=== PATIENT | female | born 1955 | race Caucasian/White ===

== ENCOUNTER 2022-10-26 07:26 | Day surgery (SDC) | payer MEDICARE, SELFPAY ==
[2022-10-26 08:29] VITALS: BP 143/75; PULSE 59; RESP 16; TEMP 36.2
[2022-10-26 08:59] VITALS: BP 149/66; PULSE 55; RESP 20; O2SAT 97
[2022-10-26] MEDS: LIDOCAINE HCL 2% PF 100 MG/5 ML VIAL INJ (09:00)
[2022-10-26] MEDS: BUPIVACAINE HCL 0.25% PF 25 MG/10 ML VIAL INJ (09:00)
[2022-10-26] MEDS: 0.9 % SODIUM CHLORIDE 10 ML SYRINGE - SALINE FLUSH INJ (09:00)
[2022-10-26] MEDS: IOHEXOL 240 MG/ML - 10 ML VIAL INJ (09:00)
[2022-10-26] MEDS: METHYLPREDNISOLONE ACETATE 40 MG/ML VIAL INJ (09:04)
[2022-10-26 09:06] VITALS: BP 136/65; PULSE 51; RESP 20; O2SAT 92
--- NOTE | 2022-10-26 11:30 | W.PM.PROCNOT ---
Date of procedure: 10/26/22 Procedure: Procedure:Bilateral Hip joint injection Pre & postoperative diagnosis: pain secondary to bilateral hip osteoarthritis. Immediate complications none. Anesthesia: 2% lidocaine plain for skin wheal. After informed consent was obtained, patient brought to the OR placed in the supine position.? Skin overlying the area was prepped and draped using betadine. 25-gauge 1/2 inch needle was used for skin wheal over the medial aspect of the joint identified under fluoroscopy.? Omnipaque dye was used to confirm needle tip placement within the hip joint space 0.5 mL use of the injection.? Subsequently Depomedrol 40mg and Marcaine 0.25% 4ml was injected into the space.? No indication of intravascular or intraneuronal? needle tip placement or injection was noted post procedure.? The needle was removed, patient transferred to Recovery room in stable condition to discharged home after? meeting criteria. Anesthesia: Local Surgeon: Varun Vicente Condition: stable
== END 2022-10-26 09:07 | disposition home or self-care (01) ==
PROVIDERS: PCP Nurse Practitioner Family; Visit Provider Anesthesiology Pain Medicine
DX: M16.0 Bilateral primary osteoarthritis of hip (principal); M25.551 Pain in right hip; M25.552 Pain in left hip
CPT/HCPCS: 20610; 77002; J1030; Q9966

== ENCOUNTER 2022-11-18 14:06 | Outpatient (OUT) | payer MEDICARE, SELFPAY ==
--- NOTE | 2022-11-18 14:19 | P.CN_ITS ---
Consult Note: HPI Data of Consult Patient: known to practice within the last 3 years Consult date: 11/18/22 Requesting Physician: DARÍO MATTHEWS NP Primary Care Provider: POLO SILVA Consult Narrative Narrative: Patient is here for f/u of bilat hip injection on 10/26/22 . She received 80% relief of pain for 9 days . Pain is back to baseline. Pain 5/10. She also has thoracic/lumbar back pain worse with position change, and stiffness. Pain radiates down right leg with numbness to outer leg. No MRI on file. Will order MRI today. She declines ortho referral for hips at this time. No new sensorimotor sx or bowel or bladder issues. Medication regimen is controlling pain and assisting patient with ability to perform ADLs. cc:: CC: DARÍO MATTHEWS NP Review of Systems ROS Status of ROS 10 or more systems reviewed and unremarkable except as noted in history and below Musculoskeletal Reports: back pain and joint pain PFSH PFSH Medical History Surgical History Meds Home Medications and Allergies Home Medications Medication Instructions Recorded Confirmed Type albuterol sulfate 90 mcg/actuation 2 inh inhalation Q6H 10/21/22 10/26/22 History breath activated powder inhaler aripiprazole 30 mg tablet (Abilify) 30 mg PO QDAY 10/21/22 10/26/22 History aspirin 81 mg capsule 81 mg PO QDAY 10/21/22 10/26/22 History diclofenac sodium 50 mg 50 mg PO BID 10/21/22 10/26/22 History tablet,delayed release ferrous sulfate 325 mg (65 mg 325 mg PO BID 10/21/22 10/26/22 History iron) tablet (Feosol) fluoxetine 40 mg capsule (Prozac) 80 mg PO QDAY 10/21/22 10/26/22 History hydroxyzine HCl 25 mg tablet 25 mg PO BID PRN unknown 10/21/22 10/26/22 History levothyroxine 50 mcg tablet 50 mcg PO QDAY 10/21/22 10/26/22 History (Euthyrox) magnesium oxide 400 mg PO QDAY 10/21/22 10/26/22 History metoprolol tartrate 25 mg tablet 25 mg PO BID 10/21/22 10/26/22 History omeprazole 40 mg capsule,delayed 40 mg PO BID 10/21/22 10/26/22 History release oxycodone-acetaminophen 5 mg-325 1 tab PO QDAY PRN pain 10/21/22 10/26/22 History mg tablet potassium chloride 10 mEq 10 meq PO BID 10/21/22 10/26/22 History tablet,extended release (K-Tab) ropinirole 1 mg tablet 1 mg PO QDAY 10/21/22 10/26/22 History vitamins A,C,V-fusq-vzyltj 4,296 1 cap PO BID 10/21/22 10/26/22 History mcg-226 mg-90 mg capsule (ICaps AREDS) Allergies Allergy/AdvReac Type Severity Reaction Status Date / Time No Known Drug Allergies Allergy Verified 10/20/22 15:00 Exam Constitutional Documenting provider has reviewed patient's vital signs: yes Common normals: no apparent distress, average body habitus, oriented x3, healthy appearing, alert and well nourished General appearance: cooperative, comfortable and well developed Orientation/consciousness: Yes awake, Yes oriented to person, Yes oriented to pl eddy and Yes oriented to time HENMT Common normals: normocephalic and moist oral mucous membranes Respiratory Common normals: normal respiratory effort and no retractions Effort & inspection: able to speak in complete sentences and symmetric chest movement Back & Pelvis Thoracic spine/upper back: normal to inspection, pain with ROM, paraspinal muscle tenderness and paraspinal muscle spasm Lumbar spine/lower back: normal to inspection, ROM limited, pain with ROM, paraspinal muscle tenderness and paraspinal muscle spasm Other: positive bilat facet loading muscle strength 4/5 bilat LE with intact sensation Extremity Common normals: normal to inspection, normal capillary refill and no pedal edema Right lower extremity: hip joint Right hip: palpation (pain on trochanteric palpation) and ROM (limited d/t pain) Left lower extremity: hip joint Left hip: palpation (pain with palpation) and ROM (limited d/t pain) Assessment and Plan Assessment and Plan (1) Lumbar radiculopathy: (2) Muscle spasm: (3) Lumbar spondylosis: (4) Thoracic spondylosis: Plan thoracic/ lumbar MRI without contrast refill given percocet
== END 2022-11-18 14:07 | disposition home or self-care (01) ==
PROVIDERS: PCP Nurse Practitioner Family; Visit Provider Nurse Practitioner
DX: M47.26 Other spondylosis with radiculopathy, lumbar region (principal); M62.838 Other muscle spasm; M47.814 Spondylosis without myelopathy or radiculopathy, thoracic region
CPT/HCPCS: G0463

== ENCOUNTER 2022-12-30 12:58 | Outpatient (OUT) | payer MEDICARE, SELFPAY ==
[2022-12-30 13:16] VITALS: BP 147/75; PULSE 62; RESP 18; TEMP 36.4; O2SAT 92
--- NOTE | 2022-12-30 13:16 | PC.NURSE ---
1316: Pt. to [facility] amb. per self. Relays going to lab for ordered blood test prior to administration. VSS. #22 gauge IV initiated to right hand on first attempt. Flushes easily without redness or edema. Pt. tolerates without c/o. Pt. given water and warm blanket. Denies needs or c/o.
[2022-12-30 13:31] LABS: Calcium 8.7 mg/dL (8.5-10.1); Estimated GFR (African America >60 (>=60); Estimated GFR (Non-African Ame 53 (>=60)
[2022-12-30] MEDS: ZOLEDRONIC ACID/MANNITOL-WATER 5 MG/100 ML BOTTLE 400 MG IV (13:47)
--- NOTE | 2022-12-30 13:47 | PC.NURSE ---
Labs WNL. IV Reclast initiated at this time. Pt. without c/o.
--- NOTE | 2022-12-30 14:07 | PC.NURSE ---
IV Reclast completed at this time. IV d/c'd, pressure to site. Denies reactions to Reclast from past infusions. Pt. d/c'd amb. to home per. self.
== END 2022-12-30 12:59 | disposition home or self-care (01) ==
PROVIDERS: PCP Nurse Practitioner Family; Visit Provider Family Medicine
DX: M81.0 Age-related osteoporosis without current pathological fracture (principal)
CPT/HCPCS: 36415; 82310; 82565; 96365; J3489

== ENCOUNTER 2023-01-23 18:45 | Emergency (ER) | payer MEDICARE, SELFPAY ==
[2023-01-23 18:48] VITALS: BP 162/80; PULSE 57; RESP 26; TEMP 36.4; O2SAT 98
--- NOTE | 2023-01-23 19:10 | ED_ITS ---
HPI - General Adult General Chief complaint: Headache Stated complaint: HEADACHE Time Seen by Provider: 01/23/23 19:10 Source: patient Mode of arrival: walk-in History of Present Illness HPI narrative: Patient presents to emergency department complaining of a migraine headache. She states she has a history of migraines. This feels exactly like her previous migraines. The migraine started and then occipital area gradual onset on Tuesday. She has been taking Tylenol without any relief. She complains of nausea denies any vomiting. She has photophobia. She denies any fever, chills, or cough. She denies any chest pain, shortness of breath. She has not seen a neurologist in a while but used to see Dr. Grant. Her primary care doctor is Su Silva.There is no change in character of the migraine. Related Data Home Medications Medication Instructions Recorded Confirmed albuterol sulfate 90 mcg/actuation 2 inh inhalation Q6H 10/21/22 10/26/22 breath activated powder inhaler aripiprazole 30 mg tablet (Abilify) 30 mg PO QDAY 10/21/22 10/26/22 aspirin 81 mg capsule 81 mg PO QDAY 10/21/22 01/23/23 diclofenac sodium 50 mg 50 mg PO BID 10/21/22 10/26/22 tablet,delayed release ferrous sulfate 325 mg (65 mg 325 mg PO BID 10/21/22 10/26/22 iron) tablet (Feosol) fluoxetine 40 mg capsule (Prozac) 80 mg PO QDAY 10/21/22 10/26/22 hydroxyzine HCl 25 mg tablet 25 mg PO BID PRN unknown 10/21/22 10/26/22 levothyroxine 50 mcg tablet 50 mcg PO QDAY 10/21/22 10/26/22 (Euthyrox) magnesium oxide 400 mg PO QDAY 10/21/22 10/26/22 metoprolol tartrate 25 mg tablet 25 mg PO BID 10/21/22 10/26/22 omeprazole 40 mg capsule,delayed 40 mg PO BID 10/21/22 10/26/22 release oxycodone-acetaminophen 5 mg-325 1 tab PO QDAY PRN pain 10/21/22 10/26/22 mg tablet potassium chloride 10 mEq 10 meq PO BID 10/21/22 10/26/22 tablet,extended release (K-Tab) ropinirole 1 mg tablet 1 mg PO QDAY 10/21/22 10/26/22 vitamins A,C,Y-sbjj-qibsvs 4,296 1 cap PO BID 10/21/22 10/26/22 mcg-226 mg-90 mg capsule (ICaps AREDS) Allergies Allergy/AdvReac Type Severity Reaction Status Date / Time sumatriptan [From Imitrex] Allergy Severe Verified 01/23/23 18:53 Review of Systems ROS Status of ROS 10 or more systems reviewed and unremarkable except as noted in history and below [facility] Medical History Surgical History Exam Narrative Exam Narrative: Nurses notes and vital signs reviewed and patient is not hypoxic. General: Nontoxic, Well-appearing and in no apparent distress. Skin: Warm, dry, no pallor noted. No Rash Head: Normocephalic, atraumatic. Neck: Supple, non-tender. Eye: Pupils are equal, round and EOMI. No scleral icterus. Ears, Nose, Mouth, and Throat: TM clear, no posterior oropharynx erythema or nasal mucosal hypertrophy, uvula is mid-line Oral mucosa is moist Cardiovascular: Regular Rate and Rhythm without murmur, gallop or rub. Respiratory: No accessory muscle use or respiratory distress. Lungs are clear to auscultation, no wheezing, rales or rhonchi Chest Wall: no tenderness Back: No midline thoracic or lumbar vertebral tenderness. No CVA tenderness Musculoskeletal: normal ROM, no calf or popliteal tenderness, no lower extremity edema/swelling GI: Abdomen is soft, non-distended. Normal bowel sounds. No masses appreciated. No tenderness to palpation. No rebound, guarding, or rigidity noted. Neurological: A&O x4. No cranial nerve dysfunction observed. No truncal ataxia. Moves all extremities. Sensation intact. Psychiatric: Cooperative and interactive. Normal mood and affect. Constitutional Vital Signs, click to edit/add: Last Vital Signs Temp 97.5 F L 01/23/23 18:48 Pulse 51 L 01/23/23 20:25 Resp 18 01/23/23 20:25 BP 158/80 H 01/23/23 20:25 Pulse Ox 100 01/23/23 20:25 O2 Del Method Room Air 01/23/23 18:57 Course Vital Signs Vital signs: Vital Signs Temperature 97.5 F L 01/23/23 18:48 Pulse Rate 57 L 01/23/23 18:48 Respiratory Rate 26 H 01/23/23 18:48 Blood Pressure 162/80 H 01/23/23 18:48 Pulse Oximetry 98 01/23/23 18:48 Oxygen Delivery Method Room Air 01/23/23 18:48 Temperature 97.5 F L 01/23/23 18:48 Pulse Rate 51 L 01/23/23 20:25 Respiratory Rate 18 01/23/23 20:25 Blood Pressure 158/80 H 01/23/23 20:25 Pulse Oximetry 100 01/23/23 20:25 Oxygen Delivery Method Room Air 01/23/23 18:57 Medical Decision Making MDM Narrative Medical decision making narrative: pt was given Phenergan, Norflex, and Toradol. Patient's symptoms improved she was still feeling migraine. Orders was checked and the patient normally gets 30 norco monthly. She has not gotten her refill in the last week. Patient was given a Stephenson here and one pill to take throughout the night at home. She felt better. She will follow up with primary care doctor. At this time the patient is without objective evidence of an acute process requiring hospitalization or inpatient management. The patient has remained hemodynamically stable. No additional indication for emergent studies at this time. I answered all questions. Discussed discharge instructions including standard anticipatory guidance and what should prompt a return to the emergency department, including if they get worse are not getting better or develops any new or concerning symptoms. I've given them specific time frame in which to follow-up, and who to follow-up with. The patient demonstrates understanding. Patient is nontoxic and stable for discharge with outpatient follow-up. This note was created with the assistance of a speech recognition program. A lthough the intention is to generate documents that actually reflects the content of the visit, no guarantees can be provided that every mistake has been identified and corrected by editing. Discharge Plan Discharge Chief Complaint: Headache Clinical Impression: Migraine Patient Disposition: Home, Self-Care Time of Disposition Decision: 20:43 Condition: Good Mode of Transportation: Private Vehicle Prescriptions / Home Meds: No Action aspirin 81 mg capsule 81 mg PO QDAY aripiprazole [Abilify] 30 mg tablet 30 mg PO QDAY fluoxetine [Prozac] 40 mg capsule 80 mg PO QDAY magnesium oxide 400 mg magnesium capsule 400 mg PO QDAY potassium chloride [K-Tab] 10 mEq tablet extended release 10 meq PO BID ICaps AREDS 4,296 mcg-226 mg-90 mg capsule 1 cap PO BID omeprazole 40 mg capsule,delayed release(DR/EC) 40 mg PO BID ropinirole 1 mg tablet 1 mg PO QDAY albuterol sulfate 90 mcg/actuation aerosol powdr breath activated 2 inh inhalation Q6H diclofenac sodium 50 mg tablet,delayed release (DR/EC) 50 mg PO BID ferrous sulfate [Feosol] 325 mg (65 mg iron) tablet 325 mg PO BID hydroxyzine HCl 25 mg tablet 25 mg PO BID PRN (Reason: unknown) levothyroxine [Euthyrox] 50 mcg tablet 50 mcg PO QDAY metoprolol tartrate 25 mg tablet 25 mg PO BID oxycodone-acetaminophen 5-325 mg tablet 1 tab PO QDAY PRN (Reason: pain) Instructions: Migraine Headache (ED) Stand Alone Forms: Portal Instructions Referrals: POLO SILVA [Primary Care Provider] - 1 week
[2023-01-23 19:25] VITALS: BP 150/70; O2SAT 95
[2023-01-23] MEDS: PROMETHAZINE HCL 25 MG/ML VIAL IM (19:42)
[2023-01-23] MEDS: ORPHENADRINE 60 MG/ 2 ML VIAL IM (19:42)
[2023-01-23] MEDS: KETOROLAC TROMETHAMINE 60 MG/2 ML VIAL IM (19:42)
[2023-01-23 20:25] VITALS: BP 158/80; PULSE 51; RESP 18; O2SAT 100
== END 2023-01-23 21:20 | disposition home or self-care (01) ==
PROVIDERS: Emergency Provider Emergency Medicine; PCP Nurse Practitioner Family
DX: G43.909 Migraine, unspecified, not intractable, without status migrainosus (principal); Z79.899 Other long term (current) drug therapy; Z79.82 Long term (current) use of aspirin
CPT/HCPCS: 96372; 99284

== ENCOUNTER 2023-01-25 04:44 | Emergency (ER) | payer MEDICARE, SELFPAY ==
[2023-01-25 04:49] VITALS: BP 110/80; PULSE 55; RESP 16; TEMP 36.4; O2SAT 99; BMI 32.9
--- NOTE | 2023-01-25 05:08 | ED.GENADUL1 ---
HPI - General Adult General Chief complaint: Headache Stated complaint: headache Time Seen by Provider: 01/25/23 04:58 Source: patient Mode of arrival: walk-in History of Present Illness HPI narrative: Patient presents to emergency department complaining of a headache. Patient states has a history of migraines. Patient was seen and evaluated by me on Tuesday for migraine. Patient states migraine went down to 6 and she felt better. however It has increased to a level which she cannot tolerate at home.She states she had a [place] to use reported to help throughout the day but it is 2:00 it has intensified. The patient is nauseated. She has photophobia. She states this is the exact same character as her regular migraines. She took her regular Tylenol prior to coming to the emergency department. She states it made her more nauseated but she has not vomited. The patient denies any fever, chills, or cough. Denies any paresthesias, or weakness. Patient states she is not able to go to work today. She is following up with Su Silva today. Related Data Home Medications Medication Instructions Recorded Confirmed albuterol sulfate 90 mcg/actuation 2 inh inhalation Q6H 10/21/22 10/26/22 breath activated powder inhaler aripiprazole 30 mg tablet (Abilify) 30 mg PO QDAY 10/21/22 10/26/22 aspirin 81 mg capsule 81 mg PO QDAY 10/21/22 01/23/23 diclofenac sodium 50 mg 50 mg PO BID 10/21/22 10/26/22 tablet,delayed release ferrous sulfate 325 mg (65 mg 325 mg PO BID 10/21/22 10/26/22 iron) tablet (Feosol) fluoxetine 40 mg capsule (Prozac) 80 mg PO QDAY 10/21/22 10/26/22 hydroxyzine HCl 25 mg tablet 25 mg PO BID PRN unknown 10/21/22 10/26/22 levothyroxine 50 mcg tablet 50 mcg PO QDAY 10/21/22 10/26/22 (Euthyrox) magnesium oxide 400 mg PO QDAY 10/21/22 10/26/22 metoprolol tartrate 25 mg tablet 25 mg PO BID 10/21/22 10/26/22 omeprazole 40 mg capsule,delayed 40 mg PO BID 10/21/22 10/26/22 release oxycodone-acetaminophen 5 mg-325 1 tab PO QDAY PRN pain 10/21/22 10/26/22 mg tablet potassium chloride 10 mEq 10 meq PO BID 10/21/22 10/26/22 tablet,extended release (K-Tab) ropinirole 1 mg tablet 1 mg PO QDAY 10/21/22 10/26/22 vitamins A,C,R-cwep-hnemmv 4,296 1 cap PO BID 10/21/22 10/26/22 mcg-226 mg-90 mg capsule (ICaps AREDS) Allergies Allergy/AdvReac Type Severity Reaction Status Date / Time sumatriptan [From Imitrex] Allergy Severe Verified 01/23/23 18:53 Review of Systems ROS Status of ROS 10 or more systems reviewed and unremarkable except as noted in history and below [facility] Medical History Surgical History Social History Smoking status: Former smoker Exam Narrative Exam Narrative: Nurses notes and vital signs reviewed and patient is not hypoxic. General: Nontoxic, Well-appearing and in no apparent distress. Skin: Warm, dry, no pallor noted. No Rash Head: Normocephalic, atraumatic. Neck: Supple, non-tender. Eye: Pupils are equal, round and EOMI. No scleral icterus. Ears, Nose, Mouth, and Throat: TM clear, no posterior oropharynx erythema or nasal mucosal hypertrophy, uvula is mid-line Oral mucosa is moist Cardiovascular: Regular Rate and Rhythm without murmur, gallop or rub. Respiratory: No accessory muscle use or respiratory distress. Lungs are clear to auscultation, no wheezing, rales or rhonchi Chest Wall: no tenderness Back: No midline thoracic or lumbar vertebral tenderness. No CVA tenderness Musculoskeletal: Kyphosis,normal ROM, no calf or popliteal tenderness, no lower extremity edema/swelling GI: Abdomen is soft, non-distended. Normal bowel sounds. No tenderness to palpation. No rebound, guarding, or rigidity noted. Neurological: A&O x4. No cranial nerve dysfunction observed. No truncal ataxia. Moves all extremities. Sensation intact. Psychiatric: Cooperative and interactive. Normal mood and affect. Constitutional Vital Signs, click to edit/add: Last Vital Signs Temp 97.6 F 01/25/23 04:49 Pulse 55 L 01/25/23 04:49 Resp 16 01/25/23 04:49 BP 110/80 01/25/23 04:49 Pulse Ox 99 01/25/23 04:49 O2 Del Method Room Air 01/25/23 04:49 Course Vital Signs Vital signs: Vital Signs Temperature 97.6 F 01/25/23 04:49 Pulse Rate 55 L 01/25/23 04:49 Respiratory Rate 16 01/25/23 04:49 Blood Pressure 110/80 01/25/23 04:49 Pulse Oximetry 99 01/25/23 04:49 Oxygen Delivery Method Room Air 01/25/23 04:49 Temperature 97.6 F 01/25/23 04:49 Pulse Rate 55 L 01/25/23 04:49 Respiratory Rate 16 01/25/23 04:49 Blood Pressure 110/80 01/25/23 04:49 Pulse Oximetry 99 01/25/23 04:49 Oxygen Delivery Method Room Air 01/25/23 04:49 Medical Decision Making MDM Narrative Medical decision making narrative: Patient's 2nd visit to the emergency department for intractable migraine. This time I will give from injection of Phenergan, and Dilaudid. The patient has improved. She will be given 2 days off work. I advised the patient that I would not give her an prescription for narcotics as she will have to obtain her monthly prescription from her primary care doctor. At this time the patient is without objective evidence of an acute process requiring hospitalization or inpatient management. The patient has remained hemodynamically stable. No additional indication for emergent studies at this time. I answered all questions. Discussed discharge instructions including standard anticipatory guidance and what should prompt a return to the emergency department, including if they get worse are not getting better or develops any new or concerning symptoms. I've given them specific time frame in which to follow-up, and who to follow-up with. The patient demonstrates understanding. Patient is nontoxic and stable for discharge with outpatient follow-up. This note was created with the assistance of a speech recognition program. Although the intention is to generate documents that actually reflects the content of the visit, no guarantees can be provided that every mistake has been identified and corrected by editing. Medical Records Medical records reviewed: Yes I reviewed the patient's medical records Discharge Plan Discharge Chief Complaint: Headache Clinical Impression: Migraine Patient Disposition: Home, Self-Care Time of Disposition Decision: 05:09 Condition: Good Mode of Transportation: Private Vehicle Prescriptions / Home Meds: No Action aspirin 81 mg capsule 81 mg PO QDAY aripiprazole [Abilify] 30 mg tablet 30 mg PO QDAY fluoxetine [Prozac] 40 mg capsule 80 mg PO QDAY magnesium oxide 400 mg magnesium capsule 400 mg PO QDAY potassium chloride [K-Tab] 10 mEq tablet extended release 10 meq PO BID ICaps AREDS 4,296 mcg-226 mg-90 mg capsule 1 cap PO BID omeprazole 40 mg capsule,delayed release(DR/EC) 40 mg PO BID ropinirole 1 mg tablet 1 mg PO QDAY albuterol sulfate 90 mcg/actuation aerosol powdr breath activated 2 inh inhalation Q6H diclofenac sodium 50 mg tablet,delayed release (DR/EC) 50 mg PO BID ferrous sulfate [Feosol] 325 mg (65 mg iron) tablet 325 mg PO BID hydroxyzine HCl 25 mg tablet 25 mg PO BID PRN (Reason: unknown) levothyroxine [Euthyrox] 50 mcg tablet 50 mcg PO QDAY metoprolol tartrate 25 mg tablet 25 mg PO BID oxycodone-acetaminophen 5-325 mg tablet 1 tab PO QDAY PRN (Reason: pain) Instructions: Migraine Headache (ED) Stand Alone Forms: Portal Instructions Referrals: POLO SILVA [Primary Care Provider] - 1 week
[2023-01-25] MEDS: HYDROMORPHONE HCL 1 MG/ML CARTRIDGE IM (05:25)
[2023-01-25] MEDS: PROMETHAZINE HCL 25 MG/ML VIAL IM (05:26)
== END 2023-01-25 05:32 | disposition home or self-care (01) ==
PROVIDERS: Emergency Provider Emergency Medicine; PCP Nurse Practitioner Family
DX: G43.909 Migraine, unspecified, not intractable, without status migrainosus (principal); Z79.899 Other long term (current) drug therapy; Z79.890 Hormone replacement therapy; Z87.891 Personal history of nicotine dependence
CPT/HCPCS: 96372; 99284; J1170

== ENCOUNTER 2023-01-26 12:17 | Outpatient (OUT) | payer MEDICARE, SELFPAY ==
--- NOTE | 2023-01-26 12:34 | P.CN_ITS ---
Consult Note: HPI Data of Consult Patient: known to practice within the last 3 years Requesting Physician: Shweta Crowley NP Primary Care Provider: POLO SILVA Consult Narrative Reason for consult: f/u Narrative: Mary Vick a pleasant 67 year old female presents for evaluation and management of chronic back and bilaterla hip pain. Today rating pain 5/10 in bilateral hips and back. Patient had not followed up with previous care plan of PT and MRI. cc:: CC: Shweta Crowley NP Review of Systems ROS Status of ROS 10 or more systems reviewed and unremarkable except as noted in h istory and below Musculoskeletal Reports: back pain and joint pain PFSH PFSH Medical History Surgical History Social History Smoking status: Former smoker Meds Home Medications and Allergies Home Medications Medication Instructions Recorded Confirmed Type albuterol sulfate 90 mcg/actuation 2 inh inhalation Q6H 10/21/22 10/26/22 Hist ory breath activated powder inhaler aripiprazole 30 mg tablet (Abilify) 30 mg PO QDAY 10/21/22 10/26/22 History aspirin 81 mg capsule 81 mg PO QDAY 10/21/22 01/23/23 History diclofenac sodium 50 mg 50 mg PO BID 10/21/22 10/26/22 History tablet,delayed release ferrous sulfate 325 mg (65 mg 325 mg PO BID 10/21/22 10/26/22 History iron) tablet (Feosol) fluoxetine 40 mg capsule (Prozac) 80 mg PO QDAY 10/21/22 10/26/22 History hydroxyzine HCl 25 mg tablet 25 mg PO BID PRN unknown 10/21/22 10/26/22 History levothyroxine 50 mcg tablet 50 mcg PO QDAY 10/21/22 10/26/22 History (Euthyrox) magnesium oxide 400 mg PO QDAY 10/21/22 10/26/22 History metoprolol tartrate 25 mg tablet 25 mg PO BID 10/21/22 10/26/22 History omeprazole 40 mg capsule,delayed 40 mg PO BID 10/21/22 10/26/22 History release oxycodone-acetaminophen 5 mg-325 1 tab PO QDAY PRN pain 10/21/22 10/26/22 History mg tablet potassium chloride 10 mEq 10 meq PO BID 10/21/22 10/26/22 History tablet,extended release (K-Tab) ropinirole 1 mg tablet 1 mg PO QDAY 10/21/22 10/26/22 History vitamins A,C,C-wwjt-taxlzs 4,296 1 cap PO BID 10/21/22 10/26/22 History mcg-226 mg-90 mg capsule (ICaps AREDS) Allergies Allergy/AdvReac Type Severity Reaction Status Date / Time sumatriptan [From Imitrex] Allergy Severe Verified 01/23/23 18:53 Exam Constitutional Documenting provider has reviewed patient's vital signs: yes Common normals: no apparent distress, oriented x3, healthy appearing, alert and well nourished General appearance: cooperative HENMT Common normals: normocephalic, hearing grossly normal bilaterally and moist oral mucous membranes Head and scalp: normocephalic Eye Common normals: PERRL Pupil: PERRL Neck & C-Spine Common normals: full ROM General: normal visual inspection Chest Common normals: inspection of chest normal Respiratory Common normals: normal respiratory effort, no retractions and no use of accessory muscles Back & Pelvis Lumbar spine/lower back: ROM limited, pain with ROM and straight leg raise negative bilaterally Sacroiliac joints: SI joint(s) abnormal (bilateral positive FABERs) Extremity Common normals: normal to inspection and full ROM Right lower extremity: hip joint Left lower extremity: hip joint Other: bilateral hip pain, pain with weight bearing Neuro Common normals: oriented x3, CN's II-XII intact bilaterally, moves all extremities, no focal motor deficits, no sensory deficits noted and deep tendon reflexes 2+ bilaterally Sensorium/orientation: alert Gait (neuro): antalgic Motor exam: strength 5/5 throughout and no movement abnormalities noted Psych Common normals: mental status grossly normal, thought process normal, cooperative, affect normal, speech normal and activity/motor behavior normal Speech: normal speech Thought process: normal thought process Results Additional Findings Additional findings: I have checked an [place]AR[place] report on this patient today and there are no aberrancies noted in the prescribing history.?? A drug screen was completed and reviewed within the last year, and if there has not been a drug screen completed we ordered one today to monitor higher risk, state monitored pain medication use. As part of providing excellent, safe, comprehensive care, the following was completed at our patient's visit: 1. A medication reconciliation and review to ensure accurate knowledge of curr ent/active medications, including asking our patients to inform us about any vesp-mup-sjrzjvy medications or herbal remedies/nutritional supplements/alternative remedies. 2. A review to specifically ensure our patients have had annual screening for: elevated body mass index (BMI), tobacco use, screening for depression, and screening for unhealthy alcohol use. When screening is concerning, patients are provided with education and the specific recommendation to discuss the concerning health issue and treatment options with their primary care provider. Assessment and Plan Assessment and Plan (1) Thoracic spondylosis: (2) Lumbar spondylosis: (3) Muscle spasm: (4) Bilateral sacroiliitis: Plan start PT for back and bilateral hip pain and strengthening thoracic and lumbar MRI after completion of PT refill and continue percocet 5-325mg PO QD PRN narcan discussed and prescribed f/u 2 months
--- NOTE | 2023-01-26 13:33 | P.CN_ITS ---
Consult Note: HPI Data of Consult Requesting Physician: Shweta Crowley NP Primary Care Provider: POLO SILVA Consult Narrative cc:: CC: Shweta Crowley NP Review of Systems ROS Status of ROS 10 or more systems reviewed and unremarkable except as noted in history and below Musculoskeletal Reports: back pain and joint pain [facility] Medical History Surgical History Social History Smoking status: Former smoker Meds Home Medications and Allergies Home Medications Medication Instructions Recorded Confirmed Type albuterol sulfate 90 mcg/actuation 2 inh inhalation Q6H 10/21/22 10/26/22 History breath activated powder inhaler aripiprazole 30 mg tablet (Abilify) 30 mg PO QDAY 10/21/22 10/26/22 History aspirin 81 mg capsule 81 mg PO QDAY 10/21/22 01/23/23 History diclofenac sodium 50 mg 50 mg PO BID 10/21/22 10/26/22 History tablet,delayed release ferrous sulfate 325 mg (65 mg 325 mg PO BID 10/21/22 10/26/22 History iron) tablet (Feosol) fluoxetine 40 mg capsule (Prozac) 80 mg PO QDAY 10/21/22 10/26/22 History hydroxyzine HCl 25 mg tablet 25 mg PO BID PRN unknown 10/21/22 10/26/22 History levothyroxine 50 mcg tablet 50 mcg PO QDAY 10/21/22 10/26/22 History (Euthyrox) magnesium oxide 400 mg PO QDAY 10/21/22 10/26/22 History metoprolol tartrate 25 mg tablet 25 mg PO BID 10/21/22 10/26/22 History omeprazole 40 mg capsule,delayed 40 mg PO BID 10/21/22 10/26/22 History release oxycodone-acetaminophen 5 mg-325 1 tab PO QDAY PRN pain 10/21/22 10/26/22 History mg tablet potassium chloride 10 mEq 10 meq PO BID 10/21/22 10/26/22 History tablet,extended release (K-Tab) ropinirole 1 mg tablet 1 mg PO QDAY 10/21/22 10/26/22 History vitamins A,C,A-klve-vytoha 4,296 1 cap PO BID 10/21/22 10/26/22 History mcg-226 mg-90 mg capsule (ICaps AREDS) Allergies Allergy/AdvReac Type Severity Reaction Status Date / Time sumatriptan [From Imitrex] Allergy Severe Verified 01/23/23 18:53 Exam Constitutional Documenting provider has reviewed patient's vital signs: yes Common normals: no apparent distress, oriented x3, healthy appearing, alert and well nourished HENMT Common normals: normocephalic, hearing grossly normal bilaterally and moist oral mucous membranes Head and scalp: normocephalic Eye Common normals: PERRL Pupil: PERRL Neck & C-Spine Common normals: full ROM General: normal visual inspection Chest Common normals: inspection of chest normal Respiratory Common normals: normal respiratory effort, no retractions and no use of accessory muscles Back & Pelvis Lumbar spine/lower back: ROM limited, pain with ROM and straight leg raise negative bilaterally Sacroiliac joints: SI joint(s) abnormal (bilateral positive FABERs) Extremity Common normals: normal to inspection and full ROM Right lower extremity: hip joint Left lower extremity: hip joint Other: bilateral hip pain, pain with weight bearing Neuro Common normals: oriented x3, CN's II-XII intact bilaterally, moves all extremities, no focal motor deficits, no sensory deficits noted and deep tendon reflexes 2+ bilaterally Sensorium/orientation: alert Gait (neuro): antalgic Motor exam: strength 5/5 throughout and no movement abnormalities noted Psych Common normals: mental status grossly normal, thought process normal, cooperative, affect normal, speech normal and activity/motor behavior normal Speech: normal speech Thought process: normal thought process Assessment and Plan Assessment and Plan (1) Thoracic spondylosis: (2) Lumbar spondylosis: (3) Muscle spasm: (4) Bilateral sacroiliitis: (5) Chronic, continuous use of opioids: Assessment and Plan: I have refilled the patient's opioid prescriptions at the above noted dose and schedule.? I feel these medications are improving the patient's quality of life and allow them to tolerate activities of daily living as well as participate in recreational activity.? The patient does not report intolerable side effects. The patient is NOT opioid naive and non-pharmacologic and non-opioid treatment has failed to significantly relieve the patient's pain and improve functionality. The patient has a diagnosis that is related to a somatic or visceral pain etiology. ? ?? I reviewed with the patient the potential risks and side effects with the use of? opioid medications including but not limited to respiratory depression,? sedation, and even . I verified the patient has access to naloxone should? these effects occur. I advised the patient to avoid the use of any other? sedation substances including alcohol, THC, and benzodiazepines while? taking opioid medications due to the risk of compounding side effects and? detrimental outcomes. I reviewed the [employer], pain treatment agreement, urine? drug screen, and opioid start talking forms. The patient was advised to let? their family know they had Naloxone in case they would need to administer? the medication.? Plan start PT for back and bilateral hip pain and strengthening thoracic and lumbar MRI after completion of PT refill and continue percocet 5-325mg PO QD PRN narcan discussed and prescribed f/u 2 months
== END 2023-01-26 12:18 | disposition home or self-care (01) ==
LOC: PM 12:17
PROVIDERS: PCP Nurse Practitioner Family; Visit Provider Nurse Practitioner
DX: M47.814 Spondylosis without myelopathy or radiculopathy, thoracic region (principal); M47.816 Spondylosis without myelopathy or radiculopathy, lumbar region; M62.838 Other muscle spasm; M46.1 Sacroiliitis, not elsewhere classified; Z79.891 Long term (current) use of opiate analgesic
CPT/HCPCS: G0463

== ENCOUNTER 2023-01-27 17:07 | Outpatient (RCR) | payer MEDICARE, SELFPAY | END 2023-02-25 12:07 | disposition home or self-care (01) | LOC: PT 17:07 | PROVIDERS: PCP Nurse Practitioner Family; Visit Provider Nurse Practitioner | DX: M47.816 Spondylosis without myelopathy or radiculopathy, lumbar region (principal); M54.50 Low back pain, unspecified; M25.551 Pain in right hip; M25.552 Pain in left hip | CPT/HCPCS: 97010; 97110; 97112; 97162 ==

== ENCOUNTER 2023-02-09 10:41 | Outpatient (OUT) | payer MEDICARE, SELFPAY ==
[2023-02-09 11:16] LABS: Basophils Absolute Auto 0.1 10^3/uL (0.0-0.1); Basophils Percent Auto 0.8 % (0.2-2.0); Eosinophils Absolute Auto 0.1 10^3/uL (0.0-0.7); Eosinophils Percent Auto 1.5 % (0.9-7.0); Hematocrit 35.1 % (36.0-48.0); Hemoglobin 10.7 g/dL (12.0-16.0); Immature Granulocytes Abs Auto 0.03 10^3/uL (0.00-0.03); Immature Granulocytes Pct Auto 0.4 % (0.0-0.5); Lymphocytes Absolute Auto 2.2 10^3/uL (1.2-3.8); Lymphocytes Percent Auto 29.2 % (20.5-60.0); Mean Corpuscular HGB Conc 30.5 g/dL (29.9-35.2); Mean Corpuscular Hemoglobin 25.4 pg (26.7-34.0); Mean Corpuscular Volume 83.4 fL (81.0-99.0); Mean Platelet Volume 10.5 fL (9.5-13.5); Monocytes Absolute Auto 0.5 10^3/uL (0.3-0.8); Monocytes Percent Auto 6.1 % (1.7-12.0); Neutrophils Absolute Auto 4.7 10^3/uL (1.4-6.5); Platelet Count 357 10^3/uL (150-450); Red Blood Count 4.21 10^6/uL (4.20-5.40); White Blood Count 7.5 10^3/uL (4.0-11.0)
== END 2023-02-09 10:42 | disposition home or self-care (01) ==
LOC: LAB 10:46
PROVIDERS: PCP Nurse Practitioner Family; Visit Provider Nurse Practitioner Family
DX: R53.83 Other fatigue (principal); E61.1 Iron deficiency
CPT/HCPCS: 36415; 83540; 85025

== ENCOUNTER 2023-03-30 12:53 | Outpatient (OUT) | payer MEDICARE, SELFPAY ==
--- NOTE | 2023-03-30 13:16 | P.CN_ITS ---
Consult Note: HPI Data of Consult Requesting Physician: Shweta Crowley NP Primary Care Provider: POLO SILVA Consult Narrative Reason for consult: f/u Narrative: Mary Vick a pleasant 67 year old female presents for evaluation and management of low back pain. Today rating pain 3-4/10 with pain radiating into bilateral thighs. Patient has recently completed greater than 6 weeks of PT without relief or improvement. Patients previous imaging of thoracic and lumbar spine suggested need for further evaluation with MRI. Patient has been tolerating current medication regimen well without side effects. I would like to pursue thoracic and lumbar MRI without contrast before ordering injection therapy. cc:: CC: Shweta Crowley NP Review of Systems ROS Status of ROS 10 or more systems reviewed and unremarkable except as noted in history and below Musculoskeletal Reports: back pain PFSH PFSH Medical History Surgical History History of appendectomy ?Z90.49 - Acquired absence of other specified parts of digestive tract (ICD- 10) History of hysterectomy ?Z90.710 - Acquired absence of both cervix and uterus (ICD-10) Hx of tubal ligation ?Z98.51 - Tubal ligation status (ICD-10) Social History Smoking status: Former smoker Meds Home Medications and Allergies Home Medications Medication Instructions Recorded Confirmed Type albuterol sulfate 90 mcg/actuation 2 inh inhalation Q6H 10/21/22 10/26/22 History breath activated powder inhaler aripiprazole 30 mg tablet (Abilify) 30 mg PO QDAY 10/21/22 10/26/22 History aspirin 81 mg capsule 81 mg PO QDAY 10/21/22 01/23/23 History diclofenac sodium 50 mg 50 mg PO BID 10/21/22 10/26/22 History tablet,delayed release ferrous sulfate 325 mg (65 mg 325 mg PO BID 10/21/22 10/26/22 History iron) tablet (Feosol) fluoxetine 40 mg capsule (Prozac) 80 mg PO QDAY 10/21/22 10/26/22 History hydroxyzine HCl 25 mg tablet 25 mg PO BID PRN unknown 10/21/22 10/26/22 History levothyroxine 50 mcg tablet 50 mcg PO QDAY 10/21/22 10/26/22 History (Euthyrox) magnesium oxide 400 mg PO QDAY 10/21/22 10/26/22 History metoprolol tartrate 25 mg tablet 25 mg PO BID 10/21/22 10/26/22 History omeprazole 40 mg capsule,delayed 40 mg PO BID 10/21/22 10/26/22 History release oxycodone-acetaminophen 5 mg-325 1 tab PO QDAY PRN pain 10/21/22 10/26/22 History mg tablet potassium chloride 10 mEq 10 meq PO BID 10/21/22 10/26/22 History tablet,extended release (K-Tab) ropinirole 1 mg tablet 1 mg PO QDAY 10/21/22 10/26/22 History vitamins A,C,J-zrzl-cyhngr 4,296 1 cap PO BID 10/21/22 10/26/22 History mcg-226 mg-90 mg capsule (ICaps AREDS) oxycodone-acetaminophen 5 mg-325 1 tab PO Q6H PRN pain #30 tabs 01/26/23 Rx mg tablet (Percocet) oxycodone-acetaminophen 5 mg-325 1 tab PO DAILY PRN pain #30 tabs 02/17/23 Rx mg tablet (Percocet) oxycodone-acetaminophen 5 mg-325 1 tab PO DAILY PRN pain #30 tabs 03/21/23 Rx mg tablet (Percocet) Allergies Allergy/AdvReac Type Severity Reaction Status Date / Time sumatriptan [From Imitrex] Allergy Severe Verified 01/23/23 18:53 Exam Constitutional Documenting provider has reviewed patient's vital signs: yes Common normals: no apparent distress, oriented x3, healthy appearing, alert and well nourished [facility] Common normals: normocephalic, hearing grossly normal bilaterally and moist oral mucous membranes Head and scalp: normocephalic Eye Common normals: PERRL Pupil: PERRL Neck & C-Spine Common normals: full ROM General: normal visual inspection Chest Common normals: inspection of chest normal Respiratory Common normals: normal respiratory effort, no retractions and no use of accessory muscles Back & Pelvis Lumbar spine/lower back: ROM limited, pain with ROM and straight leg raise negative bilaterally Sacroiliac joints: SI joint(s) abnormal (bilateral positive FABERs) Other: weakness and intermittent radiculopathy to bilateral legs Extremity Common normals: normal to inspection and full ROM Right lower extremity: hip joint Left lower extremity: hip joint Other: bilateral hip pain, pain with weight bearing Neuro Common normals: oriented x3, CN's II-XII intact bilaterally, moves all extrem ities, no focal motor deficits, no sensory deficits noted and deep tendon reflexes 2+ bilaterally Sensorium/orientation: alert Gait (neuro): antalgic Motor exam: strength 5/5 throughout and no movement abnormalities noted Psych Common normals: mental status grossly normal, thought process normal, cooperative, affect normal, speech normal and activity/motor behavior normal Speech: normal speech Thought process: normal thought process Assessment and Plan Assessment and Plan (1) Lumbar radiculopathy: (2) Thoracic spondylosis: (3) Lumbar spondylosis: (4) Chronic, continuous use of opioids: (5) Bilateral sacroiliitis: (6) Muscle spasm: Plan MRI of thoracic and lumbar spine without contrast continue current medications f/u after MRI to discuss injection therapy options
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
== END 2023-03-30 12:54 | disposition home or self-care (01) ==
LOC: PM 12:53
PROVIDERS: PCP Nurse Practitioner Family; Visit Provider Nurse Practitioner
DX: M54.16 Radiculopathy, lumbar region (principal); M47.816 Spondylosis without myelopathy or radiculopathy, lumbar region; M47.814 Spondylosis without myelopathy or radiculopathy, thoracic region; Z79.891 Long term (current) use of opiate analgesic; M46.1 Sacroiliitis, not elsewhere classified; M62.838 Other muscle spasm
CPT/HCPCS: G0463

== ENCOUNTER 2023-04-19 07:29 | Outpatient (OUT) | payer MEDICARE, SELFPAY ==
--- NOTE | 2023-04-19 | MR_ITS ---
[address] [address] Patient Name: MELANIE TOMPKINS MRN: [id number] date: 1955 Sex: F Assigned Patient Location: MRI Current Patient Location: MRI Accession/Order Number: [id number] Exam Date: 04/19/2023 07:45 Report Date: 04/19/2023 12:44 At the request of: CRISPIN ZAMAN Procedure: MR thoracic spine wo con EXAM: MRI thoracic spine without contrast, 04/19/2023. HISTORY: Mid and lower back pain. COMPARISON: None. TECHNIQUE: Multiplanar, multisequence MRI imaging of the thoracic spine without contrast. FINDINGS: Alignment is normal. No acute compression fracture. Signal in the bone marrow spaces is appropriate. No suspicious osseous lesions. Mild multilevel degenerative disc disease. No significant disc bulge or focal disc protrusion. No spinal stenosis or foraminal narrowing. There is no spinal cord compression. No abnormal signal in the thoracic spinal cord. No paraspinal mass. Large hiatal hernia. MR/MR thoracic spine wo con IMPRESSION: 1. Mild multilevel degenerative disc disease. 2. No significant spinal stenosis or foraminal narrowing. 3. No acute compression fracture. 4. Large hiatal hernia. Electronically authenticated by: GENTRY RODRIGUEZ Date: 04/19/2023 12:44
--- NOTE | 2023-04-19 | MR_ITS ---
The [address] [address] Patient Name: MELANIE TOMPKINS MRN: [id number] date: 1955 Sex: F Assigned Patient Location: MRI Current Patient Location: Accession/Order Number: [id number] Exam Date: 04/19/2023 07:45 Report Date: 04/19/2023 15:24 At the request of: CRISPIN ZAMAN Procedure: MR lumbar spine wo con EXAM: MRI of the lumbar spine without IV gadolinium contrast. REASON FOR EXAM: spondylosis COMPARISON: None FINDINGS: No lumbar spine fractures, acute malalignment or acute abnormal marrow signal. No spinal canal mass, hematoma or fluid collection. Lumbar spine degenerative changes with with disc protrusions at the L1-L2 and L5-S1 levels. For numbering purposes there are 5 lumbar type vertebral bodies with partial lumbarization of S1. Grade 1 retrolisthesis of L1 on L2. Left T12-L1 nerve root sheath cyst. Mild stenosis of the L5-S1 lateral recesses bilaterally. No other substantial spinal canal stenoses. Mild right L1-L2, L2-L3, L3-L4 and L4-5 neural foraminal stenoses. Moderate to severe right L5-S1 neural foraminal stenosis. Mild left L1-L2, L2-L3 and L3-L4 neural foraminal stenoses. Mild to moderate left L5-S1 neural foraminal stenosis. Remainder unremarkable. MR/MR lumbar spine wo con IMPRESSION: 1. No acute lumbar spine abnormalities. 2. Moderate to severe right L5-S1 neural foraminal stenosis. 3. No moderate or high-grade spinal canal stenoses. Electronically authenticated by: MAYA RUTH Date: 04/19/2023 15:24
== END 2023-04-19 07:30 | disposition home or self-care (01) ==
LOC: MRI 07:30
PROVIDERS: PCP Nurse Practitioner Family; Visit Provider Nurse Practitioner
DX: M47.816 Spondylosis without myelopathy or radiculopathy, lumbar region (principal); M47.814 Spondylosis without myelopathy or radiculopathy, thoracic region; M48.07 Spinal stenosis, lumbosacral region; K44.9 Diaphragmatic hernia without obstruction or gangrene
CPT/HCPCS: 72146; 72148

== ENCOUNTER 2023-05-05 12:48 | Outpatient (OUT) | payer MEDICARE, SELFPAY ==
--- NOTE | 2023-05-05 12:42 | P.CN_ITS ---
Consult Note: HPI Data of Consult Requesting Physician: Shweta Crowley NP Primary Care Provider: POLO SILVA Consult Narrative Reason for consult: f/u Narrative: Mary ware pleasant 67 year old female presents for evaluation and management of low back pain. Today rating pain 4/10 in bilateral low back and bilateral hips, ache and stiffness. Pain is worse with all activity. patient would like to discuss injeciton therapy. Finding mild benefit from current medication regimen but still having functional difficulty and making it harder to complete tasks at work. cc:: CC: Shweta Crowley NP Review of Systems ROS Status of ROS 10 or more systems reviewed and unremark able except as noted in history and below Musculoskeletal Reports: back pain and joint pain PFSH PFSH Medical History Surgical History Hx of tubal ligation ?Z98.51 - Tubal ligation status (ICD-10) History of appendectomy ?Z90.49 - Acquired absence of other specified parts of digestive tract (ICD- 10) History of hysterectomy ?Z90.710 - Acquired absence of both cervix and uterus (ICD-10) Social History Smoking status: Former smoker Meds Home Medications and Allergies Home Medications Medication Instructions Recorded Confirmed Type albuterol sulfate 90 mcg/actuation 2 inh inhalation Q6H 10/21/22 10/26/22 History breath activated powder inhaler aripiprazole 30 mg tablet (Abilify) 30 mg PO QDAY 10/21/22 10/26/22 History aspirin 81 mg capsule 81 mg PO QDAY 10/21/22 01/23/23 History diclofenac sodium 50 mg 50 mg PO BID 10/21/22 10/26/22 History tablet,delayed release ferrous sulfate 325 mg (65 mg 325 mg PO BID 10/21/22 10/26/22 History iron) tablet (Feosol) fluoxetine 40 mg capsule (Prozac) 80 mg PO QDAY 10/21/22 10/26/22 History hydroxyzine HCl 25 mg tablet 25 mg PO BID PRN unknown 10/21/22 10/26/22 History levothyroxine 50 mcg tablet 50 mcg PO QDAY 10/21/22 10/26/22 History (Euthyrox) magnesium oxide 400 mg PO QDAY 10/21/22 10/26/22 History metoprolol tartrate 25 mg tablet 25 mg PO BID 10/21/22 10/26/22 History omeprazole 40 mg capsule,delayed 40 mg PO BID 10/21/22 10/26/22 History release oxycodone-acetaminophen 5 mg-325 1 tab PO QDAY PRN pain 10/21/22 10/26/22 History mg tablet potassium chloride 10 mEq 10 meq PO BID 10/21/22 10/26/22 History tablet,extended release (K-Tab) ropinirole 1 mg tablet 1 mg PO QDAY 10/21/22 10/26/22 History vitamins A,C,V-sarz-wtzjxf 4,296 1 cap PO BID 10/21/22 10/26/22 History mcg-226 mg-90 mg capsule (ICaps AREDS) oxycodone-acetaminophen 5 mg-325 1 tab PO Q6H PRN pain #30 tabs 01/26/23 Rx mg tablet (Percocet) oxycodone-acetaminophen 5 mg-325 1 tab PO DAILY PRN pain #30 tabs 02/17/23 Rx mg tablet (Percocet) oxycodone-acetaminophen 5 mg-325 1 tab PO DAILY PRN pain #30 tabs 03/21/23 Rx mg tablet (Percocet) oxycodone-acetaminophen 5 mg-325 1 tab PO DAILY PRN pain #30 tabs 04/19/23 Rx mg tablet (Percocet) Allergies Allergy/AdvReac Type Severity Reaction Status Date / Time sumatriptan [From Imitrex] Allergy Severe Verified 01/23/23 18:53 Exam Constitutional Documenting provider has reviewed patient's vital signs: yes Common normals: no apparent distress, oriented x3, healthy appearing, alert and well nourished [facility] Common normals: normocephalic, hearing grossly normal bilaterally and moist oral mucous membranes Head and scalp: normocephalic Eye Common normals: PERRL Pupil: PERRL Neck & C-Spine Common normals: full ROM General: normal visual inspection Chest Common normals: inspection of chest normal Respiratory Common normals: normal respiratory effort, no retractions and no use of accessory muscles Back & Pelvis Lumbar spine/lower back: ROM limited, pain with ROM and straight leg raise negative bilaterally Other: predominately axial low back pain no radiculopathy Extremity Common normals: normal to inspection and full ROM Right lower extremity: hip joint Left lower extremity: hip joint Other: bilateral hip pain, pain with weight bearing tender over bilateral GTB Neuro Common normals: oriented x3, CN's II-XII intact bilaterally, moves all extremities, no focal motor deficits, no sensory deficits noted and deep tendon reflexes 2+ bilaterally Sensorium/orientation: alert Gait (neuro): antalgic Motor exam: strength 5/5 throughout and no movement abnormalities noted Psych Common normals: mental status grossly normal, thought process normal, cooperative, affect normal, speech normal and activity/motor behavior normal Speech: normal speech Thought process: normal thought process Assessment and Plan Assessment and Plan (1) Greater trochanteric bursitis of both hips: (2) Chronic, continuous use of opioids: (3) Lumbar spondylosis: (4) Muscle spasm: Plan bilateral GTB injections with Dr Vicente discussed bilateral L4-5 L5-S1 MBB x2 working towards thermal RFA, educational handout provided continue current medications, tolerating well without side effects f/u 1 week after GTB
== END 2023-05-05 12:49 | disposition home or self-care (01) ==
PROVIDERS: PCP Nurse Practitioner Family; Visit Provider Nurse Practitioner
DX: M70.62 Trochanteric bursitis, left hip (principal); M70.61 Trochanteric bursitis, right hip; Z79.891 Long term (current) use of opiate analgesic; M47.816 Spondylosis without myelopathy or radiculopathy, lumbar region; M62.838 Other muscle spasm
CPT/HCPCS: G0463

== ENCOUNTER 2023-05-12 13:45 | Outpatient (OUT) | payer MEDICARE, SELFPAY ==
--- NOTE | 2023-05-12 | CONS_ITS ---
PROCEDURE DATE: 05/12/2023 PROCEDURE: Bilateral greater trochanteric bursa injection. PREOPERATIVE DIAGNOSIS: Pain secondary to bilateral trochanteric bursitis. POSTOPERATIVE DIAGNOSIS: Pain secondary to bilateral trochanteric bursitis. SOLUTION USED FOR INJECTION: 2 mL of 2% lidocaine, 2 mL of 0.25% Marcaine and 20 mg of Kenalog, total of 5 mL, and 5< > (please verify if 5 or 3, as dictated 3 in report below) mL used for the injection at each site. IMMEDIATE COMPLICATIONS: None. PROCEDURE: After informed consent was obtained from the patient, placed in the sitting, flexed forward position. Skin overlying the area was prepped with alcohol. A 25 gauge, 1 ?? needle inserted over the area of the right greater trochanteric bursa, at a point just proximal to the insertion of the right gluteus medius. Needle tip advanced until the bursa was encountered, at which point we injected 3 < > (please verify if 5 or 3, as dictated 5 in ?solution? section above) mL of solution. This was repeated in a similar fashion on the contralateral side. No indication of intravascular or intraneural needle tip placement or injection. Patient reports reduction in pain symptoms post procedurally. NATAN
--- OUTSIDE RECORDS SUMMARY | 2023-05-12 13:49 | XMS_ITS | CCD ---
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 Referral from Natividad Silva NP Normal [facility] HEMOGLOBINon 03-12-2022 Hemoglobin (Bld) [Mass/Vol] 9.2 g/dL Critically low 12.0-16.0 [facility] Comment on above: Performed By: #### A NARF #### [facility] [address] [place] [address] Dr. Deborah Mohan ANTI NEUTROPHIL CYTOPLASMIC AB (ANCA) PRon 03-09-2022 Anti-MPO Antibodies <0.2 Normal 0.0-0.9 [facility] Comment on above: Result Comment: Perf ormed at: BN Performed By: #### B NETWORK SUPPORT ADMINISTRATOR, HSTROPN, CMP #### [facility] [address] [place] [address] Dr. Deborah Mohan Anti-PR3 Antibodies <0.2 Normal 0.0-0.9 [facility] Comment on above: Result Comment: Perf ormed at: BN Performed By: #### B NETWORK SUPPORT ADMINISTRATOR, HSTROPN, CMP #### [facility] [address] [place] [address] Dr. Deborah Mohan Atypical pANCA 1:160 Critically high Neg:<1:20 [facility] Comment on above: Result Comment: The atypical pANCA pattern has been observed in a significant percentage of patients with ulcerative colitis, primary sclerosing cholangitis and autoimmune hepatitis. Performed at: CB Performed By: #### B NETWORK SUPPORT ADMINISTRATOR, HSTROPN, CMP #### [facility] [address] [place] [address] Dr. Deborah Mohan Cytoplasmic (C-ANCA) <1:20 Normal Neg:<1:20 [facility] Comment on above: Result Comment: Perf ormed at: CB Performed By: #### B NETWORK SUPPORT ADMINISTRATOR, HSTROPN, CMP #### [facility] [address] [place] [address] Dr. Deborah Mohan Perinuclear (P-ANCA) <1:20 Normal Neg:<1:20 [facility] Comment on above: Result Comment: The presence of positive fluorescence exhibiting P-ANCA or C-ANCA patterns alone is not specific for the diagnosis of Marlin's Granulomatosis (WG) or microscopic polyangiitis. Decisions about treatment should not be based solely on ANCA IFA results. The International ANCA Group Consensus recommends follow up testing of positive sera with both AL-3 and MPO-ANCA enzyme immunoassays. As many as 5% serum samples are positive only by EIA. Ref. AM J Clin Pathol 1999;111:507-513. Performed at: CB Performed By: #### B NETWORK SUPPORT ADMINISTRATOR, HSTROPN, CMP #### [facility] [address] [place], [place] [address] Dr. Deborah Mohan ANTISCLERODERMA ABon 022 Antiscleroderma-70 Antibodies <0.2 Normal 0.0-0.9 [facility] Comment on above: Performed By: #### A NARF #### [facility] [address] [place], [place] [address] CHEST WO CONon 03-09-2022 CT CHEST WO CON Begin Addendum # 1 Compared to a prior CTA chest study from 11/29/2021, the small groundglass areas in the upper lobes appear essentially stable, favored to represent sequela of infectious/inflammato ry process rather than contusion. Areas of peripheral [...] lobes, could be related to scarring/sequela of infectious/inflammato ry process, less likely minor contusions. No large [...] lobes, could be related to scarring/sequela of infectious/inflammato ry process, less likely minor contusions. No large consolidative process seen to suggest a significant contusion. 3. No pleural effusion or pneumothorax. 4. Prominent pulmonary trunk suggesting the possibility of pulmonary hypertension. 5. Moderate to large hiatal hernia. 6. Other chronic and likely incidental findings, as described above. Normal [facility] CYCLIC CITRULLINATED PEPTIDE AB (CCP)on 03-09-2022 CCP Antibodies IgG/IgA 6 units Normal 0-19 [facility] Comment on above: Result Comment: Nega tive <20 Weak positive 20 - 39 Moderate positive 40 - 59 Strong positive >59 Performed By: #### B NETWORK SUPPORT ADMINISTRATOR, HSTROPN, CMP #### [facility] [address] [place], [place] [address] Dr. Deborah Mohan IGG SUBCLASSES (1-4) AND TOT Kade 03-09-2022 IgG, Subclass 1 448 mg/dL Normal 248-810 [facility] Comment on above: Performed By: #### B NETWORK SUPPORT ADMINISTRATOR, HSTROPN, CMP #### [facility] [address] [place], [place] [address] Dr. Deborah Mohan IgG, Subclass 2 253 mg/dL Normal 130-555 [facility] Comment on above: Performed By: #### B NETWORK SUPPORT ADMINISTRATOR, HSTROPN, CMP #### [facility] [address] [place], [place] [address] Dr. Deborah Mohan IgG, Subclass 3 95 mg/dL Normal 15-102 [facility] Comment on above: Performed By: #### B NETWORK SUPPORT ADMINISTRATOR, HSTROPN, CMP #### [facility] [address] [place] [address] [address] Deborah Mohan IgG, Subclass 4 10 mg/dL Normal 2-96 [facility] Comment on above: Performed By: #### B NETWORK SUPPORT ADMINISTRATOR, HSTROPN, CMP #### [facility] [address] [place] [address] [address] Deborah Mohan Immunoglobulin G, Qn, Serum 658 mg/dL Normal 586-1602 [facility] Comment on above: Performed By: #### B NETWORK SUPPORT ADMINISTRATOR, HSTROPN, CMP #### [facility] [address] [place] [address] Dr. Deborah Mohan IMMUNOGLOBULIN E, TOTALon Immunoglobulin E, Total 5 IU/mL Critically low 6-495 [facility] Comment on above: Performed By: #### I GETOT ####[facility] [address] [place] [address]Dr. Deborah Mohan MICHELL EIA W/REFLEX 5 BIOMARKER Son 03-08-2022 MICHELL Direct Negative Normal Negative [facility] Comment on above: Performed By: #### A NARF #### [facility] [address] [place] [address] [address] Deborah Mohan ANGIOTENSION-CONVERTING ENZY ME (FRANCESCO)on 03-08-2022 FRANCESCO 32 U/L Normal 14-82 [facility] Comment on above: Performed By: #### A NGIOC ####[facility] [address] [place] [address]Dr. Deborah Mohan ANTIGLOMERULAR BASEMENT MEMB ROMMEL ABSon 03-08-2022 Anti-GBM Antibodies <0.2 Normal 0.0-0.9 [facility] Comment on above: Performed By: #### A GBM #### [facility] [address] [place] [address] [address] Deborah Mohan IMMUNOGLOBULIN IGA QUANTITIA VEon 03-06-2022 Immunoglobulin A, Qn, Serum 229 mg/dL Normal 87-352 [facility] Comment on above: Performed By: #### A NARF #### [facility] [address] [place] [address] [address] Deborah Mohan IMMUNOGLOBULIN IGM QUANTITAT IVEon 03-06-2022 Immunoglobulin M, Qn, Serum 83 mg/dL Normal 26-217 [facility] Comment on above: Performed By: #### B NETWORK SUPPORT ADMINISTRATOR, HSTROPN, CMP #### [facility] [address] [place] [address] [address] Deborah Mohan RHEUMATOID FACTORon 03-06-20 RA Latex Turbid. 10.9 IU/mL Normal <14.0 [facility] Comment on above: Performed By: #### R F ####[facility] [address] [place] [address]DrAnkur Mohan CREATININEon 03-05-2022 Creatinine [Mass/Vol] 1.38 mg/dL Critically high 0.55-1.02 [facility] Comment on above: Performed By: #### C MELVINA ####[facility] [address] [place] [address]DrAnkur Mohan EGFR-AF HAITIAN 46 mL/min/1.73m2 Critically low >=60 [facility] Comment on above: Performed By: #### C MELVINA ####[facility] [address] [place] [address]Dr. Deborah Mohan EGFR-NON AF HAITIAN 38 mL/min/1.73m2 Critically low >=60 [facility] Comment on above: Performed By: #### C MELVINA ####[facility] [address] [place] [address]Dr. Deborah Mohan SED RATE WESTERGRENon 2021 SED RATE 92 mm/hr Critically high <=30 [facility] Comment on above: Performed By: #### B NETWORK SUPPORT ADMINISTRATOR, HSTROPN, CMP #### [facility] [address] [place] [address] Dr. Deborah Mohan XR DEXA BONE DENSITYon [...] Osteoporosis. High fracture risk Electronically authenticated by: ROEBRT CONDON Date: 2022-03-05 16:56 Normal [facility] XR CHEST 1 Von 03-01-2022 XR [...] by: ROBERT NOVAK Date: 2022-02-28 22:27 Normal [facility] XR KNEE LUANA 4V or >on 2021 [...] degenerative joint disease. Electronically authenticated by: RAUDEL ESTRAAD Date: 2022-01-29 11:09 Normal [facility] CBC AUTO DIFFon 11-29-2021 BASO # 0.1 103/ul Normal 0.0-0.1 [facility] Comment on above: Performed By: #### C BC ####[facility] [address] [place], [place] [address]Dr. Deborah Mohan Basophils/100 WBC (Bld) 0.8 % Normal 0.2-2.0 [facility] Comment on above: Performed By: #### C BC ####[facility] [address] [place] [address]Dr. Deborah Mohan EO # 0.3 103/ul Normal 0.0-0.7 [facility] Comment on above: Performed By: #### C BC ####[facility] [address] [place] [address]Dr. Deborah Mohan Eosinophils/100 WBC (Bld) 2.2 % Normal 0.9-7.0 [facility] Comment on above: Performed By: #### C BC ####[facility] Mt[address] [place], [place] [address]Dr. Deborah Mohan Erythrocyte distribution width (RBC) [Ratio] 21.2 % Critically high 11.0-15.0 [facility] Comment on above: Performed By: #### C BC ####[facility] [address] [place], [place] [address]Dr. Deborah Mohan Hematocrit (Bld) [Volume fraction] 33.2 % Critically low 36.0-48.0 [facility] Comment on above: Performed By: #### C BC ####[facility] [address]xlfe[address] [place], [place] [address]Dr. Deborah Mohan Hemoglobin (Bld) [Mass/Vol] 10.3 g/dL Critically low 12.0-16.0 [facility] Comment on above: Performed By: #### C BC ####[facility] [address] [place], [place] [address]Dr. Deborah Mohan IG # 0.11 10e3/ul Critically high 0.00-0.03 [facility] Comment on above: Performed By: #### C BC ####[facility] [address] [place], [place] [address]Dr. Deborah Mohan IG % 0.9 % Critically high 0.0-0.5 [facility] Comment on above: Performed By: #### C BC ####[facility] [address] [place] [address]. Deborah Mohan LYMPH # 2.2 103/ul Normal 1.2-3.8 [facility] Comment on above: Performed By: #### C BC ####[facility] [address] [place] [address]Dr. Deborah Mohan Lymphocytes/100 WBC (Bld) 18.5 % Critically low 20.5-60.0 [facility] Comment on above: Performed By: #### C BC ####[facility] [address] [place] [address]Dr. Deborah Mohan MANUAL DIFF REQ NO Normal [facility] Comment on above: Performed By: #### C BC ####[facility] [address] [place] [address]Dr. Deborah Mohan MCH (RBC) [Entitic mass] 26.3 pg Critically low 26.7-34.0 [facility] Comment on above: Performed By: #### C BC ####[facility] Ens[address]im[address]of[address] [place], [place] [address]Dr. Deborah Mohan MCHC (RBC) [Mass/Vol] 31.0 g/dL Normal 29.9-35.2 [facility] Comment on above: Performed By: #### C BC ####[facility] Xdrftmhz[address] [place], [place] [address]Dr. Deborah Mohan MCV (RBC) [Entitic vol] 84.9 fL Normal 81.0-99.0 [facility] Comment on above: Performed By: #### C BC ####[facility] [address] [place] [address]Dr. Deborah Mohan MONO # 0.6 103/ul Normal 0.3-0.8 [facility] Comment on above: Performed By: #### C BC ####[facility] A[address]kb[address] [place], [place] [address]Dr. Deborah Mohan Monocytes/100 WBC (Bld) 5.3 % Normal 1.7-12.0 [facility] Comment on above: Performed By: #### C BC ####[facility] [address]ten[address] [place], [place] [address]Dr. Deborah Mohan NEUT # 8.4 103/ul Critically high 1.4-6.5 [facility] Comment on above: Performed By: #### C BC ####[facility] [address] [place] [address]Dr. Deborah Mohan Neutrophils/100 WBC (Bld) 72.3 % Normal 43.0-75.0 [facility] Comment on above: Performed By: #### C BC ####[facility] [address] [place] [address]Dr. Deborah Mohan Platelet mean volume (Bld) [Entitic vol] 10.1 fL Normal 9.5-13.5 [facility] Comment on above: Performed By: #### C BC ####[facility] [address] [place] [address]Dr. Deborah Mohan PLT 351 103/ul Normal 150-450 [facility] Comment on above: Performed By: #### C BC ####[facility] [address] [place] [address]Dr. Deborah Mohan RBC 3.91 106/ul Critically low 4.20-5.40 [facility] Comment on above: Performed By: #### C BC ####[facility] [address] [place] [address]Dr. Deborah Mohan WBC 11.6 103/ul Critically high 4.0-11.0 [facility] Comment on above: Performed By: #### C BC ####[facility] [address] [place] [address]Dr. Deborah Mohan CTA CHEST WO W CONon 11-29- 022 CTA CHEST WO W CON EXAMINATION: CTA CHEST WO W CON, 11/29/2021 HISTORY: Acute dyspnea, elevated d-dimer CHEST [...] is. Calcified lymph nodes in the upper abdomen/retroperitone um. IMPRESSION: 1. No evidence of pulmonary thromboembolism. Dilated central pulmonary arteries consistent with pulmonary artery hypertension. 2. Bilateral peripheral fibrosis and/or scarring with eerj-mk-tgisqsmw groundglass densities. The groundglass densities are slightly decreased compared to the prior scan. 3. Old calcified granulomas in the chest and abdomen. 4. Large hiatal hernia. 5. Moderate diffuse osteopenia. Electronically authenticated by: BERNARDO DENNY Date: 2021-11-29 20:31 Normal [facility] D-DIMERon 11-29-2021 D-DIMER 1.14 mg/L FEU Critically high <=0.59 [facility] [place] Comment on above: Performed By: #### A NAR #### [facility] [address] [place] [address] [address] Deborah Mohan D-DIMER COMMENTS SEE BELOW Normal [facility] Comment on above: Result Comment: [...] hospitalization. Performed By: #### A NARF #### [facility] [address] [place] [address] [address] Deborah Mohan PROF CHEM 8 (BAS METB)on Anion gap [Moles/Vol] 11.7 mmol/L Normal [facility] Comment on above: Performed By: #### B MP, HSTROPN #### [facility] [address] [place] [address] [address] Deborah Mohan Calcium [Mass/Vol] 8.7 mg/dL Normal 8.5-10.1 [facility] [place] Comment on above: Performed By: #### B MP, HSTROPN #### [facility] [address] [place] [address] Dr. Deborah Mohan Chloride [Moles/Vol] 107 mmol/L Normal 98-107 [facility] Comment on above: Performed By: #### B MP, HSTROPN #### [facility] [address] [place] [address] [address] Deborah Mohan CO2 [Moles/Vol] 25.3 mmol/L Normal 21.0-32.0 [facility] Comment on above: Performed By: #### B MP, HSTROPN #### [facility] [address] [place] [address] Dr. Deborah Mohan Creatinine [Mass/Vol] 0.98 mg/dL Normal 0.55-1.02 [facility] Comment on above: Performed By: #### B MP, HSTROPN #### [facility] [address] [place] [address] [address] Deborah Mohan EGFR-AF HAITIAN >60 Normal >=60 [facility] Comment on above: Performed By: #### B MP, HSTROPN #### [facility] [address] [place] [address] [address] Deborah Mohan EGFR-NON AF HAITIAN 56 mL/min/1.73m2 Critically low >=60 [facility] Comment on above: Performed By: #### B MP, HSTROPN #### [facility] [address] [place] [address] [address] Deborah Mohan Glucose [Mass/Vol] 105 mg/dL Normal 74-106 [facility] Comment on above: Performed By: #### B MP, HSTROPN #### [facility] [address] [place] [address] [address] Deborah Mohan Potassium [Moles/Vol] 4.0 mmol/L Normal 3.5-5.1 [facility] Comment on above: Performed By: #### B KYLEE, HSTROPN #### [facility] [address] [place] [address] [address] Deborah Mohan Sodium [Moles/Vol] 140 mmol/L Normal 136-145 [facility] Comment on above: Performed By: #### B MP, HSTROPN #### [facility] [address] [place] [address] [address] Deborah Mohan Urea nitrogen [Mass/Vol] 21.0 mg/dL Critically high 7.0-18.0 [facility] Comment on above: Performed By: #### B KYLEE, HSTROPN #### [facility] [address] [place] [address] [address] Deborah Mohan Urea nitrogen/Creatinine [Mass ratio] 21.4 mg/mg Normal [facility] Comment on above: Performed By: #### B MP, HSTROPN #### [facility] [address] [place] [address] [address] Deborah Mohan TROPONIN, HIGH SENSITIVITYon 11-29-2021 HSTROP 4.5 pg/mL Normal 4.0-51.3 [facility] Comment on above: Result Comment: CUT- OFF POINTS HAVE BEEN ESTABLISHED BASED ON THE FOURTH UNIVERSAL DEFINITIONS OF MYOCARDIAL INFARCTION. THE UPPER REFERENCE LIMIT (URL) OF TROPONIN, DEFINED THE 99TH PERCENTILE OF cTnI DISTRIBUTION IN A REFERENCE POPULATION, HAS BEEN CONFIRMED THE DECISION THRESHOLD FOR [place] DIAGNOSIS. Performed By: #### H STROPN ####[facility] [address] [place] [address]Dr. Deborah Mohan HSTROP 6.0 pg/mL Normal 4.0-51.3 [facility] Comment on above: Result Comment: CUT- OFF POINTS HAVE BEEN ESTABLISHED BASED ON THE FOURTH UNIVERSAL DEFINITIONS OF MYOCARDIAL INFARCTION. THE UPPER REFERENCE LIMIT (URL) OF TROPONIN, DEFINED THE 99TH PERCENTILE OF cTnI DISTRIBUTION IN A REFERENCE POPULATION, HAS BEEN CONFIRMED THE DECISION THRESHOLD FOR AK DIAGNOSIS. Performed By: #### B MP, HSTROPN #### [facility] [address] [place], [place] [address] Dr. Deborah Mohan XR CHEST 1 Von [...] by: KANDY BARRY Date: 2021-11-29 19:20 Normal [facility] XR LSPINE W_OBLS AND FLEX_EX Ton [...] by: RAUDEL ESTRADA Date: 2021-11-12 07:56 Normal [facility] CALCIUMon 11-11-2021 Calcium [Mass/Vol] 9.0 mg/dL Normal 8.5-10.1 [facility] Comment on above: Performed By: #### A NARF #### [facility] [address] [place] [address] [address] Deborah Mohan CREATININEon 11-11-2021 Creatinine [Mass/Vol] 1.47 mg/dL Critically high 0.55-1.02 [facility] Comment on above: Performed By: #### A NARF #### [facility] [address] [place] [address] [address] Deborah Mohan EGFR-AF HAITIAN 43 mL/min/1.73m2 Critically low >=60 [facility] Comment on above: Performed By: #### A NARF #### [facility] [address] [place] [address] [address] Deborah Mohan EGFR-NON AF HAITIAN 35 mL/min/1.73m2 Critically low >=60 [facility] Comment on above: Performed By: #### A NARF #### [facility] [address] [place] [address] [address] Deborah Mohan Encounters Encounter Date Encounter Type Care Provider Facility Start: 10-05-2022 End: 10-06-2022 ambulatory NARENDRANATH LAKSHMIPATHY . Facility:[facility] Start: 09-17-2022 End: 09-17-[address] INGRID ESPINAL Facility:[facility] Start: 08-26-2022 ambulatory NARENDRANATH LAKSHMIPATHY . Facility:[facility] Start: 08-24-2022 End: 08-24-2022 ambulatory NATIVIDAD SILVA Facility:[facility] Start: 07-08-2022 End: 07-09-2022 ambulatory JOEL RAMON . Facility:[facility] Start: 07-06-2022 End: 07-07-2022 ambulatory NATIVIDAD SILVA Facility:[facility] Start: 06-24-2022 End: 06-25-2022 ambulatory JOEL RAMON . 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 Facility:[facility] Start: 04-07-2022 End: 04-07-2022 ambulatory NATIVIDAD SILVA Facility:[facility] Start: 03-16-2022 ambulatory [facility] Start: 03-16-2022 End: 03-16-2022 ambulatory NATIVIDAD SILVA Facility:[facility] Start: 03-12-2022 End: 03-13-2022 ambulatory NATIVIDAD SILVA Facility:[facility] Start: 03-09-2022 End: 03-10-2022 ambulatory NATIVIDAD SILVA Facility:[facility] Start: 03-08-2022 End: 03-09-2022 ambulatory DIANE [facility] Start: 03-05-2022 End: 03-06-2022 ambulatory NATIVIDAD SILVA Facility:[facility] Start: 02-28-2022 End: 03-01-2022 ambulatory NATIVIDAD SILVA Facility:[facility] Start: 01-29-2022 End: 01-30-2022 ambulatory JOEL RAMON . Facility:[facility] Start: 01-28-2022 End: 01-29-2022 ambulatory JOEL RAMON . Facility:[facility] Start: 11-29-2021 End: 11-30-2021 ambulatory NATIVIDAD SILVA Facility:[facility] Start: 11-11-2021 End: 11-13-[address] LUISITO UMANA . Facility:[facility] Start: 11-05-2021 End: 11-06-2021 ambulatory JOEL RAMON . Facility:[facility] Start: 04-01-2018 End: 04-01-2018 Emergency department patient visit BRANDON RUSSELL [facility] Start: 12-11-2017 End: 12-11-2017 Emergency department patient visit ROBERT HURLEY Facility:[facility] Procedures Date Procedure Procedure Detail Performing Clinician Start: 05-08-2022 Plain X-ray of left wrist [employer] Clarita Leigh Work Phone: Start: 05-08-2022 X-ray of left ankle [employer] Clarita Leigh Work Phone: Start: 04-01-2018 IP CONSULT TO ORAL SURGERY BRANDON RUSSELL Payers Date Payer Category Payer Medicare [id number] 2022 Self-pay 1961 Medicare [id number] 1955 Unknown [id number] 2.16.84 0.1.221166.3.579.2.593 1953 Unknown [id number] 2.16.84 0.1.910383.3.579.2.593 1953 Unknown [id number] 2.16.84 0.1.192389.3.579.2.593 1953 Unknown [id number] 2.16.84 0.1.593456.3.579.2.593 1953 Unknown [id number] 2.16.84 0.1.959180.3.579.2.593 1953 Unknown [id number] 2.16.84 0.1.624976.3.579.2.593 1953 Unknown [id number] 2.16.84 0.1.516902.3.579.2.593 1953 Unknown [id number] 2.16.84 0.1.796024.3.579.2.593 1953 Unknown [id number] 2.16.84 0.1.063496.3.579.2.593 1953 Unknown [id number] 2.16.84 0.1.915737.3.579.2.593 1953 Unknown [id number] 2.16.84 0.1.586173.3.579.2.593 1953 Unknown [id number] 2.16.84 0.1.838348.3.579.2.593 1953 Unknown [id number] 2.16.84 0.1.862022.3.579.2.593 1953 Unknown [id number] 2.16.84 0.1.486844.3.579.2.593 1953 Unknown [id number] 2.16.84 0.1.182143.3.579.2.593 1953 Unknown [id number] 2.16.84 0.1.871561.3.579.2.593 1953 Unknown [id number] 2.16.84 0.1.283722.3.579.2.593 1953 Unknown [id number] 2.16.84 0.1.601514.3.579.2.593 1953 Unknown [id number] 2.16.84 0.1.256273.3.579.2.593 1953 Unknown [id number] 2.16.84 0.1.123637.3.579.2.593 1953 Unknown [id number] 2.16.84 0.1.195636.3.579.2.593 1953 Unknown [id number] 2.16.84 0.1.804493.3.579.2.593 Medicare [id number] Unknown MMO [id number] [place] BC/BS [id number] Unknown [id number] 2.16.8 40.1.425955.3.579.2.531 Social History Date Type Detail Facility Tobacco smoking stat [facility] Unknown if ever smoked [facility] Work Phone: Start: 1955 Sex Assigned At Female F [facility] Clinical Notes 11-05-2021 to 07-08-2022 Note Date [...] in the clinic in three months. [facility] 06-24-2022 Note CONSULTATION CONSULTATION DATE: 06/24/2022 [...] at a time, as she works at [employer]. Current medications include Percocet 5/325 daily, diclofenac [...] pending approval for her knee injections. [facility] 04-08-2022 Note CONSULTATION CONSULTATION DATE: 04/08/2022 [...] three months' time unless otherwise indicated. [facility] 03-16-2022 Note Mildly displaced fra cture of upper sternum. Referral from Natividad Silva NP [facility] 03-16-2022 Note Mildly displaced fra cture [...] past 36 hour(s)). No follow-ups on file. [facility] 03-16-2022 Note Subjective Patient ID: Mary Vick [...] process. We will see her as needed. [facility] 03-09-2022 Note CONSULTATION CONSULTATION DATE: 03/09/2022 CHIEF [...] to proceed. CC: Natividad Silva CNP [facility] 03-08-[address] scan from [facility] 01-28-2022 Note CONSULTATION CONSULTATION DATE: 01/30/2022 [...] and re-evaluation of her bursa injection. [facility] 01-28-2022 Note CONSULTATION PROCEDURE DATE: 01/30/2022 [...] be followed up in the clinic. [facility] 11-12-2021 Note PROCEDURE: XR HIPS B [...] by: RAUDEL ESTRADA Date: 2021-11-12 07:50 [facility] 11-05-2021 Note CONSULTATION PROCEDURE DATE:11/05/2021 PREOPERATIVE [...] will be followed up in the office. [facility] Signed and Approved by: JOEL RAMON . 11/18/2021 16:24:00 [facility] 11-05-2021 Note CONSULTATION CONSULTATION DATE: 11/05/2021 [...] time, was working half a day at [employer] and since then has increased to full [...] in three months' time unless otherwise indicated. [facility] Signed and Approved by: JOEL RAMON . 11/18/2021 16:24:00 [facility] Evaluation note No assessment information availa ble [facility] Work Phone: Summary Purpose Family History No [...] and content) DATE CREATED AUTHOR 12/21/2017 [facility] DATE CREATED AUTHOR AUTHOR'S ORGANIZ ATION 05/01/2018 [facility] DATE CREATED AUTHOR AUTHOR'S ORGANIZ ATION 03/21/2022 [facility] DATE CREATED AUTHOR AUTHOR'S ORGANIZ ATION 05/17/2022 [facility] DATE CREATED AUTHOR AUTHOR'S ORGANIZ ATION 10/06/2022 [facility] Care Teams (unrecognized sec tion and [...] BE BASED ON THE PRIMARY CLINICAL RECORDS. [facility] [employer]. provides no warranty or guarantee of the accuracy or completeness of information in this document.
== END 2023-05-12 13:46 | disposition home or self-care (01) ==
LOC: PM 13:45
PROVIDERS: PCP Nurse Practitioner Family; Visit Provider Anesthesiology Pain Medicine
DX: M70.62 Trochanteric bursitis, left hip (principal); M70.61 Trochanteric bursitis, right hip
CPT/HCPCS: 20552

== ENCOUNTER 2023-06-22 09:06 | Outpatient (OUT) | payer MEDICARE, SELFPAY ==
--- OUTSIDE RECORDS SUMMARY | 2023-06-22 09:09 | XMS_ITS | CCD ---
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 of upper sternum. Referral from Natividad Silva NP Normal [facility] HEMOGLOBINon 03-12-2022 Hemoglobin (Bld) [Mass/Vol] 9.2 g/dL Critically low 12.0-16.0 [facility] Comment on above: Performed By: #### A NARF #### [facility] [address] [place] [address] Dr. Deborah Mohan ANTI NEUTROPHIL CYTOPLASMIC AB (ANCA) PRon 03-09-2022 Anti-MPO Antibodies <0.2 Normal 0.0-0.9 [facility] Comment on above: Result Comment: Perf ormed at: BN Performed By: #### B HANGERSMITH, HSTROPN, CMP #### [facility] [address] [place] [address] Dr. Deborah Mohan Anti-PR3 Antibodies <0.2 Normal 0.0-0.9 [facility] Comment on above: Result Comment: Perf ormed at: BN Performed By: #### B HANGERSMITH, HSTROPN, CMP #### [facility] [address] [place] [address] Dr. Deborah Mohan Atypical pANCA 1:160 Critically high Neg:<1:20 [facility] Comment on above: Result Comment: The atypical pANCA pattern has been observed in a significant percentage of patients with ulcerative colitis, primary sclerosing cholangitis and autoimmune hepatitis. Performed at: CB Performed By: #### B HANGERSMITH, HSTROPN, CMP #### [facility] [address] [place] [address] Dr. Deborah Mohan Cytoplasmic (C-ANCA) <1:20 Normal Neg:<1:20 [facility] Comment on above: Result Comment: Perf ormed at: CB Performed By: #### B HANGERSMITH, HSTROPN, CMP #### [facility] [address] [place] [address] Dr. Deborah Mohan Perinuclear (P-ANCA) <1:20 Normal Neg:<1:20 [facility] Comment on above: Result Comment: The presence of positive fluorescence exhibiting P-ANCA or C-ANCA patterns alone is not specific for the diagnosis of Marlin's Granulomatosis (WG) or microscopic polyangiitis. Decisions about treatment should not be based solely on ANCA IFA results. The International ANCA Group Consensus recommends follow up testing of positive sera with both OR-3 and MPO-ANCA enzyme immunoassays. As many as 5% serum samples are positive only by EIA. Ref. AM J Clin Pathol 1999;111:507-513. Performed at: CB Performed By: #### B HANGERSMITH, HSTROPN, CMP #### [facility] [address] [place], [place] [address] Dr. Deborah Mohan ANTISCLERODERMA ABon 022 Antiscleroderma-70 Antibodies <0.2 Normal 0.0-0.9 [facility] Comment on above: Performed By: #### A NARF #### [facility] [address] [place], [place] [address] CHEST WO CONon [...] incidental findings, as described above. Normal [facility] CYCLIC CITRULLINATED PEPTIDE AB (CCP)on 03-09-2022 CCP Antibodies IgG/IgA 6 units Normal 0-19 [facility] Comment on above: Result Comment: Nega tive <20 Weak positive 20 - 39 Moderate positive 40 - 59 Strong positive >59 Performed By: #### B HANGERSMITH, HSTROPN, CMP #### [facility] [address] [place], [place] [address] Dr. Deborah Mohan IGG SUBCLASSES (1-4) AND TOT Kade 03-09-2022 IgG, Subclass 1 448 mg/dL Normal 248-810 [facility] Comment on above: Performed By: #### B HANGERSMITH, HSTROPN, CMP #### [facility] [address] [place], [place] [address] Dr. Deborah Mohan IgG, Subclass 2 253 mg/dL Normal 130-555 [facility] Comment on above: Performed By: #### B HANGERSMITH, HSTROPN, CMP #### [facility] [address] [place], [place] [address] Dr. Deborah Mohan IgG, Subclass 3 95 mg/dL Normal 15-102 [facility] Comment on above: Performed By: #### B HANGERSMITH, HSTROPN, CMP #### [facility] [address] [place] [address] [address] Deborah Mohan IgG, Subclass 4 10 mg/dL Normal 2-96 [facility] Comment on above: Performed By: #### B HANGERSMITH, HSTROPN, CMP #### [facility] [address] [place] [address] [address] Deborah Mohan Immunoglobulin G, Qn, Serum 658 mg/dL Normal 586-1602 [facility] Comment on above: Performed By: #### B HANGERSMITH, HSTROPN, CMP #### [facility] [address] [place] [address] Dr. Deborah Mohan IMMUNOGLOBULIN E, TOTALon Immunoglobulin E, Total 5 IU/mL Critically low 6-495 [facility] Comment on above: Performed By: #### I GETOT ####[facility] [address] [place] [address]Dr. Deborah Mohan MICHELL EIA W/REFLEX 5 BIOMARKER Son 03-08-2022 MICHELL Direct Negative Normal Negative [facility] Comment on above: Performed By: #### A NARF #### [facility] [address] [place] [address] [address] Deborah Mohan ANGIOTENSION-CONVERTING ENZY ME (FRANCESCO)on 03-08-2022 FRANCESCO 32 U/L Normal 14-82 [facility] Comment on above: Performed By: #### A NGIOC ####[facility] [address] [place] [address]Dr. Deborah Mohan ANTIGLOMERULAR BASEMENT MEMB ROMMEL ABSon 03-08-2022 Anti-GBM Antibodies <0.2 Normal 0.0-0.9 [facility] Comment on above: Performed By: #### A GBM #### [facility] [address] [place] [address] [address] Deborah Mohan IMMUNOGLOBULIN IGA QUANTITIA VEon 03-06-2022 Immunoglobulin A, Qn, Serum 229 mg/dL Normal 87-352 [facility] Comment on above: Performed By: #### A NARF #### [facility] [address] [place] [address] [address] Deborah Mohan IMMUNOGLOBULIN IGM QUANTITAT IVEon 03-06-2022 Immunoglobulin M, Qn, Serum 83 mg/dL Normal 26-217 [facility] Comment on above: Performed By: #### B HANGERSMITH, HSTROPN, CMP #### [facility] [address] [place] [address] [address] Deborah Mohan RHEUMATOID FACTORon 03-06-20 RA Latex Turbid. 10.9 IU/mL Normal <14.0 [facility] Comment on above: Performed By: #### R F ####[facility] [address] [place] [address]DrAnkur Mohan CREATININEon 03-05-2022 Creatinine [Mass/Vol] 1.38 mg/dL Critically high 0.55-1.02 [facility] Comment on above: Performed By: #### C MELVINA ####[facility] [address] [place] [address]Dr. Deborah Mohan EGFR-AF CZECH 46 mL/min/1.73m2 Critically low >=60 [facility] Comment on above: Performed By: #### C MELVINA ####[facility] [address] [place] [address]Dr. Deborah Mohan EGFR-NON AF CZECH 38 mL/min/1.73m2 Critically low >=60 [facility] Comment on above: Performed By: #### C MELVINA ####[facility] [address] [place] [address]DrAnkur Mohan SED RATE WESTERGRENon 2021 SED RATE 92 mm/hr Critically high <=30 [facility] Comment on above: Performed By: #### B HANGERSMITH, HSTROPN, CMP #### [facility] [address] [place] [address] [address] Deborah Mohan XR DEXA BONE DENSITYon [...] by: ROBERT CONDON Date: 2022-03-05 16:56 Normal [facility] XR CHEST 1 Von 03-01-2022 XR CHEST [...] by: ROBERT NOVAK Date: 2022-02-28 22:27 Normal [facility] XR KNEE LUANA 4V or [...] by: RAUDEL ESTRADA Date: 2022-01-29 11:09 Normal [facility] CBC AUTO DIFFon 11-29-2021 BASO # 0.1 103/ul Normal 0.0-0.1 [facility] Comment on above: Performed By: #### C BC ####[facility] [address] [place], [place] [address]DrAnkur Mohan Basophils/100 WBC (Bld) 0.8 % Normal 0.2-2.0 [facility] Comment on above: Performed By: #### C BC ####[facility] [address] [place], [place] [address]Dr. Deborah Mohan EO # 0.3 103/ul Normal 0.0-0.7 [facility] Comment on above: Performed By: #### C BC ####[facility] [address] [place], [place] [address]Dr. Deborah Mohan Eosinophils/100 WBC (Bld) 2.2 % Normal 0.9-7.0 [facility] Comment on above: Performed By: #### C BC ####[facility] [address] [place], [place] [address]Dr. Deborah Mohan Erythrocyte distribution width (RBC) [Ratio] 21.2 % Critically high 11.0-15.0 [facility] Comment on above: Performed By: #### C BC ####[facility] [address] [place], [place] [address]Dr. Deborah Mohan Hematocrit (Bld) [Volume fraction] 33.2 % Critically low 36.0-48.0 [facility] Comment on above: Performed By: #### C BC ####[facility] [address] [place], [place] [address]Dr. Deborah Mohan Hemoglobin (Bld) [Mass/Vol] 10.3 g/dL Critically low 12.0-16.0 [facility] Comment on above: Performed By: #### C BC ####[facility] [address] [place], [place] [address]Dr. Deborah Mohan IG # 0.11 10e3/ul Critically high 0.00-0.03 [facility] Comment on above: Performed By: #### C BC ####[facility] [address] [place], [place] [address]Dr. Deborah Mohan IG % 0.9 % Critically high 0.0-0.5 [facility] Comment on above: Performed By: #### C BC ####[facility] [address] [place], [place] [address]Dr. Ann-Mariemich Mohan LYMPH # 2.2 103/ul Normal 1.2-3.8 [facility] Comment on above: Performed By: #### C BC ####[facility] [address] [place] [address]Dr. Ann-Mariemich Mohan Lymphocytes/100 WBC (Bld) 18.5 % Critically low 20.5-60.0 [facility] Comment on above: Performed By: #### C BC ####[facility] [address] [place] [address]Dr. Deborah Mohan MANUAL DIFF REQ NO Normal [facility] Comment on above: Performed By: #### C BC ####[facility] [address] [place] [address]Dr. Ann-Mariemich Mohan MCH (RBC) [Entitic mass] 26.3 pg Critically low 26.7-34.0 [facility] Comment on above: Performed By: #### C BC ####[facility] [address] [place], [place] [address]Dr. Deborah Marques MCHC (RBC) [Mass/Vol] 31.0 g/dL Normal 29.9-35.2 [facility] Comment on above: Performed By: #### C BC ####[facility] [address] [place], [place] [address]Dr. Deborah Mohan MCV (RBC) [Entitic vol] 84.9 fL Normal 81.0-99.0 [facility] Comment on above: Performed By: #### C BC ####[facility] [address] [place], [place] [address]Dr. Deborah Mohan MONO # 0.6 103/ul Normal 0.3-0.8 [facility] Comment on above: Performed By: #### C BC ####[facility] [address] [place], [place] [address]Dr. Deborah Mohan Monocytes/100 WBC (Bld) 5.3 % Normal 1.7-12.0 [facility] Comment on above: Performed By: #### C BC ####[facility] [address] [place], [place] [address]Dr. Deborah Mohan NEUT # 8.4 103/ul Critically high 1.4-6.5 [facility] Comment on above: Performed By: #### C BC ####[facility] [address] [place] [address]Dr. Deborah Mohan Neutrophils/100 WBC (Bld) 72.3 % Normal 43.0-75.0 [facility] Comment on above: Performed By: #### C BC ####[facility] [address] [place] [address]Dr. Deborah Mohan Platelet mean volume (Bld) [Entitic vol] 10.1 fL Normal 9.5-13.5 [facility] Comment on above: Performed By: #### C BC ####[facility] [address] [place] [address]Dr. Deborah Mohan PLT 351 103/ul Normal 150-450 [facility] Comment on above: Performed By: #### C BC ####[facility] [address] [place] [address]Dr. Deborah Mohan RBC 3.91 106/ul Critically low 4.20-5.40 [facility] Comment on above: Performed By: #### C BC ####[facility] [address] [place] [address]Dr. Deborah Mohan WBC 11.6 103/ul Critically high 4.0-11.0 [facility] Comment on above: Performed By: #### C BC ####[facility] [address] [place] [address]Dr. Deborah Mohan CTA CHEST WO W CONon 022 CTA CHEST WO W CON EXAMINATION: [...] 2. Bilateral peripheral fibrosis and/or scarring with agzk-ns-fwusawej groundglass densities. The groundglass densities are slightly decreased compared to the prior scan. 3. Old calcified granulomas in the chest and abdomen. 4. Large hiatal hernia. 5. Moderate diffuse osteopenia. Electronically authenticated by: BERNARDO DENNY Date: 2021-11-29 20:31 Normal [facility] D-DIMERon 11-29-2021 D-DIMER 1.14 mg/L FEU Critically high <=0.59 [facility] Comment on above: Performed By: #### A NAR #### [facility] [address] [place] [address] Dr. Deborah Mohan D-DIMER COMMENTS SEE BELOW Normal [facility] Comment on above: Result Comment: Incr [...] hospitalization. Performed By: #### A NARF #### [facility] [address] [place] [address] Dr. Deborah Mohan PROF CHEM 8 (BAS METB)on Anion gap [Moles/Vol] 11.7 mmol/L Normal [facility] Comment on above: Performed By: #### B MP, HSTROPN #### [facility] [address] [place] [address] Dr. Deborah Mohan Calcium [Mass/Vol] 8.7 mg/dL Normal 8.5-10.1 [facility] Comment on above: Performed By: #### B MP, HSTROPN #### [facility] [address] [place] [address] Dr. Deborah Mohan Chloride [Moles/Vol] 107 mmol/L Normal 98-107 [facility] Comment on above: Performed By: #### B MP, HSTROPN #### [facility] [address] [place] [address] Dr. Deborah Mohan CO2 [Moles/Vol] 25.3 mmol/L Normal 21.0-32.0 [facility] Comment on above: Performed By: #### B MP, HSTROPN #### [facility] [address] [place] [address] Dr. Deborah Mohan Creatinine [Mass/Vol] 0.98 mg/dL Normal 0.55-1.02 [facility] Comment on above: Performed By: #### B MP, HSTROPN #### [facility] [address] [place] [address] Dr. Deborah Mohan EGFR-AF CZECH >60 Normal >=60 [facility] Comment on above: Performed By: #### B MP, HSTROPN #### [facility] [address] [place] [address] Dr. Deborah Mohan EGFR-NON AF CZECH 56 mL/min/1.73m2 Critically low >=60 [facility] Comment on above: Performed By: #### B MP, HSTROPN #### [facility] [address] [place] [address] [address] Deborah Mohan Glucose [Mass/Vol] 105 mg/dL Normal 74-106 [facility] Comment on above: Performed By: #### B MP, HSTROPN #### [facility] [address] [place] [address] [address] Deborah Mohan Potassium [Moles/Vol] 4.0 mmol/L Normal 3.5-5.1 [facility] Comment on above: Performed By: #### B MP, HSTROPN #### [facility] [address] [place] [address] [address] Deborah Mohan Sodium [Moles/Vol] 140 mmol/L Normal 136-145 [facility] Comment on above: Performed By: #### B MP, HSTROPN #### [facility] [address] [place] [address] [address] Deborah Mohan Urea nitrogen [Mass/Vol] 21.0 mg/dL Critically high 7.0-18.0 [facility] Comment on above: Performed By: #### B KYLEE, HSTROPN #### [facility] [address] [place] [address] [address] Deborah Mohan Urea nitrogen/Creatinine [Mass ratio] 21.4 mg/mg Normal [facility] Comment on above: Performed By: #### B MP, HSTROPN #### [facility] [address] [place] [address] [address] Deborah Mohan TROPONIN, HIGH SENSITIVITYon 11-29-2021 HSTROP 4.5 pg/mL Normal 4.0-51.3 [facility] Comment on above: Result Comment: CUT- OFF POINTS HAVE BEEN ESTABLISHED BASED ON THE FOURTH UNIVERSAL DEFINITIONS OF MYOCARDIAL INFARCTION. THE UPPER REFERENCE LIMIT (URL) OF TROPONIN, DEFINED THE 99TH PERCENTILE OF cTnI DISTRIBUTION IN A REFERENCE POPULATION, HAS BEEN CONFIRMED THE DECISION THRESHOLD FOR [place] DIAGNOSIS. Performed By: #### H STROPN ####[facility] [address] [place] [address]Dr. Deborah Mohan HSTROP 6.0 pg/mL Normal 4.0-51.3 [facility] Comment on above: Result Comment: CUT- OFF POINTS HAVE BEEN ESTABLISHED BASED ON THE FOURTH UNIVERSAL DEFINITIONS OF MYOCARDIAL INFARCTION. THE UPPER REFERENCE LIMIT (URL) OF TROPONIN, DEFINED THE 99TH PERCENTILE OF cTnI DISTRIBUTION IN A REFERENCE POPULATION, HAS BEEN CONFIRMED THE DECISION THRESHOLD FOR [place] DIAGNOSIS. Performed By: #### B MP, HSTROPN #### [facility] [address] [place], [place] [address] Dr. Deborah Mohan XR CHEST 1 Von [...] by: KANDY BARRY Date: 2021-11-29 19:20 Normal [facility] XR LSPINE W_OBLS AND FLEX_EX Ton 11-12-2021 [...] by: RAUDEL ESTRADA Date: 2021-11-12 07:56 Normal [facility] CALCIUMon 11-11-2021 Calcium [Mass/Vol] 9.0 mg/dL Normal 8.5-10.1 [facility] Comment on above: Performed By: #### A NARF #### [facility] [address] [place] [address] [address] Deborah Mohan CREATININEon 11-11-2021 Creatinine [Mass/Vol] 1.47 mg/dL Critically high 0.55-1.02 [facility] Comment on above: Performed By: #### A NARF #### [facility] [address] [place] [address] [address] Deborah Mohan EGFR-AF CZECH 43 mL/min/1.73m2 Critically low >=60 [facility] Comment on above: Performed By: #### A NARF #### [facility] [address] [place] [address] Dr. Deborah Mohan EGFR-NON AF CZECH 35 mL/min/1.73m2 Critically low >=60 [facility] Comment on above: Performed By: #### A NARF #### [facility] [address] [place] [address] Dr. Deborah Mohan Encounters Encounter Date Encounter Type Care Provider Facility Start: 10-05-2022 End: 10-06-2022 ambulatory NARENDRANATH LAKSHMIPATHY . Facility:[facility] Start: 09-17-2022 End: 09-17-[address] INGRID ESPINAL Facility:[facility] Start: 08-26-2022 ambulatory MARGUERITE WILDESHMIPATHY . Facility:[facility] Start: 08-24-2022 End: 08-24-2022 ambulatory NATIVIDAD SILVA Facility:[facility] Start: 07-08-2022 End: 07-09-2022 ambulatory JOEL RAMON . Facility:[facility] Start: 07-06-2022 End: 07-07-2022 ambulatory NATIVIDAD SILVA Facility:[facility] Start: 06-24-2022 End: 06-25-2022 ambulatory JOEL RAMON . Facility:[facility] Start: 05-21-2022 ambulatory NATIVIDAD SILVA Facility: [facility] Start: 05-08-2022 End: 05-08-2022 ambulatory Clarita Leigh Facility:[facility] Start: 05-08-2022 End: 05-08-2022 ambulatory COMPENSATION MANAGER-C Clarita Leigh Work Phone: [facility] Work Phone: Start: 05-08-2022 End: 05-08-2022 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 procedure COMPENSATION MANAGER-C Clarita Leigh Work Phone: [facility] Start: 04-08-2022 End: 04-09-2022 ambulatory JOEL RAMON . Facility:[facility] Start: 04-07-2022 End: 04-07-2022 ambulatory NATIVIDAD SILVA Facility:[facility] Start: 03-16-2022 ambulatory VERENA [facility] Start: 03-16-2022 End: 03-16-2022 ambulatory NATIVIDAD SILVA Facility:[facility] Start: 03-12-2022 End: 03-13-2022 ambulatory NATIVIDAD SILVA Facility:[facility] Start: 03-09-2022 End: 03-10-2022 ambulatory NATIVIDAD SILVA Facility:[facility] Start: 03-08-2022 End: 03-09-2022 ambulatory DIANE [facility] Start: 03-05-2022 End: 03-06-2022 ambulatory NATIVIDAD [...] 04-01-2018 Emergency department patient visit BRANDON RUSSELL [facility] Start: 12-11-2017 End: 12-11-2017 Emergency department patient visit ROBERT HURLEY Facility:[facility] Procedures Date Procedure Procedure Detail Performing Clinician Start: 05-08-2022 Plain X-ray of left wrist COMPENSATION MANAGER-C Clarita Leigh Work Phone: Start: 05-08-2022 X-ray of left ankle COMPENSATION MANAGER -C Clarita Leigh Work Phone: Start: 04-01-2018 IP CONSULT TO ORAL SURGERY BRANDON RUSSELL Payers Date Payer Category Payer Medicare [id number] 2022 Self-pay 1961 Medicare [id number] 1955 Unknown [id number] 2.16.84 [id number] 1955 Unknown [id number] 2.16.84 [id number] 1955 Unknown [id number] 2.16.84 [id number] 1955 Unknown [id number] 2.16.84 [id number] 1955 Unknown [id number] 2.16.84 [id number] 1955 Unknown [id number] 2.16.84 0.1.841484.3.579.2.593 1955 Unknown [id number] 2.16.84 0.1.311019.3.579.2.593 1955 Unknown [id number] 2.16.84 0.1.946609.3.579.2.593 1955 Unknown [id number] 2.16.84 0.1.083440.3.579.2.593 1953 Unknown [id number] 2.16.84 0.1.264419.3.579.2.593 1953 Unknown [id number] 2.16.84 0.1.163586.3.579.2.593 1953 Unknown [id number] 2.16.84 0.1.955753.3.579.2.593 1953 Unknown [id number] 2.16.84 0.1.255459.3.579.2.593 1953 Unknown [id number] 2.16.84 0.1.475710.3.579.2.593 1953 Unknown [id number] 2.16.84 0.1.009595.3.579.2.593 1953 Unknown [id number] 2.16.84 0.1.568858.3.579.2.593 1953 Unknown [id number] 2.16.84 0.1.399172.3.579.2.593 1953 Unknown [id number] 2.16.84 0.1.179926.3.579.2.593 1953 Unknown [id number] 2.16.84 0.1.330388.3.579.2.593 1953 Unknown [id number] 2.16.84 0.1.860346.3.579.2.593 1953 Unknown [id number] 2.16.84 0.1.167078.3.579.2.593 1955 Unknown [id number] 2.16.84 0.1.690739.3.579.2.593 Medicare [id number] Unknown MMO [id number] Unknown [place] BC/BS [id number] Unknown [id number] 2.16.8 40.1.152357.3.579.2.531 Social History Date Type Detail Facility Tobacco smoking stat [facility] Unknown if ever smoked [facility] Work Phone: Start: 1955 Sex Assigned At Female [facility] Clinical Notes 11-05-2021 to 07-08-2022 Note Date [...] in the clinic in three months. [facility] 06-24-2022 Note CONSULTATION CONSULTATION DATE: 06/24/2022 HISTORY [...] at a time, as she works at [email or web address]. Current medications include Percocet 5/325 daily, diclofenac [...] pending approval for her knee injections. [facility] 04-08-2022 Note CONSULTATION CONSULTATION DATE: 04/08/2022 HISTORY [...] three months' time unless otherwise indicated. [facility] 03-16-2022 Note Mildly displaced fra cture of upper sternum. Referral from Natividad Silva NP [facility] 03-16-2022 Note Mildly displaced fra cture [...] past 36 hour(s)). No follow-ups on file. [facility] 03-16-2022 Note Subjective Patient ID: Mary [...] process. We will see her as needed. [facility] 03-09-2022 Note CONSULTATION CONSULTATION DATE: 03/09/2022 [...] to proceed. CC: Natividad Silva CNP [facility] 03-08-[address] [facility] from [facility] 01-28-2022 Note CONSULTATION CONSULTATION DATE: 01/30/2022 [...] and re-evaluation of her bursa injection. [facility] 01-28-2022 Note CONSULTATION PROCEDURE DATE: 01/30/2022 PREOPERATIVE [...] be followed up in the clinic. [facility] 11-12-2021 Note PROCEDURE: XR HIPS B IL [...] by: RAUDEL ESTRADA Date: 2021-11-12 07:50 [facility] 11-05-2021 Note CONSULTATION PROCEDURE DATE:11/05/2021 PREOPERATIVE DIAGNOSIS: [...] will be followed up in the office. [facility] Signed and Approved by: JOEL RAMON . 11/18/2021 16:24:00 [facility] 11-05-2021 Note CONSULTATION CONSULTATION DATE: 11/05/2021 HISTORY [...] time, was working half a day at [email or web address] and since then has increased to full [...] in three months' time unless otherwise indicated. [facility] Signed and Approved by: JOEL RAMON . 11/18/2021 16:24:00 [facility] Evaluation note No assessment information availa ble [facility] Work Phone: Summary Purpose Family History No [...] and content) DATE CREATED AUTHOR 12/21/2017 [facility] DATE CREATED AUTHOR AUTHOR'S ORGANIZ ATION 05/01/2018 [facility] DATE CREATED AUTHOR AUTHOR'S ORGANIZ ATION 03/21/[address] [facility] DATE CREATED AUTHOR AUTHOR'S ORGANIZ ATION 05/17/2022 [facility] DATE CREATED AUTHOR AUTHOR'S ORGANIZ ATION 10/06/2022 [facility] Care Teams (unrecognized sec tion and content) [...] BE BASED ON THE PRIMARY CLINICAL RECORDS. [facility] [address] [facility]. provides no warranty or guarantee of the accuracy or completeness of information in this document.
--- NOTE | 2023-06-22 09:23 | PM.CN ---
Consult Note: HPI Data of Consult Requesting Physician: Shweta Crowley NP Primary Care Provider: POLO SILVA Consult Narrative Reason for consult: f/u Narrative: Mary Vick a pleasant 67 year old female presents for evaluation and management of low back pain. Today rating pain 4/10 in bilateral low back and bilateral hips, ache and stiffness. Pain is worse with all activity. Finding mild benefit from current medication regimen but still having functional difficulty and making it harder to complete tasks at work. 75% relief from recent bilateral GTB injection. Patient would like to proceed with previously discussed lumbar facet blocks and RFA. cc:: CC: Shweta Crowley NP Review of Systems ROS Status of ROS 10 or more systems reviewed and unremarkable except as noted in history and below Musculoskeletal Reports: back pain PFSH PFSH Medical History Surgical History Hx of tubal ligation ?Z98.51 - Tubal ligation status (ICD-10) History of appendectomy ?Z90.49 - Acquired absence of other specified parts of digestive tract (ICD-10) History of hysterectomy ?Z90.710 - Acquired absence of both cervix and uterus (ICD-10) Social History Smoking status: Former smoker Meds Home Medications and Allergies Home Medications Medication Instructions Recorded Confirmed Type albuterol sulfate 90 mcg/actuation 2 inh inhalation Q6H 10/21/22 10/26/22 History breath activated powder inhaler aripiprazole 30 mg tablet (Abilify) 30 mg PO QDAY 10/21/22 10/26/22 History aspirin 81 mg capsule 81 mg PO QDAY 10/21/22 01/23/23 History diclofenac sodium 50 mg 50 mg PO BID 10/21/22 10/26/22 History tablet,delayed release ferrous sulfate 325 mg (65 mg 325 mg PO BID 10/21/22 10/26/22 History iron) tablet (Feosol) fluoxetine 40 mg capsule (Prozac) 80 mg PO QDAY 10/21/22 10/26/22 History hydroxyzine HCl 25 mg tablet 25 mg PO BID PRN unknown 10/21/22 10/26/22 History levothyroxine 50 mcg tablet 50 mcg PO QDAY 10/21/22 10/26/22 History (Euthyrox) magnesium oxide 400 mg PO QDAY 10/21/22 10/26/22 History metoprolol tartrate 25 mg tablet 25 mg PO BID 10/21/22 10/26/22 History omeprazole 40 mg capsule,delayed 40 mg PO BID 10/21/22 10/26/22 History release oxycodone-acetaminophen 5 mg-325 1 tab PO QDAY PRN pain 10/21/22 10/26/22 History mg tablet potassium chloride 10 mEq 10 meq PO BID 10/21/22 10/26/22 History tablet,extended release (K-Tab) ropinirole 1 mg tablet 1 mg PO QDAY 10/21/22 10/26/22 History vitamins A,C,B-cakc-oblxiz 4,296 1 cap PO BID 10/21/22 10/26/22 History mcg-226 mg-90 mg capsule (ICaps AREDS) oxycodone-acetaminophen 5 mg-325 1 tab PO Q6H PRN pain #30 tabs 01/26/23 Rx mg tablet (Percocet) oxycodone-acetaminophen 5 mg-325 1 tab PO DAILY PRN pain #30 tabs 02/17/23 Rx mg tablet (Percocet) oxycodone-acetaminophen 5 mg-325 1 tab PO DAILY PRN pain #30 tabs 03/21/23 Rx mg tablet (Percocet) oxycodone-acetaminophen 5 mg-325 1 tab PO DAILY PRN pain #30 tabs 04/19/23 Rx mg tablet (Percocet) oxycodone-acetaminophen 5 mg-325 1 tab PO DAILY PRN pain #30 tabs 05/19/23 Rx mg tablet (Percocet) oxycodone-acetaminophen 5 mg-325 1 tab PO DAILY PRN pain #30 tabs 06/22/23 Rx mg tablet (Endocet) Allergies Allergy/AdvReac Type Severity Reaction Status Date / Time sumatriptan [From Imitrex] Allergy Severe Verified 01/23/23 18:53 Exam Constitutional Documenting provider has reviewed patient's vital signs: yes Common normals: no apparent distress, oriented x3, healthy appearing, alert and well nourished [facility] Common normals: normocephalic, hearing grossly normal bilaterally and moist oral mucous membranes Head and scalp: normocephalic Eye Common normals: PERRL Pupil: PERRL Neck & C-Spine Common normals: full ROM General: normal visual inspection Chest Common normals: inspection of chest normal Respiratory Common normals: normal respiratory effort, no retractions and no use of accessory muscles Back & Pelvis Lumbar spine/lower back: ROM limited, pain with ROM and straight leg raise negative bilaterally Other: predominately axial low back pain no radiculopathy Extremity Common normals: normal to inspection and full ROM Other: negative internal and external log roll mild pain over bilateral GTB Neuro Common normals: oriented x3, CN's II-XII intact bilaterally, moves all extremities, no focal motor deficits, no sensory deficits noted and deep tendon reflexes 2+ bilaterally Sensorium/orientation: alert Gait (neuro): antalgic Motor exam: strength 5/5 throughout and no movement abnormalities noted Psych Common normals: mental status grossly normal, thought process normal, cooperative, affect normal, speech normal and activity/motor behavior normal Speech: normal speech Thought process: normal thought process Assessment and Plan Assessment and Plan (1) Lumbar spondylosis: Assessment and Plan: The patient has had over 3 months of moderate to severe low back pain with functional impairment and inadequate response to conservative care including NSAIDS (unless there are contraindication such as concurrent blood thinners), multiple oral or topical pain medications, and home exercise program/physical therapy.? Patient has completed >6 weeks of guided home exercise program and/or formal physical therapy program without relief of their symptoms.? I have reviewed the imaging of the lumbar spine and no red flags were identified.? The imaging reveals radiographic findings consistent with lumbar spondylosis We discussed the risks and benefits of the procedure with the patient, and we are NOT planning on using sedation as outlined in the guidelines from Medicare unless there is a documented reason that sedation would be strongly recommended.?? ?The procedure will be completed with fluoroscopic guidance.? (2) Chronic, continuous use of opioids: Plan bilateral L1-2 L2-3 facet medial branch block x2 based on physical exam working towards thermal RFA continue current medications, denies side effects. notices improvement in ability to complete tasks at home and work with the help of her medications continue HEP as tolerated f/u 1 week after injection
== END 2023-06-22 09:07 | disposition home or self-care (01) ==
PROVIDERS: PCP Nurse Practitioner Family; Visit Provider Nurse Practitioner
DX: M47.816 Spondylosis without myelopathy or radiculopathy, lumbar region (principal); Z79.891 Long term (current) use of opiate analgesic
CPT/HCPCS: G0463

== ENCOUNTER 2023-07-12 07:29 | Day surgery (SDC) | payer MEDICARE, SELFPAY ==
--- OUTSIDE RECORDS SUMMARY | 2023-07-12 07:33 | XMS_ITS | CCD ---
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 <0.2 Normal 0.0-0.9 [facility] Comment on above: Result Comment: Perf ormed at: BN Performed By: #### B GERMAN TUTOR, HSTROPN, CMP #### [facility] [address] [place] [address] Dr. Deborah Mohan Anti-PR3 Antibodies <0.2 Normal 0.0-0.9 [facility] Comment on above: Result Comment: Perf ormed at: BN Performed By: #### B GERMAN TUTOR, HSTROPN, CMP #### [facility] [address] [place] [address] Dr. Deborah Mohan Atypical pANCA 1:160 Critically high Neg:<1:20 [facility] Comment on above: Result Comment: The atypical pANCA pattern has been observed in a significant percentage of patients with ulcerative colitis, primary sclerosing cholangitis and autoimmune hepatitis. Performed at: CB Performed By: #### B GERMAN TUTOR, HSTROPN, CMP #### [facility] [address] [place] [address] Dr. Deborah Mohan Cytoplasmic (C-ANCA) <1:20 Normal Neg:<1:20 [facility] Comment on above: Result Comment: Perf ormed at: CB Performed By: #### B GERMAN TUTOR, HSTROPN, CMP #### [facility] [address] [place] [address] Dr. Deborah Mohan Perinuclear (P-ANCA) <1:20 Normal Neg:<1:20 [facility] Comment on above: Result Comment: The presence of positive fluorescence exhibiting P-ANCA or C-ANCA patterns alone is not specific for the diagnosis of Marlin's Granulomatosis (WG) or microscopic polyangiitis. Decisions about treatment should not be based solely on ANCA IFA results. The International ANCA [employer] Consensus recommends follow up testing of positive sera with both IN-3 and MPO-ANCA enzyme immunoassays. As many as 5% serum samples are positive only by EIA. Ref. AM J Clin Pathol 1999;111:507-513. Performed at: CB Performed By: #### B GERMAN TUTOR, HSTROPN, CMP #### [facility] [address] [place], [place] [address] Dr. Deborah Mohan ANTISCLERODERMA ABon 022 Antiscleroderma-70 Antibodies <0.2 Normal 0.0-0.9 [facility] Comment on above: Performed By: #### A NARF #### [facility] [address], [place] [address] CHEST WO CONon [...] incidental findings, as described above. Normal [facility] CYCLIC CITRULLINATED PEPTIDE AB (CCP)on 03-09-2022 CCP Antibodies IgG/IgA 6 units Normal 0-19 [facility] Comment on above: Result Comment: Nega tive <20 Weak positive 20 - 39 Moderate positive 40 - 59 Strong positive >59 Performed By: #### B GERMAN TUTOR, HSTROPN, CMP #### [facility] [address] [place], [place] [address] Dr. Deborah Mohan IGG SUBCLASSES (1-4) AND TOT Kade 03-09-2022 IgG, Subclass 1 448 mg/dL Normal 248-810 [facility] Comment on above: Performed By: #### B GERMAN TUTOR, HSTROPN, CMP #### [facility] [address] [place], [place] [address] Dr. Deborah Mohan IgG, Subclass 2 253 mg/dL Normal 130-555 [facility] Comment on above: Performed By: #### B GERMAN TUTOR, HSTROPN, CMP #### [facility] [address] [place], [place] [address] Dr. Deborah Mohan IgG, Subclass 3 95 mg/dL Normal 15-102 [facility] Comment on above: Performed By: #### B GERMAN TUTOR, HSTROPN, CMP #### [facility] [address] [place] [address] [address] Deborah Mohan IgG, Subclass 4 10 mg/dL Normal 2-96 [facility] Comment on above: Performed By: #### B GERMAN TUTOR, HSTROPN, CMP #### [facility] [address] [place] [address] [address] Deborah Mohan Immunoglobulin G, Qn, Serum 658 mg/dL Normal 586-1602 [facility] Comment on above: Performed By: #### B GERMAN TUTOR, HSTROPN, CMP #### [facility] [address] [place] [address] Dr. Deborah Mohan IMMUNOGLOBULIN E, TOTALon Immunoglobulin E, Total 5 IU/mL Critically low 6-495 [facility] Comment on above: Performed By: #### I GETOT ####[facility] [address] [place] [address]Dr. Deborah Mohan MICHELL EIA W/REFLEX 5 BIOMARKER Son 03-08-2022 MICHELL Direct Negative Normal Negative [facility] Comment on above: Performed By: #### A NARF #### [facility] [address] [place] [address] [address] Deborah Mohan ANGIOTENSION-CONVERTING ENZY ME (FRANCESCO)on 03-08-2022 FRANCESCO 32 U/L Normal 14-82 [facility] Comment on above: Performed By: #### A NGIOC ####[facility] [address] [place] [address]Dr. Deborah Mohan ANTIGLOMERULAR BASEMENT MEMB ROMMEL ABSon 03-08-2022 Anti-GBM Antibodies <0.2 Normal 0.0-0.9 [facility] Comment on above: Performed By: #### A GBM #### [facility] [address] [place] [address] [address] Deborah Mohan IMMUNOGLOBULIN IGA QUANTITIA VEon 03-06-2022 Immunoglobulin A, Qn, Serum 229 mg/dL Normal 87-352 [facility] Comment on above: Performed By: #### A NARF #### [facility] [address] [place] [address] [address] Deborah Mohan IMMUNOGLOBULIN IGM QUANTITAT IVEon 03-06-2022 Immunoglobulin M, Qn, Serum 83 mg/dL Normal 26-217 [facility] Comment on above: Performed By: #### B GERMAN TUTOR, HSTROPN, CMP #### [facility] [address] [place] [address] [address] Deborah Mohan RHEUMATOID FACTORon 03-06-20 RA Latex Turbid. 10.9 IU/mL Normal <14.0 [facility] Comment on above: Performed By: #### R F ####[facility] [address] [place] [address]DrAnkur Mohan CREATININEon 03-05-2022 Creatinine [Mass/Vol] 1.38 mg/dL Critically high 0.55-1.02 [facility] Comment on above: Performed By: #### C MELVINA ####[facility] [address] [place] [address]Dr. Deborah Mohan EGFR-AF ANGOLAN 46 mL/min/1.73m2 Critically low >=60 [facility] Comment on above: Performed By: #### C MELVINA ####[facility] [address] [place] [address]Dr. Deborah Mohan EGFR-NON AF ANGOLAN 38 mL/min/1.73m2 Critically low >=60 [facility] Comment on above: Performed By: #### C MELVINA ####[facility] [address] [place] [address]DrAnkur Mohan SED RATE WESTERGRENon 2021 SED RATE 92 mm/hr Critically high <=30 [facility] Comment on above: Performed By: #### B GERMAN TUTOR, HSTROPN, CMP #### [facility] [address] [place] [address] [address] Deborah Mohan XR DEXA BONE DENSITYon [...] by: ROBERT CONDON Date: 2022-03-05 16:56 Normal [facility] XR CHEST 1 Von 03-01-2022 XR [...] by: ROBERT NOVAK Date: 2022-02-28 22:27 Normal [facility] XR KNEE LUANA 4V or >on [...] by: RAUDEL ESTRADA Date: 2022-01-29 11:09 Normal [facility] CBC AUTO DIFFon 11-29-2021 BASO # 0.1 103/ul Normal 0.0-0.1 [facility] Comment on above: Performed By: #### C BC ####[facility] [address] [place], [place] [address]DrAnkur Mohan Basophils/100 WBC (Bld) 0.8 % Normal 0.2-2.0 [facility] Comment on above: Performed By: #### C BC ####[facility] [address] [place], [place] [address]Dr. Deborah Mohan EO # 0.3 103/ul Normal 0.0-0.7 [facility] Comment on above: Performed By: #### C BC ####[facility] [address] [place], [place] [address]Dr. Deborah Mohan Eosinophils/100 WBC (Bld) 2.2 % Normal 0.9-7.0 [facility] Comment on above: Performed By: #### C BC ####[facility] [address] [place], [place] [address]Dr. Deborah Mohan Erythrocyte distribution width (RBC) [Ratio] 21.2 % Critically high 11.0-15.0 [facility] Comment on above: Performed By: #### C BC ####[facility] [address] [place], [place] [address]Dr. Deborah Mohan Hematocrit (Bld) [Volume fraction] 33.2 % Critically low 36.0-48.0 [facility] Comment on above: Performed By: #### C BC ####[facility] [address] [place], [place] [address]Dr. Deborah Mohan Hemoglobin (Bld) [Mass/Vol] 10.3 g/dL Critically low 12.0-16.0 [facility] Comment on above: Performed By: #### C BC ####[facility] [address] [place], [place] [address]Dr. Deborah Mohan IG # 0.11 10e3/ul Critically high 0.00-0.03 The [facility] Comment on above: Performed By: #### C BC ####[facility] [address] [place], [place] [address]Dr. Deborah Mohan IG % 0.9 % Critically high 0.0-0.5 The [facility] Comment on above: Performed By: #### C BC ####[facility] [address] [place], [place] [address]Dr. Ann-Mariemich Mohan LYMPH # 2.2 103/ul Normal 1.2-3.8 [facility] Comment on above: Performed By: #### C BC ####[facility] [address] [place] [address]Dr. Ann-Mariemich Mohan Lymphocytes/100 WBC (Bld) 18.5 % Critically low 20.5-60.0 [facility] Comment on above: Performed By: #### C BC ####[facility] [address] [place] [address]Dr. Deborah Mohan MANUAL DIFF REQ NO Normal [facility] Comment on above: Performed By: #### C BC ####[facility] [address] [place] [address]Dr. Ann-Mariemich Mohan MCH (RBC) [Entitic mass] 26.3 pg Critically low 26.7-34.0 [facility] Comment on above: Performed By: #### C BC ####[facility] [address] [place], [place] [address]Dr. Deborah Marques MCHC (RBC) [Mass/Vol] 31.0 g/dL Normal 29.9-35.2 [facility] Comment on above: Performed By: #### C BC ####[facility] [address] [place], [place] [address]Dr. Deborah Mohan MCV (RBC) [Entitic vol] 84.9 fL Normal 81.0-99.0 [facility] Comment on above: Performed By: #### C BC ####[facility] [address] [place], [place] [address]Dr. Deborah Mohan MONO # 0.6 103/ul Normal 0.3-0.8 [facility] Comment on above: Performed By: #### C BC ####[facility] [address] [place], [place] [address]Dr. Deborah Mohan Monocytes/100 WBC (Bld) 5.3 % Normal 1.7-12.0 [facility] Comment on above: Performed By: #### C BC ####[facility] [address] [place], [place] [address]Dr. Deborah Mohan NEUT # 8.4 103/ul Critically high 1.4-6.5 The [facility] Comment on above: Performed By: #### C BC ####[facility] [address] [place] [id number]. Deborah Mohan Neutrophils/100 WBC (Bld) 72.3 % Normal 43.0-75.0 [facility] Comment on above: Performed By: #### C BC ####[facility] [address] [place] [address]Dr. Deborah Mohan Platelet mean volume (Bld) [Entitic vol] 10.1 fL Normal 9.5-13.5 [facility] Comment on above: Performed By: #### C BC ####[facility] [address] [place] [address]Dr. Deborah Mohan PLT 351 103/ul Normal 150-450 [facility] Comment on above: Performed By: #### C BC ####[facility] [address] [place] [id number]. Deborah Mohan RBC 3.91 106/ul Critically low 4.20-5.40 The [facility] Comment on above: Performed By: #### C BC ####[facility] [address] [place] [id number]. Deborah Mohan WBC 11.6 103/ul Critically high 4.0-11.0 The [facility] Comment on above: Performed By: #### C BC ####[facility] [address] [place] [id number]. Deborah Mohan CTA CHEST WO W CONon [...] 2. Bilateral peripheral fibrosis and/or scarring with mppj-rj-tuccjdab groundglass densities. The groundglass densities are slightly decreased compared to the prior scan. 3. Old calcified granulomas in the chest and abdomen. 4. Large hiatal hernia. 5. Moderate diffuse osteopenia. Electronically authenticated by: BERNARDO DENNY Date: 2021-11-29 20:31 Normal [facility] D-DIMERon 11-29-2021 D-DIMER 1.14 mg/L FEU Critically high <=0.59 [facility] Comment on above: Performed By: #### A NAR #### [facility] [address] [place] [address] Dr. Deborah Mohan D-DIMER COMMENTS SEE BELOW Normal [facility] Comment on above: Result Comment: Incr eases [...] hospitalization. Performed By: #### A NARF #### [facility] [address] [place] [address] Dr. Deborah Mohan PROF CHEM 8 (BAS METB)on Anion gap [Moles/Vol] 11.7 mmol/L Normal [facility] Comment on above: Performed By: #### B MP, HSTROPN #### [facility] [address] [place] [address] Dr. Deborah Mohan Calcium [Mass/Vol] 8.7 mg/dL Normal 8.5-10.1 [facility] Comment on above: Performed By: #### B MP, HSTROPN #### [facility] [address] [place] [address] Dr. Deborah Mohan Chloride [Moles/Vol] 107 mmol/L Normal 98-107 [facility] Comment on above: Performed By: #### B MP, HSTROPN #### [facility] [address] [place] [address] Dr. Deborah Mohan CO2 [Moles/Vol] 25.3 mmol/L Normal 21.0-32.0 [facility] Comment on above: Performed By: #### B MP, HSTROPN #### [facility] [address] [place] [address] Dr. Deborah Mohan Creatinine [Mass/Vol] 0.98 mg/dL Normal 0.55-1.02 [facility] Comment on above: Performed By: #### B MP, HSTROPN #### [facility] [address] [place] [address] Dr. Deborah Mohan EGFR-AF ANGOLAN >60 Normal >=60 [facility] Comment on above: Performed By: #### B MP, HSTROPN #### [facility] [address] [place] [address] Dr. Deborah Mohan EGFR-NON AF ANGOLAN 56 mL/min/1.73m2 Critically low >=60 [facility] Comment on above: Performed By: #### B MP, HSTROPN #### [facility] [address] [place] [address] [address] Deborah Mohan Glucose [Mass/Vol] 105 mg/dL Normal 74-106 [facility] Comment on above: Performed By: #### B MP, HSTROPN #### [facility] [address] [place] [address] [address] Deborah Mohan Potassium [Moles/Vol] 4.0 mmol/L Normal 3.5-5.1 [facility] Comment on above: Performed By: #### B MP, HSTROPN #### [facility] [address] [place] [address] [address] Deborah Mohan Sodium [Moles/Vol] 140 mmol/L Normal 136-145 [facility] Comment on above: Performed By: #### B MP, HSTROPN #### [facility] [address] [place] [address] [address] Deborah Mohan Urea nitrogen [Mass/Vol] 21.0 mg/dL Critically high 7.0-18.0 [facility] Comment on above: Performed By: #### B KYLEE, HSTROPN #### [facility] [address] [place] [address] [address] Deborah Mohan Urea nitrogen/Creatinine [Mass ratio] 21.4 mg/mg Normal [facility] Comment on above: Performed By: #### B MP, HSTROPN #### [facility] [address] [place] [address] [address] Deborah Mohan TROPONIN, HIGH SENSITIVITYon 11-29-2021 HSTROP 4.5 pg/mL Normal 4.0-51.3 [facility] Comment on above: Result Comment: CUT- OFF POINTS HAVE BEEN ESTABLISHED BASED ON THE FOURTH UNIVERSAL DEFINITIONS OF MYOCARDIAL INFARCTION. THE UPPER REFERENCE LIMIT (URL) OF TROPONIN, DEFINED THE 99TH PERCENTILE OF cTnI DISTRIBUTION IN A REFERENCE POPULATION, HAS BEEN CONFIRMED THE DECISION THRESHOLD FOR [place] DIAGNOSIS. Performed By: #### H STROPN ####[facility] [address] [place] [address]Dr. Deborah Mohan HSTROP 6.0 pg/mL Normal 4.0-51.3 [facility] Comment on above: Result Comment: CUT- OFF POINTS HAVE BEEN ESTABLISHED BASED ON THE FOURTH UNIVERSAL DEFINITIONS OF MYOCARDIAL INFARCTION. THE UPPER REFERENCE LIMIT (URL) OF TROPONIN, DEFINED THE 99TH PERCENTILE OF cTnI DISTRIBUTION IN A REFERENCE POPULATION, HAS BEEN CONFIRMED THE DECISION THRESHOLD FOR [place] DIAGNOSIS. Performed By: #### B MP, HSTROPN #### [facility] [address], [place] [address] Dr. Deborah Mohan XR CHEST 1 Von [...] by: KANDY BARRY Date: 2021-11-29 19:20 Normal [facility] XR LSPINE W_OBLS AND FLEX_EX Ton [...] by: RAUDEL ESTRADA Date: 2021-11-12 07:56 Normal [facility] CALCIUMon 11-11-2021 Calcium [Mass/Vol] 9.0 mg/dL Normal 8.5-10.1 [facility] Comment on above: Performed By: #### A NARF #### [facility] [address] [place] [address] [address] Deborah Mohan CREATININEon 11-11-2021 Creatinine [Mass/Vol] 1.47 mg/dL Critically high 0.55-1.02 [facility] Comment on above: Performed By: #### A NARF #### [facility] [address] [place] [address] [address] Deborah Mohan EGFR-AF ANGOLAN 43 mL/min/1.73m2 Critically low >=60 [facility] Comment on above: Performed By: #### A NARF #### [facility] [address] [place] [address] Dr. Deborah Mohan EGFR-NON AF ANGOLAN 35 mL/min/1.73m2 Critically low >=60 [facility] Comment on above: Performed By: #### A NARF #### [facility] [address] [place] [address] Dr. Deborah Mohan Encounters Encounter Date Encounter [...] Start: 05-08-2022 End: 05-08-2022 ambulatory Clarita Leigh Facility[facility] [facility] Start: 05-08-2022 End: 05-08-2022 ambulatory DEPORTATION EXAMINER-C Clarita Leigh Work Phone: [facility] Work Phone: Start: 05-08-2022 End: 05-08-2022 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 procedure DEPORTATION EXAMINER-C Clarita Leigh Work Phone: [facility] Start: 04-08-2022 End: 04-09-2022 ambulatory JOEL RAMON . Facility:[facility] Start: 04-07-2022 End: 04-07-2022 ambulatory NATIVIDAD SILVA Facility:[facility] Start: 03-16-2022 ambulatory VERENA [facility] Start: 03-16-2022 End: 03-16-2022 ambulatory NATIVIDAD SILVA Facility:[facility] Start: 03-12-2022 End: 03-13-2022 ambulatory NATIVIDAD SILVA Facility:[facility] Start: 03-09-2022 End: 03-10-2022 ambulatory NATIVIDAD SILVA Facility:[facility] Start: 03-08-2022 End: 03-09-2022 ambulatory DIANE [facility] Start: 03-05-2022 End: 03-06-2022 ambulatory NATIVIDAD SILVA [...] 04-01-2018 Emergency department patient visit BRANDON RUSSELL [facility] Start: 12-11-2017 End: 12-11-2017 Emergency department patient visit ROBERT HURLEY Facility:[facility] Procedures Date Procedure Procedure Detail Performing Clinician Start: 05-08-2022 Plain X-ray of left wrist DEPORTATION EXAMINER-C Clarita Leigh Work Phone: Start: 05-08-2022 X-ray of left ankle DEPORTATION EXAMINER -C Clarita Leigh Work Phone: Start: 04-01-2018 IP CONSULT TO ORAL SURGERY BRANDON RUSSELL Payers Date Payer Category Payer Medicare [id number] 2022 Self-pay 1961 Medicare [id number] 1955 Unknown [id number] 2.16.84 0.1.346337.3.579.2.593 1953 Unknown [id number] 2.16.84 0.1.724580.3.579.2.593 1953 Unknown [id number] 2.16.84 0.1.636222.3.579.2.593 1953 Unknown [id number] 2.16.84 0.1.195742.3.579.2.593 1953 Unknown [id number] 2.16.84 0.1.282912.3.579.2.593 1953 Unknown [id number] 2.16.84 0.1.212460.3.579.2.593 1953 Unknown [id number] 2.16.84 0.1.354672.3.579.2.593 1953 Unknown [id number] 2.16.84 0.1.444150.3.579.2.593 1953 Unknown [id number] 2.16.84 0.1.713258.3.579.2.593 1953 Unknown [id number] 2.16.84 0.1.402033.3.579.2.593 1953 Unknown [id number] 2.16.84 0.1.042767.3.579.2.593 1953 Unknown [id number] 2.16.84 0.1.866476.3.579.2.593 1953 Unknown [id number] 2.16.84 0.1.475739.3.579.2.593 1953 Unknown [id number] 2.16.84 0.1.264943.3.579.2.593 1953 Unknown [id number] 2.16.84 0.1.217941.3.579.2.593 1953 Unknown [id number] 2.16.84 0.1.226922.3.579.2.593 1953 Unknown [id number] 2.16.84 0.1.969740.3.579.2.593 1953 Unknown [id number] 2.16.84 0.1.404061.3.579.2.593 1953 Unknown [id number] 2.16.84 0.1.955301.3.579.2.593 1953 Unknown [id number] 2.16.84 0.1.102595.3.579.2.593 1953 Unknown [id number] 2.16.84 0.1.840920.3.579.2.593 1953 Unknown [id number] 2.16.84 0.1.806744.3.579.2.593 Medicare [id number] Unknown MMO [id number] Unknown [place] BC/BS [id number] Unknown [id number] 2.16.8 40.1.755106.3.579.2.531 Social History Date Type Detail Facility Tobacco smoking stat [facility] Unknown if ever smoked [facility] Work Phone: Start: 1955 Sex Assigned At Female F [facility] Clinical Notes 11-05-2021 to 07-08-2022 Note [...] in the clinic in three months. [facility] 06-24-2022 Note CONSULTATION CONSULTATION DATE: 06/24/2022 [...] at a time, as she works at [employer]. Current medications include Percocet 5/325 daily, diclofenac [...] pending approval for her knee injections. [facility] 04-08-2022 Note CONSULTATION CONSULTATION DATE: 04/08/2022 [...] three months' time unless otherwise indicated. [facility] 03-16-2022 Note Mildly displaced fra cture of upper sternum. Referral from Natividad Silva NP [facility] 03-16-2022 Note Mildly displaced fra cture [...] past 36 hour(s)). No follow-ups on file. [facility] 03-16-2022 Note Subjective Patient ID: Mary [...] process. We will see her as needed. [facility] 03-09-2022 Note CONSULTATION CONSULTATION DATE: 03/09/2022 [...] to proceed. CC: Natividad Silva CNP [facility] 03-08-[address] scan from [facility] 01-28-2022 Note CONSULTATION CONSULTATION DATE: 01/30/2022 [...] and re-evaluation of her bursa injection. [facility] 01-28-2022 Note CONSULTATION PROCEDURE DATE: 01/30/2022 [...] be followed up in the clinic. [facility] 11-12-2021 Note PROCEDURE: XR HIPS B [...] by: RAUDEL ESTRADA Date: 2021-11-12 07:50 [facility] 11-05-2021 Note CONSULTATION PROCEDURE DATE:11/05/2021 PREOPERATIVE [...] will be followed up in the office. [facility] Signed and Approved by: JOEL RAMON . 11/18/2021 16:24:00 [facility] 11-05-2021 Note CONSULTATION CONSULTATION DATE: 11/05/2021 [...] time, was working half a day at [employer] and since then has increased to full [...] in three months' time unless otherwise indicated. [facility] Signed and Approved by: JOEL RAMON . 11/18/2021 16:24:00 [facility] Evaluation note No assessment information availa ble [facility] Work Phone: Summary Purpose Family History [...] and content) DATE CREATED AUTHOR 12/21/2017 [facility] DATE CREATED AUTHOR AUTHOR'S ORGANIZ ATION 05/01/2018 [facility] DATE CREATED AUTHOR AUTHOR'S ORGANIZ ATION 03/21/2022 [facility] DATE CREATED AUTHOR AUTHOR'S ORGANIZ ATION 05/17/2022 [facility] DATE CREATED AUTHOR AUTHOR'S ORGANIZ ATION 10/06/2022 [facility] Care Teams (unrecognized sec tion and [...] [facility] [employer] [facility]. provides no warranty or guarantee of the accuracy or completeness of information in this document.
[2023-07-12 08:04] VITALS: BP 160/78; PULSE 56; RESP 16; TEMP 36.3; O2SAT 98
[2023-07-12 08:45] VITALS: BP 183/79; BP 195/79; PULSE 53; PULSE 54; RESP 18; O2SAT 97
[2023-07-12] MEDS: BUPIVACAINE HCL 0.25% PF 25 MG/10 ML VIAL 4 ML INJ (08:50)
--- NOTE | 2023-07-12 08:58 | P.ON_ITS ---
Date of procedure: 07/12/23 Pre-op diagnosis: Lumbar spondylosis Post-op diagnosis: same as pre-op Procedure: Bilateral Lumbar 1/2, 2/3 medial branch block Under fluoroscopic guidance Solution injected: 2millilitersMarcaine 0.25% Anesthesia :none Immediate complications none Time out process compliant After informed consent obtained from the patient placed in the [employer] proposition . area was prepped and draped in a sterile fashion using Cloraprep .25 gauge spinal needle inserted over each of the above mentioned target areas . [place] were directed towards the target under fluoroscopic guidance . after encountering each of the targets , no indication of intravascular intraneuronal or intrathecal needle tip placement. Then 0 .5 to 1 Milliliter was injected at each level. [place] removed postoperatively. patient transferred to recovery in stable condition to be discharged home after meeting criteria Anesthesia: Local Surgeon: Varun Vicente Condition: stable
== END 2023-07-12 08:54 | disposition home or self-care (01) ==
LOC: SURGOUT 07:30
PROVIDERS: PCP Nurse Practitioner Family; Visit Provider Anesthesiology Pain Medicine
DX: M47.816 Spondylosis without myelopathy or radiculopathy, lumbar region (principal)
CPT/HCPCS: 64493; 64494; J0665

== ENCOUNTER 2023-07-21 09:57 | Outpatient (OUT) | payer MEDICARE, SELFPAY ==
--- OUTSIDE RECORDS SUMMARY | 2023-07-21 10:15 | XMS_ITS | CCD ---
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 PROPOSAL LEAD WRITER, HSTROPN, CMP #### [facility] [address] [place] [address] Dr. Deborah Mohan Atypical pANCA 1:160 Critically high Neg:<1:20 [facility] Comment on above: Result Comment: The atypical pANCA pattern has been observed in a significant percentage of patients with ulcerative colitis, primary sclerosing cholangitis and autoimmune hepatitis. Performed at: CB Performed By: #### B PROPOSAL LEAD WRITER, HSTROPN, CMP #### [facility] [address] [place] [address] Dr. Deborah Mohan Cytoplasmic (C-ANCA) <1:20 Normal Neg:<1:20 [facility] Comment on above: Result Comment: Perf ormed at: CB Performed By: #### B PROPOSAL LEAD WRITER, HSTROPN, CMP #### [facility] [address] [place] [address] Dr. Deborah Mohan Perinuclear (P-ANCA) <1:20 Normal Neg:<1:20 [facility] Comment on above: Result Comment: The presence of positive fluorescence exhibiting P-ANCA or C-ANCA patterns alone is not specific for the diagnosis of Marlin's Granulomatosis (WG) or microscopic polyangiitis. Decisions about treatment should not be based solely on ANCA IFA results. The International ANCA Group Consensus recommends follow up testing of positive sera with both NC-3 and MPO-ANCA enzyme immunoassays. As many as 5% serum samples are positive only by EIA. Ref. AM J Clin Pathol 1999;111:507-513. Performed at: CB Performed By: #### B PROPOSAL LEAD WRITER, HSTROPN, CMP #### [facility] [address] [place], [place] [address] Dr. Deborah Mohan ANTISCLERODERMA ABon 022 Antiscleroderma-70 Antibodies <0.2 Normal 0.0-0.9 [facility] Comment on above: Performed By: #### A NARF #### [facility] [address] [place], [place] [address] CHEST WO CONon [...] findings, as described above. Normal [facility] CYCLIC CITRULLINATED PEPTIDE AB (CCP)on 03-09-2022 CCP Antibodies IgG/IgA 6 units Normal 0-19 [facility] Comment on above: Result Comment: Nega tive <20 Weak positive 20 - 39 Moderate positive 40 - 59 Strong positive >59 Performed By: #### B PROPOSAL LEAD WRITER, HSTROPN, CMP #### [facility] [address] [place], [place] [address] Dr. Deborah Mohan IGG SUBCLASSES (1-4) AND TOT Kade 03-09-2022 IgG, Subclass 1 448 mg/dL Normal 248-810 [facility] Comment on above: Performed By: #### B PROPOSAL LEAD WRITER, HSTROPN, CMP #### [facility] [address] [place], [place] [address] Dr. Deborah Mohan IgG, Subclass 2 253 mg/dL Normal 130-555 [facility] Comment on above: Performed By: #### B PROPOSAL LEAD WRITER, HSTROPN, CMP #### [facility] [address] [place], [place] [address] Dr. Deborah Mohan IgG, Subclass 3 95 mg/dL Normal 15-102 [facility] Comment on above: Performed By: #### B PROPOSAL LEAD WRITER, HSTROPN, CMP #### [facility] [address] [place] [address] [address] Deborah Mohan IgG, Subclass 4 10 mg/dL Normal 2-96 [facility] Comment on above: Performed By: #### B PROPOSAL LEAD WRITER, HSTROPN, CMP #### [facility] [address] [place] [address] [address] Deborah Mohan Immunoglobulin G, Qn, Serum 658 mg/dL Normal 586-1602 [facility] Comment on above: Performed By: #### B PROPOSAL LEAD WRITER, HSTROPN, CMP #### [facility] [address] [place] [address] Dr. Deborah Mohan IMMUNOGLOBULIN E, TOTALon Immunoglobulin E, Total 5 IU/mL Critically low 6-495 [facility] Comment on above: Performed By: #### I GETOT ####[facility] [address] [place] [address]Dr. Deborah Mohan MICHELL EIA W/REFLEX 5 BIOMARKER Son 03-08-2022 MICHELL Direct Negative Normal Negative [facility] Comment on above: Performed By: #### A NARF #### [facility] [address] [place] [address] [address] Deborah Mohan ANGIOTENSION-CONVERTING ENZY ME (FRANCESCO)on 03-08-2022 FRANCESCO 32 U/L Normal 14-82 [facility] Comment on above: Performed By: #### A NGIOC ####[facility] [address]ivvios[address] [place] [address]Dr. Deborah Mohan ANTIGLOMERULAR BASEMENT MEMB ROMMEL ABSon 03-08-2022 Anti-GBM Antibodies <0.2 Normal 0.0-0.9 [facility] Comment on above: Performed By: #### A GBM #### [facility] [address] [place] [address] [address] Deborah Mohan IMMUNOGLOBULIN IGA QUANTITIA VEon 03-06-2022 Immunoglobulin A, Qn, Serum 229 mg/dL Normal 87-352 [facility] Comment on above: Performed By: #### A NARF #### [facility] [address] [place] [address] [address] Deborah Mohan IMMUNOGLOBULIN IGM QUANTITAT IVEon 03-06-2022 Immunoglobulin M, Qn, Serum 83 mg/dL Normal 26-217 [facility] Comment on above: Performed By: #### B PROPOSAL LEAD WRITER, HSTROPN, CMP #### [facility] [address] [place] [address] [address] Deborah Mohan RHEUMATOID FACTORon 03-06-20 RA Latex Turbid. 10.9 IU/mL Normal <14.0 [facility] Comment on above: Performed By: #### R F ####[facility] [address]fr[address] [place] [address]DrAnkur Mohan CREATININEon 03-05-2022 Creatinine [Mass/Vol] 1.38 mg/dL Critically high 0.55-1.02 [facility] Comment on above: Performed By: #### C MELVINA ####[facility] [address] [place] [address]Dr. Deborah Mohan EGFR-AF THAI 46 mL/min/1.73m2 Critically low >=60 [facility] Comment on above: Performed By: #### C MELVINA ####[facility] [address] [place] [address]Dr. Deborah Mohan EGFR-NON AF THAI 38 mL/min/1.73m2 Critically low >=60 [facility] Comment on above: Performed By: #### C MELVINA ####[facility] [address] [place] [address]DrAnkur Mohan SED RATE WESTERGRENon 2021 SED RATE 92 mm/hr Critically high <=30 [facility] Comment on above: Performed By: #### B PROPOSAL LEAD WRITER, HSTROPN, CMP #### [facility] [address] [place] [address] [address] Deborah Mohan XR DEXA BONE DENSITYon [...] by: ROBERT CONDON Date: 2022-03-05 16:56 Normal [facility] XR CHEST 1 Von 03-01-2022 XR [...] by: ROBERT NOVAK Date: 2022-02-28 22:27 Normal [facility] XR KNEE LUANA 4V or >on [...] by: RAUDEL ESTRADA Date: 2022-01-29 11:09 Normal [facility] CBC AUTO DIFFon 11-29-2021 BASO # 0.1 103/ul Normal 0.0-0.1 [facility] Comment on above: Performed By: #### C BC ####[facility] [address] [place], [place] [address]DrAnkur Mohan Basophils/100 WBC (Bld) 0.8 % Normal 0.2-2.0 [facility] Comment on above: Performed By: #### C BC ####[facility] [address] [place], [place] [address]Dr. Deborah Mohan EO # 0.3 103/ul Normal 0.0-0.7 [facility] Comment on above: Performed By: #### C BC ####[facility] [address] [place], [place] [address]Dr. Deborah Mohan Eosinophils/100 WBC (Bld) 2.2 % Normal 0.9-7.0 [facility] Comment on above: Performed By: #### C BC ####[facility] [address] [place], [place] [address]Dr. Deborah Mohan Erythrocyte distribution width (RBC) [Ratio] 21.2 % Critically high 11.0-15.0 [facility] Comment on above: Performed By: #### C BC ####[facility] [address]qc[address] [place], [place] [address]Dr. Deborah Mohan Hematocrit (Bld) [Volume fraction] 33.2 % Critically low 36.0-48.0 [facility] Comment on above: Performed By: #### C BC ####[facility] [address] [place], [place] [address]Dr. Deborah Mohan Hemoglobin (Bld) [Mass/Vol] 10.3 g/dL Critically low 12.0-16.0 [facility] Comment on above: Performed By: #### C BC ####[facility] [address] [place], [place] [address]Dr. Deborah Mohan IG # 0.11 10e3/ul Critically high 0.00-0.03 [facility] Comment on above: Performed By: #### C BC ####[facility] [address] [place], [place] [address]Dr. Deborah Mohan IG % 0.9 % Critically high 0.0-0.5 [facility] Comment on above: Performed By: #### C BC ####[facility] [address] [place], [place] [address]Dr. Ann-Mariemich Mohan LYMPH # 2.2 103/ul Normal 1.2-3.8 [facility] Comment on above: Performed By: #### C BC ####[facility] [address]xbdag[address] [place] [address]Dr. Ann-Mariemich Mohan Lymphocytes/100 WBC (Bld) 18.5 % Critically low 20.5-60.0 [facility] Comment on above: Performed By: #### C BC ####[facility] Z[address]ychrp40[address] [place] [address]Dr. Deborah Mohan MANUAL DIFF REQ NO Normal [facility] Comment on above: Performed By: #### C BC ####[facility] Xjanfffgyh[address] [place] [address]Dr. Ann-Mariemich Mohan MCH (RBC) [Entitic mass] 26.3 pg Critically low 26.7-34.0 [facility] Comment on above: Performed By: #### C BC ####[facility] [address] [place], [place] [address]Dr. Deborah Marques MCHC (RBC) [Mass/Vol] 31.0 g/dL Normal 29.9-35.2 [facility] Comment on above: Performed By: #### C BC ####[facility] [address] [place], [place] [address]Dr. Deborah Mohan MCV (RBC) [Entitic vol] 84.9 fL Normal 81.0-99.0 [facility] Comment on above: Performed By: #### C BC ####[facility] [address] [place], [place] [address]Dr. Deborah Mohan MONO # 0.6 103/ul Normal 0.3-0.8 [facility] Comment on above: Performed By: #### C BC ####[facility] [address] [place], [place] [address]Dr. Deborah Mohan Monocytes/100 WBC (Bld) 5.3 % Normal 1.7-12.0 [facility] Comment on above: Performed By: #### C BC ####[facility] [address] [place], [place] [address]Dr. Deborah Mohan NEUT # 8.4 103/ul Critically high 1.4-6.5 [facility] Comment on above: Performed By: #### C BC ####[facility] [address] [place] [address]Dr. Deborah Mohan Neutrophils/100 WBC (Bld) 72.3 % Normal 43.0-75.0 [facility] Comment on above: Performed By: #### C BC ####[facility] [address] [place] [address]Dr. Deborah Mohan Platelet mean volume (Bld) [Entitic vol] 10.1 fL Normal 9.5-13.5 [facility] Comment on above: Performed By: #### C BC ####[facility] [address] [place] [address]Dr. Deborah Mohan PLT 351 103/ul Normal 150-450 [facility] Comment on above: Performed By: #### C BC ####[facility] [address] [place] [address]Dr. Deborah Mohan RBC 3.91 106/ul Critically low 4.20-5.40 [facility] Comment on above: Performed By: #### C BC ####[facility] [address]yt[address] [place] [address]Dr. Deborah Mohan WBC 11.6 103/ul Critically high 4.0-11.0 The [facility] [place] Comment on above: Performed By: #### C BC ####[facility] [address] [place] [address]Dr. Deborah Mohan CTA CHEST WO W CONon [...] 2. Bilateral peripheral fibrosis and/or scarring with xvhs-in-ygggtpqh groundglass densities. The groundglass densities are slightly decreased compared to the prior scan. 3. Old calcified granulomas in the chest and abdomen. 4. Large hiatal hernia. 5. Moderate diffuse osteopenia. Electronically authenticated by: BERNARDO DENNY Date: 2021-11-29 20:31 Normal [facility] D-DIMERon 11-29-2021 D-DIMER 1.14 mg/L FEU Critically high <=0.59 [facility] Comment on above: Performed By: #### A NAR #### [facility] [address] [place] [address] Dr. Deborah Mohan D-DIMER COMMENTS SEE BELOW Normal [facility] [place] Comment on above: Result Comment: Incr eases [...] Performed By: #### A NARF #### [facility] [address] [place] [address] Dr. Deborah Mohan PROF CHEM 8 (BAS METB)on Anion gap [Moles/Vol] 11.7 mmol/L Normal [facility] Comment on above: Performed By: #### B MP, HSTROPN #### [facility] [address] [place] [address] Dr. Deborah Mohan Calcium [Mass/Vol] 8.7 mg/dL Normal 8.5-10.1 [facility] Comment on above: Performed By: #### B MP, HSTROPN #### [facility] [address] [place] [address] Dr. Deborah Mohan Chloride [Moles/Vol] 107 mmol/L Normal 98-107 [facility] Comment on above: Performed By: #### B MP, HSTROPN #### [facility] [address] [place] [address] Dr. Deborah Mohan CO2 [Moles/Vol] 25.3 mmol/L Normal 21.0-32.0 [facility] [place] Comment on above: Performed By: #### B MP, HSTROPN #### [facility] [address] [place] [address] Dr. Deborah Mohan Creatinine [Mass/Vol] 0.98 mg/dL Normal 0.55-1.02 [facility] Comment on above: Performed By: #### B MP, HSTROPN #### [facility] [address] [place] [address] Dr. Deborah Mohan EGFR-AF THAI >60 Normal >=60 [facility] [place] Comment on above: Performed By: #### B MP, HSTROPN #### [facility] [address] [place] [address] Dr. Deborah Mohan EGFR-NON AF THAI 56 mL/min/1.73m2 Critically low >=60 [facility] Comment on above: Performed By: #### B MP, HSTROPN #### [facility] [address] [place] [address] [address] Deborah Mohan Glucose [Mass/Vol] 105 mg/dL Normal 74-106 [facility] Comment on above: Performed By: #### B MP, HSTROPN #### [facility] [address] [place] [address] [address] Deborah Mohan Potassium [Moles/Vol] 4.0 mmol/L Normal 3.5-5.1 [facility] Comment on above: Performed By: #### B MP, HSTROPN #### [facility] [address] [place] [address] [address] Deborah Mohan Sodium [Moles/Vol] 140 mmol/L Normal 136-145 [facility] Comment on above: Performed By: #### B MP, HSTROPN #### [facility] [address] [place] [address] [address] Deborah Mohan Urea nitrogen [Mass/Vol] 21.0 mg/dL Critically high 7.0-18.0 [facility] Comment on above: Performed By: #### B KYLEE, HSTROPN #### [facility] [address] [place] [address] [address] Deborah Mohan Urea nitrogen/Creatinine [Mass ratio] 21.4 mg/mg Normal [facility] Comment on above: Performed By: #### B MP, HSTROPN #### [facility] [address] [place] [address] [address] Deborah Mohan TROPONIN, HIGH SENSITIVITYon 11-29-2021 HSTROP 4.5 pg/mL Normal 4.0-51.3 [facility] Comment on above: Result Comment: CUT- OFF POINTS HAVE BEEN ESTABLISHED BASED ON THE FOURTH UNIVERSAL DEFINITIONS OF MYOCARDIAL INFARCTION. THE UPPER REFERENCE LIMIT (URL) OF TROPONIN, DEFINED THE 99TH PERCENTILE OF cTnI DISTRIBUTION IN A REFERENCE POPULATION, HAS BEEN CONFIRMED THE DECISION THRESHOLD FOR ME DIAGNOSIS. Performed By: #### H STROPN ####[facility] [address] [place] [address]Dr. Deborah Mohan HSTROP 6.0 pg/mL Normal 4.0-51.3 [facility] Comment on above: Result Comment: CUT- OFF POINTS HAVE BEEN ESTABLISHED BASED ON THE FOURTH UNIVERSAL DEFINITIONS OF MYOCARDIAL INFARCTION. THE UPPER REFERENCE LIMIT (URL) OF TROPONIN, DEFINED THE 99TH PERCENTILE OF cTnI DISTRIBUTION IN A REFERENCE POPULATION, HAS BEEN CONFIRMED THE DECISION THRESHOLD FOR ME DIAGNOSIS. Performed By: #### B MP, HSTROPN #### [facility] [address] [place], [place] [address] Dr. Deborah Mohan XR CHEST 1 Von [...] by: KANDY BARRY Date: 2021-11-29 19:20 Normal [facility] XR LSPINE W_OBLS AND FLEX_EX Ton [...] by: RAUDEL ESTRADA Date: 2021-11-12 07:56 Normal [facility] CALCIUMon 11-11-2021 Calcium [Mass/Vol] 9.0 mg/dL Normal 8.5-10.1 [facility] Comment on above: Performed By: #### A NARF #### [facility] [address] [place] [address] [address] Deborah Mohan CREATININEon 11-11-2021 Creatinine [Mass/Vol] 1.47 mg/dL Critically high 0.55-1.02 [facility] Comment on above: Performed By: #### A NARF #### [facility] [address] [place] [address] [address] Deborah Mohan EGFR-AF THAI 43 mL/min/1.73m2 Critically low >=60 [facility] Comment on above: Performed By: #### A NARF #### [facility] [address] [place] [address] Dr. Deborah Mohan EGFR-NON AF THAI 35 mL/min/1.73m2 Critically low >=60 [facility] Comment on above: Performed By: #### A NARF #### [facility] [address] [place] [address] Dr. Deborah Mohan Encounters Encounter Date Encounter [...] Start: 05-08-2022 End: 05-08-2022 ambulatory Clarita Leigh Facility:[facility] Start: 05-08-2022 End: 05-08-2022 ambulatory TERRITORY ACCOUNT MANAGER-C Clarita Leigh Work Phone: [facility] Work Phone: Start: 05-08-2022 End: 05-08-2022 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 procedure TERRITORY ACCOUNT MANAGER-C Clarita Leigh Work Phone: [facility] Start: 04-08-2022 End: 04-09-2022 ambulatory JOEL RAMON . Facility:[facility] Start: 04-07-2022 End: 04-07-2022 ambulatory NATIVIDAD SILVA Facility:[facility] Start: 03-16-2022 ambulatory VERENA [facility] Start: 03-16-2022 End: 03-16-2022 ambulatory NATIVIDAD SILVA Facility:[facility] Start: 03-12-2022 End: 03-13-2022 ambulatory NATIVIDAD SILVA Facility:[facility] Start: 03-09-2022 End: 03-10-2022 ambulatory NATIVIDAD SILVA Facility:[facility] Start: 03-08-2022 End: 03-09-2022 ambulatory DIANE [facility] Start: 03-05-2022 End: 03-06-2022 ambulatory NATIVIDAD SILVA [...] 04-01-2018 Emergency department patient visit BRANDON RUSSELL [facility] Start: 12-11-2017 End: 12-11-2017 Emergency department patient visit ROBERT HURLEY Facility:[facility] Procedures Date Procedure Procedure Detail Performing Clinician Start: 05-08-2022 Plain X-ray of left wrist TERRITORY ACCOUNT MANAGER-C Clarita Leigh Work Phone: Start: 05-08-2022 X-ray of left ankle TERRITORY ACCOUNT MANAGER -C Clarita Leigh Work Phone: Start: 04-01-2018 IP CONSULT TO ORAL SURGERY BRANDON RUSSELL Payers Date Payer Category Payer Medicare [id number] 2022 Self-pay 1961 Medicare [id number] 1955 Unknown [id number] 2.16.84 0.1.380625.3.579.2.593 1955 Unknown [id number] 2.16.84 0.1.827815.3.579.2.593 1955 Unknown [id number] 2.16.84 0.1.421098.3.579.2.593 1955 Unknown [id number] 2.16.84 0.1.577831.3.579.2.593 1953 Unknown [id number] 2.16.84 0.1.815858.3.579.2.593 1953 Unknown [id number] 2.16.84 0.1.207369.3.579.2.593 1953 Unknown [id number] 2.16.84 0.1.838108.3.579.2.593 1953 Unknown [id number] 2.16.84 0.1.162414.3.579.2.593 1953 Unknown [id number] 2.16.84 0.1.949059.3.579.2.593 1953 Unknown [id number] 2.16.84 0.1.388870.3.579.2.593 1953 Unknown [id number] 2.16.84 0.1.615259.3.579.2.593 1953 Unknown [id number] 2.16.84 0.1.447805.3.579.2.593 1953 Unknown [id number] 2.16.84 0.1.268783.3.579.2.593 1953 Unknown [id number] 2.16.84 0.1.921903.3.579.2.593 1953 Unknown [id number] 2.16.84 0.1.418931.3.579.2.593 1953 Unknown [id number] 2.16.84 0.1.653098.3.579.2.593 1953 Unknown [id number] 2.16.84 0.1.413430.3.579.2.593 1953 Unknown [id number] 2.16.84 0.1.806603.3.579.2.593 1953 Unknown [id number] 2.16.84 0.1.821966.3.579.2.593 1953 Unknown [id number] 2.16.84 0.1.299557.3.579.2.593 1953 Unknown [id number] 2.16.84 0.1.672184.3.579.2.593 1955 Unknown [id number] 2.16.84 0.1.701308.3.579.2.593 Medicare [id number] Unknown MMO [id number] Unknown [place] BC/BS [id number] Unknown [id number] 2.16.8 40.1.638416.3.579.2.531 Social History Date Type Detail Facility Tobacco smoking stat [facility] Unknown if ever smoked [facility] Work Phone: Start: 1955 Sex Assigned At Female F [facility] Clinical Notes 11-05-2021 to 07-08-2022 Note [...] the clinic in three months. [facility] 06-24-2022 Note CONSULTATION CONSULTATION DATE: 06/24/2022 [...] at a time, as she works at [employer]. Current medications include Percocet 5/325 daily, diclofenac [...] approval for her knee injections. [facility] 04-08-2022 Note CONSULTATION CONSULTATION DATE: 04/08/2022 [...] months' time unless otherwise indicated. [facility] 03-16-2022 Note Mildly displaced fra cture of upper sternum. Referral from Natividad Silva NP [facility] 03-16-2022 Note Mildly displaced fra cture [...] past 36 hour(s)). No follow-ups on file. [facility] 03-16-2022 Note Subjective Patient ID: Mary [...] process. We will see her as needed. [facility] 03-09-2022 Note CONSULTATION CONSULTATION DATE: 03/09/2022 [...] proceed. CC: Natividad Silva CNP [facility] 03-08-[address] scan from [facility] 01-28-2022 Note CONSULTATION CONSULTATION DATE: 01/30/2022 HISTORY [...] re-evaluation of her bursa injection. [facility] 01-28-2022 Note CONSULTATION PROCEDURE DATE: 01/30/2022 [...] followed up in the clinic. [facility] 11-12-2021 Note PROCEDURE: XR HIPS B [...] RAUDEL ESTRADA Date: 2021-11-12 07:50 [facility] 11-05-2021 Note CONSULTATION PROCEDURE DATE:11/05/2021 PREOPERATIVE [...] will be followed up in the office. [facility] Signed and Approved by: JOEL RAMON . 11/18/2021 16:24:00 [facility] 11-05-2021 Note CONSULTATION CONSULTATION DATE: 11/05/2021 [...] time, was working half a day at [employer] and since then has increased to full [...] in three months' time unless otherwise indicated. [facility] Signed and Approved by: JOEL RAMON . 11/18/2021 16:24:00 [facility] Evaluation note No assessment information availa [facility] Work Phone: Summary Purpose Family History [...] and content) DATE CREATED AUTHOR 12/21/2017 [facility] DATE CREATED AUTHOR AUTHOR'S ORGANIZ ATION 05/01/2018 [facility] DATE CREATED AUTHOR AUTHOR'S ORGANIZ ATION 03/21/2022 [facility] DATE CREATED AUTHOR AUTHOR'S ORGANIZ ATION 05/17/2022 [facility] DATE CREATED AUTHOR AUTHOR'S ORGANIZ ATION 10/06/2022 [facility] Care Teams (unrecognized sec tion and content) [...] BE BASED ON THE PRIMARY CLINICAL RECORDS. [facility] [employer] [facility] provides no warranty or guarantee of the accuracy or completeness of information in this document.
--- NOTE | 2023-07-21 10:20 | P.CN_ITS ---
Consult Note: HPI Data of Consult Patient: known to practice within the last 3 years Requesting Physician: Shweta Crowley NP Primary Care Provider: POLO SILVA Consult Narrative Reason for consult: f/u Narrative: Mary Vick a pleasant 67 year old female presents for evaluation and management of low back pain. Today rating pain 7/10 in bilateral low back and bilateral hips, ache and stiffness. Pain is worse with all activity. Finding mild benefit from current medication regimen but still having functional difficulty and making it harder to complete tasks at work. Patient reports 100% improvement in pain 2 hours following bilateral L1-2 L2-3 facet medial branch block #1, however patient reports her bilateral hip pain is most bothersome and would like to discuss repeating bilateral GTB injection as previous injections provided >75% improvement for 3 months. cc:: CC: Shweta Crowley NP Review of Systems ROS Status of ROS 10 or more systems reviewed and unremark able except as noted in history and below Musculoskeletal Reports: back pain and joint pain PFSH PFSH Medical History Surgical History Hx of tubal ligation ?Z98.51 - Tubal ligation status (ICD-10) History of appendectomy ?Z90.49 - Acquired absence of other specified parts of digestive tract (ICD- 10) History of hysterectomy ?Z90.710 - Acquired absence of both cervix and uterus (ICD-10) Social History Smoking status: Former smoker Meds Home Medications and Allergies Home Medications Medication Instructions Recorded Confirmed Type albuterol sulfate 90 mcg/actuation 2 inh inhalation Q6H 10/21/22 07/12/23 History breath activated powder inhaler aripiprazole 30 mg tablet (Abilify) 30 mg PO QDAY 10/21/22 07/12/23 History aspirin 81 mg capsule 81 mg PO QDAY 10/21/22 07/12/23 History diclofenac sodium 50 mg 50 mg PO BID 10/21/22 07/12/23 History tablet,delayed release ferrous sulfate 325 mg (65 mg 325 mg PO BID 10/21/22 07/12/23 History iron) tablet (Feosol) fluoxetine 40 mg capsule (Prozac) 80 mg PO QDAY 10/21/22 07/12/23 History hydroxyzine HCl 25 mg tablet 25 mg PO BID PRN unknown 10/21/22 07/12/23 History levothyroxine 50 mcg tablet 50 mcg PO QDAY 10/21/22 07/12/23 History (Euthyrox) magnesium oxide 400 mg PO QDAY 10/21/22 07/12/23 History metoprolol tartrate 25 mg tablet 25 mg PO BID 10/21/22 07/12/23 History omeprazole 40 mg capsule,delayed 40 mg PO BID 10/21/22 07/12/23 History release oxycodone-acetaminophen 5 mg-325 1 tab PO QDAY PRN pain 10/21/22 07/12/23 History mg tablet potassium chloride 10 mEq 10 meq PO BID 10/21/22 07/12/23 History tablet,extended release (K-Tab) ropinirole 1 mg tablet 1 mg PO QDAY 10/21/22 07/12/23 History vitamins A,C,J-glbu-vueobu 4,296 1 cap PO BID 10/21/22 07/12/23 History mcg-226 mg-90 mg capsule (ICaps AREDS) oxycodone-acetaminophen 5 mg-325 1 tab PO Q6H PRN pain #30 tabs 01/26/23 07/12/23 Rx mg tablet (Percocet) oxycodone-acetaminophen 5 mg-325 1 tab PO DAILY PRN pain #30 tabs 02/17/23 07/12/23 Rx mg tablet (Percocet) oxycodone-acetaminophen 5 mg-325 1 tab PO DAILY PRN pain #30 tabs 03/21/23 07/12/23 Rx mg tablet (Percocet) oxycodone-acetaminophen 5 mg-325 1 tab PO DAILY PRN pain #30 tabs 04/19/23 07/12/23 Rx mg tablet (Percocet) oxycodone-acetaminophen 5 mg-325 1 tab PO DAILY PRN pain #30 tabs 05/19/23 07/12/23 Rx mg tablet (Percocet) oxycodone-acetaminophen 5 mg-325 1 tab PO DAILY PRN pain #30 tabs 06/22/23 07/12/23 Rx mg tablet (Endocet) Allergies Allergy/AdvReac Type Severity Reaction Status Date / Time sumatriptan [From Imitrex] Allergy Severe Verified 07/12/23 08:01 Exam Constitutional Documenting provider has reviewed patient's vital signs: yes Common normals: no apparent distress, oriented x3, healthy appearing, alert and well nourished General appearance: cooperative HENIA Common normals: normocephalic, hearing grossly normal bilaterally and moist oral mucous membranes Head and scalp: normocephalic Eye Common normals: PERRL Pupil: PERRL Neck & C-Spine Common normals: full ROM General: normal visual inspection Chest Common normals: inspection of chest normal Respiratory Common normals: normal respiratory effort, no retractions and no use of accessory muscles Back & Pelvis Lumbar spine/lower back: ROM limited, pain with ROM and straight leg raise negative bilaterally Other: predominately axial low back pain no radiculopathy Extremity Common normals: normal to inspection and full ROM Other: moderate pain over bilateral GTB mild pain with left internal log roll Neuro Common normals: oriented x3, CN's II-XII intact bilaterally, moves all extremities, no focal motor deficits, no sensory deficits noted and deep tendon reflexes 2+ bilaterally Sensorium/orientation: alert Gait (neuro): antalgic Motor exam: strength 5/5 throughout and no movement abnormalities noted Psych Common normals: mental status grossly normal, thought process normal, cooperative, affect normal, speech normal and activity/motor behavior normal Speech: normal speech Thought process: normal thought process Results Additional Findings Additional findings: I have checked an [place]AR[place] report on this patient today and there are no aberrancies noted in the prescribing history.?? A drug screen was completed and reviewed within the last year, and if there has not been a drug screen completed we ordered one today to monitor higher risk, state monitored pain medication use. As part of providing excellent, safe, comprehensive care, the following was completed at our patient's visit: 1. A medication reconciliation and review to ensure accurate knowledge of current/active medications, including asking our patients to inform us about any [id number] medications or herbal remedies/nutritional supplements/alternative remedies. 2. A review to specifically ensure our patients have had annual screening for: elevated body mass index (BMI), tobacco use, screening for depression, and screening for unhealthy alcohol use. When screening is concerning, patients are provided with education and the specific recommendation to discuss the concerning health issue and treatment options with their primary care provider. Assessment and Plan Assessment and Plan (1) Greater trochanteric bursitis of both hips: (2) Encounter for long-term opiate analgesic use: (3) Thoracic spondylosis: (4) Lumbar spondylosis: (5) Muscle spasm: Plan bilateral GT bursa injections with Dr Woodruff continue current medications, tolerating well without side effects, continues to find functional improvement f/u 1-2 weeks after injections. will revist lumbar facet blocks working towards RFA
== END 2023-07-21 09:58 | disposition home or self-care (01) ==
LOC: PM 09:57
PROVIDERS: PCP Nurse Practitioner Family; Visit Provider Nurse Practitioner
DX: M70.62 Trochanteric bursitis, left hip (principal); M70.61 Trochanteric bursitis, right hip; Z79.891 Long term (current) use of opiate analgesic; M47.814 Spondylosis without myelopathy or radiculopathy, thoracic region; M47.816 Spondylosis without myelopathy or radiculopathy, lumbar region; M62.838 Other muscle spasm
CPT/HCPCS: G0463

== ENCOUNTER 2023-08-01 12:01 | Outpatient (OUT) | payer MEDICARE, SELFPAY ==
--- OUTSIDE RECORDS SUMMARY | 2023-08-01 12:21 | XMS_ITS | CCD ---
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 Critically high 0.55-1.02 [facility] Comment on above: Performed By: #### H DENIS, CMP ####[facility] [place] [facility] [address] [place], [place] [address]Dr. Deborah Mohan EGFR-AF NIUEAN 54 mL/min/1.73m2 Critically low >=60 [facility] [place] [facility] Comment on above: Performed By: #### H DENIS, CMP ####[facility] [place] [facility] Hz[address] [place], [place] [address]Dr. Deborah Mohan EGFR-NON AF NIUEAN 44 mL/min/1.73m2 Critically low >=60 [facility] [place] [facility] Comment on above: Performed By: #### H DENIS, CMP ####[facility] [place] [facility] [address] [address]Dr. Deborah Mohan Globulin (S) [Mass/Vol] 3.7 g/dL Normal [facility] Comment on above: Performed By: #### H DENIS, CMP ####[facility] [place] [facility] [address] [address]Dr. Deborah Mohan Glucose [Mass/Vol] 118 mg/dL Critically high 74-[address] [facility] Comment on above: Performed By: #### H DENIS, CMP ####[facility] [place] [facility] [address] [address]Dr. Deborah Mohan Potassium [Moles/Vol] 4.0 mmol/L Normal 3.5-5.1 [facility] Comment on above: Performed By: #### H DENIS, CMP ####[facility] [place] [facility] [address] [place], [place] [address]Dr. Deborah Mohan Protein [Mass/Vol] 6.9 g/dL Normal 6.4-8.2 [facility] Comment on above: Performed By: #### H DENIS, CMP ####[facility] [place] [facility] [address] [place], [place] [address]Dr. Deborah Mohan Sodium [Moles/Vol] 136 mmol/L Normal 136-145 [facility] Comment on above: Performed By: #### H DENIS, CMP ####[facility] [place] [facility] [address] [place], [place] [address]Dr. Deborah Mohan Urea nitrogen [Mass/Vol] 28.0 mg/dL Critically high 7.0-18.0 [facility] Comment on above: Performed By: #### H DENIS, CMP ####[facility] [place] [facility] [address] [address]Dr. Deborah Mohan Urea nitrogen/Creatinine [Mass ratio] 23.1 mg/mg Normal [facility] Comment on above: Performed By: #### H DENIS, CMP ####[facility] [place] [facility] [address] [address]Dr. Deborah Mohan TROPONIN, HIGH SENSITIVITYon 04-07-2022 HSTROP 5.9 pg/mL Normal 4.0-51.3 [facility] Comment on above: Result Comment: CUT- OFF POINTS HAVE BEEN ESTABLISHED BASED ON THE FOURTH UNIVERSAL DEFINITIONS OF MYOCARDIAL INFARCTION. THE UPPER REFERENCE LIMIT (URL) OF TROPONIN, DEFINED THE 99TH PERCENTILE OF cTnI DISTRIBUTION IN A REFERENCE POPULATION, HAS BEEN CONFIRMED THE DECISION THRESHOLD FOR [place] DIAGNOSIS. Performed By: #### H STROPN, CMP ####[facility] [place] [facility] [address] [place], [place] [address]NuAnkur Mohan XR CHEST 1 Von 04-07-2022 XR [...] ANDERSON ALMANZAR Date: 2022-04-07 03:11 Normal [facility] [place] [facility] Office Visiton 03-16-2022 Follow-up visit [id number] Mary Vick 1955 F Date Provider Department Center 03/16/2022 389-VERENA TAO HVCVASENDO SC [facility] Family History Problem Relation Age of Onset Cancer Mother Cancer Sister Family Status - Relation Status Age at Mother Sister Level of Service:87755 [place] OFFICE/OUTPATIENT ESTABLISHED LOW MDM 20-29 MIN Reason for Visit and Comments: New Patient [632] - Mildly displaced fracture of upper sternum. Referral from Natividad Silva NP Normal [facility] HEMOGLOBINon 03-12-2022 Hemoglobin (Bld) [Mass/Vol] 9.2 g/dL Critically low 12.0-16.0 [facility] Comment on above: Performed By: #### A NARF #### [facility] [place] [facility] [address] [place] [address] Dr. Deborah Mohan ANTI NEUTROPHIL CYTOPLASMIC AB (ANCA) PRon 03-09-2022 Anti-MPO Antibodies <0.2 Normal 0.0-0.9 [facility] Comment on above: Result Comment: Perf ormed at: BN Performed By: #### B MIRROR PAINTER, HSTROPN, CMP #### [facility] [place] [facility] [address] [place] [address] Dr. Deborah Mohan Anti-PR3 Antibodies <0.2 Normal 0.0-0.9 [facility] Comment on above: Result Comment: Perf ormed at: BN Performed By: #### B MIRROR PAINTER, HSTROPN, CMP #### [facility] [place] [facility] [address] [place] [address] Dr. Deborah Mohan Atypical pANCA 1:160 Critically high Neg:<1:20 [facility] Comment on above: Result Comment: The atypical pANCA pattern has been observed in a significant percentage of patients with ulcerative colitis, primary sclerosing cholangitis and autoimmune hepatitis. Performed at: CB Performed By: #### B MIRROR PAINTER, HSTROPN, CMP #### [facility] [place] [facility] [address] [place] [address] Dr. Deborah Mohan Cytoplasmic (C-ANCA) <1:20 Normal Neg:<1:20 [facility] Comment on above: Result Comment: Perf ormed at: CB Performed By: #### B MIRROR PAINTER, HSTROPN, CMP #### [facility] [place] [facility] [address] [place] [address] Dr. Deborah Mohan Perinuclear (P-ANCA) <1:20 Normal Neg:<1:20 [facility] Comment on above: Result Comment: The presence of positive fluorescence exhibiting P-ANCA or C-ANCA patterns alone is not specific for the diagnosis of Marlin's Granulomatosis (WG) or microscopic polyangiitis. Decisions about treatment should not be based solely on ANCA IFA results. The [employer] ANCA [employer] Consensus recommends follow up testing of positive sera with both CA-3 and MPO-ANCA enzyme immunoassays. As many as 5% serum samples are positive only by EIA. Ref. AM J Clin Pathol 1999;111:507-513. Performed at: CB Performed By: #### B MIRROR PAINTER, HSTROPN, CMP #### [facility] [place] [facility] [address] [place], [place] [address] Dr. Deborah Mohan ANTISCLERODERMA ABon 022 Antiscleroderma-70 Antibodies <0.2 Normal 0.0-0.9 [facility] [place] [facility] Comment on above: Performed By: #### A NARF #### [facility] [place] [facility] [address] [place], [place] [address] CHEST WO CONon [...] incidental findings, as described above. Normal [facility] [place] [facility] CYCLIC CITRULLINATED PEPTIDE AB (CCP)on 03-09-2022 CCP Antibodies IgG/IgA 6 units Normal 0-19 [facility] [place] [facility] Comment on above: Result Comment: Nega tive <20 Weak positive 20 - 39 Moderate positive 40 - 59 Strong positive >59 Performed By: #### B MIRROR PAINTER, HSTROPN, CMP #### [facility] [place] [facility] [address] [place], [place] [address] Dr. Deborah Mohan IGG SUBCLASSES (1-4) AND TOT Kade 03-09-2022 IgG, Subclass 1 448 mg/dL Normal 248-810 [facility] Comment on above: Performed By: #### B MIRROR PAINTER, HSTROPN, CMP #### [facility] [place] [facility] [address] [place], [place] [address] Dr. Deborah Mohan IgG, Subclass 2 253 mg/dL Normal 130-555 [facility] Comment on above: Performed By: #### B MIRROR PAINTER, HSTROPN, CMP #### [facility] [place] [facility] [address] [place], [place] [address] Dr. Deborah Mohan IgG, Subclass 3 95 mg/dL Normal 15-102 [facility] Comment on above: Performed By: #### B MIRROR PAINTER, HSTROPN, CMP #### [facility] [place] [facility] [address] [address] [address] Deborah Mohan IgG, Subclass 4 10 mg/dL Normal 2-96 [facility] Comment on above: Performed By: #### B MIRROR PAINTER, HSTROPN, CMP #### [facility] [place] [facility] [address] [address] [address] Deborah Mohan Immunoglobulin G, Qn, Serum 658 mg/dL Normal 586-1602 [facility] Comment on above: Performed By: #### B MIRROR PAINTER, HSTROPN, CMP #### [facility] [place] [facility] [address] [place] [address] Dr. Deborah Mohan IMMUNOGLOBULIN E, TOTALon Immunoglobulin E, Total 5 IU/mL Critically low 6-495 [facility] Comment on above: Performed By: #### I GETOT ####[facility] [place] [facility] [address] [address]Dr. Deborah Mohan MICHELL EIA W/REFLEX 5 BIOMARKER Son 03-08-2022 MICHELL Direct Negative Normal Negative [facility] Comment on above: Performed By: #### A NARF #### [facility] [place] [facility] [address] [address] [address] Deborah Mohan ANGIOTENSION-CONVERTING ENZY ME (FRANCESCO)on 03-08-2022 FRANCESCO 32 U/L Normal 14-82 [facility] Comment on above: Performed By: #### A NGIOC ####[facility] [place] [facility] [address] [address]Dr. Deborah Mohan ANTIGLOMERULAR BASEMENT MEMB ROMMEL ABSon 03-08-2022 Anti-GBM Antibodies <0.2 Normal 0.0-0.9 [facility] Comment on above: Performed By: #### A GBM #### [facility] [place] [facility] [address] [address] [address] Deborah Mohan IMMUNOGLOBULIN IGA QUANTITIA VEon 03-06-2022 Immunoglobulin A, Qn, Serum 229 mg/dL Normal 87-352 [facility] Comment on above: Performed By: #### A NARF #### [facility] [place] [facility] [address] [address] [address] Deborah Mohan IMMUNOGLOBULIN IGM QUANTITAT IVEon 03-06-2022 Immunoglobulin M, Qn, Serum 83 mg/dL Normal 26-217 [facility] Comment on above: Performed By: #### B MIRROR PAINTER, HSTROPN, CMP #### [facility] [place] [facility] [address] [address] [address] Deborah Mohan RHEUMATOID FACTORon 03-06-20 RA Latex Turbid. 10.9 IU/mL Normal <14.0 [facility] Comment on above: Performed By: #### R F ####[facility] [place] [facility] [address] [address]DrAnkur Mohan CREATININEon 03-05-2022 Creatinine [Mass/Vol] 1.38 mg/dL Critically high 0.55-1.02 [facility] Comment on above: Performed By: #### C MELVINA ####[facility] [place] [facility] [address] [address]Dr. Deborah Mohan EGFR-AF NIUEAN 46 mL/min/1.73m2 Critically low >=60 [facility] Comment on above: Performed By: #### C MELVINA ####[facility] [place] [facility] [address] [address]Dr. Deborah Mohan EGFR-NON AF NIUEAN 38 mL/min/1.73m2 Critically low >=60 [facility] Comment on above: Performed By: #### C MELVINA ####[facility] [place] [facility] [address] [address]DrAnkur Mohan SED RATE WESTERGRENon 2021 SED RATE 92 mm/hr Critically high <=30 [facility] Comment on above: Performed By: #### B MIRROR PAINTER, HSTROPN, CMP #### [facility] [place] [facility] [address] [address] [address] Deborah Mohan XR DEXA BONE DENSITYon [...] by: ROBERT CONDON Date: 2022-03-05 16:[address] [facility] XR CHEST 1 Von 03-01-2022 [...] by: ROBERT NOVAK Date: 2022-02-28 22:[address] [facility] XR KNEE LUANA 4V or [...] by: RAUDEL ESTRADA Date: 2022-01-29 11:[address] [facility] CBC AUTO DIFFon 11-29-2021 BASO # 0.1 103/ul Normal 0.0-0.1 [facility] Comment on above: Performed By: #### C BC ####[facility] [place] [facility] [address] [place], [place] [address]DrAnkur Mohan Basophils/100 WBC (Bld) 0.8 % Normal 0.2-2.0 [facility] [place] [facility] Comment on above: Performed By: #### C BC ####[facility] [place] [facility] [address] [place], [place] [address]Dr. Deborah Mohan EO # 0.3 103/ul Normal 0.0-0.7 [facility] [place] [facility] Comment on above: Performed By: #### C BC ####[facility] [place] [facility] [address] [place], [place] [address]Dr. Deborah Mohan Eosinophils/100 WBC (Bld) 2.2 % Normal 0.9-7.0 [facility] [place] [facility] Comment on above: Performed By: #### C BC ####[facility] [place] [facility] [address] [place], [place] [address]Dr. Deborah Mohan Erythrocyte distribution width (RBC) [Ratio] 21.2 % Critically high 11.0-15.0 [facility] [place] [facility] Comment on above: Performed By: #### C BC ####[facility] [place] [facility] [address] [place], [place] [address]Dr. Deborah Mohan Hematocrit (Bld) [Volume fraction] 33.2 % Critically low 36.0-48.0 [facility] [place] [facility] Comment on above: Performed By: #### C BC ####[facility] [place] [facility] [address] [place], [place] [address]Dr. Deborah Mohan Hemoglobin (Bld) [Mass/Vol] 10.3 g/dL Critically low 12.0-16.0 [facility] [place] [facility] Comment on above: Performed By: #### C BC ####[facility] [place] [facility] [address] [place], [place] [address]Dr. Deborah Mohan IG # 0.11 10e3/ul Critically high 0.00-0.03 [facility] Comment on above: Performed By: #### C BC ####[facility] [place] [facility] [address] [place], [place] [address]Dr. Deborah Mohan IG % 0.9 % Critically high 0.0-0.5 [facility] Comment on above: Performed By: #### C BC ####[facility] [place] [facility] [address] [place], [place] [id number]. Ann-Mariemich Mohan LYMPH # 2.2 103/ul Normal 1.2-3.8 [facility] [place] [facility] Comment on above: Performed By: #### C BC ####[facility] [place] [facility] [address] [address]Dr. Ann-Mariemich Mohan Lymphocytes/100 WBC (Bld) 18.5 % Critically low 20.5-60.0 [facility] [place] [facility] Comment on above: Performed By: #### C BC ####[facility] [place] [facility] [address] [address]Dr. Deborah Mohan MANUAL DIFF REQ NO Normal [facility] Comment on above: Performed By: #### C BC ####[facility] [place] [facility] [address] [address]Dr. Ann-Mariemich Mohan MCH (RBC) [Entitic mass] 26.3 pg Critically low 26.7-34.0 [facility] [place] [facility] Comment on above: Performed By: #### C BC ####[facility] [place] [facility] [address] [place], [place] [address]Dr. Deborah Marques MCHC (RBC) [Mass/Vol] 31.0 g/dL Normal 29.9-35.2 [facility] [place] [facility] Comment on above: Performed By: #### C BC ####[facility] [place] [facility] [address] [place], [place] [address]Dr. Deborah Mohan MCV (RBC) [Entitic vol] 84.9 fL Normal 81.0-99.0 [facility] [place] [facility] Comment on above: Performed By: #### C BC ####[facility] [place] [facility] [address] [place], [place] [address]Dr. Deborah Mohan MONO # 0.6 103/ul Normal 0.3-0.8 [facility] [place] [facility] Comment on above: Performed By: #### C BC ####[facility] [place] [facility] [address] [place], [place] [address]Dr. Deborah Mohan Monocytes/100 WBC (Bld) 5.3 % Normal 1.7-12.0 [facility] [place] [facility] Comment on above: Performed By: #### C BC ####[facility] [place] [facility] [address] [place], [place] [address]Dr. Deborah Mohan NEUT # 8.4 103/ul Critically high 1.4-6.5 [facility] Comment on above: Performed By: #### C BC ####[facility] [place] [facility] [address] [id number]. Deborah Mohan Neutrophils/100 WBC (Bld) 72.3 % Normal 43.0-75.0 [facility] [place] [facility] Comment on above: Performed By: #### C BC ####[facility] [place] [facility] [address] [address]Dr. Deborah Mohan Platelet mean volume (Bld) [Entitic vol] 10.1 fL Normal 9.5-13.5 [facility] [place] [facility] Comment on above: Performed By: #### C BC ####[facility] [place] [facility] [address] [address]Dr. Deborah Mohan PLT 351 103/ul Normal 150-450 [facility] [place] [facility] Comment on above: Performed By: #### C BC ####[facility] [place] [facility] [address] [address]Dr. Deborah Mohan RBC 3.91 106/ul Critically low 4.20-5.40 [facility] Comment on above: Performed By: #### C BC ####[facility] [place] [facility] [address] [address]Dr. Deborah Mohan WBC 11.6 103/ul Critically high 4.0-11.[address] [facility] Comment on above: Performed By: #### C BC ####[facility] [place] [facility] [address] [address]Dr. Deborah Mohan CTA CHEST WO W CONon [...] 2. Bilateral peripheral fibrosis and/or scarring with mvcn-xe-peiurdbt groundglass densities. The groundglass densities are slightly decreased compared to the prior scan. 3. Old calcified granulomas in the chest and abdomen. 4. Large hiatal hernia. 5. Moderate diffuse osteopenia. Electronically authenticated by: BERNARDO DENNY Date: 2021-11-29 20:31 Normal [facility] [place] [facility] D-DIMERon 11-29-2021 D-DIMER 1.14 mg/L FEU Critically high <=0.59 [facility] Comment on above: Performed By: #### A NAR #### [facility] [place] [facility] [address] [place] [address] Dr. Deborah Mohan D-DIMER COMMENTS SEE BELOW Normal [facility] Comment on above: Result Comment: Incr [...] Performed By: #### A NARF #### [facility] [place] [facility] [address] [place] [address] Dr. Deborah Mohan PROF CHEM 8 (BAS METB)on Anion gap [Moles/Vol] 11.7 mmol/L Normal [facility] Comment on above: Performed By: #### B MP, HSTROPN #### [facility] [place] [facility] [address] [place] [address] Dr. Deborah Mohan Calcium [Mass/Vol] 8.7 mg/dL Normal 8.5-10.1 [facility] Comment on above: Performed By: #### B MP, HSTROPN #### [facility] [place] [facility] [address] [place] [address] Dr. Deborah Mohan Chloride [Moles/Vol] 107 mmol/L Normal 98-107 [facility] Comment on above: Performed By: #### B MP, HSTROPN #### [facility] [place] [facility] [address] [place] [address] Dr. Deborah Mohan CO2 [Moles/Vol] 25.3 mmol/L Normal 21.0-32.[address] [facility] Comment on above: Performed By: #### B MP, HSTROPN #### [facility] [place] [facility] [address] [place] [address] Dr. Deborah Mohan Creatinine [Mass/Vol] 0.98 mg/dL Normal 0.55-1.02 [facility] Comment on above: Performed By: #### B MP, HSTROPN #### [facility] [place] [facility] [address] [place] [address] Dr. Deborah Mohan EGFR-AF NIUEAN >60 Normal >=[address] [facility] Comment on above: Performed By: #### B MP, HSTROPN #### [facility] [place] [facility] [address] [place] [address] Dr. Deborah Mohan EGFR-NON AF NIUEAN 56 mL/min/1.73m2 Critically low >=60 [facility] [place] [facility] Comment on above: Performed By: #### B MP, HSTROPN #### [facility] [place] [facility] [address] [address] [address] Deborah Mohan Glucose [Mass/Vol] 105 mg/dL Normal 74-[address] [facility] Comment on above: Performed By: #### B MP, HSTROPN #### [facility] [place] [facility] [address] [address] [address] Deborah Mohan Potassium [Moles/Vol] 4.0 mmol/L Normal 3.5-5.1 [facility] Comment on above: Performed By: #### B MP, HSTROPN #### [facility] [place] [facility] [address] [address] [address] Deborah Mohan Sodium [Moles/Vol] 140 mmol/L Normal 136-[address] [facility] Comment on above: Performed By: #### B MP, HSTROPN #### [facility] [place] [facility] [address] [address] [address] Deborah Mohan Urea nitrogen [Mass/Vol] 21.0 mg/dL Critically high 7.0-18.0 [facility] Comment on above: Performed By: #### B KYLEE, HSTROPN #### [facility] [place] [facility] [address] [address] [address] Deborah Mohan Urea nitrogen/Creatinine [Mass ratio] 21.4 mg/mg Normal [facility] Comment on above: Performed By: #### B MP, HSTROPN #### [facility] [place] [facility] [address] [address] [address] Deborah Mohan TROPONIN, HIGH SENSITIVITYon 11-29-2021 HSTROP 4.5 pg/mL Normal 4.0-51.3 [facility] [place] [facility] Comment on above: Result Comment: CUT- OFF POINTS HAVE BEEN ESTABLISHED BASED ON THE FOURTH UNIVERSAL DEFINITIONS OF MYOCARDIAL INFARCTION. THE UPPER REFERENCE LIMIT (URL) OF TROPONIN, DEFINED THE 99TH PERCENTILE OF cTnI DISTRIBUTION IN A REFERENCE POPULATION, HAS BEEN CONFIRMED THE DECISION THRESHOLD FOR [place] DIAGNOSIS. Performed By: #### H STROPN ####[facility] [place] [facility] [address] [address]Dr. Deborah Mohan HSTROP 6.0 pg/mL Normal 4.0-51.3 [facility] Comment on above: Result Comment: CUT- OFF POINTS HAVE BEEN ESTABLISHED BASED ON THE FOURTH UNIVERSAL DEFINITIONS OF MYOCARDIAL INFARCTION. THE UPPER REFERENCE LIMIT (URL) OF TROPONIN, DEFINED THE 99TH PERCENTILE OF cTnI DISTRIBUTION IN A REFERENCE POPULATION, HAS BEEN CONFIRMED THE DECISION THRESHOLD FOR [place] DIAGNOSIS. Performed By: #### B MP, HSTROPN #### [facility] [place] [facility] [address] [place], [place] [address] Dr. Deborah Mohan XR CHEST 1 Von [...] by: KANDY BARRY Date: 2021-11-29 19:[address] [facility] XR LSPINE W_OBLS AND FLEX_EX [...] by: RAUDEL ESTRADA Date: 2021-11-12 07:[address] [facility] CALCIUMon 11-11-2021 Calcium [Mass/Vol] 9.0 mg/dL Normal 8.5-10.1 [facility] Comment on above: Performed By: #### A NARF #### [facility] [place] [facility] [address] [address] [address] Deborah Mohan CREATININEon 11-11-2021 Creatinine [Mass/Vol] 1.47 mg/dL Critically high 0.55-1.02 [facility] Comment on above: Performed By: #### A NARF #### [facility] [place] [facility] [address] [address] [address] Deborah Mohan EGFR-AF NIUEAN 43 mL/min/1.73m2 Critically low >=60 [facility] Comment on above: Performed By: #### A NARF #### [facility] [place] [facility] [address] [place] [address] Dr. Deborah Mohan EGFR-NON AF NIUEAN 35 mL/min/1.73m2 Critically low >=60 [facility] Comment on above: Performed By: #### A NARF #### [facility] [place] [facility] [address] [place] [address] Dr. Deborah Mohan Encounters Encounter Date Encounter [...] Start: 05-08-2022 End: 05-08-2022 ambulatory Clarita Leigh Facility:[facility] Start: 05-08-2022 End: 05-08-2022 ambulatory HOGSHEAD LINER-C Clarita Leigh Work Phone: [facility] Work Phone: Start: 05-08-2022 End: 05-08-2022 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 procedure [facility]GSHEAD LINER-C Clarita Leigh Work Phone: [facility] Start: 04-08-2022 End: 04-09-2022 ambulatory JOEL RAMON . Facility:[facility] Start: 04-07-2022 End: 04-07-2022 ambulatory NATIVIDAD SILVA Facility:[facility] Start: 03-16-2022 ambulatory VERENA [facility] Start: 03-16-2022 End: 03-16-2022 ambulatory NATIVIDAD SILVA Facility:[facility] Start: 03-12-2022 End: 03-13-2022 ambulatory NATIVIDAD SILVA Facility:[facility] Start: 03-09-2022 End: 03-10-2022 ambulatory NATIVIDAD SILVA Facility:[facility] Start: 03-08-2022 End: 03-09-2022 ambulatory DIANE [facility] Start: 03-05-2022 End: 03-06-2022 ambulatory NATIVIDAD SILVA [...] 04-01-2018 Emergency department patient visit BRANDON RUSSELL [facility] Start: 12-11-2017 End: 12-11-2017 Emergency department patient visit ROBERT HURLEY Facility:[facility] Procedures Date Procedure Procedure Detail Performing Clinician Start: 05-08-2022 Plain X-ray of left wrist [facility] Clarita Leigh Work Phone: Start: 05-08-2022 X-ray of left ankle [facility]GS[facility] -C Clarita Leigh Work Phone: Start: 04-01-2018 IP CONSULT TO ORAL SURGERY BRANDON RUSSELL Payers Date Payer Category Payer Medicare [id number] 2022 Self-pay 1961 Medicare [id number] 1955 Unknown [id number] 2.16.84 0.1.004300.3.579.2.593 1955 Unknown [id number] 2.16.84 0.1.354008.3.579.2.593 1955 Unknown [id number] 2.16.84 0.1.629650.3.579.2.593 1955 Unknown [id number] 2.16.84 0.1.144703.3.579.2.593 1953 Unknown [id number] 2.16.84 0.1.696391.3.579.2.593 1953 Unknown [id number] 2.16.84 0.1.142648.3.579.2.593 1953 Unknown [id number] 2.16.84 0.1.215886.3.579.2.593 1953 Unknown [id number] 2.16.84 0.1.577128.3.579.2.593 1953 Unknown [id number] 2.16.84 0.1.393403.3.579.2.593 1953 Unknown [id number] 2.16.84 0.1.909939.3.579.2.593 1953 Unknown [id number] 2.16.84 0.1.100965.3.579.2.593 1953 Unknown [id number] 2.16.84 0.1.382476.3.579.2.593 1953 Unknown [id number] 2.16.84 0.1.616075.3.579.2.593 1953 Unknown [id number] 2.16.84 0.1.854690.3.579.2.593 1953 Unknown [id number] 2.16.84 0.1.943556.3.579.2.593 1953 Unknown [id number] 2.16.84 0.1.823182.3.579.2.593 1953 Unknown [id number] 2.16.84 0.1.920880.3.579.2.593 1953 Unknown [id number] 2.16.84 0.1.256654.3.579.2.593 1953 Unknown [id number] 2.16.84 0.1.471236.3.579.2.593 1953 Unknown [id number] 2.16.84 0.1.197628.3.579.2.593 1953 Unknown [id number] 2.16.84 0.1.157129.3.579.2.593 1955 Unknown [id number] 2.16.84 0.1.708046.3.579.2.593 Medicare [id number] Unknown MMO [id number] Unknown [place] BC/BS [id number] Unknown [id number] 2.16.8 40.1.952292.3.579.2.531 Social History Date Type Detail Facility Tobacco smoking stat [facility] Unknown if ever smoked [facility] Work Phone: Start: 1955 Sex Assigned At Female F [facility] Clinical Notes 11-05-2021 to 07-08-2022 Note [...] the clinic in three months. [facility] 06-24-2022 Note CONSULTATION CONSULTATION DATE: 06/24/2022 [...] at a time, as she works at [employer]. Current medications include Percocet 5/325 daily, diclofenac [...] approval for her knee injections. [facility] 04-08-2022 Note CONSULTATION CONSULTATION DATE: 04/08/2022 [...] months' time unless otherwise indicated. [facility] 03-16-2022 Note Mildly displaced fra cture of upper sternum. Referral from Natividad Silva NP [facility] 03-16-2022 Note Mildly displaced fra cture [...] past 36 hour(s)). No follow-ups on file. [facility] 03-16-2022 Note Subjective Patient ID: Mary [...] process. We will see her as needed. [facility] 03-09-2022 Note CONSULTATION CONSULTATION DATE: 03/09/2022 [...] proceed. CC: Natividad Silva CNP [facility] 03-08-[address] scan from [facility] 01-28-2022 Note CONSULTATION CONSULTATION DATE: [...] re-evaluation of her bursa injection. [facility] 01-28-2022 Note CONSULTATION PROCEDURE DATE: 01/30/2022 [...] followed up in the clinic. [facility] 11-12-2021 Note PROCEDURE: XR HIPS B [...] RAUDEL ESTRADA Date: 2021-11-12 07:50 [facility] 11-05-2021 Note CONSULTATION PROCEDURE DATE:11/05/2021 PREOPERATIVE [...] will be followed up in the office. [facility] Signed and Approved by: JOEL RAMON . 11/18/2021 16:24:00 [facility] 11-05-2021 Note CONSULTATION CONSULTATION DATE: 11/05/2021 [...] time, was working half a day at [employer] and since then has increased to full [...] in three months' time unless otherwise indicated. [facility] Signed and Approved by: JOEL RAMON . 11/18/2021 16:24:00 [facility] Evaluation note No assessment information availa ble [facility] Work Phone: Summary Purpose Family History [...] and content) DATE CREATED AUTHOR 12/21/2017 [facility] DATE CREATED AUTHOR AUTHOR'S ORGANIZ ATION 05/01/2018 [facility] DATE CREATED AUTHOR AUTHOR'S ORGANIZ ATION 03/21/2022 [facility] DATE CREATED AUTHOR AUTHOR'S ORGANIZ ATION 05/17/2022 [facility] DATE CREATED AUTHOR AUTHOR'S ORGANIZ ATION 10/06/2022 [facility] Care Teams (unrecognized sec tion [...] BE BASED ON THE PRIMARY CLINICAL RECORDS. [facility]. provides no warranty or guarantee of the accuracy or completeness of information in this document.
--- NOTE | 2023-08-01 12:41 | P.CN_ITS ---
Consult Note: HPI Data of Consult Patient: known to practice within the last 3 years Consult date: 08/01/23 Requesting Physician: Gabriella Woodruff MD Primary Care Provider: POLO SILVA Consult Narrative Reason for consult: bilateral hip pain Narrative: 68yof who presents today for bilateral trochanteric bursa injection today. Continues to have significant bilateral hip pain. cc:: CC: Gabriella Woodruff MD Review of Systems ROS Status of ROS 10 or more systems reviewed and unremark able except as noted in history and below PFSH PFS Medical History Loud snoring ?R06.83 - Snoring (ICD-10) Osteoarthritis ?M19.90 - Unspecified osteoarthritis, unspecified site (ICD-10) Neck pain ?M54.2 - Cervicalgia (ICD-10) Bipolar 1 disorder ?F31.9 - Bipolar disorder, unspecified (ICD-10) Hearing deficit ?H91.90 - Unspecified hearing loss, unspecified ear (ICD-10) Anxiety ?F41.9 - Anxiety disorder, unspecified (ICD-10) Acid reflux ?K21.9 - Gastro-esophageal reflux disease without esophagitis (ICD-10) Obesity ?E66.9 - Obesity, unspecified (ICD-10) Hypothyroid ?E03.9 - Hypothyroidism, unspecified (ICD-10) Pulmonary hypertension ?I27.20 - Pulmonary hypertension, unspecified (ICD-10) Sleep apnea ?G47.30 - Sleep apnea, unspecified (ICD-10) High cholesterol ?E78.00 - Pure hypercholesterolemia, unspecified (ICD-10) Hypertension ?I10 - Essential (primary) hypertension (ICD-10) Surgical History Hx of tubal ligation ?Z98.51 - Tubal ligation status (ICD-10) History of appendectomy ?Z90.49 - Acquired absence of other specified parts of digestive tract (ICD- 10) History of hysterectomy ?Z90.710 - Acquired absence of both cervix and uterus (ICD-10) Social History Smoking status: Former smoker Meds Home Medications and Allergies Home Medications Medication Instructions Recorded Confirmed Type albuterol sulfate 90 mcg/actuation 2 inh inhalation Q6H 10/21/22 07/12/23 History breath activated powder inhaler aripiprazole 30 mg tablet (Abilify) 30 mg PO QDAY 10/21/22 07/12/23 History aspirin 81 mg capsule 81 mg PO QDAY 10/21/22 07/12/23 History diclofenac sodium 50 mg 50 mg PO BID 10/21/22 07/12/23 History tablet,delayed release ferrous sulfate 325 mg (65 mg 325 mg PO BID 10/21/22 07/12/23 History iron) tablet (Feosol) fluoxetine 40 mg capsule (Prozac) 80 mg PO QDAY 10/21/22 07/12/23 History hydroxyzine HCl 25 mg tablet 25 mg PO BID PRN unknown 10/21/22 07/12/23 History levothyroxine 50 mcg tablet 50 mcg PO QDAY 10/21/22 07/12/23 History (Euthyrox) magnesium oxide 400 mg PO QDAY 10/21/22 07/12/23 History metoprolol tartrate 25 mg tablet 25 mg PO BID 10/21/22 07/12/23 History omeprazole 40 mg capsule,delayed 40 mg PO BID 10/21/22 07/12/23 History release oxycodone-acetaminophen 5 mg-325 1 tab PO QDAY PRN pain 10/21/22 07/12/23 History mg tablet potassium chloride 10 mEq 10 meq PO BID 10/21/22 07/12/23 History tablet,extended release (K-Tab) ropinirole 1 mg tablet 1 mg PO QDAY 10/21/22 07/12/23 History vitamins A,C,C-hksg-xqoifm 4,296 1 cap PO BID 10/21/22 07/12/23 History mcg-226 mg-90 mg capsule (ICaps AREDS) oxycodone-acetaminophen 5 mg-325 1 tab PO Q6H PRN pain #30 tabs 01/26/23 07/12/23 Rx mg tablet (Percocet) oxycodone-acetaminophen 5 mg-325 1 tab PO DAILY PRN pain #30 tabs 02/17/23 07/12/23 Rx mg tablet (Percocet) oxycodone-acetaminophen 5 mg-325 1 tab PO DAILY PRN pain #30 tabs 03/21/23 07/12/23 Rx mg tablet (Percocet) oxycodone-acetaminophen 5 mg-325 1 tab PO DAILY PRN pain #30 tabs 04/19/23 07/12/23 Rx mg tablet (Percocet) oxycodone-acetaminophen 5 mg-325 1 tab PO DAILY PRN pain #30 tabs 05/19/23 07/12/23 Rx mg tablet (Percocet) oxycodone-acetaminophen 5 mg-325 1 tab PO DAILY PRN pain #30 tabs 06/22/23 07/12/23 Rx mg tablet (Endocet) oxycodone-acetaminophen 5 mg-325 1 tab PO DAILY PRN pain #30 tabs 07/21/23 Rx mg tablet (Percocet) Allergies Allergy/AdvReac Type Severity Reaction Status Date / Time sumatriptan [From Imitrex] Allergy Severe Verified 07/12/23 08:01 Exam Narrative Exam Narrative: Psych-alert and oriented x 3.? Attentive and appropriate, constitutionally normal, displays normal mood and affect per situation.? There are no obvious deficits in memory, reasoning, or intellect.? Skin-no obvious rashes, bruising, erythema noted to the patient's area of pain. Extremities- extremities are warm with minimal edema and palpable pulses. Hip-tenderness to palpation is noted over the bilateral greater trochanter. Pain is elicited with internal and external rotation of the hip.? Hip provocative maneuvers are positive and consistent with the patient's normal pain.? Coordination remains intact.? Gait remains antalgic. Assessment and Plan Assessment and Plan (1) Greater trochanteric bursitis of both hips: Plan 68yof who presents for bilateral trochanteric bursa injection today. Risks and benefits reviewed, all questions answered. We agree to proceed. Procedure: Bilateral greater trochanteric bursa injection Diagnosis: Bilateral trochanteric bursitis Medications: Bupivacaine 0.25% 4cc, kenalog 40mg x2 I explained the details of the procedure to the patient including the risks, benefits and alternatives. We had an informed discussion and the patient verbal ized understanding and signed the consent form. All questions were answered appropriately.? A time out was performed.? The skin overlying the left lateral hip was prepped with alcohol x3. A sterile syringe containing the above medication was attached to a 25 gauge, 3.5 inch needle under strict aseptic technique. The greater trochanter and point of tenderness was palpated. At this point, the needle was then advanced through the subcutaneous tissue down to os. The needle was withdrawn slightly and the contents of the syringe were gently injected without any resistance. The needle was removed and pressure was applied to the injection site to decrease the incidence of ecchymosis and hematoma formation.?The same procedure was then completed on the right side. A sterile bandage was applied. Post procedural instructions were given to the patient.
== END 2023-08-01 12:02 | disposition home or self-care (01) ==
LOC: PM 12:01
PROVIDERS: PCP Nurse Practitioner Family; Visit Provider Anesthesiology
DX: M70.62 Trochanteric bursitis, left hip (principal); M70.61 Trochanteric bursitis, right hip
CPT/HCPCS: 20610; J1030

== ENCOUNTER 2023-09-14 13:00 | Emergency (ER) | payer MEDICARE, SELFPAY ==
[2023-09-14] VITALS (7 sets, daily range): BP systolic 168–173; BP diastolic 58–69; PULSE 51; TEMP 36.6; O2SAT 98–100; BMI 31.1
--- NOTE | 2023-09-14 13:52 | ED.GENADUL1 ---
HPI HPI - General Adult General Chief complaint: Headache Stated complaint: MIGRAINE Time Seen by Provider: 09/14/23 13:10 Source: patient Mode of arrival: walk-in Limitations: no limitations History of Present Illness HPI narrative: Patient with long standing history of migraines complains of right sided headache that began2 days ago. She saw Su Milton and got IM Toradol and a SL med - he does not know what it was - in the office. A few hours later her headache decreased from 9/10 to 4/10. When she woke this morning the headache had returned to level it was yesterday - rated 9/10. She admits to some right sided neck pain as well with muscle tightness . She denied any fever or chills. Nausea but no vomiting. No skin rash. Related Data Home Medications ?Medication ?Instructions ?Recorded ?Confirmed albuterol sulfate 90 mcg/actuation 2 inh inhalation Q6H 10/21/22 09/14/23 breath activated powder inhaler aripiprazole 30 mg tablet (Abilify) 30 mg PO QDAY 10/21/22 09/14/23 aspirin 81 mg capsule 81 mg PO QDAY 10/21/22 09/14/23 diclofenac sodium 50 mg 50 mg PO BID 10/21/22 07/12/23 tablet,delayed release ferrous sulfate 325 mg (65 mg 325 mg PO BID 10/21/22 09/14/23 iron) tablet (Feosol) fluoxetine 40 mg capsule (Prozac) 80 mg PO QDAY 10/21/22 09/14/23 hydroxyzine HCl 25 mg tablet 25 mg PO BID PRN unknown 10/21/22 09/14/23 levothyroxine 50 mcg tablet 50 mcg PO QDAY 10/21/22 09/14/23 (Euthyrox) magnesium oxide 400 mg PO QDAY 10/21/22 09/14/23 metoprolol tartrate 25 mg tablet 25 mg PO BID 10/21/22 09/14/23 omeprazole 40 mg capsule,delayed 40 mg PO BID 10/21/22 09/14/23 release potassium chloride 10 mEq 10 meq PO BID 10/21/22 07/12/23 tablet,extended release (K-Tab) ropinirole 1 mg tablet 1 mg PO QDAY 10/21/22 07/12/23 vitamins A,C,P-upba-xwiven 4,296 1 cap PO BID 10/21/22 07/12/23 mcg-226 mg-90 mg capsule (ICaps AREDS) Previous Rx's ?Medication ?Instructions ?Recorded oxycodone-acetaminophen 5 mg-325 1 tab PO DAILY PRN pain #30 tabs 06/22/23 mg tablet (Endocet) Allergies Allergy/AdvReac Type Severity Reaction Status Date / Time sumatriptan [From Imitrex] Allergy Severe Verified 07/12/23 08:01 Opioid HPI Opioid Management Most Recent Opioid Data: Last Pain Scale 5 07/12/23 08:04 PFSH PFS Medical History Loud snoring ?R06.83 - Snoring (ICD-10) Osteoarthritis ?M19.90 - Unspecified osteoarthritis, unspecified site (ICD-10) Neck pain ?M54.2 - Cervicalgia (ICD-10) Bipolar 1 disorder ?F31.9 - Bipolar disorder, unspecified (ICD-10) Hearing deficit ?H91.90 - Unspecified hearing loss, unspecified ear (ICD-10) Anxiety ?F41.9 - Anxiety disorder, unspecified (ICD-10) Acid reflux ?K21.9 - Gastro-esophageal reflux disease without esophagitis (ICD-10) Obesity ?E66.9 - Obesity, unspecified (ICD-10) Hypothyroid ?E03.9 - Hypothyroidism, unspecified (ICD-10) Pulmonary hypertension ?I27.20 - Pulmonary hypertension, unspecified (ICD-10) Sleep apnea ?G47.30 - Sleep apnea, unspecified (ICD-10) High cholesterol ?E78.00 - Pure hypercholesterolemia, unspecified (ICD-10) Hypertension ?I10 - Essential (primary) hypertension (ICD-10) Surgical History Hx of tubal ligation ?Z98.51 - Tubal ligation status (ICD-10) History of appendectomy ?Z90.49 - Acquired absence of other specified parts of digestive tract (ICD-10) History of hysterectomy ?Z90.710 - Acquired absence of both cervix and uterus (ICD-10) Social History Smoking status: Former smoker Exam Narrative Exam Narrative: General: The patient appears well and in no apparent distress. Patient is resting comfortably on cart. Skin: Warm, dry, no pallor noted. The patient has no evidence of rash, petechiae, or purpura noted. Head: Normocephalic, atraumatic, no temporal arterial tenderness Neck: Supple, trachea mid-line, no tenderness, no lymphadenopathy. No meningeal signs. No nuchal rigidity. Eye: Pupils are equal, round and reactive to light, EOMI. No nystagmus. Ears, Nose, Mouth, and Throat: Oral mucosa is moist, TMs are clear bilaterally, no hemotympanum noted. No sinus tenderness. Cardiovascular: Regular Rate and Rhythm Respiratory: Lungs are clear to auscultation, no wheezing, rales or rhonchi. No accessory muscle use. Back: non-tender, no CVA tenderness Musculoskeletal: normal ROM, no tenderness, no swelling, normal strength 5/5. GI: Normal bowel sounds, no tenderness to palpation, no masses appreciated. No rebound, guarding, or rigidity noted. Neurological: A&O x4, normal equal technical planner strength, normal finger to nose, no pronator drift. The patient is not ataxic. The patient has normal speech. The patient has normal coordination and gait. Normal motor and sensory observed. Psychiatric: Cooperative and interactive Constitutional Vital Signs, click to edit/add: Last Vital Signs Temp 97.8 F 09/14/23 13:05 Pulse 51 L 09/14/23 13:05 Resp 16 09/14/23 13:05 BP 173/69 H 09/14/23 14:19 Pulse Ox 99 09/14/23 14:20 O2 Del Method Room Air 09/14/23 13:05 Course Vital Signs Vital signs: Vital Signs Temperature 97.8 F 09/14/23 13:05 Pulse Rate 51 L 09/14/23 13:05 Respiratory Rate 16 09/14/23 13:05 Blood Pressure 168/58 H 09/14/23 13:05 Pulse Oximetry 99 09/14/23 13:05 Oxygen Delivery Method Room Air 09/14/23 13:05 Temperature 97.8 F 09/14/23 13:05 Pulse Rate 51 L 09/14/23 13:05 Respiratory Rate 16 09/14/23 13:05 Blood Pressure 173/69 H 09/14/23 14:19 Pulse Oximetry 99 09/14/23 14:20 Oxygen Delivery Method Room Air 09/14/23 13:05 Medical Decision Making MDM Narrative Medical decision making narrative: Peripheral IV established so that we could give the patient multiple medications. She received IV Toradol and IV Zofran as well as a half dose of IV Norflex. On recheck at 1430 her pain had only decreased from 9/10 to 8/10. Patient ordered to receive IV Solumedrol, Reglan and Magnesium. On recheck [id number] she had no further improvement in her headache - still rating it 8/10. This is unusual considering the amount of meds she has received so I ordered non contrast head CT. She was also ordered to receive IV dilaudid. Radiologist did not identify any acute worrisome pathology on head CT - the report is below. Patient stated her headache was 5/10 on recheck at 1615. She was informed of negative head CT. She was eating a sandwich when I walked in the room to reassess her - no nausea or vomiting. She wanted me to call Dr Townsend to discuss her disposition. After discussing the patient's case, Dr Townsend asked me to discharge the patient and have her go home and take her regularly scheduled meds. Tomorrow, the patient will call the office if she is still having pain and then they can discuss admission for DHEA drip or other intervention. Imaging Data CT scan - head: Attestation: I have reviewed the pertinent imaging results. Radiologist's impression: ITS Impressions Head CT 09/14/23 15:34 IMPRESSION: No acute intracranial process. Electronically authenticated by: CARO GRIFFIN Date: 09/14/2023 16:10 Discharge Plan Discharge Stand Alone Forms: Portal Instructions Chief Complaint: Headache Clinical Impression: Migraine Patient Disposition: Home, Self-Care Time of Disposition Decision: 16:27 Prescriptions / Home Meds: No Action oxycodone-acetaminophen [Endocet] 5-325 mg tablet 1 tab PO DAILY PRN (Reason: pain) Qty: 30 0RF Rx Instructions: MUST LAST 30 DAYS aspirin 81 mg capsule 81 mg PO QDAY aripiprazole [Abilify] 30 mg tablet 30 mg PO QDAY fluoxetine [Prozac] 40 mg capsule 80 mg PO QDAY magnesium oxide 400 mg magnesium capsule 400 mg PO QDAY potassium chloride [K-Tab] 10 mEq tablet extended release 10 meq PO BID ICaps AREDS 4,296 mcg-226 mg-90 mg capsule 1 cap PO BID omeprazole 40 mg capsule,delayed release(DR/EC) 40 mg PO BID ropinirole 1 mg tablet 1 mg PO QDAY albuterol sulfate 90 mcg/actuation aerosol powdr breath activated 2 inh inhalation Q6H diclofenac sodium 50 mg tablet,delayed release (DR/EC) 50 mg PO BID ferrous sulfate [Feosol] 325 mg (65 mg iron) tablet 325 mg PO BID hydroxyzine HCl 25 mg tablet 25 mg PO BID PRN (Reason: unknown) levothyroxine [Euthyrox] 50 mcg tablet 50 mcg PO QDAY metoprolol tartrate 25 mg tablet 25 mg PO BID Print Language: Maltese Instructions: Migraine Headache (ED) Referrals: POLO MILTON [Primary Care Provider] - 1 week
[2023-09-14] MEDS: ORPHENADRINE 60 MG/ 2 ML VIAL 30 MG IV (14:13)
[2023-09-14] MEDS: KETOROLAC TROMETHAMINE 30 MG/ML VIAL IVP (14:13)
[2023-09-14] MEDS: ONDANSETRON PF 4 MG/2 ML VIAL IV (14:13)
[2023-09-14] MEDS: METOCLOPRAMIDE HCL 10 MG/2 ML VIAL IVP (14:57)
[2023-09-14] MEDS: METHYLPREDNISOLONE SOD SUCC PF 125 MG/2 ML VIAL IVP (14:57)
[2023-09-14] MEDS: MAGNESIUM SULFATE IN WATER 2 GM/50 ML PREMIX IV (14:58)
--- NOTE | 2023-09-14 15:34 | CT_ITS ---
The [address] [address] Patient Name: MELANIE TOMPKINS MRN: [id number] date: 1955 Sex: F Assigned Patient Location: ER Current Patient Location: Accession/Order Number: [id number] Exam Date: 09/14/2023 15:52 Report Date: 09/14/2023 16:10 At the request of: MARITZA PATTERSON Procedure: CT head/brain wo con EXAM: CT head/brain wo con CLINICAL INDICATION: headache COMPARISON: CT head 02/17/2018. TECHNIQUE: Axial CT images of the brain were obtained without contrast. Coronal and sagittal reformats were obtained. Dose reduction techniques were achieved by using automated exposure control and/or adjustment of mA and/or kV according to patient size and/or use of iterative reconstruction technique. FINDINGS: No intracranial hemorrhage, extra-axial fluid collection, hydrocephalus, midline shift, or acute large vessel territory infarction. No other mass effect. Minimal patchy periventricular hypoattenuation is likely on the basis of chronic microvascular angiopathic changes. Hicf-bx-[id number] symmetric global volume loss without lobar predominance. Commensurate prominence of the ventricular system. Basal cisterns are patent. No calvarial fracture. Normal soft tissues. Paranasal sinuses and mastoid air cells are well-aerated. CT/CT head/brain wo con IMPRESSION: No acute intracranial process. Electronically authenticated by: CARO GRIFFIN Date: 09/14/2023 16:10
[2023-09-14] MEDS: HYDROMORPHONE HCL 0.5 MG/0.5 ML SYRINGE IV (16:02)
== END 2023-09-14 16:41 | disposition home or self-care (01) ==
PROVIDERS: Emergency Provider Emergency Medicine; PCP Nurse Practitioner Family
DX: G43.909 Migraine, unspecified, not intractable, without status migrainosus (principal); Z79.82 Long term (current) use of aspirin; M19.90 Unspecified osteoarthritis, unspecified site; F31.9 Bipolar disorder, unspecified; E03.9 Hypothyroidism, unspecified; K21.9 Gastro-esophageal reflux disease without esophagitis; G47.30 Sleep apnea, unspecified; I27.20 Pulmonary hypertension, unspecified; E78.00 Pure hypercholesterolemia, unspecified; I10 Essential (primary) hypertension; Z98.51 Tubal ligation status; Z90.710 Acquired absence of both cervix and uterus; Z90.49 Acquired absence of other specified parts of digestive tract; Z87.891 Personal history of nicotine dependence
CPT/HCPCS: 70450; 96365; 96375; 99285; J1170; J2919

== ENCOUNTER 2023-09-15 12:16 | Inpatient (IN) | payer MEDICARE, SELFPAY ==
[2023-09-15] VITALS (8 sets, daily range): BP systolic 147–183; BP diastolic 73–80; PULSE 45–64; TEMP 36.4–36.6; O2SAT 92–96; BMI 31.4
--- NOTE | 2023-09-15 12:38 | P.HP_ITS ---
HPI H&P: HPI History of Present Illness Chief complaint: MIGRAINE Narrative: Patient was seen and evaluated in the emergency room the previous day. Given multiple medications to resolve this 2-day history of migraine. She was given a dose of Dilaudid that seem to be the final factor. She went home and headache was resolved but overnight has recurred. Plan was to admit for DHE 2 to 3 days therapy. When I evaluated patient she was having moderate painful distress secondary to migraine but no focal neurological deficits. Other than the headache she feels fine, no fever, new or URI symptoms no UTI symptoms. Patient will be admitted for 3-day DHE therapy. Opioid HPI Opioid Management Most Recent Opioid Data: Last Pain Scale 5 07/12/23 08:04 Last ORT Total Score 9 09/15/23 12:42 Last ORT Risk Category High Risk 09/15/23 12:42 Review of Systems ROS Status of ROS 10 or more systems reviewed and unremark able except as noted in history and below Constitutional Denies: fever, chills or change in weight PFSH PFSH Medical History Loud snoring ?R06.83 - Snoring (ICD-10) Osteoarthritis ?M19.90 - Unspecified osteoarthritis, unspecified site (ICD-10) Neck pain ?M54.2 - Cervicalgia (ICD-10) Bipolar 1 disorder ?F31.9 - Bipolar disorder, unspecified (ICD-10) Hearing deficit ?H91.90 - Unspecified hearing loss, unspecified ear (ICD-10) Anxiety ?F41.9 - Anxiety disorder, unspecified (ICD-10) Acid reflux ?K21.9 - Gastro-esophageal reflux disease without esophagitis (ICD-10) Obesity ?E66.9 - Obesity, unspecified (ICD-10) Hypothyroid ?E03.9 - Hypothyroidism, unspecified (ICD-10) Pulmonary hypertension ?I27.20 - Pulmonary hypertension, unspecified (ICD-10) Sleep apnea ?G47.30 - Sleep apnea, unspecified (ICD-10) High cholesterol ?E78.00 - Pure hypercholesterolemia, unspecified (ICD-10) Hypertension ?I10 - Essential (primary) hypertension (ICD-10) Surgical History History of mandibular surgery ?Z98.890 - Other specified postprocedural states (ICD-10) Hx of tubal ligation ?Z98.51 - Tubal ligation status (ICD-10) History of appendectomy ?Z90.49 - Acquired absence of other specified parts of digestive tract (ICD- 10) History of hysterectomy ?Z90.710 - Acquired absence of both cervix and uterus (ICD-10) Family History Mother Family history of cancer Sister Family history of cancer Social History Within the past year, how often did you have a drink containing alcohol: never Score interpretation: A score less than 3 is consistent with normal alcohol consumption. Smoking status: Former smoker Non-prescribed substance use: denies use Previous occupational history: [employer] Highest level of school completed/degree received: 11th grade Are you now , , , , never or living with a partner: In a typical week, how many times do you talk on the telephone with family, friends, or neighbors: 3 or more times per week How often do you get together with friends or relatives: 3 or more times per week How often do you attend orthodoxy or scientologist services: 4 or more times per year Do you belong to any clubs or organizations such as orthodoxy groups unions, [employer] or athletic groups, or school groups: no Total score: 2 Score interpretation: A score of greater than or equal to 2 indicates the lowest level of social isolation. Little interest or pleasure in doing things: not at all Feeling down, depressed, or hopeless: not at all Feel stressed/tense/nervous/anxious/difficulty sleeping: not at all Gender Identity: female Meds Home Medications and Allergies Home Medications ?Medication ?Instructions ?Recorded ?Confirmed ?Type albuterol sulfate 90 mcg/actuation 2 inh inhalation Q6H PRN shortness 10/21/22 09/15/23 History breath activated powder inhaler of breath or wheezing aripiprazole 30 mg tablet (Abilify) 30 mg PO QDAY 10/21/22 09/15/23 History aspirin 81 mg capsule 81 mg PO QDAY 10/21/22 09/15/23 History diclofenac sodium 50 mg 50 mg PO BID 10/21/22 09/15/23 History tablet,delayed release fluoxetine 40 mg capsule (Prozac) 80 mg PO QDAY 10/21/22 09/15/23 History levothyroxine 50 mcg tablet 50 mcg PO QDAY 10/21/22 09/15/23 History (Euthyrox) metoprolol tartrate 25 mg tablet 25 mg PO BID 10/21/22 09/15/23 History omeprazole 40 mg capsule,delayed 80 mg PO DAILY 10/21/22 09/15/23 History release ropinirole 1 mg tablet 1 mg PO QDAY PRN restless leg(s) 10/21/22 09/15/23 History oxycodone-acetaminophen 5 mg-325 1 tab PO DAILY PRN pain #30 tabs 06/22/23 09/15/23 Rx mg tablet (Endocet) amitriptyline 25 mg tablet 25 mg PO BEDTIME 09/15/23 09/15/23 History Allergies Allergy/AdvReac Type Severity Reaction Status Date / Time sumatriptan [From Imitrex] Allergy Severe Verified 07/12/23 08:01 Exam Constitutional Documenting provider has reviewed patient's vital signs: yes Common normals: apparent distress (Moderate painful distress) Exam limitations: no altered mental status Chest Common normals: inspection of chest normal Respiratory Common normals: normal respiratory effort and no retractions Cardio Common normals: regular rate GI Common normals: Normal to inspection, nondistended, normoactive bowel sounds present and soft to palpation Neuro Common normals: oriented x3, CN's II-XII intact bilaterally, moves all extremities, no focal motor deficits and no sensory deficits noted Meningeal signs: no meningeal signs; no nuccal rigidity Assessment and Plan Assessment and Plan (1) Migraine: Plan Intractable migraine. Patient has a history of migraine. Has not had 1 this extensive for quite some time. This has been lasting 3 days despite multiple medical therapies as an outpatient. Seen in the office and the following day in the ER. So far all ineffective. Patient is admitted for IV therapy. This should be DHE which would last for not quite 3 days. No need to repeat CT scan she has no neurological deficits and no real change from the previous day where she did have a CT scan that was negative. Checking labs. Lumbar radiculopathy-medications as above may help that while she is here. Anxiety and depression-continue with home medications ' Admission status: Patient with failed outpatient treatment with 2 outpatient treatments with not effective. Patient is in need of DHE therapy which will be 6 doses every 8 hours for lasting more than 2 midnights. Medically necessary treatment spanning 2 midnights will necessitate an inpatient admission status
[2023-09-15 13:47] LABS: Basophils Absolute Auto 0.1 10^3/uL (0.0-0.1); Basophils Percent Auto 0.4 % (0.2-2.0); Eosinophils Percent Auto 0.2 % (0.9-7.0); Hematocrit 33.2 % (36.0-48.0); Hemoglobin 10.2 g/dL (12.0-16.0); Immature Granulocytes Abs Auto 0.06 10^3/uL (0.00-0.03); Immature Granulocytes Pct Auto 0.5 % (0.0-0.5); Lymphocytes Absolute Auto 2.3 10^3/uL (1.2-3.8); Lymphocytes Percent Auto 17.3 % (20.5-60.0); Mean Corpuscular HGB Conc 30.7 g/dL (29.9-35.2); Mean Corpuscular Hemoglobin 26.3 pg (26.7-34.0); Mean Corpuscular Volume 85.6 fL (81.0-99.0); Monocytes Absolute Auto 0.8 10^3/uL (0.3-0.8); Monocytes Percent Auto 5.9 % (1.7-12.0); Neutrophils Absolute Auto 9.8 10^3/uL (1.4-6.5); Neutrophils Percent Auto 75.7 % (43.0-75.0); Platelet Count 381 10^3/uL (150-450); Red Blood Count 3.88 10^6/uL (4.20-5.40); Red Cell Distribution Width 17.5 % (11.0-15.0)
[2023-09-15 14:01] LABS: Alanine Aminotransferase 17 U/L (14-59); Albumin Globulin Ratio 0.9; Alkaline Phosphatase 62 U/L (46-116); Anion Gap 12.8; Aspartate Amino Transferase 16 U/L (15-37); BUN Creatinine Ratio 27.5; Bilirubin Total 0.3 mg/dL (0.2-1.0); Calcium 8.5 mg/dL (8.5-10.1); Carbon Dioxide 27.1 mmol/L (21.0-32.0); Chloride 105 mmol/L (98-107); Estimated GFR (African America >60 (>=60); Estimated GFR (Non-African Ame >60 (>=60); Globulin 3.5 g/dL; Glucose 82 mg/dL (74-106); Potassium 3.9 mmol/L (3.5-5.1); Sodium 141 mmol/L (136-145); Total Protein 6.5 g/dL (6.4-8.2)
[2023-09-15 14:16] LABS: Erythrocyte Sedimentation Rate 42 mm/hr (<=30)
[2023-09-15] MEDS: DIPHENHYDRAMINE HCL 25 MG/10 ML ELIXIR 12.5 MG PO ×2 (14:38→20:03)
[2023-09-15] MEDS: MAGNESIUM SULFATE IN WATER 2 GM/50 ML PREMIX IV (14:38)
[2023-09-15] MEDS: PROMETHAZINE HCL 25 MG in 0.9 % SODIUM CHLORIDE 50 ML 204 MG IV ×2 (14:38→19:59)
[2023-09-15] MEDS: KETOROLAC TROMETHAMINE 30 MG/ML VIAL 15 MG IVP ×2 (14:39→20:03)
[2023-09-15] MEDS: VALPROIC ACID INJ 500 MG in 0.9 % SODIUM CHLORIDE 50 ML 55 MG IV (14:39)
[2023-09-15] MEDS: ORPHENADRINE 60 MG/ 2 ML VIAL IV (14:40)
[2023-09-15] MEDS: DIHYDROERGOTAMINE MESYLATE 1 MG/ML AMPUL 0.5 MG IV ×2 (15:00→22:03)
[2023-09-15 15:04] LABS: Thyroid Stimulating Hormone 0.941 uIU/mL (0.358-3.740)
[2023-09-15] MEDS: METOPROLOL TARTRATE 50 MG TABLET 25 MG PO ×2 (17:59→20:04)
[2023-09-15] MEDS: AMITRIPTYLINE HCL 25 MG TABLET PO (21:56)
[2023-09-15] MEDS: ROPINIROLE HCL 1 MG TABLET PO (22:02)
[2023-09-15 22:48] LABS: Bilirubin Urine NEGATIVE (NEGATIVE); Blood Urine NEGATIVE (NEGATIVE); Clarity Urine CLEAR (CLEAR); Color Urine YELLOW (YELLOW); Glucose Urine UA NEGATIVE (NEGATIVE); Ketones Urine NEGATIVE (NEGATIVE); Leukocyte Esterase Urine NEGATIVE (NEGATIVE); Nitrite Urine NEGATIVE (NEGATIVE); Protein Urine NEGATIVE (NEG/TRACE); Urobilinogen Urine 0.2 EU/dL (0.2-1.0)
[2023-09-15 23:00] LABS: Bacteria Urine NONE SEEN #/HPF (NONE SEEN); Cast Seen? NONE SEEN #/LPF (NONE SEEN); Crystals Seen? None Seen #/HPF (None Seen); Mucus Urine NONE SEEN (NONE SEEN); RBC Urine 0-2 #/HPF (0-2); Squamous Epithelial Cell Urine FEW #/LPF (NONE/RARE); Urine Culture Indicated ALREADY ORDERED
[2023-09-16] VITALS (19 sets, daily range): BP systolic 122–155; BP diastolic 56–79; PULSE 43–78; TEMP 36.2–36.9; O2SAT 92–97
[2023-09-16] MEDS: KETOROLAC TROMETHAMINE 30 MG/ML VIAL 15 MG IVP ×4 (01:36→19:29)
[2023-09-16] MEDS: DIPHENHYDRAMINE HCL 25 MG/10 ML ELIXIR 12.5 MG PO ×4 (01:37→19:28)
[2023-09-16] MEDS: PROMETHAZINE HCL 25 MG in 0.9 % SODIUM CHLORIDE 50 ML 204 MG IV ×4 (01:38→19:29)
[2023-09-16] MEDS: ORPHENADRINE 60 MG/ 2 ML VIAL IV ×2 (01:38→14:27)
[2023-09-16 04:37] LABS: Basophils Absolute Auto 0.1 10^3/uL (0.0-0.1); Basophils Percent Auto 0.9 % (0.2-2.0); Eosinophils Absolute Auto 0.2 10^3/uL (0.0-0.7); Eosinophils Percent Auto 1.5 % (0.9-7.0); Hematocrit 34.3 % (36.0-48.0); Hemoglobin 10.3 g/dL (12.0-16.0); Immature Granulocytes Abs Auto 0.07 10^3/uL (0.00-0.03); Immature Granulocytes Pct Auto 0.6 % (0.0-0.5); Lymphocytes Absolute Auto 2.3 10^3/uL (1.2-3.8); Lymphocytes Percent Auto 19.6 % (20.5-60.0); Mean Corpuscular Hemoglobin 25.9 pg (26.7-34.0); Mean Corpuscular Volume 86.2 fL (81.0-99.0); Mean Platelet Volume 10.3 fL (9.5-13.5); Monocytes Absolute Auto 0.9 10^3/uL (0.3-0.8); Monocytes Percent Auto 7.3 % (1.7-12.0); Neutrophils Absolute Auto 8.2 10^3/uL (1.4-6.5); Neutrophils Percent Auto 70.1 % (43.0-75.0); Platelet Count 372 10^3/uL (150-450); Red Blood Count 3.98 10^6/uL (4.20-5.40); Red Cell Distribution Width 17.7 % (11.0-15.0); White Blood Count 11.7 10^3/uL (4.0-11.0)
[2023-09-16 04:45] LABS: Erythrocyte Sedimentation Rate 47 mm/hr (<=30)
[2023-09-16 04:48] LABS: Anion Gap 12.5; BUN Creatinine Ratio 29.5; Calcium 7.8 mg/dL (8.5-10.1); Carbon Dioxide 23.9 mmol/L (21.0-32.0); Chloride 108 mmol/L (98-107); Estimated GFR (African America >60 (>=60); Estimated GFR (Non-African Ame >60 (>=60); Glucose 78 mg/dL (74-106); Potassium 4.4 mmol/L (3.5-5.1); Sodium 140 mmol/L (136-145)
[2023-09-16] MEDS: DIHYDROERGOTAMINE MESYLATE 1 MG/ML AMPUL 0.5 MG IV ×3 (06:14→22:01)
--- NOTE | 2023-09-16 07:35 | P.PN_ITS ---
Exam Narrative Exam Narrative: Patient admitted with intractable migraine for 3 days, headache is improved, was down to 4 but is back up to 6 this morning. Constitutional Vital Signs, click to edit/add: Last Vital Signs Temp 97.8 F 09/16/23 04:53 Pulse 54 L 09/16/23 06:00 Resp 18 09/16/23 04:53 BP 142/61 H 09/16/23 04:53 Pulse Ox 95 09/16/23 04:53 O2 Del Method Room Air 09/16/23 04:53 Documenting provider has reviewed patient's vital signs: yes Common normals: apparent distress (mild painful distress - improved) Exam limitations: no altered mental status Chest Common normals: inspection of chest normal Respiratory Common normals: normal respiratory effort and no retractions Cardio Common normals: regular rate, regular rhythm and no murmurs GI Common normals: Normal to inspection, nondistended, normoactive bowel sounds present and soft to palpation Neuro Common normals: oriented x3, CN's II-XII intact bilaterally, moves all extremities, no focal motor deficits and no sensory deficits noted Meningeal signs: no meningeal signs; no nuccal rigidity Progress Note: Objective Labs Labs: Short CBC 09/15/23 09/16/23 Range/Units 13:32 04:01 WBC 13.0 H 11.7 H (4.0-11.0) 10^3/uL Hgb 10.2 L 10.3 L (12.0-16.0) g/dL Hct 33.2 L 34.3 L (36.0-48.0) % Plt Count 381 372 (150-450) 10^3/uL BMP 09/15/23 09/16/23 13:32 04:01 Sodium 141 140 Potassium 3.9 4.4 Chloride 105 108 H Carbon Dioxide 27.1 23.9 BUN 25.0 H 26.0 H Creatinine 0.91 0.88 Glucose 82 78 Calcium 8.5 7.8 L Liver Function 09/15/23 Range/Units 13:32 Total Bilirubin 0.3 (0.2-1.0) mg/dL AST 16 (15-37) U/L ALT 17 (14-59) U/L Alkaline Phosphatase 62 (46-116) U/L Albumin 3.0 L (3.4-5.0) g/dL Urine 09/15/23 Range/Units 22:37 Urine Color Yellow (YELLOW) Urine Clarity Clear (CLEAR) Urine pH 6.0 (5.0-9.0) Ur Specific [place] 1.020 (1.005-1.025) Urine Protein Negative (NEG/TRACE) mg/dL Urine Glucose (UA) Negative (NEGATIVE) mg/dL Progress Note: A&P Assessment and Plan (1) Migraine: Plan Admission findings : intractable migraine. Patient has a history of migraine. Has not had 1 this extensive for quite some time. This has been lasting 3 days despite multiple medical therapies as an outpatient. Seen in the office and the following day in the ER. So far all ineffective. Patient is admitted for IV therapy. DHE, magnesium, Depakote, Toradol, Norflex, Phenergan, Benadryl. Which would last for not quite 3 days. No need to repeat CT scan she has no neurological deficits and no real change from the previous day where she did have a CT scan that was negative. Leukocytosis-likely related to steroids given in ER previous day. Improved today. Uncontrolled hypertension now with significant bradycardia-restarted her beta- michelle yesterday but heart rate now into the 40s. Will change patient to lisinopril knowing her losing the migraine preventive effect Lumbar radiculopathy-medications as above may help that while she is here. Anxiety and depression-continue with home medications Iron deficiency anemia-Down slightly today, continue to follow GERD-continue with home medications ' Admission status: Patient with failed outpatient treatment with 2 outpatient treatments with not effective. Patient is in need of DHE therapy which will be 6 doses every 8 hours for lasting more than 2 midnights. Medically necessary treatment spanning 2 midnights will necessitate an inpatient admission status- possible discharge in a.m. if blood pressure, migraine improved ?
[2023-09-16] MEDS: LISINOPRIL 20 MG TABLET PO (08:21)
[2023-09-16] MEDS: OMEPRAZOLE 40 MG CAPSULE.DR 80 MG PO (08:21)
[2023-09-16] MEDS: FLUOXETINE HCL 20 MG CAPSULE 80 MG PO (08:21)
[2023-09-16] MEDS: ARIPIPRAZOLE 15 MG TABLET 30 MG PO (08:21)
--- NOTE | 2023-09-16 09:51 | SWNOTE1 ---
SW met with pt to discuss dc needs. Pt lives at home by herself. She has a good support system between family and friends. She is independent at home. Pt voices no discharge needs at this time. Important Message from Medicare reviewed and discussed with patient. Pt. verbalized understanding and signed the form. Original given to patient and copy placed in patient?s chart.
[2023-09-16] MEDS: ACETAMINOPHEN 500 MG TABLET 1000 MG PO (19:29)
[2023-09-16] MEDS: AMITRIPTYLINE HCL 25 MG TABLET PO (22:00)
[2023-09-16] MEDS: HYDROMORPHONE HCL 0.5 MG/0.5 ML SYRINGE IV (23:35)
[2023-09-17] VITALS (9 sets, daily range): BP systolic 140–153; BP diastolic 69–72; PULSE 40–44; TEMP 36.3–36.6; O2SAT 78–96
--- NOTE | 2023-09-17 03:08 | PC.NURSE ---
Tele monitor called to inform RN of patient heart rate dropping to 37.Woke patient up and heart rate has sustained 44-55
[2023-09-17 04:42] LABS: Basophils Absolute Auto 0.1 10^3/uL (0.0-0.1); Basophils Percent Auto 0.9 % (0.2-2.0); Eosinophils Absolute Auto 0.3 10^3/uL (0.0-0.7); Eosinophils Percent Auto 3.4 % (0.9-7.0); Hemoglobin 10.4 g/dL (12.0-16.0); Immature Granulocytes Abs Auto 0.09 10^3/uL (0.00-0.03); Immature Granulocytes Pct Auto 0.9 % (0.0-0.5); Lymphocytes Absolute Auto 2.5 10^3/uL (1.2-3.8); Lymphocytes Percent Auto 24.8 % (20.5-60.0); Mean Corpuscular HGB Conc 30.6 g/dL (29.9-35.2); Mean Corpuscular Hemoglobin 26.3 pg (26.7-34.0); Mean Corpuscular Volume 86.1 fL (81.0-99.0); Mean Platelet Volume 10.3 fL (9.5-13.5); Monocytes Absolute Auto 0.8 10^3/uL (0.3-0.8); Monocytes Percent Auto 7.5 % (1.7-12.0); Neutrophils Absolute Auto 6.2 10^3/uL (1.4-6.5); Neutrophils Percent Auto 62.5 % (43.0-75.0); Platelet Count 356 10^3/uL (150-450); Red Blood Count 3.95 10^6/uL (4.20-5.40); Red Cell Distribution Width 18.2 % (11.0-15.0)
[2023-09-17 04:48] LABS: Erythrocyte Sedimentation Rate 41 mm/hr (<=30)
[2023-09-17 05:02] LABS: Anion Gap 12.4; Calcium 8.6 mg/dL (8.5-10.1); Carbon Dioxide 25.3 mmol/L (21.0-32.0); Chloride 108 mmol/L (98-107); Estimated GFR (African America >60 (>=60); Estimated GFR (Non-African Ame 55 (>=60); Glucose 75 mg/dL (74-106); Potassium 4.7 mmol/L (3.5-5.1); Sodium 141 mmol/L (136-145)
[2023-09-17] MEDS: DIHYDROERGOTAMINE MESYLATE 1 MG/ML AMPUL 0.5 MG IV (06:19)
[2023-09-17] MEDS: BUTALB/ACETAMINOPHEN/CAFFEINE 50-325-40MG TABLET 1 TAB PO (07:58)
[2023-09-17] MEDS: LISINOPRIL 20 MG TABLET PO (08:17)
[2023-09-17] MEDS: OMEPRAZOLE 40 MG CAPSULE.DR 80 MG PO (08:17)
[2023-09-17] MEDS: FLUOXETINE HCL 20 MG CAPSULE 80 MG PO (08:18)
[2023-09-17] MEDS: ARIPIPRAZOLE 15 MG TABLET 30 MG PO (08:18)
--- NOTE | 2023-09-17 09:11 | P.DS_ITS ---
DS: Providers Provider Date of admission: 09/15/23 12:16 Primary care physician: POLO SILVA Consults: 09/15/23 12:38 Consult to Pharmacy Routine Consulting Provider: Reason for consultation: Please Thorp me when Med Rec is Updated Has provider been notified: No Occupational Therapy Eval and Treat Routine Reason for consultation: Only if needed for Rehab Has provider been notified: No Physical Therapy Eval and Treat Routine Reason for consultation: Eval and Treat Has provider been notified: No DS: Diagnosis Discharge Diagnosis (1) Migraine: Plan Admission findings : intractable migraine. Patient has a history of migraine. Has not had 1 this extensive for quite some time. This has been lasting 3 days despite multiple medical therapies as an outpatient. Seen in the office and the following day in the ER. So far all ineffective. Patient is admitted for IV therapy. DHE, magnesium, Depakote, Toradol, Norflex, Phenergan, Benadryl. Which would last for not quite 3 days. No need to repeat CT scan she has no neurological deficits and no real change from the previous day where she did have a CT scan that was negative.-Migraine improving at the time of discharge Leukocytosis-likely related to steroids given in ER previous day. Resolved at the time of discharge Bradycardia-monitor as an outpatient 7-day Holter Uncontrolled hypertension now with significant bradycardia-restarted her beta-b locker yesterday but heart rate now into the 40s. Will change patient to lisinopril knowing her losing the migraine preventive effect-stable at the time of discharge Lumbar radiculopathy-medications as above may help that while she is here.- Stable at the time of discharge Anxiety and depression-continue with home medications-stable at the time of discharge Iron deficiency anemia-Down slightly today, continue to follow-stable at time of discharge GERD-continue with home medications-stable at the time of discharge ' Admission status: Patient with failed outpatient treatment with 2 outpatient treatments with not effective. Patient is in need of DHE therapy which will be 6 doses every 8 hours for lasting more than 2 midnights. Medically necessary treatment spanning 2 midnights will necessitate an inpatient admission status- possible discharge in a.m. if blood pressure, migraine improved ? ? DS: Summary Hospital Course Hospital Course: Patient was seen in the outpatient setting 2 days prior to being admitted for intractable migraine. 1 day prior to being admitted she was seen in the emergency room. Treated and released. Migraine persisted the following morning. She was admitted for intractable migraine. Given DHE. She has received her 6 doses. Her migraine is overall improved. Fioricet seem to help further this morning. Blood pressure will need to be followed as an outpatient. The only other complicating factor was her bradycardia. Will set up for Holter monitor. Patient also with possible sleep apnea she does have some decreased O2 saturation at nighttime. Can follow-up with that as an outpatient also. At this point she is medically stable for discharge. Medications see list. Patient will be discharged to home Time Spent with Patient Time attestation: Total time spent providing and/or coordinating discharge services: Exam Narrative Exam Narrative: Patient admitted with intractable migraine for 3 days, headache is improved, was down to 4 but is back up to 6 this morning. Constitutional Vital Signs, click to edit/add: Last Vital Signs Temp 97.4 F L 09/17/23 07:53 Pulse 43 L 09/17/23 08:00 Resp 20 09/17/23 07:53 BP 140/69 09/17/23 07:53 Pulse Ox 96 09/17/23 07:53 O2 Del Method Room Air 09/17/23 07:53 O2 Flow Rate 1 09/17/23 03:08 Documenting provider has reviewed patient's vital signs: yes Common normals: no apparent distress Exam limitations: no altered mental status Chest Common normals: inspection of chest normal Respiratory Common normals: normal respiratory effort and no retractions Cardio Common normals: regular rate, regular rhythm and no murmurs GI Common normals: Normal to inspection, nondistended, normoactive bowel sounds present and soft to palpation Neuro Common normals: oriented x3, CN's II-XII intact bilaterally, moves all extremities, no focal motor deficits and no sensory deficits noted Meningeal signs: no meningeal signs; no nuccal rigidity DS: Data Data Completed and Pending Labs on day of discharge: Labs from last 24 hours 09/17/23 04:10 WBC 10.0 RBC 3.95 L Hgb 10.4 L Hct 34.0 L MCV 86.1 MCH 26.3 L MCHC 30.6 RDW 18.2 H Plt Count 356 MPV 10.3 Neut % (Auto) 62.5 Lymph % (Auto) 24.8 [place] % (Auto) 7.5 Eos % (Auto) 3.4 Baso % (Auto) 0.9 Neut # (Auto) 6.2 Lymph # (Auto) 2.5 [place] # (Auto) 0.8 Eos # (Auto) 0.3 Baso # (Auto) 0.1 Abs Immat Gran (auto) 0.09 H Imm/Tot Granulo (auto) 0.9 H ESR 41 H Sodium 141 Potassium 4.7 Chloride 108 H Carbon Dioxide 25.3 Anion Gap 12.4 BUN 33.0 H Creatinine 1.00 Est GFR ( Amer) >60 Est GFR (Non-Af Amer) 55 L BUN/Creatinine Ratio 33.0 Glucose 75 Calcium 8.6 Discharge Plan Discharge Disposition: Home, Self-Care Discharge Medications: New lisinopril 20 mg Tablet 20 mg PO QD Qty: 30 11RF iispbkcmby-fyubeorydnvog-gpwo 50-325-40 mg Tablet 1 tab PO Q4H PRN (Reason: Migraine Headache) Qty: 30 2RF Continued aspirin 81 mg capsule 81 mg PO QDAY Hold Instructions: Order Change aripiprazole [Abilify] 30 mg tablet 30 mg PO QDAY fluoxetine [Prozac] 40 mg capsule 80 mg PO QDAY omeprazole 40 mg capsule,delayed release(DR/EC) 80 mg PO DAILY ropinirole 1 mg tablet 1 mg PO QDAY PRN (Reason: restless leg(s)) albuterol sulfate 90 mcg/actuation aerosol powdr breath activated 2 inh inhalation Q6H PRN (Reason: shortness of breath or wheezing) diclofenac sodium 50 mg tablet,delayed release (DR/EC) 50 mg PO BID amitriptyline 25 mg tablet 25 mg PO BEDTIME oxycodone-acetaminophen [Endocet] 5-325 mg tablet See Rx Instructions PO DAILY PRN (Reason: pain) Rx Instructions: take one-half to one tablet by mouth once daily prn orally daily PRN; MUST LAST 30 DAYS levothyroxine [Euthyrox] 50 mcg tablet 50 mcg PO QDAY Qty: 30 11RF Discontinued metoprolol tartrate 25 mg tablet 25 mg PO BID Hold Instructions: per patient: not taking any longer 09/15/23 Patient Comments: per patient: not taking any longer 09/15/23 Print Language: [place] Citizen Patient Instructions: Lisinopril (By mouth), Butalbital/Acetaminophen/Caffeine (By mouth), Migraine Headache (GEN) Activity Restrictions/Additional Instructions: Follow instructions given by Cardio regarding home going heart monitor Forms: Portal Instructions Follow Up Appointments: September 19 @ 9:15am with Dr. Townsend [phone]
--- NOTE | 2023-09-19 14:17 | CM.DCFOLLOWU ---
Person spoke with: patient How are you feeling? well How is your pain? no pain Did you understand your discharge instructions? yes Do you have any questions about your discharge instructions? no Were you given any prescriptions at discharge? yes Were you able to get your prescriptions filled? yes Do you understand how to take your medications as ordered? yes Do you have any questions about your follow up appointment and do you plan to keep your follow up appointment? no questions, follow up moved to Tuesday with Dr. Townsend Is there anything else that you would like to discuss? no Questions/Comments/Concerns/Other:
== END 2023-09-17 11:34 | disposition home or self-care (01) | DRG 103 ==
PROVIDERS: Admitting Provider Family Medicine; PCP Nurse Practitioner Family; Visit Provider Family Medicine
DX: G43.919 Migraine, unspecified, intractable, without status migrainosus (principal); M54.16 Radiculopathy, lumbar region; F41.9 Anxiety disorder, unspecified; D72.829 Elevated white blood cell count, unspecified; I10 Essential (primary) hypertension; R00.1 Bradycardia, unspecified; D50.9 Iron deficiency anemia, unspecified; K21.9 Gastro-esophageal reflux disease without esophagitis; M19.90 Unspecified osteoarthritis, unspecified site; F31.9 Bipolar disorder, unspecified; E03.9 Hypothyroidism, unspecified; G47.30 Sleep apnea, unspecified; I27.20 Pulmonary hypertension, unspecified; E78.00 Pure hypercholesterolemia, unspecified; H91.90 Unspecified hearing loss, unspecified ear; E66.9 Obesity, unspecified; T38.0X5A Adverse effect of glucocorticoids and synthetic analogues, initial encounter; Z68.31 Body mass index [BMI] 31.0-31.9, adult; Z79.82 Long term (current) use of aspirin; Z90.710 Acquired absence of both cervix and uterus; Z87.891 Personal history of nicotine dependence; Z90.49 Acquired absence of other specified parts of digestive tract; Z79.899 Other long term (current) drug therapy; Z79.890 Hormone replacement therapy; Z98.51 Tubal ligation status
CPT/HCPCS: 36415; 70450; 80048; 80053; 81001; 84436; 84443; 85025; 85652; 87040; 87086; 93246; 96365; 96366; 96368; 96375; 96376; 99285; J1170; J2919

== ENCOUNTER 2023-10-03 07:56 | Outpatient (OUT) | payer MEDICARE, SELFPAY ==
--- NOTE | 2023-10-03 08:05 | CT_ITS ---
[address] [address] Patient Name: MELANIE TOMPKINS MRN: [id number] date: 1955 Sex: F Assigned Patient Location: CT Current Patient Location: CT Accession/Order Number: [id number] Exam Date: 10/03/2023 08:10 Report Date: 10/03/2023 09:28 At the request of: POLO SILVA Procedure: CT lung screening low-dose EXAMINATION: CT lung screening low-dose HISTORY: Personal History Nicotine Dependence Z87.891 COMPARISON: 09/17/2022 TECHNIQUE: Axial, Coronal, and Sagittal images were created without the administration of IV contrast material. Dose reduction techniques were achieved by using automated exposure control and/or adjustment of mA and/or kV according to patient size and/or use of iterative reconstruction technique. FINDINGS: LUNGS: Scattered patchy infiltrates with a peripheral predominance, chronic interstitial changes are favored. A few scattered subcentimeter groundglass nodules are noted the largest measuring 5 mm in the right upper lobe axial image 42. These findings appears stable from the prior exam.. No new significant pulmonary nodule or mass PLEURA: No mass, effusion, or pneumothorax. VASCULATURE: No abnormality. JOSÉ: No mass or pathologic adenopathy. MEDIASTINUM: No mass or pathologic adenopathy. CARDIAC: No enlargement, pericardial thickening, or significant calcification. CORONARY ARTERIES: Coronary calcifications are moderate. AORTA: No aortic aneurysm. Moderate diffuse calcific atherosclerosis CHEST WALL: No mass or axillary adenopathy BONES: No bone lesion or fracture. LIMITED ABDOMEN: Large hiatal hernia OTHER: Negative. CT/CT lung screening low-dose IMPRESSION: LUNG SCREENING: Lung-RADS Category 2- Benign Appearance or Behavior. Nodules with a very low likelihood of becoming a clinically active cancer due to size or lack of growth. 2. Continue annual screening with LDCT in 12 months. Electronically authenticated by: ROBERT CONDON Date: 10/03/2023 09:28
== END 2023-10-03 07:57 | disposition home or self-care (01) ==
LOC: CT 07:56
PROVIDERS: PCP Nurse Practitioner Family; Visit Provider Nurse Practitioner Family
DX: Z87.891 Personal history of nicotine dependence (principal)
CPT/HCPCS: 71271

== ENCOUNTER 2023-10-10 21:00 | Outpatient (OUT) | payer MEDICARE, SELFPAY ==
--- OUTSIDE RECORDS SUMMARY | 2023-10-11 07:09 | XMS_ITS | CCD ---
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 [facility] Comment on above: Performed By: #### H DENIS, CMP ####[facility] [address] [place], [place] [address]Dr. Deborah Mohan Urea nitrogen [Mass/Vol] 28.0 mg/dL Critically high 7.0-18.0 [facility] Comment on above: Performed By: #### H DENIS, CMP ####[facility] [address] [address]Dr. Deborah Mohan Urea nitrogen/Creatinine [Mass ratio] 23.1 mg/mg Normal [facility] Comment on above: Performed By: #### H STROMAVIS, CMP ####[facility] [address] [address]Dr. Deborah Marques TROPONIN, HIGH SENSITIVITYon 04-07-2022 HSTROP 5.9 pg/mL Normal 4.0-51.3 [facility] Comment on above: Result Comment: CUT- OFF POINTS HAVE BEEN ESTABLISHED BASED ON THE FOURTH UNIVERSAL DEFINITIONS OF MYOCARDIAL INFARCTION. THE UPPER REFERENCE LIMIT (URL) OF TROPONIN, DEFINED THE 99TH PERCENTILE OF cTnI DISTRIBUTION IN A REFERENCE POPULATION, HAS BEEN CONFIRMED THE DECISION THRESHOLD FOR [place] DIAGNOSIS. Performed By: #### H STROPN, CMP ####[facility] [address] [place], [place] [address]JmAnkur Mohan XR CHEST 1 Von 04-07-2022 XR [...] ANDERSON ALMANZAR Date: 2022-04-07 03:11 Normal [facility] Office Visiton 03-16-2022 Follow-up visit [id number] Mary Vick 1955 F Date Provider Department Center 03/16/2022 389-VERENA TAO HVCVASENDO LA Heart[facility]AS Family History Problem Relation Age of Onset Cancer Mother Cancer Sister Family Status - Relation Status Age at Mother Sister Level of Service:89829 [place] OFFICE/OUTPATIENT ESTABLISHED LOW MDM 20-29 MIN Reason for Visit and Comments: New Patient [632] - Mildly displaced fracture of upper sternum. Referral from Natividad Silva NP Normal [facility] HEMOGLOBINon 03-12-2022 Hemoglobin (Bld) [Mass/Vol] 9.2 g/dL Critically low 12.0-16.0 [facility] Comment on above: Performed By: #### A NARF #### [facility] [address] [place] [address] Dr. Deborah Mohan ANTI NEUTROPHIL CYTOPLASMIC AB (ANCA) PRon 03-09-2022 Anti-MPO Antibodies <0.2 Normal 0.0-0.9 [facility] Comment on above: Result Comment: Perf ormed at: BN Performed By: #### B OFFICE MOVER, HSTROPN, CMP #### [facility] [address] [place] [address] Dr. Deborah Mohan Anti-PR3 Antibodies <0.2 Normal 0.0-0.9 [facility] Comment on above: Result Comment: Perf ormed at: BN Performed By: #### B OFFICE MOVER, HSTROPN, CMP #### [facility] [address] [place] [address] Dr. Deborah Mohan Atypical pANCA 1:160 Critically high Neg:<1:20 [facility] Comment on above: Result Comment: The atypical pANCA pattern has been observed in a significant percentage of patients with ulcerative colitis, primary sclerosing cholangitis and autoimmune hepatitis. Performed at: CB Performed By: #### B OFFICE MOVER, HSTROPN, CMP #### [facility] [address] [place] [address] Dr. Deborah Mohan Cytoplasmic (C-ANCA) <1:20 Normal Neg:<1:20 [facility] Comment on above: Result Comment: Perf ormed at: CB Performed By: #### B OFFICE MOVER, HSTROPN, CMP #### [facility] [address] [place] [address] Dr. Deborah Mohan Perinuclear (P-ANCA) <1:20 Normal Neg:<1:20 [facility] Comment on above: Result Comment: The presence of positive fluorescence exhibiting P-ANCA or C-ANCA patterns alone is not specific for the diagnosis of Marlin's Granulomatosis (WG) or microscopic polyangiitis. Decisions about treatment should not be based solely on ANCA IFA results. The [employer] ANCA [employer] Consensus recommends follow up testing of positive sera with both MN-3 and MPO-ANCA enzyme immunoassays. As many as 5% serum samples are positive only by EIA. Ref. AM J Clin Pathol 1999;111:507-513. Performed at: CB Performed By: #### B OFFICE MOVER, HSTROPN, CMP #### [facility] [address] [place], [place] [address] Dr. Deborah Mohan ANTISCLERODERMA ABon 022 Antiscleroderma-70 Antibodies <0.2 Normal 0.0-0.9 [facility] Comment on above: Performed By: #### A NARF #### [facility] [address] [place], [place] [address] CHEST WO CONon [...] incidental findings, as described above. Normal [facility] CYCLIC CITRULLINATED PEPTIDE AB (CCP)on 03-09-2022 CCP Antibodies IgG/IgA 6 units Normal 0-19 [facility] Comment on above: Result Comment: Nega tive <20 Weak positive 20 - 39 Moderate positive 40 - 59 Strong positive >59 Performed By: #### B OFFICE MOVER, HSTROPN, CMP #### [facility] [address] [place], [place] [address] Dr. Deborah Mohan IGG SUBCLASSES (1-4) AND TOT Kade 03-09-2022 IgG, Subclass 1 448 mg/dL Normal 248-810 [facility] Comment on above: Performed By: #### B OFFICE MOVER, HSTROPN, CMP #### [facility] [address] [place], [place] [address] Dr. Deborah Mohan IgG, Subclass 2 253 mg/dL Normal 130-555 [facility] Comment on above: Performed By: #### B OFFICE MOVER, HSTROPN, CMP #### [facility] [address] [place], [place] [address] Dr. Deborah Mohan IgG, Subclass 3 95 mg/dL Normal 15-102 [facility] Comment on above: Performed By: #### B OFFICE MOVER, HSTROPN, CMP #### [facility] [address] [address] [address] Deborah Mohan IgG, Subclass 4 10 mg/dL Normal 2-96 [facility] Comment on above: Performed By: #### B OFFICE MOVER, HSTROPN, CMP #### [facility] [address] [address] [address] Deborah Mohan Immunoglobulin G, Qn, Serum 658 mg/dL Normal 586-1602 [facility] Comment on above: Performed By: #### B OFFICE MOVER, HSTROPN, CMP #### [facility] [address] [place] [address] Dr. Deborah Mohan IMMUNOGLOBULIN E, TOTALon Immunoglobulin E, Total 5 IU/mL Critically low 6-495 [facility] Comment on above: Performed By: #### I GETOT ####[facility] [address] [address]Dr. Deborah Mohan MICHELL EIA W/REFLEX 5 BIOMARKER Son 03-08-2022 MICHELL Direct Negative Normal Negative [facility] Comment on above: Performed By: #### A NARF #### [facility] [address] [address] [address] Deborah Mohan ANGIOTENSION-CONVERTING ENZY ME (FRANCESCO)on 03-08-2022 FRANCESCO 32 U/L Normal 14-82 [facility] Comment on above: Performed By: #### A NGIOC ####[facility] [address] [address]Dr. Deborah Mohan ANTIGLOMERULAR BASEMENT MEMB ROMMEL ABSon 03-08-2022 Anti-GBM Antibodies <0.2 Normal 0.0-0.9 [facility] Comment on above: Performed By: #### A GBM #### [facility] [address] [address] [address] Deborah Mohan IMMUNOGLOBULIN IGA QUANTITIA VEon 03-06-2022 Immunoglobulin A, Qn, Serum 229 mg/dL Normal 87-352 [facility] Comment on above: Performed By: #### A NARF #### [facility] [address] [address] [address] Deborah Mohan IMMUNOGLOBULIN IGM QUANTITAT IVEon 03-06-2022 Immunoglobulin M, Qn, Serum 83 mg/dL Normal 26-217 [facility] Comment on above: Performed By: #### B OFFICE MOVER, HSTROPN, CMP #### [facility] [address] [address] [address] Deborah Mohan RHEUMATOID FACTORon 03-06-20 RA Latex Turbid. 10.9 IU/mL Normal <14.0 [facility] Comment on above: Performed By: #### R F ####[facility] [address] [address]DrAnkur Mohan CREATININEon 03-05-2022 Creatinine [Mass/Vol] 1.38 mg/dL Critically high 0.55-1.02 [facility] Comment on above: Performed By: #### C MELVINA ####[facility] [address] [address]DrAnkur Mohan EGFR-AF IVORIAN 46 mL/min/1.73m2 Critically low >=60 [facility] Comment on above: Performed By: #### C MELVINA ####[facility] [address] [address]Dr. Deborah Mohan EGFR-NON AF IVORIAN 38 mL/min/1.73m2 Critically low >=60 [facility] Comment on above: Performed By: #### C MELVINA ####[facility] [address] [address]Dr. Deborah Mohan SED RATE WESTERGRENon 2021 SED RATE 92 mm/hr Critically high <=30 [facility] Comment on above: Performed By: #### B OFFICE MOVER, HSTROPN, CMP #### [facility] [address] [place] [address] Dr. Deborah Mohan XR DEXA BONE DENSITYon [...] by: ROBERT CONDON Date: 2022-03-05 16:56 Normal [facility] XR CHEST 1 Von 03-01-2022 [...] by: ROBERT NOVAK Date: 2022-02-28 22:27 Normal [facility] XR KNEE LUANA 4V or [...] by: RAUDEL ESTRADA Date: 2022-01-29 11:09 Normal [facility] CBC AUTO DIFFon 11-29-2021 BASO # 0.1 103/ul Normal 0.0-0.1 [facility] Comment on above: Performed By: #### C BC ####[facility] [address] [place], [place] [address]Dr. Deborah Mohan Basophils/100 WBC (Bld) 0.8 % Normal 0.2-2.0 [facility] Comment on above: Performed By: #### C BC ####[facility] [address] [address]Dr. Deborah Mohan EO # 0.3 103/ul Normal 0.0-0.7 [facility] Comment on above: Performed By: #### C BC ####[facility] [address] [address]Dr. Deborah Mohan Eosinophils/100 WBC (Bld) 2.2 % Normal 0.9-7.0 [facility] Comment on above: Performed By: #### C BC ####[facility] [address] [place], [place] [address]Dr. Deborah Mohan Erythrocyte distribution width (RBC) [Ratio] 21.2 % Critically high 11.0-15.0 [facility] Comment on above: Performed By: #### C BC ####[facility] [address] [place], [place] [address]Dr. Deborah Mohan Hematocrit (Bld) [Volume fraction] 33.2 % Critically low 36.0-48.0 [facility] Comment on above: Performed By: #### C BC ####[facility] [address] [place], [place] [address]Dr. Deborah Mohan Hemoglobin (Bld) [Mass/Vol] 10.3 g/dL Critically low 12.0-16.0 [facility] Comment on above: Performed By: #### C BC ####[facility] [address] [place], [place] [address]Dr. Deborah Mohan IG # 0.11 10e3/ul Critically high 0.00-0.03 [facility] Comment on above: Performed By: #### C BC ####[facility] [address] [place], [place] [address]Dr. Deborah Mohan IG % 0.9 % Critically high 0.0-0.5 [facility] Comment on above: Performed By: #### C BC ####[facility] [address] [place] [address]. Deborah Mohan LYMPH # 2.2 103/ul Normal 1.2-3.8 [facility] Comment on above: Performed By: #### C BC ####[facility] [address] [address]Dr. Deborah Mohan Lymphocytes/100 WBC (Bld) 18.5 % Critically low 20.5-60.0 [facility] Comment on above: Performed By: #### C BC ####[facility] [address] [address]Dr. Deborah Mohan MANUAL DIFF REQ NO Normal [facility] Comment on above: Performed By: #### C BC ####[facility] [address] [address]Dr. Deborah Mohan MCH (RBC) [Entitic mass] 26.3 pg Critically low 26.7-34.0 [facility] Comment on above: Performed By: #### C BC ####[facility] [address] [place], [place] [address]Dr. Deborah Mohan MCHC (RBC) [Mass/Vol] 31.0 g/dL Normal 29.9-35.2 [facility] Comment on above: Performed By: #### C BC ####[facility] [address] [place], [place] [address]Dr. Deborah Mohna MCV (RBC) [Entitic vol] 84.9 fL Normal 81.0-99.0 [facility] Comment on above: Performed By: #### C BC ####[facility] [address] [address]Dr. Deborah Mohan MONO # 0.6 103/ul Normal 0.3-0.8 [facility] Comment on above: Performed By: #### C BC ####[facility] [address] [place], [place] [address]Dr. Deborah Mohan Monocytes/100 WBC (Bld) 5.3 % Normal 1.7-12.0 [facility] Comment on above: Performed By: #### C BC ####[facility] [address] [place], [place] [address]Dr. Deborah Mohan NEUT # 8.4 103/ul Critically high 1.4-6.5 [facility] Comment on above: Performed By: #### C BC ####[facility] [address] [address]Dr. Deborah Mohan Neutrophils/100 WBC (Bld) 72.3 % Normal 43.0-75.0 [facility] Comment on above: Performed By: #### C BC ####[facility] [address] [address]Dr. Deborah Mohan Platelet mean volume (Bld) [Entitic vol] 10.1 fL Normal 9.5-13.5 [facility] Comment on above: Performed By: #### C BC ####[facility] [address] [address]Dr. Deborah Mohan PLT 351 103/ul Normal 150-450 [facility] Comment on above: Performed By: #### C BC ####[facility] [address] [address]Dr. Deborah Mohan RBC 3.91 106/ul Critically low 4.20-5.40 [facility] Comment on above: Performed By: #### C BC ####[facility] [address] [address]Dr. Deborah Mohan WBC 11.6 103/ul Critically high 4.0-11.0 [facility] Comment on above: Performed By: #### C BC ####[facility] [address] [address]Dr. Deborah Mohan CTA CHEST WO W CONon [...] 2. Bilateral peripheral fibrosis and/or scarring with lolf-le-gyszxznw groundglass densities. The groundglass densities are slightly decreased compared to the prior scan. 3. Old calcified granulomas in the chest and abdomen. 4. Large hiatal hernia. 5. Moderate diffuse osteopenia. Electronically authenticated by: BERNARDO DENNY Date: 2021-11-29 20:31 Normal [facility] D-DIMERon 11-29-2021 D-DIMER 1.14 mg/L FEU Critically high <=0.59 [facility] Comment on above: Performed By: #### A NAR #### [facility] [address] [address] [address] Deborah Mohan D-DIMER COMMENTS SEE BELOW Normal [facility] Comment on above: Result Comment: Incr [...] hospitalization. Performed By: #### A NARF #### [facility] [address] [address] [address] Deborah Mohan PROF CHEM 8 (BAS METB)on Anion gap [Moles/Vol] 11.7 mmol/L Normal [facility] Comment on above: Performed By: #### B MP, HSTROPN #### [facility] [address] [address] [address] Deborah Mohan Calcium [Mass/Vol] 8.7 mg/dL Normal 8.5-10.1 [facility] Comment on above: Performed By: #### B MP, HSTROPN #### [facility] [address] [place] [address] Dr. Deborah Mohan Chloride [Moles/Vol] 107 mmol/L Normal 98-107 [facility] Comment on above: Performed By: #### B MP, HSTROPN #### [facility] [address] [address] [address] Deborah Mohan CO2 [Moles/Vol] 25.3 mmol/L Normal 21.0-32.0 [facility] Comment on above: Performed By: #### B MP, HSTROPN #### [facility] [address] [place] [address] Dr. Deborah Mohan Creatinine [Mass/Vol] 0.98 mg/dL Normal 0.55-1.02 [facility] Comment on above: Performed By: #### B MP, HSTROPN #### [facility] [address] [address] [address] Deborah Mohan EGFR-AF IVORIAN >60 Normal >=60 [facility] Comment on above: Performed By: #### B MP, HSTROPN #### [facility] [address] [address] [address] Deborah Mohan EGFR-NON AF IVORIAN 56 mL/min/1.73m2 Critically low >=60 [facility] Comment on above: Performed By: #### B MP, HSTROPN #### [facility] [address] [address] [address] Deborah Mohan Glucose [Mass/Vol] 105 mg/dL Normal 74-106 [facility] Comment on above: Performed By: #### B MP, HSTROPN #### [facility] [address] [address] [address] Deborah Mohan Potassium [Moles/Vol] 4.0 mmol/L Normal 3.5-5.1 [facility] Comment on above: Performed By: #### B KYLEE, HSTROPN #### [facility] [address] [address] [address] Deborah Mohan Sodium [Moles/Vol] 140 mmol/L Normal 136-145 [facility] Comment on above: Performed By: #### B MP, HSTROPN #### [facility] [address] [address] [address] Deborah Moahn Urea nitrogen [Mass/Vol] 21.0 mg/dL Critically high 7.0-18.0 [facility] Comment on above: Performed By: #### B KYLEE, HSTROPN #### [facility] [address] [address] [address] Deborah Mohan Urea nitrogen/Creatinine [Mass ratio] 21.4 mg/mg Normal [facility] Comment on above: Performed By: #### B MP, HSTROPN #### [facility] [address] [address] [address] Deborah Mohan TROPONIN, HIGH SENSITIVITYon 11-29-2021 HSTROP 4.5 pg/mL Normal 4.0-51.3 [facility] Comment on above: Result Comment: CUT- OFF POINTS HAVE BEEN ESTABLISHED BASED ON THE FOURTH UNIVERSAL DEFINITIONS OF MYOCARDIAL INFARCTION. THE UPPER REFERENCE LIMIT (URL) OF TROPONIN, DEFINED THE 99TH PERCENTILE OF cTnI DISTRIBUTION IN A REFERENCE POPULATION, HAS BEEN CONFIRMED THE DECISION THRESHOLD FOR [place] DIAGNOSIS. Performed By: #### H STROPN ####[facility] [address] [address]Dr. Deborah Mohan HSTROP 6.0 pg/mL Normal 4.0-51.3 [facility] Comment on above: Result Comment: CUT- OFF POINTS HAVE BEEN ESTABLISHED BASED ON THE FOURTH UNIVERSAL DEFINITIONS OF MYOCARDIAL INFARCTION. THE UPPER REFERENCE LIMIT (URL) OF TROPONIN, DEFINED THE 99TH PERCENTILE OF cTnI DISTRIBUTION IN A REFERENCE POPULATION, HAS BEEN CONFIRMED THE DECISION THRESHOLD FOR NH DIAGNOSIS. Performed By: #### B MP, HSTROPN #### [facility] [address] [place], [place] [address] Dr. Deborah Mohan XR CHEST 1 Von [...] KANDY BARRY Date: 2021-11-29 19:20 Normal [facility] XR LSPINE W_OBLS AND FLEX_EX Ton [...] by: RAUDEL ESTRADA Date: 2021-11-12 07:56 Normal [facility] CALCIUMon 11-11-2021 Calcium [Mass/Vol] 9.0 mg/dL Normal 8.5-10.1 [facility] Comment on above: Performed By: #### A NARF #### [facility] [address] [address] [address] Deborah Mohan CREATININEon 11-11-2021 Creatinine [Mass/Vol] 1.47 mg/dL Critically high 0.55-1.02 [facility] Comment on above: Performed By: #### A NARF #### [facility] [address] [address] [address] Deborah Mohan EGFR-AF IVORIAN 43 mL/min/1.73m2 Critically low >=60 [facility] Comment on above: Performed By: #### A NARF #### [facility] [address] [address] [address] Deborah Mohan EGFR-NON AF IVORIAN 35 mL/min/1.73m2 Critically low >=60 [facility] Comment on above: Performed By: #### A NARF #### [facility] [address] [address] [address] Deborah Mohan Encounters Encounter Date Encounter Type Care Provider Facility Start: 08-01-2023 End: 08-02-2023 ambulatory [facility] Start: 10-05-2022 End: 10-06-2022 ambulatory NARENDRANATH LAKSHMIPATHY . 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 Facility:[facility] Start: 04-07-2022 End: 04-07-2022 ambulatory NATIVIDAD SILVA Facility:[facility] Start: 03-16-2022 ambulatory VERENA TAO [facility] Start: 03-16-2022 End: 03-16-2022 ambulatory NATIVIDAD SILVA Facility:[facility] Start: 03-12-2022 End: 03-13-2022 ambulatory NATIVIDAD SILVA Facility:[facility] Start: 03-09-2022 End: 03-10-2022 ambulatory NATIVIDAD SILVA Facility:[facility] Start: 03-08-2022 End: 03-09-2022 ambulatory DIANE [facility] Start: 03-05-2022 End: 03-06-2022 ambulatory NATIVIDAD [...] 04-01-2018 Emergency department patient visit BRANDON RUSSELL [facility] Start: 12-11-2017 End: 12-11-2017 Emergency department patient visit ROBERT HURLEY Facility:[facility] Procedures Date Procedure Procedure Detail Performing Clinician Start: 05-08-2022 Plain X-ray of left wrist [employer] FILTERER-C Clarita Leigh Work Phone: Start: 05-08-2022 X-ray of left ankle [employer]ISKEY FILTERER -C Clarita Leigh Work Phone: Start: 04-01-2018 IP CONSULT TO ORAL SURGERY BRANDON RUSSELL Payers Date Payer Category Payer Unknown 2022 Medicare [id number] 2022 Self-pay 1961 Medicare [id number] 1953 Unknown [id number] 2.16.84 0.1.922354.3.579.2.593 1953 Unknown [id number] 2.16.84 0.1.544446.3.579.2.593 1953 Unknown [id number] 2.16.84 0.1.039313.3.579.2.593 1953 Unknown [id number] 2.16.84 0.1.812233.3.579.2.593 1953 Unknown [id number] 2.16.84 0.1.226907.3.579.2.593 1953 Unknown [id number] 2.16.84 0.1.897412.3.579.2.593 1953 Unknown [id number] 2.16.84 0.1.974613.3.579.2.593 1953 Unknown [id number] 2.16.84 0.1.343348.3.579.2.593 1953 Unknown [id number] 2.16.84 0.1.326946.3.579.2.593 1953 Unknown [id number] 2.16.84 0.1.318281.3.579.2.593 1953 Unknown [id number] 2.16.84 0.1.979479.3.579.2.593 1953 Unknown [id number] 2.16.84 0.1.320392.3.579.2.593 1953 Unknown [id number] 2.16.84 0.1.933025.3.579.2.593 1953 Unknown [id number] 2.16.84 0.1.004856.3.579.2.593 1953 Unknown [id number] 2.16.84 0.1.607516.3.579.2.593 1953 Unknown [id number] 2.16.84 0.1.587810.3.579.2.593 1953 Unknown [id number] 2.16.84 0.1.549427.3.579.2.593 1953 Unknown [id number] 2.16.84 0.1.411850.3.579.2.593 1953 Unknown [id number] 2.16.84 0.1.186546.3.579.2.593 1953 Unknown [id number] 2.16.84 0.1.936159.3.579.2.593 1953 Unknown [id number] 2.16.84 0.1.284647.3.579.2.593 1953 Unknown [id number] 2.16.84 0.1.200537.3.579.2.593 1953 Unknown [id number] 2.16. 840.1.978073.3.579.2.196 Medicare [id number] Unknown MMO [id number] Unknown [place] BC/BS [id number] Unknown [id number] 2.16.8 40.1.504998.3.579.2.531 Social History Date Type Detail Facility Tobacco smoking stat [facility] Unknown if ever smoked [facility] Work Phone: Start: 1955 Sex Assigned At Female F [facility] Clinical Notes 11-05-2021 to 07-08-2022 Note Date [...] in the clinic in three months. The [facility] 06-24-2022 Note CONSULTATION CONSULTATION DATE: 06/24/2022 [...] at a time, as she works at [employer]. Current medications include Percocet 5/325 daily, diclofenac [...] pending approval for her knee injections. The [facility] 04-08-2022 Note CONSULTATION CONSULTATION DATE: 04/08/2022 [...] three months' time unless otherwise indicated. [facility] 03-16-2022 Note Mildly displaced fra cture of upper sternum. Referral from Natividad Silva NP [facility] 03-16-2022 Note Mildly displaced fra cture of [...] past 36 hour(s)). No follow-ups on file. [facility] 03-16-2022 Note Subjective Patient ID: Mary Vick [...] process. We will see her as needed. [facility] 03-09-2022 Note CONSULTATION CONSULTATION DATE: 03/09/2022 CHIEF [...] and would like to proceed. CC: Natividad Silva, TAYLOR [facility] 03-08-[address] scan from [facility] 01-28-2022 Note CONSULTATION CONSULTATION DATE: [...] and re-evaluation of her bursa injection. [facility] 01-28-2022 Note CONSULTATION PROCEDURE DATE: 01/30/2022 [...] be followed up in the clinic. [facility] 11-12-2021 Note PROCEDURE: XR HIPS B [...] by: RAUDEL ESTRADA Date: 2021-11-12 07:50 [facility] 11-05-2021 Note CONSULTATION PROCEDURE DATE:11/05/2021 PREOPERATIVE [...] will be followed up in the office. [facility] Signed and Approved by: JOEL RAMON . 11/18/2021 16:24:00 [facility] 11-05-2021 Note CONSULTATION CONSULTATION DATE: 11/05/2021 HISTORY [...] time, was working half a day at [employer] and since then has increased to full [...] in three months' time unless otherwise indicated. [facility] Signed and Approved by: JOEL RAMON . 11/18/2021 16:24:00 [facility] note No assessment information availa [facility] Work Phone: Summary Purpose Family History [...] content) DATE CREATED AUTHOR 12/21/2017 [facility] DATE CREATED AUTHOR AUTHOR'S ORGANIZ ATION 05/01/2018 [facility] DATE CREATED AUTHOR AUTHOR'S ORGANIZ ATION 03/21/2022 [facility] DATE CREATED AUTHOR AUTHOR'S ORGANIZ ATION 05/17/2022 [facility] DATE CREATED AUTHOR AUTHOR'S ORGANIZ ATION 10/06/2022 [facility] DATE CREATED AUTHOR AUTHOR'S ORGANIZ ATION 08/03/2023 [facility] Care Teams (unrecognized sec tion and [...] BE BASED ON THE PRIMARY CLINICAL RECORDS. [facility]. provides no warranty or guarantee of the accuracy or completeness of information in this document.
== END 2023-10-10 21:01 | disposition home or self-care (01) ==
LOC: SLEEP 10-11 07:07
PROVIDERS: PCP Nurse Practitioner Family; Visit Provider Nurse Practitioner Family
DX: G47.33 Obstructive sleep apnea (adult) (pediatric) (principal)
CPT/HCPCS: 95810

== ENCOUNTER 2023-10-18 11:17 | Outpatient (OUT) | payer MEDICARE, SELFPAY ==
[2023-10-18 11:35] LABS: Basophils Absolute Auto 0.1 10^3/uL (0.0-0.1); Basophils Percent Auto 0.9 % (0.2-2.0); Eosinophils Absolute Auto 0.2 10^3/uL (0.0-0.7); Eosinophils Percent Auto 2.3 % (0.9-7.0); Hematocrit 33.9 % (36.0-48.0); Hemoglobin 10.2 g/dL (12.0-16.0); Immature Granulocytes Abs Auto 0.04 10^3/uL (0.00-0.03); Immature Granulocytes Pct Auto 0.5 % (0.0-0.5); Lymphocytes Percent Auto 25.2 % (20.5-60.0); Mean Corpuscular HGB Conc 30.1 g/dL (29.9-35.2); Mean Corpuscular Hemoglobin 25.4 pg (26.7-34.0); Mean Corpuscular Volume 84.5 fL (81.0-99.0); Mean Platelet Volume 9.8 fL (9.5-13.5); Monocytes Absolute Auto 0.5 10^3/uL (0.3-0.8); Monocytes Percent Auto 6.8 % (1.7-12.0); Neutrophils Absolute Auto 5.2 10^3/uL (1.4-6.5); Neutrophils Percent Auto 64.3 % (43.0-75.0); Platelet Count 331 10^3/uL (150-450); Red Blood Count 4.01 10^6/uL (4.20-5.40); Red Cell Distribution Width 18.4 % (11.0-15.0)
[2023-10-18 12:54] LABS: Free T4 1.41 ng/dL (0.76-1.46)
[2023-10-18 12:55] LABS: Alanine Aminotransferase 24 U/L (14-59); Albumin Globulin Ratio 0.9; Albumin Level 3.1 g/dL (3.4-5.0); Alkaline Phosphatase 73 U/L (46-116); Anion Gap 10.1; Aspartate Amino Transferase 22 U/L (15-37); BUN Creatinine Ratio 23.3; Bilirubin Total 0.3 mg/dL (0.2-1.0); Calcium 8.3 mg/dL (8.5-10.1); Carbon Dioxide 28.1 mmol/L (21.0-32.0); Chloride 105 mmol/L (98-107); Estimated GFR (African America >60 (>=60); Estimated GFR (Non-African Ame >60 (>=60); Free T3 1.49 pg/mL (2.18-3.98); Globulin 3.6 g/dL; Glucose 82 mg/dL (74-106); Potassium 4.2 mmol/L (3.5-5.1); Sodium 139 mmol/L (136-145); Thyroid Stimulating Hormone 0.861 uIU/mL (0.358-3.740); Total Protein 6.7 g/dL (6.4-8.2)
== END 2023-10-18 11:18 | disposition home or self-care (01) ==
LOC: LAB 11:18
PROVIDERS: PCP Nurse Practitioner Family; Visit Provider Internal Medicine Interventional Cardiology
DX: R00.2 Palpitations (principal); I11.9 Hypertensive heart disease without heart failure
CPT/HCPCS: 36415; 80053; 84439; 84443; 84481; 85025

== ENCOUNTER 2023-10-26 14:24 | Outpatient (OUT) | payer MEDICARE, SELFPAY ==
--- NOTE | 2023-10-26 14:37 | PM.CN ---
Consult Note: HPI Data of Consult Patient: known to practice within the last 3 years Requesting Physician: Shweta Crowley NP Primary Care Provider: POLO SILVA Consult Narrative Reason for consult: f/u Narrative: Mary Vick a pleasant 67 year old female presents for evaluation and management of low back pain. Today rating pain 4/10 in bilateral low back and bilateral hips, ache and stiffness. Pain is worse with all activity. Finding mild benefit from current medication regimen but still having functional difficulty and making it harder to complete tasks at work. Patient reports 100% improvement in pain 2 hours following bilateral L1-2 L2-3 facet medial branch block #1, and bilateral GTB injection providing >50% improvement for 3 months. Patient would like to discuss bilateral L1-2 L2-3 facet medial branch block #2 working towards RFA. cc:: CC: Shweta Crowley NP Review of Systems ROS Status of ROS 10 or more systems reviewed and unremarkable except as noted in history and below Musculoskeletal Reports: back pain PFSH PFSH Medical History Loud snoring ?R06.83 - Snoring (ICD-10) Osteoarthritis ?M19.90 - Unspecified osteoarthritis, unspecified site (ICD-10) Neck pain ?M54.2 - Cervicalgia (ICD-10) Bipolar 1 disorder ?F31.9 - Bipolar disorder, unspecified (ICD-10) Hearing deficit ?H91.90 - Unspecified hearing loss, unspecified ear (ICD-10) Anxiety ?F41.9 - Anxiety disorder, unspecified (ICD-10) Acid reflux ?K21.9 - Gastro-esophageal reflux disease without esophagitis (ICD-10) Obesity ?E66.9 - Obesity, unspecified (ICD-10) Hypothyroid ?E03.9 - Hypothyroidism, unspecified (ICD-10) Pulmonary hypertension ?I27.20 - Pulmonary hypertension, unspecified (ICD-10) Sleep apnea ?G47.30 - Sleep apnea, unspecified (ICD-10) High cholesterol ?E78.00 - Pure hypercholesterolemia, unspecified (ICD-10) Hypertension ?I10 - Essential (primary) hypertension (ICD-10) Surgical History History of mandibular surgery ?Z98.890 - Other specified postprocedural states (ICD-10) Hx of tubal ligation ?Z98.51 - Tubal ligation status (ICD-10) History of appendectomy ?Z90.49 - Acquired absence of other specified parts of digestive tract (ICD-10) History of hysterectomy ?Z90.710 - Acquired absence of both cervix and uterus (ICD-10) Family History Mother Family history of cancer Sister Family history of cancer Social History Within the past year, how often did you have a drink containing alcohol: never Score interpretation: A score less than 3 is consistent with normal alcohol consumption. Smoking status: Former smoker Non-prescribed substance use: denies use Previous occupational history: [employer] Highest level of school completed/degree received: 11th grade Are you now , , , , never or living with a partner: In a typical week, how many times do you talk on the telephone with family, friends, or neighbors: 3 or more times per week How often do you get together with friends or relatives: 3 or more times per week How often do you attend anglican or anglican services: 4 or more times per year Do you belong to any clubs or organizations such as anglican groups unions, [employer] or athletic groups, or school groups: no Total score: 2 Score interpretation: A score of greater than or equal to 2 indicates the lowest level of social isolation. Little interest or pleasure in doing things: not at all Feeling down, depressed, or hopeless: not at all Feel stressed/tense/nervous/anxious/difficulty sleeping: not at all Gender Identity: female Meds Home Medications and Allergies Home Medications ?Medication ?Instructions ?Recorded ?Confirmed ?Type albuterol sulfate 90 mcg/actuation 2 inh inhalation Q6H PRN shortness 10/21/22 09/15/23 History breath activated powder inhaler of breath or wheezing aripiprazole 30 mg tablet (Abilify) 30 mg PO QDAY 10/21/22 09/15/23 History aspirin 81 mg capsule 81 mg PO QDAY 10/21/22 09/15/23 History diclofenac sodium 50 mg 50 mg PO BID 10/21/22 09/15/23 History tablet,delayed release fluoxetine 40 mg capsule (Prozac) 80 mg PO QDAY 10/21/22 09/15/23 History omeprazole 40 mg capsule,delayed 80 mg PO DAILY 10/21/22 09/15/23 History release ropinirole 1 mg tablet 1 mg PO QDAY PRN restless leg(s) 10/21/22 09/15/23 History amitriptyline 25 mg tablet 25 mg PO BEDTIME 09/15/23 09/15/23 History oxycodone-acetaminophen 5 mg-325 See Rx Instructions PO DAILY PRN 09/15/23 09/15/23 History mg tablet (Endocet) pain ibfvpwqeli-rkidwuvnuigps-papbuhtd 1 tab PO Q4H PRN Migraine Headache 09/17/23 Rx 50 mg-325 mg-40 mg tablet #30 tabs levothyroxine 50 mcg tablet 50 mcg PO QDAY #30 tabs 09/17/23 09/15/23 Rx (Euthyrox) lisinopril 20 mg tablet 20 mg PO QD #30 tabs 09/17/23 Rx oxycodone-acetaminophen 5 mg-325 1 tab PO DAILY PRN pain #30 tabs 09/20/23 Rx mg tablet (Percocet) oxycodone-acetaminophen 5 mg-325 1 tab PO DAILY PRN pain #30 tabs 10/18/23 Rx mg tablet (Percocet) Allergies Allergy/AdvReac Type Severity Reaction Status Date / Time sumatriptan [From Imitrex] Allergy Severe Verified 07/12/23 08:01 Exam Constitutional Documenting provider has reviewed patient's vital signs: yes Common normals: no apparent distress, oriented x3, healthy appearing, alert and well nourished General appearance: cooperative [facility] Common normals: normocephalic, hearing grossly normal bilaterally and moist oral mucous membranes Head and scalp: normocephalic Eye Common normals: PERRL Pupil: PERRL Neck & C-Spine Common normals: full ROM General: normal visual inspection Chest Common normals: inspection of chest normal Respiratory Common normals: normal respiratory effort, no retractions and no use of accessory muscles Back & Pelvis Lumbar spine/lower back: ROM limited, pain with ROM and straight leg raise negative bilaterally Other: predominately axial low back pain no radiculopathy Extremity Common normals: normal to inspection and full ROM Other: mild pain over bilateral GTB mild pain with left internal log roll Neuro Common normals: oriented x3, CN's II-XII intact bilaterally, moves all extremities, no focal motor deficits, no sensory deficits noted and deep tendon reflexes 2+ bilaterally Sensorium/orientation: alert Gait (neuro): antalgic Motor exam: strength 5/5 throughout and no movement abnormalities noted Psych Common normals: mental status grossly normal, thought process normal, cooperative, affect normal, speech normal and activity/motor behavior normal Speech: normal speech Thought process: normal thought process Results Additional Findings Additional findings: If on a controlled substance or opioids, I have checked an [place] report on this patient and there are no aberrancies noted in the prescribing history.??If on a controlled substance or opioid a drug screen was completed and reviewed within the last year, and if there has not been a drug screen completed we ordered one today to monitor higher risk, state monitored pain medication use. As part of providing excellent, safe, comprehensive care, the following was completed at our patient's visit: 1. A medication reconciliation and review to ensure accurate knowledge of current/active medications, including asking our patients to inform us about any cxiy-tyb-vdmmuux medications or herbal remedies/nutritional supplements/alternative remedies. 2. A review to specifically ensure our patients have had annual screening for screening for depression, screening for tobacco use, and screening for unhealthy alcohol use. For concerning screenings had a discussion with the patient, provided patient education, and recommended follow-up with primary care provider when appropriate. If patient noted with a risk of falling, they received education on strength, gait, and balance training to prevent future risk of falling. Assessment and Plan Assessment and Plan (1) Lumbar spondylosis: (2) Greater trochanteric bursitis of both hips: (3) Encounter for long-term opiate analgesic use: (4) Thoracic spondylosis: (5) Muscle spasm: Plan bilateral L1-2 L2-3 facet medial branch block #2 working towards RFA continue current medications, tolerating well without side effects, continues to find functional improvement f/u with Dr Vicente, will likely repeat bilateral GT injections for bursitis
== END 2023-10-26 14:25 | disposition home or self-care (01) ==
LOC: PM 14:24
PROVIDERS: PCP Nurse Practitioner Family; Visit Provider Nurse Practitioner
DX: M47.816 Spondylosis without myelopathy or radiculopathy, lumbar region (principal); M70.62 Trochanteric bursitis, left hip; M70.61 Trochanteric bursitis, right hip; Z79.891 Long term (current) use of opiate analgesic; M47.814 Spondylosis without myelopathy or radiculopathy, thoracic region; M62.838 Other muscle spasm
CPT/HCPCS: G0463

== ENCOUNTER 2023-10-31 21:58 | Outpatient (OUT) | payer MEDICARE, SELFPAY | END 2023-10-31 21:59 | disposition home or self-care (01) | LOC: SLEEP 21:58 | PROVIDERS: PCP Nurse Practitioner Family; Visit Provider Nurse Practitioner Family | DX: G47.33 Obstructive sleep apnea (adult) (pediatric) (principal) | CPT/HCPCS: 95811 ==

== ENCOUNTER 2023-11-08 08:22 | Day surgery (SDC) | payer MEDICARE, SELFPAY ==
[2023-11-08 08:52] VITALS: BP 158/70; PULSE 52; TEMP 36.2; O2SAT 99
[2023-11-08 09:38] VITALS: BP 178/79; BP 180/79; PULSE 50; O2SAT 98; O2SAT 99
[2023-11-08] MEDS: BUPIVACAINE HCL 0.25% PF 25 MG/10 ML VIAL 6 ML INJ (09:44)
--- NOTE | 2023-11-08 09:50 | P.ON_ITS ---
Date of procedure: 11/08/23 Pre-op diagnosis: Lumbar spondylosis Post-op diagnosis: same as pre-op Procedure: Bilateral Lumbar 1/2, 2/3 medial branch block Preop diagnosis includes pain secondary to spondylosis, Postop diagnosis same Under fluoroscopic guidance Solution injected: 2milliliters Marcaine 0.25% Anesthesia :none Immediate complications none Time out process compliant After informed consent obtained from the patient placed in the Prone proposition . area was prepped and draped in a sterile fashion using betadine .25 gauge spinal needle inserted over each of the above mentioned target areas . [place] were directed towards the target under fluoroscopic guidance . after encountering each of the targets , no indication of intravascular intraneuronal or intrathecal needle tip placement. Then 0 .5 to 1 Milliliter was injected at each level. [place] removed postoperatively. patient transferred to recovery in stable condition to be discharged home after meeting criteria Anesthesia: Local Surgeon: Varun Vicente Condition: stable
== END 2023-11-08 09:50 | disposition home or self-care (01) ==
LOC: SURGOUT 08:22
PROVIDERS: PCP Nurse Practitioner Family; Visit Provider Anesthesiology Pain Medicine
DX: M47.816 Spondylosis without myelopathy or radiculopathy, lumbar region (principal)
CPT/HCPCS: 64493; 64494; J0665

== ENCOUNTER 2023-11-09 08:18 | Outpatient (OUT) | payer MEDICARE, SELFPAY ==
--- NOTE | 2023-11-09 08:19 | PM.CN ---
Consult Note: HPI Data of Consult Patient: known to practice within the last 3 years Requesting Physician: Shweta Crowley NP Primary Care Provider: POLO SILVA Consult Narrative Reason for consult: f/u Narrative: Mary Vick a pleasant 67 year old female presents for evaluation and management of low back pain. Today rating pain 4/10 in bilateral low back and bilateral hips, ache and stiffness. Pain increases to 8/10, worse with all activity. Finding mild benefit from current medication regimen but still having functional difficulty and making it harder to complete tasks at work. Patient reports >80% improvement in pain 2 hours following bilateral L1-2 L2-3 facet medial branch block #2, and bilateral GTB injection providing >50% improvement for 3 months. cc:: CC: Shweta Crowley NP Review of Systems ROS Status of ROS 10 or more systems reviewed and unremarkable except as noted in history and below Musculoskeletal Reports: back pain PFSH PFSH Medical History Migraine ?G43.909 - Migraine, unspecified, not intractable, without status migrainosus (ICD-10) Loud snoring ?R06.83 - Snoring (ICD-10) Osteoarthritis ?M19.90 - Unspecified osteoarthritis, unspecified site (ICD-10) Neck pain ?M54.2 - Cervicalgia (ICD-10) Bipolar 1 disorder ?F31.9 - Bipolar disorder, unspecified (ICD-10) Hearing deficit ?H91.90 - Unspecified hearing loss, unspecified ear (ICD-10) Anxiety ?F41.9 - Anxiety disorder, unspecified (ICD-10) Acid reflux ?K21.9 - Gastro-esophageal reflux disease without esophagitis (ICD-10) Obesity ?E66.9 - Obesity, unspecified (ICD-10) Hypothyroid ?E03.9 - Hypothyroidism, unspecified (ICD-10) Pulmonary hypertension ?I27.20 - Pulmonary hypertension, unspecified (ICD-10) Sleep apnea ?G47.30 - Sleep apnea, unspecified (ICD-10) High cholesterol ?E78.00 - Pure hypercholesterolemia, unspecified (ICD-10) Hypertension ?I10 - Essential (primary) hypertension (ICD-10) Surgical History History of mandibular surgery ?Z98.890 - Other specified postprocedural states (ICD-10) Hx of tubal ligation ?Z98.51 - Tubal ligation status (ICD-10) History of appendectomy ?Z90.49 - Acquired absence of other specified parts of digestive tract (ICD-10) History of hysterectomy ?Z90.710 - Acquired absence of both cervix and uterus (ICD-10) Family History Mother Family history of cancer Sister Family history of cancer Social History Within the past year, how often did you have a drink containing alcohol: never Score interpretation: A score less than 3 is consistent with normal alcohol consumption. Smoking status: Former smoker Non-prescribed substance use: denies use Previous occupational history: [employer] Highest level of school completed/degree received: 11th grade Are you now , , , , never or living with a partner: In a typical week, how many times do you talk on the telephone with family, friends, or neighbors: 3 or more times per week How often do you get together with friends or relatives: 3 or more times per week How often do you attend sabianism or orthodoxy services: 4 or more times per year Do you belong to any clubs or organizations such as sabianism groups unions, [employer] or athletic groups, or school groups: no Total score: 2 Score interpretation: A score of greater than or equal to 2 indicates the lowest level of social isolation. Little interest or pleasure in doing things: not at all Feeling down, depressed, or hopeless: not at all Feel stressed/tense/nervous/anxious/difficulty sleeping: not at all Gender Identity: female Meds Home Medications and Allergies Home Medications ?Medication ?Instructions ?Recorded ?Confirmed ?Type albuterol sulfate 90 mcg/actuation 2 inh inhalation Q6H PRN shortness 10/21/22 11/08/23 History breath activated powder inhaler of breath or wheezing aripiprazole 30 mg tablet (Abilify) 30 mg PO QDAY 10/21/22 11/08/23 History diclofenac sodium 50 mg 50 mg PO BID 10/21/22 11/08/23 History tablet,delayed release fluoxetine 40 mg capsule (Prozac) 80 mg PO QDAY 10/21/22 11/08/23 History omeprazole 40 mg capsule,delayed 80 mg PO DAILY 10/21/22 11/08/23 History release ropinirole 1 mg tablet 2 mg PO QDAY PRN restless leg(s) 10/21/22 11/08/23 History amitriptyline 25 mg tablet 25 mg PO BEDTIME 09/15/23 11/08/23 History oxycodone-acetaminophen 5 mg-325 See Rx Instructions PO DAILY PRN 09/15/23 11/08/23 History mg tablet (Endocet) pain okrpifzofe-uavivpykksllo-lubjaeac 1 tab PO Q4H PRN Migraine Headache 09/17/23 11/08/23 Rx 50 mg-325 mg-40 mg tablet #30 tabs levothyroxine 50 mcg tablet 50 mcg PO QDAY #30 tabs 09/17/23 11/08/23 Rx (Euthyrox) Allergies Allergy/AdvReac Type Severity Reaction Status Date / Time sumatriptan [From Imitrex] Allergy Severe Verified 07/12/23 08:01 Exam Constitutional Documenting provider has reviewed patient's vital signs: yes Common normals: no apparent distress, oriented x3, healthy appearing, alert and well nourished General appearance: cooperative HENNV Common normals: normocephalic, hearing grossly normal bilaterally and moist oral mucous membranes Head and scalp: normocephalic Eye Common normals: PERRL Pupil: PERRL Neck & C-Spine Common normals: full ROM General: normal visual inspection Chest Common normals: inspection of chest normal Respiratory Common normals: normal respiratory effort, no retractions and no use of accessory muscles Back & Pelvis Lumbar spine/lower back: ROM limited, pain with ROM and straight leg raise negative bilaterally Other: predominately axial low back pain no radiculopathy facet loading positive bilaterally Extremity Common normals: normal to inspection and full ROM Other: mild pain over bilateral GTB mild pain with left internal log roll Neuro Common normals: oriented x3, CN's II-XII intact bilaterally, moves all extremities, no focal motor deficits, no sensory deficits noted and deep tendon reflexes 2+ bilaterally Sensorium/orientation: alert Gait (neuro): antalgic Motor exam: strength 5/5 throughout and no movement abnormalities noted Psych Common normals: mental status grossly normal, thought process normal, cooperative, affect normal, speech normal and activity/motor behavior normal Speech: normal speech Thought process: normal thought process Results Additional Findings Additional findings: If on a controlled substance or opioids, I have checked an [place] report on this patient and there are no aberrancies noted in the prescribing history.??If on a controlled substance or opioid a drug screen was completed and reviewed within the last year, and if there has not been a drug screen completed we ordered one today to monitor higher risk, state monitored pain medication use. As part of providing excellent, safe, comprehensive care, the following was completed at our patient's visit: 1. A medication reconciliation and review to ensure accurate knowledge of current/active medications, including asking our patients to inform us about any [id number] medications or herbal remedies/nutritional supplements/alternative remedies. 2. A review to specifically ensure our patients have had annual screening for screening for depression, screening for tobacco use, and screening for unhealthy alcohol use. For concerning screenings had a discussion with the patient, provided patient education, and recommended follow-up with primary care provider when appropriate. If patient noted with a risk of falling, they received education on strength, gait, and balance training to prevent future risk of falling. Assessment and Plan Assessment and Plan (1) Lumbar spondylosis: Assessment and Plan: The patient has had over 3 months of moderate to severe low back pain with functional impairment and inadequate response to conservative care including NSAIDS (unless there are contraindication such as concurrent blood thinners), multiple oral or topical pain medications, and home exercise program/physical therapy.? Patient has completed >6 weeks of guided home exercise program and/or formal physical therapy program without relief of their symptoms.? I have reviewed the imaging of the lumbar spine and no red flags were identified.? ? We discussed the risks and benefits of the procedure with the patient, and we are NOT planning on using sedation as outlined in the guidelines from Medicare unless there is a documented reason that sedation would be strongly recommended.?? ?The procedure will be completed with fluoroscopic guidance.? (2) Greater trochanteric bursitis of both hips: (3) Encounter for long-term opiate analgesic use: Assessment and Plan: I feel these medications are improving the patient's quality of life and allow them to tolerate activities of daily living as well as participate in recreational activity.? The patient does not report intolerable side effects. The patient is NOT opioid naive and non-pharmacologic and non-opioid treatment has failed to significantly relieve the patient's pain and improve functionality. The patient has a diagnosis that is related to a somatic or visceral pain etiology. ? ?? I reviewed with the patient the potential risks and side effects with the use of? opioid medications including but not limited to respiratory depression,? sedation, and even . I verified the patient has access to naloxone should? these effects occur. I advised the patient to avoid the use of any other? sedation substances including alcohol, THC, and benzodiazepines while? taking opioid medications due to the risk of compounding side effects and? detrimental outcomes. I reviewed the [facility], pain treatment agreement, urine? drug screen, and opioid start talking forms. The patient was advised to let? their family know they had Naloxone in case they would need to administer? the medication.? ?? A drug screen was completed within the last year, and no aberrancies were noted regarding their use of controlled substances. The patient understands they are subject to the terms and conditions of the pain contract that they have signed. ? ?? I have checked an [place] report on this patient today and there are no aberrancies noted in the prescribing history.? (4) Thoracic spondylosis: (5) Muscle spasm: Plan left and right L1-2 L2-3 facet medial branch thermal RFA with 10mg PO valium 30-60mins prior to procedure due to anxiety, to be completed under fluoroscopy continue current medications, tolerating well without side effects, continues to find functional improvement f/u 1 month after RFA
--- OUTSIDE RECORDS SUMMARY | 2023-11-09 08:40 | XMS_ITS ---
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 04-07-2022 BASO # 0.1 103/ul Normal 0.0-0.1 [facility] Comment on above: Performed By: #### A NARF #### [facility] [address] [place] [address] [address] Deborah Mohan Basophils/100 WBC (Bld) 0.8 % Normal 0.2-2.0 [facility] Comment on above: Performed By: #### A NARF #### [facility] [address] [place] [address] [address] Deborah Mohan EO # 0.3 103/ul Normal 0.0-0.7 [facility] Comment on above: Performed By: #### A NARF #### [facility] [address] [place] [address] [address] Deborah Mohan Eosinophils/100 WBC (Bld) 2.6 % Normal 0.9-7.0 [facility] Comment on above: Performed By: #### A NARF #### [facility] [address] [place] [address] [address] Deborah Mohan Erythrocyte distribution width (RBC) [Ratio] 19.9 % Critically high 11.0-15.0 [facility] Comment on above: Performed By: #### A NARF #### [facility] [address] [place] [address] [address] Deborah Mohan Hematocrit (Bld) [Volume fraction] 28.8 % Critically low 36.0-48.0 [facility] Comment on above: Performed By: #### A NARF #### [facility] [address] [place] [address] Dr. Deborah Mohan Hemoglobin (Bld) [Mass/Vol] 8.9 g/dL Critically low 12.0-16.0 [facility] Comment on above: Performed By: #### A NARF #### [facility] [address] [place] [address] Dr. Deborah Mohan IG # 0.07 10e3/ul Critically high 0.00-0.03 [facility] Comment on above: Performed By: #### A NARF #### [facility] [address] [place] [address] Dr. Deborah Mohan IG % 0.7 % Critically high 0.0-0.5 [facility] Comment on above: Performed By: #### A NARF #### [facility] [address] [place] [address] Dr. Deborah Mohan LYMPH # 1.9 103/ul Normal 1.2-3.8 [facility] Comment on above: Performed By: #### A NARF #### [facility] [address] [place] [address] Dr. Deborah Mohan Lymphocytes/100 WBC (Bld) 18.2 % Critically low 20.5-60.0 [facility] Comment on above: Performed By: #### A NARF #### [facility] [address] [place] [address] Dr. Deborha Mohan MANUAL DIFF REQ NO Normal [facility] Comment on above: Performed By: #### A NARF #### [facility] [address] [place] [address] Dr. Deborah Mohan MCH (RBC) [Entitic mass] 25.3 pg Critically low 26.7-34.0 [facility] Comment on above: Performed By: #### A NARF #### [facility] [address] [place] [address] [address] Deborah Mohan MCHC (RBC) [Mass/Vol] 30.9 g/dL Normal 29.9-35.2 [facility] Comment on above: Performed By: #### A NARF #### [facility] [address] [place] [address] [address] Deborah Mohan MCV (RBC) [Entitic vol] 81.8 fL Normal 81.0-99.0 [facility] Comment on above: Performed By: #### A NARF #### [facility] [address] [place] [address] [address] Deborah Mohan MONO # 0.7 103/ul Normal 0.3-0.8 [facility] Comment on above: Performed By: #### A NARF #### [facility] [address] [place] [address] [address] Deborah Mohan Monocytes/100 WBC (Bld) 7.1 % Normal 1.7-12.0 [facility] Comment on above: Performed By: #### A NARF #### [facility] [address] [place] [address] Dr. Deborah Mohan NEUT # 7.4 103/ul Critically high 1.4-6.5 [facility] Comment on above: Performed By: #### A NARF #### [facility] [address] [place] [address] Dr. Deborah Mohan Neutrophils/100 WBC (Bld) 70.6 % Normal 43.0-75.0 [facility] Comment on above: Performed By: #### A NARF #### [facility] [address] [place] [address] [address] Deborah Mohan Platelet mean volume (Bld) [Entitic vol] 9.7 fL Normal 9.5-13.5 [facility] Comment on above: Performed By: #### A NARF #### [facility] [address] [place] [address] Dr. Deborah Mohan PLT 398 103/ul Normal 150-450 [facility] Comment on above: Performed By: #### A NARF #### [facility] [address] [place] [address] [address] Deborah Mohan RBC 3.52 106/ul Critically low 4.20-5.40 [facility] Comment on above: Performed By: #### A NARF #### [facility] [address] [place] [address] [address] Deborah Mohan WBC 10.5 103/ul Normal 4.0-11.0 [facility] Comment on above: Performed By: #### A NARF #### [facility] [address] [place] [address] [address] Deborah Mohan PROF 14(COMP METB)on 022 Albumin [Mass/Vol] 3.2 g/dL Critically low 3.4-5.0 [facility] Comment on above: Performed By: #### H DENIS, CMP ####[facility] [address] [place] [address]DrAnkur Mohan Albumin/Globulin [Mass ratio] 0.9 {ratio} Normal [facility] Comment on above: Performed By: #### H DENIS, CMP ####[facility] [address] [place] [address]DrAnkur Mohan ALP [Catalytic activity/Vol] 89 U/L Normal 46-116 [facility] Comment on above: Performed By: #### H DENIS, CMP ####[facility] [address] [place] [address]DrAnkur Mohan ALT [Catalytic activity/Vol] 17 U/L Normal 14-59 [facility] Comment on above: Performed By: #### H DENIS, CMP ####[facility] [address] [place] [address]DrAnkur Mohan Anion gap [Moles/Vol] 11.2 mmol/L Normal [facility] Comment on above: Performed By: #### H DENIS, CMP ####[facility] [address] [place] [address]DrAnkur Mohan AST [Catalytic activity/Vol] 14 U/L Critically low 15-37 [facility] Comment on above: Performed By: #### H DENIS, CMP ####[facility] [address] [place] [address]Dr. Deborah Mohan Bilirubin [Mass/Vol] 0.2 mg/dL Normal 0.2-1.0 [facility] Comment on above: Performed By: #### H DENIS, CMP ####[facility] [address] [place], [place] [address]Dr. Deborah Mohan Calcium [Mass/Vol] 9.1 mg/dL Normal 8.5-10.[address] [facility] Comment on above: Performed By: #### H DENIS, CMP ####[facility] [address] [place], [place] [address]Dr. Deborah Mohan Chloride [Moles/Vol] 104 mmol/L Normal 98-107 [facility] Comment on above: Performed By: #### H DENIS, CMP ####[facility] [address] [place], [place] [address]Dr. Deborah Mohan CO2 [Moles/Vol] 24.8 mmol/L Normal 21.0-32.0 [facility] Comment on above: Performed By: #### H DENIS, CMP ####[facility] [address] [place], [place] [address]Dr. Deborah Mohan Creatinine [Mass/Vol] 1.21 mg/dL Critically high 0.55-1.02 [facility] Comment on above: Performed By: #### H DENIS, CMP ####[facility] [address] [place] [address]Dr. Deborah Mohan EGFR-AF HONDURAN 54 mL/min/1.73m2 Critically low >=60 [facility] Comment on above: Performed By: #### H DENIS, CMP ####[facility] [address] [place], [place] [address]Dr. Deborah Mohan EGFR-NON AF HONDURAN 44 mL/min/1.73m2 Critically low >=60 [facility] Comment on above: Performed By: #### H DENIS, CMP ####[facility] [address] [place] [address]Dr. Deborah Mohan Globulin (S) [Mass/Vol] 3.7 g/dL Normal [facility] Comment on above: Performed By: #### H DENIS, CMP ####[facility] [address] [place], [place] [address]Dr. Deborah Mohan Glucose [Mass/Vol] 118 mg/dL Critically high 74-106 [facility] Comment on above: Performed By: #### H DENIS, CMP ####[facility] [address] [place], [place] [address]Dr. Deborah Mohan Potassium [Moles/Vol] 4.0 mmol/L Normal 3.5-5.1 [facility] Comment on above: Performed By: #### H DENIS, CMP ####[facility] [address] [place], [place] [address]Dr. Deborah Mohan Protein [Mass/Vol] 6.9 g/dL Normal 6.4-8.[address] [facility] Comment on above: Performed By: #### H DENIS, CMP ####[facility] [address] [place], [place] [address]Dr. Deborah Mohan Sodium [Moles/Vol] 136 mmol/L Normal 136-[address] [facility] Comment on above: Performed By: #### H DENIS, CMP ####[facility] [address] [place], [place] [address]Dr. Deborah Mohan Urea nitrogen [Mass/Vol] 28.0 mg/dL Critically high 7.0-18.0 [facility] Comment on above: Performed By: #### H DENIS, CMP ####[facility] [address] [place], [place] [address]Dr. Deborah Mohan Urea nitrogen/Creatinine [Mass ratio] 23.1 mg/mg Normal [facility] Comment on above: Performed By: #### H DENIS, CMP ####[facility] [address] [place], [place] [address]Dr. Deborah Mohan TROPONIN, HIGH SENSITIVITYon 04-07-2022 HSTROP 5.9 pg/mL Normal 4.0-51.3 [facility] Comment on above: Result Comment: CUT- OFF POINTS HAVE BEEN ESTABLISHED BASED ON THE FOURTH UNIVERSAL DEFINITIONS OF MYOCARDIAL INFARCTION. THE UPPER REFERENCE LIMIT (URL) OF TROPONIN, DEFINED THE 99TH PERCENTILE OF cTnI DISTRIBUTION IN A REFERENCE POPULATION, HAS BEEN CONFIRMED THE DECISION THRESHOLD FOR [place] DIAGNOSIS. Performed By: #### H STROPN, CMP ####[facility] [address] [place], [place] [address]MkDr. Deborah Mohan XR CHEST 1 Von 04-07-2022 [...] ANDERSON ALMANZAR Date: 2022-04-07 03:11 Normal [facility] HEMOGLOBINon 03-12-2022 Hemoglobin (Bld) [Mass/Vol] 9.2 g/dL Critically low 12.0-16.0 [facility] Comment on above: Performed By: #### A NARF #### [facility] [address] [place] [address] [address] Deborah Mohan ANTI NEUTROPHIL CYTOPLASMIC AB (ANCA) PRon 03-09-2022 Anti-MPO Antibodies <0.2 Normal 0.0-0.9 [facility] Comment on above: Result Comment: Perf ormed at: BN Performed By: #### B GARDEN CONSULTANT, HSTROPN, CMP #### [facility] [address] [place], [place] [address] Dr. Deborah Mohan Anti-PR3 Antibodies <0.2 Normal 0.0-0.9 [facility] Comment on above: Result Comment: Perf ormed at: BN Performed By: #### B GARDEN CONSULTANT, HSTROPN, CMP #### [facility] [address] [place] [address] [address] Deborah Mohan Atypical pANCA 1:160 Critically high Neg:<1:20 [facility] Comment on above: Result Comment: The atypical pANCA pattern has been observed in a significant percentage of patients with ulcerative colitis, primary sclerosing cholangitis and autoimmune hepatitis. Performed at: CB Performed By: #### B GARDEN CONSULTANT, HSTROPN, CMP #### [facility] [address] [place] [address] [address] Deborah Mohan Cytoplasmic (C-ANCA) <1:20 Normal Neg:<1:20 [facility] Comment on above: Result Comment: Perf ormed at: CB Performed By: #### B GARDEN CONSULTANT, HSTROPN, CMP #### [facility] [address] [place] [address] Dr. Deborah Mohan Perinuclear (P-ANCA) <1:20 Normal Neg:<1:20 [facility] Comment on above: Result Comment: The presence of positive fluorescence exhibiting P-ANCA or C-ANCA patterns alone is not specific for the diagnosis of Marlin's Granulomatosis (WG) or microscopic polyangiitis. Decisions about treatment should not be based solely on ANCA IFA results. The [employer] Consensus recommends follow up testing of positive sera with both KY-3 and MPO-ANCA enzyme immunoassays. As many as 5% serum samples are positive only by EIA. Ref. AM J Clin Pathol 1999;111:507-513. Performed at: CB Performed By: #### B GARDEN CONSULTANT, HSTROPN, CMP #### [facility] [address] [place] [address] Dr. Deborah Mohan ANTISCLERODERMA ABon 022 Antiscleroderma-70 Antibodies <0.2 Normal 0.0-0.9 [facility] Comment on above: Performed By: #### A NARF #### [facility] [address] [place] [address] CHEST WO CONon [...] incidental findings, as described above. Normal [facility] CYCLIC CITRULLINATED PEPTIDE AB (CCP)on 03-09-2022 CCP Antibodies IgG/IgA 6 units Normal 0-19 [facility] Comment on above: Result Comment: Nega tive <20 Weak positive 20 - 39 Moderate positive 40 - 59 Strong positive >59 Performed By: #### B GARDEN CONSULTANT, HSTROPN, CMP #### [facility] [address] [place] [address] [address] Deborah Mohan IGG SUBCLASSES (1-4) AND TOT Kade 03-09-2022 IgG, Subclass 1 448 mg/dL Normal 248-810 [facility] Comment on above: Performed By: #### B GARDEN CONSULTANT, HSTROPN, CMP #### [facility] [address] [place], [place] [address] Dr. Deborah Mohan IgG, Subclass 2 253 mg/dL Normal 130-555 [facility] Comment on above: Performed By: #### B GARDEN CONSULTANT, HSTROPN, CMP #### [facility] [address] [place], [place] [address] Dr. Deborah Mohan IgG, Subclass 3 95 mg/dL Normal 15-102 [facility] Comment on above: Performed By: #### B GARDEN CONSULTANT, HSTROPN, CMP #### [facility] [address] [place], [place] [address] Dr. Deborah Mohan IgG, Subclass 4 10 mg/dL Normal 2-96 [facility] Comment on above: Performed By: #### B GARDEN CONSULTANT, HSTROPN, CMP #### [facility] [address] [place], [place] [address] Dr. Deborah Mohan Immunoglobulin G, Qn, Serum 658 mg/dL Normal 586-1602 [facility] Comment on above: Performed By: #### B GARDEN CONSULTANT, HSTROPN, CMP #### [facility] [address] [place] [address] [address] Deborah Mohan IMMUNOGLOBULIN E, TOTALon Immunoglobulin E, Total 5 IU/mL Critically low 6-495 [facility] Comment on above: Performed By: #### I GETOT ####[facility] [address] [place] [address]Dr. Deborah Mohan MICHELL EIA W/REFLEX 5 BIOMARKER Son 03-08-2022 MICHELL Direct Negative Normal Negative [facility] Comment on above: Performed By: #### A NARF #### [facility] [address] [place] [address] [address] Deborah Mohan ANGIOTENSION-CONVERTING ENZY ME (FRANCESCO)on 03-08-2022 FRANCESCO 32 U/L Normal 14-82 [facility] Comment on above: Performed By: #### A NGIOC ####[facility] [address] [place] [address]Dr. Deborah Mohan ANTIGLOMERULAR BASEMENT MEMB ROMMEL ABSon 03-08-2022 Anti-GBM Antibodies <0.2 Normal 0.0-0.9 [facility] Comment on above: Performed By: #### A GBM #### [facility] [address] [place] [address] [address] Deborah Mohan IMMUNOGLOBULIN IGA QUANTITIA VEon 03-06-2022 Immunoglobulin A, Qn, Serum 229 mg/dL Normal 87-352 [facility] Comment on above: Performed By: #### A NARF #### [facility] [address] [place] [address] [address] Deborah Mohan IMMUNOGLOBULIN IGM QUANTITAT IVEon 03-06-2022 Immunoglobulin M, Qn, Serum 83 mg/dL Normal 26-217 [facility] Comment on above: Performed By: #### B GARDEN CONSULTANT, HSTROPN, CMP #### [facility] [address] [place] [address] [address] Deborah Mohan RHEUMATOID FACTORon 03-06-20 RA Latex Turbid. 10.9 IU/mL Normal <14.0 [facility] Comment on above: Performed By: #### R F ####[facility] [address] [place] [id number] Mohan CREATININEon 03-05-2022 Creatinine [Mass/Vol] 1.38 mg/dL Critically high 0.55-1.02 [facility] Comment on above: Performed By: #### C MELVINA ####[facility] [address] [place] [address]Dr. Deborah Mohan EGFR-AF HONDURAN 46 mL/min/1.73m2 Critically low >=60 [facility] Comment on above: Performed By: #### C MELVINA ####[facility] [address] [place] [address]Dr. Deborah Mohan EGFR-NON AF HONDURAN 38 mL/min/1.73m2 Critically low >=60 [facility] Comment on above: Performed By: #### C MELVINA ####[facility] [address] [place] [address]DrAnkur Mohan SED RATE WESTERGREN 2021 SED RATE 92 mm/hr Critically high <=30 [facility] Comment on above: Performed By: #### B GARDEN CONSULTANT, HSTROPN, CMP #### [facility] [address] [place] [address] [address] Deborah Mohan XR DEXA BONE DENSITYon [...] by: ROBERT CONDON Date: 2022-03-05 16:56 Normal [facility] XR CHEST 1 Von 03-01-2022 XR [...] by: ROBERT NOVAK Date: 2022-02-28 22:27 Normal [facility] XR KNEE LUANA 4V or >on [...] RAUDEL ESTRADA Date: 2022-01-29 11:09 Normal [facility] CBC AUTO DIFFon 11-29-2021 BASO # 0.1 103/ul Normal 0.0-0.1 [facility] Comment on above: Performed By: #### C BC ####[facility] [address] [place] [id number]. Deborah Mohan Basophils/100 WBC (Bld) 0.8 % Normal 0.2-2.0 [facility] Comment on above: Performed By: #### C BC ####[facility] [address] [place], [place] [address]VvAnkur Mohan EO # 0.3 103/ul Normal 0.0-0.7 [facility] Comment on above: Performed By: #### C BC ####[facility] [address] [place], [place] [address]Dg. Deborah Mohan Eosinophils/100 WBC (Bld) 2.2 % Normal 0.9-7.0 [facility] Comment on above: Performed By: #### C BC ####[facility] [address] [place] [address]Dr. Deborah Mohan Erythrocyte distribution width (RBC) [Ratio] 21.2 % Critically high 11.0-15.0 [facility] Comment on above: Performed By: #### C BC ####[facility] [address] [place], [place] [address]Dr. Deborah Mohan Hematocrit (Bld) [Volume fraction] 33.2 % Critically low 36.0-48.0 [facility] Comment on above: Performed By: #### C BC ####[facility] [address] [place], [place] [address]Dr. Deborah Mohan Hemoglobin (Bld) [Mass/Vol] 10.3 g/dL Critically low 12.0-16.0 [facility] Comment on above: Performed By: #### C BC ####[facility] [address] [place], [place] [address]Dr. Deborah Mohan IG # 0.11 10e3/ul Critically high 0.00-0.03 [facility] Comment on above: Performed By: #### C BC ####[facility] [address] [place], [place] [address]Dr. Deborah Mohan IG % 0.9 % Critically high 0.0-0.5 [facility] Comment on above: Performed By: #### C BC ####[facility] [address] [place], [place] [address]Dr. Deborah Mohan LYMPH # 2.2 103/ul Normal 1.2-3.8 [facility] Comment on above: Performed By: #### C BC ####[facility] [address] [place], [place] [address]Dr. Deborah Mohan Lymphocytes/100 WBC (Bld) 18.5 % Critically low 20.5-60.0 [facility] Comment on above: Performed By: #### C BC ####[facility] [address] [place], [place] [address]Dr. Deborah Mohan MANUAL DIFF REQ NO Normal [facility] Comment on above: Performed By: #### C BC ####[facility] [address] [place] [address]Dr. Deborah Mohan MCH (RBC) [Entitic mass] 26.3 pg Critically low 26.7-34.0 [facility] Comment on above: Performed By: #### C BC ####[facility] [address] [address]Dr. Deborah Mohan MCHC (RBC) [Mass/Vol] 31.0 g/dL Normal 29.9-35.2 [facility] Comment on above: Performed By: #### C BC ####[facility] [address] [place], [place] [address]Dr. Deborah Mohan MCV (RBC) [Entitic vol] 84.9 fL Normal 81.0-99.0 [facility] Comment on above: Performed By: #### C BC ####[facility] [address] [place], [place] [address]Dr. Deborah Mohan MONO # 0.6 103/ul Normal 0.3-0.8 [facility] Comment on above: Performed By: #### C BC ####[facility] J[address] [place], [place] [address]Dr. Deborah Mohan Monocytes/100 WBC (Bld) 5.3 % Normal 1.7-12.0 [facility] Comment on above: Performed By: #### C BC ####[facility] [address] [place], [place] [address]Dr. Deborah Mohan NEUT # 8.4 103/ul Critically high 1.4-6.5 [facility] Comment on above: Performed By: #### C BC ####[facility] [address] [place], [place] [address]Dr. Deborah Mohan Neutrophils/100 WBC (Bld) 72.3 % Normal 43.0-75.0 [facility] Comment on above: Performed By: #### C BC ####[facility] [address] [place], [place] [address]Dr. Deborah Mohan Platelet mean volume (Bld) [Entitic vol] 10.1 fL Normal 9.5-13.5 [facility] Comment on above: Performed By: #### C BC ####[facility] [address] [place], [place] [address]Jp. Deborah Mohan PLT 351 103/ul Normal 150-450 [facility] Comment on above: Performed By: #### C BC ####[facility] [address] [place], [place] [address]Ms. Deborah Mohan RBC 3.91 106/ul Critically low 4.20-5.40 [facility] Comment on above: Performed By: #### C BC ####[facility] [address] [place], [place] [address]Tx. Deborah Mohan WBC 11.6 103/ul Critically high 4.0-11.0 [facility] Comment on above: Performed By: #### C BC ####[facility] [address] [place], [place] [address]Lc. Deborah Mohan CTA CHEST WO W CONon [...] 2. Bilateral peripheral fibrosis and/or scarring with vrpp-wq-xppfwqxw groundglass densities. The groundglass densities are slightly decreased compared to the prior scan. 3. Old calcified granulomas in the chest and abdomen. 4. Large hiatal hernia. 5. Moderate diffuse osteopenia. Electronically authenticated by: BERNARDO DENNY Date: 2021-11-29 20:31 Normal [facility] D-DIMERon 11-29-2021 D-DIMER 1.14 mg/L FEU Critically high <=0.[address] [facility] Comment on above: Performed By: #### A NARF #### [facility] [address] [address] [address] Deborah Mohan D-DIMER COMMENTS SEE BELOW Normal [facility] Comment on above: Result Comment: Incr [...] hospitalization. Performed By: #### A NARF #### [facility] [address] [address] [address] Deborah Mohan PROF CHEM 8 (BAS METB)on Anion gap [Moles/Vol] 11.7 mmol/L Normal [facility] Comment on above: Performed By: #### B MP, HSTROPN #### [facility] [address] [address] [address] Deborah Mohan Calcium [Mass/Vol] 8.7 mg/dL Normal 8.5-10.[address] [facility] Comment on above: Performed By: #### B MP, HSTROPN #### [facility] [address] [address] [address] Deborah Mohan Chloride [Moles/Vol] 107 mmol/L Normal 98-107 [facility] Comment on above: Performed By: #### B MP, HSTROPN #### [facility] [address] [address] [address] Deborah Mohan CO2 [Moles/Vol] 25.3 mmol/L Normal 21.0-32.0 [facility] Comment on above: Performed By: #### B MP, HSTROPN #### [facility] [address] [place] [address] Dr. Deborah Mohan Creatinine [Mass/Vol] 0.98 mg/dL Normal 0.55-1.02 [facility] Comment on above: Performed By: #### B MP, HSTROPN #### [facility] [address] [address] [address] Deborah Mohan EGFR-AF HONDURAN >60 Normal >=60 [facility] Comment on above: Performed By: #### B MP, HSTROPN #### [facility] [address] [address] [address] Deborah Mohan EGFR-NON AF HONDURAN 56 mL/min/1.73m2 Critically low >=60 [facility] Comment on above: Performed By: #### B MP, HSTROPN #### [facility] [address] [address] [address] Deborah Mohan Glucose [Mass/Vol] 105 mg/dL Normal 74-[address] [facility] Comment on above: Performed By: #### B MP, HSTROPN #### [facility] [address] [address] [address] Deborah Mohan Potassium [Moles/Vol] 4.0 mmol/L Normal 3.5-5.1 [facility] Comment on above: Performed By: #### B MP, HSTROPN #### [facility] [address] [address] [address] Deborah Mohan Sodium [Moles/Vol] 140 mmol/L Normal 136-[address] [facility] Comment on above: Performed By: #### B MP, HSTROPN #### [facility] [address] [address] [address] Deborah Mohan Urea nitrogen [Mass/Vol] 21.0 mg/dL Critically high 7.0-18.0 [facility] Comment on above: Performed By: #### B MP, HSTROPN #### [facility] [address] [address] [address] Deborah Mohan Urea nitrogen/Creatinine [Mass ratio] 21.4 mg/mg Normal [facility] Comment on above: Performed By: #### B KYLEE, HSTROPN #### [facility] [address] [place] [address] Dr. Deborah Mohan TROPONIN, HIGH SENSITIVITYon 11-29-2021 HSTROP 6.0 pg/mL Normal 4.0-51.3 [facility] Comment on above: Result Comment: CUT- OFF POINTS HAVE BEEN ESTABLISHED BASED ON THE FOURTH UNIVERSAL DEFINITIONS OF MYOCARDIAL INFARCTION. THE UPPER REFERENCE LIMIT (URL) OF TROPONIN, DEFINED THE 99TH PERCENTILE OF cTnI DISTRIBUTION IN A REFERENCE POPULATION, HAS BEEN CONFIRMED THE DECISION THRESHOLD FOR [place] DIAGNOSIS. Performed By: #### B KYLEE, HSTROPN #### [facility] [address] [place] [address] Dr. Deborah Mohan HSTROP 4.5 pg/mL Normal 4.0-51.3 [facility] Comment on above: Result Comment: CUT- OFF POINTS HAVE BEEN ESTABLISHED BASED ON THE FOURTH UNIVERSAL DEFINITIONS OF MYOCARDIAL INFARCTION. THE UPPER REFERENCE LIMIT (URL) OF TROPONIN, DEFINED THE 99TH PERCENTILE OF cTnI DISTRIBUTION IN A REFERENCE POPULATION, HAS BEEN CONFIRMED THE DECISION THRESHOLD FOR [place] DIAGNOSIS. Performed By: #### H STROPN ####[facility] [address] [address]Dr. Deborah Mohan XR CHEST 1 Von 11-29-2021 [...] by: KANDY BARRY Date: 2021-11-29 19:20 Normal [facility] XR LSPINE W_OBLS AND FLEX_EX [...] RAUDEL ESTRADA Date: 2021-11-12 07:56 Normal [facility] CALCIUMon 11-11-2021 Calcium [Mass/Vol] 9.0 mg/dL Normal 8.5-10.[address] [facility] Comment on above: Performed By: #### A NARF #### [facility] [address] [address] [address] Deborah Mohan CREATININEon 11-11-2021 Creatinine [Mass/Vol] 1.47 mg/dL Critically high 0.55-1.02 [facility] Comment on above: Performed By: #### A NARF #### [facility] [address] [address] [address] Deborah Mohan EGFR-AF HONDURAN 43 mL/min/1.73m2 Critically low >=60 [facility] Comment on above: Performed By: #### A NARF #### [facility] [address] [place], [place] [address] Dr. Deborah Mohan EGFR-NON AF HONDURAN 35 mL/min/1.73m2 Critically low >=60 [facility] Comment on above: Performed By: #### A NARF #### [facility] [address] [place], [place] [address] Dr. Deborah Mohan Social History Date Type Detail Facility Start: 1955 Sex Assigned At Female F [facility] Tobacco smoking stat us NVIS Unknown if ever smoked [facility] Work Phone: Clinical Notes 11-05-2021 to 10-18-2023 Note Date & Type Note Facility 10-18-2023 Note [facility] Cardiology Clinic Note Chief Complaint: New patient here to establish care. Ref from Dr. Townsend for abnormal EKG. She also wore 7 day Holter monitor, and says she did not work while wearing this. She works at [employer] and says it's very fast paced. States she drinks a 5 Hour Energy shot almost every day. She was admitted to [facility] for migraine recently and was found to have abnormal EKG. Recently has noticed a twinge of chest pain. C/o DAI, palpitations, and lightheadedness. HPI: Mary Vick is a 68 y.o. female With a history of hypertension and hypothyroidism who presents due to an abnormal Holter monitor She was admitted to the [facility] for migraine; a monitor revealed both SVT and bradycardia arrhythmias She complains of significant lightheadedness, dizziness. She has exertional shortness of breath. She has a chest twinge that resolved spontaneously. No orthopnea, no paroxysmal external dyspnea, no lower extremity edema. She drinks excessive caffeinated beverages throughout the day including at least one 5-hour energy shot and 3-4 coffees. Cardiology ROS: Review of Systems Cardiovascular: Positive for chest pain ( twinge ), dyspnea on exertion and palpitations. Respiratory: Positive for cough. Musculoskeletal: Positive for back pain. Neurological: Positive for headaches and light-headedness. Allergic/Immunologic: Positive for environmental allergies. All other systems reviewed and are negative. Past Medical History She has a past medical history of HTN (hypertension). Surgical History She has a past surgical history that includes Hysterectomy. Social History She reports that she quit smoking about 4 years ago. Her smoking use included cigarettes. She has never used smokeless tobacco. She reports that she does not drink alcohol and does not use drugs. Family History Family History Problem Relation Name Age of Onset Cancer Mother Cancer Sister Allergies Sumatriptan Medications Current Outpatient Medications: amLODIPine (Norvasc) 10 mg tablet, Take 1 tablet every day by oral route with meals for 90 days., Disp: , Rfl: ARIPiprazole (Abilify) 20 mg tablet, Take 1 tablet every day by oral route., Disp: , Rfl: calcium carbonate-vitamin D3 500 mg-5 mcg (200 unit) tablet, Take 1 tablet by mouth., Disp: , Rfl: calcium citrate-vitamin D2 315 mg-5 mcg (200 unit) tablet, bone meal-vitamin D2 tablet Take by oral route., Disp: , Rfl: FLUoxetine (PROzac) 20 mg tablet, Take 1 tablet 4 times a day by oral route., Disp: , Rfl: ibuprofen 800 mg tablet, Take 1 tablet by mouth every 6 (six) hours if needed., Disp: , Rfl: levothyroxine (Synthroid, Levoxyl) 100 mcg tablet, Take 100 mcg by mouth in the morning., Disp: , Rfl: magnesium oxide (Mag-Ox) 400 mg (241.3 mg magnesium) tablet, Take 2 tablets twice a day by oral route with meals for 90 days., Disp: , Rfl: metoprolol succinate XL (Toprol-XL) 100 mg 24 hr tablet, Take 100 mg by mouth in the morning., Disp: , Rfl: omeprazole (PriLOSEC) [address] capsule, Take 10 mg by mouth in the morning., Disp: , Rfl: tiZANidine (Zanaflex) 4 mg tablet, Take 1 tablet every day by oral route at bedtime., Disp: , Rfl: Last Recorded Vitals BP 158/74 (BP Location: Right arm, Patient Position: Sitting) Pulse 55 Ht 1.575 m (5' 2 ) Wt 74.8 kg (165 lb) SpO2 98% BMI 30.18 kg/m??? Physical Examination: GENERAL: alert and oriented x3, well developed, in no acute distress. HEAD: atraumatic, normocephalic. EYES: FRANCHESCA, EOMI. NECK: trachea midline, no JVD present, no carotid bruits present. CARDIAC: S1, S2 present. RRR. No murmur, rubs, or gallops. RESPIRATORY: CTAB, no increased effort of breathing, no rales, rhonchi, or wheezing. ABDOMEN: soft, nontender, nondistended. EXTREMITIES: no lower extremity edema, peripheral pulses are 2+ bilaterally. No rash/skin discoloration present. NEURO: strength/sensation equal and symmetric in bilateral upper and lower extremities. PSYCH: appropriate mood, affect, and judgement. INVESTIGATIONS: Event monitor 10/04/2023: Predominant rhythm is sinus with average heart rate of 60 bpm Fastest heart rate of 192 bpm SVT and/rate of 43 bpm 31 PVCs No atrial fibrillation Episodes of bradycardia without obvious P waves consider junctional rhythm Echocardiogram 07/06/2021: Global left ventricular systolic function is normal; EF is 67%. Grade 1 diastolic dysfunction. Mild aortic and tricuspid regurgitation. Normal right-sided pressures. Moderate left atrial dilatation. Electrocardiogram 09/14/2022: Sinus rhythm, sinus arrhythmia ECG 10/18/2023 Normal sinus rhythm Assessment: Palpitations: abnormal EKG Supraventricular tachycardia on Holter Bradycardia; possible junctional rhythm Mild aortic and tricuspid regurgitation Essential hypertension - uncontrolled Chest pain Exertional shortness of breath Excessive caffeine Plan: Routine labs (more content not included)... [facility] 07-08-2022 Note CONSULTATION PROCEDURE DATE: 07/08/2022 HISTORY [...] in the clinic in three months. [facility] 06-24-2022 Note CONSULTATION CONSULTATION DATE: 06/24/2022 [...] at a time, as she works at [employer]. Current medications include Percocet 5/325 daily, diclofenac [...] pending approval for her knee injections. [facility] 04-08-2022 Note CONSULTATION CONSULTATION DATE: 04/08/2022 [...] three months' time unless otherwise indicated. [facility] 03-09-2022 Note CONSULTATION CONSULTATION DATE: 03/09/2022 [...] to proceed. CC: Natividad Silva CNP [facility] 01-28-2022 Note CONSULTATION CONSULTATION DATE: [...] and re-evaluation of her bursa injection. [facility] 01-28-2022 Note CONSULTATION PROCEDURE DATE: 01/30/2022 [...] be followed up in the clinic. [facility] 11-12-2021 Note PROCEDURE: XR HIPS B [...] authenticated by: RAUDEL ESTRADA Date: 2021-11-12 07:50 [facility] 11-05-2021 Note CONSULTATION PROCEDURE DATE:11/05/2021 PREOPERATIVE DIAGNOSIS: [...] will be followed up in the office. [facility] Signed and Approved by: JOEL RAMON . 11/18/2021 16:24:00 [facility] 11-05-2021 Note CONSULTATION CONSULTATION DATE: [...] time, was working half a day at [employer] and since then has increased to full [...] in three months' time unless otherwise indicated. [facility] Signed and Approved by: JOEL RAMON . 11/18/2021 16:24:00 [facility] Evaluation note No assessment information availa [facility] Work Phone: Summary Purpose Family History No [...] section and content) DATE CREATED AUTHOR 12/21/2017 [facility] DATE CREATED AUTHOR AUTHOR'S ORGANIZ ATION 05/01/2018 [facility] DATE CREATED AUTHOR AUTHOR'S ORGANIZ ATION 05/17/2022 [facility] DATE CREATED AUTHOR AUTHOR'S ORGANIZ ATION 10/06/2022 [facility] DATE CREATED AUTHOR AUTHOR'S ORGANIZ ATION 08/03/2023 [facility] DATE CREATED AUTHOR AUTHOR'S ENE ATION 10/18/2023 [facility] Care Teams (unrecognized sec tion and [...] BE BASED ON THE PRIMARY CLINICAL RECORDS. [employer] provides no warranty or guarantee of the accuracy or completeness of information in this document.
== END 2023-11-09 08:19 | disposition home or self-care (01) ==
LOC: PM 08:19
PROVIDERS: PCP Nurse Practitioner Family; Visit Provider Nurse Practitioner
DX: M47.816 Spondylosis without myelopathy or radiculopathy, lumbar region (principal); M70.62 Trochanteric bursitis, left hip; M70.61 Trochanteric bursitis, right hip; Z79.891 Long term (current) use of opiate analgesic; M47.814 Spondylosis without myelopathy or radiculopathy, thoracic region; M62.838 Other muscle spasm
CPT/HCPCS: G0463

== ENCOUNTER 2023-11-21 06:50 | Outpatient (OUT) | payer MEDICARE, SELFPAY ==
--- NOTE | 2023-11-21 | NM_ITS ---
Patient Name: MELANIE TOMPKINS MR#: [id number] : 1955 Exam Date: 11/21/2023 Ordering Doctor: DR Miriam Saenz M.D. RADIOLOGY REPORT PROCEDURE: NM ARLYN PERF SPECT REST STR COMPARISON: None. INDICATIONS: CHEST PAIN, UNSPECIFIED TECHNIQUE: Exam Description: Stress/Rest one day protocol gated SPECT Rest Imagin.0 mCi Tc-99m Cardiolite IV on 11/21/2023 Stress Imaging 32.0 mCi Tc-99m Cardiolite IV on 11/21/2023 Exercise Protocol: 0.4 mg Lexiscan given IV Heart Rate (bpm): Rest: 49 Max: 78 PMHR: 52 Blood Pressure: Rest: 110/76 Max: 160/76 Symptoms: Rest and peak stress ECG findings were pending and the exercise portion of the study was pending per attending physician Dr. PETERS . For more details please see separate cardiac stress test report. FINDINGS: QUALITY OF STUDY: Excellent. PERFUSION DEFECT: None. LOCATION: N/A SIZE: N/A. SEVERITY: N/A. TYPE: N/A. WALL MOTION: Normal. LV SIZE: Normal. 116 mL. TID / TCD: None; 0.9 LVEF: Normal. Calculated EF 73%. SUMMARY: Myocardial perfusion imaging study is NORMAL. CONCLUSION: 1. Normal nuclear medicine myocardial perfusion scan. Dictated by: Willi Wheat M.D. on 11/22/2023 at 14:08 Approved by: Willi Wheat M.D. on 11/22/2023 at 14:10
--- NOTE | 2023-11-21 | PCN_ITS ---
CARDIAC STRESS TEST Requesting Physician: Procedure Date: 11/21/2023 This is a Lexiscan stress test with myocardial perfusion imaging, performed at the [facility] on 11/21/2023. Informed consent was obtained. The patient was attached to electrocardiographic monitoring. Baseline vital signs were obtained. An intravenous line was secured. Lexiscan 0.4 mg was infused intravenously, followed by administration of Cardiolite. The patient then went on to obtain myocardial perfusion imaging. Resting heart rate was 49 BPM and maximum heart rate was 78 BPM. Resting blood pressure was 110/76 and maximum blood pressure was 160/76. Resting ECG showed marked sinus bradycardia at a heart rate of 48 BPM. There were no ischemic ST changes seen. Following infusion of Lexiscan, there was evidence of sinus rhythm without ischemic ST changes. No arrhythmias were noted. SUMMARY OF THE FINDINGS: 1. No evidence of ischemic EKG changes seen following infusion of Lexiscan. 2. Myocardial perfusion images will be reported separately. [facility]
--- OUTSIDE RECORDS SUMMARY | 2023-11-21 06:53 | XMS_ITS | CCD ---
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 nitrogen/Creatinine [Mass ratio] 23.1 mg/mg Normal [facility] Comment on above: Performed By: #### H DENIS, CMP ####[facility] [address] [id number]. Deborah Mohan TROPONIN, HIGH SENSITIVITYon 04-07-2022 HSTROP 5.9 pg/mL Normal 4.0-51.[address] [facility] Comment on above: Result Comment: CUT- OFF POINTS HAVE BEEN ESTABLISHED BASED ON THE FOURTH UNIVERSAL DEFINITIONS OF MYOCARDIAL INFARCTION. THE UPPER REFERENCE LIMIT (URL) OF TROPONIN, DEFINED THE 99TH PERCENTILE OF cTnI DISTRIBUTION IN A REFERENCE POPULATION, HAS BEEN CONFIRMED THE DECISION THRESHOLD FOR SC DIAGNOSIS. Performed By: #### H DENIS, CMP ####[facility] [address] [id number]. Deborah Mohan XR CHEST 1 Von 04-07-2022 [...] ANDERSON ALMANZAR Date: 2022-04-07 03:11 Normal [facility] HEMOGLOBINon 03-12-2022 Hemoglobin (Bld) [Mass/Vol] 9.2 g/dL Critically low 12.0-16.[address] [facility] Comment on above: Performed By: #### A NARF #### [facility] [address] [address] [address] Deborah Mohan ANTI NEUTROPHIL CYTOPLASMIC AB (ANCA) PRon 03-09-2022 Anti-MPO Antibodies <0.2 Normal 0.0-0.9 [facility] Comment on above: Result Comment: Perf ormed at: BN Performed By: #### B DRYWALLER, HSTROPN, CMP #### [facility] [address] [place] [address] Dr. Deborah Mohan Anti-PR3 Antibodies <0.2 Normal 0.0-0.9 [facility] Comment on above: Result Comment: Perf ormed at: BN Performed By: #### B DRYWALLER, HSTROPN, CMP #### [facility] [address] [place] [address] Dr. Deborah Mohan Atypical pANCA 1:160 Critically high Neg:<1:20 [facility] Comment on above: Result Comment: The atypical pANCA pattern has been observed in a significant percentage of patients with ulcerative colitis, primary sclerosing cholangitis and autoimmune hepatitis. Performed at: CB Performed By: #### B DRYWALLER, HSTROPN, CMP #### [facility] [address] [address] [address] Deborah Mohan Cytoplasmic (C-ANCA) <1:20 Normal Neg:<1:20 [facility] Comment on above: Result Comment: Perf ormed at: CB Performed By: #### B DRYWALLER, HSTROPN, CMP #### [facility] [address] [place] [address] Dr. Deborah Mohan Perinuclear (P-ANCA) <1:20 Normal Neg:<1:[address] [facility] Comment on above: Result Comment: The presence of positive fluorescence exhibiting P-ANCA or C-ANCA patterns alone is not specific for the diagnosis of Marlin's Granulomatosis (WG) or microscopic polyangiitis. Decisions about treatment should not be based solely on ANCA IFA results. The International ANCA [employer] Consensus recommends follow up testing of positive sera with both SC-3 and MPO-ANCA enzyme immunoassays. As many as 5% serum samples are positive only by EIA. Ref. AM J Clin Pathol 1999;111:507-513. Performed at: CB Performed By: #### B DRYWALLER, HSTROPN, CMP #### [facility] [address] [place], [place] [address] Dr. Deborah Mohan ANTISCLERODERMA ABon 022 Antiscleroderma-70 Antibodies <0.2 Normal 0.0-0.9 [facility] Comment on above: Performed By: #### A NARF #### [facility] [address] [place], [place] [address] CHEST WO CONon [...] incidental findings, as described above. Normal [facility] CYCLIC CITRULLINATED PEPTIDE AB (CCP)on 03-09-2022 CCP Antibodies IgG/IgA 6 units Normal 0-19 [facility] Comment on above: Result Comment: Nega tive <20 Weak positive 20 - 39 Moderate positive 40 - 59 Strong positive >59 Performed By: #### B DRYWALLER, HSTROPN, CMP #### [facility] [address] [place], [place] [address] Dr. Deborah Mohan IGG SUBCLASSES (1-4) AND TOT Kade 03-09-2022 IgG, Subclass 1 448 mg/dL Normal 248-810 [facility] Comment on above: Performed By: #### B DRYWALLER, HSTROPN, CMP #### [facility] [address] [place], [place] [address] Dr. Deborah Mohan IgG, Subclass 2 253 mg/dL Normal 130-555 [facility] Comment on above: Performed By: #### B DRYWALLER, HSTROPN, CMP #### [facility] [address] [place], [place] [address] Dr. Deborah Mohan IgG, Subclass 3 95 mg/dL Normal 15-102 [facility] Comment on above: Performed By: #### B DRYWALLER, HSTROPN, CMP #### [facility] [address] [address] [address] Deborah Mohan IgG, Subclass 4 10 mg/dL Normal 2-96 [facility] Comment on above: Performed By: #### B DRYWALLER, HSTROPN, CMP #### [facility] [address] [address] [address] Deborah Mohan Immunoglobulin G, Qn, Serum 658 mg/dL Normal 586-[address] [facility] Comment on above: Performed By: #### B DRYWALLER, HSTROPN, CMP #### [facility] [address] [address] [address] Deborah Mohan IMMUNOGLOBULIN E, TOTALon Immunoglobulin E, Total 5 IU/mL Critically low 6-[address] [facility] Comment on above: Performed By: #### I GETOT ####[facility] [address] [place], [place] [address]CuDr. Deborah Mohan MICHELL EIA W/REFLEX 5 BIOMARKER Son 03-08-2022 MICHELL Direct Negative Normal Negative [facility] Comment on above: Performed By: #### A NARF #### [facility] [address] [place], [place] [address] Dr. Deborah Mohan ANGIOTENSION-CONVERTING ENZY ME (FRANCESCO)on 03-08-2022 FRANCESCO 32 U/L Normal 14-[address] [facility] Comment on above: Performed By: #### A NGIOC ####[facility] [address] [place], [place] [address]GoDr. Deborah Mohan ANTIGLOMERULAR BASEMENT MEMB ROMMEL ABSon 03-08-2022 Anti-GBM Antibodies <0.2 Normal 0.0-0.9 [facility] Comment on above: Performed By: #### A GBM #### [facility] [address] [address] [address] Deborah Mohan IMMUNOGLOBULIN IGA QUANTITIA VEon 03-06-2022 Immunoglobulin A, Qn, Serum 229 mg/dL Normal 87-[address] [facility] Comment on above: Performed By: #### A NARF #### [facility] [address] [address] [address] Deborah Mohan IMMUNOGLOBULIN IGM QUANTITAT IVEon 03-06-2022 Immunoglobulin M, Qn, Serum 83 mg/dL Normal 26-[address] [facility] Comment on above: Performed By: #### B DRYWALLER, HSTROPN, CMP #### [facility] [address] [address] [address] Deborah Mohan RHEUMATOID FACTORon 03-06-20 RA Latex Turbid. 10.9 IU/mL Normal <14.0 [facility] Comment on above: Performed By: #### R F ####[facility] [address] [address]Dr. Deborah Mohan CREATININEon 03-05-2022 Creatinine [Mass/Vol] 1.38 mg/dL Critically high 0.55-1.[address] [facility] Comment on above: Performed By: #### C MELVINA ####[facility] [address] [address]Dr. Deborah Mohan EGFR-AF CROATIAN 46 mL/min/1.73m2 Critically low >=60 [facility] Comment on above: Performed By: #### C MELVINA ####[facility] [address] [address]Dr. Deborah Mohan EGFR-NON AF CROATIAN 38 mL/min/1.73m2 Critically low >=60 [facility] Comment on above: Performed By: #### C MELVINA ####[facility] [address] [address]Dr. Deborah Mohan SED RATE WESTERGRENon 2021 SED RATE 92 mm/hr Critically high <=30 [facility] Comment on above: Performed By: #### B DRYWALLER, HSTROPN, CMP #### [facility] [address] [place] [address] Dr. Deborah Mohan XR DEXA BONE DENSITYon [...] CONDON Date: 2022-03-05 16:[address] [facility] XR CHEST 1 Von 03-01-2022 XR [...] NOVAK Date: 2022-02-28 22:[address] [facility] XR KNEE LUANA 4V or >on [...] RAUDEL ESTRADA Date: 2022-01-29 11:09 Normal [facility] CBC AUTO DIFFon 11-29-2021 BASO # 0.1 103/ul Normal 0.0-0.1 [facility] Comment on above: Performed By: #### C BC ####[facility] [address] [id number]. Deborah Mohan Basophils/100 WBC (Bld) 0.8 % Normal 0.2-2.0 [facility] Comment on above: Performed By: #### C BC ####[facility] [address] [address]Dr. Deborah Mohan EO # 0.3 103/ul Normal 0.0-0.7 [facility] Comment on above: Performed By: #### C BC ####[facility] [address] [address]Dr. Deborah Mohan Eosinophils/100 WBC (Bld) 2.2 % Normal 0.9-7.0 [facility] Comment on above: Performed By: #### C BC ####[facility] [address] [place], [place] [address]Dr. Deborah Mohan Erythrocyte distribution width (RBC) [Ratio] 21.2 % Critically high 11.0-15.0 [facility] Comment on above: Performed By: #### C BC ####[facility] [address] [place], [place] [address]Dr. Deborah Mohan Hematocrit (Bld) [Volume fraction] 33.2 % Critically low 36.0-48.0 [facility] Comment on above: Performed By: #### C BC ####[facility] [address] [place], [place] [address]Dr. Deborah Mohan Hemoglobin (Bld) [Mass/Vol] 10.3 g/dL Critically low 12.0-16.0 [facility] Comment on above: Performed By: #### C BC ####[facility] [address] [place], [place] [address]Dr. Deborah Mohan IG # 0.11 10e3/ul Critically high 0.00-0.03 [facility] Comment on above: Performed By: #### C BC ####[facility] [address] [id number] Deborah Mohan IG % 0.9 % Critically high 0.0-0.5 [facility] Comment on above: Performed By: #### C BC ####[facility] [address] [phone]. Deborah Marques LYMPH # 2.2 103/ul Normal 1.2-3.[address] [facility] Comment on above: Performed By: #### C BC ####[facility] [address] [phone]. Ann-Mariemich Mohan Lymphocytes/100 WBC (Bld) 18.5 % Critically low 20.5-60.[address] [facility] Comment on above: Performed By: #### C BC ####[facility] [address] [address]DrAnkur Ann-Mariemich Mohan MANUAL DIFF REQ NO Normal [facility] Comment on above: Performed By: #### C BC ####[facility] [address] [phone]. Deborah Marques MCH (RBC) [Entitic mass] 26.3 pg Critically low 26.7-34.[address] [facility] Comment on above: Performed By: #### C BC ####[facility] [address] [phone]. Deborah Marques MCHC (RBC) [Mass/Vol] 31.0 g/dL Normal 29.9-35.[address] [facility] Comment on above: Performed By: #### C BC ####[facility] [address] [phone] Deborah Marques MCV (RBC) [Entitic vol] 84.9 fL Normal 81.0-99.[address] [facility] Comment on above: Performed By: #### C BC ####[facility] [address] [phone] Mohan MONO # 0.6 103/ul Normal 0.3-0.8 [facility] Comment on above: Performed By: #### C BC ####[facility] [address] [phone]. Deborah Mohan Monocytes/100 WBC (Bld) 5.3 % Normal 1.7-12.0 [facility] Comment on above: Performed By: #### C BC ####[facility] [address] [id number]. Deborah Mohan NEUT # 8.4 103/ul Critically high 1.4-6.5 [facility] Comment on above: Performed By: #### C BC ####[facility] [address] [address]Dr. Deborah Mohan Neutrophils/100 WBC (Bld) 72.3 % Normal 43.0-75.[address] [facility] Comment on above: Performed By: #### C BC ####[facility] [address] [address]Dr. Deborah Mohan Platelet mean volume (Bld) [Entitic vol] 10.1 fL Normal 9.5-13.5 [facility] Comment on above: Performed By: #### C BC ####[facility] [address] [address]Dr. Deborah Mohan PLT 351 103/ul Normal 150-450 [facility] Comment on above: Performed By: #### C BC ####[facility] [address] [address]Dr. Deborah Mohan RBC 3.91 106/ul Critically low 4.20-5.40 [facility] Comment on above: Performed By: #### C BC ####[facility] [address] [phone]. Deborah Mohan WBC 11.6 103/ul Critically high 4.0-11.0 [facility] Comment on above: Performed By: #### C BC ####[facility] [address] [phone]. Deborah Mohan CTA CHEST WO W CONon [...] 2. Bilateral peripheral fibrosis and/or scarring with hhin-ep-dadarkax groundglass densities. The groundglass densities are slightly decreased compared to the prior scan. 3. Old calcified granulomas in the chest and abdomen. 4. Large hiatal hernia. 5. Moderate diffuse osteopenia. Electronically authenticated by: BERNARDO DENNY Date: 2021-11-29 20:[address] [facility] D-DIMERon 11-29-2021 D-DIMER 1.14 mg/L FEU Critically high <=0.59 [facility] Comment on above: Performed By: #### A NARF #### [facility] [address] [place] [address] Dr. Deborah Mohan D-DIMER COMMENTS SEE BELOW Normal [facility] Comment on above: Result Comment: Incr [...] hospitalization. Performed By: #### A NARF #### [facility] [address] [place] [address] Dr. Deborah Mohan PROF CHEM 8 (BAS METB)on Anion gap [Moles/Vol] 11.7 mmol/L Normal [facility] Comment on above: Performed By: #### B KYLEE, HSTROPN #### [facility] [address] [place] [address] Dr. Deborah Mohan Calcium [Mass/Vol] 8.7 mg/dL Normal 8.5-10.1 [facility] Comment on above: Performed By: #### B KYLEE, HSTROPN #### [facility] [address] [place] [address] Dr. Deborah Mohan Chloride [Moles/Vol] 107 mmol/L Normal 98-107 [facility] Comment on above: Performed By: #### B KYLEE, HSTROPN #### [facility] [address] [place] [address] Dr. Deborah Mohan CO2 [Moles/Vol] 25.3 mmol/L Normal 21.0-32.0 [facility] Comment on above: Performed By: #### B KYLEE, HSTROPN #### [facility] [address] [place] [address] Dr. Deborah Mohan Creatinine [Mass/Vol] 0.98 mg/dL Normal 0.55-1.[address] [facility] Comment on above: Performed By: #### B KYLEE, HSTROPN #### [facility] [address] [address] [address] Deborah Mohan EGFR-AF CROATIAN >60 Normal >=60 [facility] Comment on above: Performed By: #### B MP, HSTROPN #### [facility] [address] [address] [address] Deborah Mohan EGFR-NON AF CROATIAN 56 mL/min/1.73m2 Critically low >=60 [facility] Comment on above: Performed By: #### B MP, HSTROPN #### [facility] [address] [address] [address] Deborah Mohan Glucose [Mass/Vol] 105 mg/dL Normal 74-106 [facility] Comment on above: Performed By: #### B MP, HSTROPN #### [facility] [address] [address] [address] Deborah Mohan Potassium [Moles/Vol] 4.0 mmol/L Normal 3.5-5.[address] [facility] Comment on above: Performed By: #### B MP, HSTROPN #### [facility] [address] [address] [address] Deborah Mohan Sodium [Moles/Vol] 140 mmol/L Normal 136-145 [facility] Comment on above: Performed By: #### B MP, HSTROPN #### [facility] [address] [address] [address] Deborah Mohan Urea nitrogen [Mass/Vol] 21.0 mg/dL Critically high 7.0-18.[address] [facility] Comment on above: Performed By: #### B MP, HSTROPN #### [facility] [address] [address] [address] Deborah Mohan Urea nitrogen/Creatinine [Mass ratio] 21.4 mg/mg Normal [facility] Comment on above: Performed By: #### B MP, HSTROPN #### [facility] [address] [address] [address] Deborah Mohan TROPONIN, HIGH SENSITIVITYon 11-29-2021 HSTROP 4.5 pg/mL Normal 4.0-51.[address] [facility] Comment on above: Result Comment: CUT- OFF POINTS HAVE BEEN ESTABLISHED BASED ON THE FOURTH UNIVERSAL DEFINITIONS OF MYOCARDIAL INFARCTION. THE UPPER REFERENCE LIMIT (URL) OF TROPONIN, DEFINED THE 99TH PERCENTILE OF cTnI DISTRIBUTION IN A REFERENCE POPULATION, HAS BEEN CONFIRMED THE DECISION THRESHOLD FOR SC DIAGNOSIS. Performed By: #### H STROPN ####[facility] [address] [place], [place] [address]Dr. Deborah Mohan HSTROP 6.0 pg/mL Normal 4.0-51.[address] [facility] Comment on above: Result Comment: CUT- OFF POINTS HAVE BEEN ESTABLISHED BASED ON THE FOURTH UNIVERSAL DEFINITIONS OF MYOCARDIAL INFARCTION. THE UPPER REFERENCE LIMIT (URL) OF TROPONIN, DEFINED THE 99TH PERCENTILE OF cTnI DISTRIBUTION IN A REFERENCE POPULATION, HAS BEEN CONFIRMED THE DECISION THRESHOLD FOR SC DIAGNOSIS. Performed By: #### B MP, HSTROPN #### [facility] [address] [place], [place] [address] Dr. Deborah Mohan XR CHEST 1 Von [...] BARRY Date: 2021-11-29 19:[address] [facility] XR LSPINE W_OBLS AND FLEX_EX Ton [...] RAUDEL ESTRADA Date: 2021-11-12 07:56 Normal [facility] CALCIUMon 11-11-2021 Calcium [Mass/Vol] 9.0 mg/dL Normal 8.5-10.1 [facility] Comment on above: Performed By: #### A NARF #### [facility] [address] [address] [address] Deborah Mohan CREATININEon 11-11-2021 Creatinine [Mass/Vol] 1.47 mg/dL Critically high 0.55-1.[address] [facility] Comment on above: Performed By: #### A NARF #### [facility] [address] [address] [address] Deborah Mohan EGFR-AF CROATIAN 43 mL/min/1.73m2 Critically low >=[address] [facility] Comment on above: Performed By: #### A NARF #### [facility] [address] [address] [address] Deborah Mohan EGFR-NON AF CROATIAN 35 mL/min/1.73m2 Critically low >=[address] [facility] Comment on above: Performed By: #### A NARF #### [facility] [address] [address] [address] Deborah Mohan Encounters Encounter Date Encounter Type Care Provider Facility Start: 10-18-2023 End: 10-18-2023 ambulatory [facility] Start: 08-01-2023 End: 08-02-2023 ambulatory Gabriella Woodruff MD Facility:[facility] Start: 10-05-2022 End: 10-06-2022 ambulatory MARGUERITE MONIQUE . Facility: Start: 09-17-2022 End: 09-17-[address] INGRID ESPINAL Facility: Start: 08-26-2022 ambulatory MARGUERITE MONIQUE . Facility: Start: 08-24-2022 End: 08-24-2022 ambulatory NATIVIDAD RICARDO Facility:[facility] Start: 07-08-2022 End: 07-09-2022 ambulatory JOEL RAMON . Facility:[facility] Start: 07-06-2022 End: 07-07-2022 ambulatory NATIVIDAD RICARDO Facility:[facility] Start: 06-24-2022 End: 06-25-2022 ambulatory JOEL RAMON . Facility:[facility] Start: 05-21-2022 ambulatory NATIVIDAD RICARDO Facility: [facility] Start: 05-08-2022 End: 05-08-2022 ambulatory Clarita Nena Facility:[facility] Start: 05-08-2022 End: 05-08-2022 ambulatory RETINAL ANGIOGRAPHER-C Clarita Nena Work Phone: [facility] Work Phone: Start: 05-08-2022 End: 05-08-2022 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 procedure RETINAL ANGIOGRAPHER-C Clarita Leigh Work Phone: [facility] Start: 04-08-2022 End: 04-09-2022 ambulatory JOEL RAMON . Facility:[facility] Start: 04-07-2022 End: 04-07-2022 ambulatory NATIVIDAD RICARDO Facility:[facility] Start: 03-16-2022 End: 03-16-2022 ambulatory NATIVIDAD RICARDO Facility:[facility] Start: 03-12-2022 End: 03-13-2022 ambulatory NATIVIDAD RICARDO Facility:[facility] Start: 03-09-2022 End: 03-10-2022 ambulatory NATIVIDAD RICARDO Facility:[facility] Start: 03-05-2022 End: 03-06-2022 ambulatory NATIVIDAD RICARDO Facility:[facility] Start: 02-28-2022 End: 03-01-2022 ambulatory NATIVIDAD RICARDO Facility:[facility] Start: 01-29-2022 End: 01-30-2022 ambulatory JOEL RAMON . Facility:[facility] Start: 01-28-2022 End: 01-29-2022 ambulatory JOEL RAMON . Facility:[facility] Start: 11-29-2021 End: 11-30-2021 ambulatory NATIVIDAD RICARDO Facility:[facility] Start: 11-11-2021 End: 11-13-[address] LUISITO TOWNSEND . Facility:[facility] Start: 11-05-2021 End: 11-06-2021 ambulatory JOEL RAMON . Facility:[facility] Start: 04-01-2018 End: 04-01-2018 Emergency department patient visit BRANDON RUSSELL [facility] Start: 12-11-2017 End: 12-11-2017 Emergency department patient visit ROBERT HURLEY Facility:[facility] Procedures Date Procedure Procedure Detail Performing Clinician Start: 05-08-2022 Plain X-ray of left wrist RETINAL ANGIOGRAPHER-C Clarita Leigh Work Phone: Start: 05-08-2022 X-ray of left ankle RETINAL ANGIOGRAPHER -C Clarita Nena Work Phone: Start: 04-01-2018 IP CONSULT TO ORAL SURGERY BRANDONNATACHA RUSSELL Payers Date Payer Category Payer Unknown 2022 Medicare [id number] 2022 Self-pay 1959 Unknown [id number] 1953 Unknown [id number] 2.16.84 0.1.453686.3.579.2.593 1953 Unknown [id number] 2.16.84 0.1.053599.3.579.2.593 1953 Unknown [id number] 2.16.84 0.1.592209.3.579.2.593 1953 Unknown [id number] 2.16.84 0.1.463782.3.579.2.593 1953 Unknown [id number] 2.16.84 0.1.821303.3.579.2.593 1953 Unknown [id number] 2.16.84 0.1.645240.3.579.2.593 1953 Unknown [id number] 2.16.84 0.1.922633.3.579.2.593 1953 Unknown [id number] 2.16.84 0.1.871575.3.579.2.593 1953 Unknown [id number] 2.16.84 0.1.785461.3.579.2.593 1953 Unknown [id number] 2.16.84 0.1.304630.3.579.2.593 1953 Unknown [id number] 2.16.84 0.1.307840.3.579.2.593 1953 Unknown [id number] 2.16.84 0.1.968175.3.579.2.593 1953 Unknown [id number] 2.16.84 0.1.848163.3.579.2.593 1953 Unknown [id number] 2.16.84 0.1.149601.3.579.2.593 1953 Unknown [id number] 2.16.84 0.1.726954.3.579.2.593 1953 Unknown [id number] 2.16.84 0.1.781235.3.579.2.593 1953 Unknown [id number] 2.16.84 0.1.533699.3.579.2.593 1953 Unknown [id number] 2.16.84 0.1.611337.3.579.2.593 1953 Unknown [id number] 2.16.84 0.1.763212.3.579.2.593 1953 Unknown [id number] 2.16.84 0.1.194492.3.579.2.593 1953 Unknown [id number] 2.16.84 0.1.258711.3.579.2.593 1953 Unknown [id number] 2.16.84 0.1.803440.3.579.2.593 1953 Unknown [id number] 2.16. 840.1.600651.3.579.2.196 Medicare [id number] Unknown [facility] [id number] Unknown [place]/BS [id number] Unknown [id number] 2.16.8 40.1.151686.3.579.2.531 Social History Date Type Detail Facility [facility] Work Phone: Start: 1955 Sex Assigned At Female F [facility] Clinical Notes 11-05-2021 to 10-18-2023 Note Date & Type Note Facility 10-18-2023 Note [facility] Note Chief Complaint: New patient here to establish care. Ref from Dr. Townsend for abnormal EKG. She also wore 7 day Holter monitor, and says she did not work while wearing this. She works at [employer] and says it's very fast paced. States she drinks a 5 Hour [employer] shot almost every day. She was admitted to [facility] for migraine recently and was found to have abnormal EKG. Recently has noticed a twinge of chest pain. C/o DAI, palpitations, and lightheadedness. HPI: Mary Vick is a 68 y.o. female With a history of hypertension and hypothyroidism who presents due to an abnormal Holter monitor She was admitted to the [facility] for migraine; a monitor revealed both [...] Plan: Routine labs (more content not included)... [facility] 07-08-2022 Note CONSULTATION PROCEDURE DATE: 07/08/2022 HISTORY [...] in the clinic in three months. [facility] 06-24-2022 Note CONSULTATION CONSULTATION DATE: 06/24/2022 [...] at a time, as she works at [employer]. Current medications include Percocet 5/325 daily, diclofenac [...] pending approval for her knee injections. [facility] 04-08-2022 Note CONSULTATION CONSULTATION DATE: 04/08/2022 [...] three months' time unless otherwise indicated. [facility] 03-09-2022 Note CONSULTATION CONSULTATION DATE: 03/09/2022 [...] to proceed. CC: Natividad Silva CNP [facility] 01-28-2022 Note CONSULTATION CONSULTATION DATE: [...] and re-evaluation of her bursa injection. [facility] 01-28-2022 Note CONSULTATION PROCEDURE DATE: 01/30/2022 [...] be followed up in the clinic. [facility] 11-12-2021 Note PROCEDURE: XR HIPS B [...] by: RAUDEL ESTRADA Date: 2021-11-12 07:50 [facility] 11-05-2021 Note CONSULTATION PROCEDURE DATE:11/05/2021 PREOPERATIVE [...] will be followed up in the office. [facility] Signed and Approved by: JOEL RAMON . 11/18/2021 16:24:[address] [facility] 11-05-2021 Note CONSULTATION CONSULTATION DATE: 11/05/2021 [...] time, was working half a day at [employer] and since then has increased to full [...] in three months' time unless otherwise indicated. [facility] Signed and Approved by: JOEL RAMON . 11/18/2021 16:24:00 [facility] Evaluation note No assessment information availa [facility] Work Phone: Summary Purpose Family History No [...] section and content) DATE CREATED AUTHOR 12/21/2017 [facility] DATE CREATED AUTHOR AUTHOR'S ORGANIZ ATION 05/01/2018 [facility] DATE CREATED AUTHOR AUTHOR'S ORGANIZ ATION 05/17/2022 [facility] DATE CREATED AUTHOR AUTHOR'S ORGANIZ ATION 10/06/2022 [facility] DATE CREATED AUTHOR AUTHOR'S ORGANIZ ATION 08/03/2023 [facility] DATE CREATED AUTHOR AUTHOR'S ORGANIZ ATION 10/18/2023 [facility] Care Teams (unrecognized sec tion [...] BE BASED ON THE PRIMARY CLINICAL RECORDS. [employer] [facility]. provides no warranty or guarantee of the accuracy or completeness of information in this document.
--- NOTE | 2023-11-21 07:07 | CA_ITS ---
Patient Name Site Name MELANIE TOMPKINS [facility] Account No Medical Record Number Age Sex Date Time [id number] [facility]:[id number] F 11/21/2023 07:30 At the Request Of Miriam Saenz ECHOCARDIOGRAM REPORT PROCEDURE: CA ECHO DOPPLER COMPLETE INDICATIONS: palpitations, chest pain COMPARISON: None. DESCRIPTION: COMPLETE ECHOCARDIOGRAM Real-time transthoracic echocardiography with 2D, M-mode, spectral and color flow Doppler performed. QUALITY: Technical quality was good. LEFT VENTRICLE: Normal chamber size. Mild concentric left ventricular hypertrophy. Global left ventricular systolic function is normal. LV EF: Estimated left ventricular ejection fraction is 60-65%. DIASTOLIC: Diastolic function is indeterminate. ATRIAL SEPTUM: LEFT ATRIUM: Severe dilatation. RIGHT ATRIUM: Mild dilatation. RIGHT VENTRICLE: Normal chamber size. Normal right ventricular systolic function. TRICUSPID VALVE: Normal mobility and thickness. No stenosis with trivial regurgitation. Mild pulmonary hypertension. RVSP 35 mmHg MITRAL VALVE: Normal mobility and thickness. Mild mitral annular calcification. Trivial mitral regurgitation. AORTIC VALVE: Normal trileaflet appearance. No visible sclerosis. Normal leaflet mobility. No evidence of aortic valve stenosis. Mild to moderate aortic regurgitation. AORTIC ROOT: Normal diameter and appearance. PULMONIC VALVE: Normal thickness and mobility. No stenosis. Mild regurgitation. PERICARDIUM: No evidence of pericardial effusion. IVC: Collapses with inspirations. Mild dilatation measuring 2.5 cm. PLEURA: CONCLUSION: 1. Mild concentric left ventricular hypertrophy with normal systolic function. 2. Normal right ventricular size and systolic function. 3. Severe left atrial dilatation. 4. Trileaflet aortic valve with mild to moderate regurgitation and no stenosis. 5. Mildly elevated right-sided pressures. RVSP is 35 mmHg. Adult Echocardiography Procedure Report Left Ventricle LVEDD (3.7 - 5.6 cm): 5.03 cm LVESD (2.2 - 4.0 cm): 3.26 cm LVIVS thickness (0.6 - 1.2 cm): 1.05 cm LVPW thickness (0.5 - 1.0 cm): 1.06 cm e': 0.10 m/s E - e': 8.79 LVOT Max Gradient: 3.56 mm[Hg] LVOT Area (cm2): 0.94 m/s Peak Velocity (LVOT): 0.94 m/s Mean Velocity (LVOT): 0.63 m/s LVOT Diameter 1.96 cm Left Ventricular Ejection Fraction: 60-65 % Left Atrium LA Volume Index (2D A2C): 84.46 ml/m2 Left Atrium Systolic Dimension: 3.40 cm Mitral Valve MV E to A Ratio: 0.81 Mitral Valve A-Wave Peak Velocity: 1.04 m/s Mitral Valve E-Wave Peak Velocity: 0.84 m/s Right Ventricle RV Internal Diastolic Dimension: 3.98 cm Aorta AO Root Diam: 3.01 cm Ascending Ao Diam: 3.19 cm Aortic Valve AoV Area (Peak Scar): 1.91 cm2, 1.91 cm2 AoV Area (VTI): 2.03 cm2, 2.03 cm2 Deceleration Nelson: 1.63 m/s2, 1.75 m/s2 Pressure Half-Time: 721.48 ms, 659.74 ms Peak Velocity(Antegrade Flow): 1.48 m/s Peak Gradient(Antegrade Flow): 8.80 mm[Hg] Mean Velocity(Antegrade Flow): 0.99 m/s Mean Gradient(Antegrade Flow): 4.42 mm[Hg] Velocity Time Integral: 40.89 cm Tricuspid Valve Peak Velocity (Regurgitant Flow): 2.14 m/s, 2.50 m/s, 2.62 m/s Pulmonic Valve Mean Gradient: 2.83 mm[Hg], 2.95 mm[Hg] Mean Velocity: 0.79 m/s, 0.81 m/s Peak Velocity: 1.17 m/s Peak Gradient: 5.70 mm[Hg], 5.33 mm[Hg] Right Atrium Right Atrium Systolic Pressure: 59.17 ml, 59.17 ml Dictated by: Ottoniel Oquendo M.D. on 11/21/2023 at 13:08 Approved by: Ottoniel Oquendo M.D. on 11/21/2023 at 13:13
[2023-11-21] MEDS: REGADENOSON 0.4 MG/5 ML SYRINGE 0.400000000000000022 MG IV (09:57)
--- NOTE | 2023-11-21 10:10 | PC.NURSE ---
Nursing Note Cardiac Stress Test Reviewed: Medication, allergies and patient history reviewed. Stress Test: [x ] Patient tolerated stress test well. [ ] Patient unable to tolerate walking on treadmill. Switched to Lexiscan stress test. [ x] No chest pain noted per patient [ ] Chest pain that resolved prior to leaving stress lab. [ ] No dyspnea noted. [ x] Dyspnea that resolved prior to leaving stress lab. [ x] Patient left stress lab asymptomatic and hemodynamically stable. [ ] Patient taken to the Emergency Room due to non-resolving symptoms following stress test. [ ] Patient achieved target heart rate. [ ] Patient unable to achieve target heart rate. [ ] Aminophylline administered as reversal agent to Lexiscan (Regadenoson). [ ] Nitro administered. Nursing Comments: Patient reported some shortness of breath and chest fullness following the administration of lexiscan. Both symptoms resolved within 5 minutes of the administration of the lexiscan. Patient reported feeling back to baseline before leaving the stress lab.
== END 2023-11-21 06:51 | disposition home or self-care (01) ==
LOC: CARD 06:51
PROVIDERS: PCP Nurse Practitioner Family; Visit Provider Internal Medicine Interventional Cardiology
DX: R00.2 Palpitations (principal); R07.9 Chest pain, unspecified; R06.09 Other forms of dyspnea
CPT/HCPCS: 78452; 93017; 93306; A9500; J2785

== ENCOUNTER 2023-12-06 09:07 | Day surgery (SDC) | payer MEDICARE, SELFPAY ==
--- OUTSIDE RECORDS SUMMARY | 2023-12-06 09:15 | XMS_ITS | CCD ---
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 mL/min/1.73m2 Critically low >=60 [facility] Comment on above: Performed By: #### H STROPN, CMP ####[facility] [address] [place] [address]Dr. Deborah Mohan Globulin (S) [Mass/Vol] 3.7 g/dL Normal [facility] Comment on above: Performed By: #### H STROPN, CMP ####[facility] [address] [place] [address]Dr. Deborah Mohan Glucose [Mass/Vol] 118 mg/dL Critically high 74-[address] [facility] Comment on above: Performed By: #### H STROPN, CMP ####[facility] [address] [place] [address]Dr. Deborah Mohan Potassium [Moles/Vol] 4.0 mmol/L Normal 3.5-5.1 [facility] Comment on above: Performed By: #### H STROPN, CMP ####[facility] [address] [place] [address]Dr. Deborah Mohan Protein [Mass/Vol] 6.9 g/dL Normal 6.4-8.2 [facility] Comment on above: Performed By: #### H STROPN, CMP ####[facility] [address] [place] [address]Dr. Deborah Mohan Sodium [Moles/Vol] 136 mmol/L Normal 136-145 [facility] Comment on above: Performed By: #### H DENIS, CMP ####[facility] [address] [place] [address]Dr. Deborah Mohan Urea nitrogen [Mass/Vol] 28.0 mg/dL Critically high 7.0-18.0 [facility] Comment on above: Performed By: #### H STROMAVIS, CMP ####[facility] [address] [place] [address]Dr. Deborah Mohan Urea nitrogen/Creatinine [Mass ratio] 23.1 mg/mg Normal [facility] Comment on above: Performed By: #### H DENIS, CMP ####[facility] [address] [place] [address]Dr. Deborah Mohan TROPONIN, HIGH SENSITIVITYon 04-07-2022 HSTROP 5.9 pg/mL Normal 4.0-51.3 [facility] Comment on above: Result Comment: CUT- OFF POINTS HAVE BEEN ESTABLISHED BASED ON THE FOURTH UNIVERSAL DEFINITIONS OF MYOCARDIAL INFARCTION. THE UPPER REFERENCE LIMIT (URL) OF TROPONIN, DEFINED THE 99TH PERCENTILE OF cTnI DISTRIBUTION IN A REFERENCE POPULATION, HAS BEEN CONFIRMED THE DECISION THRESHOLD FOR [place] DIAGNOSIS. Performed By: #### H STROPN, CMP ####[facility] [address] [place] [id number]. Deborah Marques XR CHEST 1 Von 04-07-2022 XR CHEST [...] ANDERSON ALMANZAR Date: 2022-04-07 03:11 Normal [facility] HEMOGLOBINon 03-12-2022 Hemoglobin (Bld) [Mass/Vol] 9.2 g/dL Critically low 12.0-16.0 [facility] Comment on above: Performed By: #### A NARF #### [facility] [address] [place] [address] [address] Deborah Mohan ANTI NEUTROPHIL CYTOPLASMIC AB (ANCA) PRon 03-09-2022 Anti-MPO Antibodies <0.2 Normal 0.0-0.9 [facility] Comment on above: Result Comment: Perf ormed at: BN Performed By: #### B LOAN SERVICING SPECIALIST, HSTROPN, CMP #### [facility] [address] [place] [address] [address] Deborah Mohan Anti-PR3 Antibodies <0.2 Normal 0.0-0.9 [facility] Comment on above: Result Comment: Perf ormed at: BN Performed By: #### B LOAN SERVICING SPECIALIST, HSTROPN, CMP #### [facility] [address] [place] [address] [address] Deborah Mohan Atypical pANCA 1:160 Critically high Neg:<1:20 [facility] Comment on above: Result Comment: The atypical pANCA pattern has been observed in a significant percentage of patients with ulcerative colitis, primary sclerosing cholangitis and autoimmune hepatitis. Performed at: CB Performed By: #### B LOAN SERVICING SPECIALIST, HSTROPN, CMP #### [facility] [address] [place] [address] [address] Deborah Mohan Cytoplasmic (C-ANCA) <1:20 Normal Neg:<1:20 [facility] Comment on above: Result Comment: Perf ormed at: CB Performed By: #### B PHILLIP JONES, CMP #### [facility] [address] [place] [address] [address] Deborah Mohan Perinuclear (P-ANCA) <1:20 Normal Neg:<1:20 [facility] Comment on above: Result Comment: The presence of positive fluorescence exhibiting P-ANCA or C-ANCA patterns alone is not specific for the diagnosis of Marlin's Granulomatosis (WG) or microscopic polyangiitis. Decisions about treatment should not be based solely on ANCA IFA results. The [employer] ANCA [employer] Consensus recommends follow up testing of positive sera with both NV-3 and MPO-ANCA enzyme immunoassays. As many as 5% serum samples are positive only by EIA. Ref. AM J Clin Pathol 1999;111:507-513. Performed at: CB Performed By: #### B PHILLIP JONES, CMP #### [facility] [address] [place] [address] [address] Deborah Mohan ANTISCLERODERMA ABon 022 Antiscleroderma-70 Antibodies <0.2 Normal 0.0-0.9 [facility] Comment on above: Performed By: #### A NARF #### [facility] [address] [place] [address] [address] CHEST WO CONon [...] incidental findings, as described above. Normal [facility] CYCLIC CITRULLINATED PEPTIDE AB (CCP)on 03-09-2022 CCP Antibodies IgG/IgA 6 units Normal 0-19 [facility] Comment on above: Result Comment: Nega tive <20 Weak positive 20 - 39 Moderate positive 40 - 59 Strong positive >59 Performed By: #### B LOAN SERVICING SPECIALIST, HSTROPN, CMP #### [facility] [address], [place] [address] Dr. Deborah Mohan IGG SUBCLASSES (1-4) AND TOT Kade 03-09-2022 IgG, Subclass 1 448 mg/dL Normal 248-[address] [facility] Comment on above: Performed By: #### B LOAN SERVICING SPECIALIST, HSTROPN, CMP #### [facility] [address] [place] [address] [address] Deborah Mohan IgG, Subclass 2 253 mg/dL Normal 130-[address] [facility] Comment on above: Performed By: #### B LOAN SERVICING SPECIALIST, HSTROPN, CMP #### [facility] [address] [place] [address] [address] Deborah Mohan IgG, Subclass 3 95 mg/dL Normal 15-[address] [facility] Comment on above: Performed By: #### B LOAN SERVICING SPECIALIST, HSTROPN, CMP #### [facility] [address] [place] [address] [address] Deborah Mohan IgG, Subclass 4 10 mg/dL Normal 2-[address] [facility] Comment on above: Performed By: #### B LOAN SERVICING SPECIALIST, HSTROPN, CMP #### [facility] [address] [place] [address] [address] eDborah Mohan Immunoglobulin G, Qn, Serum 658 mg/dL Normal 586-1602 [facility] Comment on above: Performed By: #### B LOAN SERVICING SPECIALIST, HSTROPN, CMP #### [facility] [address] [place] [id number] [address] Deborah Mohan IMMUNOGLOBULIN E, TOTALon Immunoglobulin E, Total 5 IU/mL Critically low 6-495 [facility] Comment on above: Performed By: #### I GETOT ####[facility] [address] [place], [place] [address]QhDr. Deborah Mohan MICHELL EIA W/REFLEX 5 BIOMARKER Son 03-08-2022 MICHELL Direct Negative Normal Negative [facility] Comment on above: Performed By: #### A NARF #### [facility] [address] [place] [address] [address] Deborah Mohan ANGIOTENSION-CONVERTING ENZY ME (FRANCECSO)on 03-08-2022 FRANCESCO 32 U/L Normal 14-82 [facility] Comment on above: Performed By: #### A NGIOC ####[facility] [address] [place] [address]DrAnkur Mohan ANTIGLOMERULAR BASEMENT MEMB ROMMEL ABSon 03-08-2022 Anti-GBM Antibodies <0.2 Normal 0.0-0.9 [facility] Comment on above: Performed By: #### A GBM #### [facility] [address] [place] [address] [address] Deborah Mohan IMMUNOGLOBULIN IGA QUANTITIA VEon 03-06-2022 Immunoglobulin A, Qn, Serum 229 mg/dL Normal 87-352 [facility] Comment on above: Performed By: #### A NARF #### [facility] [address] [place] [address] [address] Deborah Mohan IMMUNOGLOBULIN IGM QUANTITAT IVEon 03-06-2022 Immunoglobulin M, Qn, Serum 83 mg/dL Normal 26-217 [facility] Comment on above: Performed By: #### B LOAN SERVICING SPECIALIST, HSTROPN, CMP #### [facility] [address] [place] [address] [address] Deborah Mohan RHEUMATOID FACTORon 03-06-20 22 RA Latex Turbid. 10.9 IU/mL Normal <14.0 [facility] Comment on above: Performed By: #### R F ####[facility] [address] [place] [address]Dr. Deborah Mohan CREATININEon 03-05-2022 Creatinine [Mass/Vol] 1.38 mg/dL Critically high 0.55-1.02 [facility] Comment on above: Performed By: #### C MELVINA ####[facility] [address] [place] [address]DrAnkur Mohan EGFR-AF FINNISH 46 mL/min/1.73m2 Critically low >=60 [facility] Comment on above: Performed By: #### C MELVINA ####[facility] [address] [place] [address]Dr. Deborah Mohan EGFR-NON AF FINNISH 38 mL/min/1.73m2 Critically low >=60 [facility] Comment on above: Performed By: #### C MELVINA ####[facility] [address] [place] [address]Dr. Deborah Mohan SED RATE WESTERGRENon 2021 SED RATE 92 mm/hr Critically high <=[address] [facility] Comment on above: Performed By: #### B LOAN SERVICING SPECIALIST, HSTROPN, CMP #### [facility] [address] [place] [address] [address] Deborah Mohan XR DEXA BONE DENSITYon [...] by: ROBERT CONDON Date: 2022-03-05 16:56 Normal [facility] XR CHEST 1 Von 03-01-2022 [...] by: ROBERT NOVAK Date: 2022-02-28 22:27 Normal [facility] XR KNEE LUANA 4V or [...] RAUDEL ESTRADA Date: 2022-01-29 11:09 Normal [facility] CBC AUTO DIFFon 11-29-2021 BASO # 0.1 103/ul Normal 0.0-0.1 [facility] Comment on above: Performed By: #### C BC ####[facility] [address] [place] [address]Dr. Deborah Mohan Basophils/100 WBC (Bld) 0.8 % Normal 0.2-2.0 [facility] Comment on above: Performed By: #### C BC ####[facility] [address] [place] [address]DrAnkur Mohan EO # 0.3 103/ul Normal 0.0-0.7 [facility] Comment on above: Performed By: #### C BC ####[facility] [address] [place] [address]Dr. Deborah Mohan Eosinophils/100 WBC (Bld) 2.2 % Normal 0.9-7.0 [facility] Comment on above: Performed By: #### C BC ####[facility] [address] [place] [address]DrAnkur Mohan Erythrocyte distribution width (RBC) [Ratio] 21.2 % Critically high 11.0-15.0 [facility] Comment on above: Performed By: #### C BC ####[facility] [address] [place] [address]DrAnkur Mohan Hematocrit (Bld) [Volume fraction] 33.2 % Critically low 36.0-48.0 [facility] Comment on above: Performed By: #### C BC ####[facility] [address]rf[address] [place] [address]DrAnkur Mohan Hemoglobin (Bld) [Mass/Vol] 10.3 g/dL Critically low 12.0-16.0 [facility] Comment on above: Performed By: #### C BC ####[facility] [address] [place], [place] [address]DrAnkur Mohan IG # 0.11 10e3/ul Critically high 0.00-0.03 [facility] Comment on above: Performed By: #### C BC ####[facility] [address] [place], [place] [address]DrAnkur Mohan IG % 0.9 % Critically high 0.0-0.[address] [facility] Comment on above: Performed By: #### C BC ####[facility] [address] [place], [place] [address]DrAnkur Mohan LYMPH # 2.2 103/ul Normal 1.2-3.8 [facility] Comment on above: Performed By: #### C BC ####[facility] [address] [place], [place] [address]DrAnkur Mohan Lymphocytes/100 WBC (Bld) 18.5 % Critically low 20.5-60.0 [facility] Comment on above: Performed By: #### C BC ####[facility] [address] [place], [place] [address]DrAnkur Mohan MANUAL DIFF REQ NO Normal [facility] Comment on above: Performed By: #### C BC ####[facility] [address] [place], [place] [address]DrAnkur Mohan MCH (RBC) [Entitic mass] 26.3 pg Critically low 26.7-34.0 [facility] Comment on above: Performed By: #### C BC ####[facility] [address] [place], [place] [address]DrAnkur Mohan MCHC (RBC) [Mass/Vol] 31.0 g/dL Normal 29.9-35.2 [facility] Comment on above: Performed By: #### C BC ####[facility] [address] [place], [place] [address]DrAnkur Mohan MCV (RBC) [Entitic vol] 84.9 fL Normal 81.0-99.0 [facility] Comment on above: Performed By: #### C BC ####[facility] [address] [place], [place] [address]DrAnkur Mohan MONO # 0.6 103/ul Normal 0.3-0.8 [facility] Comment on above: Performed By: #### C BC ####[facility] [address] [place], [place] [address]DrAnkur Mohan Monocytes/100 WBC (Bld) 5.3 % Normal 1.7-12.0 [facility] Comment on above: Performed By: #### C BC ####[facility] [address] [place], [place] [address]DrAnkur Mohan NEUT # 8.4 103/ul Critically high 1.4-6.[address] [facility] Comment on above: Performed By: #### C BC ####[facility] [address] [place], [place] [address]DrAnkur Mohan Neutrophils/100 WBC (Bld) 72.3 % Normal 43.0-75.0 [facility] Comment on above: Performed By: #### C BC ####[facility] [address] [place], [place] [address]DrAnkur Mohan Platelet mean volume (Bld) [Entitic vol] 10.1 fL Normal 9.5-13.5 [facility] Comment on above: Performed By: #### C BC ####[facility] [address] [place], [place] [address]DrAnkur Mohan PLT 351 103/ul Normal 150-450 [facility] Comment on above: Performed By: #### C BC ####[facility] [address] [place], [place] [address]DrAnkur Mohan RBC 3.91 106/ul Critically low 4.20-5.[address] [facility] Comment on above: Performed By: #### C BC ####[facility] [address] [place], [place] [address]Fx. Deborah Mohan WBC 11.6 103/ul Critically high 4.0-11.0 [facility] Comment on above: Performed By: #### C BC ####[facility] [address] [place], [place] [address]Vc. Deborah Mohan CTA CHEST WO W CONon [...] 2. Bilateral peripheral fibrosis and/or scarring with merz-ja-txpyrrie groundglass densities. The groundglass densities are slightly decreased compared to the prior scan. 3. Old calcified granulomas in the chest and abdomen. 4. Large hiatal hernia. 5. Moderate diffuse osteopenia. Electronically authenticated by: BERNARDO DENNY Date: 2021-11-29 20:31 Normal [facility] D-DIMERon 11-29-2021 D-DIMER 1.14 mg/L FEU Critically high <=0.59 [facility] Comment on above: Performed By: #### A NARF #### [facility] [address] [place] [address] Dr. Deborah Mohan D-DIMER COMMENTS SEE BELOW Normal [facility] Comment on above: Result Comment: Incr [...] hospitalization. Performed By: #### A NARF #### [facility] [address] [place] [address] Dr. Deborah Mohan PROF CHEM 8 (BAS METB)on Anion gap [Moles/Vol] 11.7 mmol/L Normal [facility] Comment on above: Performed By: #### B KYLEE, HSTROPN #### [facility] [address] [place] [address] [address] Deborah Mohan Calcium [Mass/Vol] 8.7 mg/dL Normal 8.5-10.1 [facility] Comment on above: Performed By: #### B KYLEE, HSTROPN #### [facility] [address] [place] [address] [address] Deborah Mohan Chloride [Moles/Vol] 107 mmol/L Normal 98-107 [facility] Comment on above: Performed By: #### B KYLEE, HSTROPN #### [facility] [address] [place] [address] [address] Deborah Mohan CO2 [Moles/Vol] 25.3 mmol/L Normal 21.0-32.0 [facility] Comment on above: Performed By: #### B MP, HSTROPN #### [facility] [address] [place] [address] [address] Deborah Mohan Creatinine [Mass/Vol] 0.98 mg/dL Normal 0.55-1.02 [facility] Comment on above: Performed By: #### B MP, HSTROPN #### [facility] [address] [place] [address] [address] Deborah Mohan EGFR-AF FINNISH >60 Normal >=60 [facility] Comment on above: Performed By: #### B MP, HSTROPN #### [facility] [address] [place] [address] [address] Deborah Mohan EGFR-NON AF FINNISH 56 mL/min/1.73m2 Critically low >=60 [facility] Comment on above: Performed By: #### B MP, HSTROPN #### [facility] [address] [place] [address] [address] Deborah Mohan Glucose [Mass/Vol] 105 mg/dL Normal 74-106 [facility] Comment on above: Performed By: #### B MP, HSTROPN #### [facility] [address] [place] [address] [address] Deborah Mohan Potassium [Moles/Vol] 4.0 mmol/L Normal 3.5-5.1 [facility] Comment on above: Performed By: #### B MP, HSTROPN #### [facility] [address] [address] [address] Deborah Mohan Sodium [Moles/Vol] 140 mmol/L Normal 136-145 [facility] Comment on above: Performed By: #### B MP, HSTROPN #### [facility] [address] [place] [address] [address] Deborah Mohan Urea nitrogen [Mass/Vol] 21.0 mg/dL Critically high 7.0-18.0 [facility] Comment on above: Performed By: #### B KYLEE, HSTROPN #### [facility] [address], [place] [address] Dr. Deborah Mohan Urea nitrogen/Creatinine [Mass ratio] 21.4 mg/mg Normal [facility] Comment on above: Performed By: #### B KYLEE, HSTROPN #### [facility] [address], [place] [address] Dr. Deborah Mohan TROPONIN, HIGH SENSITIVITYon 11-29-2021 HSTROP 4.5 pg/mL Normal 4.0-51.3 [facility] Comment on above: Result Comment: CUT- OFF POINTS HAVE BEEN ESTABLISHED BASED ON THE FOURTH UNIVERSAL DEFINITIONS OF MYOCARDIAL INFARCTION. THE UPPER REFERENCE LIMIT (URL) OF TROPONIN, DEFINED THE 99TH PERCENTILE OF cTnI DISTRIBUTION IN A REFERENCE POPULATION, HAS BEEN CONFIRMED THE DECISION THRESHOLD FOR [place] DIAGNOSIS. Performed By: #### H STROPN ####[facility] [id number] [place], [place] [address]ZbDr. Deborah Mohan HSTROP 6.0 pg/mL Normal 4.0-51.3 [facility] Comment on above: Result Comment: CUT- OFF POINTS HAVE BEEN ESTABLISHED BASED ON THE FOURTH UNIVERSAL DEFINITIONS OF MYOCARDIAL INFARCTION. THE UPPER REFERENCE LIMIT (URL) OF TROPONIN, DEFINED THE 99TH PERCENTILE OF cTnI DISTRIBUTION IN A REFERENCE POPULATION, HAS BEEN CONFIRMED THE DECISION THRESHOLD FOR [place] DIAGNOSIS. Performed By: #### B KYLEE HSTROPN #### [facility] [address], [place] [address] Dr. Deborah Mohan XR CHEST 1 Von [...] KANDY BARRY Date: 2021-11-29 19:20 Normal [facility] XR LSPINE W_OBLS AND FLEX_EX [...] RAUDEL ESTRADA Date: 2021-11-12 07:56 Normal [facility] CALCIUMon 11-11-2021 Calcium [Mass/Vol] 9.0 mg/dL Normal 8.5-10.1 [facility] Comment on above: Performed By: #### A NARF #### [facility] [address] [place] [address] [address] Deborah Mohan CREATININEon 11-11-2021 Creatinine [Mass/Vol] 1.47 mg/dL Critically high 0.55-1.02 [facility] Comment on above: Performed By: #### A NARF #### [facility] [address] [address] [address] Deborah Mohan EGFR-AF FINNISH 43 mL/min/1.73m2 Critically low >=60 [facility] Comment on above: Performed By: #### A NARF #### [facility] [address] [address] [address] Deborah Mohan EGFR-NON AF FINNISH 35 mL/min/1.73m2 Critically low >=60 [facility] Comment on above: Performed By: #### A NARF #### [facility] [address] [address] [address] Deborah Mohan Encounters Encounter Date Encounter Type Care Provider Facility Start: 11-28-2023 End: 11-28-2023 ambulatory [facility] Start: 10-18-2023 End: 10-18-2023 ambulatory [facility] Start: 08-01-2023 End: 08-02-2023 ambulatory Gabriella Woodruff MD Facility:[facility] Start: 10-05-2022 End: 10-06-2022 ambulatory NARENDRANATH LAKSHMIPATHY [...] Start: 05-08-2022 End: 05-08-2022 ambulatory Clarita Leigh Facility:[facility] Start: 05-08-2022 End: 05-08-2022 ambulatory [employer]GER-C Clarita Leigh Work Phone: [facility] Work Phone: Start: 05-08-2022 End: 05-08-2022 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 procedure C[employer]ER ACQUISITION MANAGER-C Clarita Leigh Work Phone: [facility] Start: 04-08-2022 End: 04-09-2022 ambulatory JOEL RAMON . Facility:[facility] Start: 04-07-2022 End: 04-07-2022 ambulatory NATIVIDAD SILVA Facility:[facility] Start: 03-16-2022 End: 03-16-2022 ambulatory NATIVIDAD SILVA Facility:[facility] Start: 03-12-2022 End: 03-13-2022 ambulatory NATIVIDAD SILVA Facility:[facility] Start: 03-09-2022 End: 03-10-2022 ambulatory NATIVIDAD SILVA Facility:[facility] Start: 03-05-2022 End: 03-06-2022 ambulatory NATIVIDAD SILVA Facility:[facility] Start: 02-28-2022 End: 03-01-2022 ambulatory NATIVIDAD SILVA Facility:[facility] Start: 01-29-2022 End: 01-30-2022 ambulatory JOEL RAMON . Facility:[facility] Start: 01-28-2022 End: 01-29-2022 ambulatory JOEL WALTERIS . Facility:[facility] Start: 11-29-2021 End: 11-30-2021 ambulatory NATIVIDAD SILVA Facility:[facility] Start: 11-11-2021 End: 11-13-[address] LUISITO TOWNSEND . Facility:[facility] Start: 11-05-2021 End: 11-06-2021 ambulatory JOEL RAMON . Facility:[facility] Start: 04-01-2018 End: 04-01-2018 Emergency department patient visit BRANDON RUSSELL [facility] Start: 12-11-2017 End: 12-11-2017 Emergency department patient visit ROBERT HURLEY Facility:[facility] Procedures Date Procedure Procedure Detail Performing Clinician Start: 05-08-2022 Plain X-ray of left wrist C[employer]ER [employer]QUISITION MANAGER-C Clarita Leigh Work Phone: Start: 05-08-2022 X-ray of left ankle CUSTOMER ACQUISITION MANAGER -C Clarita Leigh Work Phone: Start: 04-01-2018 IP CONSULT TO ORAL SURGERY BRANDON RUSSELL Payers Date Payer Category Payer Unknown 2022 Medicare [id number] 2022 Self-pay 1959 Unknown [id number] 1953 Unknown [id number] 2.16.84 0.1.047386.3.579.2.593 1953 Unknown [id number] 2.16.84 0.1.898765.3.579.2.593 1953 Unknown [id number] 2.16.84 0.1.306946.3.579.2.593 1953 Unknown [id number] 2.16.84 0.1.030518.3.579.2.593 1953 Unknown [id number] 2.16.84 0.1.746625.3.579.2.593 1953 Unknown [id number] 2.16.84 0.1.479322.3.579.2.593 1953 Unknown [id number] 2.16.84 0.1.805593.3.579.2.593 1953 Unknown [id number] 2.16.84 0.1.654167.3.579.2.593 1953 Unknown [id number] 2.16.84 0.1.377942.3.579.2.593 1953 Unknown [id number] 2.16.84 0.1.592239.3.579.2.593 1953 Unknown [id number] 2.16.84 0.1.520964.3.579.2.593 1953 Unknown [id number] 2.16.84 0.1.399845.3.579.2.593 1953 Unknown [id number] 2.16.84 0.1.578994.3.579.2.593 1953 Unknown [id number] 2.16.84 0.1.497643.3.579.2.593 1953 Unknown [id number] 2.16.84 0.1.252505.3.579.2.593 1953 Unknown [id number] 2.16.84 0.1.186456.3.579.2.593 1953 Unknown [id number] 2.16.84 0.1.872763.3.579.2.593 1953 Unknown [id number] 2.16.84 0.1.479599.3.579.2.593 1953 Unknown [id number] 2.16.84 0.1.455383.3.579.2.593 1953 Unknown [id number] 2.16.84 0.1.424769.3.579.2.593 1953 Unknown [id number] 2.16.84 0.1.798013.3.579.2.593 1953 Unknown [id number] 2.16.84 0.1.074244.3.579.2.593 1953 Unknown [id number] 2.16. 840.1.315309.3.579.2.196 Medicare [id number] Unknown O [id number] Unknown Jesus BC/BS [id number] Unknown [id number] 2.16.8 40.1.938345.3.579.2.531 Social History Date Type Detail Facility Tobacco smoking stat [facility] Unknown if ever smoked [facility] Work Phone: Start: 1955 Sex Assigned At Female F [facility] Clinical Notes 11-05-2021 to 11-28-2023 Note Date & Type Note Facility 11-28-2023 Note [facility] Cardiology Clinic Note Chief Complaint: Patient here for follow up labs, stress test, and echo performed last week. Lisinopril was increased to 40mg daily at last apt in September 2023. She was just diagnosed with CONNIE and began cpap therapy last week. Says her DAI is bad . HPI: Mary Vick is a 68 y.o. female She still has exertional shortness of breath. Denies chest pain. Infrequent palpitations with no significant lightheadedness, dizziness or syncope No orthopnea, no paroxysmal external dyspnea, no lower extremity edema The patient was a former smoker Cardiology ROS: Review of Systems Cardiovascular: Positive for chest pain, dyspnea on exertion and palpitations. Respiratory: Positive for cough. Hematologic/Lymphatic: Bruises/bleeds easily. Musculoskeletal: Positive for back pain. Neurological: Positive for headaches and light-headedness. Allergic/Immunologic: Positive for environmental allergies. All other systems reviewed and are negative. Past Medical History She has a past medical history of Abnormal ECG, COPD (chronic obstructive pulmonary disease) (CMS/HCC), and HTN (hypertension). Surgical History She has a past surgical history that includes Hysterectomy; Cardiac catheterization; and Mandible surgery. Social History She reports that she quit [...] Rfl: ARIPiprazole (Abilify) 20 mg tablet, Take 30 mg by mouth in the morning., Disp: , Rfl: ndaelmptcx-gzzpatmpntyjb-lajg 50-325-40 mg tablet, Take 1 tablet by mouth every 4 (four) hours., Disp: , Rfl: calcium carbonate-vitamin D3 500 mg-5 mcg (200 unit) tablet, Take 1 tablet by mouth., Disp: , Rfl: calcium citrate-vitamin D2 315 mg-5 mcg (200 unit) tablet, bone meal-vitamin D2 tablet Take by oral route., Disp: , Rfl: diclofenac (Cataflam) 50 mg tablet, Take 50 mg by mouth in the morning and at bedtime., Disp: , Rfl: FLUoxetine (PROzac) 20 mg tablet, Take 1 tablet 4 times a day by oral route., Disp: , Rfl: ibuprofen 800 mg tablet, Take 1 tablet by mouth every 6 (six) hours if needed., Disp: , Rfl: levothyroxine (Synthroid, Levoxyl) 100 mcg tablet, Take 50 mcg by mouth in the morning., Disp: , Rfl: lisinopril 20 mg tablet, Take 20 mg by mouth in the morning., Disp: , Rfl: lisinopril 40 mg tablet, Take 1 tablet (40 mg) by mouth in the morning., Disp: 30 tablet, Rfl: 11 magnesium oxide (Mag-Ox) 400 mg (241.3 mg magnesium) tablet, Take 2 tablets twice a day by oral route with meals for 90 days., Disp: , Rfl: metoprolol succinate XL (Toprol-XL) 100 mg 24 hr tablet, Take 100 mg by mouth in the morning., Disp: , Rfl: omeprazole (PriLOSEC) [address] capsule, Take 10 mg by mouth before breakfast and before evening meal., Disp: , Rfl: oxyCODONE-acetaminophen (Percocet) 5-325 mg tablet, Take 1 tablet by mouth if needed each day., Disp: , Rfl: rOPINIRole (Requip) 1 mg tablet, 1 (one) time each day at the same time., Disp: , Rfl: tiZANidine (Zanaflex) 4 mg tablet, Take 1 tablet every day by oral route at bedtime., Disp: , Rfl: Last Recorded Vitals BP 158/72 (BP Location: Left arm, Patient Position: Sitting) Pulse 50 Ht 1.575 m (5' 2 ) Wt 74.8 kg (165 lb) SpO2 98% BMI 30.18 kg/m??? Physical Examination: GENERAL: alert and oriented x3, well developed, in no acute distress, appears barrel chested HEAD: atraumatic, normocephalic. EYES: FRANCHESCA, EOMI. NECK: [...] sinus arrhythmia ECG 10/18/2023 Normal sinus rhythm Echocar (more content not included)... [facility] 10-18-2023 Note [facility] Cardiology Clinic Note Chief Complaint: New patient here to establish care. Ref from Dr. Townsend for abnormal EKG. She also wore 7 day Holter monitor, and says she did not work while wearing this. She works at [employer] and says it's very fast paced. States she drinks a 5 Hour Energy shot almost every day. She was admitted to [facility] for migraine recently and was found to have abnormal EKG. Recently has noticed a twinge of chest pain. C/o DAI, palpitations, and lightheadedness. HPI: Mary Vick is a 68 y.o. female With a history of hypertension and hypothyroidism who presents due to an abnormal Holter monitor She was admitted to the [facility] for migraine; a monitor revealed both SVT [...] Plan: Routine labs (more content not included)... [facility] 07-08-2022 Note CONSULTATION PROCEDURE DATE: 07/08/2022 [...] in the clinic in three months. [facility] 06-24-2022 Note CONSULTATION CONSULTATION DATE: 06/24/2022 HISTORY [...] at a time, as she works at [employer]. Current medications include Percocet 5/325 daily, diclofenac [...] pending approval for her knee injections. [facility] 04-08-2022 Note CONSULTATION CONSULTATION DATE: 04/08/2022 HISTORY [...] three months' time unless otherwise indicated. [facility] 03-09-2022 Note CONSULTATION CONSULTATION DATE: [...] to proceed. CC: Natividad Silva CNP [facility] 01-28-2022 Note CONSULTATION CONSULTATION DATE: [...] and re-evaluation of her bursa injection. [facility] 01-28-2022 Note CONSULTATION PROCEDURE DATE: 01/30/2022 PREOPERATIVE [...] be followed up in the clinic. [facility] 11-12-2021 Note PROCEDURE: XR HIPS B IL [...] by: RAUDEL ESTRADA Date: 2021-11-12 07:50 [facility] 11-05-2021 Note CONSULTATION PROCEDURE DATE:11/05/2021 [...] will be followed up in the office. [facility] Signed and Approved by: JOEL RAMON . 11/18/2021 16:24:00 [facility] 11-05-2021 Note CONSULTATION CONSULTATION DATE: [...] time, was working half a day at [employer] and since then has increased to full [...] in three months' time unless otherwise indicated. [facility] Signed and Approved by: JOEL RAMON . 11/18/2021 16:24:00 [facility] Evaluation note No assessment information availa [facility] Work Phone: Summary Purpose Family [...] and content) DATE CREATED AUTHOR 12/21/2017 [facility] DATE CREATED AUTHOR AUTHOR'S ORGANIZ ATION 05/01/[address] [facility] DATE CREATED AUTHOR AUTHOR'S ORGANIZ ATION 05/17/2022 [facility] DATE CREATED AUTHOR AUTHOR'S ORGANIZ ATION 10/06/2022 [facility] DATE CREATED AUTHOR AUTHOR'S ORGANIZ ATION 08/03/2023 [facility] DATE CREATED AUTHOR AUTHOR'S ORGANIZ ATION 11/28/2023 [facility] Care Teams (unrecognized sec tion and [...] BE BASED ON THE PRIMARY CLINICAL RECORDS. [facility]. provides no warranty or guarantee of the accuracy or completeness of information in this document.
[2023-12-06 10:02] VITALS: BP 149/76; PULSE 54; TEMP 36.9; O2SAT 100
[2023-12-06 10:47] VITALS: BP 180/78; PULSE 50; O2SAT 98
[2023-12-06 10:48] VITALS: BP 165/59; PULSE 49; O2SAT 97
[2023-12-06] MEDS: LIDOCAINE HCL 2% 400 MG/20 ML MDV 5 ML INJ (10:58)
[2023-12-06] MEDS: BUPIVACAINE HCL 0.25% PF 25 MG/10 ML VIAL 4 ML INJ (10:58)
[2023-12-06] MEDS: METHYLPREDNISOLONE ACETATE 40 MG/ML VIAL INJ (10:59)
--- NOTE | 2023-12-06 11:06 | W.PM.PROCNOT ---
Date of procedure: 12/06/23 Pre-op diagnosis: Lumbar spondylosis Post-op diagnosis: same as pre-op Procedure: Right Lumbar 1/2, 2/3 Radiofrequency ablation Under fluoroscopic guidance Rhizotomy was created using radio frequency ablation at 80?C for 90 seconds 1 to 2 lesions created at each site. Post lesioning injection of 2 mL each of 0.25% Marcaine and 2% lidocaine with Depo-Medrol 40mg. 0.5 to 1 mL injected at each site IV in place no If Intravenous fluids: NS at KVO Anesthesia local 2% lidocaine for Anesthesia Other: local Timeout process compliant After informed consent obtained.Patient brought to the procedure room placed in the prone position skin overlying the area was prepped and draped in a sterile fashion using betadine. 25 gauge needle was used to create a skin wheal over each of the targeted areas utilizing 2% lidocaine. A rhizotomy needle with a 10 mm active tip was inserted over each of the anesthetized areas and directed towards each of the medial branches accomplished under fluoroscopic guidance. after encountering the same we had positive sensory stimulation, negative motor stimulation was noted. lesions were then created. Post lesioning, steroid solution was injected needles removed. Patient was transferred to recovery room in stable condition to be discharged home after meeting criteria. Anesthesia: Local Surgeon: Varun Vicente Condition: stable
== END 2023-12-06 11:05 | disposition home or self-care (01) ==
LOC: SURGOUT 09:08
PROVIDERS: PCP Nurse Practitioner Family; Visit Provider Anesthesiology Pain Medicine
DX: M47.816 Spondylosis without myelopathy or radiculopathy, lumbar region (principal)
CPT/HCPCS: 64635; 64636; J0665; J1010

== ENCOUNTER 2023-12-20 08:23 | Day surgery (SDC) | payer MEDICARE, SELFPAY ==
--- OUTSIDE RECORDS SUMMARY | 2023-12-20 08:26 | XMS_ITS | CCD ---
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 Performed By: #### B MAT MACHINE OPERATOR, HSTROPN, CMP #### [facility] [address] [address] [address] Deborah Mohan Anti-PR3 Antibodies <0.2 Normal 0.0-0.9 [facility] Comment on above: Result Comment: Perf ormed at: BN Performed By: #### B MAT MACHINE OPERATOR, HSTROPN, CMP #### [facility] [address] [address] [address] Deborah Mohan Atypical pANCA 1:160 Critically high Neg:<1:20 [facility] Comment on above: Result Comment: The atypical pANCA pattern has been observed in a significant percentage of patients with ulcerative colitis, primary sclerosing cholangitis and autoimmune hepatitis. Performed at: CB Performed By: #### B MAT MACHINE OPERATOR, HSTROPN, CMP #### [facility] [address] [address] [address] Deborah Mohan Cytoplasmic (C-ANCA) <1:20 Normal Neg:<1:20 [facility] Comment on above: Result Comment: Perf ormed at: CB Performed By: #### B PHILLIP JONES, CMP #### [facility] [address] [address] [address] Deborah Mohan Perinuclear (P-ANCA) <1:20 Normal Neg:<1:20 [facility] Comment on above: Result Comment: [...] By: #### B PHILLIP JONES, CMP #### [facility] [address] [address] [address] Deborah Mohan ANTISCLERODERMA ABon 022 Antiscleroderma-70 Antibodies <0.2 Normal 0.0-0.9 [facility] Comment on above: Performed By: #### A NARF #### [facility] [address] [address] [address] CHEST WO CONon [...] incidental findings, as described above. Normal [facility] CYCLIC CITRULLINATED PEPTIDE AB (CCP)on 03-09-2022 CCP Antibodies IgG/IgA 6 units Normal 0-19 [facility] Comment on above: Result Comment: Nega tive <20 Weak positive 20 - 39 Moderate positive 40 - 59 Strong positive >59 Performed By: #### B MAT MACHINE OPERATOR, HSTROPN, CMP #### [facility] [address] [place], [place] [address] Dr. Deborah Mohan IGG SUBCLASSES (1-4) AND TOT Kade 03-09-2022 IgG, Subclass 1 448 mg/dL Normal 248-810 [facility] Comment on above: Performed By: #### B MAT MACHINE OPERATOR, HSTROPN, CMP #### [facility] [address] [address] [address] Deborah Mohan IgG, Subclass 2 253 mg/dL Normal 130-555 [facility] Comment on above: Performed By: #### B MAT MACHINE OPERATOR, HSTROPN, CMP #### [facility] [address] [address] [address] Deborah Mohan IgG, Subclass 3 95 mg/dL Normal 15-102 [facility] Comment on above: Performed By: #### B MAT MACHINE OPERATOR, HSTROPN, CMP #### [facility] [address] [address] [address] Deborah Mohan IgG, Subclass 4 10 mg/dL Normal 2-96 [facility] Comment on above: Performed By: #### B MAT MACHINE OPERATOR, HSTROPN, CMP #### [facility] [address] [address] [address] Deborah Mohan Immunoglobulin G, Qn, Serum 658 mg/dL Normal 586-1602 [facility] Comment on above: Performed By: #### B MAT MACHINE OPERATOR, HSTROPN, CMP #### [facility] [id number] Deborah Mohan IMMUNOGLOBULIN E, TOTALon Immunoglobulin E, Total 5 IU/mL Critically low 6-495 [facility] Comment on above: Performed By: #### I GETOT ####[facility] [address] [place], [place] [address]NpDr. Deborah Mohan MICHELL EIA W/REFLEX 5 BIOMARKER Son 03-08-2022 MICHELL Direct Negative Normal Negative [facility] Comment on above: Performed By: #### A NARF #### [facility] [address] [address] [address] Deborah Mohan ANGIOTENSION-CONVERTING ENZY ME (FRANCESCO)on 03-08-2022 FRANCESCO 32 U/L Normal 14-82 [facility] Comment on above: Performed By: #### A NGIOC ####[facility] [address] [place] [address]DrAnkur Mohan ANTIGLOMERULAR BASEMENT MEMB ROMMEL ABSon 03-08-2022 Anti-GBM Antibodies <0.2 Normal 0.0-0.9 [facility] Comment on above: Performed By: #### A GBM #### [facility] [address] [address] [address] Deborah Mohan IMMUNOGLOBULIN IGA QUANTITIA VEon 03-06-2022 Immunoglobulin A, Qn, Serum 229 mg/dL Normal 87-352 [facility] Comment on above: Performed By: #### A NARF #### [facility] [address] [place] [address] [address] Deborah Mohan IMMUNOGLOBULIN IGM QUANTITAT IVEon 03-06-2022 Immunoglobulin M, Qn, Serum 83 mg/dL Normal 26-217 [facility] Comment on above: Performed By: #### B MAT MACHINE OPERATOR, HSTROPN, CMP #### [facility] [address] [address] [address] Deborah Mohan RHEUMATOID FACTORon 03-06-20 22 RA Latex Turbid. 10.9 IU/mL Normal <14.0 [facility] Comment on above: Performed By: #### R F ####[facility] [address] [place] [address]Dr. Deborah Mohan CREATININEon 03-05-2022 Creatinine [Mass/Vol] 1.38 mg/dL Critically high 0.55-1.02 [facility] Comment on above: Performed By: #### C MELVINA ####[facility] [address] [place] [address]DrAnkur Mohan EGFR-AF SENEGALESE 46 mL/min/1.73m2 Critically low >=60 [facility] Comment on above: Performed By: #### C MELVINA ####[facility] [address] [place] [address]Dr. Deborah Mohan EGFR-NON AF SENEGALESE 38 mL/min/1.73m2 Critically low >=60 [facility] Comment on above: Performed By: #### C MELVINA ####[facility] [address] [place] [address]Dr. Deborah Mohan SED RATE WESTERGRENon 2021 SED RATE 92 mm/hr Critically high <=30 [facility] Comment on above: Performed By: #### B MAT MACHINE OPERATOR, HSTROPN, CMP #### [facility] [address] [place] [address] [address] Deborah Mohan XR DEXA BONE DENSITYon [...] by: ROBERT CONDON Date: 2022-03-05 16:56 Normal [facility] XR CHEST 1 Von 03-01-2022 [...] by: ROBERT NOVAK Date: 2022-02-28 22:27 Normal [facility] XR KNEE LUANA 4V or [...] RAUDEL ESTRADA Date: 2022-01-29 11:09 Normal [facility] CBC AUTO DIFFon 11-29-2021 BASO # 0.1 103/ul Normal 0.0-0.1 [facility] Comment on above: Performed By: #### C BC ####[facility] [address] [place] [address]Dr. Deborah Mohan Basophils/100 WBC (Bld) 0.8 % Normal 0.2-2.0 [facility] Comment on above: Performed By: #### C BC ####[facility] [address] [place] [address]DrAnkur Mohan EO # 0.3 103/ul Normal 0.0-0.7 [facility] Comment on above: Performed By: #### C BC ####[facility] [address] [place] [address]Dr. Deborah Mohan Eosinophils/100 WBC (Bld) 2.2 % Normal 0.9-7.0 [facility] Comment on above: Performed By: #### C BC ####[facility] [address] [place] [address]DrAnkur Mohan Erythrocyte distribution width (RBC) [Ratio] 21.2 % Critically high 11.0-15.0 [facility] Comment on above: Performed By: #### C BC ####[facility] [address] [place] [address]DrAnkur Mohan Hematocrit (Bld) [Volume fraction] 33.2 % Critically low 36.0-48.0 [facility] Comment on above: Performed By: #### C BC ####[facility] [address] [place] [address]DrAnkur Mohan Hemoglobin (Bld) [Mass/Vol] 10.3 g/dL Critically low 12.0-16.0 [facility] Comment on above: Performed By: #### C BC ####[facility] [address] [place], [place] [address]DrAnkur Mohan IG # 0.11 10e3/ul Critically high 0.00-0.03 [facility] Comment on above: Performed By: #### C BC ####[facility] [address] [place], [place] [address]DrAnkur Mohan IG % 0.9 % Critically high 0.0-0.5 [facility] Comment on above: Performed By: #### C BC ####[facility] [address] [place], [place] [address]DrAnkur Mohan LYMPH # 2.2 103/ul Normal 1.2-3.8 [facility] Comment on above: Performed By: #### C BC ####[facility] [address] [place], [place] [address]DrAnkur Mohan Lymphocytes/100 WBC (Bld) 18.5 % Critically low 20.5-60.0 [facility] Comment on above: Performed By: #### C BC ####[facility] [address] [place], [place] [address]DrAnkur Mohan MANUAL DIFF REQ NO Normal [facility] Comment on above: Performed By: #### C BC ####[facility] [address] [place], [place] [address]DrAnkur Mohan MCH (RBC) [Entitic mass] 26.3 pg Critically low 26.7-34.0 [facility] Comment on above: Performed By: #### C BC ####[facility] [address] [place], [place] [address]DrAnkur Mohan MCHC (RBC) [Mass/Vol] 31.0 g/dL Normal 29.9-35.2 [facility] Comment on above: Performed By: #### C BC ####[facility] [address] [place], [place] [address]DrAnkur Mohan MCV (RBC) [Entitic vol] 84.9 fL Normal 81.0-99.0 [facility] Comment on above: Performed By: #### C BC ####[facility] [address] [place], [place] [address]DrAnkur Mohan MONO # 0.6 103/ul Normal 0.3-0.8 [facility] Comment on above: Performed By: #### C BC ####[facility] [address] [place], [place] [address]DrAnkur Mohan Monocytes/100 WBC (Bld) 5.3 % Normal 1.7-12.0 [facility] Comment on above: Performed By: #### C BC ####[facility] [address] [place], [place] [address]DrAnkur Mohan NEUT # 8.4 103/ul Critically high 1.4-6.5 [facility] Comment on above: Performed By: #### C BC ####[facility] [address] [place], [place] [address]DrAnkur Mohan Neutrophils/100 WBC (Bld) 72.3 % Normal 43.0-75.0 [facility] Comment on above: Performed By: #### C BC ####[facility] [address] [place], [place] [address]DrAnkur Mohan Platelet mean volume (Bld) [Entitic vol] 10.1 fL Normal 9.5-13.5 [facility] Comment on above: Performed By: #### C BC ####[facility] [address] [place], [place] [address]DrAnkur Mohan PLT 351 103/ul Normal 150-450 [facility] Comment on above: Performed By: #### C BC ####[facility] [address] [place], [place] [address]DrAnkur Mohan RBC 3.91 106/ul Critically low 4.20-5.40 [facility] Comment on above: Performed By: #### C BC ####[facility] [address] [place], [place] [address]Cs. Deborah Mohan WBC 11.6 103/ul Critically high 4.0-11.0 [facility] Comment on above: Performed By: #### C BC ####[facility] [address] [place], [place] [address]Su. Deborah Mohan CTA CHEST WO W CONon [...] 2. Bilateral peripheral fibrosis and/or scarring with bloo-cm-wmewjzew groundglass densities. The groundglass densities are slightly decreased compared to the prior scan. 3. Old calcified granulomas in the chest and abdomen. 4. Large hiatal hernia. 5. Moderate diffuse osteopenia. Electronically authenticated by: BERNARDO DENNY Date: 2021-11-29 20:31 Normal [facility] D-DIMERon 11-29-2021 D-DIMER 1.14 mg/L FEU Critically high <=0.59 [facility] Comment on above: Performed By: #### A NARF #### [facility] [address] [place] [address] Dr. Deborah Mohan D-DIMER COMMENTS SEE BELOW Normal [facility] Comment on above: Result Comment: Incr eases [...] hospitalization. Performed By: #### A NARF #### [facility] [address] [place] [address] Dr. Deborah Mohan PROF CHEM 8 (BAS METB)on Anion gap [Moles/Vol] 11.7 mmol/L Normal [facility] Comment on above: Performed By: #### B KYLEE, HSTROPN #### [facility] [address] [place] [address] [address] Deborah Mohan Calcium [Mass/Vol] 8.7 mg/dL Normal 8.5-10.1 [facility] Comment on above: Performed By: #### B KYLEE, HSTROPN #### [facility] [address] [place] [address] [address] Deborah Mohan Chloride [Moles/Vol] 107 mmol/L Normal 98-107 [facility] Comment on above: Performed By: #### B KYLEE, HSTROPN #### [facility] [address] [place] [address] [address] Deborah Mohan CO2 [Moles/Vol] 25.3 mmol/L Normal 21.0-32.0 [facility] Comment on above: Performed By: #### B MP, HSTROPN #### [facility] [address] [place] [address] [address] Deborah Mohan Creatinine [Mass/Vol] 0.98 mg/dL Normal 0.55-1.02 [facility] Comment on above: Performed By: #### B MP, HSTROPN #### [facility] [address] [place] [address] [address] Deborah Mohan EGFR-AF SENEGALESE >60 Normal >=60 [facility] Comment on above: Performed By: #### B MP, HSTROPN #### [facility] [address] [address] [address] Deborah Mohan EGFR-NON AF SENEGALESE 56 mL/min/1.73m2 Critically low >=60 [facility] Comment on above: Performed By: #### B MP, HSTROPN #### [facility] [address] [place] [address] [address] Deborah Mohan Glucose [Mass/Vol] 105 mg/dL Normal 74-106 [facility] Comment on above: Performed By: #### B MP, HSTROPN #### [facility] [address] [place] [address] [address] Deborah Mohan Potassium [Moles/Vol] 4.0 mmol/L Normal 3.5-5.1 [facility] Comment on above: Performed By: #### B MP, HSTROPN #### [facility] [address] [place] [address] [address] Deborah Mohan Sodium [Moles/Vol] 140 mmol/L Normal 136-145 [facility] Comment on above: Performed By: #### B MP, HSTROPN #### [facility] [address] [place] [address] [address] Deborah Mohan Urea nitrogen [Mass/Vol] 21.0 mg/dL Critically high 7.0-18.0 [facility] Comment on above: Performed By: #### B KYLEE, HSTROPN #### [facility] [address] [place], [place] [address] Dr. Deborah Mohan Urea nitrogen/Creatinine [Mass ratio] 21.4 mg/mg Normal [facility] Comment on above: Performed By: #### B KYLEE, HSTROPN #### [facility] [address] [place], [place] [address] Dr. Deborah Mohan TROPONIN, HIGH SENSITIVITYon 11-29-2021 HSTROP 4.5 pg/mL Normal 4.0-51.3 [facility] Comment on above: Result Comment: CUT- OFF POINTS HAVE BEEN ESTABLISHED BASED ON THE FOURTH UNIVERSAL DEFINITIONS OF MYOCARDIAL INFARCTION. THE UPPER REFERENCE LIMIT (URL) OF TROPONIN, DEFINED THE 99TH PERCENTILE OF cTnI DISTRIBUTION IN A REFERENCE POPULATION, HAS BEEN CONFIRMED THE DECISION THRESHOLD FOR SC DIAGNOSIS. Performed By: #### H STROPN ####[facility] [address] [place], [place] [address]WvDr. Deborah Mohan HSTROP 6.0 pg/mL Normal 4.0-51.3 [facility] Comment on above: Result Comment: CUT- OFF POINTS HAVE BEEN ESTABLISHED BASED ON THE FOURTH UNIVERSAL DEFINITIONS OF MYOCARDIAL INFARCTION. THE UPPER REFERENCE LIMIT (URL) OF TROPONIN, DEFINED THE 99TH PERCENTILE OF cTnI DISTRIBUTION IN A REFERENCE POPULATION, HAS BEEN CONFIRMED THE DECISION THRESHOLD FOR SC DIAGNOSIS. Performed By: #### B KYLEE HSTROPN #### [facility] [address] [place], [place] [address] Dr. Deborah Mohan XR CHEST 1 Von [...] KANDY BARRY Date: 2021-11-29 19:20 Normal [facility] XR LSPINE W_OBLS AND FLEX_EX Ton [...] RAUDEL ESTRADA Date: 2021-11-12 07:56 Normal [facility] CALCIUMon 11-11-2021 Calcium [Mass/Vol] 9.0 mg/dL Normal 8.5-10.1 [facility] Comment on above: Performed By: #### A NARF #### [facility] [address] [place] [address] [address] Deborah Mohan CREATININEon 11-11-2021 Creatinine [Mass/Vol] 1.47 mg/dL Critically high 0.55-1.02 [facility] Comment on above: Performed By: #### A NARF #### [facility] [address] [place] [address] [address] Deborah Mohan EGFR-AF SENEGALESE 43 mL/min/1.73m2 Critically low >=60 [facility] Comment on above: Performed By: #### A NARF #### [facility] [address] [place] [address] [address] Deborah Mohan EGFR-NON AF SENEGALESE 35 mL/min/1.73m2 Critically low >=60 [facility] Comment on above: Performed By: #### A NARF #### [facility] [address] [address] [address] Deborah Mohan Encounters Encounter Date Encounter Type Care Provider Facility Start: 11-28-2023 End: 11-28-[address] [facility] Start: 10-18-2023 End: 10-18-[address] [facility] Start: 08-01-2023 End: 08-02-2023 ambulatory Gabriella [...] Start: 05-08-2022 End: 05-08-2022 ambulatory Clarita Leigh Facility:[facility] Start: 05-08-2022 End: 05-08-2022 ambulatory TONGUE PRESSER-C Clarita Leigh Work Phone: [facility] Work Phone: Start: 05-08-2022 End: 05-08-2022 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 procedure TONGUE PRESSER-C Clarita Leigh Work Phone: [facility] Start: 04-08-2022 [...] 04-01-2018 Emergency department patient visit BRANDON RUSSELL [facility] Start: 12-11-2017 End: 12-11-2017 Emergency department patient visit ROBERT HURLEY Facility:[facility] Procedures Date Procedure Procedure Detail Performing Clinician Start: 05-08-2022 Plain X-ray of left wrist TONGUE PRESSER-C Clarita Leigh Work Phone: Start: 05-08-2022 X-ray of left ankle TONGUE PRESSER -C Clarita Leigh Work Phone: Start: 04-01-2018 IP CONSULT TO ORAL SURGERY BRANDON RUSSELL Payers Date Payer Category Payer Unknown 2022 Medicare [id number] 2022 Self-pay 1959 Unknown [id number] 1955 Unknown [id number] 2.16.84 0.1.831162.3.579.2.593 1953 Unknown [id number] 2.16.84 0.1.165536.3.579.2.593 1953 Unknown [id number] 2.16.84 0.1.923738.3.579.2.593 1953 Unknown [id number] 2.16.84 0.1.458432.3.579.2.593 1953 Unknown [id number] 2.16.84 0.1.923754.3.579.2.593 1953 Unknown [id number] 2.16.84 0.1.355888.3.579.2.593 1953 Unknown [id number] 2.16.84 0.1.921749.3.579.2.593 1953 Unknown [id number] 2.16.84 0.1.085923.3.579.2.593 1953 Unknown [id number] 2.16.84 0.1.149484.3.579.2.593 1953 Unknown [id number] 2.16.84 0.1.544679.3.579.2.593 1953 Unknown [id number] 2.16.84 0.1.140452.3.579.2.593 1953 Unknown [id number] 2.16.84 0.1.450159.3.579.2.593 1953 Unknown [id number] 2.16.84 0.1.016736.3.579.2.593 1953 Unknown [id number] 2.16.84 0.1.900540.3.579.2.593 1953 Unknown [id number] 2.16.84 0.1.463327.3.579.2.593 1953 Unknown [id number] 2.16.84 0.1.646001.3.579.2.593 1953 Unknown [id number] 2.16.84 0.1.555101.3.579.2.593 1953 Unknown [id number] 2.16.84 0.1.232504.3.579.2.593 1953 Unknown [id number] 2.16.84 0.1.120682.3.579.2.593 1953 Unknown [id number] 2.16.84 0.1.500447.3.579.2.593 1953 Unknown [id number] 2.16.84 0.1.891430.3.579.2.593 1953 Unknown [id number] 2.16.84 0.1.613860.3.579.2.593 1953 Unknown [id number] 2.16. 840.1.286034.3.579.2.196 Medicare [id number] Unknown O [id number] Unknown [employer]/BS [id number] Unknown [id number] 2.16.8 40.1.139824.3.579.2.531 Social History Date Type Detail Facility Tobacco smoking stat [facility] Unknown if ever smoked [facility] Work Phone: Start: 1955 Sex Assigned At Female F [facility] Clinical Notes 11-05-2021 to 11-28-2023 Note Date & Type Note Facility 11-28-2023 Note [facility] Clinic Note Chief Complaint: [...] mouth in the morning., Disp: , Rfl: bghgftbnrm-kcesfwtvosogg-lqoa 50-325-40 mg tablet, Take 1 tablet by [...] sinus rhythm Echocar (more content not included)... [facility] 10-18-2023 Note [facility] Cardiology Clinic Note Chief Complaint: New patient here to establish care. Ref from Dr. Townsend for abnormal EKG. She also wore 7 day Holter monitor, and says she did not work while wearing this. She works at [employer] and says it's very fast paced. States she drinks a 5 [employer] shot almost every day. She was admitted to [facility] for migraine recently and was found to have abnormal EKG. Recently has noticed a twinge of chest pain. C/o DAI, palpitations, and lightheadedness. HPI: Mary Vick is a 68 y.o. female With a history of hypertension and hypothyroidism who presents due to an abnormal Holter monitor She was admitted to the [facility] for migraine; a monitor revealed both [...] Plan: Routine labs (more content not included)... [facility] 07-08-2022 Note CONSULTATION PROCEDURE DATE: 07/08/2022 HISTORY [...] in the clinic in three months. [facility] 06-24-2022 Note CONSULTATION CONSULTATION DATE: 06/24/2022 [...] at a time, as she works at [employer]. Current medications include Percocet 5/325 daily, diclofenac [...] pending approval for her knee injections. [facility] 04-08-2022 Note CONSULTATION CONSULTATION DATE: 04/08/2022 [...] three months' time unless otherwise indicated. [facility] 03-09-2022 Note CONSULTATION CONSULTATION DATE: 03/09/2022 [...] to proceed. CC: Natividad Silva CNP [facility] 01-28-2022 Note CONSULTATION CONSULTATION DATE: 01/30/2022 [...] and re-evaluation of her bursa injection. [facility] 01-28-2022 Note CONSULTATION PROCEDURE DATE: 01/30/2022 [...] be followed up in the clinic. [facility] 11-12-2021 Note PROCEDURE: XR HIPS B [...] by: RAUDEL ESTRADA Date: 2021-11-12 07:50 [facility] 11-05-2021 Note CONSULTATION PROCEDURE DATE:11/05/2021 PREOPERATIVE [...] will be followed up in the office. [facility] Signed and Approved by: JOEL RAMON . 11/18/2021 16:24:00 [facility] 11-05-2021 Note CONSULTATION CONSULTATION DATE: 11/05/2021 [...] time, was working half a day at [employer] and since then has increased to full [...] in three months' time unless otherwise indicated. [facility] Signed and Approved by: JOEL RAMON . 11/18/2021 16:24:00 [facility] Evaluation note No assessment information availa [facility] Work Phone: Summary Purpose Family History [...] and content) DATE CREATED AUTHOR 12/21/2017 [facility] DATE CREATED AUTHOR AUTHOR'S ORGANIZ ATION 05/01/2018 [facility] DATE CREATED AUTHOR AUTHOR'S ORGANIZ ATION 05/17/2022 [facility] DATE CREATED AUTHOR AUTHOR'S ORGANIZ ATION 10/06/2022 [facility] DATE CREATED AUTHOR AUTHOR'S ORGANIZ ATION 08/03/2023 [facility] DATE CREATED AUTHOR AUTHOR'S ORGANIZ ATION 11/28/2023 [facility] Care Teams (unrecognized sec tion and content) [...] BE BASED ON THE PRIMARY CLINICAL RECORDS. [facility] [employer] [facility]. provides no warranty or guarantee of the accuracy or completeness of information in this document.
[2023-12-20 08:41] VITALS: BP 133/59; PULSE 65; TEMP 35.9; O2SAT 98
[2023-12-20 09:21] VITALS: BP 135/62; PULSE 56; O2SAT 97
[2023-12-20 09:22] VITALS: BP 145/62; PULSE 54; O2SAT 95
[2023-12-20] MEDS: BUPIVACAINE HCL 0.25% PF 25 MG/10 ML VIAL 4 ML INJ (09:35)
[2023-12-20] MEDS: LIDOCAINE HCL 2% 400 MG/20 ML MDV 10 ML INJ (09:36)
[2023-12-20] MEDS: METHYLPREDNISOLONE ACETATE 40 MG/ML VIAL INJ (09:37)
--- NOTE | 2023-12-20 10:03 | W.PM.PROCNOT ---
Date of procedure: 12/20/23 Pre-op diagnosis: lumbar spondylosis Post-op diagnosis: same as pre-op Procedure: Left lumbar 1/2, 2/3 Radiofrequency ablation Under fluoroscopic guidance Rhizotomy was created using radio frequency ablation at 80?C for 90 seconds 1 to 2 lesions created at each site. Post lesioning injection of 2 mL each of 0.25% Marcaine and 2% lidocaine with Depo-Medrol 40mg. 0.5 to 1 mL injected at each site Timeout process compliant After informed consent obtained.Patient brought to the procedure room placed in the prone position skin overlying the area was prepped and draped in a sterile fashion using betadine. 25 gauge needle was used to create a skin wheal over each of the targeted areas utilizing 2% lidocaine. A rhizotomy needle with a 10 mm active tip was inserted over each of the anesthetized areas and directed towards each of the medial branches accomplished under fluoroscopic guidance. after encountering the same we had positive sensory stimulation, negative motor stimulation was noted. lesions were then created. Post lesioning, steroid solution was injected needles removed. Patient was transferred to recovery room in stable condition to be discharged home after meeting criteria. Anesthesia: MAC and Local Surgeon: Varun Vicente Condition: stable Disposition: PACU
== END 2023-12-20 09:39 | disposition home or self-care (01) ==
LOC: SURGOUT 08:23
PROVIDERS: PCP Nurse Practitioner Family; Visit Provider Anesthesiology Pain Medicine
DX: M47.816 Spondylosis without myelopathy or radiculopathy, lumbar region (principal)
CPT/HCPCS: 64635; 64636; J0665; J1010

== ENCOUNTER 2024-01-18 13:41 | Outpatient (OUT) | payer MEDICARE, SELFPAY ==
[2024-01-18 14:02] LABS: Basophils Absolute Auto 0.1 10^3/uL (0.0-0.1); Basophils Percent Auto 0.8 % (0.2-2.0); Eosinophils Absolute Auto 0.2 10^3/uL (0.0-0.7); Eosinophils Percent Auto 3.4 % (0.9-7.0); Hematocrit 31.1 % (36.0-48.0); Hemoglobin 9.7 g/dL (12.0-16.0); Immature Granulocytes Abs Auto 0.03 10^3/uL (0.00-0.03); Immature Granulocytes Pct Auto 0.5 % (0.0-0.5); Lymphocytes Absolute Auto 1.6 10^3/uL (1.2-3.8); Lymphocytes Percent Auto 24.7 % (20.5-60.0); Mean Corpuscular HGB Conc 31.2 g/dL (29.9-35.2); Mean Corpuscular Hemoglobin 26.1 pg (26.7-34.0); Mean Corpuscular Volume 83.8 fL (81.0-99.0); Monocytes Absolute Auto 0.5 10^3/uL (0.3-0.8); Monocytes Percent Auto 7.9 % (1.7-12.0); Neutrophils Absolute Auto 4.1 10^3/uL (1.4-6.5); Neutrophils Percent Auto 62.7 % (43.0-75.0); Platelet Count 310 10^3/uL (150-450); Red Blood Count 3.71 10^6/uL (4.20-5.40); Red Cell Distribution Width 18.6 % (11.0-15.0); White Blood Count 6.6 10^3/uL (4.0-11.0)
--- OUTSIDE RECORDS SUMMARY | 2024-01-18 14:08 | XMS_ITS | CCD ---
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 Deborah Mohan ANTI NEUTROPHIL CYTOPLASMIC AB (ANCA) PRon 03-09-2022 Anti-MPO Antibodies <0.2 Normal 0.0-0.9 [facility] Comment on above: Result Comment: Perf ormed at: BN Performed By: #### B GRAPE GROWER, HSTROPN, CMP #### [facility] [address] [address] [address] Deborah Mohan Anti-PR3 Antibodies <0.2 Normal 0.0-0.9 [facility] Comment on above: Result Comment: Perf ormed at: BN Performed By: #### B GRAPE GROWER, HSTROPN, CMP #### [facility] [address] [place] [address] [address] Deborah Mohan Atypical pANCA 1:160 Critically high Neg:<1:20 [facility] Comment on above: Result Comment: The atypical pANCA pattern has been observed in a significant percentage of patients with ulcerative colitis, primary sclerosing cholangitis and autoimmune hepatitis. Performed at: CB Performed By: #### B GRAPE GROWER, HSTROPN, CMP #### [facility] [address] [address] [address] Deborah Mohan Cytoplasmic (C-ANCA) <1:20 Normal Neg:<1:20 [facility] Comment on above: Result Comment: Perf ormed at: CB Performed By: #### B PHILLIP JONES, CMP #### [facility] [address] [place] [address] [address] Deborah Mohan Perinuclear (P-ANCA) <1:20 Normal Neg:<1:20 [facility] Comment on above: Result Comment: The presence of positive fluorescence exhibiting P-ANCA or C-ANCA patterns alone is not specific for the diagnosis of [place]'s Granulomatosis (WG) or microscopic polyangiitis. Decisions about treatment should not be based solely on ANCA IFA results. The International ANCA Group Consensus recommends follow up testing of positive sera with both CO-3 and MPO-ANCA enzyme immunoassays. As many as 5% serum samples are positive only by EIA. Ref. AM J Clin Pathol 1999;111:507-513. Performed at: CB Performed By: #### B PHILLIP JONES, CMP #### [facility] [address] [address] [address] Deborah Mohan ANTISCLERODERMA ABon 022 Antiscleroderma-70 Antibodies <0.2 Normal 0.0-0.9 [facility] Comment on above: Performed By: #### A NARF #### [facility] [address] [address] [address] CHEST WO CONon [...] incidental findings, as described above. Normal [facility] CYCLIC CITRULLINATED PEPTIDE AB (CCP)on 03-09-2022 CCP Antibodies IgG/IgA 6 units Normal 0-19 [facility] Comment on above: Result Comment: Nega tive <20 Weak positive 20 - 39 Moderate positive 40 - 59 Strong positive >59 Performed By: #### B GRAPE GROWER, HSTROPN, CMP #### [facility] [address] [place], [place] [address] Dr. Deborah Mohan IGG SUBCLASSES (1-4) AND TOT Kade 03-09-2022 IgG, Subclass 1 448 mg/dL Normal 248-810 [facility] Comment on above: Performed By: #### B GRAPE GROWER, HSTROPN, CMP #### [facility] [address] [place] [address] [address] Deborah Mohan IgG, Subclass 2 253 mg/dL Normal 130-555 [facility] Comment on above: Performed By: #### B GRAPE GROWER, HSTROPN, CMP #### [facility] [address] [place] [address] [address] Deborah Mohan IgG, Subclass 3 95 mg/dL Normal 15-102 [facility] Comment on above: Performed By: #### B GRAPE GROWER, HSTROPN, CMP #### [facility] [address] [place] [address] [address] Deborah Mohan IgG, Subclass 4 10 mg/dL Normal 2-96 [facility] Comment on above: Performed By: #### B GRAPE GROWER, HSTROPN, CMP #### [facility] [address] [place] [address] [address] Deborah Mohan Immunoglobulin G, Qn, Serum 658 mg/dL Normal 586-1602 [facility] Comment on above: Performed By: #### B GRAPE GROWER, HSTROPN, CMP #### [facility] [address] [place] [id number] [address] Deborah Mohan IMMUNOGLOBULIN E, TOTALon Immunoglobulin E, Total 5 IU/mL Critically low 6-495 [facility] Comment on above: Performed By: #### I GETOT ####[facility] [address] [place], [place] [address]HfDr. Deborah Mohan MICHELL EIA W/REFLEX 5 BIOMARKER Son 03-08-2022 MICHELL Direct Negative Normal Negative [facility] Comment on above: Performed By: #### A NARF #### [facility] [address] [place] [address] [address] Deborah Mohan ANGIOTENSION-CONVERTING ENZY ME (FRANCESCO)on 03-08-2022 FRANCESCO 32 U/L Normal 14-82 [facility] Comment on above: Performed By: #### A NGIOC ####[facility] [address] [place] [address]DrAnkur Mohan ANTIGLOMERULAR BASEMENT MEMB ROMMEL ABSon 03-08-2022 Anti-GBM Antibodies <0.2 Normal 0.0-0.9 [facility] Comment on above: Performed By: #### A GBM #### [facility] [address] [place] [address] [address] Deborah Mohan IMMUNOGLOBULIN IGA QUANTITIA VEon 03-06-2022 Immunoglobulin A, Qn, Serum 229 mg/dL Normal 87-352 [facility] Comment on above: Performed By: #### A NARF #### [facility] [address] [place] [address] [address] Deborah Mohan IMMUNOGLOBULIN IGM QUANTITAT IVEon 03-06-2022 Immunoglobulin M, Qn, Serum 83 mg/dL Normal 26-217 [facility] Comment on above: Performed By: #### B GRAPE GROWER, HSTROPN, CMP #### [facility] [address] [place] [address] [address] Deborah Mohan RHEUMATOID FACTORon 03-06-20 22 RA Latex Turbid. 10.9 IU/mL Normal <14.0 [facility] Comment on above: Performed By: #### R F ####[facility] [address] [place] [address]Dr. Deborah Mohan CREATININEon 03-05-2022 Creatinine [Mass/Vol] 1.38 mg/dL Critically high 0.55-1.02 [facility] Comment on above: Performed By: #### C MELVINA ####[facility] [address] [place] [address]DrAnkur Mohan EGFR-AF KUWAITI 46 mL/min/1.73m2 Critically low >=60 [facility] Comment on above: Performed By: #### C MELVINA ####[facility] [address] [place] [id number]. Deborah Mohan EGFR-NON AF KUWAITI 38 mL/min/1.73m2 Critically low >=60 [facility] Comment on above: Performed By: #### C MELVINA ####[facility] [address] [place] [id number]. Deborah Mohan SED RATE WESTERGRENon 2021 SED RATE 92 mm/hr Critically high <=30 [facility] Comment on above: Performed By: #### B GRAPE GROWER, HSTROPN, CMP #### [facility] [address] [place] [address] [address] Deborah Mohan XR DEXA BONE DENSITYon [...] by: ROBERT CONDON Date: 2022-03-05 16:56 Normal [facility] XR CHEST 1 Von 03-01-2022 XR [...] by: ROBERT NOVAK Date: 2022-02-28 22:27 Normal [facility] XR KNEE LUANA 4V or >on [...] RAUDEL ESTRADA Date: 2022-01-29 11:09 Normal [facility] CBC AUTO DIFFon 11-29-2021 BASO # 0.1 103/ul Normal 0.0-0.1 [facility] Comment on above: Performed By: #### C BC ####[facility] [address] [place] [address]Dr. Deborah Mohan Basophils/100 WBC (Bld) 0.8 % Normal 0.2-2.0 [facility] Comment on above: Performed By: #### C BC ####[facility] [address] [place] [address]DrAnkur Mohan EO # 0.3 103/ul Normal 0.0-0.7 [facility] Comment on above: Performed By: #### C BC ####[facility] [address]vf[address] [place] [address]Dr. Deborah Mohan Eosinophils/100 WBC (Bld) 2.2 % Normal 0.9-7.0 [facility] Comment on above: Performed By: #### C BC ####[facility] [address] [place] [address]DrAnkur Mohan Erythrocyte distribution width (RBC) [Ratio] 21.2 % Critically high 11.0-15.0 [facility] Comment on above: Performed By: #### C BC ####[facility] [address] [place] [address]DrAnkur Mohan Hematocrit (Bld) [Volume fraction] 33.2 % Critically low 36.0-48.0 [facility] Comment on above: Performed By: #### C BC ####[facility] [address]te[address] [place] [address]DrAnkur Mohan Hemoglobin (Bld) [Mass/Vol] 10.3 g/dL Critically low 12.0-16.0 [facility] Comment on above: Performed By: #### C BC ####[facility] [address] [place], [place] [address]DrAnkur Mohan IG # 0.11 10e3/ul Critically high 0.00-0.03 [facility] Comment on above: Performed By: #### C BC ####[facility] Ekic[address]otqs[address] [place], [place] [address]DrAnkur Mohan IG % 0.9 % Critically high 0.0-0.5 [facility] Comment on above: Performed By: #### C BC ####[facility] I[address] [place], [place] [address]DrAnkur Mohan LYMPH # 2.2 103/ul Normal 1.2-3.8 [facility] Comment on above: Performed By: #### C BC ####[facility] Hg[address]euffwa[address] [place], [place] [address]DrAnkur Mohan Lymphocytes/100 WBC (Bld) 18.5 % Critically low 20.5-60.0 [facility] Comment on above: Performed By: #### C BC ####[facility] [address] [place], [place] [address]DrAnkur Mohan MANUAL DIFF REQ NO Normal [facility] Comment on above: Performed By: #### C BC ####[facility] [address] [place], [place] [address]DrAnkur Mohan MCH (RBC) [Entitic mass] 26.3 pg Critically low 26.7-34.0 [facility] Comment on above: Performed By: #### C BC ####[facility] [address]cfr[address] [place], [place] [address]DrAnkur Mohan MCHC (RBC) [Mass/Vol] 31.0 g/dL Normal 29.9-35.2 [facility] Comment on above: Performed By: #### C BC ####[facility] [address] [place], [place] [address]DrAnkur Mohan MCV (RBC) [Entitic vol] 84.9 fL Normal 81.0-99.0 [facility] Comment on above: Performed By: #### C BC ####[facility] Qc[address]mmghux[address] [place], [place] [address]DrAnkur Mohan MONO # 0.6 103/ul Normal 0.3-0.8 [facility] Comment on above: Performed By: #### C BC ####[facility] [address]uz[address] [place], [place] [address]DrAnkur Mohan Monocytes/100 WBC (Bld) 5.3 % Normal 1.7-12.0 [facility] Comment on above: Performed By: #### C BC ####[facility] Z[address]jro[address] [place], [place] [address]DrAnkur Mohan NEUT # 8.4 103/ul Critically high 1.4-6.5 [facility] Comment on above: Performed By: #### C BC ####[facility] [address]xqw[address] [place], [place] [address]DrAnkur Mohan Neutrophils/100 WBC (Bld) 72.3 % Normal 43.0-75.0 [facility] Comment on above: Performed By: #### C BC ####[facility] X[address]wed[address] [place], [place] [address]DrAnkur Mohan Platelet mean volume (Bld) [Entitic vol] 10.1 fL Normal 9.5-13.5 [facility] Comment on above: Performed By: #### C BC ####[facility] [address] [place], [place] [address]DrAnkur Mohan PLT 351 103/ul Normal 150-450 [facility] Comment on above: Performed By: #### C BC ####[facility] [address] [place], [place] [address]DrAnkur Mohan RBC 3.91 106/ul Critically low 4.20-5.40 [facility] Comment on above: Performed By: #### C BC ####[facility] [address] [place], [place] [address]Im. Deborah Mohan WBC 11.6 103/ul Critically high 4.0-11.0 [facility] Comment on above: Performed By: #### C BC ####[facility] [address] [place], [place] [address]Qu. Deborah Mohan CTA CHEST WO W CONon [...] 2. Bilateral peripheral fibrosis and/or scarring with xebb-os-dyssezpb groundglass densities. The groundglass densities are slightly decreased compared to the prior scan. 3. Old calcified granulomas in the chest and abdomen. 4. Large hiatal hernia. 5. Moderate diffuse osteopenia. Electronically authenticated by: BERNARDO DENNY Date: 2021-11-29 20:31 Normal [facility] D-DIMERon 11-29-2021 D-DIMER 1.14 mg/L FEU Critically high <=0.59 [facility] Comment on above: Performed By: #### A NARF #### [facility] [address] [place] [address] Dr. Deborah Mohan D-DIMER COMMENTS SEE BELOW Normal [facility] Comment on above: Result Comment: Incr [...] hospitalization. Performed By: #### A NARF #### [facility] [address] [place] [address] Dr. Deborah Mohan PROF CHEM 8 (BAS METB)on Anion gap [Moles/Vol] 11.7 mmol/L Normal [facility] Comment on above: Performed By: #### B KYLEE, HSTROPN #### [facility] [address] [place] [address] [address] Deborah Mohan Calcium [Mass/Vol] 8.7 mg/dL Normal 8.5-10.1 [facility] Comment on above: Performed By: #### B KYLEE, HSTROPN #### [facility] [address] [place] [address] [address] Deborah Mohan Chloride [Moles/Vol] 107 mmol/L Normal 98-107 [facility] Comment on above: Performed By: #### B KYLEE, HSTROPN #### [facility] [address] [place] [address] [address] Deborah Mohan CO2 [Moles/Vol] 25.3 mmol/L Normal 21.0-32.0 [facility] Comment on above: Performed By: #### B MP, HSTROPN #### [facility] [address] [place] [address] [address] Deborah Mohan Creatinine [Mass/Vol] 0.98 mg/dL Normal 0.55-1.02 [facility] Comment on above: Performed By: #### B MP, HSTROPN #### [facility] [address] [place] [address] [address] Deborah Mohan EGFR-AF KUWAITI >60 Normal >=60 [facility] Comment on above: Performed By: #### B MP, HSTROPN #### [facility] [address] [place] [address] [address] Deborah Mohan EGFR-NON AF KUWAITI 56 mL/min/1.73m2 Critically low >=60 [facility] Comment on above: Performed By: #### B MP, HSTROPN #### [facility] [address] [place] [address] [address] Deborah Mohan Glucose [Mass/Vol] 105 mg/dL Normal 74-106 [facility] Comment on above: Performed By: #### B MP, HSTROPN #### [facility] [address] [place] [address] [address] Deborah Mohan Potassium [Moles/Vol] 4.0 mmol/L Normal 3.5-5.1 [facility] Comment on above: Performed By: #### B MP, HSTROPN #### [facility] [address] [place] [address] [address] Deborah Mohan Sodium [Moles/Vol] 140 mmol/L Normal 136-145 [facility] Comment on above: Performed By: #### B MP, HSTROPN #### [facility] [address] [place] [address] [address] Deborah Mohan Urea nitrogen [Mass/Vol] 21.0 mg/dL Critically high 7.0-18.0 [facility] Comment on above: Performed By: #### B KYLEE, HSTROPN #### [facility] [address] [place], [place] [address] Dr. Deborah Mohan Urea nitrogen/Creatinine [Mass ratio] 21.4 mg/mg Normal [facility] Comment on above: Performed By: #### B KYLEE, HSTROPN #### [facility] [address] [place], [place] [address] Dr. Deborah Mohan TROPONIN, HIGH SENSITIVITYon 11-29-2021 HSTROP 4.5 pg/mL Normal 4.0-51.3 [facility] Comment on above: Result Comment: CUT- OFF POINTS HAVE BEEN ESTABLISHED BASED ON THE FOURTH UNIVERSAL DEFINITIONS OF MYOCARDIAL INFARCTION. THE UPPER REFERENCE LIMIT (URL) OF TROPONIN, DEFINED THE 99TH PERCENTILE OF cTnI DISTRIBUTION IN A REFERENCE POPULATION, HAS BEEN CONFIRMED THE DECISION THRESHOLD FOR [place] DIAGNOSIS. Performed By: #### H STROPN ####[facility] [address] [place], [place] [address]UoDr. Deborah Mohan HSTROP 6.0 pg/mL Normal 4.0-51.3 [facility] Comment on above: Result Comment: CUT- OFF POINTS HAVE BEEN ESTABLISHED BASED ON THE FOURTH UNIVERSAL DEFINITIONS OF MYOCARDIAL INFARCTION. THE UPPER REFERENCE LIMIT (URL) OF TROPONIN, DEFINED THE 99TH PERCENTILE OF cTnI DISTRIBUTION IN A REFERENCE POPULATION, HAS BEEN CONFIRMED THE DECISION THRESHOLD FOR [place] DIAGNOSIS. Performed By: #### B KYLEE HSTROPN #### [facility] [address] [place], [place] [address] Dr. Deborah Mohan XR CHEST 1 Von [...] KANDY BARRY Date: 2021-11-29 19:20 Normal [facility] XR LSPINE W_OBLS AND FLEX_EX Ton 11-12-2021 [...] RAUDEL ESTRADA Date: 2021-11-12 07:56 Normal [facility] CALCIUMon 11-11-2021 Calcium [Mass/Vol] 9.0 mg/dL Normal 8.5-10.1 [facility] Comment on above: Performed By: #### A NARF #### [facility] [address] [place] [address] [address] Deborah Mohan CREATININEon 11-11-2021 Creatinine [Mass/Vol] 1.47 mg/dL Critically high 0.55-1.02 [facility] Comment on above: Performed By: #### A NARF #### [facility] [address] [place] [address] [address] Deborah Mohan EGFR-AF KUWAITI 43 mL/min/1.73m2 Critically low >=60 [facility] Comment on above: Performed By: #### A NARF #### [facility] [address] [place] [address] [address] Deborah Mohan EGFR-NON AF KUWAITI 35 mL/min/1.73m2 Critically low >=60 [facility] Comment on above: Performed By: #### A NARF #### [facility] [address] [place] [address] [address] Deborah Mohan Encounters Encounter Date Encounter Type Care Provider Facility Start: 11-28-2023 End: 11-28-2023 ambulatory [facility] Start: 10-18-2023 End: 10-18-2023 ambulatory [facility] Start: 08-01-2023 End: 08-02-2023 ambulatory [...] Start: 05-08-2022 End: 05-08-2022 ambulatory Clarita Leigh Facility:[facility] Start: 05-08-2022 End: 05-08-2022 ambulatory SENIOR ASSISTANT MANAGER-C Clarita Leigh Work Phone: [facility] Work Phone: Start: 05-08-2022 End: 05-08-2022 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 procedure SENIOR ASSISTANT MANAGER-C Clarita Leigh Work Phone: [facility] Start: 04-08-2022 End: [...] 04-01-2018 Emergency department patient visit BRANDON RUSSELL [facility] Start: 12-11-2017 End: 12-11-2017 Emergency department patient visit ROBERT HURLEY Facility:[facility] Procedures Date Procedure Procedure Detail Performing Clinician Start: 05-08-2022 Plain X-ray of left wrist SENIOR ASSISTANT MANAGER-C Clarita Leigh Work Phone: Start: 05-08-2022 X-ray of left ankle SENIOR ASSISTANT MANAGER -C Clarita Leigh Work Phone: Start: 04-01-2018 IP CONSULT TO ORAL SURGERY BRANDON RUSSELL Payers Date Payer Category Payer Unknown 2022 Medicare [id number] 2022 Self-pay 1959 Unknown [id number] 1953 Unknown [id number] 2.16.84 0.1.319014.3.579.2.593 1953 Unknown [id number] 2.16.84 0.1.422005.3.579.2.593 1953 Unknown [id number] 2.16.84 0.1.331220.3.579.2.593 1953 Unknown [id number] 2.16.84 0.1.706080.3.579.2.593 1953 Unknown [id number] 2.16.84 0.1.478158.3.579.2.593 1953 Unknown [id number] 2.16.84 0.1.017577.3.579.2.593 1953 Unknown [id number] 2.16.84 0.1.418832.3.579.2.593 1953 Unknown [id number] 2.16.84 0.1.106096.3.579.2.593 1953 Unknown [id number] 2.16.84 0.1.720123.3.579.2.593 1953 Unknown [id number] 2.16.84 0.1.559711.3.579.2.593 1953 Unknown [id number] 2.16.84 0.1.726516.3.579.2.593 1953 Unknown [id number] 2.16.84 0.1.215797.3.579.2.593 1953 Unknown [id number] 2.16.84 0.1.872347.3.579.2.593 1953 Unknown [id number] 2.16.84 0.1.559549.3.579.2.593 1953 Unknown [id number] 2.16.84 0.1.333518.3.579.2.593 1953 Unknown [id number] 2.16.84 0.1.559547.3.579.2.593 1953 Unknown [id number] 2.16.84 0.1.683624.3.579.2.593 1953 Unknown [id number] 2.16.84 0.1.115530.3.579.2.593 1953 Unknown [id number] 2.16.84 0.1.521048.3.579.2.593 1953 Unknown [id number] 2.16.84 0.1.477855.3.579.2.593 1953 Unknown [id number] 2.16.84 0.1.115753.3.579.2.593 1953 Unknown [id number] 2.16.84 0.1.433132.3.579.2.593 1953 Unknown [id number] Medicare [id number] Unknown O [id number] Unknown Jesus BC/BS [id number] Unknown [id number] Social History Date Type Detail Facility Tobacco smoking stat [facility] Unknown if ever smoked [facility] Work Phone: Start: 1955 Sex Assigned At Female F [facility] Clinical Notes 11-05-2021 to 11-28-2023 Note Date & Type Note Facility 11-28-2023 Note [facility] Cardiology Clinic Note Chief Complaint: Patient [...] mouth in the morning., Disp: , Rfl: apagfwetsp-kjujiyvqmmqjc-uyla 50-325-40 mg tablet, Take 1 tablet by [...] sinus rhythm Echocar (more content not included)... [facility] 10-18-2023 Note [facility] Cardiology Clinic Note Chief Complaint: New patient here to establish care. Ref from Dr. Townsend for abnormal EKG. She also wore 7 day Holter monitor, and says she did not work while wearing this. She works at [employer] and says it's very fast paced. States she drinks a 5 Hour Energy shot almost every day. She was admitted to [facility] for migraine recently and was found to have abnormal EKG. Recently has noticed a twinge of chest pain. C/o DAI, palpitations, and lightheadedness. HPI: Mary Vick is a 68 y.o. female With a history of hypertension and hypothyroidism who presents due to an abnormal Holter monitor She was admitted to the [facility] for migraine; a monitor revealed both SVT [...] Plan: Routine labs (more content not included)... [facility] 07-08-2022 Note CONSULTATION PROCEDURE DATE: 07/08/2022 HISTORY [...] in the clinic in three months. [facility] 06-24-2022 Note CONSULTATION CONSULTATION DATE: 06/24/2022 HISTORY [...] at a time, as she works at [employer]. Current medications include Percocet 5/325 daily, diclofenac [...] pending approval for her knee injections. [facility] 04-08-2022 Note CONSULTATION CONSULTATION DATE: 04/08/2022 HISTORY [...] three months' time unless otherwise indicated. [facility] 03-09-2022 Note CONSULTATION CONSULTATION DATE: 03/09/2022 CHIEF [...] to proceed. CC: Natividad Silva CNP [facility] 01-28-2022 Note CONSULTATION CONSULTATION DATE: 01/30/2022 HISTORY [...] and re-evaluation of her bursa injection. [facility] 01-28-2022 Note CONSULTATION PROCEDURE DATE: 01/30/2022 PREOPERATIVE [...] be followed up in the clinic. [facility] 11-12-2021 Note PROCEDURE: XR HIPS B IL [...] by: RAUDEL ESTRADA Date: 2021-11-12 07:50 [facility] 11-05-2021 Note CONSULTATION PROCEDURE DATE:11/05/2021 PREOPERATIVE DIAGNOSIS: [...] will be followed up in the office. [facility] Signed and Approved by: JOEL RAMON . 11/18/2021 16:24:00 [facility] 11-05-2021 Note CONSULTATION CONSULTATION DATE: 11/05/2021 [...] time, was working half a day at [employer] and since then has increased to full [...] in three months' time unless otherwise indicated. [facility] Signed and Approved by: JOEL RAMON . 11/18/2021 16:24:00 [facility] Evaluation note No assessment information availa [facility] Work Phone: Summary Purpose Family History No [...] and content) DATE CREATED AUTHOR 12/21/2017 [facility] DATE CREATED AUTHOR AUTHOR'S ORGANIZ ATION 05/01/2018 [facility] DATE CREATED AUTHOR AUTHOR'S ORGANIZ ATION 05/17/2022 [facility] DATE CREATED AUTHOR AUTHOR'S ORGANIZ ATION 10/06/2022 [facility] DATE CREATED AUTHOR AUTHOR'S ORGANIZ ATION 08/03/2023 [facility] DATE CREATED AUTHOR AUTHOR'S ORGANIZ ATION 11/28/2023 [facility] Care Teams (unrecognized sec tion and [...] BE BASED ON THE PRIMARY CLINICAL RECORDS. [facility] [employer] [facility]. provides no warranty or guarantee of the accuracy or completeness of information in this document.
== END 2024-01-18 13:42 | disposition home or self-care (01) ==
LOC: LAB 13:44
PROVIDERS: PCP Nurse Practitioner Family; Visit Provider Nurse Practitioner Family
DX: D50.9 Iron deficiency anemia, unspecified (principal); E03.9 Hypothyroidism, unspecified
CPT/HCPCS: 36415; 83540; 84436; 84443; 84481; 85025

== ENCOUNTER 2024-01-25 10:09 | Outpatient (OUT) | payer MEDICARE, SELFPAY ==
--- OUTSIDE RECORDS SUMMARY | 2024-01-25 10:28 | XMS_ITS | CCD ---
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 FOURTH UNIVERSAL DEFINITIONS OF MYOCARDIAL INFARCTION. THE UPPER REFERENCE LIMIT (URL) OF TROPONIN, DEFINED THE 99TH PERCENTILE OF cTnI DISTRIBUTION IN A REFERENCE POPULATION, HAS BEEN CONFIRMED THE DECISION THRESHOLD FOR AK DIAGNOSIS. Performed By: #### H STROPN, CMP ####[facility] [address]vdxjsy[address] [place] [id number]. Deborah Marques XR CHEST 1 Von 04-07-2022 [...] ANDERSON ALMANZAR Date: 2022-04-07 03:11 Normal [facility] HEMOGLOBINon 03-12-2022 Hemoglobin (Bld) [Mass/Vol] 9.2 g/dL Critically low 12.0-16.0 [facility] Comment on above: Performed By: #### A NARF #### [facility] [address] [place] [address] [address] Deborah Mohan ANTI NEUTROPHIL CYTOPLASMIC AB (ANCA) PRon 03-09-2022 Anti-MPO Antibodies <0.2 Normal 0.0-0.9 [facility] Comment on above: Result Comment: Perf ormed at: BN Performed By: #### B FAST FOOD SERVICES MANAGER, HSTROPN, CMP #### [facility] [address] [place] [address] [address] Deborah Mohan Anti-PR3 Antibodies <0.2 Normal 0.0-0.9 [facility] Comment on above: Result Comment: Perf ormed at: BN Performed By: #### B FAST FOOD SERVICES MANAGER, HSTROPN, CMP #### [facility] [address] [place] [address] [address] Deborah Mohan Atypical pANCA 1:160 Critically high Neg:<1:20 [facility] Comment on above: Result Comment: The atypical pANCA pattern has been observed in a significant percentage of patients with ulcerative colitis, primary sclerosing cholangitis and autoimmune hepatitis. Performed at: CB Performed By: #### B FAST FOOD SERVICES MANAGER, HSTROPN, CMP #### [facility] [address] [place] [address] [address] Deborah Mohan Cytoplasmic (C-ANCA) <1:20 Normal Neg:<1:20 [facility] Comment on above: Result Comment: Perf ormed at: CB Performed By: #### B PHILLIP JONES, CMP #### [facility] [address] [place] [address] [address] Deborah Mohan Perinuclear (P-ANCA) <1:20 Normal [...] up testing of positive sera with both FL-3 and MPO-ANCA enzyme immunoassays. As many as 5% serum samples are positive only by EIA. Ref. AM J Clin Pathol 1999;111:507-513. Performed at: CB Performed By: #### B PHILLIP JONES, CMP #### [facility] [address] [place] [address] [address] Deborah Mohan ANTISCLERODERMA ABon 022 Antiscleroderma-70 Antibodies <0.2 Normal 0.0-0.9 [facility] Comment on above: Performed By: #### A NARF #### [facility] [address] [place] [address] CHEST WO CONon [...] incidental findings, as described above. Normal [facility] CYCLIC CITRULLINATED PEPTIDE AB (CCP)on 03-09-2022 CCP Antibodies IgG/IgA 6 units Normal 0-19 [facility] Comment on above: Result Comment: Nega tive <20 Weak positive 20 - 39 Moderate positive 40 - 59 Strong positive >59 Performed By: #### B FAST FOOD SERVICES MANAGER, HSTROPN, CMP #### [facility] [address] [place], [place] [address] Dr. Deborah Mohan IGG SUBCLASSES (1-4) AND TOT Kade 03-09-2022 IgG, Subclass 1 448 mg/dL Normal 248-810 [facility] Comment on above: Performed By: #### B FAST FOOD SERVICES MANAGER, HSTROPN, CMP #### [facility] [address] [place] [address] [address] Deborah Mohan IgG, Subclass 2 253 mg/dL Normal 130-555 [facility] Comment on above: Performed By: #### B FAST FOOD SERVICES MANAGER, HSTROPN, CMP #### [facility] [address] [place] [address] [address] Deborah Mohan IgG, Subclass 3 95 mg/dL Normal 15-102 [facility] Comment on above: Performed By: #### B FAST FOOD SERVICES MANAGER, HSTROPN, CMP #### [facility] [address] [place] [address] [address] Deborah Mohan IgG, Subclass 4 10 mg/dL Normal 2-96 [facility] Comment on above: Performed By: #### B FAST FOOD SERVICES MANAGER, HSTROPN, CMP #### [facility] [address] [place] [address] [address] Deborah Mohan Immunoglobulin G, Qn, Serum 658 mg/dL Normal 586-1602 [facility] Comment on above: Performed By: #### B FAST FOOD SERVICES MANAGER, HSTROPN, CMP #### [facility] [address] [place] [id number] [address] Deborah Mohan IMMUNOGLOBULIN E, TOTALon Immunoglobulin E, Total 5 IU/mL Critically low 6-495 [facility] Comment on above: Performed By: #### I GETOT ####[facility] Xtwkgsq[address]cy43[address] [place], [place] [address]GwDr. Deborah Mohan MICHELL EIA W/REFLEX 5 BIOMARKER Son 03-08-2022 MICHELL Direct Negative Normal Negative [facility] Comment on above: Performed By: #### A NARF #### [facility] [address] [place] [address] [address] Deborah Mohan ANGIOTENSION-CONVERTING ENZY ME (FRANCESCO)on 03-08-2022 FRANCESCO 32 U/L Normal 14-82 [facility] Comment on above: Performed By: #### A NGIOC ####[facility] [address] [place] [address]DrAnkur Mohan ANTIGLOMERULAR BASEMENT MEMB ROMMEL ABSon 03-08-2022 Anti-GBM Antibodies <0.2 Normal 0.0-0.9 [facility] Comment on above: Performed By: #### A GBM #### [facility] [address] [place] [address] [address] Deborah Mohan IMMUNOGLOBULIN IGA QUANTITIA VEon 03-06-2022 Immunoglobulin A, Qn, Serum 229 mg/dL Normal 87-352 [facility] Comment on above: Performed By: #### A NARF #### [facility] [address] [place] [address] [address] Deborah Mohan IMMUNOGLOBULIN IGM QUANTITAT IVEon 03-06-2022 Immunoglobulin M, Qn, Serum 83 mg/dL Normal 26-217 [facility] Comment on above: Performed By: #### B FAST FOOD SERVICES MANAGER, HSTROPN, CMP #### [facility] [address] [place] [address] [address] Deborah Mohan RHEUMATOID FACTORon 03-06-20 22 RA Latex Turbid. 10.9 IU/mL Normal <14.0 [facility] Comment on above: Performed By: #### R F ####[facility] [address] [place] [address]Dr. Deborah Mohan CREATININEon 03-05-2022 Creatinine [Mass/Vol] 1.38 mg/dL Critically high 0.55-1.02 [facility] Comment on above: Performed By: #### C MELVINA ####[facility] Spmrffzgoo[address] [place] [address]DrAnkur Mohan EGFR-AF JAMAICAN 46 mL/min/1.73m2 Critically low >=60 [facility] Comment on above: Performed By: #### C MELVINA ####[facility] [address]zifcl[address] [place] [id number]. Deborah Mohan EGFR-NON AF J[place] 38 mL/min/1.73m2 Critically low >=60 [facility] Comment on above: Performed By: #### C MELVINA ####[facility] Yogxxwnxpt[address] [place] [id number]. Deborah Mohan SED RATE WESTERGRENon 2021 SED RATE 92 mm/hr Critically high <=30 [facility] Comment on above: Performed By: #### B FAST FOOD SERVICES MANAGER, HSTROPN, CMP #### [facility] [address] [place] [address] [address] Deborah Mohan XR DEXA BONE DENSITYon [...] RAUDEL ESTRADA Date: 2022-01-29 11:09 Normal [facility] CBC AUTO DIFFon 11-29-2021 BASO # 0.1 103/ul Normal 0.0-0.1 [facility] Comment on above: Performed By: #### C BC ####[facility] Z[address]rom[address]rc[address] [place] [address]Dr. Deborah Mohan Basophils/100 WBC (Bld) 0.8 % Normal 0.2-2.0 [facility] Comment on above: Performed By: #### C BC ####[facility] Ezmelhlbsr40[address] [place] [address]DrAnkur Mohan EO # 0.3 103/ul Normal 0.0-0.7 [facility] Comment on above: Performed By: #### C BC ####[facility] [address]fye[address] [place] [address]Dr. Deborah Mohan Eosinophils/100 WBC (Bld) 2.2 % Normal 0.9-7.0 [facility] Comment on above: Performed By: #### C BC ####[facility] Ipqnqqhwnl36[address] [place] [address]DrAnkur Mohan Erythrocyte distribution width (RBC) [Ratio] 21.2 % Critically high 11.0-15.0 [facility] Comment on above: Performed By: #### C BC ####[facility] Zejixaenoq[address] [place] [address]DrAnkur Mohan Hematocrit (Bld) [Volume fraction] 33.2 % Critically low 36.0-48.0 [facility] Comment on above: Performed By: #### C BC ####[facility] Tjolkbrqpo[address] [place] [address]DrAnkur Mohan Hemoglobin (Bld) [Mass/Vol] 10.3 g/dL Critically low 12.0-16.0 [facility] Comment on above: Performed By: #### C BC ####[facility] Qnetjmckid[address] [place], [place] [address]DrAnkur Mohan IG # 0.11 10e3/ul Critically high 0.00-0.03 [facility] Comment on above: Performed By: #### C BC ####[facility] Ynjlyfzion[address] [place], [place] [address]DrAnkur Mohan IG % 0.9 % Critically high 0.0-0.5 [facility] Comment on above: Performed By: #### C BC ####[facility] Lxnlpitwot[address] [place], [place] [address]DrAnkur Mohan LYMPH # 2.2 103/ul Normal 1.2-3.8 [facility] Comment on above: Performed By: #### C BC ####[facility] Quk[address]ixzq[address] [place], [place] [address]DrAnkur Mohan Lymphocytes/100 WBC (Bld) 18.5 % Critically low 20.5-60.0 [facility] Comment on above: Performed By: #### C BC ####[facility] [address]wyftjx[address] [place], [place] [address]DrAnkur Mohan MANUAL DIFF REQ NO Normal [facility] Comment on above: Performed By: #### C BC ####[facility] Eeljcaqlhm[address] [place], [place] [address]DrAnkur Mohan MCH (RBC) [Entitic mass] 26.3 pg Critically low 26.7-34.0 [facility] Comment on above: Performed By: #### C BC ####[facility] Vzwgvwatfz[address] [place], [place] [address]DrAnkur Mohan MCHC (RBC) [Mass/Vol] 31.0 g/dL Normal 29.9-35.2 [facility] Comment on above: Performed By: #### C BC ####[facility] Uvsriozagx[address] [place], [place] [address]DrAnkur Mohan MCV (RBC) [Entitic vol] 84.9 fL Normal 81.0-99.0 [facility] Comment on above: Performed By: #### C BC ####[facility] W[address]axfswaj[address] [place], [place] [address]DrAnkur Mohan MONO # 0.6 103/ul Normal 0.3-0.8 [facility] Comment on above: Performed By: #### C BC ####[facility] Ixltndrmxt[address] [place], [place] [address]DrAnkur Mohan Monocytes/100 WBC (Bld) 5.3 % Normal 1.7-12.0 [facility] Comment on above: Performed By: #### C BC ####[facility] Lryrhohpfl[address] [place], [place] [address]DrAnkur Mohan NEUT # 8.4 103/ul Critically high 1.4-6.5 [facility] Comment on above: Performed By: #### C BC ####[facility] Ujiplpbwuh[address] [place], [place] [address]DrAnkur Mohan Neutrophils/100 WBC (Bld) 72.3 % Normal 43.0-75.0 [facility] Comment on above: Performed By: #### C BC ####[facility] Qkrfcprgzr[address] [place], [place] [address]DrAnkur Mohan Platelet mean volume (Bld) [Entitic vol] 10.1 fL Normal 9.5-13.5 [facility] Comment on above: Performed By: #### C BC ####[facility] Tkofqssmtx[address] [place], [place] [address]DrAnkur Mohan PLT 351 103/ul Normal 150-450 [facility] Comment on above: Performed By: #### C BC ####[facility] Vylchttfvu[address] [place], [place] [address]DrAnkur Mohan RBC 3.91 106/ul Critically low 4.20-5.40 [facility] Comment on above: Performed By: #### C BC ####[facility] Psozfsuyuf[address] [place], [place] [address]Qw. Deborah Mohan WBC 11.6 103/ul Critically high 4.0-11.0 [facility] Comment on above: Performed By: #### C BC ####[facility] Kywsrncjta35[address] [place], [place] [address]Zs. Deborah Mohan CTA CHEST WO W CONon [...] 2. Bilateral peripheral fibrosis and/or scarring with fneq-jd-hhhmygrp groundglass densities. The groundglass densities are slightly decreased compared to the prior scan. 3. Old calcified granulomas in the chest and abdomen. 4. Large hiatal hernia. 5. Moderate diffuse osteopenia. Electronically authenticated by: BERNARDO DENNY Date: 2021-11-29 20:31 Normal [facility] D-DIMERon 11-29-2021 D-DIMER 1.14 mg/L FEU Critically high <=0.59 [facility] Comment on above: Performed By: #### A NARF #### [facility] [address] [place] [address] Dr. Deborah Mohan D-DIMER COMMENTS SEE BELOW Normal [facility] Comment on above: Result Comment: Incr eases [...] hospitalization. Performed By: #### A NARF #### [facility] [address] [place] [address] Dr. Deborah Mohan PROF CHEM 8 (BAS METB)on Anion gap [Moles/Vol] 11.7 mmol/L Normal [facility] Comment on above: Performed By: #### B KYLEE, HSTROPN #### [facility] [address] [place] [address] [address] Deborah Mohan Calcium [Mass/Vol] 8.7 mg/dL Normal 8.5-10.1 [facility] Comment on above: Performed By: #### B KYLEE, HSTROPN #### [facility] [address] [place] [address] [address] Deborah Mohan Chloride [Moles/Vol] 107 mmol/L Normal 98-107 [facility] Comment on above: Performed By: #### B KYLEE, HSTROPN #### [facility] [address] [place] [address] [address] Deborah Mohan CO2 [Moles/Vol] 25.3 mmol/L Normal 21.0-32.0 [facility] Comment on above: Performed By: #### B MP, HSTROPN #### [facility] [address] [place] [address] [address] Deborah Mohan Creatinine [Mass/Vol] 0.98 mg/dL Normal 0.55-1.02 [facility] Comment on above: Performed By: #### B MP, HSTROPN #### [facility] [address] [place] [address] [address] Deborah Mohan EGFR-AF JAMAICAN >60 Normal >=60 [facility] Comment on above: Performed By: #### B MP, HSTROPN #### [facility] [address] [place] [address] [address] Deborah Mohan EGFR-NON AF JAMAICAN 56 mL/min/1.73m2 Critically low >=60 [facility] Comment on above: Performed By: #### B MP, HSTROPN #### [facility] [address] [place] [address] [address] Deborah Mohan Glucose [Mass/Vol] 105 mg/dL Normal 74-106 [facility] Comment on above: Performed By: #### B MP, HSTROPN #### [facility] [address] [place] [address] [address] Deborah Mohan Potassium [Moles/Vol] 4.0 mmol/L Normal 3.5-5.1 [facility] Comment on above: Performed By: #### B MP, HSTROPN #### [facility] [address] [place] [address] [address] Deborah Mohan Sodium [Moles/Vol] 140 mmol/L Normal 136-145 [facility] Comment on above: Performed By: #### B MP, HSTROPN #### [facility] [address] [place] [address] [address] Deborah Mohan Urea nitrogen [Mass/Vol] 21.0 mg/dL Critically high 7.0-18.0 [facility] Comment on above: Performed By: #### B KYLEE, HSTROPN #### [facility] [address] [place], [place] [address] Dr. Deborah Mohan Urea nitrogen/Creatinine [Mass ratio] 21.4 mg/mg Normal [facility] Comment on above: Performed By: #### B KYLEE, HSTROPN #### [facility] [address] [place], [place] [address] Dr. Deborah Mohan TROPONIN, HIGH SENSITIVITYon 11-29-2021 HSTROP 4.5 pg/mL Normal 4.0-51.3 [facility] Comment on above: Result Comment: CUT- OFF POINTS HAVE BEEN ESTABLISHED BASED ON THE FOURTH UNIVERSAL DEFINITIONS OF MYOCARDIAL INFARCTION. THE UPPER REFERENCE LIMIT (URL) OF TROPONIN, DEFINED THE 99TH PERCENTILE OF cTnI DISTRIBUTION IN A REFERENCE POPULATION, HAS BEEN CONFIRMED THE DECISION THRESHOLD FOR [place] DIAGNOSIS. Performed By: #### H STROPN ####[facility] [address] [place], [place] [address]YsDr. Deborah Mohan HSTROP 6.0 pg/mL Normal 4.0-51.3 [facility] Comment on above: Result Comment: CUT- OFF POINTS HAVE BEEN ESTABLISHED BASED ON THE FOURTH UNIVERSAL DEFINITIONS OF MYOCARDIAL INFARCTION. THE UPPER REFERENCE LIMIT (URL) OF TROPONIN, DEFINED THE 99TH PERCENTILE OF cTnI DISTRIBUTION IN A REFERENCE POPULATION, HAS BEEN CONFIRMED THE DECISION THRESHOLD FOR AK DIAGNOSIS. Performed By: #### B KYLEE HSTROPN #### [facility] [address] [place], [place] [address] Dr. Deborah Mohan XR CHEST 1 Von [...] KANDY BARRY Date: 2021-11-29 19:20 Normal [facility] XR LSPINE W_OBLS AND FLEX_EX Ton [...] RAUDEL ESTRADA Date: 2021-11-12 07:56 Normal [facility] CALCIUMon 11-11-2021 Calcium [Mass/Vol] 9.0 mg/dL Normal 8.5-10.1 [facility] Comment on above: Performed By: #### A NARF #### [facility] [address] [place] [address] [address] Deborah Mohan CREATININEon 11-11-2021 Creatinine [Mass/Vol] 1.47 mg/dL Critically high 0.55-1.02 [facility] Comment on above: Performed By: #### A NARF #### [facility] [address] [place] [address] [address] Deborah Mohan EGFR-AF J[place] 43 mL/min/1.73m2 Critically low >=60 [facility] Comment on above: Performed By: #### A NARF #### [facility] [address] [place] [address] [address] Deborah Moahn EGFR-NON AF JAMAICAN 35 mL/min/1.73m2 Critically low >=60 [facility] Comment on above: Performed By: #### A NARF #### [facility] [address] [place] [address] [address] Deborah Mohan Encounters Encounter Date Encounter Type Care Provider Facility Start: 11-28-2023 End: 11-28-[address] [facility] Start: 10-18-2023 End: 10-18-[address] [facility] Start: 08-01-2023 End: 08-02-2023 ambulatory Gabriella Woodruff MD Facility:[facility] Start: 10-05-2022 End: 10-06-2022 ambulatory NARENDRANATH LAKSHMIPATHY . Facility:[facility] Start: 09-17-2022 End: 09-17-[address] INGRID ESPINAL Facility:[facility] Start: 08-26-2022 ambulatory NARENDRANATH LAKSHMIPATHY . Facility:[facility] Start: 08-24-2022 End: 08-24-2022 ambulatory NATIVIDAD SILAV Facility:[facility] Start: 07-08-2022 End: 07-09-2022 ambulatory JOEL RAMON . Facility:[facility] Start: 07-06-2022 End: 07-07-2022 ambulatory NATIVIDAD SILVA Facility:[facility] Start: 06-24-2022 End: 06-25-2022 ambulatory JOEL RAMON . Facility:[facility] Start: 05-21-2022 ambulatory NATIVIDAD SILVA Facility: [facility] Start: 05-08-2022 End: 05-08-2022 ambulatory Clarita Leigh Facility:[facility] Start: 05-08-2022 End: 05-08-2022 ambulatory MARKETING SALES REPRESENTATIVE-C Clarita Leigh Work Phone: [facility] Work Phone: Start: 05-08-2022 End: 05-08-2022 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 procedure MARKETING SALES REPRESENTATIVE-C Clarita Leigh Work Phone: [facility] Start: 04-08-2022 [...] 04-01-2018 Emergency department patient visit BRANDON RUSSELL [facility] Start: 12-11-2017 End: 12-11-2017 Emergency department patient visit ROBERT HURLEY Facility:[facility] Procedures Date Procedure Procedure Detail Performing Clinician Start: 05-08-2022 Plain X-ray of left wrist MARKETING SALES REPRESENTATIVE-C Clarita Leigh Work Phone: Start: 05-08-2022 X-ray of left ankle MARKETING SALES REPRESENTATIVE -C Clarita Leigh Work Phone: Start: 04-01-2018 IP CONSULT TO ORAL SURGERY BRANDON RUSSELL Payers Date Payer Category Payer Unknown 2022 Medicare [id number] 2022 Self-pay 1959 Unknown [id number] 1953 Unknown [id number] 2.16.84 0.1.684607.3.579.2.593 1953 Unknown [id number] 2.16.84 0.1.300357.3.579.2.593 1953 Unknown [id number] 2.16.84 0.1.715492.3.579.2.593 1953 Unknown [id number] 2.16.84 0.1.309266.3.579.2.593 1953 Unknown [id number] 2.16.84 0.1.596789.3.579.2.593 1953 Unknown [id number] 2.16.84 0.1.370508.3.579.2.593 1953 Unknown [id number] 2.16.84 0.1.769045.3.579.2.593 1953 Unknown [id number] 2.16.84 0.1.439875.3.579.2.593 1953 Unknown [id number] 2.16.84 0.1.291468.3.579.2.593 1953 Unknown [id number] 2.16.84 0.1.297885.3.579.2.593 1953 Unknown [id number] 2.16.84 0.1.520974.3.579.2.593 1953 Unknown [id number] 2.16.84 0.1.954331.3.579.2.593 1953 Unknown [id number] 2.16.84 0.1.054149.3.579.2.593 1953 Unknown [id number] 2.16.84 0.1.767509.3.579.2.593 1953 Unknown [id number] 2.16.84 0.1.167577.3.579.2.593 1953 Unknown [id number] 2.16.84 0.1.406214.3.579.2.593 1953 Unknown [id number] 2.16.84 0.1.045679.3.579.2.593 1953 Unknown [id number] 2.16.84 0.1.116518.3.579.2.593 1953 Unknown [id number] 2.16.84 0.1.128175.3.579.2.593 1953 Unknown [id number] 2.16.84 0.1.202313.3.579.2.593 1953 Unknown [id number] 2.16.84 0.1.254344.3.579.2.593 1953 Unknown [id number] 2.16.84 0.1.089513.3.579.2.593 1953 Unknown [id number] Medicare [id number] Unknown O [id number] Unknown Jesus BC/BS [id number] Unknown [id number] Social History Date Type Detail Facility Tobacco smoking stat [facility] Unknown if ever smoked [facility] Work Phone: Start: 1955 Sex Assigned At Female F [facility] Clinical Notes 11-05-2021 to 11-28-2023 Note Date & Type Note Facility 11-28-2023 Note [facility] Note Chief Complaint: Patient [...] mouth in the morning., Disp: , Rfl: dstxzgqehp-yfaidvalsfkwi-mzyz 50-325-40 mg tablet, Take 1 tablet by [...] sinus rhythm Echocar (more content not included)... [facility] 10-18-2023 Note [facility] Note Chief Complaint: New patient here to establish care. Ref from Dr. Townsend for abnormal EKG. She also wore 7 day Holter monitor, and says she did not work while wearing this. She works at [employer] and says it's very fast paced. States she drinks a 5 Hour Energy shot almost every day. She was admitted to [facility] for migraine recently and was found to have abnormal EKG. Recently has noticed a twinge of chest pain. C/o DAI, palpitations, and lightheadedness. HPI: Mary Vick is a 68 y.o. female With a history of hypertension and hypothyroidism who presents due to an abnormal Holter monitor She was admitted to the [facility] for migraine; a monitor revealed [...] Plan: Routine labs (more content not included)... [facility] 07-08-2022 Note CONSULTATION PROCEDURE DATE: 07/08/2022 [...] in the clinic in three months. [facility] 06-24-2022 Note CONSULTATION CONSULTATION DATE: [...] at a time, as she works at [employer]. Current medications include Percocet 5/325 daily, diclofenac [...] pending approval for her knee injections. [facility] 04-08-2022 Note CONSULTATION CONSULTATION DATE: [...] three months' time unless otherwise indicated. [facility] 03-09-2022 Note CONSULTATION CONSULTATION DATE: [...] to proceed. CC: Natividad Silva CNP [facility] 01-28-2022 Note CONSULTATION CONSULTATION DATE: [...] and re-evaluation of her bursa injection. [facility] 01-28-2022 Note CONSULTATION PROCEDURE DATE: [...] be followed up in the clinic. [facility] 11-12-2021 Note PROCEDURE: XR HIPS [...] by: RAUDEL ESTRADA Date: 2021-11-12 07:50 [facility] 11-05-2021 Note CONSULTATION PROCEDURE DATE:11/05/2021 [...] be followed up in the office. [facility] Signed and Approved by: JOEL RAMON . 11/18/2021 16:24:00 [facility] 11-05-2021 Note CONSULTATION CONSULTATION DATE: 11/05/2021 [...] time, was working half a day at [employer] and since then has increased to full [...] three months' time unless otherwise indicated. [facility] Signed and Approved by: JOEL RAMON . 11/18/2021 16:24:00 [facility] Evaluation note No assessment information availa [facility] Work Phone: Summary Purpose Family History No [...] and content) DATE CREATED AUTHOR 12/21/2017 [facility] DATE CREATED AUTHOR AUTHOR'S ORGANIZ ATION 05/01/2018 [facility] DATE CREATED AUTHOR AUTHOR'S ORGANIZ ATION 05/17/2022 [facility] DATE CREATED AUTHOR AUTHOR'S ORGANIZ ATION 10/06/2022 [facility] DATE CREATED AUTHOR AUTHOR'S ORGANIZ ATION 08/03/2023 [facility] DATE CREATED AUTHOR AUTHOR'S ORGANIZ ATION 11/28/2023 [facility] Care Teams (unrecognized sec tion [...] ON THE PRIMARY CLINICAL RECORDS. [facility]. provides no warranty or guarantee of the accuracy or completeness of information in this document.
--- NOTE | 2024-01-25 10:32 | P.CN_ITS ---
Consult Note: HPI Data of Consult Patient: known to practice within the last 3 years Requesting Physician: Shweta Crowley NP Primary Care Provider: POLO SILVA Consult Narrative Reason for consult: f/u Narrative: Mary Vick a pleasant 67 year old female presents for evaluation and management of low back pain. Today rating pain 4/10 in bilateral low back and bilateral hips, ache and stiffness. Pain increases to 8/10, worse with all activity. Finding mild benefit from current medication regimen but still having functional difficulty and making it harder to complete tasks at work. Patient reports >80% improvement in pain 2 hours following bilateral L1-2 L2-3 facet medial branch block #1 and #2 unfortunately no relief from right and left L1/2 L2/3 facet RFAs. Patient reporting prior bilateral GTB injections provided >50% improvement greater than 3 months and she would like to repeat. cc:: CC: Shweta Crowley NP Review of Systems ROS Status of ROS 10 or more systems reviewed and unremark able except as noted in history and below Musculoskeletal Reports: back pain, extremity pain and joint pain PFSH PFSH Medical History Migraine ?G43.909 - Migraine, unspecified, not intractable, without status migrainosus (ICD-10) Loud snoring ?R06.83 - Snoring (ICD-10) Osteoarthritis ?M19.90 - Unspecified osteoarthritis, unspecified site (ICD-10) Neck pain ?M54.2 - Cervicalgia (ICD-10) Bipolar 1 disorder ?F31.9 - Bipolar disorder, unspecified (ICD-10) Hearing deficit ?H91.90 - Unspecified hearing loss, unspecified ear (ICD-10) Anxiety ?F41.9 - Anxiety disorder, unspecified (ICD-10) Acid reflux ?K21.9 - Gastro-esophageal reflux disease without esophagitis (ICD-10) Obesity ?E66.9 - Obesity, unspecified (ICD-10) Hypothyroid ?E03.9 - Hypothyroidism, unspecified (ICD-10) Pulmonary hypertension ?I27.20 - Pulmonary hypertension, unspecified (ICD-10) Sleep apnea ?G47.30 - Sleep apnea, unspecified (ICD-10) High cholesterol ?E78.00 - Pure hypercholesterolemia, unspecified (ICD-10) Hypertension ?I10 - Essential (primary) hypertension (ICD-10) Surgical History History of mandibular surgery ?Z98.890 - Other specified postprocedural states (ICD-10) Hx of tubal ligation ?Z98.51 - Tubal ligation status (ICD-10) History of appendectomy ?Z90.49 - Acquired absence of other specified parts of digestive tract (ICD- 10) History of hysterectomy ?Z90.710 - Acquired absence of both cervix and uterus (ICD-10) Family History Mother Family history of cancer Sister Family history of cancer Social History Within the past year, how often did you have a drink containing alcohol: never Score interpretation: A score less than 3 is consistent with normal alcohol consumption. Smoking status: Former smoker Non-prescribed substance use: denies use Previous occupational history: [employer] Highest level of school completed/degree received: 11th grade Are you now , , , , never or living with a partner: In a typical week, how many times do you talk on the telephone with family, friends, or neighbors: 3 or more times per week How often do you get together with friends or relatives: 3 or more times per week How often do you attend mandaeism or jain services: 4 or more times per year Do you belong to any clubs or organizations such as mandaeism groups unions, fraternal or athletic groups, or school groups: no Total score: 2 Score interpretation: A score of greater than or equal to 2 indicates the lowest level of social isolation. Little interest or pleasure in doing things: not at all Feeling down, depressed, or hopeless: not at all Feel stressed/tense/nervous/anxious/difficulty sleeping: not at all Gender Identity: female Meds Home Medications and Allergies Home Medications ?Medication ?Instructions ?Recorded ?Confirmed ?Type albuterol sulfate 90 mcg/actuation 2 inh inhalation Q6H PRN shortness 10/21/22 12/20/23 History breath activated powder inhaler of breath or wheezing aripiprazole 30 mg tablet (Abilify) 30 mg PO QDAY 10/21/22 12/20/23 History diclofenac sodium 50 mg 50 mg PO BID 10/21/22 12/20/23 History tablet,delayed release fluoxetine 40 mg capsule (Prozac) 80 mg PO QDAY 10/21/22 12/20/23 History omeprazole 40 mg capsule,delayed 80 mg PO DAILY 10/21/22 12/20/23 History release ropinirole 1 mg tablet 2 mg PO QDAY PRN restless leg(s) 10/21/22 12/20/23 History amitriptyline 25 mg tablet 25 mg PO BEDTIME 09/15/23 12/20/23 History ojjzrmdevw-znyjihsbcaypi-bufwrfci 1 tab PO Q4H PRN Migraine Headache 09/17/23 12/20/23 Rx 50 mg-325 mg-40 mg tablet #30 tabs levothyroxine 50 mcg tablet 50 mcg PO QDAY #30 tabs 09/17/23 12/20/23 Rx (Euthyrox) diazepam 10 mg tablet 10 mg PO ONCE 12/06/23 12/20/23 History oxycodone-acetaminophen 5 mg-325 1 tab PO DAILY PRN pain #30 tabs 12/16/23 Rx mg tablet (Percocet) oxycodone-acetaminophen 5 mg-325 1 tab PO DAILY PRN pain #30 tabs 01/19/24 Rx mg tablet (Percocet) Allergies Allergy/AdvReac Type Severity Reaction Status Date / Time sumatriptan [From Imitrex] Allergy Severe Palpitation Verified 12/20/23 08:41 s Exam Constitutional Documenting provider has reviewed patient's vital signs: yes Common normals: no apparent distress, oriented x3, healthy appearing, alert and well nourished General appearance: cooperative [facility] Common normals: normocephalic, hearing grossly normal bilaterally and moist oral mucous membranes Head and scalp: normocephalic Eye Common normals: PERRL Pupil: PERRL Neck & C-Spine Common normals: full ROM General: normal visual inspection Chest Common normals: inspection of chest normal Respiratory Common normals: normal respiratory effort, no retractions and no use of accessory muscles Back & Pelvis Thoracic spine/upper back: ROM limited and pain with ROM Lumbar spine/lower back: ROM limited, pain with ROM and straight leg raise negative bilaterally Other: predominately axial low back pain, pain and tenderness across T12-L2 facets no radiculopathy facet loading positive bilaterally Extremity Common normals: normal to inspection and full ROM Other: mild to moderate pain over bilateral GTB mild pain with left internal log roll Neuro Common normals: oriented x3, CN's II-XII intact bilaterally, moves all extremities, no focal motor deficits, no sensory deficits noted and deep tendon reflexes 2+ bilaterally Sensorium/orientation: alert Gait (neuro): antalgic Motor exam: strength 5/5 throughout and no movement abnormalities noted Psych Common normals: mental status grossly normal, thought process normal, cooperative, affect normal, speech normal and activity/motor behavior normal Speech: normal speech Thought process: normal thought process Results Additional Findings Additional findings: If on a controlled substance or opioids, I have checked an OARRS report on this patient and there are no aberrancies noted in the prescribing history.??If on a controlled substance or opioid a drug screen was completed and reviewed within the last year, and if there has not been a drug screen completed we ordered one today to monitor higher risk, state monitored pain medication use. As part of providing excellent, safe, comprehensive care, the following was completed at our patient's visit: 1. A medication reconciliation and review to ensure accurate knowledge of current/active medications, including asking our patients to inform us about any mlyi-maz-tlsvler medications or herbal remedies/nutritional supplements/alternative remedies. 2. A review to specifically ensure our patients have had annual screening for screening for depression, screening for tobacco use, and screening for unhealthy alcohol use. For concerning screenings had a discussion with the patient, provided patient education, and recommended follow-up with primary care provider when appropriate. If patient noted with a risk of falling, they received education on strength, gait, and balance training to prevent future risk of falling. Assessment and Plan Assessment and Plan (1) Lumbar spondylosis: (2) Greater trochanteric bursitis of both hips: (3) Encounter for long-term opiate analgesic use: Assessment and Plan: I feel these medications are improving the patient's quality of life and allow them to tolerate activities of daily living as well as participate in recreational activity.? The patient does not report intolerable side effects. The patient is NOT opioid naive and non-pharmacologic and non-opioid treatment has failed to significantly relieve the patient's pain and improve functionality. The patient has a diagnosis that is related to a somatic or visceral pain etiology. ? ?? I reviewed with the patient the potential risks and side effects with the use of? opioid medications including but not limited to respiratory depression,? sedation, and even . I verified the patient has access to naloxone should? these effects occur. I advised the patient to avoid the use of any other? sedation substances including alcohol, THC, and benzodiazepines while? taking opioid medications due to the risk of compounding side effects and? detrimental outcomes. I reviewed the [employer], pain treatment agreement, urine? drug screen, and opioid start talking forms. The patient was advised to let? their family know they had Naloxone in case they would need to administer? the medication.? ?? A drug screen was completed within the last year, and no aberrancies were noted regarding their use of controlled substances. The patient understands they are subject to the terms and conditions of the pain contract that they have signed. ? ?? I have checked an OARRS report on this patient today and there are no aberrancies noted in the prescribing history.? (4) Thoracic spondylosis: (5) Muscle spasm: Plan left and right L1-2 L2-3 facet medial branch thermal RFA providing no relief at this time, may be a delayed reaction but consider lower thoracic facets in the future repeat bilateral GTB injections in office with Dr Vicente continue current medications, continues to work and have improved quality of life with the assistance of her medications f/u after procedures complete
== END 2024-01-25 10:10 | disposition home or self-care (01) ==
LOC: PM 10:09
PROVIDERS: PCP Nurse Practitioner Family; Visit Provider Nurse Practitioner
DX: M47.816 Spondylosis without myelopathy or radiculopathy, lumbar region (principal); M70.62 Trochanteric bursitis, left hip; M70.61 Trochanteric bursitis, right hip; Z79.891 Long term (current) use of opiate analgesic; M47.814 Spondylosis without myelopathy or radiculopathy, thoracic region; M62.838 Other muscle spasm
CPT/HCPCS: G0463

== ENCOUNTER 2024-02-07 14:17 | Outpatient (OUT) | payer MEDICARE, SELFPAY ==
--- NOTE | 2024-02-07 | CONS_ITS ---
CONSULTATION DATE: 02/07/2024 TO: Natividad Milton CNP CHIEF COMPLAINT: Includes bilateral knee pain. HISTORY OF PRESENT ILLNESS: Review of systems, past medical/surgical history were obtained and documented on the health questionnaire and is available upon request. She reports having 5-7/10 pain occurring in her knees bilaterally. She reports she had been having long standing knee pain for at least the last six months, and since that time, she has undergone activity modification. She has been using diclofenac orally, 50 mg b.i.d., on and off for the last six months, as well as intermittent Tylenol. She has also been refractory to Percocet, which she uses infrequently as well. She denies any change in bowel and bladder habits or new sensorimotor changes in the lower extremities. She reports the pain increases with activities such as standing, walking and performing transitioning maneuvers. She feels most comfortable in the semi-recumbent position. EXAMINATION: Notable for patient having no clinical radiculopathy or myelopathy involving the lower extremities. Patient did have mild edema of her knee joints bilaterally with a moderate amount of tenderness of her knee joints bilaterally, especially in the medial aspect. She had pain with medial compartment loading maneuvers bilaterally, a fair amount of myofascial tenderness and spasm of the gastrocnemius and hamstring muscles bilaterally. No appreciable drawer sign. She had no appreciable J sign. IMPRESSION: Our impression is patient with chronic pain secondary to bilateral knee joint degenerative joint disease. She had failed physical therapy for the same. She reports the time she went to physical therapy was approximately 4-6 weeks ago. RECOMMENDATIONS: I recommend she proceed with a bilateral knee joint injection under fluoroscopic guidance. Will also obtain bilateral knee films as well. As part of providing excellent, safe, comprehensive care, the following was completed at our patient's visit: 1. A medication reconciliation and review to ensure accurate knowledge of current/active medications, including asking our patients to inform us about any zpru-bwq-cdozqiu medications or herbal remedies/nutritional supplements/alternative remedies. 2. A review to specifically ensure our patients have had annual screening for: elevated body mass index (BMI, see intake chart for exact total), tobacco use, screening for depression, and screening for unhealthy alcohol use. When screening is concerning, patients are provided with education and the specific recommendation to discuss the concerning health issue and treatment options with their primary care provider. NATAN
--- NOTE | 2024-02-07 | CONS_ITS ---
PROCEDURE DATE: 02/07/2024 PROCEDURE: Bilateral trochanteric bursa injection. PREOPERATIVE DIAGNOSIS: Pain secondary to bilateral trochanteric bursitis. POSTOPERATIVE DIAGNOSIS: Pain secondary to bilateral trochanteric bursitis. SOLUTION USED FOR INJECTION: 2 mL of 2% lidocaine, 2 mL of 0.25% Marcaine and 22 mg of Kenalog, total of 5 mL, and 5 mL used for the injection at each site. IMMEDIATE COMPLICATIONS: None. PROCEDURE: After informed consent was obtained from the patient, placed in a semi-flexed position. Skin overlying the area was prepped with alcohol. A 25 gauge, 1 ? ? needle inserted into the substance right greater trochanteric bursa, at a point just proximal to the insertion of the right gluteus medius. After encountering the same, we injected 5 mL of solution in divided doses. Repeated in a similar fashion on the contralateral side. Post procedure, needle was removed. She reports a reduction of pain symptoms post procedurally. NATAN
== END 2024-02-07 14:18 | disposition home or self-care (01) ==
LOC: PM 14:17
PROVIDERS: PCP Nurse Practitioner Family; Visit Provider Anesthesiology Pain Medicine
DX: M70.62 Trochanteric bursitis, left hip (principal); M70.61 Trochanteric bursitis, right hip
CPT/HCPCS: 20610; J0665; J3301

== ENCOUNTER 2024-02-16 15:29 | Outpatient (OUT) | payer MEDICARE, SELFPAY ==
--- NOTE | 2024-02-16 15:35 | XR_ITS ---
[address] [address] Patient Name: MELANIE TOMPKINS MRN: [id number] date: 1955 Sex: F Assigned Patient Location: [facility] Current Patient Location: [facility] Accession/Order Number: [id number] Exam Date: 02/16/2024 15:40 Report Date: 02/18/2024 04:52 At the request of: NON-STAFF PHYSICIAN Procedure: XR knee LUANA 4V EXAMINATION: XR knee LUANA 4V HISTORY: Bilateral knee pain COMPARISON: XR knee bilateral 01/29/2022 FINDINGS: RIGHT FINDINGS: BONES: Mild narrowing of the anterior and medial joint spaces. Small-moderate size periarticular degenerative osteophytes involving all 3 compartments. No fracture, dislocation, or bone lesion. SOFT TISSUES: No visible soft tissue swelling. OTHER: Negative. LEFT FINDINGS: BONES: Mild narrowing of the anterior and medial joint spaces. Large periarticular degenerative osteophytes involving all 3 compartments. No fracture, dislocation, or bone lesion. SOFT TISSUES: No visible soft tissue swelling. OTHER: Small joint effusion. XR/XR knee LUANA 4V IMPRESSION: RIGHT CONCLUSION: Mild-moderate degenerative joint disease; stable to slightly progressed. LEFT CONCLUSION: Moderate degenerative joint disease and small joint effusion; stable to slightly progressed. Electronically authenticated by: RAUDEL ESTRADA Date: 02/18/2024 04:52
--- OUTSIDE RECORDS SUMMARY | 2024-02-16 15:41 | XMS_ITS | CCD ---
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 Performed By: #### H STROPN, CMP ####[facility] [address] [place] [address]Dr. Deborah Mohan XR CHEST 1 Von 04-07-2022 [...] by: ANDERSON ALMANZAR Date: 2022-04-07 03:[address] [facility] HEMOGLOBINon 03-12-2022 Hemoglobin (Bld) [Mass/Vol] 9.2 g/dL Critically low 12.0-16.[address] [facility] Comment on above: Performed By: #### A NARF #### [facility] [address] [place] [address] [address] Deborah Mohan ANTI NEUTROPHIL CYTOPLASMIC AB (ANCA) PRon 03-09-2022 Anti-MPO Antibodies <0.2 Normal 0.0-0.9 [facility] Comment on above: Result Comment: Perf ormed at: BN Performed By: #### B COMPENSATION ANALYST, HSTROPN, CMP #### [facility] [address] [place] [address] [address] Deborah Mohan Anti-PR3 Antibodies <0.2 Normal 0.0-0.9 The [facility] Comment on above: Result Comment: Perf ormed at: BN Performed By: #### B COMPENSATION ANALYST, HSTROPN, CMP #### [facility] [address] [place] [address] Dr. Deborah Mohan Atypical pANCA 1:160 Critically high Neg:<1:20 [facility] Comment on above: Result Comment: The atypical pANCA pattern has been observed in a significant percentage of patients with ulcerative colitis, primary sclerosing cholangitis and autoimmune hepatitis. Performed at: CB Performed By: #### B COMPENSATION ANALYST, HSTROPN, CMP #### [facility] [address] [place] [address] [address] Deborah Mohan Cytoplasmic (C-ANCA) <1:20 Normal Neg:<1:[address] [facility] Comment on above: Result Comment: Perf ormed at: CB Performed By: #### B COMPENSATION ANALYST, HSTROPN, CMP #### [facility] [address] [place] [address] [address] Deborah Mohan Perinuclear (P-ANCA) <1:20 Normal Neg:<1:[address] [facility] Comment on above: Result Comment: The presence of positive fluorescence exhibiting P-ANCA or C-ANCA patterns alone is not specific for the diagnosis of Marlin's Granulomatosis (WG) or microscopic polyangiitis. Decisions about treatment should not be based solely on ANCA IFA results. The International ANCA Group Consensus recommends follow up testing of positive sera with both MT-3 and MPO-ANCA enzyme immunoassays. As many as 5% serum samples are positive only by EIA. Ref. AM J Clin Pathol 1999;111:507-513. Performed at: CB Performed By: #### B COMPENSATION ANALYST, HSTROPN, CMP #### [facility] [address] [place] [address] Dr. Deborah Mohan ANTISCLERODERMA ABon 022 Antiscleroderma-70 Antibodies <0.2 Normal 0.0-0.[address] [facility] Comment on above: Performed By: #### A NARF #### [facility] [address] [place] [address] CHEST WO CONon [...] incidental findings, as described above. Normal [facility] CYCLIC CITRULLINATED PEPTIDE AB (CCP)on 03-09-2022 CCP Antibodies IgG/IgA 6 units Normal 0-19 [facility] Comment on above: Result Comment: Nega tive <20 Weak positive 20 - 39 Moderate positive 40 - 59 Strong positive >59 Performed By: #### B COMPENSATION ANALYST, HSTROPN, CMP #### [facility] [address] [place] [address] [address] Deborah Mohan IGG SUBCLASSES (1-4) AND TOT Kade 03-09-2022 IgG, Subclass 1 448 mg/dL Normal 248-810 [facility] Comment on above: Performed By: #### B COMPENSATION ANALYST, HSTROPN, CMP #### [facility] [address] [place] [address] [address] Deborah Mohan IgG, Subclass 2 253 mg/dL Normal 130-555 [facility] Comment on above: Performed By: #### B COMPENSATION ANALYST, HSTROPN, CMP #### [facility] [address] [place] [address] [address] Deborah Mohan IgG, Subclass 3 95 mg/dL Normal 15-[address] [facility] Comment on above: Performed By: #### B COMPENSATION ANALYST, HSTROPN, CMP #### [facility] [address] [place] [id number] [address] Deborah Mohan IgG, Subclass 4 10 mg/dL Normal 2-[address] [facility] Comment on above: Performed By: #### B COMPENSATION ANALYST, HSTROPN, CMP #### [facility] [address] [place] [id number] [address] Deborah Mohan Immunoglobulin G, Qn, Serum 658 mg/dL Normal 586-1602 [facility] Comment on above: Performed By: #### B COMPENSATION ANALYST, HSTROPN, CMP #### [facility] [address] [place] [id number] [address] Deborah Mohan IMMUNOGLOBULIN E, TOTALon Immunoglobulin E, Total 5 IU/mL Critically low 6-495 [facility] Comment on above: Performed By: #### I GETOT ####[facility] [address] [place] [phone] Mohan MICHELL EIA W/REFLEX 5 BIOMARKER Son 03-08-2022 MICHELL Direct Negative Normal Negative [facility] Comment on above: Performed By: #### A NARF #### [facility] [address] [place] [address] [address] Deborah Mohan ANGIOTENSION-CONVERTING ENZY ME (FRANCESCO)on 03-08-2022 FRANCESCO 32 U/L Normal 14-[address] [facility] Comment on above: Performed By: #### A NGIOC ####[facility] [address] [place] [address]DrAnkur Mohan ANTIGLOMERULAR BASEMENT MEMB ROMMEL ABSon 03-08-2022 Anti-GBM Antibodies <0.2 Normal 0.0-0.9 [facility] Comment on above: Performed By: #### A GBM #### [facility] [address] [place] [address] [address] Deborah Mohan IMMUNOGLOBULIN IGA QUANTITIA VEon 03-06-2022 Immunoglobulin A, Qn, Serum 229 mg/dL Normal 87-[address] [facility] Comment on above: Performed By: #### A NARF #### [facility] [address] [place] [address] [address] Deborah Mohan IMMUNOGLOBULIN IGM QUANTITAT IVEon 03-06-2022 Immunoglobulin M, Qn, Serum 83 mg/dL Normal 26-[address] [facility] Comment on above: Performed By: #### B COMPENSATION ANALYST, HSTROPN, CMP #### [facility] [address] [place] [address] [address] Deborah Mohan RHEUMATOID FACTORon 03-06-20 22 RA Latex Turbid. 10.9 IU/mL Normal <14.0 [facility] Comment on above: Performed By: #### R F ####[facility] [address] [place] [address]Dr. Deborah Mohan CREATININEon 03-05-2022 Creatinine [Mass/Vol] 1.38 mg/dL Critically high 0.55-1.[address] [facility] Comment on above: Performed By: #### C MELVINA ####[facility] [address] [place] [address]Dr. Deborah Mohan EGFR-AF NICARAGUAN 46 mL/min/1.73m2 Critically low >=60 [facility] Comment on above: Performed By: #### C MELVINA ####[facility] [address] [place], [place] [address]Be. Deborah Marques EGFR-NON AF NICARAGUAN 38 mL/min/1.73m2 Critically low >=[address] [facility] Comment on above: Performed By: #### C MELVINA ####[facility] [address] [place], [place] [address]Ha. Deborah Mohan [facility] SED [facility] 92 mm/hr Critically high <=30 [facility] Comment on above: Performed By: #### B COMPENSATION ANALYST, HSTROPN, CMP #### [facility] [address] [place], [place] [address] Dr. Deborah Mohan XR DEXA BONE DENSITYon [...] CONDON Date: 2022-03-05 16:[address] [facility] XR CHEST 1 Von 03-01-2022 [...] NOVAK Date: 2022-02-28 22:[address] [facility] XR KNEE LUANA 4V or [...] RAUDEL ESTRADA Date: 2022-01-29 11:09 Normal [facility] CBC AUTO DIFFon 11-29-2021 BASO # 0.1 103/ul Normal 0.0-0.[address] [facility] Comment on above: Performed By: #### C BC ####[facility] [address] [place] [address]Dr. Deborah Mohan Basophils/100 WBC (Bld) 0.8 % Normal 0.2-2.0 [facility] Comment on above: Performed By: #### C BC ####[facility] [address] [place], [place] [address]Dr. Ann-Mariemich Mohan EO # 0.3 103/ul Normal 0.0-0.7 [facility] Comment on above: Performed By: #### C BC ####[facility] [address] [place] [address]Dr. Deborah Mohan Eosinophils/100 WBC (Bld) 2.2 % Normal 0.9-7.0 [facility] Comment on above: Performed By: #### C BC ####[facility] [address] [place] [address]Dr. Ann-Mariemich Mohan Erythrocyte distribution width (RBC) [Ratio] 21.2 % Critically high 11.0-15.0 [facility] Comment on above: Performed By: #### C BC ####[facility] [address] [place], [place] [address]Dr. Deborah Mohan Hematocrit (Bld) [Volume fraction] 33.2 % Critically low 36.0-48.0 [facility] Comment on above: Performed By: #### C BC ####[facility] [address] [place] [address]Dr. Deborah Mohan Hemoglobin (Bld) [Mass/Vol] 10.3 g/dL Critically low 12.0-16.0 [facility] Comment on above: Performed By: #### C BC ####[facility] [address] [place] [address]Dr. Deborah Marques IG # 0.11 10e3/ul Critically high 0.00-0.03 [facility] Comment on above: Performed By: #### C BC ####[facility] [address] [place] [address]Dr. Ann-Mariemich Mohan IG % 0.9 % Critically high 0.0-0.[address] [facility] Comment on above: Performed By: #### C BC ####[facility] [address] [place] [address]Dr. Ann-Mariemich Mohan LYMPH # 2.2 103/ul Normal 1.2-3.8 [facility] Comment on above: Performed By: #### C BC ####[facility] [address] [place] [address]DrAnkur Deborah Marques Lymphocytes/100 WBC (Bld) 18.5 % Critically low 20.5-60.0 [facility] Comment on above: Performed By: #### C BC ####[facility] [address] [place] [address]DrAnkur Ann-Mariemich Mohan MANUAL DIFF REQ NO Normal [facility] Comment on above: Performed By: #### C BC ####[facility] [address] [place] [address]DrAnkur Deborah Marques MCH (RBC) [Entitic mass] 26.3 pg Critically low 26.7-34.0 [facility] Comment on above: Performed By: #### C BC ####[facility] [address] [place] [address]Dr. Deborah Mohan MCHC (RBC) [Mass/Vol] 31.0 g/dL Normal 29.9-35.2 [facility] Comment on above: Performed By: #### C BC ####[facility] [address] [place] [phone]. Deborah Mohan MCV (RBC) [Entitic vol] 84.9 fL Normal 81.0-99.0 [facility] Comment on above: Performed By: #### C BC ####[facility] [address] [place] [phone]. Deborah Marques MONO # 0.6 103/ul Normal 0.3-0.8 [facility] Comment on above: Performed By: #### C BC ####[facility] [address] [place] [address]Dr. Ann-Mariemich Mohan Monocytes/100 WBC (Bld) 5.3 % Normal 1.7-12.0 [facility] Comment on above: Performed By: #### C BC ####[facility] [address] [place] [address]Dr. Deborah Marques NEUT # 8.4 103/ul Critically high 1.4-6.[address] [facility] Comment on above: Performed By: #### C BC ####[facility] [address] [place] [phone]. Deborah Marques Neutrophils/100 WBC (Bld) 72.3 % Normal 43.0-75.0 [facility] Comment on above: Performed By: #### C BC ####[facility] [address] [place] [address]Dr. Deborah Marques Platelet mean volume (Bld) [Entitic vol] 10.1 fL Normal 9.5-13.5 [facility] Comment on above: Performed By: #### C BC ####[facility] [address] [place] [phone]. Deborah Marques PLT 351 103/ul Normal 150-450 [facility] Comment on above: Performed By: #### C BC ####[facility] [address] [place], [place] [address]Se. Deborah Mohan RBC 3.91 106/ul Critically low 4.20-5.[address] [facility] Comment on above: Performed By: #### C BC ####[facility] [address] [place], [place] [address]TbAnkur Mohan WBC 11.6 103/ul Critically high 4.0-11.0 The [facility] Comment on above: Performed By: #### C BC ####[facility] [address] [place], [place] [address]Ye. Deborah Mohan CTA CHEST WO W CONon [...] 2. Bilateral peripheral fibrosis and/or scarring with uhuc-tg-qbsazfau groundglass densities. The groundglass densities are slightly decreased compared to the prior scan. 3. Old calcified granulomas in the chest and abdomen. 4. Large hiatal hernia. 5. Moderate diffuse osteopenia. Electronically authenticated by: BERNARDO DENNY Date: 2021-11-29 20:31 Normal [facility] D-DIMERon 11-29-2021 D-DIMER 1.14 mg/L FEU Critically high <=0.59 [facility] Comment on above: Performed By: #### A NARF #### [facility] [address] [place] [address] Dr. Deborah Mohan D-DIMER COMMENTS SEE BELOW Normal [facility] Comment on [...] hospitalization. Performed By: #### A NARF #### [facility] [address] [place] [address] Dr. Deborah Mohan PROF CHEM 8 (BAS METB)on Anion gap [Moles/Vol] 11.7 mmol/L Normal [facility] Comment on above: Performed By: #### B MP, HSTROPN #### [facility] [address] [place] [address] [address] Deborah Mohan Calcium [Mass/Vol] 8.7 mg/dL Normal 8.5-10.1 [facility] Comment on above: Performed By: #### B MP, HSTROPN #### [facility] [address] [place] [address] [address] Deborah Mohan Chloride [Moles/Vol] 107 mmol/L Normal 98-[address] [facility] Comment on above: Performed By: #### B KYLEE, HSTROPN #### [facility] [address] [place] [address] [address] Deborah Mohan CO2 [Moles/Vol] 25.3 mmol/L Normal 21.0-32.0 [facility] Comment on above: Performed By: #### B MP, HSTROPN #### [facility] [address] [address] [address] Deborah Mohan Creatinine [Mass/Vol] 0.98 mg/dL Normal 0.55-1.[address] [facility] Comment on above: Performed By: #### B KYLEE, HSTROPN #### [facility] [address] [place] [address] Dr. Deborah Mohan EGFR-AF NICARAGUAN >60 Normal >=60 [facility] Comment on above: Performed By: #### B KYLEE, HSTROPN #### [facility] [address] [place] [address] Dr. Deborah Mohan EGFR-NON AF NICARAGUAN 56 mL/min/1.73m2 Critically low >=[address] [facility] Comment on above: Performed By: #### B KYLEE, HSTROPN #### [facility] [address] [place] [address] Dr. Deborah Mohan Glucose [Mass/Vol] 105 mg/dL Normal 74-106 [facility] Comment on above: Performed By: #### B KYLEE, HSTROPN #### [facility] [address] [place] [address] Dr. Deborah Mohan Potassium [Moles/Vol] 4.0 mmol/L Normal 3.5-5.1 [facility] Comment on above: Performed By: #### B MP, HSTROPN #### [facility] [address] [place] [address] Dr. Deborah Mohan Sodium [Moles/Vol] 140 mmol/L Normal 136-145 [facility] Comment on above: Performed By: #### B KYLEE, HSTROPN #### [facility] [address] [place] [address] Dr. Deborah Mohan Urea nitrogen [Mass/Vol] 21.0 mg/dL Critically high 7.0-18.[address] [facility] Comment on above: Performed By: #### B KYLEE HSTROPN #### [facility] [address] [place], [place] [address] Dr. Deborah Mohan Urea nitrogen/Creatinine [Mass ratio] 21.4 mg/mg Normal [facility] Comment on above: Performed By: #### B KYLEE, HSTROPN #### [facility] [id number] Deborah Mohan TROPONIN, HIGH SENSITIVITYon 11-29-2021 HSTROP 4.5 pg/mL Normal 4.0-51.3 [facility] Comment on above: Result Comment: CUT- OFF POINTS HAVE BEEN ESTABLISHED BASED ON THE FOURTH UNIVERSAL DEFINITIONS OF MYOCARDIAL INFARCTION. THE UPPER REFERENCE LIMIT (URL) OF TROPONIN, DEFINED THE 99TH PERCENTILE OF cTnI DISTRIBUTION IN A REFERENCE POPULATION, HAS BEEN CONFIRMED THE DECISION THRESHOLD FOR WI DIAGNOSIS. Performed By: #### H STROPN ####[facility] [id number] [place], [place] [address]BiDr. Deborah Mohan HSTROP 6.0 pg/mL Normal 4.0-51.3 [facility] Comment on above: Result Comment: CUT- OFF POINTS HAVE BEEN ESTABLISHED BASED ON THE FOURTH UNIVERSAL DEFINITIONS OF MYOCARDIAL INFARCTION. THE UPPER REFERENCE LIMIT (URL) OF TROPONIN, DEFINED THE 99TH PERCENTILE OF cTnI DISTRIBUTION IN A REFERENCE POPULATION, HAS BEEN CONFIRMED THE DECISION THRESHOLD FOR WI DIAGNOSIS. Performed By: #### B KYLEE, HSTROPN #### [facility] [id number] Deborah Mohan XR CHEST 1 Von [...] KANDY BARRY Date: 2021-11-29 19:20 Normal [facility] XR LSPINE W_OBLS AND FLEX_EX Ton [...] RAUDEL ESTRADA Date: 2021-11-12 07:56 Normal [facility] CALCIUMon 11-11-2021 Calcium [Mass/Vol] 9.0 mg/dL Normal 8.5-10.1 [facility] Comment on above: Performed By: #### A NARF #### [facility] [address] [place] [address] Dr. Deborah Mohan CREATININEon 11-11-2021 Creatinine [Mass/Vol] 1.47 mg/dL Critically high 0.55-1.[address] [facility] Comment on above: Performed By: #### A NARF #### [facility] [address] [address] [address] Deborah Mohan EGFR-AF NICARAGUAN 43 mL/min/1.73m2 Critically low >=60 [facility] Comment on above: Performed By: #### A NARF #### [facility] [address] [place] [address] Dr. Deborah Mohan EGFR-NON AF NICARAGUAN 35 mL/min/1.73m2 Critically low >=[address] [facility] Comment on above: Performed By: #### A NARF #### [facility] [address] [place] [address] Dr. Deborah Mohan Encounters Encounter Date Encounter Type Care Provider Facility Start: 03-20-2024 ambulatory Anderson PULLIAM Facility :[facility] Start: 02-10-2024 ambulatory Anderson VILLANUEVAEsperanza Facility:[facility] Start: 11-28-2023 End: 11-28-2023 ambulatory [facility] Start: 10-18-2023 End: 10-18-2023 ambulatory [facility] Start: 08-01-2023 End: 08-02-2023 ambulatory Gabriella Woodruff MD Facility:[facility] Start: 10-05-2022 End: 10-06-2022 ambulatory MARGUERITE WILDESHMIPATHY . Facility:[facility] Start: 09-17-2022 End: 09-17-[address] INGRID ESPINAL Facility:[facility] Start: 08-26-2022 ambulatory NARHEMANTRANATH LAKSHMIPATHY . Facility:[facility] Start: 08-24-2022 End: 08-24-2022 ambulatory NATIVIDAD SILVA Facility:[facility] Start: 07-08-2022 End: 07-09-2022 ambulatory JOEL RAMON . Facility:[facility] Start: 07-06-2022 End: 07-07-2022 ambulatory NATIVIDAD SILVA Facility:[facility] Start: 06-24-2022 End: 06-25-2022 ambulatory JOEL RAMON . Facility:[facility] Start: 05-21-2022 ambulatory NATIVIDAD SILVA Facility: [facility] Start: 05-08-2022 End: 05-08-2022 ambulatory Clarita Leigh Facility:[facility] Start: 05-08-2022 End: 05-08-2022 ambulatory DISPLAY CARVER-C Clarita Leigh Work Phone: [facility] Work Phone: Start: 05-08-2022 End: 05-08-2022 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 procedure DISPLAY CARVER-C Clarita Leigh Work Phone: [facility] Start: 04-08-2022 End: 04-09-2022 ambulatory JOEL RAMON . Facility: Start: 04-07-2022 End: 04-07-2022 ambulatory NATIVIDAD SILVA [...] Facility:[facility] Start: 11-29-2021 End: 11-30-2021 ambulatory NATIVIDAD ISLVA Facility:[facility] Start: 11-11-2021 End: 11-13-[address] LUISITO TOWNSEND . Facility:[facility] Start: 11-05-2021 End: 11-06-2021 ambulatory JOEL RAMON . Facility:[facility] Start: 04-01-2018 End: 04-01-2018 Emergency department patient visit BRANDON RUSSELL [facility] Start: 12-11-2017 End: 12-11-2017 Emergency department patient visit ROBERT HURLEY Facility:[facility] Procedures Date Procedure Procedure Detail Performing Clinician Start: 05-08-2022 Plain X-ray of left wrist DISPLAY CARVER-C Clarita Leigh Work Phone: Start: 05-08-2022 X-ray of left ankle DISPLAY CARVER -C Clarita Leigh Work Phone: Start: 04-01-2018 IP CONSULT TO ORAL SURGERY BRANDON RUSSELL Payers Date Payer Category Payer Unknown 2022 Medicare [id number] 2022 Self-pay 1959 Unknown [id number] 1953 Unknown [id number] 2.16.84 0.1.817747.3.579.2.593 1953 Unknown [id number] 2.16.84 0.1.657467.3.579.2.593 1953 Unknown [id number] 2.16.84 0.1.762432.3.579.2.593 1953 Unknown [id number] 2.16.84 0.1.456485.3.579.2.593 1953 Unknown [id number] 2.16.84 0.1.525462.3.579.2.593 1953 Unknown [id number] 2.16.84 0.1.113012.3.579.2.593 1953 Unknown [id number] 2.16.84 0.1.987100.3.579.2.593 1953 Unknown [id number] 2.16.84 0.1.377890.3.579.2.593 1953 Unknown [id number] 2.16.84 0.1.411173.3.579.2.593 1953 Unknown [id number] 2.16.84 0.1.547046.3.579.2.593 1953 Unknown [id number] 2.16.84 0.1.804533.3.579.2.593 1953 Unknown [id number] 2.16.84 0.1.198748.3.579.2.593 1953 Unknown [id number] 2.16.84 0.1.949459.3.579.2.593 1953 Unknown [id number] 2.16.84 0.1.279528.3.579.2.593 1953 Unknown [id number] 2.16.84 0.1.589955.3.579.2.593 1953 Unknown [id number] 2.16.84 0.1.383187.3.579.2.593 1953 Unknown [id number] 2.16.84 0.1.446514.3.579.2.593 1953 Unknown [id number] 2.16.84 0.1.264086.3.579.2.593 1953 Unknown [id number] 2.16.84 0.1.070609.3.579.2.593 1953 Unknown [id number] 2.16.84 0.1.174995.3.579.2.593 1953 Unknown [id number] 2.16.84 0.1.920193.3.579.2.593 1953 Unknown [id number] 2.16.84 0.1.837317.3.579.2.593 1953 Unknown [id number] 2.16. 840.1.137637.3.579.2.196 1953 Unknown [id number] 2.16.8 40.1.291504.3.579.2.727 Medicare [id number] Unknown [facility] [id number] Unknown [employer] [id number] Unknown [id number] 2.16.8 40.1.383419.3.579.2.531 Social History Date Type Detail Facility [facility] [place] [facility] Work Phone: Start: 1955 Sex Assigned At Female F [facility] Clinical Notes 11-05-2021 to 11-28-2023 Note Date & Type Note Facility 11-28-2023 Note [facility] Cardiology Clinic Note Chief Complaint: Patient [...] mouth in the morning., Disp: , Rfl: pskwhqtose-ubyybmrqzzanb-dkyr 50-325-40 mg tablet, Take 1 tablet by [...] sinus rhythm Echocar (more content not included)... [facility] 10-18-2023 Note [facility] Cardiology Clinic Note Chief Complaint: New patient here to establish care. Ref from Dr. Townsend for abnormal EKG. She also wore 7 day Holter monitor, and says she did not work while wearing this. She works at [employer] and says it's very fast paced. States she drinks a 5 Hour [employer] shot almost every day. She was admitted to [facility] for migraine recently and was found to have abnormal EKG. Recently has noticed a twinge of chest pain. C/o DAI, palpitations, and lightheadedness. HPI: Mary Vick is a 68 y.o. female With a history of hypertension and hypothyroidism who presents due to an abnormal Holter monitor She was admitted to the [facility] for migraine; a monitor revealed [...] Plan: Routine labs (more content not included)... [facility] 07-08-2022 Note CONSULTATION PROCEDURE DATE: 07/08/2022 HISTORY [...] in the clinic in three months. [facility] 06-24-2022 Note CONSULTATION CONSULTATION DATE: [...] at a time, as she works at [employer]. Current medications include Percocet 5/325 daily, [...] pending approval for her knee injections. [facility] 04-08-2022 Note CONSULTATION CONSULTATION DATE: [...] three months' time unless otherwise indicated. [facility] 03-09-2022 Note CONSULTATION CONSULTATION DATE: [...] to proceed. CC: Natividad Silva CNP [facility] 01-28-2022 Note CONSULTATION CONSULTATION DATE: [...] and re-evaluation of her bursa injection. [facility] 01-28-2022 Note CONSULTATION PROCEDURE DATE: [...] be followed up in the clinic. [facility] 11-12-2021 Note PROCEDURE: XR HIPS [...] by: RAUDEL ESTRADA Date: 2021-11-12 07:50 [facility] 11-05-2021 Note CONSULTATION PROCEDURE DATE:11/05/2021 PREOPERATIVE [...] will be followed up in the office. [facility] Signed and Approved by: JOEL RAMON . 11/18/2021 16:24:[address] [facility] 11-05-2021 Note CONSULTATION CONSULTATION DATE: [...] time, was working half a day at [employer] and since then has increased to [...] in three months' time unless otherwise indicated. [facility] Signed and Approved by: JOEL RAMON . 11/18/2021 16:24:00 [facility] Evaluation note No assessment information availa [facility] Work Phone: Summary Purpose Family [...] section and content) DATE CREATED AUTHOR 12/21/2017 [facility] DATE CREATED AUTHOR AUTHOR'S ORGANIZ ATION 05/01/2018 [facility] DATE CREATED AUTHOR AUTHOR'S ORGANIZ ATION 05/17/2022 [facility] DATE CREATED AUTHOR AUTHOR'S ORGANIZ ATION 10/06/2022 [facility] DATE CREATED AUTHOR AUTHOR'S ORGANIZ ATION 08/03/2023 [facility] DATE CREATED AUTHOR AUTHOR'S ORGANIZ ATION 11/28/2023 [facility] DATE CREATED AUTHOR AUTHOR'S ORGANIZ ATION 02/14/2024 [facility] Care Teams (unrecognized sec tion [...] BE BASED ON THE PRIMARY CLINICAL RECORDS. [facility] [employer] provides no warranty or guarantee of the accuracy or completeness of information in this document.
== END 2024-02-16 15:30 | disposition home or self-care (01) ==
LOC: RAD 15:30
PROVIDERS: PCP Nurse Practitioner Family
DX: M25.561 Pain in right knee (principal); M25.562 Pain in left knee; M17.0 Bilateral primary osteoarthritis of knee
CPT/HCPCS: 73564

== ENCOUNTER 2024-02-21 08:25 | Day surgery (SDC) | payer MEDICARE, SELFPAY ==
--- OUTSIDE RECORDS SUMMARY | 2024-02-21 08:40 | XMS_ITS | CCD ---
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 2022-04-07 03:11 Normal [facility] [place] HEMOGLOBINon 03-12-2022 Hemoglobin (Bld) [Mass/Vol] 9.2 g/dL Critically low 12.0-16.0 [facility] [place] Comment on above: Performed By: #### A NARF #### [facility] [address] [place] [address] [address] Deborah Mohan ANTI NEUTROPHIL CYTOPLASMIC AB (ANCA) PRon 03-09-2022 Anti-MPO Antibodies <0.2 Normal 0.0-0.9 [facility] Comment on above: Result Comment: Perf ormed at: BN Performed By: #### B VARNISHER APPRENTICE, HSTROPN, CMP #### [facility] [address] [place] [address] [address] Deborah Mohan Anti-PR3 Antibodies <0.2 Normal 0.0-0.[address] [facility] Comment on above: Result Comment: Perf ormed at: BN Performed By: #### B VARNISHER APPRENTICE, HSTROPN, CMP #### [facility] [address] [place] [address] Dr. Deborah Mohan Atypical pANCA 1:160 Critically high Neg:<1:20 [facility] Comment on above: Result Comment: The atypical pANCA pattern has been observed in a significant percentage of patients with ulcerative colitis, primary sclerosing cholangitis and autoimmune hepatitis. Performed at: CB Performed By: #### B VARNISHER APPRENTICE, HSTROPN, CMP #### [facility] [address] [place] [address] [address] Deborah Mohan Cytoplasmic (C-ANCA) <1:20 Normal Neg:<1:20 [facility] [place] Comment on above: Result Comment: Perf ormed at: CB Performed By: #### B VARNISHER APPRENTICE, HSTROPN, CMP #### [facility] [address] [place] [address] [address] Deborah Mohan Perinuclear (P-ANCA) <1:20 Normal Neg:<1:20 [facility] [place] Comment on above: Result Comment: The presence of positive fluorescence exhibiting P-ANCA or C-ANCA patterns alone is not specific for the diagnosis of Marlin's Granulomatosis (WG) or microscopic polyangiitis. Decisions about treatment should not be based solely on ANCA IFA results. The International ANCA Group Consensus recommends follow up testing of positive sera with both WV-3 and MPO-ANCA enzyme immunoassays. As many as 5% serum samples are positive only by EIA. Ref. AM J Clin Pathol 1999;111:507-513. Performed at: CB Performed By: #### B VARNISHER APPRENTICE, HSTROPN, CMP #### [facility] [address] [place] [address] Dr. Deborah Mohan ANTISCLERODERMA ABon 022 Antiscleroderma-70 Antibodies <0.2 Normal 0.0-0.9 [facility] [place] Comment on above: Performed By: #### A NARF #### [facility] [address] [place] [address] CHEST WO CONon [...] incidental findings, as described above. Normal [facility] CYCLIC CITRULLINATED PEPTIDE AB (CCP)on 03-09-2022 CCP Antibodies IgG/IgA 6 units Normal 0-19 [facility] Comment on above: Result Comment: Nega tive <20 Weak positive 20 - 39 Moderate positive 40 - 59 Strong positive >59 Performed By: #### B VARNISHER APPRENTICE, HSTROPN, CMP #### [facility] [address] [place] [address] [address] Deborah Mohan IGG SUBCLASSES (1-4) AND TOT Kade 03-09-2022 IgG, Subclass 1 448 mg/dL Normal 248-810 [facility] Comment on above: Performed By: #### B VARNISHER APPRENTICE, HSTROPN, CMP #### [facility] [address] [place] [address] [address] Deborah Mohan IgG, Subclass 2 253 mg/dL Normal 130-555 [facility] Comment on above: Performed By: #### B VARNISHER APPRENTICE, HSTROPN, CMP #### [facility] [address] [place] [address] [address] Deborah Mohan IgG, Subclass 3 95 mg/dL Normal 15-102 [facility] Comment on above: Performed By: #### B VARNISHER APPRENTICE, HSTROPN, CMP #### [facility] [address] [place] [id number] [address] Deborah Mohan IgG, Subclass 4 10 mg/dL Normal 2-96 [facility] Comment on above: Performed By: #### B VARNISHER APPRENTICE, HSTROPN, CMP #### [facility] [address] [place] [phone] [address] Deborah Mohan Immunoglobulin G, Qn, Serum 658 mg/dL Normal 586-1602 [facility] Comment on above: Performed By: #### B VARNISHER APPRENTICE, HSTROPN, CMP #### [facility] [address] [place] [id number] [address] Deborah Mohan IMMUNOGLOBULIN E, TOTALon Immunoglobulin E, Total 5 IU/mL Critically low 6-495 [facility] Comment on above: Performed By: #### I GETOT ####[facility] [address] [place] [id number] Mohan MICHELL EIA W/REFLEX 5 BIOMARKER Son 03-08-2022 MICHELL Direct Negative Normal Negative [facility] [place] Comment on above: Performed By: #### A NARF #### [facility] [address] [place] [address] [address] Deborah Mohan ANGIOTENSION-CONVERTING ENZY ME (FRANCESCO)on 03-08-2022 FRANCESCO 32 U/L Normal 14-82 [facility] [place] Comment on above: Performed By: #### A NGIOC ####[facility] [address] [place] [address]DrAnkur Mohan ANTIGLOMERULAR BASEMENT MEMB ROMMEL ABSon 03-08-2022 Anti-GBM Antibodies <0.2 Normal 0.0-0.9 [facility] Comment on above: Performed By: #### A GBM #### [facility] [address] [place] [address] [address] Deborah Mohan IMMUNOGLOBULIN IGA QUANTITIA VEon 03-06-2022 Immunoglobulin A, Qn, Serum 229 mg/dL Normal 87-352 [facility] [place] Comment on above: Performed By: #### A NARF #### [facility] [address] [place] [address] [address] Deborah Mohan IMMUNOGLOBULIN IGM QUANTITAT IVEon 03-06-2022 Immunoglobulin M, Qn, Serum 83 mg/dL Normal 26-217 [facility] [place] Comment on above: Performed By: #### B VARNISHER APPRENTICE, HSTROPN, CMP #### [facility] [address] [place] [address] [address] Deborah Mohan RHEUMATOID FACTORon 03-06-20 22 RA Latex Turbid. 10.9 IU/mL Normal <14.0 [facility] Comment on above: Performed By: #### R F ####[facility] [address] [place] [address]Dr. Deborah Mohan CREATININEon 03-05-2022 Creatinine [Mass/Vol] 1.38 mg/dL Critically high 0.55-1.02 [facility] [place] Comment on above: Performed By: #### C MELVINA ####[facility] [address] [place] [address]Dr. Deborah Mohan EGFR-AF SWAZI 46 mL/min/1.73m2 Critically low >=60 [facility] Comment on above: Performed By: #### C MELVINA ####[facility] [address] [place], [place] [address]Aa. Deborah Marques EGFR-NON AF SWAZI 38 mL/min/1.73m2 Critically low >=60 [facility] [place] Comment on above: Performed By: #### C MELVINA ####[facility] [address] [place], [place] [address]Td. Deborah Mohan [facility] SED [facility]ATE 92 mm/hr Critically high <=30 [facility] Comment on above: Performed By: #### B VARNISHER APPRENTICE, HSTROPN, CMP #### [facility] [address] [place], [place] [address] Dr. Deborah Mohan XR DEXA BONE DENSITYon [...] by: ROBERT CONDON Date: 2022-03-05 16:56 Normal [facility] [place] XR CHEST 1 Von 03-01-2022 XR CHEST [...] by: ROBERT NOVAK Date: 2022-02-28 22:27 Normal [facility] [place] XR KNEE LUANA 4V or >on 2021 [...] RAUDEL ESTRADA Date: 2022-01-29 11:09 Normal [facility] CBC AUTO DIFFon 11-29-2021 BASO # 0.1 103/ul Normal 0.0-0.1 [facility] [place] Comment on above: Performed By: #### C BC ####[facility] [address] [place] [address]Dr. Deborah Mohan Basophils/100 WBC (Bld) 0.8 % Normal 0.2-2.0 [facility] Comment on above: Performed By: #### C BC ####[facility] [address] [place], [place] [address]Dr. Ann-Mariemich Mohan EO # 0.3 103/ul Normal 0.0-0.7 [facility] Comment on above: Performed By: #### C BC ####[facility] [address] [place] [address]Dr. Deborah Mohan Eosinophils/100 WBC (Bld) 2.2 % Normal 0.9-7.0 [facility] Comment on above: Performed By: #### C BC ####[facility] [address] [place] [address]Dr. Ann-Mariemich Mohan Erythrocyte distribution width (RBC) [Ratio] 21.2 % Critically high 11.0-15.0 [facility] Comment on above: Performed By: #### C BC ####[facility] [address] [place], [place] [address]Dr. Deborah Mohan Hematocrit (Bld) [Volume fraction] 33.2 % Critically low 36.0-48.0 [facility] Comment on above: Performed By: #### C BC ####[facility] [address] [place] [address]Dr. Deborah Mohan Hemoglobin (Bld) [Mass/Vol] 10.3 g/dL Critically low 12.0-16.0 [facility] Comment on above: Performed By: #### C BC ####[facility] [address] [place] [address]Dr. Deborah Marques IG # 0.11 10e3/ul Critically high 0.00-0.03 [facility] Comment on above: Performed By: #### C BC ####[facility] [address] [place] [address]Dr. Ann-Mariemich Mohan IG % 0.9 % Critically high 0.0-0.5 [facility] Comment on above: Performed By: #### C BC ####[facility] [address] [place] [address]Dr. Ann-Mariemich Mohan LYMPH # 2.2 103/ul Normal 1.2-3.8 [facility] Comment on above: Performed By: #### C BC ####[facility] [address] [place] [address]DrAnkur Deborah Marques Lymphocytes/100 WBC (Bld) 18.5 % Critically low 20.5-60.0 [facility] Comment on above: Performed By: #### C BC ####[facility] [address] [place] [address]DrAnkur Ann-Mariemich Mohan MANUAL DIFF REQ NO Normal [facility] Comment on above: Performed By: #### C BC ####[facility] [address] [place] [address]DrAnkur Deborah Marques MCH (RBC) [Entitic mass] 26.3 pg Critically low 26.7-34.0 [facility] Comment on above: Performed By: #### C BC ####[facility] [address] [place] [address]Dr. Deborah Mohan MCHC (RBC) [Mass/Vol] 31.0 g/dL Normal 29.9-35.2 [facility] Comment on above: Performed By: #### C BC ####[facility] [address] [place] [phone]. Deborah Mohan MCV (RBC) [Entitic vol] 84.9 fL Normal 81.0-99.0 [facility] Comment on above: Performed By: #### C BC ####[facility] [address] [place] [phone]. Deborah Marques MONO # 0.6 103/ul Normal 0.3-0.8 [facility] Comment on above: Performed By: #### C BC ####[facility] [address] [place] [address]Dr. Ann-Mariemich Mohan Monocytes/100 WBC (Bld) 5.3 % Normal 1.7-12.0 [facility] Comment on above: Performed By: #### C BC ####[facility] [address] [place] [address]Dr. Deborah Marques NEUT # 8.4 103/ul Critically high 1.4-6.5 [facility] Comment on above: Performed By: #### C BC ####[facility] [address] [place] [phone]. Deborah Marques Neutrophils/100 WBC (Bld) 72.3 % Normal 43.0-75.0 [facility] Comment on above: Performed By: #### C BC ####[facility] [address] [place] [address]Dr. Deborah Marques Platelet mean volume (Bld) [Entitic vol] 10.1 fL Normal 9.5-13.5 [facility] Comment on above: Performed By: #### C BC ####[facility] [address] [place] [id number]. Deborah Marques PLT 351 103/ul Normal 150-450 [facility] Comment on above: Performed By: #### C BC ####[facility] [address] [place], [place] [address]Gu. Deborah Mohan RBC 3.91 106/ul Critically low 4.20-5.40 [facility] Comment on above: Performed By: #### C BC ####[facility] [address] [place], [place] [address]NkAnkur Mohan WBC 11.6 103/ul Critically high 4.0-11.[address] [facility] Comment on above: Performed By: #### C BC ####[facility] [address] [place], [place] [address]Uq. Deborah Mohan CTA CHEST WO W CONon [...] 2. Bilateral peripheral fibrosis and/or scarring with jxth-yw-jzninrxd groundglass densities. The groundglass densities are slightly decreased compared to the prior scan. 3. Old calcified granulomas in the chest and abdomen. 4. Large hiatal hernia. 5. Moderate diffuse osteopenia. Electronically authenticated by: BERNARDO DENNY Date: 2021-11-29 20:31 Normal [facility] D-DIMERon 11-29-2021 D-DIMER 1.14 mg/L FEU Critically high <=0.59 [facility] Comment on above: Performed By: #### A NARF #### [facility] [address] [place] [address] Dr. Deborah Mohan D-DIMER COMMENTS SEE BELOW Normal [facility] Comment on above: Result Comment: Incr eases [...] hospitalization. Performed By: #### A NARF #### [facility] [address] [place] [address] Dr. Deborah Mohan PROF CHEM 8 (BAS METB)on Anion gap [Moles/Vol] 11.7 mmol/L Normal [facility] [place] Comment on above: Performed By: #### B MP, HSTROPN #### [facility] [address] [address] [address] Deborah Mohan Calcium [Mass/Vol] 8.7 mg/dL Normal 8.5-10.1 [facility] Comment on above: Performed By: #### B MP, HSTROPN #### [facility] [address] [address] [address] Deborah Mohan Chloride [Moles/Vol] 107 mmol/L Normal 98-107 [facility] [place] Comment on above: Performed By: #### B KYLEE, HSTROPN #### [facility] [address] [address] [address] Deborah Mohan CO2 [Moles/Vol] 25.3 mmol/L Normal 21.0-32.0 [facility] Comment on above: Performed By: #### B MP, HSTROPN #### [facility] [address] [address] [address] Deborah Mohan Creatinine [Mass/Vol] 0.98 mg/dL Normal 0.55-1.02 [facility] [place] Comment on above: Performed By: #### B KYLEE, HSTROPN #### [facility] [address] [place] [address] Dr. Deborah Mohan EGFR-AF SWAZI >60 Normal >=60 [facility] Comment on above: Performed By: #### B KYLEE, HSTROPN #### [facility] [address] [place] [address] Dr. Deborah Mohan EGFR-NON AF SWAZI 56 mL/min/1.73m2 Critically low >=60 [facility] [place] Comment on above: Performed By: #### B KYLEE, HSTROPN #### [facility] [address] [place] [address] Dr. Deborah Mohan Glucose [Mass/Vol] 105 mg/dL Normal 74-106 [facility] Comment on above: Performed By: #### B KYLEE, HSTROPN #### [facility] [address] [place] [address] Dr. Deborah Mohan Potassium [Moles/Vol] 4.0 mmol/L Normal 3.5-5.1 [facility] Comment on above: Performed By: #### B MP, HSTROPN #### [facility] [address] [place] [address] Dr. Deborah Mohan Sodium [Moles/Vol] 140 mmol/L Normal 136-145 [facility] Comment on above: Performed By: #### B KYLEE, HSTROPN #### [facility] [address] [place] [address] Dr. Deborah Mohan Urea nitrogen [Mass/Vol] 21.0 mg/dL Critically high 7.0-18.0 [facility] [place] Comment on above: Performed By: #### B KYLEE HSTROPN #### [facility] [address] [place], [place] [address] Dr. Deborah Mohan Urea nitrogen/Creatinine [Mass ratio] 21.4 mg/mg Normal [facility] Comment on above: Performed By: #### B KYLEE, HSTROPN #### [facility] [address] [place] [id number] [address] Deborah Mohan TROPONIN, HIGH SENSITIVITYon 11-29-2021 HSTROP 4.5 pg/mL Normal 4.0-51.3 [facility] Comment on above: Result Comment: CUT- OFF POINTS HAVE BEEN ESTABLISHED BASED ON THE FOURTH UNIVERSAL DEFINITIONS OF MYOCARDIAL INFARCTION. THE UPPER REFERENCE LIMIT (URL) OF TROPONIN, DEFINED THE 99TH PERCENTILE OF cTnI DISTRIBUTION IN A REFERENCE POPULATION, HAS BEEN CONFIRMED THE DECISION THRESHOLD FOR MA DIAGNOSIS. Performed By: #### H STROPN ####[facility] [address] [place], [place] [address]Dr. Deborah Mohan HSTROP 6.0 pg/mL Normal 4.0-51.3 [facility] Comment on above: Result Comment: CUT- OFF POINTS HAVE BEEN ESTABLISHED BASED ON THE FOURTH UNIVERSAL DEFINITIONS OF MYOCARDIAL INFARCTION. THE UPPER REFERENCE LIMIT (URL) OF TROPONIN, DEFINED THE 99TH PERCENTILE OF cTnI DISTRIBUTION IN A REFERENCE POPULATION, HAS BEEN CONFIRMED THE DECISION THRESHOLD FOR MA DIAGNOSIS. Performed By: #### B KYLEE, HSTROPN #### [facility] [address] [place] [phone] [address] Deborah Mohan XR CHEST 1 Von [...] KANDY BARRY Date: 2021-11-29 19:20 Normal [facility] XR LSPINE W_OBLS AND FLEX_EX Ton 11-12-2021 [...] RAUDEL ESTRADA Date: 2021-11-12 07:56 Normal [facility] CALCIUMon 11-11-2021 Calcium [Mass/Vol] 9.0 mg/dL Normal 8.5-10.1 [facility] Comment on above: Performed By: #### A NARF #### [facility] [address] [place] [address] Dr. Deborah Mohan CREATININEon 11-11-2021 Creatinine [Mass/Vol] 1.47 mg/dL Critically high 0.55-1.02 [facility] [place] Comment on above: Performed By: #### A NARF #### [facility] [address] [place] [address] [address] Deborah Mohan EGFR-AF SWAZI 43 mL/min/1.73m2 Critically low >=60 [facility] Comment on above: Performed By: #### A NARF #### [facility] [address] [place] [address] Dr. Deborah Mohan EGFR-NON AF SWAZI 35 mL/min/1.73m2 Critically low >=60 [facility] [place] Comment on above: Performed By: #### A NARF #### [facility] [address] [place] [address] Dr. Deborah Mohan Encounters Encounter Date Encounter Type Care Provider Facility Start: 03-20-2024 ambulatory Anderson PULLIAM Facility :[facility] Start: 02-10-2024 ambulatory Anderson VILLANUEVAEsperanza Facility:[facility] Start: 11-28-2023 End: 11-28-2023 ambulatory [facility] Start: 10-18-2023 End: 10-18-2023 ambulatory [facility] Start: 08-01-2023 End: 08-02-2023 ambulatory Gabriella Woodruff MD Facility:[facility] Start: 10-05-2022 End: 10-06-2022 ambulatory MARGUERITE WILDESHMIPATHY [...] Start: 05-08-2022 End: 05-08-2022 ambulatory Clarita Leigh Facility:[facility] Start: 05-08-2022 End: 05-08-2022 ambulatory DERRICK BOAT RUNNER-C Clarita Leigh Work Phone: [facility] Work Phone: Start: 05-08-2022 End: 05-08-2022 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 procedure DERRICK BOAT [employer]NER-C Clarita Leigh Work Phone: [facility] Start: 04-08-2022 [...] 04-01-2018 Emergency department patient visit BRANDON RUSSELL [facility] Start: 12-11-2017 End: 12-11-2017 Emergency department patient visit ROBERT HURLEY Facility:[facility] Procedures Date Procedure Procedure Detail Performing Clinician Start: 05-08-2022 Plain X-ray of left wrist DERRICK BOAT RUNNER-C Clarita Leigh Work Phone: Start: 05-08-2022 X-ray of left ankle DERRICK BOAT RUNNER -C Clarita Leigh Work Phone: Start: 04-01-2018 IP CONSULT TO ORAL SURGERY BRANDON RUSSELL Payers Date Payer Category Payer Unknown 2022 Medicare [id number] 2022 Self-pay 1959 Unknown [id number] 1953 Unknown [id number] 2.16.84 0.1.539346.3.579.2.593 1953 Unknown [id number] 2.16.84 0.1.698019.3.579.2.593 1953 Unknown [id number] 2.16.84 0.1.125479.3.579.2.593 1953 Unknown [id number] 2.16.84 0.1.574059.3.579.2.593 1953 Unknown [id number] 2.16.84 0.1.022403.3.579.2.593 1953 Unknown [id number] 2.16.84 0.1.388936.3.579.2.593 1953 Unknown [id number] 2.16.84 0.1.650227.3.579.2.593 1953 Unknown [id number] 2.16.84 0.1.517193.3.579.2.593 1953 Unknown [id number] 2.16.84 0.1.523578.3.579.2.593 1953 Unknown [id number] 2.16.84 0.1.995870.3.579.2.593 1953 Unknown [id number] 2.16.84 0.1.342508.3.579.2.593 1953 Unknown [id number] 2.16.84 0.1.540919.3.579.2.593 1953 Unknown [id number] 2.16.84 0.1.562852.3.579.2.593 1953 Unknown [id number] 2.16.84 0.1.689739.3.579.2.593 1953 Unknown [id number] 2.16.84 0.1.721061.3.579.2.593 1953 Unknown [id number] 2.16.84 0.1.705265.3.579.2.593 1953 Unknown [id number] 2.16.84 0.1.065108.3.579.2.593 1953 Unknown [id number] 2.16.84 0.1.104480.3.579.2.593 1953 Unknown [id number] 2.16.84 0.1.900578.3.579.2.593 1953 Unknown [id number] 2.16.84 0.1.307881.3.579.2.593 1953 Unknown [id number] 2.16.84 0.1.252999.3.579.2.593 1953 Unknown [id number] 2.16.84 0.1.939808.3.579.2.593 1953 Unknown [id number] 2.16. 840.1.039156.3.579.2.196 1953 Unknown [id number] 2.16.8 40.1.373051.3.579.2.727 Medicare [id number] Unknown [facility] [id number] Unknown [employer]/BS [id number] Unknown [id number] 2.16.8 40.1.718897.3.579.2.531 Social History Date Type Detail Facility [facility] Work Phone: Start: 1955 Sex Assigned At Female F [facility] Clinical Notes 11-05-2021 to 11-28-2023 Note Date & Type Note Facility 11-28-2023 Note [facility] Cardiology Clinic Note Chief Complaint: Patient [...] mouth in the morning., Disp: , Rfl: brrmqcxzyh-fxjhnqovwvsme-elbi 50-325-40 mg tablet, Take 1 tablet by [...] sinus rhythm Echocar (more content not included)... [facility] 10-18-2023 Note [facility] Cardiology Clinic Note Chief Complaint: New patient here to establish care. Ref from Dr. Townsend for abnormal EKG. She also wore 7 day Holter monitor, and says she did not work while wearing this. She works at [employer] and says it's very fast paced. States she drinks a 5 [employer] shot almost every day. She was admitted to [facility] for migraine recently and was found to have abnormal EKG. Recently has noticed a twinge of chest pain. C/o DAI, palpitations, and lightheadedness. HPI: Mary Vick is a 68 y.o. female With a history of hypertension and hypothyroidism who presents due to an abnormal Holter monitor She was admitted to the [facility] for migraine; a monitor revealed both SVT [...] Plan: Routine labs (more content not included)... [facility] 07-08-2022 Note CONSULTATION PROCEDURE DATE: 07/08/2022 HISTORY [...] in the clinic in three months. [facility] 06-24-2022 Note CONSULTATION CONSULTATION DATE: 06/24/2022 HISTORY [...] at a time, as she works at [employer]. Current medications include Percocet 5/325 daily, diclofenac [...] pending approval for her knee injections. [facility] 04-08-2022 Note CONSULTATION CONSULTATION DATE: 04/08/2022 HISTORY [...] three months' time unless otherwise indicated. [facility] 03-09-2022 Note CONSULTATION CONSULTATION DATE: 03/09/2022 CHIEF [...] to proceed. CC: Natividad Silva CNP [facility] 01-28-2022 Note CONSULTATION CONSULTATION DATE: 01/30/2022 HISTORY [...] and re-evaluation of her bursa injection. [facility] 01-28-2022 Note CONSULTATION PROCEDURE DATE: 01/30/2022 PREOPERATIVE [...] be followed up in the clinic. [facility] 11-12-2021 Note PROCEDURE: XR HIPS B IL [...] by: RAUDEL ESTRADA Date: 2021-11-12 07:50 [facility] 11-05-2021 Note CONSULTATION PROCEDURE DATE:11/05/2021 PREOPERATIVE DIAGNOSIS: [...] will be followed up in the office. [facility] Signed and Approved by: JOEL RAMON . 11/18/2021 16:24:00 [facility] 11-05-2021 Note CONSULTATION CONSULTATION DATE: 11/05/2021 HISTORY [...] time, was working half a day at [employer] and since then has increased to full [...] in three months' time unless otherwise indicated. [facility] Signed and Approved by: JOEL RAMON . 11/18/2021 16:24:00 [facility] Evaluation note No assessment information availa [facility] Work Phone: Summary Purpose Family [...] section and content) DATE CREATED AUTHOR 12/21/2017 [facility] DATE CREATED AUTHOR AUTHOR'S ORGANIZ ATION 05/01/2018 [facility] DATE CREATED AUTHOR AUTHOR'S ORGANIZ ATION 05/17/2022 [facility] DATE CREATED AUTHOR AUTHOR'S ORGANIZ ATION 10/06/2022 [facility] DATE CREATED AUTHOR AUTHOR'S ORGANIZ ATION 08/03/2023 [facility] DATE CREATED AUTHOR AUTHOR'S ORGANIZ ATION 11/28/2023 [facility] DATE CREATED AUTHOR AUTHOR'S ORGANIZ ATION 02/14/2024 [facility] Care Teams (unrecognized sec tion [...] THE PRIMARY CLINICAL RECORDS. [facility] [employer] provides no warranty or guarantee of the accuracy or completeness of information in this document.
[2024-02-21 08:45] VITALS: PULSE 70; TEMP 36.2
[2024-02-21 09:42] VITALS: BP 131/59; PULSE 50; O2SAT 96
[2024-02-21 09:45] VITALS: BP 123/59; PULSE 52; O2SAT 93
[2024-02-21] MEDS: BUPIVACAINE HCL 0.25% PF 25 MG/10 ML VIAL 8 ML INJ (09:49)
[2024-02-21] MEDS: IOHEXOL 240 MG/ML - 10 ML VIAL 24 MG INJ (09:49)
[2024-02-21] MEDS: LIDOCAINE HCL 2% PF 100 MG/5 ML VIAL 2 ML INJ (09:50)
[2024-02-21] MEDS: METHYLPREDNISOLONE ACETATE 40 MG/ML VIAL 80 MG INJ (09:50)
--- NOTE | 2024-02-21 10:07 | W.PM.PROCNOT ---
Date of procedure: 02/21/24 Pre-op diagnosis: Bilateral knee pain Post-op diagnosis: same as pre-op Procedure: Procedure: Bilateral knee joint injection Immediate complications none. Anesthesia: 2% lidocaine plain for skin wheal. After informed consent was obtained, patient brought to the OR placed in the supine position. Skin overlying the area was prepped and draped using betadine. 25-gauge 1/2 inch needle was used for skin wheal over the medial aspect of the right knee joint identified under fluoroscopy. Omnipaque dye was used to confirm needle tip placement within the knee joint space 0.5 mL use of the injection. Subsequently Depomedrol 40mg and Marcaine 0.25% 4ml was injected into the space. No indication of intravascular or intraneuronal needle tip placement or injection was noted post procedure. The needle was removed, patient transferred to Recovery room in stable condition to discharged home after meeting criteria. Anesthesia: Local Surgeon: Varun Vicente Condition: stable
== END 2024-02-21 09:51 | disposition home or self-care (01) ==
LOC: SURGOUT 08:25
PROVIDERS: PCP Nurse Practitioner Family; Visit Provider Anesthesiology Pain Medicine
DX: M25.561 Pain in right knee (principal); M25.562 Pain in left knee; Z12.31 Encounter for screening mammogram for malignant neoplasm of breast; Z80.3 Family history of malignant neoplasm of breast; Z80.8 Family history of malignant neoplasm of other organs or systems; Z80.1 Family history of malignant neoplasm of trachea, bronchus and lung
CPT/HCPCS: 20610; 77002; 77063; 77067; J0665; J1010; Q9966

== ENCOUNTER 2024-02-21 14:57 | Outpatient (OUT) | payer MEDICARE, SELFPAY ==
--- OUTSIDE RECORDS SUMMARY | 2024-02-21 15:05 | XMS_ITS | CCD ---
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 nitrogen/Creatinine [Mass ratio] 23.1 mg/mg Normal [facility] Comment on above: Performed By: #### H STROPN, CMP ####[facility] [address] [place], [place] [address]Dr. Deborah Mohan TROPONIN, HIGH SENSITIVITYon 04-07-2022 HSTROP 5.9 pg/mL Normal 4.0-51.3 [facility] Comment on above: Result Comment: CUT- OFF POINTS HAVE BEEN ESTABLISHED BASED ON THE FOURTH UNIVERSAL DEFINITIONS OF MYOCARDIAL INFARCTION. THE UPPER REFERENCE LIMIT (URL) OF TROPONIN, DEFINED THE 99TH PERCENTILE OF cTnI DISTRIBUTION IN A REFERENCE POPULATION, HAS BEEN CONFIRMED THE DECISION THRESHOLD FOR CT DIAGNOSIS. Performed By: #### H STROPN, CMP ####[facility] [address] [place] [address]Dr. Deborah Mohan XR CHEST 1 Von 04-07-2022 [...] by: ANDERSON ALMANZAR Date: 2022-04-07 03:11 Normal [facility] HEMOGLOBINon 03-12-2022 Hemoglobin (Bld) [Mass/Vol] 9.2 g/dL Critically low 12.0-16.0 [facility] Comment on above: Performed By: #### A NARF #### [facility] [address] [place] [address] [address] Deborah Mohan ANTI NEUTROPHIL CYTOPLASMIC AB (ANCA) PRon 03-09-2022 Anti-MPO Antibodies <0.2 Normal 0.0-0.9 [facility] Comment on above: Result Comment: Perf ormed at: BN Performed By: #### B HORTICULTURE/FLORICULTURE TEACHER, HSTROPN, CMP #### [facility] [address] [place] [address] [address] Deborah Mohan Anti-PR3 Antibodies <0.2 Normal 0.0-0.9 [facility] Comment on above: Result Comment: Perf ormed at: BN Performed By: #### B HORTICULTURE/FLORICULTURE TEACHER, HSTROPN, CMP #### [facility] [address] [place] [address] Dr. Deborah Mohan Atypical pANCA 1:160 Critically high Neg:<1:20 [facility] Comment on above: Result Comment: The atypical pANCA pattern has been observed in a significant percentage of patients with ulcerative colitis, primary sclerosing cholangitis and autoimmune hepatitis. Performed at: CB Performed By: #### B HORTICULTURE/FLORICULTURE TEACHER, HSTROPN, CMP #### [facility] [address] [place] [address] [address] Deborah Mohan Cytoplasmic (C-ANCA) <1:20 Normal Neg:<1:20 [facility] Comment on above: Result Comment: Perf ormed at: CB Performed By: #### B HORTICULTURE/FLORICULTURE TEACHER, HSTROPN, CMP #### [facility] [address] [place] [address] [address] Deborah Mohan Perinuclear (P-ANCA) <1:20 Normal Neg:<1:20 [facility] Comment on above: Result Comment: The presence of positive fluorescence exhibiting P-ANCA or C-ANCA patterns alone is not specific for the diagnosis of Marlin's Granulomatosis (WG) or microscopic polyangiitis. Decisions about treatment should not be based solely on ANCA IFA results. The International ANCA Group Consensus recommends follow up testing of positive sera with both MD-3 and MPO-ANCA enzyme immunoassays. As many as 5% serum samples are positive only by EIA. Ref. AM J Clin Pathol 1999;111:507-513. Performed at: CB Performed By: #### B HORTICULTURE/FLORICULTURE TEACHER, HSTROPN, CMP #### [facility] [address] [place] [address] Dr. Deborah Mohan ANTISCLERODERMA ABon 022 Antiscleroderma-70 Antibodies <0.2 Normal 0.0-0.9 [facility] Comment on above: Performed By: #### A NARF #### [facility] [address] [place] [address] CHEST WO CONon [...] incidental findings, as described above. Normal [facility] CYCLIC CITRULLINATED PEPTIDE AB (CCP)on 03-09-2022 CCP Antibodies IgG/IgA 6 units Normal 0-19 [facility] Comment on above: Result Comment: Nega tive <20 Weak positive 20 - 39 Moderate positive 40 - 59 Strong positive >59 Performed By: #### B HORTICULTURE/FLORICULTURE TEACHER, HSTROPN, CMP #### [facility] [address] [place] [address] [address] Deborah Mohan IGG SUBCLASSES (1-4) AND TOT Kade 03-09-2022 IgG, Subclass 1 448 mg/dL Normal 248-[address] [facility] Comment on above: Performed By: #### B HORTICULTURE/FLORICULTURE TEACHER, HSTROPN, CMP #### [facility] [address] [place] [address] [address] Deborah Mohan IgG, Subclass 2 253 mg/dL Normal 130-[address] [facility] Comment on above: Performed By: #### B HORTICULTURE/FLORICULTURE TEACHER, HSTROPN, CMP #### [facility] [address] [place] [address] [address] Deborah Mohan IgG, Subclass 3 95 mg/dL Normal 15-102 [facility] Comment on above: Performed By: #### B HORTICULTURE/FLORICULTURE TEACHER, HSTROPN, CMP #### [facility] [address] [place] [id number] [address] Deborah Mohan IgG, Subclass 4 10 mg/dL Normal 2-96 [facility] Comment on above: Performed By: #### B HORTICULTURE/FLORICULTURE TEACHER, HSTROPN, CMP #### [facility] [address] [place] [id number] [address] Deborah Mohan Immunoglobulin G, Qn, Serum 658 mg/dL Normal 586-1602 [facility] Comment on above: Performed By: #### B HORTICULTURE/FLORICULTURE TEACHER, HSTROPN, CMP #### [facility] [address] [place] [id number] [address] Deborah Mohan IMMUNOGLOBULIN E, TOTALon Immunoglobulin E, Total 5 IU/mL Critically low 6-495 [facility] Comment on above: Performed By: #### I GETOT ####[facility] [address] [place] [id number] Mohan MICHELL EIA W/REFLEX 5 BIOMARKER Son 03-08-2022 MICHELL Direct Negative Normal Negative [facility] Comment on above: Performed By: #### A NARF #### [facility] [address] [place] [address] [address] Deborah Mohan ANGIOTENSION-CONVERTING ENZY ME (FRANCESCO)on 03-08-2022 FRANCESCO 32 U/L Normal 14-82 [facility] Comment on above: Performed By: #### A NGIOC ####[facility] [address] [place] [address]DrAnkur Mohan ANTIGLOMERULAR BASEMENT MEMB ROMMEL ABSon 03-08-2022 Anti-GBM Antibodies <0.2 Normal 0.0-0.9 [facility] Comment on above: Performed By: #### A GBM #### [facility] [address] [place] [address] [address] Deborah Mohan IMMUNOGLOBULIN IGA QUANTITIA VEon 03-06-2022 Immunoglobulin A, Qn, Serum 229 mg/dL Normal 87-352 [facility] Comment on above: Performed By: #### A NARF #### [facility] [address] [place] [address] [address] Deborah Mohan IMMUNOGLOBULIN IGM QUANTITAT IVEon 03-06-2022 Immunoglobulin M, Qn, Serum 83 mg/dL Normal 26-217 [facility] Comment on above: Performed By: #### B HORTICULTURE/FLORICULTURE TEACHER, HSTROPN, CMP #### [facility] [address] [place] [address] [address] Deborah Mohan RHEUMATOID FACTORon 03-06-20 22 RA Latex Turbid. 10.9 IU/mL Normal <14.0 [facility] Comment on above: Performed By: #### R F ####[facility] [address] [place] [address]Dr. Deborah Mohan CREATININEon 03-05-2022 Creatinine [Mass/Vol] 1.38 mg/dL Critically high 0.55-1.02 [facility] Comment on above: Performed By: #### C MELVINA ####[facility] [address] [place] [address]Dr. Deborah Mohan EGFR-AF KUWAITI 46 mL/min/1.73m2 Critically low >=60 [facility] Comment on above: Performed By: #### C MELVINA ####[facility] [address] [place], [place] [address]Ct. Deborah Marques EGFR-NON AF KUWAITI 38 mL/min/1.73m2 Critically low >=60 [facility] Comment on above: Performed By: #### C MELVINA ####[facility] [address] [place], [place] [address]Am. Deborah Mohan [facility] SED RATE 92 mm/hr Critically high <=[address] [facility] Comment on above: Performed By: #### B HORTICULTURE/FLORICULTURE TEACHER, HSTROPN, CMP #### [facility] [address] [place], [place] [address] Dr. Deborah Mohan XR DEXA BONE DENSITYon [...] by: ROBERT CONDON Date: 2022-03-05 16:56 Normal [facility] XR CHEST 1 Von 03-01-2022 XR CHEST [...] by: ROBERT NOVAK Date: 2022-02-28 22:27 Normal [facility] XR KNEE LUANA 4V or >on 2021 [...] RAUDEL ESTRADA Date: 2022-01-29 11:09 Normal [facility] CBC AUTO DIFFon 11-29-2021 BASO # 0.1 103/ul Normal 0.0-0.1 [facility] Comment on above: Performed By: #### C BC ####[facility] [address] [place] [address]Dr. Deborah Mohan Basophils/100 WBC (Bld) 0.8 % Normal 0.2-2.0 [facility] Comment on above: Performed By: #### C BC ####[facility] [address] [place], [place] [address]Dr. Ann-Mariemich Mohan EO # 0.3 103/ul Normal 0.0-0.7 [facility] Comment on above: Performed By: #### C BC ####[facility] [address] [place] [address]Dr. Deborah Mohan Eosinophils/100 WBC (Bld) 2.2 % Normal 0.9-7.0 [facility] Comment on above: Performed By: #### C BC ####[facility] [address] [place] [address]Dr. Ann-Mariemich Mohan Erythrocyte distribution width (RBC) [Ratio] 21.2 % Critically high 11.0-15.0 [facility] Comment on above: Performed By: #### C BC ####[facility] [address] [place], [place] [address]Dr. Deborah Mohan Hematocrit (Bld) [Volume fraction] 33.2 % Critically low 36.0-48.0 [facility] Comment on above: Performed By: #### C BC ####[facility] [address] [place] [address]Dr. Deborah Mohan Hemoglobin (Bld) [Mass/Vol] 10.3 g/dL Critically low 12.0-16.0 [facility] Comment on above: Performed By: #### C BC ####[facility] [address] [place] [address]Dr. Deborah Marques IG # 0.11 10e3/ul Critically high 0.00-0.03 [facility] Comment on above: Performed By: #### C BC ####[facility] [address] [place] [address]Dr. Ann-Mariemich Mohan IG % 0.9 % Critically high 0.0-0.5 [facility] Comment on above: Performed By: #### C BC ####[facility] [address] [place] [address]Dr. Ann-Mariemich Mohan LYMPH # 2.2 103/ul Normal 1.2-3.8 [facility] Comment on above: Performed By: #### C BC ####[facility] [address] [place] [address]DrAnkur Deborah Marques Lymphocytes/100 WBC (Bld) 18.5 % Critically low 20.5-60.0 [facility] Comment on above: Performed By: #### C BC ####[facility] [address] [place] [address]DrAnkur Ann-Mariemich Mohan MANUAL DIFF REQ NO Normal [facility] Comment on above: Performed By: #### C BC ####[facility] [address] [place] [address]DrAnkur Deborah Marques MCH (RBC) [Entitic mass] 26.3 pg Critically low 26.7-34.0 [facility] Comment on above: Performed By: #### C BC ####[facility] [address] [place] [address]Dr. Deborah Mohan MCHC (RBC) [Mass/Vol] 31.0 g/dL Normal 29.9-35.2 [facility] Comment on above: Performed By: #### C BC ####[facility] [address] [place] [phone]. Deborah Mohan MCV (RBC) [Entitic vol] 84.9 fL Normal 81.0-99.0 [facility] Comment on above: Performed By: #### C BC ####[facility] [address] [place] [phone]. Deborah Marques MONO # 0.6 103/ul Normal 0.3-0.8 [facility] Comment on above: Performed By: #### C BC ####[facility] [address] [place] [address]Dr. Ann-Mariemich Mohan Monocytes/100 WBC (Bld) 5.3 % Normal 1.7-12.0 [facility] Comment on above: Performed By: #### C BC ####[facility] [address] [place] [address]Dr. Deborah Marques NEUT # 8.4 103/ul Critically high 1.4-6.5 [facility] Comment on above: Performed By: #### C BC ####[facility] [address] [place] [phone]. Deborah Marques Neutrophils/100 WBC (Bld) 72.3 % Normal 43.0-75.0 [facility] Comment on above: Performed By: #### C BC ####[facility] [address] [place] [address]Dr. Deborah Marques Platelet mean volume (Bld) [Entitic vol] 10.1 fL Normal 9.5-13.5 [facility] Comment on above: Performed By: #### C BC ####[facility] [address] [place] [id number]. Deborah Marques PLT 351 103/ul Normal 150-450 [facility] Comment on above: Performed By: #### C BC ####[facility] [address] [place], [place] [address]Oe. Deborah Mohan RBC 3.91 106/ul Critically low 4.20-5.40 [facility] Comment on above: Performed By: #### C BC ####[facility] [address] [place], [place] [address]XyAnkur Mohan WBC 11.6 103/ul Critically high 4.0-11.0 [facility] Comment on above: Performed By: #### C BC ####[facility] [address] [place], [place] [address]Gw. Deborah Mohan CTA CHEST WO W CONon [...] 2. Bilateral peripheral fibrosis and/or scarring with eihj-ze-aegrfyjd groundglass densities. The groundglass densities are slightly decreased compared to the prior scan. 3. Old calcified granulomas in the chest and abdomen. 4. Large hiatal hernia. 5. Moderate diffuse osteopenia. Electronically authenticated by: BERNARDO DENNY Date: 2021-11-29 20:31 Normal [facility] D-DIMERon 11-29-2021 D-DIMER 1.14 mg/L FEU Critically high <=0.59 [facility] Comment on above: Performed By: #### A NARF #### [facility] [address] [place] [address] Dr. Deborah Mohan D-DIMER COMMENTS SEE BELOW Normal [facility] Comment on above: Result Comment: [...] hospitalization. Performed By: #### A NARF #### [facility] [address] [place] [address] Dr. Deborah Mohan PROF CHEM 8 (BAS METB)on Anion gap [Moles/Vol] 11.7 mmol/L Normal [facility] Comment on above: Performed By: #### B MP, HSTROPN #### [facility] [address] [place] [address] [address] Deborah Mohan Calcium [Mass/Vol] 8.7 mg/dL Normal 8.5-10.1 [facility] Comment on above: Performed By: #### B MP, HSTROPN #### [facility] [address] [place] [address] [address] Deborah Mohan Chloride [Moles/Vol] 107 mmol/L Normal 98-107 [facility] Comment on above: Performed By: #### B KYLEE, HSTROPN #### [facility] [address] [place] [address] [address] Deborah Mohan CO2 [Moles/Vol] 25.3 mmol/L Normal 21.0-32.0 [facility] Comment on above: Performed By: #### B MP, HSTROPN #### [facility] [address] [place] [address] [address] Deborah Mohan Creatinine [Mass/Vol] 0.98 mg/dL Normal 0.55-1.02 [facility] Comment on above: Performed By: #### B KYLEE, HSTROPN #### [facility] [address] [place] [address] Dr. Deborah Mohan EGFR-AF KUWAITI >60 Normal >=60 [facility] Comment on above: Performed By: #### B KYLEE, HSTROPN #### [facility] [address] [place] [address] Dr. Deborah Mohan EGFR-NON AF KUWAITI 56 mL/min/1.73m2 Critically low >=60 [facility] Comment on above: Performed By: #### B KYLEE, HSTROPN #### [facility] [address] [place] [address] Dr. Deborah Mohan Glucose [Mass/Vol] 105 mg/dL Normal 74-106 [facility] Comment on above: Performed By: #### B KYLEE, HSTROPN #### [facility] [address] [place] [address] Dr. Deborah Mohan Potassium [Moles/Vol] 4.0 mmol/L Normal 3.5-5.1 [facility] Comment on above: Performed By: #### B MP, HSTROPN #### [facility] [address] [place] [address] Dr. Deborah Mohan Sodium [Moles/Vol] 140 mmol/L Normal 136-145 [facility] Comment on above: Performed By: #### B KYLEE, HSTROPN #### [facility] [address] [place] [address] Dr. Deborah Mohan Urea nitrogen [Mass/Vol] 21.0 mg/dL Critically high 7.0-18.0 [facility] Comment on above: Performed By: #### B KYLEE HSTROPN #### [facility] [address] [place], [place] [address] Dr. Deborah Mohan Urea nitrogen/Creatinine [Mass ratio] 21.4 mg/mg Normal [facility] Comment on above: Performed By: #### B KYLEE, HSTROPN #### [facility] [address] [place] [id number] Deborah Mohan TROPONIN, HIGH SENSITIVITYon 11-29-2021 HSTROP 4.5 pg/mL Normal 4.0-51.3 [facility] Comment on above: Result Comment: CUT- OFF POINTS HAVE BEEN ESTABLISHED BASED ON THE FOURTH UNIVERSAL DEFINITIONS OF MYOCARDIAL INFARCTION. THE UPPER REFERENCE LIMIT (URL) OF TROPONIN, DEFINED THE 99TH PERCENTILE OF cTnI DISTRIBUTION IN A REFERENCE POPULATION, HAS BEEN CONFIRMED THE DECISION THRESHOLD FOR CT DIAGNOSIS. Performed By: #### H STROPN ####[facility] [address] [place], [place] [address]JpDr. Deborah Mohan HSTROP 6.0 pg/mL Normal 4.0-51.3 [facility] Comment on above: Result Comment: CUT- OFF POINTS HAVE BEEN ESTABLISHED BASED ON THE FOURTH UNIVERSAL DEFINITIONS OF MYOCARDIAL INFARCTION. THE UPPER REFERENCE LIMIT (URL) OF TROPONIN, DEFINED THE 99TH PERCENTILE OF cTnI DISTRIBUTION IN A REFERENCE POPULATION, HAS BEEN CONFIRMED THE DECISION THRESHOLD FOR CT DIAGNOSIS. Performed By: #### B KYLEE, HSTROPN #### [facility] [address] [place] [id number] Deborah Mohan XR CHEST 1 Von [...] KANDY BARRY Date: 2021-11-29 19:20 Normal [facility] XR LSPINE W_OBLS AND FLEX_EX [...] RAUDEL ESTRADA Date: 2021-11-12 07:56 Normal [facility] CALCIUMon 11-11-2021 Calcium [Mass/Vol] 9.0 mg/dL Normal 8.5-10.1 [facility] Comment on above: Performed By: #### A NARF #### [facility] [address] [place] [address] Dr. Deborah Mohan CREATININEon 11-11-2021 Creatinine [Mass/Vol] 1.47 mg/dL Critically high 0.55-1.02 [facility] Comment on above: Performed By: #### A NARF #### [facility] [address] [address] [address] Deborah Mohan EGFR-AF [place] 43 mL/min/1.73m2 Critically low >=60 [facility] Comment on above: Performed By: #### A NARF #### [facility] [address] [place] [address] Dr. Deborah Mohan EGFR-NON AF [place] 35 mL/min/1.73m2 Critically low >=60 [facility] Comment on above: Performed By: #### A NARF #### [facility] [address] [place] [address] Dr. Deborah Mohan Encounters Encounter Date Encounter Type Care Provider Facility Start: 03-20-2024 ambulatory Anderson PULLIAM Facility :[facility] Start: 02-10-2024 ambulatory Anderson VILLANUEAVEsperanza Facility:[facility] Start: 11-28-2023 End: 11-28-2023 ambulatory [facility] Start: 10-18-2023 End: 10-18-2023 ambulatory [facility] Start: 08-01-2023 End: 08-02-2023 ambulatory Gabriella Woodruff MD Facility:[facility] Start: 10-05-2022 End: 10-06-2022 ambulatory MARGUERITE WILDESHMIPATHY [...] Start: 05-08-2022 End: 05-08-2022 ambulatory Clarita Leigh Facility:[facility] Start: 05-08-2022 End: 05-08-2022 ambulatory [employer] Clarita Leigh Work Phone: [facility] Work Phone: Start: 05-08-2022 End: 05-08-2022 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 procedure [employer] Clarita Leigh Work Phone: [facility] Start: 04-08-2022 [...] 04-01-2018 Emergency department patient visit BRANDON RUSSELL [facility] Start: 12-11-2017 End: 12-11-2017 Emergency department patient visit ROBERT HURLEY Facility:[facility] Procedures Date Procedure Procedure Detail Performing Clinician Start: 05-08-2022 Plain X-ray of left wrist [employer] Clarita Leigh Work Phone: Start: 05-08-2022 X-ray of left ankle [employer] Clarita Leigh Work Phone: Start: 04-01-2018 IP CONSULT TO ORAL SURGERY BRANDON RUSSELL Payers Date Payer Category Payer Unknown 2022 Medicare [id number] 2022 Self-pay 1959 Unknown [id number] 1955 Unknown [id number] 2.16.84 0.1.682626.3.579.2.593 1953 Unknown [id number] 2.16.84 0.1.491821.3.579.2.593 1953 Unknown [id number] 2.16.84 0.1.175774.3.579.2.593 1953 Unknown [id number] 2.16.84 0.1.304578.3.579.2.593 1953 Unknown [id number] 2.16.84 0.1.799400.3.579.2.593 1953 Unknown [id number] 2.16.84 0.1.975022.3.579.2.593 1953 Unknown [id number] 2.16.84 0.1.313176.3.579.2.593 1953 Unknown [id number] 2.16.84 0.1.758192.3.579.2.593 1953 Unknown [id number] 2.16.84 0.1.559714.3.579.2.593 1953 Unknown [id number] 2.16.84 0.1.076860.3.579.2.593 1953 Unknown [id number] 2.16.84 0.1.223914.3.579.2.593 1953 Unknown [id number] 2.16.84 0.1.877417.3.579.2.593 1953 Unknown [id number] 2.16.84 0.1.914639.3.579.2.593 1953 Unknown [id number] 2.16.84 0.1.016319.3.579.2.593 1953 Unknown [id number] 2.16.84 0.1.932556.3.579.2.593 1953 Unknown [id number] 2.16.84 0.1.520450.3.579.2.593 1953 Unknown [id number] 2.16.84 0.1.163243.3.579.2.593 1953 Unknown [id number] 2.16.84 0.1.255837.3.579.2.593 1953 Unknown [id number] 2.16.84 0.1.074130.3.579.2.593 1953 Unknown [id number] 2.16.84 0.1.545221.3.579.2.593 1953 Unknown [id number] 2.16.84 0.1.966367.3.579.2.593 1953 Unknown [id number] 2.16.84 0.1.853351.3.579.2.593 1953 Unknown [id number] 2.16. 840.1.252757.3.579.2.196 1955 Unknown [id number] 2.16.8 40.1.011551.3.579.2.727 Medicare [id number] Unknown [facility] [id number] Unknown [employer] [id number] Unknown [id number] 2.16.8 40.1.083829.3.579.2.531 Social History Date Type Detail Facility [facility] if ever [facility] Work Phone: Start: 1955 Sex Assigned At Female F [facility] Clinical Notes 11-05-2021 to 11-28-2023 Note Date & Type Note Facility 11-28-2023 Note [facility] Cardiology Clinic Note Chief Complaint: Patient [...] mouth in the morning., Disp: , Rfl: rxvvysmiqf-djdcqodmtqhml-zhwn 50-325-40 mg tablet, Take 1 tablet by [...] sinus rhythm Echocar (more content not included)... [facility] 10-18-2023 Note [facility] Cardiology Clinic Note Chief Complaint: New patient here to establish care. Ref from Dr. Townsend for abnormal EKG. She also wore 7 day Holter monitor, and says she did not work while wearing this. She works at [employer] ([employer]ing [employer]) and says it's very fast paced. States she drinks a 5 Hour Energy shot almost every day. She was admitted to [facility] for migraine recently and was found to have abnormal EKG. Recently has noticed a twinge of chest pain. C/o DAI, palpitations, and lightheadedness. HPI: Mary Vick is a 68 y.o. female With a history of hypertension and hypothyroidism who presents due to an abnormal Holter monitor She was admitted to the [facility] for migraine; a monitor revealed [...] Plan: Routine labs (more content not included)... [facility] 07-08-2022 Note CONSULTATION PROCEDURE DATE: 07/08/2022 [...] in the clinic in three months. [facility] 06-24-2022 Note CONSULTATION CONSULTATION DATE: [...] at a time, as she works at [employer] ([employer]). Current medications include Percocet 5/325 daily, diclofenac [...] pending approval for her knee injections. [facility] 04-08-2022 Note CONSULTATION CONSULTATION DATE: [...] three months' time unless otherwise indicated. [facility] 03-09-2022 Note CONSULTATION CONSULTATION DATE: [...] to proceed. CC: Natividad Silva CNP [facility] 01-28-2022 Note CONSULTATION CONSULTATION DATE: [...] and re-evaluation of her bursa injection. [facility] 01-28-2022 Note CONSULTATION PROCEDURE DATE: [...] be followed up in the clinic. [facility] 11-12-2021 Note PROCEDURE: XR HIPS [...] by: RAUDEL ESTRADA Date: 2021-11-12 07:50 [facility] 11-05-2021 Note CONSULTATION PROCEDURE DATE:11/05/2021 [...] will be followed up in the office. [facility] Signed and Approved by: JOEL RAMON . 11/18/2021 16:24:00 [facility] 11-05-2021 Note CONSULTATION CONSULTATION DATE: 11/05/2021 HISTORY [...] time, was working half a day at [employer] ([employer]ing [employer]) and since then has increased to full [...] in three months' time unless otherwise indicated. [facility] Signed and Approved by: JOEL RAMON . 11/18/2021 16:24:00 [facility] Evaluation note No assessment information availa [facility] Work Phone: Summary Purpose Family [...] section and content) DATE CREATED AUTHOR 12/21/2017 [facility] DATE CREATED AUTHOR AUTHOR'S ORGANIZ ATION 05/01/2018 [facility] DATE CREATED AUTHOR AUTHOR'S ORGANIZ ATION 05/17/2022 [facility] DATE CREATED AUTHOR AUTHOR'S ORGANIZ ATION 10/06/2022 [facility] DATE CREATED AUTHOR AUTHOR'S ORGANIZ ATION 08/03/2023 [facility] DATE CREATED AUTHOR AUTHOR'S ORGANIZ ATION 11/28/2023 [facility] DATE CREATED AUTHOR AUTHOR'S ORGANIZ ATION 02/14/2024 Henderson Robinson [facility] Care Teams (unrecognized sec tion and [...] BE BASED ON THE PRIMARY CLINICAL RECORDS. [facility] [employer] provides no warranty or guarantee of the accuracy or completeness of information in this document.
--- NOTE | 2024-02-21 15:45 | MM_ITS ---
Patient Name: MELANIE TOMPKINS MR#: [id number] : 1955 Exam Date: 02/21/2024 Ordering Doctor: DR Travis Townsend . RADIOLOGY REPORT PROCEDURE: MM TOMOSYNTHESIS SCREENING BI COMPARISON: MG MAMM SCREEN LUANA W CAD, 03/04/2020. MG MAMM LUANA SCRN W CAD DIG, 02/12/2013. INDICATIONS: Screening Calculator Name NCI Breast Cancer Risk Assessment Tool 5 Year Breast Cancer Risk 3.50% Lifetime Breast Cancer Risk 10.10% Personal Breast Cancer No Personal Ovarian Cancer No Treatments None Family Cancers Mother with breast cancer at age 47; Mother with lung cancer at age 59; Sister with lung,brain cancer at age 43. LOCATION: [facility] BREAST COMPOSITION: There are scattered areas of fibroglandular density. FINDINGS: DIAGNOSTIC CATEGORY 2--BENIGN FINDING. NO CHANGE FROM COMPARISON. Scattered benign-appearing calcifications are present. Scattered benign-appearing nodules are present. RIGHT BREAST: No significant suspicious finding. LEFT BREAST: No significant suspicious finding. RECOMMENDATIONS: ROUTINE MAMMOGRAM AND CLINICAL EVALUATION IN 12 MONTHS. PLEASE NOTE: A NORMAL MAMMOGRAM DOES NOT EXCLUDE THE POSSIBILITY OF BREAST CANCER. A CLINICALLY SUSPICIOUS PALPABLE LUMP SHOULD BE BIOPSIED. Dictated by: Valdo Bridges MD on 02/22/2024 at 07:57 Approved by: Valdo Bridges MD on 02/22/2024 at 07:58
== END 2024-02-21 14:58 | disposition home or self-care (01) ==
LOC: MAMMO 14:58
PROVIDERS: PCP Nurse Practitioner Family; Visit Provider Family Medicine
DX: Z12.31 Encounter for screening mammogram for malignant neoplasm of breast (principal); Z80.3 Family history of malignant neoplasm of breast; Z80.1 Family history of malignant neoplasm of trachea, bronchus and lung; Z80.8 Family history of malignant neoplasm of other organs or systems
CPT/HCPCS: 77063; 77067

== ENCOUNTER 2024-03-18 16:07 | Emergency (ER) | payer MEDICARE, SELFPAY ==
--- OUTSIDE RECORDS SUMMARY | 2024-03-18 16:13 | XMS_ITS | CCD ---
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 [Mass/Vol] 9.2 g/dL Critically low 12.0-16.0 [facility] Comment on above: Performed By: #### A NARF #### [facility] [address] [address] [address] Deborah Mohan ANTI NEUTROPHIL CYTOPLASMIC AB (ANCA) PRon 03-09-2022 Anti-MPO Antibodies <0.2 Normal 0.0-0.9 [facility] Comment on above: Result Comment: Perf ormed at: BN Performed By: #### B GUEST SERVICES MANAGER, HSTROPN, CMP #### [facility] [address] [address] [address] Deborah Mohan Anti-PR3 Antibodies <0.2 Normal 0.0-0.9 [facility] Comment on above: Result Comment: Perf ormed at: BN Performed By: #### B GUEST SERVICES MANAGER, HSTROPN, CMP #### [facility] [address] [address] [address] Deborah Mohan Atypical pANCA 1:160 Critically high Neg:<1:20 [facility] Comment on above: Result Comment: The atypical pANCA pattern has been observed in a significant percentage of patients with ulcerative colitis, primary sclerosing cholangitis and autoimmune hepatitis. Performed at: CB Performed By: #### B GUEST SERVICES MANAGER, HSTROPN, CMP #### [facility] [address] [address] [address] Deborah Mohan Cytoplasmic (C-ANCA) <1:20 Normal Neg:<1:20 [facility] Comment on above: Result Comment: Perf ormed at: CB Performed By: #### B GUEST SERVICES MANAGER, HSTROPN, CMP #### [facility] [address] [address] [address] Deborah Mohan Perinuclear (P-ANCA) <1:20 Normal Neg:<1:20 [facility] Comment on above: Result Comment: The presence of positive fluorescence exhibiting P-ANCA or C-ANCA patterns alone is not specific for the diagnosis of Marlin's Granulomatosis (WG) or microscopic polyangiitis. Decisions about treatment should not be based solely on ANCA IFA results. The International ANCA [employer] Consensus recommends follow up testing of positive sera with both MI-3 and MPO-ANCA enzyme immunoassays. As many as 5% serum samples are positive only by EIA. Ref. AM J Clin Pathol 1999;111:507-513. Performed at: CB Performed By: #### B GUEST SERVICES MANAGER, HSTROPN, CMP #### [facility] [address] [place] [address] Dr. Deborah Mohan ANTISCLERODERMA ABon 022 Antiscleroderma-70 Antibodies <0.2 Normal 0.0-0.9 [facility] Comment on above: Performed By: #### A NARF #### [facility] [address] [place] [address] CHEST WO CONon [...] incidental findings, as described above. Normal [facility] CYCLIC CITRULLINATED PEPTIDE AB (CCP)on 03-09-2022 CCP Antibodies IgG/IgA 6 units Normal 0-19 [facility] Comment on above: Result Comment: Nega tive <20 Weak positive 20 - 39 Moderate positive 40 - 59 Strong positive >59 Performed By: #### B GUEST SERVICES MANAGER, HSTROPN, CMP #### [facility] [address] [address] [address] Deborah Mohan IGG SUBCLASSES (1-4) AND TOT Kade 03-09-2022 IgG, Subclass 1 448 mg/dL Normal 248-810 [facility] Comment on above: Performed By: #### B GUEST SERVICES MANAGER, HSTROPN, CMP #### [facility] [address] [address] [address] Deborah Mohan IgG, Subclass 2 253 mg/dL Normal 130-555 [facility] Comment on above: Performed By: #### B GUEST SERVICES MANAGER, HSTROPN, CMP #### [facility] [address] [address] [address] Deborah Mohan IgG, Subclass 3 95 mg/dL Normal 15-102 [facility] Comment on above: Performed By: #### B GUEST SERVICES MANAGER, HSTROPN, CMP #### [facility] [address] [address] [address] Deborah Mohan IgG, Subclass 4 10 mg/dL Normal 2-96 [facility] Comment on above: Performed By: #### B GUEST SERVICES MANAGER, HSTROPN, CMP #### [facility] [address] [address] [address] Deborah Mohan Immunoglobulin G, Qn, Serum 658 mg/dL Normal 586-1602 [facility] Comment on above: Performed By: #### B GUEST SERVICES MANAGER, HSTROPN, CMP #### [facility] [address] [address] [address] Deborah Mohan IMMUNOGLOBULIN E, TOTALon Immunoglobulin E, Total 5 IU/mL Critically low 6-495 [facility] Comment on above: Performed By: #### I GETOT ####[facility] [address] [place] [address]DrAnkur Mohan MICHELL EIA W/REFLEX 5 BIOMARKER Son 03-08-2022 MICHELL Direct Negative Normal Negative [facility] Comment on above: Performed By: #### A NARF #### [facility] [address] [address] [address] Deborah Mohan ANGIOTENSION-CONVERTING ENZY ME (FRANCESCO)on 03-08-2022 FRANCESCO 32 U/L Normal 14-82 [facility] Comment on above: Performed By: #### A NGIOC ####[facility] [address] [place] [address]DrAnkur Mohan ANTIGLOMERULAR BASEMENT MEMB ROMMEL ABSon 03-08-2022 Anti-GBM Antibodies <0.2 Normal 0.0-0.9 [facility] Comment on above: Performed By: #### A GBM #### [facility] [address] [place] [address] Dr. Deborah Mohan IMMUNOGLOBULIN IGA QUANTITIA VEon 03-06-2022 Immunoglobulin A, Qn, Serum 229 mg/dL Normal 87-352 [facility] Comment on above: Performed By: #### A NARF #### [facility] [address] [address] [address] Deborah Mohan IMMUNOGLOBULIN IGM QUANTITAT IVEon 03-06-2022 Immunoglobulin M, Qn, Serum 83 mg/dL Normal 26-217 [facility] Comment on above: Performed By: #### B GUEST SERVICES MANAGER, HSTROPN, CMP #### [facility] [address] [address] [address] Deborah Mohan RHEUMATOID FACTORon 03-06-20 RA Latex Turbid. 10.9 IU/mL Normal <14.0 [facility] Comment on above: Performed By: #### R F ####[facility] [address] [place] [address]Dr. Deborah Mohan CREATININEon 03-05-2022 Creatinine [Mass/Vol] 1.38 mg/dL Critically high 0.55-1.02 [facility] Comment on above: Performed By: #### C MELVINA ####[facility] [address] [place], [place] [address]Vn. Deborah Mohan EGFR-AF BURKINAN 46 mL/min/1.73m2 Critically low >=60 [facility] Comment on above: Performed By: #### C MELVINA ####[facility] [address] [place], [place] [address]Rr. Deborah Mohan EGFR-NON AF BURKINAN 38 mL/min/1.73m2 Critically low >=60 [facility] Comment on above: Performed By: #### C MELVINA ####[facility] [address] [place], [place] [address]Af. Deborah Mohan [facility] 92 mm/hr Critically high <=30 [facility] [place] Comment on above: Performed By: #### B GUEST SERVICES MANAGER, HSTROPN, CMP #### [facility] [address] [place], [place] [address] Dr. Deborah Mohan XR DEXA BONE DENSITYon [...] by: ROBERT CONDON Date: 2022-03-05 16:56 Normal [facility] XR CHEST 1 Von 03-01-2022 XR [...] by: ROBERT NOVAK Date: 2022-02-28 22:27 Normal [facility] XR KNEE LUANA 4V or >on [...] RAUDEL ESTRADA Date: 2022-01-29 11:09 Normal [facility] CBC AUTO DIFFon 11-29-2021 BASO # 0.1 103/ul Normal 0.0-0.1 [facility] Comment on above: Performed By: #### C BC ####[facility] [address] [place] [address]Dr. Ann-Mariemihc Mohan Basophils/100 WBC (Bld) 0.8 % Normal 0.2-2.0 [facility] Comment on above: Performed By: #### C BC ####[facility] [address] [place], [place] [address]Dr. Deborah Marques EO # 0.3 103/ul Normal 0.0-0.7 [facility] Comment on above: Performed By: #### C BC ####[facility] [address] [place] [address]Dr. Ann-Mariemich Mohan Eosinophils/100 WBC (Bld) 2.2 % Normal 0.9-7.0 [facility] Comment on above: Performed By: #### C BC ####[facility] [address] [place] [address]Dr. Ann-Mariemich Mohan Erythrocyte distribution width (RBC) [Ratio] 21.2 % Critically high 11.0-15.0 [facility] Comment on above: Performed By: #### C BC ####[facility] [address] [place] [address]Dr. Ann-Mariemich Mohan Hematocrit (Bld) [Volume fraction] 33.2 % Critically low 36.0-48.0 [facility] Comment on above: Performed By: #### C BC ####[facility] [address] [place] [address]Dr. Deborah Mohan Hemoglobin (Bld) [Mass/Vol] 10.3 g/dL Critically low 12.0-16.0 [facility] Comment on above: Performed By: #### C BC ####[facility] [address] [place] [address]Dr. Deborah Mohan IG # 0.11 10e3/ul Critically high 0.00-0.03 [facility] Comment on above: Performed By: #### C BC ####[facility] [address] [place], [place] [address]Dr. Deborah Mohan IG % 0.9 % Critically high 0.0-0.5 [facility] Comment on above: Performed By: #### C BC ####[facility] [address] [place], [place] [address]Dr. Deborah Mohan LYMPH # 2.2 103/ul Normal 1.2-3.8 [facility] Comment on above: Performed By: #### C BC ####[facility] [address] [place], [place] [address]Dr. Deborah Mohan Lymphocytes/100 WBC (Bld) 18.5 % Critically low 20.5-60.0 [facility] Comment on above: Performed By: #### C BC ####[facility] [address] [place] [address]Dr. Deborah Mohan MANUAL DIFF REQ NO Normal [facility] Comment on above: Performed By: #### C BC ####[facility] [address] [place], [place] [address]Dr. Deborah Mohan MCH (RBC) [Entitic mass] 26.3 pg Critically low 26.7-34.0 [facility] Comment on above: Performed By: #### C BC ####[facility] [address] [place] [id number]. Deborah Mohan MCHC (RBC) [Mass/Vol] 31.0 g/dL Normal 29.9-35.2 [facility] Comment on above: Performed By: #### C BC ####[facility] [address] [place] [address]Dr. Deborah Mohan MCV (RBC) [Entitic vol] 84.9 fL Normal 81.0-99.0 [facility] Comment on above: Performed By: #### C BC ####[facility] [address] [place] [address]Dr. Deborah Marques MONO # 0.6 103/ul Normal 0.3-0.8 [facility] Comment on above: Performed By: #### C BC ####[facility] [address] [place] [address]Dr. Deborah Mohan Monocytes/100 WBC (Bld) 5.3 % Normal 1.7-12.0 [facility] Comment on above: Performed By: #### C BC ####[facility] [address] [place] [address]Dr. Deborah Mohan NEUT # 8.4 103/ul Critically high 1.4-6.5 [facility] Comment on above: Performed By: #### C BC ####[facility] [address] [place] [address]Dr. Deborah Mohan Neutrophils/100 WBC (Bld) 72.3 % Normal 43.0-75.0 [facility] Comment on above: Performed By: #### C BC ####[facility] [address] [place] [id number]. Deborah Mohan Platelet mean volume (Bld) [Entitic vol] 10.1 fL Normal 9.5-13.5 [facility] Comment on above: Performed By: #### C BC ####[facility] [address] [place] [id number]. Deborah Mohan PLT 351 103/ul Normal 150-450 [facility] Comment on above: Performed By: #### C BC ####[facility] [address] [place], [place] [address]Ao. Deborah Mohan RBC 3.91 106/ul Critically low 4.20-5.40 [facility] Comment on above: Performed By: #### C BC ####[facility] [address] [place], [place] [address]TaAnkur Mohan WBC 11.6 103/ul Critically high 4.0-11.0 [facility] Comment on above: Performed By: #### C BC ####[facility] [address] [place], [place] [address]Qa. Deborah Mohan CTA CHEST WO W CONon [...] 2. Bilateral peripheral fibrosis and/or scarring with mpav-iv-iiatuojp groundglass densities. The groundglass densities are slightly decreased compared to the prior scan. 3. Old calcified granulomas in the chest and abdomen. 4. Large hiatal hernia. 5. Moderate diffuse osteopenia. Electronically authenticated by: BERNARDO DENNY Date: 2021-11-29 20:31 Normal [facility] D-DIMERon 11-29-2021 D-DIMER 1.14 mg/L FEU Critically high <=0.59 [facility] Comment on above: Performed By: #### A NARF #### [facility] [address] [place] [address] Dr. Deborah Mohan D-DIMER COMMENTS SEE BELOW Normal [facility] Comment on above: Result Comment: [...] hospitalization. Performed By: #### A NARF #### [facility] [address] [address] [address] Deborah Mohan PROF CHEM 8 (BAS METB)on Anion gap [Moles/Vol] 11.7 mmol/L Normal [facility] Comment on above: Performed By: #### B MP, HSTROPN #### [facility] [address] [address] [address] Deborah Mohan Calcium [Mass/Vol] 8.7 mg/dL Normal 8.5-10.1 [facility] Comment on above: Performed By: #### B MP, HSTROPN #### [facility] [address] [place] [address] [address] Deborah Mohan Chloride [Moles/Vol] 107 mmol/L Normal 98-107 [facility] Comment on above: Performed By: #### B KYLEE, HSTROPN #### [facility] [address] [place] [address] [address] Deborah Mohan CO2 [Moles/Vol] 25.3 mmol/L Normal 21.0-32.0 [facility] Comment on above: Performed By: #### B KYLEE, HSTROPN #### [facility] [address] [place] [address] Dr. Deborah Mohan Creatinine [Mass/Vol] 0.98 mg/dL Normal 0.55-1.02 [facility] Comment on above: Performed By: #### B KYLEE, HSTROPN #### [facility] [address] [place] [address] Dr. Deborah Mohan EGFR-AF BURKINAN >60 Normal >=60 [facility] Comment on above: Performed By: #### B KYLEE, HSTROPN #### [facility] [address] [place] [address] Dr. Deborah Mohan EGFR-NON AF BURKINAN 56 mL/min/1.73m2 Critically low >=60 [facility] Comment on above: Performed By: #### B KYLEE, HSTROPN #### [facility] [address] [place] [address] Dr. Deborah Mohan Glucose [Mass/Vol] 105 mg/dL Normal 74-106 [facility] Comment on above: Performed By: #### B KYLEE, HSTROPN #### [facility] [address] [place] [address] Dr. Deborah Mohan Potassium [Moles/Vol] 4.0 mmol/L Normal 3.5-5.1 [facility] Comment on above: Performed By: #### B KYLEE, HSTROPN #### [facility] [address] [place] [address] Dr. Deborah Mohan Sodium [Moles/Vol] 140 mmol/L Normal 136-145 [facility] Comment on above: Performed By: #### B KYLEE, HSTROPN #### [facility] [address] [place], [place] [address] Dr. Deborah Mohan Urea nitrogen [Mass/Vol] 21.0 mg/dL Critically high 7.0-18.0 [facility] Comment on above: Performed By: #### B KYLEE, HSTROPN #### [facility] [address] [place] [address] [address] Deborah Mohan Urea nitrogen/Creatinine [Mass ratio] 21.4 mg/mg Normal [facility] Comment on above: Performed By: #### B KYLEE, HSTROPN #### [facility] [address] [address] [address] Deborah Mohan TROPONIN, HIGH SENSITIVITYon 11-29-2021 HSTROP 4.5 pg/mL Normal 4.0-51.3 [facility] Comment on above: Result Comment: CUT- OFF POINTS HAVE BEEN ESTABLISHED BASED ON THE FOURTH UNIVERSAL DEFINITIONS OF MYOCARDIAL INFARCTION. THE UPPER REFERENCE LIMIT (URL) OF TROPONIN, DEFINED THE 99TH PERCENTILE OF cTnI DISTRIBUTION IN A REFERENCE POPULATION, HAS BEEN CONFIRMED THE DECISION THRESHOLD FOR [place] DIAGNOSIS. Performed By: #### H STROPN ####[facility] [address] [place] [address]Dr. Deborah Mohan HSTROP 6.0 pg/mL Normal 4.0-51.3 [facility] Comment on above: Result Comment: CUT- OFF POINTS HAVE BEEN ESTABLISHED BASED ON THE FOURTH UNIVERSAL DEFINITIONS OF MYOCARDIAL INFARCTION. THE UPPER REFERENCE LIMIT (URL) OF TROPONIN, DEFINED THE 99TH PERCENTILE OF cTnI DISTRIBUTION IN A REFERENCE POPULATION, HAS BEEN CONFIRMED THE DECISION THRESHOLD FOR [place] DIAGNOSIS. Performed By: #### B KYLEE, HSTROPN #### [facility] [address] [address] [address] Deborah Mohan XR CHEST 1 Von [...] KANDY BARRY Date: 2021-11-29 19:20 Normal [facility] XR LSPINE W_OBLS AND FLEX_EX [...] RAUDEL ESTRADA Date: 2021-11-12 07:56 Normal [facility] CALCIUMon 11-11-2021 Calcium [Mass/Vol] 9.0 mg/dL Normal 8.5-10.1 [facility] Comment on above: Performed By: #### A NARF #### [facility] [address] [address] [address] Deborah Mohan CREATININEon 11-11-2021 Creatinine [Mass/Vol] 1.47 mg/dL Critically high 0.55-1.02 [facility] Comment on above: Performed By: #### A NARF #### [facility] [address] [place] [address] [address] Deborah Mohan EGFR-AF BURKINAN 43 mL/min/1.73m2 Critically low >=60 [facility] Comment on above: Performed By: #### A NARF #### [facility] [address] [place] [address] [address] Deborah Mohan EGFR-NON AF BURKINAN 35 mL/min/1.73m2 Critically low >=60 [facility] Comment on above: Performed By: #### A NARF #### [facility] [address] [place] [address] [address] Deborah Mohan Encounters Encounter Date Encounter Type Care Provider Facility Start: 03-20-2024 ambulatory Anderson PULLIAM Facility :[facility] Start: 02-10-2024 ambulatory Anderson PULLIAM Facility:[facility] Start: 11-28-2023 End: 11-28-2023 ambulatory [facility] Start: 10-18-2023 End: 10-18-2023 ambulatory [facility] Start: 08-01-2023 End: 08-02-2023 ambulatory Gabriella Woodruff MD Facility:[facility] Start: 10-05-2022 End: 10-06-2022 ambulatory NARTEN WILDESHMIPATHY . Facility: Start: 09-17-2022 End: 09-17-[address] INGRID ESPINAL Facility:[facility] Start: 08-26-2022 ambulatory NARENDRANATH LAKSHMIPATHY . Facility:[facility] Start: 08-24-2022 End: 08-24-2022 ambulatory NATIVIDAD SILVA Facility:[facility] Start: 07-08-2022 End: 07-09-2022 ambulatory JOEL RAMON . Facility:[facility] Start: 07-06-2022 End: 07-07-2022 ambulatory NATIVIDAD SILVA Facility:[facility] Start: 06-24-2022 End: 06-25-2022 ambulatory JOEL RAMON . Facility: Start: 05-21-2022 ambulatory NATIVIDAD SILVA Facility: [facility] Start: 05-08-2022 End: 05-08-2022 ambulatory Clarita Leigh Facility:[facility] Start: 05-08-2022 End: 05-08-2022 ambulatory RECORD TABULATING CLERK-C Clarita Leigh Work Phone: [facility] Work Phone: Start: 05-08-2022 End: 05-08-2022 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 procedure RECORD TABULATING CLERK-C Clarita Leigh Work Phone: [facility] Start: 04-08-2022 [...] 04-01-2018 Emergency department patient visit BRANDON RUSSELL [facility] Start: 12-11-2017 End: 12-11-2017 Emergency department patient visit ROBERT HURLEY Facility:[facility] Procedures Date Procedure Procedure Detail Performing Clinician Start: 05-08-2022 Plain X-ray of left wrist RECORD TABULATING CLERK-C Clarita Leigh Work Phone: Start: 05-08-2022 X-ray of left ankle RECORD TABULATING CLERK -C Clarita Leigh Work Phone: Start: 04-01-2018 IP CONSULT TO ORAL SURGERY BRANDON RUSSELL Payers Date Payer Category Payer Unknown 2022 Medicare [id number] 2022 Self-pay 1959 Unknown [id number] 1955 Unknown [id number] 2.16.84 0.1.983922.3.579.2.593 1953 Unknown [id number] 2.16.84 0.1.010503.3.579.2.593 1953 Unknown [id number] 2.16.84 0.1.452281.3.579.2.593 1953 Unknown [id number] 2.16.84 0.1.544673.3.579.2.593 1953 Unknown [id number] 2.16.84 0.1.232459.3.579.2.593 1953 Unknown [id number] 2.16.84 0.1.747903.3.579.2.593 1953 Unknown [id number] 2.16.84 0.1.856628.3.579.2.593 1953 Unknown [id number] 2.16.84 0.1.691304.3.579.2.593 1953 Unknown [id number] 2.16.84 0.1.027153.3.579.2.593 1953 Unknown [id number] 2.16.84 0.1.289549.3.579.2.593 1953 Unknown [id number] 2.16.84 0.1.640466.3.579.2.593 1953 Unknown [id number] 2.16.84 0.1.248260.3.579.2.593 1953 Unknown [id number] 2.16.84 0.1.211811.3.579.2.593 1953 Unknown [id number] 2.16.84 0.1.506212.3.579.2.593 1953 Unknown [id number] 2.16.84 0.1.924920.3.579.2.593 1953 Unknown [id number] 2.16.84 0.1.107308.3.579.2.593 1953 Unknown [id number] 2.16.84 0.1.116799.3.579.2.593 1953 Unknown [id number] 2.16.84 0.1.179177.3.579.2.593 1953 Unknown [id number] 2.16.84 0.1.240134.3.579.2.593 1953 Unknown [id number] 2.16.84 0.1.911915.3.579.2.593 1953 Unknown [id number] 2.16.84 0.1.706884.3.579.2.593 1953 Unknown [id number] 2.16.84 0.1.916238.3.579.2.593 1955 Unknown [id number] 2.16. 840.1.057496.3.579.2.196 1955 Unknown [id number] 2.16.8 40.1.723056.3.579.2.727 Medicare [id number] [place] [facility] [id number] Unknown [employer] [id number] Unknown [id number] 2.16.8 40.1.148034.3.579.2.531 Social History Date Type Detail Facility [facility] if ever smoked [facility] Work Phone: Start: 1955 Sex Assigned At Female F [facility] Clinical Notes 11-05-2021 to 11-28-2023 Note Date & Type Note Facility 11-28-2023 Note [facility] Note Chief Complaint: Patient here [...] mouth in the morning., Disp: , Rfl: fhlzdibkrm-dxetrpockjhsp-onye 50-325-40 mg tablet, Take 1 tablet by [...] sinus rhythm Echocar (more content not included)... [facility] 10-18-2023 Note [facility] Note Chief Complaint: New patient here to establish care. Ref from Dr. Townsend for abnormal EKG. She also wore 7 day Holter monitor, and says she did not work while wearing this. She works at [employer] and says it's very fast paced. States she drinks a 5 Hour Energy shot almost every day. She was admitted to [facility] for migraine recently and was found to have abnormal EKG. Recently has noticed a twinge of chest pain. C/o DAI, palpitations, and lightheadedness. HPI: Mary Vick is a 68 y.o. female With a history of hypertension and hypothyroidism who presents due to an abnormal Holter monitor She was admitted to the [facility] for migraine; a monitor revealed [...] Plan: Routine labs (more content not included)... [facility] 07-08-2022 Note CONSULTATION PROCEDURE DATE: 07/08/2022 [...] in the clinic in three months. [facility] 06-24-2022 Note CONSULTATION CONSULTATION DATE: [...] at a time, as she works at [employer]. Current medications include Percocet 5/325 daily, diclofenac [...] pending approval for her knee injections. [facility] 04-08-2022 Note CONSULTATION CONSULTATION DATE: [...] three months' time unless otherwise indicated. [facility] 03-09-2022 Note CONSULTATION CONSULTATION DATE: [...] to proceed. CC: Natividad Silva CNP [facility] 01-28-2022 Note CONSULTATION CONSULTATION DATE: [...] and re-evaluation of her bursa injection. [facility] 01-28-2022 Note CONSULTATION PROCEDURE DATE: [...] be followed up in the clinic. [facility] 11-12-2021 Note PROCEDURE: XR HIPS [...] by: RAUDEL ESTRADA Date: 2021-11-12 07:50 [facility] 11-05-2021 Note CONSULTATION PROCEDURE DATE:11/05/2021 [...] Approved by: JOEL RAMON . 11/18/2021 16:24:00 [facility] 11-05-2021 Note CONSULTATION CONSULTATION DATE: 11/05/2021 [...] time, was working half a day at [employer] and since then has increased to full [...] by: JOEL RAMON . 11/18/2021 16:24:00 [facility] Evaluation note No assessment information availa [facility] Work Phone: Summary Purpose Family History [...] and content) DATE CREATED AUTHOR 12/21/2017 [facility] DATE CREATED AUTHOR AUTHOR'S ORGANIZ ATION 05/01/2018 [facility] DATE CREATED AUTHOR AUTHOR'S ORGANIZ ATION 05/17/2022 [facility] DATE CREATED AUTHOR AUTHOR'S ORGANIZ ATION 10/06/2022 [facility] DATE CREATED AUTHOR AUTHOR'S ORGANIZ ATION 08/03/2023 [facility] DATE CREATED AUTHOR AUTHOR'S ORGANIZ ATION 11/28/2023 [facility] DATE CREATED AUTHOR AUTHOR'S ENE ATION 03/15/2024 Santiago Bowers [facility] Care Teams (unrecognized sec tion and [...] BE BASED ON THE PRIMARY CLINICAL RECORDS. [employer] provides no warranty or guarantee of the accuracy or completeness of information in this document.
[2024-03-18 16:22] VITALS: BP 171/82; PULSE 62; TEMP 36.7; O2SAT 100; BMI 34.8
--- NOTE | 2024-03-18 17:24 | CT_ITS ---
The [address] [address] Patient Name: MELANIE TOMPKINS MRN: [id number] date: 1955 Sex: F Assigned Patient Location: ED.MAIN Current Patient Location: ED.MAIN Accession/Order Number: [id number] Exam Date: 03/18/2024 18:35 Report Date: 03/18/2024 19:20 At the request of: CORBY BALES Procedure: CT head/brain wo con EXAMINATION: CT head/brain wo con HISTORY: resistant headache . COMPARISON: No relevant comparison available. TECHNIQUE: Axial CT images were obtained without IV contrast. Dose reduction techniques were achieved by using automated exposure control and/or adjustment of mA and/or kV according to patient size and/or use of iterative reconstruction technique. FINDINGS: BRAIN: No edema, hemorrhage, mass, acute infarction, or inappropriate atrophy. CSF SPACES: No hydrocephalus, subarachnoid hemorrhage, or mass. Appropriate for age. SKULL: No fracture, mass, or other significant visible lesion. SINUSES: No significant mucosal thickening or fluid on the limited views. ORBITS: No appreciable abnormality on the limited views. OTHER: Negative CT/CT head/brain wo con IMPRESSION: 1. No acute cranial hemorrhage or appreciable abnormality to account for patient's symptoms. 2. Mild, age consistent chronic changes. Electronically authenticated by: RAUDEL ESTRADA Date: 03/18/2024 19:20
[2024-03-18] MEDS: PROCHLORPERAZINE 10 MG/2 ML VIAL IV (17:46)
[2024-03-18] MEDS: KETOROLAC TROMETHAMINE 30 MG/ML VIAL 15 MG IVP (17:46)
[2024-03-18] MEDS: DIPHENHYDRAMINE HCL 50 MG/ML VIAL 25 MG IV (17:46)
--- NOTE | 2024-03-18 18:40 | ED.GENADUL1 ---
HPI HPI - General Adult General Chief complaint: Headache Stated complaint: HEADACHE Time Seen by Provider: 03/18/24 16:26 Source: patient Mode of arrival: walk-in Limitations: no limitations History of Present Illness HPI narrative: The patient have a history of migraine apparently had injection given to her IM by her primary care almost 3 days ago after which her headache resolved and came back Coming again today with a right-sided headache associated with photosensitivity and nausea Related Data Home Medications ?Medication ?Instructions ?Recorded ?Confirmed albuterol sulfate 90 mcg/actuation 2 inh inhalation Q6H PRN shortness 10/21/22 02/21/24 breath activated powder inhaler of breath or wheezing aripiprazole 30 mg tablet (Abilify) 30 mg PO QDAY 10/21/22 02/21/24 diclofenac sodium 50 mg 50 mg PO BID 10/21/22 02/21/24 tablet,delayed release fluoxetine 40 mg capsule (Prozac) 80 mg PO QDAY 10/21/22 02/21/24 omeprazole 40 mg capsule,delayed 80 mg PO DAILY 10/21/22 02/21/24 release ropinirole 1 mg tablet 2 mg PO QDAY PRN restless leg(s) 10/21/22 02/21/24 amitriptyline 25 mg tablet 25 mg PO BEDTIME 09/15/23 02/21/24 Previous Rx's ?Medication ?Instructions ?Recorded arzermfocq-jdrpiaouiqlui-wmtvtaaq 1 tab PO Q4H PRN Migraine Headache 09/17/23 50 mg-325 mg-40 mg tablet #30 tabs levothyroxine 50 mcg tablet 50 mcg PO QDAY #30 tabs 09/17/23 (Euthyrox) oxycodone-acetaminophen 5 mg-325 1 tab PO DAILY PRN pain #30 tabs 02/16/24 mg tablet (Percocet) Allergies Allergy/AdvReac Type Severity Reaction Status Date / Time sumatriptan (From Imitrex) Allergy Severe Palpitation Verified 02/21/24 08:54 s Opioid HPI Opioid Management Most Recent Opioid Data: Last Pain Scale 7 03/18/24 17:46 03/18/24 Last MAR Pain Assessment 03/18/24 17:46 Last ORT Total Score 9 09/15/23 12:42 09/15/23 Last ORT Risk Category High Risk 09/15/23 12:42 09/15/23 Review of Systems ROS Status of ROS 10 or more systems reviewed and unremarkable except as noted in history and below PFSH PFS Medical History Migraine ?G43.909 - Migraine, unspecified, not intractable, without status migrainosus (ICD-10) Loud snoring ?R06.83 - Snoring (ICD-10) Osteoarthritis ?M19.90 - Unspecified osteoarthritis, unspecified site (ICD-10) Neck pain ?M54.2 - Cervicalgia (ICD-10) Bipolar 1 disorder ?F31.9 - Bipolar disorder, unspecified (ICD-10) Hearing deficit ?H91.90 - Unspecified hearing loss, unspecified ear (ICD-10) Anxiety ?F41.9 - Anxiety disorder, unspecified (ICD-10) Acid reflux ?K21.9 - Gastro-esophageal reflux disease without esophagitis (ICD-10) Obesity ?E66.9 - Obesity, unspecified (ICD-10) Hypothyroid ?E03.9 - Hypothyroidism, unspecified (ICD-10) Pulmonary hypertension ?I27.20 - Pulmonary hypertension, unspecified (ICD-10) Sleep apnea ?G47.30 - Sleep apnea, unspecified (ICD-10) High cholesterol ?E78.00 - Pure hypercholesterolemia, unspecified (ICD-10) Hypertension ?I10 - Essential (primary) hypertension (ICD-10) Surgical History History of mandibular surgery ?Z98.890 - Other specified postprocedural states (ICD-10) Hx of tubal ligation ?Z98.51 - Tubal ligation status (ICD-10) History of appendectomy ?Z90.49 - Acquired absence of other specified parts of digestive tract (ICD-10) History of hysterectomy ?Z90.710 - Acquired absence of both cervix and uterus (ICD-10) Family History Mother Family history of cancer Sister Family history of cancer Social History Within the past year, how often did you have a drink containing alcohol: never Score interpretation: A score less than 3 is consistent with normal alcohol consumption. Smoking status: Former smoker Non-prescribed substance use: denies use Previous occupational history: [employer] Highest level of school completed/degree received: 11th grade Are you now , , , , never or living with a partner: In a typical week, how many times do you talk on the telephone with family, friends, or neighbors: 3 or more times per week How often do you get together with friends or relatives: 3 or more times per week How often do you attend holiness or quaker services: 4 or more times per year Do you belong to any clubs or organizations such as holiness groups unions, [employer] or athletic groups, or school groups: no Total score: 2 Score interpretation: A score of greater than or equal to 2 indicates the lowest level of social isolation. Little interest or pleasure in doing things: not at all Feeling down, depressed, or hopeless: not at all Feel stressed/tense/nervous/anxious/difficulty sleeping: not at all Gender Identity: female Exam Narrative Exam Narrative: Nurses notes and vital signs reviewed and patient is not hypoxic. General: Well-appearing and in no apparent distress. Skin: Warm, dry, no pallor noted. No rash. Head: Normocephalic, atraumatic. Neck: Supple, non-tender. Eye: Pupils are equal, round and EOMI. No scleral icterus. Ears, Nose, Mouth, and Throat: TM are clear, no nasal mucosal hypertrophy. Oral mucosa is moist, no posterior oropharynx erythema, uvula is mid-line Cardiovascular: Regular Rate and Rhythm without murmur, gallop or rub. Respiratory: No accessory muscle use or respiratory distress. Lungs are clear to auscultation, no wheezing, rales or rhonchi Chest Wall: no tenderness Back: No midline thoracic or lumbar vertebral tenderness. No CVA tenderness Musculoskeletal: normal ROM, no calf or popliteal tenderness, no lower extremity edema/swelling GI: Abdomen is soft, non-distended. Normal bowel sounds. No masses appreciated. No tenderness to palpation. No rebound, guarding, or rigidity noted. Neurological: A&O x4. No cranial nerve dysfunction observed. No truncal ataxia. Moves all extremities. Sensation intact. Psychiatric: Cooperative and interactive. Normal mood and affect. Constitutional Vital Signs, click to edit/add: Last Vital Signs Temp 98.0 F 03/18/24 16:22 Pulse 62 03/18/24 16:22 Resp 18 03/18/24 16:22 BP 171/82 H 03/18/24 16:22 Pulse Ox 100 03/18/24 16:22 O2 Del Method Room Air 03/18/24 16:22 Course Vital Signs Vital signs: Vital Signs Temperature 98.0 F 03/18/24 16:22 Pulse Rate 62 03/18/24 16:22 Respiratory Rate 18 03/18/24 16:22 Blood Pressure 171/82 H 03/18/24 16:22 Pulse Oximetry 100 03/18/24 16:22 Oxygen Delivery Method Room Air 03/18/24 16:22 Temperature 98.0 F 03/18/24 16:22 Pulse Rate 62 03/18/24 16:22 Respiratory Rate 18 03/18/24 16:22 Blood Pressure 171/82 H 03/18/24 16:22 Pulse Oximetry 100 03/18/24 16:22 Oxygen Delivery Method Room Air 03/18/24 16:22 Medical Decision Making MDM Narrative Medical decision making narrative: Due to the resistant headache the patient will have a CT head without contrast but she that her blood pressure is above 170 systolic The patient had a IV the ablation with Toradol and Benadryl as well as Compazine given Discharge Plan Discharge Patient Disposition: Still a Patient
--- NOTE | 2024-03-18 19:26 | ED.GENADUL1 ---
HPI HPI - General Adult General Chief complaint: Headache Stated complaint: HEADACHE Time Seen by Provider: 03/18/24 16:26 Source: patient Mode of arrival: walk-in Limitations: no limitations Related Data Home Medications ?Medication ?Instructions ?Recorded ?Confirmed albuterol sulfate 90 mcg/actuation 2 inh inhalation Q6H PRN shortness 10/21/22 02/21/24 breath activated powder inhaler of breath or wheezing aripiprazole 30 mg tablet (Abilify) 30 mg PO QDAY 10/21/22 02/21/24 diclofenac sodium 50 mg 50 mg PO BID 10/21/22 02/21/24 tablet,delayed release fluoxetine 40 mg capsule (Prozac) 80 mg PO QDAY 10/21/22 02/21/24 omeprazole 40 mg capsule,delayed 80 mg PO DAILY 10/21/22 02/21/24 release ropinirole 1 mg tablet 2 mg PO QDAY PRN restless leg(s) 10/21/22 02/21/24 amitriptyline 25 mg tablet 25 mg PO BEDTIME 09/15/23 02/21/24 Previous Rx's ?Medication ?Instructions ?Recorded wqxpvcujnc-mmimwasrtsmlc-jxfwauna 1 tab PO Q4H PRN Migraine Headache 09/17/23 50 mg-325 mg-40 mg tablet #30 tabs levothyroxine 50 mcg tablet 50 mcg PO QDAY #30 tabs 09/17/23 (Euthyrox) oxycodone-acetaminophen 5 mg-325 1 tab PO DAILY PRN pain #30 tabs 02/16/24 mg tablet (Percocet) Allergies Allergy/AdvReac Type Severity Reaction Status Date / Time sumatriptan (From Imitrex) Allergy Severe Palpitation Verified 02/21/24 08:54 s Opioid HPI Opioid Management Most Recent Opioid Data: Last Pain Scale 7 03/18/24 17:46 03/18/24 Last ED Pain Assessment 03/18/24 19:52 Last MAR Pain Assessment 03/18/24 17:46 Last ORT Total Score 9 09/15/23 12:42 09/15/23 Last ORT Risk Category High Risk 09/15/23 12:42 09/15/23 PFSH PFSH Medical History Migraine ?G43.909 - Migraine, unspecified, not intractable, without status migrainosus (ICD-10) Loud snoring ?R06.83 - Snoring (ICD-10) Osteoarthritis ?M19.90 - Unspecified osteoarthritis, unspecified site (ICD-10) Neck pain ?M54.2 - Cervicalgia (ICD-10) Bipolar 1 disorder ?F31.9 - Bipolar disorder, unspecified (ICD-10) Hearing deficit ?H91.90 - Unspecified hearing loss, unspecified ear (ICD-10) Anxiety ?F41.9 - Anxiety disorder, unspecified (ICD-10) Acid reflux ?K21.9 - Gastro-esophageal reflux disease without esophagitis (ICD-10) Obesity ?E66.9 - Obesity, unspecified (ICD-10) Hypothyroid ?E03.9 - Hypothyroidism, unspecified (ICD-10) Pulmonary hypertension ?I27.20 - Pulmonary hypertension, unspecified (ICD-10) Sleep apnea ?G47.30 - Sleep apnea, unspecified (ICD-10) High cholesterol ?E78.00 - Pure hypercholesterolemia, unspecified (ICD-10) Hypertension ?I10 - Essential (primary) hypertension (ICD-10) Surgical History History of mandibular surgery ?Z98.890 - Other specified postprocedural states (ICD-10) Hx of tubal ligation ?Z98.51 - Tubal ligation status (ICD-10) History of appendectomy ?Z90.49 - Acquired absence of other specified parts of digestive tract (ICD-10) History of hysterectomy ?Z90.710 - Acquired absence of both cervix and uterus (ICD-10) Family History Mother Family history of cancer Sister Family history of cancer Social History Within the past year, how often did you have a drink containing alcohol: never Score interpretation: A score less than 3 is consistent with normal alcohol consumption. Smoking status: Former smoker Non-prescribed substance use: denies use Previous occupational history: [employer] Highest level of school completed/degree received: 11th grade Are you now , , , , never or living with a partner: In a typical week, how many times do you talk on the telephone with family, friends, or neighbors: 3 or more times per week How often do you get together with friends or relatives: 3 or more times per week How often do you attend christianity or cheondoism services: 4 or more times per year Do you belong to any clubs or organizations such as christianity groups unions, fraternal or athletic groups, or school groups: no Total score: 2 Score interpretation: A score of greater than or equal to 2 indicates the lowest level of social isolation. Little interest or pleasure in doing things: not at all Feeling down, depressed, or hopeless: not at all Feel stressed/tense/nervous/anxious/difficulty sleeping: not at all Gender Identity: female Exam Constitutional Vital Signs, click to edit/add: Last Vital Signs Temp 98.0 F 03/18/24 16:22 Pulse 54 L 03/18/24 19:37 Resp 18 03/18/24 19:37 BP 164/73 H 03/18/24 19:37 Pulse Ox 98 03/18/24 19:37 O2 Del Method Room Air 03/18/24 19:37 Course Vital Signs Vital signs: Vital Signs Temperature 98.0 F 03/18/24 16:22 Pulse Rate 62 03/18/24 16:22 Respiratory Rate 18 03/18/24 16:22 Blood Pressure 171/82 H 03/18/24 16:22 Pulse Oximetry 100 03/18/24 16:22 Oxygen Delivery Method Room Air 03/18/24 16:22 Temperature 98.0 F 03/18/24 16:22 Pulse Rate 54 L 03/18/24 19:37 Respiratory Rate 18 03/18/24 19:37 Blood Pressure 164/73 H 03/18/24 19:37 Pulse Oximetry 98 03/18/24 19:37 Oxygen Delivery Method Room Air 03/18/24 19:37 Medical Decision Making MDM Narrative Medical decision making narrative: [place] [address] CT Scan Report Signed Patient: MELANIE TOMPKINS MR#: [id number] : 1955 Acct:[id number] Age/Sex: 68 / F ADM Date: 03/18/24 Loc: ER Attending Dr: Ordering Physician: Corby Bales Date of Service: 03/18/24 Procedure(s): CT head/brain wo con Accession Number(s): [id number] cc: POLO SILVA ~ [facility] [place] [address] [place] [id number] Patient Name: MELANIE TOMPKINS MRN: [id number] date: 1955 Sex: F Assigned Patient Location: ED.MAIN Current Patient Location: ED.MAIN Accession/Order Number: [id number] Exam Date: 03/18/2024 18:35 Report Date: 03/18/2024 19:20 At the request of: CORBY BALES Procedure: CT head/brain wo con EXAMINATION: CT head/brain wo con HISTORY: resistant headache . COMPARISON: No relevant comparison available. TECHNIQUE: Axial CT images were obtained without IV contrast. Dose reduction techniques were achieved by using automated exposure control and/or adjustment of mA and/or kV according to patient size and/or use of iterative reconstruction technique. FINDINGS: BRAIN: No edema, hemorrhage, mass, acute infarction, or inappropriate atrophy. CSF SPACES: No hydrocephalus, subarachnoid hemorrhage, or mass. Appropriate for age. SKULL: No fracture, mass, or other significant visible lesion. SINUSES: No significant mucosal thickening or fluid on the limited views. ORBITS: No appreciable abnormality on the limited views. OTHER: Negative CT/CT head/brain wo con IMPRESSION: 1. No acute cranial hemorrhage or appreciable abnormality to account for patient's symptoms. 2. Mild, age consistent chronic changes. Electronically authenticated by: RAUDEL ESTRADA Date: 03/18/2024 19:20 Discharge Plan Discharge Chief Complaint: Headache Clinical Impression: Headache, migraine Patient Disposition: Home, Self-Care Time of Disposition Decision: 19:42 Condition: Good Prescriptions / Home Meds: No Action oxycodone-acetaminophen [Percocet] 5-325 mg tablet 1 tab PO DAILY PRN (Reason: pain) Qty: 30 0RF aripiprazole [Abilify] 30 mg tablet 30 mg PO QDAY fluoxetine [Prozac] 40 mg capsule 80 mg PO QDAY omeprazole 40 mg capsule,delayed release(DR/EC) 80 mg PO DAILY ropinirole 1 mg tablet 2 mg PO QDAY PRN (Reason: restless leg(s)) albuterol sulfate 90 mcg/actuation aerosol powdr breath activated 2 inh inhalation Q6H PRN (Reason: shortness of breath or wheezing) diclofenac sodium 50 mg tablet,delayed release (DR/EC) 50 mg PO BID amitriptyline 25 mg tablet 25 mg PO BEDTIME pahqmiatdb-nbsirpbwhftpq-uazl 50-325-40 mg Tablet 1 tab PO Q4H PRN (Reason: Migraine Headache) Qty: 30 2RF levothyroxine [Euthyrox] 50 mcg tablet 50 mcg PO QDAY Qty: 30 11RF Print Language: Macanese Instructions: Migraine Headache (ED) Referrals: POLO SILVA [Primary Care Provider] - 1 week
[2024-03-18 19:37] VITALS: BP 164/73; PULSE 54; O2SAT 98
[2024-03-18] MEDS: ORPHENADRINE 60 MG/ 2 ML VIAL IM (19:48)
== END 2024-03-18 20:34 | disposition home or self-care (01) ==
PROVIDERS: Emergency Provider Emergency Medicine; PCP Nurse Practitioner Family
DX: G43.909 Migraine, unspecified, not intractable, without status migrainosus (principal); Z87.891 Personal history of nicotine dependence
CPT/HCPCS: 70450; 96372; 96374; 96375; 99285; J0780; J1200; J1885; J2360

== ENCOUNTER 2024-03-21 14:53 | Outpatient (OUT) | payer MEDICARE, SELFPAY ==
--- NOTE | 2024-03-21 15:11 | P.CN_ITS ---
Consult Note: HPI Data of Consult Requesting Physician: Shweta Crowley NP Primary Care Provider: POLO SILVA Consult Narrative Reason for consult: f/u Narrative: Mary Vick a pleasant 68 year old female presents for evaluation and management of chronic bilateral knee and GTB pain. bilateral knee injection providing 70% improvement ongoing. patient would like to repeat bilateral GTB injections as her pain has severely increased, not responding to heat/ice topical cream or current medications. overall finding benefit to current medication regimen without side effects for chronic pain. cc:: CC: Shweta Crowley NP Review of Systems ROS Status of ROS 10 or more systems reviewed and unremark able except as noted in history and below Musculoskeletal Reports: extremity pain and joint pain PFSH PFSH Medical History Migraine ?G43.909 - Migraine, unspecified, not intractable, without status migrainosus (ICD-10) Loud snoring ?R06.83 - Snoring (ICD-10) Osteoarthritis ?M19.90 - Unspecified osteoarthritis, unspecified site (ICD-10) Neck pain ?M54.2 - Cervicalgia (ICD-10) Bipolar 1 disorder ?F31.9 - Bipolar disorder, unspecified (ICD-10) Hearing deficit ?H91.90 - Unspecified hearing loss, unspecified ear (ICD-10) Anxiety ?F41.9 - Anxiety disorder, unspecified (ICD-10) Acid reflux ?K21.9 - Gastro-esophageal reflux disease without esophagitis (ICD-10) Obesity ?E66.9 - Obesity, unspecified (ICD-10) Hypothyroid ?E03.9 - Hypothyroidism, unspecified (ICD-10) Pulmonary hypertension ?I27.20 - Pulmonary hypertension, unspecified (ICD-10) Sleep apnea ?G47.30 - Sleep apnea, unspecified (ICD-10) High cholesterol ?E78.00 - Pure hypercholesterolemia, unspecified (ICD-10) Hypertension ?I10 - Essential (primary) hypertension (ICD-10) Surgical History History of mandibular surgery ?Z98.890 - Other specified postprocedural states (ICD-10) Hx of tubal ligation ?Z98.51 - Tubal ligation status (ICD-10) History of appendectomy ?Z90.49 - Acquired absence of other specified parts of digestive tract (ICD- 10) History of hysterectomy ?Z90.710 - Acquired absence of both cervix and uterus (ICD-10) Family History Mother Family history of cancer Sister Family history of cancer Social History Within the past year, how often did you have a drink containing alcohol: never Score interpretation: A score less than 3 is consistent with normal alcohol consumption. Smoking status: Former smoker Non-prescribed substance use: denies use Previous occupational history: [employer] Highest level of school completed/degree received: 11th grade Are you now , , , , never or living with a partner: In a typical week, how many times do you talk on the telephone with family, friends, or neighbors: 3 or more times per week How often do you get together with friends or relatives: 3 or more times per week How often do you attend christian or anabaptism services: 4 or more times per year Do you belong to any clubs or organizations such as christian groups unions, [employer] or athletic groups, or school groups: no Total score: 2 Score interpretation: A score of greater than or equal to 2 indicates the lowest level of social isolation. Little interest or pleasure in doing things: not at all Feeling down, depressed, or hopeless: not at all Feel stressed/tense/nervous/anxious/difficulty sleeping: not at all Gender Identity: female Meds Home Medications and Allergies Home Medications ?Medication ?Instructions ?Recorded ?Confirmed ?Type albuterol sulfate 90 mcg/actuation 2 inh inhalation Q6H PRN shortness 10/21/22 02/21/24 History breath activated powder inhaler of breath or wheezing aripiprazole 30 mg tablet (Abilify) 30 mg PO QDAY 10/21/22 02/21/24 History diclofenac sodium 50 mg 50 mg PO BID 10/21/22 02/21/24 History tablet,delayed release fluoxetine 40 mg capsule (Prozac) 80 mg PO QDAY 10/21/22 02/21/24 History omeprazole 40 mg capsule,delayed 80 mg PO DAILY 10/21/22 02/21/24 History release ropinirole 1 mg tablet 2 mg PO QDAY PRN restless leg(s) 10/21/22 02/21/24 History amitriptyline 25 mg tablet 25 mg PO BEDTIME 09/15/23 02/21/24 History edrrhefeds-axudeahiyczlq-fpbzveou 1 tab PO Q4H PRN Migraine Headache 09/17/23 02/21/24 Rx 50 mg-325 mg-40 mg tablet #30 tabs levothyroxine 50 mcg tablet 50 mcg PO QDAY #30 tabs 09/17/23 02/21/24 Rx (Euthyrox) oxycodone-acetaminophen 5 mg-325 1 tab PO DAILY PRN pain #30 tabs 02/16/24 02/21/24 Rx mg tablet (Percocet) Allergies Allergy/AdvReac Type Severity Reaction Status Date / Time sumatriptan (From Imitrex) Allergy Severe Palpitation Verified 02/21/24 08:54 s Exam Constitutional Documenting provider has reviewed patient's vital signs: yes Common normals: no apparent distress, oriented x3, healthy appearing, alert and well nourished General appearance: cooperative HENMT Common normals: normocephalic, hearing grossly normal bilaterally and moist oral mucous membranes Head and scalp: normocephalic Eye Common normals: PERRL Pupil: PERRL Neck & C-Spine Common normals: full ROM General: normal visual inspection Chest Common normals: inspection of chest normal Respiratory Common normals: normal respiratory effort, no retractions and no use of accessory muscles Back & Pelvis Thoracic spine/upper back: ROM limited and pain with ROM Lumbar spine/lower back: ROM limited, pain with ROM and straight leg raise negative bilaterally Other: predominately axial low back pain, pain and tenderness across T12-L2 facets no radiculopathy facet loading positive bilaterally Extremity Common normals: normal to inspection and full ROM Right lower extremity: knee joint Left lower extremity: knee joint Other: mild to moderate pain over bilateral GTB mild pain with left internal log roll mild edema to bilateral knees, increased pain with medial and lateral stress testing, no instability noted Neuro Common normals: oriented x3, CN's II-XII intact bilaterally, moves all extremities, no focal motor deficits, no sensory deficits noted and deep tendon reflexes 2+ bilaterally Sensorium/orientation: alert Gait (neuro): antalgic Motor exam: strength 5/5 throughout and no movement abnormalities noted Psych Common normals: mental status grossly normal, thought process normal, cooperative, affect normal, speech normal and activity/motor behavior normal Speech: normal speech Thought process: normal thought process Assessment and Plan Assessment and Plan (1) Encounter for long-term opiate analgesic use: (2) Greater trochanteric bursitis of both hips: (3) Thoracic spondylosis: (4) Lumbar spondylosis: (5) Bilateral primary osteoarthritis of knee: Plan repeat bilateral GTB injections continue current medication regimen f/u 3 months for medication management
== END 2024-03-21 14:54 | disposition home or self-care (01) ==
PROVIDERS: PCP Nurse Practitioner Family; Visit Provider Nurse Practitioner
DX: Z79.891 Long term (current) use of opiate analgesic (principal); M70.62 Trochanteric bursitis, left hip; M70.61 Trochanteric bursitis, right hip; M47.814 Spondylosis without myelopathy or radiculopathy, thoracic region; M47.816 Spondylosis without myelopathy or radiculopathy, lumbar region; M17.0 Bilateral primary osteoarthritis of knee
CPT/HCPCS: G0463

== ENCOUNTER 2024-04-10 14:09 | Outpatient (OUT) | payer MEDICARE, SELFPAY ==
--- NOTE | 2024-04-10 | CONS_ITS ---
PROCEDURE DATE: 04/10/2024 PROCEDURE: Bilateral trochanteric bursa injections. PREOPERATIVE DIAGNOSIS: Pain secondary to bilateral trochanteric bursitis. POSTOPERATIVE DIAGNOSIS: Pain secondary to bilateral trochanteric bursitis. SOLUTION USED FOR INJECTION: 2 mL of 2% lidocaine, 2 mL of 0.25% Marcaine and 10 mg of Kenalog, total of 5 mL, and 5 mL used for the injection at the site. IMMEDIATE COMPLICATIONS: None. PROCEDURE: After informed consent was obtained from the patient, placed in the standing position. Skin overlying the area was prepped with alcohol. A 25 gauge, 1 ?? needle inserted over the area of the right trochanteric bursa. Needle was advanced to the point that was just proximal to the insertion of the right gluteus medius. After encountering same, we injected 5 mL of solution in divided doses. This was repeated in a similar fashion on the contralateral side. Post procedure, needle was removed. She tolerated procedure well without any complications. Reports a reduction in pain symptoms post procedurally. NATAN
--- OUTSIDE RECORDS SUMMARY | 2024-04-10 14:21 | XMS_ITS | CCD ---
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 Performed By: #### B CONCRETE STONE FABRICATOR, HSTROPN, CMP #### [facility] [address] [place] [address] Dr. Deborah Mohan AST [Catalytic activity/Vol] 17 U/L Normal 15-37 [facility] Comment on above: Performed By: #### B CONCRETE STONE FABRICATOR, HSTROPN, CMP #### [facility] [address] [place] [address] Dr. Deborah Mohan Bilirubin [Mass/Vol] 0.2 mg/dL Normal 0.2-1.0 [facility] Comment on above: Performed By: #### B CONCRETE STONE FABRICATOR, HSTROPN, CMP #### [facility] [address] [place] [address] Dr. Deborah Mohan Calcium [Mass/Vol] 8.9 mg/dL Normal 8.5-10.1 [facility] Comment on above: Performed By: #### B CONCRETE STONE FABRICATOR, HSTROPN, CMP #### [facility] [address] [address] [address] Deborah Mohan Chloride [Moles/Vol] 106 mmol/L Normal 98-107 [facility] Comment on above: Performed By: #### B CONCRETE STONE FABRICATOR, HSTROPN, CMP #### [facility] [address] [place] [address] Dr. Deborah Mohan CO2 [Moles/Vol] 28.3 mmol/L Normal 21.0-32.0 [facility] Comment on above: Performed By: #### B CONCRETE STONE FABRICATOR, HSTROPN, CMP #### [facility] [address] [place], [place] [id number] Dr. Deborah Mohan Creatinine [Mass/Vol] 0.97 mg/dL Normal 0.55-1.02 [facility] Comment on above: Performed By: #### B CONCRETE STONE FABRICATOR, HSTROPN, CMP #### [facility] [address] [address] [address] Deborah Mohan EGFR-AF PAKISTANI >60 Normal >=60 [facility] Comment on above: Performed By: #### B CONCRETE STONE FABRICATOR, HSTROPN, CMP #### [facility] [address] [place] [address] Dr. Deborah Mohan EGFR-NON AF PAKISTANI 57 mL/min/1.73m2 Critically low >=60 [facility] Comment on above: Performed By: #### B CONCRETE STONE FABRICATOR, HSTROPN, CMP #### [facility] [address] [place] [address] Dr. Deborah Mohan Globulin (S) [Mass/Vol] 3.4 g/dL Normal [facility] Comment on above: Performed By: #### B CONCRETE STONE FABRICATOR, HSTROPN, CMP #### [facility] [address] [address] [address] Deborah Mohan Glucose [Mass/Vol] 103 mg/dL Normal 74-106 [facility] Comment on above: Performed By: #### B CONCRETE STONE FABRICATOR, HSTROPN, CMP #### [facility] [address] [place] [address] Dr. Deborah Mohan Potassium [Moles/Vol] 3.5 mmol/L Normal 3.5-5.1 [facility] Comment on above: Performed By: #### B CONCRETE STONE FABRICATOR, HSTROPN, CMP #### [facility] [address] [place] [address] Dr. Deborah Mohan Protein [Mass/Vol] 6.7 g/dL Normal 6.4-8.2 [facility] Comment on above: Performed By: #### B CONCRETE STONE FABRICATOR, HSTROPN, CMP #### [facility] [address] [place] [address] Dr. Deborah Mohan Sodium [Moles/Vol] 140 mmol/L Normal 136-145 [facility] Comment on above: Performed By: #### B CONCRETE STONE FABRICATOR, HSTROPN, CMP #### [facility] [address] [address] [address] Deborah Mohan Urea nitrogen [Mass/Vol] 21.0 mg/dL Critically high 7.0-18.0 [facility] Comment on above: Performed By: #### B CONCRETE STONE FABRICATOR, HSTROPN, CMP #### [facility] [address] [place] [address] Dr. Deborah Mohan Urea nitrogen/Creatinine [Mass ratio] 21.6 mg/mg Normal [facility] Comment on above: Performed By: #### B CONCRETE STONE FABRICATOR, HSTROPN, CMP #### [facility] [address] [place] [address] Dr. Deborah Mohan TROPONIN, HIGH SENSITIVITYon 09-17-2022 HSTROP 5.0 pg/mL Normal 4.0-51.3 [facility] Comment on above: Result Comment: CUT- OFF POINTS HAVE BEEN ESTABLISHED BASED ON THE FOURTH UNIVERSAL DEFINITIONS OF MYOCARDIAL INFARCTION. THE UPPER REFERENCE LIMIT (URL) OF TROPONIN, DEFINED THE 99TH PERCENTILE OF cTnI DISTRIBUTION IN A REFERENCE POPULATION, HAS BEEN CONFIRMED THE DECISION THRESHOLD FOR OR DIAGNOSIS. Performed By: #### B CONCRETE STONE FABRICATOR, HSTROPN, CMP #### [facility] [address] [place] [address] Dr. Deborah Mohan US FREDA DOP LEG [...] by: RAFIQ RON Date: 2022-09-17 11:54 Normal [facility] XR CHEST 1 Von 09-17-2022 XR CHEST [...] ROBERT CONDON Date: 2022-09-17 11:36 Normal [facility] SYMPTOMATIC COVID-19 ANTIGEN on 08-24-2022 EUA Statement SEE BELOW Normal [facility] Comment on above: Result Comment: [...] sooner. Performed By: #### A NARF #### [facility] [address] [place] [address] Dr. Deborah Mohan SARS-CoV-2 (COVID-19) RNA ERIC+probe Ql (Unsp spec) Positive Abnormal NEGATIVE [facility] Comment on above: Performed By: #### A NARF #### [facility] [address] [place] [address] Dr. Deborah Mohan FREE THYROXINE INDEX T7on FTI 3.30 Normal 1.30-4.50 [facility] Comment on above: Performed By: #### B CONCRETE STONE FABRICATOR, HSTROPN, CMP #### [facility] [address] [place] [address] Dr. Deborah Mohan T3U 34.0 % Normal 30.0-39.0 [facility] Comment on above: Performed By: #### B CONCRETE STONE FABRICATOR, HSTROPN, CMP #### [facility] [address] [place], [place] [address] Dr. Deborah Mohan T4 [Mass/Vol] 9.70 ug/dL Normal 4.80-13.[address] [facility] Comment on above: Performed By: #### B CONCRETE STONE FABRICATOR, HSTROPN, CMP #### [facility] [address] [place], [place] [address] Dr. Deborah Mohan IRONon 07-06-2022 Iron [Mass/Vol] 14.0 ug/dL Critically low 50.0-170.0 [facility] Comment on above: Performed By: #### I MIHAI ####[facility] [address] [place], [place] [address]BfDr. Deborah Mohan TSHon 07-06-2022 TSH 1.463 uIU/mL Normal 0.358-3.[address] [facility] Comment on above: Performed By: #### A NARF #### [facility] [address] [address] [address] Deborah Mohan XR ankle LT min 3V*on 2021 XR ankle LT min 3V* [facility] [place] [address] [place] [address] XRay Report Signed Patient: Mary Vick MR#: [id number] : 1955 Acct:[id number] Age/Sex: 66 / F ADM Date: 05/08/22 Loc: XDUCLY Room: Type: [facility] Attending Dr: Clarita ASCENCIO Copies to: [...] Stephen Gandara M.D.05/08/2022 2:42 PM Dictation Location: [place] [address] Transcribed By: [facility] 05/08/22 144 Dictated By: Stephen Gandara II, MD 05/08/221439 Signed By: 05/08/22 144 Normal [facility] XR wrist LT min 3V*on 2021 XR wrist LT min 3V* [facility] [place] [address] [place] [address] XRay Report Signed Patient: Mary Vick MR#: [id number] : 1955 Acct:[id number] Age/Sex: 66 / F ADM Date: 05/08/22 Loc: XDUCLY Room: Type: [facility] Attending Dr: Clarita ASCENCIO Copies to: [...] Stephen Gandara M.D.05/08/2022 2:40 PM Dictation Location: [place] [address] Transcribed By: [facility] 05/08/22 1440 Dictated By: Stephen Gandara II, MD 05/08/22 1437 Signed By: 05/08/22 1440 [facility] CBC AUTO DIFFon 04-07-2022 BASO # 0.1 103/ul Normal 0.0-0.1 [facility] Comment on above: Performed By: #### A NARF #### [facility] [address] [place] [address] [address] Deborah Mohan Basophils/100 WBC (Bld) 0.8 % Normal 0.2-2.0 [facility] Comment on above: Performed By: #### A NARF #### [facility] [address] [place] [address] Dr. Deborah Mohan EO # 0.3 103/ul Normal 0.0-0.7 [facility] Comment on above: Performed By: #### A NARF #### [facility] [address] [place] [address] [address] Deborah Mohan Eosinophils/100 WBC (Bld) 2.6 % Normal 0.9-7.0 [facility] Comment on above: Performed By: #### A NARF #### [facility] [address] [place] [address] Dr. Deborah Mohan Erythrocyte distribution width (RBC) [Ratio] 19.9 % Critically high 11.0-15.0 [facility] Comment on above: Performed By: #### A NARF #### [facility] [address] [place] [address] Dr. Deborah Mohan Hematocrit (Bld) [Volume fraction] 28.8 % Critically low 36.0-48.0 [facility] Comment on above: Performed By: #### A NARF #### [facility] [address] [place] [address] Dr. Deborah Mohan Hemoglobin (Bld) [Mass/Vol] 8.9 g/dL Critically low 12.0-16.0 [facility] Comment on above: Performed By: #### A NARF #### [facility] [address] [address] [address] Deborah Mohan IG # 0.07 10e3/ul Critically high 0.00-0.[address] [facility] Comment on above: Performed By: #### A NARF #### [facility] [address] [place] [address] Dr. Deborah Mohan IG % 0.7 % Critically high 0.0-0.5 [facility] Comment on above: Performed By: #### A NARF #### [facility] [address] [place] [address] Dr. Deborah Mohan LYMPH # 1.9 103/ul Normal 1.2-3.8 [facility] Comment on above: Performed By: #### A NARF #### [facility] [address] [place] [address] Dr. Deborah Mohan Lymphocytes/100 WBC (Bld) 18.2 % Critically low 20.5-60.0 [facility] Comment on above: Performed By: #### A NARF #### [facility] [address] [place] [address] Dr. Deborah Mohan MANUAL DIFF REQ NO Normal [facility] Comment on above: Performed By: #### A NARF #### [facility] [address] [place] [address] Dr. Deborah Mohan MCH (RBC) [Entitic mass] 25.3 pg Critically low 26.7-34.0 [facility] Comment on above: Performed By: #### A NARF #### [facility] [address] [place] [address] Dr. Deborah Mohan MCHC (RBC) [Mass/Vol] 30.9 g/dL Normal 29.9-35.2 [facility] Comment on above: Performed By: #### A NARF #### [facility] [address] [place] [address] Dr. Deborah Mohan MCV (RBC) [Entitic vol] 81.8 fL Normal 81.0-99.0 [facility] Comment on above: Performed By: #### A NARF #### [facility] [address] [place] [address] Dr. Deborah Mohan MONO # 0.7 103/ul Normal 0.3-0.8 [facility] Comment on above: Performed By: #### A NARF #### [facility] [address] [place] [address] Dr. Deborah Mohan Monocytes/100 WBC (Bld) 7.1 % Normal 1.7-12.0 [facility] Comment on above: Performed By: #### A NARF #### [facility] [address] [place] [address] Dr. Deborah Mohan NEUT # 7.4 103/ul Critically high 1.4-6.5 [facility] Comment on above: Performed By: #### A NARF #### [facility] [address] [place] [address] Dr. Deborah Mohan Neutrophils/100 WBC (Bld) 70.6 % Normal 43.0-75.0 [facility] Comment on above: Performed By: #### A NARF #### [facility] [address] [place] [address] Dr. Deborah Mohan Platelet mean volume (Bld) [Entitic vol] 9.7 fL Normal 9.5-13.5 [facility] Comment on above: Performed By: #### A NARF #### [facility] [address] [place] [address] Dr. Deborah Mohan PLT 398 103/ul Normal 150-450 [facility] Comment on above: Performed By: #### A NARF #### [facility] [address] [place] [address] Dr. Deborah Mohan RBC 3.52 106/ul Critically low 4.20-5.40 [facility] Comment on above: Performed By: #### A NARF #### [facility] [address] [place] [address] Dr. Deborah Mohan WBC 10.5 103/ul Normal 4.0-11.0 [facility] Comment on above: Performed By: #### A NARF #### [facility] [address] [place] [address] Dr. Deborah Mohan PROF 14(COMP METB)on 022 Albumin [Mass/Vol] 3.2 g/dL Critically low 3.4-5.0 Th [facility] Comment on above: Performed By: #### Robert BARRIOS, CMP ####[facility] [address] [place] [address]Dr. Deborah Mohan Albumin/Globulin [Mass ratio] 0.9 {ratio} Normal [facility] Comment on above: Performed By: #### Robert BARRIOS, CMP ####[facility] [address] [place] [address]Dr. Deborah Mohan ALP [Catalytic activity/Vol] 89 U/L Normal 46-116 [facility] Comment on above: Performed By: #### Robert BARRIOS, CMP ####[facility] [address] [place] [address]Dr. Deborah Mohan ALT [Catalytic activity/Vol] 17 U/L Normal 14-59 [facility] Comment on above: Performed By: #### Robert BARRIOS, CMP ####[facility] [address] [place] [address]Dr. Deborah Mohan Anion gap [Moles/Vol] 11.2 mmol/L Normal [facility] Comment on above: Performed By: #### Robert BARRIOS, CMP ####[facility] [address] [place] [address]Dr. Deborah Mohan AST [Catalytic activity/Vol] 14 U/L Critically low 15-37 [facility] Comment on above: Performed By: #### Robert BARRIOS, CMP ####[facility] [address] [place] [address]Dr. Deborah Mohan Bilirubin [Mass/Vol] 0.2 mg/dL Normal 0.2-1.0 [facility] Comment on above: Performed By: #### Robert BARRIOS, CMP ####[facility] [address] [place] [address]Dr. Deborah Mohan Calcium [Mass/Vol] 9.1 mg/dL Normal 8.5-10.1 [facility] Comment on above: Performed By: #### H STROPN, CMP ####[facility] [address] [place] [address]Dr. Deborah Mohan Chloride [Moles/Vol] 104 mmol/L Normal 98-107 [facility] Comment on above: Performed By: #### H STROPN, CMP ####[facility] [address] [place] [address]Dr. Deborah Mohan CO2 [Moles/Vol] 24.8 mmol/L Normal 21.0-32.0 [facility] Comment on above: Performed By: #### H STROPN, CMP ####[facility] [address] [place] [address]Dr. Deborah Mohan Creatinine [Mass/Vol] 1.21 mg/dL Critically high 0.55-1.02 [facility] Comment on above: Performed By: #### H STROPN, CMP ####[facility] [address] [place], [place] [address]Dr. Deborah Mohan EGFR-AF PAKISTANI 54 mL/min/1.73m2 Critically low >=60 [facility] Comment on above: Performed By: #### H STROPN, CMP ####[facility] [address] [place], [place] [address]Dr. Deborah Mohan EGFR-NON AF PAKISTANI 44 mL/min/1.73m2 Critically low >=60 [facility] Comment on above: Performed By: #### H STROPN, CMP ####[facility] [address] [place], [place] [address]Dr. Deborah Mohan Globulin (S) [Mass/Vol] 3.7 g/dL Normal [facility] Comment on above: Performed By: #### H STROPN, CMP ####[facility] [address] [place] [address]Dr. Deborah Mohan Glucose [Mass/Vol] 118 mg/dL Critically high 74-106 [facility] Comment on above: Performed By: #### H STROPN, CMP ####[facility] [address] [place], [place] [address]Dr. Deborah Mohan Potassium [Moles/Vol] 4.0 mmol/L Normal 3.5-5.1 [facility] Comment on above: Performed By: #### H DENIS, CMP ####[facility] [address] [place] [address]Dr. Deborah Mohan Protein [Mass/Vol] 6.9 g/dL Normal 6.4-8.2 [facility] Comment on above: Performed By: #### H DENIS, CMP ####[facility] [address] [place] [address]Dr. Deborah Mohan Sodium [Moles/Vol] 136 mmol/L Normal 136-145 [facility] Comment on above: Performed By: #### H DENIS, CMP ####[facility] [address] [place] [address]Dr. Deborah Mohan Urea nitrogen [Mass/Vol] 28.0 mg/dL Critically high 7.0-18.0 [facility] Comment on above: Performed By: #### H DENIS, CMP ####[facility] [address] [place], [place] [address]Dr. Deborah Mohan Urea nitrogen/Creatinine [Mass ratio] 23.1 mg/mg Normal [facility] Comment on above: Performed By: #### H DENIS, CMP ####[facility] [address] [place], [place] [address]Dr. Deborah Mohan TROPONIN, HIGH SENSITIVITYon 04-07-2022 HSTROP 5.9 pg/mL Normal 4.0-51.3 [facility] Comment on above: Result Comment: CUT- OFF POINTS HAVE BEEN ESTABLISHED BASED ON THE FOURTH UNIVERSAL DEFINITIONS OF MYOCARDIAL INFARCTION. THE UPPER REFERENCE LIMIT (URL) OF TROPONIN, DEFINED THE 99TH PERCENTILE OF cTnI DISTRIBUTION IN A REFERENCE POPULATION, HAS BEEN CONFIRMED THE DECISION THRESHOLD FOR OR DIAGNOSIS. Performed By: #### H DENIS, CMP ####[facility] [address] [place], [place] [address]Dr. Deborah Mohan XR CHEST 1 Von 04-07-2022 [...] ANDERSON ALMANZAR Date: 2022-04-07 03:11 Normal [facility] HEMOGLOBINon 03-12-2022 Hemoglobin (Bld) [Mass/Vol] 9.2 g/dL Critically low 12.0-16.0 [facility] Comment on above: Performed By: #### A NARF #### [facility] [address] [place] [address] Dr. Deborah Mohan ANTI NEUTROPHIL CYTOPLASMIC AB (ANCA) PRon 03-09-2022 Anti-MPO Antibodies <0.2 Normal 0.0-0.9 [facility] Comment on above: Result Comment: Perf ormed at: BN Performed By: #### B CONCRETE STONE FABRICATOR, HSTROPN, CMP #### [facility] [address] [place] [address] Dr. Deborah Mohan Anti-PR3 Antibodies <0.2 Normal 0.0-0.[address] [facility] Comment on above: Result Comment: Perf ormed at: BN Performed By: #### B CONCRETE STONE FABRICATOR, HSTROPN, CMP #### [facility] [address] [place] [address] Dr. Deborah Mohan Atypical pANCA 1:160 Critically high Neg:<1:20 [facility] Comment on above: Result Comment: The atypical pANCA pattern has been observed in a significant percentage of patients with ulcerative colitis, primary sclerosing cholangitis and autoimmune hepatitis. Performed at: CB Performed By: #### B CONCRETE STONE FABRICATOR, HSTROPN, CMP #### [facility] [address] [place] [address] Dr. Deborah Mohan Cytoplasmic (C-ANCA) <1:20 Normal Neg:<1:20 [facility] Comment on above: Result Comment: Perf ormed at: CB Performed By: #### B PHILLIP JONES CMP #### [facility] [address] [place] [address] Dr. Deborah Mohan Perinuclear (P-ANCA) <1:20 Normal Neg:<1:20 [facility] Comment on above: Result Comment: The presence of positive fluorescence exhibiting P-ANCA or C-ANCA patterns alone is not specific for the diagnosis of Marlin's Granulomatosis (WG) or microscopic polyangiitis. Decisions about treatment should not be based solely on ANCA IFA results. The International ANCA [employer] Consensus recommends follow up testing of positive sera with both MS-3 and MPO-ANCA enzyme immunoassays. As many as 5% serum samples are positive only by EIA. Ref. AM J Clin Pathol 1999;111:507-513. Performed at: CB Performed By: #### B PHILLIP JONES CMP #### [facility] [address] [place] [address] Dr. Deborah Mohan ANTISCLERODERMA ABon 022 Antiscleroderma-70 Antibodies <0.2 Normal 0.0-0.9 [facility] Comment on above: Performed By: #### A NARF #### [facility] [address] [place] [address] CHEST WO CONon [...] incidental findings, as described above. Normal [facility] CYCLIC CITRULLINATED PEPTIDE AB (CCP)on 03-09-2022 CCP Antibodies IgG/IgA 6 units Normal 0-19 [facility] Comment on above: Result Comment: Nega tive <20 Weak positive 20 - 39 Moderate positive 40 - 59 Strong positive >59 Performed By: #### B CONCRETE STONE FABRICATOR, HSTROPN, CMP #### [facility] [address] [address] [address] Deborah Mohan IGG SUBCLASSES (1-4) AND TOT Kade 03-09-2022 IgG, Subclass 1 448 mg/dL Normal 248-810 [facility] Comment on above: Performed By: #### B CONCRETE STONE FABRICATOR, HSTROPN, CMP #### [facility] [address] [place] [address] [address] Deborah Mohan IgG, Subclass 2 253 mg/dL Normal 130-555 [facility] Comment on above: Performed By: #### B CONCRETE STONE FABRICATOR, HSTROPN, CMP #### [facility] [address] [place] [address] [address] Deborah Mohan IgG, Subclass 3 95 mg/dL Normal 15-102 [facility] Comment on above: Performed By: #### B CONCRETE STONE FABRICATOR, HSTROPN, CMP #### [facility] [address] [place] [address] [address] Deborah Mohan IgG, Subclass 4 10 mg/dL Normal 2-96 [facility] Comment on above: Performed By: #### B CONCRETE STONE FABRICATOR, HSTROPN, CMP #### [facility] [address] [place] [address] [address] Deborah Mohan Immunoglobulin G, Qn, Serum 658 mg/dL Normal 586-1602 [facility] Comment on above: Performed By: #### B CONCRETE STONE FABRICATOR, HSTROPN, CMP #### [facility] [address] [place] [address] [address] Deborah Mohan IMMUNOGLOBULIN E, TOTALon Immunoglobulin E, Total 5 IU/mL Critically low 6-495 [facility] Comment on above: Performed By: #### I GETOT ####[facility] [address] [place] [address]Dr. Deborah Mohan MICHELL EIA W/REFLEX 5 BIOMARKER Son 03-08-2022 MICHELL Direct Negative Normal Negative [facility] Comment on above: Performed By: #### A NARF #### [facility] Laboratory [address] [address] [address] Deborah Mohan ANGIOTENSION-CONVERTING ENZY ME (FRANCESCO)on 03-08-2022 FRANCESCO 32 U/L Normal 14-82 [facility] Comment on above: Performed By: #### A NGIOC ####[facility] [address] [id number] Mohan ANTIGLOMERULAR BASEMENT MEMB ROMMEL ABSon 03-08-2022 Anti-GBM Antibodies <0.2 Normal 0.0-0.9 [facility] Comment on above: Performed By: #### A GBM #### [facility] [address] [address] [address] Deborah Mohan IMMUNOGLOBULIN IGA QUANTITIA VEon 03-06-2022 Immunoglobulin A, Qn, Serum 229 mg/dL Normal 87-352 [facility] Comment on above: Performed By: #### A NARF #### [facility] [address] [address] [address] Deborah Mohan IMMUNOGLOBULIN IGM QUANTITAT IVEon 03-06-2022 Immunoglobulin M, Qn, Serum 83 mg/dL Normal 26-217 [facility] Comment on above: Performed By: #### B CONCRETE STONE FABRICATOR, HSTROPN, CMP #### [facility] [address] [address] [address] Deborah Mohan RHEUMATOID FACTORon 03-06-20 22 RA Latex Turbid. 10.9 IU/mL Normal <14.0 [facility] Comment on above: Performed By: #### R F ####[facility] [address] [address]DrAnkur Mohan CREATININEon 03-05-2022 Creatinine [Mass/Vol] 1.38 mg/dL Critically high 0.55-1.02 [facility] Comment on above: Performed By: #### C MELVINA ####[facility] [address] [id number] Mohan EGFR-AF PAKISTANI 46 mL/min/1.73m2 Critically low >=60 [facility] Comment on above: Performed By: #### C MELVINA ####[facility] [address] [place], [place] [address]InDr. Deborah Mohan EGFR-NON AF PAKISTANI 38 mL/min/1.73m2 Critically low >=60 [facility] Comment on above: Performed By: #### C MELVINA ####[facility] [address] [place], [place] [address]LhDr. Deborah Mohan SED RATE WESTERGRENon 2021 SED RATE 92 mm/hr Critically high <=30 [facility] Comment on above: Performed By: #### B CONCRETE STONE FABRICATOR, HSTROPN, CMP #### [facility] [address] [place], [place] [address] Dr. Deborah Mohan XR DEXA BONE DENSITYon [...] by: ROBERT CONDON Date: 2022-03-05 16:56 Normal [facility] XR CHEST 1 Von 03-01-2022 XR CHEST [...] by: ROBERT NOVAK Date: 2022-02-28 22:27 Normal [facility] XR KNEE LUANA 4V or >on 2021 [...] RAUDEL ESTRADA Date: 2022-01-29 11:09 Normal [facility] CBC AUTO DIFFon 11-29-2021 BASO # 0.1 103/ul Normal 0.0-0.1 [facility] Comment on above: Performed By: #### C BC ####[facility] [address] [address]Dr. Ann-Mariemich Mohan Basophils/100 WBC (Bld) 0.8 % Normal 0.2-2.0 [facility] Comment on above: Performed By: #### C BC ####[facility] [address] [address]Dr. Deborah Marques EO # 0.3 103/ul Normal 0.0-0.7 [facility] Comment on above: Performed By: #### C BC ####[facility] [address] [address]Dr. Ann-Mariemich Mohan Eosinophils/100 WBC (Bld) 2.2 % Normal 0.9-7.0 [facility] Comment on above: Performed By: #### C BC ####[facility] [address] [address]Dr. Ann-Mariemich Mohan Erythrocyte distribution width (RBC) [Ratio] 21.2 % Critically high 11.0-15.0 [facility] Comment on above: Performed By: #### C BC ####[facility] [address] [address]Dr. Deborah Mohan Hematocrit (Bld) [Volume fraction] 33.2 % Critically low 36.0-48.0 [facility] Comment on above: Performed By: #### C BC ####[facility] [address] [id number]. Deborah Mohan Hemoglobin (Bld) [Mass/Vol] 10.3 g/dL Critically low 12.0-16.0 [facility] Comment on above: Performed By: #### C BC ####[facility] [address] [address]Dr. Deborah Mohan IG # 0.11 10e3/ul Critically high 0.00-0.[address] [facility] Comment on above: Performed By: #### C BC ####[facility] [address] [address]Dr. Deborah Mohan IG % 0.9 % Critically high 0.0-0.5 [facility] Comment on above: Performed By: #### C BC ####[facility] [address] [place], [place] [address]Dr. Deborah Mohan LYMPH # 2.2 103/ul Normal 1.2-3.8 [facility] Comment on above: Performed By: #### C BC ####[facility] [address] [address]Dr. Deborah Mohan Lymphocytes/100 WBC (Bld) 18.5 % Critically low 20.5-60.0 [facility] Comment on above: Performed By: #### C BC ####[facility] [address] [address]Dr. Deborah Mohan MANUAL DIFF REQ NO Normal [facility] Comment on above: Performed By: #### C BC ####[facility] [address] [place], [place] [address]Dr. Deborah Mohan MCH (RBC) [Entitic mass] 26.3 pg Critically low 26.7-34.0 [facility] Comment on above: Performed By: #### C BC ####[facility] [address] [place], [place] [address]Dr. Deborah Mohan MCHC (RBC) [Mass/Vol] 31.0 g/dL Normal 29.9-35.2 [facility] Comment on above: Performed By: #### C BC ####[facility] [address] [id number]. Deborah Mohan MCV (RBC) [Entitic vol] 84.9 fL Normal 81.0-99.0 [facility] Comment on above: Performed By: #### C BC ####[facility] [address] [address]Dr. Deborah Mohan MONO # 0.6 103/ul Normal 0.3-0.8 [facility] Comment on above: Performed By: #### C BC ####[facility] [address] [place], [place] [address]Dr. Deborah Mohan Monocytes/100 WBC (Bld) 5.3 % Normal 1.7-12.0 [facility] Comment on above: Performed By: #### C BC ####[facility] [address] [place], [place] [address]Dr. Deborah Mohan NEUT # 8.4 103/ul Critically high 1.4-6.5 [facility] Comment on above: Performed By: #### C BC ####[facility] [address] [place], [place] [address]Dr. Deborah Mohan Neutrophils/100 WBC (Bld) 72.3 % Normal 43.0-75.0 [facility] Comment on above: Performed By: #### C BC ####[facility] [address] [place], [place] [address]Dr. Deborah Mohan Platelet mean volume (Bld) [Entitic vol] 10.1 fL Normal 9.5-13.5 [facility] Comment on above: Performed By: #### C BC ####[facility] [address] [address]Dr. Deborah Mohan PLT 351 103/ul Normal 150-450 [facility] Comment on above: Performed By: #### C BC ####[facility] [address] [address]Dr. Deborah Mohan RBC 3.91 106/ul Critically low 4.20-5.40 [facility] Comment on above: Performed By: #### C BC ####[facility] [address] [place], [place] [address]Ho. Deborah Mohan WBC 11.6 103/ul Critically high 4.0-11.0 [facility] Comment on above: Performed By: #### C ####[facility] [address] [place], [place] [address]Tr. Deborah Mohan CTA CHEST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
== END 2024-04-10 14:10 | disposition home or self-care (01) ==
PROVIDERS: PCP Nurse Practitioner Family; Visit Provider Anesthesiology Pain Medicine
DX: M70.62 Trochanteric bursitis, left hip (principal); M70.61 Trochanteric bursitis, right hip
CPT/HCPCS: 20610; J0665; J3301

== ENCOUNTER 2024-04-12 15:13 | Outpatient (OUT) | payer MEDICARE, SELFPAY | END 2024-04-12 15:14 | disposition home or self-care (01) | LOC: PST 15:13 | PROVIDERS: PCP Nurse Practitioner Family; Visit Provider Surgery | DX: Z01.818 Encounter for other preprocedural examination (principal); Z12.11 Encounter for screening for malignant neoplasm of colon ==

== ENCOUNTER 2024-04-25 10:16 | Day surgery (SDC) | payer MEDICARE, SELFPAY ==
--- NOTE | 2024-04-25 | OP_ITS ---
OPERATION DATE: 04/25/2024 PREOPERATIVE DIAGNOSIS: Colorectal screening. POSTOPERATIVE DIAGNOSIS: Normal colonoscopy to cecum. PROCEDURE: Colonoscopy to cecum. SURGEON: Ash Parson M.D. ANESTHESIA: Monitored anesthesia care. ESTIMATED BLOOD LOSS: Zero. INDICATIONS AND CONSENT: Patient is a 68-year-old female who presents for colorectal screening. Indications, risks, benefits, alternatives of proceeding with colonoscopy were explained extensively to the patient, including the risks of bleeding, colon perforation or anesthetic complications. All of her questions were answered. Informed consent was obtained. PROCEDURE: Patient brought to the operating room, placed in the left lateral decubitus position. Monitored anesthesia care was provided. Rectal exam was performed which showed no masses or blood. The scope was inserted into the anal canal. Under direct visualization was advanced. It was advanced to the cecum where cecal markings were clearly identified. Upon withdrawal of the scope, mucosal surfaces were carefully examined. There were no mass lesions or polyps. No inflammatory changes or ulcerations. No significant diverticulosis. The scope was retroflexed in the anal canal. There were some prominent rectal veins. No significant hemorrhoidal disease. Scope was then withdrawn. Patient tolerated procedure well, was sent to recovery room in good condition. She should not require further screening colonoscopies. CC: Su Milton, TAYLOR GAMA
--- OUTSIDE RECORDS SUMMARY | 2024-04-25 10:24 | XMS_ITS | CCD ---
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 [place] [address] Dr. Deborah Mohan Atypical pANCA 1:160 Critically high Neg:<1:20 [facility] Comment on above: Result Comment: The atypical pANCA pattern has been observed in a significant percentage of patients with ulcerative colitis, primary sclerosing cholangitis and autoimmune hepatitis. Performed at: CB Performed By: #### B RISK COMPLIANCE MANAGER, HSTROPN, CMP #### [facility] [address] [place] [address] Dr. Deborah Mohan Cytoplasmic (C-ANCA) <1:20 Normal Neg:<1:20 [facility] Comment on above: Result Comment: Perf ormed at: CB Performed By: #### B PHILLIP JONES CMP #### [facility] [address] [place] [address] Dr. Deborah Mohan Perinuclear (P-ANCA) <1:20 Normal Neg:<1:20 [facility] Comment on above: Result Comment: The presence of positive fluorescence exhibiting P-ANCA or C-ANCA patterns alone is not specific for the diagnosis of Marlin's Granulomatosis (WG) or microscopic polyangiitis. Decisions about treatment should not be based solely on ANCA IFA results. The International ANCA Group Consensus recommends follow up testing of positive sera with both VA-3 and MPO-ANCA enzyme immunoassays. As many as 5% serum samples are positive only by EIA. Ref. AM J Clin Pathol 1999;111:507-513. Performed at: CB Performed By: #### B PHILLIP JONES CMP #### [facility] [address] [place] [address] Dr. Deborah Mohan ANTISCLERODERMA ABon 022 Antiscleroderma-70 Antibodies <0.2 Normal 0.0-0.9 [facility] Comment on above: Performed By: #### A NARF #### [facility] [address] [place] [address] CHEST WO CONon [...] incidental findings, as described above. Normal [facility] CYCLIC CITRULLINATED PEPTIDE AB (CCP)on 03-09-2022 CCP Antibodies IgG/IgA 6 units Normal 0-19 [facility] Comment on above: Result Comment: Nega tive <20 Weak positive 20 - 39 Moderate positive 40 - 59 Strong positive >59 Performed By: #### B RISK COMPLIANCE MANAGER, HSTROPN, CMP #### [facility] [address] [address] [address] Deborah Mohan IGG SUBCLASSES (1-4) AND TOT Kade 03-09-2022 IgG, Subclass 1 448 mg/dL Normal 248-810 [facility] Comment on above: Performed By: #### B RISK COMPLIANCE MANAGER, HSTROPN, CMP #### [facility] [address] [address] [address] Deborah Mohan IgG, Subclass 2 253 mg/dL Normal 130-555 [facility] Comment on above: Performed By: #### B RISK COMPLIANCE MANAGER, HSTROPN, CMP #### [facility] [address] [address] [address] Deborah Mohan IgG, Subclass 3 95 mg/dL Normal 15-102 [facility] Comment on above: Performed By: #### B RISK COMPLIANCE MANAGER, HSTROPN, CMP #### [facility] [address] [address] [address] Deborah Mohan IgG, Subclass 4 10 mg/dL Normal 2-96 [facility] Comment on above: Performed By: #### B RISK COMPLIANCE MANAGER, HSTROPN, CMP #### [facility] [address] [address] [address] Deborah Mohan Immunoglobulin G, Qn, Serum 658 mg/dL Normal 586-1602 [facility] Comment on above: Performed By: #### B RISK COMPLIANCE MANAGER, HSTROPN, CMP #### [facility] [address] [address] [address] Deborah Mohan IMMUNOGLOBULIN E, TOTALon Immunoglobulin E, Total 5 IU/mL Critically low 6-495 [facility] Comment on above: Performed By: #### I GETOT ####[facility] [address] [place] [address]Dr. Deborah Mohan MICHELL EIA W/REFLEX 5 BIOMARKER Son 03-08-2022 MICHELL Direct Negative Normal Negative [facility] Comment on above: Performed By: #### A NARF #### [facility] [address] [address] [address] Deborah Mohan ANGIOTENSION-CONVERTING ENZY ME (FRANCESCO)on 03-08-2022 FRANCESCO 32 U/L Normal 14-82 [facility] Comment on above: Performed By: #### A NGIOC ####[facility] [address] [place] [id number] Mohan ANTIGLOMERULAR BASEMENT MEMB ROMMEL ABSon 03-08-2022 Anti-GBM Antibodies <0.2 Normal 0.0-0.9 [facility] Comment on above: Performed By: #### A GBM #### [facility] [address] [address] [address] Deborah Mohan IMMUNOGLOBULIN IGA QUANTITIA VEon 03-06-2022 Immunoglobulin A, Qn, Serum 229 mg/dL Normal 87-352 [facility] Comment on above: Performed By: #### A NARF #### [facility] [address] [address] [address] Deborah Mohan IMMUNOGLOBULIN IGM QUANTITAT IVEon 03-06-2022 Immunoglobulin M, Qn, Serum 83 mg/dL Normal 26-217 [facility] Comment on above: Performed By: #### B RISK COMPLIANCE MANAGER, HSTROPN, CMP #### [facility] [address] [address] [address] Deborah Mohan RHEUMATOID FACTORon 03-06-20 22 RA Latex Turbid. 10.9 IU/mL Normal <14.0 [facility] Comment on above: Performed By: #### R F ####[facility] [address] [place] [address]DrAnkur Mohan CREATININEon 03-05-2022 Creatinine [Mass/Vol] 1.38 mg/dL Critically high 0.55-1.02 [facility] Comment on above: Performed By: #### C MELVINA ####[facility] [address] [place] [address]DrAnkur Mohan EGFR-AF ALBANIAN 46 mL/min/1.73m2 Critically low >=60 [facility] Comment on above: Performed By: #### C MELVINA ####[facility] [address] [place], [place] [address]Dr. Deborah Mohan EGFR-NON AF ALBANIAN 38 mL/min/1.73m2 Critically low >=60 [facility] Comment on above: Performed By: #### C MELVINA ####[facility] [address] [place], [place] [address]IhDr. Deborah Mohan SED RATE WESTERGRENon 2021 SED RATE 92 mm/hr Critically high <=30 [facility] Comment on above: Performed By: #### B RISK COMPLIANCE MANAGER, HSTROPN, CMP #### [facility] [address] [place], [place] [address] Dr. Deborah Mohan XR DEXA BONE DENSITYon [...] by: ROBERT CONDON Date: 2022-03-05 16:56 Normal [facility] XR CHEST 1 Von 03-01-2022 XR [...] by: ROBERT NOVAK Date: 2022-02-28 22:27 Normal [facility] XR KNEE LUANA 4V or >on [...] RAUDEL ESTRADA Date: 2022-01-29 11:09 Normal [facility] CBC AUTO DIFFon 11-29-2021 BASO # 0.1 103/ul Normal 0.0-0.1 [facility] Comment on above: Performed By: #### C BC ####[facility] [address]cop[address] [place] [address]Dr. Ann-Mariemich Mohan Basophils/100 WBC (Bld) 0.8 % Normal 0.2-2.0 [facility] Comment on above: Performed By: #### C BC ####[facility] [address] [place] [address]Dr. Deborah Marques EO # 0.3 103/ul Normal 0.0-0.7 [facility] Comment on above: Performed By: #### C BC ####[facility] [address]ft[address] [place] [address]Dr. Ann-Mariemich Mohan Eosinophils/100 WBC (Bld) 2.2 % Normal 0.9-7.0 [facility] Comment on above: Performed By: #### C BC ####[facility] [address] [place] [address]Dr. Ann-Mariemich Mohan Erythrocyte distribution width (RBC) [Ratio] 21.2 % Critically high 11.0-15.0 [facility] Comment on above: Performed By: #### C BC ####[facility] Xpt[address]ti[address] [place] [address]Dr. Deborah Mohan Hematocrit (Bld) [Volume fraction] 33.2 % Critically low 36.0-48.0 [facility] Comment on above: Performed By: #### C BC ####[facility] [address] [place] [id number]. Deborah Mohan Hemoglobin (Bld) [Mass/Vol] 10.3 g/dL Critically low 12.0-16.0 [facility] Comment on above: Performed By: #### C BC ####[facility] [address] [place] [address]Dr. Deborah Mohan IG # 0.11 10e3/ul Critically high 0.00-0.03 [facility] Comment on above: Performed By: #### C BC ####[facility] [address] [place] [address]Dr. Deborah Mohan IG % 0.9 % Critically high 0.0-0.5 [facility] Comment on above: Performed By: #### C BC ####[facility] [address] [place], [place] [address]Dr. Deborah Mohan LYMPH # 2.2 103/ul Normal 1.2-3.8 [facility] Comment on above: Performed By: #### C BC ####[facility] [address]qjntp[address] [place] [address]Dr. Deborah Mohan Lymphocytes/100 WBC (Bld) 18.5 % Critically low 20.5-60.0 [facility] Comment on above: Performed By: #### C BC ####[facility] Fr[address]ocvlcok[address] [place] [address]Dr. Deborah Mohan MANUAL DIFF REQ NO Normal [facility] Comment on above: Performed By: #### C BC ####[facility] [address] [place], [place] [address]Dr. Deborah Mohan MCH (RBC) [Entitic mass] 26.3 pg Critically low 26.7-34.0 [facility] Comment on above: Performed By: #### C BC ####[facility] [address] [place], [place] [address]Dr. Deborah Mohan MCHC (RBC) [Mass/Vol] 31.0 g/dL Normal 29.9-35.2 [facility] Comment on above: Performed By: #### C BC ####[facility] [address]mf[address] [place] [id number]. Deborah Mohan MCV (RBC) [Entitic vol] 84.9 fL Normal 81.0-99.0 [facility] Comment on above: Performed By: #### C BC ####[facility] [address] [place] [id number]. Deborah Mohan MONO # 0.6 103/ul Normal 0.3-0.8 [facility] Comment on above: Performed By: #### C BC ####[facility] X[address] [place], [place] [address]Dr. Deborah Mohan Monocytes/100 WBC (Bld) 5.3 % Normal 1.7-12.0 [facility] Comment on above: Performed By: #### C BC ####[facility] Ycf[address] [place], [place] [address]Dr. Deborah Mohan NEUT # 8.4 103/ul Critically high 1.4-6.5 [facility] Comment on above: Performed By: #### C BC ####[facility] [address] [place], [place] [address]Dr. Deborah Mohan Neutrophils/100 WBC (Bld) 72.3 % Normal 43.0-75.0 [facility] Comment on above: Performed By: #### C BC ####[facility] [address] [place], [place] [address]Dr. Deborah Mohan Platelet mean volume (Bld) [Entitic vol] 10.1 fL Normal 9.5-13.5 [facility] Comment on above: Performed By: #### C BC ####[facility] [address]iek[address] [place] [id number]. Deborah Mohan PLT 351 103/ul Normal 150-450 [facility] Comment on above: Performed By: #### C BC ####[facility] [address] [place] [id number]. Deborah Mohan RBC 3.91 106/ul Critically low 4.20-5.40 [facility] Comment on above: Performed By: #### C BC ####[facility] [address] [place], [place] [address]Mw. Deborah Mohan WBC 11.6 103/ul Critically high 4.0-11.0 [facility] Comment on above: Performed By: #### C ####[facility] [address]yeeg[address] [place], [place] [address]Ff. Deborah Mohan CTA CHEST WO W CONon [...] 2. Bilateral peripheral fibrosis and/or scarring with nkqv-dv-mebmcgwd groundglass densities. The groundglass densities are slightly decreased compared to the prior scan. 3. Old calcified granulomas in the chest and abdomen. 4. Large hiatal hernia. 5. Moderate diffuse osteopenia. Electronically authenticated by: BERNARDO DENNY Date: 2021-11-29 20:31 Normal [facility] D-DIMERon 11-29-2021 D-DIMER 1.14 mg/L FEU Critically high <=0.59 [facility] Comment on above: Performed By: #### A NARF #### [facility] [address] [place] [address] Dr. Deborah Mohan D-DIMER COMMENTS SEE BELOW Normal [facility] Comment on above: Result Comment: Incr eases [...] hospitalization. Performed By: #### A NARF #### [facility] [address] [place] [address] Dr. Deborah Mohan PROF CHEM 8 (BAS METB)on Anion gap [Moles/Vol] 11.7 mmol/L Normal [facility] Comment on above: Performed By: #### B KYLEE, HSTROPN #### [facility] [address] [place] [address] Dr. Deborah Mohan Calcium [Mass/Vol] 8.7 mg/dL Normal 8.5-10.1 [facility] Comment on above: Performed By: #### B KYLEE, HSTROPN #### [facility] [address] [place] [address] Dr. Deborah Mohan Chloride [Moles/Vol] 107 mmol/L Normal 98-107 [facility] Comment on above: Performed By: #### B KYLEE, HSTROPN #### [facility] [address] [place] [address] Dr. Deborah Mohan CO2 [Moles/Vol] 25.3 mmol/L Normal 21.0-32.0 [facility] Comment on above: Performed By: #### B KYLEE HSTROPN #### [facility] [address] [address] [address] Deborah Mohan Creatinine [Mass/Vol] 0.98 mg/dL Normal 0.55-1.02 [facility] Comment on above: Performed By: #### B KYLEE HSTROPN #### [facility] [address] [address] [address] Deborah Mohan EGFR-AF ALBANIAN >60 Normal >=60 [facility] Comment on above: Performed By: #### B KYLEE HSTROPN #### [facility] [address] [place] [address] Dr. Deborah Mohan EGFR-NON AF ALBANIAN 56 mL/min/1.73m2 Critically low >=60 [facility] Comment on above: Performed By: #### B KYLEE HSTROPN #### [facility] [address] [address] [address] Deborah Mohan Glucose [Mass/Vol] 105 mg/dL Normal 74-106 [facility] Comment on above: Performed By: #### B KYLEE HSTROPN #### [facility] [address] [address] [address] Deborah Mohan Potassium [Moles/Vol] 4.0 mmol/L Normal 3.5-5.1 [facility] Comment on above: Performed By: #### B KYLEE HSTROPN #### [facility] [address] [place] [address] Dr. Deborah Mohan Sodium [Moles/Vol] 140 mmol/L Normal 136-145 [facility] Comment on above: Performed By: #### B KYLEE, HSTROPN #### [facility] [address] [place] [address] Dr. Deborah Mohan Urea nitrogen [Mass/Vol] 21.0 mg/dL Critically high 7.0-18.0 [facility] Comment on above: Performed By: #### B KYLEE, HSTROPN #### [facility] [address] [place], [place] [address] Dr. Deborah Mohan Urea nitrogen/Creatinine [Mass ratio] 21.4 mg/mg Normal [facility] Comment on above: Performed By: #### B KYLEE, HSTROPN #### [facility] [address] [place], [place] [address] Dr. Deborah Mohan TROPONIN, HIGH SENSITIVITYon 11-29-2021 HSTROP 4.5 pg/mL Normal 4.0-51.3 [facility] Comment on above: Result Comment: CUT- OFF POINTS HAVE BEEN ESTABLISHED BASED ON THE FOURTH UNIVERSAL DEFINITIONS OF MYOCARDIAL INFARCTION. THE UPPER REFERENCE LIMIT (URL) OF TROPONIN, DEFINED THE 99TH PERCENTILE OF cTnI DISTRIBUTION IN A REFERENCE POPULATION, HAS BEEN CONFIRMED THE DECISION THRESHOLD FOR [place] DIAGNOSIS. Performed By: #### H STROPN ####[facility] [address] [place], [place] [address]BfDr. Deborah Mohan HSTROP 6.0 pg/mL Normal 4.0-51.3 [facility] Comment on above: Result Comment: CUT- OFF POINTS HAVE BEEN ESTABLISHED BASED ON THE FOURTH UNIVERSAL DEFINITIONS OF MYOCARDIAL INFARCTION. THE UPPER REFERENCE LIMIT (URL) OF TROPONIN, DEFINED THE 99TH PERCENTILE OF cTnI DISTRIBUTION IN A REFERENCE POPULATION, HAS BEEN CONFIRMED THE DECISION THRESHOLD FOR UT DIAGNOSIS. Performed By: #### B KYLEE HSTROPN #### [facility] [address] [place], [place] [address] Dr. Deborah Mohan XR CHEST 1 Von [...] KANDY BARRY Date: 2021-11-29 19:20 Normal [facility] XR LSPINE W_OBLS AND FLEX_EX Ton [...] by: RAUDEL ESTRADA Date: 2021-11-12 07:56 Normal [facility] CALCIUMon 11-11-2021 Calcium [Mass/Vol] 9.0 mg/dL Normal 8.5-10.1 [facility] Comment on above: Performed By: #### A NARF #### [facility] [address] [address] [address] Deborah Mohan CREATININEon 11-11-2021 Creatinine [Mass/Vol] 1.47 mg/dL Critically high 0.55-1.02 [facility] Comment on above: Performed By: #### A NARF #### [facility] [address] [address] [address] Deborah Mohan EGFR-AF ALBANIAN 43 mL/min/1.73m2 Critically low >=60 [facility] Comment on above: Performed By: #### A NARF #### [facility] [address] [address] [address] Deborah Mohan EGFR-NON AF ALBANIAN 35 mL/min/1.73m2 Critically low >=60 [facility] Comment on above: Performed By: #### A NARF #### [facility] [address] [address] [address] Deborah Mohan Vital Signs Date Time Vital Sign Value Performing Clinician James johns 03-20-2024 14:57-0400 Blood Pressure Location Anderson SHASHA [facility] [place] 03-20-2024 14:57-0400 Diastolic blood pressure 82 mm[Hg] Anderson PULLIAM [facility] 03-20-2024 14:57-0400 Heart rate 70 /min Anderson VILLANUEVAL [facility] 03-20-2024 14:57-0400 Respiratory rate 16 /min Anderson VILLANUEVAL [facility] 03-20-2024 14:57-0400 Systolic blood pressure 126 mm[Hg] Anderson NILL [facility] Encounters Encounter Date Encounter Type Care Provider Facility Start: 03-20-2024 End: 03-20-2024 ambulatory Anderson PULLIAM Facility:[facility] Start: 03-20-2024 End: 03-20-2024 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 procedure [facility] Start: 02-10-2024 ambulatory Anderson PULLIAM Facility:[facility] Start: 11-28-2023 End: 11-28-2023 ambulatory [facility] Start: 10-18-2023 End: 10-18-2023 ambulatory [facility] Start: 08-01-2023 End: 08-02-2023 ambulatory Gabriella [...] Start: 05-08-2022 End: 05-08-2022 ambulatory Clarita Leigh Facility:[facility] Start: 05-08-2022 End: 05-08-2022 ambulatory 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 Work Phone: Start: 05-08-2022 End: 05-08-2022 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 procedure 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 Start: 04-08-2022 [...] 04-01-2018 Emergency department patient visit BRANDON RUSSELL [facility] Start: 12-11-2017 End: 12-11-2017 Emergency department patient visit ROBERT HURLEY Facility:[facility] Procedures Date Procedure Procedure Detail Performing Clinician Start: 05-08-2022 Plain X-ray of left wrist [employer]YCLE [employer]ASSEM[employer]ER-C Clarita Leigh Work Phone: Start: 05-08-2022 X-ray of left ankle BICYCLE SUBASSEM[employer]ER -C Clarita Leigh Work Phone: Start: 04-01-2018 [...] Date Payer Category Payer Unknown 2022 Medicare [id number] 2022 Self-pay 1959 Unknown [id number] 1955 Unknown [id number] 2.16.84 0.1.179548.3.579.2.593 1953 Unknown [id number] 2.16.84 0.1.963733.3.579.2.593 1953 Unknown [id number] 2.16.84 0.1.683293.3.579.2.593 1953 Unknown [id number] 2.16.84 0.1.144491.3.579.2.593 1953 Unknown [id number] 2.16.84 0.1.860205.3.579.2.593 1953 Unknown [id number] 2.16.84 0.1.822892.3.579.2.593 1953 Unknown [id number] 2.16.84 0.1.831512.3.579.2.593 1953 Unknown [id number] 2.16.84 0.1.685816.3.579.2.593 1953 Unknown [id number] 2.16.84 0.1.169339.3.579.2.593 1953 Unknown [id number] 2.16.84 0.1.395729.3.579.2.593 1953 Unknown [id number] 2.16.84 0.1.504497.3.579.2.593 1953 Unknown [id number] 2.16.84 0.1.520171.3.579.2.593 1953 Unknown [id number] 2.16.84 0.1.879989.3.579.2.593 1953 Unknown [id number] 2.16.84 0.1.588181.3.579.2.593 1953 Unknown [id number] 2.16.84 0.1.171323.3.579.2.593 1953 Unknown [id number] 2.16.84 0.1.467188.3.579.2.593 1953 Unknown [id number] 2.16.84 0.1.609944.3.579.2.593 1953 Unknown [id number] 2.16.84 0.1.084798.3.579.2.593 1953 Unknown [id number] 2.16.84 0.1.531045.3.579.2.593 1953 Unknown [id number] 2.16.84 0.1.286187.3.579.2.593 1953 Unknown [id number] 2.16.84 0.1.854452.3.579.2.593 1953 Unknown [id number] 2.16.84 0.1.629932.3.579.2.593 1953 Unknown [id number] 2.16. 840.1.643401.3.579.2.196 1955 Unknown [id number] 2.16.8 40.1.817582.3.579.2.727 Medicare [id number] Unknown [facility] [id number] Unknown [employer] [id number] Unknown [id number] 2.16.8 40.1.515188.3.579.2.531 Social History Date Type Detail Facility [facility] Work Phone: Start: 1955 Sex Assigned At Female [facility] Start: 03-20-2024 Tobacco smoking status Ex-smoker (fi nding) [facility] Tobacco smoking status Never [facility] Sex Assigned At Female [facility] Functional Status Date Assessment Result Facility 03-20-2024 Functional Status N/A [facility] Clinical Notes 11-05-2021 to 03-20-2024 Note Date [...] 1 tab(s), Or (more content not included)... [facility] Comment on above: Result Comment: Elec tronically Signed By: SHASHA GRANT, Anderson Quick\Date and Time Signed: 03/20/24 16:53 EDT 11-28-2023 Note [facility] Cardiology Clinic Note Chief Complaint: Patient here [...] Abnormal ECG, COPD (chronic obstructive pulmonary disease) ([facility]), and HTN (hypertension). Surgical History She has [...] mouth in the morning., Disp: , Rfl: qwcmrovwzc-psrkdwyfawilv-pciy 50-325-40 mg tablet, Take 1 tablet by [...] sinus rhythm Echocar (more content not included)... [facility] 10-18-2023 Note [facility] Cardiology Clinic Note Chief Complaint: New patient here to establish care. Ref from Dr. Townsend for abnormal EKG. She also wore 7 day Holter monitor, and says she did not work while wearing this. She works at [employer] and says it's very fast paced. States [...] Holter monitor She was admitted to the [facility] for migraine; a monitor revealed both [...] Plan: Routine labs (more content not included)... [facility] 07-08-2022 Note CONSULTATION PROCEDURE DATE: [...] in the clinic in three months. [facility] 06-24-2022 Note CONSULTATION CONSULTATION DATE: 06/24/2022 [...] at a time, as she works at [employer]. Current medications include Percocet 5/325 daily, diclofenac [...] pending approval for her knee injections. [facility] 04-08-2022 Note CONSULTATION CONSULTATION DATE: 04/08/2022 [...] three months' time unless otherwise indicated. [facility] 03-09-2022 Note CONSULTATION CONSULTATION DATE: 03/09/2022 [...] to proceed. CC: Polo Silva CNP [facility] 01-28-2022 Note CONSULTATION CONSULTATION DATE: 01/30/2022 [...] and re-evaluation of her bursa injection. [facility] 01-28-2022 Note CONSULTATION PROCEDURE DATE: 01/30/2022 [...] be followed up in the clinic. [facility] 11-12-2021 Note PROCEDURE: XR HIPS B [...] by: RAUDEL ESTRADA Date: 2021-11-12 07:50 [facility] 11-05-2021 Note CONSULTATION PROCEDURE DATE:11/05/2021 PREOPERATIVE [...] will be followed up in the office. [facility] Signed and Approved by: JOEL RAMON . 11/18/2021 16:24:00 [facility] 11-05-2021 Note CONSULTATION CONSULTATION DATE: 11/05/2021 [...] time, was working half a day at [employer] and since then has increased to full [...] in three months' time unless otherwise indicated. [facility] Signed and Approved by: JOEL RAMON . 11/18/2021 16:24:00 [facility] Evaluation + Plan note No data available for this section [facility] Evaluation note No assessment inform ation available [facility] Work Phone: Hospital Discharge instructions No data available for this section [facility] Progress note No data available for this section [facility] Summary Purpose Family History No Family History [...] and content) DATE CREATED AUTHOR 12/21/[address] [facility] DATE CREATED AUTHOR AUTHOR'S ORGANIZ ATION 05/01/2018 [facility] DATE CREATED AUTHOR AUTHOR'S ORGANIZ ATION 05/17/2022 [facility] DATE CREATED AUTHOR AUTHOR'S ORGANIZ ATION 10/06/2022 [facility] DATE CREATED AUTHOR AUTHOR'S ORGANIZ ATION 08/03/2023 [facility] DATE CREATED AUTHOR AUTHOR'S ORGANIZ ATION 11/28/2023 [facility] DATE CREATED AUTHOR AUTHOR'S ORGANIZ ATION 03/22/2024 [facility] Care Teams (unrecognized sec tion and content) [...] [facility] [employer] [facility] provides no warranty or guarantee of the accuracy or completeness of information in this document.
[2024-04-25 10:25] VITALS: BP 127/60; PULSE 83; TEMP 35.5; O2SAT 94; BMI 34.6
[2024-04-25] MEDS: 0.9 % SODIUM CHLORIDE 500 ML 50 ML IV (10:51)
[2024-04-25 13:16] VITALS: BP 126/64; PULSE 72; TEMP 36.3; O2SAT 100
[2024-04-25 13:31] VITALS: BP 128/61; PULSE 74; TEMP 36.3; O2SAT 98
[2024-04-25 13:46] VITALS: BP 124/64; PULSE 76; TEMP 36.3; O2SAT 98
== END 2024-04-25 13:46 | disposition home or self-care (01) ==
PROVIDERS: PCP Nurse Practitioner Family; Visit Provider Surgery
PROC: (CPT G0121; principal; 2024-04-25 11:45)
DX: Z12.11 Encounter for screening for malignant neoplasm of colon (principal); I10 Essential (primary) hypertension; J44.9 Chronic obstructive pulmonary disease, unspecified; E78.00 Pure hypercholesterolemia, unspecified; E03.9 Hypothyroidism, unspecified; I27.20 Pulmonary hypertension, unspecified; G47.33 Obstructive sleep apnea (adult) (pediatric); K21.9 Gastro-esophageal reflux disease without esophagitis; M54.16 Radiculopathy, lumbar region; Z87.891 Personal history of nicotine dependence; Z90.710 Acquired absence of both cervix and uterus; F31.9 Bipolar disorder, unspecified; I47.10 Supraventricular tachycardia, unspecified; Z98.51 Tubal ligation status
CPT/HCPCS: G0121; J2704

== ENCOUNTER 2024-05-03 08:45 | Outpatient (OUT) | payer MEDICARE, SELFPAY ==
--- NOTE | 2024-05-03 08:53 | XR_ITS ---
[address] [address] Patient Name: MELANIE TOMPKINS MRN: [id number] date: 1955 Sex: F Assigned Patient Location: [facility] Current Patient Location: [facility] Accession/Order Number: [id number] Exam Date: 05/03/2024 09:00 Report Date: 05/03/2024 09:21 At the request of: MARGUERITE MONIQUE Procedure: XR hip LUANA EXAMINATION: XR hip LUANA HISTORY: Bilateral Hip Pain COMPARISON: No relevant comparison available. FINDINGS: RIGHT FINDINGS: BONES: No acute fracture or dislocation. Minimal degenerative changes with marginal osteophyte formation SOFT TISSUES: Negative. No visible soft tissue swelling. OTHER: Negative. LEFT FINDINGS: BONES: No acute fracture or dislocation. Minimal degenerative changes with marginal osteophyte formation SOFT TISSUES: Negative. No visible soft tissue swelling. OTHER: Negative. XR/XR hip LUANA IMPRESSION: Minimal bilateral osteoarthritis Electronically authenticated by: ROBERT CONDON Date: 05/03/2024 09:21
--- OUTSIDE RECORDS SUMMARY | 2024-05-03 09:04 | XMS_ITS | CCD ---
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 CMP #### [facility] [address] [place] [address] Dr. Deborah Mohan Atypical pANCA 1:160 Critically high Neg:<1:20 [facility] Comment on above: Result Comment: The atypical pANCA pattern has been observed in a significant percentage of patients with ulcerative colitis, primary sclerosing cholangitis and autoimmune hepatitis. Performed at: CB Performed By: #### B TRIMMER PRESS CLIPPINGS, HSTROPN, CMP #### [facility] [address] [place] [address] Dr. Deborah Mohan Cytoplasmic (C-ANCA) <1:20 Normal Neg:<1:20 The [facility] Comment on above: Result Comment: Perf ormed at: CB Performed By: #### B PHILLIP JONES CMP #### [facility] Laboratory [address] [place] [address] Dr. Deborah Mohan Perinuclear (P-ANCA) <1:20 Normal Neg:<1:20 The [facility] Comment on above: Result Comment: The presence [...] By: #### B PHILLIP JONES CMP #### [facility] [address] [place] [address] Dr. Deborah Mohan ANTISCLERODERMA ABon 022 Antiscleroderma-70 Antibodies <0.2 Normal 0.0-0.9 [facility] Comment on above: Performed By: #### A NARF #### [facility] [address] [place] [address] CHEST WO CONon [...] incidental findings, as described above. Normal The [facility] CYCLIC CITRULLINATED PEPTIDE AB (CCP)on 03-09-2022 CCP Antibodies IgG/IgA 6 units Normal 0-19 The [facility] Comment on above: Result Comment: Nega tive <20 Weak positive 20 - 39 Moderate positive 40 - 59 Strong positive >59 Performed By: #### B TRIMMER PRESS CLIPPINGS, HSTROPN, CMP #### [facility] [address] [address] [address] Deborah Mohan IGG SUBCLASSES (1-4) AND TOT Kade 03-09-2022 IgG, Subclass 1 448 mg/dL Normal 248-810 The [facility] Comment on above: Performed By: #### B TRIMMER PRESS CLIPPINGS, HSTROPN, CMP #### [facility] [address] [address] [address] Deborah Mohan IgG, Subclass 2 253 mg/dL Normal 130-555 [facility] Comment on above: Performed By: #### B TRIMMER PRESS CLIPPINGS, HSTROPN, CMP #### [facility] [address] [address] [address] Deborah Moahn IgG, Subclass 3 95 mg/dL Normal 15-102 The [facility] Comment on above: Performed By: #### B TRIMMER PRESS CLIPPINGS, HSTROPN, CMP #### [facility] [address] [address] [address] Deborah Mohan IgG, Subclass 4 10 mg/dL Normal 2-96 The [facility] Comment on above: Performed By: #### B TRIMMER PRESS CLIPPINGS, HSTROPN, CMP #### [facility] [address] [address] [address] Deborah Mohan Immunoglobulin G, Qn, Serum 658 mg/dL Normal 586-1602 [facility] Comment on above: Performed By: #### B TRIMMER PRESS CLIPPINGS, HSTROPN, CMP #### [facility] [address] [address] [address] Deborah Mohan IMMUNOGLOBULIN E, TOTALon Immunoglobulin E, Total 5 IU/mL Critically low 6-495 The [facility] Comment on above: Performed By: #### I GETOT ####[facility] [address] [place] [address]Dr. Deborah Mohan MICHELL EIA W/REFLEX 5 BIOMARKER Son 03-08-2022 MICHELL Direct Negative Normal Negative [facility] Comment on above: Performed By: #### A NARF #### [facility] [address] [address] [address] Deobrah Mohan ANGIOTENSION-CONVERTING ENZY ME (FRANCESCO)on 03-08-2022 FRANCESCO 32 U/L Normal 14-82 [facility] Comment on above: Performed By: #### A NGIOC ####[facility] [address] [place] [id number] Mohan ANTIGLOMERULAR BASEMENT MEMB ROMMEL ABSon 03-08-2022 Anti-GBM Antibodies <0.2 Normal 0.0-0.9 [facility] Comment on above: Performed By: #### A GBM #### [facility] [address] [address] [address] Deborah Mohan IMMUNOGLOBULIN IGA QUANTITIA VEon 03-06-2022 Immunoglobulin A, Qn, Serum 229 mg/dL Normal 87-352 [facility] Comment on above: Performed By: #### A NARF #### [facility] [address] [address] [address] Deborah Mohan IMMUNOGLOBULIN IGM QUANTITAT IVEon 03-06-2022 Immunoglobulin M, Qn, Serum 83 mg/dL Normal 26-217 [facility] Comment on above: Performed By: #### B TRIMMER PRESS CLIPPINGS, HSTROPN, CMP #### [facility] [address] [address] [address] Deborah Mohan RHEUMATOID FACTORon 03-06-20 22 RA Latex Turbid. 10.9 IU/mL Normal <14.0 [facility] Comment on above: Performed By: #### R F ####[facility] [address] [place] [address]DrAnkur Mohan CREATININEon 03-05-2022 Creatinine [Mass/Vol] 1.38 mg/dL Critically high 0.55-1.02 [facility] Comment on above: Performed By: #### C MELVINA ####[facility] [address] [place] [id number] Mohan EGFR-AF [place]LANDER 46 mL/min/1.73m2 Critically low >=60 [facility] Comment on above: Performed By: #### C MELVINA ####[facility] [address], [place] [address]JpDr. Deborah Mohan EGFR-NON AF [place]LANDER 38 mL/min/1.73m2 Critically low >=60 The [facility] Comment on above: Performed By: #### C MELVINA ####[facility] [address], [place] [address]OpDr. Deborah Mohan SED RATE WESTERGRENon 2021 SED RATE 92 mm/hr Critically high <=30 The [facility] Comment on above: Performed By: #### B TRIMMER PRESS CLIPPINGS, HSTROPN, CMP #### [facility] [address], [place] [address] Dr. Deborah Mohan XR DEXA BONE DENSITYon [...] by: ROBERT CONDON Date: 2022-03-05 16:56 Normal [facility] XR CHEST 1 Von 03-01-2022 [...] by: ROBERT NOVAK Date: 2022-02-28 22:27 Normal [facility] XR KNEE LUANA 4V or [...] RAUDEL ESTRADA Date: 2022-01-29 11:09 Normal The [facility] CBC AUTO DIFFon 11-29-2021 BASO # 0.1 103/ul Normal 0.0-0.1 The [facility] Comment on above: Performed By: #### C BC ####[facility] [address] [place] [address]Dr. Ann-Mariemich Mohan Basophils/100 WBC (Bld) 0.8 % Normal 0.2-2.0 The [facility] Comment on above: Performed By: #### C BC ####[facility] [address] [place] [address]Dr. Deborah Marques EO # 0.3 103/ul Normal 0.0-0.7 The [facility] Comment on above: Performed By: #### C BC ####[facility] [address] [place] [address]Dr. Ann-Mariemich Mohan Eosinophils/100 WBC (Bld) 2.2 % Normal 0.9-7.0 The [facility] Comment on above: Performed By: #### C BC ####[facility] [address] [place] [address]Dr. Ann-Mariemich Mohan Erythrocyte distribution width (RBC) [Ratio] 21.2 % Critically high 11.0-15.0 The [facility] Comment on above: Performed By: #### C BC ####[facility] [address] [place] [address]Dr. Deborah Mohan Hematocrit (Bld) [Volume fraction] 33.2 % Critically low 36.0-48.0 The [facility] Comment on above: Performed By: #### C BC ####[facility] [address] [place] [id number]. Deborah Mohan Hemoglobin (Bld) [Mass/Vol] 10.3 g/dL Critically low 12.0-16.0 The [facility] Comment on above: Performed By: #### C BC ####[facility] [address] [place] [id number]. Deborah Mohan IG # 0.11 10e3/ul Critically high 0.00-0.03 [facility] Comment on above: Performed By: #### C BC ####[facility] [address] [place] [address]Dr. Deborah Mohan IG % 0.9 % Critically high 0.0-0.5 The [facility] Comment on above: Performed By: #### C BC ####[facility] [address] [place], [place] [address]Dr. Deborah Mohan LYMPH # 2.2 103/ul Normal 1.2-3.8 The [facility] Comment on above: Performed By: #### C BC ####[facility] [address] [place] [address]Dr. Deborah Mohan Lymphocytes/100 WBC (Bld) 18.5 % Critically low 20.5-60.0 [facility] Comment on above: Performed By: #### C BC ####[facility] [address] [place] [address]Dr. Deborah Mohan MANUAL DIFF REQ NO Normal The [facility] Comment on above: Performed By: #### C BC ####[facility] [address] [place], [place] [address]Dr. Deborah Mohan MCH (RBC) [Entitic mass] 26.3 pg Critically low 26.7-34.0 The [facility] Comment on above: Performed By: #### C BC ####[facility] [address] [place], [place] [address]Dr. Deborah Mohan MCHC (RBC) [Mass/Vol] 31.0 g/dL Normal 29.9-35.2 The [facility] Comment on above: Performed By: #### C BC ####[facility] [address] [place] [id number]. Deborah Mohan MCV (RBC) [Entitic vol] 84.9 fL Normal 81.0-99.0 The [facility] Comment on above: Performed By: #### C BC ####[facility] [address] [place] [id number]. Deborah Mohan MONO # 0.6 103/ul Normal 0.3-0.8 The [facility] Comment on above: Performed By: #### C BC ####[facility] [address] [place], [place] [id number]. Deborah Mohan Monocytes/100 WBC (Bld) 5.3 % Normal 1.7-12.0 The [facility] Comment on above: Performed By: #### C BC ####[facility] [address] [place], [place] [address]Dr. Deborah Mohna NEUT # 8.4 103/ul Critically high 1.4-6.5 The [facility] Comment on above: Performed By: #### C BC ####[facility] [address] [place], [place] [address]Dr. Deborah Mohan Neutrophils/100 WBC (Bld) 72.3 % Normal 43.0-75.0 The [facility] Comment on above: Performed By: #### C BC ####[facility] [address] [place], [place] [id number]. Deborah Mohan Platelet mean volume (Bld) [Entitic vol] 10.1 fL Normal 9.5-13.5 The [facility] Comment on above: Performed By: #### C BC ####[facility] [address] [place] [id number]. Deborah Mohan PLT 351 103/ul Normal 150-450 The [facility] Comment on above: Performed By: #### C BC ####[facility] [address] [place] [id number]. Deborah Mohan RBC 3.91 106/ul Critically low 4.20-5.40 The [facility] Comment on above: Performed By: #### C BC ####[facility] [address], [place] [address]Av. Deborah Mohan WBC 11.6 103/ul Critically high 4.0-11.0 The [facility] Comment on above: Performed By: #### C ####[facility] [address], [place] [address]Ir. Deborah Mohan CTA CHEST WO W CONon [...] 2. Bilateral peripheral fibrosis and/or scarring with vqvl-wv-jwxugyox groundglass densities. The groundglass densities are slightly decreased compared to the prior scan. 3. Old calcified granulomas in the chest and abdomen. 4. Large hiatal hernia. 5. Moderate diffuse osteopenia. Electronically authenticated by: BERNARDO DENNY Date: 2021-11-29 20:31 Normal The [facility] D-DIMERon 11-29-2021 D-DIMER 1.14 mg/L FEU Critically high <=0.59 [facility] Comment on above: Performed By: #### A NARF #### [facility] [address] [place] [address] Dr. Deborah oMhan D-DIMER COMMENTS SEE BELOW Normal The [facility] Comment on above: Result Comment: Incr [...] hospitalization. Performed By: #### A NARF #### [facility] [address] [place] [address] Dr. Deborah Mohan PROF CHEM 8 (BAS METB)on Anion gap [Moles/Vol] 11.7 mmol/L Normal [facility] Comment on above: Performed By: #### B KYLEE, HSTROPN #### [facility] [address] [place] [address] Dr. Deborah Mohan Calcium [Mass/Vol] 8.7 mg/dL Normal 8.5-10.1 [facility] Comment on above: Performed By: #### B KYLEE, HSTROPN #### [facility] [address] [place] [address] Dr. Deborah Mohan Chloride [Moles/Vol] 107 mmol/L Normal 98-107 [facility] Comment on above: Performed By: #### B KYLEE, HSTROPN #### [facility] [address] [place] [address] Dr. Deborah Mohan CO2 [Moles/Vol] 25.3 mmol/L Normal 21.0-32.0 [facility] Comment on above: Performed By: #### B KYLEE HSTROPN #### [facility] [address] [address] [address] Deborah Mohan Creatinine [Mass/Vol] 0.98 mg/dL Normal 0.55-1.02 [facility] Comment on above: Performed By: #### B KYLEE HSTROPN #### [facility] [address] [address] [address] Deborah Mohan EGFR-AF [place] ISLANDER >60 Normal >=60 The [facility] Comment on above: Performed By: #### B KYLEE HSTROPN #### [facility] [address] [place] [address] Dr. Deborah Mohan EGFR-NON AF [place] ISLANDER 56 mL/min/1.73m2 Critically low >=60 [facility] Comment on above: Performed By: #### B KYLEE HSTROPN #### [facility] [address] [address] [address] Deborah Mohan Glucose [Mass/Vol] 105 mg/dL Normal 74-106 [facility] Comment on above: Performed By: #### B KYLEE HSTROPN #### [facility] [address] [address] [address] Deborah Mohan Potassium [Moles/Vol] 4.0 mmol/L Normal 3.5-5.1 [facility] Comment on above: Performed By: #### B KYLEE HSTROPN #### [facility] [address] [place] [address] Dr. Deborah Mohan Sodium [Moles/Vol] 140 mmol/L Normal 136-145 [facility] Comment on above: Performed By: #### B KYLEE, HSTROPN #### [facility] [address] [place] [address] Dr. Deborah Mohan Urea nitrogen [Mass/Vol] 21.0 mg/dL Critically high 7.0-18.0 [facility] Comment on above: Performed By: #### B KYLEE, HSTROPN #### [facility] [address], [place] [address] Dr. Deborah Mohan Urea nitrogen/Creatinine [Mass ratio] 21.4 mg/mg Normal [facility] Comment on above: Performed By: #### B KYLEE, HSTROPN #### [facility] [address], [place] [address] Dr. Deborah Mohan TROPONIN, HIGH SENSITIVITYon 11-29-2021 HSTROP 4.5 pg/mL Normal 4.0-51.3 [facility] Comment on above: Result Comment: CUT- OFF POINTS HAVE BEEN ESTABLISHED BASED ON THE FOURTH UNIVERSAL DEFINITIONS OF MYOCARDIAL INFARCTION. THE UPPER REFERENCE LIMIT (URL) OF TROPONIN, DEFINED THE 99TH PERCENTILE OF cTnI DISTRIBUTION IN A REFERENCE POPULATION, HAS BEEN CONFIRMED THE DECISION THRESHOLD FOR MS DIAGNOSIS. Performed By: #### H STROPN ####[facility] [address], [place] [address]EsDr. Deborah Mohan HSTROP 6.0 pg/mL Normal 4.0-51.3 [facility] Comment on above: Result Comment: CUT- OFF POINTS HAVE BEEN ESTABLISHED BASED ON THE FOURTH UNIVERSAL DEFINITIONS OF MYOCARDIAL INFARCTION. THE UPPER REFERENCE LIMIT (URL) OF TROPONIN, DEFINED THE 99TH PERCENTILE OF cTnI DISTRIBUTION IN A REFERENCE POPULATION, HAS BEEN CONFIRMED THE DECISION THRESHOLD FOR MS DIAGNOSIS. Performed By: #### B KYLEE HSTROPN #### [facility] [address], [place] [address] Dr. Deborah Mohan XR CHEST 1 Von [...] KANDY BARRY Date: 2021-11-29 19:20 Normal [facility] XR LSPINE W_OBLS AND FLEX_EX Ton 11-12-2021 [...] by: RAUDEL ESTRADA Date: 2021-11-12 07:56 Normal [facility] CALCIUMon 11-11-2021 Calcium [Mass/Vol] 9.0 mg/dL Normal 8.5-10.1 [facility] Comment on above: Performed By: #### A NARF #### [facility] [address] [address] [address] Deborah Mohan CREATININEon 11-11-2021 Creatinine [Mass/Vol] 1.47 mg/dL Critically high 0.55-1.02 [facility] Comment on above: Performed By: #### A NARF #### [facility] [address] [address] [address] Deborah Mohan EGFR-AF [place] 43 mL/min/1.73m2 Critically low >=60 [facility] Comment on above: Performed By: #### A NARF #### [facility] [address] [address] [address] Deborah Mohan EGFR-NON AF [place] 35 mL/min/1.73m2 Critically low >=60 [facility] Comment on above: Performed By: #### A NARF #### [facility] [address] [address] [address] Deborah Mohan Vital Signs Date Time Vital Sign Value Performing Clinician James ojhns 03-20-2024 14:57-0400 Blood Pressure Location Anderson SHASHA [facility] 03-20-2024 14:57-0400 Diastolic blood pressure 82 mm[Hg] Anderson PULLIAM [facility] 03-20-2024 14:57-0400 Heart rate 70 /min Anderson VILLANUEVAL [facility] 03-20-2024 14:57-0400 Respiratory rate 16 /min Anderson VILLANUEVAL [facility] 03-20-2024 14:57-0400 Systolic blood pressure 126 mm[Hg] Anderson NILL [facility] Encounters Encounter Date Encounter Type Care Provider Facility Start: 03-20-2024 End: 03-20-2024 ambulatory Anderson PULLIAM Facility:[facility] Start: 03-20-2024 End: 03-20-2024 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 procedure [facility]ab[facility] Start: 02-10-2024 ambulatory Anderson PULLIAM Facility:[facility] Start: 11-28-2023 End: 11-28-2023 ambulatory [facility] Start: 10-18-2023 End: 10-18-2023 ambulatory [facility] Start: 08-01-2023 End: 08-02-2023 ambulatory Gabriella Woodruff [...] Clarita Leigh Facility:[facility] Start: 05-08-2022 End: 05-08-2022 ambulatory 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 Clarita Leigh Work Phone: [facility] Work Phone: Start: 05-08-2022 End: 05-08-2022 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 procedure 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 Clarita Leigh Work Phone: [facility] Start: 04-08-2022 End: [...] 04-01-2018 Emergency department patient visit BRANDON RUSSELL [facility] Start: 12-11-2017 End: 12-11-2017 Emergency department patient visit ROBERT HURLEY Facility:[facility] Procedures Date Procedure Procedure Detail Performing Clinician Start: 05-08-2022 Plain X-ray of left wrist 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 Clarita Leigh Work Phone: Start: 05-08-2022 X-ray of left ankle [employer]ER -C Clarita Leigh Work Phone: Start: 04-01-2018 [...] Date Payer Category Payer Unknown 2022 Medicare [id number] 2022 Self-pay 1959 Unknown [id number] 1955 Unknown [id number] 2.16.84 0.1.682814.3.579.2.593 1953 Unknown [id number] 2.16.84 0.1.352373.3.579.2.593 1953 Unknown [id number] 2.16.84 0.1.876606.3.579.2.593 1953 Unknown [id number] 2.16.84 0.1.594044.3.579.2.593 1953 Unknown [id number] 2.16.84 0.1.095489.3.579.2.593 1953 Unknown [id number] 2.16.84 0.1.479471.3.579.2.593 1953 Unknown [id number] 2.16.84 0.1.023085.3.579.2.593 1953 Unknown [id number] 2.16.84 0.1.397961.3.579.2.593 1953 Unknown [id number] 2.16.84 0.1.356901.3.579.2.593 1953 Unknown [id number] 2.16.84 0.1.653798.3.579.2.593 1953 Unknown [id number] 2.16.84 0.1.379299.3.579.2.593 1953 Unknown [id number] 2.16.84 0.1.685743.3.579.2.593 1953 Unknown [id number] 2.16.84 0.1.781846.3.579.2.593 1953 Unknown [id number] 2.16.84 0.1.653889.3.579.2.593 1953 Unknown [id number] 2.16.84 0.1.925513.3.579.2.593 1953 Unknown [id number] 2.16.84 0.1.822652.3.579.2.593 1953 Unknown [id number] 2.16.84 0.1.192094.3.579.2.593 1953 Unknown [id number] 2.16.84 0.1.544660.3.579.2.593 1953 Unknown [id number] 2.16.84 0.1.218811.3.579.2.593 1953 Unknown [id number] 2.16.84 0.1.454625.3.579.2.593 1953 Unknown [id number] 2.16.84 0.1.562106.3.579.2.593 1953 Unknown [id number] 2.16.84 0.1.741465.3.579.2.593 1953 Unknown [id number] 2.16. 840.1.394027.3.579.2.196 1955 Unknown [id number] 2.16.8 40.1.184369.3.579.2.727 Medicare [id number] Unknown [facility] [id number] Unknown [employer]/BS [id number] Unknown [id number] 2.16.8 40.1.491454.3.579.2.531 Social History Date Type Detail Facility [facility] Work Phone: Start: 1955 Sex Assigned At Female [facility] Start: 03-20-2024 Tobacco smoking status Ex-smoker (fi nding) [facility] Tobacco smoking status Never [facility] Sex Assigned At Female [facility] Functional Status Date Assessment Result Facility 03-20-2024 Functional Status N/A [facility] Clinical Notes 11-05-2021 to 03-20-2024 Note [...] 1 tab(s), Or (more content not included)... [facility] Comment on above: Result Comment: Elec tronically Signed By: SHASHA GRANT, Anderson Quick\Date and Time Signed: 03/20/24 16:53 EDT 11-28-2023 Note [facility] Cardiology Clinic Note Chief Complaint: Patient [...] Abnormal ECG, COPD (chronic obstructive pulmonary disease) ([facility]/HCC), and HTN (hypertension). Surgical History She [...] mouth in the morning., Disp: , Rfl: aauakgehxp-bdspsqsyjmvcl-jgdk 50-325-40 mg tablet, Take 1 tablet by [...] sinus rhythm Echocar (more content not included)... [facility] 10-18-2023 Note [facility] Cardiology Clinic Note Chief Complaint: New patient here to establish care. Ref from Dr. Townsend for abnormal EKG. She also wore 7 day Holter monitor, and says she did not work while wearing this. She works at [employer] and says it's very fast paced. States she drinks a 5 Hour Energy shot almost every day. She was admitted to [facility] for migraine recently and was found to have abnormal EKG. Recently has noticed a twinge of chest pain. C/o DAI, palpitations, and lightheadedness. HPI: Mary Vick is a 68 y.o. female With a history of hypertension and hypothyroidism who presents due to an abnormal Holter monitor She was admitted to the [facility] for migraine; a monitor revealed both SVT [...] Plan: Routine labs (more content not included)... [facility] 07-08-2022 Note CONSULTATION PROCEDURE DATE: [...] in the clinic in three months. The [facility] 06-24-2022 Note CONSULTATION CONSULTATION DATE: 06/24/2022 HISTORY [...] at a time, as she works at [employer]. Current medications include Percocet 5/325 daily, diclofenac [...] pending approval for her knee injections. The [facility] 04-08-2022 Note CONSULTATION CONSULTATION DATE: 04/08/2022 HISTORY [...] three months' time unless otherwise indicated. The [facility] 03-09-2022 Note CONSULTATION CONSULTATION DATE: 03/09/2022 CHIEF [...] to proceed. CC: Polo Silva CNP [facility] 01-28-2022 Note CONSULTATION CONSULTATION DATE: 01/30/2022 HISTORY [...] and re-evaluation of her bursa injection. [facility] 01-28-2022 Note CONSULTATION PROCEDURE DATE: 01/30/2022 PREOPERATIVE [...] be followed up in the clinic. The [facility] 11-12-2021 Note PROCEDURE: XR HIPS B IL [...] by: RAUDEL ESTRADA Date: 2021-11-12 07:50 [facility] 11-05-2021 Note CONSULTATION PROCEDURE DATE:11/05/2021 PREOPERATIVE DIAGNOSIS: [...] by: JOEL RAMON . 11/18/2021 16:24:00 The [facility] 11-05-2021 Note CONSULTATION CONSULTATION DATE: 11/05/2021 HISTORY [...] time, was working half a day at [employer] and since then has increased to full [...] by: JOEL RAMON . 11/18/2021 16:24:00 The [facility] Evaluation + Plan note No data available for this section [facility] Evaluation note No assessment inform ation available [facility] Work Phone: Hospital Discharge instructions No data available for this section [facility] Progress note No data available for this section [facility] Summary Purpose Family History No Family [...] and content) DATE CREATED AUTHOR 12/21/2017 The [facility] DATE CREATED AUTHOR AUTHOR'S ORGANIZ ATION 05/01/2018 [facility] DATE CREATED AUTHOR AUTHOR'S ORGANIZ ATION 05/17/2022 [facility] DATE CREATED AUTHOR AUTHOR'S ORGANIZ ATION 10/06/2022 [facility] DATE CREATED AUTHOR AUTHOR'S ORGANIZ ATION 08/03/2023 [facility] DATE CREATED AUTHOR AUTHOR'S ORGANIZ ATION 11/28/2023 [facility] DATE CREATED AUTHOR AUTHOR'S ORGANIZ ATION 03/22/2024 [facility] Care Teams (unrecognized sec tion and [...] BE BASED ON THE PRIMARY CLINICAL RECORDS. [facility]. provides no warranty or guarantee of the accuracy or completeness of information in this document.
== END 2024-05-03 08:46 | disposition home or self-care (01) ==
LOC: RAD 08:46
PROVIDERS: PCP Nurse Practitioner Family; Visit Provider Anesthesiology Pain Medicine
DX: M25.551 Pain in right hip (principal); M25.552 Pain in left hip; M16.0 Bilateral primary osteoarthritis of hip
CPT/HCPCS: 73522

== ENCOUNTER 2024-05-03 08:49 | Outpatient (OUT) | payer MEDICARE, SELFPAY ==
[2024-05-03 10:20] LABS: Chol HDL Ratio 2.9; Cholesterol 206 mg/dL (<=200); HDL Cholesterol 72 mg/dL (40-60); Triglycerides 74 mg/dL (<=150); VLDL CHOLESTEROL 14.8 mg/dL
== END 2024-05-03 08:50 | disposition home or self-care (01) ==
LOC: LAB 08:50
PROVIDERS: PCP Nurse Practitioner Family; Visit Provider Nurse Practitioner Family
DX: I70.0 Atherosclerosis of aorta (principal)
CPT/HCPCS: 80061

== ENCOUNTER 2024-06-06 07:50 | Inpatient (IN) | payer OTHER, SELFPAY ==
[2024-06-06] VITALS (10 sets, daily range): BP systolic 118–162; BP diastolic 61–81; PULSE 54–80; TEMP 36.4–37; O2SAT 90–99; BMI 36.6; BMI 34.9
--- NOTE | 2024-06-06 08:16 | CT_ITS ---
The [address] [address] Patient Name: MELANIE TOMPKINS MRN: [id number] date: 1955 Sex: F Assigned Patient Location: ER Current Patient Location: [place] Accession/Order Number: [id number] Exam Date: 06/06/2024 09:14 Report Date: 06/06/2024 15:15 At the request of: CHELI LEHMAN Procedure: CT cervical spine wo con CT CERVICAL SPINE WITHOUT CONTRAST, 06/06/2024. HISTORY: Fall. Neck pain. COMPARISON: None. TECHNIQUE: Noncontrast axial CT images obtained through the cervical spine. Reconstructions obtained in the sagittal and coronal planes. FINDINGS: The patient is osteopenic. The odontoid process is intact. The facet joints are intact. Vertebral body heights are normal. Transverse processes are intact. No fracture identified. No CT evidence of spinal cord compression. No paraspinal soft tissue swelling. No paraspinal masses. CT/CT cervical spine wo con IMPRESSION: No acute cervical spine fracture or traumatic subluxation. Electronically authenticated by: GENTRY RODRIGUEZ Date: 06/06/2024 15:15
--- NOTE | 2024-06-06 08:16 | CT_ITS ---
The [address] [address] Patient Name: MELANIE TOMPKINS MRN: [id number] date: 1955 Sex: F Assigned Patient Location: ER Current Patient Location: [place] Accession/Order Number: [id number] Exam Date: 06/06/2024 09:14 Report Date: 06/06/2024 15:15 At the request of: CHELI LEHMAN Procedure: CT head/brain wo con CT head without contrast, 06/06/2024. HISTORY: Fall. Head injury. COMPARISON: CT head, 03/18/2024. TECHNIQUE: Noncontrast axial CT images obtained through the head. Reconstructions obtained in the sagittal and coronal planes. Dose reduction techniques were achieved by using automated exposure control and/or adjustment of mA and/or kV according to patient size and/or use of iterative reconstruction technique. FINDINGS: The paranasal sinuses are clear. Middle ear cavities are clear. Mastoid air cells are clear. Skull base is intact. No skull fracture. Nasopharynx normal. 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 Orbital contents are unremarkable. Mild generalized brain atrophy. Chronic microvascular ischemic changes stable. No subdural fluid collection. There is no mass effect. No shift of midline. No acute hemorrhage. No masses. CT/CT head/brain wo con IMPRESSION: 1. No acute findings. No intracranial hemorrhage. No skull fracture. 2. Stable brain atrophy and chronic microvascular changes. Electronically authenticated by: GENTRY RODRIGUEZ Date: 06/06/2024 15:15
--- NOTE | 2024-06-06 08:16 | CT_ITS ---
The [address] [address] Patient Name: MELANIE TOMPKINS MRN: [id number] date: 1955 Sex: F Assigned Patient Location: ER Current Patient Location: ER Accession/Order Number: [id number] Exam Date: 06/06/2024 09:14 Report Date: 06/06/2024 11:56 At the request of: CHELI LEHMAN Procedure: CT chest wo con EXAMINATION: CT chest wo con, 06/06/2024 9:14 AM EST HISTORY: trauma COMPARISON: None. TECHNIQUE: CT scan of the chest was performed IV contrast. CT dose reduction technique was used, including Automated Exposure Control. FINDINGS: Nodular thyroid gland. Ultrasound could evaluate the thyroid more accurately. Examples include left thyroid nodule measuring 1 cm. No supraclavicular adenopathy. No axillary adenopathy. Moderate coronary artery calcifications. Heart size is normal. Large hiatal hernia. Calcified granulomata of the spleen. Adrenal glands are normal. No acute abnormality of the visualized portions of the upper abdomen. Bilateral scattered interstitial thickening/consolidation, may represent pulmonary edema or potentially infectious/inflammatory process. Left upper lobe pulmonary nodule measuring 0.6 cm (3/19). Moderate degeneration of the lower thoracic spine disc spaces. Vertebral body height is preserved. Old healed fracture of the sternum. Chronic appearing fractures of the anterior first, fourth, fifth, sixth ribs. Chronic appearing fractures of the anterior right second, fourth, fifth, sixth ribs. There is some contour irregularity of the left fourth and fifth rib which could represent an acute nondisplaced fracture (3/43) (3/55). There is some contour irregularity of the anterior right ribs as well involving the right third rib (3/35), right fourth rib (3/43), right fifth rib (3/56) anterior sixth rib (3/65), right seventh rib (3/75). CT/CT chest wo con IMPRESSION: 1. Old healed fracture of the sternum. 2. There are old fractures of the bilateral anterior ribs. There is some additional cortical irregularity of the anterior ribs which could represent acute nondisplaced fractures as described above. Correlate with tenderness in this region. 3. Patchy interstitial thickening/consolidation of the lungs, considerations include pulmonary edema or infection/inflammation. 4. Large hiatal hernia. 5. No acute abnormality of the visualized portions of the upper abdomen. Electronically authenticated by: LIANNA ROGERS Date: 06/06/2024 11:56
--- NOTE | 2024-06-06 08:16 | XR_ITS ---
The [address] [address] Patient Name: MELANIE TOMPKINS MRN: [id number] date: 1955 Sex: F Assigned Patient Location: ER Current Patient Location: Accession/Order Number: [id number] Exam Date: 06/06/2024 09:14 Report Date: 06/06/2024 10:30 At the request of: CHELI LEHMAN Procedure: XR wrist LT min 3V HISTORY: Left wrist pain after a fall today. XR wrist LT min 3V: 06/06/2024 9:14 AM EST COMPARISON: None. FINDINGS: The lateral view is degraded by an oblique orientation. There is an oblique, mildly displaced fracture of the base of the ulnar styloid process. There is also an acute comminuted intra-articular fracture of the distal radius. Major distal fracture fragment is displaced dorsally 5 mm. There is also impaction of this fracture of 8 mm. There is volar apex angulation of this fracture of 30 degrees. There is soft tissue swelling of the distal forearm and wrist. No other fracture or dislocation is seen. There are at least moderate degenerative changes of the first carpometacarpal joint and mild degenerative changes of the triscaphe joint. The bones are osteoporotic. XR/XR wrist LT min 3V IMPRESSION: 1. Acute comminuted, intra-articular fracture of the distal radius with displacement and impaction as described above. 2. Acute, mildly displaced rupture of the base of the ulnar styloid process. 3. Osteoporosis. Electronically authenticated by: LUISITO BULLOCK Date: 06/06/2024 10:30
--- NOTE | 2024-06-06 08:16 | CT_ITS ---
The [address] [address] Patient Name: MELANIE TOMPKINS MRN: [id number] date: 1955 Sex: F Assigned Patient Location: ER Current Patient Location: Accession/Order Number: [id number] Exam Date: 06/06/2024 09:14 Report Date: 06/06/2024 15:15 At the request of: CHELI LEHMAN Procedure: CT facial bones wo con CT maxillofacial bones without contrast, 06/06/2024. HISTORY: Fall. Facial trauma. COMPARISON: None. TECHNIQUE: Noncontrast axial CT images obtained through the maxillofacial bones. Reconstructions obtained in the sagittal and coronal planes. Dose reduction techniques were achieved by using automated exposure control and/or adjustment of mA and/or kV according to patient size and/or use of iterative reconstruction technique. FINDINGS: The nasal bones are intact. Zygomatic arches are intact. The orbital lorenzana are intact. The lorenzana of the maxillary sinuses are intact. No maxillary fracture. The patient is edentulous. No mandible fracture. 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 Prior cataract surgery. There is no intraorbital hematoma. No soft tissue swelling appreciated in the face. There is some edema along the chin. No radiopaque foreign body. No soft tissue hematoma. The tongue and floor of the mouth appear normal. Nasopharynx, oropharynx, and retropharyngeal space are normal. CT/CT facial bones wo con IMPRESSION: 1. There is some mild edema and swelling along the chin. No radiopaque foreign body. 2. No mandibular fracture. 3. No acute maxillofacial bone fracture. Electronically authenticated by: GENTRY RODRIGUEZ Date: 06/06/2024 15:15
--- NOTE | 2024-06-06 08:19 | ED.GENADUL1 ---
HPI HPI - General Adult General Chief complaint: Fall Stated complaint: FALL AT WORK Time Seen by Provider: 06/06/24 07:58 Source: patient Mode of arrival: walk-in Limitations: no limitations History of Present Illness HPI narrative: Patient presents to ED after a fall at work. Patient said she slipped on ice and fell face forward. She complains of left wrist pain facial pain and chest pain. She said she hit her chest on the ground as well as her chin and face. She has broken her left wrist in the past and has an obvious deformity. She denies loss of consciousness. Denies neck pain. She was ambulatory after the event and denies hip or back pain. No abdominal pain. Patient is not on a blood thinner. She does report some pain with breathing in the anterior chest. She states she has broken her sternum in the past. She is alert and oriented no acute distress at this time. Answering questions appropriately and neurologically intact. Related Data Home Medications ?Medication ?Instructions ?Recorded ?Confirmed albuterol sulfate 90 mcg/actuation 2 inh inhalation Q6H PRN shortness 10/21/22 06/06/24 breath activated powder inhaler of breath or wheezing aripiprazole 30 mg tablet (Abilify) 30 mg PO QDAY 10/21/22 06/06/24 diclofenac sodium 50 mg 50 mg PO BID 10/21/22 06/06/24 tablet,delayed release fluoxetine 40 mg capsule (Prozac) 80 mg PO QDAY 10/21/22 06/06/24 omeprazole 40 mg capsule,delayed 80 mg PO DAILY 10/21/22 06/06/24 release ropinirole 1 mg tablet 2 mg PO QDAY PRN restless leg(s) 10/21/22 06/06/24 amitriptyline 25 mg tablet 25 mg PO BEDTIME 09/15/23 06/06/24 ferrous sulfate 325 mg (65 mg 325 mg PO DAILY 04/12/24 06/06/24 iron) tablet (Holly-Time) fluticasone fur. 100 mcg-umeclid 1 inh inhalation DAILY 04/12/24 06/06/24 62.5 mcg-vilant 25 mcg inhalat.powder (Trelegy Ellipta) magnesium 250 mg tablet 250 mg PO DAILY 04/12/24 06/06/24 vitamins A,C,[id number]-ozpq-yevqfi 4,296 1 cap PO DAILY 04/12/24 06/06/24 mcg-226 mg-90 mg capsule (PreserVision AREDS) Previous Rx's ?Medication ?Instructions ?Recorded levothyroxine 50 mcg tablet 50 mcg PO QDAY #30 tabs 09/17/23 (Euthyrox) oxycodone-acetaminophen 5 mg-325 1 tab PO DAILY PRN pain #30 tabs 04/10/24 mg tablet (Percocet) oxycodone-acetaminophen 5 mg-325 1 tab PO DAILY PRN pain #30 tabs 05/17/24 mg tablet (Percocet) Allergies Allergy/AdvReac Type Severity Reaction Status Date / Time sumatriptan (From Imitrex) Allergy Severe Palpitation Verified 06/06/24 08:03 s Opioid HPI Opioid Management Most Recent Opioid Data: Last Pain Scale 5 06/06/24 11:03 06/06/24 Last ED Pain Assessment 06/06/24 11:03 Last MAR Pain Assessment 06/06/24 10:20 Last ORT Total Score 9 09/15/23 12:42 09/15/23 Last ORT Risk Category High Risk 09/15/23 12:42 09/15/23 Review of Systems ROS Status of ROS 10 or more systems reviewed and unremarkable except as noted in history and below [facility] Medical History (Updated 06/06/24 @ 12:37 by Lesia Holguin DO) Macular degeneration ?H35.30 - Unspecified macular degeneration (ICD-10) Seasonal allergies ?J30.2 - Other seasonal allergic rhinitis (ICD-10) Anemia ?D64.9 - Anemia, unspecified (ICD-10) Lumbar radiculopathy ?M54.16 - Radiculopathy, lumbar region (ICD-10) Muscle spasm ?M62.838 - Other muscle spasm (ICD-10) Lumbar spondylosis ?M47.816 - Spondylosis without myelopathy or radiculopathy, lumbar region (ICD-10) Thoracic spondylosis ?M47.814 - Spondylosis without myelopathy or radiculopathy, thoracic region (ICD-10) Bilateral sacroiliitis ?M46.1 - Sacroiliitis, not elsewhere classified (ICD-10) Chronic, continuous use of opioids ?F11.90 - Opioid use, unspecified, uncomplicated (ICD-10) Greater trochanteric bursitis of both hips ?M70.61 - Trochanteric bursitis, right hip (ICD-10) ?M70.62 - Trochanteric bursitis, left hip (ICD-10) Encounter for long-term opiate analgesic use ?Z79.891 - intermediate (current) use of opiate analgesic (ICD-10) Bilateral primary osteoarthritis of knee ?M17.0 - Bilateral primary osteoarthritis of knee (ICD-10) Acute opioid intoxication ?F11.929 - Opioid use, unspecified with intoxication, unspecified (ICD-10) Tubal ligation evaluation ?Z01.818 - Encounter for other preprocedural examination (ICD-10) Colonoscopy planned Headache, migraine ?G43.909 - Migraine, unspecified, not intractable, without status migrainosus (ICD-10) SVT (supraventricular tachycardia) ?I47.10 - Supraventricular tachycardia, unspecified (ICD-10) Screening for colorectal cancer ?Z12.11 - Encounter for screening for malignant neoplasm of colon (ICD-10) ?Z12.12 - Encounter for screening for malignant neoplasm of rectum (ICD-10) COPD (chronic obstructive pulmonary disease) ?J44.9 - Chronic obstructive pulmonary disease, unspecified (ICD-10) Migraine ?G43.909 - Migraine, unspecified, not intractable, without status migrainosus (ICD-10) Loud snoring ?R06.83 - Snoring (ICD-10) Osteoarthritis ?M19.90 - Unspecified osteoarthritis, unspecified site (ICD-10) Neck pain ?M54.2 - Cervicalgia (ICD-10) Bipolar 1 disorder ?F31.9 - Bipolar disorder, unspecified (ICD-10) Hearing deficit ?H91.90 - Unspecified hearing loss, unspecified ear (ICD-10) Anxiety ?F41.9 - Anxiety disorder, unspecified (ICD-10) Acid reflux ?K21.9 - Gastro-esophageal reflux disease without esophagitis (ICD-10) Obesity ?E66.9 - Obesity, unspecified (ICD-10) Hypothyroid ?E03.9 - Hypothyroidism, unspecified (ICD-10) Pulmonary hypertension ?I27.20 - Pulmonary hypertension, unspecified (ICD-10) Sleep apnea ?G47.30 - Sleep apnea, unspecified (ICD-10) High cholesterol ?E78.00 - Pure hypercholesterolemia, unspecified (ICD-10) Hypertension ?I10 - Essential (primary) hypertension (ICD-10) Surgical History (Updated 04/12/24 @ 14:31 by Maeve Gamino) H/O bilateral salpingo-oophorectomy ?Z90.79 - Acquired absence of other genital organ(s) (ICD-10) ?Z90.722 - Acquired absence of ovaries, bilateral (ICD-10) H/O dilation and curettage ?Z98.890 - Other specified postprocedural states (ICD-10) Cataract extraction status ?Z98.49 - Cataract extraction status, unspecified eye (ICD-10) H/O blepharoplasty ?Z98.890 - Other specified postprocedural states (ICD-10) History of mandibular surgery ?Z98.890 - Other specified postprocedural states (ICD-10) Hx of tubal ligation ?Z98.51 - Tubal ligation status (ICD-10) History of appendectomy ?Z90.49 - Acquired absence of other specified parts of digestive tract (ICD-10) History of hysterectomy ?Z90.710 - Acquired absence of both cervix and uterus (ICD-10) Family History (Updated 04/12/24 @ 15:18 by Maeve Gamino) Mother Family history of cancer Sister Family history of cancer Other Delayed recovery from anesthesia Family history of breast cancer Family history of lung cancer Social History Within the past year, how often did you have a drink containing alcohol: never Score interpretation: A score less than 3 is consistent with normal alcohol consumption. Smoking status: Former smoker Non-prescribed substance use: denies use Previous occupational history: [employer] Highest level of school completed/degree received: 11th grade Are you now , , , , never or living with a partner: In a typical week, how many times do you talk on the telephone with family, friends, or neighbors: 3 or more times per week How often do you get together with friends or relatives: 3 or more times per week How often do you attend muslim or sikhism services: 4 or more times per year Do you belong to any clubs or organizations such as muslim groups unions, [email or web address] or athletic groups, or school groups: no Total score: 2 Score interpretation: A score of greater than or equal to 2 indicates the lowest level of social isolation. Little interest or pleasure in doing things: not at all Feeling down, depressed, or hopeless: not at all Feel stressed/tense/nervous/anxious/difficulty sleeping: not at all Gender Identity: female Exam Narrative Exam Narrative: Time Seen: [] Vital Signs: [Per nurse's notes.] General: [Alert] Skin: [Warm, dry, no rash.] Head: [Normocephalic, patient has a laceration in the middle of the upper lip internally. Bruising to the chin, dried blood bilateral naris. And nasal contusion Neck: [Supple, trachea midline.] Eye: [Pupils are equal, round and reactive to light, extraocular movements are intact, normal conjunctiva.] Ears, nose, mouth and throat: oral mucosa moist. 1-1/2 cm lip laceration. Dentition intact. No septal hematoma Cardiovascular: [Regular rate and rhythm, no murmur.] Respiratory: [Lungs are clear to auscultation, respirations are non-labored, breath sounds are equal.] Chest wall: Tenderness to palpation along the sternum Gastrointestinal: [Soft, nontender, non distended, normal bowel sounds.] MSK: 5 out of 5 muscle strength x 4 extremities no calf pain or edema Lymphatics: [No lymphadenopathy.] Psychiatric: [Cooperative, appropriate mood & affect.] Neurological: [Alert and oriented to person, place, time, and situation, no focal neurological deficit observed.] Constitutional Vital Signs, click to edit/add: Last Vital Signs Temp 98.6 F 06/06/24 08:01 Pulse 54 L 06/06/24 11:29 Resp 18 06/06/24 11:29 BP 162/75 H 06/06/24 11:29 Pulse Ox 97 06/06/24 11:29 O2 Del Method Room Air 06/06/24 08:01 Course Vital Signs Vital signs: Vital Signs Temperature 98.6 F 06/06/24 08:01 Pulse Rate 57 L 06/06/24 08:01 Respiratory Rate 18 06/06/24 08:01 Blood Pressure 156/61 H 06/06/24 08:01 Pulse Oximetry 99 06/06/24 08:01 Oxygen Delivery Method Room Air 06/06/24 08:01 Temperature 98.6 F 06/06/24 08:01 Pulse Rate 54 L 06/06/24 11:29 Respiratory Rate 18 06/06/24 11:29 Blood Pressure 162/75 H 06/06/24 11:29 Pulse Oximetry 97 06/06/24 11:29 Oxygen Delivery Method Room Air 06/06/24 08:01 Medical Decision Making MDM Narrative Medical decision making narrative: Patient was placed in a cast for comfort. Patient's internal lip was sutured. I spoke to Dr. Torres who will be on his consultation for her wrist. I spoke to Dr. Townsend who is comfortable keeping the patient here due to her normal vital signs, no hypoxia and her pain has been controlled. It is unclear per radiology if the rib fractures are new or old since she has had old rib fractures however she is tender in the rib cage so I do suspect some of these are new. No evidence of pulmonary contusions. Patient has no acute respiratory distress no confusion. No intracranial hemorrhage. Cervical spine CT was negative for any acute findings and there were no facial bone fractures. Patient would prefer to stay here for monitoring if at all possible and Dr. Townsend is comfortable with that. I did discuss with the patient she may need transferred if anything changes from a trauma standpoint. She expresses understanding and is comfortable with care plan for admission here with possible transfer if anything changes. Differential Diagnosis Differential Diagnosis: Fracture sprain strain contusion laceration Lab Data Lab results reviewed: Yes I reviewed the patient's lab results Labs: Lab Results 06/06/24 Range/Units 08:30 WBC 8.4 (4.0-11.0) 10^3/uL RBC 3.97 L (4.20-5.40) 10^6/uL Hgb 11.4 L (12.0-16.0) g/dL Hct 35.9 L (36.0-48.0) % MCV 90.4 (81.0-99.0) fL MCH 28.7 (26.7-34.0) pg MCHC 31.8 (29.9-35.2) g/dL RDW 16.2 H (11.0-15.0) % Plt Count 290 (150-450) 10^3/uL MPV 10.1 (9.5-13.5) fL Neut % (Auto) 76.7 H (43.0-75.0) % Lymph % (Auto) 11.7 L (20.5-60.0) % Benzie % (Auto) 7.5 (1.7-12.0) % Eos % (Auto) 2.5 (0.9-7.0) % Baso % (Auto) 0.8 (0.2-2.0) % Neut # (Auto) 6.4 (1.4-6.5) 10^3/uL Lymph # (Auto) 1.0 L (1.2-3.8) 10^3/uL Benzie # (Auto) 0.6 (0.3-0.8) 10^3/uL Eos # (Auto) 0.2 (0.0-0.7) 10^3/uL Baso # (Auto) 0.1 (0.0-0.1) 10^3/uL Abs Immat Gran (auto) 0.07 H (0.00-0.03) 10^3/uL Imm/Tot Granulo (auto) 0.8 H (0.0-0.5) % PT 10.4 (9.0-11.6) sec INR 0.98 Sodium 142 (136-145) mmol/L Potassium 4.0 (3.5-5.1) mmol/L Chloride 105 (98-107) mmol/L Carbon Dioxide 27.9 (21.0-32.0) mmol/L Anion Gap 13.1 BUN 15.0 (7.0-18.0) mg/dL Creatinine 1.08 H (0.55-1.02) mg/dL Est GFR ( Amer) >60 (>=60 mL/min/1.73m^2) Est GFR (Non-Af Amer) 50 L (>=60 mL/min/1.73m^2) BUN/Creatinine Ratio 13.9 Glucose 93 (74-106) mg/dL Calcium 8.6 (8.5-10.1) mg/dL Total Bilirubin 0.3 (0.2-1.0) mg/dL AST 22 (15-37) U/L ALT 22 (14-59) U/L Alkaline Phosphatase 65 (46-116) U/L Total Protein 6.6 (6.4-8.2) g/dL Albumin 3.3 L (3.4-5.0) g/dL Globulin 3.3 g/dL Albumin/Globulin Ratio 1.[address] scan - head: Radiologist's impression: ITS Impressions Cervical Spine CT 06/06/24 08:16 IMPRESSION: No acute cervical spine fracture or traumatic subluxation. Electronically authenticated by: GENTRY RODRIGUEZ Date: 06/06/2024 10:[address] 06/06/24 08:16 IMPRESSION: 1. Old healed fracture of the sternum. 2. There are old fractures of the bilateral anterior ribs. There is some additional cortical irregularity of the anterior ribs which could represent acute nondisplaced fractures as described above. Correlate with tenderness in this region. 3. Patchy interstitial thickening/consolidation of the lungs, considerations include pulmonary edema or infection/inflammation. 4. Large hiatal hernia. 5. No acute abnormality of the visualized portions of the upper abdomen. Electronically authenticated by: LIANNA ROGERS Date: 06/06/2024 11:[address] 06/06/24 08:16 IMPRESSION: 1. There is some mild edema and swelling along the chin. No radiopaque foreign body. 2. No mandibular fracture. 3. No acute maxillofacial bone fracture. Electronically authenticated by: GENTRY RODRIGUEZ Date: 06/06/2024 10:[address] 06/06/24 08:16 IMPRESSION: 1. No acute findings. No intracranial hemorrhage. No skull fracture. 2. Stable brain atrophy and chronic microvascular changes. Electronically authenticated by: GENTRY RODRIGUEZ Date: 06/06/2024 09:53 Wrist X-Ray 06/06/24 08:16 IMPRESSION: 1. Acute comminuted, intra-articular fracture of the distal radius with displacement and impaction as described above. 2. Acute, mildly displaced rupture of the base of the ulnar styloid process. 3. Osteoporosis. Electronically authenticated by: LUISITO BULLOCK Date: 06/06/2024 10:30 Discharge Plan Discharge Chief Complaint: Fall Clinical Impression: Fracture of wrist, Laceration of lip, Chin contusion, Fall, Closed rib fracture Patient Disposition: Admitted As Inpatient Time of Disposition Decision: 12:37 Condition: Fair Prescriptions / Home Meds: No Action aripiprazole [Abilify] 30 mg tablet 30 mg PO QDAY fluoxetine [Prozac] 40 mg capsule 80 mg PO QDAY omeprazole 40 mg capsule,delayed release(DR/EC) 80 mg PO DAILY ropinirole 1 mg tablet 2 mg PO QDAY PRN (Reason: restless leg(s)) albuterol sulfate 90 mcg/actuation aerosol powdr breath activated 2 inh inhalation Q6H PRN (Reason: shortness of breath or wheezing) diclofenac sodium 50 mg tablet,delayed release (DR/EC) 50 mg PO BID amitriptyline 25 mg tablet 25 mg PO BEDTIME levothyroxine [Euthyrox] 50 mcg tablet 50 mcg PO QDAY Qty: 30 11RF magnesium 250 mg tablet 250 mg PO DAILY ferrous sulfate [Holly-Time] 325 mg (65 mg iron) tablet 325 mg PO DAILY PreserVision AREDS 4,296 mcg-226 mg-90 mg capsule 1 cap PO DAILY Trelegy Ellipta 100-62.5-25 mcg blister with device 1 inh inhalation DAILY oxycodone-acetaminophen [Percocet] 5-325 mg tablet 1 tab PO DAILY PRN (Reason: pain) Qty: 30 0RF oxycodone-acetaminophen [Percocet] 5-325 mg tablet 1 tab PO DAILY PRN (Reason: pain) Qty: 30 0RF Print Language: Upper Sorbian Referrals: POLO SILVA [Primary Care Provider] - 1 week Procedures ED Laceration Laceration Laceration 1: Site: lip Size (cm): 1.5 Description: linear Depth: simple, single layer Anesthetic used: lidocaine 1% Anesthesia technique: local infiltration Amount (ml): 3 Skin layer closed with: Vicryl Size (cm): 5-0 Number of sutures: 3 Technique: simple, interrupted Additional comments: Lip laceration was closed with absorbable internal sutures. Patient does have dentures that were intact. No complications ED Ortho Splinting/Casting Orthopedic Splinting/Casting Injury #1: Side: left Splint type: Splint arm short Upper extremity injury location: forearm Upper extremity immobilizer: volar splint Additional comments: Patient was placed in a short arm splint for her distal radius and ulnar fracture. IV was placed on that side due to inability to get the IV on the other side so the cast was stopped short of the IV. Patient feels better in the splint. Normal cap refill and mobility of her fingers. No complications.
--- OUTSIDE RECORDS SUMMARY | 2024-06-06 08:19 | XMS_ITS | CCD ---
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 Normal 136-145 [facility] Comment on above: Performed By: #### H DENIS, CMP ####[facility] [address] [address]Dr. Deborah Mohan Urea nitrogen [Mass/Vol] 28.0 mg/dL Critically high 7.0-18.0 [facility] Comment on above: Performed By: #### H DENIS, CMP ####[facility] [address] [place], [place] [address]Dr. Deborah Mohan Urea nitrogen/Creatinine [Mass ratio] 23.1 mg/mg Normal [facility] Comment on above: Performed By: #### H DENIS, CMP ####[facility] [address] [place], [place] [address]Dr. Deborah Mohan TROPONIN, HIGH SENSITIVITYon 04-07-2022 HSTROP 5.9 pg/mL Normal 4.0-51.3 [facility] Comment on above: Result Comment: CUT- OFF POINTS HAVE BEEN ESTABLISHED BASED ON THE FOURTH UNIVERSAL DEFINITIONS OF MYOCARDIAL INFARCTION. THE UPPER REFERENCE LIMIT (URL) OF TROPONIN, DEFINED THE 99TH PERCENTILE OF cTnI DISTRIBUTION IN A REFERENCE POPULATION, HAS BEEN CONFIRMED THE DECISION THRESHOLD FOR DC DIAGNOSIS. Performed By: #### H DENIS, CMP ####[facility] [address] [place], [place] [address]Dr. Deborah Mohan XR CHEST 1 Von 04-07-2022 [...] ANDERSON ALMANZAR Date: 2022-04-07 03:11 Normal [facility] HEMOGLOBINon 03-12-2022 Hemoglobin (Bld) [Mass/Vol] 9.2 g/dL Critically low 12.0-16.0 [facility] Comment on above: Performed By: #### A NARF #### [facility] [address] [address] [address] Deborah Mohan ANTI NEUTROPHIL CYTOPLASMIC AB (ANCA) PRon 03-09-2022 Anti-MPO Antibodies <0.2 Normal 0.0-0.9 [facility] Comment on above: Result Comment: Perf ormed at: BN Performed By: #### B QUALITY ASSURANCE TEST PROGRAM MANAGER, HSTROPN, CMP #### [facility] [address] [address] [address] Deborah Mohan Anti-PR3 Antibodies <0.2 Normal 0.0-0.9 [facility] Comment on above: Result Comment: Perf ormed at: BN Performed By: #### B QUALITY ASSURANCE TEST PROGRAM MANAGER, HSTROPN, CMP #### [facility] [address] [address] [address] Deborah Mohan Atypical pANCA 1:160 Critically high Neg:<1:20 [facility] Comment on above: Result Comment: The atypical pANCA pattern has been observed in a significant percentage of patients with ulcerative colitis, primary sclerosing cholangitis and autoimmune hepatitis. Performed at: CB Performed By: #### B QUALITY ASSURANCE TEST PROGRAM MANAGER, HSTROPN, CMP #### [facility] [address] [address] [address] Deborah Mohan Cytoplasmic (C-ANCA) <1:20 Normal Neg:<1:20 [facility] Comment on above: Result Comment: Perf ormed at: CB Performed By: #### B PHILLIP JONES CMP #### [facility] [address] [address] [address] Deborah Mohan Perinuclear (P-ANCA) <1:20 Normal Neg:<1:20 [facility] Comment on above: Result Comment: The presence of positive fluorescence exhibiting P-ANCA or C-ANCA patterns alone is not specific for the diagnosis of Marlin's Granulomatosis (WG) or microscopic polyangiitis. Decisions about treatment should not be based solely on ANCA IFA results. The [employer] ANCA [employer] Consensus recommends follow up testing of positive sera with both NE-3 and MPO-ANCA enzyme immunoassays. As many as 5% serum samples are positive only by EIA. Ref. AM J Clin Pathol 1999;111:507-513. Performed at: CB Performed By: #### B PHILLIP JONES CMP #### [facility] [address] [place] [address] Dr. Deborah Mohan ANTISCLERODERMA ABon 022 Antiscleroderma-70 Antibodies <0.2 Normal 0.0-0.9 [facility] Comment on above: Performed By: #### A NARF #### [facility] [address] [place] [address] CHEST WO CONon [...] incidental findings, as described above. Normal [facility] CYCLIC CITRULLINATED PEPTIDE AB (CCP)on 03-09-2022 CCP Antibodies IgG/IgA 6 units Normal 0-19 [facility] Comment on above: Result Comment: Nega tive <20 Weak positive 20 - 39 Moderate positive 40 - 59 Strong positive >59 Performed By: #### B QUALITY ASSURANCE TEST PROGRAM MANAGER, HSTROPN, CMP #### [facility] [address] [place], [place] [address] Dr. Deborah Mohan IGG SUBCLASSES (1-4) AND TOT Kade 03-09-2022 IgG, Subclass 1 448 mg/dL Normal 248-810 [facility] Comment on above: Performed By: #### B QUALITY ASSURANCE TEST PROGRAM MANAGER, HSTROPN, CMP #### [facility] [address] [id number] [address] Deborah Mohan IgG, Subclass 2 253 mg/dL Normal 130-555 [facility] Comment on above: Performed By: #### B QUALITY ASSURANCE TEST PROGRAM MANAGER, HSTROPN, CMP #### [facility] [address] [address] [address] Deborah Mohan IgG, Subclass 3 95 mg/dL Normal 15-102 [facility] Comment on above: Performed By: #### B QUALITY ASSURANCE TEST PROGRAM MANAGER, HSTROPN, CMP #### [facility] [address] [id number] [address] Deborah Mohan IgG, Subclass 4 10 mg/dL Normal 2-96 [facility] Comment on above: Performed By: #### B QUALITY ASSURANCE TEST PROGRAM MANAGER, HSTROPN, CMP #### [facility] [address] [place], [place] [address] Dr. Deborah Mohan Immunoglobulin G, Qn, Serum 658 mg/dL Normal 586-1602 [facility] Comment on above: Performed By: #### B QUALITY ASSURANCE TEST PROGRAM MANAGER, HSTROPN, CMP #### [facility] [address] [id number] [address] Deborah Mohan IMMUNOGLOBULIN E, TOTALon Immunoglobulin E, Total 5 IU/mL Critically low 6-495 [facility] Comment on above: Performed By: #### I GETOT ####[facility] [address] [place], [place] [address]QgDr. Deborah Mohan MICHELL EIA W/REFLEX 5 BIOMARKER Son 03-08-2022 MICHELL Direct Negative Normal Negative [facility] Comment on above: Performed By: #### A NARF #### [facility] [address] [address] [address] Deborah Mohan ANGIOTENSION-CONVERTING ENZY ME (FRANCESCO)on 03-08-2022 FRANCESCO 32 U/L Normal 14-82 [facility] Comment on above: Performed By: #### A NGIOC ####[facility] [address] [address]DrAnkur Mohan ANTIGLOMERULAR BASEMENT MEMB ROMMEL ABSon 03-08-2022 Anti-GBM Antibodies <0.2 Normal 0.0-0.9 [facility] Comment on above: Performed By: #### A GBM #### [facility] [address] [address] [address] Deborah Mohan IMMUNOGLOBULIN IGA QUANTITIA VEon 03-06-2022 Immunoglobulin A, Qn, Serum 229 mg/dL Normal 87-352 [facility] Comment on above: Performed By: #### A NARF #### [facility] [address] [address] [address] Deborah Mohan IMMUNOGLOBULIN IGM QUANTITAT IVEon 03-06-2022 Immunoglobulin M, Qn, Serum 83 mg/dL Normal 26-217 [facility] Comment on above: Performed By: #### B QUALITY ASSURANCE TEST PROGRAM MANAGER, HSTROPN, CMP #### [facility] [address] [address] [address] Deborah Mohan RHEUMATOID FACTORon 03-06-20 22 RA Latex Turbid. 10.9 IU/mL Normal <14.0 [facility] Comment on above: Performed By: #### R F ####[facility] [address] [address]Dr. Deborah Mohan CREATININEon 03-05-2022 Creatinine [Mass/Vol] 1.38 mg/dL Critically high 0.55-1.02 [facility] Comment on above: Performed By: #### C MELVINA ####[facility] [address] [id number] Mohan EGFR-AF BELGIAN 46 mL/min/1.73m2 Critically low >=60 [facility] Comment on above: Performed By: #### C MELVINA ####[facility] [address] [place], [place] [address]ZdAnkur Mohan EGFR-NON AF BELGIAN 38 mL/min/1.73m2 Critically low >=60 [facility] Comment on above: Performed By: #### C MELVINA ####[facility] [address] [place], [place] [address]RmDr. Deborah Mohan SED RATE WESTERGRENon 2021 SED RATE 92 mm/hr Critically high <=30 [facility] Comment on above: Performed By: #### B QUALITY ASSURANCE TEST PROGRAM MANAGER, HSTROPN, CMP #### [facility] [address] [place], [place] [address] Dr. Deborah Mohan XR DEXA BONE DENSITYon [...] by: ROBERT CONDON Date: 2022-03-05 16:56 Normal [facility] XR CHEST 1 Von 03-01-2022 [...] by: ROBERT NOVAK Date: 2022-02-28 22:27 Normal [facility] XR KNEE LUANA 4V or [...] RAUDEL ESTRADA Date: 2022-01-29 11:09 Normal [facility] CBC AUTO DIFFon 11-29-2021 BASO # 0.1 103/ul Normal 0.0-0.1 [facility] Comment on above: Performed By: #### C BC ####[facility] [address] [address]Dr. Deborah Mohan Basophils/100 WBC (Bld) 0.8 % Normal 0.2-2.0 [facility] Comment on above: Performed By: #### C BC ####[facility] [address] [address]Dr. Deborah Mohan EO # 0.3 103/ul Normal 0.0-0.7 [facility] Comment on above: Performed By: #### C BC ####[facility] [address] [address]Dr. Deborah Mohan Eosinophils/100 WBC (Bld) 2.2 % Normal 0.9-7.0 [facility] Comment on above: Performed By: #### C BC ####[facility] [address] [place], [place] [address]Dr. Deborah Mohan Erythrocyte distribution width (RBC) [Ratio] 21.2 % Critically high 11.0-15.0 [facility] Comment on above: Performed By: #### C BC ####[facility] [address] [place], [place] [address]Dr. Deborah Mohan Hematocrit (Bld) [Volume fraction] 33.2 % Critically low 36.0-48.0 [facility] Comment on above: Performed By: #### C BC ####[facility] [address] [id number]. Deborah Mohan Hemoglobin (Bld) [Mass/Vol] 10.3 g/dL Critically low 12.0-16.0 [facility] Comment on above: Performed By: #### C BC ####[facility] [address] [id number]. Deborah Mohan IG # 0.11 10e3/ul Critically high 0.00-0.03 [facility] Comment on above: Performed By: #### C BC ####[facility] [address] [id number]. Deborah Mohan IG % 0.9 % Critically high 0.0-0.5 [facility] Comment on above: Performed By: #### C BC ####[facility] [address] [address]Dr. Deborah Mohan LYMPH # 2.2 103/ul Normal 1.2-3.8 [facility] Comment on above: Performed By: #### C BC ####[facility] [address] [id number]. Deborah Mohan Lymphocytes/100 WBC (Bld) 18.5 % Critically low 20.5-60.0 [facility] Comment on above: Performed By: #### C BC ####[facility] [address] [address]Dr. Deborah Mohan MANUAL DIFF REQ NO Normal [facility] Comment on above: Performed By: #### C BC ####[facility] [address] [id number]. Deborah Mohan MCH (RBC) [Entitic mass] 26.3 pg Critically low 26.7-34.0 [facility] Comment on above: Performed By: #### C BC ####[facility] [address] [id number]. Deborah Mhoan MCHC (RBC) [Mass/Vol] 31.0 g/dL Normal 29.9-35.2 [facility] Comment on above: Performed By: #### C BC ####[facility] [address] [id number]. Deborah Mohan MCV (RBC) [Entitic vol] 84.9 fL Normal 81.0-99.0 [facility] Comment on above: Performed By: #### C BC ####[facility] [address] [id number]. Deborah Mohan MONO # 0.6 103/ul Normal 0.3-0.8 [facility] Comment on above: Performed By: #### C BC ####[facility] [address] [id number]. Deborah Mohan Monocytes/100 WBC (Bld) 5.3 % Normal 1.7-12.0 [facility] Comment on above: Performed By: #### C BC ####[facility] [address] [place], [place] [address]Dr. Deborah Mohan NEUT # 8.4 103/ul Critically high 1.4-6.5 [facility] Comment on above: Performed By: #### C BC ####[facility] [address] [place], [place] [address]Dr. Deborah Mohan Neutrophils/100 WBC (Bld) 72.3 % Normal 43.0-75.0 [facility] Comment on above: Performed By: #### C BC ####[facility] [address] [place], [place] [id number]. Deborah Mohan Platelet mean volume (Bld) [Entitic vol] 10.1 fL Normal 9.5-13.5 [facility] Comment on above: Performed By: #### C BC ####[facility] [address] [id number]. Deborah Mohan PLT 351 103/ul Normal 150-450 [facility] Comment on above: Performed By: #### C BC ####[facility] [address] [id number]. Deborah Mohan RBC 3.91 106/ul Critically low 4.20-5.40 [facility] Comment on above: Performed By: #### C BC ####[facility] [address] [place], [place] [address]RxAnkur Mohan WBC 11.6 103/ul Critically high 4.0-11.0 [facility] Comment on above: Performed By: #### C BC ####[facility] [address] [place], [place] [address]Xa. Deborah Mohan CTA CHEST WO W CONon [...] 2. Bilateral peripheral fibrosis and/or scarring with tqxs-fe-vtrlnzyy groundglass densities. The groundglass densities are slightly decreased compared to the prior scan. 3. Old calcified granulomas in the chest and abdomen. 4. Large hiatal hernia. 5. Moderate diffuse osteopenia. Electronically authenticated by: BERNARDO DENNY Date: 2021-11-29 20:31 Normal [facility] D-DIMERon 11-29-2021 D-DIMER 1.14 mg/L FEU Critically high <=0.59 [facility] Comment on above: Performed By: #### A NARF #### [facility] [address] [place] [address] Dr. Deborah Mohan D-DIMER COMMENTS SEE BELOW Normal [facility] Comment on above: Result Comment: Incr eases [...] hospitalization. Performed By: #### A NARF #### [facility] [address] [place] [address] Dr. Deborah Mohan PROF CHEM 8 (BAS METB)on Anion gap [Moles/Vol] 11.7 mmol/L Normal [facility] Comment on above: Performed By: #### B KYLEE HSTROPN #### [facility] [address] [place] [address] Dr. Deborah Mohan Calcium [Mass/Vol] 8.7 mg/dL Normal 8.5-10.1 [facility] Comment on above: Performed By: #### B KYLEE HSTROPN #### [facility] [address] [place] [address] Dr. Deborah Mohan Chloride [Moles/Vol] 107 mmol/L Normal 98-107 [facility] Comment on above: Performed By: #### B KYLEE HSTROPN #### [facility] [address] [place] [address] Dr. Deborah Mohan CO2 [Moles/Vol] 25.3 mmol/L Normal 21.0-32.0 [facility] Comment on above: Performed By: #### B KYLEE, HSTROPN #### [facility] [address] [address] [address] Deborah Mohan Creatinine [Mass/Vol] 0.98 mg/dL Normal 0.55-1.02 [facility] Comment on above: Performed By: #### B KYLEE, HSTROPN #### [facility] [address] [address] [address] Deborah Mohan EGFR-AF BELGIAN >60 Normal >=60 [facility] Comment on above: Performed By: #### B KYLEE, HSTROPN #### [facility] [address] [place] [address] Dr. Deborah Mohan EGFR-NON AF BELGIAN 56 mL/min/1.73m2 Critically low >=60 [facility] Comment on above: Performed By: #### B KYLEE, HSTROPN #### [facility] [address] [place] [address] Dr. Deborah Mohan Glucose [Mass/Vol] 105 mg/dL Normal 74-106 [facility] Comment on above: Performed By: #### B KYLEE, HSTROPN #### [facility] [address] [place] [address] Dr. Deborah Mohan Potassium [Moles/Vol] 4.0 mmol/L Normal 3.5-5.1 [facility] Comment on above: Performed By: #### B KYLEE, HSTROPN #### [facility] [address] [place] [address] Dr. Deborah Mohan Sodium [Moles/Vol] 140 mmol/L Normal 136-145 [facility] Comment on above: Performed By: #### B KYLEE, HSTROPN #### [facility] [address] [place] [address] Dr. Deborah Mohan Urea nitrogen [Mass/Vol] 21.0 mg/dL Critically high 7.0-18.0 [facility] Comment on above: Performed By: #### B KYLEE, HSTROPN #### [facility] [address] [place], [place] [address] Dr. Deborah Mohan Urea nitrogen/Creatinine [Mass ratio] 21.4 mg/mg Normal [facility] Comment on above: Performed By: #### B KYLEE, HSTROPN #### [facility] [address] [address] [address] Deborah Mohan TROPONIN, HIGH SENSITIVITYon 11-29-2021 HSTROP 4.5 pg/mL Normal 4.0-51.3 [facility] Comment on above: Result Comment: CUT- OFF POINTS HAVE BEEN ESTABLISHED BASED ON THE FOURTH UNIVERSAL DEFINITIONS OF MYOCARDIAL INFARCTION. THE UPPER REFERENCE LIMIT (URL) OF TROPONIN, DEFINED THE 99TH PERCENTILE OF cTnI DISTRIBUTION IN A REFERENCE POPULATION, HAS BEEN CONFIRMED THE DECISION THRESHOLD FOR DC DIAGNOSIS. Performed By: #### H STROPN ####[facility] [id number] [place], [place] [address]YgDr. Deborah Mohan HSTROP 6.0 pg/mL Normal 4.0-51.3 [facility] Comment on above: Result Comment: CUT- OFF POINTS HAVE BEEN ESTABLISHED BASED ON THE FOURTH UNIVERSAL DEFINITIONS OF MYOCARDIAL INFARCTION. THE UPPER REFERENCE LIMIT (URL) OF TROPONIN, DEFINED THE 99TH PERCENTILE OF cTnI DISTRIBUTION IN A REFERENCE POPULATION, HAS BEEN CONFIRMED THE DECISION THRESHOLD FOR DC DIAGNOSIS. Performed By: #### B KYLEE, HSTROPN #### [facility] [address] [address] [address] Deborah Mohan XR CHEST 1 Von [...] KANDY BARRY Date: 2021-11-29 19:20 Normal [facility] XR LSPINE W_OBLS AND FLEX_EX [...] by: RAUDEL ESTRADA Date: 2021-11-12 07:56 Normal [facility] CALCIUMon 11-11-2021 Calcium [Mass/Vol] 9.0 mg/dL Normal 8.5-10.1 [facility] Comment on above: Performed By: #### A NARF #### [facility] [address] [address] [address] Deborah Mohan CREATININEon 11-11-2021 Creatinine [Mass/Vol] 1.47 mg/dL Critically high 0.55-1.02 [facility] Comment on above: Performed By: #### A NARF #### [facility] [address] [address] [address] Deborah Mohan EGFR-AF BELGIAN 43 mL/min/1.73m2 Critically low >=60 [facility] Comment on above: Performed By: #### A NARF #### [facility] [address] [address] [address] Deborah Mohan EGFR-NON AF BELGIAN 35 mL/min/1.73m2 Critically low >=60 [facility] Comment on above: Performed By: #### A NARF #### [facility] [address] [place] [address] Dr. Deborah Mohan Vital Signs Date Time Vital Sign Value Performing Clinician Faci lity 03-20-2024 14:57-0400 Blood Pressure Location Anderson SHASHA [facility] [place] 03-20-2024 14:57-0400 Diastolic blood pressure 82 mm[Hg] Anderson NILL [facility] [place] 03-20-2024 14:57-0400 Heart rate 70 /min Anderson NILL [facility] [place] 03-20-2024 14:57-0400 Respiratory rate 16 /min Anderson NILL [facility] [place] 03-20-2024 14:57-0400 Systolic blood pressure 126 mm[Hg] Anderson NILL [facility] [place] Encounters Encounter Date Encounter Type Care Provider Facility Start: 04-25-2024 End: 04-25-2024 ambulatory Anderson Wiley RICHL Facility:CD:[id number] Start: 03-20-2024 End: 03-20-2024 ambulatory Luisito Townsend Facility: [place] Start: 03-20-2024 End: 03-20-2024 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 procedure Anderson VILLANUEVAL [facility] [place] Start: 02-10-2024 ambulatory Luisito Hoy Facility:[facility] Start: 11-28-2023 End: 11-28-2023 ambulatory [facility] Start: 10-18-2023 End: 10-18-2023 ambulatory [facility] Start: 08-01-2023 End: 08-02-2023 ambulatory Gabriella Woodruff MD Facility:[facility] Start: 10-05-2022 End: 10-06-2022 ambulatory NARENDRANATH LAKSHMIPATHY . Facility: Start: 09-17-2022 End: 09-17-[address] INGRID ESPINAL Facility:[facility] Start: 08-26-2022 ambulatory NARENDRANATH LAKSHMIPATHY . Facility:[facility] Start: 08-24-2022 End: 08-24-2022 ambulatory NATIVIDAD RICARDO Facility:[facility] Start: 07-08-2022 End: 07-09-2022 ambulatory JOEL RAMON . Facility:[facility] Start: 07-06-2022 End: 07-07-2022 ambulatory NATIVIDAD RICARDO Facility:[facility] Start: 06-24-2022 End: 06-25-2022 ambulatory JOEL RAMON . Facility:[facility] Start: 05-21-2022 ambulatory NATIVIDAD RICARDO Facility: [facility] Start: 05-08-2022 End: 05-08-2022 ambulatory Clarita Nena Facility:[facility] Start: 05-08-2022 End: 05-08-2022 ambulatory [employer] Clarita Nena Work Phone: [facility] Work Phone: Start: 05-08-2022 End: 05-08-2022 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 procedure [employer] Clarita Nena Work Phone: [facility] Start: 04-08-2022 End: 04-09-2022 ambulatory JOEL RAMON . Facility:[facility] Start: 04-07-2022 End: 04-07-2022 ambulatory NATIVIDAD RICARDO Facility:[facility] Start: 03-16-2022 End: 03-16-2022 ambulatory NATIVIDAD RICARDO Facility:[facility] Start: 03-12-2022 End: 03-13-2022 ambulatory NATIVIDAD RICARDO Facility:[facility] Start: 03-09-2022 End: 03-10-2022 ambulatory NATIVIDDA RICARDO Facility:[facility] Start: 03-05-2022 End: 03-06-2022 ambulatory NATIVIDAD RICARDO Facility:[facility] Start: 02-28-2022 End: 03-01-2022 ambulatory NATIVIDAD RICARDO Facility:[facility] Start: 01-29-2022 End: 01-30-2022 ambulatory JOEL RAMON . Facility:[facility] Start: 01-28-2022 End: 01-29-2022 ambulatory JOEL RAMON . Facility:[facility] Start: 11-29-2021 End: 11-30-2021 ambulatory NATIVIDAD RICARDO Facility:[facility] Start: 11-11-2021 End: 11-13-[address] LUISITO TOWNSEND . Facility:[facility] Start: 11-05-2021 End: 11-06-2021 ambulatory JOEL RAMON . Facility: Start: 04-01-2018 End: 04-01-2018 Emergency department patient visit BRANDON RUSSELL [facility] Start: 12-11-2017 End: 12-11-2017 Emergency department patient visit ROBERT HURLEY Facility:[facility] Procedures Date Procedure Procedure Detail Performing Clinician Start: 05-08-2022 Plain X-ray of left wrist [employer] Clarita Blakeault Work Phone: Start: 05-08-2022 X-ray of left ankle [employer] Clarita Nena Work Phone: Start: 04-01-2018 IP CONSULT TO ORAL SURGERY BRANDON RUSSELL Start: 03-14-2013 Colonoscopy Anderson NI LL Appendectomy Anderson NILL Blepharoplasty Anderson NILL Bone structure of ma ndible (body structure) Anderson NILL Dilation and curettage Dakota alice NILL Extraction of cataract Dakota alice NILL Ligation of fallopian tube Kyree segovia NILL Total abdominal hysterectomy with bilateral salpingo-oophorectomy Anderson VILLANUEVAL Payers Date Payer Category Payer Unknown 2022 Medicare [id number] 2022 Self-pay 1959 Unknown [id number] 1953 Unknown [id number] 2.16.84 0.1.352420.3.579.2.593 1953 Unknown [id number] 2.16.84 0.1.367652.3.579.2.593 1953 Unknown [id number] 2.16.84 0.1.399961.3.579.2.593 1953 Unknown [id number] 2.16.84 0.1.554623.3.579.2.593 1953 Unknown [id number] 2.16.84 0.1.162745.3.579.2.593 1953 Unknown [id number] 2.16.84 0.1.233857.3.579.2.593 1953 Unknown [id number] 2.16.84 0.1.109809.3.579.2.593 1953 Unknown [id number] 2.16.84 0.1.017827.3.579.2.593 1953 Unknown [id number] 2.16.84 0.1.292122.3.579.2.593 1953 Unknown [id number] 2.16.84 0.1.064326.3.579.2.593 1953 Unknown [id number] 2.16.84 0.1.977895.3.579.2.593 1953 Unknown [id number] 2.16.84 0.1.563465.3.579.2.593 1953 Unknown [id number] 2.16.84 0.1.332528.3.579.2.593 1953 Unknown [id number] 2.16.84 0.1.321147.3.579.2.593 1953 Unknown [id number] 2.16.84 0.1.704822.3.579.2.593 1953 Unknown [id number] 2.16.84 0.1.087980.3.579.2.593 1953 Unknown [id number] 2.16.84 0.1.973339.3.579.2.593 1953 Unknown [id number] 2.16.84 0.1.577919.3.579.2.593 1953 Unknown [id number] 2.16.84 0.1.379754.3.579.2.593 1953 Unknown [id number] 2.16.84 0.1.710839.3.579.2.593 1953 Unknown [id number] 2.16.84 0.1.610758.3.579.2.593 1953 Unknown [id number] 2.16.84 0.1.249102.3.579.2.593 1953 Unknown [id number] 2.16. 840.1.957527.3.579.2.196 1953 Unknown [id number] 2.16.8 40.1.082216.3.579.2.727 1953 Unknown [id number] 2.16.8 40.1.913513.3.579.2.727 Medicare [id number] Unknown [facility] [id number] Unknown [employer]/BS [id number] Unknown [id number] 2.16.8 40.1.984661.3.579.2.531 Social History Date Type Detail [facility] Work Phone: Start: 1955 Sex Assigned At Female [facility] Start: 03-20-2024 Tobacco smoking status Ex-smoker (fi nding) [facility] Tobacco smoking status Never [facility] Sex Assigned At Female [facility] Functional Status Date Assessment Result Facility 03-20-2024 Functional Status N/A [facility] Clinical Notes 11-05-2021 to 03-20-2024 Note [...] 1 tab(s), Or (more content not included)... [facility] Comment on above: Result Comment: Elec tronically Signed By: SHASHA GRANT, Anderson Serrano.nigel\Date and Time Signed: 03/20/24 16:53 EDT 11-28-2023 Note [facility] Cardiology Clinic Note Chief Complaint: [...] mouth in the morning., Disp: , Rfl: rsnlgauesn-xgkamfqepxhlw-hibv 50-325-40 mg tablet, Take 1 tablet by [...] sinus rhythm Echocar (more content not included)... [facility] 10-18-2023 Note [facility] Cardiology Clinic Note Chief Complaint: New patient here to establish care. Ref from Dr. Townsend for abnormal EKG. She also wore 7 day Holter monitor, and says she did not work while wearing this. She works at [employer] and says it's very fast paced. States she drinks a 5 Hour Energy shot almost every day. She was admitted to [facility] for migraine recently and was found to have abnormal EKG. Recently has noticed a twinge of chest pain. C/o DAI, palpitations, and lightheadedness. HPI: Mary Vick is a 68 y.o. female With a history of hypertension and hypothyroidism who presents due to an abnormal Holter monitor She was admitted to the [facility] for migraine; a monitor revealed [...] Plan: Routine labs (more content not included)... [facility] 07-08-2022 Note CONSULTATION PROCEDURE DATE: [...] in the clinic in three months. [facility] 06-24-2022 Note CONSULTATION CONSULTATION DATE: [...] at a time, as she works at [employer]. Current medications include Percocet 5/325 daily, diclofenac [...] pending approval for her knee injections. [facility] 04-08-2022 Note CONSULTATION CONSULTATION DATE: [...] three months' time unless otherwise indicated. [facility] 03-09-2022 Note CONSULTATION CONSULTATION DATE: [...] to proceed. CC: Natividad Silva CNP [facility] 01-28-2022 Note CONSULTATION CONSULTATION DATE: [...] and re-evaluation of her bursa injection. [facility] 01-28-2022 Note CONSULTATION PROCEDURE DATE: [...] be followed up in the clinic. [facility] 11-12-2021 Note PROCEDURE: XR HIPS [...] by: RAUDEL ESTRADA Date: 2021-11-12 07:50 [facility] 11-05-2021 Note CONSULTATION PROCEDURE DATE:11/05/2021 [...] will be followed up in the office. [facility] Signed and Approved by: JOEL RAMON . 11/18/2021 16:24:00 [facility] 11-05-2021 Note CONSULTATION CONSULTATION DATE: [...] time, was working half a day at [employer] and since then has increased to full [...] in three months' time unless otherwise indicated. [facility] Signed and Approved by: JOEL RAMON . 11/18/2021 16:24:00 [facility] Evaluation + Plan note No data available for this section [facility] Evaluation note No assessment inform ation available [facility] Work Phone: Hospital Discharge instructions No data available for this section [facility] Progress note No data available for this section [facility] Summary Purpose Family History No Family [...] section and content) DATE CREATED AUTHOR 12/21/2017 [facility] DATE CREATED AUTHOR AUTHOR'S ORGANIZ ATION 05/01/2018 [facility] DATE CREATED AUTHOR AUTHOR'S ORGANIZ ATION 05/17/2022 [facility] DATE CREATED AUTHOR AUTHOR'S ORGANIZ ATION 10/06/2022 [facility] DATE CREATED AUTHOR AUTHOR'S ORGANIZ ATION 08/03/2023 [facility] DATE CREATED AUTHOR AUTHOR'S ORGANIZ ATION 11/28/2023 [facility] DATE CREATED AUTHOR AUTHOR'S ORGANIZ ATION 05/03/2024 [facility] Care Teams (unrecognized sec tion and [...] BE BASED ON THE PRIMARY CLINICAL RECORDS. [facility] [employer] [facility] provides no warranty or guarantee of the accuracy or completeness of information in this document.
[2024-06-06] MEDS: FENTANYL CITRATE/PF 100 MCG/2 ML VIAL 50 MCG IV (08:35)
[2024-06-06 08:43] LABS: Basophils Absolute Auto 0.1 10^3/uL (0.0-0.1); Basophils Percent Auto 0.8 % (0.2-2.0); Eosinophils Absolute Auto 0.2 10^3/uL (0.0-0.7); Eosinophils Percent Auto 2.5 % (0.9-7.0); Hematocrit 35.9 % (36.0-48.0); Hemoglobin 11.4 g/dL (12.0-16.0); Immature Granulocytes Abs Auto 0.07 10^3/uL (0.00-0.03); Immature Granulocytes Pct Auto 0.8 % (0.0-0.5); Lymphocytes Percent Auto 11.7 % (20.5-60.0); Mean Corpuscular HGB Conc 31.8 g/dL (29.9-35.2); Mean Corpuscular Hemoglobin 28.7 pg (26.7-34.0); Mean Corpuscular Volume 90.4 fL (81.0-99.0); Mean Platelet Volume 10.1 fL (9.5-13.5); Monocytes Absolute Auto 0.6 10^3/uL (0.3-0.8); Monocytes Percent Auto 7.5 % (1.7-12.0); Neutrophils Absolute Auto 6.4 10^3/uL (1.4-6.5); Neutrophils Percent Auto 76.7 % (43.0-75.0); Platelet Count 290 10^3/uL (150-450); Red Blood Count 3.97 10^6/uL (4.20-5.40); Red Cell Distribution Width 16.2 % (11.0-15.0); White Blood Count 8.4 10^3/uL (4.0-11.0)
[2024-06-06 08:57] LABS: INR 0.98; Prothrombin Time 10.4 sec (9.0-11.6)
[2024-06-06 09:00] LABS: Alanine Aminotransferase 22 U/L (14-59); Albumin Level 3.3 g/dL (3.4-5.0); Alkaline Phosphatase 65 U/L (46-116); Anion Gap 13.1; Aspartate Amino Transferase 22 U/L (15-37); BUN Creatinine Ratio 13.9; Bilirubin Total 0.3 mg/dL (0.2-1.0); Calcium 8.6 mg/dL (8.5-10.1); Carbon Dioxide 27.9 mmol/L (21.0-32.0); Chloride 105 mmol/L (98-107); Estimated GFR (African America >60 (>=60 mL/min/1.73m^2); Estimated GFR (Non-African Ame 50 (>=60 mL/min/1.73m^2); Globulin 3.3 g/dL; Glucose 93 mg/dL (74-106); Sodium 142 mmol/L (136-145); Total Protein 6.6 g/dL (6.4-8.2)
[2024-06-06] MEDS: LIDOCAINE HCL 1% 100 MG/10 ML MDV INJ (09:07)
[2024-06-06] MEDS: HYDROMORPHONE HCL 0.5 MG/0.5 ML SYRINGE IV ×2 (10:20→13:13)
--- OUTSIDE RECORDS SUMMARY | 2024-06-06 13:50 | XMS_ITS | CCD ---
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 Performed By: #### B OPERATIVE SUPERVISOR, HSTROPN, CMP #### [facility] [address] [address] [address] Deborah Mohan Anti-PR3 Antibodies <0.2 Normal 0.0-0.9 The [facility] Comment on above: Result Comment: Perf ormed at: BN Performed By: #### B OPERATIVE SUPERVISOR, HSTROPN, CMP #### [facility] [address] [address] [address] Deborah Mohan Atypical pANCA 1:160 Critically high Neg:<1:20 [facility] Comment on above: Result Comment: The atypical pANCA pattern has been observed in a significant percentage of patients with ulcerative colitis, primary sclerosing cholangitis and autoimmune hepatitis. Performed at: CB Performed By: #### B OPERATIVE SUPERVISOR, HSTROPN, CMP #### [facility] [address] [address] [address] Deborah Mohan Cytoplasmic (C-ANCA) <1:20 Normal Neg:<1:20 The [facility] Comment on above: Result Comment: Perf ormed at: CB Performed By: #### B PHILLIP JONES CMP #### [facility] [address] [address] [address] Deborah Mohan Perinuclear (P-ANCA) <1:20 Normal Neg:<1:20 The [facility] Comment on above: Result Comment: The presence of positive fluorescence exhibiting P-ANCA or C-ANCA patterns alone is not specific for the diagnosis of Marlin's Granulomatosis (WG) or microscopic polyangiitis. Decisions about treatment should not be based solely on ANCA IFA results. The [employer] ANCA [employer] Consensus recommends follow up testing of positive sera with both AK-3 and MPO-ANCA enzyme immunoassays. As many as 5% serum samples are positive only by EIA. Ref. AM J Clin Pathol 1999;111:507-513. Performed at: CB Performed By: #### B PHILLIP JONES CMP #### [facility] [address] [place] [address] Dr. Deborah Mohan ANTISCLERODERMA ABon 022 Antiscleroderma-70 Antibodies <0.2 Normal 0.0-0.9 [facility] Comment on above: Performed By: #### A NARF #### [facility] [address] [place] [address] CHEST WO CONon [...] incidental findings, as described above. Normal The [facility] CYCLIC CITRULLINATED PEPTIDE AB (CCP)on 03-09-2022 CCP Antibodies IgG/IgA 6 units Normal 0-19 The [facility] Comment on above: Result Comment: Nega tive <20 Weak positive 20 - 39 Moderate positive 40 - 59 Strong positive >59 Performed By: #### B OPERATIVE SUPERVISOR, HSTROPN, CMP #### [facility] [address] [place], [place] [address] Dr. Deborah Mohan IGG SUBCLASSES (1-4) AND TOT Kade 03-09-2022 IgG, Subclass 1 448 mg/dL Normal 248-810 [facility] Comment on above: Performed By: #### B OPERATIVE SUPERVISOR, HSTROPN, CMP #### [facility] [address] [id number] Deobrah Mohan IgG, Subclass 2 253 mg/dL Normal 130-555 [facility] Comment on above: Performed By: #### B OPERATIVE SUPERVISOR, HSTROPN, CMP #### [facility] [address] [address] [address] Deborah Mohan IgG, Subclass 3 95 mg/dL Normal 15-102 [facility] Comment on above: Performed By: #### B OPERATIVE SUPERVISOR, HSTROPN, CMP #### [facility] [address] [id number] Deborah Mohan IgG, Subclass 4 10 mg/dL Normal 2-96 [facility] Comment on above: Performed By: #### B OPERATIVE SUPERVISOR, HSTROPN, CMP #### [facility] [address] [place], [place] [address] Dr. Deborah Mohan Immunoglobulin G, Qn, Serum 658 mg/dL Normal 586-1602 [facility] Comment on above: Performed By: #### B OPERATIVE SUPERVISOR, HSTROPN, CMP #### [facility] [address] [id number] [address] Deborah Mohan IMMUNOGLOBULIN E, TOTALon Immunoglobulin E, Total 5 IU/mL Critically low 6-495 [facility] Comment on above: Performed By: #### I GETOT ####[facility] [address] [place], [place] [address]NbDr. Deborah Mohan MICHELL EIA W/REFLEX 5 BIOMARKER Son 03-08-2022 MICHELL Direct Negative Normal Negative [facility] Comment on above: Performed By: #### A NARF #### [facility] [address] [address] [address] Deborah Mohan ANGIOTENSION-CONVERTING ENZY ME (FRANCESCO)on 03-08-2022 FRANCESCO 32 U/L Normal 14-82 [facility] Comment on above: Performed By: #### A NGIOC ####[facility] [address] [address]DrAnkur Mohan ANTIGLOMERULAR BASEMENT MEMB ROMMEL ABSon 03-08-2022 Anti-GBM Antibodies <0.2 Normal 0.0-0.9 [facility] Comment on above: Performed By: #### A GBM #### [facility] [address] [address] [address] Deborah Mohan IMMUNOGLOBULIN IGA QUANTITIA VEon 03-06-2022 Immunoglobulin A, Qn, Serum 229 mg/dL Normal 87-352 [facility] Comment on above: Performed By: #### A NARF #### [facility] [address] [address] [address] Deborah Mohan IMMUNOGLOBULIN IGM QUANTITAT IVEon 03-06-2022 Immunoglobulin M, Qn, Serum 83 mg/dL Normal 26-217 [facility] Comment on above: Performed By: #### B OPERATIVE SUPERVISOR, HSTROPN, CMP #### [facility] [address] [address] [address] Deborah Mohan RHEUMATOID FACTORon 03-06-20 22 RA Latex Turbid. 10.9 IU/mL Normal <14.0 [facility] Comment on above: Performed By: #### R F ####[facility] [address] [address]Dr. Deborah Mohan CREATININEon 03-05-2022 Creatinine [Mass/Vol] 1.38 mg/dL Critically high 0.55-1.02 [facility] Comment on above: Performed By: #### C MELVINA ####[facility] [address] [address]DrAnkur Mohan EGFR-AF BOLIVIAN 46 mL/min/1.73m2 Critically low >=60 [facility] Comment on above: Performed By: #### C MELVINA ####[facility] [address] [place], [place] [address]JmAnkur Mohan EGFR-NON AF BOLIVIAN 38 mL/min/1.73m2 Critically low >=60 [facility] Comment on above: Performed By: #### C MELVINA ####[facility] [address] [place], [place] [address]NgDr. Deborah Mohan SED RATE WESTERGRENon 2021 SED RATE 92 mm/hr Critically high <=30 [facility] Comment on above: Performed By: #### B OPERATIVE SUPERVISOR, HSTROPN, CMP #### [facility] [address] [place], [place] [address] Dr. Deborah Mohan XR DEXA BONE DENSITYon [...] by: ROBERT CONDON Date: 2022-03-05 16:56 Normal [facility] XR CHEST 1 Von 03-01-2022 XR [...] by: ROBERT NOVAK Date: 2022-02-28 22:27 Normal [facility] XR KNEE LUANA 4V or >on [...] RAUDEL ESTRADA Date: 2022-01-29 11:09 Normal The [facility] CBC AUTO DIFFon 11-29-2021 BASO # 0.1 103/ul Normal 0.0-0.1 The [facility] Comment on above: Performed By: #### C BC ####[facility] [address] [address]Dr. Deborah Mohan Basophils/100 WBC (Bld) 0.8 % Normal 0.2-2.0 The [facility] Comment on above: Performed By: #### C BC ####[facility] [address] [address]Dr. Deborah Mohan EO # 0.3 103/ul Normal 0.0-0.7 The [facility] Comment on above: Performed By: #### C BC ####[facility] [address] [address]Dr. Deborah Mohan Eosinophils/100 WBC (Bld) 2.2 % Normal 0.9-7.0 The [facility] Comment on above: Performed By: #### C BC ####[facility] [address] [place], [place] [address]Dr. Deborah Mohan Erythrocyte distribution width (RBC) [Ratio] 21.2 % Critically high 11.0-15.0 The [facility] Comment on above: Performed By: #### C BC ####[facility] [address] [place], [place] [address]Dr. Deborah Mohan Hematocrit (Bld) [Volume fraction] 33.2 % Critically low 36.0-48.0 The [facility] Comment on above: Performed By: #### C BC ####[facility] [address] [address]Dr. Deborah Mohan Hemoglobin (Bld) [Mass/Vol] 10.3 g/dL Critically low 12.0-16.0 [facility] Comment on above: Performed By: #### C BC ####[facility] [address] [address]Dr. Deborah Mohan IG # 0.11 10e3/ul Critically high 0.00-0.03 [facility] Comment on above: Performed By: #### C BC ####[facility] [address] [address]Dr. Deborah Mohan IG % 0.9 % Critically high 0.0-0.5 [facility] Comment on above: Performed By: #### C BC ####[facility] [address] [address]Dr. Deborah Mohan LYMPH # 2.2 103/ul Normal 1.2-3.8 [facility] Comment on above: Performed By: #### C BC ####[facility] [address] [address]Dr. Deborah Mohan Lymphocytes/100 WBC (Bld) 18.5 % Critically low 20.5-60.0 [facility] Comment on above: Performed By: #### C BC ####[facility] [address] [address]Dr. Deborah Mohan MANUAL DIFF REQ NO Normal [facility] Comment on above: Performed By: #### C BC ####[facility] [address] [address]Dr. Deborah Mohan MCH (RBC) [Entitic mass] 26.3 pg Critically low 26.7-34.0 The [facility] Comment on above: Performed By: #### C BC ####[facility] [address] [address]Dr. Deborah Mohan MCHC (RBC) [Mass/Vol] 31.0 g/dL Normal 29.9-35.2 [facility] Comment on above: Performed By: #### C BC ####[facility] [address] [address]Dr. Deborah Mohan MCV (RBC) [Entitic vol] 84.9 fL Normal 81.0-99.0 [facility] Comment on above: Performed By: #### C BC ####[facility] [address] [address]Dr. Deborah Mohan MONO # 0.6 103/ul Normal 0.3-0.8 [facility] Comment on above: Performed By: #### C BC ####[facility] [address] [address]Dr. Deborah Mohan Monocytes/100 WBC (Bld) 5.3 % Normal 1.7-12.0 [facility] Comment on above: Performed By: #### C BC ####[facility] [address] [place], [place] [address]Dr. Deborah Mohan NEUT # 8.4 103/ul Critically high 1.4-6.5 [facility] Comment on above: Performed By: #### C BC ####[facility] [address] [place], [place] [address]Dr. Deborah Mohan Neutrophils/100 WBC (Bld) 72.3 % Normal 43.0-75.0 [facility] Comment on above: Performed By: #### C BC ####[facility] [address] [place], [place] [address]Dr. Deborah Mohan Platelet mean volume (Bld) [Entitic vol] 10.1 fL Normal 9.5-13.5 [facility] Comment on above: Performed By: #### C BC ####[facility] [address] [address]Dr. Deborah Mohan PLT 351 103/ul Normal 150-450 [facility] Comment on above: Performed By: #### C BC ####[facility] [address] [address]Dr. Deborah Mohan RBC 3.91 106/ul Critically low 4.20-5.40 [facility] Comment on above: Performed By: #### C BC ####[facility] [address] [place], [place] [address]PyAnkur Mohan WBC 11.6 103/ul Critically high 4.0-11.[address] [facility] Comment on above: Performed By: #### C BC ####[facility] [address] [place], [place] [address]Yu. Deborah Mohan CTA CHEST WO W CONon [...] 2. Bilateral peripheral fibrosis and/or scarring with cwmk-en-lpzrwjxy groundglass densities. The groundglass densities are slightly decreased compared to the prior scan. 3. Old calcified granulomas in the chest and abdomen. 4. Large hiatal hernia. 5. Moderate diffuse osteopenia. Electronically authenticated by: BERNARDO DENNY Date: 2021-11-29 20:31 Normal [facility] D-DIMERon 11-29-2021 D-DIMER 1.14 mg/L FEU Critically high <=0.59 [facility] Comment on above: Performed By: #### A NARF #### [facility] [address] [place] [address] Dr. Deborah Mohan D-DIMER COMMENTS SEE BELOW Normal The [facility] Comment on above: Result Comment: Incr [...] hospitalization. Performed By: #### A NARF #### [facility] [address] [place] [address] Dr. Deborah Mohan PROF CHEM 8 (BAS METB)on Anion gap [Moles/Vol] 11.7 mmol/L Normal [facility] Comment on above: Performed By: #### B KYLEE HSTROPN #### [facility] [address] [place] [address] Dr. Deborah Mohan Calcium [Mass/Vol] 8.7 mg/dL Normal 8.5-10.1 [facility] Comment on above: Performed By: #### B KYLEE HSTROPN #### [facility] [address] [place] [address] Dr. Deborah Mohan Chloride [Moles/Vol] 107 mmol/L Normal 98-107 [facility] [place] Comment on above: Performed By: #### B KYLEE HSTROPN #### [facility] [place] [address] [place] [address] Dr. Deborah Mohan CO2 [Moles/Vol] 25.3 mmol/L Normal 21.0-32.[address] [facility] Comment on above: Performed By: #### B KYLEE, HSTROPN #### [facility] [place] [address] [address] [address] Deborah Mohan Creatinine [Mass/Vol] 0.98 mg/dL Normal 0.55-1.02 [facility] Comment on above: Performed By: #### B KYLEE, HSTROPN #### [facility] [address] [address] [address] Deborah Mohan EGFR-AF BOLIVIAN >60 Normal >=[address] [facility] Comment on above: Performed By: #### B KYLEE, HSTROPN #### [facility] [address] [place] [address] Dr. Deborah Mohan EGFR-NON AF BOLIVIAN 56 mL/min/1.73m2 Critically low >=60 [facility] Comment on above: Performed By: #### B KYLEE, HSTROPN #### [facility] [address] [place] [address] Dr. Deborah Mohan Glucose [Mass/Vol] 105 mg/dL Normal 74-106 [facility] Comment on above: Performed By: #### B KYLEE, HSTROPN #### [facility] [address] [place] [address] Dr. Deborah Mohan Potassium [Moles/Vol] 4.0 mmol/L Normal 3.5-5.1 [facility] Comment on above: Performed By: #### B KYLEE, HSTROPN #### [facility] [address] [place] [address] Dr. Deborah Mohan Sodium [Moles/Vol] 140 mmol/L Normal 136-145 [facility] Comment on above: Performed By: #### B KYLEE, HSTROPN #### [facility] [address] [place] [address] Dr. Deborah Mohan Urea nitrogen [Mass/Vol] 21.0 mg/dL Critically high 7.0-18.0 [facility] Comment on above: Performed By: #### B KYLEE, HSTROPN #### [facility] [address] [place], [place] [address] Dr. Deborah Mohan Urea nitrogen/Creatinine [Mass ratio] 21.4 mg/mg Normal [facility] Comment on above: Performed By: #### B KYLEE, HSTROPN #### [facility] [address] [address] [address] Deborah Mohan TROPONIN, HIGH SENSITIVITYon 11-29-2021 HSTROP 4.5 pg/mL Normal 4.0-51.3 [facility] Comment on above: Result Comment: CUT- OFF POINTS HAVE BEEN ESTABLISHED BASED ON THE FOURTH UNIVERSAL DEFINITIONS OF MYOCARDIAL INFARCTION. THE UPPER REFERENCE LIMIT (URL) OF TROPONIN, DEFINED THE 99TH PERCENTILE OF cTnI DISTRIBUTION IN A REFERENCE POPULATION, HAS BEEN CONFIRMED THE DECISION THRESHOLD FOR MD DIAGNOSIS. Performed By: #### H STROPN ####[facility] [id number] [place], [place] [address]WwDr. Deborah Mohan HSTROP 6.0 pg/mL Normal 4.0-51.3 [facility] Comment on above: Result Comment: CUT- OFF POINTS HAVE BEEN ESTABLISHED BASED ON THE FOURTH UNIVERSAL DEFINITIONS OF MYOCARDIAL INFARCTION. THE UPPER REFERENCE LIMIT (URL) OF TROPONIN, DEFINED THE 99TH PERCENTILE OF cTnI DISTRIBUTION IN A REFERENCE POPULATION, HAS BEEN CONFIRMED THE DECISION THRESHOLD FOR MD DIAGNOSIS. Performed By: #### B KYLEE, HSTROPN #### [facility] [address] [address] [address] Deborah Mohan XR CHEST 1 Von [...] KANDY BARRY Date: 2021-11-29 19:20 Normal [facility] XR LSPINE W_OBLS AND FLEX_EX Ton [...] by: RAUDEL ESTRADA Date: 2021-11-12 07:56 Normal [facility] CALCIUMon 11-11-2021 Calcium [Mass/Vol] 9.0 mg/dL Normal 8.5-10.1 [facility] Comment on above: Performed By: #### A NARF #### [facility] [address] [address] [address] Deborah Mohan CREATININEon 11-11-2021 Creatinine [Mass/Vol] 1.47 mg/dL Critically high 0.55-1.02 [facility] Comment on above: Performed By: #### A NARF #### [facility] [address] [address] [address] Deborah Mohan EGFR-AF BOLIVIAN 43 mL/min/1.73m2 Critically low >=60 [facility] Comment on above: Performed By: #### A NARF #### [facility] [address] [address] [address] Deborah Mohan EGFR-NON AF BOLIVIAN 35 mL/min/1.73m2 Critically low >=60 [facility] Comment on above: Performed By: #### A NARF #### [facility] [address] [place] [address] Dr. Deborah Mohan Vital Signs Date Time Vital Sign Value Performing Clinician Faci lity 03-20-2024 14:57-0400 Blood Pressure Location Anderson SHASHA [facility] [place] 03-20-2024 14:57-0400 Diastolic blood pressure 82 mm[Hg] Anderson NILL [facility] [place] 03-20-2024 14:57-0400 Heart rate 70 /min Anderson NILL [facility] [place] 03-20-2024 14:57-0400 Respiratory rate 16 /min Anderson NILL [facility] [place] 03-20-2024 14:57-0400 Systolic blood pressure 126 mm[Hg] Anderson NILL [facility] [place] Encounters Encounter Date Encounter Type Care Provider Facility Start: 04-25-2024 End: 04-25-2024 ambulatory Anderson Wiley RICHL Facility:CD:[id number] Start: 03-20-2024 End: 03-20-2024 ambulatory Luisito Townsend Facility: [place] Start: 03-20-2024 End: 03-20-2024 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 procedure Anderson VILLANUEVAL [facility] [place] Start: 02-10-2024 ambulatory Luisito Hoy Facility:[facility] Start: 11-28-2023 End: 11-28-2023 ambulatory [facility] Start: 10-18-2023 End: 10-18-2023 ambulatory [facility] Start: 08-01-2023 End: 08-02-2023 ambulatory Gabriella [...] Start: 05-08-2022 End: 05-08-2022 ambulatory Clarita Nena Facility:[facility] Start: 05-08-2022 End: 05-08-2022 ambulatory HEALTH SERVICES DIRECTOR-C Clarita Nena Work Phone: [facility] Work Phone: Start: 05-08-2022 End: 05-08-2022 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 procedure HEALTH SERVICES DIRECTOR-C Clarita Nena Work Phone: [facility] Start: 04-08-2022 [...] 04-01-2018 Emergency department patient visit BRANDON RUSSELL [facility] Start: 12-11-2017 End: 12-11-2017 Emergency department patient visit ROBERT HURLEY Facility:[facility] Procedures Date Procedure Procedure Detail Performing Clinician Start: 05-08-2022 Plain X-ray of left wrist HEALTH SERVICES DIRECTOR-C Clarita Blakeault Work Phone: Start: 05-08-2022 X-ray of left ankle HEALTH SERVICES DIRECTOR -C Clarita Nena Work Phone: Start: 04-01-2018 [...] Date Payer Category Payer Unknown 2022 Medicare [id number] 2022 Self-pay 1959 Unknown [id number] 1955 Unknown [id number] 2.16.84 0.1.145714.3.579.2.593 1953 Unknown [id number] 2.16.84 0.1.642108.3.579.2.593 1953 Unknown [id number] 2.16.84 0.1.192631.3.579.2.593 1953 Unknown [id number] 2.16.84 0.1.425293.3.579.2.593 1953 Unknown [id number] 2.16.84 0.1.393418.3.579.2.593 1953 Unknown [id number] 2.16.84 0.1.883364.3.579.2.593 1953 Unknown [id number] 2.16.84 0.1.857151.3.579.2.593 1953 Unknown [id number] 2.16.84 0.1.352830.3.579.2.593 1953 Unknown [id number] 2.16.84 0.1.210263.3.579.2.593 1953 Unknown [id number] 2.16.84 0.1.040481.3.579.2.593 1953 Unknown [id number] 2.16.84 0.1.377113.3.579.2.593 1953 Unknown [id number] 2.16.84 0.1.109887.3.579.2.593 1953 Unknown [id number] 2.16.84 0.1.602719.3.579.2.593 1953 Unknown [id number] 2.16.84 0.1.143960.3.579.2.593 1953 Unknown [id number] 2.16.84 0.1.913497.3.579.2.593 1953 Unknown [id number] 2.16.84 0.1.731909.3.579.2.593 1953 Unknown [id number] 2.16.84 0.1.731007.3.579.2.593 1953 Unknown [id number] 2.16.84 0.1.664561.3.579.2.593 1953 Unknown [id number] 2.16.84 0.1.573010.3.579.2.593 1953 Unknown [id number] 2.16.84 0.1.914522.3.579.2.593 1953 Unknown [id number] 2.16.84 0.1.678153.3.579.2.593 1953 Unknown [id number] 2.16.84 0.1.484665.3.579.2.593 1953 Unknown [id number] 2.16. 840.1.336013.3.579.2.196 1953 Unknown [id number] 2.16.8 40.1.894631.3.579.2.727 1953 Unknown [id number] 2.16.8 40.1.766474.3.579.2.727 Medicare [id number] Unknown [facility] [id number] Unknown [employer] BC/BS [id number] Unknown [id number] 2.16.8 40.1.179359.3.579.2.531 Social History Date Type Detail Facility Tobacco smoking stat [email or web address]IS Unknown if ever smoked [facility] Work Phone: Start: 1955 Sex Assigned At Female [facility] Start: 03-20-2024 Tobacco smoking status Ex-smoker (fi nding) [facility] Tobacco smoking status Never Fishe [facility] Sex Assigned At Female [facility] Functional Status Date Assessment Result Facility 03-20-2024 Functional Status N/A [facility] Clinical Notes 11-05-2021 to 03-20-2024 [...] 1 tab(s), Or (more content not included)... [facility] Comment on above: Result Comment: Elec tronically Signed By: SHASHA GRANT, Anderson Serrano.nigel\Date and Time Signed: 03/20/24 16:53 EDT 11-28-2023 Note [facility] Cardiology Clinic Note Chief Complaint: Patient [...] mouth in the morning., Disp: , Rfl: lgrlfhvcyd-ahkgkzrdoyvow-uyvo 50-325-40 mg tablet, Take 1 tablet by [...] sinus rhythm Echocar (more content not included)... [facility] 10-18-2023 Note [facility] Cardiology Clinic Note Chief Complaint: New patient here to establish care. Ref from Dr. Townsend for abnormal EKG. She also wore 7 day Holter monitor, and says she did not work while wearing this. She works at [employer] and says it's very fast paced. States she drinks a 5 Hour Energy shot almost every day. She was admitted to [facility] for migraine recently and was found to have abnormal EKG. Recently has noticed a twinge of chest pain. C/o DAI, palpitations, and lightheadedness. HPI: Mary Vick is a 68 y.o. female With a history of hypertension and hypothyroidism who presents due to an abnormal Holter monitor She was admitted to the [facility] for migraine; a monitor revealed both [...] Plan: Routine labs (more content not included)... [facility] 07-08-2022 Note CONSULTATION PROCEDURE DATE: 07/08/2022 [...] in the clinic in three months. [facility] 06-24-2022 Note CONSULTATION CONSULTATION DATE: 06/24/2022 [...] at a time, as she works at [employer]. Current medications include Percocet 5/325 daily, diclofenac [...] pending approval for her knee injections. [facility] 04-08-2022 Note CONSULTATION CONSULTATION DATE: 04/08/2022 [...] three months' time unless otherwise indicated. [facility] 03-09-2022 Note CONSULTATION CONSULTATION DATE: 03/09/2022 [...] to proceed. CC: Natividad Silva CNP [facility] 01-28-2022 Note CONSULTATION CONSULTATION DATE: 01/30/2022 [...] and re-evaluation of her bursa injection. [facility] 01-28-2022 Note CONSULTATION PROCEDURE DATE: 01/30/2022 [...] be followed up in the clinic. [facility] 11-12-2021 Note PROCEDURE: XR HIPS B [...] by: RAUDEL ESTRADA Date: 2021-11-12 07:50 [facility] 11-05-2021 Note CONSULTATION PROCEDURE DATE:11/05/2021 PREOPERATIVE [...] will be followed up in the office. [facility] Signed and Approved by: JOEL RAMON . 11/18/2021 16:24:00 [facility] 11-05-2021 Note CONSULTATION CONSULTATION DATE: 11/05/2021 [...] time, was working half a day at [employer] and since then has increased to full [...] in three months' time unless otherwise indicated. [facility] Signed and Approved by: JOEL RAMON . 11/18/2021 16:24:00 [facility] Evaluation + Plan note No data available for this section [facility] Evaluation note No assessment inform ation available [facility] Work Phone: Hospital Discharge instructions No data available for this section [facility] Progress note No data available for this section [facility] Summary Purpose Family History No Family [...] section and content) DATE CREATED AUTHOR 12/21/2017 [facility] DATE CREATED AUTHOR AUTHOR'S ORGANIZ ATION 05/01/2018 [facility] DATE CREATED AUTHOR AUTHOR'S ORGANIZ ATION 05/17/2022 [facility] DATE CREATED AUTHOR AUTHOR'S ORGANIZ ATION 10/06/2022 [facility] DATE CREATED AUTHOR AUTHOR'S ORGANIZ ATION 08/03/2023 [facility] DATE CREATED AUTHOR AUTHOR'S ORGANIZ ATION 11/28/2023 [facility] DATE CREATED AUTHOR AUTHOR'S ORGANIZ ATION 05/03/2024 [facility] Care Teams (unrecognized sec tion and [...] BE BASED ON THE PRIMARY CLINICAL RECORDS. [facility] [employer] [facility] provides no warranty or guarantee of the accuracy or completeness of information in this document.
[2024-06-06 14:20] LABS: Troponin I High Sensitivity 5.6 pg/mL (4.0-51.3)
[2024-06-06] MEDS: ACETAMINOPHEN 500 MG TABLET 1000 MG PO (15:54)
[2024-06-06] MEDS: IPRATROPIUM BROMIDE 0.5 MG/2.5 ML VIAL.NEB IH ×2 (16:08→22:37)
--- NOTE | 2024-06-06 17:32 | P.HP_ITS ---
HPI H&P: HPI History of Present Illness Chief complaint: FALL AT WORK, RIB FRACTURE, LIP LACERATION, L WRIS Narrative: Patient had a slip and fall, no syncope, no chest pain no shortness of breath prior to the fall, just slipped on a chunk of ice, did strike her face, she had a lip laceration that was repaired in the emergency room, CT scan of her chest showed possible pulmonary contusion, her BNP is normal she is not coughing it would be consistent with bronchitis or pneumonia but the haziness noted on CT scan, no hemoptysis so far, several rib fractures, and a left wrist fracture. When I saw patient up in the medical surgical floor, resting comfortably in bed, no cough throughout the evaluation, some shortness of breath due to pain with deep inspiration Opioid HPI Opioid Management Most Recent Pain and Opioid Data: Last Pain Scale 7 06/06/24 16:53 06/06/24 Last Pain Intensity 7 06/06/24 14:37 06/06/24 Last Pain Assessment 06/06/24 16:45 Last ED Pain Assessment 06/06/24 11:03 Last MAR Pain Assessment 06/06/24 16:53 Last ORT Total Score 10 06/06/24 13:35 06/06/24 Last ORT Risk Category High Risk 06/06/24 13:35 06/06/24 Review of Systems ROS Status of ROS 10 or more systems reviewed and unremark able except as noted in history and below [facility] Medical History (Updated 06/06/24 @ 17:36 by Travis Townsend MD) Macular degeneration ?H35.30 - Unspecified macular degeneration (ICD-10) Seasonal allergies ?J30.2 - Other seasonal allergic rhinitis (ICD-10) Anemia ?D64.9 - Anemia, unspecified (ICD-10) Lumbar radiculopathy ?M54.16 - Radiculopathy, lumbar region (ICD-10) Muscle spasm ?M62.838 - Other muscle spasm (ICD-10) Lumbar spondylosis ?M47.816 - Spondylosis without myelopathy or radiculopathy, lumbar region (ICD-10) Thoracic spondylosis ?M47.814 - Spondylosis without myelopathy or radiculopathy, thoracic region (ICD-10) Bilateral sacroiliitis ?M46.1 - Sacroiliitis, not elsewhere classified (ICD-10) Chronic, continuous use of opioids ?F11.90 - Opioid use, unspecified, uncomplicated (ICD-10) Greater trochanteric bursitis of both hips ?M70.61 - Trochanteric bursitis, right hip (ICD-10) ?M70.62 - Trochanteric bursitis, left hip (ICD-10) Encounter for long-term opiate analgesic use ?Z79.891 - halfway (current) use of opiate analgesic (ICD-10) Bilateral primary osteoarthritis of knee ?M17.0 - Bilateral primary osteoarthritis of knee (ICD-10) Acute opioid intoxication ?F11.929 - Opioid use, unspecified with intoxication, unspecified (ICD-10) Tubal ligation evaluation ?Z01.818 - Encounter for other preprocedural examination (ICD-10) Colonoscopy planned Headache, migraine ?G43.909 - Migraine, unspecified, not intractable, without status migrainosus (ICD-10) SVT (supraventricular tachycardia) ?I47.10 - Supraventricular tachycardia, unspecified (ICD-10) Screening for colorectal cancer ?Z12.11 - Encounter for screening for malignant neoplasm of colon (ICD-10) ?Z12.12 - Encounter for screening for malignant neoplasm of rectum (ICD-10) COPD (chronic obstructive pulmonary disease) ?J44.9 - Chronic obstructive pulmonary disease, unspecified (ICD-10) Migraine ?G43.909 - Migraine, unspecified, not intractable, without status migrainosus (ICD-10) Loud snoring ?R06.83 - Snoring (ICD-10) Osteoarthritis ?M19.90 - Unspecified osteoarthritis, unspecified site (ICD-10) Neck pain ?M54.2 - Cervicalgia (ICD-10) Bipolar 1 disorder ?F31.9 - Bipolar disorder, unspecified (ICD-10) Hearing deficit ?H91.90 - Unspecified hearing loss, unspecified ear (ICD-10) Anxiety ?F41.9 - Anxiety disorder, unspecified (ICD-10) Acid reflux ?K21.9 - Gastro-esophageal reflux disease without esophagitis (ICD-10) Obesity ?E66.9 - Obesity, unspecified (ICD-10) Hypothyroid ?E03.9 - Hypothyroidism, unspecified (ICD-10) Pulmonary hypertension ?I27.20 - Pulmonary hypertension, unspecified (ICD-10) Sleep apnea ?G47.30 - Sleep apnea, unspecified (ICD-10) High cholesterol ?E78.00 - Pure hypercholesterolemia, unspecified (ICD-10) Hypertension ?I10 - Essential (primary) hypertension (ICD-10) Surgical History (Updated 04/12/24 @ 14:31 by Maeve Gamino) H/O bilateral salpingo-oophorectomy ?Z90.79 - Acquired absence of other genital organ(s) (ICD-10) ?Z90.722 - Acquired absence of ovaries, bilateral (ICD-10) H/O dilation and curettage ?Z98.890 - Other specified postprocedural states (ICD-10) Cataract extraction status ?Z98.49 - Cataract extraction status, unspecified eye (ICD-10) H/O blepharoplasty ?Z98.890 - Other specified postprocedural states (ICD-10) History of mandibular surgery ?Z98.890 - Other specified postprocedural states (ICD-10) Hx of tubal ligation ?Z98.51 - Tubal ligation status (ICD-10) History of appendectomy ?Z90.49 - Acquired absence of other specified parts of digestive tract (ICD- 10) History of hysterectomy ?Z90.710 - Acquired absence of both cervix and uterus (ICD-10) Family History (Updated 04/12/24 @ 15:18 by Maeve Gamino) Mother Family history of cancer Sister Family history of cancer Other Delayed recovery from anesthesia Family history of breast cancer Family history of lung cancer Social History Within the past year, how often did you have a drink containing alcohol: never Score interpretation: A score less than 3 is consistent with normal alcohol consumption. Smoking status: Former smoker Non-prescribed substance use: denies use Previous occupational history: [employer] Highest level of school completed/degree received: 11th grade Are you now , , , , never or living with a partner: In a typical week, how many times do you talk on the telephone with family, friends, or neighbors: 3 or more times per week How often do you get together with friends or relatives: 3 or more times per week How often do you attend scientologist or judaism services: 4 or more times per year Do you belong to any clubs or organizations such as scientologist groups unions, fraternal or athletic groups, or school groups: no Total score: 2 Score interpretation: A score of greater than or equal to 2 indicates the lowest level of social isolation. Little interest or pleasure in doing things: not at all Feeling down, depressed, or hopeless: not at all Feel stressed/tense/nervous/anxious/difficulty sleeping: not at all Do you think of yourself as: straight/heterosexual Gender Identity: female Meds Home Medications and Allergies Home Medications ?Medication ?Instructions ?Recorded ?Confirmed ?Type albuterol sulfate 90 mcg/actuation 2 inh inhalation Q6H PRN shortness 10/21/22 06/06/24 History breath activated powder inhaler of breath or wheezing aripiprazole 30 mg tablet (Abilify) 30 mg PO QDAY 10/21/22 06/06/24 History diclofenac sodium 50 mg 50 mg PO BID 10/21/22 06/06/24 History tablet,delayed release ropinirole 1 mg tablet 1 mg PO QDAY PRN restless leg(s) 10/21/22 06/06/24 History levothyroxine 50 mcg tablet 50 mcg PO QDAY #30 tabs 09/17/23 06/06/24 Rx (Euthyrox) oxycodone-acetaminophen 5 mg-325 1 tab PO DAILY PRN pain #30 tabs 04/10/24 06/06/24 Rx mg tablet (Percocet) ferrous sulfate 325 mg (65 mg 325 mg PO DAILY 04/12/24 06/06/24 History iron) tablet (Holly-Time) fluticasone fur. 100 mcg-umeclid 1 inh inhalation DAILY 04/12/24 06/06/24 History 62.5 mcg-vilant 25 mcg inhalat.powder (Trelegy Ellipta) magnesium 250 mg tablet 250 mg PO DAILY 04/12/24 06/06/24 History vitamins A,C,U-lzim-kalmal 4,296 1 cap PO DAILY 04/12/24 06/06/24 History mcg-226 mg-90 mg capsule (PreserVision AREDS) amitriptyline 50 mg tablet 50 mg PO .qhs 06/06/24 06/06/24 History baclofen 5 mg tablet 5 mg PO QDAY PRN IF NEEDED FOR 06/06/24 06/06/24 History SKELETAL MUSCULAR PAIN fluoxetine 20 mg capsule 80 mg PO .QD 06/06/24 06/06/24 History liothyronine 5 mcg tablet 5 mcg PO .QD 06/06/24 06/06/24 History lisinopril 40 mg tablet 40 mg PO .QD 06/06/24 06/06/24 History omeprazole 20 mg capsule,delayed 20 mg PO BID 06/06/24 06/06/24 History release Allergies Allergy/AdvReac Type Severity Reaction Status Date / Time sumatriptan (From Imitrex) Allergy Severe Palpitation Verified 06/06/24 08:03 s Exam Constitutional Vital Signs, click to edit/add: Last Vital Signs Temp 97.6 F 06/06/24 13:35 Pulse 70 06/06/24 16:11 Resp 16 06/06/24 13:35 BP 128/81 06/06/24 13:35 Pulse Ox 92 L 06/06/24 16:11 O2 Del Method Room Air 06/06/24 16:11 Documenting provider has reviewed patient's vital signs: yes Common normals: no apparent distress Neck & C-Spine Common normals: full ROM and no lymphadenopathy Chest Common normals: inspection of chest normal; palpation of chest abnormal (Diffuse tenderness anterior chest wall, more prominent left-sided) Respiratory Common normals: no retractions and no use of accessory muscles; abnormal respiratory effort (Some staccato breathing) Auscultation: no rales and no rhonchi Cardio Common normals: regular rate and regular rhythm GI Common normals: Normal to inspection, nondistended, normoactive bowel sounds present and soft to palpation Extremity Common normals: abnormal to inspection (Left forearm in brace) Results Labs Labs: Short CBC 06/06/24 Range/Units 08:30 WBC 8.4 (4.0-11.0) 10^3/uL Hgb 11.4 L (12.0-16.0) g/dL Hct 35.9 L (36.0-48.0) % Plt Count 290 (150-450) 10^3/uL BMP 06/06/24 08:30 Sodium 142 Potassium 4.0 Chloride 105 Carbon Dioxide 27.9 BUN 15.0 Creatinine 1.08 H Glucose 93 Calcium 8.6 Liver Function 06/06/24 Range/Units 08:30 Total Bilirubin 0.3 (0.2-1.0) mg/dL AST 22 (15-37) U/L ALT 22 (14-59) U/L Alkaline Phosphatase 65 (46-116) U/L Albumin 3.3 L (3.4-5.0) g/dL Assessment and Plan Assessment and Plan (1) Fracture of wrist: (2) Laceration of lip: (3) Chin contusion: (4) Fall: (5) Closed rib fracture: (6) Bilateral pulmonary contusion: (7) COPD (chronic obstructive pulmonary disease): (8) Bipolar 1 disorder: (9) Obesity: (10) Hypothyroid: (11) Pulmonary hypertension: (12) Sleep apnea: (13) Hypertension: Plan Admission findings: Multiple rib fractures anterior chest, CT scan consistent with fluid, heart failure test is negative so more likely pulmonary contusion, uncontrolled hypertension on admission secondary to pain, secondary to falls resulting in rib fractures and left wrist fracture Multiple rib fractures-as significantly displaced, she does have palpable tenderness that would be consistent with her fractures, CT scan consistent with fluid, no recent viral or bacterial illness, no heart failure with BNP normal, so changes on CT scan more likely consistent with pulmonary contusion-patient high risk for hypoxemia and hemoptysis-aerosol treatments, incentive spirometer, close monitoring of vital signs Hypertension-uncontrolled on admission-so far better, continue with home medications Iron deficiency anemia-monitor daily GERD-continue with home medications Hypothyroidism-continue with home medications COPD-aerosol treatments, not in acute exacerbation by patient without cough Low back pain-continue with home medications Bipolar disorder-continue with home medications Admission status: Patient with significant fall with multiple rib fractures, CT scan consistent with pulmonary contusion, greater than 50% chance that medically necessary treatment will span 2 midnights. Inpatient status.
[2024-06-06] MEDS: OXYCODONE HCL/ACETAMINOPHEN 5MG/325MG 1 TAB PO ×2 (18:07→21:54)
[2024-06-06] MEDS: OMEPRAZOLE 20 MG CAPSULE.DR PO (20:41)
[2024-06-06] MEDS: DICLOFENAC SODIUM 25 MG TABLET.DR 50 MG PO (20:41)
[2024-06-06] MEDS: AMITRIPTYLINE HCL 50 MG TABLET PO (21:54)
[2024-06-07 01:35] LABS: Bilirubin Urine NEGATIVE (NEGATIVE); Blood Urine NEGATIVE (NEGATIVE); Clarity Urine CLEAR (CLEAR); Color Urine YELLOW (YELLOW); Glucose Urine UA NEGATIVE (NEGATIVE); Ketones Urine NEGATIVE (NEGATIVE); Leukocyte Esterase Urine NEGATIVE (NEGATIVE); Nitrite Urine NEGATIVE (NEGATIVE); Protein Urine NEGATIVE (NEG/TRACE); Specific Gravity Urine >=1.030 (1.005-1.025); Urobilinogen Urine 0.2 EU/dL (0.2-1.0); pH Urine 5.5 (5.0-9.0)
[2024-06-07 01:43] LABS: Bacteria Urine TRACE #/HPF (NONE SEEN); Mucus Urine NONE SEEN (NONE SEEN); RBC Urine 0-2 #/HPF (0-2); WBC Urine 0-2 #/HPF (NONE SEEN)
[2024-06-07 01:44] LABS: Calcium Oxalate Crystals Urine RARE; Cast Seen? NONE SEEN #/LPF (NONE SEEN); Crystals Seen? Seen #/HPF (None Seen); Squamous Epithelial Cell Urine MODERATE #/LPF (NONE/RARE)
[2024-06-07] MEDS: OXYCODONE HCL/ACETAMINOPHEN 5MG/325MG 1 TAB PO ×3 (02:03→09:56)
[2024-06-07 04:00] VITALS: BP 120/64; PULSE 62; TEMP 36.7; O2SAT 93
[2024-06-07 05:08] LABS: Basophils Absolute Auto 0.1 10^3/uL (0.0-0.1); Basophils Percent Auto 0.8 % (0.2-2.0); Eosinophils Absolute Auto 0.2 10^3/uL (0.0-0.7); Eosinophils Percent Auto 3.1 % (0.9-7.0); Hemoglobin 10.5 g/dL (12.0-16.0); Immature Granulocytes Abs Auto 0.05 10^3/uL (0.00-0.03); Immature Granulocytes Pct Auto 0.7 % (0.0-0.5); Lymphocytes Absolute Auto 1.4 10^3/uL (1.2-3.8); Mean Corpuscular HGB Conc 31.8 g/dL (29.9-35.2); Mean Corpuscular Hemoglobin 28.9 pg (26.7-34.0); Mean Corpuscular Volume 90.9 fL (81.0-99.0); Mean Platelet Volume 10.3 fL (9.5-13.5); Monocytes Absolute Auto 0.7 10^3/uL (0.3-0.8); Monocytes Percent Auto 9.7 % (1.7-12.0); Neutrophils Absolute Auto 5.1 10^3/uL (1.4-6.5); Neutrophils Percent Auto 67.7 % (43.0-75.0); Platelet Count 272 10^3/uL (150-450); Red Blood Count 3.63 10^6/uL (4.20-5.40); Red Cell Distribution Width 16.3 % (11.0-15.0); White Blood Count 7.5 10^3/uL (4.0-11.0)
[2024-06-07 05:26] LABS: Alanine Aminotransferase 15 U/L (14-59); Albumin Globulin Ratio 0.8; Albumin Level 2.7 g/dL (3.4-5.0); Alkaline Phosphatase 63 U/L (46-116); Anion Gap 10.9; Aspartate Amino Transferase 14 U/L (15-37); Bilirubin Total 0.3 mg/dL (0.2-1.0); Calcium 8.2 mg/dL (8.5-10.1); Carbon Dioxide 25.7 mmol/L (21.0-32.0); Chloride 105 mmol/L (98-107); Estimated GFR (African America >60 (>=60 mL/min/1.73m^2); Estimated GFR (Non-African Ame 59 (>=60 mL/min/1.73m^2); Globulin 3.2 g/dL; Glucose 122 mg/dL (74-106); Potassium 3.6 mmol/L (3.5-5.1); Sodium 138 mmol/L (136-145); Total Protein 5.9 g/dL (6.4-8.2)
--- NOTE | 2024-06-07 05:27 | P.ORCN_ITS ---
History of Present Illness HPI Consult date: 06/07/24 Chief complaint: FALL AT WORK, RIB FRACTURE, LIP LACERATION, L WRIS Narrative: Patient is a 68-year-old female that presented to the ED yesterday after a slip and fall at work on the ice. Patient was admitted to the hospital after CT scans revealed rib fractures with pulmonary contusions and a left wrist fracture. Orthopedics was consulted for a displaced distal radius fracture. Pain is controlled this morning. Patient denies any paresthesias to her left hand. [facility] Medical History (Updated 06/06/24 @ 17:36 by Travis Townsend MD) Macular degeneration ?H35.30 - Unspecified macular degeneration (ICD-10) Seasonal allergies ?J30.2 - Other seasonal allergic rhinitis (ICD-10) Anemia ?D64.9 - Anemia, unspecified (ICD-10) Lumbar radiculopathy ?M54.16 - Radiculopathy, lumbar region (ICD-10) Muscle spasm ?M62.838 - Other muscle spasm (ICD-10) Lumbar spondylosis ?M47.816 - Spondylosis without myelopathy or radiculopathy, lumbar region (ICD-10) Thoracic spondylosis ?M47.814 - Spondylosis without myelopathy or radiculopathy, thoracic region (ICD-10) Bilateral sacroiliitis ?M46.1 - Sacroiliitis, not elsewhere classified (ICD-10) Chronic, continuous use of opioids ?F11.90 - Opioid use, unspecified, uncomplicated (ICD-10) Greater trochanteric bursitis of both hips ?M70.61 - Trochanteric bursitis, right hip (ICD-10) ?M70.62 - Trochanteric bursitis, left hip (ICD-10) Encounter for long-term opiate analgesic use ?Z79.891 - long term acute care registered nurse (current) use of opiate analgesic (ICD-10) Bilateral primary osteoarthritis of knee ?M17.0 - Bilateral primary osteoarthritis of knee (ICD-10) Acute opioid intoxication ?F11.929 - Opioid use, unspecified with intoxication, unspecified (ICD-10) Tubal ligation evaluation ?Z01.818 - Encounter for other preprocedural examination (ICD-10) Colonoscopy planned Headache, migraine ?G43.909 - Migraine, unspecified, not intractable, without status migrainosus (ICD-10) SVT (supraventricular tachycardia) ?I47.10 - Supraventricular tachycardia, unspecified (ICD-10) Screening for colorectal cancer ?Z12.11 - Encounter for screening for malignant neoplasm of colon (ICD-10) ?Z12.12 - Encounter for screening for malignant neoplasm of rectum (ICD-10) COPD (chronic obstructive pulmonary disease) ?J44.9 - Chronic obstructive pulmonary disease, unspecified (ICD-10) Migraine ?G43.909 - Migraine, unspecified, not intractable, without status migrainosus (ICD-10) Loud snoring ?R06.83 - Snoring (ICD-10) Osteoarthritis ?M19.90 - Unspecified osteoarthritis, unspecified site (ICD-10) Neck pain ?M54.2 - Cervicalgia (ICD-10) Bipolar 1 disorder ?F31.9 - Bipolar disorder, unspecified (ICD-10) Hearing deficit ?H91.90 - Unspecified hearing loss, unspecified ear (ICD-10) Anxiety ?F41.9 - Anxiety disorder, unspecified (ICD-10) Acid reflux ?K21.9 - Gastro-esophageal reflux disease without esophagitis (ICD-10) Obesity ?E66.9 - Obesity, unspecified (ICD-10) Hypothyroid ?E03.9 - Hypothyroidism, unspecified (ICD-10) Pulmonary hypertension ?I27.20 - Pulmonary hypertension, unspecified (ICD-10) Sleep apnea ?G47.30 - Sleep apnea, unspecified (ICD-10) High cholesterol ?E78.00 - Pure hypercholesterolemia, unspecified (ICD-10) Hypertension ?I10 - Essential (primary) hypertension (ICD-10) Surgical History (Updated 04/12/24 @ 14:31 by Maeve Gamino) H/O bilateral salpingo-oophorectomy ?Z90.79 - Acquired absence of other genital organ(s) (ICD-10) ?Z90.722 - Acquired absence of ovaries, bilateral (ICD-10) H/O dilation and curettage ?Z98.890 - Other specified postprocedural states (ICD-10) Cataract extraction status ?Z98.49 - Cataract extraction status, unspecified eye (ICD-10) H/O blepharoplasty ?Z98.890 - Other specified postprocedural states (ICD-10) History of mandibular surgery ?Z98.890 - Other specified postprocedural states (ICD-10) Hx of tubal ligation ?Z98.51 - Tubal ligation status (ICD-10) History of appendectomy ?Z90.49 - Acquired absence of other specified parts of digestive tract (ICD- 10) History of hysterectomy ?Z90.710 - Acquired absence of both cervix and uterus (ICD-10) Family History (Updated 04/12/24 @ 15:18 by Maeve Gamino) Mother Family history of cancer Sister Family history of cancer Other Delayed recovery from anesthesia Family history of breast cancer Family history of lung cancer Social History Within the past year, how often did you have a drink containing alcohol: never Score interpretation: A score less than 3 is consistent with normal alcohol consumption. Smoking status: Former smoker Non-prescribed substance use: denies use Previous occupational history: [employer] Highest level of school completed/degree received: 11th grade Are you now , , , , never or living with a partner: In a typical week, how many times do you talk on the telephone with family, friends, or neighbors: 3 or more times per week How often do you get together with friends or relatives: 3 or more times per week How often do you attend protestant or mormon services: 4 or more times per year Do you belong to any clubs or organizations such as protestant groups unions, [employer] or athletic groups, or school groups: no Total score: 2 Score interpretation: A score of greater than or equal to 2 indicates the lowest level of social isolation. Little interest or pleasure in doing things: not at all Feeling down, depressed, or hopeless: not at all Feel stressed/tense/nervous/anxious/difficulty sleeping: not at all Do you think of yourself as: straight/heterosexual Gender Identity: female Meds Home Medications and Allergies Home Medications ?Medication ?Instructions ?Recorded ?Confirmed ?Type albuterol sulfate 90 mcg/actuation 2 inh inhalation Q6H PRN shortness 10/21/22 06/06/24 History breath activated powder inhaler of breath or wheezing aripiprazole 30 mg tablet (Abilify) 30 mg PO QDAY 10/21/22 06/06/24 History diclofenac sodium 50 mg 50 mg PO BID 10/21/22 06/06/24 History tablet,delayed release ropinirole 1 mg tablet 1 mg PO QDAY PRN restless leg(s) 10/21/22 06/06/24 History levothyroxine 50 mcg tablet 50 mcg PO QDAY #30 tabs 09/17/23 06/06/24 Rx (Euthyrox) oxycodone-acetaminophen 5 mg-325 1 tab PO DAILY PRN pain #30 tabs 04/10/24 06/06/24 Rx mg tablet (Percocet) ferrous sulfate 325 mg (65 mg 325 mg PO DAILY 04/12/24 06/06/24 History iron) tablet (Holly-Time) fluticasone fur. 100 mcg-umeclid 1 inh inhalation DAILY 04/12/24 06/06/24 History 62.5 mcg-vilant 25 mcg inhalat.powder (Trelegy Ellipta) magnesium 250 mg tablet 250 mg PO DAILY 04/12/24 06/06/24 History vitamins A,C,T-fdyq-jlwcpa 4,296 1 cap PO DAILY 04/12/24 06/06/24 History mcg-226 mg-90 mg capsule (PreserVision AREDS) amitriptyline 50 mg tablet 50 mg PO .qhs 06/06/24 06/06/24 History baclofen 5 mg tablet 5 mg PO QDAY PRN IF NEEDED FOR 06/06/24 06/06/24 History SKELETAL MUSCULAR PAIN fluoxetine 20 mg capsule 80 mg PO .QD 06/06/24 06/06/24 History liothyronine 5 mcg tablet 5 mcg PO .QD 06/06/24 06/06/24 History lisinopril 40 mg tablet 40 mg PO .QD 06/06/24 06/06/24 History omeprazole 20 mg capsule,delayed 20 mg PO BID 06/06/24 06/06/24 History release oxycodone-acetaminophen 5 mg-325 1 tab PO Q6H PRN pain 7 days #28 06/07/24 Rx mg tablet tabs Allergies Allergy/AdvReac Type Severity Reaction Status Date / Time sumatriptan (From Imitrex) Allergy Severe Palpitation Verified 06/06/24 08:03 s Exam Narrative Exam Narrative: On exam patient is laying in the bed alert and oriented x 3 and doing a breathing treatment, in no distress. Exam of the left wrist there is a splint in place, patient wiggles fingers, brisk capillary refill and sensation intact to all fingers and thumb with light touch. Constitutional Vital Signs, click to edit/add: Last Vital Signs Temp 98.1 F 06/07/24 04:00 Pulse 62 06/07/24 04:00 Resp 18 06/07/24 04:00 BP 120/64 06/07/24 04:00 Pulse Ox 93 L 06/07/24 04:00 O2 Del Method Room Air 06/07/24 04:00 Results Labs Labs: Abnormal lab results 06/06/24 06/07/24 06/07/24 Range/Units 08:30 01:15 04:39 RBC 3.97 L 3.63 L (4.20-5.40) 10^6/uL Hgb 11.4 L 10.5 L (12.0-16.0) g/dL Hct 35.9 L 33.0 L (36.0-48.0) % RDW 16.2 H 16.3 H (11.0-15.0) % Neut % (Auto) 76.7 H (43.0-75.0) % Lymph % (Auto) 11.7 L 18.0 L (20.5-60.0) % Lymph # (Auto) 1.0 L (1.2-3.8) 10^3/uL Abs Immat Gran (auto) 0.07 H 0.05 H (0.00-0.03) 10^3/uL Imm/Tot Granulo (auto) 0.8 H 0.7 H (0.0-0.5) % Creatinine 1.08 H (0.55-1.02) mg/dL Est GFR (Non-Af Amer) 50 L (>=60 mL/min/1.73m^2) Albumin 3.3 L (3.4-5.0) g/dL Ur Specific [place] >=1.030 A (1.005-1.025) Urine WBC 0-2 A (NONE SEEN) #/HPF Ur Squamous Epith Cells Moderate A (NONE/RARE) #/LPF Urine Crystals Seen A (None Seen) #/HPF Urine Bacteria Trace A (NONE SEEN) #/HPF H & H 06/06/24 06/07/24 Range/Units 08:30 04:39 Hgb 11.4 L 10.5 L (12.0-16.0) g/dL Hct 35.9 L 33.0 L (36.0-48.0) % Coagulation 06/06/24 Range/Units 08:30 INR 0.98 All other labs normal. Assessment and Plan Assessment and Plan (1) Fracture of wrist: Assessment and Plan: Left wrist pain after fall with displaced distal radius fracture -XR L Wrist reviewed that reveals an acute comminuted, intra-articular fracture of the distal radius with displacement and impaction -I discussed with patient that we recommend surgical fixation for her fracture given the displacement. Risks and benefits of a left distal radius ORIF were discussed with patient and she wishes to proceed. We would plan to do this Tue. Patient does not need to remain inpatient if ready for discharge prior to this. Discussed with my supervising physician, Dr. Torres (2) Laceration of lip: (3) Chin contusion: (4) Fall: (5) Closed rib fracture: (6) Bilateral pulmonary contusion:
[2024-06-07 05:33] VITALS: PULSE 72; O2SAT 92
[2024-06-07] MEDS: IPRATROPIUM BROMIDE 0.5 MG/2.5 ML VIAL.NEB IH ×2 (05:33→10:46)
[2024-06-07] MEDS: LEVOTHYROXINE SODIUM 25 MCG TABLET 50 MCG PO (06:05)
[2024-06-07 07:21] VITALS: BP 165/74; PULSE 59; TEMP 36.5; O2SAT 91
--- NOTE | 2024-06-07 07:58 | XR_ITS ---
[address] [address] Patient Name: MELANIE TOMPKINS MRN: [id number] date: 1955 Sex: F Assigned Patient Location: [place] Current Patient Location: [place] Accession/Order Number: [id number] Exam Date: 06/07/2024 08:45 Report Date: 06/07/2024 09:00 At the request of: LUISITO UMANA Procedure: XR chest 2V EXAMINATION: XR chest 2V HISTORY: hypoxia COMPARISON: TECHNIQUE: PA and lateral FINDINGS: LUNGS: No significant pulmonary parenchymal abnormalities. VASCULATURE: Mildly increased pulmonary vasculature. PLEURA: No pneumothorax, effusion, or pleural thickening. CARDIAC: Mild stable cardiomegaly. MEDIASTINUM: No visible mass or adenopathy. BONES: No fracture or visible bone lesion. OTHER: Large retrocardiac opacity with an air-fluid level consistent with a hiatal hernia XR/XR chest 2V IMPRESSION: Pulmonary vascular congestion Electronically authenticated by: ROBERT CONDON Date: 06/07/2024 09:00
--- NOTE | 2024-06-07 08:00 | P.DS_ITS ---
DS: Providers Provider Date of admission: 06/06/24 13:20 Primary care physician: POLO SILVA Consults: 06/06/24 13:41 Consult to Pharmacy Routine Consulting Provider: Reason for consultation: Please [place] me when Med Rec is Updated Has provider been notified: No Occupational Therapy Eval and Treat Routine Reason for consultation: Only if needed for Rehab Has provider been notified: No Physical Therapy Eval and Treat Routine Reason for consultation: Eval and Treat Has provider been notified: No 06/06/24 13:45 Consult to Orthopedic Surgery Routine Consulting Provider: Willi Torres Reason For Exam: Reason for consultation: osmany doesnt nuno to see unless feels surgery during the hospital is better Has provider been notified: No DS: Diagnosis Discharge Diagnosis (1) Fracture of wrist: (2) Laceration of lip: (3) Chin contusion: (4) Fall: (5) Closed rib fracture: (6) Bilateral pulmonary contusion: (7) COPD (chronic obstructive pulmonary disease): (8) Bipolar 1 disorder: (9) Obesity: (10) Hypothyroid: (11) Pulmonary hypertension: (12) Sleep apnea: (13) Hypertension: Plan Admission findings: Multiple rib fractures Left anterior chest, CT scan consistent with fluid, heart failure test is negative so more likely pulmonary contusion, uncontrolled hypertension on admission secondary to pain, secondary to falls resulting in rib fractures and left wrist fracture Multiple rib fractures-not significantly displaced, she does have palpable tenderness that would be consistent with her fractures, repeating x-ray prior to discharge Left forearm fracture-plan for surgery early next week Hypertension-uncontrolled on admission-stable Iron deficiency anemia-monitor daily GERD-continue with home medications Hypothyroidism-continue with home medications COPD-aerosol treatments, not in acute exacerbation by patient without cough Low back pain-continue with home medications Bipolar disorder-continue with home medications Admission status: Patient with significant fall with multiple rib fractures, CT scan consistent with pulmonary contusion, greater than 50% chance that medically necessary treatment will span 2 midnights. Inpatient status. DS: Summary Hospital Course Hospital Course: Patient was seen and evaluated status post fall with left wrist pain and chest wall pain and lip laceration, workup unremarkable other than left wrist fracture, reoccurrence of 2 rib fractures left-sided anterior chest, and the lip laceration. Chest x-ray consistent with fluid, BNP was normal, no infectious signs and white blood cell count normal, sodium changes on x-ray concerning for pulmonary contusion, patient did have a cough but no hemoptysis, some shortness of breath which is difficult to assess secondary to the chest wall pain, patient was placed inpatient status is likely progression to acute hypoxia, she is improved this morning. She did have some relative hypoxia with O2 sat of 92%, she does not feel any different with her shortness of breath, checking chest x- ray, if chest x-ray is clear and patient can ambulate without hypoxia she can be discharged to home in improving condition. Medications see list. Follow-up with PCP in the office within the next week. Surgery on Tuesday. Patient was placed inpatient status initially as it was highly likely medically necessary treatment will span 2 midnights with his significant pulmonary contusion on initial chest x-ray, however patient is much improved this morning did not progress to hypoxia so far,, maintain inpatient status,patient just improved much more rapidly than expected Time Spent with Patient Time attestation: Total time spent providing and/or coordinating discharge services: Exam Constitutional Vital Signs, click to edit/add: Last Vital Signs Temp 97.7 F 06/07/24 07:21 Pulse 59 L 06/07/24 07:21 Resp 16 06/07/24 07:21 BP 165/74 H 06/07/24 07:21 Pulse Ox 91 L 06/07/24 07:21 O2 Del Method Room Air 06/07/24 07:21 Documenting provider has reviewed patient's vital signs: yes Common normals: no apparent distress Neck & C-Spine Common normals: full ROM and no lymphadenopathy Chest Common normals: inspection of chest normal; palpation of chest abnormal (Diffuse tenderness anterior chest wall, more prominent left-sided) Respiratory Common normals: no retractions and no use of accessory muscles; abnormal respiratory effort (Some staccato breathing-from admission) Auscultation: no rales and no rhonchi Cardio Common normals: regular rate and regular rhythm GI Common normals: Normal to inspection, nondistended, normoactive bowel sounds present and soft to palpation Extremity Common normals: abnormal to inspection (Left forearm in brace) DS: Data Data Completed and Pending Labs on day of discharge: Labs from last 24 hours 06/07/24 06/07/24 06/06/24 04:39 01:15 08:30 WBC 7.5 8.4 RBC 3.63 L 3.97 L Hgb 10.5 L 11.4 L Hct 33.0 L 35.9 L MCV 90.9 90.4 MCH 28.9 28.7 MCHC 31.8 31.8 RDW 16.3 H 16.2 H Plt Count 272 290 MPV 10.3 10.1 Neut % (Auto) 67.7 76.7 H Lymph % (Auto) 18.0 L 11.7 L [place] % (Auto) 9.7 7.5 Eos % (Auto) 3.1 2.5 Baso % (Auto) 0.8 0.8 Neut # (Auto) 5.1 6.4 Lymph # (Auto) 1.4 1.0 L [place] # (Auto) 0.7 0.6 Eos # (Auto) 0.2 0.2 Baso # (Auto) 0.1 0.1 Abs Immat Gran (auto) 0.05 H 0.07 H Imm/Tot Granulo (auto) 0.7 H 0.8 H PT 10.4 INR 0.98 Sodium 138 142 Potassium 3.6 4.0 Chloride 105 105 Carbon Dioxide 25.7 27.9 Anion Gap 10.9 13.1 BUN 16.0 15.0 Creatinine 0.94 1.08 H Est GFR ( Amer) >60 >60 Est GFR (Non-Af Amer) 59 L 50 L BUN/Creatinine Ratio 17.0 13.9 Glucose 122 H 93 Calcium 8.2 L 8.6 Total Bilirubin 0.3 0.3 AST 14 L 22 ALT 15 22 Alkaline Phosphatase 63 65 Troponin I High Sens 5.6 NT-Pro-B Natriuret Pep 59.0 Total Protein 5.9 L 6.6 Albumin 2.7 L 3.3 L Globulin 3.2 3.3 Albumin/Globulin Ratio 0.8 1.0 Urine Color Yellow Urine Clarity Clear Urine pH 5.5 Ur Specific [place] >=1.030 A Urine Protein Negative Urine Glucose (UA) Negative Urine Ketones Negative Urine Occult Blood Negative Urine Nitrite Negative Urine Bilirubin Negative Urine Urobilinogen 0.2 Ur Leukocyte Esterase Negative Urine RBC 0-2 Urine WBC 0-2 A Ur Squamous Epith Cells Moderate A Urine Crystals Seen A Calcium Oxalate Crystal Rare Urine Bacteria Trace A Urine Casts None seen Urine Mucus None seen Discharge Plan Discharge Disposition: Home, Self-Care Condition: Fair Discharge Medications: New oxycodone-acetaminophen 5-325 mg Tablet 1 tab PO Q6H PRN (Reason: pain) 7 Days Qty: 28 0RF Continued aripiprazole [Abilify] 30 mg tablet 30 mg PO QDAY ropinirole 1 mg tablet 1 mg PO QDAY PRN (Reason: restless leg(s)) albuterol sulfate 90 mcg/actuation aerosol powdr breath activated 2 inh inhalation Q6H PRN (Reason: shortness of breath or wheezing) diclofenac sodium 50 mg tablet,delayed release (DR/EC) 50 mg PO BID levothyroxine [Euthyrox] 50 mcg tablet 50 mcg PO QDAY Qty: 30 11RF magnesium 250 mg tablet 250 mg PO DAILY ferrous sulfate [Holly-Time] 325 mg (65 mg iron) tablet 325 mg PO DAILY PreserVision AREDS 4,296 mcg-226 mg-90 mg capsule 1 cap PO DAILY Trelegy Ellipta 100-62.5-25 mcg blister with device 1 inh inhalation DAILY oxycodone-acetaminophen [Percocet] 5-325 mg tablet 1 tab PO DAILY PRN (Reason: pain) Qty: 30 0RF amitriptyline 50 mg tablet 50 mg PO .qhs lisinopril 40 mg tablet 40 mg PO .QD fluoxetine 20 mg capsule 80 mg PO .QD baclofen 5 mg tablet 5 mg PO QDAY PRN (Reason: IF NEEDED FOR SKELETAL MUSCULAR PAIN) liothyronine 5 mcg tablet 5 mcg PO .QD omeprazole 20 mg capsule,delayed release(DR/EC) 20 mg PO BID Print Language: Serbian Forms: Portal Instructions
[2024-06-07] MEDS: FERROUS SULFATE 325 MG TABLET PO (08:17)
[2024-06-07] MEDS: LISINOPRIL 20 MG TABLET 40 MG PO (08:17)
[2024-06-07] MEDS: OMEPRAZOLE 20 MG CAPSULE.DR PO (08:18)
[2024-06-07] MEDS: LIOTHYRONINE SODIUM 5 MCG TABLET PO (08:18)
[2024-06-07] MEDS: VITS A,C,E/LUTEIN/MINERALS 1 TABLET 1 TAB PO (08:18)
[2024-06-07] MEDS: FLUOXETINE HCL 20 MG CAPSULE 80 MG PO (08:18)
[2024-06-07] MEDS: ARIPIPRAZOLE 15 MG TABLET 30 MG PO (08:34)
[2024-06-07] MEDS: DICLOFENAC SODIUM 25 MG TABLET.DR 50 MG PO (08:35)
[2024-06-07 10:45] VITALS: PULSE 56; O2SAT 96
--- NOTE | 2024-06-11 15:33 | CM.DCFOLLOWU ---
06/11 1st attempt no answer
--- NOTE | 2024-06-12 15:28 | CM.DCFOLLOWU ---
2nd attempt 06/12/24, no answer
--- NOTE | 2024-06-13 14:57 | CM.DCFOLLOWU ---
3rd attempt. No answer
== END 2024-06-07 12:34 | disposition home or self-care (01) | DRG 184 ==
LOC: ER 12:37 → MS 13:27
PROVIDERS: Admitting Provider Family Medicine; Emergency Provider Emergency Medicine; PCP Nurse Practitioner Family; Visit Provider Family Medicine
DX: S22.42XA Multiple fractures of ribs, left side, initial encounter for closed fracture (principal); S27.322A Contusion of lung, bilateral, initial encounter; S52.572A Other intraarticular fracture of lower end of left radius, initial encounter for closed fracture; S52.612A Displaced fracture of left ulna styloid process, initial encounter for closed fracture; W00.0XXA Fall on same level due to ice and snow, initial encounter; I10 Essential (primary) hypertension; D50.9 Iron deficiency anemia, unspecified; K21.9 Gastro-esophageal reflux disease without esophagitis; E03.9 Hypothyroidism, unspecified; J44.9 Chronic obstructive pulmonary disease, unspecified; F31.9 Bipolar disorder, unspecified; Z87.891 Personal history of nicotine dependence; M81.0 Age-related osteoporosis without current pathological fracture; M54.50 Low back pain, unspecified; S01.511A Laceration without foreign body of lip, initial encounter; S00.83XA Contusion of other part of head, initial encounter; E78.00 Pure hypercholesterolemia, unspecified; Z90.722 Acquired absence of ovaries, bilateral; Z98.51 Tubal ligation status; Z90.710 Acquired absence of both cervix and uterus; E66.9 Obesity, unspecified; I27.20 Pulmonary hypertension, unspecified; G47.30 Sleep apnea, unspecified; R09.02 Hypoxemia; Z68.34 Body mass index [BMI] 34.0-34.9, adult
CPT/HCPCS: 12011; 29125; 36415; 70450; 70486; 71046; 71250; 72125; 73110; 80053; 81001; 83880; 84484; 85025; 85610; 94640; 94667; 94668; 94761; 96374; 96375; 96376; 97162; 97165; 99285; J1171; J3010

== ENCOUNTER 2024-06-11 08:37 | Outpatient (OUT) | payer MEDICARE, SELFPAY ==
--- OUTSIDE RECORDS SUMMARY | 2024-06-11 08:42 | XMS_ITS | CCD ---
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 Normal 0.0-0.9 [facility] Comment on above: Result Comment: Perf ormed at: BN Performed By: #### B LEAF BINNER, HSTROPN, CMP #### [facility] [address] [address] [address] Deborah Mohan Atypical pANCA 1:160 Critically high Neg:<1:20 [facility] Comment on above: Result Comment: The atypical pANCA pattern has been observed in a significant percentage of patients with ulcerative colitis, primary sclerosing cholangitis and autoimmune hepatitis. Performed at: CB Performed By: #### B LEAF BINNER, HSTROPN, CMP #### [facility] [address] [address] [address] Deborah Mohan Cytoplasmic (C-ANCA) <1:20 Normal Neg:<1:20 [facility] Comment on above: Result Comment: Perf ormed at: CB Performed By: #### B PHILLIP JONES CMP #### [facility] [address] [address] [address] Deborah Mohan Perinuclear (P-ANCA) <1:20 Normal Neg:<1:20 [facility] Comment on above: Result Comment: The presence of positive fluorescence exhibiting P-ANCA or C-ANCA patterns alone is not specific for the diagnosis of Marlin's Granulomatosis (WG) or microscopic polyangiitis. Decisions about treatment should not be based solely on ANCA IFA results. The [employer] ANCA [employer] Consensus recommends follow up testing of positive sera with both MA-3 and MPO-ANCA enzyme immunoassays. As many as 5% serum samples are positive only by EIA. Ref. AM J Clin Pathol 1999;111:507-513. Performed at: CB Performed By: #### B PHILLIP JONES CMP #### [facility] [address] [place] [address] Dr. Deborah Mohan ANTISCLERODERMA ABon 022 Antiscleroderma-70 Antibodies <0.2 Normal 0.0-0.9 [facility] Comment on above: Performed By: #### A NARF #### [facility] [address] [place] [address] CHEST WO CONon [...] incidental findings, as described above. Normal [facility] CYCLIC CITRULLINATED PEPTIDE AB (CCP)on 03-09-2022 CCP Antibodies IgG/IgA 6 units Normal 0-19 [facility] Comment on above: Result Comment: Nega tive <20 Weak positive 20 - 39 Moderate positive 40 - 59 Strong positive >59 Performed By: #### B LEAF BINNER, HSTROPN, CMP #### [facility] [address] [place], [place] [address] Dr. Deborah Mohan IGG SUBCLASSES (1-4) AND TOT Kade 03-09-2022 IgG, Subclass 1 448 mg/dL Normal 248-810 [facility] Comment on above: Performed By: #### B LEAF BINNER, HSTROPN, CMP #### [facility] [address] [id number] [address] Deborah Mohan IgG, Subclass 2 253 mg/dL Normal 130-555 [facility] Comment on above: Performed By: #### B LEAF BINNER, HSTROPN, CMP #### [facility] [address] [address] [address] Deborah Mohan IgG, Subclass 3 95 mg/dL Normal 15-102 [facility] Comment on above: Performed By: #### B LEAF BINNER, HSTROPN, CMP #### [facility] [address] [id number] [address] Deborah Mohan IgG, Subclass 4 10 mg/dL Normal 2-96 [facility] Comment on above: Performed By: #### B LEAF BINNER, HSTROPN, CMP #### [facility] [address] [place], [place] [address] Dr. Deboarh Mohan Immunoglobulin G, Qn, Serum 658 mg/dL Normal 586-1602 [facility] Comment on above: Performed By: #### B LEAF BINNER, HSTROPN, CMP #### [facility] [address] [id number] [address] Deborah Mohan IMMUNOGLOBULIN E, TOTALon Immunoglobulin E, Total 5 IU/mL Critically low 6-495 [facility] Comment on above: Performed By: #### I GETOT ####[facility] [address] [place], [place] [address]QjDr. Deborah Mohan MICHELL EIA W/REFLEX 5 BIOMARKER Son 03-08-2022 MICHELL Direct Negative Normal Negative [facility] Comment on above: Performed By: #### A NARF #### [facility] [address] [address] [address] Deborah Mohan ANGIOTENSION-CONVERTING ENZY ME (FRANCESCO)on 03-08-2022 FRANCESCO 32 U/L Normal 14-82 [facility] Comment on above: Performed By: #### A NGIOC ####[facility] [address] [address]DrAnkur Mohan ANTIGLOMERULAR BASEMENT MEMB ROMMEL ABSon 03-08-2022 Anti-GBM Antibodies <0.2 Normal 0.0-0.9 [facility] Comment on above: Performed By: #### A GBM #### [facility] [address] [address] [address] Deborah Mohan IMMUNOGLOBULIN IGA QUANTITIA VEon 03-06-2022 Immunoglobulin A, Qn, Serum 229 mg/dL Normal 87-352 [facility] Comment on above: Performed By: #### A NARF #### [facility] [address] [address] [address] Deborah Mohan IMMUNOGLOBULIN IGM QUANTITAT IVEon 03-06-2022 Immunoglobulin M, Qn, Serum 83 mg/dL Normal 26-217 [facility] Comment on above: Performed By: #### B LEAF BINNER, HSTROPN, CMP #### [facility] [address] [address] [address] Deborah Mohan RHEUMATOID FACTORon 03-06-20 22 RA Latex Turbid. 10.9 IU/mL Normal <14.0 [facility] Comment on above: Performed By: #### R F ####[facility] [address] [address]Dr. Deborah Mohan CREATININEon 03-05-2022 Creatinine [Mass/Vol] 1.38 mg/dL Critically high 0.55-1.02 [facility] Comment on above: Performed By: #### C MELVINA ####[facility] [address] [id number] Mohan EGFR-AF GRENADIAN 46 mL/min/1.73m2 Critically low >=60 [facility] Comment on above: Performed By: #### C MELVINA ####[facility] [address] [place], [place] [address]UhAnkur Mohan EGFR-NON AF GRENADIAN 38 mL/min/1.73m2 Critically low >=60 [facility] Comment on above: Performed By: #### C MELVINA ####[facility] [address] [place], [place] [address]OgDr. Deborah Mohan SED RATE WESTERGRENon 2021 SED RATE 92 mm/hr Critically high <=30 [facility] Comment on above: Performed By: #### B LEAF BINNER, HSTROPN, CMP #### [facility] [address] [place], [place] [address] Dr. Deborah Mohan XR DEXA BONE DENSITYon [...] by: ROBERT CONDON Date: 2022-03-05 16:56 Normal [facility] XR CHEST 1 Von 03-01-2022 XR CHEST [...] by: ROBERT NOVAK Date: 2022-02-28 22:27 Normal [facility] XR KNEE LUANA 4V or >on 2021 [...] RAUDEL ESTRADA Date: 2022-01-29 11:09 Normal [facility] CBC AUTO DIFFon 11-29-2021 BASO # 0.1 103/ul Normal 0.0-0.1 [facility] Comment on above: Performed By: #### C BC ####[facility] [address] [address]Dr. Deborah Mohan Basophils/100 WBC (Bld) 0.8 % Normal 0.2-2.0 [facility] Comment on above: Performed By: #### C BC ####[facility] [address] [address]Dr. Deborah Mohan EO # 0.3 103/ul Normal 0.0-0.7 [facility] Comment on above: Performed By: #### C BC ####[facility] [address] [address]Dr. Deborah Mohan Eosinophils/100 WBC (Bld) 2.2 % Normal 0.9-7.0 [facility] Comment on above: Performed By: #### C BC ####[facility] [address] [place], [place] [address]Dr. Deborah Mohan Erythrocyte distribution width (RBC) [Ratio] 21.2 % Critically high 11.0-15.0 [facility] Comment on above: Performed By: #### C BC ####[facility] [address] [place], [place] [address]Dr. Deborah Mohan Hematocrit (Bld) [Volume fraction] 33.2 % Critically low 36.0-48.0 [facility] Comment on above: Performed By: #### C BC ####[facility] [address] [place] [id number]. Deborah Mohan Hemoglobin (Bld) [Mass/Vol] 10.3 g/dL Critically low 12.0-16.0 [facility] Comment on above: Performed By: #### C BC ####[facility] [address] [place] [id number]. Deborah Mohan IG # 0.11 10e3/ul Critically high 0.00-0.03 [facility] [place] [facility] Comment on above: Performed By: #### C BC ####[facility] [address] [place] [phone]. Deborah Mohan IG % 0.9 % Critically high 0.0-0.5 [facility] Comment on above: Performed By: #### C BC ####[facility] [address] [address]Dr. Deborah Mohan LYMPH # 2.2 103/ul Normal 1.2-3.8 [facility] Comment on above: Performed By: #### C BC ####[facility] [address] [place] [id number]. Deborah Mohan Lymphocytes/100 WBC (Bld) 18.5 % Critically low 20.5-60.0 [facility] Comment on above: Performed By: #### C BC ####[facility] [address] [address]Dr. Deborah Mohan MANUAL DIFF REQ NO Normal [facility] Comment on above: Performed By: #### C BC ####[facility] [address] [place] [id number]. Deborah Mohan MCH (RBC) [Entitic mass] 26.3 pg Critically low 26.7-34.0 [facility] Comment on above: Performed By: #### C BC ####[facility] [address] [place] [phone]. Deborah Mohan MCHC (RBC) [Mass/Vol] 31.0 g/dL Normal 29.9-35.2 [facility] Comment on above: Performed By: #### C BC ####[facility] [address] [place] [phone]. Deborah Mohan MCV (RBC) [Entitic vol] 84.9 fL Normal 81.0-99.0 [facility] Comment on above: Performed By: #### C BC ####[facility] [address] [place] [phone]. Deborah Mohan MONO # 0.6 103/ul Normal 0.3-0.8 [facility] Comment on above: Performed By: #### C BC ####[facility] [address] [phone]. Deborah Mohan Monocytes/100 WBC (Bld) 5.3 % Normal 1.7-12.0 [facility] Comment on above: Performed By: #### C BC ####[facility] [address] [place], [place] [address]Dr. Deborah Mohan NEUT # 8.4 103/ul Critically high 1.4-6.5 [facility] Comment on above: Performed By: #### C BC ####[facility] [address] [place], [place] [address]Dr. Deborah Mohan Neutrophils/100 WBC (Bld) 72.3 % Normal 43.0-75.0 [facility] Comment on above: Performed By: #### C BC ####[facility] [address] [place], [place] [address]Dr. Deborah Mohan Platelet mean volume (Bld) [Entitic vol] 10.1 fL Normal 9.5-13.5 [facility] Comment on above: Performed By: #### C BC ####[facility] [address] [place] [phone]. Deborah Mohan PLT 351 103/ul Normal 150-450 [facility] Comment on above: Performed By: #### C BC ####[facility] [address] [place] [phone]. Deborah Mohan RBC 3.91 106/ul Critically low 4.20-5.40 [facility] Comment on above: Performed By: #### C BC ####[facility] [address] [place], [place] [address]JaAnkur Mohan WBC 11.6 103/ul Critically high 4.0-11.0 [facility] Comment on above: Performed By: #### C BC ####[facility] [address] [place], [place] [address]Ff. Deborah Mohan CTA CHEST WO W CONon [...] 2. Bilateral peripheral fibrosis and/or scarring with uzmv-hh-qzhbdyxp groundglass densities. The groundglass densities are slightly decreased compared to the prior scan. 3. Old calcified granulomas in the chest and abdomen. 4. Large hiatal hernia. 5. Moderate diffuse osteopenia. Electronically authenticated by: BERNARDO DENNY Date: 2021-11-29 20:31 Normal [facility] D-DIMERon 11-29-2021 D-DIMER 1.14 mg/L FEU Critically high <=0.59 [facility] Comment on above: Performed By: #### A NARF #### [facility] [address] [place] [address] Dr. Deborah Mohan D-DIMER COMMENTS SEE BELOW Normal [facility] Comment on above: Result Comment: [...] hospitalization. Performed By: #### A NARF #### [facility] [address] [place] [address] Dr. Deborah Mohan PROF CHEM 8 (BAS METB)on Anion gap [Moles/Vol] 11.7 mmol/L Normal [facility] Comment on above: Performed By: #### B KYLEE HSTROPN #### [facility] [address] [place] [address] Dr. Deborah Mohan Calcium [Mass/Vol] 8.7 mg/dL Normal 8.5-10.1 [facility] Comment on above: Performed By: #### B KYLEE HSTROPN #### [facility] [address] [place] [address] Dr. Deborah Mohan Chloride [Moles/Vol] 107 mmol/L Normal 98-107 [facility] Comment on above: Performed By: #### B KYLEE HSTROPN #### [facility] [address] [place] [address] Dr. Deborah Mohan CO2 [Moles/Vol] 25.3 mmol/L Normal 21.0-32.0 [facility] Comment on above: Performed By: #### B KYLEE, HSTROPN #### [facility] [address] [address] [address] Deborah Mohan Creatinine [Mass/Vol] 0.98 mg/dL Normal 0.55-1.02 [facility] Comment on above: Performed By: #### B KYLEE, HSTROPN #### [facility] [address] [address] [address] Deborah Mohan EGFR-AF GRENADIAN >60 Normal >=60 [facility] Comment on above: Performed By: #### B KYLEE, HSTROPN #### [facility] [address] [place] [address] Dr. Deborah Mohan EGFR-NON AF GRENADIAN 56 mL/min/1.73m2 Critically low >=60 [facility] Comment on above: Performed By: #### B KYLEE, HSTROPN #### [facility] [address] [place] [address] Dr. Deborah Mohan Glucose [Mass/Vol] 105 mg/dL Normal 74-106 [facility] Comment on above: Performed By: #### B KYLEE, HSTROPN #### [facility] [address] [place] [address] Dr. Deborah Mohan Potassium [Moles/Vol] 4.0 mmol/L Normal 3.5-5.1 [facility] Comment on above: Performed By: #### B KYLEE, HSTROPN #### [facility] [address] [place] [address] Dr. Deborah Mohan Sodium [Moles/Vol] 140 mmol/L Normal 136-145 [facility] Comment on above: Performed By: #### B KYLEE, HSTROPN #### [facility] [address] [place] [address] Dr. Deborah Mohan Urea nitrogen [Mass/Vol] 21.0 mg/dL Critically high 7.0-18.0 [facility] Comment on above: Performed By: #### B KYLEE, HSTROPN #### [facility] [address] [place], [place] [address] Dr. Deborah Mohan Urea nitrogen/Creatinine [Mass ratio] 21.4 mg/mg Normal [facility] Comment on above: Performed By: #### B KYLEE, HSTROPN #### [facility] [address] [address] [address] Deborah Mohan TROPONIN, HIGH SENSITIVITYon 11-29-2021 HSTROP 4.5 pg/mL Normal 4.0-51.3 [facility] Comment on above: Result Comment: CUT- OFF POINTS HAVE BEEN ESTABLISHED BASED ON THE FOURTH UNIVERSAL DEFINITIONS OF MYOCARDIAL INFARCTION. THE UPPER REFERENCE LIMIT (URL) OF TROPONIN, DEFINED THE 99TH PERCENTILE OF cTnI DISTRIBUTION IN A REFERENCE POPULATION, HAS BEEN CONFIRMED THE DECISION THRESHOLD FOR GA DIAGNOSIS. Performed By: #### H STROPN ####[facility] [id number] [place], [place] [address]NmDr. Deborah Mohan HSTROP 6.0 pg/mL Normal 4.0-51.3 [facility] Comment on above: Result Comment: CUT- OFF POINTS HAVE BEEN ESTABLISHED BASED ON THE FOURTH UNIVERSAL DEFINITIONS OF MYOCARDIAL INFARCTION. THE UPPER REFERENCE LIMIT (URL) OF TROPONIN, DEFINED THE 99TH PERCENTILE OF cTnI DISTRIBUTION IN A REFERENCE POPULATION, HAS BEEN CONFIRMED THE DECISION THRESHOLD FOR GA DIAGNOSIS. Performed By: #### B KYLEE, HSTROPN #### [facility] [address] [address] [address] Deborah Mohan XR CHEST 1 Von [...] KANDY BARRY Date: 2021-11-29 19:20 Normal [facility] XR LSPINE W_OBLS AND [...] by: RAUDEL ESTRADA Date: 2021-11-12 07:56 Normal [facility] CALCIUMon 11-11-2021 Calcium [Mass/Vol] 9.0 mg/dL Normal 8.5-10.1 [facility] Comment on above: Performed By: #### A NARF #### [facility] [address] [address] [address] Deborah Mohan CREATININEon 11-11-2021 Creatinine [Mass/Vol] 1.47 mg/dL Critically high 0.55-1.02 [facility] Comment on above: Performed By: #### A NARF #### [facility] [address] [address] [address] Deborah Mohan EGFR-AF GRENADIAN 43 mL/min/1.73m2 Critically low >=60 [facility] Comment on above: Performed By: #### A NARF #### [facility] [address] [address] [address] Deborah Mohan EGFR-NON AF GRENADIAN 35 mL/min/1.73m2 Critically low >=60 [facility] Comment on above: Performed By: #### A NARF #### [facility] [address] [place] [address] Dr. Deborah Mohan Vital Signs Date Time Vital Sign Value Performing Clinician Faci lity 03-20-2024 14:57-0400 Blood Pressure Location Anderson SHASHA [facility] [place] 03-20-2024 14:57-0400 Diastolic blood pressure 82 mm[Hg] Anderson NILL [facility] [place] 03-20-2024 14:57-0400 Heart rate 70 /min Anderson NILL [facility] [place] 03-20-2024 14:57-0400 Respiratory rate 16 /min Anderson NILL [facility] [place] 03-20-2024 14:57-0400 Systolic blood pressure 126 mm[Hg] Anderson NILL [facility] [place] Encounters Encounter Date Encounter Type Care Provider Facility Start: 04-25-2024 End: 04-25-2024 ambulatory Anderson Wiley RICHL Facility:CD:[id number] Start: 03-20-2024 End: 03-20-2024 ambulatory Luisito Townsend Facility: [place] Start: 03-20-2024 End: 03-20-2024 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 procedure Anderson VILLANUEVAL [facility] [place] Start: 02-10-2024 ambulatory Luisito Hoy Facility:[facility] Start: 11-28-2023 End: 11-28-2023 ambulatory [facility] Start: 10-18-2023 End: 10-18-2023 ambulatory [facility] Start: 08-01-2023 End: 08-02-2023 ambulatory [...] Start: 05-08-2022 End: 05-08-2022 ambulatory Clarita Nena Facility:[facility] Start: 05-08-2022 End: 05-08-2022 ambulatory [facility] SAWYER-C Clarita Nena Work Phone: [facility] Work Phone: Start: 05-08-2022 End: 05-08-2022 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 procedure COB SAWYER-C Clarita Nena Work Phone: [facility] [...] 04-01-2018 Emergency department patient visit BRANDON RUSSELL [facility] Start: 12-11-2017 End: 12-11-2017 Emergency department patient visit ROBERT HURLEY Facility:[facility] Procedures Date Procedure Procedure Detail Performing Clinician Start: 05-08-2022 Plain X-ray of left wrist [facility]WYER-C Clarita Blakeault Work Phone: Start: 05-08-2022 X-ray of left ankle [facility] SAWY[facility] -C Clarita Nena Work Phone: Start: 04-01-2018 [...] Date Payer Category Payer Unknown 2022 Medicare [id number] 2022 Self-pay 1959 Unknown [id number] 1955 Unknown [id number] 2.16.84 0.1.915776.3.579.2.593 1953 Unknown [id number] 2.16.84 0.1.174716.3.579.2.593 1953 Unknown [id number] 2.16.84 0.1.353012.3.579.2.593 1953 Unknown [id number] 2.16.84 0.1.804368.3.579.2.593 1953 Unknown [id number] 2.16.84 0.1.839240.3.579.2.593 1953 Unknown [id number] 2.16.84 0.1.022254.3.579.2.593 1953 Unknown [id number] 2.16.84 0.1.675998.3.579.2.593 1953 Unknown [id number] 2.16.84 0.1.814252.3.579.2.593 1953 Unknown [id number] 2.16.84 0.1.917049.3.579.2.593 1953 Unknown [id number] 2.16.84 0.1.592704.3.579.2.593 1953 Unknown [id number] 2.16.84 0.1.273372.3.579.2.593 1953 Unknown [id number] 2.16.84 0.1.219751.3.579.2.593 1953 Unknown [id number] 2.16.84 0.1.380772.3.579.2.593 1953 Unknown [id number] 2.16.84 0.1.855189.3.579.2.593 1953 Unknown [id number] 2.16.84 0.1.611344.3.579.2.593 1953 Unknown [id number] 2.16.84 0.1.507997.3.579.2.593 1953 Unknown [id number] 2.16.84 0.1.463818.3.579.2.593 1953 Unknown [id number] 2.16.84 0.1.882871.3.579.2.593 1953 Unknown [id number] 2.16.84 0.1.463725.3.579.2.593 1953 Unknown [id number] 2.16.84 0.1.864065.3.579.2.593 1953 Unknown [id number] 2.16.84 0.1.922094.3.579.2.593 1953 Unknown [id number] 2.16.84 0.1.681566.3.579.2.593 1953 Unknown [id number] 2.16. 840.1.547611.3.579.2.196 1955 Unknown [id number] 2.16.8 40.1.112614.3.579.2.727 1955 Unknown [id number] 2.16.8 40.1.247027.3.579.2.727 Medicare [id number] Unknown [facility] [id number] Unknown [employer] BC/BS [id number] Unknown [id number] 2.16.8 40.1.984767.3.579.2.531 Social History Date Type Detail Facility Tobacco smoking stat RUSTIS Unknown if ever smoked [facility] Work Phone: Start: 1955 Sex Assigned At Female [facility] Start: 03-20-2024 Tobacco smoking status Ex-smoker (fi nding) [facility] Tobacco smoking status Never [facility] Sex Assigned At Female [facility] Functional Status Date Assessment Result Facility 03-20-2024 Functional Status N/A [facility] Clinical Notes 11-05-2021 to 03-20-2024 Note [...] 1 tab(s), Or (more content not included)... [facility] Comment on above: Result Comment: Elec tronically Signed By: SHASHA GRANT, Anderson Serrano.nigel\Date and Time Signed: 03/20/24 16:53 EDT 11-28-2023 Note [facility] Cardiology Clinic Note Chief Complaint: Patient here [...] mouth in the morning., Disp: , Rfl: wbdrtrxnzj-tnioptfzjfyfy-sull 50-325-40 mg tablet, Take 1 tablet by [...] not included)... [facility] 10-18-2023 Note [facility] Cardiology Clinic Note Chief Complaint: New patient here to establish care. Ref from Dr. Townsend for abnormal EKG. She also wore 7 day Holter monitor, and says she did not work while wearing this. She works at [employer] and says it's very fast paced. States she drinks a 5 Hour [employer] shot almost every day. She was admitted to [facility] for migraine recently and was found to have abnormal EKG. Recently has noticed a twinge of chest pain. C/o DAI, palpitations, and lightheadedness. HPI: Mary Vick is a 68 y.o. female With a history of hypertension and hypothyroidism who presents due to an abnormal Holter monitor She was admitted to the [facility] for migraine; a monitor [...] in the clinic in three months. [facility] 06-24-2022 Note CONSULTATION CONSULTATION [...] at a time, as she works at [employer]. Current medications include Percocet 5/325 daily, diclofenac [...] pending approval for her knee injections. [facility] 04-08-2022 Note CONSULTATION CONSULTATION [...] three months' time unless otherwise indicated. [facility] 03-09-2022 Note CONSULTATION CONSULTATION [...] to proceed. CC: Natividad Silva CNP [facility] 01-28-2022 Note CONSULTATION CONSULTATION [...] and re-evaluation of her bursa injection. [facility] 01-28-2022 Note CONSULTATION PROCEDURE [...] be followed up in the clinic. [facility] 11-12-2021 Note PROCEDURE: XR [...] by: RAUDEL ESTRADA Date: 2021-11-12 07:50 [facility] 11-05-2021 Note CONSULTATION PROCEDURE [...] by: JOEL RAMON . 11/18/2021 16:24:00 [facility] 11-05-2021 [...] time, was working half a day at [employer] and since then has increased to full [...] by: JOEL RAMON . 11/18/2021 16:24:00 [facility] Evaluation + Plan note No data available for this section [facility] Evaluation note No assessment inform ation available [facility] Work Phone: Hospital Discharge instructions No data available for this section [facility] Progress note No data available for this section [facility] Summary Purpose Family History No Family History [...] section and content) DATE CREATED AUTHOR 12/21/2017 [facility] [place] [facility] DATE CREATED AUTHOR AUTHOR'S ORGANIZ ATION 05/01/2018 [facility] DATE CREATED AUTHOR AUTHOR'S ORGANIZ ATION 05/17/2022 [facility] DATE CREATED AUTHOR AUTHOR'S ORGANIZ ATION 10/06/2022 [facility] DATE CREATED AUTHOR AUTHOR'S ORGANIZ ATION 08/03/2023 [facility] DATE CREATED AUTHOR AUTHOR'S ORGANIZ ATION 11/28/2023 [facility] DATE CREATED AUTHOR AUTHOR'S ORGANIZ ATION 05/03/[address] [facility] Care Teams (unrecognized sec tion [...] BE BASED ON THE PRIMARY CLINICAL RECORDS. [facility] [employer] [facility]. provides no warranty or guarantee of the accuracy or completeness of information in this document.
== END 2024-06-11 08:38 | disposition home or self-care (01) ==
LOC: PST 08:37
PROVIDERS: PCP Nurse Practitioner Family; Visit Provider Orthopaedic Surgery
DX: Z01.818 Encounter for other preprocedural examination (principal); S52.592A Other fractures of lower end of left radius, initial encounter for closed fracture

== ENCOUNTER 2024-06-11 13:11 | Day surgery (SDC) | payer MEDICARE, SELFPAY ==
[2024-06-11] VITALS (8 sets, daily range): BP systolic 126–163; BP diastolic 47–78; PULSE 59–75; TEMP 36.1–36.2; O2SAT 92–98; BMI 35.5
--- NOTE | 2024-06-11 | FL_ITS ---
[address] [address] Patient Name: MELANIE TOMPKINS MRN: [id number] date: 1955 Sex: F Assigned Patient Location: SURGOUT Current Patient Location: Accession/Order Number: [id number] Exam Date: 06/11/2024 15:25 Report Date: 06/13/2024 07:28 At the request of: RAUDEL ROYAL Procedure: FL fluoroscopy <1hr NON-READ EXAM: FL fluoroscopy <1hr NON-READ HISTORY: TECHNIQUE: FINDINGS: Please see Operative Report. Electronically authenticated by: RADIOLOGIST NO Date: 06/13/2024 07:28
--- NOTE | 2024-06-11 13:15 | ECG_ITS ---
[facility] Test Date: 2024-06-11 Pat Name: MELANIE TOMPKINS Department: Room: - Gender: Female [employer]: : 1955 Requested By: [id number] Order Number: [id number] Reading MD: HAKEEM SEGURA Measurements Intervals [place] Rate: 57 P: 18 SC: 168 QRS: 1 QRSD: 93 T: 25 QT: 430 QTc: 421 Interpretive Statements SINUS BRADYCARDIA Compared to ECG 09/17/2022 11:07:43 Sinus rhythm no longer present Sinus arrhythmia no longer present Electronically Signed On 06-11-2024 17:57:02 EST by HAKEEM SEGURA
[2024-06-11 13:23] LABS: Basophils Absolute Auto 0.1 10^3/uL (0.0-0.1); Basophils Percent Auto 0.7 % (0.2-2.0); Eosinophils Absolute Auto 0.3 10^3/uL (0.0-0.7); Eosinophils Percent Auto 2.8 % (0.9-7.0); Hematocrit 37.3 % (36.0-48.0); Hemoglobin 11.9 g/dL (12.0-16.0); Immature Granulocytes Abs Auto 0.02 10^3/uL (0.00-0.03); Immature Granulocytes Pct Auto 0.2 % (0.0-0.5); Lymphocytes Absolute Auto 1.7 10^3/uL (1.2-3.8); Lymphocytes Percent Auto 18.8 % (20.5-60.0); Mean Corpuscular HGB Conc 31.9 g/dL (29.9-35.2); Mean Corpuscular Hemoglobin 28.5 pg (26.7-34.0); Mean Corpuscular Volume 89.4 fL (81.0-99.0); Mean Platelet Volume 10.3 fL (9.5-13.5); Monocytes Absolute Auto 0.6 10^3/uL (0.3-0.8); Neutrophils Absolute Auto 6.4 10^3/uL (1.4-6.5); Neutrophils Percent Auto 70.5 % (43.0-75.0); Platelet Count 299 10^3/uL (150-450); Red Blood Count 4.17 10^6/uL (4.20-5.40); Red Cell Distribution Width 15.8 % (11.0-15.0); White Blood Count 9.1 10^3/uL (4.0-11.0)
--- OUTSIDE RECORDS SUMMARY | 2024-06-11 13:34 | XMS_ITS | CCD ---
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 DEFINED THE 99TH PERCENTILE OF cTnI DISTRIBUTION IN A REFERENCE POPULATION, HAS BEEN CONFIRMED THE DECISION THRESHOLD FOR [place] DIAGNOSIS. Performed By: #### H DENIS, CMP ####[facility] [address] [place], [place] [address]Dr. Deborah Mohan XR CHEST 1 Von 04-07-2022 [...] ANDERSON ALMANZAR Date: 2022-04-07 03:11 Normal [facility] HEMOGLOBINon 03-12-2022 Hemoglobin (Bld) [Mass/Vol] 9.2 g/dL Critically low 12.0-16.0 [facility] Comment on above: Performed By: #### A NARF #### [facility] [address] [address] [address] Deborah Mohan ANTI NEUTROPHIL CYTOPLASMIC AB (ANCA) PRon 03-09-2022 Anti-MPO Antibodies <0.2 Normal 0.0-0.9 [facility] Comment on above: Result Comment: Perf ormed at: BN Performed By: #### B WELDING MACHINE OPERATOR ARC, HSTROPN, CMP #### [facility] [address] [address] [address] Deborah Mohan Anti-PR3 Antibodies <0.2 Normal 0.0-0.9 [facility] Comment on above: Result Comment: Perf ormed at: BN Performed By: #### B WELDING MACHINE OPERATOR ARC, HSTROPN, CMP #### [facility] [address] [address] [address] Deborah Mohan Atypical pANCA 1:160 Critically high Neg:<1:20 [facility] Comment on above: Result Comment: The atypical pANCA pattern has been observed in a significant percentage of patients with ulcerative colitis, primary sclerosing cholangitis and autoimmune hepatitis. Performed at: CB Performed By: #### B WELDING MACHINE OPERATOR ARC, HSTROPN, CMP #### [facility] [address] [address] [address] Deborah Mohan Cytoplasmic (C-ANCA) <1:20 Normal Neg:<1:20 [facility] Comment on above: Result Comment: Perf ormed at: CB Performed By: #### B PHILLIP JONES CMP #### [facility] [address] [address] [address] Deborah Mohan Perinuclear (P-ANCA) <1:20 Normal Neg:<1:20 [facility] Comment on above: Result Comment: The presence of positive fluorescence exhibiting P-ANCA or C-ANCA patterns alone is not specific for the diagnosis of Marlin's Granulomatosis (WG) or microscopic polyangiitis. Decisions about treatment should not be based solely on ANCA IFA results. The International ANCA [employer] Consensus recommends follow up testing of positive sera with both WA-3 and MPO-ANCA enzyme immunoassays. As many as 5% serum samples are positive only by EIA. Ref. AM J Clin Pathol 1999;111:507-513. Performed at: CB Performed By: #### B PHILLIP JONES CMP #### [facility] [address] [place] [address] Dr. Deborah Mohan ANTISCLERODERMA ABon 022 Antiscleroderma-70 Antibodies <0.2 Normal 0.0-0.9 [facility] Comment on above: Performed By: #### A NARF #### [facility] [address] [place] [address] CHEST WO CONon [...] incidental findings, as described above. Normal [facility] CYCLIC CITRULLINATED PEPTIDE AB (CCP)on 03-09-2022 CCP Antibodies IgG/IgA 6 units Normal 0-19 [facility] Comment on above: Result Comment: Nega tive <20 Weak positive 20 - 39 Moderate positive 40 - 59 Strong positive >59 Performed By: #### B WELDING MACHINE OPERATOR ARC, HSTROPN, CMP #### [facility] [address] [place], [place] [address] Dr. Deborah Mohan IGG SUBCLASSES (1-4) AND TOT Kade 03-09-2022 IgG, Subclass 1 448 mg/dL Normal 248-810 [facility] Comment on above: Performed By: #### B WELDING MACHINE OPERATOR ARC, HSTROPN, CMP #### [facility] [address] [id number] [address] Deborah Mohan IgG, Subclass 2 253 mg/dL Normal 130-555 [facility] Comment on above: Performed By: #### B WELDING MACHINE OPERATOR ARC, HSTROPN, CMP #### [facility] [address] [address] [address] Deborah Mohan IgG, Subclass 3 95 mg/dL Normal 15-102 [facility] Comment on above: Performed By: #### B WELDING MACHINE OPERATOR ARC, HSTROPN, CMP #### [facility] [address] [id number] Deborah Mohan IgG, Subclass 4 10 mg/dL Normal 2-96 [facility] Comment on above: Performed By: #### B WELDING MACHINE OPERATOR ARC, HSTROPN, CMP #### [facility] [address] [place], [place] [address] Dr. Deborah Mohan Immunoglobulin G, Qn, Serum 658 mg/dL Normal 586-1602 [facility] Comment on above: Performed By: #### B WELDING MACHINE OPERATOR ARC, HSTROPN, CMP #### [facility] [address] [id number] [address] Deborah Mohan IMMUNOGLOBULIN E, TOTALon Immunoglobulin E, Total 5 IU/mL Critically low 6-495 [facility] Comment on above: Performed By: #### I GETOT ####[facility] [address] [place], [place] [address]SqDr. Deborah Mohan MICHELL EIA W/REFLEX 5 BIOMARKER Son 03-08-2022 MICHELL Direct Negative Normal Negative [facility] Comment on above: Performed By: #### A NARF #### [facility] [address] [address] [address] Deborah Mohan ANGIOTENSION-CONVERTING ENZY ME (FRNACESCO)on 03-08-2022 FRANCESCO 32 U/L Normal 14-82 [facility] Comment on above: Performed By: #### A NGIOC ####[facility] [address] [address]DrAnkur Mohan ANTIGLOMERULAR BASEMENT MEMB ROMMEL ABSon 03-08-2022 Anti-GBM Antibodies <0.2 Normal 0.0-0.9 [place] Comment on above: Performed By: #### A GBM #### [facility] [address] [address] [address] Deborah Mohan IMMUNOGLOBULIN IGA QUANTITIA VEon 03-06-2022 Immunoglobulin A, Qn, Serum 229 mg/dL Normal 87-352 [facility] Comment on above: Performed By: #### A NARF #### [facility] [address] [address] [address] Deborah Mohan IMMUNOGLOBULIN IGM QUANTITAT IVEon 03-06-2022 Immunoglobulin M, Qn, Serum 83 mg/dL Normal 26-217 [facility] Comment on above: Performed By: #### B WELDING MACHINE OPERATOR ARC, HSTROPN, CMP #### [facility] [address] [address] [address] Deborah Mohan RHEUMATOID FACTORon 03-06-20 22 RA Latex Turbid. 10.9 IU/mL Normal <14.0 [facility] Comment on above: Performed By: #### R F ####[facility] [address] [address]Dr. Deborah Mohan CREATININEon 03-05-2022 Creatinine [Mass/Vol] 1.38 mg/dL Critically high 0.55-1.02 [facility] Comment on above: Performed By: #### C MELVINA ####[facility] [address] [id number] Mohan EGFR-AF PANAMANIAN 46 mL/min/1.73m2 Critically low >=60 [facility] Comment on above: Performed By: #### C MELVINA ####[facility] [address] [place], [place] [address]JoAnkur Mohan EGFR-NON AF PANAMANIAN 38 mL/min/1.73m2 Critically low >=60 [facility] Comment on above: Performed By: #### C MELVINA ####[facility] [address] [place], [place] [address]BeDr. Deborah Mohan SED RATE WESTERGRENon 2021 SED RATE 92 mm/hr Critically high <=30 [facility] Comment on above: Performed By: #### B WELDING MACHINE OPERATOR ARC, HSTROPN, CMP #### [facility] [address] [place], [place] [address] Dr. Deborah Mohan XR DEXA BONE DENSITYon [...] by: ROBERT CONDON Date: 2022-03-05 16:56 Normal [facility] XR CHEST 1 Von 03-01-2022 XR [...] by: ROBERT NOVAK Date: 2022-02-28 22:27 Normal [facility] XR KNEE LUANA 4V or >on [...] RAUDEL ESTRADA Date: 2022-01-29 11:09 Normal [facility] CBC AUTO DIFFon 11-29-2021 BASO # 0.1 103/ul Normal 0.0-0.1 [facility] Comment on above: Performed By: #### C BC ####[facility] [address] [address]Dr. Deborah Mohan Basophils/100 WBC (Bld) 0.8 % Normal 0.2-2.0 [facility] Comment on above: Performed By: #### C BC ####[facility] [address] [address]Dr. Deborah Mohan EO # 0.3 103/ul Normal 0.0-0.7 [facility] Comment on above: Performed By: #### C BC ####[facility] [address] [address]Dr. Deborah Mohan Eosinophils/100 WBC (Bld) 2.2 % Normal 0.9-7.0 [facility] Comment on above: Performed By: #### C BC ####[facility] [address] [place], [place] [address]Dr. Deborah Mohan Erythrocyte distribution width (RBC) [Ratio] 21.2 % Critically high 11.0-15.0 [facility] Comment on above: Performed By: #### C BC ####[facility] [address] [place], [place] [address]Dr. Deborah Mohan Hematocrit (Bld) [Volume fraction] 33.2 % Critically low 36.0-48.0 [facility] Comment on above: Performed By: #### C BC ####[facility] [address] [id number]. Deborah Mohan Hemoglobin (Bld) [Mass/Vol] 10.3 g/dL Critically low 12.0-16.0 [facility] Comment on above: Performed By: #### C BC ####[facility] [address] [id number]. Deborah Mohan IG # 0.11 10e3/ul Critically high 0.00-0.03 [facility] Comment on above: Performed By: #### C BC ####[facility] [address] [id number]. Deborah Mohan IG % 0.9 % Critically high 0.0-0.5 [facility] Comment on above: Performed By: #### C BC ####[facility] [address] [address]Dr. Deborah Mohan LYMPH # 2.2 103/ul Normal 1.2-3.8 [facility] Comment on above: Performed By: #### C BC ####[facility] [address] [id number]. Deborah Mohan Lymphocytes/100 WBC (Bld) 18.5 % Critically low 20.5-60.0 [facility] Comment on above: Performed By: #### C BC ####[facility] [address] [address]Dr. Deborah Mohan MANUAL DIFF REQ NO Normal [facility] Comment on above: Performed By: #### C BC ####[facility] [address] [id number]. Deborah Mohan MCH (RBC) [Entitic mass] 26.3 pg Critically low 26.7-34.0 [facility] Comment on above: Performed By: #### C BC ####[facility] [address] [id number]. Deborah Mohan MCHC (RBC) [Mass/Vol] 31.0 g/dL Normal 29.9-35.2 [facility] Comment on above: Performed By: #### C BC ####[facility] [address] [place] [id number]. Deborah Mohan MCV (RBC) [Entitic vol] 84.9 fL Normal 81.0-99.0 [facility] Comment on above: Performed By: #### C BC ####[facility] [address] [id number]. Deborah Mohan MONO # 0.6 103/ul Normal 0.3-0.8 [facility] Comment on above: Performed By: #### C BC ####[facility] [address] [id number]. Deborah Mohan Monocytes/100 WBC (Bld) 5.3 % Normal 1.7-12.0 [facility] Comment on above: Performed By: #### C BC ####[facility] [address] [place], [place] [address]Dr. Deborah Mohan NEUT # 8.4 103/ul Critically high 1.4-6.5 [facility] Comment on above: Performed By: #### C BC ####[facility] [address] [place], [place] [address]Dr. Deborah Mohan Neutrophils/100 WBC (Bld) 72.3 % Normal 43.0-75.0 [facility] Comment on above: Performed By: #### C BC ####[facility] [address] [place], [place] [address]Dr. Deborah Mohan Platelet mean volume (Bld) [Entitic vol] 10.1 fL Normal 9.5-13.5 [facility] Comment on above: Performed By: #### C BC ####[facility] [address] [id number]. Deborah Mohan PLT 351 103/ul Normal 150-450 [facility] Comment on above: Performed By: #### C BC ####[facility] [address] [id number]. Deborah Mohan RBC 3.91 106/ul Critically low 4.20-5.40 [facility] Comment on above: Performed By: #### C BC ####[facility] [address] [place], [place] [address]AgAnkur Mohan WBC 11.6 103/ul Critically high 4.0-11.0 [facility] Comment on above: Performed By: #### C BC ####[facility] [address] [place], [place] [address]Rr. Deborah Mohan CTA CHEST WO W CONon [...] 2. Bilateral peripheral fibrosis and/or scarring with zejf-ek-qptyquxf groundglass densities. The groundglass densities are slightly decreased compared to the prior scan. 3. Old calcified granulomas in the chest and abdomen. 4. Large hiatal hernia. 5. Moderate diffuse osteopenia. Electronically authenticated by: BERNARDO DENNY Date: 2021-11-29 20:31 Normal [facility] D-DIMERon 11-29-2021 D-DIMER 1.14 mg/L FEU Critically high <=0.59 [facility] Comment on above: Performed By: #### A NARF #### [facility] [address] [place] [address] Dr. Deborah Mohan D-DIMER COMMENTS SEE BELOW Normal [facility] Comment on above: Result [...] hospitalization. Performed By: #### A NARF #### [facility] [address] [place] [address] Dr. Deborah Mohan PROF CHEM 8 (BAS METB)on Anion gap [Moles/Vol] 11.7 mmol/L Normal [facility] Comment on above: Performed By: #### B KYLEE HSTROPN #### [facility] [address] [place] [address] Dr. Deborah Mohan Calcium [Mass/Vol] 8.7 mg/dL Normal 8.5-10.1 [facility] Comment on above: Performed By: #### B KYLEE HSTROPN #### [facility] [address] [place] [address] Dr. Deborah Mohan Chloride [Moles/Vol] 107 mmol/L Normal 98-107 [facility] Comment on above: Performed By: #### B KYLEE HSTROPN #### [facility] [address] [place] [address] Dr. Deborah Mohan CO2 [Moles/Vol] 25.3 mmol/L Normal 21.0-32.0 [facility] Comment on above: Performed By: #### B KYLEE, HSTROPN #### [facility] [address] [address] [address] Deborah Mohan Creatinine [Mass/Vol] 0.98 mg/dL Normal 0.55-1.02 [facility] Comment on above: Performed By: #### B KYLEE, HSTROPN #### [facility] [address] [address] [address] Deborah Mohan EGFR-AF PANAMANIAN >60 Normal >=60 [facility] Comment on above: Performed By: #### B KYLEE, HSTROPN #### [facility] [address] [place] [address] Dr. Deborah Mohan EGFR-NON AF PANAMANIAN 56 mL/min/1.73m2 Critically low >=60 [facility] Comment on above: Performed By: #### B KYLEE, HSTROPN #### [facility] [address] [place] [address] Dr. Deborah Mohan Glucose [Mass/Vol] 105 mg/dL Normal 74-106 [facility] Comment on above: Performed By: #### B KYLEE, HSTROPN #### [facility] [address] [place] [address] Dr. Deborah Mohan Potassium [Moles/Vol] 4.0 mmol/L Normal 3.5-5.1 [facility] Comment on above: Performed By: #### B KYLEE, HSTROPN #### [facility] [address] [place] [address] Dr. Deborah Mohan Sodium [Moles/Vol] 140 mmol/L Normal 136-145 [facility] Comment on above: Performed By: #### B KYLEE, HSTROPN #### [facility] [address] [place] [address] Dr. Deborah Mohan Urea nitrogen [Mass/Vol] 21.0 mg/dL Critically high 7.0-18.0 [facility] Comment on above: Performed By: #### B KYLEE, HSTROPN #### [facility] [address] [place], [place] [address] Dr. Deborah Mohan Urea nitrogen/Creatinine [Mass ratio] 21.4 mg/mg Normal [facility] Comment on above: Performed By: #### B KYLEE, HSTROPN #### [facility] [address] [address] [address] Deborah Mohan TROPONIN, HIGH SENSITIVITYon 11-29-2021 HSTROP 4.5 pg/mL Normal 4.0-51.3 [facility] Comment on above: Result Comment: CUT- OFF POINTS HAVE BEEN ESTABLISHED BASED ON THE FOURTH UNIVERSAL DEFINITIONS OF MYOCARDIAL INFARCTION. THE UPPER REFERENCE LIMIT (URL) OF TROPONIN, DEFINED THE 99TH PERCENTILE OF cTnI DISTRIBUTION IN A REFERENCE POPULATION, HAS BEEN CONFIRMED THE DECISION THRESHOLD FOR [place] DIAGNOSIS. Performed By: #### H STROPN ####[facility] [address] [place], [place] [address]BtDr. Deborah Mohan HSTROP 6.0 pg/mL Normal 4.0-51.3 [facility] Comment on above: Result Comment: CUT- OFF POINTS HAVE BEEN ESTABLISHED BASED ON THE FOURTH UNIVERSAL DEFINITIONS OF MYOCARDIAL INFARCTION. THE UPPER REFERENCE LIMIT (URL) OF TROPONIN, DEFINED THE 99TH PERCENTILE OF cTnI DISTRIBUTION IN A REFERENCE POPULATION, HAS BEEN CONFIRMED THE DECISION THRESHOLD FOR [place] DIAGNOSIS. Performed By: #### B KYLEE, HSTROPN #### [facility] [address] [address] [address] Deborah Mohan XR CHEST 1 Von [...] KANDY BARRY Date: 2021-11-29 19:20 Normal [facility] XR LSPINE W_OBLS AND FLEX_EX Ton [...] by: RAUDEL ESTRADA Date: 2021-11-12 07:56 Normal [facility] CALCIUMon 11-11-2021 Calcium [Mass/Vol] 9.0 mg/dL Normal 8.5-10.1 [facility] Comment on above: Performed By: #### A NARF #### [facility] [address] [address] [address] Deborah Mohan CREATININEon 11-11-2021 Creatinine [Mass/Vol] 1.47 mg/dL Critically high 0.55-1.02 [facility] Comment on above: Performed By: #### A NARF #### [facility] [address] [address] [address] Deborah Mohan EGFR-AF PANAMANIAN 43 mL/min/1.73m2 Critically low >=60 [facility] Comment on above: Performed By: #### A NARF #### [facility] [address] [address] [address] Deborah Mohan EGFR-NON AF PANAMANIAN 35 mL/min/1.73m2 Critically low >=60 [facility] Comment on above: Performed By: #### A NARF #### [facility] [address] [place] [address] Dr. Deborah Mohan Vital Signs Date Time Vital Sign Value Performing Clinician Faci lity 03-20-2024 14:57-0400 Blood Pressure Location Anderson SHASHA [facility] [place] 03-20-2024 14:57-0400 Diastolic blood pressure 82 mm[Hg] Anderson NILL [facility] [place] 03-20-2024 14:57-0400 Heart rate 70 /min Anderson NILL [facility] [place] 03-20-2024 14:57-0400 Respiratory rate 16 /min Anderson NILL [facility] [place] 03-20-2024 14:57-0400 Systolic blood pressure 126 mm[Hg] Anderson NILL [facility] [place] Encounters Encounter Date Encounter Type Care Provider Facility Start: 04-25-2024 End: 04-25-2024 ambulatory Anderson Wiley RICHL Facility:CD:[id number] Start: 03-20-2024 End: 03-20-2024 ambulatory Luisito Townsend Facility: [place] Start: 03-20-2024 End: 03-20-2024 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 procedure Anderson VILLANUEVAL [facility] [place] Start: 02-10-2024 ambulatory Luisito Hoy Facility:[facility] Start: 11-28-2023 End: 11-28-2023 ambulatory [facility] Start: 10-18-2023 End: 10-18-2023 ambulatory [facility] Start: 08-01-2023 End: 08-02-2023 ambulatory Gabriella Woodruff MD Facility:[facility] Start: 10-05-2022 End: 10-06-2022 ambulatory NARENDRANATH LAKSHMIPATHY . Facility: Start: 09-17-2022 End: 09-17-[address] INGRID ESPINAL Facility:[facility] Start: 08-26-2022 ambulatory NARENDRANATH LAKSHMIPATHY . Facility:[facility] Start: 08-24-2022 End: 08-24-2022 ambulatory NATIVIDAD RICARDO Facility:[facility] Start: 07-08-2022 End: 07-09-2022 ambulatory JOEL ARMON . Facility:[facility] Start: 07-06-2022 End: 07-07-2022 ambulatory NATIVIDAD RICARDO Facility:[facility] Start: 06-24-2022 End: 06-25-2022 ambulatory JOEL RAMON . Facility:[facility] Start: 05-21-2022 ambulatory NATIVIDAD RICARDO Facility: [facility] Start: 05-08-2022 End: 05-08-2022 ambulatory Clarita Nena Facility:[facility] Start: 05-08-2022 End: 05-08-2022 ambulatory SHAKER SCREEN OPERATOR-C Clarita Nena Work Phone: [facility] Work Phone: Start: 05-08-2022 End: 05-08-2022 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 procedure SHAKER SCREEN OPERATOR-C Clarita Nena Work Phone: [facility] Start: 04-08-2022 End: [...] 04-01-2018 Emergency department patient visit BRANDON RUSSELL [facility] Start: 12-11-2017 End: 12-11-2017 Emergency department patient visit ROBERT HURLEY Facility:[facility] Procedures Date Procedure Procedure Detail Performing Clinician Start: 05-08-2022 Plain X-ray of left wrist SHAKER SCREEN OPERATOR-C Clarita Blakeault Work Phone: Start: 05-08-2022 X-ray of left ankle SHAKER SCREEN OPERATOR -C Clarita Nena Work Phone: Start: 04-01-2018 [...] Date Payer Category Payer Unknown 2022 Medicare [id number] 2022 Self-pay 1959 Unknown [id number] 1953 Unknown [id number] 2.16.84 0.1.802213.3.579.2.593 1953 Unknown [id number] 2.16.84 0.1.572222.3.579.2.593 1953 Unknown [id number] 2.16.84 0.1.176375.3.579.2.593 1953 Unknown [id number] 2.16.84 0.1.702697.3.579.2.593 1953 Unknown [id number] 2.16.84 0.1.995703.3.579.2.593 1953 Unknown [id number] 2.16.84 0.1.126278.3.579.2.593 1953 Unknown [id number] 2.16.84 0.1.217030.3.579.2.593 1953 Unknown [id number] 2.16.84 0.1.197913.3.579.2.593 1953 Unknown [id number] 2.16.84 0.1.297178.3.579.2.593 1953 Unknown [id number] 2.16.84 0.1.452462.3.579.2.593 1953 Unknown [id number] 2.16.84 0.1.749744.3.579.2.593 1953 Unknown [id number] 2.16.84 0.1.156254.3.579.2.593 1953 Unknown [id number] 2.16.84 0.1.868785.3.579.2.593 1953 Unknown [id number] 2.16.84 0.1.241571.3.579.2.593 1953 Unknown [id number] 2.16.84 0.1.151892.3.579.2.593 1953 Unknown [id number] 2.16.84 0.1.585225.3.579.2.593 1953 Unknown [id number] 2.16.84 0.1.446489.3.579.2.593 1953 Unknown [id number] 2.16.84 0.1.889500.3.579.2.593 1953 Unknown [id number] 2.16.84 0.1.414117.3.579.2.593 1953 Unknown [id number] 2.16.84 0.1.946024.3.579.2.593 1953 Unknown [id number] 2.16.84 0.1.572510.3.579.2.593 1953 Unknown [id number] 2.16.84 0.1.563441.3.579.2.593 1953 Unknown [id number] 2.16. 840.1.710736.3.579.2.196 1953 Unknown [id number] 2.16.8 40.1.806650.3.579.2.727 1953 Unknown [id number] 2.16.8 40.1.639334.3.579.2.727 Medicare [id number] Unknown [facility] [id number] Unknown [employer] [id number] Unknown [id number] 2.16.8 40.1.063868.3.579.2.531 Social History Date Type Detail [facility] Work Phone: Start: 1955 Sex Assigned At Female [facility] Start: 03-20-2024 Tobacco smoking status Ex-smoker (fi nding) [facility] Tobacco smoking status Never [facility] Sex Assigned At Female [facility] Functional Status Date Assessment Result Facility 03-20-2024 Functional Status N/A [facility] Clinical Notes 11-05-2021 to 03-20-2024 Note [...] Dilation and curettage, Dilation and curettage, Mandible, AIRES BSO - Total abdominal hysterectomy and bilateral [...] 1 tab(s), Or (more content not included)... [facility] Comment on above: Result Comment: Elec tronically Signed By: SHASHA GRANT, Anderson Serrano.nigel\Date and Time Signed: 03/20/24 16:53 EDT 11-28-2023 Note [facility] Cardiology Clinic Note Chief Complaint: Patient [...] mouth in the morning., Disp: , Rfl: czhrsmvdkw-yesxdwpwfgrtv-dzys 50-325-40 mg tablet, Take 1 tablet by [...] sinus rhythm Echocar (more content not included)... [facility] 10-18-2023 Note [facility] Cardiology Clinic Note Chief Complaint: New patient here to establish care. Ref from Dr. Townsend for abnormal EKG. She also wore 7 day Holter monitor, and says she did not work while wearing this. She works at [employer] and says it's very fast paced. States she drinks a 5 [employer] shot almost every day. She was admitted to [facility] for migraine recently and was found to have abnormal EKG. Recently has noticed a twinge of chest pain. C/o DAI, palpitations, and lightheadedness. HPI: Mary Vick is a 68 y.o. female With a history of hypertension and hypothyroidism who presents due to an abnormal Holter monitor She was admitted to the [facility] for migraine; a monitor revealed both [...] Plan: Routine labs (more content not included)... [facility] 07-08-2022 Note CONSULTATION PROCEDURE DATE: 07/08/2022 [...] in the clinic in three months. [facility] 06-24-2022 Note CONSULTATION CONSULTATION DATE: 06/24/2022 [...] at a time, as she works at [employer]. Current medications include Percocet 5/325 daily, diclofenac [...] pending approval for her knee injections. [facility] 04-08-2022 Note CONSULTATION CONSULTATION DATE: 04/08/2022 [...] three months' time unless otherwise indicated. [facility] 03-09-2022 Note CONSULTATION CONSULTATION DATE: 03/09/2022 [...] to proceed. CC: Natividad Silva CNP [facility] 01-28-2022 Note CONSULTATION CONSULTATION DATE: 01/30/2022 [...] and re-evaluation of her bursa injection. [facility] 01-28-2022 Note CONSULTATION PROCEDURE DATE: 01/30/2022 [...] be followed up in the clinic. [facility] 11-12-2021 Note PROCEDURE: XR HIPS B [...] by: RAUDEL ESTRADA Date: 2021-11-12 07:50 [facility] 11-05-2021 Note CONSULTATION PROCEDURE DATE:11/05/2021 PREOPERATIVE [...] will be followed up in the office. [facility] Signed and Approved by: JOEL RAMON . 11/18/2021 16:24:00 [facility] 11-05-2021 Note CONSULTATION CONSULTATION DATE: 11/05/2021 [...] time, was working half a day at [employer] and since then has increased to full [...] in three months' time unless otherwise indicated. [facility] Signed and Approved by: JOEL RAMON . 11/18/2021 16:24:00 [facility] Evaluation + Plan note No data available for this section [facility] Evaluation note No assessment inform ation available [facility] Work Phone: Hospital Discharge instructions No data available for this section [facility] Progress note No data available for this section [facility] Summary Purpose Family History No Family [...] section and content) DATE CREATED AUTHOR 12/21/2017 [facility] DATE CREATED AUTHOR AUTHOR'S ORGANIZ ATION 05/01/2018 [facility] DATE CREATED AUTHOR AUTHOR'S ORGANIZ ATION 05/17/2022 [facility] DATE CREATED AUTHOR AUTHOR'S ORGANIZ ATION 10/06/2022 [facility] DATE CREATED AUTHOR AUTHOR'S ORGANIZ ATION 08/03/2023 [facility] DATE CREATED AUTHOR AUTHOR'S ORGANIZ ATION 11/28/2023 [facility] DATE CREATED AUTHOR AUTHOR'S ORGANIZ ATION 05/03/2024 [facility] Care Teams (unrecognized sec tion and [...] BE BASED ON THE PRIMARY CLINICAL RECORDS. [facility] [employer] [facility]. provides no warranty or guarantee of the accuracy or completeness of information in this document.
[2024-06-11] MEDS: LACTATED RINGER'S SOLUTION 1,000 ML 50 ML IV (13:59)
--- NOTE | 2024-06-11 14:33 | PC.NURSE ---
Addendum entered by Fiorella Fuentes 06/11/24 14:39: pt will be monitored until taken back to OR. pts bed to lowest position with siderails up and call light within reach. Original Note: 1416: time out completed as documented,pt positioned per anesthesia and 2L O2 via nasal cannula was applied per policy. 1418: pt medicated per SANDRITA Pina. 1421: block began at 1421 and was completed at 1424. pt tolerated well without complaints
[2024-06-11] MEDS: CEFAZOLIN SODIUM/DEXTROSE,ISO 2 GM/50 ML PIGGYBACK IV (14:42)
--- NOTE | 2024-06-11 16:36 | P.ORPRC_ITS ---
Procedure Note Date of procedure: 06/11/24 Pre-op diagnosis: Left distal radius fracture, greater than 4 part intraarticular Post-op diagnosis: same as pre-op Procedure: Procedure: Open reduction internal fixation left distal radius fracture Detailed Description of Procedure: After informed consent was obtained the patient brought to the operating room where a general anesthetic was administered. Preoperatively regional block was placed. A well-padded proximal arm tourniquet was placed on the right arm was prepped and draped in usual sterile fashion. The arm was elevated, exsanguinated, and the tourniquet was inflated to 225 mmHg. A 6 cm incision made overlying the flexor carpi radialis tendon overlying the distal radius. Blunt dissection was carried down through soft tissue. The flexor carpi radialis tendon was retracted ulnarly along with the flexor pollicis longus muscle and tendon. Pronator quadratus was incised in an L- shaped fashion off of the bone. Distal radius fracture was identified at this point and found to be intra-articular and comminuted. Using a combination of traction and manipulation and reduction was performed and appropriate reduction was confirmed under x-ray. A Synthes by column distal radius plate was then p laced and provisionally held into place with K wires. This was adjusted until the appropriate position was achieved under multiple fluoroscopy views. The plate was then first fixed with a 2.7 bicortical nonlocking screw in the oblong hole in the shaft. Holding the distal fragments reduced a total of 6 unicortical 2.4 mm locking screws were placed at the distal fragments followed by an additional 2 screws placed in the shaft in a bicortical locking fashion. Final x-rays in multiple planes revealed a reduced distal radius fracture with appropriate implant placement and lengths. Wound was irrigated. Pronator quadratus was repaired with an 0 Vicryl suture. Skin was closed with observable suture in layers. Well-padded dressing was placed followed by a fiberglass volar splint. Turning was deflated. Patient was awakened and brought to the recovery room in stable condition. There are no intraoperative or immediate postoperative complications. Anesthesia: regional and General-LMA Surgeon: Willi Torres Estimated blood loss (mL): 5 Pathology: none sent Condition: stable Disposition: PACU
--- NOTE | 2024-06-11 16:48 | PC.NURSE ---
Has urge to void; placed on bedpan. Extremity elevated and ice applied
--- NOTE | 2024-06-11 16:50 | PC.NURSE ---
Unable to void; removed from bedpan
--- NOTE | 2024-06-11 17:01 | PC.NURSE ---
Up to bathroom and voids without difficulty
== END 2024-06-11 17:40 | disposition home or self-care (01) ==
PROVIDERS: Anesthesiology; PCP Nurse Practitioner Family; Visit Provider Orthopaedic Surgery
PROC: (CPT 25609; principal; 2024-06-11 14:50)
DX: S52.572A Other intraarticular fracture of lower end of left radius, initial encounter for closed fracture (principal); W00.9XXA Unspecified fall due to ice and snow, initial encounter; Z90.722 Acquired absence of ovaries, bilateral; Z90.710 Acquired absence of both cervix and uterus; Z98.51 Tubal ligation status; Z87.891 Personal history of nicotine dependence; G47.33 Obstructive sleep apnea (adult) (pediatric); J44.9 Chronic obstructive pulmonary disease, unspecified; I27.20 Pulmonary hypertension, unspecified; E78.5 Hyperlipidemia, unspecified; I10 Essential (primary) hypertension; I47.10 Supraventricular tachycardia, unspecified; E03.9 Hypothyroidism, unspecified
CPT/HCPCS: 25609; 36415; 64415; 76000; 85025; 93005; C1713; J0690; J1100; J2250; J2371; J2405; J2704; J2795; J3010

== ENCOUNTER 2024-06-17 10:28 | Emergency (ER) | payer MEDICARE, SELFPAY ==
[2024-06-17 10:35] VITALS: BP 162/76; PULSE 64; TEMP 36.8; O2SAT 97; BMI 34.9
--- OUTSIDE RECORDS SUMMARY | 2024-06-17 10:38 | XMS_ITS | CCD ---
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 [address] [address] Deborah Mohan ANTI NEUTROPHIL CYTOPLASMIC AB (ANCA) PRon 03-09-2022 Anti-MPO Antibodies <0.2 Normal 0.0-0.9 [facility] Comment on above: Result Comment: Perf ormed at: BN Performed By: #### B MANAGER ASSET, HSTROPN, CMP #### [facility] [address] [address] [address] Deborah Mohan Anti-PR3 Antibodies <0.2 Normal 0.0-0.9 [facility] Comment on above: Result Comment: Perf ormed at: BN Performed By: #### B MANAGER ASSET, HSTROPN, CMP #### [facility] [address] [address] [address] Deborah Mohan Atypical pANCA 1:160 Critically high Neg:<1:20 [facility] Comment on above: Result Comment: The atypical pANCA pattern has been observed in a significant percentage of patients with ulcerative colitis, primary sclerosing cholangitis and autoimmune hepatitis. Performed at: CB Performed By: #### B MANAGER ASSET, HSTROPN, CMP #### [facility] [address] [address] [address] Deborah Mohan Cytoplasmic (C-ANCA) <1:20 Normal Neg:<1:20 [facility] Comment on above: Result Comment: Perf ormed at: CB Performed By: #### B PHILLIP JONES CMP #### [facility] [address] [address] [address] Deborah Mohan Perinuclear (P-ANCA) <1:20 Normal Neg:<1:20 [facility] Comment on above: Result Comment: The [...] By: #### B PHILLIP JONES CMP #### [facility] [address] [place] [address] Dr. Deborah Mohan ANTISCLERODERMA ABon 022 Antiscleroderma-70 Antibodies <0.2 Normal 0.0-0.9 [facility] Comment on above: Performed By: #### A NARF #### [facility] [address] [place] [address] CHEST WO CONon [...] incidental findings, as described above. Normal [facility] CYCLIC CITRULLINATED PEPTIDE AB (CCP)on 03-09-2022 CCP Antibodies IgG/IgA 6 units Normal 0-19 [facility] Comment on above: Result Comment: Nega tive <20 Weak positive 20 - 39 Moderate positive 40 - 59 Strong positive >59 Performed By: #### B MANAGER ASSET, HSTROPN, CMP #### [facility] [address], [place] [address] Dr. Deborah Mohan IGG SUBCLASSES (1-4) AND TOT Kade 03-09-2022 IgG, Subclass 1 448 mg/dL Normal 248-810 [facility] Comment on above: Performed By: #### B MANAGER ASSET, HSTROPN, CMP #### [facility] [id number] Deborah Mohan IgG, Subclass 2 253 mg/dL Normal 130-555 [facility] Comment on above: Performed By: #### B MANAGER ASSET, HSTROPN, CMP #### [facility] [address] [address] [address] Deborah Mohan IgG, Subclass 3 95 mg/dL Normal 15-102 [facility] Comment on above: Performed By: #### B MANAGER ASSET, HSTROPN, CMP #### [facility] [address] [address] Deborah Mohan IgG, Subclass 4 10 mg/dL Normal 2-96 [facility] Comment on above: Performed By: #### B MANAGER ASSET, HSTROPN, CMP #### [facility] [address] [place], [place] [address] Dr. Deborah Mohan Immunoglobulin G, Qn, Serum 658 mg/dL Normal 586-1602 [facility] Comment on above: Performed By: #### B MANAGER ASSET, HSTROPN, CMP #### [facility] [address] [address] Deborah Mohan IMMUNOGLOBULIN E, TOTALon Immunoglobulin E, Total 5 IU/mL Critically low 6-495 [facility] Comment on above: Performed By: #### I GETOT ####[facility] [address] [place], [place] [address]UsDr. Deborah Mohan MICHELL EIA W/REFLEX 5 BIOMARKER Son 03-08-2022 MICHELL Direct Negative Normal Negative [facility] Comment on above: Performed By: #### A NARF #### [facility] [address] [address] [address] Deborah Mohan ANGIOTENSION-CONVERTING ENZY ME (FRANCESCO)on 03-08-2022 FRANCESCO 32 U/L Normal 14-82 [facility] Comment on above: Performed By: #### A NGIOC ####[facility] [address] [address]DrAnkur Mohan ANTIGLOMERULAR BASEMENT MEMB ROMMEL ABSon 03-08-2022 Anti-GBM Antibodies <0.2 Normal 0.0-0.9 [facility] Comment on above: Performed By: #### A GBM #### [facility] [address] [address] [address] Deborah Mohan IMMUNOGLOBULIN IGA QUANTITIA VEon 03-06-2022 Immunoglobulin A, Qn, Serum 229 mg/dL Normal 87-352 [facility] Comment on above: Performed By: #### A NARF #### [facility] [address] [address] [address] Deborah Mohan IMMUNOGLOBULIN IGM QUANTITAT IVEon 03-06-2022 Immunoglobulin M, Qn, Serum 83 mg/dL Normal 26-217 [facility] Comment on above: Performed By: #### B MANAGER ASSET, HSTROPN, CMP #### [facility] [address] [address] [address] Deborah Mohan RHEUMATOID FACTORon 03-06-20 22 RA Latex Turbid. 10.9 IU/mL Normal <14.0 [facility] Comment on above: Performed By: #### R F ####[facility] [address] [address]Dr. Deborah Mohan CREATININEon 03-05-2022 Creatinine [Mass/Vol] 1.38 mg/dL Critically high 0.55-1.02 [facility] Comment on above: Performed By: #### C MELVINA ####[facility] [address] [place] [address]DrAnkur Mohan EGFR-AF PANAMANIAN 46 mL/min/1.73m2 Critically low >=60 [facility] Comment on above: Performed By: #### C MELVINA ####[facility] [address] [place], [place] [address]LeAknur Mohan EGFR-NON AF PANAMANIAN 38 mL/min/1.73m2 Critically low >=60 [facility] Comment on above: Performed By: #### C MELVINA ####[facility] [address] [place], [place] [address]SjDr. Deborah Mohan SED RATE WESTERGRENon 2021 SED RATE 92 mm/hr Critically high <=30 [facility] Comment on above: Performed By: #### B MANAGER ASSET, HSTROPN, CMP #### [facility] [address] [place], [place] [address] Dr. Deborah Mohan XR DEXA BONE DENSITYon [...] Date: 2022-03-05 16:56 Normal [facility] XR CHEST 1 Von 03-01-2022 XR [...] Date: 2022-02-28 22:27 Normal [facility] XR KNEE LUANA 4V or >on [...] RAUDEL ESTRADA Date: 2022-01-29 11:09 Normal [facility] CBC AUTO DIFFon 11-29-2021 BASO # 0.1 103/ul Normal 0.0-0.1 [facility] Comment on above: Performed By: #### C BC ####[facility] [address] [address]Dr. Deborah Mohan Basophils/100 WBC (Bld) 0.8 % Normal 0.2-2.0 [facility] Comment on above: Performed By: #### C BC ####[facility] [address] [address]Dr. Deborah Mohan EO # 0.3 103/ul Normal 0.0-0.7 [facility] Comment on above: Performed By: #### C BC ####[facility] [address] [address]Dr. Deborah Mohan Eosinophils/100 WBC (Bld) 2.2 % Normal 0.9-7.0 [facility] Comment on above: Performed By: #### C BC ####[facility] [address] [place], [place] [address]Dr. Deborah Mohan Erythrocyte distribution width (RBC) [Ratio] 21.2 % Critically high 11.0-15.0 [facility] Comment on above: Performed By: #### C BC ####[facility] [address] [place], [place] [address]Dr. Deborah Mohan Hematocrit (Bld) [Volume fraction] 33.2 % Critically low 36.0-48.0 [facility] Comment on above: Performed By: #### C BC ####[facility] [address] [place] [address]Dr. Deborah Mohan Hemoglobin (Bld) [Mass/Vol] 10.3 g/dL Critically low 12.0-16.0 [facility] Comment on above: Performed By: #### C BC ####[facility] [address] [place] [address]Dr. Deborah Mohan IG # 0.11 10e3/ul Critically high 0.00-0.03 [facility] Comment on above: Performed By: #### C BC ####[facility] [address] [place] [address]Dr. Deborah Mohan IG % 0.9 % Critically high 0.0-0.5 [facility] Comment on above: Performed By: #### C BC ####[facility] [address] [address]Dr. Deborah Mohan LYMPH # 2.2 103/ul Normal 1.2-3.8 [facility] Comment on above: Performed By: #### C BC ####[facility] [address] [place] [address]Dr. Deborah Mohan Lymphocytes/100 WBC (Bld) 18.5 % Critically low 20.5-60.0 [facility] Comment on above: Performed By: #### C BC ####[facility] [address] [address]Dr. Deborah Mohan MANUAL DIFF REQ NO Normal [facility] Comment on above: Performed By: #### C BC ####[facility] [address] [place] [address]Dr. Deborah Mohan MCH (RBC) [Entitic mass] 26.3 pg Critically low 26.7-34.0 [facility] Comment on above: Performed By: #### C BC ####[facility] [address] [place] [address]Dr. Deborah Mohan MCHC (RBC) [Mass/Vol] 31.0 g/dL Normal 29.9-35.2 [facility] Comment on above: Performed By: #### C BC ####[facility] [address] [place] [address]Dr. Deborah Mohan MCV (RBC) [Entitic vol] 84.9 fL Normal 81.0-99.0 [facility] Comment on above: Performed By: #### C BC ####[facility] [address] [place] [address]Dr. Deborah Mohan MONO # 0.6 103/ul Normal 0.3-0.8 [facility] Comment on above: Performed By: #### C BC ####[facility] [address] [place] [address]Dr. Deborah Mohan Monocytes/100 WBC (Bld) 5.3 % Normal 1.7-12.0 [facility] Comment on above: Performed By: #### C BC ####[facility] [address] [place], [place] [address]Dr. Deborah Mohan NEUT # 8.4 103/ul Critically high 1.4-6.5 [facility] Comment on above: Performed By: #### C BC ####[facility] [address] [place], [place] [address]Dr. Deborah Mohan Neutrophils/100 WBC (Bld) 72.3 % Normal 43.0-75.0 [facility] Comment on above: Performed By: #### C BC ####[facility] [address] [place], [place] [address]Dr. Deborah Mohan Platelet mean volume (Bld) [Entitic vol] 10.1 fL Normal 9.5-13.5 [facility] Comment on above: Performed By: #### C BC ####[facility] [address] [place] [address]Dr. Deborah Mohan PLT 351 103/ul Normal 150-450 [facility] Comment on above: Performed By: #### C BC ####[facility] [address] [place] [address]Dr. Deborah Mohan RBC 3.91 106/ul Critically low 4.20-5.40 [facility] Comment on above: Performed By: #### C BC ####[facility] [address] [place], [place] [address]RdAnkur Mohan WBC 11.6 103/ul Critically high 4.0-11.0 [facility] Comment on above: Performed By: #### C BC ####[facility] [address] [place], [place] [address]Vo. Deborah Mohan CTA CHEST WO W CONon [...] 2. Bilateral peripheral fibrosis and/or scarring with fcqo-wj-vmfavwea groundglass densities. The groundglass densities are slightly decreased compared to the prior scan. 3. Old calcified granulomas in the chest and abdomen. 4. Large hiatal hernia. 5. Moderate diffuse osteopenia. Electronically authenticated by: BERNARDO DENNY Date: 2021-11-29 20:31 Normal [facility] D-DIMERon 11-29-2021 D-DIMER 1.14 mg/L FEU Critically high <=0.59 [facility] Comment on above: Performed By: #### A NARF #### [facility] [address] [place] [address] Dr. Deborah Mohan D-DIMER COMMENTS SEE BELOW Normal [facility] Comment on above: Result Comment: Incr eases [...] hospitalization. Performed By: #### A NARF #### [facility] [address] [place] [address] Dr. Deborah Mohan PROF CHEM 8 (BAS METB)on Anion gap [Moles/Vol] 11.7 mmol/L Normal [facility] Comment on above: Performed By: #### B KYLEE HSTROPN #### [facility] [address] [place] [address] Dr. Deborah Mohan Calcium [Mass/Vol] 8.7 mg/dL Normal 8.5-10.1 [facility] Comment on above: Performed By: #### B KYLEE HSTROPN #### [facility] [address] [place] [address] Dr. Deborah Mohan Chloride [Moles/Vol] 107 mmol/L Normal 98-107 [facility] Comment on above: Performed By: #### B KYLEE HSTROPN #### [facility] [address] [place] [address] Dr. Deborah Mohan CO2 [Moles/Vol] 25.3 mmol/L Normal 21.0-32.0 [facility] Comment on above: Performed By: #### B KYLEE, HSTROPN #### [facility] [address] [address] [address] Deborah Mohan Creatinine [Mass/Vol] 0.98 mg/dL Normal 0.55-1.02 [facility] Comment on above: Performed By: #### B KYLEE, HSTROPN #### [facility] [address] [address] [address] Deborah Mohan EGFR-AF PANAMANIAN >60 Normal >=60 [facility] Comment on above: Performed By: #### B KYLEE, HSTROPN #### [facility] [address] [place] [address] Dr. Deborah Mohan EGFR-NON AF PANAMANIAN 56 mL/min/1.73m2 Critically low >=60 [facility] Comment on above: Performed By: #### B KYLEE, HSTROPN #### [facility] [address] [place] [address] Dr. Deborah Mohan Glucose [Mass/Vol] 105 mg/dL Normal 74-106 [facility] Comment on above: Performed By: #### B KYLEE, HSTROPN #### [facility] [address] [place] [address] Dr. Deborah Mohan Potassium [Moles/Vol] 4.0 mmol/L Normal 3.5-5.1 [facility] Comment on above: Performed By: #### B KYLEE, HSTROPN #### [facility] [address] [place] [address] Dr. Deborah Mohan Sodium [Moles/Vol] 140 mmol/L Normal 136-145 [facility] Comment on above: Performed By: #### B KYLEE, HSTROPN #### [facility] [address] [place] [address] Dr. Deborah Mohan Urea nitrogen [Mass/Vol] 21.0 mg/dL Critically high 7.0-18.0 [facility] Comment on above: Performed By: #### B KYLEE, HSTROPN #### [facility] [address] [place], [place] [address] Dr. Deborah Mohan Urea nitrogen/Creatinine [Mass ratio] 21.4 mg/mg Normal [facility] Comment on above: Performed By: #### B KYLEE, HSTROPN #### [facility] [address] [address] [address] Deborah Mohan TROPONIN, HIGH SENSITIVITYon 11-29-2021 HSTROP 4.5 pg/mL Normal 4.0-51.3 [facility] Comment on above: Result Comment: CUT- OFF POINTS HAVE BEEN ESTABLISHED BASED ON THE FOURTH UNIVERSAL DEFINITIONS OF MYOCARDIAL INFARCTION. THE UPPER REFERENCE LIMIT (URL) OF TROPONIN, DEFINED THE 99TH PERCENTILE OF cTnI DISTRIBUTION IN A REFERENCE POPULATION, HAS BEEN CONFIRMED THE DECISION THRESHOLD FOR [place] DIAGNOSIS. Performed By: #### H STROPN ####[facility] [address] [place], [place] [address]Dr. Deborah Mohan HSTROP 6.0 pg/mL Normal 4.0-51.3 [facility] Comment on above: Result Comment: CUT- OFF POINTS HAVE BEEN ESTABLISHED BASED ON THE FOURTH UNIVERSAL DEFINITIONS OF MYOCARDIAL INFARCTION. THE UPPER REFERENCE LIMIT (URL) OF TROPONIN, DEFINED THE 99TH PERCENTILE OF cTnI DISTRIBUTION IN A REFERENCE POPULATION, HAS BEEN CONFIRMED THE DECISION THRESHOLD FOR [place] DIAGNOSIS. Performed By: #### B KYLEE, HSTROPN #### [facility] [address] [address] [address] Deborah Mohan XR CHEST 1 Von [...] KANDY BARRY Date: 2021-11-29 19:20 Normal [facility] XR LSPINE W_OBLS AND FLEX_EX Ton [...] Date: 2021-11-12 07:56 Normal [facility] CALCIUMon 11-11-2021 Calcium [Mass/Vol] 9.0 mg/dL Normal 8.5-10.1 [facility] Comment on above: Performed By: #### A NARF #### [facility] [address] [address] [address] Deborah Mohan CREATININEon 11-11-2021 Creatinine [Mass/Vol] 1.47 mg/dL Critically high 0.55-1.02 [facility] Comment on above: Performed By: #### A NARF #### [facility] [facility] [address] [address] [address] Deborah Mohan EGFR-AF PANAMANIAN 43 mL/min/1.73m2 Critically low >=60 [facility] Comment on above: Performed By: #### A NARF #### [facility] [address] [address] [address] Deborah Mohan EGFR-NON AF PANAMANIAN 35 mL/min/1.73m2 Critically low >=60 [facility] Comment on above: Performed By: #### A NARF #### [facility] [address] [place] [address] Dr. Deborah Mohan Vital Signs Date Time Vital Sign Value Performing Clinician Faci lity 03-20-2024 14:57-0400 Blood Pressure Location Anderson SHASHA [facility] [place] 03-20-2024 14:57-0400 Diastolic blood pressure 82 mm[Hg] Anderson NILL [facility] [place] 03-20-2024 14:57-0400 Heart rate 70 /min Anderson NILL [facility] Surgery [place] 03-20-2024 14:57-0400 Respiratory rate 16 /min Anderson NILL [facility] [place] 03-20-2024 14:57-0400 Systolic blood pressure 126 mm[Hg] Anderson NILL [facility] [place] Encounters Encounter Date Encounter Type Care Provider Facility Start: 04-25-2024 End: 04-25-2024 ambulatory Anderson Wiley RICHL Facility:CD:[id number] Start: 03-20-2024 End: 03-20-2024 ambulatory Luisito Townsend Facility: [place] Start: 03-20-2024 End: 03-20-2024 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 procedure Anderson VILLANUEVAL [facility] Surgery [place] Start: 02-10-2024 ambulatory Luisito Hoy Facility:[facility] Start: 11-28-2023 End: 11-28-2023 ambulatory [facility] Start: 10-18-2023 End: 10-18-2023 ambulatory [facility] Start: 08-01-2023 End: 08-02-2023 ambulatory Gabriella [...] Start: 05-08-2022 End: 05-08-2022 ambulatory Clarita Nena Facility:[facility] Start: 05-08-2022 End: 05-08-2022 ambulatory [facility] Clarita Nena Work Phone: [facility] Work Phone: Start: 05-08-2022 End: 05-08-2022 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 procedure [facility] ENUMERATOR-C Clarita Nena Work Phone: [facility] Start: 04-08-2022 End: 04-09-2022 ambulatory JOEL RAMON [...] 04-01-2018 Emergency department patient visit BRANDON RUSSELL [facility] Start: 12-11-2017 End: 12-11-2017 Emergency department patient visit ROBERT HURLEY Facility:[facility] Procedures Date Procedure Procedure Detail Performing Clinician Start: 05-08-2022 Plain X-ray of left wrist [facility] EN[facility] Clarita Blakeault Work Phone: Start: 05-08-2022 X-ray of left ankle [facility] -[facility] Clarita Nena Work Phone: Start: 04-01-2018 [...] Date Payer Category Payer Unknown 2022 Medicare [id number] 2022 Self-pay 1959 Unknown [id number] 1955 Unknown [id number] 2.16.84 0.1.703158.3.579.2.593 1953 Unknown [id number] 2.16.84 0.1.959835.3.579.2.593 1953 Unknown [id number] 2.16.84 0.1.628360.3.579.2.593 1953 Unknown [id number] 2.16.84 0.1.049563.3.579.2.593 1953 Unknown [id number] 2.16.84 0.1.691513.3.579.2.593 1953 Unknown [id number] 2.16.84 0.1.946394.3.579.2.593 1953 Unknown [id number] 2.16.84 0.1.226851.3.579.2.593 1953 Unknown [id number] 2.16.84 0.1.897922.3.579.2.593 1953 Unknown [id number] 2.16.84 0.1.930168.3.579.2.593 1953 Unknown [id number] 2.16.84 0.1.475380.3.579.2.593 1953 Unknown [id number] 2.16.84 0.1.408637.3.579.2.593 1953 Unknown [id number] 2.16.84 0.1.989056.3.579.2.593 1953 Unknown [id number] 2.16.84 0.1.599711.3.579.2.593 1953 Unknown [id number] 2.16.84 0.1.385187.3.579.2.593 1953 Unknown [id number] 2.16.84 0.1.026752.3.579.2.593 1953 Unknown [id number] 2.16.84 0.1.215971.3.579.2.593 1953 Unknown [id number] 2.16.84 0.1.515925.3.579.2.593 1953 Unknown [id number] 2.16.84 0.1.521047.3.579.2.593 1953 Unknown [id number] 2.16.84 0.1.619548.3.579.2.593 1953 Unknown [id number] 2.16.84 0.1.310712.3.579.2.593 1953 Unknown [id number] 2.16.84 0.1.463758.3.579.2.593 1953 Unknown [id number] 2.16.84 0.1.907460.3.579.2.593 1953 Unknown [id number] 2.16. 840.1.875728.3.579.2.196 1955 Unknown [id number] 2.16.8 40.1.865688.3.579.2.727 1955 Unknown [id number] 2.16.8 40.1.598745.3.579.2.727 Medicare [id number] Unknown [facility] [id number] Unknown [employer] [id number] Unknown [id number] 2.16.8 40.1.433583.3.579.2.531 Social History Date Type Detail Facility [facility] Work Phone: Start: 1955 Sex Assigned At Female [facility] Start: 03-20-2024 Tobacco smoking status Ex-smoker (fi nding) [facility] Tobacco smoking status Never [facility] Sex Assigned At Female [facility] Functional Status Date Assessment Result Facility 03-20-2024 Functional Status N/A [facility] Clinical Notes 11-05-2021 to 03-20-2024 Note Date [...] 1 tab(s), Or (more content not included)... [facility] Comment on above: Result Comment: Elec tronically Signed By: SHASHA GRANT, Anderson Serrano.nigel\Date and Time Signed: 03/20/24 16:53 EDT 11-28-2023 Note [facility] Cardiology Clinic Note Chief Complaint: Patient [...] mouth in the morning., Disp: , Rfl: vmeehjhwsq-gutddviysmcro-nbpr 50-325-40 mg tablet, Take 1 tablet by [...] Echocar (more content not included)... [facility] 10-18-2023 Note [facility] Cardiology Clinic Note Chief Complaint: New patient here to establish care. Ref from Dr. Townsend for abnormal EKG. She also wore 7 day Holter monitor, and says she did not work while wearing this. She works at [employer] and says it's very fast paced. States she drinks a [employer] shot almost every day. She was admitted to [facility] for migraine recently and was found to have abnormal EKG. Recently has noticed a twinge of chest pain. C/o DAI, palpitations, and lightheadedness. HPI: Mary Vick is a 68 y.o. female With a history of hypertension and hypothyroidism who presents due to an abnormal Holter monitor She was admitted to the [facility] for migraine; a monitor revealed both [...] labs (more content not included)... [facility] 07-08-2022 Note CONSULTATION PROCEDURE DATE: 07/08/2022 [...] in the clinic in three months. [facility] 06-24-2022 Note CONSULTATION CONSULTATION DATE: 06/24/2022 [...] at a time, as she works at [employer]. Current medications include Percocet 5/325 daily, diclofenac [...] pending approval for her knee injections. [facility] 04-08-2022 Note CONSULTATION CONSULTATION DATE: 04/08/2022 [...] three months' time unless otherwise indicated. [facility] 03-09-2022 Note CONSULTATION CONSULTATION DATE: 03/09/2022 [...] to proceed. CC: Natividad Silva CNP [facility] 01-28-2022 Note CONSULTATION CONSULTATION DATE: 01/30/2022 [...] and re-evaluation of her bursa injection. [facility] 01-28-2022 Note CONSULTATION PROCEDURE DATE: 01/30/2022 [...] be followed up in the clinic. [facility] 11-12-2021 Note PROCEDURE: XR HIPS B [...] by: RAUDEL ESTRADA Date: 2021-11-12 07:50 [facility] 11-05-2021 Note CONSULTATION PROCEDURE DATE:11/05/2021 PREOPERATIVE [...] will be followed up in the office. [facility] Signed and Approved by: JOEL RAMON . 11/18/2021 16:24:00 [facility] 11-05-2021 Note CONSULTATION CONSULTATION DATE: 11/05/2021 [...] time, was working half a day at [employer] and since then has increased to full [...] in three months' time unless otherwise indicated. [facility] Signed and Approved by: JOEL RAMON . 11/18/2021 16:24:00 [facility] Evaluation + Plan note No data available for this section [facility] Evaluation note No assessment inform ation available [facility] Work Phone: Hospital Discharge instructions No data available for this section [facility] Progress note No data available for this section [facility] Summary Purpose Family History No [...] section and content) DATE CREATED AUTHOR 12/21/2017 [facility] DATE CREATED AUTHOR AUTHOR'S ORGANIZ ATION 05/01/2018 [facility] DATE CREATED AUTHOR AUTHOR'S ORGANIZ ATION 05/17/2022 [facility] DATE CREATED AUTHOR AUTHOR'S ORGANIZ ATION 10/06/2022 [facility] DATE CREATED AUTHOR AUTHOR'S ORGANIZ ATION 08/03/2023 [facility] DATE CREATED AUTHOR AUTHOR'S ORGANIZ ATION 11/28/2023 [facility] DATE CREATED AUTHOR AUTHOR'S ORGANIZ ATION 05/03/2024 [facility] Care Teams (unrecognized sec tion and content) [...] BE BASED ON THE PRIMARY CLINICAL RECORDS. [facility]. provides no warranty or guarantee of the accuracy or completeness of information in this document.
--- NOTE | 2024-06-17 10:52 | XR_ITS ---
The [address] [address] Patient Name: MELANIE TOMPKINS MRN: [id number] date: 1955 Sex: F Assigned Patient Location: ER Current Patient Location: ER Accession/Order Number: [id number] Exam Date: 06/17/2024 11:15 Report Date: 06/17/2024 13:19 At the request of: CORBY BALES Procedure: XR chest 1V EXAM: XR chest 1V 06/17/2024 COMPARISON STUDY: PA and lateral chest 06/07/2024. CT of the chest 06/06/2024 FINDINGS: Upright AP chest image was obtained of this morbidly obese patient. The image is underpenetrated. HISTORY: cp XR/XR chest 1V IMPRESSION: 1. Moderate enlargement of the cardiac silhouette is again noted. 2. Lung volumes are chronically diminished with peripheral and bibasilar predominant chronic interstitial lung disease with fibrosis again noted. Distribution is relatively symmetric. 3. Large hiatal hernia resulting in compressive atelectasis involving medial aspect of both lower lobes again noted. 4. Overall no acute interval change. There is no pneumothorax. 5. Generalized osteopenia. Numerous bilateral rib fracture deformities are seen to better advantage on the prior CT study. Electronically authenticated by: SERAFIN ZAFAR Date: 06/17/2024 13:19
--- NOTE | 2024-06-17 10:52 | ECG_ITS ---
[facility] Test Date: 2024-06-17 Pat Name: MELANIE TOMPKINS Department: Room: - Gender: Female Manager Federal: : 1955 Requested By: POLO SILVA Order Number: [id number] Reading MD: LUISITO UMANA Measurements Intervals [place] Rate: 59 P: 30 WV: 164 QRS: 38 QRSD: 88 T: 53 QT: 444 QTc: 442 Interpretive Statements 1100 Sinus rhythm 9110 normal ECG Compared to ECG 06/11/2024 13:40:46 Sinus bradycardia no longer present Electronically Signed On 06-18-2024 9:24:34 EST by LUISITO UMANA
--- NOTE | 2024-06-17 11:10 | PC.NURSE ---
Patient had fall with rib fx. to left side, still having increased pain to left rib area and left chest area.
[2024-06-17 11:42] LABS: Basophils Absolute Auto 0.1 10^3/uL (0.0-0.1); Basophils Percent Auto 1.1 % (0.2-2.0); Eosinophils Absolute Auto 0.4 10^3/uL (0.0-0.7); Eosinophils Percent Auto 4.1 % (0.9-7.0); Hematocrit 36.3 % (36.0-48.0); Hemoglobin 11.4 g/dL (12.0-16.0); Immature Granulocytes Abs Auto 0.15 10^3/uL (0.00-0.03); Immature Granulocytes Pct Auto 1.7 % (0.0-0.5); Lymphocytes Absolute Auto 1.8 10^3/uL (1.2-3.8); Mean Corpuscular HGB Conc 31.4 g/dL (29.9-35.2); Mean Corpuscular Hemoglobin 28.3 pg (26.7-34.0); Mean Corpuscular Volume 90.1 fL (81.0-99.0); Mean Platelet Volume 9.8 fL (9.5-13.5); Monocytes Absolute Auto 0.7 10^3/uL (0.3-0.8); Monocytes Percent Auto 7.3 % (1.7-12.0); Neutrophils Absolute Auto 5.9 10^3/uL (1.4-6.5); Neutrophils Percent Auto 65.8 % (43.0-75.0); Platelet Count 308 10^3/uL (150-450); Red Blood Count 4.03 10^6/uL (4.20-5.40); Red Cell Distribution Width 15.8 % (11.0-15.0)
[2024-06-17 11:53] LABS: D Dimer 3.27 mg/L FEU (<=0.59)
[2024-06-17 12:10] LABS: Alanine Aminotransferase 16 U/L (14-59); Albumin Globulin Ratio 0.8; Alkaline Phosphatase 106 U/L (46-116); Anion Gap 9.4; Aspartate Amino Transferase 18 U/L (15-37); BUN Creatinine Ratio 24.5; Bilirubin Total 0.3 mg/dL (0.2-1.0); Calcium 8.4 mg/dL (8.5-10.1); Chloride 103 mmol/L (98-107); Estimated GFR (African America >60 (>=60 mL/min/1.73m^2); Estimated GFR (Non-African Ame 59 (>=60 mL/min/1.73m^2); Globulin 3.8 g/dL; Glucose 90 mg/dL (74-106); Potassium 4.4 mmol/L (3.5-5.1); Sodium 138 mmol/L (136-145); Total Protein 6.8 g/dL (6.4-8.2); Troponin I High Sensitivity 5.3 pg/mL (4.0-51.3)
--- NOTE | 2024-06-17 13:44 | ED_ITS ---
HPI HPI - General Adult General Chief complaint: Chest Pain Stated complaint: L LUNG PAIN Time Seen by Provider: 06/17/24 10:42 Source: patient Mode of arrival: walk-in History of Present Illness HPI narrative: The patient have a history of multiple fractures of her ribs as well as sternum coming to the ER with a left-sided chest pain, the pain is left-sided as it is only with taking a deep breath is not there at rest, the patient mentioned that she has not been using her incentive spirometer, she also mentioned that she had a left upper extremity surgery almost 5 days ago when she had a history of fracture The patient denies any other concerns of difficulty breathing nausea vomiting or fever She was told by her friend that she need to be evaluated for PE and that why she presented to us Related Data Home Medications ?Medication ?Instructions ?Recorded ?Confirmed albuterol sulfate 90 mcg/actuation 2 inh inhalation Q6H PRN shortness 10/21/22 06/17/24 breath activated powder inhaler of breath or wheezing aripiprazole 30 mg tablet (Abilify) 30 mg PO QDAY 10/21/22 06/17/24 diclofenac sodium 50 mg 50 mg PO BID 10/21/22 06/17/24 tablet,delayed release ropinirole 1 mg tablet 1 mg PO QDAY PRN restless leg(s) 10/21/22 06/17/24 ferrous sulfate 325 mg (65 mg 325 mg PO DAILY 04/12/24 06/17/24 iron) tablet (Holly-Time) fluticasone fur. 100 mcg-umeclid 1 inh inhalation DAILY 04/12/24 06/17/24 62.5 mcg-vilant 25 mcg inhalat.powder (Trelegy Ellipta) magnesium 250 mg tablet 250 mg PO DAILY 04/12/24 06/17/24 vitamins A,C,F-ukzp-yhmtya 4,296 1 cap PO DAILY 04/12/24 06/17/24 mcg-226 mg-90 mg capsule (PreserVision AREDS) amitriptyline 50 mg tablet 50 mg PO .qhs 06/06/24 06/17/24 baclofen 5 mg tablet 5 mg PO QDAY PRN IF NEEDED FOR 06/06/24 06/17/24 SKELETAL MUSCULAR PAIN fluoxetine 20 mg capsule 80 mg PO .QD 06/06/24 06/17/24 liothyronine 5 mcg tablet 5 mcg PO .QD 06/06/24 06/17/24 lisinopril 40 mg tablet 40 mg PO .QD 06/06/24 06/17/24 omeprazole 20 mg capsule,delayed 20 mg PO BID 06/06/24 06/17/24 release potassium 99 mg tablet mg PO DAILY 06/08/24 vitamin B complex 1 tab PO DAILY 06/08/24 06/17/24 Previous Rx's ?Medication ?Instructions ?Recorded levothyroxine 50 mcg tablet 50 mcg PO QDAY #30 tabs 09/17/23 (Euthyrox) oxycodone-acetaminophen 5 mg-325 1 tab PO Q6H PRN pain 7 days #28 06/07/24 mg tablet tabs oxycodone-acetaminophen 5 mg-325 1 tab PO Q4H PRN pain 7 days #40 06/11/24 mg tablet (Percocet) tabs Allergies Allergy/AdvReac Type Severity Reaction Status Date / Time sumatriptan (From Imitrex) Allergy Severe Palpitation Verified 06/17/24 10:33 s Opioid HPI Opioid Management Most Recent Opioid Data: Last Pain Scale 5 06/11/24 13:35 06/11/24 Last Pain Intensity 7 06/06/24 14:37 06/06/24 Last Pain Assessment 06/11/24 17:25 Last ORT Total Score 10 06/06/24 13:35 06/06/24 Last ORT Risk Category High Risk 06/06/24 13:35 06/06/24 Review of Systems ROS Status of ROS 10 or more systems reviewed and unremark able except as noted in history and below [facility] Medical History (Updated 06/17/24 @ 13:52 by Catherine Pereira MD) Syncopal episodes ?R55 - Syncope and collapse (ICD-10) Pneumonia ?J18.9 - Pneumonia, unspecified organism (ICD-10) Restless leg ?G25.81 - Restless legs syndrome (ICD-10) Dyspnea on exertion ?R06.09 - Other forms of dyspnea (ICD-10) Bilateral pulmonary contusion ?S27.322A - Contusion of lung, bilateral, initial encounter (ICD-10) Closed rib fracture ?S22.39XA - Fracture of one rib, unspecified side, initial encounter for closed fracture (ICD-10) Fall ?W19.XXXA - Unspecified fall, initial encounter (ICD-10) Chin contusion ?S00.83XA - Contusion of other part of head, initial encounter (ICD-10) Laceration of lip ?S01.511A - Laceration without foreign body of lip, initial encounter (ICD- 10) Fracture of wrist ?S62.109A - Fracture of unspecified carpal bone, unspecified wrist, initial encounter for closed fracture (ICD-10) Macular degeneration ?H35.30 - Unspecified macular degeneration (ICD-10) Seasonal allergies ?J30.2 - Other seasonal allergic rhinitis (ICD-10) Anemia ?D64.9 - Anemia, unspecified (ICD-10) Lumbar radiculopathy ?M54.16 - Radiculopathy, lumbar region (ICD-10) Muscle spasm ?M62.838 - Other muscle spasm (ICD-10) Lumbar spondylosis ?M47.816 - Spondylosis without myelopathy or radiculopathy, lumbar region (ICD-10) Thoracic spondylosis ?M47.814 - Spondylosis without myelopathy or radiculopathy, thoracic region (ICD-10) Bilateral sacroiliitis ?M46.1 - Sacroiliitis, not elsewhere classified (ICD-10) Chronic, continuous use of opioids ?F11.90 - Opioid use, unspecified, uncomplicated (ICD-10) Greater trochanteric bursitis of both hips ?M70.61 - Trochanteric bursitis, right hip (ICD-10) ?M70.62 - Trochanteric bursitis, left hip (ICD-10) Encounter for long-term opiate analgesic use ?Z79.891 - [facility] (current) use of opiate analgesic (ICD-10) Bilateral primary osteoarthritis of knee ?M17.0 - Bilateral primary osteoarthritis of knee (ICD-10) Acute opioid intoxication ?F11.929 - Opioid use, unspecified with intoxication, unspecified (ICD-10) Tubal ligation evaluation ?Z01.818 - Encounter for other preprocedural examination (ICD-10) Colonoscopy planned Headache, migraine ?G43.909 - Migraine, unspecified, not intractable, without status migrainosus (ICD-10) SVT (supraventricular tachycardia) ?I47.10 - Supraventricular tachycardia, unspecified (ICD-10) Screening for colorectal cancer ?Z12.11 - Encounter for screening for malignant neoplasm of colon (ICD-10) ?Z12.12 - Encounter for screening for malignant neoplasm of rectum (ICD-10) COPD (chronic obstructive pulmonary disease) ?J44.9 - Chronic obstructive pulmonary disease, unspecified (ICD-10) Migraine ?G43.909 - Migraine, unspecified, not intractable, without status migrainosus (ICD-10) Loud snoring ?R06.83 - Snoring (ICD-10) Osteoarthritis ?M19.90 - Unspecified osteoarthritis, unspecified site (ICD-10) Neck pain ?M54.2 - Cervicalgia (ICD-10) Bipolar 1 disorder ?F31.9 - Bipolar disorder, unspecified (ICD-10) Hearing deficit ?H91.90 - Unspecified hearing loss, unspecified ear (ICD-10) Anxiety ?F41.9 - Anxiety disorder, unspecified (ICD-10) Acid reflux ?K21.9 - Gastro-esophageal reflux disease without esophagitis (ICD-10) Obesity ?E66.9 - Obesity, unspecified (ICD-10) Hypothyroid ?E03.9 - Hypothyroidism, unspecified (ICD-10) Pulmonary hypertension ?I27.20 - Pulmonary hypertension, unspecified (ICD-10) Sleep apnea ?G47.30 - Sleep apnea, unspecified (ICD-10) High cholesterol ?E78.00 - Pure hypercholesterolemia, unspecified (ICD-10) Hypertension ?I10 - Essential (primary) hypertension (ICD-10) Surgical History (Updated 06/08/24 @ 13:12 by Lorelei Klein NP) History of colonoscopy ?Z98.890 - Other specified postprocedural states (ICD-10) H/O bilateral salpingo-oophorectomy ?Z90.79 - Acquired absence of other genital organ(s) (ICD-10) ?Z90.722 - Acquired absence of ovaries, bilateral (ICD-10) H/O dilation and curettage ?Z98.890 - Other specified postprocedural states (ICD-10) Cataract extraction status ?Z98.49 - Cataract extraction status, unspecified eye (ICD-10) H/O blepharoplasty ?Z98.890 - Other specified postprocedural states (ICD-10) History of mandibular surgery ?Z98.890 - Other specified postprocedural states (ICD-10) Hx of tubal ligation ?Z98.51 - Tubal ligation status (ICD-10) History of appendectomy ?Z90.49 - Acquired absence of other specified parts of digestive tract (ICD-10) History of hysterectomy ?Z90.710 - Acquired absence of both cervix and uterus (ICD-10) Family History (Updated 04/12/24 @ 15:18 by Maeve Gamino) Mother Family history of cancer Sister Family history of cancer Other Delayed recovery from anesthesia Family history of breast cancer Family history of lung cancer Social History Within the past year, how often did you have a drink containing alcohol: never Score interpretation: A score less than 3 is consistent with normal alcohol consumption. Smoking status: Former smoker Non-prescribed substance use: denies use Previous occupational history: [employer] Highest level of school completed/degree received: 11th grade Are you now , , , , never or living with a partner: In a typical week, how many times do you talk on the telephone with family, friends, or neighbors: 3 or more times per week How often do you get together with friends or relatives: 3 or more times per week How often do you attend mandaen or voodoo services: 4 or more times per year Do you belong to any clubs or organizations such as mandaen groups unions, fraternal or athletic groups, or school groups: no Total score: 2 Score interpretation: A score of greater than or equal to 2 indicates the lowest level of social isolation. Little interest or pleasure in doing things: not at all Feeling down, depressed, or hopeless: not at all Feel stressed/tense/nervous/anxious/difficulty sleeping: not at all Do you think of yourself as: straight/heterosexual Gender Identity: female Exam Narrative Exam Narrative: Nurses notes and vital signs reviewed and patient is not hypoxic. General: Well-appearing and in no apparent distress. Skin: Warm, dry, no pallor noted. No rash. Head: Normocephalic, atraumatic. Neck: Supple, non-tender. Eye: Pupils are equal, round and EOMI. No scleral icterus. Ears, Nose, Mouth, and Throat: TM are clear, no nasal mucosal hypertrophy. Oral mucosa is moist, no posterior oropharynx erythema, uvula is mid-line Cardiovascular: Regular Rate and Rhythm without murmur, gallop or rub. Respiratory: No accessory muscle use or respiratory distress. Lungs are clear to auscultation, no wheezing, rales or rhonchi Chest Wall: no tenderness Back: No midline thoracic or lumbar vertebral tenderness. No CVA tenderness Musculoskeletal: normal ROM, splint to the left upper extremity GI: Abdomen is soft, non-distended. Normal bowel sounds. No masses appreciated. No tenderness to palpation. No rebound, guarding, or rigidity noted. Neurological: A&O x4. No cranial nerve dysfunction observed. No truncal ataxia. Moves all extremities. Sensation intact. Psychiatric: Cooperative and interactive. Normal mood and affect. Constitutional Vital Signs, click to edit/add: Last Vital Signs Temp 98.3 F 06/17/24 10:35 Pulse 64 06/17/24 10:35 Resp 18 06/17/24 10:35 BP 162/76 H 06/17/24 10:35 Pulse Ox 97 06/17/24 10:35 O2 Del Method Room Air 06/17/24 10:35 Course Vital Signs Vital signs: Vital Signs Temperature 98.3 F 06/17/24 10:35 Pulse Rate 64 06/17/24 10:35 Respiratory Rate 18 06/17/24 10:35 Blood Pressure 162/76 H 06/17/24 10:35 Pulse Oximetry 97 06/17/24 10:35 Oxygen Delivery Method Room Air 06/17/24 10:35 Temperature 98.3 F 06/17/24 10:35 Pulse Rate 64 06/17/24 10:35 Respiratory Rate 18 06/17/24 10:35 Blood Pressure 162/76 H 06/17/24 10:35 Pulse Oximetry 97 06/17/24 10:35 Oxygen Delivery Method Room Air 06/17/24 10:35 Medical Decision Making MDM Narrative Medical decision making narrative: The patient EKG was showing sinus rhythm with a heart rate of [address] elevation or depression Patient was not in any distress at any time it was noted that her pain only comes whenever she take a deep breath and also noted that the patient is not taking her Percocet that she is supposed to be taking for pain She was also not using her incentive spirometer D-dimer was ordered because of the patient questioned PE initially although with her presentation it is less likely especially with the history of fractures and multiple other pathology The patient right now her presentation is less likely to be PE she does not have any tachycardia no hypoxemia no continuation of pain is only there whenever she take a deep breath and she did not even request anything for pain while she was in the ER, The patient initially had a D-dimer that was elevated but initially after establishing IV access was not successful and with the fact that the patient presentation less likely to be PE I did speak with the patient and explained my reasoning and the fact that I do not think that she have PE at the moment and I do not want exposure to radiation or put a central line for that reason as it not needed The patient understands and she agrees with above-mentioned plan She will just continue using incentive spirometer and continue taking her pain medication in case of any worsening within the next 24 hours she will come back to the ER The patient is to follow up with primary care physician in next 2-3 days or to return to the emergency department should any of the signs or symptoms worsen or new symptoms develop. The patient agrees with the following Diagnosis and Treatment plan and the patient will be discharged home. Lab Data Labs: Lab Results 06/17/24 Range/Units 11:31 WBC 9.0 (4.0-11.0) 10^3/uL RBC 4.03 L (4.20-5.40) 10^6/uL Hgb 11.4 L (12.0-16.0) g/dL Hct 36.3 (36.0-48.0) % MCV 90.1 (81.0-99.0) fL MCH 28.3 (26.7-34.0) pg MCHC 31.4 (29.9-35.2) g/dL RDW 15.8 H (11.0-15.0) % Plt Count 308 (150-450) 10^3/uL MPV 9.8 (9.5-13.5) fL Neut % (Auto) 65.8 (43.0-75.0) % Lymph % (Auto) 20.0 L (20.5-60.0) % [place]ois % (Auto) 7.3 (1.7-12.0) % Eos % (Auto) 4.1 (0.9-7.0) % Baso % (Auto) 1.1 (0.2-2.0) % Neut # (Auto) 5.9 (1.4-6.5) 10^3/uL Lymph # (Auto) 1.8 (1.2-3.8) 10^3/uL [place] # (Auto) 0.7 (0.3-0.8) 10^3/uL Eos # (Auto) 0.4 (0.0-0.7) 10^3/uL Baso # (Auto) 0.1 (0.0-0.1) 10^3/uL Abs Immat Gran (auto) 0.15 H (0.00-0.03) 10^3/uL Imm/Tot Granulo (auto) 1.7 H (0.0-0.5) % D-Dimer 3.27 H* (<=0.59) mg/L FEU Sodium 138 (136-145) mmol/L Potassium 4.4 (3.5-5.1) mmol/L Chloride 103 (98-107) mmol/L Carbon Dioxide 30.0 (21.0-32.0) mmol/L Anion Gap 9.4 BUN 23.0 H (7.0-18.0) mg/dL Creatinine 0.94 (0.55-1.02) mg/dL Est GFR ( Amer) >60 (>=60 mL/min/1.73m^2) Est GFR (Non-Af Amer) 59 L (>=60 mL/min/1.73m^2) BUN/Creatinine Ratio 24.5 Glucose 90 (74-106) mg/dL Calcium 8.4 L (8.5-10.1) mg/dL Total Bilirubin 0.3 (0.2-1.0) mg/dL AST 18 (15-37) U/L ALT 16 (14-59) U/L Alkaline Phosphatase 106 (46-116) U/L Troponin I High Sens 5.3 (4.0-51.3) pg/mL Total Protein 6.8 (6.4-8.2) g/dL Albumin 3.0 L (3.4-5.0) g/dL Globulin 3.8 g/dL Albumin/Globulin Ratio 0.8 Discharge Plan Discharge Chief Complaint: Chest Pain Clinical Impression: Chest pain, pleuritic Patient Disposition: Home, Self-Care Time of Disposition Decision: 13:52 Condition: Good Prescriptions / Home Meds: No Action aripiprazole [Abilify] 30 mg tablet 30 mg PO QDAY ropinirole 1 mg tablet 1 mg PO QDAY PRN (Reason: restless leg(s)) albuterol sulfate 90 mcg/actuation aerosol powdr breath activated 2 inh inhalation Q6H PRN (Reason: shortness of breath or wheezing) diclofenac sodium 50 mg tablet,delayed release (DR/EC) 50 mg PO BID levothyroxine [Euthyrox] 50 mcg tablet 50 mcg PO QDAY Qty: 30 11RF magnesium 250 mg tablet 250 mg PO DAILY ferrous sulfate [Holly-Time] 325 mg (65 mg iron) tablet 325 mg PO DAILY PreserVision AREDS 4,296 mcg-226 mg-90 mg capsule 1 cap PO DAILY Trelegy Ellipta 100-62.5-25 mcg blister with device 1 inh inhalation DAILY amitriptyline 50 mg tablet 50 mg PO .qhs lisinopril 40 mg tablet 40 mg PO .QD fluoxetine 20 mg capsule 80 mg PO .QD baclofen 5 mg tablet 5 mg PO QDAY PRN (Reason: IF NEEDED FOR SKELETAL MUSCULAR PAIN) liothyronine 5 mcg tablet 5 mcg PO .QD omeprazole 20 mg capsule,delayed release(DR/EC) 20 mg PO BID oxycodone-acetaminophen 5-325 mg Tablet 1 tab PO Q6H PRN (Reason: pain) 7 Days Qty: 28 0RF potassium 99 mg tablet PO DAILY vitamin B complex Tablet 1 tab PO DAILY oxycodone-acetaminophen [Percocet] 5-325 mg tablet 1 tab PO Q4H PRN (Reason: pain) 7 Days Qty: 40 0RF Print Language: Ghanaian Instructions: Chest Pain (DC) Referrals: POLO SILVA [Primary Care Provider] - 1 week Discharge Date/Time: 06/17/24 14:15
== END 2024-06-17 14:15 | disposition home or self-care (01) ==
PROVIDERS: Emergency Provider Emergency Medicine; PCP Nurse Practitioner Family
DX: R07.81 Pleurodynia (principal); Z98.890 Other specified postprocedural states; Z90.722 Acquired absence of ovaries, bilateral; Z90.49 Acquired absence of other specified parts of digestive tract; Z90.710 Acquired absence of both cervix and uterus; Z87.891 Personal history of nicotine dependence; R07.9 Chest pain, unspecified
CPT/HCPCS: 36415; 71045; 80053; 84484; 85025; 85378; 93005; 99285

== ENCOUNTER 2024-06-25 08:11 | Outpatient (OUT) | payer OTHER, SELFPAY ==
--- NOTE | 2024-06-25 | XR_ITS ---
The [address] [address] Patient Name: MELANIE TOMPKINS MRN: [id number] date: 1955 Sex: F Assigned Patient Location: Current Patient Location: Accession/Order Number: [id number] Exam Date: 06/25/2024 08:35 Report Date: 06/27/2024 15:44 At the request of: RAUDEL ROYAL Procedure: XR wrist LT min 3V PROCEDURE: XR wrist LT min 3V HISTORY: LEFT WRIST PAIN COMPARISON: XR wrist left 06/06/2024 FINDINGS: BONES: Distal radius fracture via anterior plate and screws. Oblique fracture of distal ulna through the base of the ulnar styloid process with slight proximal retraction. Intact carpal bones and joints. SOFT TISSUES:Soft tissue swelling surrounding the wrist. EFFUSION:None visible. OTHER: Negative. XR/XR wrist LT min 3V IMPRESSION: 1. Postoperative repair of distal radius fractures and grossly stable alignment of distal ulnar fracture. Electronically authenticated by: RAUDEL ESTRADA Date: 06/27/2024 15:44
--- OUTSIDE RECORDS SUMMARY | 2024-06-25 08:28 | XMS_ITS | CCD ---
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 [address] [address] [address] Deborah Mohan Cytoplasmic (C-ANCA) <1:20 Normal Neg:<1:20 The Comment on above: Result Comment: Perf ormed at: CB Performed By: #### B PHILLIP JONES CMP #### Laboratory [address] [address] [address] Deborah Mohan Perinuclear (P-ANCA) <1:20 Normal Neg:<1:20 The Comment on above: Result Comment: The presence of positive fluorescence exhibiting P-ANCA or C-ANCA patterns alone is not specific for the diagnosis of Marlin's Granulomatosis (WG) or microscopic polyangiitis. Decisions about treatment should not be based solely on ANCA IFA results. The International ANCA Group Consensus recommends follow up testing of positive sera with both PA-3 and MPO-ANCA enzyme immunoassays. As many as 5% serum samples are positive only by EIA. Ref. AM J Clin Pathol 1999;111:507-513. Performed at: CB Performed By: #### B PHILLIP JONES CMP #### Laboratory [address] [place] [address] Dr. Deborah Mohan ANTISCLERODERMA ABon 022 Antiscleroderma-70 Antibodies <0.2 Normal 0.0-0.9 [facility] Comment on above: Performed By: #### A NARF #### Laboratory [address] [place] [address] CHEST WO CONon [...] incidental findings, as described above. Normal The CYCLIC CITRULLINATED PEPTIDE AB (CCP)on 03-09-2022 CCP Antibodies IgG/IgA 6 units Normal 0-19 The Comment on above: Result Comment: Nega tive <20 Weak positive 20 - 39 Moderate positive 40 - 59 Strong positive >59 Performed By: #### B DIRECTOR OF ROOMS, HSTROPN, CMP #### Laboratory [address] [place], [place] [address] Dr. Deborah Mohan IGG SUBCLASSES (1-4) AND TOT Kade 03-09-2022 IgG, Subclass 1 448 mg/dL Normal 248-810 [facility] Comment on above: Performed By: #### B DIRECTOR OF ROOMS, HSTROPN, CMP #### Laboratory [address] [address] Deborah Mohan IgG, Subclass 2 253 mg/dL Normal 130-555 [facility] Comment on above: Performed By: #### B DIRECTOR OF ROOMS, HSTROPN, CMP #### Laboratory [address] [address] [address] Deborah Mohan IgG, Subclass 3 95 mg/dL Normal 15-102 [facility] Comment on above: Performed By: #### B DIRECTOR OF ROOMS, HSTROPN, CMP #### Laboratory [address] [address] Deborah Mohan IgG, Subclass 4 10 mg/dL Normal 2-96 [facility] Comment on above: Performed By: #### B DIRECTOR OF ROOMS, HSTROPN, CMP #### Laboratory [address] [place], [place] [address] Dr. Deborah Mohan Immunoglobulin G, Qn, Serum 658 mg/dL Normal 586-1602 [facility] Comment on above: Performed By: #### B DIRECTOR OF ROOMS, HSTROPN, CMP #### Laboratory [address] [address] Deborah Mohan IMMUNOGLOBULIN E, TOTALon Immunoglobulin E, Total 5 IU/mL Critically low 6-495 [facility] Comment on above: Performed By: #### I GETOT #### [address] [place], [place] [address]MwDr. Deborah Mohan MICHELL EIA W/REFLEX 5 BIOMARKER Son 03-08-2022 MICHELL Direct Negative Normal Negative [facility] Comment on above: Performed By: #### A NARF #### Laboratory [address] [address] [address] Deborah Mohan ANGIOTENSION-CONVERTING ENZY ME (FRANCESCO)on 03-08-2022 FRANCESCO 32 U/L Normal 14-82 [facility] Comment on above: Performed By: #### A NGIOC #### [address] [place] [address]DrAnkur Mohan ANTIGLOMERULAR BASEMENT MEMB ROMMEL ABSon 03-08-2022 Anti-GBM Antibodies <0.2 Normal 0.0-0.9 [facility] Comment on above: Performed By: #### A GBM #### Laboratory [address] [address] [address] Deborah Mohan IMMUNOGLOBULIN IGA QUANTITIA VEon 03-06-2022 Immunoglobulin A, Qn, Serum 229 mg/dL Normal 87-352 [facility] Comment on above: Performed By: #### A NARF #### Laboratory [address] [address] [address] Deborah Mohan IMMUNOGLOBULIN IGM QUANTITAT IVEon 03-06-2022 Immunoglobulin M, Qn, Serum 83 mg/dL Normal 26-217 [facility] Comment on above: Performed By: #### B DIRECTOR OF ROOMS, HSTROPN, CMP #### Laboratory [address] [address] [address] Deborah Mohan RHEUMATOID FACTORon 03-06-20 22 RA Latex Turbid. 10.9 IU/mL Normal <14.0 [facility] Comment on above: Performed By: #### R F #### [id number] [place] [address]Dr. Deborah Mohan CREATININEon 03-05-2022 Creatinine [Mass/Vol] 1.38 mg/dL Critically high 0.55-1.02 [facility] Comment on above: Performed By: #### C MELVINA #### [id number] [place] [address]DrAnkur Mohan EGFR-AF COMORAN 46 mL/min/1.73m2 Critically low >=60 The Comment on above: Performed By: #### C MELVINA #### [address] [place], [place] [address]TvAnkur Mohan EGFR-NON AF COMORAN 38 mL/min/1.73m2 Critically low >=60 [facility] Comment on above: Performed By: #### C MELVINA #### [address] [place], [place] [address]JvDr. Deborah Mohan SED RATE WESTERGRENon 2021 SED RATE 92 mm/hr Critically high <=30 [facility] Comment on above: Performed By: #### B DIRECTOR OF ROOMS, HSTROPN, CMP #### Laboratory [address] [place], [place] [address] Dr. Deborah Mohan XR DEXA BONE DENSITYon [...] by: ROBERT CONDON Date: 2022-03-05 16:56 Normal [facility] XR CHEST 1 [...] by: ROBERT NOVAK Date: 2022-02-28 22:27 Normal [facility] XR KNEE LUANA 4V [...] RAUDEL ESTRADA Date: 2022-01-29 11:09 Normal The CBC AUTO DIFFon 11-29-2021 BASO # 0.1 103/ul Normal 0.0-0.1 The Comment on above: Performed By: #### C BC #### [address] [place] [address]Dr. Deborah Mohan Basophils/100 WBC (Bld) 0.8 % Normal 0.2-2.0 The Comment on above: Performed By: #### C BC #### [address] [place] [address]Dr. Deborah Mohan EO # 0.3 103/ul Normal 0.0-0.7 The Comment on above: Performed By: #### C BC #### [address] [place] [address]Dr. Deborah Mohan Eosinophils/100 WBC (Bld) 2.2 % Normal 0.9-7.0 The Comment on above: Performed By: #### C BC #### [address] [place], [place] [address]Dr. Deborah Mohan Erythrocyte distribution width (RBC) [Ratio] 21.2 % Critically high 11.0-15.0 The Comment on above: Performed By: #### C BC #### [address] [place], [place] [address]Dr. Deborah Mohan Hematocrit (Bld) [Volume fraction] 33.2 % Critically low 36.0-48.0 The Comment on above: Performed By: #### C BC #### [address] [place] [address]Dr. Deobrah Mohan Hemoglobin (Bld) [Mass/Vol] 10.3 g/dL Critically low 12.0-16.0 [facility] Comment on above: Performed By: #### C BC #### [address] [place] [address]Dr. Deborah Mohan IG # 0.11 10e3/ul Critically high 0.00-0.03 [facility] Comment on above: Performed By: #### C BC #### [address] [place] [address]Dr. Deborah Mohan IG % 0.9 % Critically high 0.0-0.5 [facility] Comment on above: Performed By: #### C BC #### [address] [place] [address]Dr. Deborah Mohan LYMPH # 2.2 103/ul Normal 1.2-3.8 [facility] Comment on above: Performed By: #### C BC #### [address] [place] [address]Dr. Deborah Mohan Lymphocytes/100 WBC (Bld) 18.5 % Critically low 20.5-60.0 [facility] Comment on above: Performed By: #### C BC #### [address] [place] [address]Dr. Deborah Mohan MANUAL DIFF REQ NO Normal [facility] Comment on above: Performed By: #### C BC #### [address] [place] [address]Dr. Deborah Mohan MCH (RBC) [Entitic mass] 26.3 pg Critically low 26.7-34.0 The Comment on above: Performed By: #### C BC #### [address] [place] [address]Dr. Deborah Mohan MCHC (RBC) [Mass/Vol] 31.0 g/dL Normal 29.9-35.2 [facility] Comment on above: Performed By: #### C BC #### [address] [place] [address]Dr. Deborah Mohan MCV (RBC) [Entitic vol] 84.9 fL Normal 81.0-99.0 The Comment on above: Performed By: #### C BC #### [address] [place] [address]Dr. Deborah Mohan MONO # 0.6 103/ul Normal 0.3-0.8 The Comment on above: Performed By: #### C BC #### [address] [place] [address]Dr. Deborah Mohan Monocytes/100 WBC (Bld) 5.3 % Normal 1.7-12.0 The Comment on above: Performed By: #### C BC #### [id number] [place], [place] [address]Dr. Deborah Mohan NEUT # 8.4 103/ul Critically high 1.4-6.5 [facility] Comment on above: Performed By: #### C BC #### [id number] [place], [place] [address]Dr. Deborah Mohan Neutrophils/100 WBC (Bld) 72.3 % Normal 43.0-75.0 The Comment on above: Performed By: #### C BC #### [id number] [place], [place] [address]Dr. Deborah Mohan Platelet mean volume (Bld) [Entitic vol] 10.1 fL Normal 9.5-13.5 The Comment on above: Performed By: #### C BC #### [address] [place] [address]Dr. Deborah Mohan PLT 351 103/ul Normal 150-450 The Comment on above: Performed By: #### C BC #### [address] [place] [address]Dr. Deborah Mohan RBC 3.91 106/ul Critically low 4.20-5.40 [facility] Comment on above: Performed By: #### C BC #### [address] [place], [place] [address]QbAnkur Mohan WBC 11.6 103/ul Critically high 4.0-11.0 [facility] Comment on above: Performed By: #### C BC #### [address] [place], [place] [address]Fj. Deborah Mohan CTA CHEST WO W CONon [...] 2. Bilateral peripheral fibrosis and/or scarring with ekka-rd-ablagjgu groundglass densities. The groundglass densities are slightly decreased compared to the prior scan. 3. Old calcified granulomas in the chest and abdomen. 4. Large hiatal hernia. 5. Moderate diffuse osteopenia. Electronically authenticated by: BERNARDO DENNY Date: 2021-11-29 20:31 Normal The D-DIMERon 11-29-2021 D-DIMER 1.14 mg/L FEU Critically high <=0.59 [facility] Comment on above: Performed By: #### A NARF #### Laboratory [address] [place] [address] Dr. Deborah Mohan D-DIMER COMMENTS SEE BELOW Normal [facility] Comment on [...] hospitalization. Performed By: #### A NARF #### Laboratory [address] [place] [address] Dr. Deborah Mohan PROF CHEM 8 (BAS METB)on Anion gap [Moles/Vol] 11.7 mmol/L Normal [facility] Comment on above: Performed By: #### B KYLEE HSTROPN #### Laboratory [address] [place] [address] Dr. Deborah Mohan Calcium [Mass/Vol] 8.7 mg/dL Normal 8.5-10.1 [facility] Comment on above: Performed By: #### B KYLEE HSTROPN #### Laboratory [address] [place] [address] Dr. Deborah Mohan Chloride [Moles/Vol] 107 mmol/L Normal 98-107 The Comment on above: Performed By: #### B KYLEE HSTROPN #### Laboratory [address] [place] [address] Dr. Deborah Mohan CO2 [Moles/Vol] 25.3 mmol/L Normal 21.0-32.0 [facility] Comment on above: Performed By: #### B KYLEE, HSTROPN #### Laboratory [address] [address] [address] Deborah Mohan Creatinine [Mass/Vol] 0.98 mg/dL Normal 0.55-1.02 [facility] Comment on above: Performed By: #### B KYLEE, HSTROPN #### Laboratory [address] [address] [address] Deborah Mohan EGFR-AF COMORAN >60 Normal >=60 [facility] Comment on above: Performed By: #### B KYLEE, HSTROPN #### Laboratory [address] [place] [address] Dr. Deborah Mohan EGFR-NON AF COMORAN 56 mL/min/1.73m2 Critically low >=60 The Comment on above: Performed By: #### B KYLEE, HSTROPN #### Laboratory [address] [place] [address] Dr. Deborah Mohan Glucose [Mass/Vol] 105 mg/dL Normal 74-106 [facility] Comment on above: Performed By: #### B KYLEE, HSTROPN #### Laboratory [address] [place] [address] Dr. Deborah Mohan Potassium [Moles/Vol] 4.0 mmol/L Normal 3.5-5.1 The Comment on above: Performed By: #### B KYLEE, HSTROPN #### Laboratory [address] [place] [address] Dr. Deborah Mohan Sodium [Moles/Vol] 140 mmol/L Normal 136-145 [facility] Comment on above: Performed By: #### B KYLEE, HSTROPN #### Laboratory [address] [place] [address] Dr. Deborah Mohan Urea nitrogen [Mass/Vol] 21.0 mg/dL Critically high 7.0-18.0 [facility] Comment on above: Performed By: #### B KYLEE, HSTROPN #### Laboratory [address] [place], [place] [address] Dr. Deborah Mohan Urea nitrogen/Creatinine [Mass ratio] 21.4 mg/mg Normal [facility] Comment on above: Performed By: #### B KYLEE, HSTROPN #### Laboratory [address] [address] [address] Deborah Mohan TROPONIN, HIGH SENSITIVITYon 11-29-2021 HSTROP 4.5 pg/mL Normal 4.0-51.3 [facility] Comment on above: Result Comment: CUT- OFF POINTS HAVE BEEN ESTABLISHED BASED ON THE FOURTH UNIVERSAL DEFINITIONS OF MYOCARDIAL INFARCTION. THE UPPER REFERENCE LIMIT (URL) OF TROPONIN, DEFINED THE 99TH PERCENTILE OF cTnI DISTRIBUTION IN A REFERENCE POPULATION, HAS BEEN CONFIRMED THE DECISION THRESHOLD FOR MS DIAGNOSIS. Performed By: #### H STROPN #### [address] [place], [place] [address]Dr. Deborah Mohan HSTROP 6.0 pg/mL Normal 4.0-51.3 [facility] Comment on above: Result Comment: CUT- OFF POINTS HAVE BEEN ESTABLISHED BASED ON THE FOURTH UNIVERSAL DEFINITIONS OF MYOCARDIAL INFARCTION. THE UPPER REFERENCE LIMIT (URL) OF TROPONIN, DEFINED THE 99TH PERCENTILE OF cTnI DISTRIBUTION IN A REFERENCE POPULATION, HAS BEEN CONFIRMED THE DECISION THRESHOLD FOR MS DIAGNOSIS. Performed By: #### B KYLEE, HSTROPN #### Laboratory [address] [address] [address] Deborah Mohan XR CHEST 1 Von [...] KANDY BARRY Date: 2021-11-29 19:20 Normal The XR LSPINE W_OBLS AND FLEX_EX Ton 11-12-2021 [...] by: RAUDEL ESTRADA Date: 2021-11-12 07:56 Normal [facility] CALCIUMon 11-11-2021 Calcium [Mass/Vol] 9.0 mg/dL Normal 8.5-10.1 [facility] Comment on above: Performed By: #### A NARF #### Laboratory [address] [address] [address] Deborah Mohan CREATININEon 11-11-2021 Creatinine [Mass/Vol] 1.47 mg/dL Critically high 0.55-1.02 [facility] Comment on above: Performed By: #### A NARF #### Laboratory [address] [address] [address] Deborah Mohan EGFR-AF COMORAN 43 mL/min/1.73m2 Critically low >=60 [facility] Comment on above: Performed By: #### A NARF #### Laboratory [address] [address] [address] Deborah Mohan EGFR-NON AF COMORAN 35 mL/min/1.73m2 Critically low >=60 [facility] Comment on above: Performed By: #### A NARF #### Laboratory [address] [place] [address] Dr. Deborah Mohan Vital Signs Date Time Vital Sign Value Performing Clinician Faci lity 03-20-2024 14:57-0400 Blood Pressure Location Anderson SHASHA [facility] [place] 03-20-2024 14:57-0400 Diastolic blood pressure 82 mm[Hg] Anderson NILL [facility] [place] 03-20-2024 14:57-0400 Heart rate 70 /min Anderson NILL [facility] Surgery [place] 03-20-2024 14:57-0400 Respiratory rate 16 /min Anderson NILL [facility] [place] 03-20-2024 14:57-0400 Systolic blood pressure 126 mm[Hg] Anderson NILL [facility] Surgery [place] Encounters Encounter Date Encounter Type Care Provider Facility Start: 04-25-2024 End: 04-25-2024 ambulatory Anderson Wiley RICHL Facility:CD:[id number] 7 Start: 03-20-2024 End: 03-20-2024 ambulatory Luisito Townsend Facility: [place] Start: 03-20-2024 End: 03-20-2024 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 procedure Anderson VILLANUEVAL [facility] Surgery [place] Start: 02-10-2024 ambulatory Luisito Hoy Facility:[facility] Start: 11-28-2023 End: 11-28-[address] [facility] Start: 10-18-2023 End: 10-18-[address] [facility] Start: 08-01-2023 End: 08-02-2023 ambulatory Gabriella [...] Start: 05-08-2022 End: 05-08-2022 ambulatory Clarita Nena Facility:[facility] Start: 05-08-2022 End: 05-08-2022 ambulatory [employer] CAPTAIN-C Clarita Nena Work Phone: [facility] Work Phone: Start: 05-08-2022 End: 05-08-2022 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 procedure [employer]OWBOAT CAPTAIN-C Clarita Nena Work Phone: [facility] Start: [...] 04-01-2018 Emergency department patient visit BRANDON RUSSELL [facility] Start: 12-11-2017 End: 12-11-2017 Emergency department patient visit ROBERT HURLEY Facility:[facility] Procedures Date Procedure Procedure Detail Performing Clinician Start: 05-08-2022 Plain X-ray of left wrist [employer]BOAT CAPTAIN-C Clarita Blakeault Work Phone: Start: 05-08-2022 X-ray of left ankle [employer]BO[employer]TAIN -C Clarita Nena Work Phone: Start: 04-01-2018 [...] Date Payer Category Payer Unknown 2022 Medicare [id number] 2022 Self-pay 1959 Unknown [id number] 1953 Unknown [id number] 2.16.84 0.1.677141.3.579.2.593 1953 Unknown [id number] 2.16.84 0.1.109004.3.579.2.593 1953 Unknown [id number] 2.16.84 0.1.078769.3.579.2.593 1953 Unknown [id number] 2.16.84 0.1.792716.3.579.2.593 1953 Unknown [id number] 2.16.84 0.1.718756.3.579.2.593 1953 Unknown [id number] 2.16.84 0.1.734115.3.579.2.593 1953 Unknown [id number] 2.16.84 0.1.160662.3.579.2.593 1953 Unknown [id number] 2.16.84 0.1.578703.3.579.2.593 1953 Unknown [id number] 2.16.84 0.1.192408.3.579.2.593 1953 Unknown [id number] 2.16.84 0.1.677496.3.579.2.593 1953 Unknown [id number] 2.16.84 0.1.275504.3.579.2.593 1953 Unknown [id number] 2.16.84 0.1.434586.3.579.2.593 1953 Unknown [id number] 2.16.84 0.1.650786.3.579.2.593 1953 Unknown [id number] 2.16.84 0.1.871761.3.579.2.593 1953 Unknown [id number] 2.16.84 0.1.656746.3.579.2.593 1953 Unknown [id number] 2.16.84 0.1.893037.3.579.2.593 1953 Unknown [id number] 2.16.84 0.1.020221.3.579.2.593 1953 Unknown [id number] 2.16.84 0.1.142106.3.579.2.593 1953 Unknown [id number] 2.16.84 0.1.756745.3.579.2.593 1953 Unknown [id number] 2.16.84 0.1.343067.3.579.2.593 1953 Unknown [id number] 2.16.84 0.1.611577.3.579.2.593 1953 Unknown [id number] 2.16.84 0.1.434748.3.579.2.593 1953 Unknown [id number] 2.16. 840.1.555107.3.579.2.196 1953 Unknown [id number] 2.16.8 40.1.450945.3.579.2.727 1953 Unknown [id number] 2.16.8 40.1.106273.3.579.2.727 Medicare [id number] Unknown [facility] [id number] Unknown Jesus [employer]/BS [id number] Unknown [id number] 2.16.8 40.1.567747.3.579.2.531 Social History Date Type Detail Facility [facility] Work Phone: Start: 1955 Sex Assigned At Female [facility] Start: 03-20-2024 Tobacco smoking status Ex-smoker (fi nding) [facility] Tobacco smoking status Never [facility] Sex Assigned At Female [facility] Functional Status Date Assessment Result Facility 03-20-2024 Functional Status N/A [facility] Clinical Notes 11-05-2021 to 03-20-2024 Note Date [...] 1 tab(s), Or (more content not included)... [facility] Comment on above: Result Comment: Elec tronically Signed By: SHASHA GRANT, Anderson Serrano.nigel\Date and Time Signed: 03/20/24 16:53 EDT 11-28-2023 Note [facility] Cardiology Clinic Note Chief Complaint: Patient here [...] mouth in the morning., Disp: , Rfl: pwrahtzepl-pftqvmfnizvzf-pusu 50-325-40 mg tablet, Take 1 tablet by [...] sinus rhythm Echocar (more content not included)... [facility] 10-18-2023 Note [facility] Cardiology Clinic Note Chief Complaint: New patient here to establish care. Ref from Dr. Townsend for abnormal EKG. She also wore 7 day Holter monitor, and says she did not work while wearing this. She works at [employer] and says it's very fast paced. States she drinks a 5 Hour Energy shot almost every day. She was admitted to [facility] for migraine recently and was found to have abnormal EKG. Recently has noticed a twinge of chest pain. C/o DAI, palpitations, and lightheadedness. HPI: Mary Vick is a 68 y.o. female With a history of hypertension and hypothyroidism who presents due to an abnormal Holter monitor She was admitted to the for migraine; a monitor revealed both SVT [...] Plan: Routine labs (more content not included)... [facility] 07-08-2022 Note CONSULTATION PROCEDURE DATE: 07/08/2022 [...] in the clinic in three months. The 06-24-2022 Note CONSULTATION CONSULTATION DATE: 06/24/2022 HISTORY [...] at a time, as she works at [employer]. Current medications include Percocet 5/325 daily, diclofenac [...] pending approval for her knee injections. The 04-08-2022 Note CONSULTATION CONSULTATION DATE: 04/08/2022 HISTORY [...] three months' time unless otherwise indicated. The 03-09-2022 Note CONSULTATION CONSULTATION DATE: 03/09/2022 CHIEF [...] to proceed. CC: Natividad Silva CNP The 01-28-2022 Note CONSULTATION CONSULTATION DATE: 01/30/2022 HISTORY [...] and re-evaluation of her bursa injection. The 01-28-2022 Note CONSULTATION PROCEDURE DATE: 01/30/2022 PREOPERATIVE [...] be followed up in the clinic. The 11-12-2021 Note PROCEDURE: XR HIPS B IL [...] by: RAUDEL ESTRADA Date: 2021-11-12 07:50 The 11-05-2021 Note CONSULTATION PROCEDURE DATE:11/05/2021 PREOPERATIVE DIAGNOSIS: [...] be followed up in the office. [facility] Signed and Approved by: JOEL RAMON . 11/18/2021 16:24:00 The 11-05-2021 Note CONSULTATION CONSULTATION DATE: 11/05/2021 HISTORY [...] time, was working half a day at [employer] and since then has increased to full [...] three months' time unless otherwise indicated. [facility] Signed and Approved by: JOEL RAMON . 11/18/2021 16:24:00 The Evaluation + Plan note No data available for this section [facility] Evaluation note No assessment inform ation available [facility] Work Phone: Hospital Discharge instructions No data available for this section [facility] Progress note No data available for this section [facility] Summary Purpose Family History No Family [...] and content) DATE CREATED AUTHOR 12/21/2017 [facility] DATE CREATED AUTHOR AUTHOR'S ORGANIZ ATION 05/01/2018 [facility] DATE CREATED AUTHOR AUTHOR'S ORGANIZ ATION 05/17/2022 [facility] [facility] DATE CREATED AUTHOR AUTHOR'S ORGANIZ ATION 10/06/2022 [facility] DATE CREATED AUTHOR AUTHOR'S ORGANIZ ATION 08/03/2023 [place] DATE CREATED AUTHOR AUTHOR'S ORGANIZ ATION 11/28/2023 [facility] DATE CREATED AUTHOR AUTHOR'S ORGANIZ ATION 05/03/2024 [facility] Care Teams (unrecognized sec tion [...] BE BASED ON THE PRIMARY CLINICAL RECORDS. [facility]. provides no warranty or guarantee of the accuracy or completeness of information in this document.
== END 2024-06-25 08:12 | disposition home or self-care (01) ==
LOC: EC 08:11
PROVIDERS: PCP Nurse Practitioner Family; Visit Provider Orthopaedic Surgery
DX: S52.572D Other intraarticular fracture of lower end of left radius, subsequent encounter for closed fracture with routine healing (principal)
CPT/HCPCS: 73110

== ENCOUNTER 2024-07-04 11:24 | Outpatient (OUT) | payer MEDICARE, SELFPAY ==
--- OUTSIDE RECORDS SUMMARY | 2024-07-04 11:43 | XMS_ITS | CCD ---
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 4.0-51.3 [facility] Comment on above: Result Comment: CUT- OFF POINTS HAVE BEEN ESTABLISHED BASED ON THE FOURTH UNIVERSAL DEFINITIONS OF MYOCARDIAL INFARCTION. THE UPPER REFERENCE LIMIT (URL) OF TROPONIN, DEFINED THE 99TH PERCENTILE OF cTnI DISTRIBUTION IN A REFERENCE POPULATION, HAS BEEN CONFIRMED THE DECISION THRESHOLD FOR NE DIAGNOSIS. Performed By: #### H DENIS, CMP ####[facility] [address] [place], [place] [address]Dr. Deborah Mohan XR CHEST 1 Von 04-07-2022 [...] ANDERSON ALMANZAR Date: 2022-04-07 03:11 Normal [facility] HEMOGLOBINon 03-12-2022 Hemoglobin (Bld) [Mass/Vol] 9.2 g/dL Critically low 12.0-16.0 [facility] Comment on above: Performed By: #### A NARF #### [facility] [address] [address] [address] Deborah Mohan ANTI NEUTROPHIL CYTOPLASMIC AB (ANCA) PRon 03-09-2022 Anti-MPO Antibodies <0.2 Normal 0.0-0.9 [facility] Comment on above: Result Comment: Perf ormed at: BN Performed By: #### B ARCHITECTURAL SALES CONSULTANT, HSTROPN, CMP #### [facility] [address] [address] [address] Deborah Mohan Anti-PR3 Antibodies <0.2 Normal 0.0-0.9 [facility] Comment on above: Result Comment: Perf ormed at: BN Performed By: #### B ARCHITECTURAL SALES CONSULTANT, HSTROPN, CMP #### [facility] [address] [address] [address] Deborah Mohan Atypical pANCA 1:160 Critically high Neg:<1:20 [facility] Comment on above: Result Comment: The atypical pANCA pattern has been observed in a significant percentage of patients with ulcerative colitis, primary sclerosing cholangitis and autoimmune hepatitis. Performed at: CB Performed By: #### B ARCHITECTURAL SALES CONSULTANT, HSTROPN, CMP #### [facility] [address] [address] [address] Deborah Mohan Cytoplasmic (C-ANCA) <1:20 Normal Neg:<1:20 [facility] Comment on above: Result Comment: Perf ormed at: CB Performed By: #### B PHILLIP JONES CMP #### [facility] [address] [address] [address] Deborah Mohan Perinuclear (P-ANCA) <1:20 Normal Neg:<1:20 [facility] Comment on above: Result Comment: The presence of positive fluorescence exhibiting P-ANCA or C-ANCA patterns alone is not specific for the diagnosis of Marlin's Granulomatosis (WG) or microscopic polyangiitis. Decisions about treatment should not be based solely on ANCA IFA results. The International ANCA [employer] Consensus recommends follow up testing of positive sera with both ND-3 and MPO-ANCA enzyme immunoassays. As many as 5% serum samples are positive only by EIA. Ref. AM J Clin Pathol 1999;111:507-513. Performed at: CB Performed By: #### B PHILLIP JONES CMP #### [facility] [address] [place] [address] Dr. Deborah Mohan ANTISCLERODERMA ABon 022 Antiscleroderma-70 Antibodies <0.2 Normal 0.0-0.9 [facility] Comment on above: Performed By: #### A NARF #### [facility] [address] [place] [address] CHEST WO CONon [...] incidental findings, as described above. Normal [facility] CYCLIC CITRULLINATED PEPTIDE AB (CCP)on 03-09-2022 CCP Antibodies IgG/IgA 6 units Normal 0-19 [facility] Comment on above: Result Comment: Nega tive <20 Weak positive 20 - 39 Moderate positive 40 - 59 Strong positive >59 Performed By: #### B ARCHITECTURAL SALES CONSULTANT, HSTROPN, CMP #### [facility] [address] [place], [place] [address] Dr. Deborah Mohan IGG SUBCLASSES (1-4) AND TOT Kade 03-09-2022 IgG, Subclass 1 448 mg/dL Normal 248-810 [facility] Comment on above: Performed By: #### B ARCHITECTURAL SALES CONSULTANT, HSTROPN, CMP #### [facility] [address] [id number] Deborah Mohan IgG, Subclass 2 253 mg/dL Normal 130-555 [facility] Comment on above: Performed By: #### B ARCHITECTURAL SALES CONSULTANT, HSTROPN, CMP #### [facility] [address] [address] [address] Deborah Mohan IgG, Subclass 3 95 mg/dL Normal 15-102 [facility] Comment on above: Performed By: #### B ARCHITECTURAL SALES CONSULTANT, HSTROPN, CMP #### [facility] [address] [id number] Deborah Mohan IgG, Subclass 4 10 mg/dL Normal 2-96 [facility] Comment on above: Performed By: #### B ARCHITECTURAL SALES CONSULTANT, HSTROPN, CMP #### [facility] [address] [place], [place] [address] Dr. Deborah Mohan Immunoglobulin G, Qn, Serum 658 mg/dL Normal 586-1602 [facility] Comment on above: Performed By: #### B ARCHITECTURAL SALES CONSULTANT, HSTROPN, CMP #### [facility] [address] [id number] [address] Deborah Mohan IMMUNOGLOBULIN E, TOTALon Immunoglobulin E, Total 5 IU/mL Critically low 6-495 [facility] Comment on above: Performed By: #### I GETOT ####[facility] [address] [place], [place] [address]GxDr. Deborah Mohan MICHELL EIA W/REFLEX 5 BIOMARKER Son 03-08-2022 MICHELL Direct Negative Normal Negative [facility] Comment on above: Performed By: #### A NARF #### [facility] [address] [address] [address] Deborah Mohan ANGIOTENSION-CONVERTING ENZY ME (FRANCESCO)on 03-08-2022 FRANCESCO 32 U/L Normal 14-82 [facility] Comment on above: Performed By: #### A NGIOC ####[facility] [address] [address]DrAnkur Mohan ANTIGLOMERULAR BASEMENT MEMB ROMMEL ABSon 03-08-2022 Anti-GBM Antibodies <0.2 Normal 0.0-0.9 [facility] Comment on above: Performed By: #### A GBM #### [facility] [address] [address] [address] Deborah Mohan IMMUNOGLOBULIN IGA QUANTITIA VEon 03-06-2022 Immunoglobulin A, Qn, Serum 229 mg/dL Normal 87-352 [facility] Comment on above: Performed By: #### A NARF #### [facility] [address] [address] [address] Deborah Mohan IMMUNOGLOBULIN IGM QUANTITAT IVEon 03-06-2022 Immunoglobulin M, Qn, Serum 83 mg/dL Normal 26-217 [facility] Comment on above: Performed By: #### B ARCHITECTURAL SALES CONSULTANT, HSTROPN, CMP #### [facility] [address] [address] [address] Deborah Mohan RHEUMATOID FACTORon 03-06-20 22 RA Latex Turbid. 10.9 IU/mL Normal <14.0 [facility] Comment on above: Performed By: #### R F ####[facility] [address] [address]Dr. Deborah Mohan CREATININEon 03-05-2022 Creatinine [Mass/Vol] 1.38 mg/dL Critically high 0.55-1.02 [facility] Comment on above: Performed By: #### C MELVINA ####[facility] [address] [place] [id number] Mohan EGFR-AF CITIZEN [place] 46 mL/min/1.73m2 Critically low >=60 [facility] Comment on above: Performed By: #### C MELVINA ####[facility] [address] [place], [place] [address]ZpAnkur Mohan EGFR-NON AF CITIZEN [place] 38 mL/min/1.73m2 Critically low >=60 [facility] Comment on above: Performed By: #### C MELVINA ####[facility] [address] [place], [place] [address]VqDr. Deborah Mohan SED RATE WESTERGRENon 2021 SED RATE 92 mm/hr Critically high <=30 [facility] Comment on above: Performed By: #### B ARCHITECTURAL SALES CONSULTANT, HSTROPN, CMP #### [facility] [address] [place], [place] [address] Dr. Deborah Mohan XR DEXA BONE DENSITYon [...] by: ROBERT CONDON Date: 2022-03-05 16:56 Normal [facility] XR CHEST 1 Von 03-01-2022 [...] by: ROBERT NOVAK Date: 2022-02-28 22:27 Normal [facility] XR KNEE LUANA 4V or [...] RAUDEL ESTRADA Date: 2022-01-29 11:09 Normal [facility] CBC AUTO DIFFon 11-29-2021 BASO # 0.1 103/ul Normal 0.0-0.1 [facility] Comment on above: Performed By: #### C BC ####[facility] [address] [place] [address]Dr. Deborah Mohan Basophils/100 WBC (Bld) 0.8 % Normal 0.2-2.0 [facility] Comment on above: Performed By: #### C BC ####[facility] [address] [address]Dr. Deborah Mohan EO # 0.3 103/ul Normal 0.0-0.7 [facility] Comment on above: Performed By: #### C BC ####[facility] [address] [address]Dr. Deborah Mohan Eosinophils/100 WBC (Bld) 2.2 % Normal 0.9-7.0 [facility] Comment on above: Performed By: #### C BC ####[facility] [address] [place], [place] [address]Dr. Deborah Mohan Erythrocyte distribution width (RBC) [Ratio] 21.2 % Critically high 11.0-15.0 [facility] Comment on above: Performed By: #### C BC ####[facility] [address] [place], [place] [address]Dr. Deborah Mohan Hematocrit (Bld) [Volume fraction] 33.2 % Critically low 36.0-48.0 [facility] Comment on above: Performed By: #### C BC ####[facility] [address] [place] [id number]. Deborah Mohan Hemoglobin (Bld) [Mass/Vol] 10.3 g/dL Critically low 12.0-16.0 [facility] Comment on above: Performed By: #### C BC ####[facility] [address] [place] [id number]. Deborah Mohan IG # 0.11 10e3/ul Critically high 0.00-0.03 [facility] Comment on above: Performed By: #### C BC ####[facility] [address] [place] [id number]. Deborah Mohan IG % 0.9 % Critically high 0.0-0.5 [facility] Comment on above: Performed By: #### C BC ####[facility] [address] [place] [address]Dr. Deborah Mohan LYMPH # 2.2 103/ul Normal 1.2-3.8 [facility] Comment on above: Performed By: #### C BC ####[facility] [address] [place] [id number]. Deborah Mohan Lymphocytes/100 WBC (Bld) 18.5 % Critically low 20.5-60.0 [facility] Comment on above: Performed By: #### C BC ####[facility] [address] [place] [address]Dr. Deborah Mohan MANUAL DIFF REQ NO Normal [facility] Comment on above: Performed By: #### C BC ####[facility] [address] [place] [id number]. Deborah Mohan MCH (RBC) [Entitic mass] 26.3 pg Critically low 26.7-34.0 [facility] Comment on above: Performed By: #### C BC ####[facility] [address] [place] [id number]. Deborah Mohan MCHC (RBC) [Mass/Vol] 31.0 g/dL Normal 29.9-35.2 [facility] Comment on above: Performed By: #### C BC ####[facility] [address] [place] [id number]. Deborah Mohan MCV (RBC) [Entitic vol] 84.9 fL Normal 81.0-99.0 [facility] Comment on above: Performed By: #### C BC ####[facility] [address] [place] [id number]. Deborah Mohan MONO # 0.6 103/ul Normal 0.3-0.8 [facility] Comment on above: Performed By: #### C BC ####[facility] [address] [place] [id number]. Deborah Mohan Monocytes/100 WBC (Bld) 5.3 % Normal 1.7-12.0 [facility] Comment on above: Performed By: #### C BC ####[facility] [address] [place], [place] [id number]. Deborah Mohan NEUT # 8.4 103/ul Critically high 1.4-6.5 [facility] Comment on above: Performed By: #### C BC ####[facility] [address] [place], [place] [address]Dr. Deborah Mohan Neutrophils/100 WBC (Bld) 72.3 % Normal 43.0-75.0 [facility] Comment on above: Performed By: #### C BC ####[facility] [address] [place], [place] [address]Dr. Deborah Mohan Platelet mean volume (Bld) [Entitic vol] 10.1 fL Normal 9.5-13.5 [facility] Comment on above: Performed By: #### C BC ####[facility] [address] [place] [id number]. Deborah Mohan PLT 351 103/ul Normal 150-450 [facility] Comment on above: Performed By: #### C BC ####[facility] [address] [place] [id number]. Deborah Mohan RBC 3.91 106/ul Critically low 4.20-5.40 [facility] Comment on above: Performed By: #### C BC ####[facility] [address] [place], [place] [address]WjAnkur Mohan WBC 11.6 103/ul Critically high 4.0-11.0 [facility] Comment on above: Performed By: #### C BC ####[facility] [address] [place], [place] [address]Jm. Deborah Mohan CTA CHEST WO W CONon [...] 2. Bilateral peripheral fibrosis and/or scarring with ewbf-sj-rppoahhu groundglass densities. The groundglass densities are slightly decreased compared to the prior scan. 3. Old calcified granulomas in the chest and abdomen. 4. Large hiatal hernia. 5. Moderate diffuse osteopenia. Electronically authenticated by: BERNARDO DENNY Date: 2021-11-29 20:31 Normal [facility] D-DIMERon 11-29-2021 D-DIMER 1.14 mg/L FEU Critically high <=0.59 [facility] Comment on above: Performed By: #### A NARF #### [facility] [address] [place] [address] Dr. Deborah Mohan D-DIMER COMMENTS SEE BELOW Normal [facility] Comment on above: Result Comment: Incr [...] hospitalization. Performed By: #### A NARF #### [facility] [address] [place] [address] Dr. Deborah Mohan PROF CHEM 8 (BAS METB)on Anion gap [Moles/Vol] 11.7 mmol/L Normal [facility] Comment on above: Performed By: #### B KYLEE HSTROPN #### [facility] [address] [place] [address] Dr. Deborah Mohan Calcium [Mass/Vol] 8.7 mg/dL Normal 8.5-10.1 [facility] Comment on above: Performed By: #### B KYLEE HSTROPN #### [facility] [address] [place] [address] Dr. Deborah Mohan Chloride [Moles/Vol] 107 mmol/L Normal 98-107 [facility] Comment on above: Performed By: #### B KYLEE HSTROPN #### [facility] [address] [place] [address] Dr. Deborah Mohan CO2 [Moles/Vol] 25.3 mmol/L Normal 21.0-32.0 [facility] Comment on above: Performed By: #### B KYLEE, HSTROPN #### [facility] [address] [address] [address] Deborah Mohan Creatinine [Mass/Vol] 0.98 mg/dL Normal 0.55-1.02 [facility] Comment on above: Performed By: #### B KYLEE, HSTROPN #### [facility] [address] [address] [address] Deborah Mohan EGFR-AF CITIZ[place] >60 Normal >=60 [facility] Comment on above: Performed By: #### B KYLEE, HSTROPN #### [facility] [address] [place] [address] Dr. Deborah Mohan EGFR-NON AF CITIZEN [place] 56 mL/min/1.73m2 Critically low >=60 [facility] Comment on above: Performed By: #### B KYLEE, HSTROPN #### [facility] [address] [place] [address] Dr. Deborah Mohan Glucose [Mass/Vol] 105 mg/dL Normal 74-106 [facility] Comment on above: Performed By: #### B KYLEE, HSTROPN #### [facility] [address] [place] [address] Dr. Deborah Mohan Potassium [Moles/Vol] 4.0 mmol/L Normal 3.5-5.1 [facility] Comment on above: Performed By: #### B KYLEE, HSTROPN #### [facility] [address] [place] [address] Dr. Deborah Mohan Sodium [Moles/Vol] 140 mmol/L Normal 136-145 [facility] Comment on above: Performed By: #### B KYLEE, HSTROPN #### [facility] [address] [place] [address] Dr. Deborah Mohan Urea nitrogen [Mass/Vol] 21.0 mg/dL Critically high 7.0-18.0 [facility] Comment on above: Performed By: #### B KYLEE, HSTROPN #### [facility] [address] [place], [place] [address] Dr. Deborah Mohan Urea nitrogen/Creatinine [Mass ratio] 21.4 mg/mg Normal [facility] Comment on above: Performed By: #### B KYLEE, HSTROPN #### [facility] [address] [address] [address] Deborah Mohan TROPONIN, HIGH SENSITIVITYon 11-29-2021 HSTROP 4.5 pg/mL Normal 4.0-51.3 [facility] Comment on above: Result Comment: CUT- OFF POINTS HAVE BEEN ESTABLISHED BASED ON THE FOURTH UNIVERSAL DEFINITIONS OF MYOCARDIAL INFARCTION. THE UPPER REFERENCE LIMIT (URL) OF TROPONIN, DEFINED THE 99TH PERCENTILE OF cTnI DISTRIBUTION IN A REFERENCE POPULATION, HAS BEEN CONFIRMED THE DECISION THRESHOLD FOR NE DIAGNOSIS. Performed By: #### H STROPN ####[facility] [address] [place], [place] [address]NmDr. Deborah Mohan HSTROP 6.0 pg/mL Normal 4.0-51.3 [facility] Comment on above: Result Comment: CUT- OFF POINTS HAVE BEEN ESTABLISHED BASED ON THE FOURTH UNIVERSAL DEFINITIONS OF MYOCARDIAL INFARCTION. THE UPPER REFERENCE LIMIT (URL) OF TROPONIN, DEFINED THE 99TH PERCENTILE OF cTnI DISTRIBUTION IN A REFERENCE POPULATION, HAS BEEN CONFIRMED THE DECISION THRESHOLD FOR NE DIAGNOSIS. Performed By: #### B KYLEE, HSTROPN #### [facility] [address] [address] [address] Deborah Mohan XR CHEST 1 Von [...] KANDY BARRY Date: 2021-11-29 19:20 Normal [facility] XR LSPINE W_OBLS AND FLEX_EX Ton [...] by: RAUDEL ESTRADA Date: 2021-11-12 07:56 Normal [facility] CALCIUMon 11-11-2021 Calcium [Mass/Vol] 9.0 mg/dL Normal 8.5-10.1 [facility] Comment on above: Performed By: #### A NARF #### [facility] [address] [address] [address] Deborah Mohan CREATININEon 11-11-2021 Creatinine [Mass/Vol] 1.47 mg/dL Critically high 0.55-1.02 [facility] Comment on above: Performed By: #### A NARF #### [facility] [address] [address] [address] Deborah Mohan EGFR-AF CITIZ[place] 43 mL/min/1.73m2 Critically low >=60 [facility] Comment on above: Performed By: #### A NARF #### [facility] [address] [address] [address] Deborah Mohan EGFR-NON AF CITIZEN OF [place] 35 mL/min/1.73m2 Critically low >=60 [facility] Comment on above: Performed By: #### A NARF #### [facility] [address] [place] [address] Dr. Deborah Mohan Vital Signs Date Time Vital Sign Value Performing Clinician Faci lity 03-20-2024 14:57-0400 Blood Pressure Location [facility] [facility] [place] 03-20-2024 14:57-0400 Diastolic blood pressure 82 mm[Hg] Anderson NILL [facility] [place] 03-20-2024 14:57-0400 Heart rate 70 /min Anderson NILL [facility] [place] 03-20-2024 14:57-0400 Respiratory rate 16 /min Anderson NILL [facility] [place] 03-20-2024 14:57-0400 Systolic blood pressure 126 mm[Hg] Anderson NILL [facility] [place] Encounters Encounter Date Encounter Type Care Provider Facility Start: 04-25-2024 End: 04-25-2024 ambulatory Anderson Wiley RICHL Facility:CD:[id number] Start: 03-20-2024 End: 03-20-2024 ambulatory Luisito Townsend Facility: [place] Start: 03-20-2024 End: 03-20-2024 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 procedure Anderson VILLANUEVAL [facility] [place] Start: 02-10-2024 ambulatory Luisito Hoy Facility:[facility] Start: 11-28-2023 End: 11-28-2023 ambulatory [facility] Start: 10-18-2023 End: 10-18-2023 ambulatory [facility] Start: 08-01-2023 End: 08-02-2023 ambulatory Gabriella [...] Start: 05-08-2022 End: 05-08-2022 ambulatory Clarita Nena Facility:[facility] Start: 05-08-2022 End: 05-08-2022 ambulatory STRAW BALER-C Clarita Nena Work Phone: [facility] Work Phone: Start: 05-08-2022 End: 05-08-2022 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 procedure STRAW BALER-C Clarita Nena Work Phone: [facility] Start: 04-08-2022 [...] 04-01-2018 Emergency department patient visit BRANDON RUSSELL [facility] Start: 12-11-2017 End: 12-11-2017 Emergency department patient visit ROBERT HURLEY Facility:[facility] Procedures Date Procedure Procedure Detail Performing Clinician Start: 05-08-2022 Plain X-ray of left wrist STRAW BALER-C Clarita Blakeault Work Phone: Start: 05-08-2022 X-ray of left ankle STRAW BALER -C Clarita Nena Work Phone: Start: 04-01-2018 [...] Date Payer Category Payer Unknown 2022 Medicare [id number] 2022 Self-pay 1961 Unknown [id number] 1955 Unknown [id number] 2.16.84 0.1.164320.3.579.2.593 1955 Unknown [id number] 2.16.84 0.1.494310.3.579.2.593 1955 Unknown [id number] 2.16.84 0.1.486504.3.579.2.593 1953 Unknown [id number] 2.16.84 0.1.829704.3.579.2.593 1953 Unknown [id number] 2.16.84 0.1.572365.3.579.2.593 1953 Unknown [id number] 2.16.84 0.1.221851.3.579.2.593 1953 Unknown [id number] 2.16.84 0.1.360292.3.579.2.593 1953 Unknown [id number] 2.16.84 0.1.828191.3.579.2.593 1953 Unknown [id number] 2.16.84 0.1.080803.3.579.2.593 1953 Unknown [id number] 2.16.84 0.1.895154.3.579.2.593 1953 Unknown [id number] 2.16.84 0.1.984764.3.579.2.593 1953 Unknown [id number] 2.16.84 0.1.236043.3.579.2.593 1953 Unknown [id number] 2.16.84 0.1.895882.3.579.2.593 1953 Unknown [id number] 2.16.84 0.1.260349.3.579.2.593 1953 Unknown [id number] 2.16.84 0.1.894553.3.579.2.593 1953 Unknown [id number] 2.16.84 0.1.990941.3.579.2.593 1953 Unknown [id number] 2.16.84 0.1.437119.3.579.2.593 1953 Unknown [id number] 2.16.84 0.1.145842.3.579.2.593 1953 Unknown [id number] 2.16.84 0.1.344905.3.579.2.593 1953 Unknown [id number] 2.16.84 0.1.042697.3.579.2.593 1953 Unknown [id number] 2.16.84 0.1.575554.3.579.2.593 1953 Unknown [id number] 2.16.84 0.1.344945.3.579.2.593 1953 Unknown [id number] 2.16. 840.1.316298.3.579.2.196 1955 Unknown [id number] 2.16.8 40.1.924818.3.579.2.727 1955 Unknown [id number] 2.16.8 40.1.102204.3.579.2.727 Medicare [id number] Unknown [facility] [id number] Unknown [employer]/BS [id number] Unknown [id number] 2.16.8 40.1.960654.3.579.2.531 Social History Date Type Detail Facility [facility] Work Phone: Start: 1955 Sex Assigned At Female [facility] Start: 03-20-2024 Tobacco smoking status Ex-smoker (fi nding) [facility] Tobacco smoking status Never [facility] Sex Assigned At Female [facility] Functional Status Date Assessment Result Facility 03-20-2024 Functional Status N/A [facility] Clinical Notes 11-05-2021 to 03-20-2024 Note Date [...] 1 tab(s), Or (more content not included)... [facility] Comment on above: Result Comment: Elec tronically Signed By: SHASHA GRANT, Anderson Serrano.nigel\Date and Time Signed: 03/20/24 16:53 EDT 11-28-2023 Note [facility] Cardiology Clinic Note Chief Complaint: Patient here [...] mouth in the morning., Disp: , Rfl: dttjyqhchw-ikorbvfrgpimv-lezl 50-325-40 mg tablet, Take 1 tablet by [...] rhythm Echocar (more content not included)... [facility] 10-18-2023 Note [facility] Cardiology Clinic Note Chief Complaint: New patient here to establish care. Ref from Dr. Townsend for abnormal EKG. She also wore 7 day Holter monitor, and says she did not work while wearing this. She works at [employer] and says it's very fast paced. States she drinks a 5 Hour Energy shot almost every day. She was admitted to [facility] for migraine recently and was found to have abnormal EKG. Recently has noticed a twinge of chest pain. C/o DAI, palpitations, and lightheadedness. HPI: Mary Vick is a 68 y.o. female With a history of hypertension and hypothyroidism who presents due to an abnormal Holter monitor She was admitted to the [facility] for migraine; a monitor revealed both [...] Routine labs (more content not included)... [facility] 07-08-2022 Note CONSULTATION PROCEDURE DATE: 07/08/2022 HISTORY [...] in the clinic in three months. [facility] 06-24-2022 Note CONSULTATION CONSULTATION DATE: 06/24/2022 [...] at a time, as she works at [employer]. Current medications include Percocet 5/325 daily, diclofenac [...] pending approval for her knee injections. [facility] 04-08-2022 Note CONSULTATION CONSULTATION DATE: 04/08/2022 [...] three months' time unless otherwise indicated. [facility] 03-09-2022 Note CONSULTATION CONSULTATION DATE: [...] to proceed. CC: Natividad Silva CNP [facility] 01-28-2022 Note CONSULTATION CONSULTATION DATE: 01/30/2022 [...] and re-evaluation of her bursa injection. [facility] 01-28-2022 Note CONSULTATION PROCEDURE DATE: 01/30/2022 [...] be followed up in the clinic. [facility] 11-12-2021 Note PROCEDURE: XR HIPS B [...] by: RAUDEL ESTRADA Date: 2021-11-12 07:50 [facility] 11-05-2021 Note CONSULTATION PROCEDURE DATE:11/05/2021 PREOPERATIVE [...] will be followed up in the office. [facility] Signed and Approved by: JOEL RAMON . 11/18/2021 16:24:00 [facility] 11-05-2021 Note CONSULTATION CONSULTATION DATE: 11/05/2021 [...] time, was working half a day at [employer] and since then has increased to full [...] in three months' time unless otherwise indicated. [facility] Signed and Approved by: JOEL RAMON . 11/18/2021 16:24:00 [facility] Evaluation + Plan note No data available for this section [facility] Evaluation note No assessment inform ation available [facility] Work Phone: Hospital Discharge instructions No data available for this section [facility] Progress note No data available for this section [facility] Summary Purpose Family History No Family [...] section and content) DATE CREATED AUTHOR 12/21/2017 [facility] DATE CREATED AUTHOR AUTHOR'S ORGANIZ ATION 05/01/2018 [facility] DATE CREATED AUTHOR AUTHOR'S ORGANIZ ATION 05/17/2022 [facility] DATE CREATED AUTHOR AUTHOR'S ORGANIZ ATION 10/06/2022 [facility] DATE CREATED AUTHOR AUTHOR'S ORGANIZ ATION 08/03/2023 [facility] DATE CREATED AUTHOR AUTHOR'S ORGANIZ ATION 11/28/2023 [facility] DATE CREATED AUTHOR AUTHOR'S ORGANIZ ATION 05/03/2024 [facility] Care Teams (unrecognized sec tion and content) [...] BE BASED ON THE PRIMARY CLINICAL RECORDS. [facility] [employer] [facility]. provides no warranty or guarantee of the accuracy or completeness of information in this document.
--- NOTE | 2024-07-04 11:47 | P.CN_ITS ---
Consult Note: HPI Data of Consult Patient: known to practice within the last 3 years Requesting Physician: Shweta Crowley NP Primary Care Provider: POLO SILVA Consult Narrative Reason for consult: f/u Narrative: Mary Vick a pleasant 68 year old female presents for evaluation and management of chronic back, bilateral knee and GTB pain. today pain 4/10 increasing to 7/10 with standing, walking, stairs, bending, activity. Pain improved with sitting in recliner, heat and rest. Utilizes tylenol, percocet, diclofenac with relief without side effects. 1 fall with injury in the last few months, pt fractured her left arm and is following with orthopedics post ORIF of left forearm. previous bilateral knee injections providing moderate ongoing relief cc:: CC: Shweta Crowley NP Review of Systems ROS Status of ROS 10 or more systems reviewed and unremark able except as noted in history and below Musculoskeletal Reports: back pain, extremity pain and joint pain PFSH PFS Medical History (Updated 06/17/24 @ 13:52 by Catherine Pereira MD) Syncopal episodes ?R55 - Syncope and collapse (ICD-10) Pneumonia ?J18.9 - Pneumonia, unspecified organism (ICD-10) Restless leg ?G25.81 - Restless legs syndrome (ICD-10) Dyspnea on exertion ?R06.09 - Other forms of dyspnea (ICD-10) Bilateral pulmonary contusion ?S27.322A - Contusion of lung, bilateral, initial encounter (ICD-10) Closed rib fracture ?S22.39XA - Fracture of one rib, unspecified side, initial encounter for closed fracture (ICD-10) Fall ?W19.XXXA - Unspecified fall, initial encounter (ICD-10) Chin contusion ?S00.83XA - Contusion of other part of head, initial encounter (ICD-10) Laceration of lip ?S01.511A - Laceration without foreign body of lip, initial encounter (ICD- 10) Fracture of wrist ?S62.109A - Fracture of unspecified carpal bone, unspecified wrist, initial encounter for closed fracture (ICD-10) Macular degeneration ?H35.30 - Unspecified macular degeneration (ICD-10) Seasonal allergies ?J30.2 - Other seasonal allergic rhinitis (ICD-10) Anemia ?D64.9 - Anemia, unspecified (ICD-10) Lumbar radiculopathy ?M54.16 - Radiculopathy, lumbar region (ICD-10) Muscle spasm ?M62.838 - Other muscle spasm (ICD-10) Lumbar spondylosis ?M47.816 - Spondylosis without myelopathy or radiculopathy, lumbar region (ICD-10) Thoracic spondylosis ?M47.814 - Spondylosis without myelopathy or radiculopathy, thoracic region (ICD-10) Bilateral sacroiliitis ?M46.1 - Sacroiliitis, not elsewhere classified (ICD-10) Chronic, continuous use of opioids ?F11.90 - Opioid use, unspecified, uncomplicated (ICD-10) Greater trochanteric bursitis of both hips ?M70.61 - Trochanteric bursitis, right hip (ICD-10) ?M70.62 - Trochanteric bursitis, left hip (ICD-10) Encounter for long-term opiate analgesic use ?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 analgesic (ICD-10) Bilateral primary osteoarthritis of knee ?M17.0 - Bilateral primary osteoarthritis of knee (ICD-10) Acute opioid intoxication ?F11.929 - Opioid use, unspecified with intoxication, unspecified (ICD-10) Tubal ligation evaluation ?Z01.818 - Encounter for other preprocedural examination (ICD-10) Colonoscopy planned Headache, migraine ?G43.909 - Migraine, unspecified, not intractable, without status migrainosus (ICD-10) SVT (supraventricular tachycardia) ?I47.10 - Supraventricular tachycardia, unspecified (ICD-10) Screening for colorectal cancer ?Z12.11 - Encounter for screening for malignant neoplasm of colon (ICD-10) ?Z12.12 - Encounter for screening for malignant neoplasm of rectum (ICD-10) COPD (chronic obstructive pulmonary disease) ?J44.9 - Chronic obstructive pulmonary disease, unspecified (ICD-10) Migraine ?G43.909 - Migraine, unspecified, not intractable, without status migrainosus (ICD-10) Loud snoring ?R06.83 - Snoring (ICD-10) Osteoarthritis ?M19.90 - Unspecified osteoarthritis, unspecified site (ICD-10) Neck pain ?M54.2 - Cervicalgia (ICD-10) Bipolar 1 disorder ?F31.9 - Bipolar disorder, unspecified (ICD-10) Hearing deficit ?H91.90 - Unspecified hearing loss, unspecified ear (ICD-10) Anxiety ?F41.9 - Anxiety disorder, unspecified (ICD-10) Acid reflux ?K21.9 - Gastro-esophageal reflux disease without esophagitis (ICD-10) Obesity ?E66.9 - Obesity, unspecified (ICD-10) Hypothyroid ?E03.9 - Hypothyroidism, unspecified (ICD-10) Pulmonary hypertension ?I27.20 - Pulmonary hypertension, unspecified (ICD-10) Sleep apnea ?G47.30 - Sleep apnea, unspecified (ICD-10) High cholesterol ?E78.00 - Pure hypercholesterolemia, unspecified (ICD-10) Hypertension ?I10 - Essential (primary) hypertension (ICD-10) Surgical History History of colonoscopy ?Z98.890 - Other specified postprocedural states (ICD-10) H/O bilateral salpingo-oophorectomy ?Z90.79 - Acquired absence of other genital organ(s) (ICD-10) ?Z90.722 - Acquired absence of ovaries, bilateral (ICD-10) H/O dilation and curettage ?Z98.890 - Other specified postprocedural states (ICD-10) Cataract extraction status ?Z98.49 - Cataract extraction status, unspecified eye (ICD-10) H/O blepharoplasty ?Z98.890 - Other specified postprocedural states (ICD-10) History of mandibular surgery ?Z98.890 - Other specified postprocedural states (ICD-10) Hx of tubal ligation ?Z98.51 - Tubal ligation status (ICD-10) History of appendectomy ?Z90.49 - Acquired absence of other specified parts of digestive tract (ICD- 10) History of hysterectomy ?Z90.710 - Acquired absence of both cervix and uterus (ICD-10) Family History Mother Family history of cancer Sister Family history of cancer Other Delayed recovery from anesthesia Family history of breast cancer Family history of lung cancer Social History Within the past year, how often did you have a drink containing alcohol: never Score interpretation: A score less than 3 is consistent with normal alcohol consumption. Smoking status: Former smoker Non-prescribed substance use: denies use Previous occupational history: [employer] Highest level of school completed/degree received: 11th grade Are you now , , , , never or living with a partner: In a typical week, how many times do you talk on the telephone with family, friends, or neighbors: 3 or more times per week How often do you get together with friends or relatives: 3 or more times per week How often do you attend worship or christianity services: 4 or more times per year Do you belong to any clubs or organizations such as worship groups unions, [employer] or athletic groups, or school groups: no Total score: 2 Score interpretation: A score of greater than or equal to 2 indicates the lowest level of social isolation. Little interest or pleasure in doing things: not at all Feeling down, depressed, or hopeless: not at all Feel stressed/tense/nervous/anxious/difficulty sleeping: not at all Do you think of yourself as: straight/heterosexual Gender Identity: female Meds Home Medications and Allergies Home Medications ?Medication ?Instructions ?Recorded ?Confirmed ?Type albuterol sulfate 90 mcg/actuation 2 inh inhalation Q6H PRN shortness 10/21/22 06/17/24 History breath activated powder inhaler of breath or wheezing aripiprazole 30 mg tablet (Abilify) 30 mg PO QDAY 10/21/22 06/17/24 History diclofenac sodium 50 mg 50 mg PO BID 10/21/22 06/17/24 History tablet,delayed release ropinirole 1 mg tablet 1 mg PO QDAY PRN restless leg(s) 10/21/22 06/17/24 History levothyroxine 50 mcg tablet 50 mcg PO QDAY #30 tabs 09/17/23 06/17/24 Rx (Euthyrox) ferrous sulfate 325 mg (65 mg 325 mg PO DAILY 04/12/24 06/17/24 History iron) tablet (Holly-Time) fluticasone fur. 100 mcg-umeclid 1 inh inhalation DAILY 04/12/24 06/17/24 History 62.5 mcg-vilant 25 mcg inhalat.powder (Trelegy Ellipta) magnesium 250 mg tablet 250 mg PO DAILY 04/12/24 06/17/24 History vitamins A,C,E-ajiv-cecxhg 4,296 1 cap PO DAILY 04/12/24 06/17/24 History mcg-226 mg-90 mg capsule (PreserVision AREDS) amitriptyline 50 mg tablet 50 mg PO .qhs 06/06/24 06/17/24 History baclofen 5 mg tablet 5 mg PO QDAY PRN IF NEEDED FOR 06/06/24 06/17/24 History SKELETAL MUSCULAR PAIN fluoxetine 20 mg capsule 80 mg PO .QD 06/06/24 06/17/24 History liothyronine 5 mcg tablet 5 mcg PO .QD 06/06/24 06/17/24 History lisinopril 40 mg tablet 40 mg PO .QD 06/06/24 06/17/24 History omeprazole 20 mg capsule,delayed 20 mg PO BID 06/06/24 06/17/24 History release oxycodone-acetaminophen 5 mg-325 1 tab PO Q6H PRN pain 7 days #28 06/07/24 06/17/24 Rx mg tablet tabs potassium 99 mg tablet mg PO DAILY 06/08/24 History vitamin B complex 1 tab PO DAILY 06/08/24 06/17/24 History oxycodone-acetaminophen 5 mg-325 1 tab PO Q4H PRN pain 7 days #40 06/11/24 Rx mg tablet (Percocet) tabs oxycodone-acetaminophen 5 mg-325 1 tab PO DAILY PRN pain #30 tabs 06/28/24 Rx mg tablet (Percocet) Allergies Allergy/AdvReac Type Severity Reaction Status Date / Time sumatriptan (From Imitrex) Allergy Severe Palpitation Verified 06/17/24 10:33 s Exam Constitutional Documenting provider has reviewed patient's vital signs: yes Common normals: no apparent distress, oriented x3, healthy appearing, alert and well nourished General appearance: cooperative HENMT Common normals: normocephalic, hearing grossly normal bilaterally and moist oral mucous membranes Head and scalp: normocephalic Eye Common normals: PERRL Pupil: PERRL Neck & C-Spine Common normals: full ROM General: normal visual inspection Chest Common normals: inspection of chest normal Respiratory Common normals: normal respiratory effort, no retractions and no use of accessory muscles Back & Pelvis Thoracic spine/upper back: ROM limited and pain with ROM Lumbar spine/lower back: ROM limited, pain with ROM and straight leg raise negative bilaterally Other: predominately axial low back pain, pain and tenderness across T12-L2 facets no radiculopathy facet loading positive bilaterally Extremity Common normals: normal to inspection and full ROM Right lower extremity: knee joint Left lower extremity: knee joint Other: mild to moderate pain over bilateral GTB mild pain with left internal log roll mild edema to bilateral knees, increased pain with medial and lateral stress testing, no instability noted Neuro Common normals: oriented x3, CN's II-XII intact bilaterally, moves all extremities, no focal motor deficits, no sensory deficits noted and deep tendon reflexes 2+ bilaterally Sensorium/orientation: alert Gait (neuro): antalgic Motor exam: strength 5/5 throughout and no movement abnormalities noted Psych Common normals: mental status grossly normal, thought process normal, cooperative, affect normal, speech normal and activity/motor behavior normal Speech: normal speech Thought process: normal thought process Results Additional Findings Additional findings: If on a controlled substance or opioids, I have checked an OARRS report on this patient and there are no aberrancies noted in the prescribing history.??If on a controlled substance or opioid a drug screen was completed and reviewed within the last year, and if there has not been a drug screen completed we ordered one today to monitor higher risk, state monitored pain medication use. As part of providing excellent, safe, comprehensive care, the following was completed at our patient's visit: 1. A medication reconciliation and review to ensure accurate knowledge of current/active medications, including asking our patients to inform us about any myyi-jru-dtqroig medications or herbal remedies/nutritional supplements/alternative remedies. 2. A review to specifically ensure our patients have had annual screening for screening for depression, screening for tobacco use, and screening for unhealthy alcohol use. For concerning screenings had a discussion with the patient, provided patient education, and recommended follow-up with primary care provider when appropriate. If patient noted with a risk of falling, they received education on strength, gait, and balance training to prevent future risk of falling. Portions of this note may have been carried over from the previous visit and updated as appropriate. Please note this office utilizes paper charting in addition to the electronic medical record. A list of current medications, vitals, and PMH is available there as the clinical staff outside of myself do not have access to [employer] charting during the clinic day operations. As part of providing quality comprehensive care the current medications, vitals, and PMH were reviewed in the paper chart. Assessment and Plan Assessment and Plan (1) Encounter for long-term opiate analgesic use: Assessment and Plan: I feel these medications are improving the patient's quality of life and allow them to tolerate activities of daily living as well as participate in recreational activity.? The patient does not report intolerable side effects. The patient is NOT opioid naive and non-pharmacologic and non-opioid treatment has failed to significantly relieve the patient's pain and improve functiona lity. The patient has a diagnosis that is related to a somatic or visceral pain etiology. ? ?? I reviewed with the patient the potential risks and side effects with the use of? opioid medications including but not limited to respiratory depression,? sedation, and even . Within the last 12 months I have verified the patient has access to naloxone should? these effects occur. The patient was advised to let? their family know they had Naloxone in case they would need to administer? the medication. I advised the patient to avoid the use of any other? sedation substances including alcohol, THC, and benzodiazepines while? taking opioid medications due to the risk of compounding side effects and? detrimental outcomes. within the last 12 months I have reviewed the JOB ESTIMATOR, pain treatment agreement and urine drug screen.? ?? A drug screen was completed within the last year, and no aberrancies were noted regarding their use of controlled substances. The patient understands they are subject to the terms and conditions of the pain contract that they have signed. ? ?? I have checked an OARRS report on this patient today and there are no aberrancies noted in the prescribing history.? (2) Greater trochanteric bursitis of both hips: (3) Thoracic spondylosis: (4) Lumbar spondylosis: (5) Bilateral primary osteoarthritis of knee: Plan continue HEP as tolerated continue current medication regimen f/u 3 months for medication management, sooner if needed
== END 2024-07-04 11:25 | disposition home or self-care (01) ==
LOC: PM 11:25
PROVIDERS: PCP Nurse Practitioner Family; Visit Provider Nurse Practitioner
DX: M47.816 Spondylosis without myelopathy or radiculopathy, lumbar region (principal); Z79.891 Long term (current) use of opiate analgesic; M70.62 Trochanteric bursitis, left hip; M47.814 Spondylosis without myelopathy or radiculopathy, thoracic region; M70.61 Trochanteric bursitis, right hip; M17.0 Bilateral primary osteoarthritis of knee
CPT/HCPCS: G0463

== ENCOUNTER 2024-07-16 09:05 | Outpatient (OUT) | payer OTHER, SELFPAY ==
--- NOTE | 2024-07-16 | XR_ITS ---
The [address] [address] Patient Name: MELANIE TOMPKINS MRN: [id number] date: 1955 Sex: F Assigned Patient Location: Current Patient Location: Accession/Order Number: [id number] Exam Date: 07/16/2024 13:24 Report Date: 07/16/2024 13:26 At the request of: RAUDEL ROYAL MD Procedure: XR wrist LT min 3V LEFT WRIST - 3 views COMPARISON: 06/25/2024 CLINICAL DATA: Follow-up wrist fractures. Wrist pain. AP, lateral and one oblique view were obtained. There is redemonstration of fractures involving the distal radius and ulna. There is no change in alignment. A volar plate at the distal radius is again noted. There are no new fractures or dislocation. Mild soft tissue swelling is present. XR/XR wrist LT min 3V IMPRESSION: STABLE FRACTURES INVOLVING THE DISTAL RADIUS AND ULNA. Impression dictated by: Alysia Avina M.D.07/16/2024 1:26 PM Dictation Location[facility]our[facility]Me Electronically authenticated by: [id number] Date: 07/16/2024 13:26
--- OUTSIDE RECORDS SUMMARY | 2024-07-16 09:28 | XMS_ITS | CCD ---
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 Performed By: #### B ABSTRACTOR, HSTROPN, CMP #### [facility] [address] [place] [address] [address] Deborah Mohan Cytoplasmic (C-ANCA) <1:20 Normal Neg:<1:20 [facility] Comment on above: Result Comment: Perf ormed at: CB Performed By: #### B PHILLIP JONES CMP #### [facility] [address] [place] [address] [address] Deborah Mohan Perinuclear (P-ANCA) <1:20 Normal Neg:<1:20 [facility] Comment on above: Result Comment: The presence of positive fluorescence exhibiting P-ANCA or C-ANCA patterns alone is not specific for the diagnosis of Marlin's Granulomatosis (WG) or microscopic polyangiitis. Decisions about treatment should not be based solely on ANCA IFA results. The International ANCA Group Consensus recommends follow up testing of positive sera with both ME-3 and MPO-ANCA enzyme immunoassays. As many as 5% serum samples are positive only by EIA. Ref. AM J Clin Pathol 1999;111:507-513. Performed at: CB Performed By: #### B PHILLIP JONES CMP #### [facility] [address] [place] [address] Dr. Deborah Mohan ANTISCLERODERMA ABon 022 Antiscleroderma-70 Antibodies <0.2 Normal 0.0-0.9 [facility] Comment on above: Performed By: #### A NARF #### [facility] [address] [place] [address] CHEST WO CONon [...] incidental findings, as described above. Normal [facility] CYCLIC CITRULLINATED PEPTIDE AB (CCP)on 03-09-2022 CCP Antibodies IgG/IgA 6 units Normal 0-19 [facility] Comment on above: Result Comment: Nega tive <20 Weak positive 20 - 39 Moderate positive 40 - 59 Strong positive >59 Performed By: #### B ABSTRACTOR, HSTROPN, CMP #### [facility] [address] [place], [place] [address] Dr. Deborah Mohan IGG SUBCLASSES (1-4) AND TOT Kade 03-09-2022 IgG, Subclass 1 448 mg/dL Normal 248-810 [facility] Comment on above: Performed By: #### B ABSTRACTOR, HSTROPN, CMP #### [facility] [address] [place] [id number] Deborah Mohan IgG, Subclass 2 253 mg/dL Normal 130-555 [facility] Comment on above: Performed By: #### B ABSTRACTOR, HSTROPN, CMP #### [facility] [address] [place] [address] [address] Deborah Mohan IgG, Subclass 3 95 mg/dL Normal 15-102 [facility] Comment on above: Performed By: #### B ABSTRACTOR, HSTROPN, CMP #### [facility] [address] [place] [id number] Deborah Mohan IgG, Subclass 4 10 mg/dL Normal 2-96 [facility] Comment on above: Performed By: #### B ABSTRACTOR, HSTROPN, CMP #### [facility] [address], [place] [address] Dr. Deborah Mohan Immunoglobulin G, Qn, Serum 658 mg/dL Normal 586-1602 [facility] Comment on above: Performed By: #### B ABSTRACTOR, HSTROPN, CMP #### [facility] [address] [place] [id number] Deborah Mohan IMMUNOGLOBULIN E, TOTALon Immunoglobulin E, Total 5 IU/mL Critically low 6-495 [facility] Comment on above: Performed By: #### I GETOT ####[facility] [address] [place], [place] [address]TaDr. Deborah Mohan MICHELL EIA W/REFLEX 5 BIOMARKER Son 03-08-2022 MICHELL Direct Negative Normal Negative [facility] Comment on above: Performed By: #### A NARF #### [facility] [address] [place] [address] [address] Deborah Mohan ANGIOTENSION-CONVERTING ENZY ME (FRANCESCO)on 03-08-2022 FRANCESCO 32 U/L Normal 14-82 [facility] Comment on above: Performed By: #### A NGIOC ####[facility] [address] [place] [address]DrAnkur Mohan ANTIGLOMERULAR BASEMENT MEMB ROMMEL ABSon 03-08-2022 Anti-GBM Antibodies <0.2 Normal 0.0-0.9 [facility] Comment on above: Performed By: #### A GBM #### [facility] [address] [place] [address] [address] Deborah Mohan IMMUNOGLOBULIN IGA QUANTITIA VEon 03-06-2022 Immunoglobulin A, Qn, Serum 229 mg/dL Normal 87-352 [facility] Comment on above: Performed By: #### A NARF #### [facility] [address] [place] [address] [address] Deborah Mohan IMMUNOGLOBULIN IGM QUANTITAT IVEon 03-06-2022 Immunoglobulin M, Qn, Serum 83 mg/dL Normal 26-217 [facility] Comment on above: Performed By: #### B ABSTRACTOR, HSTROPN, CMP #### [facility] [address] [place] [address] [address] Deborah Mohan RHEUMATOID FACTORon 03-06-20 22 RA Latex Turbid. 10.9 IU/mL Normal <14.0 [facility] Comment on above: Performed By: #### R F ####[facility] [address] [place] [address]Dr. Deborah Mohan CREATININEon 03-05-2022 Creatinine [Mass/Vol] 1.38 mg/dL Critically high 0.55-1.02 [facility] Comment on above: Performed By: #### C MELVINA ####[facility] [address] [place] [address]DrAnkur Mohan EGFR-AF LUXEMBOURGER 46 mL/min/1.73m2 Critically low >=60 [facility] Comment on above: Performed By: #### C MELVINA ####[facility] [address] [place], [place] [address]FwAnkur Mohan EGFR-NON AF LUXEMBOURGER 38 mL/min/1.73m2 Critically low >=60 [facility] Comment on above: Performed By: #### C MELVINA ####[facility] [address] [place], [place] [address]NyDr. Deborah Mohan SED RATE WESTERGRENon 2021 SED RATE 92 mm/hr Critically high <=30 [facility] Comment on above: Performed By: #### B ABSTRACTOR, HSTROPN, CMP #### [facility] [address], [place] [address] Dr. Deborah Mohan XR DEXA BONE DENSITYon [...] by: ROBERT CONDON Date: 2022-03-05 16:56 Normal [facility] XR CHEST 1 Von 03-01-2022 XR CHEST [...] by: ROBERT NOVAK Date: 2022-02-28 22:27 Normal [facility] XR KNEE LUANA 4V or >on 2021 [...] RAUDEL ESTRADA Date: 2022-01-29 11:09 Normal [facility] CBC AUTO DIFFon 11-29-2021 BASO # 0.1 103/ul Normal 0.0-0.1 [facility] Comment on above: Performed By: #### C BC ####[facility] [address] [place] [address]Dr. Deborah Mohan Basophils/100 WBC (Bld) 0.8 % Normal 0.2-2.0 [facility] Comment on above: Performed By: #### C BC ####[facility] [address] [place] [address]Dr. Deborah Mohan EO # 0.3 103/ul Normal 0.0-0.7 [facility] Comment on above: Performed By: #### C BC ####[facility] [address] [place] [address]Dr. Deborah Mohan Eosinophils/100 WBC (Bld) 2.2 % Normal 0.9-7.0 [facility] Comment on above: Performed By: #### C BC ####[facility] [address] [place], [place] [address]Dr. Deborah Mohan Erythrocyte distribution width (RBC) [Ratio] 21.2 % Critically high 11.0-15.0 [facility] Comment on above: Performed By: #### C BC ####[facility] [address] [place], [place] [address]Dr. Deborah Mohan Hematocrit (Bld) [Volume fraction] 33.2 % Critically low 36.0-48.0 [facility] Comment on above: Performed By: #### C BC ####[facility] [address] [place] [address]Dr. Deborah Mohan Hemoglobin (Bld) [Mass/Vol] 10.3 g/dL Critically low 12.0-16.0 [facility] Comment on above: Performed By: #### C BC ####[facility] [address] [place] [address]Dr. Deborah Mohan IG # 0.11 10e3/ul Critically high 0.00-0.03 [facility] Comment on above: Performed By: #### C BC ####[facility] [address] [place] [address]Dr. Deborah Mohan IG % 0.9 % Critically high 0.0-0.5 [facility] Comment on above: Performed By: #### C BC ####[facility] [address] [place] [address]Dr. Deborah Mohan LYMPH # 2.2 103/ul Normal 1.2-3.8 [facility] Comment on above: Performed By: #### C BC ####[facility] [address]ux[address] [place] [address]Dr. Deborah Mohan Lymphocytes/100 WBC (Bld) 18.5 % Critically low 20.5-60.0 [facility] Comment on above: Performed By: #### C BC ####[facility] [address]qi[address] [place] [address]Dr. Deborah Mohan MANUAL DIFF REQ NO Normal [facility] Comment on above: Performed By: #### C BC ####[facility] [address] [place] [address]Dr. Deborah Mohan MCH (RBC) [Entitic mass] 26.3 pg Critically low 26.7-34.0 [facility] Comment on above: Performed By: #### C BC ####[facility] [address] [place] [address]Dr. Deborah Mohan MCHC (RBC) [Mass/Vol] 31.0 g/dL Normal 29.9-35.2 [facility] Comment on above: Performed By: #### C BC ####[facility] [address] [place] [address]Dr. Deborah Mohan MCV (RBC) [Entitic vol] 84.9 fL Normal 81.0-99.0 [facility] Comment on above: Performed By: #### C BC ####[facility] [address] [place] [address]Dr. Deborah Mohan MONO # 0.6 103/ul Normal 0.3-0.8 [facility] Comment on above: Performed By: #### C BC ####[facility] [address]vpjt[address] [place] [address]Dr. Deborah Mohan Monocytes/100 WBC (Bld) 5.3 % Normal 1.7-12.0 [facility] Comment on above: Performed By: #### C BC ####[facility] Id[address] [place], [place] [address]Dr. Deborah Mohan NEUT # 8.4 103/ul Critically high 1.4-6.5 [facility] Comment on above: Performed By: #### C BC ####[facility] [address] [place], [place] [address]Dr. Deborah Mohan Neutrophils/100 WBC (Bld) 72.3 % Normal 43.0-75.0 [facility] Comment on above: Performed By: #### C BC ####[facility] [address] [place], [place] [address]Dr. Deborah Mohan Platelet mean volume (Bld) [Entitic vol] 10.1 fL Normal 9.5-13.5 [facility] Comment on above: Performed By: #### C BC ####[facility] [address] [place] [address]Dr. Deborah Mohan PLT 351 103/ul Normal 150-450 [facility] Comment on above: Performed By: #### C BC ####[facility] T[address]mor[address] [place] [address]Dr. Deborah Mohan RBC 3.91 106/ul Critically low 4.20-5.40 [facility] Comment on above: Performed By: #### C BC ####[facility] [address] [place], [place] [address]JyAnkur Mohan WBC 11.6 103/ul Critically high 4.0-11.0 [facility] Comment on above: Performed By: #### C BC ####[facility] [address] [place], [place] [address]Ys. Deborah Mohan CTA CHEST WO W CONon [...] 2. Bilateral peripheral fibrosis and/or scarring with gobz-im-wqedzumm groundglass densities. The groundglass densities are slightly decreased compared to the prior scan. 3. Old calcified granulomas in the chest and abdomen. 4. Large hiatal hernia. 5. Moderate diffuse osteopenia. Electronically authenticated by: BERNARDO DENNY Date: 2021-11-29 20:31 Normal [facility] D-DIMERon 11-29-2021 D-DIMER 1.14 mg/L FEU Critically high <=0.59 [facility] Comment on above: Performed By: #### A NARF #### [facility] [address] [place] [address] Dr. Deborah Mohan D-DIMER COMMENTS SEE BELOW Normal [facility] Comment on above: Result Comment: Incr [...] hospitalization. Performed By: #### A NARF #### [facility] [address] [place] [address] Dr. Deborah Mohan PROF CHEM 8 (BAS METB)on Anion gap [Moles/Vol] 11.7 mmol/L Normal [facility] Comment on above: Performed By: #### B KYLEE HSTROPN #### [facility] [address] [place] [address] Dr. Deborah Mohan Calcium [Mass/Vol] 8.7 mg/dL Normal 8.5-10.1 [facility] Comment on above: Performed By: #### B KYLEE HSTROPN #### [facility] [address] [place] [address] Dr. Deborah Mohan Chloride [Moles/Vol] 107 mmol/L Normal 98-107 [facility] Comment on above: Performed By: #### B KYLEE HSTROPN #### [facility] [address] [place] [address] Dr. Deborah Mohan CO2 [Moles/Vol] 25.3 mmol/L Normal 21.0-32.0 [facility] Comment on above: Performed By: #### B KYLEE, HSTROPN #### [facility] [address] [place] [address] [address] Deborah Mohan Creatinine [Mass/Vol] 0.98 mg/dL Normal 0.55-1.02 [facility] Comment on above: Performed By: #### B KYLEE, HSTROPN #### [facility] [address] [place] [address] [address] Deborah Mohan EGFR-AF LUXEMBOURGER >60 Normal >=60 [facility] Comment on above: Performed By: #### B KYLEE, HSTROPN #### [facility] [address] [place] [address] Dr. Deborah Mohan EGFR-NON AF LUXEMBOURGER 56 mL/min/1.73m2 Critically low >=60 [facility] Comment on above: Performed By: #### B KYLEE, HSTROPN #### [facility] [address] [place] [address] Dr. Deborah Mohan Glucose [Mass/Vol] 105 mg/dL Normal 74-106 [facility] Comment on above: Performed By: #### B KYLEE, HSTROPN #### [facility] [address] [place] [address] Dr. Deborah Mohan Potassium [Moles/Vol] 4.0 mmol/L Normal 3.5-5.1 [facility] Comment on above: Performed By: #### B KYLEE, HSTROPN #### [facility] [address] [place] [address] Dr. Deborah Mohan Sodium [Moles/Vol] 140 mmol/L Normal 136-145 [facility] Comment on above: Performed By: #### B KYLEE, HSTROPN #### [facility] [address] [place] [address] Dr. Deborah Mohan Urea nitrogen [Mass/Vol] 21.0 mg/dL Critically high 7.0-18.0 [facility] Comment on above: Performed By: #### B KYLEE, HSTROPN #### [facility] [address], [place] [address] Dr. Deborah Mohan Urea nitrogen/Creatinine [Mass ratio] 21.4 mg/mg Normal [facility] Comment on above: Performed By: #### B KYLEE, HSTROPN #### [facility] [address] [place] [address] [address] Deborah Mohan TROPONIN, HIGH SENSITIVITYon 11-29-2021 HSTROP 4.5 pg/mL Normal 4.0-51.3 [facility] Comment on above: Result Comment: CUT- OFF POINTS HAVE BEEN ESTABLISHED BASED ON THE FOURTH UNIVERSAL DEFINITIONS OF MYOCARDIAL INFARCTION. THE UPPER REFERENCE LIMIT (URL) OF TROPONIN, DEFINED THE 99TH PERCENTILE OF cTnI DISTRIBUTION IN A REFERENCE POPULATION, HAS BEEN CONFIRMED THE DECISION THRESHOLD FOR TX DIAGNOSIS. Performed By: #### H STROPN ####[facility] [address] [place], [place] [address]DfDr. Deborah Mohan HSTROP 6.0 pg/mL Normal 4.0-51.3 [facility] Comment on above: Result Comment: CUT- OFF POINTS HAVE BEEN ESTABLISHED BASED ON THE FOURTH UNIVERSAL DEFINITIONS OF MYOCARDIAL INFARCTION. THE UPPER REFERENCE LIMIT (URL) OF TROPONIN, DEFINED THE 99TH PERCENTILE OF cTnI DISTRIBUTION IN A REFERENCE POPULATION, HAS BEEN CONFIRMED THE DECISION THRESHOLD FOR TX DIAGNOSIS. Performed By: #### B KYLEE, HSTROPN #### [facility] [address] [place] [address] [address] Deborah Mohan XR CHEST 1 Von [...] KANDY BARRY Date: 2021-11-29 19:20 Normal [facility] XR LSPINE W_OBLS AND FLEX_EX Ton 11-12-2021 [...] by: RAUDEL ESTRADA Date: 2021-11-12 07:56 Normal [facility] CALCIUMon 11-11-2021 Calcium [Mass/Vol] 9.0 mg/dL Normal 8.5-10.1 [facility] Comment on above: Performed By: #### A NARF #### [facility] [address] [place] [address] [address] Deborah Mohan CREATININEon 11-11-2021 Creatinine [Mass/Vol] 1.47 mg/dL Critically high 0.55-1.02 [facility] Comment on above: Performed By: #### A NARF #### [facility] [address] [address] [address] Deborah Mohan EGFR-AF LUXEMBOURGER 43 mL/min/1.73m2 Critically low >=60 [facility] Comment on above: Performed By: #### A NARF #### [facility] [address] [place] [address] [address] Deborah Mohan EGFR-NON AF LUXEMBOURGER 35 mL/min/1.73m2 Critically low >=60 [facility] Comment on above: Performed By: #### A NARF #### [facility] [address] [place] [address] Dr. Deborah Mohan Vital Signs Date Time Vital Sign Value Performing Clinician Faci lity 03-20-2024 14:57-0400 Blood Pressure Location Anderson SHASHA [facility] [place] 03-20-2024 14:57-0400 Diastolic blood pressure 82 mm[Hg] Anderson NILL [facility] [place] 03-20-2024 14:57-0400 Heart rate 70 /min Anderson NILL [facility] [place] 03-20-2024 14:57-0400 Respiratory rate 16 /min Anderson NILL [facility] [place] 03-20-2024 14:57-0400 Systolic blood pressure 126 mm[Hg] Anderson NILL [facility] [place] Encounters Encounter Date Encounter Type Care Provider Facility Start: 04-25-2024 End: 04-25-2024 ambulatory Anderson Wiley RICHL Facility:CD:[id number] Start: 03-20-2024 End: 03-20-2024 ambulatory Luisito Townsend Facility: [place] Start: 03-20-2024 End: 03-20-2024 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 procedure Anderson VILLANUEVAL [facility] [place] Start: 02-10-2024 ambulatory Luisito Hoy Facility:[facility] Start: 11-28-2023 End: 11-28-2023 ambulatory [facility] [place] [facility] Start: 10-18-2023 End: 10-18-2023 ambulatory [facility] [place] [facility] Start: 08-01-2023 End: 08-02-2023 ambulatory [...] Start: 05-08-2022 End: 05-08-2022 ambulatory Clarita Nena Facility:[facility] Start: 05-08-2022 End: 05-08-2022 ambulatory [facility] Clarita Nena Work Phone: [facility] Work Phone: Start: 05-08-2022 End: 05-08-2022 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 procedure [facility]C Clarita Nena Work Phone: [facility] Start: [...] 04-01-2018 Emergency department patient visit BRANDON RUSSELL [facility] Start: 12-11-2017 End: 12-11-2017 Emergency department patient visit ROBERT HURLEY Facility:[facility] Procedures Date Procedure Procedure Detail Performing Clinician Start: 05-08-2022 Plain X-ray of left wrist [facility] Clarita Blakeault Work Phone: Start: 05-08-2022 X-ray of left ankle [facility] Clarita Nena Work Phone: Start: 04-01-2018 [...] Date Payer Category Payer Unknown 2022 Medicare [id number] 2022 Self-pay 1959 Unknown [id number] 1953 Unknown [id number] 2.16.84 0.1.549319.3.579.2.593 1953 Unknown [id number] 2.16.84 0.1.877455.3.579.2.593 1953 Unknown [id number] 2.16.84 0.1.984385.3.579.2.593 1953 Unknown [id number] 2.16.84 0.1.185960.3.579.2.593 1953 Unknown [id number] 2.16.84 0.1.314778.3.579.2.593 1953 Unknown [id number] 2.16.84 0.1.067624.3.579.2.593 1953 Unknown [id number] 2.16.84 0.1.539021.3.579.2.593 1953 Unknown [id number] 2.16.84 0.1.204052.3.579.2.593 1953 Unknown [id number] 2.16.84 0.1.010401.3.579.2.593 1953 Unknown [id number] 2.16.84 0.1.893703.3.579.2.593 1953 Unknown [id number] 2.16.84 0.1.207331.3.579.2.593 1953 Unknown [id number] 2.16.84 0.1.833810.3.579.2.593 1953 Unknown [id number] 2.16.84 0.1.287548.3.579.2.593 1953 Unknown [id number] 2.16.84 0.1.171417.3.579.2.593 1953 Unknown [id number] 2.16.84 0.1.983926.3.579.2.593 1953 Unknown [id number] 2.16.84 0.1.030849.3.579.2.593 1953 Unknown [id number] 2.16.84 0.1.936250.3.579.2.593 1953 Unknown [id number] 2.16.84 0.1.326393.3.579.2.593 1953 Unknown [id number] 2.16.84 0.1.601393.3.579.2.593 1953 Unknown [id number] 2.16.84 0.1.663464.3.579.2.593 1953 Unknown [id number] 2.16.84 0.1.505473.3.579.2.593 1953 Unknown [id number] 2.16.84 0.1.062699.3.579.2.593 1953 Unknown [id number] 2.16. 840.1.004130.3.579.2.196 1955 Unknown [id number] 1955 Unknown [id number] Medicare [id number] Unknown [facility] [id number] Unknown [employer]/BS [id number] Unknown [id number] Social History Date Type Detail [facility] Work Phone: Start: 1955 Sex Assigned At Female [facility] Start: 03-20-2024 Tobacco smoking status Ex-smoker (fi nding) [facility] Tobacco smoking status Never [facility] Sex Assigned At Female [facility] Functional Status Date Assessment Result Facility 03-20-2024 Functional Status N/A [facility] Clinical Notes 11-05-2021 to 03-20-2024 [...] 1 tab(s), Or (more content not included)... [facility] Comment on above: Result Comment: Elec tronically Signed By: SHASHA GRANT, Anderson Serrano.nigel\Date and Time Signed: 03/20/24 16:53 EDT 11-28-2023 Note [facility] Note Chief Complaint: Patient here [...] mouth in the morning., Disp: , Rfl: lehxwxpbfu-wycnwjlrsdylg-zysa 50-325-40 mg tablet, Take 1 tablet by [...] sinus rhythm Echocar (more content not included)... [facility] 10-18-2023 Note [facility] Note Chief Complaint: New patient here to establish care. Ref from Dr. Townsend for abnormal EKG. She also wore 7 day Holter monitor, and says she did not work while wearing this. She works at [employer] and says it's very fast paced. States she drinks a 5 Hour Energy shot almost every day. She was admitted to [facility] for migraine recently and was found to have abnormal EKG. Recently has noticed a twinge of chest pain. C/o DAI, palpitations, and lightheadedness. HPI: Mary Vick is a 68 y.o. female With a history of hypertension and hypothyroidism who presents due to an abnormal Holter monitor She was admitted to the [facility] for migraine; a monitor revealed both SVT [...] Plan: Routine labs (more content not included)... [facility] 07-08-2022 Note CONSULTATION PROCEDURE DATE: [...] in the clinic in three months. [facility] 06-24-2022 Note CONSULTATION CONSULTATION DATE: 06/24/2022 HISTORY [...] at a time, as she works at [employer]. Current medications include Percocet 5/325 daily, diclofenac [...] pending approval for her knee injections. [facility] 04-08-2022 Note CONSULTATION CONSULTATION DATE: 04/08/2022 HISTORY [...] three months' time unless otherwise indicated. [facility] 03-09-2022 Note CONSULTATION CONSULTATION DATE: 03/09/2022 CHIEF [...] to proceed. CC: Natividad Silva CNP [facility] 01-28-2022 Note CONSULTATION CONSULTATION DATE: 01/30/2022 HISTORY [...] and re-evaluation of her bursa injection. [facility] 01-28-2022 Note CONSULTATION PROCEDURE DATE: 01/30/2022 PREOPERATIVE [...] be followed up in the clinic. [facility] 11-12-2021 Note PROCEDURE: XR HIPS B IL [...] by: RAUDEL ESTRADA Date: 2021-11-12 07:50 [facility] 11-05-2021 Note CONSULTATION PROCEDURE DATE:11/05/2021 PREOPERATIVE DIAGNOSIS: [...] will be followed up in the office. [facility] Signed and Approved by: JOEL RAMON . 11/18/2021 16:24:00 [facility] 11-05-2021 Note CONSULTATION CONSULTATION DATE: 11/05/2021 HISTORY [...] time, was working half a day at [employer] and since then has increased to full [...] in three months' time unless otherwise indicated. [facility] Signed and Approved by: JOEL RAMON . 11/18/2021 16:24:00 [facility] Evaluation + Plan note No data available for this section [facility] Evaluation note No assessment inform ation available [facility] Work Phone: Hospital Discharge instructions No data available for this section [facility] Progress note No data available for this section [facility] Summary Purpose Family History No Family [...] section and content) DATE CREATED AUTHOR 12/21/2017 [facility] DATE CREATED AUTHOR AUTHOR'S ORGANIZ ATION 05/01/2018 [facility] DATE CREATED AUTHOR AUTHOR'S ORGANIZ ATION 05/17/2022 [facility] DATE CREATED AUTHOR AUTHOR'S ORGANIZ ATION 10/06/2022 [facility] DATE CREATED AUTHOR AUTHOR'S ORGANIZ ATION 08/03/2023 [facility] DATE CREATED AUTHOR AUTHOR'S ORGANIZ ATION 11/28/2023 [facility] DATE CREATED AUTHOR AUTHOR'S ORGANIZ ATION 05/03/2024 [facility] Care Teams (unrecognized sec tion and [...] BE BASED ON THE PRIMARY CLINICAL RECORDS. [facility]. provides no warranty or guarantee of the accuracy or completeness of information in this document.
== END 2024-07-16 09:06 | disposition home or self-care (01) ==
LOC: EC 09:06
PROVIDERS: PCP Nurse Practitioner Family; Visit Provider Orthopaedic Surgery
DX: S52.572D Other intraarticular fracture of lower end of left radius, subsequent encounter for closed fracture with routine healing (principal)
CPT/HCPCS: 73110

== ENCOUNTER 2024-08-01 14:10 | Outpatient (RCR) | payer OTHER, SELFPAY | END 2024-08-25 08:37 | disposition home or self-care (01) | LOC: OT 14:10 | PROVIDERS: PCP Nurse Practitioner Family; Visit Provider Physician Assistant | DX: S52.572D Other intraarticular fracture of lower end of left radius, subsequent encounter for closed fracture with routine healing (principal); S01.511D Laceration without foreign body of lip, subsequent encounter; S22.43XD Multiple fractures of ribs, bilateral, subsequent encounter for fracture with routine healing; S52.502D Unspecified fracture of the lower end of left radius, subsequent encounter for closed fracture with routine healing | CPT/HCPCS: 97022; 97110; 97140; 97165; 97530 ==

== ENCOUNTER 2024-08-13 08:56 | Outpatient (OUT) | payer MEDICARE, SELFPAY ==
--- NOTE | 2024-08-13 08:57 | XR_ITS ---
[facility] [place] [id number] Patient Name: MELANIE TOMPKINS MRN: [id number] date: 1955 Sex: F Assigned Patient Location: Current Patient Location: Accession/Order Number: [id number] Exam Date: 08/13/2024 14:03 Report Date: 08/13/2024 14:04 At the request of: RAUDEL ROYAL MD Procedure: XR wrist LT min 3V LEFT WRIST - 3 views CLINICAL HISTORY: Closed displaced fracture of styloid process of left ulna COMPARISON: Left wrist 07/16/2024 FINDINGS: No hardware complication. Distal radius fracture is grossly unchanged. Distal ulnar fracture is less conspicuous suggestive of healing response. XR/XR wrist LT min 3V IMPRESSION: DISTAL RADIUS FRACTURE IS UNCHANGED WITHOUT EVIDENCE OF HARDWARE COMPLICATION. HEALING DISTAL ULNAR FRACTURE. Impression dictated by: Travis Borrero Jr., D.OAnkur08/13/2024 2:04 PM Dictation Location: [employer] Electronically authenticated by: [id number] Y Date: 08/13/2024 14:04
--- OUTSIDE RECORDS SUMMARY | 2024-08-13 09:15 | XMS_ITS | CCD ---
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 DEFINITIONS OF MYOCARDIAL INFARCTION. THE UPPER REFERENCE LIMIT (URL) OF TROPONIN, DEFINED THE 99TH PERCENTILE OF cTnI DISTRIBUTION IN A REFERENCE POPULATION, HAS BEEN CONFIRMED THE DECISION THRESHOLD FOR GA DIAGNOSIS. Performed By: #### H DENIS, CMP ####[facility] [address] [place], [place] [address]Dr. Deborah Mohan XR CHEST 1 Von 04-07-2022 [...] ANDERSON ALMANZAR Date: 2022-04-07 03:11 Normal [facility] HEMOGLOBINon 03-12-2022 Hemoglobin (Bld) [Mass/Vol] 9.2 g/dL Critically low 12.0-16.0 [facility] Comment on above: Performed By: #### A NARF #### [facility] [address] [address] [address] Deborah Mohan ANTI NEUTROPHIL CYTOPLASMIC AB (ANCA) PRon 03-09-2022 Anti-MPO Antibodies <0.2 Normal 0.0-0.9 [facility] Comment on above: Result Comment: Perf ormed at: BN Performed By: #### B WEATHER STRIP INSTALLER, HSTROPN, CMP #### [facility] [address] [address] [address] Deobrah Mohan Anti-PR3 Antibodies <0.2 Normal 0.0-0.9 [facility] Comment on above: Result Comment: Perf ormed at: BN Performed By: #### B WEATHER STRIP INSTALLER, HSTROPN, CMP #### [facility] [address] [address] [address] Deborah Mohan Atypical pANCA 1:160 Critically high Neg:<1:20 [facility] Comment on above: Result Comment: The atypical pANCA pattern has been observed in a significant percentage of patients with ulcerative colitis, primary sclerosing cholangitis and autoimmune hepatitis. Performed at: CB Performed By: #### B WEATHER STRIP INSTALLER, HSTROPN, CMP #### [facility] [address] [address] [address] Deborah Mohan Cytoplasmic (C-ANCA) <1:20 Normal Neg:<1:20 [facility] Comment on above: Result Comment: Perf ormed at: CB Performed By: #### B PHILLIP JONES CMP #### [facility] [address] [address] [address] Deborah Mohan Perinuclear (P-ANCA) <1:20 Normal Neg:<1:20 [facility] Comment on above: Result Comment: The presence of positive fluorescence exhibiting P-ANCA or C-ANCA patterns alone is not specific for the diagnosis of Marlin's Granulomatosis (WG) or microscopic polyangiitis. Decisions about treatment should not be based solely on ANCA IFA results. The [employer] AN[employer] Consensus recommends follow up testing of positive sera with both SD-3 and MPO-ANCA enzyme immunoassays. As many as 5% serum samples are positive only by EIA. Ref. AM J Clin Pathol 1999;111:507-513. Performed at: CB Performed By: #### B PHILLIP JONES CMP #### [facility] [address] [place] [address] Dr. Deborah Mohan ANTISCLERODERMA ABon 022 Antiscleroderma-70 Antibodies <0.2 Normal 0.0-0.9 [facility] Comment on above: Performed By: #### A NARF #### [facility] [address] [place] [address] CHEST WO CONon [...] incidental findings, as described above. Normal [facility] CYCLIC CITRULLINATED PEPTIDE AB (CCP)on 03-09-2022 CCP Antibodies IgG/IgA 6 units Normal 0-19 [facility] Comment on above: Result Comment: Nega tive <20 Weak positive 20 - 39 Moderate positive 40 - 59 Strong positive >59 Performed By: #### B WEATHER STRIP INSTALLER, HSTROPN, CMP #### [facility] [address] [place], [place] [address] Dr. Deborah Mohan IGG SUBCLASSES (1-4) AND TOT Kade 03-09-2022 IgG, Subclass 1 448 mg/dL Normal 248-[address] [facility] Comment on above: Performed By: #### B WEATHER STRIP INSTALLER, HSTROPN, CMP #### [facility] [address] [id number] Deborah Mohan IgG, Subclass 2 253 mg/dL Normal 130-[address] [facility] Comment on above: Performed By: #### B WEATHER STRIP INSTALLER, HSTROPN, CMP #### [facility] [address] [address] [address] Deborah Mohan IgG, Subclass 3 95 mg/dL Normal 15-[address] [facility] Comment on above: Performed By: #### B WEATHER STRIP INSTALLER, HSTROPN, CMP #### [facility] [address] [id number] Deborah Mohan IgG, Subclass 4 10 mg/dL Normal 2-96 [facility] Comment on above: Performed By: #### B WEATHER STRIP INSTALLER, HSTROPN, CMP #### [facility] [address] [place], [place] [address] Dr. Deborah Mohan Immunoglobulin G, Qn, Serum 658 mg/dL Normal 586-1602 [facility] Comment on above: Performed By: #### B WEATHER STRIP INSTALLER, HSTROPN, CMP #### [facility] [address] [id number] Deborah Mohan IMMUNOGLOBULIN E, TOTALon Immunoglobulin E, Total 5 IU/mL Critically low 6-495 [facility] Comment on above: Performed By: #### I GETOT ####[facility] [address] [place], [place] [address]VeDr. Deborah Mohan MICHELL EIA W/REFLEX 5 BIOMARKER Son 03-08-2022 MICHELL Direct Negative Normal Negative [facility] Comment on above: Performed By: #### A NARF #### [facility] [address] [address] [address] Deborah Mohan ANGIOTENSION-CONVERTING ENZY ME (FRANCESCO)on 03-08-2022 FRANCESCO 32 U/L Normal 14-82 [facility] Comment on above: Performed By: #### A NGIOC ####[facility] [address] [address]DrAnkur Mohan ANTIGLOMERULAR BASEMENT MEMB ROMMEL ABSon 03-08-2022 Anti-GBM Antibodies <0.2 Normal 0.0-0.9 [facility] Comment on above: Performed By: #### A GBM #### [facility] [address] [address] [address] Deborah Mohan IMMUNOGLOBULIN IGA QUANTITIA VEon 03-06-2022 Immunoglobulin A, Qn, Serum 229 mg/dL Normal 87-352 [facility] Comment on above: Performed By: #### A NARF #### [facility] [address] [address] [address] Deborah Mohan IMMUNOGLOBULIN IGM QUANTITAT IVEon 03-06-2022 Immunoglobulin M, Qn, Serum 83 mg/dL Normal 26-217 [facility] Comment on above: Performed By: #### B WEATHER STRIP INSTALLER, HSTROPN, CMP #### [facility] [address] [address] [address] Deborah Mohan RHEUMATOID FACTORon 03-06-20 22 RA Latex Turbid. 10.9 IU/mL Normal <14.0 [facility] Comment on above: Performed By: #### R F ####[facility] [address] [address]Dr. Deborah Mohan CREATININEon 03-05-2022 Creatinine [Mass/Vol] 1.38 mg/dL Critically high 0.55-1.02 [facility] Comment on above: Performed By: #### C MELVINA ####[facility] [address] [address]DrAnkur Mohan EGFR-AF PUERTO RICAN 46 mL/min/1.73m2 Critically low >=60 [facility] Comment on above: Performed By: #### C MELVINA ####[facility] [address] [place], [place] [address]UmAnkur Mohan EGFR-NON AF PUERTO RICAN 38 mL/min/1.73m2 Critically low >=60 [facility] Comment on above: Performed By: #### C MELVINA ####[facility] [address] [place], [place] [address]WdDr. Deborah Mohan SED RATE WESTERGRENon 2021 SED RATE 92 mm/hr Critically high <=30 [facility] Comment on above: Performed By: #### B WEATHER STRIP INSTALLER, HSTROPN, CMP #### [facility] [address] [place], [place] [address] Dr. Deborah Mohan XR DEXA BONE DENSITYon [...] ROBERT CONDON Date: 2022-03-05 16:56 Normal [facility] XR CHEST 1 Von 03-01-2022 XR [...] ROBERT NOVAK Date: 2022-02-28 22:27 Normal [facility] XR KNEE LUANA 4V or >on [...] RAUDEL ESTRADA Date: 2022-01-29 11:09 Normal [facility] CBC AUTO DIFFon 11-29-2021 BASO # 0.1 103/ul Normal 0.0-0.1 [facility] Comment on above: Performed By: #### C BC ####[facility] [address] [address]Dr. Deborah Moahn Basophils/100 WBC (Bld) 0.8 % Normal 0.2-2.0 [facility] Comment on above: Performed By: #### C BC ####[facility] [address] [address]Dr. Deborah Mohan EO # 0.3 103/ul Normal 0.0-0.7 [facility] Comment on above: Performed By: #### C BC ####[facility] [address] [address]Dr. Deborah Mohan Eosinophils/100 WBC (Bld) 2.2 % Normal 0.9-7.0 [facility] Comment on above: Performed By: #### C BC ####[facility] [address] [place], [place] [address]Dr. Deborah Mohan Erythrocyte distribution width (RBC) [Ratio] 21.2 % Critically high 11.0-15.0 [facility] Comment on above: Performed By: #### C BC ####[facility] [address] [place], [place] [address]Dr. Deborah Mohan Hematocrit (Bld) [Volume fraction] 33.2 % Critically low 36.0-48.0 [facility] Comment on above: Performed By: #### C BC ####[facility] [address] [id number]. Deborah Mohan Hemoglobin (Bld) [Mass/Vol] 10.3 g/dL Critically low 12.0-16.0 [facility] Comment on above: Performed By: #### C BC ####[facility] [address] [address]Dr. Deborah Mohan IG # 0.11 10e3/ul Critically high 0.00-0.03 [facility] Comment on above: Performed By: #### C BC ####[facility] [address] [address]Dr. Deborah Mohan IG % 0.9 % Critically high 0.0-0.[address] [facility] Comment on above: Performed By: #### C BC ####[facility] [address] [address]Dr. Deborah Mohan LYMPH # 2.2 103/ul Normal 1.2-3.8 [facility] Comment on above: Performed By: #### C BC ####[facility] [address] [phone]. Deborah Mohan Lymphocytes/100 WBC (Bld) 18.5 % Critically low 20.5-60.0 [facility] Comment on above: Performed By: #### C BC ####[facility] [address] [address]Dr. Deborah Mohan MANUAL DIFF REQ NO Normal [facility] Comment on above: Performed By: #### C BC ####[facility] [address] [address]Dr. Deborah Mohan MCH (RBC) [Entitic mass] 26.3 pg Critically low 26.7-34.0 [facility] Comment on above: Performed By: #### C BC ####[facility] [address] [address]Dr. Deborah Mohan MCHC (RBC) [Mass/Vol] 31.0 g/dL Normal 29.9-35.2 [facility] Comment on above: Performed By: #### C BC ####[facility] [address] [phone]. Deborah Mohan MCV (RBC) [Entitic vol] 84.9 fL Normal 81.0-99.0 [facility] Comment on above: Performed By: #### C BC ####[facility] [address] [address]Dr. Deborah Mohan MONO # 0.6 103/ul Normal 0.3-0.8 [facility] Comment on above: Performed By: #### C BC ####[facility] [address] [address]Dr. Deborah Mohan Monocytes/100 WBC (Bld) 5.3 % Normal 1.7-12.0 [facility] Comment on above: Performed By: #### C BC ####[facility] [address] [place], [place] [address]Dr. Deborah Mohan NEUT # 8.4 103/ul Critically high 1.4-6.5 [facility] Comment on above: Performed By: #### C BC ####[facility] [address] [place], [place] [address]Dr. Deborah Mohan Neutrophils/100 WBC (Bld) 72.3 % Normal 43.0-75.0 [facility] Comment on above: Performed By: #### C BC ####[facility] [address] [place], [place] [address]Dr. Deborah Mohan Platelet mean volume (Bld) [Entitic vol] 10.1 fL Normal 9.5-13.5 [facility] Comment on above: Performed By: #### C BC ####[facility] [address] [address]Dr. Deborah Mohan PLT 351 103/ul Normal 150-450 [facility] Comment on above: Performed By: #### C BC ####[facility] [address] [address]Dr. Deborah Mohan RBC 3.91 106/ul Critically low 4.20-5.40 [facility] Comment on above: Performed By: #### C BC ####[facility] [address] [place], [place] [address]JlAnkur Mohan WBC 11.6 103/ul Critically high 4.0-11.0 [facility] Comment on above: Performed By: #### C BC ####[facility] [address] [place], [place] [address]Yj. Deborah Mohan CTA CHEST WO W CONon [...] 2. Bilateral peripheral fibrosis and/or scarring with fqnn-rn-nvisizhx groundglass densities. The groundglass densities are slightly decreased compared to the prior scan. 3. Old calcified granulomas in the chest and abdomen. 4. Large hiatal hernia. 5. Moderate diffuse osteopenia. Electronically authenticated by: BERNARDO DENNY Date: 2021-11-29 20:31 Normal [facility] D-DIMERon 11-29-2021 D-DIMER 1.14 mg/L FEU Critically high <=0.59 [facility] Comment on above: Performed By: #### A NARF #### [facility] [address] [place] [address] Dr. Deborah Mohan D-DIMER COMMENTS SEE BELOW Normal [facility] Comment on above: [...] hospitalization. Performed By: #### A NARF #### [facility] [address] [place] [address] Dr. Deborah Mohan PROF CHEM 8 (BAS METB)on Anion gap [Moles/Vol] 11.7 mmol/L Normal [facility] Comment on above: Performed By: #### B KYLEE HSTROPN #### [facility] [address] [place] [address] Dr. Deborah Mohan Calcium [Mass/Vol] 8.7 mg/dL Normal 8.5-10.1 [facility] Comment on above: Performed By: #### B KYLEE HSTROPN #### [facility] [address] [place] [address] Dr. Deborah Mohan Chloride [Moles/Vol] 107 mmol/L Normal 98-107 [facility] Comment on above: Performed By: #### B KYLEE HSTROPN #### [facility] [address] [place] [address] Dr. Deborah Mohan CO2 [Moles/Vol] 25.3 mmol/L Normal 21.0-32.0 [facility] Comment on above: Performed By: #### B KYLEE, HSTROPN #### [facility] [address] [address] [address] Deborah Mohan Creatinine [Mass/Vol] 0.98 mg/dL Normal 0.55-1.02 [facility] Comment on above: Performed By: #### B KYLEE, HSTROPN #### [facility] [address] [address] [address] Deborah Mohan EGFR-AF PUERTO RICAN >60 Normal >=60 [facility] Comment on above: Performed By: #### B KYLEE, HSTROPN #### [facility] [address] [place] [address] Dr. Deborah Mohan EGFR-NON AF PUERTO RICAN 56 mL/min/1.73m2 Critically low >=60 [facility] Comment on above: Performed By: #### B KYLEE, HSTROPN #### [facility] [address] [place] [address] Dr. Deborah Mohan Glucose [Mass/Vol] 105 mg/dL Normal 74-106 [facility] Comment on above: Performed By: #### B KYLEE, HSTROPN #### [facility] [address] [place] [address] Dr. Deborah Mohan Potassium [Moles/Vol] 4.0 mmol/L Normal 3.5-5.1 [facility] Comment on above: Performed By: #### B KYLEE, HSTROPN #### [facility] [address] [place] [address] Dr. Deborah Mohan Sodium [Moles/Vol] 140 mmol/L Normal 136-145 [facility] Comment on above: Performed By: #### B KYLEE, HSTROPN #### [facility] [address] [place] [address] Dr. Deborah Mohan Urea nitrogen [Mass/Vol] 21.0 mg/dL Critically high 7.0-18.0 [facility] Comment on above: Performed By: #### B KYLEE, HSTROPN #### [facility] [address] [place], [place] [address] Dr. Deborah Mohan Urea nitrogen/Creatinine [Mass ratio] 21.4 mg/mg Normal [facility] Comment on above: Performed By: #### B KYLEE, HSTROPN #### [facility] [address] [address] [address] Deborah Mohan TROPONIN, HIGH SENSITIVITYon 11-29-2021 HSTROP 4.5 pg/mL Normal 4.0-51.3 [facility] Comment on above: Result Comment: CUT- OFF POINTS HAVE BEEN ESTABLISHED BASED ON THE FOURTH UNIVERSAL DEFINITIONS OF MYOCARDIAL INFARCTION. THE UPPER REFERENCE LIMIT (URL) OF TROPONIN, DEFINED THE 99TH PERCENTILE OF cTnI DISTRIBUTION IN A REFERENCE POPULATION, HAS BEEN CONFIRMED THE DECISION THRESHOLD FOR GA DIAGNOSIS. Performed By: #### H STROPN ####[facility] [id number] [place], [place] [address]NlDr. Deborah Mohan HSTROP 6.0 pg/mL Normal 4.0-51.3 [facility] Comment on above: Result Comment: CUT- OFF POINTS HAVE BEEN ESTABLISHED BASED ON THE FOURTH UNIVERSAL DEFINITIONS OF MYOCARDIAL INFARCTION. THE UPPER REFERENCE LIMIT (URL) OF TROPONIN, DEFINED THE 99TH PERCENTILE OF cTnI DISTRIBUTION IN A REFERENCE POPULATION, HAS BEEN CONFIRMED THE DECISION THRESHOLD FOR GA DIAGNOSIS. Performed By: #### B KYLEE, HSTROPN #### [facility] [address] [address] [address] Deborah Mohan XR CHEST 1 Von [...] KANDY BARRY Date: 2021-11-29 19:20 Normal [facility] XR LSPINE W_OBLS AND FLEX_EX Ton [...] RAUDEL ESTRADA Date: 2021-11-12 07:56 Normal [facility] CALCIUMon 11-11-2021 Calcium [Mass/Vol] 9.0 mg/dL Normal 8.5-10.1 [facility] Comment on above: Performed By: #### A NARF #### [facility] [address] [address] [address] Deborah Mohan CREATININEon 11-11-2021 Creatinine [Mass/Vol] 1.47 mg/dL Critically high 0.55-1.02 [facility] Comment on above: Performed By: #### A NARF #### [facility] [address] [address] [address] Deborah Mohan EGFR-AF PUERTO RICAN 43 mL/min/1.73m2 Critically low >=60 [facility] Comment on above: Performed By: #### A NARF #### [facility] [address] [address] [address] Deborah Mohan EGFR-NON AF PUERTO RICAN 35 mL/min/1.73m2 Critically low >=60 [facility] Comment on above: Performed By: #### A NARF #### [facility] [address] [place] [address] Dr. Deborah Mohan Vital Signs Date Time Vital Sign Value Performing Clinician Faci lity 03-20-2024 14:57-0400 Blood Pressure Location Anderson SHASHA [facility] [place] 03-20-2024 14:57-0400 Diastolic blood pressure 82 mm[Hg] Anderson NILL [facility] [place] 03-20-2024 14:57-0400 Heart rate 70 /min Anderson NILL [facility] [place] 03-20-2024 14:57-0400 Respiratory rate 16 /min Anderson NILL [facility] [place] 03-20-2024 14:57-0400 Systolic blood pressure 126 mm[Hg] Anderson NILL [facility] [place] Encounters Encounter Date Encounter Type Care Provider Facility Start: 04-25-2024 End: 04-25-2024 ambulatory Anderson Wiley RICHL Facility:CD:[id number] Start: 03-20-2024 End: 03-20-2024 ambulatory Luisito Townsend Facility: [place] Start: 03-20-2024 End: 03-20-2024 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 procedure Anderson VILLANUEVAL [facility] [place] Start: 02-10-2024 ambulatory Luisito Hoy Facility:[facility] [...] End: 05-08-2022 ambulatory Clarita Nena Facility: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 Clarita Nena Work Phone: [facility] Work Phone: Start: 05-08-2022 End: 05-08-2022 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 procedure DRESS CAP MAKER-C Clarita Nena Work Phone: [facility] Start: [...] department patient visit BRANDON RUSSELL [facility] Start: 12-11-2017 End: 12-11-2017 Emergency department patient visit ROBERT HURLEY Facility:[facility] Procedures Date Procedure Procedure Detail Performing Clinician Start: 05-08-2022 Plain X-ray of left wrist [employer]-[facility] Clarita Blakeault Work Phone: Start: 05-08-2022 X-ray of left ankle DRESS [employer] -C Clarita Nena Work Phone: Start: 04-01-2018 [...] Date Payer Category Payer Unknown 2022 Medicare [id number] 2022 Self-pay 1959 Unknown [id number] 1955 Unknown [id number] 2.16.84 0.1.933561.3.579.2.593 1953 Unknown [id number] 2.16.84 0.1.428893.3.579.2.593 1953 Unknown [id number] 2.16.84 0.1.487242.3.579.2.593 1953 Unknown [id number] 2.16.84 0.1.595326.3.579.2.593 1953 Unknown [id number] 2.16.84 0.1.634870.3.579.2.593 1953 Unknown [id number] 2.16.84 0.1.780648.3.579.2.593 1953 Unknown [id number] 2.16.84 0.1.302894.3.579.2.593 1953 Unknown [id number] 2.16.84 0.1.730340.3.579.2.593 1953 Unknown [id number] 2.16.84 0.1.060321.3.579.2.593 1953 Unknown [id number] 2.16.84 0.1.335670.3.579.2.593 1953 Unknown [id number] 2.16.84 0.1.837641.3.579.2.593 1953 Unknown [id number] 2.16.84 0.1.527764.3.579.2.593 1953 Unknown [id number] 2.16.84 0.1.012721.3.579.2.593 1953 Unknown [id number] 2.16.84 0.1.505272.3.579.2.593 1953 Unknown [id number] 2.16.84 0.1.753717.3.579.2.593 1953 Unknown [id number] 2.16.84 0.1.028662.3.579.2.593 1953 Unknown [id number] 2.16.84 0.1.184260.3.579.2.593 1953 Unknown [id number] 2.16.84 0.1.646185.3.579.2.593 1953 Unknown [id number] 2.16.84 0.1.373307.3.579.2.593 1953 Unknown [id number] 2.16.84 0.1.268582.3.579.2.593 1953 Unknown [id number] 2.16.84 0.1.788565.3.579.2.593 1953 Unknown [id number] 2.16.84 0.1.053671.3.579.2.593 1953 Unknown [id number] 2.16. 840.1.659995.3.579.2.196 1955 Unknown [id number] 2.16.8 40.1.074810.3.579.2.727 1955 Unknown [id number] 2.16.8 40.1.838405.3.579.2.727 Medicare [id number] [place] [facility] [id number] Unknown [employer]/BS [id number] Unknown [id number] 2.16.8 40.1.673250.3.579.2.531 Social History Date Type Detail [facility] Work Phone: Start: 1955 Sex Assigned At Female [facility] Start: 03-20-2024 Tobacco smoking status Ex-smoker (fi nding) [facility] Tobacco smoking status Never [facility] Sex Assigned At Female [facility] Functional Status Date Assessment Result Facility 03-20-2024 Functional Status N/A [facility] Clinical Notes 11-05-2021 to 03-20-2024 Note [...] 1 tab(s), Or (more content not included)... [facility] Comment on above: Result Comment: Elec tronically Signed By: SHASHA GRANT, Anderson Serrano.nigel\Date and Time Signed: 03/20/24 16:53 EDT 11-28-2023 Note [facility] Cardiology Clinic Note Chief Complaint: Patient [...] mouth in the morning., Disp: , Rfl: kqqqcvytpm-eomhgligszxsh-uhpt 50-325-40 mg tablet, Take 1 tablet by [...] sinus rhythm Echocar (more content not included)... [facility] 10-18-2023 Note [facility] Cardiology Clinic Note Chief Complaint: New patient here to establish care. Ref from Dr. Townsend for abnormal EKG. She also wore 7 day Holter monitor, and says she did not work while wearing this. She works at [employer] and says it's very fast paced. States she drinks a 5 Hour Energy shot almost every day. She was admitted to [facility] for migraine recently and was found to have abnormal EKG. Recently has noticed a twinge of chest pain. C/o DAI, palpitations, and lightheadedness. HPI: Mary Vick is a 68 y.o. female With a history of hypertension and hypothyroidism who presents due to an abnormal Holter monitor She was admitted to the [facility] for migraine; a monitor revealed both [...] Plan: Routine labs (more content not included)... [facility] 07-08-2022 Note CONSULTATION PROCEDURE DATE: [...] in the clinic in three months. [facility] 06-24-2022 Note CONSULTATION CONSULTATION DATE: 06/24/2022 [...] at a time, as she works at [employer]. Current medications include Percocet 5/325 daily, diclofenac [...] pending approval for her knee injections. [facility] 04-08-2022 Note CONSULTATION CONSULTATION DATE: 04/08/2022 [...] three months' time unless otherwise indicated. [facility] 03-09-2022 Note CONSULTATION CONSULTATION DATE: 03/09/2022 [...] to proceed. CC: Natividad Silva CNP [facility] 01-28-2022 Note CONSULTATION CONSULTATION DATE: 01/30/2022 [...] and re-evaluation of her bursa injection. [facility] 01-28-2022 Note CONSULTATION PROCEDURE DATE: 01/30/2022 [...] be followed up in the clinic. [facility] 11-12-2021 Note PROCEDURE: XR HIPS B [...] by: RAUDEL ESTRADA Date: 2021-11-12 07:50 [facility] 11-05-2021 Note CONSULTATION PROCEDURE DATE:11/05/2021 PREOPERATIVE [...] will be followed up in the office. [facility] Signed and Approved by: JOEL RAMON . 11/18/2021 16:24:00 [facility] 11-05-2021 Note CONSULTATION CONSULTATION DATE: 11/05/2021 [...] time, was working half a day at [employer] and since then has increased to full [...] in three months' time unless otherwise indicated. [facility] Signed and Approved by: JOEL RAMON . 11/18/2021 16:24:00 [facility] Evaluation + Plan note No data available for this section [facility] Evaluation note No assessment inform ation available [facility] Work Phone: Hospital Discharge instructions No data available for this section [facility] Progress note No data available for this section [facility] Summary Purpose Family History No Family History [...] section and content) DATE CREATED AUTHOR 12/21/2017 [facility] DATE CREATED AUTHOR AUTHOR'S ORGANIZ ATION 05/01/2018 [facility] DATE CREATED AUTHOR AUTHOR'S ORGANIZ ATION 05/17/2022 [facility] DATE CREATED AUTHOR AUTHOR'S ORGANIZ ATION 10/06/2022 [facility] DATE CREATED AUTHOR AUTHOR'S ORGANIZ ATION 08/03/2023 [facility] DATE CREATED AUTHOR AUTHOR'S ORGANIZ ATION 11/28/2023 [facility] DATE CREATED AUTHOR AUTHOR'S ORGANIZ ATION 05/03/2024 [facility] Care Teams (unrecognized sec tion [...] CLINICAL RECORDS. [facility] [employer] [facility]. provides no warranty or guarantee of the accuracy or completeness of information in this document.
== END 2024-08-13 08:57 | disposition home or self-care (01) ==
LOC: EC 08:56
PROVIDERS: PCP Nurse Practitioner Family; Visit Provider Orthopaedic Surgery
DX: S52.612D Displaced fracture of left ulna styloid process, subsequent encounter for closed fracture with routine healing (principal); S52.572D Other intraarticular fracture of lower end of left radius, subsequent encounter for closed fracture with routine healing
CPT/HCPCS: 73110

== ENCOUNTER 2024-09-10 08:59 | Outpatient (OUT) | payer OTHER, SELFPAY ==
--- NOTE | 2024-09-10 | XR_ITS ---
The [address] [address] Patient Name: MELANIE TOMPKINS MRN: [id number] date: 1955 Sex: F Assigned Patient Location: Current Patient Location: Accession/Order Number: [id number] Exam Date: 09/10/2024 10:26 Report Date: 09/10/2024 10:27 At the request of: RAUDEL ROYAL MD Procedure: XR wrist LT min 3V 3 views left wrist plain film COMPARISON: 08/13/2024 HISTORY: Follow-up left wrist ORIF ACUTE FINDINGS: Continued healing. Stable alignment. DEGENERATIVE CHANGE: Unremarkable SOFT TISSUE FINDINGS: Unremarkable JOINT EFFUSION: None POSTOP CHANGES: No hardware failure. BONE MINERALIZATION: Adequate XR/XR wrist LT min 3V IMPRESSION: Healing fracture with stable alignment and hardware. Impression dictated by: Ghanshyam Mendez M.D.09/10/2024 10:27 AM Dictation Location: [address] [place] [address] Electronically authenticated by: [id number] Y Date: 09/10/2024 10:27
--- OUTSIDE RECORDS SUMMARY | 2024-09-10 09:14 | XMS_ITS | CCD ---
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 CMP ####[facility] [address] [place], [place] [address]Dr. Deborah Mohan XR CHEST 1 Von 04-07-2022 [...] ANDERSON ALMANZAR Date: 2022-04-07 03:11 Normal [facility] HEMOGLOBINon 03-12-2022 Hemoglobin (Bld) [Mass/Vol] 9.2 g/dL Critically low 12.0-16.0 [facility] Comment on above: Performed By: #### A NARF #### [facility] [address] [address] [address] Deborah Mohan ANTI NEUTROPHIL CYTOPLASMIC AB (ANCA) PRon 03-09-2022 Anti-MPO Antibodies <0.2 Normal 0.0-0.9 [facility] Comment on above: Result Comment: Perf ormed at: BN Performed By: #### B MANAGER LOCATION, HSTROPN, CMP #### [facility] [address] [address] [address] Deborah Mohan Anti-PR3 Antibodies <0.2 Normal 0.0-0.9 [facility] Comment on above: Result Comment: Perf ormed at: BN Performed By: #### B MANAGER LOCATION, HSTROPN, CMP #### [facility] [address] [address] [address] Deborah Mohan Atypical pANCA 1:160 Critically high Neg:<1:20 [facility] Comment on above: Result Comment: The atypical pANCA pattern has been observed in a significant percentage of patients with ulcerative colitis, primary sclerosing cholangitis and autoimmune hepatitis. Performed at: CB Performed By: #### B MANAGER LOCATION, HSTROPN, CMP #### [facility] [address] [address] [address] Deborah Mohan Cytoplasmic (C-ANCA) <1:20 Normal Neg:<1:20 [facility] Comment on above: Result Comment: Perf ormed at: CB Performed By: #### B PHILLIP JONES CMP #### [facility] [address] [address] [address] Deborah Mohan Perinuclear (P-ANCA) <1:20 Normal Neg:<1:20 [facility] Comment on above: Result Comment: [...] By: #### B PHILLIP JONES CMP #### [facility] [address] [place] [address] Dr. Deborah Mohan ANTISCLERODERMA ABon 022 Antiscleroderma-70 Antibodies <0.2 Normal 0.0-0.9 [facility] Comment on above: Performed By: #### A NARF #### [facility] [address] [place] [address] CHEST WO CONon [...] incidental findings, as described above. Normal [facility] CYCLIC CITRULLINATED PEPTIDE AB (CCP)on 03-09-2022 CCP Antibodies IgG/IgA 6 units Normal 0-19 [facility] Comment on above: Result Comment: Nega tive <20 Weak positive 20 - 39 Moderate positive 40 - 59 Strong positive >59 Performed By: #### B MANAGER LOCATION, HSTROPN, CMP #### [facility] [address] [place], [place] [address] Dr. Deborah Mohan IGG SUBCLASSES (1-4) AND TOT Kade 03-09-2022 IgG, Subclass 1 448 mg/dL Normal 248-810 [facility] Comment on above: Performed By: #### B MANAGER LOCATION, HSTROPN, CMP #### [facility] [address] [id number] Deborah Mohan IgG, Subclass 2 253 mg/dL Normal 130-555 [facility] Comment on above: Performed By: #### B MANAGER LOCATION, HSTROPN, CMP #### [facility] [address] [address] [address] Deborah Mohan IgG, Subclass 3 95 mg/dL Normal 15-102 [facility] Comment on above: Performed By: #### B MANAGER LOCATION, HSTROPN, CMP #### [facility] [address] [id number] [address] Deborah Mohan IgG, Subclass 4 10 mg/dL Normal 2-96 [facility] Comment on above: Performed By: #### B MANAGER LOCATION, HSTROPN, CMP #### [facility] [address] [place], [place] [address] Dr. Deborah Mohan Immunoglobulin G, Qn, Serum 658 mg/dL Normal 586-1602 [facility] Comment on above: Performed By: #### B MANAGER LOCATION, HSTROPN, CMP #### [facility] [address] [id number] [address] Deborah Mohan IMMUNOGLOBULIN E, TOTALon Immunoglobulin E, Total 5 IU/mL Critically low 6-495 [facility] Comment on above: Performed By: #### I GETOT ####[facility] [address] [place], [place] [address]Dr. Deborah Mohan MICHELL EIA W/REFLEX 5 BIOMARKER Son 03-08-2022 MICHELL Direct Negative Normal Negative [facility] Comment on above: Performed By: #### A NARF #### [facility] [address] [address] [address] Deborah Mohan ANGIOTENSION-CONVERTING ENZY ME (FRANCESCO)on 03-08-2022 FRANCESCO 32 U/L Normal 14-82 [facility] Comment on above: Performed By: #### A NGIOC ####[facility] [address] [address]DrAnkur Mohan ANTIGLOMERULAR BASEMENT MEMB ROMMEL ABSon 03-08-2022 Anti-GBM Antibodies <0.2 Normal 0.0-0.9 [facility] Comment on above: Performed By: #### A GBM #### [facility] [address] [address] [address] Deborah Mohan IMMUNOGLOBULIN IGA QUANTITIA VEon 03-06-2022 Immunoglobulin A, Qn, Serum 229 mg/dL Normal 87-352 [facility] Comment on above: Performed By: #### A NARF #### [facility] [address] [address] [address] Deborah Mohan IMMUNOGLOBULIN IGM QUANTITAT IVEon 03-06-2022 Immunoglobulin M, Qn, Serum 83 mg/dL Normal 26-217 [facility] Comment on above: Performed By: #### B MANAGER LOCATION, HSTROPN, CMP #### [facility] [address] [address] [address] Deborah Mohan RHEUMATOID FACTORon 03-06-20 22 RA Latex Turbid. 10.9 IU/mL Normal <14.0 [facility] Comment on above: Performed By: #### R F ####[facility] [address] [address]Dr. Deborah Mohan CREATININEon 03-05-2022 Creatinine [Mass/Vol] 1.38 mg/dL Critically high 0.55-1.02 [facility] Comment on above: Performed By: #### C MELVINA ####[facility] [address] [id number] Mohan EGFR-AF ENGLISH 46 mL/min/1.73m2 Critically low >=60 [facility] Comment on above: Performed By: #### C MELVINA ####[facility] [address] [place], [place] [address]KnAnkur Mohan EGFR-NON AF ENGLISH 38 mL/min/1.73m2 Critically low >=60 [facility] Comment on above: Performed By: #### C MELVINA ####[facility] [address] [place], [place] [address]Dr. Deborah Mohan SED RATE WESTERGRENon 2021 SED RATE 92 mm/hr Critically high <=30 [facility] Comment on above: Performed By: #### B MANAGER LOCATION, HSTROPN, CMP #### [facility] [address] [place], [place] [address] Dr. Deborah Mohan XR DEXA BONE DENSITYon [...] by: ROBERT CONDON Date: 2022-03-05 16:56 Normal [facility] XR CHEST 1 Von 03-01-2022 XR [...] by: ROBERT NOVAK Date: 2022-02-28 22:27 Normal [facility] XR KNEE LUANA 4V or >on [...] RAUDEL ESTRADA Date: 2022-01-29 11:09 Normal [facility] CBC AUTO DIFFon 11-29-2021 BASO # 0.1 103/ul Normal 0.0-0.1 [facility] Comment on above: Performed By: #### C BC ####[facility] [address] [address]Dr. Deborah Mohan Basophils/100 WBC (Bld) 0.8 % Normal 0.2-2.0 [facility] Comment on above: Performed By: #### C BC ####[facility] [address] [address]Dr. Deborah Mohan EO # 0.3 103/ul Normal 0.0-0.7 [facility] Comment on above: Performed By: #### C BC ####[facility] [address] [address]Dr. Deborah Mohan Eosinophils/100 WBC (Bld) 2.2 % Normal 0.9-7.0 [facility] Comment on above: Performed By: #### C BC ####[facility] [address] [place], [place] [address]Dr. Deborah Mohan Erythrocyte distribution width (RBC) [Ratio] 21.2 % Critically high 11.0-15.0 [facility] Comment on above: Performed By: #### C BC ####[facility] [address] [place], [place] [address]Dr. Deborah Mohan Hematocrit (Bld) [Volume fraction] 33.2 % Critically low 36.0-48.0 [facility] Comment on above: Performed By: #### C BC ####[facility] [address] [place] [phone]. Deborah Mohan Hemoglobin (Bld) [Mass/Vol] 10.3 g/dL Critically low 12.0-16.0 [facility] Comment on above: Performed By: #### C BC ####[facility] [address] [phone]. Deborah Mohan IG # 0.11 10e3/ul Critically high 0.00-0.03 [facility] Comment on above: Performed By: #### C BC ####[facility] [address] [place] [phone]. Deborah Mohan IG % 0.9 % Critically high 0.0-0.5 [facility] Comment on above: Performed By: #### C BC ####[facility] [address] [address]Dr. Deborah Mohan LYMPH # 2.2 103/ul Normal 1.2-3.8 [facility] Comment on above: Performed By: #### C BC ####[facility] [address] [place] [phone]. Deborah Mohan Lymphocytes/100 WBC (Bld) 18.5 % Critically low 20.5-60.0 [facility] Comment on above: Performed By: #### C BC ####[facility] [address] [address]Dr. Deborah Mohan MANUAL DIFF REQ NO Normal [facility] Comment on above: Performed By: #### C BC ####[facility] [address] [place] [phone]. Deborah Mohan MCH (RBC) [Entitic mass] 26.3 pg Critically low 26.7-34.0 [facility] Comment on above: Performed By: #### C BC ####[facility] [address] [place] [phone]. Deborah Mohan MCHC (RBC) [Mass/Vol] 31.0 g/dL Normal 29.9-35.2 [facility] Comment on above: Performed By: #### C BC ####[facility] [address] [place] [phone]. Deborah Mohan MCV (RBC) [Entitic vol] 84.9 fL Normal 81.0-99.0 [facility] Comment on above: Performed By: #### C BC ####[facility] [address] [place] [phone]. Deborah Mohan MONO # 0.6 103/ul Normal 0.3-0.8 [facility] Comment on above: Performed By: #### C BC ####[facility] [address] [place] [phone]. Deborah Mohan Monocytes/100 WBC (Bld) 5.3 % Normal 1.7-12.0 [facility] Comment on above: Performed By: #### C BC ####[facility] [address] [place], [place] [id number]. Deborah Mohan NEUT # 8.4 103/ul Critically high 1.4-6.5 [facility] Comment on above: Performed By: #### C BC ####[facility] [address] [place], [place] [id number]. Deborah Mohan Neutrophils/100 WBC (Bld) 72.3 % Normal 43.0-75.0 [facility] Comment on above: Performed By: #### C BC ####[facility] [address] [place], [place] [id number]. Deborah Mohan Platelet mean volume (Bld) [Entitic vol] 10.1 fL Normal 9.5-13.5 [facility] Comment on above: Performed By: #### C BC ####[facility] [address] [place] [phone]. Deborah Mohan PLT 351 103/ul Normal 150-450 [facility] Comment on above: Performed By: #### C BC ####[facility] [address] [place] [phone]. Deborah Mohan RBC 3.91 106/ul Critically low 4.20-5.40 [facility] Comment on above: Performed By: #### C BC ####[facility] [address] [place], [place] [address]BoAnkur Mohan WBC 11.6 103/ul Critically high 4.0-11.0 [facility] Comment on above: Performed By: #### C BC ####[facility] [address] [place], [place] [address]Lj. Deborah Mohan CTA CHEST WO W CONon [...] 2. Bilateral peripheral fibrosis and/or scarring with nlsl-km-gtffcljo groundglass densities. The groundglass densities are slightly decreased compared to the prior scan. 3. Old calcified granulomas in the chest and abdomen. 4. Large hiatal hernia. 5. Moderate diffuse osteopenia. Electronically authenticated by: BERNARDO DENNY Date: 2021-11-29 20:31 Normal [facility] D-DIMERon 11-29-2021 D-DIMER 1.14 mg/L FEU Critically high <=0.59 [facility] Comment on above: Performed By: #### A NARF #### [facility] [address] [place] [address] Dr. Deborah Mohan D-DIMER COMMENTS SEE BELOW Normal [facility] Comment on above: Result [...] hospitalization. Performed By: #### A NARF #### [facility] [address] [place] [address] Dr. Deborah Mohan PROF CHEM 8 (BAS METB)on Anion gap [Moles/Vol] 11.7 mmol/L Normal [facility] Comment on above: Performed By: #### B KYLEE HSTROPN #### [facility] [address] [place] [address] Dr. Deborah Mohan Calcium [Mass/Vol] 8.7 mg/dL Normal 8.5-10.1 [facility] Comment on above: Performed By: #### B KYLEE HSTROPN #### [facility] [address] [place] [address] Dr. Deborah Mohan Chloride [Moles/Vol] 107 mmol/L Normal 98-107 [facility] Comment on above: Performed By: #### B KYLEE HSTROPN #### [facility] [address] [place] [address] Dr. Deborah Mohan CO2 [Moles/Vol] 25.3 mmol/L Normal 21.0-32.0 [facility] Comment on above: Performed By: #### B KYLEE, HSTROPN #### [facility] [address] [address] [address] Deborah Mohan Creatinine [Mass/Vol] 0.98 mg/dL Normal 0.55-1.02 [facility] Comment on above: Performed By: #### B KYLEE, HSTROPN #### [facility] [address] [address] [address] Deborah Mohan EGFR-AF ENGLISH >60 Normal >=60 [facility] Comment on above: Performed By: #### B KYLEE, HSTROPN #### [facility] [address] [place] [address] Dr. Deborah Mohan EGFR-NON AF ENGLISH 56 mL/min/1.73m2 Critically low >=60 [facility] Comment on above: Performed By: #### B KYLEE, HSTROPN #### [facility] [address] [place] [address] Dr. Deborah Mohan Glucose [Mass/Vol] 105 mg/dL Normal 74-106 [facility] Comment on above: Performed By: #### B KYLEE, HSTROPN #### [facility] [address] [place] [address] Dr. Deborah Mohan Potassium [Moles/Vol] 4.0 mmol/L Normal 3.5-5.1 [facility] Comment on above: Performed By: #### B KYLEE, HSTROPN #### [facility] [address] [place] [address] Dr. Deborah Mohan Sodium [Moles/Vol] 140 mmol/L Normal 136-145 [facility] Comment on above: Performed By: #### B KYLEE, HSTROPN #### [facility] [address] [place] [address] Dr. Deborah Mohan Urea nitrogen [Mass/Vol] 21.0 mg/dL Critically high 7.0-18.0 [facility] Comment on above: Performed By: #### B KYLEE, HSTROPN #### [facility] [address] [place], [place] [address] Dr. Deborah Mohan Urea nitrogen/Creatinine [Mass ratio] 21.4 mg/mg Normal [facility] Comment on above: Performed By: #### B KYLEE, HSTROPN #### [facility] [address] [place] [address] [address] Deborah Mohan TROPONIN, HIGH SENSITIVITYon 11-29-2021 HSTROP 4.5 pg/mL Normal 4.0-51.3 [facility] Comment on above: Result Comment: CUT- OFF POINTS HAVE BEEN ESTABLISHED BASED ON THE FOURTH UNIVERSAL DEFINITIONS OF MYOCARDIAL INFARCTION. THE UPPER REFERENCE LIMIT (URL) OF TROPONIN, DEFINED THE 99TH PERCENTILE OF cTnI DISTRIBUTION IN A REFERENCE POPULATION, HAS BEEN CONFIRMED THE DECISION THRESHOLD FOR GA DIAGNOSIS. Performed By: #### H STROPN ####[facility] [address] [place], [place] [address]GdDr. Deborah Mohan HSTROP 6.0 pg/mL Normal 4.0-51.3 [facility] Comment on above: Result Comment: CUT- OFF POINTS HAVE BEEN ESTABLISHED BASED ON THE FOURTH UNIVERSAL DEFINITIONS OF MYOCARDIAL INFARCTION. THE UPPER REFERENCE LIMIT (URL) OF TROPONIN, DEFINED THE 99TH PERCENTILE OF cTnI DISTRIBUTION IN A REFERENCE POPULATION, HAS BEEN CONFIRMED THE DECISION THRESHOLD FOR GA DIAGNOSIS. Performed By: #### B KYLEE, HSTROPN #### [facility] [address] [place] [address] [address] Deborah Mohan XR CHEST 1 Von [...] KANDY BARRY Date: 2021-11-29 19:20 Normal [facility] XR LSPINE W_OBLS AND FLEX_EX [...] by: RAUDEL ESTRADA Date: 2021-11-12 07:56 Normal [facility] CALCIUMon 11-11-2021 Calcium [Mass/Vol] 9.0 mg/dL Normal 8.5-10.1 [facility] Comment on above: Performed By: #### A NARF #### [facility] [address] [place] [address] [address] Deborah Mohan CREATININEon 11-11-2021 Creatinine [Mass/Vol] 1.47 mg/dL Critically high 0.55-1.02 [facility] Comment on above: Performed By: #### A NARF #### [facility] [address] [place] [address] [address] Deborah Mohan EGFR-AF ENGLISH 43 mL/min/1.73m2 Critically low >=60 [facility] Comment on above: Performed By: #### A NARF #### [facility] [address] [place] [address] [address] Deborah Mohan EGFR-NON AF ENGLISH 35 mL/min/1.73m2 Critically low >=60 [facility] Comment on above: Performed By: #### A NARF #### [facility] [address] [place] [address] Dr. Deborah Mohan Vital Signs Date Time Vital Sign Value Performing Clinician Faci lity 03-20-2024 14:57-0400 Blood Pressure Location Anderson SHASHA [facility] [place] 03-20-2024 14:57-0400 Diastolic blood pressure 82 mm[Hg] Anderson NILL [facility] [place] 03-20-2024 14:57-0400 Heart rate 70 /min Anderson NILL [facility] [place] 03-20-2024 14:57-0400 Respiratory rate 16 /min Anderson NILL [facility] [place] 03-20-2024 14:57-0400 Systolic blood pressure 126 mm[Hg] Anderson NILL [facility] [place] Encounters Encounter Date Encounter Type Care Provider Facility Start: 04-25-2024 End: 04-25-2024 ambulatory Anderson Wiley RICHL Facility:CD:[id number] Start: 03-20-2024 End: 03-20-2024 ambulatory Luisito Townsend Facility: [place] Start: 03-20-2024 End: 03-20-2024 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 procedure Anderson VLILANUEVAL [facility] [place] Start: 02-10-2024 ambulatory Luisito Hoy Facility:[facility] Start: 11-28-2023 End: 11-28-2023 ambulatory [facility] Start: 10-18-2023 End: 10-18-2023 ambulatory [facility] Start: 08-01-2023 End: 08-02-2023 ambulatory Gabriella Woodruff [...] End: 05-08-2022 ambulatory Clarita Nena Facility:[facility] Start: 05-08-2022 End: 05-08-2022 ambulatory [facility] Clarita Nena Work Phone: [facility] Work Phone: Start: 05-08-2022 End: 05-08-2022 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 procedure [facility] AUTHOR-C Clarita Nena Work Phone: [facility] Start: 04-08-2022 End: [...] 04-01-2018 Emergency department patient visit BRANDON RUSSELL [facility] Start: 12-11-2017 End: 12-11-2017 Emergency department patient visit ROBERT HURLEY Facility:[facility] Procedures Date Procedure Procedure Detail Performing Clinician Start: 05-08-2022 Plain X-ray of left wrist [facility]-C Clarita Blakeault Work Phone: Start: 05-08-2022 X-ray of left ankle [facility] -C Clarita Nena Work Phone: Start: 04-01-2018 [...] Date Payer Category Payer Unknown 2022 Medicare [id number] 2022 Self-pay 1959 Unknown [id number] 1953 Unknown [id number] 2.16.84 0.1.428732.3.579.2.593 1953 Unknown [id number] 2.16.84 0.1.870148.3.579.2.593 1953 Unknown [id number] 2.16.84 0.1.860413.3.579.2.593 1953 Unknown [id number] 2.16.84 0.1.431089.3.579.2.593 1953 Unknown [id number] 2.16.84 0.1.167852.3.579.2.593 1953 Unknown [id number] 2.16.84 0.1.400543.3.579.2.593 1953 Unknown [id number] 2.16.84 0.1.879794.3.579.2.593 1953 Unknown [id number] 2.16.84 0.1.808282.3.579.2.593 1953 Unknown [id number] 2.16.84 0.1.840515.3.579.2.593 1953 Unknown [id number] 2.16.84 0.1.996232.3.579.2.593 1953 Unknown [id number] 2.16.84 0.1.174086.3.579.2.593 1953 Unknown [id number] 2.16.84 0.1.508494.3.579.2.593 1953 Unknown [id number] 2.16.84 0.1.524188.3.579.2.593 1953 Unknown [id number] 2.16.84 0.1.121702.3.579.2.593 1953 Unknown [id number] 2.16.84 0.1.522265.3.579.2.593 1953 Unknown [id number] 2.16.84 0.1.161003.3.579.2.593 1953 Unknown [id number] 2.16.84 0.1.219216.3.579.2.593 1953 Unknown [id number] 2.16.84 0.1.841762.3.579.2.593 1953 Unknown [id number] 2.16.84 0.1.081017.3.579.2.593 1953 Unknown [id number] 2.16.84 0.1.442718.3.579.2.593 1953 Unknown [id number] 2.16.84 0.1.780495.3.579.2.593 1953 Unknown [id number] 2.16.84 0.1.723989.3.579.2.593 1953 Unknown [id number] 2.16. 840.1.217319.3.579.2.196 1953 Unknown [id number] 2.16.8 40.1.831904.3.579.2.727 1953 Unknown [id number] 2.16.8 40.1.614102.3.579.2.727 Medicare [id number] Unknown [facility] [id number] Unknown [employer]/BS [id number] Unknown [id number] 2.16.8 40.1.091345.3.579.2.531 Social History Date Type Detail [facility] Work Phone: Start: 1955 Sex Assigned At Female [facility] Start: 03-20-2024 Tobacco smoking status Ex-smoker (fi nding) [facility] Tobacco smoking status Never [facility] Sex Assigned At Female [facility] [place] [facility] Functional Status Date Assessment Result Facility 03-20-2024 Functional Status N/A [facility] Clinical Notes 11-05-2021 to 03-20-2024 Note [...] 1 tab(s), Or (more content not included)... [facility] Comment on above: Result Comment: Elec tronically Signed By: SHASHA GRANT, Anderson Serrano.nigel\Date and Time Signed: 03/20/24 16:53 EDT 11-28-2023 Note [facility] Cardiology Clinic Note Chief Complaint: [...] mouth in the morning., Disp: , Rfl: yvokezaajl-jtgjfaeofgnes-tkha 50-325-40 mg tablet, Take 1 tablet by [...] sinus rhythm Echocar (more content not included)... [facility] 10-18-2023 Note [facility] Cardiology Clinic Note Chief Complaint: New patient here to establish care. Ref from Dr. Townsend for abnormal EKG. She also wore 7 day Holter monitor, and says she did not work while wearing this. She works at [employer] and says it's very fast paced. States she drinks a 5 Hour [employer] shot almost every day. She was admitted to [facility] for migraine recently and was found to have abnormal EKG. Recently has noticed a twinge of chest pain. C/o DAI, palpitations, and lightheadedness. HPI: Mary Vick is a 68 y.o. female With a history of hypertension and hypothyroidism who presents due to an abnormal Holter monitor She was admitted to the [facility] for migraine; a monitor revealed [...] Plan: Routine labs (more content not included)... [facility] 07-08-2022 Note CONSULTATION PROCEDURE DATE: 07/08/2022 [...] in the clinic in three months. [facility] 06-24-2022 Note CONSULTATION CONSULTATION DATE: [...] at a time, as she works at [employer]. Current medications include Percocet 5/325 daily, diclofenac [...] pending approval for her knee injections. [facility] 04-08-2022 Note CONSULTATION CONSULTATION DATE: [...] three months' time unless otherwise indicated. [facility] 03-09-2022 Note CONSULTATION CONSULTATION DATE: [...] to proceed. CC: Natividad Silva CNP [facility] 01-28-2022 Note CONSULTATION CONSULTATION DATE: [...] and re-evaluation of her bursa injection. [facility] 01-28-2022 Note CONSULTATION PROCEDURE DATE: [...] be followed up in the clinic. [facility] 11-12-2021 Note PROCEDURE: XR HIPS [...] by: RAUDEL ESTRADA Date: 2021-11-12 07:50 [facility] 11-05-2021 Note CONSULTATION PROCEDURE DATE:11/05/2021 [...] will be followed up in the office. [facility] Signed and Approved by: JOEL RAMON . 11/18/2021 16:24:00 [facility] 11-05-2021 Note CONSULTATION CONSULTATION DATE: [...] time, was working half a day at [employer] and since then has increased to full [...] in three months' time unless otherwise indicated. [facility] Signed and Approved by: JOEL RAMON . 11/18/2021 16:24:00 [facility] Evaluation + Plan note No data available for this section [facility] Evaluation note No assessment inform ation available [facility] Work Phone: Hospital Discharge instructions No data available for this section [facility] Progress note No data available for this section [facility] Summary Purpose Family History No Family History [...] section and content) DATE CREATED AUTHOR 12/21/2017 [facility] DATE CREATED AUTHOR AUTHOR'S ORGANIZ ATION 05/01/2018 [facility] DATE CREATED AUTHOR AUTHOR'S ORGANIZ ATION 05/17/2022 [facility] DATE CREATED AUTHOR AUTHOR'S ORGANIZ ATION 10/06/2022 [facility] DATE CREATED AUTHOR AUTHOR'S ORGANIZ ATION 08/03/2023 [facility] DATE CREATED AUTHOR AUTHOR'S ORGANIZ ATION 11/28/2023 [facility] DATE CREATED AUTHOR AUTHOR'S ORGANIZ ATION 05/03/2024 [facility] [place] Care Teams (unrecognized sec tion and [...] BE BASED ON THE PRIMARY CLINICAL RECORDS. [facility] [employer] [facility]. provides no warranty or guarantee of the accuracy or completeness of information in this document.
== END 2024-09-10 09:00 | disposition home or self-care (01) ==
PROVIDERS: PCP Nurse Practitioner Family; Visit Provider Orthopaedic Surgery
DX: S52.612D Displaced fracture of left ulna styloid process, subsequent encounter for closed fracture with routine healing (principal); S52.572D Other intraarticular fracture of lower end of left radius, subsequent encounter for closed fracture with routine healing
CPT/HCPCS: 73110

== ENCOUNTER 2024-09-26 14:47 | Outpatient (OUT) | payer MEDICARE, SELFPAY ==
--- NOTE | 2024-09-26 15:21 | PM.CN ---
Consult Note: HPI Data of Consult Patient: known to practice within the last 3 years Requesting Physician: Shweta Crowley NP Primary Care Provider: POLO SILVA Consult Narrative Reason for consult: chronic pain Narrative: Emiliana Vick a pleasant 69 year old female presents for evaluation of chronic pain, hx of OA affecting numerous joints including bilateral knees as well as chronic neck and low back pain. Pt noticing over the last few months increased bilateral knee pain, prior bilateral knee injections provided >50% improvement for 6 months but have since worn off. denies recent falls/injury. currently utilizing tylenol, diclofenac, percocet PRN. NEYMAR 47%. pt has failed to benefit from > 6 weeks of provider guided HEP and historically PT. cc:: CC: Shweta Crowley NP Review of Systems ROS Status of ROS 10 or more systems reviewed and unremarkable except as noted in history and below Musculoskeletal Reports: back pain and joint pain [facility] Medical History (Updated 09/26/24 @ 15:24 by Shweta Crowley NP) Syncopal episodes ?R55 - Syncope and collapse (ICD-10) Pneumonia ?J18.9 - Pneumonia, unspecified organism (ICD-10) Restless leg ?G25.81 - Restless legs syndrome (ICD-10) Dyspnea on exertion ?R06.09 - Other forms of dyspnea (ICD-10) Bilateral pulmonary contusion ?S27.322A - Contusion of lung, bilateral, initial encounter (ICD-10) Closed rib fracture ?S22.39XA - Fracture of one rib, unspecified side, initial encounter for closed fracture (ICD-10) Fall ?W19.XXXA - Unspecified fall, initial encounter (ICD-10) Chin contusion ?S00.83XA - Contusion of other part of head, initial encounter (ICD-10) Laceration of lip ?S01.511A - Laceration without foreign body of lip, initial encounter (ICD-10) Fracture of wrist ?S62.109A - Fracture of unspecified carpal bone, unspecified wrist, initial encounter for closed fracture (ICD-10) Macular degeneration ?H35.30 - Unspecified macular degeneration (ICD-10) Seasonal allergies ?J30.2 - Other seasonal allergic rhinitis (ICD-10) Anemia ?D64.9 - Anemia, unspecified (ICD-10) Lumbar radiculopathy ?M54.16 - Radiculopathy, lumbar region (ICD-10) Muscle spasm ?M62.838 - Other muscle spasm (ICD-10) Lumbar spondylosis ?M47.816 - Spondylosis without myelopathy or radiculopathy, lumbar region (ICD-10) Thoracic spondylosis ?M47.814 - Spondylosis without myelopathy or radiculopathy, thoracic region (ICD-10) Bilateral sacroiliitis ?M46.1 - Sacroiliitis, not elsewhere classified (ICD-10) Chronic, continuous use of opioids ?F11.90 - Opioid use, unspecified, uncomplicated (ICD-10) Greater trochanteric bursitis of both hips ?M70.61 - Trochanteric bursitis, right hip (ICD-10) ?M70.62 - Trochanteric bursitis, left hip (ICD-10) Encounter for long-term opiate analgesic use ?Z79.891 - 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 [employer] (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) use of opiate analgesic (ICD-10) Bilateral primary osteoarthritis of knee ?M17.0 - Bilateral primary osteoarthritis of knee (ICD-10) Acute opioid intoxication ?F11.929 - Opioid use, unspecified with intoxication, unspecified (ICD-10) Tubal ligation evaluation ?Z01.818 - Encounter for other preprocedural examination (ICD-10) Colonoscopy planned Headache, migraine ?G43.909 - Migraine, unspecified, not intractable, without status migrainosus (ICD-10) SVT (supraventricular tachycardia) ?I47.10 - Supraventricular tachycardia, unspecified (ICD-10) Screening for colorectal cancer ?Z12.11 - Encounter for screening for malignant neoplasm of colon (ICD-10) ?Z12.12 - Encounter for screening for malignant neoplasm of rectum (ICD-10) COPD (chronic obstructive pulmonary disease) ?J44.9 - Chronic obstructive pulmonary disease, unspecified (ICD-10) Migraine ?G43.909 - Migraine, unspecified, not intractable, without status migrainosus (ICD-10) Loud snoring ?R06.83 - Snoring (ICD-10) Osteoarthritis ?M19.90 - Unspecified osteoarthritis, unspecified site (ICD-10) Neck pain ?M54.2 - Cervicalgia (ICD-10) Bipolar 1 disorder ?F31.9 - Bipolar disorder, unspecified (ICD-10) Hearing deficit ?H91.90 - Unspecified hearing loss, unspecified ear (ICD-10) Anxiety ?F41.9 - Anxiety disorder, unspecified (ICD-10) Acid reflux ?K21.9 - Gastro-esophageal reflux disease without esophagitis (ICD-10) Obesity ?E66.9 - Obesity, unspecified (ICD-10) Hypothyroid ?E03.9 - Hypothyroidism, unspecified (ICD-10) Pulmonary hypertension ?I27.20 - Pulmonary hypertension, unspecified (ICD-10) Sleep apnea ?G47.30 - Sleep apnea, unspecified (ICD-10) High cholesterol ?E78.00 - Pure hypercholesterolemia, unspecified (ICD-10) Hypertension ?I10 - Essential (primary) hypertension (ICD-10) Surgical History History of colonoscopy ?Z98.890 - Other specified postprocedural states (ICD-10) H/O bilateral salpingo-oophorectomy ?Z90.79 - Acquired absence of other genital organ(s) (ICD-10) ?Z90.722 - Acquired absence of ovaries, bilateral (ICD-10) H/O dilation and curettage ?Z98.890 - Other specified postprocedural states (ICD-10) Cataract extraction status ?Z98.49 - Cataract extraction status, unspecified eye (ICD-10) H/O blepharoplasty ?Z98.890 - Other specified postprocedural states (ICD-10) History of mandibular surgery ?Z98.890 - Other specified postprocedural states (ICD-10) Hx of tubal ligation ?Z98.51 - Tubal ligation status (ICD-10) History of appendectomy ?Z90.49 - Acquired absence of other specified parts of digestive tract (ICD-10) History of hysterectomy ?Z90.710 - Acquired absence of both cervix and uterus (ICD-10) Family History Mother Family history of cancer Sister Family history of cancer Other Delayed recovery from anesthesia Family history of breast cancer Family history of lung cancer Social History Within the past year, how often did you have a drink containing alcohol: never Score interpretation: A score less than 3 is consistent with normal alcohol consumption. Smoking status: Former smoker Non-prescribed substance use: denies use Previous occupational history: [employer] Highest level of school completed/degree received: 11th grade Are you now , , , , never or living with a partner: In a typical week, how many times do you talk on the telephone with family, friends, or neighbors: 3 or more times per week How often do you get together with friends or relatives: 3 or more times per week How often do you attend advent or voodoo services: 4 or more times per year Do you belong to any clubs or organizations such as advent groups unions, [employer] or athletic groups, or school groups: no Total score: 2 Score interpretation: A score of greater than or equal to 2 indicates the lowest level of social isolation. Little interest or pleasure in doing things: not at all Feeling down, depressed, or hopeless: not at all Feel stressed/tense/nervous/anxious/difficulty sleeping: not at all Do you think of yourself as: straight/heterosexual Gender Identity: female Meds Home Medications and Allergies Home Medications ?Medication ?Instructions ?Recorded ?Confirmed ?Type albuterol sulfate 90 mcg/actuation 2 inh inhalation Q6H PRN shortness 10/21/22 06/17/24 History breath activated powder inhaler of breath or wheezing aripiprazole 30 mg tablet (Abilify) 30 mg PO QDAY 10/21/22 06/17/24 History diclofenac sodium 50 mg 50 mg PO BID 10/21/22 06/17/24 History tablet,delayed release ropinirole 1 mg tablet 1 mg PO QDAY PRN restless leg(s) 10/21/22 06/17/24 History levothyroxine 50 mcg tablet 50 mcg PO QDAY #30 tabs 09/17/23 06/17/24 Rx (Euthyrox) ferrous sulfate 325 mg (65 mg 325 mg PO DAILY 04/12/24 06/17/24 History iron) tablet (Holly-Time) fluticasone fur. 100 mcg-umeclid 1 inh inhalation DAILY 04/12/24 06/17/24 History 62.5 mcg-vilant 25 mcg inhalat.powder (Trelegy Ellipta) magnesium 250 mg tablet 250 mg PO DAILY 04/12/24 06/17/24 History vitamins A,C,A-lvoy-lkspbn 4,296 1 cap PO DAILY 04/12/24 06/17/24 History mcg-226 mg-90 mg capsule (PreserVision AREDS) amitriptyline 50 mg tablet 50 mg PO .qhs 06/06/24 06/17/24 History baclofen 5 mg tablet 5 mg PO QDAY PRN IF NEEDED FOR 06/06/24 06/17/24 History SKELETAL MUSCULAR PAIN fluoxetine 20 mg capsule 80 mg PO .QD 06/06/24 06/17/24 History liothyronine 5 mcg tablet 5 mcg PO .QD 06/06/24 06/17/24 History lisinopril 40 mg tablet 40 mg PO .QD 06/06/24 06/17/24 History omeprazole 20 mg capsule,delayed 20 mg PO BID 06/06/24 06/17/24 History release oxycodone-acetaminophen 5 mg-325 1 tab PO Q6H PRN pain 7 days #28 06/07/24 06/17/24 Rx mg tablet tabs potassium 99 mg tablet mg PO DAILY 06/08/24 History vitamin B complex 1 tab PO DAILY 06/08/24 06/17/24 History oxycodone-acetaminophen 5 mg-325 1 tab PO Q4H PRN pain 7 days #40 06/11/24 Rx mg tablet (Percocet) tabs oxycodone-acetaminophen 5 mg-325 1 tab PO DAILY PRN pain #30 tabs 06/28/24 Rx mg tablet (Percocet) oxycodone-acetaminophen 5 mg-325 1 tab PO DAILY PRN pain #30 tabs 07/26/24 Rx mg tablet (Percocet) oxycodone-acetaminophen 5 mg-325 1 tab PO DAILY PRN pain #30 tabs 09/03/24 Rx mg tablet (Percocet) oxycodone-acetaminophen 5 mg-325 1 tab PO DAILY PRN pain #30 tabs 09/26/24 Rx mg tablet (Percocet) Allergies Allergy/AdvReac Type Severity Reaction Status Date / Time sumatriptan (From Imitrex) Allergy Severe Palpitation Verified 06/17/24 10:33 s Exam Constitutional Documenting provider has reviewed patient's vital signs: yes Common normals: no apparent distress, oriented x3, healthy appearing, alert and well nourished General appearance: cooperative HENMT Common normals: normocephalic, hearing grossly normal bilaterally and moist oral mucous membranes Head and scalp: normocephalic Eye Common normals: PERRL Pupil: PERRL Neck & C-Spine Common normals: full ROM General: normal visual inspection Chest Common normals: inspection of chest normal Respiratory Common normals: normal respiratory effort, no retractions and no use of accessory muscles Back & Pelvis Lumbar spine/lower back: ROM limited, pain with ROM and lumbar spinal tenderness Extremity Right lower extremity: knee joint Left lower extremity: knee joint Other: bilateral knees moderate crepitus, pain with medial and lateral stress testing, no instability noted. moderate edema without redness or hot to touch. Neuro Common normals: oriented x3 Sensorium/orientation: alert Psych Common normals: mental status grossly normal, thought process normal, cooperative, affect normal, speech normal and activity/motor behavior normal Speech: normal speech Thought process: normal thought process Results Additional Findings Additional findings: If on a controlled substance or opioids, I have checked an [place] report on this patient and there are no aberrancies noted in the prescribing history.??If on a controlled substance or opioid a drug screen was completed and reviewed within the last year, and if there has not been a drug screen completed we ordered one today to monitor higher risk, state monitored pain medication use. As part of providing excellent, safe, comprehensive care, the following was completed at our patient's visit: 1. A medication reconciliation and review to ensure accurate knowledge of current/active medications, including asking our patients to inform us about any [id number] medications or herbal remedies/nutritional supplements/alternative remedies. 2. A review to specifically ensure our patients have had annual screening for screening for depression, screening for tobacco use, and screening for unhealthy alcohol use. For concerning screenings had a discussion with the patient, provided patient education, and recommended follow-up with primary care provider when appropriate. If patient noted with a risk of falling, they received education on strength, gait, and balance training to prevent future risk of falling. Portions of this note may have been carried over from the previous visit and updated as appropriate. Please note this office utilizes paper charting in addition to the electronic medical record. A list of current medications, vitals, and PMH is available there as the clinical staff outside of myself do not have access to [employer] charting during the clinic day operations. As part of providing quality comprehensive care the current medications, vitals, and PMH were reviewed in the paper chart. Assessment and Plan Assessment and Plan (1) Bilateral primary osteoarthritis of knee: (2) Chronic prescription opiate use: (3) Lumbar spondylosis: (4) Thoracic spondylosis: (5) Muscle spasm: Plan 69 year old female presents for evaluation of chronic pain. as noted above pt having moderate to severe bilateral knee pain and is interested in repeat joint injections. will proceed with bilateral knee injections for OA. continue current medications. continue HEP as tolerated. f/u 2 weeks after injection
== END 2024-09-26 14:48 | disposition home or self-care (01) ==
PROVIDERS: PCP Nurse Practitioner Family; Visit Provider Nurse Practitioner
DX: M17.0 Bilateral primary osteoarthritis of knee (principal); Z79.891 Long term (current) use of opiate analgesic; M47.816 Spondylosis without myelopathy or radiculopathy, lumbar region; M47.814 Spondylosis without myelopathy or radiculopathy, thoracic region; M62.838 Other muscle spasm
CPT/HCPCS: G0463

== ENCOUNTER 2024-10-22 13:23 | Outpatient (OUT) | payer MEDICARE, SELFPAY ==
--- OUTSIDE RECORDS SUMMARY | 2024-10-22 13:46 | XMS_ITS | CCD ---
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 Antibodies <0.2 Normal 0.0-0.9 [facility] Comment on above: Result Comment: Perf ormed at: BN Performed By: #### B BUCKET TURNER, HSTROPN, CMP #### [facility] [address] [address] [address] Deborah Mohan Atypical pANCA 1:160 Critically high Neg:<1:20 [facility] Comment on above: Result Comment: The atypical pANCA pattern has been observed in a significant percentage of patients with ulcerative colitis, primary sclerosing cholangitis and autoimmune hepatitis. Performed at: CB Performed By: #### B BUCKET TURNER, HSTROPN, CMP #### [facility] [address] [address] [address] Deborah Mohan Cytoplasmic (C-ANCA) <1:20 Normal Neg:<1:20 [facility] Comment on above: Result Comment: Perf ormed at: CB Performed By: #### B PHILLIP JONES CMP #### [facility] [address] [address] [address] Deborah Mohan Perinuclear (P-ANCA) <1:20 Normal Neg:<1:20 [facility] Comment on above: Result Comment: The presence [...] By: #### B PHILLIP JONES CMP #### [facility] [address] [place] [address] Dr. Deborah Mohan ANTISCLERODERMA ABon 022 Antiscleroderma-70 Antibodies <0.2 Normal 0.0-0.9 [facility] Comment on above: Performed By: #### A NARF #### [facility] [address] [place] [address] CHEST WO CONon [...] incidental findings, as described above. Normal [facility] CYCLIC CITRULLINATED PEPTIDE AB (CCP)on 03-09-2022 CCP Antibodies IgG/IgA 6 units Normal 0-19 [facility] Comment on above: Result Comment: Nega tive <20 Weak positive 20 - 39 Moderate positive 40 - 59 Strong positive >59 Performed By: #### B BUCKET TURNER, HSTROPN, CMP #### [facility] [address] [place], [place] [address] Dr. Deborah Mohan IGG SUBCLASSES (1-4) AND TOT Kade 03-09-2022 IgG, Subclass 1 448 mg/dL Normal 248-810 [facility] Comment on above: Performed By: #### B BUCKET TURNER, HSTROPN, CMP #### [facility] [id number] Deborah Mohan IgG, Subclass 2 253 mg/dL Normal 130-555 [facility] Comment on above: Performed By: #### B BUCKET TURNER, HSTROPN, CMP #### [facility] [address] [address] [address] Deborah Mohan IgG, Subclass 3 95 mg/dL Normal 15-102 [facility] Comment on above: Performed By: #### B BUCKET TURNER, HSTROPN, CMP #### [facility] [id number] Deborah Mohan IgG, Subclass 4 10 mg/dL Normal 2-96 [facility] Comment on above: Performed By: #### B BUCKET TURNER, HSTROPN, CMP #### [facility] [address] [place], [place] [address] Dr. Deborah Mohan Immunoglobulin G, Qn, Serum 658 mg/dL Normal 586-1602 [facility] Comment on above: Performed By: #### B BUCKET TURNER, HSTROPN, CMP #### [facility] [id number] Deborah Mohan IMMUNOGLOBULIN E, TOTALon Immunoglobulin E, Total 5 IU/mL Critically low 6-495 [facility] Comment on above: Performed By: #### I GETOT ####[facility] [address] [place], [place] [address]AyDr. Deborah Mohan MICHELL EIA W/REFLEX 5 BIOMARKER Son 03-08-2022 MICHELL Direct Negative Normal Negative [facility] Comment on above: Performed By: #### A NARF #### [facility] [address] [address] [address] Deborah Mohan ANGIOTENSION-CONVERTING ENZY ME (FRANCESCO)on 03-08-2022 FRANCESCO 32 U/L Normal 14-82 [facility] Comment on above: Performed By: #### A NGIOC ####[facility] [address] [place] [address]DrAnkur Mohan ANTIGLOMERULAR BASEMENT MEMB ROMMEL ABSon 03-08-2022 Anti-GBM Antibodies <0.2 Normal 0.0-0.9 [facility] Comment on above: Performed By: #### A GBM #### [facility] [address] [address] [address] Deborah Mohan IMMUNOGLOBULIN IGA QUANTITIA VEon 03-06-2022 Immunoglobulin A, Qn, Serum 229 mg/dL Normal 87-352 [facility] Comment on above: Performed By: #### A NARF #### [facility] [address] [address] [address] Deborah Mohan IMMUNOGLOBULIN IGM QUANTITAT IVEon 03-06-2022 Immunoglobulin M, Qn, Serum 83 mg/dL Normal 26-217 [facility] Comment on above: Performed By: #### B BUCKET TURNER, HSTROPN, CMP #### [facility] [address] [address] [address] Deborah Mohan RHEUMATOID FACTORon 03-06-20 22 RA Latex Turbid. 10.9 IU/mL Normal <14.0 [facility] Comment on above: Performed By: #### R F ####[facility] [address] [place] [address]Dr. Deborah Mohan CREATININEon 03-05-2022 Creatinine [Mass/Vol] 1.38 mg/dL Critically high 0.55-1.02 [facility] Comment on above: Performed By: #### C MELVINA ####[facility] [address] [place] [id number] Mohan EGFR-AF NEPALESE 46 mL/min/1.73m2 Critically low >=60 [facility] Comment on above: Performed By: #### C MELVINA ####[facility] [address] [place], [place] [address]FmAnkur Mohan EGFR-NON AF NEPALESE 38 mL/min/1.73m2 Critically low >=60 [facility] Comment on above: Performed By: #### C MELVINA ####[facility] [address] [place], [place] [address]HlDr. Deborah Mohan SED RATE WESTERGRENon 2021 SED RATE 92 mm/hr Critically high <=30 [facility] Comment on above: Performed By: #### B BUCKET TURNER, HSTROPN, CMP #### [facility] [address] [place], [place] [address] Dr. Deborah Mohan XR DEXA BONE DENSITYon [...] by: ROBERT CONDON Date: 2022-03-05 16:56 Normal [facility] XR CHEST 1 Von 03-01-2022 XR [...] by: ROBERT NOVAK Date: 2022-02-28 22:27 Normal [facility] XR KNEE LUANA 4V or >on [...] RAUDEL ESTRADA Date: 2022-01-29 11:09 Normal [facility] CBC AUTO DIFFon 11-29-2021 BASO # 0.1 103/ul Normal 0.0-0.1 [facility] Comment on above: Performed By: #### C BC ####[facility] [address] [place] [address]Dr. Deborah Mohan Basophils/100 WBC (Bld) 0.8 % Normal 0.2-2.0 [facility] Comment on above: Performed By: #### C BC ####[facility] [address] [place] [address]Dr. Deborah Mohan EO # 0.3 103/ul Normal 0.0-0.7 [facility] Comment on above: Performed By: #### C BC ####[facility] [address] [place] [address]Dr. Deborah Mohan Eosinophils/100 WBC (Bld) 2.2 % Normal 0.9-7.0 [facility] Comment on above: Performed By: #### C BC ####[facility] [address] [place], [place] [address]Dr. Deborah Mohan Erythrocyte distribution width (RBC) [Ratio] 21.2 % Critically high 11.0-15.0 [facility] Comment on above: Performed By: #### C BC ####[facility] [address] [place], [place] [address]Dr. Deborah Mohan Hematocrit (Bld) [Volume fraction] 33.2 % Critically low 36.0-48.0 [facility] Comment on above: Performed By: #### C BC ####[facility] [address] [place] [id number]. Deborah Mohan Hemoglobin (Bld) [Mass/Vol] 10.3 g/dL Critically low 12.0-16.0 [facility] Comment on above: Performed By: #### C BC ####[facility] [address] [place] [address]Dr. Deborah Mohan IG # 0.11 10e3/ul Critically high 0.00-0.03 [facility] Comment on above: Performed By: #### C BC ####[facility] [address] [place] [address]Dr. Deborah Mohan IG % 0.9 % Critically high 0.0-0.5 [facility] Comment on above: Performed By: #### C BC ####[facility] [address] [place] [address]Dr. Deborah Mohan LYMPH # 2.2 103/ul Normal 1.2-3.8 [facility] Comment on above: Performed By: #### C BC ####[facility] [address] [place] [id number]. Deborah Mohan Lymphocytes/100 WBC (Bld) 18.5 % Critically low 20.5-60.0 [facility] Comment on above: Performed By: #### C BC ####[facility] [address] [place] [address]Dr. Deborah Mohan MANUAL DIFF REQ NO Normal [facility] Comment on above: Performed By: #### C BC ####[facility] [address] [place] [id number]. Deborah Mohan MCH (RBC) [Entitic mass] 26.3 pg Critically low 26.7-34.0 [facility] Comment on above: Performed By: #### C BC ####[facility] [address] [place] [id number]. Deborah Mohan MCHC (RBC) [Mass/Vol] 31.0 g/dL Normal 29.9-35.2 [facility] Comment on above: Performed By: #### C BC ####[facility] [address] [place] [id number]. Deborah Mohan MCV (RBC) [Entitic vol] 84.9 fL Normal 81.0-99.0 [facility] Comment on above: Performed By: #### C BC ####[facility] [address] [place] [id number]. Deborah Mohan MONO # 0.6 103/ul Normal 0.3-0.8 [facility] Comment on above: Performed By: #### C BC ####[facility] [address] [place] [id number]. Deborah Mohan Monocytes/100 WBC (Bld) 5.3 % Normal 1.7-12.0 [facility] Comment on above: Performed By: #### C BC ####[facility] [address] [place], [place] [address]Dr. Deborah Mohan NEUT # 8.4 103/ul Critically high 1.4-6.5 [facility] Comment on above: Performed By: #### C BC ####[facility] [address] [place], [place] [address]Dr. Deborah Mohan Neutrophils/100 WBC (Bld) 72.3 % Normal 43.0-75.0 [facility] Comment on above: Performed By: #### C BC ####[facility] [address] [place], [place] [address]Dr. Deborah Mohan Platelet mean volume (Bld) [Entitic vol] 10.1 fL Normal 9.5-13.5 [facility] Comment on above: Performed By: #### C BC ####[facility] [address] [place] [id number]. Deborah Mohan PLT 351 103/ul Normal 150-450 [facility] Comment on above: Performed By: #### C BC ####[facility] [address] [place] [id number]. Deborah Mohan RBC 3.91 106/ul Critically low 4.20-5.40 [facility] Comment on above: Performed By: #### C BC ####[facility] [address] [place], [place] [address]OkAnkur Mohan WBC 11.6 103/ul Critically high 4.0-11.0 [facility] Comment on above: Performed By: #### C BC ####[facility] [address] [place], [place] [address]Vk. Deborah Mohan CTA CHEST WO W CONon [...] 2. Bilateral peripheral fibrosis and/or scarring with aboa-wa-xwtklawp groundglass densities. The groundglass densities are slightly decreased compared to the prior scan. 3. Old calcified granulomas in the chest and abdomen. 4. Large hiatal hernia. 5. Moderate diffuse osteopenia. Electronically authenticated by: BERNARDO DENNY Date: 2021-11-29 20:31 Normal [facility] D-DIMERon 11-29-2021 D-DIMER 1.14 mg/L FEU Critically high <=0.59 [facility] Comment on above: Performed By: #### A NARF #### [facility] [address] [place] [address] Dr. Deborah Mohan D-DIMER COMMENTS SEE BELOW Normal [facility] Comment on above: Result Comment: Incr eases [...] hospitalization. Performed By: #### A NARF #### [facility] [address] [place] [address] Dr. Deborah Mohan PROF CHEM 8 (BAS METB)on Anion gap [Moles/Vol] 11.7 mmol/L Normal [facility] Comment on above: Performed By: #### B KYLEE HSTROPN #### [facility] [address] [place] [address] Dr. Deborah Mohan Calcium [Mass/Vol] 8.7 mg/dL Normal 8.5-10.1 [facility] Comment on above: Performed By: #### B KYLEE HSTROPN #### [facility] [address] [place] [address] Dr. Deborah Mohan Chloride [Moles/Vol] 107 mmol/L Normal 98-107 [facility] Comment on above: Performed By: #### B KYLEE HSTROPN #### [facility] [address] [place] [address] Dr. Deborah Mohan CO2 [Moles/Vol] 25.3 mmol/L Normal 21.0-32.0 [facility] Comment on above: Performed By: #### B KYLEE, HSTROPN #### [facility] [address] [address] [address] Deborah Mohan Creatinine [Mass/Vol] 0.98 mg/dL Normal 0.55-1.02 [facility] Comment on above: Performed By: #### B KYLEE, HSTROPN #### [facility] [address] [address] [address] Deborah Mohan EGFR-AF NEPALESE >60 Normal >=60 [facility] Comment on above: Performed By: #### B KYLEE, HSTROPN #### [facility] [address] [place] [address] Dr. Deborah Mohan EGFR-NON AF NEPALESE 56 mL/min/1.73m2 Critically low >=60 [facility] Comment on above: Performed By: #### B KYLEE, HSTROPN #### [facility] [address] [place] [address] Dr. Deborah Mohan Glucose [Mass/Vol] 105 mg/dL Normal 74-106 [facility] Comment on above: Performed By: #### B KYLEE, HSTROPN #### [facility] [address] [place] [address] Dr. Deborah Mohan Potassium [Moles/Vol] 4.0 mmol/L Normal 3.5-5.1 [facility] Comment on above: Performed By: #### B KYLEE, HSTROPN #### [facility] [address] [place] [address] Dr. Deborah Mohan Sodium [Moles/Vol] 140 mmol/L Normal 136-145 [facility] Comment on above: Performed By: #### B KYLEE, HSTROPN #### [facility] [address] [place] [address] Dr. Deborah Mohan Urea nitrogen [Mass/Vol] 21.0 mg/dL Critically high 7.0-18.0 [facility] Comment on above: Performed By: #### B KYLEE, HSTROPN #### [facility] [address] [place], [place] [address] Dr. Deborah Mohan Urea nitrogen/Creatinine [Mass ratio] 21.4 mg/mg Normal [facility] Comment on above: Performed By: #### B KYLEE, HSTROPN #### [facility] [address] [address] [address] Deborah Mohan TROPONIN, HIGH SENSITIVITYon 11-29-2021 HSTROP 4.5 pg/mL Normal 4.0-51.3 [facility] Comment on above: Result Comment: CUT- OFF POINTS HAVE BEEN ESTABLISHED BASED ON THE FOURTH UNIVERSAL DEFINITIONS OF MYOCARDIAL INFARCTION. THE UPPER REFERENCE LIMIT (URL) OF TROPONIN, DEFINED THE 99TH PERCENTILE OF cTnI DISTRIBUTION IN A REFERENCE POPULATION, HAS BEEN CONFIRMED THE DECISION THRESHOLD FOR [place] DIAGNOSIS. Performed By: #### H STROPN ####[facility] [address] [place], [place] [address]NyDr. Deborah Mohan HSTROP 6.0 pg/mL Normal 4.0-51.3 [facility] Comment on above: Result Comment: CUT- OFF POINTS HAVE BEEN ESTABLISHED BASED ON THE FOURTH UNIVERSAL DEFINITIONS OF MYOCARDIAL INFARCTION. THE UPPER REFERENCE LIMIT (URL) OF TROPONIN, DEFINED THE 99TH PERCENTILE OF cTnI DISTRIBUTION IN A REFERENCE POPULATION, HAS BEEN CONFIRMED THE DECISION THRESHOLD FOR [place] DIAGNOSIS. Performed By: #### B KYLEE, HSTROPN #### [facility] [address] [address] [address] Deborah Mohan XR CHEST 1 Von [...] KANDY BARRY Date: 2021-11-29 19:20 Normal [facility] XR LSPINE W_OBLS AND FLEX_EX Ton 11-12-2021 [...] by: RAUDEL ESTRADA Date: 2021-11-12 07:56 Normal [facility] CALCIUMon 11-11-2021 Calcium [Mass/Vol] 9.0 mg/dL Normal 8.5-10.1 [facility] Comment on above: Performed By: #### A NARF #### [facility] [address] [address] [address] Deborah Mohan CREATININEon 11-11-2021 Creatinine [Mass/Vol] 1.47 mg/dL Critically high 0.55-1.02 [facility] Comment on above: Performed By: #### A NARF #### [facility] [address] [address] [address] Deborah oMhan EGFR-AF NEPALESE 43 mL/min/1.73m2 Critically low >=60 [facility] Comment on above: Performed By: #### A NARF #### [facility] [address] [address] [address] Deborah Mohan EGFR-NON AF NEPALESE 35 mL/min/1.73m2 Critically low >=60 [facility] Comment on above: Performed By: #### A NARF #### [facility] [address] [place] [address] Dr. Deborah Mohan Vital Signs Date Time Vital Sign Value Performing Clinician Faci lity 03-20-2024 14:57-0400 Blood Pressure Location Anderson SHASHA [facility] [place] 03-20-2024 14:57-0400 Diastolic blood pressure 82 mm[Hg] Anderson NILL [facility] [place] 03-20-2024 14:57-0400 Heart rate 70 /min Anderson NILL [facility] [place] 03-20-2024 14:57-0400 Respiratory rate 16 /min Anderson NILL [facility] [place] 03-20-2024 14:57-0400 Systolic blood pressure 126 mm[Hg] Anderson NILL [facility] [place] Encounters Encounter Date Encounter Type Care Provider Facility Start: 04-25-2024 End: 04-25-2024 ambulatory Anderson Wiley RICHL Facility:CD:[id number] Start: 03-20-2024 End: 03-20-2024 ambulatory Luisito Townsend Facility: [place] Start: 03-20-2024 End: 03-20-2024 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 procedure Anderson VILLANUEVAL [facility] [place] Start: 02-10-2024 ambulatory Luisito Hoy Facility:[facility] Start: 11-28-2023 End: 11-28-2023 ambulatory [facility] Start: 10-18-2023 End: 10-18-2023 ambulatory [facility] Start: 08-01-2023 End: 08-02-2023 ambulatory Gabriella [...] Start: 05-08-2022 End: 05-08-2022 ambulatory Clarita Nena Facility:[facility] Start: 05-08-2022 End: 05-08-2022 ambulatory PLEAT TAPER-C Clarita Nena Work Phone: [facility] Work Phone: Start: 05-08-2022 End: 05-08-2022 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 procedure PLEAT TAPER-C Clarita Nena Work Phone: [facility] Start: 04-08-2022 [...] department patient visit BRANDON RUSSELL [facility] Start: 12-11-2017 End: 12-11-2017 Emergency department patient visit ROBERT HURLEY Facility:[facility] Procedures Date Procedure Procedure Detail Performing Clinician Start: 05-08-2022 Plain X-ray of left wrist PLEAT TAPER-C Clarita Blakeault Work Phone: Start: 05-08-2022 X-ray of left ankle PLEAT TAPER -C Clarita Nena Work Phone: Start: 04-01-2018 [...] Date Payer Category Payer Unknown 2022 Medicare [id number] 2022 Self-pay 1959 Unknown [id number] 1955 Unknown [id number] 2.16.84 0.1.724698.3.579.2.593 1953 Unknown [id number] 2.16.84 0.1.853842.3.579.2.593 1953 Unknown [id number] 2.16.84 0.1.410746.3.579.2.593 1953 Unknown [id number] 2.16.84 0.1.591441.3.579.2.593 1953 Unknown [id number] 2.16.84 0.1.924787.3.579.2.593 1953 Unknown [id number] 2.16.84 0.1.377038.3.579.2.593 1953 Unknown [id number] 2.16.84 0.1.171194.3.579.2.593 1953 Unknown [id number] 2.16.84 0.1.072932.3.579.2.593 1953 Unknown [id number] 2.16.84 0.1.016806.3.579.2.593 1953 Unknown [id number] 2.16.84 0.1.035649.3.579.2.593 1953 Unknown [id number] 2.16.84 0.1.098300.3.579.2.593 1953 Unknown [id number] 2.16.84 0.1.024633.3.579.2.593 1953 Unknown [id number] 2.16.84 0.1.869119.3.579.2.593 1953 Unknown [id number] 2.16.84 0.1.457467.3.579.2.593 1953 Unknown [id number] 2.16.84 0.1.425219.3.579.2.593 1953 Unknown [id number] 2.16.84 0.1.718604.3.579.2.593 1953 Unknown [id number] 2.16.84 0.1.069964.3.579.2.593 1953 Unknown [id number] 2.16.84 0.1.349223.3.579.2.593 1953 Unknown [id number] 2.16.84 0.1.464244.3.579.2.593 1953 Unknown [id number] 2.16.84 0.1.065311.3.579.2.593 1953 Unknown [id number] 2.16.84 0.1.977298.3.579.2.593 1953 Unknown [id number] 2.16.84 0.1.822902.3.579.2.593 1953 Unknown [id number] 2.16. 840.1.066587.3.579.2.196 1953 Unknown [id number] 2.16.8 40.1.607558.3.579.2.727 1953 Unknown [id number] 2.16.8 40.1.890857.3.579.2.727 Medicare [id number] Unknown [facility] [id number] Unknown [employer] [id number] Unknown [id number] 2.16.8 40.1.267871.3.579.2.531 Social History Date Type Detail Facility [facility] if ever smoked [facility] Work Phone: Start: 1955 Sex Assigned At Female [facility] Start: 03-20-2024 Tobacco smoking status Ex-smoker (fi nding) [facility] Tobacco smoking status Never [facility] Sex Assigned At Female [facility] Functional Status Date Assessment Result Facility 03-20-2024 Functional Status N/A [facility] Clinical Notes 11-05-2021 to 03-20-2024 Note [...] 1 tab(s), Or (more content not included)... [facility] Comment on above: Result Comment: Elec tronically Signed By: SHASHA GRANT, Anderson [email or web address].[email or web address]\Date and Time Signed: 03/20/24 16:53 EDT 11-28-2023 Note [facility] Note Chief Complaint: Patient [...] mouth in the morning., Disp: , Rfl: zfmggbkcqh-osdsxpgrluqfi-nbia 50-325-40 mg tablet, Take 1 tablet by [...] sinus rhythm Echocar (more content not included)... [facility] 10-18-2023 Note [facility] Note Chief Complaint: New patient here to establish care. Ref from Dr. Townsend for abnormal EKG. She also wore 7 day Holter monitor, and says she did not work while wearing this. She works at [employer] and says it's very fast paced. States she drinks a 5 Hour [employer] shot almost every day. She was admitted to [facility] for migraine recently and was found to have abnormal EKG. Recently has noticed a twinge of chest pain. C/o DAI, palpitations, and lightheadedness. HPI: Mary Vick is a 68 y.o. female With a history of hypertension and hypothyroidism who presents due to an abnormal Holter monitor She was admitted to the [facility] for migraine; a monitor revealed both SVT [...] Plan: Routine labs (more content not included)... [facility] 07-08-2022 Note CONSULTATION PROCEDURE DATE: 07/08/2022 HISTORY [...] in the clinic in three months. [facility] 06-24-2022 Note CONSULTATION CONSULTATION DATE: 06/24/2022 HISTORY [...] at a time, as she works at [employer] Current medications include Percocet 5/325 daily, diclofenac [...] pending approval for her knee injections. [facility] 04-08-2022 Note CONSULTATION CONSULTATION DATE: 04/08/2022 HISTORY [...] three months' time unless otherwise indicated. [facility] 03-09-2022 Note CONSULTATION CONSULTATION DATE: 03/09/2022 CHIEF [...] to proceed. CC: Natividad Silva CNP [facility] 01-28-2022 Note CONSULTATION CONSULTATION DATE: 01/30/2022 HISTORY [...] and re-evaluation of her bursa injection. [facility] 01-28-2022 Note CONSULTATION PROCEDURE DATE: 01/30/2022 PREOPERATIVE [...] be followed up in the clinic. [facility] 11-12-2021 Note PROCEDURE: XR HIPS B IL [...] by: RAUDEL ESTRADA Date: 2021-11-12 07:50 [facility] 11-05-2021 Note CONSULTATION PROCEDURE DATE:11/05/2021 PREOPERATIVE DIAGNOSIS: [...] up in the office. [facility] Signed and Approved by: JOEL RAMON . 11/18/2021 16:24:00 [facility] 11-05-2021 Note CONSULTATION CONSULTATION DATE: 11/05/2021 HISTORY [...] time, was working half a day at [employer] and since then has increased to full [...] time unless otherwise indicated. [facility] Signed and Approved by: JOEL RAMON . 11/18/2021 16:24:00 [facility] Evaluation + Plan note No data available for this section [facility] Evaluation note No assessment inform ation available [facility] Work Phone: Hospital Discharge instructions No data available for this section [facility] Progress note No data available for this section [facility] Summary Purpose Family History No Family [...] section and content) DATE CREATED AUTHOR 12/21/2017 [facility] DATE CREATED AUTHOR AUTHOR'S ORGANIZ ATION 05/01/2018 [facility] DATE CREATED AUTHOR AUTHOR'S ORGANIZ ATION 05/17/2022 [facility] DATE CREATED AUTHOR AUTHOR'S ORGANIZ ATION 10/06/2022 [facility] DATE CREATED AUTHOR AUTHOR'S ORGANIZ ATION 08/03/2023 [facility] DATE CREATED AUTHOR AUTHOR'S ORGANIZ ATION 11/28/2023 [facility] DATE CREATED AUTHOR AUTHOR'S ORGANIZ ATION 05/03/2024 [facility] Care Teams (unrecognized sec tion and content) [...] BE BASED ON THE PRIMARY CLINICAL RECORDS. [facility] [employer] [facility]. provides no warranty or guarantee of the accuracy or completeness of information in this document.
--- NOTE | 2024-10-22 14:45 | PM.CN ---
Consult Note: HPI Data of Consult Patient: known to practice within the last 3 years Consult date: 10/22/24 Requesting Physician: Gabriella Woodruff MD Primary Care Provider: POLO SILVA Consult Narrative Reason for consult: bilateral shoulder pain Narrative: 69yof who presents for assessment. previously had been having right shoulder pain, so was scheduled for right shoulder injection today. however, after last office visit, patient endorsed increasing left shoulder pain. xr of bilateral shoulders was subsequently ordered. this xr showed rotator cuff tendinopathy and osteoarthritis in right shoulder, as well as left shoulder osteoarthritis. has continued in a series of provider directed home exercises >6 weeks, without benefit. uses pain medicine as needed. cc:: CC: Gabriella Woodruff MD Review of Systems ROS Status of ROS 10 or more systems reviewed and unremarkable except as noted in history and below [facility] Medical History Syncopal episodes ?R55 - Syncope and collapse (ICD-10) Pneumonia ?J18.9 - Pneumonia, unspecified organism (ICD-10) Restless leg ?G25.81 - Restless legs syndrome (ICD-10) Dyspnea on exertion ?R06.09 - Other forms of dyspnea (ICD-10) Bilateral pulmonary contusion ?S27.322A - Contusion of lung, bilateral, initial encounter (ICD-10) Closed rib fracture ?S22.39XA - Fracture of one rib, unspecified side, initial encounter for closed fracture (ICD-10) Fall ?W19.XXXA - Unspecified fall, initial encounter (ICD-10) Chin contusion ?S00.83XA - Contusion of other part of head, initial encounter (ICD-10) Laceration of lip ?S01.511A - Laceration without foreign body of lip, initial encounter (ICD-10) Fracture of wrist ?S62.109A - Fracture of unspecified carpal bone, unspecified wrist, initial encounter for closed fracture (ICD-10) Macular degeneration ?H35.30 - Unspecified macular degeneration (ICD-10) Seasonal allergies ?J30.2 - Other seasonal allergic rhinitis (ICD-10) Anemia ?D64.9 - Anemia, unspecified (ICD-10) Lumbar radiculopathy ?M54.16 - Radiculopathy, lumbar region (ICD-10) Muscle spasm ?M62.838 - Other muscle spasm (ICD-10) Lumbar spondylosis ?M47.816 - Spondylosis without myelopathy or radiculopathy, lumbar region (ICD-10) Thoracic spondylosis ?M47.814 - Spondylosis without myelopathy or radiculopathy, thoracic region (ICD-10) Bilateral sacroiliitis ?M46.1 - Sacroiliitis, not elsewhere classified (ICD-10) Chronic, continuous use of opioids ?F11.90 - Opioid use, unspecified, uncomplicated (ICD-10) Greater trochanteric bursitis of both hips ?M70.61 - Trochanteric bursitis, right hip (ICD-10) ?M70.62 - Trochanteric bursitis, left hip (ICD-10) Encounter for long-term opiate analgesic use ?Z79.891 - varying exceptionalities teacher (current) use of opiate analgesic (ICD-10) Bilateral primary osteoarthritis of knee ?M17.0 - Bilateral primary osteoarthritis of knee (ICD-10) Acute opioid intoxication ?F11.929 - Opioid use, unspecified with intoxication, unspecified (ICD-10) Tubal ligation evaluation ?Z01.818 - Encounter for other preprocedural examination (ICD-10) Colonoscopy planned Headache, migraine ?G43.909 - Migraine, unspecified, not intractable, without status migrainosus (ICD-10) SVT (supraventricular tachycardia) ?I47.10 - Supraventricular tachycardia, unspecified (ICD-10) Screening for colorectal cancer ?Z12.11 - Encounter for screening for malignant neoplasm of colon (ICD-10) ?Z12.12 - Encounter for screening for malignant neoplasm of rectum (ICD-10) COPD (chronic obstructive pulmonary disease) ?J44.9 - Chronic obstructive pulmonary disease, unspecified (ICD-10) Migraine ?G43.909 - Migraine, unspecified, not intractable, without status migrainosus (ICD-10) Loud snoring ?R06.83 - Snoring (ICD-10) Osteoarthritis ?M19.90 - Unspecified osteoarthritis, unspecified site (ICD-10) Neck pain ?M54.2 - Cervicalgia (ICD-10) Bipolar 1 disorder ?F31.9 - Bipolar disorder, unspecified (ICD-10) Hearing deficit ?H91.90 - Unspecified hearing loss, unspecified ear (ICD-10) Anxiety ?F41.9 - Anxiety disorder, unspecified (ICD-10) Acid reflux ?K21.9 - Gastro-esophageal reflux disease without esophagitis (ICD-10) Obesity ?E66.9 - Obesity, unspecified (ICD-10) Hypothyroid ?E03.9 - Hypothyroidism, unspecified (ICD-10) Pulmonary hypertension ?I27.20 - Pulmonary hypertension, unspecified (ICD-10) Sleep apnea ?G47.30 - Sleep apnea, unspecified (ICD-10) High cholesterol ?E78.00 - Pure hypercholesterolemia, unspecified (ICD-10) Hypertension ?I10 - Essential (primary) hypertension (ICD-10) Surgical History History of colonoscopy ?Z98.890 - Other specified postprocedural states (ICD-10) H/O bilateral salpingo-oophorectomy ?Z90.79 - Acquired absence of other genital organ(s) (ICD-10) ?Z90.722 - Acquired absence of ovaries, bilateral (ICD-10) H/O dilation and curettage ?Z98.890 - Other specified postprocedural states (ICD-10) Cataract extraction status ?Z98.49 - Cataract extraction status, unspecified eye (ICD-10) H/O blepharoplasty ?Z98.890 - Other specified postprocedural states (ICD-10) History of mandibular surgery ?Z98.890 - Other specified postprocedural states (ICD-10) Hx of tubal ligation ?Z98.51 - Tubal ligation status (ICD-10) History of appendectomy ?Z90.49 - Acquired absence of other specified parts of digestive tract (ICD-10) History of hysterectomy ?Z90.710 - Acquired absence of both cervix and uterus (ICD-10) Family History Mother Family history of cancer Sister Family history of cancer Other Delayed recovery from anesthesia Family history of breast cancer Family history of lung cancer Social History Within the past year, how often did you have a drink containing alcohol: never Score interpretation: A score less than 3 is consistent with normal alcohol consumption. Smoking status: Former smoker Non-prescribed substance use: denies use Previous occupational history: [employer] Highest level of school completed/degree received: 11th grade Are you now , , , , never or living with a partner: In a typical week, how many times do you talk on the telephone with family, friends, or neighbors: 3 or more times per week How often do you get together with friends or relatives: 3 or more times per week How often do you attend restorationism or pentecostal services: 4 or more times per year Do you belong to any clubs or organizations such as restorationism groups unions, [employer] or athletic groups, or school groups: no Total score: 2 Score interpretation: A score of greater than or equal to 2 indicates the lowest level of social isolation. Little interest or pleasure in doing things: not at all Feeling down, depressed, or hopeless: not at all Feel stressed/tense/nervous/anxious/difficulty sleeping: not at all Do you think of yourself as: straight/heterosexual Gender Identity: female Meds Home Medications and Allergies Home Medications ?Medication ?Instructions ?Recorded ?Confirmed ?Type albuterol sulfate 90 mcg/actuation 2 inh inhalation Q6H PRN shortness 10/21/22 06/17/24 History breath activated powder inhaler of breath or wheezing aripiprazole 30 mg tablet (Abilify) 30 mg PO QDAY 10/21/22 06/17/24 History diclofenac sodium 50 mg 50 mg PO BID 10/21/22 06/17/24 History tablet,delayed release ropinirole 1 mg tablet 1 mg PO QDAY PRN restless leg(s) 10/21/22 06/17/24 History levothyroxine 50 mcg tablet 50 mcg PO QDAY #30 tabs 09/17/23 06/17/24 Rx (Euthyrox) ferrous sulfate 325 mg (65 mg 325 mg PO DAILY 04/12/24 06/17/24 History iron) tablet (Holly-Time) fluticasone fur. 100 mcg-umeclid 1 inh inhalation DAILY 04/12/24 06/17/24 History 62.5 mcg-vilant 25 mcg inhalat.powder (Trelegy Ellipta) magnesium 250 mg tablet 250 mg PO DAILY 04/12/24 06/17/24 History vitamins A,C,C-qgda-aihmtx 4,296 1 cap PO DAILY 04/12/24 06/17/24 History mcg-226 mg-90 mg capsule (PreserVision AREDS) amitriptyline 50 mg tablet 50 mg PO .qhs 06/06/24 06/17/24 History baclofen 5 mg tablet 5 mg PO QDAY PRN IF NEEDED FOR 06/06/24 06/17/24 History SKELETAL MUSCULAR PAIN fluoxetine 20 mg capsule 80 mg PO .QD 06/06/24 06/17/24 History liothyronine 5 mcg tablet 5 mcg PO .QD 06/06/24 06/17/24 History lisinopril 40 mg tablet 40 mg PO .QD 06/06/24 06/17/24 History omeprazole 20 mg capsule,delayed 20 mg PO BID 06/06/24 06/17/24 History release oxycodone-acetaminophen 5 mg-325 1 tab PO Q6H PRN pain 7 days #28 06/07/24 06/17/24 Rx mg tablet tabs potassium 99 mg tablet mg PO DAILY 06/08/24 History vitamin B complex 1 tab PO DAILY 06/08/24 06/17/24 History oxycodone-acetaminophen 5 mg-325 1 tab PO Q4H PRN pain 7 days #40 06/11/24 Rx mg tablet (Percocet) tabs oxycodone-acetaminophen 5 mg-325 1 tab PO DAILY PRN pain #30 tabs 06/28/24 Rx mg tablet (Percocet) oxycodone-acetaminophen 5 mg-325 1 tab PO DAILY PRN pain #30 tabs 07/26/24 Rx mg tablet (Percocet) oxycodone-acetaminophen 5 mg-325 1 tab PO DAILY PRN pain #30 tabs 09/03/24 Rx mg tablet (Percocet) oxycodone-acetaminophen 5 mg-325 1 tab PO DAILY PRN pain #30 tabs 09/26/24 Rx mg tablet (Percocet) Allergies Allergy/AdvReac Type Severity Reaction Status Date / Time sumatriptan (From Imitrex) Allergy Severe Palpitation Verified 06/17/24 10:33 s Exam Narrative Exam Narrative: Psych-alert and oriented x 3.? Attentive and appropriate, constitutionally normal, displays normal mood and affect per situation.? There are no obvious deficits in memory, reasoning, or intellect. Extremities-lower extremities are warm with minimal edema and palpable pulses. Shoulder - tender to palpation in bilateral shoulders. Pain elicited with abduction, external rotation of bilateral shoulders. Some grinding is noted with these motions.? There is no notable ligamental laxity or instability.? Coordination remains intact.? Gait remains antalgic. Assessment and Plan Assessment and Plan (1) Right shoulder pain: Qualifiers: Chronicity: chronic Qualified Code(s): M25.511 - Pain in right shoulder; G89.29 - Other chronic pain (2) Left shoulder pain: Qualifiers: Chronicity: chronic Qualified Code(s): M25.512 - Pain in left shoulder; G89.29 - Other chronic pain Plan 69yof who presents for assessment. failed conservative measures, as noted. imaging reviewed, as noted. given symptoms and imaging, will proceed with right shoulder injection. also discussed that given symptoms and imaging of left shoulder, if her pain were to worsen in the future, could discuss left shoulder injection. she expressed understanding. meds reviewed, no changes. follow up in 3 months or sooner, if needed. procedure: right shoulder injection medications: bupivacaine 0.25% 4cc, depomedrol 40mg I explained the details of the procedure to the patient including the risks, benefits, and alternatives.? We had an informed discussion.? The patient verbalized understanding and signed the consent form.? All questions were answered appropriately.? A time-out was performed.? After obtaining a comfortable seated position, the skin overlying the right shoulder was prepped with alcohol 3 times.? The sulcus between the head of the humerus and the acromion was identified.? The needle was inserted in a sterile manner 2 cm inferior and medial to the posterolateral corner of the acromion and was directed anteriorly toward the coracoid process. The contents of the syringe were gently injected without any resistance into the joint space after negative aspiration for blood or other bodily fluids.? The needle was removed and pressure was applied at the injection site to decrease the incidence of ecchymosis and hematoma formation.? A sterile bandage was applied.
--- NOTE | 2024-10-22 15:07 | PM.CN ---
Consult Note: HPI Data of Consult Patient: known to practice within the last 3 years Consult date: 10/22/24 Requesting Physician: Gabriella Woodruff MD Primary Care Provider: POLO SILVA Consult Narrative Reason for consult: bilateral knee pain Narrative: 69yof who presents for in office injection. continues to have pain in bilateral knees, would like to proceed with previously ordered injection. cc:: CC: Gabriella Woodruff MD Review of Systems ROS Status of ROS 10 or more systems reviewed and unremarkable except as noted in history and below [facility] Medical History Syncopal episodes ?R55 - Syncope and collapse (ICD-10) Pneumonia ?J18.9 - Pneumonia, unspecified organism (ICD-10) Restless leg ?G25.81 - Restless legs syndrome (ICD-10) Dyspnea on exertion ?R06.09 - Other forms of dyspnea (ICD-10) Bilateral pulmonary contusion ?S27.322A - Contusion of lung, bilateral, initial encounter (ICD-10) Closed rib fracture ?S22.39XA - Fracture of one rib, unspecified side, initial encounter for closed fracture (ICD-10) Fall ?W19.XXXA - Unspecified fall, initial encounter (ICD-10) Chin contusion ?S00.83XA - Contusion of other part of head, initial encounter (ICD-10) Laceration of lip ?S01.511A - Laceration without foreign body of lip, initial encounter (ICD-10) Fracture of wrist ?S62.109A - Fracture of unspecified carpal bone, unspecified wrist, initial encounter for closed fracture (ICD-10) Macular degeneration ?H35.30 - Unspecified macular degeneration (ICD-10) Seasonal allergies ?J30.2 - Other seasonal allergic rhinitis (ICD-10) Anemia ?D64.9 - Anemia, unspecified (ICD-10) Lumbar radiculopathy ?M54.16 - Radiculopathy, lumbar region (ICD-10) Muscle spasm ?M62.838 - Other muscle spasm (ICD-10) Lumbar spondylosis ?M47.816 - Spondylosis without myelopathy or radiculopathy, lumbar region (ICD-10) Thoracic spondylosis ?M47.814 - Spondylosis without myelopathy or radiculopathy, thoracic region (ICD-10) Bilateral sacroiliitis ?M46.1 - Sacroiliitis, not elsewhere classified (ICD-10) Chronic, continuous use of opioids ?F11.90 - Opioid use, unspecified, uncomplicated (ICD-10) Greater trochanteric bursitis of both hips ?M70.61 - Trochanteric bursitis, right hip (ICD-10) ?M70.62 - Trochanteric bursitis, left hip (ICD-10) Encounter for long-term opiate analgesic use ?Z79.891 - alf (current) use of opiate analgesic (ICD-10) Bilateral primary osteoarthritis of knee ?M17.0 - Bilateral primary osteoarthritis of knee (ICD-10) Acute opioid intoxication ?F11.929 - Opioid use, unspecified with intoxication, unspecified (ICD-10) Tubal ligation evaluation ?Z01.818 - Encounter for other preprocedural examination (ICD-10) Colonoscopy planned Headache, migraine ?G43.909 - Migraine, unspecified, not intractable, without status migrainosus (ICD-10) SVT (supraventricular tachycardia) ?I47.10 - Supraventricular tachycardia, unspecified (ICD-10) Screening for colorectal cancer ?Z12.11 - Encounter for screening for malignant neoplasm of colon (ICD-10) ?Z12.12 - Encounter for screening for malignant neoplasm of rectum (ICD-10) COPD (chronic obstructive pulmonary disease) ?J44.9 - Chronic obstructive pulmonary disease, unspecified (ICD-10) Migraine ?G43.909 - Migraine, unspecified, not intractable, without status migrainosus (ICD-10) Loud snoring ?R06.83 - Snoring (ICD-10) Osteoarthritis ?M19.90 - Unspecified osteoarthritis, unspecified site (ICD-10) Neck pain ?M54.2 - Cervicalgia (ICD-10) Bipolar 1 disorder ?F31.9 - Bipolar disorder, unspecified (ICD-10) Hearing deficit ?H91.90 - Unspecified hearing loss, unspecified ear (ICD-10) Anxiety ?F41.9 - Anxiety disorder, unspecified (ICD-10) Acid reflux ?K21.9 - Gastro-esophageal reflux disease without esophagitis (ICD-10) Obesity ?E66.9 - Obesity, unspecified (ICD-10) Hypothyroid ?E03.9 - Hypothyroidism, unspecified (ICD-10) Pulmonary hypertension ?I27.20 - Pulmonary hypertension, unspecified (ICD-10) Sleep apnea ?G47.30 - Sleep apnea, unspecified (ICD-10) High cholesterol ?E78.00 - Pure hypercholesterolemia, unspecified (ICD-10) Hypertension ?I10 - Essential (primary) hypertension (ICD-10) Surgical History History of colonoscopy ?Z98.890 - Other specified postprocedural states (ICD-10) H/O bilateral salpingo-oophorectomy ?Z90.79 - Acquired absence of other genital organ(s) (ICD-10) ?Z90.722 - Acquired absence of ovaries, bilateral (ICD-10) H/O dilation and curettage ?Z98.890 - Other specified postprocedural states (ICD-10) Cataract extraction status ?Z98.49 - Cataract extraction status, unspecified eye (ICD-10) H/O blepharoplasty ?Z98.890 - Other specified postprocedural states (ICD-10) History of mandibular surgery ?Z98.890 - Other specified postprocedural states (ICD-10) Hx of tubal ligation ?Z98.51 - Tubal ligation status (ICD-10) History of appendectomy ?Z90.49 - Acquired absence of other specified parts of digestive tract (ICD-10) History of hysterectomy ?Z90.710 - Acquired absence of both cervix and uterus (ICD-10) Family History Mother Family history of cancer Sister Family history of cancer Other Delayed recovery from anesthesia Family history of breast cancer Family history of lung cancer Social History Within the past year, how often did you have a drink containing alcohol: never Score interpretation: A score less than 3 is consistent with normal alcohol consumption. Smoking status: Former smoker Non-prescribed substance use: denies use Previous occupational history: [employer] Highest level of school completed/degree received: 11th grade Are you now , , , , never or living with a partner: In a typical week, how many times do you talk on the telephone with family, friends, or neighbors: 3 or more times per week How often do you get together with friends or relatives: 3 or more times per week How often do you attend episcopalian or shinto services: 4 or more times per year Do you belong to any clubs or organizations such as episcopalian groups unions, [employer] or athletic groups, or school groups: no Total score: 2 Score interpretation: A score of greater than or equal to 2 indicates the lowest level of social isolation. Little interest or pleasure in doing things: not at all Feeling down, depressed, or hopeless: not at all Feel stressed/tense/nervous/anxious/difficulty sleeping: not at all Do you think of yourself as: straight/heterosexual Gender Identity: female Meds Home Medications and Allergies Home Medications ?Medication ?Instructions ?Recorded ?Confirmed ?Type albuterol sulfate 90 mcg/actuation 2 inh inhalation Q6H PRN shortness 10/21/22 06/17/24 History breath activated powder inhaler of breath or wheezing aripiprazole 30 mg tablet (Abilify) 30 mg PO QDAY 10/21/22 06/17/24 History diclofenac sodium 50 mg 50 mg PO BID 10/21/22 06/17/24 History tablet,delayed release ropinirole 1 mg tablet 1 mg PO QDAY PRN restless leg(s) 10/21/22 06/17/24 History levothyroxine 50 mcg tablet 50 mcg PO QDAY #30 tabs 09/17/23 06/17/24 Rx (Euthyrox) ferrous sulfate 325 mg (65 mg 325 mg PO DAILY 04/12/24 06/17/24 History iron) tablet (Holly-Time) fluticasone fur. 100 mcg-umeclid 1 inh inhalation DAILY 04/12/24 06/17/24 History 62.5 mcg-vilant 25 mcg inhalat.powder (Trelegy Ellipta) magnesium 250 mg tablet 250 mg PO DAILY 04/12/24 06/17/24 History vitamins A,C,J-uvjl-nznbyw 4,296 1 cap PO DAILY 04/12/24 06/17/24 History mcg-226 mg-90 mg capsule (PreserVision AREDS) amitriptyline 50 mg tablet 50 mg PO .qhs 06/06/24 06/17/24 History baclofen 5 mg tablet 5 mg PO QDAY PRN IF NEEDED FOR 06/06/24 06/17/24 History SKELETAL MUSCULAR PAIN fluoxetine 20 mg capsule 80 mg PO .QD 06/06/24 06/17/24 History liothyronine 5 mcg tablet 5 mcg PO .QD 06/06/24 06/17/24 History lisinopril 40 mg tablet 40 mg PO .QD 06/06/24 06/17/24 History omeprazole 20 mg capsule,delayed 20 mg PO BID 06/06/24 06/17/24 History release oxycodone-acetaminophen 5 mg-325 1 tab PO Q6H PRN pain 7 days #28 06/07/24 06/17/24 Rx mg tablet tabs potassium 99 mg tablet mg PO DAILY 06/08/24 History vitamin B complex 1 tab PO DAILY 06/08/24 06/17/24 History oxycodone-acetaminophen 5 mg-325 1 tab PO Q4H PRN pain 7 days #40 06/11/24 Rx mg tablet (Percocet) tabs oxycodone-acetaminophen 5 mg-325 1 tab PO DAILY PRN pain #30 tabs 06/28/24 Rx mg tablet (Percocet) oxycodone-acetaminophen 5 mg-325 1 tab PO DAILY PRN pain #30 tabs 07/26/24 Rx mg tablet (Percocet) oxycodone-acetaminophen 5 mg-325 1 tab PO DAILY PRN pain #30 tabs 09/03/24 Rx mg tablet (Percocet) oxycodone-acetaminophen 5 mg-325 1 tab PO DAILY PRN pain #30 tabs 09/26/24 Rx mg tablet (Percocet) Allergies Allergy/AdvReac Type Severity Reaction Status Date / Time sumatriptan (From Imitrex) Allergy Severe Palpitation Verified 06/17/24 10:33 s Exam Narrative Exam Narrative: Psych-alert and oriented x 3.? Attentive and appropriate, constitutionally normal, displays normal mood and affect per situation.? There are no obvious deficits in memory, reasoning, or intellect. Extremities-lower extremities are warm with minimal edema and palpable pulses. Knee-examination of the bilateral knee reveals tenderness to palpation over the superior, inferior, lateral, and medial aspect of the knee.? Some swelling is noted without erythema. Pain is elicited with flexion and extension of the knee both actively and passively.? Some grinding is noted with these motions.? There is no notable ligamental laxity or instability.? Coordination remains intact.? Gait remains antalgic. Assessment and Plan Assessment and Plan (1) Bilateral knee pain: Qualifiers: Chronicity: chronic Qualified Code(s): M25.561 - Pain in right knee; M25.562 - Pain in left knee; G89.29 - Other chronic pain Plan 69yof who presents for in office injection. continues to have bilateral knee pain, so will proceed with bilateral knee injection. will follow up in 3 months or sooner, if needed. procedure: bilateral knee injection medications: bupivacaine 0.25% 4cc, depomedrol 40mg x2 I explained the details of the procedure to the patient including the risks, benefits and alternatives. We had an informed discussion and the patient verbalized understanding and signed the consent form. All questions were answered appropriately.? A time out was performed.? After obtaining a comfortable seated position, the left knee was prepped with alcohol x3. A syringe containing the above medication was attached to a 25 gauge, 1.5 inch needle under strict aseptic technique. The lateral tibial plateau was palpated.? The needle was then advanced through the subcutaneous tissue in a medial and superior direction towards the joint space.? The contents of the syringe were gently injected without any resistance. The needle was removed and pressure was applied to the injection site to decrease the incidence of ecchymosis and hematoma formation.? A sterile bandage was applied. The same procedure was then completed on the opposite side.
== END 2024-10-22 13:24 | disposition home or self-care (01) ==
PROVIDERS: PCP Nurse Practitioner Family; Visit Provider Anesthesiology
DX: M25.561 Pain in right knee (principal); M25.562 Pain in left knee; G89.29 Other chronic pain
CPT/HCPCS: 20610; J0665; J1010

== ENCOUNTER 2024-10-23 14:45 | Outpatient (OUT) | payer MEDICARE, SELFPAY ==
--- OUTSIDE RECORDS SUMMARY | 2024-07-16 07:49 | XMS_ITS ---
Author Organization [facility] Address [address] [place] [address] Care Team Providers Care Senior Regulatory Affairs Specialist Name Role Phone Natividad Milton Primary Care Provider Willi Alegria [facility] [phone] REASON FOR VISIT DME Encounters Encounter Location Date Provider Diagnosis [facility] [address] [place] [address] 07/16/2024 Willi Torres Plan Of Treatment No Information Progress Notes * MELANIE TOMPKISN MDOB:1955 (68 yo F)Acc No.[id number]:07/16/2024 Patient: MELANIE DURANT :1955 A ge:68 Y S ex:Female Address:[address] [place] [address] [place], [address] * true * Date: Generated for Printi ng/Faxing/eTransmitting on: 0 10/23/2024 02:48 PM EDT
--- OUTSIDE RECORDS SUMMARY | 2024-10-03 04:49 | XMS_ITS ---
Author Organization [facility] in [place] Address [address] [place] [address] Care Team Providers Care Operations Accountant Name Role Phone Natividad Milton Primary Care Provider REASON FOR VISIT Question Encounters Encounter Location Date Provider Diagnosis [facility] [address] [place] [address] 10/03/2024 Natividad Milton Plan Of Treatment No Information Progress Notes * Mary TOMPKINS MDOB:1955 (69 yo F)Acc No.[id number]:10/03/2024 Patient: aMssimo PRAKASHMary :1955 A ge:69 Y S ex:Female Address:[address] [place] [address] [place] [address] * true * Date: Generated for Printi ng/Faalexg/eTransmitting on: 0 10/23/2024 02:48 PM EDT
--- OUTSIDE RECORDS SUMMARY | 2024-10-09 07:00 | XMS_ITS ---
Author Organization [facility] in [place] Address [address] [place] [address] Care Team Providers Care Sales Representative Education Courses Name Role Phone Natividad Milton Primary Care Provider [phone] Allergies Allergen (clinical drug ingredient) Drug/Non Drug [...] back up- quit in 2020 Vital Signs Weight 205.2 lbs 10/09/2024 Height 62 in 10/09/2024 Blood pressure systolic 160 mm Hg 10/10/19 25 Blood pressure diastolic 90 mm Hg 025 BMI 37.53 kg/m2 10/09/2024 Encounters Encounter Location Date Provider Diagnosis [address] [address] 10/09/2024 Natividad Milton Migraine G43.909 Assessments Encounter [...] * Mary TOMPKINS MDOB:1955 (69 yo F)Acc No.[id number]:10/09/2024 Progress Note Patient: Massimo Mary PRAKASH Provider: Giovana Milton ([facility]), DIE CAST PATTERNMAKER :1955 A ge:69 Y S ex:Female Date:10/09/2024 Address:[address] [place] [address] [place] , [id number] Check In:10:50 AM ESTCheck O ut:11:12 AM [...] Orally Once a day , Taking Trelegy Ellipta(Hzrllykxgbl-Tdtqpxwfr-Ehqmkw) 100-62.5-25 MCG/ACT Aerosol Powder Breath Activated 1 [...] and dry. Assessment: * Assessment: 1. M [facility] G43.909 (Primary) Plan: * Treatment: * Therapeutic [...] TO 60MG. * Preventive Medicine: Screenings/Counseling: B SC ACTION PLAN Above Normal BMI Follow-up D ietary management education, guidance, and counseling * Follow Up: p rn * * Electronically signed by Su Milton , ISOBUTYLENE OPERATOR CHIEF, ENGINEER FISHING VESSEL.DIE CAST PATTERNMAKER.[id number] on 10/11/2024 at 11:47 AM EDT Sign off status: Completed Visit Status: C HK (Check Out) true * Provider: Giovana Milton ([facility]), DIE CAST PATTERNMAKER Date: 0 10/09/2024 Generated for Nelda valdez/Michelle/eTransmitting on: 0 10/23/2024 02:48 PM EDT History and Physical Notes * HPI [...]
--- OUTSIDE RECORDS SUMMARY | 2024-10-22 11:15 | XMS_ITS ---
Author Organization [facility] in [place] Address [address] [place] [address] Care Team Providers Care Campaign Developer Name Role Phone Natividad Milton Primary Care Provider REASON FOR VISIT sick Encounters Encounter Location Date Provider Diagnosis [facility] [address] [place] [address] 10/22/2024 Natividad Milton Plan Of Treatment No Information Progress Notes * Mary TOMPKINS MDOB:1955 (69 yo F)Acc No.[id number]:10/22/2024 UNLOCKED PROGRESS NOTE Progress Note Patient: Mary DURANT Provider: Giovana Milton CNP (TTC) :1955 A ge:69 Y S ex:Female Date:10/22/2024 Address:[address] [place] [address] [address] , [id number] Subjective: * Chief Complaints: * 1 . Sick. * Medical History: Objective: * Vitals: Assessment: Plan: * Treatment: * * Electronic signature of Shannan York , KAREN, MARINE STEWARD.FIELD APPRAISER.[id number] on 10/23/2024 at 02:47 PM EDT Sign off status: Pending Visit Status: C ANC (Cancelled) * Provider: Giovana DE LA O) FIELD APPRAISER Date: 10/22/2024 Generated for Printi ng/Faxing/eTransmitting on: 10/23/2024 02:47 PM EDT
--- OUTSIDE RECORDS SUMMARY | 2024-10-23 14:47 | XMS_ITS | Continuity of Care Document ---
Author Organization [facility] Address [address] [place] [address] Problems Unknown Problems Results Test Value / Unit Interpretation Reference Ran SARS-COV-2 (COVID19), NAAT[[id number]] Collected: 03/24/2020 09:02 PM Specimen Received: 03/26/2020 05:58 AM Source: [facility] SARS-CoV-2 INTERPRETATION [[id number]] Negative See Note SARS-CoV-2 RNA NOT DETECTEDN egative results do not preclude SARS-CoV-2 infection and should notbe used as the sole basis for patient management decisions. Negativeresults must be combined with clinical observations, patient history,and epidemiological information. Optimum specimen types and timingfor peak viral levels during infections caused by SARS-CoV-2 have notbeen determined. Collection of multiple specimens or types ofspecimens may be necessary to detect virus. Improper specimencollection and handling, sequence variability under primers/probes,or organism present below the limit of detection may lead to falsenegative results. Positive and negative predictive values oftesting are highly dependent on prevalence. False negative testresults are more likely when prevalence is high. SOURCE [[id number]] NASOPHARYNGEAL Note: Methodology is Edel [employer] Real-Time RT-PCR. The expected result or reference range is NEGATIVE (Not Detected). For more information regarding COVID-19 testing to include clinicalinformation, methodology detail, intended use, FDA authorization andrecommended fact sheets for patients or healthcare providers, see [employer] Announcement: SARS-CoV-2 (COVID-19) by NAAT at URL below (note,fact sheets are provided by method given in report:[email or web address] Alternatively, see downloadable PDF fact sheet at:[email or web address] Allergies, adverse reactions, alerts No known allergies and adverse reactions Medications No administered medications reported Vital Signs No vital signs reported Social History No smoking Hx information available
--- OUTSIDE RECORDS SUMMARY | 2024-10-23 14:47 | XMS_ITS | Clinical Summary ---
Author Organization [facility] Address [address] [facility] [place] [address] Care Team Providers Care French Binder Name Role Phone Unavailable Primary Care Provider Unavailabl e Allergies Active Allergy Reactions Criticality Noted Date Comments Sumatriptan Other,Unknown 03/19/2020 Tachycardia fainting Medications ARIPiprazole (Abilify) 20 MG tablet Take 30 mg by mouth in the morning. Active Calcium Carb-Cholecalci ferol (Calcium Plus Vitamin D) 500-5 MG-MCG tablet Take 1 tablet by mouth Active levothyroxine (Synthroid, Levoxyl) 100 MCG tablet Take 50 mcg by mouth in the morning. Active metoprolol succinate XL (Toprol-XL) 100 MG 24 hr tablet Take 100 mg by mouth in the morning. Active omeprazole (PriLOSEC) [address] capsule Take 10 mg by mouth in the morning and 10 mg in the evening. Take before meals. Active Family History Medical History Relation Name Comments Cancer Mother Cancer Sister Relation Name Status Comments Father Mother Sister Social History Tobacco Use Types Packs/Day Years Used Date Smoking Tobacco: Never Smokeless Tobacco: Never Tobacco Cessation:Counseling Given: Not Answered Alcohol Use Standard Drinks/Week Comments Never 0 (1 standard drink = 0.6 oz pur e alcohol) Comments Unknown Sex and Gender Information Value Date Recorded Sex Assigned at Not on file Legal Sex Female 8:27 PM EDT Gender Identity Not on file Sexual Orientation Not on file Plan of Treatment Health Maintenance Due Date Last Done Comments CT Colonography 1953 Colonoscopy 1953 Colorectal Cancer Screening 1955 FIT-DNA 1953 FIT 1953 FOBT 1955 Sigmoidoscopy 1953 Mammogram 1993 Influenza Vaccine (Season Ended) 2025 04/30/2023, 02/12/2022, 03/23/2021, Additional history exists Pneumococcal Vaccine: 65+ Years Completed 09/18/2021, 02/02/2020, 02/28/2018, [place] [address] [employer]
--- OUTSIDE RECORDS SUMMARY | 2024-10-23 14:47 | XMS_ITS | Clinical Summary ---
Author Organization [employer] Address [id number] [address] 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 Active levothyroxine (SYNTHROID, LEVOTHROID) 100 MCG tablet Take 100 mcg by mouth daily. Active calcium carbonate-vitamin D3 (OSCAL 500 + D) 500 mg(1,250mg) -200 units per tablet Take 1 tablet by mouth 2 (two) times a day with meals. Active metoprolol succinate XL (TOPROL-XL) 100 mg 24 hr tablet Take 100 mg by mouth daily. Active omeprazole (PriLOSEC) 10 mg capsule Take 10 mg by mouth daily. Active FLUoxetine (PROzac) 10 mg capsule Take 10 mg by mouth daily. Active Active Problems No known active problems Immunizations Immunization Administration Dates Next Due COVID-19, mRNA, LNP-S, PF, 30mcg/0.3mL Dose 07/21,07/14/2020 Social History Tobacco Use Types Packs/Day Years Used Date Smoking Tobacco: Never Smokeless Tobacco: Never Comments:3 months ago quit s moking Alcohol Use Standard Drinks/Week Comments Not Currently 0 (1 standard drink = 0.6 oz pur e alcohol) Childcare Answer Date Recorded Childcare Unknown 03/15/2020 Employment Answer Date Recorded Employment Unknown 03/15/2020 Purpose - Life Answer Date Recorded Purpose and direction in life Unknown Comments No Sex and Gender Information Value Date Recorded Sex Assigned at Not on file Legal Sex Female 11:49 AM EDT Gender Identity Not on file Sexual Orientation Not on file Last Filed Vital Signs Vital Sign Reading Time Taken Comments Blood Pressure 119/57 07/24/2020 1:30 PM EST Pulse 47 07/24/2020 1:30 PM EST Temperature 36.4 C (97.6 F) 07/24/2020 10:41 AM EST Respiratory Rate 16 07/24/2020 1:30 PM EST Oxygen Saturation 99% 07/24/2020 1:30 PM EST Inhaled Oxygen Concentration - - Weight 88.5 kg (195 lb) 07/24/2020 10:41 AM EST Height 167.6 cm (5' 6 ) 07/24/2020 10:41 AM EST Body Mass Index 31.47 07/24/2020 10:41 AM EST Plan of Treatment Health Maintenance Due Date Last Done Comments Depression Screening 1967 Tobacco Screening 1967 Adult BMI Screening 07/30/1971 Zoster (Shingles) Vaccine (2 of 3) 04/23/2016 02/27/2016 Fall Risk Screening 2018 COVID-19 Vaccine (3 2023-2 5 season) 2024 08/04/2020, 07/14/2020 Influenza Vaccine 01/21/2025 02/02/2020, , 02/28/2018, Additional history exists DTaP,Tdap and Td Vaccines (2 - Td or Tdap) 04/01/2028 04/01/2018 Medical Devices Implanted Type Area Plate Corrector Device Identifier Shelf Expiration Date Model / Serial / Lot Lens Iol Ultrasert 23.0d - [id number] - [id number] Implanted:Qty: 1 on 03/27/2020 by Deirdre Denton MD at [facility] Lens Right: Eye [employer] 06/04/2022 [id number] 23.0 / [id number] / NA Lens Iol Ultrasert 23.0d - [id number] - [id number] Implanted:Qty: 1 on 04/08/2020 by Deirdre Denton MD at [facility] Lens Left: Eye [employer] 06/04/2022 [id number] 23.0 / [id number] / NA Insurance [employer] Care Teams Esthetician Permanent Makeup Artist Relationship Specialty Start Date End Date Bull Forrest DO [address] [place] [address] PCP - General Family Medicine 03/27/20
--- OUTSIDE RECORDS SUMMARY | 2024-10-23 14:48 | XMS_ITS | Patient Health Record ---
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 Name Role Phone Natividad Silva Primary Care Provider NATIVIDAD SILVA Unavailable [phone] GriffinkhanhJosé Unavailable [phone] Allergies Allergen (clinical drug ingredient) Drug/Non Drug Allergy documented on EMR Reaction Allergy Type Onset Date Status sumatriptan Imitrex Unknown Drug Allergy Activ e Results Component Value Reference Range Notes CBC AUTO DIFF Reviewed date:01/27/2024 03:58:27 PM Interpretation: Performing Lab: Notes/Report: [facility] , White Blood Count 6.6 4.0-11.0 10 3/uL Red Blood Count 3.71 4.20-5.40 10 6/uL Hemoglobin 9.7 12.0-16.0 g/dL Hematocrit 31.1 36.0-48.0 % Mean Corpuscular Volume 83.8 81.0-99.0 fL Mean Corpuscular Hemoglobin 26.1 26.7-34.0 pg Mean Corpuscular HGB Conc 31.2 29.9-35.2 g/dL Red Cell Distribution Width 18.6 11.0-15.0 % Platelet Count 310 150-450 10 3/uL Mean Platelet Volume 10.0 9.5-13.5 fL Neutrophils Percent Auto 62.7 43.0-75.0 % Lymphocytes Percent Auto 24.7 20.5-60.0 % Monocytes Percent Auto 7.9 1.7-12.0 % Eosinophils Percent Auto 3.4 0.9-7.0 % Basophils Percent Auto 0.8 0.2-2.0 % Immature Granulocytes Pct Auto 0.5 0.0-0.5 % Neutrophils Absolute Auto 4.1 1.4-6.5 10 3/uL Lymphocytes Absolute Auto 1.6 1.2-3.8 10 3/uL Monocytes Absolute Auto 0.5 0.3-0.8 10 3/uL Eosinophils Absolute Auto 0.2 0.0-0.7 10 3/uL Basophils Absolute Auto 0.1 0.0-0.1 10 3/uL Immature Granulocytes Abs Auto 0.03 0.00-0.03 10 3/uL Performing Lab: see note ML - [facility] LB XR knee LUANA 4V Reviewed date:02/20/2024 09:47:36 AM Interpretation: Performing Lab: Notes/Report: Source Facility: [place] [address] XRay Report Signed Patient: MARY VICK MR#: [id number] : 1955 Acct:[id number] Age/Sex: 68 / F ADM Date: 02/16/24 Loc: RAD Attending Dr: Non-Staff Physician MCarmelo Ordering Physician: PhysicianSaminaStaff Liudmila Date of Service: 02/16/24 Procedure(s): XR knee LUANA 4V Accession Number(s): [id number] cc: NATIVIDAD SILVA ; Physician,Non-Staff Liudmila [facility] [place] [address] Patient Name: MARY VICK MRN: [id number] date: 1955 Sex: F Assigned Patient Location: [facility] Current Patient Location: [facility] Accession/Order Number: [id number] Exam Date: 02/16/2024 15:40 Report Date: 02/18/2024 04:52 At the request of: NON-STAFF PHYSICIAN Procedure: XR knee LUANA 4V EXAMINATION: XR knee LUANA 4V HISTORY: Bilateral knee pain COMPARISON: XR knee bilateral 01/29/2022 FINDINGS: RIGHT FINDINGS: BONES: Mild narrowing of the anterior and medial joint spaces. Small-moderate size periarticular degenerative osteophytes involving all 3 compartments. No fracture, dislocation, or bone lesion. SOFT TISSUES: No visible soft tissue swelling. OTHER: Negative. LEFT FINDINGS: BONES: Mild narrowing of the anterior and medial joint spaces. Large periarticular degenerative osteophytes involving all 3 compartments. No fracture, dislocation, or bone lesion. SOFT TISSUES: No visible soft tissue swelling. OTHER: Small joint effusion. XR/XR knee LUANA 4V IMPRESSION: RIGHT CONCLUSION: Mild-moderate degenerative joint disease; stable to slightly progressed. LEFT CONCLUSION: Moderate degenerative joint disease and small joint effusion; stable to slightly progressed. Electronically authenticated by: RAUDEL WHEAT Date: 02/18/2024 04:52 Dictated By: Raudel Wheat M.D. Signed By: 02/18/24453 DD/ 1 TD/TT: Creping Machine Operator: [place] [address] XRay Report Signed Patient: CHRISTINA VICK MR#: [id number] : 1955 Acct:[id number] Age/Sex: 68 / F ADM Date: 02/16/24 Loc: RAD Attending Dr: Sebastián Marinelli M.D. Ordering Physician: PhysicianVanessa M.D. Date of Service: 02/16/24 Procedure(s): XR kne e LUANA 4V Accession Number(s): [id number] cc: NATIVIDAD SILVA ; Physician,Non-Staff Liudmila The [place] [id number] Patient Name: MARY VICK MRN: [id number] date: 1955 Sex: F Assigned Patient Location: RAD Current Patient Loca tion: SURGOUT Accession/Order Numb er: [id number] Exam Date: 02/16/2024 15:40 Report Date: 02/18/2024 04:52 At the request of: NON-STAFF PHYSICIAN Procedure: XR knee LUANA 4V EXAMINATION: XR knee LUANA 4V HISTORY: Bilateral k nee pain COMPARISON: XR knee bilateral 01/29/2022 FINDINGS: RIGHT FINDINGS: BONES: Mild narrowin g of the anterior and medial joint spaces. Small-moderate size periarticular degenerative osteophytes involving all 3 compartments. No fracture, dislocatio n, or bone lesion. SOFT TISSUES: No vis ible soft tissue swelling. OTHER: Negative. LEFT FINDINGS: BONES: Mild narrowin g of the anterior and medial joint spaces. Large periarticular degenerative osteophytes involving all 3 compartments. No fracture, dislocatio n, or bone lesion. SOFT TISSUES: No vis ible soft tissue swelling. OTHER: Small joint effusion. X R/XR knee LUANA 4V IMPRESSION: RIGHT CONCLUSION: Mild-moderate degenerative joint disease; stable to slightly progressed. LEFT CONCLUSION: Mod erate degenerative joint disease and small joint effusion; stable to slightly progressed. Electronically authenticated by: RAUDEL WHEAT Date: 02/18/2024 04:52 Dictated By: Raudel Wheat M.D. Signed By: 02/18/24453 DD/ 1 TD/TT: Creping Machine Operator: MM tomosynthesis screening B I Reviewed date:02/22/2024 09:14:22 PM Interpretation: Performing Lab: Notes/Report: Source Facility: [place] [address] Mammography Report Signed Patient: MARY VICK MR#: [id number] : 1955 Acct:[id number] Age/Sex: 68 / F ADM Date: 02/21/24 Loc: MAMMO Attending Dr: Travis Townsend M.D. Ordering Physician: Travis Townsend M.D. Results: Date of Service: 02/21/24 Follow Up: Procedure(s): MM tomosynthesis screening BI Accession Number(s): [id number] cc: NATIVIDAD SILVA ; Travis Townsend M.D. Patient Name: MARY VICK MR#: [id number] : 1955 Exam Date: 02/21/2024 Ordering Doctor: DR Travis Townsend . RADIOLOGY REPORT PROCEDURE: MM TOMOSYNTHESIS SCREENING BI COMPARISON: MG MAMM SCREEN LUANA W CAD, 03/04/2020. MG MAMM LUANA SCRN W CAD DIG, 02/12/2013. INDICATIONS: Screening Calculator Name NCI Breast Cancer Risk Assessment Tool 5 Year Breast Cancer Risk 3.50% Lifetime Breast Cancer Risk 10.10% Personal Breast Cancer No Personal Ovarian Cancer No Treatments None Family Cancers Mother with breast cancer at age 47; Mother with lung cancer at age 59; Sister with lung,brain cancer at age 43. LOCATION: [facility] BREAST COMPOSITION: There are scattered areas of fibroglandular density. FINDINGS: DIAGNOSTIC CATEGORY 2--BENIGN FINDING. NO CHANGE FROM COMPARISON. Scattered benign-appearing calcifications are present. Scattered benign-appearing nodules are present. RIGHT BREAST: No significant suspicious finding. LEFT BREAST: No significant suspicious finding. RECOMMENDATIONS: ROUTINE MAMMOGRAM AND CLINICAL EVALUATION IN 12 MONTHS. PLEASE NOTE: A NORMAL MAMMOGRAM DOES NOT EXCLUDE THE POSSIBILITY OF BREAST CANCER. A CLINICALLY SUSPICIOUS PALPABLE LUMP SHOULD BE BIOPSIED. Dictated by: Robert Condon MD on 02/22/2024 at 07:57 Approved by: Robert Condon MD on 02/22/2024 at 07:58 Dictated By: Robert Condon M.D. Signed By: 02/22/24 0759 DD/ 075 TD/TT: Creping Machine Operator: [place] [address] Mammography Report Signed Patient: CHRISTINA VICK MR#: [id number] : 1955 Acct:[id number] Age/Sex: 68 / F ADM Date: 02/21/24 Loc: MAMMO Attending Dr: Ga Townsend M.D. Ordering Physician: Travis Townsend M.D. Results: Date of Service: 06/15 Follow Up: Procedure(s): MM tomosynthesis screening BI Accession Number(s): [id number] cc: NATIVIDAD SILVA ; Travis Townsend M.D. Patient Name: MARY VICK MR#: [id number] : 1955 Exam Date: 02/21/2024 Ordering Doctor: DR Travis Townsend . RADIOLOGY REPORT PROCEDURE: MM TOMOSYNTHESIS SCREENING BI COMPARISON: MG MAMM SCREEN LUANA W CAD, 03/04/2020. MG MAMM LUANA SCRN W CAD DIG, 02/12/2013. INDICATIONS: Screening Calculator Name NCI Breast Cancer Risk Assessment Tool 5 Year Breast Cancer Risk 3.50% Lifetime Breast Canc er Risk 10.10% Personal Breast Cancer No Personal Ovarian Can cer No Treatments None Family Cancers Gordon r with breast cancer at age 47; Mother with lung cancer at age 59; Si ster with lung,brain cancer at age 43. LOCATION: [facility] BREAST COMPOSITION: There are scattered areas of fibroglandular density. FINDINGS: DIAGNOSTIC CATEGORY 2--BENIGN FINDING. NO CHANGE FROM COMPARISON. Scattered benign-appearing calcifications are present. Scattered benign-appearing nod ules are present. RIGHT BREAST: No significant suspicious finding. LEFT BREAST: No significant suspicious finding. RECOMMENDATIONS: ROUTINE MAMMOGRAM AN D CLINICAL EVALUATION IN 12 MONTHS. PLEASE NOTE: A MANUEL L MAMMOGRAM DOES NOT EXCLUDE THE POSSIBILITY OF BREAST CANCER. A CLINICALLY SUSPICIOUS PALPABLE LUMP SHOULD BE BIOPSIED. Dictated by: Robert lombardo MD on 02/22/2024 at 07:57 Approved by: Robert lombardo MD on 02/22/2024 at 07:58 Dictated By: Justin Condon M.D. Signed By: 02/22/24 0759 DD/ 0759 TD/TT: Creping Machine Operator: ABRAN CRAFT Reviewed date:05/03/2024 09:47:50 AM Interpretation: Performing Lab: Notes/Report: Source Facility: [place] [address] XRay Report Signed Patient: MARY VICK MR#: [id number] : 1955 Acct:[id number] Age/Sex: 68 / F ADM Date: 05/03/24 Loc: RAD Attending Dr: Varun Monique M.D. Ordering Physician: Varun Monique M.D. Date of Service: 05/03/24 Procedure(s): XR hip LUANA Accession Number(s): [id number] cc: NATIVIDAD SILVA ; Varun Monique M.D. [place] [address] Patient Name: MARY VICK MRN: [id number] date: 1955 Sex: F Assigned Patient Location: RAD Current Patient Location: RAD Accession/Order Number: [id number] Exam Date: 05/03/2024 09:00 Report Date: 05/03/2024 09:21 At the request of: VARUN MONIQUE Procedure: XR hip LUANA EXAMINATION: XR hip LUANA HISTORY: Bilateral Hip Pain COMPARISON: No relevant comparison available. FINDINGS: RIGHT FINDINGS: BONES: No acute fracture or dislocation. Minimal degenerative changes with marginal osteophyte formation SOFT TISSUES: Negative. No visible soft tissue swelling. OTHER: Negative. LEFT FINDINGS: BONES: No acute fracture or dislocation. Minimal degenerative changes with marginal osteophyte formation SOFT TISSUES: Negative. No visible soft tissue swelling. OTHER: Negative. XR/XR hip LUANA IMPRESSION: Minimal bilateral osteoarthritis Electronically authenticated by: ROBERT CONDON Date: 05/03/2024 09:21 Dictated By: Robert Condon M.D. Signed By: 05/03/24922 DD/ 0 TD/TT: Creping Machine Operator: [place] [address] XRay Report Signed Patient: CHRISTINA VICK MR#: [id number] : 1955 Acct:[id number] Age/Sex: 68 / F ADM Date: 05/03/24 Loc: RAD Attending Dr: Varun Monique M.D. Ordering Physician: Varun Monique M.D. Date of Service: 05/03/24 Procedure(s): XR hip LUANA Accession Number(s): [id number] cc: NATIVIDAD SILVA ; Varun Monique M.D. The [address] [address] Patient Name: MARY VICK MRN: [id number] date: 1955 Sex: F Assigned Patient Location: RAD Current Patient Loca tion: RAD Accession/Order Numb er: [id number] Exam Date: 09:00 Report Date: 05/03/2024 09:21 At the request of: VARUN MONIQUE Procedure: XR hip LUANA EXAMINATION: XR hip LUANA HISTORY: Bilateral H ip Pain COMPARISON: No relev ant comparison available. FINDINGS: RIGHT FINDINGS: BONES: No acute frac ture or dislocation. Minimal degenerative changes with marginal osteophyte formation SOFT TISSUES: Negati ve. No visible soft tissue swelling. OTHER: Negative. LEFT FINDINGS: BONES: No acute frac ture or dislocation. Minimal degenerative changes with marginal osteophyte formation SOFT TISSUES: Negati ve. No visible soft tissue swelling. OTHER: Negative. X R/XR hip LUANA IMPRESSION: Minimal bilateral osteoarthritis Electronically authenticated by: ROBERT CONDON Date: 05/03/2024 09:21 Dictated By: Justin Condon M.D. Signed By: 05/03/24922 DD/ 0 TD/TT: Creping Machine Operator: CBC AUTO DIFF Reviewed date:06/06/2024 09:21:21 AM Interpretation: Performing Lab: Notes/Report: [facility] , White Blood Count 8.4 4.0-11.0 10 3/uL Red Blood Count 3.97 4.20-5.40 10 6/uL Hemoglobin 11.4 12.0-16.0 g/dL Hematocrit 35.9 36.0-48.0 % Mean Corpuscular Volume 90.4 81.0-99.0 fL Mean Corpuscular Hemoglobin 28.7 26.7-34.0 pg Mean Corpuscular HGB Conc 31.8 29.9-35.2 g/dL Red Cell Distribution Width 16.2 11.0-15.0 % Platelet Count 290 150-450 10 3/uL Mean Platelet Volume 10.1 9.5-13.5 fL Neutrophils Percent Auto 76.7 43.0-75.0 % Lymphocytes Percent Auto 11.7 20.5-60.0 % Monocytes Percent Auto 7.5 1.7-12.0 % Eosinophils Percent Auto 2.5 0.9-7.0 % Basophils Percent Auto 0.8 0.2-2.0 % Immature Granulocytes Pct Auto 0.8 0.0-0.5 % Neutrophils Absolute Auto 6.4 1.4-6.5 10 3/uL Lymphocytes Absolute Auto 1.0 1.2-3.8 10 3/uL Monocytes Absolute Auto 0.6 0.3-0.8 10 3/uL Eosinophils Absolute Auto 0.2 0.0-0.7 10 3/uL Basophils Absolute Auto 0.1 0.0-0.1 10 3/uL Immature Granulocytes Abs Auto 0.07 0.00-0.03 10 3/uL Performing Lab: see note - [facility] LB PROF 14(COMP METB) Reviewed date:06/06/2024 09:21:21 AM Interpretation: Performing Lab: Notes/Report: [facility] , Sodium 142 136-145 mmol/L Potassium 4.0 3.5-5.1 mmol/L Chloride 105 98-107 mmol/L Carbon Dioxide 27.9 21.0-32.0 mmol/L Anion Gap 13.1 Glucose 93 74-106 mg/dL Blood Urea Nitrogen 15.0 7.0-18.0 mg/dL Creatinine 1.08 0.55-1.02 mg/dL Estimated GFR ( [place] >60 >=60 mL/min/1.73m 2 Estimated GFR (Non- Amada 50 >=60 mL/min/1.73m 2 BUN Creatinine Ratio 13.9 Calcium 8.6 8.5-10.1 mg/dL Bilirubin Total 0.3 0.2-1.0 mg/dL Aspartate Amino Transferase 22 15-37 U/L Alanine Aminotransferase 22 14-59 U/L Alkaline Phosphatase 65 46-116 U/L Total Protein 6.6 6.4-8.2 g/dL Albumin Level 3.3 3.4-5.0 g/dL Globulin 3.3 Albumin Globulin Ratio 1.0 Performing Lab: see note ML - [facility] Prothrombin Time INR Reviewed date:06/06/2024 09:21:21 AM Interpretation: Performing Lab: Notes/Report: [facility] , Prothrombin Time 10.4 9.0-11.6 sec INR 0.98 DESIRED INR: 2.0-3.0 CONDITIONS NOT LISTED BELOW 2.5-3.5 FOR PROSTHETIC HEART VALVE REPLACEMENT 2.5-3.5 RECURRENT THROMBOSIS Performing Lab: see note - [facility] CT chest wo con Reviewed date:06/06/2024 06:59:30 PM Interpretation: Performing Lab: Notes/Report: Source Facility: [place] [address] CT Scan Report Signed Patient: MARY VICK MR#: [id number] : 1955 Acct:[id number] Age/Sex: 68 / F ADM Date: 06/06/24 Loc: ER Attending Dr: Ordering Physician: Lesia Holguin D.O. Date of Service: 06/06/24 Procedure(s): CT chest wo con Accession Number(s): [id number] cc: NATIVIDAD SILVA [place] [address] Patient Name: MARY VICK MRN: [id number] date: 1955 Sex: F Assigned Patient Location: ER Current Patient Location: ER Accession/Order Number: [id number] Exam Date: 06/06/2024 09:14 Report Date: 06/06/2024 11:56 At the request of: LESIA HOLGUIN Procedure: CT chest wo con EXAMINATION: CT chest wo con, 06/06/2024 9:14 AM EST HISTORY: trauma COMPARISON: None. TECHNIQUE: CT scan of the chest was performed IV contrast. CT dose reduction technique was used, including Automated Exposure Control. FINDINGS: Nodular thyroid gland. Ultrasound could evaluate the thyroid more accurately. Examples include left thyroid nodule measuring 1 cm. No supraclavicular adenopathy. No axillary adenopathy. Moderate coronary artery calcifications. Heart size is normal. Large hiatal hernia. Calcified granulomata of the spleen. Adrenal glands are normal. No acute abnormality of the visualized portions of the upper abdomen. Bilateral scattered interstitial thickening/consolidation, may represent pulmonary edema or potentially infectious/inflammatory process. Left upper lobe pulmonary nodule measuring 0.6 cm (3/). Moderate degeneration of the lower thoracic spine disc spaces. Vertebral body height is preserved. Old healed fracture of the sternum. Chronic appearing fractures of the anterior first, fourth, fifth, sixth ribs. Chronic appearing fractures of the anterior right second, fourth, fifth, sixth ribs. There is some contour irregularity of the left fourth and fifth rib which could represent an acute nondisplaced fracture (3/43) (3/55). There is some contour irregularity of the anterior right ribs as well involving the right third rib (3/35), right fourth rib (3/43), right fifth rib (3/56) anterior sixth rib (3/65), right seventh rib (3/75). CT/CT chest wo con IMPRESSION: 1. Old healed fracture of the sternum. 2. There are old fractures of the bilateral anterior ribs. There is some additional cortical irregularity of the anterior ribs which could represent acute nondisplaced fractures as described above. Correlate with tenderness in this region. 3. Patchy interstitial thickening/consolidation of the lungs, considerations include pulmonary edema or infection/inflammation. 4. Large hiatal hernia. 5. No acute abnormality of the visualized portions of the upper abdomen. Electronically authenticated by: ELIJAH ROGERS Date: 06/06/2024 11:56 Dictated By: Elijah Rogers M.D. Signed By: 06/06/24 1159 DD/ 1156 TD/TT: Creping Machine Operator: [place] [address] CT Scan Report Signed Patient: CHRISTINA VICK MR#: [id number] : 1955 Acct:[id number] Age/Sex: 68 / F ADM Date: 06/06/24 Loc: ER Attending Dr: Ordering Physician: Lesia Holguin D.O. Date of Service: 06/06/24 Procedure(s): CT ilana st wo con Accession Number(s): [id number] cc: NATIVIDAD SILVA [place] [address] Patient Name: MARY VICK MRN: [id number] date: 1955 Sex: F Assigned Patient Location: ER Current Patient Loca tion: ER Accession/Order Numb er: [id number] Exam Date: 06/06/2024 09:14 Report Date: 06/06/2024 11:56 At the request of: LESIA HOLGUIN Procedure: CT chest wo con EXAMINATION: CT ches t wo con, 06/06/2024 9:14 AM EST HISTORY: trauma COMPARISON: None. TECHNIQUE: CT scan o f the chest was performed IV contrast. CT dose reduction technique was used, including Automated Exposure Control. FINDINGS: Nodular thyroid glan d. Ultrasound could evaluate the thyroid more accurately. Examples include lef t thyroid nodule measuring 1 cm. No supraclavicular adenopathy. No axillary adenopathy. Moderate coronary ar courtney calcifications. Heart size is normal. Large hiatal hernia. Calcified granulomat a of the spleen. Adrenal glands are normal. No acute abnormality of the visualized portions of the upper abdomen. Bilateral scattered interstitial thickening/consolidation, may represent pulmonary edema or potentially infectious/inflammatory process. Left upper lobe pulm onary nodule measuring 0.6 cm (08/08). Moderate degeneratio n of the lower thoracic spine disc spaces. Vertebral body height is preserved. Old healed fracture of the sternum. Chronic appearing fractures of the anterior first, fourth, fifth, sixth ribs. Chronic appearing fractures of the anterior right second, fourth, fifth, sixth ribs. There is some contou r irregularity of the left fourth and fifth rib which could represent an acute nondisplaced fracture (3/43) (3/55). There is some contou r irregularity of the anterior right ribs as well involving the right third rib (3/35), right fourth rib (3/43), right fifth rib (3/56) anterior sixth rib (3/65), right seventh rib (3/75). C T/CT chest wo con IMPRESSION: 1. Old healed fractu re of the sternum. 2. There are old fractures of the bilateral anterior ribs. There is some additional cortical irregularity of the anterior ribs which could represent acute nondisplaced fractures as described above. Correlate with tenderness in this region. 3. Patchy interstiti al thickening/consolidation of the lungs, considerations include pulmonary ed corey or infection/inflammation. 4. Large hiatal hernia. 5. No acute abnormal ity of the visualized portions of the upper abdomen. Electronically authenticated by: ELIJAH ROGERS Date: 06/06/2024 11:56 Dictated By: Elijah Rogers M.D. Signed By: 06/06/24 1159 DD/ 1156 TD/TT: Creping Machine Operator: CT head/brain wo con Reviewed date:06/06/2024 06:59:30 PM Interpretation: Performing Lab: Notes/Report: Source Facility: [place] [address] CT Scan Report Signed Patient: MARY VICK MR#: [id number] : 1955 Acct:[id number] Age/Sex: 68 / F ADM Date: 06/06/24 Loc: MS 220-[address]: Travis Townsend M.D. Ordering Physician: Lesia Holguin D.O. Date of Service: 06/06/24 Procedure(s): CT head/brain wo con Accession Number(s): [id number] cc: NATIVIDAD SILVA [place] [address] Patient Name: MARY VICK MRN: [id number] date: 1955 Sex: F Assigned Patient Location: ER Current Patient Location: MS Accession/Order Number: [id number] Exam Date: 06/06/2024 09:14 Report Date: 06/06/2024 15:15 At the request of: LESIA HOLGUIN Procedure: CT head/brain wo con CT head without contrast, 06/06/2024. HISTORY: Fall. Head injury. COMPARISON: CT head, 03/18/2024. TECHNIQUE: Noncontrast axial CT images obtained through the head. Reconstructions obtained in the sagittal and coronal planes. Dose reduction techniques were achieved by using automated exposure control and/or adjustment of mA and/or kV according to patient size and/or use of iterative reconstruction technique. FINDINGS: The paranasal sinuses are clear. Middle ear cavities are clear. Mastoid air cells are clear. Skull base is intact. No skull fracture. Nasopharynx normal. Oiler Helper spaces normal. Orbital contents are unremarkable. Mild generalized brain atrophy. Chronic microvascular ischemic changes stable. No subdural fluid collection. There is no mass effect. No shift of midline. No acute hemorrhage. No masses. CT/CT head/brain wo con IMPRESSION: 1. No acute findings. No intracranial hemorrhage. No skull fracture. 2. Stable brain atrophy and chronic microvascular changes. Electronically authenticated by: OLEG QUINTANA Date: 06/06/2024 15:15 Dictated By: Oleg Quintana M.D. Signed By: 06/06/241516 DD/ 14 TD/TT: Creping Machine Operator: [place] [address] CT Scan Report Signed Patient: CHRISTINA VICK MR#: [id number] : 1955 Acct:[id number] Age/Sex: 68 / F ADM Date: 06/06/24 Loc: MS 220-[address]: Ga Townsend M.D. Ordering Physician: Lesia Holguin D.O. Date of Service: 06/06/24 Procedure(s): CT head/brain wo con Accession Number(s): [id number] cc: NATIVIDAD SILVA [place] [address] Patient Name: MARY VICK MRN: [id number] date: 1955 Sex: F Assigned Patient Location: ER Current Patient Loca tion: MS Accession/Order Numb er: [id number] Exam Date: 06/06/2024 09:14 Report Date: 06/06/2024 15:15 At the request of: LESIA HOLGUIN Procedure: CT head/b rain wo con CT head without cont rast, 06/06/2024. HISTORY: Fall. Head injury. COMPARISON: CT head, 03/18/2024. TECHNIQUE: Noncontra st axial CT images obtained through the head. Reconstructions obta ined in the sagittal and coronal planes. Dose reduction techniques were achi eved by using automated exposure control and/or adjustment of mA and/or kV acco rding to patient size and/or use of iterative reconstruction technique. FINDINGS: The parana jesusita sinuses are clear. Middle ear cavities are clear. Mastoid air cells ar e clear. Skull base is intact. No skull fracture. Nasopharynx normal. Oiler Helper spaces normal. Orbital contents are unremarkable. Mild generalized bra in atrophy. Chronic microvascular ischemic changes stable. No subdural fluid collection. There is no mass effect. No shift of midline. No acute hemorrhage. No masses. C T/CT head/brain wo con IMPRESSION: 1. No acute findings . No intracranial hemorrhage. No skull fracture. 2. Stable brain atro phy and chronic microvascular changes. Electronically authenticated by: OLEG QUINTANA Date: 06/06/2024 15:15 Dictated By: Sharee Quintana M.D. Signed By: 06/06/241516 DD/ 14 TD/TT: Creping Machine Operator: CT cervical spine wo con Reviewed date:06/06/2024 06:59:30 PM Interpretation: Performing Lab: Notes/Report: Source Facility: [place] [address] CT Scan Report Signed Patient: MARY VICK MR#: [id number] : 1955 Acct:[id number] Age/Sex: 68 / F ADM Date: 06/06/24 Loc: MS 220-[address]: Travis Townsend M.D. Ordering Physician: Lesia Holguin D.O. Date of Service: 06/06/24 Procedure(s): CT cervical spine wo con Accession Number(s): [id number] cc: NATIVIDAD SILVA [place] [address] Patient Name: MARY VICK MRN: [id number] date: 1955 Sex: F Assigned Patient Location: ER Current Patient Location: [place] Accession/Order Number: [id number] Exam Date: 06/06/2024 09:14 Report Date: 06/06/2024 15:15 At the request of: LESIA HOLGUIN Procedure: CT cervical spine wo con CT CERVICAL SPINE WITHOUT CONTRAST, 06/06/2024. HISTORY: Fall. Neck pain. COMPARISON: None. TECHNIQUE: Noncontrast axial CT images obtained through the cervical spine. Reconstructions obtained in the sagittal and coronal planes. FINDINGS: The patient is osteopenic. The odontoid process is intact. The facet joints are intact. Vertebral body heights are normal. Transverse processes are intact. No fracture identified. No CT evidence of spinal cord compression. No paraspinal soft tissue swelling. No paraspinal masses. CT/CT cervical spine wo con IMPRESSION: No acute cervical spine fracture or traumatic subluxation. Electronically authenticated by: OLEG QUINTANA Date: 06/06/2024 15:15 Dictated By: Oleg Quintana M.D. Signed By: 06/06/247 DD/ 14 TD/TT: Creping Machine Operator: [place] [address] CT Scan Report Signed Patient: CHRISTINA VICK MR#: [id number] : 1955 Acct:[id number] Age/Sex: 68 / F ADM Date: 06/06/24 Loc: [place] 220-[address]: Ga Townsend M.D. Ordering Physician: Lesia Holguin D.O. Date of Service: 06/06/24 Procedure(s): CT cer vical spine wo con Accession Number(s): [id number] cc: NATIVIDAD SILVA [place] [address] Patient Name: MARY VICK MRN: [id number] date: 1955 Sex: F Assigned Patient Location: ER Current Patient Loca tion: [place] Accession/Order Numb er: [id number] Exam Date: 06/06/2024 09:14 Report Date: 06/06/2024 15:15 At the request of: LESIA HOLGUIN Procedure: CT cervic al spine wo con CT CERVICAL SPINE WI THOUT CONTRAST, 06/06/2024. HISTORY: Fall. Neck pain. COMPARISON: None. TECHNIQUE: Noncontra st axial CT images obtained through the cervical spine. Reconstructions obta ined in the sagittal and coronal planes. FINDINGS: The patien t is osteopenic. The odontoid process is intact. The facet joints are intact. Vertebral body heights are normal. Transverse processes are intact. No fracture identified. No CT evidence of spinal cord compression. No paraspinal soft tiss ue swelling. No paraspinal masses. C T/CT cervical spine wo con IMPRESSION: No acute cervical sp ine fracture or traumatic subluxation. Electronically authenticated by: OLEG QUINTANA Date: 06/06/2024 15:15 Dictated By: Sharee Quintana M.D. Signed By: 06/06/241516 DD/ 14 TD/TT: Creping Machine Operator: BNP Reviewed date:06/06/2024 06:59:30 PM Interpretation: Performing Lab: Notes/Report: [facility] , NT Pro B Type Natriuretic Pept 59.0 <=900.0 pg/mL Performing Lab: see note ML - [facility] LB Troponin I High Sensitivity Reviewed date:06/06/2024 06:59:30 PM Interpretation: Performing Lab: Notes/Report: [facility] , Troponin I High Sensitivity 5.6 4.0-51.3 pg/mL CUT-OFF POINTS HAVE BEEN ESTABLISHED BASED ON THE FOURTH UNIVERSAL DEFINITION OF MYOCARDIAL INFARCTION. THE UPPER REFERENCE LIMIT (URL) OF TROPONIN, DEFINED THE 99TH PERCENTILE OF cTnI DISTRIBUTION IN A REFERENCE POPULATION, HAS BEEN CONFIRMED THE DECISION THRESHOLD FOR ID DIAGNOSIS. 99TH PERCENTILE = 51.4 PG/ML NOTE: HIGH-SENSITIVITY TROPONIN ASSAY IS NOT INTENDED TO BE USED IN ISOLATION BUT SHOULD BE INTERPRETED IN CONJUNCTION WITH OTHER DIAGNOSTIC AND CLINICAL INFORMATION. Performing Lab: see note ML - [facility] LB XR chest 2V Reviewed date:06/07/2024 12:42:46 PM Interpretation: Performing Lab: Notes/Report: Source Facility: [facility]-[address] [place] [address] [place] [address] XRay Report Signed Patient: MARY VICK MR#: [id number] : 1955 Acct:[id number] Age/Sex: 68 / F ADM Date: 06/06/24 Loc: [place] 220-[address]: Travis Townsend M.D. Ordering Physician: Travis Townsend M.D. Date of Service: 06/07/24 Procedure(s): XR chest 2V Accession Number(s): [id number] cc: NATIVIDAD SILVA ; Travis Townsend M.D. The [place] [address] Patient Name: MARY VICK MRN: [id number] date: 1955 Sex: F Assigned Patient Location: [place] Current Patient Location: [place] Accession/Order Number: [id number] Exam Date: 06/07/2024 08:45 Report Date: 06/07/2024 09:00 At the request of: TRAVIS TOWNSEND Procedure: XR chest 2V EXAMINATION: XR chest 2V HISTORY: hypoxia COMPARISON: TECHNIQUE: PA and lateral FINDINGS: LUNGS: No significant pulmonary parenchymal abnormalities. VASCULATURE: Mildly increased pulmonary vasculature. PLEURA: No pneumothorax, effusion, or pleural thickening. CARDIAC: Mild stable cardiomegaly. MEDIASTINUM: No visible mass or adenopathy. BONES: No fracture or visible bone lesion. OTHER: Large retrocardiac opacity with an air-fluid level consistent with a hiatal hernia XR/XR chest 2V IMPRESSION: Pulmonary vascular congestion Electronically authenticated by: ROBERT CONDON Date: 06/07/2024 09:00 Dictated By: Robert Condon M.D. Signed By: 06/07/24902 DD/ 9 TD/TT: Creping Machine Operator: [place] [address] XRay Report Signed Patient: CHRISTINA VICK MR#: [id number] : 1955 Acct:[id number] Age/Sex: 68 / F ADM Date: 06/06/24 Loc: [place] 220-[address]: Ga Townsend M.D. Ordering Physician: Travis Townsend M.D. Date of Service: 06/07/24 Procedure(s): XR chest 2V Accession Number(s): [id number] cc: NATIVIDAD SILVA ; Travis Townsend M.D. The [address] [address] Patient Name: MARY VICK MRN: [id number] date: 1955 Sex: F Assigned Patient Location: [place] Current Patient Loca tion: [place] Accession/Order Numb er: [id number] Exam Date: 06/07/2024 08:45 Report Date: 06/07/2024 09:00 At the request of: TRAVIS TOWNSEND Procedure: XR chest 2V EXAMINATION: XR chest 2V HISTORY: hypoxia COMPARISON: TECHNIQUE: PA and lateral FINDINGS: LUNGS: No significan t pulmonary parenchymal abnormalities. VASCULATURE: Mildly increased pulmonary vasculature. PLEURA: No pneumotho rax, effusion, or pleural thickening. CARDIAC: Mild stable cardiomegaly. MEDIASTINUM: No visi ble mass or adenopathy. BONES: No fracture o r visible bone lesion. OTHER: Large retroca rdiac opacity with an air-fluid level consistent with a hiatal hernia X R/XR chest 2V IMPRESSION: Pulmonary vascular congestion Electronically authenticated by: ROBERT CONDON Date: 06/07/2024 09:00 Dictated By: Justin Condon M.D. Signed By: 06/07/24902 DD/ 9 TD/TT: Creping Machine Operator: CBC AUTO DIFF Reviewed date:06/12/2024 04:07:12 PM Interpretation: Performing Lab: Notes/Report: [facility] , White Blood Count 9.1 4.0-11.0 10 3/uL Red Blood Count 4.17 4.20-5.40 10 6/uL Hemoglobin 11.9 12.0-16.0 g/dL Hematocrit 37.3 36.0-48.0 % Mean Corpuscular Volume 89.4 81.0-99.0 fL Mean Corpuscular Hemoglobin 28.5 26.7-34.0 pg Mean Corpuscular HGB Conc 31.9 29.9-35.2 g/dL Red Cell Distribution Width 15.8 11.0-15.0 % Platelet Count 299 150-450 10 3/uL Mean Platelet Volume 10.3 9.5-13.5 fL Neutrophils Percent Auto 70.5 43.0-75.0 % Lymphocytes Percent Auto 18.8 20.5-60.0 % Monocytes Percent Auto 7.0 1.7-12.0 % Eosinophils Percent Auto 2.8 0.9-7.0 % Basophils Percent Auto 0.7 0.2-2.0 % Immature Granulocytes Pct Auto 0.2 0.0-0.5 % Neutrophils Absolute Auto 6.4 1.4-6.5 10 3/uL Lymphocytes Absolute Auto 1.7 1.2-3.8 10 3/uL Monocytes Absolute Auto 0.6 0.3-0.8 10 3/uL Eosinophils Absolute Auto 0.3 0.0-0.7 10 3/uL Basophils Absolute Auto 0.1 0.0-0.1 10 3/uL Immature Granulocytes Abs Auto 0.02 0.00-0.03 10 3/uL Performing Lab: see note ML - [facility] LB FL fluoroscopy <1hr NON-READ Reviewed date:06/13/2024 12:18:22 PM Interpretation: Performing Lab: Notes/Report: Source Facility: [place] [address] Fluoroscopy Report Signed Patient: MARY VICK MR#: [id number] : 1955 Acct:[id number] Age/Sex: 68 / F ADM Date: 06/11/24 Loc: SURGOUT Attending Dr: Raudel Royal M.D. Ordering Physician: Raudel Royal M.D. Date of Service: 06/11/24 Procedure(s): FL fluoroscopy <1hr NON-READ Accession Number(s): [id number] cc: NATIVIDAD SILVA ; Raudel Royal M.D. [place] [address] Patient Name: MARY VICK MRN: [id number] date: 1955 Sex: F Assigned Patient Location: [facility] Current Patient Location: Accession/Order Number: [id number] Exam Date: 06/11/2024 15:25 Report Date: 06/13/2024 07:28 At the request of: RAUDEL ROYAL Procedure: FL fluoroscopy <1hr NON-READ EXAM: FL fluoroscopy <1hr NON-READ HISTORY: TECHNIQUE: FINDINGS: Please see Operative Report. Electronically authenticated by: RADIOLOGIST NO Date: 06/13/2024 07:28 Dictated By: Elizabeth,Radiologist Signed By: 06/13/24729 DD/ 7 TD/TT: Creping Machine Operator: [place] [address] Fluoroscopy Report Signed Patient: CHRISTINA VICK MR#: [id number] : 1955 Acct:[id number] Age/Sex: 68 / F ADM Date: 06/11/24 Loc: SURGOUT Attending Dr: Raudel Royal M.D. Ordering Physician: Raudel Royal M.D. Date of Service: 06/11/24 Procedure(s): FL fluoroscopy <1hr NON-READ Accession Number(s): [id number] cc: NATIVIDAD SILVA ; Raudel Royal M.D. The [place] [address] Patient Name: MARY VICK MRN: [id number] date: 1955 Sex: F Assigned Patient Location: SURGOUT Current Patient Location: Accession/Order Numb er: [id number] Exam Date: 06/11/2024 15:25 Report Date: 06/13/2024 07:28 At the request of: RAUDEL ROYAL Procedure: FL fluoro scopy <1hr NON-READ EXAM: FL fluoroscopy <1hr NON-READ HISTORY: TECHNIQUE: FINDINGS: Please see Operative Report. Electronically authenticated by: NARAYAN RIVERO Date: 06/13/2024 07:28 Dictated By: ElizabethRadiologist Signed By: 06/13/24729 DD/ 7 TD/TT: Creping Machine Operator: ECG 12 lead Reviewed date:06/18/2024 12:30:48 PM Interpretation: Performing Lab: Notes/Report: Source Facility: [place] [address] [place] [address] Electrocardiograph Report Signed Patient: MARY VICK MR#: [id number] : 1955 Acct:[id number] Age/Sex: 68 / F ADM Date: 06/17/24 Loc: ER Attending Dr: Ordering Physician: Catherine Bales Date of Service: 06/17/24 Procedure(s): ECG 12 lead Accession Number(s): [id number] cc: [facility] Test Date: 2024-06-17 Pat Name: MARY VICK Department: Room: - Gender: Female Software Computer Specialist: : 1955 Requested By: NATIVIDAD SILVA Order Number: [id number] Reading MD: TRAVIS TOWNSEND Measurements Intervals [place] Rate: 59 P: 30 HI: 164 QRS: 38 QRSD: 88 T: 53 QT: 444 QTc: 442 Interpretive Statements 1100 Sinus rhythm 9110 normal ECG Compared to ECG 06/11/2024 13:40:46 Sinus bradycardia no longer present Electronically Signed On 06-18-2024 9:24:34 EST by TRAVIS TOWNSEND Dictated By: Travis Townsend M.D. Signed By: 06/18/24924 DD/ 1059 TD/TT: Creping Machine Operator: [place] [address] Electrocardiograph Report Signed Patient: CHRISTINA VICK MR#: [id number] : 1955 Acct:[id number] Age/Sex: 68 / F ADM Date: 06/17/24 Loc: ER Attending Dr: Ordering Physician: Catherine Bales Date of Service: 06/17/24 Procedure(s): ECG 12 lead Accession Number(s): [id number] cc: [facility] Test Date: 2024-06-17 Pat Name: MARY TOLLIVER Department: 45 Room: - Gender: Female Software Computer Specialist: : 1955 Requ ested By: NATIVIDAD SILVA Order Number: [id number] Reading MD: TRAVIS TOWNSEND Measurements Intervals [place] Rate: 59 P: 30 HI: 164 QRS: 38 QRSD: 88 T: 53 QT: 444 QTc: 442 Interpretive Statements 1100 Sinus rhythm 9110 normal ECG Compared to ECG 06/11/2024 13:40:46 Sinus bradycardia no longer present Electronically Ashlyn d On 06-18-2024 9:24:34 EST by TRAVIS TOWNSEND Dictated By: Do blaire Townsend M.D. Signed By: 06/18/24924 DD/ 1059 TD/TT: Creping Machine Operator: XR wrist LT min 3V Reviewed date:07/04/2024 12:50:42 PM Interpretation: Performing Lab: Notes/Report: Source Facility: [place] [address] XRay Report Signed Patient: MARY VICK MR#: [id number] : 1955 Acct:[id number] Age/Sex: 68 / F ADM Date: 06/25/24 Loc: EC Attending Dr: Raudel Royal M.D. Ordering Physician: Raudel Royal M.D. Date of Service: 06/25/24 Procedure(s): XR wrist LT min 3V Accession Number(s): [id number] cc: NATIVIDAD SILVA ; Raudel Royal M.D. [place] [address] Patient Name: MARY VICK MRN: [id number] date: 1955 Sex: F Assigned Patient Location: Current Patient Location: Accession/Order Number: [id number] Exam Date: 06/25/2024 08:35 Report Date: 06/27/2024 15:44 At the request of: RAUDEL ROYAL Procedure: XR wrist LT min 3V PROCEDURE: XR wrist LT min 3V HISTORY: LEFT WRIST PAIN COMPARISON: XR wrist left 06/06/2024 FINDINGS: BONES: Distal radius fracture via anterior plate and screws. Oblique fracture of distal ulna through the base of the ulnar styloid process with slight proximal retraction. Intact carpal bones and joints. SOFT TISSUES:Soft tissue swelling surrounding the wrist. EFFUSION:None visible. OTHER: Negative. XR/XR wrist LT min 3V IMPRESSION: 1. Postoperative repair of distal radius fractures and grossly stable alignment of distal ulnar fracture. Electronically authenticated by: RAUDEL WHEAT Date: 06/27/2024 15:44 Dictated By: Raudel Wheat M.D. Signed By: 06/27/24 1546 DD/ 154 TD/TT: Creping Machine Operator: The [address] [address] XRay Report Signed Patient: CHRISTINA VICK MR#: [id number] : 1955 Acct:[id number] Age/Sex: 68 / F ADM Date: 06/25/24 Loc: EC Attending Dr: Raudel Royal M.D. Ordering Physician: Raudel Royal M.D. Date of Service: 06/25/24 Procedure(s): XR wri st LT min 3V Accession Number(s): [id number] cc: NATIVIDAD SILVA ; Raudel Royal M.D. The [place] [address] Patient Name: MARY VICK MRN: [id number] date: 1955 Sex: F Assigned Patient Location: Current Patient Location: Accession/Order Numb er: [id number] Exam Date: 06/25/2024 08:35 Report Date: 06/27/2024 15:44 At the request of: RAUDEL ROYAL Procedure: XR wrist LT min 3V PROCEDURE: XR wrist LT min 3V HISTORY: LEFT WRIST PAIN COMPARISON: XR wrist left 06/06/2024 FINDINGS: BONES: Distal radius fractu re via anterior plate and screws. Oblique fracture of distal ulna through the base of the ulnar styloid process with slight proximal retraction. Intact c arpal bones and joints. SOFT TISSUES:Soft ti ssue swelling surrounding the wrist. EFFUSION:None visible. OTHER: Negative. X R/XR wrist LT min 3V IMPRESSION: 1. Postoperative rep air of distal radius fractures and grossly stable alignment of distal ulnar fracture. Electronically authenticated by: RAUDEL WHEAT Date: 06/27/2024 15:44 Dictated By: Raudel Wheat M.D. Signed By: 06/27/24 1546 DD/ 43 TD/TT: Creping Machine Operator: XR wrist LT min 3V Reviewed date:07/16/2024 01:45:20 PM Interpretation: Performing Lab: Notes/Report: Source Facility: [place] [address] The [place] [id number] XRay Report Signed Patient: MARY VICK MR#: [id number] : 1955 Acct:[id number] Age/Sex: 68 / F ADM Date: 07/16/24 Loc: EC Attending Dr: Raudel Royal M.D. Ordering Physician: Raudel Royal M.D. Date of Service: 07/16/24 Procedure(s): XR wrist LT min 3V Accession Number(s): [id number] cc: NATIVIDAD SILVA ; Raudel Royal M.D. [place] [address] Patient Name: MARY VICK MRN: [id number] date: 1955 Sex: F Assigned Patient Location: Current Patient Location: Accession/Order Number: [id number] Exam Date: 07/16/2024 13:24 Report Date: 07/16/2024 13:26 At the request of: RAUDEL ROYAL MD Procedure: XR wrist LT min 3V LEFT WRIST - 3 views COMPARISON: 06/25/2024 CLINICAL DATA: Follow-up wrist fractures. Wrist pain. AP, lateral and one oblique view were obtained. There is redemonstration of fractures involving the distal radius and ulna. There is no change in alignment. A volar plate at the distal radius is again noted. There are no new fractures or dislocation. Mild soft tissue swelling is present. XR/XR wrist LT min 3V IMPRESSION: STABLE FRACTURES INVOLVING THE DISTAL RADIUS AND ULNA. Impression dictated by: Alysia Avina M.D.07/16/2024 1:26 PM Dictation Location: [place] [address] Electronically authenticated by: [id number] Y Date: 07/16/2024 13:26 Dictated By: Alysia Avina M.D. Signed By: 07/16/24 1329 DD/ 1326 TD/TT: Creping Machine Operator: The [place] [id number] XRay Report Signed Patient: CHRISTINA VICK MR#: [id number] : 1955 Acct:[id number] Age/Sex: 68 / F ADM Date: 07/16/24 Loc: EC Attending Dr: Raudel Royal M.D. Ordering Physician: Raudel Royal M.D. Date of Service: 07/16/24 Procedure(s): XR wri st LT min 3V Accession Number(s): [id number] cc: NATIVIDAD SILVA ; Raudel Royal M.D. [place] [id number] Patient Name: MARY VICK MRN: [id number] date: 1955 Sex: F Assigned Patient Location: Current Patient Loca tion: EC Accession/Order Numb er: [id number] Exam Date: 07/16/2024 13:24 Report Date: 07/16/2024 13:26 At the request of: RAUDEL ROYAL MD Procedure: XR wrist LT min 3V LEFT WRIST - 3 views COMPARISON: 06/25/2024 CLINICAL DATA: Follo w-up wrist fractures. Wrist pain. AP, lateral and one oblique view were obtained. There is redemonstration of fractures involving the distal radius and ulna. There is no change in alignment. A volar p late at the distal radius is again noted. There are no new fractures or dislocation. Mild soft tissue swelling is present. X R/XR wrist LT min 3V IMPRESSION: STABLE FRACTURES INVOLVING THE DISTAL RADIUS AND ULNA. Impression dictated by: Alysia Avina M.D.07/16/2024 1:26 PM Dictation Location: [place] [address] Electronically authenticated by: [id number] Y Date: 07/16/2024 13:26 Dictated By: Alysia Avina M.D. Signed By: 07/16/24 1329 DD/ 1326 TD/TT: Creping Machine Operator: XR chest 1V Reviewed date:06/18/2024 12:30:48 PM Interpretation: Performing Lab: Notes/Report: Source Facility: [address] [address] [address] XRay Report Signed Patient: MARY VICK MR#: [id number] : 1955 Acct:[id number] Age/Sex: 68 / F ADM Date: 06/17/24 Loc: ER Attending Dr: Ordering Physician: Catherine Bales Date of Service: 06/17/24 Procedure(s): XR chest 1V Accession Number(s): [id number] cc: NATIVIDAD SILVA ; Catherine Bales The [place] [id number] Patient Name: MARY VICK MRN: [id number] date: 1955 Sex: F Assigned Patient Location: ER Current Patient Location: ER Accession/Order Number: [id number] Exam Date: 06/17/2024 11:15 Report Date: 06/17/2024 13:19 At the request of: CATHERINE BALES Procedure: XR chest 1V EXAM: XR chest 1V 06/17/2024 COMPARISON STUDY: PA and lateral chest 06/07/2024. CT of the chest 06/06/2024 FINDINGS: Upright AP chest image was obtained of this morbidly obese patient. The image is underpenetrated. HISTORY: cp XR/XR chest 1V IMPRESSION: 1. Moderate enlargement of the cardiac silhouette is again noted. 2. Lung volumes are chronically diminished with peripheral and bibasilar predominant chronic interstitial lung disease with fibrosis again noted. Distribution is relatively symmetric. 3. Large hiatal hernia resulting in compressive atelectasis involving medial aspect of both lower lobes again noted. 4. Overall no acute interval change. There is no pneumothorax. 5. Generalized osteopenia. Numerous bilateral rib fracture deformities are seen to better advantage on the prior CT study. Electronically authenticated by: SERAFIN ZAFAR Date: 06/17/2024 13:19 Dictated By: Qasim Presley M.D. Signed By: 06/17/24 1321 DD/ 1319 TD/TT: Creping Machine Operator: The [address] [address] XRay Report Signed Patient: CHRISTINA VICK MR#: [id number] : 1955 Acct:[id number] Age/Sex: 68 / F ADM Date: 06/17/24 Loc: ER Attending Dr: Ordering Physician: Catherine Bales Date of Service: 06/17/24 Procedure(s): XR chest 1V Accession Number(s): [id number] cc: NATIVIDAD SILVA ; Catherine Bales The [address] [address] Patient Name: MARY VICK MRN: [id number] date: 1955 Sex: F Assigned Patient Location: ER Current Patient Loca tion: ER Accession/Order Numb er: [id number] Exam Date: 06/17/2024 11:15 Report Date: 06/17/2024 13:19 At the request of: CATHERINE BALES Procedure: XR chest 1V EXAM: XR chest 1V 06/17/2024 COMPARISON STUDY: PA and lateral chest 06/07/2024. CT of the chest 06/06/2024 FINDINGS: Upright AP chest image was obtained of this morbidly obese patient. The image is underpenetrated. HISTORY: cp X R/XR chest 1V IMPRESSION: 1. Moderate enlargem ent of the cardiac silhouette is again noted. 2. Lung volumes are chronically diminished with peripheral and bibasilar predominant chronic interstitial lung disease with fibrosis again noted. Distribution is relatively symmetric. 3. Large hiatal avril ia resulting in compressive atelectasis involving medial aspect of both lower lobes again noted. 4. Overall no acute interval change. There is no pneumothorax. 5. Generalized osteopenia. Numerous bilateral rib fracture deformities are seen to better advantage on the prior CT study. Electronically authenticated by: SERAFIN ZAFAR Date: 06/17/2024 13:19 Dictated By: Dav Presley M.D. Signed By: 06/17/24 1321 DD/ 1319 TD/TT: Creping Machine Operator: Troponin I High Sensitivity Reviewed date:06/18/2024 12:30:48 PM Interpretation: Performing Lab: Notes/Report: [facility] , Troponin I High Sensitivity 5.3 4.0-51.3 pg/mL CUT-OFF POINTS HAVE BEEN ESTABLISHED BASED ON THE FOURTH UNIVERSAL DEFINITION OF MYOCARDIAL INFARCTION. THE UPPER REFERENCE LIMIT (URL) OF TROPONIN, DEFINED THE 99TH PERCENTILE OF cTnI DISTRIBUTION IN A REFERENCE POPULATION, HAS BEEN CONFIRMED THE DECISION THRESHOLD FOR ID DIAGNOSIS. 99TH PERCENTILE = 51.4 PG/ML NOTE: HIGH-SENSITIVITY TROPONIN ASSAY IS NOT INTENDED TO BE USED IN ISOLATION BUT SHOULD BE INTERPRETED IN CONJUNCTION WITH OTHER DIAGNOSTIC AND CLINICAL INFORMATION. Performing Lab: see note ML - [facility] LB PROF 14(COMP METB) Reviewed date:06/18/2024 12:30:48 PM Interpretation: Performing Lab: Notes/Report: [facility] , Sodium 138 136-145 mmol/L Potassium 4.4 3.5-5.1 mmol/L Chloride 103 98-107 mmol/L Carbon Dioxide 30.0 21.0-32.0 mmol/L Anion Gap 9.4 Glucose 90 74-106 mg/dL Blood Urea Nitrogen 23.0 7.0-18.0 mg/dL Creatinine 0.94 0.55-1.02 mg/dL Estimated GFR ( [place] >60 >=60 mL/min/1.73m 2 Estimated GFR (Non- [place] 59 >=60 mL/min/1.73m 2 BUN Creatinine Ratio 24.5 Calcium 8.4 8.5-10.1 mg/dL Bilirubin Total 0.3 0.2-1.0 mg/dL Aspartate Amino Transferase 18 15-37 U/L Alanine Aminotransferase 16 14-59 U/L Alkaline Phosphatase 106 46-116 U/L Total Protein 6.8 6.4-8.2 g/dL Albumin Level 3.0 3.4-5.0 g/dL Globulin 3.8 Albumin Globulin Ratio 0.8 Performing Lab: see note ML - [facility] LB D-DIMER Reviewed date:06/18/2024 12:30:48 PM Interpretation: Performing Lab: Notes/Report: [facility] , D Dimer 3.27 <=0.59 mg/L FEU RESULTS CALLED TO VELVET GEIGER RN Increases in D-Dimer concentration observed with thromboembolic events can be variable due to localization, size, and age of the thrombus. Therefore, a thromboembolic event cannot be diagnosed with certainty on the basis of the reference range. D-Dimers may also be elevated for a variety of disorders including advanced age, , coronary disease, cancer, liver disease, infection, inflammation, hematoma, DIC, trauma, post-surgery, diabetes, thrombolytic or anticoagulant therapy, stress, and generalized hospitalization. Performing Lab: see note ML - [facility] LB CBC AUTO DIFF Reviewed date:06/18/2024 12:30:48 PM Interpretation: Performing Lab: Notes/Report: [facility] , White Blood Count 9.0 4.0-11.0 10 3/uL Red Blood Count 4.03 4.20-5.40 10 6/uL Hemoglobin 11.4 12.0-16.0 g/dL Hematocrit 36.3 36.0-48.0 % Mean Corpuscular Volume 90.1 81.0-99.0 fL Mean Corpuscular Hemoglobin 28.3 26.7-34.0 pg Mean Corpuscular HGB Conc 31.4 29.9-35.2 g/dL Red Cell Distribution Width 15.8 11.0-15.0 % Platelet Count 308 150-450 10 3/uL Mean Platelet Volume 9.8 9.5-13.5 fL Neutrophils Percent Auto 65.8 43.0-75.0 % Lymphocytes Percent Auto 20.0 20.5-60.0 % Monocytes Percent Auto 7.3 1.7-12.0 % Eosinophils Percent Auto 4.1 0.9-7.0 % Basophils Percent Auto 1.1 0.2-2.0 % Immature Granulocytes Pct Auto 1.7 0.0-0.5 % Neutrophils Absolute Auto 5.9 1.4-6.5 10 3/uL Lymphocytes Absolute Auto 1.8 1.2-3.8 10 3/uL Monocytes Absolute Auto 0.7 0.3-0.8 10 3/uL Eosinophils Absolute Auto 0.4 0.0-0.7 10 3/uL Basophils Absolute Auto 0.1 0.0-0.1 10 3/uL Immature Granulocytes Abs Auto 0.15 0.00-0.03 10 3/uL Performing Lab: see note ML - [facility] LB ECG 12 lead Reviewed date:06/12/2024 04:07:12 PM Interpretation: Performing Lab: Notes/Report: Source Facility: [place] [address] [place] [address] Electrocardiograph Report Signed Patient: MARY VICK MR#: [id number] : 1955 Acct:[id number] Age/Sex: 68 / F ADM Date: 06/11/24 Loc: SURGOUT Attending Dr: Raudel Royal M.D. Ordering Physician: Bull Maria M.D. 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 Signed By: 06/11/24 1757 DD/ 1340 TD/TT: Creping Machine Operator: [place] [address] Electrocardiograph Report Signed Patient: CHRISTINA VICK MR#: [id number] : 1955 Acct:[id number] Age/Sex: 68 / F ADM Date: 06/11/24 Loc: SURGOUT Attending Dr: Raudel Royal M.D. Ordering Physician: Bull Maria M.D. 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 Signed By: 06/11/24 5167 DD/ 1340 TD/TT: Creping Machine Operator: JÚNIOR RANDOM W or MICROSCOPIC Reviewed date:06/07/2024 12:42:46 PM Interpretation: Performing Lab: Notes/Report: [facility] , Color Urine YELLOW YELLOW Clarity Urine CLEAR CLEAR Specific [place] Urine >=1.030 1.005-1.025 pH Urine 5.5 5.0-9.0 Protein Urine NEGATIVE NEG/TRACE mg/dL Glucose Urine UA NEGATIVE NEGATIVE mg/dL Bilirubin Urine NEGATIVE NEGATIVE Ketones Urine NEGATIVE NEGATIVE mg/dL Blood Urine NEGATIVE NEGATIVE Nitrite Urine NEGATIVE NEGATIVE Urobilinogen Urine 0.2 0.2-1.0 EU/dL Leukocyte Esterase Urine NEGATIVE NEGATIVE WBC Urine 0-2 NONE SEEN #/HPF RBC Urine 0-2 0-2 #/HPF Bacteria Urine TRACE NONE SEEN #/HPF Mucus Urine NONE SEEN NONE SEEN Squamous Epithelial Cell Urine MODERATE NONE/RARE #/LPF Crystals Seen? Seen None Seen #/HPF Calcium Oxalate Crystals Urine RARE Cast Seen? NONE SEEN NONE SEEN #/LPF Performing Lab: see note ML - [facility] LB PROF 14(COMP METB) Reviewed date:06/07/2024 12:42:46 PM Interpretation: Performing Lab: Notes/Report: [facility] , Sodium 138 136-145 mmol/L Potassium 3.6 3.5-5.1 mmol/L Chloride 105 98-107 mmol/L Carbon Dioxide 25.7 21.0-32.0 mmol/L Anion Gap 10.9 Glucose 122 74-106 mg/dL Blood Urea Nitrogen 16.0 7.0-18.0 mg/dL Creatinine 0.94 0.55-1.02 mg/dL Estimated GFR ( [place] >60 >=60 mL/min/1.73m 2 Estimated GFR (Non- [place] 59 >=60 mL/min/1.73m 2 BUN Creatinine Ratio 17.0 Calcium 8.2 8.5-10.1 mg/dL Bilirubin Total 0.3 0.2-1.0 mg/dL Aspartate Amino Transferase 14 15-37 U/L Alanine Aminotransferase 15 14-59 U/L Alkaline Phosphatase 63 46-116 U/L Total Protein 5.9 6.4-8.2 g/dL Albumin Level 2.7 3.4-5.0 g/dL Globulin 3.2 Albumin Globulin Ratio 0.8 Performing Lab: see note ML - [facility] LB CBC AUTO DIFF Reviewed date:06/07/2024 12:42:46 PM Interpretation: Performing Lab: Notes/Report: [facility] , White Blood Count 7.5 4.0-11.0 10 3/uL Red Blood Count 3.63 4.20-5.40 10 6/uL Hemoglobin 10.5 12.0-16.0 g/dL Hematocrit 33.0 36.0-48.0 % Mean Corpuscular Volume 90.9 81.0-99.0 fL Mean Corpuscular Hemoglobin 28.9 26.7-34.0 pg Mean Corpuscular HGB Conc 31.8 29.9-35.2 g/dL Red Cell Distribution Width 16.3 11.0-15.0 % Platelet Count 272 150-450 10 3/uL Mean Platelet Volume 10.3 9.5-13.5 fL Neutrophils Percent Auto 67.7 43.0-75.0 % Lymphocytes Percent Auto 18.0 20.5-60.0 % Monocytes Percent Auto 9.7 1.7-12.0 % Eosinophils Percent Auto 3.1 0.9-7.0 % Basophils Percent Auto 0.8 0.2-2.0 % Immature Granulocytes Pct Auto 0.7 0.0-0.5 % Neutrophils Absolute Auto 5.1 1.4-6.5 10 3/uL Lymphocytes Absolute Auto 1.4 1.2-3.8 10 3/uL Monocytes Absolute Auto 0.7 0.3-0.8 10 3/uL Eosinophils Absolute Auto 0.2 0.0-0.7 10 3/uL Basophils Absolute Auto 0.1 0.0-0.1 10 3/uL Immature Granulocytes Abs Auto 0.05 0.00-0.03 10 3/uL Performing Lab: see note ML - [facility] LB XR wrist LT min 3V Reviewed date:06/06/2024 10:53:15 AM Interpretation: Performing Lab: Notes/Report: Source Facility: [facility]-[address] [place] [address] [place] [address] XRay Report Signed Patient: MARY VICK MR#: [id number] : 1955 Acct:[id number] Age/Sex: 68 / F ADM Date: 06/06/24 Loc: ER Attending Dr: Ordering Physician: Lesia Holguin D.O. Date of Service: 06/06/24 Procedure(s): XR wrist LT min 3V Accession Number(s): [id number] cc: NATIVIDAD SILVA ; Lesia Holguin D.O. The [place] [address] Patient Name: MARY VICK MRN: [id number] date: 1955 Sex: F Assigned Patient Location: ER Current Patient Location: ER Accession/Order Number: [id number] Exam Date: 06/06/2024 09:14 Report Date: 06/06/2024 10:30 At the request of: LESIA HOLGUIN Procedure: XR wrist LT min 3V HISTORY: Left wrist pain after a fall today. XR wrist LT min 3V: 06/06/2024 9:14 AM EST COMPARISON: None. FINDINGS: The lateral view is degraded by an oblique orientation. There is an oblique, mildly displaced fracture of the base of the ulnar styloid process. There is also an acute comminuted intra-articular fracture of the distal radius. Major distal fracture fragment is displaced dorsally 5 mm. There is also impaction of this fracture of 8 mm. There is volar apex angulation of this fracture of 30 degrees. There is soft tissue swelling of the distal forearm and wrist. No other fracture or dislocation is seen. There are at least moderate degenerative changes of the first carpometacarpal joint and mild degenerative changes of the triscaphe joint. The bones are osteoporotic. XR/XR wrist LT min 3V IMPRESSION: 1. Acute comminuted, intra-articular fracture of the distal radius with displacement and impaction as described above. 2. Acute, mildly displaced rupture of the base of the ulnar styloid process. 3. Osteoporosis. Electronically authenticated by: TRAVIS CHRISTIANSON Date: 06/06/2024 10:30 Dictated By: Travis Christianson M.D. Signed By: 06/06/24 1033 DD/ 1030 TD/TT: Creping Machine Operator: [place] [address] XRay Report Signed Patient: CHRISTINA VICK MR#: [id number] : 1955 Acct:[id number] Age/Sex: 68 / F ADM Date: 06/06/24 Loc: ER Attending Dr: Ordering Physician: Lesia Holguin D.O. Date of Service: 06/06/24 Procedure(s): XR wri st LT min 3V Accession Number(s): [id number] cc: NATIVIDAD SILVA ; Lesia Holguin D.O. [place] [address] Patient Name: MARY VICK MRN: [id number] date: 1955 Sex: F Assigned Patient Location: ER Current Patient Loca tion: ER Accession/Order Numb er: [id number] Exam Date: 06/06/2024 09:14 Report Date: 06/06/2024 10:30 At the request of: LESIA HOLGUIN Procedure: XR wrist LT min 3V HISTORY: Left wrist pain after a fall today. XR wrist LT min 3V: 06/06/2024 9:14 AM EST COMPARISON: None. FINDINGS: The latera l view is degraded by an oblique orientation. There is an oblique, mildly disp laced fracture of the base of the ulnar styloid process. There is also an acu te comminuted intra-articular fracture of the distal radius. Major distal fracture fragment is displaced dorsally 5 mm. There is also impaction of th is fracture of 8 mm. There is volar apex angulation of this fracture of 30 degre es. There is soft tissue swelling of the distal forearm and wrist. No other frac ture or dislocation is seen. There are at least moderate degenerative changes of the first carpometacarpal joint and mild degenerative changes of the trisc aphe joint. The bones are osteoporotic. X R/XR wrist LT min 3V IMPRESSION: 1. Acute comminuted, intra-articular fracture of the distal radius with displacement and impaction as described above. 2. Acute, mildly displaced rupture of the base of the ulnar styloid process. 3. Osteoporosis. Electronically authenticated by: TRAVIS CHRISTIANSON Date: 06/06/2024 10:30 Dictated By: Travis Christianson M.D. Signed By: 06/06/24 1033 DD/ 1030 TD/TT: Creping Machine Operator: CT FACIAL BONES WO CON Reviewed date:06/06/2024 06:59:30 PM Interpretation: Performing Lab: Notes/Report: Source Facility: [place] [address] CT Scan Report Signed Patient: MARY VICK MR#: [id number] : 1955 Acct:[id number] Age/Sex: 68 / F ADM Date: 06/06/24 Loc: MS 220-[address]: Travis Townsend M.D. Ordering Physician: Lesia Holguin D.O. Date of Service: 06/06/24 Procedure(s): CT facial bones wo con Accession Number(s): [id number] cc: NATIVIDAD SILVA [place] [address] Patient Name: MARY VICK MRN: [id number] date: 1955 Sex: F Assigned Patient Location: ER Current Patient Location: [place] Accession/Order Number: [id number] Exam Date: 06/06/2024 09:14 Report Date: 06/06/2024 15:15 At the request of: LESIA HOLGUIN Procedure: CT facial bones wo con CT maxillofacial bones without contrast, 06/06/2024. HISTORY: Fall. Facial trauma. COMPARISON: None. TECHNIQUE: Noncontrast axial CT images obtained through the maxillofacial bones. Reconstructions obtained in the sagittal and coronal planes. Dose reduction techniques were achieved by using automated exposure control and/or adjustment of mA and/or kV according to patient size and/or use of iterative reconstruction technique. FINDINGS: The nasal bones are intact. Zygomatic arches are intact. The orbital lorenzana are intact. The lorenzana of the maxillary sinuses are intact. No maxillary fracture. The patient is edentulous. No mandible fracture. 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 Prior cataract surgery. There is no intraorbital hematoma. No soft tissue swelling appreciated in the face. There is some edema along the chin. No radiopaque foreign body. No soft tissue hematoma. The tongue and floor of the mouth appear normal. Nasopharynx, oropharynx, and retropharyngeal space are normal. CT/CT facial bones wo con IMPRESSION: 1. There is some mild edema and swelling along the chin. No radiopaque foreign body. 2. No mandibular fracture. 3. No acute maxillofacial bone fracture. Electronically authenticated by: OLEG QUINTANA Date: 06/06/2024 15:15 Dictated By: Oleg Quintana M.D. Signed By: 06/06/247 DD/ 14 TD/TT: Creping Machine Operator: [place] [address] CT Scan Report Signed Patient: CHRISTINA VICK MR#: [id number] : 1955 Acct:[id number] Age/Sex: 68 / F ADM Date: 06/06/24 Loc: MS 220-[address]: Ga Townsend M.D. Ordering Physician: Lesia Holguin D.O. Date of Service: 06/06/24 Procedure(s): CT fac ial bones wo con Accession Number(s): [id number] cc: NATIVIDAD SILVA [place] [address] Patient Name: MARY VICK MRN: [id number] date: 1955 Sex: F Assigned Patient Location: ER Current Patient Loca tion: [place] Accession/Order Numb er: [id number] Exam Date: 06/06/2024 09:14 Report Date: 06/06/2024 15:15 At the request of: LESIA HOLGUIN Procedure: CT facial bones wo con CT maxillofacial bon es without contrast, 06/06/2024. HISTORY: Fall. Facia l trauma. COMPARISON: None. TECHNIQUE: Noncontra st axial CT images obtained through the maxillofacial bones. Reconstructio ns obtained in the sagittal and coronal planes. Dose reduction techniques were achieved by using automated exposure control and/or adjustment of mA and /or kV according to patient size and/or use of iterative reconstruction technique. FINDINGS: The nasal bones are intact. Zygomatic arches are intact. The orbital lorenzana are intact. Th e lorenzana of the maxillary sinuses are intact. No maxillary fracture. The patien t is edentulous. No mandible fracture. Severe osteoarthritis invol ving the temporomandibular joints bilaterally. Prior cataract surge ry. There is no intraorbital hematoma. No soft tissue swelling appreciated in the face. There is some edema along the chin. No radiopaque foreign b carlos. No soft tissue hematoma. The tongue and floor of the mouth appear normal. Nasopharynx, oropharynx, and retropharyngeal space are normal. C T/CT facial bones wo con IMPRESSION: 1. There is some mil d edema and swelling along the chin. No radiopaque foreign body. 2. No mandibular fracture. 3. No acute maxillof acial bone fracture. Electronically authenticated by: OLEG QUINTANA Date: 06/06/2024 15:15 Dictated By: Sharee Quintana M.D. Signed By: 06/06/24 1517 DD/ 1515 TD/TT: Creping Machine Operator: LIPID PROFILE Reviewed date:05/03/2024 11:25:54 AM Interpretation: Performing Lab: Notes/Report: [facility] , Triglycerides 74 <=150 mg/dL Cholesterol 206 <=200 mg/dL HDL Cholesterol 72 40-60 mg/dL > or =60 mg/dl - LOW CARDIOVASCULAR RISK <40 mg/dl - HIGH CARDIOVASCULAR RISK LDL Cholesterol Calculated 120.0 <100 mg/dl OPTIMAL 100-129 mg/dl NEAR OR ABOVE OPTIMAL 130-159 mg/dl BORDERLINE HIGH 160-189 mg/dl HIGH >190 mg/dl VERY HIGH VLDL CHOLESTEROL 14.8 Chol HDL Ratio 2.9 3.3 - 4.4 LOW RISK 4.4 - 7.1 AVERAGE RISK 7.1 - 11.0 MODERATE RISK >11.0 HIGH RISK Performing Lab: see note ML - [facility] CT head/brain wo con Reviewed date:03/19/2024 08:22:34 AM Interpretation: Performing Lab: Notes/Report: Source Facility: [place] [address] CT Scan Report Signed Patient: MARY VICK MR#: [id number] : 1955 Acct:[id number] Age/Sex: 68 / F ADM Date: 03/18/24 Loc: ER Attending Dr: Ordering Physician: Catherine Bales Date of Service: 03/18/24 Procedure(s): CT head/brain wo con Accession Number(s): [id number] cc: NATIVIDAD SILVA [place] [address] Patient Name: MARY VICK MRN: [id number] date: 1955 Sex: F Assigned Patient Location: ED.MAIN Current Patient Location: ED.MAIN Accession/Order Number: [id number] Exam Date: 03/18/2024 18:35 Report Date: 03/18/2024 19:20 At the request of: CATHERINE BALES Procedure: CT head/brain wo con EXAMINATION: CT head/brain wo con HISTORY: resistant headache . COMPARISON: No relevant comparison available. TECHNIQUE: Axial CT images were obtained without IV contrast. Dose reduction techniques were achieved by using automated exposure control and/or adjustment of mA and/or kV according to patient size and/or use of iterative reconstruction technique. FINDINGS: BRAIN: No edema, hemorrhage, mass, acute infarction, or inappropriate atrophy. CSF SPACES: No hydrocephalus, subarachnoid hemorrhage, or mass. Appropriate for age. SKULL: No fracture, mass, or other significant visible lesion. SINUSES: No significant mucosal thickening or fluid on the limited views. ORBITS: No appreciable abnormality on the limited views. OTHER: Negative CT/CT head/brain wo con IMPRESSION: 1. No acute cranial hemorrhage or appreciable abnormality to account for patient's symptoms. 2. Mild, age consistent chronic changes. Electronically authenticated by: RAUDEL WHEAT Date: 03/18/2024 19:20 Dictated By: Raudel Wheat M.D. Signed By: 03/18/241922 DD/ 19 TD/TT: Creping Machine Operator: [place] [address] CT Scan Report Signed Patient: CHRISTINA VICK MR#: [id number] : 1955 Acct:[id number] Age/Sex: 68 / F ADM Date: 03/18/24 Loc: ER Attending Dr: Ordering Physician: Catherine Bales Date of Service: 03/18/24 Procedure(s): CT head/brain wo con Accession Number(s): [id number] cc: NATIVIDAD SILVA [place] [id number] Patient Name: MARY VICK MRN: [id number] date: 1955 Sex: F Assigned Patient Location: ED.MAIN Current Patient Loca tion: ED.MAIN Accession/Order Andre er: [id number] Exam Date: 18:35 Report Date: 03/18/2024 19:20 At the request of: CATHERINE BALES Procedure: CT head/b rain wo con EXAMINATION: CT head/brain wo con HISTORY: resistant headache . COMPARISON: No relev ant comparison available. TECHNIQUE: Axial CT images were obtained without IV contrast. Dose reduction techniques were achi eved by using automated exposure control and/or adjustment of mA and/or kV acco rding to patient size and/or use of iterative reconstruction technique. FINDINGS: BRAIN: No edema, hemorrhage, mass, acute infarction, or inappropriate atrophy. CSF SPACES: No hydrocephalus, subarachnoid hemorrhage, or mass. Appropriate for age. SKULL: No fracture, mass, or other significant visible lesion. SINUSES: No signific ant mucosal thickening or fluid on the limited views. ORBITS: No appreciab le abnormality on the limited views. OTHER: Negative C T/CT head/brain wo con IMPRESSION: 1. No acute cranial hemorrhage or appreciable abnormality to account for patient's symptoms. 2. Mild, age consist ent chronic changes. Electronically authenticated by: RAUDEL WHEAT Date: 03/18/2024 19:20 Dictated By: Raudel Wheat M.D. Signed By: 03/18/241922 DD/ 19 TD/TT: Creping Machine Operator: TSH Reviewed date:01/27/2024 03:58:27 PM Interpretation: Performing Lab: Notes/Report: [facility] , Thyroid Stimulating Hormone 1.550 0.358-3.740 uIU/mL Performing Lab: see note ML - [facility] LB T4 Reviewed date:01/27/2024 03:58:27 PM Interpretation: Performing Lab: Notes/Report: [facility] , T4 Thyroxine 8.30 4.80-13.90 ug/dL Performing Lab: see note ML - [facility] LB FREE T3 Reviewed date:01/27/2024 03:58:27 PM Interpretation: Performing Lab: Notes/Report: [facility] , Free T3 1.30 2.18-3.98 pg/mL Performing Lab: see note ML - [facility] LB NM arlyn perf SPECT rest str Reviewed date:11/23/2023 01:03:00 PM Interpretation: Performing Lab: Notes/Report: Source Facility: [facility]-[address] [place] [address] [place] [address] Nuclear Medicine Report Signed Patient: MARY VICK MR#: [id number] : 1955 Acct:[id number] Age/Sex: 68 / F ADM Date: 11/21/23 Loc: CARD Attending Dr: Miriam Saenz M.D. Ordering Physician: Miriam Saenz M.D. Date of Service: 11/21/23 Procedure(s): NM arlyn perf SPECT rest str Accession Number(s): [id number] cc: NATIVIDAD SILVA ; Miriam Saenz M.D. Patient Name: MARY VICK MR#: [id number] : 1955 Exam Date: 11/21/2023 Ordering Doctor: DR Miriam Saenz M.D. RADIOLOGY REPORT PROCEDURE: NM ARLYN PERF SPECT REST STR COMPARISON: None. INDICATIONS: CHEST PAIN, UNSPECIFIED TECHNIQUE: Exam Description: Stress/Rest one day protocol gated SPECT Rest Imagin.0 mCi Tc-99m Cardiolite IV on 11/21/2023 Stress Imaging 32.0 mCi Tc-99m Cardiolite IV on 11/21/2023 Exercise Protocol: 0.4 mg Lexiscan given IV Heart Rate (bpm): Rest: 49 Max: 78 PMHR: 52 Blood Pressure: Rest: 110/76 Max: 160/76 Symptoms: Rest and peak stress ECG findings were pending and the exercise portion of the study was pending per attending physician Dr. PETERS . For more details please see separate cardiac stress test report. FINDINGS: QUALITY OF STUDY: Excellent. PERFUSION DEFECT: None. LOCATION: N/A SIZE: N/A. SEVERITY: N/A. TYPE: N/A. WALL MOTION: Normal. LV SIZE: Normal. 116 mL. TID / TCD: None; 0.9 LVEF: Normal. Calculated EF 73%. SUMMARY: Myocardial perfusion imaging study is NORMAL. CONCLUSION: 1. Normal nuclear medicine myocardial perfusion scan. Dictated by: Raudel Wheat M.D. on 11/22/2023 at 14:08 Approved by: Raudel Wheat M.D. on 11/22/2023 at 14:10 Dictated By: Raudel Wheat M.D. Signed By: 11/22/23 1411 DD/ 141 TD/TT: Creping Machine Operator: [place] [address] Nuclear Medicine Report Signed Patient: CHRISTINA VICK MR#: [id number] : 1955 Acct:[id number] Age/Sex: 68 / F ADM Date: 11/21/23 Loc: CARD Attending Dr: Miriam Saenz M.D. Ordering Physician: Miriam Saenz M.D. Date of Service: 11/21/23 Procedure(s): NM arlyn perf SPECT rest str Accession Number(s): [id number] cc: NATIVIDAD SILVA ; Miriam Saenz M.D. Patient Name: MARY VICK MR#: [id number] : 1955 Exam Date: 11/21/2023 Ordering Doctor: DR Miriam Saenz M.D. RADIOLOGY REPORT PROCEDURE: NM ARLYN PE RF SPECT REST STR COMPARISON: None. INDICATIONS: CHEST P AIN, UNSPECIFIED TECHNIQUE: Exam Description: Stress/Rest one day protocol gated SPECT Rest Imagin.0 m Ci Tc-99m Cardiolite IV on 11/21/2023 Stress Imaging 32.0 mCi Tc-99m Cardiolite IV on 11/21/2023 Exercise Protocol: 0 .4 mg Lexiscan given IV Heart Rate (bpm): Re st: 49 Max: 78 PMHR: 52 Blood Pressure: Rest : 110/76 Max: 160/76 Symptoms: Rest and peak stress ECG findings were pending and the exercise portion of the study was pending pe r attending physician Dr. PETERS . For more details please see separate cardiac stress test report. FINDINGS: QUALITY OF STUDY: Excellent. PERFUSION DEFECT: None. LOCATION: N/A SIZE: N/A. SEVERITY: N/A. TYPE: N/A. WALL MOTION: Normal. LV SIZE: Normal. 116 mL. TID / TCD: None; 0.9 LVEF: Normal. Calcul ated EF 73%. SUMMARY: Myocardial perfusion imaging study is NORMAL. CONCLUSION: 1. Normal nuclear medicine myocardial perfusion scan. Dictated by: Raudel Wheat M.D. on 11/22/2023 at 14:08 Approved by: Raudel Wheat M.D. on 11/22/2023 at 14:10 Dictated By: Raudel Wheat M.D. Signed By: 11/22/23 1411 DD/ 10 TD/TT: Creping Machine Operator: DIEGO echo doppler complete Reviewed date:11/22/2023 12:39:04 PM Interpretation: Performing Lab: Notes/Report: Source Facility: [place] [address] [place] [address] Cardiology Report Signed Patient: MARY VICK MR#: [id number] : 1955 Acct:[id number] Age/Sex: 68 / F ADM Date: 11/21/23 Loc: CARD Attending Dr: Miriam Saenz M.D. Ordering Physician: Miriam Saenz M.D. Date of Service: 11/21/23 Procedure(s): CA echo doppler complete Accession Number(s): [id number] cc: NATIVIDAD SILVA ; Miriam Saenz M.D. Patient Name Site Name MARY VICK [facility] Account No Medical Record Number Age Sex Date Time [id number] F 11/21/2023 07:30 At the Request Of Miriam Saenz ECHOCARDIOGRAM REPORT PROCEDURE: CA ECHO DOPPLER COMPLETE INDICATIONS: palpitations, chest pain COMPARISON: None. DESCRIPTION: COMPLETE ECHOCARDIOGRAM Real-time transthoracic echocardiography with 2D, M-mode, spectral and color flow Doppler performed. QUALITY: Technical quality was good. LEFT VENTRICLE: Normal chamber size. Mild concentric left ventricular hypertrophy. Global left ventricular systolic function is normal. LV EF: Estimated left ventricular ejection fraction is 60-65%. DIASTOLIC: Diastolic function is indeterminate. ATRIAL SEPTUM: LEFT ATRIUM: Severe dilatation. RIGHT ATRIUM: Mild dilatation. RIGHT VENTRICLE: Normal chamber size. Normal right ventricular systolic function. TRICUSPID VALVE: Normal mobility and thickness. No stenosis with trivial regurgitation. Mild pulmonary hypertension. RVSP 35 mmHg MITRAL VALVE: Normal mobility and thickness. Mild mitral annular calcification. Trivial mitral regurgitation. AORTIC VALVE: Normal trileaflet appearance. No visible sclerosis. Normal leaflet mobility. No evidence of aortic valve stenosis. Mild to moderate aortic regurgitation. AORTIC ROOT: Normal diameter and appearance. PULMONIC VALVE: Normal thickness and mobility. No stenosis. Mild regurgitation. PERICARDIUM: No evidence of pericardial effusion. IVC: Collapses with inspirations. Mild dilatation measuring 2.5 cm. PLEURA: CONCLUSION: 1. Mild concentric left ventricular hypertrophy with normal systolic function. 2. Normal right ventricular size and systolic function. 3. Severe left atrial dilatation. 4. Trileaflet aortic valve with mild to moderate regurgitation and no stenosis. 5. Mildly elevated right-sided pressures. RVSP is 35 mmHg. Adult Echocardiography Procedure Report Left Ventricle LVEDD (3.7 - 5.6 cm): 5.03 cm LVESD (2.2 - 4.0 cm): 3.26 cm LVIVS thickness (0.6 - 1.2 cm): 1.05 cm LVPW thickness (0.5 - 1.0 cm): 1.06 cm e': 0.10 m/s E - e': 8.79 LVOT Max Gradient: 3.56 mm[Hg] LVOT Area (cm2): 0.94 m/s Peak Velocity (LVOT): 0.94 m/s Mean Velocity (LVOT): 0.63 m/s LVOT Diameter 1.96 cm Left Ventricular Ejection Fraction: 60-65 % Left Atrium LA Volume Index (2D A2C): 84.46 ml/m2 Left Atrium Systolic Dimension: 3.40 cm Mitral Valve MV E to A Ratio: 0.81 Mitral Valve A-Wave Peak Velocity: 1.04 m/s Mitral Valve E-Wave Peak Velocity: 0.84 m/s Right Ventricle RV Internal Diastolic Dimension: 3.98 cm Aorta AO Root Diam: 3.01 cm Ascending Ao Diam: 3.19 cm Aortic Valve AoV Area (Peak Scar): 1.91 cm2, 1.91 cm2 AoV Area (VTI): 2.03 cm2, 2.03 cm2 Deceleration Swain: 1.63 m/s2, 1.75 m/s2 Pressure Half-Time: 721.48 ms, 659.74 ms Peak Velocity(Antegrade Flow): 1.48 m/s Peak Gradient(Antegrade Flow): 8.80 mm[Hg] Mean Velocity(Antegrade Flow): 0.99 m/s Mean Gradient(Antegrade Flow): 4.42 mm[Hg] Velocity Time Integral: 40.89 cm Tricuspid Valve Peak Velocity (Regurgitant Flow): 2.14 m/s, 2.50 m/s, 2.62 m/s Pulmonic Valve Mean Gradient: 2.83 mm[Hg], 2.95 mm[Hg] Mean Velocity: 0.79 m/s, 0.81 m/s Peak Velocity: 1.17 m/s Peak Gradient: 5.70 mm[Hg], 5.33 mm[Hg] Right Atrium Right Atrium Systolic Pressure: 59.17 ml, 59.17 ml Dictated by: Effie Cook M.D. on 11/21/2023 at 13:08 Approved by: Effie Cook M.D. on 11/21/2023 at 13:13 Dictated By: EFFIE COOK Signed By: 11/21/23 1315 DD/ 1313 TD/TT: Creping Machine Operator: [place] [address] Cardiology Report Signed Patient: CHRISTINA VICK MR#: [id number] : 1955 Acct:[id number] Age/Sex: 68 / F ADM Date: 11/21/23 Loc: CARD Attending Dr: Miriam Saenz M.D. Ordering Physician: Miriam Saenz M.D. Date of Service: 11/21/23 Procedure(s): CA ech o doppler complete Accession Number(s): [id number] cc: NATIVIDAD SILVA ; Miriam Saenz M.D. Patient Name Site Name MARY VICK [facility] Account No Medical R ecord Number Age Sex Date Time [id number] [id number] F 11/21/2023 07:30 At the Request Of Miriam Saenz ECHOCARDIOGRAM REPORT PROCEDURE: CA ECHO DOPPLER COMPLETE INDICATIONS: palpitations, chest pain COMPARISON: None. DESCRIPTION: COMPLE TE ECHOCARDIOGRAM Real-time transthoracic echocardiography wit h 2D, M-mode, spectral and color flow Doppler performed. QUALITY: Technical quality was good. LEFT VENTRICLE: Norm al chamber size. Mild concentric left ventricular hypertrophy. Global left ventricular systolic function is normal. LV EF: Estimated lef t ventricular ejection fraction is 60-65%. DIASTOLIC: Diastolic function is indeterminate. ATRIAL SEPTUM: LEFT ATRIUM: Severe dilatation. RIGHT ATRIUM: Mild dilatation. RIGHT VENTRICLE: Nor mal chamber size. Normal right ventricular systolic function. TRICUSPID VALVE: Nor mal mobility and thickness. No stenosis with trivial regurgitation. Mild pulmonary hypertension. RVSP 35 mmHg MITRAL VALVE: Normal mobility and thickness. Mild mitral annular calcification. Trivi al mitral regurgitation. AORTIC VALVE: Normal trileaflet appearance. No visible sclerosis. Normal leaflet mobility. No evidence of aortic valve stenosis. Mild to moderate aortic regurgitation. AORTIC ROOT: Normal diameter and appearance. PULMONIC VALVE: Norm al thickness and mobility. No stenosis. Mild regurgitation. PERICARDIUM: No evid ence of pericardial effusion. IVC: Collapses with inspirations. Mild dilatation measuring 2.5 cm. PLEURA: CONCLUSION: 1. Mild concentric l eft ventricular hypertrophy with normal systolic function. 2. Normal right ventricular size and systolic function. 3. Severe left atria l dilatation. 4. Trileaflet aortic valve with mild to moderate regurgitation and no stenosis. 5. Mildly elevated right-sided pressures. RVSP is 35 mmHg. Adult Echocardiograp hy Procedure Report Left Ventricle LVEDD (3.7 - 5.6 cm) : 5.03 cm LVESD (2.2 - 4.0 cm) : 3.26 cm LVIVS thickness (0.6 - 1.2 cm): 1.05 cm LVPW thickness (0.5 - 1.0 cm): 1.06 cm e': 0.10 m/s E - e': 8.79 LVOT Max Gradient: 3.56 mm[Hg] LVOT Area (cm2): 0.94 m/s Peak Velocity (LVOT) : 0.94 m/s Mean Velocity (LVOT) : 0.63 m/s LVOT Diameter 1.96 cm Left Ventricular Eje ction Fraction: 60-65 % Left Atrium LA Volume Index (2D A2C): 84.46 ml/m2 Left Atrium Systolic Dimension: 3.40 cm Mitral Valve MV E to A Ratio: 0.81 Mitral Valve A-Wave Peak Velocity: 1.04 m/s Mitral Valve E-Wave Peak Velocity: 0.84 m/s Right Ventricle RV Internal Diastoli c Dimension: 3.98 cm Aorta AO Root Diam: 3.01 cm Ascending Ao Diam: 3 .19 cm Aortic Valve AoV Area (Peak Scar): 1.91 cm2, 1.91 cm2 AoV Area (VTI): 2.03 cm2, 2.03 cm2 Deceleration Swain: 1.63 m/s2, 1.75 m/s2 Pressure Half-Time: 721.48 ms, 659.74 ms Peak Velocity(Antegr grace Flow): 1.48 m/s Peak Gradient(Antegr grace Flow): 8.80 mm[Hg] Mean Velocity(Antegr grace Flow): 0.99 m/s Mean Gradient(Antegr grace Flow): 4.42 mm[Hg] Velocity Time Integr al: 40.89 cm Tricuspid Valve Peak Velocity (Regurgitant Flow): 2.14 m/s, 2.50 m/s, 2.62 m/s Pulmonic Valve Mean Gradient: 2.83 mm[Hg], 2.95 mm[Hg] Mean Velocity: 0.79 m/s, 0.81 m/s Peak Velocity: 1.17 m/s Peak Gradient: 5.70 mm[Hg], 5.33 mm[Hg] Right Atrium Right Atrium Systoli c Pressure: 59.17 ml, 59.17 ml Dictated by: Effie Cook M.D. on 11/21/2023 at 13:08 Approved by: Effie Cook M.D. on 11/21/2023 at 13:13 Dictated By: EFFIE COOK Signed By: 11/21/231314 DD/ 12 TD/TT: Creping Machine Operator: SUBHA Reviewed date:01/27/2024 03:58:27 PM Interpretation: Performing Lab: Notes/Report: [facility] , Iron 24.0 50.0-170.0 ug/dL Performing Lab: see note ML - [facility] LB XR wrist LT min 3V Reviewed date:09/10/2024 10:40:29 AM Interpretation: Performing Lab: Notes/Report: Source Facility: [facility]-[address] [place] [address] XRay Report Signed Patient: MARY VICK MR#: [id number] : 1955 Acct:[id number] Age/Sex: 69 / F ADM Date: 09/10/24 Loc: EC Attending Dr: Raudel Royal M.D. Ordering Physician: Raudel Royal M.D. Date of Service: 09/10/24 Procedure(s): XR wrist LT min 3V Accession Number(s): [id number] cc: NATIVIDAD SILVA ; Raudel Royal M.D. [place] [address] Patient Name: MARY VICK MRN: [id number] date: 1955 Sex: F Assigned Patient Location: EC Current Patient Location: Accession/Order Number: [id number] Exam Date: 09/10/2024 10:26 Report Date: 09/10/2024 10:27 At the request of: RAUDEL ROYAL MD Procedure: XR wrist LT min 3V 3 views left wrist plain film COMPARISON: 08/13/2024 HISTORY: Follow-up left wrist ORIF ACUTE FINDINGS: Continued healing. Stable alignment. DEGENERATIVE CHANGE: Unremarkable SOFT TISSUE FINDINGS: Unremarkable JOINT EFFUSION: None POSTOP CHANGES: No hardware failure. BONE MINERALIZATION: Adequate XR/XR wrist LT min 3V IMPRESSION: Healing fracture with stable alignment and hardware. Impression dictated by: Ghanshyam Mendez M.D.09/10/2024 10:27 AM Dictation Location: [place] [address] Electronically authenticated by: [id number] Y Date: 09/10/2024 10:27 Dictated By: Ghanshyam Mendez D.O. Signed By: 09/10/24 1029 DD/ 1027 TD/TT: Creping Machine Operator: [place] [address] XRay Report Signed Patient: CHRISTINA VICK MR#: [id number] : 1955 Acct:[id number] Age/Sex: 69 / F ADM Date: 09/10/24 Loc: Attending Dr: Raudel Royal M.D. Ordering Physician: Raudel Royal M.D. Date of Service: 09/10/24 Procedure(s): XR wri st LT min 3V Accession Number(s): [id number] cc: NATIVIDAD SILVA ; Raudel Royal M.D. The [place] [id number] Patient Name: MARY VICK MRN: [id number] date: 1955 Sex: F Assigned Patient Location: Current Patient Loca tion: EC Accession/Order Numb er: [id number] Exam Date: 09/10/2024 10:26 Report Date: 09/10/2024 10:27 At the request of: RAUDEL ROYAL MD Procedure: XR wrist LT min 3V 3 views left wrist p linda film COMPARISON: 08/13/2024 HISTORY: Follow-up l eft wrist ORIF ACUTE FINDINGS: Cont inued healing. Stable alignment. DEGENERATIVE CHANGE: Unremarkable SOFT TISSUE FINDINGS : Unremarkable JOINT EFFUSION: None POSTOP CHANGES: No hardware failure. BONE MINERALIZATION: Adequate X R/XR wrist LT min 3V IMPRESSION: Healing fracture with stable alignment and hardware. Impression dictated by: Ghanshyam Mendez M.D.09/10/2024 10:27 AM Dictation Location: [place] [address] Electronically authenticated by: [id number] Y Date: 09/10/2024 10:27 Dictated By: Kenn Mendez D.O. Signed By: 09/10/24 1029 DD/ 1027 TD/TT: Creping Machine Operator: XR wrist LT min 3V Reviewed date:08/13/2024 04:11:06 PM Interpretation: Performing Lab: Notes/Report: Source Facility: [place] [address] XRay Report Signed Patient: MARY VICK MR#: [id number] : 1955 Acct:[id number] Age/Sex: 69 / F ADM Date: 08/13/24 Loc: Attending Dr: Raudel Royal M.D. Ordering Physician: Raudel Royal M.D. Date of Service: 08/13/24 Procedure(s): XR wrist LT min 3V Accession Number(s): [id number] cc: NATIVIDAD SILVA ; Raudel Royal M.D. The [place] [address] Patient Name: MARY VICK MRN: [id number] date: 1955 Sex: F Assigned Patient Location: Current Patient Location: Accession/Order Number: [id number] Exam Date: 08/13/2024 14:03 Report Date: 08/13/2024 14:04 At the request of: RAUDEL ROYAL MD Procedure: XR wrist LT min 3V LEFT WRIST - 3 views CLINICAL HISTORY: Closed displaced fracture of styloid process of left ulna COMPARISON: Left wrist 07/16/2024 FINDINGS: No hardware complication. Distal radius fracture is grossly unchanged. Distal ulnar fracture is less conspicuous suggestive of healing response. XR/XR wrist LT min 3V IMPRESSION: DISTAL RADIUS FRACTURE IS UNCHANGED WITHOUT EVIDENCE OF HARDWARE COMPLICATION. HEALING DISTAL ULNAR FRACTURE. Impression dictated by: Travis Borrero Jr., D.O.08/13/2024 2:04 PM Dictation Location: [place] [address] Electronically authenticated by: [id number] Y Date: 08/13/2024 14:04 Dictated By: Travis Borrero M.D. Signed By: 08/13/241406 DD/ 03 TD/TT: Creping Machine Operator: [place] [address] XRay Report Signed Patient: CHRISTINA VICK MR#: [id number] : 1955 Acct:[id number] Age/Sex: 69 / F ADM Date: 08/13/24 Loc: EC Attending Dr: Raudel Royal M.D. Ordering Physician: Raudel Royal M.D. Date of Service: 08/13/24 Procedure(s): XR wri st LT min 3V Accession Number(s): [id number] cc: NATIVIDAD SILVA ; Raudel Royal M.D. The [place] [id number] Patient Name: MARY VICK MRN: [id number] date: 1955 Sex: F Assigned Patient Location: EC Current Patient Loca tion: EC Accession/Order Numb er: [id number] Exam Date: 08/13/2024 14:03 Report Date: 08/13/2024 14:04 At the request of: RAUDEL ROYAL MD Procedure: XR wrist LT min 3V LEFT WRIST - 3 views CLINICAL HISTORY: Cl osed displaced fracture of styloid process of left ulna COMPARISON: Left wri st 07/16/2024 FINDINGS: No hardware complica tion. Distal radius fracture is grossly unchanged. Distal ulnar fractur e is less conspicuous suggestive of healing response. X R/XR wrist LT min 3V IMPRESSION: DISTAL RADIUS FRACTU RE IS UNCHANGED WITHOUT EVIDENCE OF HARDWARE COMPLICATION. HEALING DISTAL ULNAR FRACTURE. Impression dictated by: Travis Borrero Jr., D.O.08/13/2024 2:04 PM Dictation Location: [place] [address] Electronically authenticated by: [id number] Y Date: 08/13/2024 14:04 Dictated By: Travis Borrero M.D. Signed By: 08/13/24 1407 DD/ 1404 TD/TT: Creping Machine Operator: Reason For Referral Diagnosis 1 Screening for colon cancer (Z12.11) Referral Organization [facility] Referring Provider First Name José Referring Provider Last Name Kristian Referring Provider Speciality Family Med araceli Referred Provider Ash Parson Referred Provider Specialty General Surg kamala Referral Priority Routine Medications Medication SIG (Take, Route, Frequency, Duration) Notes Start Date End Date Status Omeprazole 20 MG 1 capsule 1/2 to 1 hour before morning meal Orally BID for 30 days 08/27/2024 Active Baclofen 5 MG 1 -2 tablet as neede d Orally Once a day for 14 days 02/29/2024 Active Ondansetron HCl 4 MG 1 tablet Orally Onc e a day prn for 14 days 02/29/2024 Active Diclofenac Sodium 50 MG 1 tablet Orally Twice a day Active Omeprazole Magnesium 20 MG 1 tablet 1/2 to 1 hour before morning meal Orally Once a day for 30 days Active PROzac 20 MG 4 capsule Orally onc e daily for 90 days Active Ferrous Sulfate 325 (65 Fe) MG 1 tablet Orally Three times a Week for 30 days 01/31/2024 Active oxyCODONE-Acetaminophen 5-325 MG Oral for 30 Days Active Trelegy Ellipta 100-62.5-25 MCG/ACT 1 puff Inhalation Once a day for 30 days 04/09/2024 Active Levothyroxine Sodium 50 MCG 1 tablet in the morning on an empty stomach Orally Once a day Active rOPINIRole HCl 1 MG 1 tablet 1 to 3 hour s before bedtime Orally Once a day for 30 days Active Abilify 30 MG 1 tablet Orally Once a day for 90 days Active Lisinopril 20 MG 1 tablet Orally Once a day Active Zepbound 2.5 MG/0.5ML 0.5 mL Subcutaneou s for 30 days call for next dose 05/01/2024 Active Amitriptyline HCl 50 mg TAKE 1 TABLET BY MOUTH AT BEDTIME for 30 Active Immunizations Vaccine Route Administration Date Status Comme nts Flu, Fluzone High-Dose (9066 2) 65 yrs+ (2497-4997) Unknown 02/12/2022 Administered Pneumococcal (Pneumovax 23) Unknown 02/25/2014 Administ ered Pneumococcal (Prevnar 13) Unknown 02/28/2018 Administer ed Pneumococcal (Prevnar 13) Unknown 02/02/2020 Administer ed Pneumococcal (Prevnar 20) Unknown 09/18/2021 Administer ed Pneumococcal (Prevnar 20) Unknown 09/18/2021 Administer ed SARS-COV-2 (COVID 19) bivale nt 30 mcg/0.3 ml dose Unknown 07/09/2022 Administered Tdap (Boostrix) Unknown 11/25/2021 Administered Zoster (Zostavax) Unknown 02/27/2016 Administered Social History Tobacco Use: Social History Observation Description Date Details (start date - stop date) Former Smoker 05/23/1967 - 05/23/2020 Tobacco Use/Smoking Question Answer Notes Patient is a former smoker When did you start smoking? 05/23/1967 When did you stop smoking? 05/23/2020 How long has it been since you last smoked? 1-5 years Alcohol Screen (Audit-C) Question Answer Notes Did you have a drink containing alcohol in the p ast year? No Points 0 Interpretation Negative AUDIT-C (Standard) Question Answer Notes Did you have a drink containing alcohol in the p ast year? No Points 0 Interpretation Negative Section Notes: Smoking on and off from 30 y ears until passed- then picked it back up- quit in 2020 Smoking on and off from 30 y ears until passed- then picked it back up- quit in 2020 Smoking on and off from 30 y ears until passed- then picked it back up- quit in 2020 Smoking on and off from 30 y ears until passed- then picked it back up- quit in 2020 Smoking on and off from 30 y ears until passed- then picked it back up- quit in 2020 Smoking on and off from 30 y ears until passed- then picked it back up- quit in 2020 Smoking on and off from 30 y ears until passed- then picked it back up- quit in 2020 Smoking on and off from 30 y ears until passed- then picked it back up- quit in 2020 Smoking on and off from 30 y ears until passed- then picked it back up- quit in 2020 Smoking on and off from 30 y ears until passed- then picked it back up- quit in 2020 Smoking on and off from 30 y ears until passed- then picked it back up- quit in 2020 Smoking on and off from 30 y ears until passed- then picked it back up- quit in 2020 Smoking on and off from 30 y ears until passed- then picked it back up- quit in 2020 Smoking on and off from 30 y ears until passed- then picked it back up- quit in 2020 Smoking on and off from 30 y ears until passed- then picked it back up- quit in 2020 Smoking on and off from 30 y ears until passed- then picked it back up- quit in 2020 Smoking on and off from 30 y ears until passed- then picked it back up- quit in 2020 Problems Problem Type SNOMED Code ICD Code Onset Dates Problem Status W/U Status Risk Notes Problem 97263269 Age-related osteoporosis without current pathological fracture (M81.0) Active confirmed Problem Atherosclerosis of aorta (32533186) Atherosclerosis of aorta (I70.0) Active confirmed Problem 91247523 Diaphragmatic hernia without obstruction or gangrene (K44.9) Active confirmed Problem Palpitations (58020476) Palpitations (R00.2) Active confirmed Problem Chest pain (52312706) Chest pain (R07.9) Active confirmed Problem Gastroesophageal reflux disease (093086795) GERD (gastroesophageal reflux disease) (K21.9) Active confirmed Problem Hypothyroid (84151728) Hypothyroid (E03.9) Active confirmed Problem Insomnia (797589330) Insomnia (G47.00) Active confirmed Problem Migraine (20269028) Migraine (G43.909) Active c onfirmed Problem 862073168 COPD exacerbatio n (J44.1) Active confirmed Problem Osteoporosis (58342709) Osteoporosis (M81.0) Active confirmed Problem Acquired hypothyroidism (616095362) Acquired hypothyroidism (E03.9) Active confirmed Problem Dyspnea (723653499) Exertional shortness of breath (R06.02) Active confirmed Problem Rib fracture (46855522) Rib fracture (S22.39XA) Active confirmed Problem Leukocytosis (330974892) Leukocytosis (D72.829) Active confirmed Problem Iron deficiency anemia (19180009) Anemia, iron deficiency (D50.9) Active confirmed Problem Memory deficit (089143242) Memory deficit (R41.3) Active confirmed Problem Excessive caffeine intake (065393846538930) Excessive caffeine intake (Z91.89) Active confirmed Problem Essential hypertension (09895354) BP (high blood pressure) (I10) Active confirmed Problem Mixed anxiety and depressive disorder (055119910) Anxiety and depression (F41.8) Active confirmed Problem Mild pulmonary hypertension (340306279) Mild pulmonary hypertension (I27.20) Active confirmed Problem Obese class II (finding) (693163809385267) Class 2 obesity (E66.9) Active confirmed Problem 298901067 Abnormal finding s on diagnostic imaging of other specified body structures (R93.89) Active confirmed Problem Disease caused by Severe acute respiratory syndrome coronavirus 2 (disorder) (615442921) COVID (U07.1) Active confirmed Problem Supraventricular tachycardia (disorder) (6792878) Supraventricular tachycardia, unspecified (I47.10) Active confirmed Vital Signs Oximetry 98 % 04/09/2024 Blood pressure diastolic 90 mm Hg 10/09/2024 Height 62 in 10/09/2024 Blood pressure systolic 160 mm Hg 10/09/2024 Weight 205.2 lbs 10/09/2024 BMI 37.53 kg/m2 10/09/2024 Encounters Encounter Location Date Provider Diagnosis [facility] [address] [place] [address] 02/29/2024 Natividadena Salazarmer Migraine G43.909 [facility] [address] [place] [address] 03/16/2024 Natividadena Salazarmer Migraine G43.909 [facility] [address] [place] [address] 04/09/2024 Natividad Silva COPD exacerbation J4 4.1 [facility] [address] [facility] [place] [address] 03/19/2024 Natividad Silva Migraine G43.909 [facility] [address] [facility] [place] [address] 02/08/2024 José Townsend Encounter for Medica re annual wellness exam Z00.00 [facility] [address] [facility] [place] [address] 10/09/2024 Ntaividad Silva Migraine G43.909 [facility] [address] [facility] [place] [address] 01/12/2024 Natividad Silva Anemia, iron deficie ncy D50.9 ; Hypothyroid E03.9 and Overweight E66.3 [facility] [address] [facility] [place] [address] 05/01/2024 Natividad Silva Atherosclerosis of a manda I70.0 ; Class 2 obesity E66.9 and Mild pulmonary hypertension I27.20 [facility] [address] [facility] [place] [address] 08/27/2024 Natividad Silva [facility] [address] [facility] [address] 09/05/2024 Natividad Silva [facility] [address] [facility] [place] [place] [address] 09/27/2024 Natividad Silva [facility] [address] [facility] [address] 10/02/2024 Natividad Silva Abnormal findings on diagnostic imaging of other specified body structures R93.89 [facility] [address] [facility] [place] [address] 10/03/2024 Natividad Silva [facility] [address] [facility] [place] [address] 05/03/2024 Natividad Silva [facility] [address] [facility] [place] [address] 05/21/2024 Natividad Silva Migraine G43.909 [facility] [address] [place] [address] 06/07/2024 José Townsend [facility] [address] [place] [address] 08/10/2024 Natividad Silva [facility] [address] [place] [address] 08/15/2024 Natividad Silva [facility] [address] [place] [address] 08/27/2024 Natividad Silva Migraine G43.909 [facility] [address] [place] [address] 01/27/2024 Natividad Silva [facility] [address] [place] [address] 02/06/2024 Natividad Silva Hypothyroid E03.9 [facility] [address] [place] [address] 02/08/2024 José Townsend Screening for breast cancer Z12.31 [facility] [address] [place] [address] 02/22/2024 José Townsend [facility] [address] [place] [address] 03/09/2024 Natividad Silva Migraine G43.909 [facility] [address] [place] [address] 03/19/2024 Natividad Silva Migraine G43.909 [facility] [address] [place] [address] 10/26/2023 NATIVIDAD SILVA Migraine, unspecifie d, not intractable, without status migrainosus G43.909 [facility] [address] [place] [address] 10/31/2023 NATIVIDAD SILVA Hypothyroid E03.9 [facility] [address] [place] [address] 11/29/2023 Natividad Silva [facility] [address] [place] [address] 01/17/2024 Natividad Silva Assessments Encounter Date Diagnosis (ICD Code) Assessment Notes Treatment Notes Treatment Clinical Notes Section Notes 01/12/2024 Hypothyroid (ICD-10 - E03.9) 01/12/2024 Anemia, iron deficiency (ICD-10 - D50.9) 02/08/2024 Encounter for Medicare annual wellness exam (ICD-10 - Z00.00) patient presents to the office for a subsequent medicare wellness appointment, reviewed medications, safety screening, depression and anxiety screening. vision screening was completed along with a slums memory test. Patient scored 100% on the memory test. No concerns with vision or safety screenings. A total of 20 mintues was spent with the patient 02/29/2024 Migraine (ICD-10 - G43.909) injections have helped in past, repeat 03/16/2024 Migraine (ICD-10 - G43.909) shots helped in past repeat fu if not improving 03/19/2024 Migraine (ICD-10 - G43.909) 04/09/2024 COPD exacerbation (ICD-10 - J44.1) trelegy encouraged to start using inhaler daily, consistently 05/01/2024 Atherosclerosis of aorta (ICD-10 - I70.0) not on statin check lipids 05/01/2024 Class 2 obesity (ICD-10 - E66.9) work on diet 10/09/2024 Migraine (ICD-10 - G43.909) Toradol 60 norflex 60 10/26/2023 Migraine, unspecified, not intractable, without status migrainosus (ICD-10 - G43.909) 10/31/2023 Hypothyroid (ICD-10 - E03.9) 02/06/2024 Hypothyroid (ICD-10 - E03.9) 02/08/2024 Screening for breast cancer (ICD-10 - Z12.31) 03/09/2024 Migraine (ICD-10 - G43.909) 03/19/2024 Migraine (ICD-10 - G43.909) 05/21/2024 Migraine (ICD-10 - G43.909) 08/27/2024 Migraine (ICD-10 - G43.909) 10/02/2024 Abnormal findings on diagnostic imaging of other specified body structures (ICD-10 - R93.89) 01/12/2024 Overweight (ICD-10 - E66.3) 05/01/2024 Mild pulmonary hypertension (ICD-10 - I27.20) see pulmonary? defers for now sees cardiology 05/01/2024 Other [facility] exam negative for cognitive impairment tested normal Plan Of Treatment Pending Test Test Name Order Date LIPID PANEL (CHOL/TRIG/HDL/LDL) 05/01/20 24 T3 FREE, T4 FREE and TSH 10/31/2023 T3 FREE, T4 FREE and TSH 02/06/2024 COVID 19 SWAB ANTIGEN TEST 08/23/2022 MAMM SCREEN BILAT DANIS 3D GLOBAL* 2023 CBC AUTO DIFF 01/03/2023 CBC AUTO DIFF 01/12/2024 IRON 01/03/2023 THYROID PANEL (T4/TSH/FREE T3) CT lung screening low-dose 10/02/2024 Insurance Providers Payer Name Payer Address Payer Phone Subscriber Number Group Number Insured Name Patient Relationship to Insured Coverage Start Date Coverage End Date [employer] AD[employer] PLAN [address] [place] [address] [id number] Mary Vick Self - patient is the insured 4 Medications Administered Medication Instructions Date of Administration Dosage Notes Ketorolac Tromethamine 02/04/2023 60 mg 60 Ketorolac Tromethamine 05/19/2023 60 mg 60 mg Ketorolac Tromethamine 09/13/2023 60 mg 60 Ketorolac Tromethamine 02/29/2024 60 mg Ketorolac Tromethamine 03/16/2024 60 mg Ketorolac Tromethamine 03/19/2024 60 mg Ketorolac Tromethamine 10/09/2024 60 mg Norflex 05/19/2023 60 mg 60 mg Orphenadrine Citrate 09/13/2023 60 mg Orphenadrine Citrate 03/16/2024 60 mg Orphenadrine Citrate 03/19/2024 60 mg Orphenadrine Citrate 10/09/2024 60 mg Phenergan 02/04/2023 25 mg Phenergan 03/19/2024 25 mg Promethazine 25mg 03/16/2024 25 mg Promethazine, 25 mg 02/29/2024 25 mg Medical (General) History Medical History History ICD Code Restless legs G25.81 Arthritis M19.90 Bipolar 1 disorder F31.9 COPD (chronic obstructive pulmonary dise ase) J44.9 COVID U07.1 Arthritis of both knees M17.0 Fracture of body of sternum, sequela S22 .22XS GERD (gastroesophageal reflux disease) K 21.9 Esophageal hernia K44.9 Hypertension I10 Migraines G43.909 Osteoporosis M81.0 Pneumonia J18.9 Thyroid disorder E07.9 Surgical History Surgery Date(Month/Year) Cataract removal and eye lift APPENDECTOMY Jaw Surgery HYSTERECTOMY TOTAL Ablation lumbar spine Colonoscopy- Dr Parson 04/2024 Hospitalization History Reason Date(Month/Year) migraine 01/13
--- OUTSIDE RECORDS SUMMARY | 2024-10-23 14:48 | XMS_ITS | Clinical Summary ---
Author Organization [facility] Address [address] [place] [address] Care Team Providers Care Vice President Of Customer Service Name Role Phone Bull Forrest MD Primary Care Provider [phone] Allergies No known active allergies Medications amLODIPine (NORVASC) 10 MG tablet amlodipine 10 mg tablet Take 1 tablet every day by oral route with meals for 90 days. Active amLODIPine (NORVASC) 5 MG tablet amlodipine 5 mg tablet Take 1 tablet every day by oral route. Active ARIPiprazole (ABILIFY) 20 MG tablet aripiprazole 20 mg tablet Take 1 tablet every day by oral route. Active FLUoxetine (PROZAC) 20 MG capsule fluoxetine 20 mg tablet Take 1 tablet 4 times a day by oral route. Active ibuprofen (IBU) 800 MG tablet Take 1 tablet by mouth every 6 hours as needed for Pain 30 tablet 8 Active Social History Tobacco Use Types Packs/Day Years Used Date Smoking Tobacco: Never Assessed Comments Unknown Sex and Gender Information Value Date Recorded Sex Assigned at Not on file Legal Sex Female 9:20 AM EST Gender Identity Not on file Sexual Orientation Not on file Last Filed Vital Signs Vital Sign Reading Time Taken Comments Blood Pressure 183/83 04/01/2018 11:58 AM EST Pulse 64 04/01/2018 11:56 AM EST Temperature 36.5 C (97.7 F) 04/01/2018 11:58 AM EST Respiratory Rate - - Oxygen Saturation 96% 04/01/2018 11:56 AM EST Inhaled Oxygen Concentration - - Weight 93.9 kg (207 lb) 04/01/2018 11:56 AM EST Height 160 cm (5' 3 ) 04/01/2018 11:56 AM EST Body Mass Index 36.67 04/01/2018 11:56 AM EST Plan of Treatment Not on file Insurance MEDICARE [address] MEDICARE Care Teams Vice President Of Customer Service Relationship Specialty Start Date End Date Bull Forrest MD [address] [place] [id number] PCP - General Family Medicine 04/01/18
--- OUTSIDE RECORDS SUMMARY | 2024-10-23 14:48 | XMS_ITS | Referral Summary ---
Author Organization [facility] Address [address] [place] [address] Care Team Providers Care Central Sterilization Technician Name Role Phone Travis Townsend MD Primary Care Provider [phone] Allergies Active Allergy Reactions Criticality Noted Date Comments Sumatriptan Other 03/19/2020 Tachycardia fainting Medications Medication Sig Dispensed Refills Start Date End Date Status amLODIPine (Norvasc) 10 mg tablet Take 1 tablet every day by oral route with meals for 90 days. 10/11/2016 Active ARIPiprazole (Abilify) 20 mg tablet Take 30 mg by mouth in the morning. Active FLUoxetine (PROzac) 20 mg tablet Take 1 tablet 4 times a day by oral route. Active magnesium oxide (Mag-Ox) 400 mg (241.3 mg magnesium) tablet Take 2 tablets twice a day by oral route with meals for 90 days. 10/11/2016 Active tiZANidine (Zanaflex) 4 mg tablet Take 1 tablet every day by oral route at bedtime. Active calcium carbonate-vitamin D3 500 mg-5 mcg (200 unit) tablet Take 1 tablet by mouth. Active ibuprofen 800 mg tablet Take 1 tablet by mouth every 6 (six) hours if needed. 04/01/2018 Active levothyroxine (Synthroid, Levoxyl) 100 mcg tablet Take 50 mcg by mouth in the morning. Active metoprolol succinate XL (Toprol-XL) 100 mg 24 hr tablet Take 100 mg by mouth in the morning. Active omeprazole (PriLOSEC) [address] capsule Take 10 mg by mouth before breakfast and before evening meal. Active butalbital-acetaminop hen-caff 50-325-40 mg tablet Take 1 tablet by mouth every 4 (four) hours. 09/17/2023 Active diclofenac (Cataflam) 50 mg tablet Take 50 mg by mouth in the morning and at bedtime. 10/10/2023 Active oxyCODONE-acetaminoph en (Percocet) 5-325 mg tablet Take 1 tablet by mouth if needed each day. 09/23/2023 Active rOPINIRole (Requip) 1 mg tablet 1 (one) time each day at the same time. 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 30 tablet 11 10/18/2023 Active amitriptyline (Elavil) 50 mg tablet Take 50 mg by mouth at bedtime. 11/19/2023 Active Active Problems Problem Noted Date Diagnosed Date Bipolar disorder 10/11/2016 Hypertensive disorder 10/11/2016 Migraine 10/11/2016 Immunizations Name Administration Dates Next Due Influenza, High-dose Seasona l, Quadrivalent, Preservative Free 02/12/2022,03/05/2021 Influenza, injectable, MDCK, quadrivalent 02/28/2018 Influenza, injectable, quadrivalent 02/02/2020 Influenza, seasonal, injectable 03/23/2021 Influenza, seasonal, injecta ble, preservative free, 6 moonths & older 02/27/2016 Influenza, trivalent, adjuvanted 02/19/2019 Pfizer SARS-CoV-2 Vaccination 09/18/2021 ,03/05/2021,08/04/2020,07/14 Pneumococcal Conjugate PCV 13 02/02/2020, 018 Pneumococcal Conjugate PCV 20 09/18/2021 Pneumococcal Polysaccharide PPV23 02/25/2014 Tdap 11/25/2021,04/01/2018 Unspecified Sars-Cov-2 Vaccination 02/12/2022 Zoster, live 02/27/2016 Social History Tobacco Use Types Packs/Day Years Used Date Smoking Tobacco: Former Cigarettes Q uit: 05/23/2019 Smokeless Tobacco: Never Alcohol Use Standard Drinks/Week Comments Never 0 (1 standard drink = 0.6 oz pur e alcohol) Humiliation, Afraid, Rape, and Kick questionnair e Answer Date Recorded Within the last year, have y ou been afraid of your partner or ex-partner? No 03/16/2022 Within the last year, have y ou been humiliated or emotionally abused in other ways by your partner or ex-partner? No Within the last year, have y ou been kicked, hit, slapped, or otherwise physically hurt by your partner or ex-partner? No 03/16/2022 Within the last year, have y ou been raped or forced to have any kind of sexual activity by your partner or ex-partner? No 03/16/2022 Social Connection and Isolat ion Panel [NHANES] Answer Date Recorded In a typical week, how many times do you talk on the phone with family, friends, or neighbors? More than three times a week 03/16/2022 How often do you get togethe r with friends or relatives? Twice a week 03/16/2022 How often do you attend chur or confucianist services? More than 4 times per year 03/16/2022 Do you belong to any clubs o r organizations such as evangelical groups, unions, fraternal or athletic groups, or school groups? Yes 03/16/2022 How often do you attend meet ings of the clubs or organizations you belong to? 1 to 4 times per year 03/16/2022 Are you , , di vorced, , never , or living with a partner? 03/16/2022 AUDIT-C Answer Date Recorded Frequency of Alcohol Consumption Not on file 03/16/2022 Q2: How many drinks containi ng alcohol do you have on a typical day when you are drinking? Patient does not drink Q3: How often do you have si x or more drinks on one occasion? Never 03/16/2022 Overall Financial Resource Strain (CARDIA) Answe r Date Recorded How hard is it for you to pa y for the very basics like food, housing, medical care, and heating? Somewhat hard 03/16/2022 PHQ-2 Answer Date Recorded Patient Health Questionnaire-2 Score 0 03/16/2022 [facility] [place] [facility] - Occupational Stress Questionnaire Answer Date Recorded Do you feel stress - tense, restless, nervous, or anxious, or unable to sleep at night because your mind is troubled all the time - these days? Not at all 03/16/2022 Exercise Vital Sign Answer Date Recorde d On average, how many days pe r week do you engage in moderate to strenuous exercise (like a brisk walk)? 0 days 03/16/2022 On average, how many minutes do you engage in exercise at this level? 0 min 03/16/2022 Hunger Vital Sign Answer Date Recorded Within the past 12 months, y ou worried that your food would run out before you got the money to buy more. Never true 03/16/20 Within the past 12 months, t he food you bought just didn't last and you didn't have money to get more. Never true 03/16/2022 PRAPARE - Transportation Answer Date Re corded In the past 12 months, has l ack of transportation kept you from medical appointments or from getting medications? No 02/21 In the past 12 months, has l ack of transportation kept you from meetings, work, or from getting things needed for daily living? No 03/16/2022 Housing Stability Vital Sign Answer Reza e Recorded In the last 12 months, was t here a time when you were not able to pay the mortgage or rent on time? No 03/16/2022 Number of Places Lived in the Last Year Not on f ile 03/16/2022 In the last 12 months, was t here a time when you did not have a steady place to sleep or slept in a half-way (including now)? No 03/16/2022 [place] Safety & Environment Answer Date Rec orded Fear of Current or Ex-Partner Not on file Emotionally Abused Not on file 07/14/2023 Physically Abused Not on file 07/14/2023 Sexually Abused Not on file 07/14/2023 Physically or Sexually Abused Not on file Sex and Gender Information Value Date Recorded Sex Assigned at Not on file Gender Identity Not on file Sexual Orientation Not on file Last Filed Vital Signs Vital Sign Reading Time Taken Comments Blood Pressure 158/72 11/28/2023 9:19 AM EDT Pulse 50 11/28/2023 9:19 AM EDT Temperature 36.4 C (97.5 F) 03/16/2022 1:15 PM EDT Respiratory Rate 16 03/16/2022 1:15 PM EDT Oxygen Saturation 98% 11/28/2023 9:19 AM EDT Inhaled Oxygen Concentration - - Weight 79.8 kg (176 lb) 11/28/2023 9:19 AM EDT Height 157.5 cm (5' 2 ) 11/28/2023 9:19 AM EDT Body Mass Index 32.19 11/28/2023 9:19 AM EDT Plan of Treatment Upcoming Encounters Date Type Department Care Team (Late st Contact Info) Description 11/22/2024 10:15 AM EDT Office Visit [facility] [address] [place] [id number] Miriam Saenz MD [address] [facility] [address] [facility] [place] [address] Care Teams Central Sterilization Technician Relationship Specialty Start Date End Date Travis Townsend MD [address] [facility] [address] [address] PCP - General 03/16/22
--- OUTSIDE RECORDS SUMMARY | 2024-10-23 14:48 | XMS_ITS | Patient Health Record ---
Author Organization [facility] Address [address] [place] [address] Care Team Providers Care Mainspring Former Name Role Phone Natividad Milton Primary Care Provider UnavailWilli Moreno Unavailable [phone] Shyanne Juares Unavailable [phone] Allergies Allergen (clinical drug ingredient) Drug/Non Drug Allergy documented on EMR Reaction Allergy Type Onset Date Status sumatriptan Imitrex Unknown Drug Allergy Activ e Results Component Value Reference Range Notes SCC- WRIST 3 VIEW LEFT [id number] Reviewed date:08/09/2024 01:53:02 PM Interpretation: Performing Lab: Notes/Report: SCC- WRIST 3 VIEW LEFT [id number] Reviewed date:06/27/2024 09:42:44 AM Interpretation: Performing Lab: Notes/Report: Reason For Referral Reason APPROVED for Hosp. C onsult 06/07 APPROVED for ORIF done 06/11 Diagnosis 1 Other intraarticular fracture of lower end of left radius, initial encounter for closed fracture (S52.572A) Referral Organization [facility] Referring Provider First Name Willi Referring Provider Last Name Brian Referring Provider Speciality Orthopedic Surgery Referred Organization [facility] Referred Address [address] [place],[address], General Notes Pau Tucker 11:56:12 AM > Lauren asked that I submit c9's for her Hospital Consult on 06/07 and SX on 06/11. Faxed c9's with reports.Caitlin Jessika 06/22/2024 03:30:13 PM > rcvd c9 auth for SX done 06/11, see Caitlin orozco Jessika 06/22/2024 03:32:00 PM > rcvd c9 auth for Hospital consult on 06/07, see attachment Referral Priority Routine Reason AD// WORK SLIP PLEAS E Diagnosis 1 Other intraarticular fracture of lower end of left radius, initial encounter for closed fracture (S52.572A) Referral Organization [facility] Referring Provider First Name Willi Referring Provider Last Name Newborn Referring Provider Speciality Orthopedic Surgery Referred Organization [facility] Referred Address [address] [place] [place], [place],[address],[place] General Notes Kierra Brice 06/20 09:09:27 AM >Need work slip for 06/11/2024 sx please. [facility] called asking for. Thanks so much, Pam Licona 06/20/2024 09:30:15 AM > IN UNDER CHART DOCS, Kierra Brice 06/20/2024 10:16:35 AM >noted. faxed Fredio Referral Priority Urgent Reason addressed,APPROVED f or casting done 06/25 Diagnosis 1 Other intraarticular fracture of lower end of left radius, initial encounter for closed fracture (S52.572A) Referral Organization [facility] Referring Provider First Name Willi Referring Provider Last Name Newborn Referring Provider Speciality Orthopedic Surgery Referred Organization [facility] e Referred Address [address],[place], [place],[address], General Notes Pau Tucker 09:05:49 AM > 06/25 can you please check dx, Laverne miller Lisa 06/27/2024 06:44:11 AM >ok, c9 for casting. Caitlin miller Jessika 06/27/2024 08:42:35 AM > faxed note and c9 for casting done 06/25, Pau Tucker 07/03/2024 10:08:25 AM > rcvd c9 auth for casting done 06/25, see Laverne orozco Lisa 07/03/2024 10:30:54 AM >noted, filed Referral Priority Routine Reason APPROVED FOR P.T. AT [place], OFF WORK, W[place] (PATIENT WILL GET IN [place] [facility]) AD [facility] APPROVED for dme from 07/16 Diagnosis 1 Other intraarticular fracture of lower end of left radius, subsequent encounter for closed fracture with routine healing (S52.657E) Referral Organization [facility] Referring Provider First Name Willi Referring Provider Last Name Newborn Referring Provider Speciality Orthopedic Surgery Referred Organization [facility] Rene mar Referred Address [address] [place] [address],[address],[place], [place],[address], General Notes Pau Tucker 08:01:11 AM > Can you please add dx for displaced ulnar styloid fx, dictated from xray, tksJuan David Jenny 07/17/2024 10:34:00 AM >done, Pau Tucker 07/17/2024 11:19:39 AM > faxed note and c9 for PT, Pau Tucker 07/19/2024 10:44:12 AM > rcvd C9 Auth PT LT arm 12 visits 07/17 to 09/07, see attachment. Where at in [place] would she go for PT?, Pam Licona 07/19/2024 11:15:20 AM [facility] 02:30:15 PM >, Miranda Galloway 08/13/2024 03:17:21 PM >C9 for dme [id number] given on 07-16-24. Patient went from [place] to [facility] for this. Assuming SI needs c9?, Pau Tucker 08/13/2024 03:32:04 PM > faxed c9, Pau Tucker 08/17/2024 12:45:49 PM > rcvd c9 auth for DME from 07/16. see attachment, Miranda Galloway 08/20/2024 06:58:55 AM >noted, filed Referral Priority Routine Reason ALLOWED add dx S52.6 12 08/22 AD -off work 08/21/24 when motion was completed Diagnosis 1 Closed displaced fra cture of styloid process of left ulna with routine healing, subsequent encounter (S52.031Y) Referral Organization [facility] Referring Provider First Name Willi Referring Provider Last Name Newborn Referring Provider Speciality Orthopedic Surgery [facility] Referred Address [address],[place], [place],[address],[place] General Notes Pau Tucker 02:24:34 PM > do we need to add the ulna fx to her clm?, Miranda Galloway 08/13/2024 03:17:43 PM >yes, I would add it. tksCaitlin Jessika 08/14/2024 08:52:36 AM > faxed note and [facility]. LVM with patient that a motion needs completed for S52.612., Pau Tucker 08/16/2024 09:53:06 AM > called patient, she said she was in her car and will call me back later., Pau Tucker 08/16/2024 10:13:41 AM > rcvd a call back from the patient, she has rehab in the morning and she is going to stop in to complete the motion then., Pau Tucker 08/21/2024 09:50:54 AM > Patient completed motion, faxed to Caitlin lopez Jessika 09/28/2024 01:55:25 PM > found a letter on the [facility] website. dx S52.612 was allowed on 08/22. see attachment Referral Priority Routine Reason AD 09/10 note Diagnosis 1 Closed displaced fra cture of styloid process of left ulna with routine healing, subsequent encounter (S52.612D) [facility] Referring Provider First Name Willi Referring Provider Last Name Newborn Referring Provider Speciality Orthopedic Surgery Referred Organization [facility] Referred Address [address],[place],[address], General Notes Pau Tucker 03:42:17 PM > faxed note and updated [facility] Referral Priority Routine Medications Medication SIG (Take, Route, Frequency, Duration) Notes Start Date End Date Status PROzac Active Abilify Active Social History Tobacco Use: Social History Observation Description Date Details (start date - stop date) Never Smoker NA - NA AUDIT-C (Standard) Question Answer Notes Did you have a drink containing alcohol in the p ast year? No Points 0 Interpretation Negative Tobacco Control (Standard) Question Answer Notes Tobacco use: Nonsmoker Problems Problem Type SNOMED Code ICD Code Onset Dates Problem Status W/U Status Risk Notes Problem Closed fracture of distal end of left radius (24278830329 [id number]) Other intraarticular fracture of lower end of left radius, subsequent encounter for closed fracture with routine healing (S52.572D) Active confirmed Problem 54929213 Closed displaced fracture of styloid process of left ulna with routine healing, subsequent encounter (S52.612D) Active confirmed Problem 18615273 Other intraarticular fracture of lower end of left radius, initial encounter for closed fracture (S52.572A) Inactive confirmed Vital Signs Height 5'2 in 09/10/2024 Weight 200 lbs 09/10/2024 BMI 36.58 09/10/2024 Encounters Encounter Location Date Provider Diagnosis [facility] Inpatient [address] [place] [address] 06/07/2024 [facility] Other intraarticular fracture of lower end of left radius, initial encounter for closed fracture S52.572A and Fall, initial encounter W19.XXXA [facility] Outpatient [address] [place] [address] 06/11/2024 Willi Torres Other intraarticular fracture of lower end of left radius, initial encounter for closed fracture S52.572A [address] [address] 06/25/2024 [facility] Other intraarticular fracture of lower end of left radius, subsequent encounter for closed fracture with routine healing S52.572D and Closed displaced fracture of styloid process of left ulna with routine healing, subsequent encounter S52.612D [address] [address] 07/16/2024 [facility] Other intraarticular fracture of lower end of left radius, subsequent encounter for closed fracture with routine healing S52.572D and Closed displaced fracture of styloid process of left ulna with routine healing, subsequent encounter S52.612D [address] [place] [address] 08/13/2024 Willi Torres Closed displaced fracture of styloid process of left ulna with routine healing, subsequent encounter S52.612D and Other intraarticular fracture of lower end of left radius, subsequent encounter for closed fracture with routine healing S52.572D [facility] Office [address] [place] [address] 09/10/2024 Willi Torres Closed displaced fracture of styloid process of left ulna with routine healing, subsequent encounter S52.612D and Other intraarticular fracture of lower end of left radius, subsequent encounter for closed fracture with routine healing S52.572D [facility] [address] [place] [address] 07/16/2024 Willi Torres Assessments Encounter Date Diagnosis (ICD Code) Assessment Notes Treatment Notes Treatment Clinical Notes Section Notes 06/07/2024 Other intraarticular fracture of lower end of left radius, initial encounter for closed fracture (ICD-10 - S52.572A) 06/07/2024 Fall, initial encounter (ICD-10 - W19.XXXA) 06/11/2024 Other intraarticular fracture of lower end of left radius, initial encounter for closed fracture (ICD-10 - S52.572A) 06/25/2024 Other intraarticular fracture of lower end of left radius, subsequent encounter for closed fracture with routine healing (ICD-10 - S52.572D) 07/16/2024 Other intraarticular fracture of lower end of left radius, subsequent encounter for closed fracture with routine healing (ICD-10 - S52.572D) 07/16/2024 Closed displaced fracture of styloid process of left ulna with routine healing, subsequent encounter (ICD-10 - S52.612D) 08/13/2024 Other intraarticular fracture of lower end of left radius, subsequent encounter for closed fracture with routine healing (ICD-10 - S52.572D) 08/13/2024 Closed displaced fracture of styloid process of left ulna with routine healing, subsequent encounter (ICD-10 - S52.612D) 09/10/2024 Other intraarticular fracture of lower end of left radius, subsequent encounter for closed fracture with routine healing (ICD-10 - S52.572D) 09/10/2024 Closed displaced fracture of styloid process of left ulna with routine healing, subsequent encounter (ICD-10 - S52.612D) 06/25/2024 Closed displaced fracture of styloid process of left ulna with routine healing, subsequent encounter (ICD-10 - S52.612D) 06/25/2024 Other Patient is reilly oconnor well 2 weeks s/p left distal radius ORIF. Given she does have a ulnar styloid fracture I placed her in a short arm cast. 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 We will see her back in 3 weeks to remove cast and repeat x-rays of the wrist. 07/16/2024 Other Today we will discontinue patient's cast and I have ordered a cock up wrist brace for her to wear with activity. I have also given her a prescription for physical therapy. I will keep her off work until her next appointment. We will see her back in 4 weeks to repeat x-rays and reassess her progress. 08/13/2024 Other Patient is doing very well after her distal radius and ulna fractures. We will continue to keep her off of work. She will follow-up in 1 month to repeat x-rays and reassess her progress. At that time we would likely consider starting to get her back into work with some restrictions. She works at [employer] and reports she does not have to lift typically more than a copper bag of food. Import medication 09/10/2024 Other Patient is doing well after her ORIF of her left distal radius fracture and ulna fractures. We will return her to work without restrictions. She will follow-up on an as-needed basis. Import medication Plan Of Treatment Pending Test Test Name Order Date SCC- WRIST 3 VIEW LEFT [id number] 08/13/2024 SCC- PT/OT EVAL AND TREAT 3X/WEEK FOR 6 WEEKS 07/16/2024 SCC- WRIST 3 VIEW LEFT [id number] 09/10/2024 Insurance Providers Payer Name Payer Address Payer Phone Subscriber Number Group Number Insured Name Patient Relationship to Insured Coverage Start Date Coverage End Date [employer] [address] [facility] [place] [address] [id number] DOI 24 MELANIE TOMPKINS Self - patient is the insured 5 [employer] [address] [place] [address] [id number] [facility] MELANIE Self - patient is the insured Medical (General) History Medical History History ICD Code Respiratory problems: Lung Disease Hypothyroidism High Blood Pressure Depression Mental Illness: Anxiety Surgical History Surgery Date(Month/Year) ORIF of a left distal radius fracture
--- OUTSIDE RECORDS SUMMARY | 2024-10-23 14:48 | XMS_ITS | Clinical Summary ---
Author Organization [facility] Address [address] [place] [address] Care Team Providers Care Supervisor Intermediates Name Role Phone Travis Townsend MD Primary Care Provider [phone] Allergies Active Allergy Reactions Criticality Noted Date [...] Unspecified Sars-Cov-2 Vaccination 02/12/2022 Zoster, live 02/27/2016 Family History Medical History Relation Name Comments Cancer Mother Cancer Sister Relation Name Status Comments Mother Sister Social History Tobacco Use Types [...] 03/16/2022 How often do you attend chur ch or methodist services? More than 4 times per year 03/16/2022 Do you belong to any clubs o r organizations such as denominational groups, unions, fraternal or athletic groups, or [...] Recorded Patient Health Questionnaire-2 Score 0 03/16/2022 [facility] [place] [facility] Occupat ional Health - Occupational Stress [...] place to sleep or slept in a skilled nursing (including now)? No 03/16/2022 [place] Safety & Environment Answer Date Rec orded [...] Description 11/22/2024 10:15 AM EDT Office Visit [facility] [address] [place] [address] Miriam Saenz MD [address] [facility] [place] [address] Health Maintenance Due Date Last Done Comments CT Colonography 1955 Colonoscopy 1955 Colorectal Cancer Screening 1955 FIT-DNA 1955 FIT 1955 FOBT 1955 Medicare Annual Wellness (AWV) 1955 Sigmoidoscopy 1955 Depression Screening 1965 Mammogram 1993 Fall Risk Screening 2018 COVID-19 Vaccine ( season) 2024 04/30/2023, 07/09/2022, 02/12/2022, Additional history exists Adult Tetanus 11/26/2031 11/25/2021, 04/01/2018 Influenza Vaccine Completed 06/05/2024, , 02/12/2022, Additional history exists Pneumococcal Vaccine: 65+ Years Completed 06/05/2024, 09/18/2021, 02/02/2020, Additional history exists Zoster Vaccines Completed 08/31/2024, 06/23, 02/27/2016 HIB Vaccines Aged Out No longer eligi ble based on patient's age to complete this topic HPV Vaccines Aged Out No longer eligi ble based on patient's age to complete this topic IPV Vaccines Aged Out No longer eligi ble based on patient's age to complete this topic Meningococcal B Vaccine Aged Out No l onger eligible based on patient's age to complete this topic Meningococcal Vaccine Aged Out No zoe jewel eligible based on patient's age to complete this topic Rotavirus Vaccines Aged Out No longer eligible based on patient's age to complete this topic Care Teams Supervisor Intermediates Relationship Specialty Start Date End Date Travis Townsend MD [address] [place] [address] PCP - General 03/16/22
--- NOTE | 2024-10-23 14:50 | CT_ITS ---
[address] [address] Patient Name: MELANIE TOMPKINS MRN: [id number] date: 1955 Sex: F Assigned Patient Location: CT Current Patient Location: Accession/Order Number: [id number] Exam Date: 10/23/2024 15:17 Report Date: 10/24/2024 00:10 At the request of: POLO SILVA Procedure: CT lung screening low-dose CT Chest low-dose screening without contrast TECHNIQUE: Axial imaging with 2-D reconstruction. The CT exam was performed using one or more the following dose reduction techniques: Automated exposure control, adjustment of the MA and/or Kv according to patient size, or use of the iterative reconstruction technique. History: Lung screening. Shortness of breath. COMPARISON: 06/06/2024 THYROID: Similar thyroid nodularity TRACHEA AND BRONCHI: Patent ESOPHAGUS: Large hiatal hernia. HEART: Within normal limits PERICARDIAL EFFUSION: None CORONARY ARTERY CALCIFICATION: Present MEDIASTINUM: No adenopathy. No pneumoperitoneum. No mediastinal hematoma. PULMONARY JOSÉ: No hilar mass or adenopathy is seen. THORACIC AORTA atherosclerosis. No aneurysm. LUNG NODULE left upper lobe lung nodule no longer seen. LUNGS: Developing Patchy basilar groundglass parenchymal lung densities. Continued likely chronic reticular interstitial changes of the lungs.. PLEURAL EFFUSION: None PNEUMOTHORAX: No pneumothorax seen. CHEST WALL: No abnormality AXILLA:Unremarkable BONY STRUCTURES . Chronic sternal fracture. Chronic fractures of the ribs. Fracture. Thoracic spondylosis. UPPER ABDOMEN: Splenic granulomata of spleen redemonstrated. CT/CT lung screening low-dose IMPRESSION: Similar chronic reticular interstitial changes of the lungs. Interval development of patchy basilar groundglass parenchymal densities. Consider infectious or inflammatory etiology. No new or enlarging nodule. FINAL ASSESSMENT: Developing patchy basilar groundglass interstitial lung changes. Consider acute inflammatory changes. Redemonstration of chronic coarsened interstitium. Resolution of left upper lobe lung nodule. No new or enlarging lung nodules. Lung-RADS Version 1.0 Assessment Category: 2 REMARKS: Continued annual screening with LDCT in 12 months is recommended. Impression dictated by: Ghanshyam Mendez M.D. 10/24/2024 12:10 AM Dictation Location: RADIO-PC-20 Electronically authenticated by: [id number] Y Date: 10/24/2024 00:10
== END 2024-10-23 14:46 | disposition home or self-care (01) ==
LOC: CT 14:45
PROVIDERS: PCP Nurse Practitioner Family; Visit Provider Nurse Practitioner Family
DX: R91.8 Other nonspecific abnormal finding of lung field (principal); R93.89 Abnormal findings on diagnostic imaging of other specified body structures; J84.9 Interstitial pulmonary disease, unspecified; Z87.891 Personal history of nicotine dependence
CPT/HCPCS: 71271

== ENCOUNTER 2024-10-25 09:27 | Emergency (ER) | payer MEDICARE, SELFPAY ==
--- OUTSIDE RECORDS SUMMARY | 2024-07-16 07:49 | XMS_ITS ---
Author Organization [facility] Address [address] [place] [address] Care Team Providers Care Molder Hand Name Role Phone Natividad Milton Primary Care Provider Willi Alegria [facility] [phone] REASON FOR VISIT DME Encounters Encounter Location Date Provider Diagnosis [facility] [address] [place] [address] 07/16/2024 Willi Torres Plan Of Treatment No Information Progress Notes * MELANIE TOMPKINS MDOB:1955 (68 yo F)Acc No.[id number]:07/16/2024 Patient: MELANIE DURANT :1955 A ge:68 Y S ex:Female Address:[address] [place] [address] [place], [address] * true * Date: Generated for Printi ng/Faxing/eTransmitting on: 0 10/25/2024 09:36 AM EDT
--- OUTSIDE RECORDS SUMMARY | 2024-10-03 04:49 | XMS_ITS ---
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 [address] [place] [address] 10/03/2024 Natividad Milton Plan Of Treatment No Information Progress Notes * Mary TOMPKINS MDOB:1955 (69 yo F)Acc No.[id number]:10/03/2024 Patient: Massimo PRAKASHMary :1955 A ge:69 Y S ex:Female Address:[address] [place] [address] [place] [address] * true * Date: Generated for Printi ng/Faalexg/eTransmitting on: 0 10/25/2024 09:36 AM EDT
--- OUTSIDE RECORDS SUMMARY | 2024-10-09 07:00 | XMS_ITS ---
Author Organization [facility] in [place] Address [address] [place] [address] Care Team Providers Care Agency Sales Development Associate Name Role Phone Natividad Milton Primary Care Provider Allergies Allergen (clinical drug ingredient) Drug/Non Drug Allergy documented on EMR Reaction Allergy Type Onset Date Status sumatriptan Imitrex Unknown Drug Allergy Activ e REASON FOR VISIT migraine started last night Medications Medication SIG (Take, Route, Frequency, Duration) Notes Start Date End Date Status Ondansetron HCl 4 MG 1 tablet Orally Onc e a day prn for 14 days 02/29/2024 Active PROzac 20 MG 4 capsule Orally onc e daily for 90 days Active oxyCODONE-Acetaminophen 5-325 MG Oral for 30 Days Active Trelegy Ellipta 100-62.5-25 MCG/ACT 1 puff Inhalation Once a day for 30 days 04/09/2024 Active rOPINIRole HCl 1 MG 1 tablet 1 to 3 hour s before bedtime Orally Once a day for 30 days Active Omeprazole 20 MG 1 capsule 1/2 to 1 hour before morning meal Orally BID for 30 days 08/27/2024 Active Omeprazole Magnesium 20 MG 1 tablet 1/2 to 1 hour before morning meal Orally Once a day for 30 days Active Ferrous Sulfate 325 (65 Fe) MG 1 tablet Orally Three times a Week for 30 days 01/31/2024 Active Levothyroxine Sodium 50 MCG 1 tablet in the morning on an empty stomach Orally Once a day Active Lisinopril 20 MG 1 tablet Orally Once a day Active Baclofen 5 MG 1 -2 tablet as neede d Orally Once a day for 14 days 02/29/2024 Active Diclofenac Sodium 50 MG 1 tablet Orally Twice a day Active Abilify 30 MG 1 tablet Orally Once a day for 90 days Active Zepbound 2.5 MG/0.5ML 0.5 mL Subcutaneou s for 30 days call for next dose 05/01/2024 Active Amitriptyline HCl 50 mg TAKE 1 TABLET BY MOUTH AT BEDTIME for 30 Active Social History Tobacco Use: Social History Observation Description Date Details (start date - stop date) Former Smoker 05/23/1967 - 05/23/2020 Tobacco Use/Smoking Question Answer Notes Patient is a former smoker When did you start smoking? 05/23/1967 When did you stop smoking? 05/23/2020 How long has it been since you last smoked? 1-5 years AUDIT-C (Standard) Question Answer Notes Did you have a drink containing alcohol in the p ast year? No Points 0 Interpretation Negative Section Notes: Smoking on and off from 30 y ears until passed- then picked it back up- quit in 2020 Vital Signs Blood pressure systolic 160 mm Hg 10/10/19 25 Blood pressure diastolic 90 mm Hg 025 Height 62 in 10/09/2024 Weight 205.2 lbs 10/09/2024 BMI 37.53 kg/m2 10/09/2024 Encounters Encounter Location Date Provider Diagnosis [address] [address] 10/09/2024 Natividad Milton Migraine G43.909 Assessments Encounter Date Diagnosis (ICD Code) Assessment Notes Treatment Notes Treatment Clinical Notes Section Notes 10/09/2024 Migraine (ICD-10 - G43.909) Toradol 60 norflex 60 Plan Of Treatment Treatment Notes Assessment Notes Migraine Toradol 60 norflex 6 0 Next Appt Details Follow Up: prn, Reason: Medications Administered Medication Instructions Date of Administration Dosage Notes Ketorolac Tromethamine 10/09/2024 60 mg Orphenadrine Citrate 10/09/2024 60 mg Progress Notes * Mary TOMPKINS MDOB:1955 (69 yo F)Acc No.[id number]:10/09/2024 Progress Note Patient: Massimo Mary PRAKAHS Provider: Giovana Milton ([facility]), ELECTRONIC WARFARE LINGUIST :1955 A ge:69 Y S ex:Female Date:10/09/2024 Address:[address] [place] [address] [place] , [phone] Check In:10:50 AM ESTCheck O ut:11:12 AM EST Subjective: * Chief Complaints: * 1 . Migraine started last night. * HPI: G eneral: migraine started last night right back of head pounding lights and noise make worse 7 years ago this month, 47 years ibuprofen zofran at home. * ROS: G eneral/Constitutional: Fever d enies. H eadache a dmits, is associated with nausea, is associated with photophobia and phonia. W eight loss d enies. O phthalmologic: Discharge d enies. E ye Pain d enies. I tching and redness d enies. E NT: Nasal discharge d enies. N gaston congestion d enies.?Sore throat d enies. C ardiovascular: Chest tightness/ heavy pressure d enies. R apid heart rate d enies. S welling of extremities d enies. C hest pain d enies. ? R espiratory: Productive cough d enies. C hest pain d enies. C ough d enies. S hortness of breath d enies. W heezing d enies. ? G astrointestinal: Abdominal pain d enies. C onstipation d enies. D ecreased appetite d enies. D iarrhea d enies. N ausea d enies. V omiting?denies. G enitourinary: Urinary incontinence d enies. P ainful urination d enies. M usculoskeletal: Back pain d enies. N tiffany pain d enies. M uscle aches d enies. S kin: Rash d enies. S kin lesion(s) d enies. ? * Active Problem List J44.1 COPD exacerbation Modified On:08/23/2022/U Status:confirmed U07.1 COVID Modified On:08/24/2022/U Status:confirmed M81.0 Age-related osteopor osis without current pathological fracture Modified On:11/18/2022W/U Status:confirmed K44.9 Diaphragmatic hernia without obstruction or gangrene Modified On:04/19/2023 Status:confirmed G47.00 Insomnia Modified On:09/02/2023 Status:confirmed R93.89 Abnormal findings on diagnostic imaging of other specified body structures Modified On:09/06/2023 Status:confirmed G43.909 Migraine Modified On:09/15/2023 Status:confirmed F41.8 Anxiety and depressi on Modified On:10/05/2023 Status:confirmed K21.9 GERD (gastroesophage al reflux disease) Modified On:10/05/2023 Status:confirmed D50.9 Anemia, iron deficie ncy Modified On:10/05/2023 Status:confirmed I10 BP (high blood press ure) Modified On:10/05/2023 Status:confirmed D72.829 Leukocytosis Modified On:10/05/2023 Status:confirmed R00.2 Palpitations Modified On:10/24/2023 Status:confirmed I47.10 Supraventricular tac hycardia, unspecified Modified On:10/24/2023 Status:confirmed R07.9 Chest pain Modified On:10/24/2023 Status:confirmed Z91.89 Excessive caffeine i ntake Modified On:10/24/2023 Status:confirmed R06.02 Exertional shortness of breath Modified On:10/24/2023 Status:confirmed E03.9 Hypothyroid Modified On:10/31/2023 Status:confirmed I70.0 Atherosclerosis of a manda Modified On:05/01/2024 Status:confirmed I27.20 Mild pulmonary hyper tension Modified On:05/01/2024 Status:confirmed R41.3 Memory deficit Modified On:05/01/2024 Status:confirmed E66.9 Class 2 obesity Modified On:05/01/2024 Status:confirmed M81.0 Osteoporosis Modified On:06/06/2024 Status:confirmed S22.39XA Rib fracture Modified On:06/07/2024 Status:confirmed E03.9 Acquired hypothyroid ism Modified On:06/28/2024W/U Status:confirmed * Medical History: R estless legs, Arthritis, Bipolar 1 disorder, COPD (chronic obstructive pulmonary disease), COVID, Arthritis of both knees, Fracture of body of sternum, sequela, GERD (gastroesophageal reflux disease), Esophageal hernia, Hypertension, Migraines, Osteoporosis, Pneumonia, Thyroid disorder. * Surgical History: H YSTERECTOMY TOTAL , Jaw Surgery , APPENDECTOMY , Cataract removal and eye lift , Ablation lumbar spine , Colonoscopy- Dr Parson 04/2024. * Hospitalization/Major Diagno stic Procedure: m igraine 01/13. * Family History: F ather: 40 yrs. M other: , Lung cancer, diagnosed with Other malignant neoplasm of unspecified site. B rother(s): alive. S ister(s): , Lung cancer, diagnosed with Other malignant neoplasm of unspecified site. S on(s): alive. D augnitiner(s): alive.?1 brother(s) , 2 sister(s) . 1 son(s) , 1 daughter(s) . . Dad passed in car accident Sister passed from Lung Cancer. * Social History: T obacco Use: T obacco Use/Smoking P atient is a f ormer smoker W hen did you start smoking? 0 05/23/1967 W hen did you stop smoking? 0 05/23/2020 H ow long has it been since you last smoked??1-5 years D rug/Alcohol: A CARLOS-C (Standard) D id you have a drink containing alcohol in the past year? N o P oints 0 I nterpretation N egative S moking on and off from 30 years until passed- then picked it back up- quit in 2020. * Medications: T aking Abilify(ARIPiprazole) 30 MG Tablet 1 tablet Orally Once a day , Taking Amitriptyline HCl 50 mg Tablet TAKE 1 TABLET BY MOUTH AT BEDTIME , Taking Baclofen 5 MG Tablet 1 -2 tablet as needed Orally Once a day , Taking Diclofenac Sodium 50 MG Tablet Delayed Release 1 tablet Orally Twice a day , Taking Ferrous Sulfate 325 (65 Fe) MG Tablet 1 tablet Orally Three times a Week , Taking Levothyroxine Sodium 50 MCG Tablet 1 tablet in the morning on an empty stomach Orally Once a day , Taking Lisinopril 20 MG Tablet 1 tablet Orally Once a day , Taking Omeprazole 20 MG Capsule Delayed Release 1 capsule 1/2 to 1 hour before morning meal Orally BID , Taking Omeprazole Magnesium 20 MG Tablet Delayed Release 1 tablet 1/2 to 1 hour before morning meal Orally Once a day , Taking Ondansetron HCl 4 MG Tablet 1 tablet Orally Once a day prn , Taking oxyCODONE-Acetaminophen 5-325 MG Tablet Oral , Taking PROzac(FLUoxetine HCl) 20 MG Capsule 4 capsule Orally once daily , Taking rOPINIRole HCl 1 MG Tablet 1 tablet 1 to 3 hours before bedtime Orally Once a day , Taking Trelegy Ellipta(Vkqvvnlmavr-Sjonczazh-Hgykll) 100-62.5-25 MCG/ACT Aerosol Powder Breath Activated 1 puff Inhalation Once a day , Taking Zepbound(Tirzepatide- Weight Management) 2.5 MG/0.5ML Solution Auto-injector 0.5 mL Subcutaneous , Notes to Pharmacist: call for next dose, Medication List reviewed and reconciled with the patient * Allergies: I mitrex. Objective: * Vitals: W t:205.2lbs, Ht: 62 in, BP:160/90mm Hg, BMI:37.53Index, Ht-cm: 157.48 cm, Wt-k.08 kg. * Examination: G eneral Examinations: GENERAL APPEARANCE: a lert and oriented, h as sunglasses on, lights dimmed in room. EYES: c onjunctiva normal, sclera non-icteric. NOSE: n ormal external appearance. LUNGS: c lear to auscultation bilaterally. CARDIO: r egular rate and rhythm, S1, S2 normal. MUSCULOSKELETAL: G ait and station normal. SKIN: w arm and dry. Assessment: * Assessment: 1. M [facility] G43.909 (Primary) Plan: * Treatment: * Therapeutic Injections: Ketorolac Tromethamine : 60 mg (Route: Intramuscular) given by LLUVIA Doll on left gluteus (Migraine) Orphenadrine Citrate : 60 mg (Route: Intramuscular) given by LLUVIA Doll on left gluteus (Migraine) * Procedure Codes: 9 6372 THERAP.INJ. OF MED. INTRAMUSCULAR OR SUBCUTANEOUS, J1885 TORADOL, PER 15 MG, Units: 4.00 , Modifiers: JZ , J2360 NORFLEX,UP TO 60MG. * Preventive Medicine: Screenings/Counseling: B NC ACTION PLAN Above Normal BMI Follow-up D ietary management education, guidance, and counseling * Follow Up: p rn * * Electronically signed by Su Milton , SENIOR RECRUITMENT CONSULTANT, WOOD CLUB NECK WHIPPER.ELECTRONIC WARFARE LINGUIST.[id number] on 10/11/2024 at 11:47 AM EDT Sign off status: Completed Visit Status: C HK (Check Out) true * Provider: Giovana Milton (TTC), ELECTRONIC WARFARE LINGUIST Date: 0 10/09/2024 Generated for eNlda valdez/Michelle/eTransmitting on: 0 10/25/2024 09:35 AM EDT History and Physical Notes * HPI (History of Present Illness) Category Sub-Category Detail Notes Category Not es General migraine started last night right back of head pounding lights and noise make worse 7 years ago this month, 47 years ibuprofen zofran at home Examination Category Sub-Category Detail Notes Category Not es General Examinations GENERAL APPEARANCE: alert a nd oriented, has sunglasses on, lights dimmed in room EYES: conjunctiva normal, sclera non-icteric EARS: NOSE: normal external appe arance THROAT: CARDIO: regular rate and rhy thm, S1, S2 normal LUNGS: clear to auscultatio n bilaterally ABDOMEN: SKIN: warm and dry BACK: MUSCULOSKELETAL: Gait and station nor mal LYMPH NODES:
--- OUTSIDE RECORDS SUMMARY | 2024-10-22 11:15 | XMS_ITS ---
Author Organization [facility] in [place] Address [address] [place] [address] Care Team Providers Care Harness Racing Handicapper Name Role Phone Natividad Milton Primary Care Provider [phone] REASON FOR VISIT sick Encounters Encounter Location Date Provider Diagnosis [facility] [address] [place] [address] 10/22/2024 Natividad Milton Plan Of Treatment No Information Progress Notes * Mary TOMPKINS MDOB:1955 (69 yo F)Acc No.[id number]:10/22/2024 UNLOCKED PROGRESS NOTE Progress Note Patient: Mary DURANT Provider: Giovana Milton CNP (TTC) :1955 A ge:69 Y S ex:Female Date:10/22/2024 Address:[address] [place] [address] [address] [place] , [id number] Subjective: * Chief Complaints: * 1 . Sick. * Medical History: Objective: * Vitals: Assessment: Plan: * Treatment: * * Electronic signature of Shannan York NP, RN OBSERVATION.CHEMICAL PROCESS PROJECT ENGINEER.[id number] on 10/25/2024 at 09:35 AM EDT Sign off status: Pending Visit Status: C ANC (Cancelled) * Provider: Giovana DE LA O) CHEMICAL PROCESS PROJECT ENGINEER Date: 10/22/2024 Generated for Printi ng/Faxing/eTransmitting on: 10/25/2024 09:35 AM EDT
[2024-10-25] VITALS (21 sets, daily range): BP systolic 130–156; BP diastolic 72–89; PULSE 67–85; TEMP 36.5; O2SAT 93–100; BMI 37.9
--- OUTSIDE RECORDS SUMMARY | 2024-10-25 09:36 | XMS_ITS | Patient Health Record ---
Author Organization [facility] Address [address] [place] [address] Care Team Providers Care Forging Roll Operator Name Role Phone Natividad Milton Primary Care Provider UnavailWilli Moreno Unavailable [phone] Shyanne Juares Unavailable [phone] Allergies Allergen (clinical drug ingredient) Drug/Non Drug Allergy documented on EMR Reaction Allergy Type Onset Date Status sumatriptan Imitrex Unknown Drug Allergy Activ e Results Component Value Reference Range Notes SCC- WRIST 3 VIEW LEFT [id number] Reviewed date:08/09/2024 01:53:02 PM Interpretation: Performing Lab: Notes/Report: SCC- WRIST 3 VIEW LEFT [id number] Reviewed date:06/27/2024 09:42:44 AM Interpretation: Performing Lab: Notes/Report: Reason For Referral Reason APPROVED for Hosp. C onsult 06/07 APPROVED for ORIF done 06/11 Diagnosis 1 Other intraarticular fracture of lower end of left radius, initial encounter for closed fracture (S52.572A) Referral Organization [facility] Referring Provider First Name Willi Referring Provider Last Name Brian Referring Provider Speciality Orthopedic Surgery Referred Organization [facility] Referred Address [address] [place],[address], General Notes Pau Tucker 11:56:12 AM > [...] encounter for closed fracture (S52.572A) Referral Organization [facility] Referring Provider First Name Willi Referring Provider Last Name [place] Referring Provider Speciality Orthopedic Surgery Referred Organization [facility] Referred Address [address] [place], [place],[address],[place] General Notes Kierra Brice 06/20 09:09:27 AM >Need work slip for 06/11/2024 sx please. [facility] called asking for. Thanks so much, Pam Licona 06/20/2024 09:30:15 AM > IN UNDER CHART DOCS, Kierra Brice 06/20/2024 10:16:35 AM >noted. faxed [employer] [facility] Referral Priority Urgent Reason addressed,APPROVED f or casting done 06/25 Diagnosis 1 Other intraarticular fracture of lower end of left radius, initial encounter for closed fracture (S52.572A) Referral Organization [facility] Referring Provider First Name Willi Referring Provider Last Name [place] Referring Provider Speciality Orthopedic Surgery Referred Organization [facility] e Referred Address [address],[place], [place],[address], General Notes Pau Tucker 09:05:49 AM > [...] Priority Routine Reason APPROVED FOR P.T. AT [facility], OFF WORK, [facility] [place] (PATIENT WILL GET IN [place] [facility]) AD [employer] APPROVED for dme from 07/16 Diagnosis 1 Other intraarticular fracture of lower end of left radius, subsequent encounter for closed fracture with routine healing (S52.813J) Referral Organization [facility] Referring Provider First Name Willi Referring Provider Last Name [place] Referring Provider Speciality Orthopedic Surgery Referred Organization [facility] Rene mar Referred Address [address] [place] [address],[address],[place], [place],[address], General Notes Pau Tucker 08:01:11 AM > Can you please add dx for displaced ulnar styloid fx, dictated from xray, tksJuan David Jenny 07/17/2024 10:34:00 AM >done, Pau Tucker 07/17/2024 11:19:39 AM > faxed note and c9 for PT, Pau Tucker 07/19/2024 10:44:12 AM > rcvd C9 Auth PT LT arm 12 visits 07/17 to 09/07, see attachment. Where at in [place] would she go for PT?, Pam Licona 07/19/2024 11:15:20 AM >[facility] 02[facility]30:15 PM >, Miranda Galloway 08/13/2024 03:17:21 PM >C9 for dme [id number] given on 07-16-24. Patient went from [place] to [facility] for this. Assuming SI needs c9?, Pau [...] left ulna with routine healing, subsequent encounter (S52.744M) Referral Organization [facility] Referring Provider First Name Willi Referring Provider Last Name [place] Referring Provider Speciality Orthopedic Surgery [facility] Address [address],[place],[address],[place] General Notes Pau Tucker 02:24:34 PM > [...] PM > found a letter on the [facility] website. dx S52.612 was allowed on 08/22. see attachment Referral Priority Routine Reason AD 09/10 note Diagnosis 1 Closed displaced fra cture of styloid process of left ulna with routine healing, subsequent encounter (S52.612D) [facility] Referring Provider First Name Willi Referring Provider Last Name [place] Referring Provider Speciality Orthopedic Surgery Referred Organization [facility] Referred Address [address],[place], [place],[address], General Notes aPu Tucker 03:42:17 PM > faxed note and [...] Problem Status W/U Status Risk Notes Problem [id number] Closed displaced fracture of styloid process of left ulna with routine healing, subsequent encounter (S52.612D) Active confirmed Problem [id number] Other intraarticular fracture of lower end of left radius, initial encounter for closed fracture (S52.572A) Inactive confirmed Problem Closed fracture of distal end of left radius ([id number]) Other intraarticular fracture of lower end of left radius, subsequent encounter for closed fracture with routine healing (S52.572D) Active confirmed Vital Signs Height 5'2 in 09/10/2024 Weight 200 lbs 09/10/2024 BMI 36.58 09/10/2024 Encounters Encounter Location Date Provider Diagnosis [facility] Inpatient [address] [place] [address] 06/07/2024 [facility] Other intraarticular fracture of lower end of left radius, initial encounter for closed fracture S52.572A and Fall, initial encounter W19.XXXA [facility] Outpatient [address] [place] [address] 06/11/2024 Willi Torres Other intraarticular fracture of lower end of left radius, initial encounter for closed fracture S52.572A [address] [address] 06/25/2024 [facility] Other intraarticular fracture of lower end of left radius, subsequent encounter for closed fracture with routine healing S52.572D and Closed displaced fracture of styloid process of left ulna with routine healing, subsequent encounter S52.612D [address] [address] 07/16/2024 [facility] Other intraarticular fracture of lower end of left radius, subsequent encounter for closed fracture with routine healing S52.572D and Closed displaced fracture of styloid process of left ulna with routine healing, subsequent encounter S52.612D [address] [place] [address] 08/13/2024 Willi Torres Closed displaced fracture of styloid process of left ulna with routine healing, subsequent encounter S52.612D and Other intraarticular fracture of lower end of left radius, subsequent encounter for closed fracture with routine healing S52.572D [facility] Office [address] [place] [address] 09/10/2024 Willi Torres Closed displaced fracture of styloid process of left ulna with routine healing, subsequent encounter S52.612D and Other intraarticular fracture of lower end of left radius, subsequent encounter for closed fracture with routine healing S52.572D [facility] [address] [place] [address] 07/16/2024 Willi Torres Assessments Encounter Date Diagnosis [...] short arm cast. She does work at [employer] and has to do a lot of [...] work with some restrictions. She works at [employer] and reports she does not have to [...] Order Date SCC- WRIST 3 VIEW LEFT [id number] 08/13/2024 [facility]- PT/OT EVAL AND TREAT 3X/WEEK FOR 6 WEEKS 07/16/2024 SCC- WRIST 3 VIEW LEFT [id number] 09/10/2024 Insurance Providers Payer Name Payer Address Payer Phone Subscriber Number Group Number Insured Name Patient Relationship to Insured Coverage Start Date Coverage End Date [employer] [address] [facility] [place] [address] [id number] DOI 24 MELANIE TOMPKINS Self - patient is the insured 5 [employer] [address] [place] [address] [id number] [facility] MELANIE Self - patient is the insured Medical (General) History Medical History History ICD Code Respiratory problems: Lung Disease Hypothyroidism High Blood Pressure Depression Mental Illness: Anxiety Surgical History Surgery Date(Month/Year) ORIF of a left distal radius fracture
--- OUTSIDE RECORDS SUMMARY | 2024-10-25 09:46 | XMS_ITS | CCD ---
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 Von 04-07-2022 [...] Date: 2022-04-07 03:11 Normal [facility] HEMOGLOBINon 03-12-2022 Hemoglobin (Bld) [Mass/Vol] 9.2 g/dL Critically low 12.0-16.0 [facility] Comment on above: Performed By: #### A NARF #### [facility] [address] [address] [address] Deborah Mohan ANTI NEUTROPHIL CYTOPLASMIC AB (ANCA) PRon 03-09-2022 Anti-MPO Antibodies <0.2 Normal 0.0-0.9 [facility] Comment on above: Result Comment: Perf ormed at: BN Performed By: #### B CLIENT DIRECTOR, HSTROPN, CMP #### [facility] [address] [address] [address] Deborah Mohan Anti-PR3 Antibodies <0.2 Normal 0.0-0.9 [facility] Comment on above: Result Comment: Perf ormed at: BN Performed By: #### B CLIENT DIRECTOR, HSTROPN, CMP #### [facility] [address] [address] [address] Deborah Mohan Atypical pANCA 1:160 Critically high Neg:<1:20 [facility] Comment on above: Result Comment: The atypical pANCA pattern has been observed in a significant percentage of patients with ulcerative colitis, primary sclerosing cholangitis and autoimmune hepatitis. Performed at: CB Performed By: #### B CLIENT DIRECTOR, HSTROPN, CMP #### [facility] [address] [address] [address] Deborah Mohan Cytoplasmic (C-ANCA) <1:20 Normal Neg:<1:20 [facility] Comment on above: Result Comment: Perf ormed at: CB Performed By: #### B PHILLIP JONES CMP #### [facility] [address] [address] [address] Deborah Mohan Perinuclear (P-ANCA) <1:20 Normal Neg:<1:20 [facility] Comment on above: Result Comment: The presence of positive fluorescence exhibiting P-ANCA or C-ANCA patterns alone is not specific for the diagnosis of Marlin's Granulomatosis (WG) or microscopic polyangiitis. Decisions about treatment should not be based solely on ANCA IFA results. The [employer] ANCA [employer] Consensus recommends follow up testing of positive sera with both DE-3 and MPO-ANCA enzyme immunoassays. As many as 5% serum samples are positive only by EIA. Ref. AM J Clin Pathol 1999;111:507-513. Performed at: CB Performed By: #### B PHILLIP JONES CMP #### [facility] [address] [place] [address] Dr. Deborah Mohan ANTISCLERODERMA ABon 022 Antiscleroderma-70 Antibodies <0.2 Normal 0.0-0.9 [facility] Comment on above: Performed By: #### A NARF #### [facility] [address] [place] [address] CHEST WO CONon [...] as described above. Normal [facility] CYCLIC CITRULLINATED PEPTIDE AB (CCP)on 03-09-2022 CCP Antibodies IgG/IgA 6 units Normal 0-19 [facility] Comment on above: Result Comment: Nega tive <20 Weak positive 20 - 39 Moderate positive 40 - 59 Strong positive >59 Performed By: #### B CLIENT DIRECTOR, HSTROPN, CMP #### [facility] [address] [place], [place] [address] Dr. Deborah Mohan IGG SUBCLASSES (1-4) AND TOT Kade 03-09-2022 IgG, Subclass 1 448 mg/dL Normal 248-810 [facility] Comment on above: Performed By: #### B CLIENT DIRECTOR, HSTROPN, CMP #### [facility] [address] [id number] [address] Deborah Mohan IgG, Subclass 2 253 mg/dL Normal 130-555 [facility] Comment on above: Performed By: #### B CLIENT DIRECTOR, HSTROPN, CMP #### [facility] [address] [address] [address] Deborah Mohan IgG, Subclass 3 95 mg/dL Normal 15-102 [facility] Comment on above: Performed By: #### B CLIENT DIRECTOR, HSTROPN, CMP #### [facility] [address] [id number] [address] Deborah Mohan IgG, Subclass 4 10 mg/dL Normal 2-96 [facility] Comment on above: Performed By: #### B CLIENT DIRECTOR, HSTROPN, CMP #### [facility] [address] [place], [place] [address] Dr. Deborah Mohan Immunoglobulin G, Qn, Serum 658 mg/dL Normal 586-1602 [facility] Comment on above: Performed By: #### B CLIENT DIRECTOR, HSTROPN, CMP #### [facility] [address] [id number] [address] Deborah Mohan IMMUNOGLOBULIN E, TOTALon Immunoglobulin E, Total 5 IU/mL Critically low 6-495 [facility] Comment on above: Performed By: #### I GETOT ####[facility] [address] [place], [place] [address]AvDr. Deborah Mohan MICHELL EIA W/REFLEX 5 BIOMARKER Son 03-08-2022 MICHELL Direct Negative Normal Negative [facility] Comment on above: Performed By: #### A NARF #### [facility] [address] [address] [address] Deborah Mohan ANGIOTENSION-CONVERTING ENZY ME (FRANCESCO)on 03-08-2022 FRANCESCO 32 U/L Normal 14-82 [facility] Comment on above: Performed By: #### A NGIOC ####[facility] [address] [address]DrAnkur Mohan ANTIGLOMERULAR BASEMENT MEMB ROMMEL ABSon 03-08-2022 Anti-GBM Antibodies <0.2 Normal 0.0-0.9 [facility] Comment on above: Performed By: #### A GBM #### [facility] [address] [address] [address] Deborah Mohan IMMUNOGLOBULIN IGA QUANTITIA VEon 03-06-2022 Immunoglobulin A, Qn, Serum 229 mg/dL Normal 87-352 [facility] Comment on above: Performed By: #### A NARF #### [facility] [address] [address] [address] Deborah Mohan IMMUNOGLOBULIN IGM QUANTITAT IVEon 03-06-2022 Immunoglobulin M, Qn, Serum 83 mg/dL Normal 26-217 [facility] Comment on above: Performed By: #### B CLIENT DIRECTOR, HSTROPN, CMP #### [facility] [address] [address] [address] Deborah Mohan RHEUMATOID FACTORon 03-06-20 22 RA Latex Turbid. 10.9 IU/mL Normal <14.0 [facility] Comment on above: Performed By: #### R F ####[facility] [address] [address]Dr. Deborah Mohan CREATININEon 03-05-2022 Creatinine [Mass/Vol] 1.38 mg/dL Critically high 0.55-1.02 [facility] Comment on above: Performed By: #### C MELVINA ####[facility] [address] [id number] Mohan EGFR-AF NIGERIEN 46 mL/min/1.73m2 Critically low >=60 [facility] Comment on above: Performed By: #### C MELVINA ####[facility] [address] [place], [place] [address]AcAnkur Mohan EGFR-NON AF NIGERIEN 38 mL/min/1.73m2 Critically low >=60 [facility] Comment on above: Performed By: #### C MELVINA ####[facility] [address] [place], [place] [address]NcDr. Deborah Mohan SED RATE WESTERGRENon 2021 SED RATE 92 mm/hr Critically high <=30 [facility] Comment on above: Performed By: #### B CLIENT DIRECTOR, HSTROPN, CMP #### [facility] [address] [place], [place] [address] Dr. Deborah Mohan XR DEXA BONE DENSITYon [...] 16:56 Normal [facility] XR CHEST 1 Von 03-01-2022 XR CHEST [...] 22:27 Normal [facility] XR KNEE LUANA 4V or >on 2021 [...] Date: 2022-01-29 11:09 Normal [facility] CBC AUTO DIFFon 11-29-2021 BASO # 0.1 103/ul Normal 0.0-0.1 [facility] Comment on above: Performed By: #### C BC ####[facility] [address] [address]Dr. Deborah Mohan Basophils/100 WBC (Bld) 0.8 % Normal 0.2-2.0 [facility] Comment on above: Performed By: #### C BC ####[facility] [address] [address]Dr. Deborah Mohan EO # 0.3 103/ul Normal 0.0-0.7 [facility] Comment on above: Performed By: #### C BC ####[facility] [address] [address]Dr. Deborah Mohan Eosinophils/100 WBC (Bld) 2.2 % Normal 0.9-7.0 [facility] Comment on above: Performed By: #### C BC ####[facility] [address] [place], [place] [address]Dr. Deborah Mohan Erythrocyte distribution width (RBC) [Ratio] 21.2 % Critically high 11.0-15.0 [facility] Comment on above: Performed By: #### C BC ####[facility] [address] [place], [place] [address]Dr. Deborah Mohan Hematocrit (Bld) [Volume fraction] 33.2 % Critically low 36.0-48.0 [facility] Comment on above: Performed By: #### C BC ####[facility] [address] [id number]. Deborah Mohan Hemoglobin (Bld) [Mass/Vol] 10.3 g/dL Critically low 12.0-16.0 [facility] Comment on above: Performed By: #### C BC ####[facility] [address] [id number]. Deborah Mohan IG # 0.11 10e3/ul Critically high 0.00-0.03 [facility] Comment on above: Performed By: #### C BC ####[facility] [address] [id number]. Deborah Mohan IG % 0.9 % Critically high 0.0-0.5 [facility] Comment on above: Performed By: #### C BC ####[facility] [address] [address]Dr. Deborah Mohan LYMPH # 2.2 103/ul Normal 1.2-3.8 [facility] Comment on above: Performed By: #### C BC ####[facility] [address] [id number]. Deborah Mohan Lymphocytes/100 WBC (Bld) 18.5 % Critically low 20.5-60.0 [facility] Comment on above: Performed By: #### C BC ####[facility] [address] [address]Dr. Deborah Mohan MANUAL DIFF REQ NO Normal [facility] Comment on above: Performed By: #### C BC ####[facility] [address] [id number]. Deborah Mohan MCH (RBC) [Entitic mass] 26.3 pg Critically low 26.7-34.0 [facility] Comment on above: Performed By: #### C BC ####[facility] [address] [id number]. Deborah Mohan MCHC (RBC) [Mass/Vol] 31.0 g/dL Normal 29.9-35.2 [facility] Comment on above: Performed By: #### C BC ####[facility] [address] [id number]. Deborah Mohan MCV (RBC) [Entitic vol] 84.9 fL Normal 81.0-99.0 [facility] Comment on above: Performed By: #### C BC ####[facility] [address] [id number]. Deborah Mohan MONO # 0.6 103/ul Normal 0.3-0.8 [facility] Comment on above: Performed By: #### C BC ####[facility] [address] [place] [id number]. Deborah Mohan Monocytes/100 WBC (Bld) 5.3 % Normal 1.7-12.0 [facility] Comment on above: Performed By: #### C BC ####[facility] [address] [place], [place] [address]Dr. Deborah Mohan NEUT # 8.4 103/ul Critically high 1.4-6.5 [facility] Comment on above: Performed By: #### C BC ####[facility] [address] [place], [place] [address]Dr. Deborah Mohan Neutrophils/100 WBC (Bld) 72.3 % Normal 43.0-75.0 [facility] Comment on above: Performed By: #### C BC ####[facility] [address] [place], [place] [address]Dr. Deborah Mohan Platelet mean volume (Bld) [Entitic vol] 10.1 fL Normal 9.5-13.5 [facility] Comment on above: Performed By: #### C BC ####[facility] [address] [id number]. Deborah Mohan PLT 351 103/ul Normal 150-450 [facility] Comment on above: Performed By: #### C BC ####[facility] [address] [id number]. Deborah Mohan RBC 3.91 106/ul Critically low 4.20-5.40 [facility] Comment on above: Performed By: #### C BC ####[facility] [address] [place], [place] [address]RiAnkur Mohan WBC 11.6 103/ul Critically high 4.0-11.0 [facility] Comment on above: Performed By: #### C BC ####[facility] [address] [place], [place] [address]Sm. Deborah Mohan CTA CHEST WO W CONon [...] 2. Bilateral peripheral fibrosis and/or scarring with amrv-pn-cwqqnvag groundglass densities. The groundglass densities are slightly decreased compared to the prior scan. 3. Old calcified granulomas in the chest and abdomen. 4. Large hiatal hernia. 5. Moderate diffuse osteopenia. Electronically authenticated by: BERNARDO DENNY Date: 2021-11-29 20:31 Normal [facility] D-DIMERon 11-29-2021 D-DIMER 1.14 mg/L FEU Critically high <=0.59 [facility] Comment on above: Performed By: #### A NARF #### [facility] [address] [place] [address] Dr. Deborah Mohan D-DIMER COMMENTS SEE BELOW Normal [facility] Comment on above: Result Comment: Incr [...] By: #### A NARF #### [facility] [address] [place] [address] Dr. Deborah Mohan PROF CHEM 8 (BAS METB)on Anion gap [Moles/Vol] 11.7 mmol/L Normal [facility] Comment on above: Performed By: #### B KYLEE HSTROPN #### [facility] [address] [place] [address] Dr. Deborah Mohan Calcium [Mass/Vol] 8.7 mg/dL Normal 8.5-10.1 [facility] Comment on above: Performed By: #### B KYLEE HSTROPN #### [facility] [address] [place] [address] Dr. Deborah Mohan Chloride [Moles/Vol] 107 mmol/L Normal 98-107 [facility] Comment on above: Performed By: #### B KYLEE HSTROPN #### [facility] [address] [place] [address] Dr. Deborah Mohan CO2 [Moles/Vol] 25.3 mmol/L Normal 21.0-32.0 [facility] Comment on above: Performed By: #### B KYLEE, HSTROPN #### [facility] [address] [address] [address] Deborah Mohan Creatinine [Mass/Vol] 0.98 mg/dL Normal 0.55-1.02 [facility] Comment on above: Performed By: #### B KYLEE, HSTROPN #### [facility] [address] [address] [address] Deborah Mohan EGFR-AF NIGERIEN >60 Normal >=60 [facility] Comment on above: Performed By: #### B KYLEE, HSTROPN #### [facility] [address] [place] [address] Dr. Deborah Mohan EGFR-NON AF NIGERIEN 56 mL/min/1.73m2 Critically low >=60 [facility] Comment on above: Performed By: #### B KYLEE, HSTROPN #### [facility] [address] [place] [address] Dr. Deborah Mohan Glucose [Mass/Vol] 105 mg/dL Normal 74-106 [facility] Comment on above: Performed By: #### B KYLEE, HSTROPN #### [facility] [address] [place] [address] Dr. Deborah Mohan Potassium [Moles/Vol] 4.0 mmol/L Normal 3.5-5.1 [facility] Comment on above: Performed By: #### B KYLEE, HSTROPN #### [facility] [address] [place] [address] Dr. Deborah Mohan Sodium [Moles/Vol] 140 mmol/L Normal 136-145 [facility] Comment on above: Performed By: #### B KYLEE, HSTROPN #### [facility] [address] [place] [address] Dr. Deborah Mohan Urea nitrogen [Mass/Vol] 21.0 mg/dL Critically high 7.0-18.0 [facility] Comment on above: Performed By: #### B KYLEE, HSTROPN #### [facility] [address] [place], [place] [address] Dr. Deborah Mohan Urea nitrogen/Creatinine [Mass ratio] 21.4 mg/mg Normal [facility] Comment on above: Performed By: #### B KYLEE, HSTROPN #### [facility] [address] [address] [address] Deborah Mohan TROPONIN, HIGH SENSITIVITYon 11-29-2021 HSTROP 4.5 pg/mL Normal 4.0-51.3 [facility] Comment on above: Result Comment: CUT- OFF POINTS HAVE BEEN ESTABLISHED BASED ON THE FOURTH UNIVERSAL DEFINITIONS OF MYOCARDIAL INFARCTION. THE UPPER REFERENCE LIMIT (URL) OF TROPONIN, DEFINED THE 99TH PERCENTILE OF cTnI DISTRIBUTION IN A REFERENCE POPULATION, HAS BEEN CONFIRMED THE DECISION THRESHOLD FOR [place] DIAGNOSIS. Performed By: #### H STROPN ####[facility] [address] [place], [place] [address]ZpDr. Deborah Mohan HSTROP 6.0 pg/mL Normal 4.0-51.3 [facility] Comment on above: Result Comment: CUT- OFF POINTS HAVE BEEN ESTABLISHED BASED ON THE FOURTH UNIVERSAL DEFINITIONS OF MYOCARDIAL INFARCTION. THE UPPER REFERENCE LIMIT (URL) OF TROPONIN, DEFINED THE 99TH PERCENTILE OF cTnI DISTRIBUTION IN A REFERENCE POPULATION, HAS BEEN CONFIRMED THE DECISION THRESHOLD FOR [place] DIAGNOSIS. Performed By: #### B KYLEE, HSTROPN #### [facility] [address] [address] [address] Deborah Mohan XR CHEST 1 Von [...] Date: 2021-11-29 19:20 Normal [facility] XR LSPINE W_OBLS AND FLEX_EX Ton 11-12-2021 [...] by: RAUDEL ESTRADA Date: 2021-11-12 07:56 Normal [facility] CALCIUMon 11-11-2021 Calcium [Mass/Vol] 9.0 mg/dL Normal 8.5-10.1 [facility] Comment on above: Performed By: #### A NARF #### [facility] [address] [address] [address] Deborah Mohan CREATININEon 11-11-2021 Creatinine [Mass/Vol] 1.47 mg/dL Critically high 0.55-1.02 [facility] Comment on above: Performed By: #### A NARF #### [facility] [address] [address] [address] Deborah Mohan EGFR-AF NIGERIEN 43 mL/min/1.73m2 Critically low >=60 [facility] Comment on above: Performed By: #### A NARF #### [facility] [address] [address] [address] Deborah Mohan EGFR-NON AF NIGERIEN 35 mL/min/1.73m2 Critically low >=60 [facility] Comment on above: Performed By: #### A NARF #### [facility] [address] [place] [address] Dr. Deborah Mohan Vital Signs Date Time Vital Sign Value Performing Clinician Faci lity 03-20-2024 14:57-0400 Blood Pressure Location Anderson SHASHA [facility] [place] 03-20-2024 14:57-0400 Diastolic blood pressure 82 mm[Hg] Anderson NILL [facility] [place] 03-20-2024 14:57-0400 Heart rate 70 /min Anderson NILL [facility] [place] 03-20-2024 14:57-0400 Respiratory rate 16 /min Anderson NILL [facility] [place] 03-20-2024 14:57-0400 Systolic blood pressure 126 mm[Hg] Anderson NILL [facility] [place] Encounters Encounter Date Encounter Type Care Provider Facility Start: 04-25-2024 End: 04-25-2024 ambulatory Anderson Wiley RCI[facility] Facility:CD:[id number] Start: 03-20-2024 End: 03-20-2024 ambulatory Luisito Townsend Facility: [place] Start: 03-20-2024 End: 03-20-2024 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 procedure Anderson VILLANUEVAL [facility] [place] Start: 02-10-2024 ambulatory Luisito Hoy Facility:[facility] Start: 11-28-2023 End: 11-28-2023 ambulatory [facility] Start: 10-18-2023 End: 10-18-2023 ambulatory [facility] Start: 08-01-2023 End: 08-02-2023 ambulatory [...] Clarita Nena Facility:[facility] Start: 05-08-2022 End: 05-08-2022 ambulatory ADON-C Clarita Nena Work Phone: [facility] Work Phone: Start: 05-08-2022 End: 05-08-2022 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 procedure ADON-C Clarita Nena Work Phone: [facility] Start: 04-08-2022 [...] department patient visit ROBERT HURLEY Facility:[facility] Procedures Date Procedure Procedure Detail Performing Clinician Start: 05-08-2022 Plain X-ray of left wrist ADON-C Clarita Blakeault Work Phone: Start: 05-08-2022 X-ray of left ankle [facility] -C Clarita Nena Work Phone: Start: 04-01-2018 [...] Date Payer Category Payer Unknown 2022 Medicare [id number] 2022 Self-pay 1959 Unknown [id number] 1955 Unknown [id number] 2.16.84 0.1.754403.3.579.2.593 1953 Unknown [id number] 2.16.84 0.1.061985.3.579.2.593 1953 Unknown [id number] 2.16.84 0.1.927228.3.579.2.593 1953 Unknown [id number] 2.16.84 0.1.968660.3.579.2.593 1953 Unknown [id number] 2.16.84 0.1.410467.3.579.2.593 1953 Unknown [id number] 2.16.84 0.1.894372.3.579.2.593 1953 Unknown [id number] 2.16.84 0.1.282168.3.579.2.593 1953 Unknown [id number] 2.16.84 0.1.158110.3.579.2.593 1953 Unknown [id number] 2.16.84 0.1.612678.3.579.2.593 1953 Unknown [id number] 2.16.84 0.1.447153.3.579.2.593 1953 Unknown [id number] 2.16.84 0.1.127783.3.579.2.593 1953 Unknown [id number] 2.16.84 0.1.357507.3.579.2.593 1953 Unknown [id number] 2.16.84 0.1.744713.3.579.2.593 1953 Unknown [id number] 2.16.84 0.1.877594.3.579.2.593 1953 Unknown [id number] 2.16.84 0.1.313042.3.579.2.593 1953 Unknown [id number] 2.16.84 0.1.204211.3.579.2.593 1953 Unknown [id number] 2.16.84 0.1.612747.3.579.2.593 1953 Unknown [id number] 2.16.84 0.1.637996.3.579.2.593 1953 Unknown [id number] 2.16.84 0.1.539583.3.579.2.593 1953 Unknown [id number] 2.16.84 0.1.618433.3.579.2.593 1953 Unknown [id number] 2.16.84 0.1.637453.3.579.2.593 1953 Unknown [id number] 2.16.84 0.1.207292.3.579.2.593 1953 Unknown [id number] 2.16. 840.1.715829.3.579.2.196 1955 Unknown [id number] 2.16.8 40.1.863062.3.579.2.727 1955 Unknown [id number] 2.16.8 40.1.154637.3.579.2.727 Medicare [id number] Unknown [facility] [id number] Unknown [employer]/BS [id number] Unknown [id number] 2.16.8 40.1.600225.3.579.2.531 Social History Date Type Detail [facility] Work Phone: Start: 1955 Sex Assigned At Female [facility] Start: 03-20-2024 Tobacco smoking status Ex-smoker (fi nding) [facility] Tobacco smoking status Never [facility] Sex Assigned At Female [facility] Functional Status Date Assessment Result Facility 03-20-2024 Functional Status N/A [facility] Clinical Notes 11-05-2021 to 03-20-2024 Note Date [...] 1 tab(s), Or (more content not included)... [facility] Comment on above: Result Comment: Elec tronically Signed By: SHASHA GRANT, Anderson Serrano.nigel\Date and Time Signed: 03/20/24 16:53 EDT 11-28-2023 Note [facility] Cardiology Clinic Note Chief Complaint: Patient [...] mouth in the morning., Disp: , Rfl: einhiikjkt-lwqmajzjffcum-wsix 50-325-40 mg tablet, Take 1 tablet by [...] sinus rhythm Echocar (more content not included)... [facility] 10-18-2023 Note [facility] Cardiology Clinic Note Chief Complaint: New patient here to establish care. Ref from Dr. Townsend for abnormal EKG. She also wore 7 day Holter monitor, and says she did not work while wearing this. She works at [employer] and says it's very fast paced. States she drinks a 5 Hour Energy shot almost every day. She was admitted to [facility] for migraine recently and was found to have abnormal EKG. Recently has noticed a twinge of chest pain. C/o DAI, palpitations, and lightheadedness. HPI: Mary Vick is a 68 y.o. female With a history of hypertension and hypothyroidism who presents due to an abnormal Holter monitor She was admitted to [facility] for migraine; a monitor revealed both SVT [...] Plan: Routine labs (more content not included)... [facility] 07-08-2022 Note CONSULTATION PROCEDURE DATE: [...] clinic in three months. [facility] 06-24-2022 Note CONSULTATION CONSULTATION DATE: 06/24/2022 HISTORY [...] at a time, as she works at [employer]. Current medications include Percocet 5/325 daily, diclofenac [...] for her knee injections. [facility] 04-08-2022 Note CONSULTATION CONSULTATION DATE: 04/08/2022 HISTORY [...] time unless otherwise indicated. [facility] 03-09-2022 Note CONSULTATION CONSULTATION DATE: 03/09/2022 CHIEF [...] CC: Natividad Silva CNP [facility] 01-28-2022 Note CONSULTATION CONSULTATION DATE: 01/30/2022 HISTORY [...] of her bursa injection. [facility] 01-28-2022 Note CONSULTATION PROCEDURE DATE: 01/30/2022 PREOPERATIVE [...] up in the clinic. [facility] 11-12-2021 Note PROCEDURE: XR HIPS B IL [...] ESTRADA Date: 2021-11-12 07:50 [facility] 11-05-2021 Note CONSULTATION PROCEDURE DATE:11/05/2021 PREOPERATIVE DIAGNOSIS: [...] will be followed up in the office. [facility] Signed and Approved by: JOEL RAMON . 11/18/2021 16:24:00 [facility] 11-05-2021 Note CONSULTATION CONSULTATION DATE: 11/05/2021 HISTORY [...] time, was working half a day at [employer] and since then has increased to full [...] in three months' time unless otherwise indicated. [facility] Signed and Approved by: JOEL RAMON . 11/18/2021 16:24:00 [facility] Evaluation + Plan note No data available for this section [facility] Evaluation note No assessment inform ation available [facility] Work Phone: Hospital Discharge instructions No data available for this section [facility] Progress note No data available for this section [facility] Summary Purpose Family History No Family [...] content) DATE CREATED AUTHOR 12/21/[address] [facility] DATE CREATED AUTHOR AUTHOR'S ORGANIZ ATION 05/01/2018 [facility] DATE CREATED AUTHOR AUTHOR'S ORGANIZ ATION 05/17/2022 [facility] DATE CREATED AUTHOR AUTHOR'S ORGANIZ ATION 10/06/2022 [facility] DATE CREATED AUTHOR AUTHOR'S ORGANIZ ATION 08/03/2023 [facility] DATE CREATED AUTHOR AUTHOR'S ORGANIZ ATION 11/28/2023 [facility] DATE CREATED AUTHOR AUTHOR'S ORGANIZ ATION 05/03/2024 [facility] Care Teams (unrecognized sec tion [...] PRIMARY CLINICAL RECORDS. [facility]. provides no warranty or guarantee of the accuracy or completeness of information in this document.
--- NOTE | 2024-10-25 09:50 | XR_ITS ---
The [address] [address] Patient Name: MELANIE TOMPKINS MRN: [id number] date: 1955 Sex: F Assigned Patient Location: ED.MAIN Current Patient Location: ED.MAIN Accession/Order Number: [id number] Exam Date: 10/25/2024 10:25 Report Date: 10/25/2024 10:29 At the request of: DONNY ESCALANTE MD Procedure: XR chest 1V PORTABLE AP ERECT CHEST t 100 hours CLINICAL HISTORY: Chest pain and shortness of breath COMPARISON: 06/17/[address] 10/24/2024 The heart is borderline enlarged. There is also a large hiatal hernia. Mild interstitial changes and minor groundglass density are again noted. There is minor atelectasis and/or scarring. No developing consolidation, sizable effusion or pneumothorax is noted. The bony structures are osteopenic . XR/XR chest 1V IMPRESSION: BORDERLINE CARDIOMEGALY AND LARGE HIATAL HERNIA. CONTINUED INTERSTITIAL AND MILD GROUNDGLASS PARENCHYMAL CHANGES. THIS COULD BE INFECTIOUS OR INFLAMMATORY HOWEVER FAILURE IS ALSO IN THE DIFFERENTIAL. CORRELATION IS RECOMMENDED. Impression dictated by: Alysia Avina M.D. 10/25/2024 10:29 AM Dictation Location: [place] [address] Electronically authenticated by: [id number] Y Date: 10/25/2024 10:29
--- NOTE | 2024-10-25 09:50 | ECG_ITS ---
[facility] Test Date: 2024-10-25 Pat Name: MELANIE TOMPKINS Department: Room: - Gender: Female Administrative Volunteer: : 1955 Requested By: [id number] Order Number: [id number] Reading MD: EFFIE COOK M.D. Measurements Intervals [place] Rate: 77 P: 28 WA: 156 QRS: 72 QRSD: 88 T: 66 QT: 390 QTc: 421 Interpretive Statements 1100 Sinus rhythm 9110 normal ECG Compared to ECG 06/17/2024 10:59:54 No significant changes Electronically Signed On 10-25-2024 20:19:40 EDT by EFFIE COOK M.D.
--- NOTE | 2024-10-25 09:57 | ED_ITS ---
HPI HPI - General Adult General Chief complaint: Shortness of Breath/Dyspnea Stated complaint: BACK PAIN Time Seen by Provider: 10/25/24 09:38 Source: patient Mode of arrival: walk-in History of Present Illness HPI narrative: 69-year-old female presents for bilateral upper back pain. She states that started this morning while she was at work. There was no injury or unusual activity. She has had a cough for a few days and was recently put on steroids. No fever or hemoptysis. Related Data Home Medications ?Medication ?Instructions ?Recorded ?Confirmed albuterol sulfate 90 mcg/actuation 2 inh inhalation Q6 H PRN shortness 10/21/22 10/25/24 breath activated powder inhaler of breath or wheezing aripiprazole 30 mg tablet (Abilify) 30 mg PO QDAY 06/1410/25/24 diclofenac sodium 50 mg 50 mg PO BID 10/21/22 tablet,delayed release ropinirole 1 mg tablet 1 mg PO QDAY PRN restless le g(s) 10/21/22 10/25/24 ferrous sulfate 325 mg (65 mg 325 mg PO DAILY 04/12/24 10/25/24 iron) tablet (Holly-Time) fluticasone fur. 100 mcg-umeclid 1 inh inhalation JEFFREY Y 04/12/24 10/25/24 62.5 mcg-vilant 25 mcg inhalat.powder (Trelegy Ellipta) magnesium 250 mg tablet 250 mg PO DAILY 04/12/2410/14 vitamins A,C,L-twgl-mjwkbv 4,296 1 cap PO DAILY 06/17/24 mcg-226 mg-90 mg capsule (PreserVision AREDS) amitriptyline 50 mg tablet 50 mg PO .qhs 06/06/2410/14 baclofen 5 mg tablet 5 mg PO QDAY PRN IF NEEDED F OR 06/06/24 10/25/24 SKELETAL MUSCULAR PAIN fluoxetine 20 mg capsule 80 mg PO .QD 06/06/24 liothyronine 5 mcg tablet 5 mcg PO .QD 06/06/24 lisinopril 40 mg tablet 40 mg PO .QD 06/06/24 omeprazole 20 mg capsule,delayed 20 mg PO BID 06/06/24 10/25/24 release potassium 99 mg tablet 99 mg PO DAILY 06/08/24 0610/14 Previous Rx's ?Medication ?Instructions ?Recorded levothyroxine 50 mcg tablet 50 mcg PO QDAY #30 tabs (Euthyrox) oxycodone-acetaminophen 5 mg-325 1 tab PO Q6H PRN pain 7 days #28 06/07/24 mg tablet tabs oxycodone-acetaminophen 5 mg-325 1 tab PO Q4H PRN pain 7 days #40 06/11/24 mg tablet (Percocet) tabs oxycodone-acetaminophen 5 mg-325 1 tab PO DAILY PRN pa in #30 tabs 06/28/24 mg tablet (Percocet) oxycodone-acetaminophen 5 mg-325 1 tab PO DAILY PRN pa in #30 tabs 09/03/24 mg tablet (Percocet) ibuprofen 800 mg tablet 800 mg PO Q8H PRN pain #20 t abs 10/25/24 Allergies Allergy/AdvReac Type Severity Reaction Status Date / Time sumatriptan (From Imitrex) Allergy Severe Palpitation Verified 10/25/24 09:34 s Opioid HPI Opioid Management Most Recent Opioid Data: Last Pain Scale 8 Today, 09:59 Last Pain Intensity 7 06/06/24, 14:37 Last ORT Total Score 10 06/06/24, 13:35 Last ORT Risk Category High Risk 06/06/24, 13:35 Review of Systems ROS Narrative A ten point review of systems is negative except as noted above. [facility] Medical History Syncopal episodes ?R55 - Syncope and collapse (ICD-10) Pneumonia ?J18.9 - Pneumonia, unspecified organism (ICD-10) Restless leg ?G25.81 - Restless legs syndrome (ICD-10) Dyspnea on exertion ?R06.09 - Other forms of dyspnea (ICD-10) Bilateral pulmonary contusion ?S27.322A - Contusion of lung, bilateral, initial encounter (ICD-10) Closed rib fracture ?S22.39XA - Fracture of one rib, unspecified side, initial encounter for closed fracture (ICD-10) Fall ?W19.XXXA - Unspecified fall, initial encounter (ICD-10) Chin contusion ?S00.83XA - Contusion of other part of head, initial encounter (ICD-10) Laceration of lip ?S01.511A - Laceration without foreign body of lip, initial encounter (ICD- 10) Fracture of wrist ?S62.109A - Fracture of unspecified carpal bone, unspecified wrist, initial encounter for closed fracture (ICD-10) Macular degeneration ?H35.30 - Unspecified macular degeneration (ICD-10) Seasonal allergies ?J30.2 - Other seasonal allergic rhinitis (ICD-10) Anemia ?D64.9 - Anemia, unspecified (ICD-10) Lumbar radiculopathy ?M54.16 - Radiculopathy, lumbar region (ICD-10) Muscle spasm ?M62.838 - Other muscle spasm (ICD-10) Lumbar spondylosis ?M47.816 - Spondylosis without myelopathy or radiculopathy, lumbar region (ICD-10) Thoracic spondylosis ?M47.814 - Spondylosis without myelopathy or radiculopathy, thoracic region (ICD-10) Bilateral sacroiliitis ?M46.1 - Sacroiliitis, not elsewhere classified (ICD-10) Chronic, continuous use of opioids ?F11.90 - Opioid use, unspecified, uncomplicated (ICD-10) Greater trochanteric bursitis of both hips ?M70.61 - Trochanteric bursitis, right hip (ICD-10) ?M70.62 - Trochanteric bursitis, left hip (ICD-10) Encounter for long-term opiate analgesic use ?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 (ICD-10) Bilateral primary osteoarthritis of knee ?M17.0 - Bilateral primary osteoarthritis of knee (ICD-10) Acute opioid intoxication ?F11.929 - Opioid use, unspecified with intoxication, unspecified (ICD-10) Tubal ligation evaluation ?Z01.818 - Encounter for other preprocedural examination (ICD-10) Colonoscopy planned Headache, migraine ?G43.909 - Migraine, unspecified, not intractable, without status migrainosus (ICD-10) SVT (supraventricular tachycardia) ?I47.10 - Supraventricular tachycardia, unspecified (ICD-10) Screening for colorectal cancer ?Z12.11 - Encounter for screening for malignant neoplasm of colon (ICD-10) ?Z12.12 - Encounter for screening for malignant neoplasm of rectum (ICD-10) COPD (chronic obstructive pulmonary disease) ?J44.9 - Chronic obstructive pulmonary disease, unspecified (ICD-10) Migraine ?G43.909 - Migraine, unspecified, not intractable, without status migrainosus (ICD-10) Loud snoring ?R06.83 - Snoring (ICD-10) Osteoarthritis ?M19.90 - Unspecified osteoarthritis, unspecified site (ICD-10) Neck pain ?M54.2 - Cervicalgia (ICD-10) Bipolar 1 disorder ?F31.9 - Bipolar disorder, unspecified (ICD-10) Hearing deficit ?H91.90 - Unspecified hearing loss, unspecified ear (ICD-10) Anxiety ?F41.9 - Anxiety disorder, unspecified (ICD-10) Acid reflux ?K21.9 - Gastro-esophageal reflux disease without esophagitis (ICD-10) Obesity ?E66.9 - Obesity, unspecified (ICD-10) Hypothyroid ?E03.9 - Hypothyroidism, unspecified (ICD-10) Pulmonary hypertension ?I27.20 - Pulmonary hypertension, unspecified (ICD-10) Sleep apnea ?G47.30 - Sleep apnea, unspecified (ICD-10) High cholesterol ?E78.00 - Pure hypercholesterolemia, unspecified (ICD-10) Hypertension ?I10 - Essential (primary) hypertension (ICD-10) Surgical History History of colonoscopy ?Z98.890 - Other specified postprocedural states (ICD-10) H/O bilateral salpingo-oophorectomy ?Z90.79 - Acquired absence of other genital organ(s) (ICD-10) ?Z90.722 - Acquired absence of ovaries, bilateral (ICD-10) H/O dilation and curettage ?Z98.890 - Other specified postprocedural states (ICD-10) Cataract extraction status ?Z98.49 - Cataract extraction status, unspecified eye (ICD-10) H/O blepharoplasty ?Z98.890 - Other specified postprocedural states (ICD-10) History of mandibular surgery ?Z98.890 - Other specified postprocedural states (ICD-10) Hx of tubal ligation ?Z98.51 - Tubal ligation status (ICD-10) History of appendectomy ?Z90.49 - Acquired absence of other specified parts of digestive tract (ICD- 10) History of hysterectomy ?Z90.710 - Acquired absence of both cervix and uterus (ICD-10) Family History Mother Family history of cancer Sister Family history of cancer Other Delayed recovery from anesthesia Family history of breast cancer Family history of lung cancer Social History Within the past year, how often did you have a drink containing alcohol: never Score interpretation: A score less than 3 is consistent with normal alcohol consumption. Smoking status: Former smoker Non-prescribed substance use: denies use Previous occupational history: [employer] Highest level of school completed/degree received: 11th grade Are you now , , , , never or living with a partner: In a typical week, how many times do you talk on the telephone with family, friends, or neighbors: 3 or more times per week How often do you get together with friends or relatives: 3 or more times per week How often do you attend anglican or congregational services: 4 or more times per year Do you belong to any clubs or organizations such as anglican groups unions, fraternal or athletic groups, or school groups: no Total score: 2 Score interpretation: A score of greater than or equal to 2 indicates the lowest level of social isolation. Little interest or pleasure in doing things: not at all Feeling down, depressed, or hopeless: not at all Feel stressed/tense/nervous/anxious/difficulty sleeping: not at all Do you think of yourself as: straight/heterosexual Gender Identity: female Exam Narrative Exam Narrative: Nurses note and vital signs reviewed and patient is not hypoxic. General: The patient appears in no apparent distress. Patient is speaking in full sentences Skin: Warm, dry, no pallor noted. There is no rash noted. Head: Normocephalic, atraumatic Eye: Normal conjunctiva, no drainage Ears, Nose, Mouth, and Throat: oral mucosa is moist. Nares patent. Cardiovascular: Regular Rate and Rhythm, not tachycardic Respiratory: Patient is in no distress, no accessory muscle use, lungs are clear to auscultation, no wheezing, rales or rhonchi Back: non-tender GI: Soft and nontender Musculoskeletal: The patient has no evidence of calf tenderness, no pitting edema, symmetrical pulses noted bilaterally Neurological: A&O, normal speech Psychiatric: Cooperative Constitutional Vital Signs, click to edit/add: Last Vital Signs Temp 97.7 F 10/25/24 09:37 Pulse 72 10/25/24 12:10 Resp 16 10/25/24 12:10 BP 150/76 H 10/25/24 12:00 Pulse Ox 98 10/25/24 12:10 O2 Del Method Room Air 10/25/24 10:45 Course Vital Signs Vital signs: Vital Signs Temperature 97.7 F 10/25/24 09:37 Pulse Rate 79 10/25/24 09:37 Respiratory Rate 18 10/25/24 09:37 Blood Pressure 156/77 H 10/25/24 09:37 Pulse Oximetry 96 10/25/24 09:37 Oxygen Delivery Method Room Air 10/25/24 09:37 Temperature 97.7 F 10/25/24 09:37 Pulse Rate 72 10/25/24 12:10 Respiratory Rate 16 10/25/24 12:10 Blood Pressure 150/76 H 10/25/24 12:00 Pulse Oximetry 98 10/25/24 12:10 Oxygen Delivery Method Room Air 10/25/24 10:45 Medical Decision Making MDM Narrative Medical decision making narrative: No evidence of PE or pneumothorax or pneumonia. CT scan shows presence of an apparently new T10 compression fracture and she is referred to Dr. [place] Pepper. She is already on monthly Percocet from a pain management practitioner and she was given a prescription for ibuprofen here. Treatment diagnosis and follow-up were discussed with the patient. Differential Diagnosis Differential Diagnosis: PE, pneumothorax, pneumonia, heart failure, myocardial infarction Lab Data Lab results reviewed: Yes I reviewed the patient's lab results Labs: Lab Results 10/25/24 Range/Units 10:10 WBC 14.5 H (4.0-11.0) 10^3/uL RBC 4.28 (4.20-5.40) 10^6/uL Hgb 13.0 (12.0-16.0) g/dL Hct 39.0 (36.0-48.0) % MCV 91.1 (81.0-99.0) fL MCH 30.4 (26.7-34.0) pg MCHC 33.3 (29.9-35.2) g/dL RDW 16.9 H (11.0-15.0) % Plt Count 373 (150-450) 10^3/uL MPV 10.0 (9.5-13.5) fL Neut % (Auto) 91.7 H (43.0-75.0) % Lymph % (Auto) 3.0 L (20.5-60.0) % [place] % (Auto) 2.9 (1.7-12.0) % Eos % (Auto) 0.0 L (0.9-7.0) % Baso % (Auto) 0.3 (0.2-2.0) % Neut # (Auto) 13.3 H (1.4-6.5) 10^3/uL Lymph # (Auto) 0.4 L (1.2-3.8) 10^3/uL [place] # (Auto) 0.4 (0.3-0.8) 10^3/uL Eos # (Auto) 0.0 (0.0-0.7) 10^3/uL Baso # (Auto) 0.0 (0.0-0.1) 10^3/uL Abs Immat Gran (auto) 0.31 H (0.00-0.03) 10^3/uL Imm/Tot Granulo (auto) 2.1 H (0.0-0.5) % D-Dimer 0.98 H* (<=0.59) mg/L FEU Sodium 138 (136-145) mmol/L Potassium 4.5 (3.5-5.1) mmol/L Chloride 105 (98-107) mmol/L Carbon Dioxide 23.9 (21.0-32.0) mmol/L Anion Gap 13.6 BUN 55.0 H (7.0-18.0) mg/dL Creatinine 1.63 H (0.55-1.02) mg/dL Est GFR ( Amer) 38 L (>=60 mL/min/1.73m^2) Est GFR (Non-Af Amer) 31 L (>=60 mL/min/1.73m^2) BUN/Creatinine Ratio 33.7 Glucose 131 H (74-106) mg/dL Calcium 9.2 (8.5-10.1) mg/dL Troponin I High Sens 7.0 (4.0-51.3) pg/mL NT-Pro-B Natriuret Pep 44.0 (<=900.0) pg/mL Imaging Data Chest x-ray: Radiologist's impression: ITS Impressions Chest X-Ray 10/25/24 09:50 IMPRESSION: BORDERLINE CARDIOMEGALY AND LARGE HIATAL HERNIA. CONTINUED INTERSTITIAL AND MILD GROUNDGLASS PARENCHYMAL CHANGES. THIS COULD BE INFECTIOUS OR INFLAMMATORY HOWEVER FAILURE IS ALSO IN THE DIFFERENTIAL. CORRELATION IS RECOMMENDED. Impression dictated by: Alysia Avina M.D. 10/25/2024 10:29 AM Dictation Location: [employer] Electronically authenticated by: [id number] Y Date: 10/25/2024 10:29 Chest CTA 10/25/24 10:49 IMPRESSION: NO CT EVIDENCE OF PULMONARY EMBOLISM. BORDERLINE CARDIOMEGALY. LARGE HIATAL HERNIA. SIMILAR PARENCHYMAL CHANGES AND NODULARITY. GRANULOMATOUS CHANGES. NEW T10 COMPRESSION DEFORMITY. Impression dictated by: Alysia Avina M.D. 10/25/2024 12:04 PM Dictation Location: [employer] Electronically authenticated by: [id number] Y Date: 10/25/2024 12:04 ECG Data Attestation: I personally reviewed and interpreted this ECG as follows: (EKG on my interpretation shows sinus rhythm with rate of 77 and no acute change) Discharge Plan Discharge Chief Complaint: Shortness of Breath/Dyspnea Clinical Impression: Compression fracture of T10 vertebra Patient Disposition: Home, Self-Care Time of Disposition Decision: 12:21 Condition: Good Mode of Transportation: Private Vehicle Prescriptions / Home Meds: New ibuprofen 800 mg tablet 800 mg PO Q8H PRN (Reason: pain) Qty: 20 0RF No Action aripiprazole [Abilify] 30 mg tablet 30 mg PO QDAY ropinirole 1 mg tablet 1 mg PO QDAY PRN (Reason: restless leg(s)) albuterol sulfate 90 mcg/actuation aerosol powdr breath activated 2 inh inhalation Q6H PRN (Reason: shortness of breath or wheezing) diclofenac sodium 50 mg tablet,delayed release (DR/EC) 50 mg PO BID levothyroxine [Euthyrox] 50 mcg tablet 50 mcg PO QDAY Qty: 30 11RF magnesium 250 mg tablet 250 mg PO DAILY ferrous sulfate [Holly-Time] 325 mg (65 mg iron) tablet 325 mg PO DAILY PreserVision AREDS 4,296 mcg-226 mg-90 mg capsule 1 cap PO DAILY Trelegy Ellipta 100-62.5-25 mcg blister with device 1 inh inhalation DAILY amitriptyline 50 mg tablet 50 mg PO .qhs lisinopril 40 mg tablet 40 mg PO .QD fluoxetine 20 mg capsule 80 mg PO .QD baclofen 5 mg tablet 5 mg PO QDAY PRN (Reason: IF NEEDED FOR SKELETAL MUSCULAR PAIN) liothyronine 5 mcg tablet 5 mcg PO .QD omeprazole 20 mg capsule,delayed release(DR/EC) 20 mg PO BID oxycodone-acetaminophen 5-325 mg Tablet 1 tab PO Q6H PRN (Reason: pain) 7 Days Qty: 28 0RF potassium 99 mg tablet 99 mg PO DAILY oxycodone-acetaminophen [Percocet] 5-325 mg tablet 1 tab PO Q4H PRN (Reason: pain) 7 Days Qty: 40 0RF oxycodone-acetaminophen [Percocet] 5-325 mg tablet 1 tab PO DAILY PRN (Reason: pain) Qty: 30 0RF oxycodone-acetaminophen [Percocet] 5-325 mg tablet 1 tab PO DAILY PRN (Reason: pain) Qty: 30 0RF Print Language: Croatian Instructions: Vertebral Compression Fracture (ED) Referrals: POLO SILVA [Primary Care Provider, Family Practice] - 1 week Rhett Norton MD [Physician] - 1 week
[2024-10-25 10:17] LABS: Basophils Percent Auto 0.3 % (0.2-2.0); Immature Granulocytes Abs Auto 0.31 10^3/uL (0.00-0.03); Immature Granulocytes Pct Auto 2.1 % (0.0-0.5); Lymphocytes Absolute Auto 0.4 10^3/uL (1.2-3.8); Mean Corpuscular HGB Conc 33.3 g/dL (29.9-35.2); Mean Corpuscular Hemoglobin 30.4 pg (26.7-34.0); Mean Corpuscular Volume 91.1 fL (81.0-99.0); Monocytes Absolute Auto 0.4 10^3/uL (0.3-0.8); Monocytes Percent Auto 2.9 % (1.7-12.0); Neutrophils Absolute Auto 13.3 10^3/uL (1.4-6.5); Neutrophils Percent Auto 91.7 % (43.0-75.0); Platelet Count 373 10^3/uL (150-450); Red Blood Count 4.28 10^6/uL (4.20-5.40); Red Cell Distribution Width 16.9 % (11.0-15.0); White Blood Count 14.5 10^3/uL (4.0-11.0)
[2024-10-25 10:36] LABS: Anion Gap 13.6; BUN Creatinine Ratio 33.7; Calcium 9.2 mg/dL (8.5-10.1); Carbon Dioxide 23.9 mmol/L (21.0-32.0); Chloride 105 mmol/L (98-107); Estimated GFR (African America 38 (>=60 mL/min/1.73m^2); Estimated GFR (Non-African Ame 31 (>=60 mL/min/1.73m^2); Glucose 131 mg/dL (74-106); Potassium 4.5 mmol/L (3.5-5.1); Sodium 138 mmol/L (136-145)
[2024-10-25] MEDS: KETOROLAC TROMETHAMINE 30 MG/ML VIAL IVP (10:36)
[2024-10-25 10:49] LABS: D Dimer 0.98 mg/L FEU (<=0.59)
--- NOTE | 2024-10-25 10:49 | CT_ITS ---
The [address] [address] Patient Name: MELANIE TOMPKINS MRN: [id number] date: 1955 Sex: F Assigned Patient Location: ER Current Patient Location: ER Accession/Order Number: [id number] Exam Date: 10/25/2024 11:50 Report Date: 10/25/2024 12:04 At the request of: DONNY ESCALANTE MD Procedure: CT angio chest CT PULMONARY ANGIOGRAM WITH CONTRAST COMPARISON: 10/23/2024 and 06/06/2024 CLINICAL DATA: Acute shortness of breath and chest pain. Elevated d-dimer. TECHNIQUE: Spiral images were obtained through the chest following intravenous administration of 100 mL of Visipaque 270. Images were reviewed using both narrow and wide window settings. Sagittal, coronal and 3 D volume-rendered reconstructions were performed and reviewed. This CT exam was performed using one or more following dose reduction techniques: Automated exposure control, adjustment of the mA and/or kV according to patient size, or use of iterative reconstruction technique. FINDINGS: The heart is borderline prominent. No pericardial effusion is seen. There is coronary artery disease. No aortic aneurysm or dissection is noted. There is atherosclerotic plaque at the aortic arch, descending aorta and proximal great vessels. There is adequate opacification of the pulmonary arteries. No emboli are identified. Calcified subcarinal and left hilar granulomas are seen. There is a large hiatal hernia. A new compression fracture is visualized at T10. There are old sternal and anterior rib fractures. There are continued interstitial changes and areas of patchy groundglass opacity, unchanged from the recent comparison. There is no developing consolidation, pleural effusion or pneumothorax. A similar tiny nodular density is present at the lateral right middle lobe. There is a left lower lobe calcified granuloma. Limited cuts through the upper abdomen show additional atherosclerotic disease. There are calcified splenic granulomas.. CT/CT angio chest IMPRESSION: NO CT EVIDENCE OF PULMONARY EMBOLISM. BORDERLINE CARDIOMEGALY. LARGE HIATAL HERNIA. SIMILAR PARENCHYMAL CHANGES AND NODULARITY. GRANULOMATOUS CHANGES. NEW T10 COMPRESSION DEFORMITY. Impression dictated by: Alysia Avina M.D. 10/25/2024 12:04 PM Dictation Location: [place] [address] Electronically authenticated by: [id number] Y Date: 10/25/2024 12:04
== END 2024-10-25 12:44 | disposition home or self-care (01) ==
PROVIDERS: Emergency Provider Emergency Medicine; PCP Nurse Practitioner Family
DX: M48.54XA Collapsed vertebra, not elsewhere classified, thoracic region, initial encounter for fracture (principal); R06.02 Shortness of breath; Z90.722 Acquired absence of ovaries, bilateral; Z90.79 Acquired absence of other genital organ(s); Z90.710 Acquired absence of both cervix and uterus; Z87.891 Personal history of nicotine dependence; K44.9 Diaphragmatic hernia without obstruction or gangrene
CPT/HCPCS: 36415; 71045; 71275; 80048; 83880; 84484; 85025; 85378; 93005; 96374; 99285; J1885; Q9966

== ENCOUNTER 2024-11-26 08:01 | Outpatient (OUT) | payer MEDICARE, SELFPAY ==
--- OUTSIDE RECORDS SUMMARY | 2024-10-22 | XMS_ITS ---
Author Name Auto Generated Organization [facility] Care Team Providers Care Golf Course Superintendent Name Role Phone Ash PULLIAM Attending Unavailable Travis Townsend Referring Unavailable Ash PULLIAM Attending Unavailable Ranjan GRANT, Gabriella Dumont Attending Unavailable BENIGNO Attending Unavailable PROBLEMS DATE TYPE CONDITION / CODE ATTENDING STATUS [facility] 11/28/2023 Admitting Diagnosis Shortness of breath / R06.02(ICD-10) [facility] 11/28/2023 Admitting Diagnosis Nonrheumatic aortic (valve) insufficiency / I35.1(ICD-10) [facility] 11/28/2023 Admitting Diagnosis Palpitations / R00.2(ICD-10) [facility] PROCEDURES No Procedure Records Found RESULTS GENERAL SURGERY OFFICE/CLINI C NOTE Observed: 03/20/2024 4:53 PM Status: F Source: [facility] General Surgery Office/Clini c Note Chief Complaint consultation for colonoscopy HPI [...] 1 mg Tab, 1 mg= 1 tab(s), Oral, Bedtime Allergies Imitrex (Patient reported problems) Social History Alcohol - Denies Alcohol Use, 03/20/2024 Substance Abuse - Denies Substance Abuse, 03/20/2024 Tobacco Former smoker, quit more than 30 days ago Tobacco Use:. Never Smokeless Tobacco Use:. Cigarettes, 1.5 per day. Started age 11.0 Years. Stopped age 66 Years., 03/20/2024 Family History Primary malignant neoplasm of lung: Mother and Sister. Result Comment: Electronical ly Signed By: SHASHA GRANT, Ash Wiley\.br\Date and Time Signed: 03/20/24 16:53 EDT AMBULATORY VISIT SUMMARY Observed: 03/20 3:27 PM Status: F Source: [facility] Ambulatory Visit Summary MARY TOMPKINS :1955 Visit Date:03/20/2024 Ambulatory Visit Instructions Your Care Team Attending Physician - Ash PULLIAM MD Primary Care Physician - Travis Townsend MD Referring Physician - Travis Townsend MD This Is Your Medications List Contact prescribing physician if questions or concerns acetaminophen-oxycodone (acetaminophen-oxycodone 325 mg-5 mg Tab) amitriptyline (amitriptyline 50 [...] abdominal hysterectomy and bilateral salpingo-oophorectomy, Tubal ligation. Discharge Vitals Heart Rate (Peripheral) 70 Respiratory Rate 16 Blood Pressure 126/82 Height 157.4 cm Height 62 in Weight 87 kg Weight 191.4 lb BMI 35.12 Medications What How Much When Instructions Unchanged acetaminophen-oxycodone (acetaminophen-oxycodone 325 mg-5 mg Tab) as directed Contact [...] you for choosing us for your care. OFFICE VISIT Observed: 11/28/2023 9:15 AM Status: COMPLETED Source: [facility] [id number] Mary Tompkins 0 1955 F Date Provider Department Center 11/28/2023 271-MIRIAM SAENZ CARD [facility] Family History Problem Relation Age of Onset Cancer Mother Cancer Sister Family Status - Relation Status Age at Mother Sister Level of Service:23941 FL OFFICE/OUTPATIENT ESTABLISHED MOD MDM 30 MIN PROGRESS Observed: 11/28/2023 9:15 AM Status: COMPLETED Source: [facility] Cardiology Clinic Note Chief Complaint: Patient here for follow up labs, stress test, and echo performed last week. Lisinopril was increased to 40mg daily at last apt in September 2023. She was just diagnosed with CONNIE and began cpap therapy last week. Says her DAI is bad . HPI: Mary Tompkins is a 68 y.o. female She still [...] mouth in the morning., Disp: , Rfl: pjcbhjekla-bslgvwcjjhlqv-djua 50-325-40 mg tablet, Take 1 tablet by [...] sinus arrhythmia ECG 10/18/2023 Normal sinus rhythm Echocardiogram 10/2023 Global left ventricular systolic function is normal Mild concentric left ventricular hypertrophy Normal right ventricular size and systolic function Severe left atrial dilatation Trileaflet aortic valve with mild to moderate regurgitation and no stenosis Mildly elevated right-sided pressures; RVSP 35 mmHg Stress test 11/21/2023: No evidence of ischemic EKG changes seen Normal nuclear medicine myocardial perfusion scan PFTs 09/2023 Impressions: -Mild restrictive pattern on spirometry not confirmed as TLC is normal. Isolated moderate diffusion impairment. Mild anemia present (Hb 9.2g/dL). When compared to prior testing, there is not a significant regroover the past 4 years. This pattern can be seen in, but not restricted to, cardiopulmonary vascular disorders, early interstitial lung disease, and early emphysema. Clinical correlation required. Assessment: Palpitations: abnormal EKG Anemia Supraventricular tachycardia on Holter Bradycardia; possible junctional rhythm - hypoxia related? Mild to moderate aortic regurgitation Essential hypertension - uncontrolled Exertional shortness of breath Excessive caffeine Plan: Work up and treatment for anemia as appropriate - Hb 10.2 g/dL; I urged her to discuss this with her family physician as soon as she can. She should cut back on any nonsteroidal anti-inflammatory drugs and other gastric irritants. She may need referral to GI for endoscopy. I recommended that she be referred back to pulmonology given her history of prior smoking, abnormal PFTs, and continued shortness of breath Highly recommend the patient cut down on caffeinated beverages, and other stimulants If her BP continues to be elevated, consider discontinuing metoprolol succinate and initiating Coreg 25 mg p.o. twice daily Should the patient continue to experience palpitations will consider referral to our EP colleagues given evidence of SVT and bradycardia on her event monitor Return to clinic in 1 year with an echocardiogram prior to her visit Miriam Saenz MD, MPH, [facility], [facility] Interventional Cardiology Pager Email: [email or web address] ALLERGIES DATE TYPE / CODE NAME / CODE REACTION SEVERITY SOURCE 03/19/2020 DRUG INGREDI/[id number] 3(SNOMED CT) SUMATRIPTAN Other [facility] /[id number](SNO MED CT) Imitrex [id number] [facility] ENCOUNTERS ADMIT/DISCHARGE ACCOUNT NUMBER ADMITTING ENCOUNTER CLASS LOCATION SOURCE 10/22/2024/ 5 [id number] [place] 04/25/2024/ 4 [id number] Ambulatory CD:[id number] 7Building:CD :[id number] [facility] 03/20/2024/ 4 [id number] [facility] 2 [facility] 02/10/2024 [id number] [facility]ulatory [facility] 11/28/2023/ 4 [id number] Ambulatory Building:[facility] PAYERS ENCOUNTER GUARANTOR PAYER SUBSCRIBER SOURCE 10/22/2024 Mary DeanOB: [id number] [place] [address] Primary Insurance:AnthemPolicy Number: Effective Date:[id number] Name:[address], [place] [address]EJ: Mary Kyree JermaineOB: [id number] [place] [address] [facility] 04/25/2024 MARY Adorno JERMAINEOB: ALEX DRTel: ~ ~(4 1 (HP) Primary Insurance:AnthemPolicy Number: [id number] Date:[id number], [place] [address]XU: MARY M TEQUILA [facility] 03/20/2024 MARY Adorno JERMAINEOB: [id number] ALEX DRTel: ~ ~(4 1 (HP) Primary Insurance:AnthemPolicy Number: [id number] Date:0553-87-57FW [address] [place] [address]RP: MARY Adorno TEQUILA [facility] 11/28/2023 Primary Insurance:ANTHEM MEDICARE ADVANTAGEPolicy Number: [id number] Date:2021-05-23 MARY DEANOB: [id number] [place] [address] [facility]
--- OUTSIDE RECORDS SUMMARY | 2024-10-26 06:30 | XMS_ITS ---
Author Organization [facility] in [place] Address [address] [place] [address] Care Team Providers Care Director Of Pulmonary Unit Name Role Phone Natividad Milton Primary Care Provider Allergies Allergen (clinical drug ingredient) Drug/Non Drug Allergy documented on EMR Reaction Allergy Type Onset Date Status sumatriptan Imitrex Unknown Drug Allergy Activ e REASON FOR VISIT back pain- went to [facility] ER yesterday, compression fracture T10- sees specialist next Tuesday (Dr Grove), had Tordal shot yesterday- would like Tordal pills Medications Medication SIG (Take, Route, Frequency, Duration) Notes Start Date End Date Status Zepbound 2.5 MG/0.5ML 0.5 mL Subcutaneou s for 30 days call for next dose 05/01/2024 Active Ketorolac Tromethamine 10 MG 1 tablet with food or milk as needed Orally every 8 hrs prn for 3 days hold diclofenac, ibuprofen while taking start 10/27/24 10/26/2024 Active Levothyroxine Sodium 50 MCG 1 tablet in the morning on an empty stomach Orally Once a day for 90 days Active Abilify 30 MG 1 tablet Orally Once a day for 90 days Active Amitriptyline HCl 50 mg TAKE 1 TABLET BY MOUTH AT BEDTIME for 30 Active Trelegy Ellipta 100-62.5-25 MCG/ACT 1 puff Inhalation Once a day for 30 days 04/09/2024 Active PROzac 20 MG 4 capsule Orally once daily for 90 days Active rOPINIRole HCl 1 MG 1 tablet 1 to 3 hours before bedtime Orally Once a day for 30 days Active Ondansetron HCl 4 MG 1 tablet Orally Onc e a day prn for 14 days 02/29/2024 Active oxyCODONE-Acetaminoph en 5-325 MG Oral for 30 Days Active Ferrous Sulfate 325 (65 Fe) MG 1 tablet Orally Three times a Week for 30 days 01/31/2024 Active Diclofenac Sodium 50 MG 1 tablet Orally Twice a day Active Lisinopril 20 MG 1 tablet Orally Once a day Active Omeprazole 20 MG 1 capsule 1/2 to 1 hour before morning meal Orally BID for 30 days 08/27/2024 Active Omeprazole Magnesium 20 MG 1 tablet 1/2 to 1 hour before morning meal Orally Once a day for 30 days Active Baclofen 5 MG 1 -2 tablet as needed Orally Once a day for 14 days 02/29/2024 Active Social History Tobacco Use: Social History Observation Description Date Details (start date - stop date) Former Smoker 05/23/1967 - 05/23/2020 Tobacco Use/Smoking Question Answer Notes Patient is a former smoker When did you start smoking? 05/23/1967 When did you stop smoking? 05/23/2020 How long has it been since you last smoked? 1-5 years Section Notes: Smoking on and off from 30 y ears until passed- then picked it back up- quit in 2020 Vital Signs Weight 200.8 lbs 10/26/2024 Height 62 in 10/26/2024 Blood pressure systolic 160 mm Hg 10/27/19 25 Blood pressure diastolic 88 mm Hg 025 BMI 36.72 kg/m2 10/26/2024 Encounters Encounter Location Date Provider Diagnosis [facility] [address] [place] [address] 10/26/2024 Natividad Milton Osteoporosis M81.0 ; Hypothyroid E03.9 and Compression fracture of body of thoracic vertebra S22.000A Assessments Encounter Date Diagnosis (ICD Code) Assessment Notes Treatment Notes Treatment Clinical Notes Section Notes 10/26/2024 Osteoporosis (ICD-10 - M81.0) check on continuing infusions at 10/26/2024 Hypothyroid (ICD-10 - E03.9) 10/26/2024 Compression fracture of body of thoracic vertebra (ICD-10 - S22.000A) took percocet didnt help toradol injection helped yesterday fu pain man, dr David Plan Of Treatment Medication Medication Name Sig Start Date Stop Date Notes Ketorolac Tromethamine 10 MG 1 tablet with food or milk as needed Orally every 8 hrs prn for 3 days 10/26/2024 hold diclofenac, ibuprofen while taking start 10/27/24 Levothyroxine Sodium 50 MCG 1 tablet in the morning on an empty stomach Orally Once a day for 90 days Treatment Notes Assessment Notes Osteoporosis check on continuing infusions at Compression fracture of body of thoracic vertebra took percocet didnt help toradol injection helped yesterday fu pain man, dr Hernandez Next Appt Details Follow Up: prn, Reason: Medications Administered Medication Instructions Date of Administration Dosage Notes Ketorolac Tromethamine 10/26/2024 60 mg Progress Notes * Mary TOMPKINS MDOB:1955 (69 yo F)Acc No.[id number]:10/26/2024 Progress Note Patient: Mary DURANT Provider: Giovana Milton ([facility]), INSURANCE ADJUSTOR :1955 A ge:69 Y S ex:Female Date:10/26/2024 Address:[address] [place] [address] , [place] , [id number] Check In:10:03 AM ESTCheck O ut:10:25 AM EST Subjective: * Chief Complaints: * 1 . back pain- went to [facility] ER yesterday, compression fracture T10- sees specialist next Tuesday (Dr Grove). 2. had Tordal shot yesterday- would like Tordal pills. * HPI: G eneral: needs refill on levo check on osteo infusions at [facility] had for over a year she thinks no injury, at work and back pain started bra line, went to ER, imaging show comp rx T10 toradol helped requesting pills for over the weekend. * ROS: G eneral/Constitutional: Fever d enies. H eadache d enies. W eight loss�denies. O phthalmologic: Discharge d enies. E ye Pain d enies. I tching and redness d enies. E NT: Nasal discharge d enies. N gaston congestion d enies.�Sore throat d enies. C ardiovascular: Chest tightness/ heavy pressure d enies. R apid heart rate d enies. S welling of extremities d enies. C hest pain d enies. � R espiratory: Productive cough d enies. C hest pain d enies. C ough d enies. S hortness of breath d enies. W heezing d enies. � G astrointestinal: Abdominal pain d enies. C onstipation d enies. D ecreased appetite d enies. D iarrhea d enies. N ausea d enies. V omiting�denies. G enitourinary: Urinary incontinence d enies. P ainful urination d enies. M usculoskeletal: Back pain a dmits below bra line 12/30. N tiffany pain d enies. M uscle aches d enies. S kin: Rash d enies. S kin lesion(s) d enies. � * Active Problem List J44.1 COPD exacerbation Modified On:08/23/2022 Status:confirmed U07.1 COVID Modified On:08/24/2022 Status:confirmed M81.0 Age-related osteopor osis without current pathological fracture Modified On:11/18/2022 Status:confirmed K44.9 Diaphragmatic hernia without obstruction or [...] On:06/07/2024 Status:confirmed E03.9 Acquired hypothyroid ism Modified On:06/28/2024 Status:confirmed * Medical History: R estless legs, [...] of unspecified site. S on(s): alive. D aughter(s): alive.�1 brother(s) , 2 sister(s) . 1 son(s) , 1 daughter(s) . . Dad passed in car accident Sister passed from Lung Cancer. * Social History: T obacco Use: T obacco Use/Smoking P atient is a f ormer smoker W hen did you start smoking? 0 05/23/1967 W hen did you stop smoking? 0 05/23/2020 H ow long has it been since you last smoked?�1-5 years S moking on and off from 30 [...] Orally Once a day , Taking Trelegy Ellipta(Nyepgecowyg-Fmfwsphfg-Fngsgr) 100-62.5-25 MCG/ACT Aerosol Powder Breath Activated 1 puff Inhalation Once a day , Taking Zepbound(Tirzepatide- Weight Management) 2.5 MG/0.5ML Solution Auto-injector 0.5 mL Subcutaneous , Notes to Pharmacist: call for next dose, Medication List reviewed and reconciled with the patient * Allergies: I mitrex. Objective: * Vitals: W t:200.8lbs, Ht: 62 in, BP:160/88mm Hg, BMI:36.72Index, Ht-cm: 157.48 cm, Wt-k.08 kg. * Examination: G eneral Examinations: GENERAL APPEARANCE: a lert and oriented, i n no acute distress. EYES: c onjunctiva normal, sclera non-icteric. NOSE: n ormal external appearance. LUNGS: c lear to auscultation bilaterally. CARDIO: r egular rate and rhythm, S1, S2 normal. BACK: t enderness to palpation mid back. MUSCULOSKELETAL: d ecreased ROM due to back pain. SKIN: w arm and dry. Assessment: * Assessment: 1. O steoporosis - M81.0 (Primary) 2 . H ypothyroid - E03.9 �3. C ompression fracture of body of thoracic vertebra - S22.000A Plan: * Treatment: 2. H ypothyroid Refill Levothyroxine Sodium Tablet, 50 MCG, 1 tablet in the morning on an empty stomach, Orally, Once a day, 90 days, 90 Tablet, Refills 3. 3. C ompression fracture of body of thoracic vertebra Start Ketorolac Tromethamine Tablet, 10 MG, 1 tablet with food or milk as needed, Orally, every 8 hrs prn, 3 days, 9, Refills 0, Notes to Pharmacist: hold diclofenac, ibuprofen while takingstart 10/27/24. Notes: took percocet didnt help toradol injection helped yesterday fu pain man, dr Hernandez * Therapeutic Injections: Ketorolac Tromethamine : 60 mg (Route: Intramuscular) given by QUAN Abrams on left deltoid (Compression fracture of body of thoracic vertebra) * Procedure Codes: [id number] THERAP.INJ. OF MED. INTRAMUSCULAR OR SUBCUTANEOUS, J1885 TORADOL, PER 15 MG, Units: 4.00 , Modifiers: JZ * Preventive Medicine: Screenings/Counseling: B CA ACTION PLAN Above Normal BMI Follow-up D ietary management education, guidance, and counseling * Follow Up: p rn * * Electronically signed by Su Milton , DATA ENGINEER, RAILROAD REPAIRER.INSURANCE [id number] on 10/29/2024 at 11:12 AM EDT Sign off status: Completed Visit Status: C HK (Check Out) true * Provider: Giovana Milton ([facility]), INSURANCE ADJUSTOR Date: 0 10/26/2024 Generated for Nelda valdez/Michelle/eTransmitting on: 0 11/26/2024 08:03 AM EDT History and Physical Notes * HPI (History of Present Illness) Category Sub-Category Detail Notes Category Not es General needs refill on levo check on osteo infusions at hospital hasnt had for over a year she thinks no injury, at work and back pain started bra line, went to ER, imaging show comp rx T10 toradol helped requesting pills for over the weekend Examination Category Sub-Category Detail Notes Category Not es General Examinations GENERAL APPEARANCE: alert a nd oriented, in no acute distress EYES: conjunctiva normal, sclera non-icteric EARS: NOSE: normal external appe arance THROAT: CARDIO: regular rate and rhy thm, S1, S2 normal LUNGS: clear to auscultatio n bilaterally ABDOMEN: SKIN: warm and dry BACK: tenderness to palpat ion mid back MUSCULOSKELETAL: decreased ROM due to back pain LYMPH NODES:
--- OUTSIDE RECORDS SUMMARY | 2024-10-26 07:02 | XMS_ITS ---
Author Organization [facility] in [place] Address [address] [place] [address] Care Team Providers Care Laborer [place] Name Role Phone Natividad Milton Primary Care Provider REASON FOR VISIT Dexa Encounters Encounter Location Date Provider Diagnosis [facility] [place] [address] [place] [address] 10/26/2024 Natividad Milton Compression fracture of body of thoracic vertebra S22.000A and Osteoporosis M81.0 Assessments Encounter Date Diagnosis (ICD Code) Assessment Notes Treatment Notes Treatment Clinical Notes Section Notes 10/26/2024 Compression fracture of body of thoracic vertebra (ICD-10 - S22.000A) 10/26/2024 Osteoporosis (ICD-10 - M81.0) Plan Of Treatment Pending Test Test Name Order Date XR DEXA BONE DENSITY 10/26/2024 Progress Notes * Mary TOMPKINS MDOB:1955 (69 yo F)Acc No.[id number]:10/26/2024 Patient: Massimo PRAKASHMary :1955 A ge:69 Y S ex:Female Address:[address] [place] [address] [place] [address] Subjective: * Chief Complaints: * D exa * Medical History: * Surgical History: * Hospitalization/Major Diagno stic Procedure: * Medications: Objective: * Vitals: * Physical Examination: Assessment: * Assessment: 1. C ompression fracture of body of thoracic vertebra - S22.000A (Primary) 2 .�Osteoporosis - M81.0 Plan: * Treatment: * Procedure Codes: * true * Date: Generated for Nelda valdez/Michelle/Lorna on: 11/26/2024 08:03 AM EDT
--- OUTSIDE RECORDS SUMMARY | 2024-11-05 12:01 | XMS_ITS ---
Author Organization [facility] in [place] Address [address] [place] [address] Care Team Providers Care Residential Program Coordinator Name Role Phone Natividad Milton Primary Care Provider [phone] REASON FOR VISIT rf Lisinopril Medications Medication SIG (Take, Route, Fr equency, Duration) Notes Start Date End Date Status Lisinopril 20 MG 1 tablet Orally Once a day for 30 days Active Encounters Encounter Location Date Provider Diagnosis [facility] [address] [place] [address] 11/05/2024 Natividad Milton Plan Of Treatment Medication Medication Name Sig Start Date Stop Date Notes Lisinopril 20 MG 1 tablet Orally Once a day for 30 days Progress Notes * Mary TOMPKINS MDOB:1955 (69 yo F)Acc No.[id number]:11/05/2024 Patient: Mary DURANT :1955 A ge:69 Y S ex:Female Address:[facility] [address] [address] * Refills Refill Lisinopril Tablet, 20 MG, Orally, 30, 1 tablet, Once a day, 30 days, Refills=11 * true * Date: Generated for Printi ng/Faalexg/eTransmitting on: 0 11/26/2024 08:03 AM EDT
--- OUTSIDE RECORDS SUMMARY | 2024-11-26 08:03 | XMS_ITS | Clinical Summary ---
Author Organization [facility] Address [address] [place] [address] Care Team Providers Care Behavioral Psychologist Name Role Phone Bull Forrest MD Primary Care Provider [phone] Allergies No known active allergies Medications amLODIPine [...] of Treatment Not on file Insurance MEDICARE [address] MEDICARE Care Teams Behavioral Psychologist Relationship Specialty Start Date End Date Bull Forrest MD [address] [place] [address] PCP - General Family Medicine 04/01/18
--- OUTSIDE RECORDS SUMMARY | 2024-11-26 08:03 | XMS_ITS | Patient Health Record ---
Author Organization [facility] Address [address] [place] [address] Care Team Providers Care Pyrotechnist Name Role Phone Natividad Milton Primary Care Provider UnavailWilli Moreno Unavailable [phone] Richard Askew Unavailable [phone] Shyanne Berg Unavailable [phone] Allergies Allergen (clinical drug ingredient) Drug/Non Drug Allergy documented on EMR Reaction Allergy Type Onset Date Status sumatriptan Imitrex Unknown Drug Allergy Activ e Results Component Value Reference Range Notes SCC- WRIST 3 VIEW LEFT 29176 Reviewed date:08/09/2024 01:53:02 PM Interpretation: Performing Lab: Notes/Report: SCC- WRIST 3 VIEW LEFT 82643 Reviewed date:06/27/2024 09:42:44 AM Interpretation: Performing Lab: Notes/Report: Reason For Referral Reason APPROVED for Hosp. C onsult 06/07 APPROVED for ORIF done 06/11 Diagnosis 1 Other intraarticular fracture of lower end of left radius, initial encounter for closed fracture (S52.572A) Referral Organization [facility] Referring Provider First Name Willi Referring Provider Last Name Brian Referring Provider Speciality Orthopedic Surgery Referred Organization [facility] Referred Address [address] [place],[address], General Notes Pau Tucker 11:56:12 AM > Lauren asked that I submit c9's for her Hospital Consult on 06/07 and SX on 06/11. Faxed c9's with reports., Caitlin Pau 06/22/2024 03:30:13 PM > rcvd c9 auth for SX done 06/11, see Caitlin orozco Jessika 06/22/2024 03:32:00 PM > rcvd c9 auth for Hospital consult on 06/07, see attachment Referral Priority Routine Reason AD// WORK SLIP PLEAS E Diagnosis 1 Other intraarticular fracture of lower end of left radius, initial encounter for closed fracture (S52.572A) Referral Organization [facility] Referring Provider First Name Willi Referring Provider Last Name Reno Referring Provider Speciality Orthopedic Surgery Referred Organization [facility] Referred Address [facility] [address], [place],[address], General Notes Kierra Brice 06/20 09:09:27 AM >Need work slip for 06/11/2024 sx please. [facility] called asking for. Thanks so much, Pam Licona 06/20/2024 09:30:15 AM > IN UNDER CHART DOCSBabs Melanie 06/20/2024 10:16:35 AM >noted. faxed [employer] Referral Priority Urgent Reason addressed,APPROVED f or casting done 06/25 Diagnosis 1 Other intraarticular fracture of lower end of left radius, initial encounter for closed fracture (S52.572A) Referral Organization [facility] Referring Provider First Name Willi Referring Provider Last Name Reno Referring Provider Speciality Orthopedic Surgery [facility] Referred Address [address],[place], [place],[address], General Notes Pau Tucker 09:05:49 AM > [...] Priority Routine Reason APPROVED FOR P.T. AT [place], OFF WORK, [place] (PATIENT WILL GET IN [place] OFFICE) AD [employer] APPROVED for dme from 07/16 Diagnosis 1 Other intraarticular fracture of lower end of left radius, subsequent encounter for closed fracture with routine healing (S52.572D) Referral Organization [facility] Referring Provider First Name Willi Referring Provider Last Name Brian Referring Provider Speciality Orthopedic Surgery Referred Organization [facility] Referred Address [address] [place] [address],[address],[place], [place],[address], General Notes Pau Tucker 08:01:11 AM > Can you please add dx for displaced ulnar styloid fx, dictated from [facility], Jenny 07/17/2024 10:34:00 AM >done, Pau Tucker 07/17/2024 11:19:39 AM > faxed note and c9 for PT, Pau Tucker 07/19/2024 10:44:12 AM > rcvd C9 Auth PT LT arm 12 visits 07/17 to 09/07, see attachment. Where at in [place] would she go for PT?, Pam Licona 07/19/2024 11:15:20 AM >[facility] Pau Tucker 08/06/2024 02:30:15 PM >, Miranda Galloway 08/13/2024 03:17:21 PM >C9 for dme L3908 given on 07-16-24. Patient went from [place] to [facility] for this. Assuming SI needs c9?, Pau Tucker 08/13/2024 03:32:04 PM > faxed c9, Caitlin Pau 08/17/2024 12:45:49 PM > rcvd c9 auth for DME from 07/16. see attachment, Miranda Galloway 08/20/2024 06:58:55 AM >noted, filed Referral Priority Routine Reason ALLOWED add dx S52.6 12 08/22 AD -off work 08/21/24 when motion was completed Diagnosis 1 Closed displaced fra cture of styloid process of left ulna with routine healing, subsequent encounter (S52.912D) Referral Organization [facility] Referring Provider First Name Willi Referring Provider Last Name Torres Referring Provider Speciality Orthopedic Surgery Referred Organization [facility] Referred Address [address] [facility],[address],[place],[address],[place] General Notes Pau Tucker 02:24:34 PM > do we need to add the ulna fx to her clm?, Miranda Galloway 08/13/2024 03:17:43 PM >yes, I would add it. Caitlin miller Jessika 08/14/2024 08:52:36 AM > faxed note [...] PM > found a letter on the [facility] website. dx S52.612 was allowed on 08/22. see attachment Referral Priority Routine Reason AD 09/10 note Diagnosis 1 Closed displaced fra cture of styloid process of left ulna with routine healing, subsequent encounter (S52.932D) Referral Organization [facility] Referring Provider First Name Willi Referring Provider Last Name Torres Referring Provider Speciality Orthopedic Surgery Referred Organization [facility] Referred Address [address],[place], [place],[address], General Notes Pau Tucker 03:42:17 PM > faxed note and updated med[facility] Referral Priority Routine Reason APPROVED............ .....................NOT SCHEDULED....................................[facility] THORACIC AND LUMBAR TO BE DONE AT [place] Diagnosis 1 Compression fracture of T10 vertebra with routine healing, subsequent encounter (S22.070D) Diagnosis 2 Lumbar back pain (M5 4.50) Referral Organization [facility] Referring Provider First Name Ferozlisa Referring Provider Last Name [facility] Referring Provider Speciality Orthopedic Surgery Referred Organization [facility] Referred Address [place], [place], Procedure 1 MRI Thoracic Spine w /o Dye (95643) Procedure 2 MRI Lumbar Spine w/o Dye (73096) General Notes Marva Townsend 2024 12:43:02 PM >Kyle Kayla 11/02/2024 12:45:30 PM > WAITING ON TODAY'S OFFICE NOTEKyle Kayla 11/06/2024 09:24:12 AM > SONNY ACTIVE AND EFFECTIVE 05/23/24 PER AIM. AUTHORIZATION REQUEST SUBMITTED VIA [facility], PENDING AUTHORIZATION # [id number] WITH ANTICIPATED DETERMINATION DATE OF 11/16/24 PER AIM. CLINICALS FAXED TO [facility] @ [phone], Salma Wright 11/07/2024 07:57:33 AM > CASE PENDING PER AIM.Kyle Kayla 11/09/2024 08:57:51 AM > STILL PENDING PER AIM.Kyle Kayla 11/12/2024 08:19:14 AM > STILL PENDING WITH AIM.Kyle Kayla 11/13/2024 07:13:43 AM > PENDINGKyle Kayla 11/14/2024 09:42:34 AM > PENDING WITH AIM STILL.Kyle Kayla 11/16/2024 07:49:35 AM > AUTHORIZATION # [id number] APPROVED AND VALID 11/06/24-02/03/25 PER AIM. SCANNED INTO CHART AND FAXED TO [facility].Kristian Dawn 11/16/2024 08:15:51 AM >faxed Referral Priority Routine Medications Medication SIG (Take, [...] Problem Status W/U Status Risk Notes Problem [id number] Wedge compressio n fracture of T11-T12 vertebra, initial encounter for closed fracture (S22.080A) Active confirmed Problem Closed fracture of distal end of left radius (488750852007 47536) Other intraarticular fracture of lower end of left radius, subsequent encounter for closed fracture with routine healing (S52.572D) Active confirmed Problem 07259146 Closed displaced fracture of styloid process of left ulna with routine healing, subsequent encounter (S52.612D) Active confirmed Problem 77396966 Degeneration of intervertebral disc of lumbosacral region with discogenic back pain (M51.370) Active confirmed Problem 77314950 Other intraarticular fracture of lower end of left radius, initial encounter for closed fracture (S52.572A) Inactive confirmed Vital Signs Height 5 ft 2 in in 11/02/2024 Weight 200 lbs 11/02/2024 BMI 36.58 11/02/2024 Encounters Encounter Location Date Provider Diagnosis [facility] Inpatient [address] [place] [address] 06/07/2024 [facility] Other intraarticular fracture of lower end of left radius, initial encounter for closed fracture S52.572A and Fall, initial encounter W19.XXXA [facility] Outpatient [address] [place] [address] 06/11/2024 Willi Torres Other intraarticular fracture of lower end of left radius, initial encounter for closed fracture S52.572A [facility] [address] [place] [address] 06/25/2024 [facility] Other intraarticular fracture of lower end of left radius, subsequent encounter for closed fracture with routine healing S52.572D and Closed displaced fracture of styloid process of left ulna with routine healing, subsequent encounter S52.612D [facility] [address] [place] [address] 07/16/2024 Shyanne Berg Other intraarticular fracture of lower end of left radius, subsequent encounter for closed fracture with routine healing S52.572D and Closed displaced fracture of styloid process of left ulna with routine healing, subsequent encounter S52.612D [facility] [address] [place] [address] 08/13/2024 Willi Torres Closed displaced fracture of styloid process of left ulna with routine healing, subsequent encounter S52.612D and Other intraarticular fracture of lower end of left radius, subsequent encounter for closed fracture with routine healing S52.572D [facility] [address] [place] [address] 09/10/2024 Willi Torres Closed displaced fracture of styloid process of left ulna with routine healing, subsequent encounter S52.612D and Other intraarticular fracture of lower end of left radius, subsequent encounter for closed fracture with routine healing S52.572D [facility] [address] [place] [address] 11/02/2024 Richard Diganjana Wedge compression fracture of T11-T12 vertebra, initial encounter for closed fracture S22.080A and Degeneration of intervertebral disc of lumbosacral region with discogenic back pain M51.370 [facility] [address] [place] [address] 07/16/2024 Willi Torres Assessments Encounter Date Diagnosis (ICD Code) Assessment Notes Treatment Notes Treatment Clinical Notes Section Notes 07/16/2024 Other intraarticular fracture of lower end [...] routine healing, subsequent encounter (ICD-10 - S52.612D) 11/02/2024 Wedge compression fracture of T11-T12 vertebra, initial encounter for closed fracture (ICD-10 - S22.080A) 1. T10 vertebral compression fracture, questionable T11-T12 vertebral compression fracture 2. L5-S1 degenerative disc disease 3. Low back pain 11/02/2024 Degeneration of intervertebral disc of lumbosacral region with discogenic back pain (ICD-10 - M51.370) 1. T10 vertebral compression fracture, questionable T11-T12 vertebral compression fracture 2. L5-S1 degenerative disc disease 3. Low back pain 06/07/2024 Other intraarticular fracture of lower end [...] fracture with routine healing (ICD-10 - S52.572D) 06/25/2024 Closed displaced fracture of styloid process of left ulna with routine healing, subsequent encounter (ICD-10 - S52.612D) 06/25/2024 Other Patient is doing well 2 weeks s/p left distal radius ORIF. Given she does have a ulnar styloid fracture I placed her in a short arm cast. She does work at [employer] and has to do a lot of [...] work with some restrictions. She works at [employer] and reports she does not have to lift typically more than a copper bag of food. Import medication 09/10/2024 Other Patient is doing well after her ORIF of her left distal radius fracture and ulna fractures. We will return her to work without restrictions. She will follow-up on an as-needed basis. Import medication 11/02/2024 Other Plan established by Dr. Norton. At this time, we will set the patient up with a MRI of the thoracic and lumbar spine to determine the acuity of the fractures and help with treatment planning. We will keep her off work until her MRI follow-up. We will see her back after the testing is completed to discuss the treatment options. The patient is very much in agreement with the treatment and/or diagnostic plan set forth and all questions were answered to the patient's satisfaction. Thanks once again. If we can be of further service to your patients with disorders of the spine, cervical, thoracic, or lumbar, please do not hesitate to contact Dr. Norton. Best regards, 1. T10 vertebral compression fracture, questionable T11-T12 vertebral compression fracture 2. L5-S1 degenerative disc disease 3. Low back pain Plan Of Treatment Pending Test Test Name Order Date Thoracic-Lumbar spine 2v ap and lat - 72 080 11/02/2024 SCC- WRIST 3 VIEW LEFT 90671 08/13/2024 SCC- PT/OT EVAL AND TREAT 3X/WEEK FOR 6 WEEKS 07/16/2024 SCC- WRIST 3 VIEW LEFT 06620 09/10/2024 MRI : Lumbosacral Spine W/O Contrast - 7 8 11/02/2024 MRI : Thoracic Spine W/O Contrast - 7214 6 11/02/2024 Insurance Providers Payer Name Payer Address Payer Phone Subscriber Number Group Number Insured Name Patient Relationship to Insured Coverage Start Date Coverage End Date Medicare [employer] [address] [place] [address] [id number] [facility] MELANIE TOMPKINS Self - patient is the insured 5 [employer] [address] [place] [address] TO [facility] [place] [address] [id number] doi 24 lt wrist & ribs MELANIE TOMPKINS Self - patient is the insured 5 Medical (General) History Medical History History ICD Code Respiratory problems: Lung Disease Hypothyroidism High Blood Pressure Depression Mental Illness: Anxiety Surgical History Surgery Date(Month/Year) ORIF of a left distal radius fracture
--- NOTE | 2024-11-26 08:05 | MR_ITS ---
The [address] [address] Patient Name: MELANIE TOMPKINS MRN: [id number] date: 1955 Sex: F Assigned Patient Location: MRI Current Patient Location: MRI Accession/Order Number: [id number] Exam Date: 11/26/2024 10:32 Report Date: 11/26/2024 10:42 At the request of: MC HAWTHORNE Procedure: MR thoracic spine wo con MR thoracic spine wo con 11/26/2024 9:39 AM SIGNS AND SYMPTOMS: ^Thoracic Back Pain PROTOCOL: Multiplanar multisequence MR images of the thoracic spine without IV contrast COMPARISON: 10/25/2024 FINDINGS: The bones of the thoracic spine are in anatomic alignment. There is a compression deformity involving the T10 vertebral body with accompanying marrow edema and approximately 80% loss of vertebral body height. Edema extends into the pedicles and facets with facet edema on both sides of the joint space at T10-T11. The posterior wall is retropulsion of the spinal canal by 4 mm contributing to moderate stenosis of the spinal canal. The vertebral body heights and intervertebral discs are otherwise preserved. No epidural or paraspinous fluid collection is appreciated. The visualized paraspinous soft tissues are within normal limits. There is a hiatal hernia with gastric fundus in the lower mediastinum similar to the prior exam. At T1-T2: There is a normal disc, central canal, and neural foramen. At T2-T3: There is a normal disc, central canal, and neural foramen. At T3-T4: There is a normal disc, central canal, and neural foramen. At T4-T5: There is a normal disc, central canal, and neural foramen. At T5-T6: There is a normal disc, central canal, and neural foramen. At T6-T7: There is a normal disc, central canal, and neural foramen. At T7-T8: There is a normal disc, central canal, and neural foramen. At T8-T9: There is a normal disc, central canal, and neural foramen. At T9-T10: Facet degenerative changes contribute into mild narrowing of the neural foramina bilaterally. At T10-T11: There is retropulsion of the posterior wall at T10 with facet hypertrophy bilaterally. There is moderate spinal canal narrowing with mild bilateral neural foraminal stenosis. At T11-T12: There is a normal disc, central canal, and neural foramen. At T12-L1: There is a normal disc, central canal, and neural foramen. MR/MR thoracic spine wo con IMPRESSION: There is a compression deformity involving the T10 vertebral body with accompanying marrow edema and approximately 80% loss of vertebral body height. Edema extends into the pedicles and facets with facet edema on both sides of the joint space at T10-T11. The posterior wall is retropulsion of the spinal canal by 4 mm contributing to moderate stenosis of the spinal canal. No epidural or paraspinous hematoma. At T9-T10: Facet degenerative changes contribute into mild narrowing of the neural foramina bilaterally. At T10-T11: There is retropulsion of the posterior wall at T10 with facet hypertrophy bilaterally. There is moderate spinal canal narrowing with mild bilateral neural foraminal stenosis. Impression dictated by: Matteo Gandara M.D. 11/26/2024 10:42 AM Dictation Location[facility] Electronically authenticated by: [id number] Y Date: 11/26/2024 10:42
--- NOTE | 2024-11-26 08:05 | MR_ITS ---
The [address] [address] Patient Name: MELANIE TOMPKINS MRN: [id number] date: 1955 Sex: F Assigned Patient Location: MRI Current Patient Location: MRI Accession/Order Number: [id number] Exam Date: 11/26/2024 10:42 Report Date: 11/26/2024 10:50 At the request of: CM HAWTHORNE Procedure: MR lumbar spine wo con MR lumbar spine wo con 11/26/2024 9:38 AM SIGNS AND SYMPTOMS: ^Lumbar Pain PROTOCOL: Multiplanar multisequence MR images of the lumbar spine without contrast COMPARISON: 04/19/2023 FINDINGS: The bones of the lumbar spine are in anatomic alignment. There is a compression deformity involving the T10 vertebral body with 50% loss of vertebral body height. This is better demonstrated on the lesion thoracic spine MRI from the same date. The vertebral body heights are otherwise maintained. There is desiccation and mild disc height loss at T12-L1 and L1-L2. There is moderate disc height loss at L5-S1. The conus terminates at the L1-L2 intervertebral disc level. No epidural or paraspinous fluid collection is appreciated. At T12-L1: There is a normal disc, central canal, and neural foramen. At L1-L2: There is a broad-based disc bulge with facet hypertrophy. There is mild spinal canal narrowing and mild bilateral neural foraminal narrowing. At L2-L3: There is a broad-based disc bulge with facet hypertrophy. There is mild spinal canal stenosis with mild bilateral neural foraminal stenosis. At L3-L4: There is a broad-based disc bulge with facet hypertrophy. There is mild spinal canal narrowing with mild bilateral neural foraminal narrowing. At L4-L5: There is facet hypertrophy with ligamentum flavum thickening. There is mild to moderate spinal canal stenosis. No significant neural foraminal narrowing. At L5-S1: There is a circumferential disc bulge. There is facet hypertrophy with ligamentum flavum thickening. There is mild spinal canal narrowing with endplate osteophyte formation contributing to severe right and moderate left neural foraminal narrowing. There is mass effect on the exiting right L5 nerve roots. This is similar to the prior study. MR/MR lumbar spine wo con IMPRESSION: At L5-S1: There is a circumferential disc bulge. There is facet hypertrophy with ligamentum flavum thickening. There is mild spinal canal narrowing with endplate osteophyte formation contributing to severe right and moderate left neural foraminal narrowing. There is mass effect on the exiting right L5 nerve roots. This is similar to the prior study. Lesser degrees of spinal canal and neural foraminal stenosis are redemonstrated as above. No significant interval change otherwise. There is a compression deformity of the T10 vertebral body which is better demonstrated on the thoracic spine MRI from the same date. Impression dictated by: Matteo Gandara M.D. 11/26/2024 10:50 AM Dictation Location: [place] [address] Electronically authenticated by: [id number] Y Date: 11/26/2024 10:50
== END 2024-11-26 08:02 | disposition home or self-care (01) ==
LOC: MRI 08:01
PROVIDERS: PCP Nurse Practitioner Family; Visit Provider Orthopaedic Surgery Orthopaedic Surgery of the Spine
DX: S22.080A Wedge compression fracture of T11-T12 vertebra, initial encounter for closed fracture (principal); M51.370 Other intervertebral disc degeneration, lumbosacral region with discogenic back pain only
CPT/HCPCS: 72146; 72148

== ENCOUNTER 2024-12-05 08:04 | Outpatient (OUT) | payer MEDICARE, SELFPAY ==
--- OUTSIDE RECORDS SUMMARY | 2024-11-26 10:45 | XMS_ITS ---
Author Organization [facility] [place] Address [address] [place] [address] Care Team Providers Care Manager Apple Name Role Phone Natividad Milton Primary Care Provider REASON FOR VISIT rf prozac Medications Medication SIG (Take, Route, Frequency, Duration) Notes Start Date End Date Status PROzac 20 MG 4 capsule Orally once daily for 90 days Active Encounters Encounter Location Date Provider Diagnosis [address] [address] 11/26/2024 Natividad Milton Plan Of Treatment Medication Medication Name Sig Start Date Stop Date Notes PROzac 20 MG 4 capsule Orally once daily for 90 days Progress Notes * Mary TOMPKINS MDOB:1955 (69 yo F)Acc No.[id number]:11/26/2024 Patient: Mary DURANT :1955 A ge:69 Y S ex:Female Address:[facility] [place] [address] * Refills Refill PROzac Capsule, 20 MG, Orally, 360, 4 capsule, once daily, 90 days, Refills=3 * true * Date: Generated for Nelda valdez/Michelle/eTransmitting on: 0 12/05/2024 08:07 AM EDT
--- OUTSIDE RECORDS SUMMARY | 2024-11-30 07:00 | XMS_ITS ---
Author Organization [facility] [place] Address [address] [place] [address] Care Team Providers Care Youth Worker Name Role Phone Natividad Milton Primary Care Provider Allergies Allergen (clinical drug ingredient) Drug/Non Drug Allergy documented on EMR Reaction Allergy Type Onset Date Status sumatriptan Imitrex Unknown Drug Allergy Activ e Reason For Referral Reason COPD Diagnosis 1 COPD exacerbation (J 44.1) Referral Organization [facility] Referring Provider First Name Natividad Referring Provider Last Name Karine Referring Provider Speciality Family Med araceli Referred Provider Ronni Ac Referred Provider Specialty Pulmonary Di seases Referral Priority Routine REASON FOR VISIT Patient would like to discuss SOB, COPD Medications Medication SIG (Take, Route, Frequency, Duration) Notes Start Date End Date Status oxyCODONE-Acetaminoph en 5-325 MG Oral for 30 Days Active PROzac 20 MG 4 capsule Orally once daily for 90 days Active rOPINIRole HCl 1 MG 1 tablet 1 to 3 hours before bedtime Orally Once a day for 30 days Active Trelegy Ellipta 100-62.5-25 MCG/ACT 1 puff Inhalation Once a day for 30 days 04/09/2024 Active Zepbound 2.5 MG/0.5ML 0.5 mL Subcutaneou s for 30 days call for next dose 05/01/2024 Active Levothyroxine Sodium 50 MCG 1 tablet [...] day prn for 14 days 02/29/2024 Active Baclofen 5 MG 1 -2 tablet as needed Orally Once a day for 14 days 02/29/2024 Active Diclofenac Sodium 50 MG 1 tablet Orally Twice a day Active Ferrous Sulfate 325 (65 Fe) MG 1 tablet Orally Three times a Week for 30 days 01/31/2024 Active Ketorolac Tromethamine 10 MG 1 tablet with food or milk as needed Orally every 8 hrs prn for 3 days hold diclofenac, ibuprofen while taking start 10/27/24 10/26/2024 Active predniSONE 20 MG 2 tablet Orally Once a day for 5 days 11/30/2024 Active Amitriptyline HCl 50 mg TAKE 1 TABLET BY MOUTH AT BEDTIME for 30 Active Abilify 30 MG 1 tablet Orally Once a day for 90 days Active Social History Tobacco Use: Social History [...] up- quit in 2020 Vital Signs Weight 193.4 lbs 11/30/2024 Height 62 in 11/30/2024 Blood pressure systolic 130 mm Hg 12/01/19 25 Blood pressure diastolic 80 mm Hg 025 Heart Rate 74 /min 11/30/2024 BMI 35.37 kg/m2 11/30/2024 Oximetry 96 % 11/30/2024 Procedures Procedure Date Ordered Date Performed Result Body Sit e PFT Complete 11/30/2024 N/A Encounters Encounter Location Date Provider Diagnosis [facility] [address] [place] [address] 11/30/2024 Natividad Milton COPD exacerbation J44.1 Assessments Encounter Date Diagnosis (ICD Code) Assessment Notes Treatment Notes Treatment Clinical Notes Section Notes 11/30/2024 COPD exacerbation (ICD-10 - J44.1) continue trelegy, albuterol walk test monitor pulse ox, to ER if needed Plan Of Treatment Medication Medication Name Sig Start Date Stop Date Notes predniSONE 20 MG 2 tablet Orally Once a day for 5 days 03/2025 Treatment Notes Assessment Notes COPD exacerbation continue trelegy, albuterol walk test monitor pulse ox, to ER if needed Pending Test Test Name Order Date PFT Complete 11/30/2024 XR chest 2V 11/30/2024 Referrals Referral Date Details 11/30/2024 11/30/2024, COPD, Samantha Ac Next Appt Details Follow Up: prn, Reason: Progress Notes * Mary TOMPKINS MDOB:1955 (69 yo F)Acc No.[id number]:11/30/2024 Progress Note Patient: Massimo PRAKASH Mary Kyree Provider: Giovana Milton ([facility]), HOTEL OPERATION MANAGER :1955 A ge:69 Y S ex:Female Date:11/30/2024 Address:[address] [place] [address] , [place] , [place] Check In:10:34 AM ESTCheck O ut:10:52 AM EST Subjective: * Chief Complaints: * 1 . Patient would like to discuss SOB, COPD. * HPI: G eneral: COVID three times, ground glass breathing worse with exertion oxygen dropping to 89% with any activity trelegy and using albuterol several times a day back issues and has been more sendentary lately and breathing is worse last month. * ROS: G eneral/Constitutional: Fever d enies. [...] ough d enies. S hortness of breath a dmits, with activity, getting worse, chronic. W heezing d enies. G astrointestinal: Abdominal pain d enies. C [...] unspecified site. S on(s): alive. D augnitiner(s): alive.�1 brother(s) , 2 sister(s) . 1 [...] it been since you last smoked?�1-5 years D rug/Alcohol: A CARLOS-C (Standard) D [...] Orally Three times a Week , Taking Ketorolac Tromethamine 10 MG Tablet 1 tablet with food or milk as needed Orally every 8 hrs prn , Notes to Pharmacist: hold diclofenac, ibuprofen while takingstart 10/27/24, Taking Levothyroxine Sodium 50 MCG Tablet 1 [...] Orally Once a day , Taking Trelegy Ellipta(Qyjjkcokrgq-Snpbogrdc-Fihqth) 100-62.5-25 MCG/ACT Aerosol Powder Breath Activated 1 puff Inhalation Once a day , Taking Zepbound(Tirzepatide- Weight Management) 2.5 MG/0.5ML Solution Auto-injector 0.5 mL Subcutaneous , Notes to Pharmacist: call for next dose, Medication List reviewed and reconciled with the patient * Allergies: I mitrex. Objective: * Vitals: W t:193.4lbs, Ht: 62 in, BP:130/80mm Hg, HR:74/min, BMI:35.37Index, Oxygen sat %:96%, Ht-cm: 157.48 cm, Wt-k.73 kg. * Examination: G eneral Examinations: GENERAL APPEARANCE: a lert and oriented, i n no acute distress. EYES: c onjunctiva normal, sclera non-icteric. NOSE: n ormal external appearance. LUNGS: d iminished breath sounds throughout. CARDIO: r egular rate and rhythm, S1, S2 normal. ABDOMEN: s oft, nontender. MUSCULOSKELETAL: d ecreased ROM due to back pain. SKIN: w arm and dry. Assessment: * Assessment: 1. C OPD exacerbation - J44.1 (Primary) Plan: * Treatment: * Preventive Medicine: Screenings/Counseling: B NH ACTION PLAN Above Normal BMI Follow-up D ietary management education, guidance, and counseling F ALL RISK SCREENING Fall Risk Assessment: N o falls in the past year * Follow Up: p rn * * Electronically signed by Su Milton , HEALTH OUTREACH WORKER, HAIR CLIPPER POWER.HOTEL OPERATION MANAGER.[id number] on 12/03/2024 at 03:36 PM EDT Sign off status: Completed Visit Status: C HK (Check Out) true * Provider: Giovana Milton ([facility]), HOTEL OPERATION MANAGER Date: 11/30/2024 Generated for Nelda valdez/Michelle/eTransmitting on: 12/05/2024 08:07 AM EDT History and Physical Notes * HPI (History of Present Illness) Category Sub-Category Detail Notes Category Not es General COVID three times, ground glass breathing worse with exertion oxygen dropping to 89% with any activity trelegy and using albuterol several times a day back issues and has been more sendentary lately and breathing is worse last month Examination Category Sub-Category Detail Notes Category Not es General Examinations GENERAL APPEARANCE: alert a nd oriented, in no acute distress EYES: conjunctiva normal, sclera non-icteric EARS: NOSE: normal external appe arance THROAT: CARDIO: regular rate and rhy thm, S1, S2 normal LUNGS: diminished breath so unds throughout ABDOMEN: soft, nontender SKIN: warm and dry BACK: MUSCULOSKELETAL: decreased ROM due to back pain LYMPH NODES: Consultation Request Notes Referral Date Referring Provider Referred Provider Not es 11/30/2024 Natividad Milton, Ronni COPD
--- OUTSIDE RECORDS SUMMARY | 2024-11-30 07:16 | XMS_ITS ---
Author Organization [facility] [place] Address [address] [place] [address] Care Team Providers Care Metal Mold Dresser Name Role Phone Natividad Milton Primary Care Provider REASON FOR VISIT walking test Procedures Procedure Date Ordered Date Performed Result Body Sit e Six minute walk 11/30/2024 N/A Encounters Encounter Location Date Provider Diagnosis [facility] [address] [place] [address] 11/30/2024 Natividad Karine SOB (shortness of breath) R06.02 Assessments Encounter Date Diagnosis (ICD Code) Assessment Notes Treatment Notes Treatment Clinical Notes Section Notes 11/30/2024 SOB (shortness of breath) (ICD-10 - R06.02) Plan Of Treatment Pending Test Test Name Order Date Six minute walk 11/30/2024 Progress Notes * Mary TOMPKINS MDOB:1955 (69 yo F)Acc No.[id number]:11/30/2024 Patient: Massimo PRAKASHMary :1955 A ge:69 Y S ex:Female Address:[address] [place] [address] [place] [address] Subjective: * Chief Complaints: * W alking test * Medical History: * Surgical History: * Hospitalization/Major Diagno stic Procedure: * Medications: Objective: * Vitals: * Physical Examination: Assessment: * Assessment: 1. S OB (shortness of breath) - R06.02 (Primary) Plan: * Treatment: * Procedure Codes: * true * Date: Generated for Nelda valdez/Michelle/Lorna on: 0 12/05/2024 08:06 AM EDT
--- OUTSIDE RECORDS SUMMARY | 2024-12-05 08:07 | XMS_ITS | Patient Health Record ---
Author Organization [facility] Address [address] [place] [address] Care Team Providers Care Tanning Drum Operator Name Role Phone Natividad Milton Primary Care Provider [facility] Feroz Raymundolisa Unavailable [phone] Richard Askew Unavailable [phone] Willi Torres Unavailable [phone] Shyanne Berg Unavailable [phone] Allergies Allergen (clinical drug ingredient) Drug/Non Drug Allergy documented on EMR Reaction Allergy Type Onset Date Status sumatriptan Imitrex Unknown Drug Allergy Activ e Results Component Value Reference Range Notes SCC- WRIST 3 VIEW LEFT 77701 Reviewed date:08/09/2024 01:53:02 PM Interpretation: Performing Lab: Notes/Report: [facility]- WRIST 3 VIEW LEFT [id number] Reviewed date:06/27/2024 09:42:44 AM Interpretation: Performing Lab: Notes/Report: Reason For Referral Reason APPROVED for Hosp. C onsult 06/07 APPROVED for ORIF done 06/11 Diagnosis 1 Other intraarticular fracture of lower end of left radius, initial encounter for closed fracture (S52.572A) Referral Organization [facility] [facility] Referring Provider First Name Willi Referring Provider Last Name Brian Referring Provider Speciality Orthopedic Surgery Referred Organization [facility] Referred Address [address] [place],[address], General Notes Pau Tucker 11:56:12 AM > Lauren asked that I submit c9's for her Hospital Consult on 06/07 and SX on 06/11. Faxed c9's with reports., Pau Tucker 06/22/2024 03:30:13 PM > rcvd c9 auth for SX done 06/11, see Caitlin orozco Jessika 06/22/2024 03:32:00 PM > rcvd c9 auth for Hospital consult on 06/07, see attachment Referral Priority Routine Reason AD// WORK SLIP PLEAS E Diagnosis 1 Other intraarticular fracture of lower end of left radius, initial encounter for closed fracture (S52.572A) Referral Organization [facility] Referring Provider First Name Willi Referring Provider Last Name [place] Referring Provider Speciality Orthopedic Surgery Referred Organization [facility] Referred Address [facility] [address], [place],[address], General Notes Kierra Brice 06/20 09:09:27 AM >Need work slip for 06/11/2024 sx please. [facility] called asking for. Thanks so much, Pam Licona 06/20/2024 09:30:15 AM > IN UNDER CHART DOCS, Kierra Brice 06/20/2024 10:16:35 AM >noted. faxed [employer] Referral Priority Urgent Reason addressed,APPROVED f or casting done 06/25 Diagnosis 1 Other intraarticular fracture of lower end of left radius, initial encounter for closed fracture (S52.398B) Referral Organization [facility] Referring Provider First Name Willi Referring Provider Last Name [place] Referring Provider Speciality Orthopedic Surgery [facility] Referred Address [address],[place], [place],[address],[place] General Notes Pau Tucker 09:05:49 AM > [...] Priority Routine Reason APPROVED FOR P.T. AT [place], OFF WORK, [facility] [place] (PATIENT WILL GET IN [place] [facility]) AD [employer] APPROVED for dme from 07/16 Diagnosis 1 Other intraarticular fracture of lower end of left radius, subsequent encounter for closed fracture with routine healing (S52.572D) Referral Organization [facility] Referring Provider First Name Willi Referring Provider Last Name Brian Referring Provider Speciality Orthopedic Surgery Referred Organization [facility] Referred Address [address] [place] [address],[address],[place], [place],[address], General Notes Pau Tucker 08:01:11 AM > Can you please add dx for displaced ulnar styloid fx, dictated from [facility], Jenny 07/17/2024 10:34:00 AM >done, Pau Tucker 07/17/2024 11:19:39 AM > faxed note and c9 for PT, Pau Tucker 07/19/2024 10:44:12 AM > rcvd C9 Auth PT LT arm 12 visits 07/17 to 09/07, see attachment. Where at in [place] would she go for PT?, Pam Licona 07/19/2024 11:15:20 AM >[facility] 08/06/2024 02:30:15 PM >, Miranda Galloway 08/13/2024 03:17:21 PM >C9 for dme L3908 given on 07-16-24. Patient went from [place] to [place] office for this. Assuming SI needs c9?, Pau Tucker 08/13/2024 03:32:04 PM > faxed c9, Pau Tucker 08/17/2024 12:45:49 PM > rcvd c9 auth for DME from 07/16. see Laverne orozco Lisa 08/20/2024 06:58:55 AM >noted, filed Referral Priority Routine Reason ALLOWED add dx S52.6 12 08/22 AD -off work 08/21/24 when motion was completed Diagnosis 1 Closed displaced fra cture of styloid process of left ulna with routine healing, subsequent encounter (S52.612D) Referral Organization [facility] Referring Provider First Name Willi Referring Provider Last Name Torres Referring Provider Speciality Orthopedic Surgery [facility] Referred Address [address],[place], [place],[address],[place] General Notes Pau Tucker 02:24:34 PM > [...] PM > found a letter on the [facility] website. dx S52.612 was allowed on 08/22. see attachment Referral Priority Routine Reason AD 09/10 note Diagnosis 1 Closed displaced fra cture of styloid process of left ulna with routine healing, subsequent encounter (S52.612D) Referral Organization [facility] Referring Provider First Name Willi Referring Provider Last Name Torres Referring Provider Speciality Orthopedic Surgery [facility] Referred Address [address],[place], [place],[address], General Notes Pau Tucker 03:42:17 PM > faxed note and updated med[employer] Referral Priority Routine Reason APPROVED............ .....................NOT SCHEDULED....................................[facility]CR MRI THORACIC AND LUMBAR TO BE DONE AT [place] Diagnosis 1 Compression fracture of T10 vertebra with routine healing, subsequent encounter (S22.070D) Diagnosis 2 Lumbar back pain (M5 4.50) Referral Organization [facility] Referring Provider First Name Ferozlisa Referring Provider Last Name [facility] Referring Provider Speciality Orthopedic Surgery Referred Organization [facility] Referred Address [place], [place], Procedure 1 MRI Thoracic Spine w /o Dye (05123) Procedure 2 MRI Lumbar Spine w/o Dye (18846) General Notes Marva Townsend 2024 12:43:02 PM >, Salma Wright 11/02/2024 12:45:30 PM > WAITING ON TODAY'S OFFICE NOTE, Salma Wright 11/06/2024 09:24:12 AM > MIRELAEM ACTIVE AND EFFECTIVE 05/23/24 PER AIM. AUTHORIZATION REQUEST SUBMITTED VIA [facility], PENDING AUTHORIZATION # [id number] WITH ANTICIPATED DETERMINATION DATE OF 11/16/24 PER AIM. CLINICALS FAXED TO [facility] @ [phone], Salma Wright 11/07/2024 07:57:33 AM > CASE PENDING PER AIM.Kyle Kayla 11/09/2024 08:57:51 AM > STILL PENDING PER AIM.Kyle Kayla 11/12/2024 08:19:14 AM > STILL PENDING WITH AIM.Kyle Kayla 11/13/2024 07:13:43 AM > PENDING, Salma Wright 11/14/2024 09:42:34 AM > PENDING WITH AIM STILL.Kyle Kayla 11/16/2024 07:49:35 AM > AUTHORIZATION # [id number] APPROVED AND VALID 11/06/24-02/03/25 PER AIM. SCANNED INTO CHART AND FAXED TO Kristian Dawn 11/16/2024 08:15:51 AM >faxed Referral Priority Routine Diagnosis 1 Closed displaced fra cture of styloid process of left ulna with routine healing, subsequent encounter (S52.612D) Referral Organization [facility] Referring Provider First Name Rhett Referring Provider Last Name [facility] Referring Provider Speciality Orthopedic Surgery Referred Organization [facility] Referred Address [address] [place] [place], [place],[address], Referral Priority Routine Medications Medication SIG (Take, Route, Frequency, Duration) Notes Start Date End Date Status Abilify Active PROzac Active Social History Tobacco Use: Social History [...] Problem Status W/U Status Risk Notes Problem [id number] Wedge compressio n fracture of T11-T12 vertebra, initial encounter for closed fracture (S22.080A) Active confirmed Problem Closed fracture of distal end of left radius ([id number] 58447) Other intraarticular fracture of lower end of left radius, subsequent encounter for closed fracture with routine healing (S52.572D) Active confirmed Problem 21506742 Closed displaced fracture of styloid process of left ulna with routine healing, subsequent encounter (S52.612D) Active confirmed Problem 25856521 Degeneration of intervertebral disc of lumbosacral region with discogenic back pain (M51.370) Active confirmed Problem 06305053 Other intraarticular fracture of lower end of left radius, initial encounter for closed fracture (S52.572A) Inactive confirmed Vital Signs Height 5 ft 2 in in 12/03/2024 Weight 200 lbs 12/03/2024 BMI 36.58 12/03/2024 Encounters Encounter Location Date Provider Diagnosis [facility] [address] [place] [address] 12/03/[address] Pepper Compression fracture of T10 vertebra with routine healing, subsequent encounter S22.070D [facility] [address] [place] [address] 06/07/2024 [place] Other intraarticular fracture of lower end of left radius, initial encounter for closed fracture S52.572A and Fall, initial encounter W19.XXXA [facility] [address] [facility] [place] [address] 06/11/2024 Willi Torres Other intraarticular fracture of lower end of left radius, initial encounter for closed fracture S52.572A [facility] [address] [facility] [place] [address] 06/25/2024 [place] Other intraarticular fracture of lower end of left radius, subsequent encounter for closed fracture with routine healing S52.572D and Closed displaced fracture of styloid process of left ulna with routine healing, subsequent [facility] S52.612D [facility] [address] [facility] [place] [address] 07/16/2024 [place] Other intraarticular fracture of lower end of left radius, subsequent encounter for closed fracture with routine healing S52.572D and Closed displaced fracture of styloid process of left ulna with routine healing, subsequent encounter S52.612D [facility] [facility] [address] [place] [address] 08/13/2024 Willi Torres Closed displaced fracture of styloid process of left ulna with routine healing, subsequent encounter S52.612D and Other intraarticular fracture of lower end of left radius, subsequent encounter for closed fracture with routine healing S52.572D [facility] [address] [place] [address] 09/10/2024 Willi Torres Closed displaced fracture of styloid process of left ulna with routine healing, subsequent encounter S52.612D and Other intraarticular fracture of lower end of left radius, subsequent encounter for closed fracture with routine healing S52.572D [facility] [address] [place] [address] 11/02/2024 Richard Askew Wedge compression fracture of T11-T12 vertebra, initial encounter for closed fracture S22.080A and Degeneration of intervertebral disc of lumbosacral region with discogenic back pain M51.370 [facility] [address] [place] [address] 07/16/2024 Willi Torres Assessments Encounter Date Diagnosis [...] degenerative disc disease 3. Low back pain 12/03/2024 Compression fracture of T10 vertebra with routine healing, subsequent encounter (ICD-10 - S22.070D) 06/07/2024 Other intraarticular fracture of lower end [...] routine healing, subsequent encounter (ICD-10 - S52.612D) 12/03/2024 Other Geraldine Vick presents with worsening lower back pain and a history of T10 compression fracture. Thoracic compression fracture (T10) with lower back pain Assessment: Patient has a known T10 compression fracture visible on MRI. She reports increased lower back pain this week, initially suspecting another fracture. However, MRI shows no new fractures in the lower back. The T10 fracture appears stable with some fluid changes noted. Lower spine exhibits stenosis and degeneration, which may contribute to the patient's pain. Physical exam revealed tendinitis over the posterior thoracolumbar spine region and fibrocysts with bilateral lower extremity sensations intact throughout. Plan - Prescribe thoracolumbar brace with extension - Recommend wearing brace for 4-6 weeks - Return to work at [employer] with no restrictions starting next Tuesday - Follow-up as needed if symptoms worsen - No scheduled follow-up appointment necessary 06/25/2024 Other Patient is doin g well 2 weeks s/p left distal radius ORIF. Given she does have a ulnar styloid fracture I placed her in a short arm cast. She does work at [employer] and has to do a lot of [...] work with some restrictions. She works at [employer] and reports she does not have to [...] Treatment Pending Test Test Name Order Date DME - Lumbar Support, Surgical OTS 12/03 Thoracic-Lumbar spine 2v ap and lat - 72 080 11/02/2024 [facility]- WRIST 3 VIEW LEFT 10210 08/13/2024 SCC- PT/OT EVAL AND TREAT 3X/WEEK FOR 6 WEEKS 07/16/2024 SCC- WRIST 3 VIEW LEFT 23741 09/10/2024 MRI : Lumbosacral Spine W/O Contrast - 7 2148 11/02/2024 MRI : Thoracic Spine W/O Contrast - 7214 6 11/02/2024 Insurance Providers Payer Name Payer Address Payer Phone Subscriber Number Group Number Insured Name Patient Relationship to Insured Coverage Start Date Coverage End Date Medicare [employer] [address] [place] [address] [id number] 2 [facility] G[facility] Self - patient is the insured [address] [employer] [id number] MYA Mata TO [facility] [place] [address] [id number] doi 24 lt wrist & ribs MELANIE VICK Self - patient is the insured Medical (General) History Medical History History ICD Code Respiratory problems: Lung Disease Hypothyroidism High Blood Pressure Depression Mental Illness: Anxiety Surgical History Surgery Date(Month/Year) ORIF of a left distal radius fracture
--- OUTSIDE RECORDS SUMMARY | 2024-12-05 08:07 | XMS_ITS | Patient Health Record ---
Author Organization [facility] in [place] Address [address] [place] [address] Care Team Providers Care Medical Office Coordinator Name Role Phone Natividad Silva Primary Care Provider KristianJosé [phone] Allergies Allergen (clinical drug ingredient) Drug/Non Drug Allergy documented on EMR Reaction Allergy Type Onset Date Status sumatriptan Imitrex Unknown Drug Allergy Activ e Results Component Value Reference Range Notes IRON Reviewed date:01/27/2024 03:58:27 PM Interpretation: Performing Lab: Notes/Report: [facility] , Iron 24.0 50.0-170.0 ug/dL Performing Lab: see note ML - [facility] LB CT lung screening low-dose Reviewed date:10/25/2024 11:04:31 AM Interpretation: Performing Lab: Notes/Report: Source Facility: [place] [address] [place] [address] CT Scan Report Signed Patient: MARY VICK MR#: [id number] : 1955 Acct:[id number] Age/Sex: 69 / F ADM Date: 10/23/24 Loc: CT Attending Dr: NATIVIDAD SILVA Ordering Physician: NATIVIDAD SILVA Date of Service: 10/23/24 Procedure(s): CT lung screening low-dose Accession Number(s): [id number] cc: NATIVIDAD SILVA [place] [id number] Patient Name: MARY VICK MRN: [id number] date: 1955 Sex: F Assigned Patient Location: CT Current Patient Location: Accession/Order Number: [id number] Exam Date: 10/23/2024 15:17 Report Date: 10/24/2024 00:10 At the request of: NATIVIDAD SILVA Procedure: CT lung screening low-dose CT Chest low-dose screening without contrast TECHNIQUE: Axial imaging with 2-D reconstruction. The CT exam was performed using one or more the following dose reduction techniques: Automated exposure control, adjustment of the MA and/or Kv according to patient size, or use of the iterative reconstruction technique. History: Lung screening. Shortness of breath. COMPARISON: 06/06/2024 THYROID: Similar thyroid nodularity TRACHEA AND BRONCHI: Patent ESOPHAGUS: Large hiatal hernia. HEART: Within normal limits PERICARDIAL EFFUSION: None CORONARY ARTERY CALCIFICATION: Present MEDIASTINUM: No adenopathy. No pneumoperitoneum. No mediastinal hematoma. PULMONARY JOSÉ: No hilar mass or adenopathy is seen. THORACIC AORTA atherosclerosis. No aneurysm. LUNG NODULE left upper lobe lung nodule no longer seen. LUNGS: Developing Patchy basilar groundglass parenchymal lung densities. Continued likely chronic reticular interstitial changes of the lungs.. PLEURAL EFFUSION: None PNEUMOTHORAX: No pneumothorax seen. CHEST WALL: No abnormality AXILLA:Unremarkable BONY STRUCTURES . Chronic sternal fracture. Chronic fractures of the ribs. Fracture. Thoracic spondylosis. UPPER ABDOMEN: Splenic granulomata of spleen redemonstrated. CT/CT lung screening low-dose IMPRESSION: Similar chronic reticular interstitial changes of the lungs. Interval development of patchy basilar groundglass parenchymal densities. Consider infectious or inflammatory etiology. No new or enlarging nodule. FINAL ASSESSMENT: Developing patchy basilar groundglass interstitial lung changes. Consider acute inflammatory changes. Redemonstration of chronic coarsened interstitium. Resolution of left upper lobe lung nodule. No new or enlarging lung nodules. Lung-RADS Version 1.0 Assessment Category: 2 REMARKS: Continued annual screening with LDCT in 12 months is recommended. Impression dictated by: Ghanshyam Mendez M.D. 10/24/2024 12:10 AM Dictation Location: [employer] Electronically authenticated by: [id number] Y Date: 10/24/2024 00:10 Dictated By: Ghanshyam Mendez D.O. Signed By: 10/24/24 0013 DD/ 001 TD/TT: Tractor Engine Assembler: [address] [address] [address] Scan Report Signed Patient: CHRISTINA VICK MR#: [id number] : 1955 Acct:[id number] Age/Sex: 69 / F ADM Date: 10/23/24 Loc: CT Attending Dr: NATIVIDAD SILVA Ordering Physician: NATIVIDAD SILVA Date of Service: 10/23/24 Procedure(s): CT payton g screening low-dose Accession Number(s): [id number] cc: NATIVIDAD SILVA [address] [address] Patient Name: MARY VICK MRN: [id number] date: 1955 Sex: F Assigned Patient Location: CT Current Patient Location: Accession/Order Numb er: [id number] Exam Date: 10/23/2024 15:17 Report Date: 10/24/2024 00:10 At the request of: NATIVIDAD SILVA Procedure: CT lung screening low-dose CT Chest low-dose screening without contrast TECHNIQUE: Axial glo ging with 2-D reconstruction. The CT exam was performed using one or more th e following dose reduction techniques: Automated exposure control, adjustment of the MA and/or Kv according to patient size, or use of the iterative reconstruction technique. History: Lung screen ing. Shortness of breath. COMPARISON: 06/06/2024 THYROID: Similar thy roid nodularity TRACHEA AND BRONCHI: Patent ESOPHAGUS: Large hia jt hernia. HEART: Within normal limits PERICARDIAL EFFUSION : None CORONARY ARTERY CALCIFICATION: Present MEDIASTINUM: No adenopathy. No pneumoperitoneum. No mediastinal hematoma. PULMONARY JOSÉ: No h ilar mass or adenopathy is seen. THORACIC AORTA atherosclerosis. No aneurysm. LUNG NODULE left upp er lobe lung nodule no longer seen. LUNGS: Developing Pa tchy basilar groundglass parenchymal lung densities. Continued likely chr onic reticular interstitial changes of the lungs.. PLEURAL EFFUSION: None PNEUMOTHORAX: No pneumothorax seen. CHEST WALL: No abnormality AXILLA:Unremarkable BONY STRUCTURES . Ch ronic sternal fracture. Chronic fractures of the ribs. Fracture. Thoracic spondylosis. UPPER ABDOMEN: Splen ic granulomata of spleen redemonstrated. C T/CT lung screening low-dose IMPRESSION: Similar chronic reticular interstitial changes of the lungs. Interval development of patchy basilar groundglass parenchymal densities. Consider infectious or inflammatory etiology. No new or enlarging nodule. FINAL ASSESSMENT: Developing patchy basilar groundglass interstitial lung changes. Consider ac tu inflammatory changes. Redemonstration of chronic coarsened interstiti um. Resolution of left upper lobe lung nodule. No new or enlarging lung nodules. Lung-RADS Version 1. 0 Assessment Category: 2 REMARKS: Continued a nnual screening with LDCT in 12 months is recommended. Impression dictated by: Ghanshyam Mendez M.D. 10/24/2024 12:10 AM [facility]ictation [facility] Electron[facility] authenticated by: [id number] Y Date: 10/24/2024 00:10 Dictated By: Kenn Mendez D.O. Signed By: 10/24/24 0013 DD/ 0010 TD/TT: Tractor Engine Assembler: CT chest wo con Reviewed date:06/06/2024 06:59:30 PM Interpretation: Performing Lab: Notes/Report: Source Facility: [place] [address] CT Scan Report Signed Patient: MARY VICK MR#: [id number] : 1955 Acct:[id number] Age/Sex: 68 / F ADM Date: 06/06/24 Loc: ER Attending Dr: Ordering Physician: Lesia Holguin D.O. Date of Service: 06/06/24 Procedure(s): CT chest wo con Accession Number(s): [id number] cc: NATIVIDAD SILVA [place] [address] Patient Name: MARY VICK MRN: [id number] date: 1955 Sex: F Assigned Patient Location: ER Current Patient Location: ER Accession/Order Number: [id number] Exam Date: 06/06/2024 09:14 Report Date: 06/06/2024 [...] upper lobe pulmonary nodule measuring 0.6 cm (3/19). Moderate degeneration of the lower thoracic spine [...] Signed By: 06/06/24 1159 DD/ 1156 TD/TT: Tractor Engine Assembler: [address] [address] [address] Scan Report Signed Patient: CHRISTINA VICK MR#: [id number] : 1955 Acct:[id number] Age/Sex: 68 / F ADM Date: 06/06/24 Loc: ER Attending Dr: Ordering Physician: Lesia Holguin D.O. Date of Service: 06/06/24 Procedure(s): CT ilana st wo con Accession Number(s): [id number] cc: NATIVIDAD SILVA [address] [address] Patient Name: MARY VICK MRN: [id number] date: 1955 Sex: F Assigned Patient Location: ER Current Patient Loca tion: ER Accession/Order Numb er: [id number] Exam Date: 06/06/2024 09:14 Report Date: 06/06/2024 [...] ELIJAH ROGERS Date: 06/06/2024 11:56 Dictated By: Humphrey Rogers M.D. Signed By: 06/06/24 1159 DD/ 1156 TD/TT: Tractor Engine Assembler: CBC AUTO DIFF Reviewed date:06/12/2024 04:07:12 PM Interpretation: Performing Lab: Notes/Report: [facility] , White Blood Count 9.1 4.0-11.0 10 [...] Performing Lab: see note ML - [facility] LB XR wrist LT min 3V Reviewed date:07/04/2024 12:50:42 PM Interpretation: Performing Lab: Notes/Report: Source Facility: [place] [address] [place] [address] XRay Report Signed Patient: MARY VICK MR#: [id number] : 1955 Acct:[id number] Age/Sex: 68 / F ADM Date: 06/25/24 Loc: EC Attending Dr: Raudel Royal M.D. Ordering Physician: Raudel Royal M.D. Date of Service: 06/25/24 Procedure(s): XR wrist LT min 3V Accession Number(s): [id number] cc: NATIVIDAD SILVA ; Raudel Royal M.D. [place] [address] Patient Name: MARY VICK MRN: [id number] date: 1955 Sex: F Assigned Patient Location: Current Patient Location: Accession/Order Number: [id number] Exam Date: 06/25/2024 08:35 Report Date: 06/27/2024 [...] Wheat M.D. Signed By: 06/27/24 1546 DD/ 1544 TD/TT: Tractor Engine Assembler: [place] [address] XRay Report Signed Patient: CHRISTINA VICK MR#: [id number] : 1955 Acct:[id number] Age/Sex: 68 / F ADM Date: 06/25/24 Loc: EC Attending Dr: Raudel Royal M.D. Ordering Physician: Raudel Royal M.D. Date of Service: 06/25/24 Procedure(s): XR wri st LT min 3V Accession Number(s): [id number] cc: NATIVIDAD SILVA ; Raudel Royal M.D. [place] [address] Patient Name: MARY VICK MRN: [id number] date: 1955 Sex: F Assigned Patient Location: Current Patient Location: Accession/Order Numb er: [id number] Exam Date: 06/25/2024 08:35 Report Date: 06/27/2024 [...] Wheat M.D. Signed By: 06/27/24 1546 DD/ 1544 TD/TT: Tractor Engine Assembler: PROF RYAN Nuno ([facility]) Reviewed date:10/25/2024 11:04:31 AM Interpretation: Performing Lab: Notes/Report: [facility] , Sodium 138 136-145 mmol/L Potassium 4.5 3.5-5.1 mmol/L Chloride 105 98-107 mmol/L Carbon Dioxide 23.9 21.0-32.0 mmol/L Anion Gap 13.6 Glucose 131 74-106 mg/dL Blood Urea Nitrogen 55.0 7.0-18.0 mg/dL Creatinine 1.63 0.55-1.02 mg/dL Estimated GFR ( Cheyanne 38 >=60 mL/min/1.73m 2 Estimated GFR (Non- Baudilio 31 >=60 mL/min/1.73m 2 BUN Creatinine Ratio 33.7 Calcium 9.2 8.5-10.1 mg/dL Performing Lab: see note ML - [facility] LB Troponin I High Sensitivity Reviewed date:10/25/2024 11:04:31 AM Interpretation: Performing Lab: Notes/Report: [facility] , Troponin I High Sensitivity 7.0 4.0-51.3 pg/mL CUT-OFF POINTS HAVE BEEN ESTABLISHED BASED ON THE FOURTH UNIVERSAL DEFINITION OF MYOCARDIAL INFARCTION. THE UPPER REFERENCE LIMIT (URL) OF TROPONIN, DEFINED THE 99TH PERCENTILE OF cTnI DISTRIBUTION IN A REFERENCE POPULATION, HAS BEEN CONFIRMED THE DECISION THRESHOLD FOR IN DIAGNOSIS. 99TH PERCENTILE = 51.4 PG/ML NOTE: HIGH-SENSITIVITY TROPONIN ASSAY IS NOT INTENDED TO BE USED IN ISOLATION BUT SHOULD BE INTERPRETED IN CONJUNCTION WITH OTHER DIAGNOSTIC AND CLINICAL INFORMATION. Performing Lab: see note ML - [facility] LB MR thoracic spine wo con Reviewed date:11/26/2024 03:28:23 PM Interpretation: Performing Lab: Notes/Report: Source Facility: [place] [address] [place] [address] Magnetic Resonance Report Signed Patient: MARY VICK MR#: [id number] : 1955 Acct:[id number] Age/Sex: 69 / F ADM Date: 11/26/24 Loc: MRI Attending Dr: Rhett Norton M.D. Ordering Physician: Richard Askew Date of Service: 11/26/24 Procedure(s): MR thoracic spine wo con Accession Number(s): [id number] cc: NATIVIDAD SILVA ; Richard Askew [place] [address] Patient Name: MARY VICK MRN: [id number] date: 1955 Sex: F Assigned Patient Location: MRI Current Patient Location: MRI Accession/Order Number: [id number] Exam Date: 11/26/2024 10:32 Report Date: 11/26/2024 10:42 At the request of: RICHARD HAWTHORNE Procedure: MR thoracic spine wo con MR thoracic spine wo con 11/26/2024 9:39 AM SIGNS AND SYMPTOMS: Thoracic Back Pain PROTOCOL: Multiplanar multisequence MR images of the thoracic spine without IV contrast COMPARISON: 10/25/2024 FINDINGS: The bones of the thoracic spine are in anatomic alignment. There is a compression deformity involving the T10 vertebral body with accompanying marrow edema and approximately 80% loss of vertebral body height. Edema extends into the pedicles and facets with facet edema on both sides of the joint space at T10-T11. The posterior wall is retropulsion of the spinal canal by 4 mm contributing to moderate stenosis of the spinal canal. The vertebral body heights and intervertebral discs are otherwise preserved. No epidural or paraspinous fluid collection is appreciated. The visualized paraspinous soft tissues are within normal limits. There is a hiatal hernia with gastric fundus in the lower mediastinum similar to the prior exam. At T1-T2: There is a normal disc, central canal, and neural foramen. At T2-T3: There is a normal disc, central canal, and neural foramen. At T3-T4: There is a normal disc, central canal, and neural foramen. At T4-T5: There is a normal disc, central canal, and neural foramen. At T5-T6: There is a normal disc, central canal, and neural foramen. At T6-T7: There is a normal disc, central canal, and neural foramen. At T7-T8: There is a normal disc, central canal, and neural foramen. At T8-T9: There is a normal disc, central canal, and neural foramen. At T9-T10: Facet degenerative changes contribute into mild narrowing of the neural foramina bilaterally. At T10-T11: There is retropulsion of the posterior wall at T10 with facet hypertrophy bilaterally. There is moderate spinal canal narrowing with mild bilateral neural foraminal stenosis. At T11-T12: There is a normal disc, central canal, and neural foramen. At T12-L1: There is a normal disc, central canal, and neural foramen. MR/MR thoracic spine wo con IMPRESSION: There is a compression deformity involving the T10 vertebral body with accompanying marrow edema and approximately 80% loss of vertebral body height. Edema extends into the pedicles and facets with facet edema on both sides of the joint space at T10-T11. The posterior wall is retropulsion of the spinal canal by 4 mm contributing to moderate stenosis of the spinal canal. No epidural or paraspinous hematoma. At T9-T10: Facet degenerative changes contribute into mild narrowing of the neural foramina bilaterally. At T10-T11: There is retropulsion of the posterior wall at T10 with facet hypertrophy bilaterally. There is moderate spinal canal narrowing with mild bilateral neural foraminal stenosis. Impression dictated by: Matteo Gandara M.D. 11/26/2024 10:42 AM Dictation Location: [place] [address] Electronically authenticated by: [id number] Y Date: 11/26/2024 10:42 Dictated By: Matteo Gandara M.D. Signed By: 11/26/24 1045 DD/ 1042 TD/TT: Tractor Engine Assembler: [place] [address] Magnetic Resonance Report Signed Patient: CHRISTINA VICK MR#: [id number] : 1955 Acct:[id number] Age/Sex: 69 / F ADM Date: 11/26/24 Loc: MRI Attending Dr: Rhett Norton M.D. Ordering Physician: Richard Askew Date of Service: 11/26/24 Procedure(s): MR tho racic spine wo con Accession Number(s): [id number] cc: NATIVIDAD SILVA ; Richard Askew [place] [address] Patient Name: MARY VICK MRN: [id number] date: 1955 Sex: F Assigned Patient Location: MRI Current Patient Loca tion: MRI Accession/Order Numb er: [id number] Exam Date: 11/26/2024 10:32 Report Date: 11/26/2024 10:42 At the request of: RICHARD HAWTHORNE Procedure: MR thorac ic spine wo con MR thoracic spine wo con 11/26/2024 9:39 AM SIGNS AND SYMPTOMS: Thoracic Back Pain PROTOCOL: Multiplana r multisequence MR images of the thoracic spine without IV contrast COMPARISON: 10/25/2024 FINDINGS: The bones of the thoracic spine are in anatomic alignment. There is a compression deform ity involving the T10 vertebral body with accompanying marrow edema and approximately 80% loss of vertebral body height. Edema extends into the ped icles and facets with facet edema on both sides of the joint space at T10-T 11. The posterior wall is retropulsion of the spinal canal by 4 mm contributing to moderate stenosis of the spinal canal. The vertebral body heigh ts and intervertebral discs are otherwise preserved. No epidural or paraspin ous fluid collection is appreciated. The visualized paraspinous soft tis sues are within normal limits. There is a hiatal hernia with gastric fundus in the lower mediastinum similar to the prior exam. At T1-T2: There is a normal disc, central canal, and neural foramen. At T2-T3: There is a normal disc, central canal, and neural foramen. At T3-T4: There is a normal disc, central canal, and neural foramen. At T4-T5: There is a normal disc, central canal, and neural foramen. At T5-T6: There is a normal disc, central canal, and neural foramen. At T6-T7: There is a normal disc, central canal, and neural foramen. At T7-T8: There is a normal disc, central canal, and neural foramen. At T8-T9: There is a normal disc, central canal, and neural foramen. At T9-T10: Facet degenerative changes contribute into mild narrowing of the neural foramina bilaterally. At T10-T11: There is retropulsion of the posterior wall at T10 with facet hypertrophy bilatera lly. There is moderate spinal canal narrowing with mild bilateral neural foraminal stenosis. At T11-T12: There is a normal disc, central canal, and neural foramen. At T12-L1: There is a normal disc, central canal, and neural foramen. M R/MR thoracic spine wo con IMPRESSION: There is a compressi on deformity involving the T10 vertebral body with accompanying marrow edema and approximately 80% loss of vertebral body height. Edema extends into t he pedicles and facets with facet edema on both sides of the joint space at T10-T11. The posterior wall is retropulsion of the spinal canal by 4 mm contributing to moderate stenosis of the spinal canal. No epidural or paraspinous hematoma. At T9-T10: Facet degenerative changes contribute into mild narrowing of the neural foramina bilaterally. At T10-T11: There is retropulsion of the posterior wall at T10 with facet hypertrophy bilatera lly. There is moderate spinal canal narrowing with mild bilateral neural foraminal stenosis. Impression dictated by: Matteo Gandara M.D. 11/26/2024 10:42 AM Dictation Location[facility] Electron[facility] authenticated by: [id number] Y Date: 11/26/2024 10:42 Dictated By: Matteo Gandara M.D. Signed By: 11/26/24 1045 DD/ 1042 TD/TT: Tractor Engine Assembler: MR lumbar spine wo con Reviewed date:11/26/2024 03:28:23 PM Interpretation: Performing Lab: Notes/Report: Source Facility: [place] [address] [address] [address] Magnetic Resonance Report Signed Patient: MARY VICK MR#: [id number] : 1955 Acct:[id number] Age/Sex: 69 / F ADM Date: 11/26/24 Loc: MRI Attending Dr: Rhett Norton M.D. Ordering Physician: Richard Askew Date of Service: 11/26/24 Procedure(s): MR lumbar spine wo con Accession Number(s): [id number] cc: NATIVIDAD SILVA ; Richard Askew [address] [address] Patient Name: MARY VICK MRN: [id number] date: 1955 Sex: F Assigned Patient Location: MRI Current Patient Location: MRI Accession/Order Number: [id number] Exam Date: 11/26/2024 10:42 Report Date: 11/26/2024 10:50 At the request of: RICHARD HAWTHORNE Procedure: MR lumbar spine wo con MR lumbar spine wo con 11/26/2024 9:38 AM SIGNS AND SYMPTOMS: Lumbar Pain PROTOCOL: Multiplanar multisequence MR images of the lumbar spine without contrast COMPARISON: 04/19/2023 FINDINGS: The bones of the lumbar spine are in anatomic alignment. There is a compression deformity involving the T10 vertebral body with 50% loss of vertebral body height. This is better demonstrated on the lesion thoracic spine MRI from the same date. The vertebral body heights are otherwise maintained. There is desiccation and mild disc height loss at T12-L1 and L1-L2. There is moderate disc height loss at L5-S1. The conus terminates at the L1-L2 intervertebral disc level. No epidural or paraspinous fluid collection is appreciated. At T12-L1: There is a normal disc, central canal, and neural foramen. At L1-L2: There is a broad-based disc bulge with facet hypertrophy. There is mild spinal canal narrowing and mild bilateral neural foraminal narrowing. At L2-L3: There is a broad-based disc bulge with facet hypertrophy. There is mild spinal canal stenosis with mild bilateral neural foraminal stenosis. At L3-L4: There is a broad-based disc bulge with facet hypertrophy. There is mild spinal canal narrowing with mild bilateral neural foraminal narrowing. At L4-L5: There is facet hypertrophy with ligamentum flavum thickening. There is mild to moderate spinal canal stenosis. No significant neural foraminal narrowing. At L5-S1: There is a circumferential disc bulge. There is facet hypertrophy with ligamentum flavum thickening. There is mild spinal canal narrowing with endplate osteophyte formation contributing to severe right and moderate left neural foraminal narrowing. There is mass effect on the exiting right L5 nerve roots. This is similar to the prior study. MR/MR lumbar spine wo con IMPRESSION: At L5-S1: There is a circumferential disc bulge. There is facet hypertrophy with ligamentum flavum thickening. There is mild spinal canal narrowing with endplate osteophyte formation contributing to severe right and moderate left neural foraminal narrowing. There is mass effect on the exiting right L5 nerve roots. This is similar to the prior study. Lesser degrees of spinal canal and neural foraminal stenosis are redemonstrated as above. No significant interval change otherwise. There is a compression deformity of the T10 vertebral body which is better demonstrated on the thoracic spine MRI from the same date. Impression dictated by: Matteo Gandara M.D. 11/26/2024 10:50 AM Dictation Location: [place] [address] Electronically authenticated by: [id number] Y Date: 11/26/2024 10:50 Dictated By: Matteo Gandara M.D. Signed By: 11/26/24 1053 DD/ 1050 TD/TT: Tractor Engine Assembler: [place] [address] Magnetic Resonance Report Signed Patient: CHRISTINA VICK MR#: [id number] : 1955 Acct:[id number] Age/Sex: 69 / F ADM Date: 11/26/24 Loc: MRI Attending Dr: Rhett Norton M.D. Ordering Physician: Richard Askew Date of Service: 11/26/24 Procedure(s): MR lum bar spine wo con Accession Number(s): [id number] cc: NATIVIDAD SILVA ; Richard Askew [address] [address] Patient Name: MARY VICK MRN: [facility]:[id number] date: 1955 Sex: F Assigned Patient Location: MRI Current Patient Loca tion: MRI Accession/Order Numb er: [id number] Exam Date: 11/26/2024 10:42 Report Date: 11/26/2024 10:50 At the request of: RICHARD HAWTHORNE Procedure: MR lumbar spine wo con MR lumbar spine wo c on 11/26/2024 9:38 AM SIGNS AND SYMPTOMS: Lumbar Pain PROTOCOL: Multiplana r multisequence MR images of the lumbar spine without contrast COMPARISON: 04/19/2023 FINDINGS: The bones of the lumbar spine are in anatomic alignment. There is a compression deformit y involving the T10 vertebral body with 50% loss of vertebral body heigh t. This is better demonstrated on the lesion thoracic spine MRI from the s baudilio date. The vertebral body heights are otherwise maintained. There is desiccation and mild disc height loss at T12-L1 and L1-L2. There is mode rate disc height loss at L5-S1. The conus terminates at the L1-L2 interverte bral disc level. No epidural or paraspinous fluid collection is appreciated. At T12-L1: There is a normal disc, central canal, and neural foramen. At L1-L2: There is a broad-based disc bulge with facet hypertrophy. There is mild spinal canal narrowing and mild bilateral neural foraminal narrowing. At L2-L3: There is a broad-based disc bulge with facet hypertrophy. There is mild spinal canal stenosis with mild bilateral neural foraminal stenosis. At L3-L4: There is a broad-based disc bulge with facet hypertrophy. There is mild spinal canal narrowing with mild bilateral neural foraminal narrowing. At L4-L5: There is f acet hypertrophy with ligamentum flavum thickening. There is mild to moderate spinal canal stenosis. No significant neural foraminal narrowing. At L5-S1: There is a circumferential disc bulge. There is facet hypertrophy with ligamentum flav um thickening. There is mild spinal canal narrowing with endplate osteophyte formation contributing to severe right and moderate left neural foraminal narrowing. There is mass effect on the exiting right L5 nerve roots. This is similar to the prior study. M R/MR lumbar spine wo con IMPRESSION: At L5-S1: There is a circumferential disc bulge. There is facet hypertrophy with ligamentum flav um thickening. There is mild spinal canal narrowing with endplate osteophyte formation contributing to severe right and moderate left neural foraminal narrowing. There is mass effect on the exiting right L5 nerve roots. This is similar to the prior study. Lesser degrees of sp inal canal and neural foraminal stenosis are redemonstrated as ab ove. No significant interval change otherwise. There is a compressi on deformity of the T10 vertebral body which is better demonstrated on the thoracic spine MRI from the same date. Impression dictated by: Matteo Gandara M.D. 11/26/2024 10:50 AM Dictation Location: [place] [address] Electronically authenticated by: [id number] Y Date: 11/26/2024 10:50 Dictated By: Matteo Gandara M.D. Signed By: 11/26/24 1053 DD/ 1050 TD/TT: Tractor Engine Assembler: CT angio chest Reviewed date:10/25/2024 12:12:40 PM Interpretation: Performing Lab: Notes/Report: Source Facility: [place] [address] CT Scan Report Signed Patient: MARY VICK MR#: [id number] : 1955 Acct:[id number] Age/Sex: 69 / F ADM Date: 10/25/24 Loc: ER Attending Dr: Ordering Physician: Donny Escalante M.D. Date of Service: 10/25/24 Procedure(s): CT angio chest Accession Number(s): [id number] cc: NATIVIDAD SILVA [place] [address] Patient Name: MARY VICK MRN: [id number]:[id number] date: 1955 Sex: F Assigned Patient Location: ER Current Patient Location: ER Accession/Order Number: [id number] Exam Date: 10/25/2024 11:50 Report Date: 10/25/2024 12:04 At the request of: DONNY ESCALANTE MD Procedure: CT angio chest CT PULMONARY ANGIOGRAM WITH CONTRAST COMPARISON: 10/23/2024 and 06/06/2024 CLINICAL DATA: Acute shortness of breath and chest pain. Elevated d-dimer. TECHNIQUE: Spiral images were obtained through the chest following intravenous administration of 100 mL of Visipaque 270. Images were reviewed using both narrow and wide window settings. Sagittal, coronal and 3 D volume-rendered reconstructions were performed and reviewed. This CT exam was performed using one or more following dose reduction techniques: Automated exposure control, adjustment of the mA and/or kV according to patient size, or use of iterative reconstruction technique. FINDINGS: The heart is borderline prominent. No pericardial effusion is seen. There is coronary artery disease. No aortic aneurysm or dissection is noted. There is atherosclerotic plaque at the aortic arch, descending aorta and proximal great vessels. There is adequate opacification of the pulmonary arteries. No emboli are identified. Calcified subcarinal and left hilar granulomas are seen. There is a large hiatal hernia. A new compression fracture is visualized at T10. There are old sternal and anterior rib fractures. There are continued interstitial changes and areas of patchy groundglass opacity, unchanged from the recent comparison. There is no developing consolidation, pleural effusion or pneumothorax. A similar tiny nodular density is present at the lateral right middle lobe. There is a left lower lobe calcified granuloma. Limited cuts through the upper abdomen show additional atherosclerotic disease. There are calcified splenic granulomas.. CT/CT angio chest IMPRESSION: NO CT EVIDENCE OF PULMONARY EMBOLISM. BORDERLINE CARDIOMEGALY. LARGE HIATAL HERNIA. SIMILAR PARENCHYMAL CHANGES AND NODULARITY. GRANULOMATOUS CHANGES. NEW T10 COMPRESSION DEFORMITY. Impression dictated by: Alysia Avina M.D. 10/25/2024 12:04 PM Dictation Location: [place] [address] Electronically authenticated by: [id number] Y Date: 10/25/2024 12:04 Dictated By: Alysia Avina M.D. Signed By: 10/25/24 1207 DD/ 1204 TD/TT: Tractor Engine Assembler: [place] [address] CT Scan Report Signed Patient: CHRISTINA VICK MR#: [id number] : 1955 Acct:[id number] Age/Sex: 69 / F ADM Date: 10/25/24 Loc: ER Attending Dr: Ordering Physician: Donny Escalante M.D. Date of Service: 10/25/24 Procedure(s): CT ang io chest Accession Number(s): [id number] cc: NATIVIDAD SILVA [address] [address] Patient Name: MARY VICK MRN: [id number]:[id number] date: 1955 Sex: F Assigned Patient Location: ER Current Patient Loca tion: ER Accession/Order Numb er: [id number] Exam Date: 10/25/2024 11:50 Report Date: 10/25/2024 12:04 At the request of: DONNY ESCALANTE MD Procedure: CT angio chest CT PULMONARY ANGIOGR AM WITH CONTRAST COMPARISON: 10/23/2024 and 06/06/2024 CLINICAL DATA: Acute shortness of breath and chest pain. Elevated d-dimer. TECHNIQUE: Spiral im ages were obtained through the chest following intravenous administration of 100 mL of Visipaque 270. Images were reviewed using both narrow an d wide window settings. Sagittal, coronal and 3 D volume-rendered reconstructions were performed and reviewed. This CT exam was performed using one or more following dose reduction techniques: Automated exposure control, adjustment of the mA and/or kV according to patient size, or use of iterative reconstruction technique. FINDINGS: The heart is borderline prominent. No pericardial effusion is seen. There is coronary ar courtney disease. No aortic aneurysm or dissection is noted. There is atheroscler otic plaque at the aortic arch, descending aorta and proximal great vesse ls. There is adequate opacification of the pulmonary arteries. No emboli are identified. Calcified subcarinal and left hilar granulomas are seen. There is a large hiatal hernia. A new compression fracture is visualiz ed at T10. There are old sternal and anterior rib fractures. There are continued interstitial changes and areas of patchy groundglass opacity, unchanged f rom the recent comparison. There is no developing consolidation, pleur al effusion or pneumothorax. A similar tiny nodular density is present a t the lateral right middle lobe. There is a left lower lobe calcified granuloma. Limited cuts through the upper abdomen show additional atherosclerotic disease. There are calcified splenic granulomas.. C T/CT angio chest IMPRESSION: NO CT EVIDENCE OF PULMONARY EMBOLISM. BORDERLINE CARDIOMEGALY. LARGE HIATAL HERNIA. SIMILAR PARENCHYMAL CHANGES AND NODULARITY. GRANULOMATOUS CHANGES. NEW T10 COMPRESSION DEFORMITY. Impression dictated by: Alysia Avina M.D. 10/25/2024 12:04 PM Dictation Location: [place] [address] Electronically authenticated by: [id number] Y Date: 10/25/2024 12:04 Dictated By: Alysia Avina M.D. Signed By: 10/25/24 1207 DD/ 03 TD/TT: Tractor Engine Assembler: XR chest 1V Reviewed date:10/25/2024 11:04:31 AM Interpretation: Performing Lab: Notes/Report: Source Facility: [place] [address] XRay Report Signed Patient: MARY VICK MR#: [id number] : 1955 Acct:[id number] Age/Sex: 69 / F ADM Date: 10/25/24 Loc: ER Attending Dr: Ordering Physician: Donny Escalante M.D. Date of Service: 10/25/24 Procedure(s): XR chest 1V Accession Number(s): [id number] cc: NATIVIDAD SILVA ; Donny Escalante M.D. [place] [address] Patient Name: MARY VICK MRN: [id number]:[id number] date: 1955 Sex: F Assigned Patient Location: ED.MAIN Current Patient Location: ED.MAIN Accession/Order Number: [id number] Exam Date: 10/25/2024 10:25 Report Date: 10/25/2024 10:29 At the request of: DONNY ESCALANTE MD Procedure: XR chest 1V PORTABLE AP ERECT CHEST t 100 hours CLINICAL HISTORY: Chest pain and shortness of breath COMPARISON: 06/17/[address] 10/24/2024 The heart is borderline enlarged. There is also a large hiatal hernia. Mild interstitial changes and minor groundglass density are again noted. There is minor atelectasis and/or scarring. No developing consolidation, sizable effusion or pneumothorax is noted. The bony structures are osteopenic . XR/XR chest 1V IMPRESSION: BORDERLINE CARDIOMEGALY AND LARGE HIATAL HERNIA. CONTINUED INTERSTITIAL AND MILD GROUNDGLASS PARENCHYMAL CHANGES. THIS COULD BE INFECTIOUS OR INFLAMMATORY HOWEVER FAILURE IS ALSO IN THE DIFFERENTIAL. CORRELATION IS RECOMMENDED. Impression dictated by: Alysia Avina M.D. 10/25/2024 10:29 AM Dictation Location: [place] [address] Electronically authenticated by: [id number] Y Date: 10/25/2024 10:29 Dictated By: Alysia Avina M.D. Signed By: 10/25/24 1031 DD/ 1029 TD/TT: Tractor Engine Assembler: [place] [address] XRay Report Signed Patient: CHRISTINA VICK MR#: [id number] : 1955 Acct:[id number] Age/Sex: 69 / F ADM Date: 10/25/24 Loc: ER Attending Dr: Ordering Physician: Donny Escalante M.D. Date of Service: 10/25/24 Procedure(s): XR chest 1V Accession Number(s): [id number] cc: NATIVIDAD SILVA ; Donny Escalante M.D. [place] [id number] Patient Name: MARY VICK MRN: [id number] date: 1955 Sex: F Assigned Patient Location: ED.MAIN Current Patient Loca tion: ED.MAIN Accession/Order Numb er: [id number] Exam Date: 10/25/2024 10:25 Report Date: 10/25/2024 10:29 At the request of: DONNY ESCALANTE MD Procedure: XR chest 1V PORTABLE AP ERECT CH EST t 100 hours CLINICAL HISTORY: Ch est pain and shortness of breath COMPARISON: and CT 10/24/2024 The heart is borderl ine enlarged. There is also a large hiatal hernia. Mild interstitial changes and minor groundglass density are again noted. There is minor atelectasis an d/or scarring. No developing consolidation, sizable effusion or pneumoth orax is noted. The bony structures are osteopenic . X R/XR chest 1V IMPRESSION: BORDERLINE CARDIOMEG JANNETH AND LARGE HIATAL HERNIA. CONTINUED INTERSTITI AL AND MILD GROUNDGLASS PARENCHYMAL CHANGES. THIS COULD BE INFECTIOUS OR INFLAMMATORY HOWEVER FAILURE IS ALSO IN THE DIFFERENTIAL. CORRELATION IS RECOMMENDED. Impression dictated by: Alysia Avina M.D. 10/25/2024 10:29 AM Dictation Location: [place] [address] Electronically authenticated by: [id number] Y Date: 10/25/2024 10:29 Dictated By: Alysia Avina M.D. Signed By: 10/25/24 1031 DD/ 1029 TD/TT: Tractor Engine Assembler: ECG 12 lead Reviewed date:10/26/2024 08:52:28 AM Interpretation: Performing Lab: Notes/Report: Source Facility: [place] [address] Electrocardiograph Report Signed Patient: MARY VICK MR#: [id number] : 1955 Acct:[id number] Age/Sex: 69 / F ADM Date: 10/25/24 Loc: ER Attending Dr: Ordering Physician: Donny Escalante M.D. Date of Service: 10/25/24 Procedure(s): ECG 12 lead Accession Number(s): [id number] cc: [facility] Test Date: 2024-10-25 Pat Name: MARY VICK Department: Room: - Gender: Female Pipe Inspector: : 1955 Requested By: 1030 Order Number: [id number] Reading MD: EFFIE COOK M.D. Measurements Intervals Hughson Rate: 77 P: 28 MN: 156 QRS: 72 QRSD: 88 T: 66 QT: 390 QTc: 421 Interpretive Statements 1100 Sinus rhythm 9110 normal ECG Compared to ECG 06/17/2024 10:59:54 No significant changes Electronically Signed On 10-25-2024 20:19:40 EDT by EFFIE COOK M.D. Dictated By: EFFIE COOK Signed By: 10/25/242019 DD/ 0 TD/TT: Tractor Engine Assembler: [place] [address] Electrocardiograph Report Signed Patient: CHRISTINA VICK MR#: [id number] : 1955 Acct:[id number] Age/Sex: 69 / F ADM Date: 10/25/24 Loc: ER Attending Dr: Ordering Physician: Donny Escalante M.D. Date of Service: 10/25/24 Procedure(s): ECG 12 lead Accession Number(s): [id number] cc: [facility] Test Date: 2024-10-25 Pat Name: MARY TOLLIVER Department: 45 Room: - Gender: Female Pipe Inspector: : 1955 Requested By: 1030 Order Number: [id number] Reading MD: EFFIE COOK M.D. Measurements Intervals Hughson Rate: 77 P: 28 MN: 156 QRS: 72 QRSD: 88 T: 66 QT: 390 QTc: 421 Interpretive Statements 1100 Sinus rhythm 9110 normal ECG Compared to ECG 06/17/2024 10:59:54 No significant changes Electronically Ashlyn d On 10-25-2024 20:19:40 EDT by EFFIE COOK M.D. Dictated By: EFFIE COOK Signed By: 10/25/242019 DD/ 0 TD/TT: Tractor Engine Assembler: D-DIMER Reviewed date:10/25/2024 11:04:31 AM Interpretation: Performing Lab: Notes/Report: [facility] , D Dimer 0.98 <=0.59 mg/L FEU RESULTS CALLED TO YARELI OSKAR, RN Increases in D-Dimer concentration observed with [...] hospitalization. Performing Lab: see note ML - [facility] LB CBC AUTO DIFF Reviewed date:10/25/2024 11:04:31 AM Interpretation: Performing Lab: Notes/Report: [facility] , White Blood Count 14.5 4.0-11.0 10 3/uL Red Blood Count 4.28 4.20-5.40 10 6/uL Hemoglobin 13.0 12.0-16.0 g/dL Hematocrit 39.0 36.0-48.0 % Mean Corpuscular Volume 91.1 81.0-99.0 fL Mean Corpuscular Hemoglobin 30.4 26.7-34.0 pg Mean Corpuscular HGB Conc 33.3 29.9-35.2 g/dL Red Cell Distribution Width 16.9 11.0-15.0 % Platelet Count 373 150-450 10 3/uL Mean Platelet Volume 10.0 9.5-13.5 fL Neutrophils Percent Auto 91.7 43.0-75.0 % Lymphocytes Percent Auto 3.0 20.5-60.0 % Monocytes Percent Auto 2.9 1.7-12.0 % Eosinophils Percent Auto 0.0 0.9-7.0 % Basophils Percent Auto 0.3 0.2-2.0 % Immature Granulocytes Pct Auto 2.1 0.0-0.5 % Neutrophils Absolute Auto 13.3 1.4-6.5 10 3/uL Lymphocytes Absolute Auto 0.4 1.2-3.8 10 3/uL Monocytes Absolute Auto 0.4 0.3-0.8 10 3/uL Eosinophils Absolute Auto 0.0 0.0-0.7 10 3/uL Basophils Absolute Auto 0.0 0.0-0.1 10 3/uL Immature Granulocytes Abs Auto 0.31 0.00-0.03 10 3/uL Performing Lab: see note ML - [facility] LB BNP Reviewed date:10/25/2024 11:04:31 AM Interpretation: Performing Lab: Notes/Report: [facility] , NT Pro B Type Natriuretic Pept 44.0 <=900.0 pg/mL Performing Lab: see note ML - [facility] LB XR wrist LT min 3V Reviewed date:09/10/2024 10:40:29 AM Interpretation: Performing Lab: Notes/Report: Source Facility: [facility]-[address] [place] [address] [place] [address] XRay Report Signed Patient: MARY VICK MR#: [id number] : 1955 Acct:[id number] Age/Sex: 69 / F ADM Date: 09/10/24 Loc: Attending Dr: Raudel Royal M.D. Ordering Physician: Raudel Royal M.D. Date of Service: 09/10/24 Procedure(s): XR wrist LT min 3V Accession Number(s): [id number] cc: NATIVIDAD SILVA ; Raudel Royal M.D. The [place] [address] Patient Name: MARY VICK MRN: [id number]:[id number] date: 1955 Sex: F Assigned Patient Location: Current Patient Location: Accession/Order Number: [id number] Exam Date: 09/10/2024 10:26 Report Date: 09/10/2024 [...] Ghanshyam Mendez M.D.09/10/2024 10:27 AM Dictation Location: [place] [address] Electronically authenticated by: [id number] Y Date: 09/10/2024 10:27 Dictated By: Ghanshyam Mendez D.O. Signed By: 09/10/241028 DD/ 102 TD/TT: Tractor Engine Assembler: The [address] [address] XRay Report Signed Patient: CHRISTINA VICK MR#: [id number] : 1955 Acct:[id number] Age/Sex: 69 / F ADM Date: 09/10/24 Loc: EC Attending Dr: Raudel Royal M.D. Ordering Physician: Raudel Royal M.D. Date of Service: 09/10/24 Procedure(s): XR wri st LT min 3V Accession Number(s): [id number] cc: NATIVIDAD SILVA ; Raudel Royal M.D. The [place] [address] Patient Name: MARY VICK MRN: [id number]:[id number] date: 1955 Sex: F Assigned Patient Location: Current Patient Loca tion: EC Accession/Order Numb er: [id number] Exam Date: 09/10/2024 10:26 Report Date: 09/10/2024 10:27 At the request of: RAUDEL ROYAL MD Procedure: XR wrist LT min 3V 3 views left wrist p lnida film COMPARISON: 08/13/2024 HISTORY: Follow-up l eft wrist ORIF ACUTE FINDINGS: Cont inued healing. Stable alignment. DEGENERATIVE CHANGE: Unremarkable SOFT TISSUE FINDINGS : Unremarkable JOINT EFFUSION: None POSTOP CHANGES: No hardware failure. BONE MINERALIZATION: Adequate X R/XR wrist LT min 3V IMPRESSION: Healing fracture with stable alignment and hardware. Impression dictated by: Ghanshyam Mendez M.D.09/10/2024 10:27 AM Dictation Location: [place] [address] Electronically authenticated by: [id number] Y Date: 09/10/2024 10:27 Dictated By: Kenn Mendez D.O. Signed By: 09/10/241028 DD/ 1027 TD/TT: Tractor Engine Assembler: XR wrist LT min 3V Reviewed date:08/13/2024 04:11:06 PM Interpretation: Performing Lab: Notes/Report: Source Facility: [place] [address] XRay Report Signed Patient: MARY VICK MR#: [id number] : 1955 Acct:[id number] Age/Sex: 69 / F ADM Date: 08/13/24 Loc: EC Attending Dr: Raudel Royal M.D. Ordering Physician: Raudel Royal M.D. Date of Service: 08/13/24 Procedure(s): XR wrist LT min 3V Accession Number(s): [id number] cc: NATIVIDAD SILVA ; Raudel Royal M.D. The [place] [address] Patient Name: MARY VICK MRN: [id number]:[id number] date: 1955 Sex: F Assigned Patient Location: Current Patient Location: Accession/Order Number: [id number] Exam Date: 08/13/2024 14:03 Report Date: 08/13/2024 [...] HEALING DISTAL ULNAR FRACTURE. Impression dictated by: Giuseppe Caal Jr.OAnkur08/13/2024 2:04 PM Dictation Location: [place] [address] Electronically authenticated by: [id number] Y Date: 08/13/2024 14:04 Dictated By: Travis Borrero M.D. Signed By: 08/13/24 1407 DD/ 03 TD/TT: Tractor Engine Assembler: The [address] [address] XRay Report Signed Patient: CHRISTINA VICK MR#: [id number] : 1955 Acct:[id number] Age/Sex: 69 / F ADM Date: 08/13/24 Loc: EC Attending Dr: Raudel Royal M.D. Ordering Physician: Raudel Royal M.D. Date of Service: 08/13/24 Procedure(s): XR wri st LT min 3V Accession Number(s): [id number] cc: NATIVIDAD SILVA ; Raudel Royal M.D. The [place] [id number] Patient Name: MARY VICK MRN: [id number]:[id number] date: 1955 Sex: F Assigned Patient Location: EC Current Patient Loca tion: EC Accession/Order Numb er: [id number] Exam Date: 08/13/2024 14:03 Report Date: 08/13/2024 [...] Borrero Jr., D.O.08/13/2024 2:04 PM Dictation Location: [place] [address] Electronically authenticated by: [id number] Y Date: 08/13/2024 14:04 Dictated By: Travis Borrero M.D. Signed By: 08/13/241406 DD/ 03 TD/TT: Tractor Engine Assembler: XR wrist LT min 3V Reviewed date:07/16/2024 01:45:20 PM Interpretation: Performing Lab: Notes/Report: Source Facility: [place] [address] [address] XRay Report Signed Patient: MARY VICK MR#: [id number] : 1955 Acct:[id number] Age/Sex: 68 / F ADM Date: 07/16/24 Loc: EC Attending Dr: Raudel Royal M.D. Ordering Physician: Raudel Royal M.D. Date of Service: 07/16/24 Procedure(s): XR wrist LT min 3V Accession Number(s): [id number] cc: NATIVIDAD SILVA ; Raudel Royal M.D. [place] [id number] Patient Name: MARY VICK MRN: [id number]:[id number] date: 1955 Sex: F Assigned Patient Location: Current Patient Location: Accession/Order Number: [id number] Exam Date: 07/16/2024 13:24 Report Date: 07/16/2024 [...] Alysia Avina M.D.07/16/2024 1:26 PM Dictation Location: [place] [address] Electronically authenticated by: [id number] Y Date: 07/16/2024 13:26 Dictated By: Alysia Avina M.D. Signed By: 07/16/24 1329 DD/ 1326 TD/TT: Tractor Engine Assembler: [address] [address] XRay Report Signed Patient: CHRISTINA VICK MR#: [id number] : 1955 Acct:[id number] Age/Sex: 68 / F ADM Date: 07/16/24 Loc: EC Attending Dr: Raudel Royal M.D. Ordering Physician: Raudel Royal M.D. Date of Service: 07/16/24 Procedure(s): XR wri st LT min 3V Accession Number(s): [id number] cc: NATIVIDAD SILVA ; Raudel Royal M.D. [address] [address] Patient Name: MARY VICK MRN: [id number]:[id number] date: 1955 Sex: F Assigned Patient Location: EC Current Patient Loca tion: EC Accession/Order Numb er: [id number] Exam Date: 07/16/2024 13:24 Report Date: 07/16/2024 [...] Alysia Avina M.D.07/16/2024 1:26 PM Dictation Location: [place] [address] Electronically authenticated by: [id number] Y Date: 07/16/2024 13:26 Dictated By: Alysia Avina M.D. Signed By: 07/16/24 1329 DD/ 25 TD/TT: Tractor Engine Assembler: FL fluoroscopy <1hr NON-READ Reviewed date:06/13/2024 12:18:22 PM Interpretation: Performing Lab: Notes/Report: Source Facility: [place] [address] [place] [address] Fluoroscopy Report Signed Patient: MARY VICK MR#: [id number] : 1955 Acct:[id number] Age/Sex: 68 / F ADM Date: 06/11/24 Loc: SURGOUT Attending Dr: Raudel Royal M.D. Ordering Physician: Raudel Royal M.D. Date of Service: 06/11/24 Procedure(s): FL fluoroscopy <1hr NON-READ Accession Number(s): [id number] cc: NATIVIDAD SILVA ; Raudel Royal M.D. [place] [address] Patient Name: MARY VICK MRN: [facility]:[id number] date: 1955 Sex: F Assigned Patient Location: [facility] Current Patient Location: Accession/Order Number: [id number] Exam Date: 06/11/2024 15:25 Report Date: 06/13/2024 07:28 At the request of: RAUDEL ROYAL Procedure: FL fluoroscopy <1hr NON-READ EXAM: FL fluoroscopy <1hr NON-READ HISTORY: TECHNIQUE: FINDINGS: Please see Operative Report. Electronically authenticated by: RADIOLOGIST NO Date: 06/13/2024 07:28 Dictated By: ElizabethRadiologist Signed By: 06/13/24 0730 DD/ 7 TD/TT: Tractor Engine Assembler: [place] [address] Fluoroscopy Report Signed Patient: CHRISTINA VICK MR#: [id number] : 1955 Acct:[id number] Age/Sex: 68 / F ADM Date: 06/11/24 Loc: SURGOUT Attending Dr: Raudel Royal M.D. Ordering Physician: Raudel Royal M.D. Date of Service: 06/11/24 Procedure(s): FL fluoroscopy <1hr NON-READ Accession Number(s): [id number] cc: NATIVIDAD SILVA ; Raudel Royal M.D. [place] [address] Patient Name: MARY VICK MRN: [id number]:[id number] date: 1955 Sex: F Assigned Patient Location: SURGOUT Current Patient Location: Accession/Order Numb er: [id number] Exam Date: 06/11/2024 15:25 Report Date: 06/13/2024 07:28 At the request of: RAUDEL ROYAL Procedure: FL fluoro scopy <1hr NON-READ EXAM: FL fluoroscopy <1hr NON-READ HISTORY: TECHNIQUE: FINDINGS: Please see Operative Report. Electronically authenticated by: NARAYAN RIVERO Date: 06/13/2024 07:28 Dictated By: ElizabethRadiologist Signed By: 06/13/24729 DD/ 7 TD/TT: Tractor Engine Assembler: ECG 12 lead Reviewed date:06/12/2024 04:07:12 PM Interpretation: Performing Lab: Notes/Report: Source Facility: [place] [address] Electrocardiograph Report Signed Patient: MARY VICK MR#: [id number] : 1955 Acct:[id number] Age/Sex: 68 / F ADM Date: 06/11/24 Loc: SURGOUT Attending Dr: Raudel Royal M.D. Ordering Physician: Bull Maria M.D. Date of Service: 06/11/24 Procedure(s): ECG 12 lead Accession Number(s): [id number] cc: [facility] Test Date: 2024-06-11 Pat Name: MARY VICK Department: Room: - Gender: Female Pipe Inspector: : 1955 Requested By: 1850 Order Number: [id number] Reading MD: JOSE RAFAEL VALADEZ Measurements Intervals Hughson Rate: 57 P: 18 MN: 168 QRS: 1 QRSD: 93 T: 25 QT: 430 QTc: 421 Interpretive Statements SINUS BRADYCARDIA Compared to ECG 09/17/2022 11:07:43 Sinus rhythm no longer present Sinus arrhythmia no longer present Electronically Signed On 06-11-2024 17:57:02 EST by JOSE RAFAEL VALADEZ Dictated By: Jose Rafael Valadez D.O. Signed By: 06/11/241756 DD/ 1340 TD/TT: Tractor Engine Assembler: [place] [address] Electrocardiograph Report Signed Patient: CHRISTINA VICK MR#: [id number] : 1955 Acct:[id number] Age/Sex: 68 / F ADM Date: 06/11/24 Loc: SURGOUT Attending Dr: Raudel Royal M.D. Ordering Physician: Bull Maria M.D. Date of Service: 06/11/24 Procedure(s): ECG 12 lead Accession Number(s): [id number] cc: [facility] Test Date: 2024-06-11 Pat Name: MARY TOLLIVER Department: 45 Room: - Gender: Female Pipe Inspector: : 1955 Requ ested By: 1849 Order Number: [id number] Reading MD: JOSE RAFAEL VALADEZ Measurements Intervals Hughson Rate: 57 P: 18 MN: 168 QRS: 1 QRSD: 93 T: 25 QT: 430 QTc: 421 Interpretive Statements SINUS BRADYCARDIA Compared to ECG 09/17/2022 11:07:43 Sinus rhythm no long er present Sinus arrhythmia no longer present Electronically Ashlyn d On 06-11-2024 17:57:02 EST by JOSE RAFAEL VALADEZ Dictated By: Jose Rafael Valadez D.O. Signed By: 06/11/241756 DD/ 1340 TD/TT: Tractor Engine Assembler: ABRAN chest 2V Reviewed date:06/07/2024 12:42:46 PM Interpretation: Performing Lab: Notes/Report: Source Facility: [place] [address] [place] [address] XRay Report Signed Patient: MARY VICK MR#: [id number] : 1955 Acct:[id number] Age/Sex: 68 / F ADM Date: 06/06/24 Loc: MS 220-[address]: Luisito Townsend M.D. Ordering Physician: Luisito Townsend M.D. Date of Service: 06/07/24 Procedure(s): XR chest 2V Accession Number(s): [id number] cc: NATIVIDAD SILVA ; Luisito Townsend M.D. [facility] [place] [id number] Patient Name: MARY VICK MRN: TBH:[id number] date: 1955 Sex: F Assigned Patient Location: MS Current Patient Location: MS Accession/Order Number: [id number] Exam Date: 06/07/2024 08:45 Report Date: 06/07/2024 09:00 At the request of: LUISITO TOWNSEND Procedure: XR chest 2V EXAMINATION: XR [...] M.D. Signed By: 06/07/24902 DD/ 9 TD/TT: Tractor Engine Assembler: [place] [address] XRay Report Signed Patient: CHRISTINA VICK MR#: [id number] : 1955 Acct:[id number] Age/Sex: 68 / F ADM Date: 06/06/24 Loc: MS 220-[address]: Ga Townsend M.D. Ordering Physician: Luisito Townsend M.D. Date of Service: 06/07/24 Procedure(s): XR chest 2V Accession Number(s): [id number] cc: NATIVIDAD SILVA ; Luisito Townsend M.D. [facility] [place] [address] Patient Name: MARY VICK MRN: [id number]:[id number] date: 1955 Sex: F Assigned Patient Location: MS Current Patient Loca tion: MS Accession/Order Numb er: [id number] Exam Date: 06/07/2024 08:45 Report Date: 06/07/2024 09:00 At the request of: LUISITO TOWNSEND Procedure: XR chest 2V EXAMINATION: XR [...] ROBERT CONDON Date: 06/07/2024 09:00 Dictated By: Sharee Condon M.D. Signed By: 06/07/24902 DD/ 9 TD/TT: Tractor Engine Assembler: JÚNIOR ORTEGA W or MICROSCOPIC Reviewed date:06/07/2024 12:42:46 PM Interpretation: Performing Lab: Notes/Report: [facility] , Color Urine YELLOW YELLOW Clarity Urine CLEAR CLEAR Specific Wagner Urine >=1.030 1.005-1.025 pH Urine 5.5 5.0-9.0 [...] #/LPF Performing Lab: see note ML - [facility] LB PROF 14(COMP METB) Reviewed date:06/07/2024 12:42:46 PM Interpretation: Performing Lab: Notes/Report: [facility] , Sodium 138 136-145 mmol/L Potassium 3.6 3.5-5.1 mmol/L Chloride 105 98-107 mmol/L Carbon Dioxide 25.7 21.0-32.0 mmol/L Anion Gap 10.9 Glucose 122 74-106 mg/dL Blood Urea Nitrogen 16.0 7.0-18.0 mg/dL Creatinine 0.94 0.55-1.02 mg/dL Estimated GFR ( Cheyanne >60 >=60 mL/min/1.73m 2 Estimated GFR (Non- Baudilio 59 >=60 mL/min/1.73m 2 BUN Creatinine Ratio 17.0 Calcium 8.2 8.5-10.1 mg/dL Bilirubin Total 0.3 0.2-1.0 mg/dL Aspartate Amino Transferase 14 15-37 U/L Alanine Aminotransferase 15 14-59 U/L Alkaline Phosphatase 63 46-116 U/L Total Protein 5.9 6.4-8.2 g/dL Albumin Level 2.7 3.4-5.0 g/dL Globulin 3.2 Albumin Globulin Ratio 0.8 Performing Lab: see note ML - [facility] LB CBC AUTO DIFF Reviewed date:06/07/2024 12:42:46 PM Interpretation: Performing Lab: Notes/Report: [facility] , White Blood Count 7.5 4.0-11.0 10 [...] 10 3/uL Performing Lab: see note - [facility] Troponin I High Sensitivity Reviewed date:06/06/2024 06:59:30 PM Interpretation: Performing Lab: Notes/Report: [facility] , Troponin I High Sensitivity 5.6 4.0-51.3 pg/mL CUT-OFF POINTS HAVE BEEN ESTABLISHED BASED ON THE FOURTH UNIVERSAL DEFINITION OF MYOCARDIAL INFARCTION. THE UPPER REFERENCE LIMIT (URL) OF TROPONIN, DEFINED THE 99TH PERCENTILE OF cTnI DISTRIBUTION IN A REFERENCE POPULATION, HAS BEEN CONFIRMED THE DECISION THRESHOLD FOR IN DIAGNOSIS. 99TH PERCENTILE = 51.4 PG/ML NOTE: HIGH-SENSITIVITY TROPONIN ASSAY IS NOT INTENDED TO BE USED IN ISOLATION BUT SHOULD BE INTERPRETED IN CONJUNCTION WITH OTHER DIAGNOSTIC AND CLINICAL INFORMATION. Performing Lab: see note - [facility] LB BNP Reviewed date:06/06/2024 06:59:30 PM Interpretation: Performing Lab: Notes/Report: [facility] , NT Pro B Type Natriuretic Pept 59.0 <=900.0 pg/mL Performing Lab: see note - [facility] LB CT cervical spine wo con Reviewed date:06/06/2024 06:59:30 PM Interpretation: Performing Lab: Notes/Report: Source Facility: [facility]-[address] [place] [address] [place] [address] CT Scan Report Signed Patient: MARY VICK MR#: [id number] : 1955 Acct:[id number] Age/Sex: 68 / F ADM Date: 06/06/24 Loc: MS 220-[address]: Luisito Townsend M.D. Ordering Physician: Lesia Holguin D.O. Date of Service: 06/06/24 Procedure(s): CT cervical spine wo con Accession Number(s): [id number] cc: NATIVIDAD SILVA [place] [address] Patient Name: MARY VICK MRN: [id number] date: 1955 Sex: F Assigned Patient Location: ER Current Patient Location: [place] Accession/Order Number: [id number] Exam Date: 06/06/2024 09:14 Report Date: 06/06/2024 [...] M.D. Signed By: 06/06/241516 DD/ 14 TD/TT: Tractor Engine Assembler: [place] [address] CT Scan Report Signed Patient: CHRISTINA VICK MR#: [id number] : 1955 Acct:[id number] Age/Sex: 68 / F ADM Date: 06/06/24 Loc: MS 220-[address]: Ga Townsend M.D. Ordering Physician: Lesia Holguin D.O. Date of Service: 06/06/24 Procedure(s): CT cer vical spine wo con Accession Number(s): [id number] cc: NATIVIDAD SILVA [place] [address] Patient Name: MARY VICK MRN: [id number] date: 1955 Sex: F Assigned Patient Location: ER Current Patient Loca tion: MS Accession/Order Numb er: [id number] Exam Date: 06/06/2024 09:14 Report Date: 06/06/2024 [...] Quintana M.D. Signed By: 06/06/24 1517 DD/ 14 TD/TT: Tractor Engine Assembler: XR wrist LT min 3V Reviewed date:06/06/2024 10:53:15 AM Interpretation: Performing Lab: Notes/Report: Source Facility: [place] [address] XRay Report Signed Patient: MARY VICK MR#: [id number] : 1955 Acct:[id number] Age/Sex: 68 / F ADM Date: 06/06/24 Loc: ER Attending Dr: Ordering Physician: Lesia Holguin D.O. Date of Service: 06/06/24 Procedure(s): XR wrist LT min 3V Accession Number(s): [id number] cc: NATIVIDAD SILVA ; Lesia Holguin D.O. [facility] [place] [address] Patient Name: MARY VICK MRN: [facility]:[id number] date: 1955 Sex: F Assigned Patient Location: ER Current Patient Location: ER Accession/Order Number: [id number] Exam Date: 06/06/2024 09:14 Report Date: 06/06/2024 [...] styloid process. 3. Osteoporosis. Electronically authenticated by: LUISITO CHRISTIANSON Date: 06/06/2024 10:30 Dictated By: Luisito Christianson M.D. Signed By: 06/06/24 1033 DD/ 1030 TD/TT: Tractor Engine Assembler: [place] [address] XRay Report Signed Patient: CHRISTINA VICK MR#: [id number] : 1955 Acct:[id number] Age/Sex: 68 / F ADM Date: 06/06/24 Loc: ER Attending Dr: Ordering Physician: Lesia Holguin D.O. Date of Service: 06/06/24 Procedure(s): XR wri st LT min 3V Accession Number(s): [id number] cc: NATIVIDAD SILVA ; Lesia Holguin D.O. [place] [id number] Patient Name: MARY VICK MRN: [id number]:[id number] date: 1955 Sex: F Assigned Patient Location: ER Current Patient Loca tion: ER Accession/Order Numb er: [id number] Exam Date: 06/06/2024 09:14 Report Date: 06/06/2024 [...] styloid process. 3. Osteoporosis. Electronically authenticated by: LUISITO CHRISTIANSON Date: 06/06/2024 10:30 Dictated By: Luisito Christianson M.D. Signed By: 06/06/24 1033 DD/ 1030 TD/TT: Tractor Engine Assembler: CT head/brain wo con Reviewed date:06/06/2024 06:59:30 PM Interpretation: Performing Lab: Notes/Report: Source Facility: [place] [address] CT Scan Report Signed Patient: MARY VICK MR#: [id number] : 1955 Acct:[id number] Age/Sex: 68 / F ADM Date: 06/06/24 Loc: MS 220-[address]: Luisito Townsend M.D. Ordering Physician: Lesia Holguin D.O. Date of Service: 06/06/24 Procedure(s): CT head/brain wo con Accession Number(s): [id number] cc: NATIVIDAD SILVA [place] [address] Patient Name: MARY VICK MRN: [id number]:[id number] date: 1955 Sex: F Assigned Patient Location: Current Patient Location: [place] Accession/Order Number: [id number] Exam Date: 06/06/2024 09:14 Report Date: 06/06/2024 [...] is intact. No skull fracture. Nasopharynx normal. Procedural Nurse spaces normal. Orbital contents are unremarkable. Mild [...] M.D. Signed By: 06/06/241516 DD/ 14 TD/TT: Tractor Engine Assembler: [place] [address] CT Scan Report Signed Patient: CHRISTINA VICK MR#: [id number] : 1955 Acct:[id number] Age/Sex: 68 / F ADM Date: 06/06/24 Loc: MS 220-[address]: Ga Townsend M.D. Ordering Physician: Lesia Holguin D.O. Date of Service: 06/06/24 Procedure(s): CT head/brain wo con Accession Number(s): [id number] cc: NATIVIDAD SILVA [place] [address] Patient Name: MARY VICK MRN: [id number]:[id number] date: 1955 Sex: F Assigned Patient Location: ER Current Patient Loca tion: MS Accession/Order Numb er: [id number] Exam Date: 06/06/2024 09:14 Report Date: 06/06/2024 [...] is intact. No skull fracture. Nasopharynx normal. Procedural Nurse spaces normal. Orbital contents are unremarkable. Mild [...] Quintana M.D. Signed By: 06/06/24 1517 DD/ 14 TD/TT: Tractor Engine Assembler: CT FACIAL BONES WO CON Reviewed date:06/06/2024 06:59:30 PM Interpretation: Performing Lab: Notes/Report: Source Facility: [place] [address] CT Scan Report Signed Patient: MARY VICK MR#: [id number] : 1955 Acct:[id number] Age/Sex: 68 / F ADM Date: 06/06/24 Loc: MS 220-[address]: Luisito Townsend M.D. Ordering Physician: Lesia Holguin D.O. Date of Service: 06/06/24 Procedure(s): CT facial bones wo con Accession Number(s): [id number] cc: NATIVIDAD SILVA [place] [address] Patient Name: MARY VICK MRN: [id number] date: 1955 Sex: F Assigned Patient Location: ER Current Patient Location: MS Accession/Order Number: [id number] Exam Date: 06/06/2024 09:14 Report Date: 06/06/2024 [...] Dictated By: Oleg Quintana M.D. Signed By: 06/06/24 1517 DD/ 1515 TD/TT: Tractor Engine Assembler: [place] [address] CT Scan Report Signed Patient: CHRISTINA VICK MR#: [id number] : 1955 Acct:[id number] Age/Sex: 68 / F ADM Date: 06/06/24 Loc: MS 220-[address]: Ga Townsend M.D. Ordering Physician: Lesia Holguin D.O. Date of Service: 06/06/24 Procedure(s): CT fac ial bones wo con Accession Number(s): [id number] cc: NATIVIDAD SILVA [address] [address] Patient Name: MARY VICK MRN: [id number]:[id number] date: 1955 Sex: F Assigned Patient Location: ER Current Patient Loca tion: MS Accession/Order Numb er: [id number] Exam Date: 06/06/2024 09:14 Report Date: 06/06/2024 [...] Signed By: 06/06/24 1517 DD/ 1515 TD/TT: Tractor Engine Assembler: Prothrombin Time INR Reviewed date:06/06/2024 09:21:21 AM Interpretation: Performing Lab: Notes/Report: [facility] , Prothrombin Time 10.4 9.0-11.6 sec INR 0.98 DESIRED INR: 2.0-3.0 CONDITIONS NOT LISTED BELOW 2.5-3.5 FOR PROSTHETIC HEART VALVE REPLACEMENT 2.5-3.5 RECURRENT THROMBOSIS Performing Lab: see note ML - [facility] LB PROF 14(COMP METB) Reviewed date:06/06/2024 09:21:21 AM Interpretation: Performing Lab: Notes/Report: [facility] , Sodium 142 136-145 mmol/L Potassium 4.0 3.5-5.1 mmol/L Chloride 105 98-107 mmol/L Carbon Dioxide 27.9 21.0-32.0 mmol/L Anion Gap 13.1 Glucose 93 74-106 mg/dL Blood Urea Nitrogen 15.0 7.0-18.0 mg/dL Creatinine 1.08 0.55-1.02 mg/dL Estimated GFR ( Cheyanne >60 >=60 mL/min/1.73m 2 Estimated GFR (Non- Baudilio 50 >=60 mL/min/1.73m 2 BUN Creatinine Ratio 13.9 Calcium 8.6 8.5-10.1 mg/dL Bilirubin Total 0.3 0.2-1.0 mg/dL Aspartate Amino Transferase 22 15-37 U/L Alanine Aminotransferase 22 14-59 U/L Alkaline Phosphatase 65 46-116 U/L Total Protein 6.6 6.4-8.2 g/dL Albumin Level 3.3 3.4-5.0 g/dL Globulin 3.3 Albumin Globulin Ratio 1.0 Performing Lab: see note ML - [facility] LB CBC AUTO DIFF Reviewed date:06/06/2024 09:21:21 AM Interpretation: Performing Lab: Notes/Report: [facility] , White Blood Count 8.4 4.0-11.0 10 [...] 3/uL Performing Lab: see note ML - [facility] LB CT head/brain wo con Reviewed date:03/19/2024 08:22:34 AM Interpretation: Performing Lab: Notes/Report: Source Facility: [place] [address] CT Scan Report Signed Patient: MARY VICK MR#: [id number] : 1955 Acct:[id number] Age/Sex: 68 / F ADM Date: 03/18/24 Loc: ER Attending Dr: Ordering Physician: Catherine Bales Date of Service: 03/18/24 Procedure(s): CT head/brain wo con Accession Number(s): [id number] cc: NATIVIDAD SILVA [place] [address] Patient Name: MARY VICK MRN: [facility]:[id number] date: 1955 Sex: F Assigned Patient Location: ED.MAIN Current Patient Location: ED.MAIN Accession/Order Number: [id number] Exam Date: 03/18/2024 18:35 Report Date: 03/18/2024 [...] M.D. Signed By: 03/18/241922 DD/ 19 TD/TT: Tractor Engine Assembler: [place] [address] CT Scan Report Signed Patient: CHRISTINA VICK MR#: [id number] : 1955 Acct:[id number] Age/Sex: 68 / F ADM Date: 03/18/24 Loc: ER Attending Dr: Ordering Physician: Catherine Bales Date of Service: 03/18/24 Procedure(s): CT head/brain wo con Accession Number(s): [id number] cc: NATIVIDAD SILVA [place] [address] Patient Name: MARY VICK MRN: [id number]:[id number] date: 1955 Sex: F Assigned Patient Location: ED.MAIN Current Patient Loca tion: ED.MAIN Accession/Order [facility] er: [id number] Exam Date: 18:35 Report Date: 03/18/2024 19:20 [...] M.D. Signed By: 03/18/241922 DD/ 19 TD/TT: Tractor Engine Assembler: JANINA tomosynthesis screening B I Reviewed date:02/22/2024 09:14:22 PM Interpretation: Performing Lab: Notes/Report: Source Facility: [place] [address] Mammography Report Signed Patient: MARY VICK MR#: [id number] : 1955 Acct:[id number] Age/Sex: 68 / F ADM Date: 02/21/24 Loc: MAMMO Attending Dr: Luisito Townsend M.D. Ordering Physician: Luisito Townsend M.D. Results: Date of Service: 02/21/24 Follow Up: Procedure(s): MM tomosynthesis screening BI Accession Number(s): [id number] cc: NATIVIDAD SILVA ; Luisito Townsend M.D. Patient Name: MARY VICK MR#: [id number] : 1955 Exam Date: 02/21/2024 Ordering Doctor: DR Luisito Townsend . 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 LOCATION: [facility] BREAST COMPOSITION: There are scattered areas of [...] Dictated By: Robert Condon M.D. Signed By: 02/22/24758 DD/ 8 TD/TT: Tractor Engine Assembler: [place] [address] Mammography Report Signed Patient: CHRISTINA VICK MR#: [id number] : 1955 Acct:[id number] Age/Sex: 68 / F ADM Date: 02/21/24 Loc: MAMMO Attending Dr: Ga Townsend M.D. Ordering Physician: Luisito Townsend M.D. Results: Date of Service: 06/15 Follow Up: Procedure(s): MM tomosynthesis screening BI Accession Number(s): [id number] cc: NATIVIDAD SILVA ; Luisito Townsend M.D. Patient Name: MARY VICK MR#: [id number] : 1955 Exam Date: 02/21/2024 Ordering Doctor: DR Luisito Townsend . RADIOLOGY REPORT PROCEDURE: MM TOMOSYNTHESIS [...] cancer at age 41. LOCATION: [facility] BREAST COMPOSITION: There are scattered areas [...] By: Justin Condon M.D. Signed By: 02/22/24 075 DD/ 8 TD/TT: Tractor Engine Assembler: TSH Reviewed date:01/27/2024 03:58:27 PM Interpretation: Performing Lab: Notes/Report: [facility] , Thyroid Stimulating Hormone 1.550 0.358-3.740 uIU/mL Performing Lab: see note ML - [facility] LB T4 Reviewed date:01/27/2024 03:58:27 PM Interpretation: Performing Lab: Notes/Report: [facility] , T4 Thyroxine 8.30 4.80-13.90 ug/dL Performing Lab: see note ML - [facility] LB FREE T3 Reviewed date:01/27/2024 03:58:27 PM Interpretation: Performing Lab: Notes/Report: [facility] , Free T3 1.30 2.18-3.98 pg/mL Performing Lab: see note ML - [facility] LB CBC AUTO DIFF Reviewed date:01/27/2024 03:58:27 PM Interpretation: Performing Lab: Notes/Report: [facility] , White Blood Count 6.6 4.0-11.0 10 [...] 3/uL Performing Lab: see note ML - [facility] LB XR chest 1V Reviewed date:06/18/2024 12:30:48 PM Interpretation: Performing Lab: Notes/Report: Source Facility: [place] [address] [place] [address] XRay Report Signed Patient: MARY VICK MR#: [id number] : 1955 Acct:[id number] Age/Sex: 68 / F ADM Date: 06/17/24 Loc: ER Attending Dr: Ordering Physician: Catherine Bales Date of Service: 06/17/24 Procedure(s): XR chest 1V Accession Number(s): [id number] cc: NATIVIDAD SILVA ; Catherine Bales [place] [id number] Patient Name: MARY VICK MRN: [id number] date: 1955 Sex: F Assigned Patient Location: ER Current Patient Location: ER Accession/Order Number: [id number] Exam Date: 06/17/2024 11:15 Report Date: 06/17/2024 [...] Signed By: 06/17/24 1321 DD/ 1319 TD/TT: Tractor Engine Assembler: [place] [address] XRay Report Signed Patient: CHRISTINA VICK MR#: [id number] : 1955 Acct:[id number] Age/Sex: 68 / F ADM Date: 06/17/24 Loc: ER Attending Dr: Ordering Physician: Catherine Bales Date of Service: 06/17/24 Procedure(s): XR chest 1V Accession Number(s): [id number] cc: NATIVIDAD SILVA ; Catherine Bales [place] [address] Patient Name: MARY VICK MRN: [id number] date: 1955 Sex: F Assigned Patient Location: ER Current Patient Loca tion: ER Accession/Order Numb er: [id number] Exam Date: 06/17/2024 11:15 Report Date: 06/17/2024 [...] Signed By: 06/17/24 1321 DD/ 1319 TD/TT: Tractor Engine Assembler: ECG 12 lead Reviewed date:06/18/2024 12:30:48 PM Interpretation: Performing Lab: Notes/Report: Source Facility: [place] [address] [place] [address] Electrocardiograph Report Signed Patient: MARY VICK MR#: [id number] : 1955 Acct:[id number] Age/Sex: 68 / F ADM Date: 06/17/24 Loc: ER Attending Dr: Ordering Physician: Catherine Bales Date of Service: 06/17/24 Procedure(s): ECG 12 lead Accession Number(s): [id number] cc: [facility] Test Date: 2024-06-17 Pat Name: MARY VICK Department: Room: - Gender: Female Pipe Inspector: : 1955 Requested By: NATIVIDAD SILVA Order Number: [id number] Reading MD: LUISITO TOWNSEND Measurements Intervals Hughson Rate: 59 P: 30 MN: 164 QRS: 38 QRSD: 88 T: 53 QT: 444 QTc: 442 Interpretive Statements 1100 Sinus rhythm 9110 normal ECG Compared to ECG 06/11/2024 13:40:46 Sinus bradycardia no longer present Electronically Signed On 06-18-2024 9:24:34 EST by LUISITO TOWNSEND Dictated By: Luisito Townsend M.D. Signed By: 06/18/24924 DD/ 105 TD/TT: Tractor Engine Assembler: [place] [address] Electrocardiograph Report Signed Patient: CHRISTINA VICK MR#: [id number] : 1955 Acct:[id number] Age/Sex: 68 / F ADM Date: 06/17/24 Loc: ER Attending Dr: Ordering Physician: Catherine Bales Date of Service: 06/17/24 Procedure(s): ECG 12 lead Accession Number(s): [id number] cc: [facility] Test Date: 2024-06-17 Pat Name: MARY TOLLIVER Department: 45 Room: - Gender: Female Pipe Inspector: : 1955 Requ ested By: NATIVIDAD SILVA Order Number: [id number] Reading MD: LUISITO TOWNSEND Measurements Intervals Hughson Rate: 59 P: 30 MN: 164 QRS: 38 QRSD: 88 T: 53 QT: 444 QTc: 442 Interpretive Statements 1100 Sinus rhythm 9110 normal ECG Compared to ECG 06/11/2024 13:40:46 Sinus bradycardia no longer present Electronically Ashlyn d On 06-18-2024 9:24:34 EST by LUISITO TOWNSEND Dictated By: Alma Rosa Townsend M.D. Signed By: 06/18/24924 DD/ 1059 TD/TT: Tractor Engine Assembler: Troponin I High Sensitivity Reviewed date:06/18/2024 12:30:48 PM Interpretation: Performing Lab: Notes/Report: [facility] , Troponin I High Sensitivity 5.3 4.0-51.3 pg/mL CUT-OFF POINTS HAVE BEEN ESTABLISHED BASED ON THE FOURTH UNIVERSAL DEFINITION OF MYOCARDIAL INFARCTION. THE UPPER REFERENCE LIMIT (URL) OF TROPONIN, DEFINED THE 99TH PERCENTILE OF cTnI DISTRIBUTION IN A REFERENCE POPULATION, HAS BEEN CONFIRMED THE DECISION THRESHOLD FOR IN DIAGNOSIS. 99TH PERCENTILE = 51.4 PG/ML NOTE: HIGH-SENSITIVITY TROPONIN ASSAY IS NOT INTENDED TO BE USED IN ISOLATION BUT SHOULD BE INTERPRETED IN CONJUNCTION WITH OTHER DIAGNOSTIC AND CLINICAL INFORMATION. Performing Lab: see note ML - [facility] LB PROF 14(COMP METB) Reviewed date:06/18/2024 12:30:48 PM Interpretation: Performing Lab: Notes/Report: [facility] , Sodium 138 136-145 mmol/L Potassium 4.4 3.5-5.1 mmol/L Chloride 103 98-107 mmol/L Carbon Dioxide 30.0 21.0-32.0 mmol/L Anion Gap 9.4 Glucose 90 74-106 mg/dL Blood Urea Nitrogen 23.0 7.0-18.0 mg/dL Creatinine 0.94 0.55-1.02 mg/dL Estimated GFR ( [place] >60 >=60 mL/min/1.73m 2 Estimated GFR (Non- Baudilio 59 >=60 mL/min/1.73m 2 BUN Creatinine Ratio 24.5 Calcium 8.4 8.5-10.1 mg/dL Bilirubin Total 0.3 0.2-1.0 mg/dL Aspartate Amino Transferase 18 15-37 U/L Alanine Aminotransferase 16 14-59 U/L Alkaline Phosphatase 106 46-116 U/L Total Protein 6.8 6.4-8.2 g/dL Albumin Level 3.0 3.4-5.0 g/dL Globulin 3.8 Albumin Globulin Ratio 0.8 Performing Lab: see note ML - [facility] LB D-DIMER Reviewed date:06/18/2024 12:30:48 PM Interpretation: Performing Lab: Notes/Report: [facility] , D Dimer 3.27 <=0.59 mg/L FEU [...] hospitalization. Performing Lab: see note ML - [facility] LB CBC AUTO DIFF Reviewed date:06/18/2024 12:30:48 PM Interpretation: Performing Lab: Notes/Report: [facility] , White Blood Count 9.0 4.0-11.0 10 [...] 3/uL Performing Lab: see note ML - [facility] LB XR hip LUANA Reviewed date:05/03/2024 09:47:50 AM Interpretation: Performing Lab: Notes/Report: Source Facility: [facility]-[address] [place] [address] [place] [address] XRay Report Signed Patient: MARY VICK MR#: [id number] : 1955 Acct:[id number] Age/Sex: 68 / F ADM Date: 05/03/24 Loc: RAD Attending Dr: Varun Monique M.D. Ordering Physician: Varun Monique M.D. Date of Service: 05/03/24 Procedure(s): XR hip LUANA Accession Number(s): [id number] cc: NATIVIDAD SILVA ; Varun Monique M.D. [place] [address] Patient Name: MARY VICK MRN: [id number] date: 1955 Sex: F Assigned Patient Location: [facility] Current Patient Location: [facility] Accession/Order Number: [id number] Exam Date: 05/03/2024 09:00 Report Date: 05/03/2024 [...] M.D. Signed By: 05/03/24922 DD/ 0 TD/TT: Tractor Engine Assembler: [place] [address] XRay Report Signed Patient: CHRISTINA VICK MR#: [id number] : 1955 Acct:[id number] Age/Sex: 68 / F ADM Date: 05/03/24 Loc: RAD Attending Dr: Varun Monique M.D. Ordering Physician: Varun Monique M.D. Date of Service: 05/03/24 Procedure(s): XR hip LUANA Accession Number(s): [id number] cc: NATIVIDAD SILVA ; Varun Monique M.D. [facility] [place] [id number] Patient Name: MARY VICK MRN: [id number] date: 1955 Sex: F Assigned Patient Location: RAD Current Patient Loca tion: RAD Accession/Order Numb er: [id number] Exam Date: 09:00 Report Date: 05/03/2024 09:21 [...] M.D. Signed By: 05/03/24922 DD/ 0 TD/TT: Tractor Engine Assembler: LIPID PROFILE Reviewed date:05/03/2024 11:25:54 AM Interpretation: Performing Lab: Notes/Report: [facility] , Triglycerides 74 <=150 mg/dL Cholesterol 206 [...] RISK Performing Lab: see note ML - [facility] LB XR knee LUANA 4V Reviewed date:02/20/2024 09:47:36 AM Interpretation: Performing Lab: Notes/Report: Source Facility: [place] [address] XRay Report Signed Patient: MARY VICK MR#: [id number] : 1955 Acct:[id number] Age/Sex: 68 / F ADM Date: 02/16/24 Loc: RAD Attending Dr: Non-Staff Physician Liudmila Ordering Physician: PhysicianNonPeteStaff Liudmila Date of Service: 02/16/24 Procedure(s): XR knee LUANA 4V Accession Number(s): [id number] cc: NATIVIDAD SILVA ; PhysicianSaminaStaff Liudmila [place] [id number] Patient Name: MARY VICK MRN: [id number] date: 1955 Sex: F Assigned Patient Location: [facility] Current Patient Location: [facility] Accession/Order Number: [id number] Exam Date: 02/16/2024 15:40 Report Date: 02/18/2024 [...] M.D. Signed By: 02/18/24453 DD/ 1 TD/TT: [employer]ractor Engine Assembler: [place] [address] XRay Report Signed Patient: CHRISTINA VICK MR#: [id number] : 1955 Acct:[id number] Age/Sex: 68 / F ADM Date: 02/16/24 Loc: RAD Attending Dr: Sebastián loya Physician Liudmila Ordering Physician: PhysicianSaminaStaff Liudmila Date of Service: 02/16/24 Procedure(s): XR kne e LUANA 4V Accession Number(s): [id number] cc: NATIVIDAD SILVA ; Physician,Non-Staff Liudmila [place] [id number] Patient Name: MARY VICK MRN: [id number] date: 1955 Sex: F Assigned Patient Location: [facility] Current Patient Loca tion: SURGOUT Accession/Order Numb er: [id number] Exam Date: 02/16/2024 15:40 Report Date: 02/18/2024 [...] M.D. Signed By: 02/18/24453 DD/ 1 TD/TT: [employer]ractor [employer]: Reason For Referral Diagnosis 1 Screening for colon cancer (Z12.11) Referral Organization [facility] Referring Provider First Name José Referring Provider Last Name Kristian Referring Provider [facility] araceli Referred Provider Ash Parson Referred Provider Specialty General Surg kamala Referral Priority Routine Reason COPD Diagnosis 1 COPD exacerbation (J 44.1) Referral Organization [facility] Referring Provider First Name Nativdiad Referring Provider Last Name Karine Referring Provider [facility] araceli Referred Provider Ronni Ac Referred Provider Specialty Pulmonary Di seases Referral Priority Routine Medications Medication SIG (Take, Route, Frequency, Duration) Notes Start Date End Date Status Amitriptyline HCl 50 mg TAKE 1 TABLET BY MOUTH AT BEDTIME for 30 Active Baclofen 5 MG 1 -2 tablet [...] day prn for 14 days 02/29/2024 Active Abilify 30 MG 1 tablet Orally Once a day for 90 days Active oxyCODONE-Acetaminoph en 5-325 MG Oral for [...] days call for next dose 05/01/2024 Active predniSONE 20 MG 2 tablet Orally Once a day for 5 days 11/30/2024 Active Immunizations Vaccine Route Administration Date Status Comme nts Flu, Fluzone High-Dose (9066 2) 65 yrs+ (7820-6531) Unknown 02/12/2022 Administered Pneumococcal (Pneumovax 23) Unknown [...] Problem Status W/U Status Risk Notes Problem 15871565 Age-related osteoporosis without current pathological fracture (M81.0) Active confirmed Problem Atherosclerosis of aorta (62601830) Atherosclerosis of aorta (I70.0) Active confirmed Problem 90914422 Diaphragmatic hernia without obstruction or gangrene (K44.9) Active confirmed Problem Palpitations (93732342) Palpitations (R00.2) Active confirmed Problem Chest pain (50669955) Chest pain (R07.9) Active confirmed Problem Gastroesophageal reflux disease (229751280) GERD (gastroesophageal reflux disease) (K21.9) Active confirmed Problem Hypothyroid (07209061) Hypothyroid (E03.9) Active confirmed Problem Insomnia (012355749) Insomnia (G47.00) Active confirmed Problem Migraine (92407074) Migraine (G43.909) Active c onfirmed Problem 454325073 COPD exacerbatio n (J44.1) Active confirmed Problem Osteoporosis (46114069) Osteoporosis (M81.0) Active confirmed Problem Acquired hypothyroidism (915153493) Acquired hypothyroidism (E03.9) Active confirmed Problem Dyspnea (022967856) Exertional shortness of breath (R06.02) Active confirmed Problem Rib fracture (21683378) Rib fracture (S22.39XA) Active confirmed Problem Leukocytosis (020333317) Leukocytosis (D72.829) Active confirmed Problem Iron deficiency anemia (39206421) Anemia, iron deficiency (D50.9) Active confirmed Problem Memory deficit (677576064) Memory deficit (R41.3) Active confirmed Problem Excessive caffeine intake (720606321879265) Excessive caffeine intake (Z91.89) Active confirmed Problem Essential hypertension (91132803) BP (high blood pressure) (I10) Active confirmed Problem Mixed anxiety and depressive disorder (070907234) Anxiety and depression (F41.8) Active confirmed Problem Mild pulmonary hypertension (913904470) Mild pulmonary hypertension (I27.20) Active confirmed Problem Obese class II (finding) (085717955651700) Class 2 obesity (E66.9) Active confirmed Problem 997210014 Abnormal finding s on diagnostic imaging of other specified body structures (R93.89) Active confirmed Problem Disease caused by Severe acute respiratory syndrome coronavirus 2 (disorder) (264181356) COVID (U07.1) Active confirmed Problem Supraventricular tachycardia (disorder) (4701178) Supraventricular tachycardia, unspecified (I47.10) Active confirmed Vital Signs Heart Rate 74 /min 11/30/2024 Oximetry 96 % 11/30/2024 Blood pressure diastolic 80 mm Hg 11/30/2024 Height 62 in 11/30/2024 Blood pressure systolic 130 mm Hg 11/30/2024 Weight 193.4 lbs 11/30/2024 BMI 35.37 kg/m2 11/30/2024 Procedures Procedure Date Ordered Date Performed Result Body Sit e PFT Complete 11/30/2024 N/A Six minute walk 11/30/2024 N/A Encounters Encounter Location Date Provider Diagnosis [facility] [address] [place] [address] 01/17/2024 Natividad Silva [facility] [address] [place] [address] 01/27/2024 Natividad Silva [facility] [address] [place] [address] 02/06/2024 Natividad Silva Hypothyroid E03.9 [facility] [address] [place] [address] 02/08/2024 José Townsend Screening for breast cancer Z12.31 [facility] [address] [place] [address] 02/22/2024 José Townsend [facility] [address] [place] [address] 03/09/2024 Natividad Silva Migraine G43.909 [facility] [address] [place] [address] 03/19/2024 Natividad Silva Migraine G43.909 [facility] [address] [place] [address] 05/03/2024 Natividad Silva [facility] [address] [place] [address] 05/21/2024 Natividad Silva Migraine G43.909 [facility] [address] [place] [address] 06/07/2024 José Moyay [facility] [address] [place] [address] 08/10/2024 Natividad Silva [facility] [address] [place] [address] 08/15/2024 Natividad Silva [facility] [address] [facility] [place] [address] 08/27/2024 Natividad Silva Migraine G43.909 [facility] [address] [facility] [place] [place] [address] 08/27/2024 Natividad Silva [facility] [address] [facility] [place] [place] [address] 09/05/2024 Natividad Silva [facility] [address] [facility] [place] [place] [address] 09/27/2024 Natividad Silva [facility] [address] [facility] [place] [place] [address] 10/02/2024 Natividad Silva Abnormal findings on diagnostic imaging of other specified body structures R93.89 [facility] [address] [facility] [place] [address] 10/03/2024 Natividad Silva [facility] [address] [facility] [place] [address] 10/26/2024 Natividad Silva Compression fracture of body of thoracic vertebra S22.000A and Osteoporosis M81.0 [facility] [address] [facility] [place] [address] 11/05/2024 Natividad Silva [facility] [address] [facility] [place] [address] 11/26/2024 Natividad Silva [facility] [address] [facility] [place] [address] 11/30/2024 Natividad Silva SOB (shortness of breath) R06.02 [facility] [address] [facility] [place] [address] 02/08/2024 José Townsend Encounter for Medica re annual wellness exam Z00.00 [facility] [address] [facility] [address] 10/26/2024 Natividad Silva Osteoporosis M81.0 ; Hypothyroid E03.9 and Compression fracture of body of thoracic vertebra S22.000[address] [place] [address] 11/30/2024 Natividadena Silva COPD exacerbation J4 4.[address] [place] [address] 01/12/2024 Natividad Silva Anemia, iron deficie ncy D50.9 ; Hypothyroid E03.9 and Overweight E66.[address] [address] 05/01/2024 Natividad Karine Atherosclerosis of a manda I70.0 ; Class 2 obesity E66.9 and Mild pulmonary hypertension I27.[address] [address] 10/09/2024 Natividad Karine Migraine G43.[address] [address] 04/09/2024 Natividad Karine COPD exacerbation J4 4.[address] [place] [address] 02/29/2024 Natividad Karine Migraine G43.[address] [address] 03/16/2024 Natividad Karine Migraine G43.[address] [address] 03/19/2024 Natividad Karine Migraine G43.909 Assessments Encounter Date Diagnosis (ICD Code) Assessment Notes Treatment Notes Treatment Clinical Notes Section Notes 01/12/2024 Anemia, iron deficiency (ICD-10 - D50.9) 01/12/2024 Hypothyroid (ICD-10 - E03.9) 02/08/2024 Encounter for Medicare annual wellness exam [...] (ICD-10 - G43.909) Toradol 60 norflex 60 10/26/2024 Osteoporosis (ICD-10 - M81.0) check on continuing infusions at 10/26/2024 Hypothyroid (ICD-10 - E03.9) 11/30/2024 COPD exacerbation (ICD-10 - J44.1) continue trelegy, albuterol walk test monitor pulse ox, to ER if needed 02/06/2024 Hypothyroid (ICD-10 - E03.9) 02/08/2024 Screening for breast cancer (ICD-10 - Z12.31) 03/09/2024 Migraine (ICD-10 - G43.909) 03/19/2024 Migraine (ICD-10 - G43.909) 05/21/2024 Migraine (ICD-10 - G43.909) 08/27/2024 Migraine (ICD-10 - G43.909) 10/02/2024 Abnormal findings on diagnostic imaging of other specified body structures (ICD-10 - R93.89) 10/26/2024 Compression fracture of body of thoracic vertebra (ICD-10 - S22.000A) 10/26/2024 Osteoporosis (ICD-10 - M81.0) 11/30/2024 SOB (shortness of breath) (ICD-10 - R06.02) 10/26/2024 Compression fracture of body of thoracic vertebra (ICD-10 - S22.000A) took percocet didnt help toradol injection helped yesterday fu pain man, dr Hernandez 05/01/2024 Mild pulmonary hypertension (ICD-10 - I27.20) see pulmonary? defers for now sees cardiology 01/12/2024 Overweight (ICD-10 - E66.3) 05/01/2024 Other SLUMS exam negative for cognitive impairment tested normal Plan Of Treatment Pending Test Test Name Order Date LIPID PANEL (CHOL/TRIG/HDL/LDL) 05/01/20 24 Six minute walk 11/30/2024 T3 FREE, T4 FREE and TSH 10/31/2023 T3 FREE, T4 FREE and TSH 02/06/2024 PFT Complete 11/30/2024 COVID 19 SWAB ANTIGEN TEST 08/23/2022 MAMM SCREEN BILAT DANIS 3D GLOBAL* 2023 CBC AUTO DIFF 01/03/2023 CBC AUTO DIFF 01/12/2024 IRON 01/03/2023 XR DEXA BONE DENSITY 10/26/2024 THYROID PANEL (T4/TSH/FREE T3) 4 XR chest 2V 11/30/2024 Insurance Providers Payer Name Payer Address Payer Phone Subscriber Number Group Number Insured Name Patient Relationship to Insured Coverage Start Date Coverage End Date [employer] ADV PLAN [address] [place] [address] [id number] Mary Vick Self - patient is the insured 4 Medications Administered Medication Instructions Date of Administration Dosage Notes Ketorolac Tromethamine 02/04/2023 60 mg 60 Ketorolac Tromethamine 05/19/2023 60 mg 60 mg Ketorolac Tromethamine 09/13/2023 60 mg 60 Ketorolac Tromethamine 02/29/2024 60 mg Ketorolac Tromethamine 03/16/2024 60 mg Ketorolac Tromethamine 03/19/2024 60 mg Ketorolac Tromethamine 10/09/2024 60 mg Ketorolac Tromethamine 10/26/2024 60 mg Norflex 05/19/2023 60 mg 60 [...] Thyroid disorder E07.9 Surgical History Surgery Date(Month/Year) HYSTERECTOMY TOTAL Jaw Surgery APPENDECTOMY Cataract removal and eye lift Ablation lumbar spine Colonoscopy- Dr Parson 04/2024 Hospitalization History Reason Date(Month/Year) migraine 01/13
--- OUTSIDE RECORDS SUMMARY | 2024-12-05 08:18 | XMS_ITS | CCD ---
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 Ann-Mariemich Mohan Urea nitrogen [Mass/Vol] 28.0 mg/dL Critically high 7.0-18.0 [facility] Comment on above: Performed By: #### Robert BARRIOS, CMP ####[facility] [address] [address]Dr. Ann-Mariemich Mohan Urea nitrogen/Creatinine [Mass ratio] 23.1 mg/mg Normal [facility] Comment on above: Performed By: #### H DENIS, CMP ####[facility] [address] [address]Dr. Deborah Marques TROPONIN, HIGH SENSITIVITYon 04-07-2022 HSTROP 5.9 pg/mL Normal 4.0-51.3 [facility] Comment on above: Result Comment: CUT- OFF POINTS HAVE BEEN ESTABLISHED BASED ON THE FOURTH UNIVERSAL DEFINITIONS OF MYOCARDIAL INFARCTION. THE UPPER REFERENCE LIMIT (URL) OF TROPONIN, DEFINED THE 99TH PERCENTILE OF cTnI DISTRIBUTION IN A REFERENCE POPULATION, HAS BEEN CONFIRMED THE DECISION THRESHOLD FOR ID DIAGNOSIS. Performed By: #### H DENIS, CMP ####[facility] [address] [address]Dr. Deborah Mohan XR CHEST 1 Von 04-07-2022 [...] ANDERSON ALMANZAR Date: 2022-04-07 03:11 Normal [facility] HEMOGLOBINon 03-12-2022 Hemoglobin (Bld) [Mass/Vol] 9.2 g/dL Critically low 12.0-16.0 [facility] Comment on above: Performed By: #### A NARF #### [facility] [address] [place] [address] Dr. Deborah Mohan ANTI NEUTROPHIL CYTOPLASMIC AB (ANCA) PRon 03-09-2022 Anti-MPO Antibodies <0.2 Normal 0.0-0.9 [facility] Comment on above: Result Comment: Perf ormed at: BN Performed By: #### B MEASUREMENT SUPERINTENDENT, HSTROPN, CMP #### [facility] [address] [place] [address] Dr. Deborah Mohan Anti-PR3 Antibodies <0.2 Normal 0.0-0.9 [facility] Comment on above: Result Comment: Perf ormed at: BN Performed By: #### B MEASUREMENT SUPERINTENDENT, HSTROPN, CMP #### [facility] [address] [address] [address] Deborah Mohan Atypical pANCA 1:160 Critically high Neg:<1:20 [facility] Comment on above: Result Comment: The atypical pANCA pattern has been observed in a significant percentage of patients with ulcerative colitis, primary sclerosing cholangitis and autoimmune hepatitis. Performed at: CB Performed By: #### B MEASUREMENT SUPERINTENDENT, HSTROPN, CMP #### [facility] [address] [place] [address] Dr. Deborah Mohan Cytoplasmic (C-ANCA) <1:20 Normal Neg:<1:20 [facility] Comment on above: Result Comment: Perf ormed at: CB Performed By: #### B PHILLIP JONES CMP #### [facility] [address] [address] [address] Deborah Mohan Perinuclear (P-ANCA) <1:20 Normal Neg:<1:20 [facility] Comment on above: Result Comment: [...] By: #### B PHILLIP JONES CMP #### [facility] [address] [place] [address] Dr. Deborah Mohan ANTISCLERODERMA ABon 022 Antiscleroderma-70 Antibodies <0.2 Normal 0.0-0.9 [facility] Comment on above: Performed By: #### A NARF #### [facility] [address] [place] [address] CHEST WO CONon [...] incidental findings, as described above. Normal [facility] CYCLIC CITRULLINATED PEPTIDE AB (CCP)on 03-09-2022 CCP Antibodies IgG/IgA 6 units Normal 0-19 [facility] Comment on above: Result Comment: Nega tive <20 Weak positive 20 - 39 Moderate positive 40 - 59 Strong positive >59 Performed By: #### B MEASUREMENT SUPERINTENDENT, HSTROPN, CMP #### [facility] [address] [address] [address] Deborah Mohan IGG SUBCLASSES (1-4) AND TOT Kade 03-09-2022 IgG, Subclass 1 448 mg/dL Normal 248-810 [facility] Comment on above: Performed By: #### B MEASUREMENT SUPERINTENDENT, HSTROPN, CMP #### [facility] [address] [address] [address] Deborah Mohan IgG, Subclass 2 253 mg/dL Normal 130-555 [facility] Comment on above: Performed By: #### B MEASUREMENT SUPERINTENDENT, HSTROPN, CMP #### [facility] [address] [address] [address] Deborah Mohan IgG, Subclass 3 95 mg/dL Normal 15-102 [facility] Comment on above: Performed By: #### B MEASUREMENT SUPERINTENDENT, HSTROPN, CMP #### [facility] [address] [address] [address] Deborah Mohan IgG, Subclass 4 10 mg/dL Normal 2-96 [facility] Comment on above: Performed By: #### B MEASUREMENT SUPERINTENDENT, HSTROPN, CMP #### [facility] [address] [address] [address] Deborah Mohan Immunoglobulin G, Qn, Serum 658 mg/dL Normal 586-1602 [facility] Comment on above: Performed By: #### B MEASUREMENT SUPERINTENDENT, HSTROPN, CMP #### [facility] [address] [address] [address] Deborah Mohan IMMUNOGLOBULIN E, TOTALon Immunoglobulin E, Total 5 IU/mL Critically low 6-495 [facility] Comment on above: Performed By: #### I GETOT ####[facility] [address] [place], [place] [address]Dr. Deborah Mohan MICHELL EIA W/REFLEX 5 BIOMARKER Son 03-08-2022 MICHELL Direct Negative Normal Negative [facility] Comment on above: Performed By: #### A NARF #### [facility] [address] [address] [address] Deborah Mohan ANGIOTENSION-CONVERTING ENZY ME (RFANCESCO)on 03-08-2022 FRANCESCO 32 U/L Normal 14-82 [facility] Comment on above: Performed By: #### A NGIOC ####[facility] [address] [address]DrAnkur Mohan ANTIGLOMERULAR BASEMENT MEMB ROMMEL ABSon 03-08-2022 Anti-GBM Antibodies <0.2 Normal 0.0-0.9 [facility] Comment on above: Performed By: #### A GBM #### [facility] [address] [address] [address] Deborah Mohan IMMUNOGLOBULIN IGA QUANTITIA VEon 03-06-2022 Immunoglobulin A, Qn, Serum 229 mg/dL Normal 87-352 [facility] Comment on above: Performed By: #### A NARF #### [facility] [address] [address] [address] Deborah Mohan IMMUNOGLOBULIN IGM QUANTITAT IVEon 03-06-2022 Immunoglobulin M, Qn, Serum 83 mg/dL Normal 26-217 [facility] Comment on above: Performed By: #### B MEASUREMENT SUPERINTENDENT, HSTROPN, CMP #### [facility] [address] [address] [address] Deborah Mohan RHEUMATOID FACTORon 03-06-20 22 RA Latex Turbid. 10.9 IU/mL Normal <14.0 [facility] Comment on above: Performed By: #### R F ####[facility] [address] [address]Dr. Deborah Mohan CREATININEon 03-05-2022 Creatinine [Mass/Vol] 1.38 mg/dL Critically high 0.55-1.02 [facility] Comment on above: Performed By: #### C MELVINA ####[facility] [address] [address]DrAnkur Mohan EGFR-AF ZAMBIAN 46 mL/min/1.73m2 Critically low >=60 [facility] Comment on above: Performed By: #### C MELVINA ####[facility] [address] [place], [place] [address]Dr. Deborah Mohan EGFR-NON AF ZAMBIAN 38 mL/min/1.73m2 Critically low >=60 [facility] Comment on above: Performed By: #### C MELVINA ####[facility] [address] [place], [place] [address]Dr. Deborah Mohan SED RATE WESTERGRENon 2021 SED RATE 92 mm/hr Critically high <=30 [facility] Comment on above: Performed By: #### B MEASUREMENT SUPERINTENDENT, HSTROPN, CMP #### [facility] [address] [place], [place] [address] Dr. Deborah Mohan XR DEXA BONE DENSITYon [...] by: ROBERT CONDON Date: 2022-03-05 16:56 Normal [facility] XR CHEST 1 Von 03-01-2022 XR [...] by: ROBERT NOVAK Date: 2022-02-28 22:27 Normal [facility] XR KNEE LUANA 4V or >on [...] RAUDEL ESTRADA Date: 2022-01-29 11:09 Normal [facility] CBC AUTO DIFFon 11-29-2021 BASO # 0.1 103/ul Normal 0.0-0.1 [facility] Comment on above: Performed By: #### C BC ####[facility] [address] [address]Dr. Deborah Mohan Basophils/100 WBC (Bld) 0.8 % Normal 0.2-2.0 [facility] Comment on above: Performed By: #### C BC ####[facility] [address] [address]Dr. Deborah Mohan EO # 0.3 103/ul Normal 0.0-0.7 [facility] Comment on above: Performed By: #### C BC ####[facility] [address] [address]Dr. Deborah Mohan Eosinophils/100 WBC (Bld) 2.2 % Normal 0.9-7.0 [facility] Comment on above: Performed By: #### C BC ####[facility] [address] [address]Dr. Deborah Mohan Erythrocyte distribution width (RBC) [Ratio] 21.2 % Critically high 11.0-15.0 [facility] Comment on above: Performed By: #### C BC ####[facility] [address] [address]Dr. Deborah Mohan Hematocrit (Bld) [Volume fraction] 33.2 % Critically low 36.0-48.0 [facility] Comment on above: Performed By: #### C BC ####[facility] [address] [address]Dr. Deborah Mohan Hemoglobin (Bld) [Mass/Vol] 10.3 g/dL Critically low 12.0-16.0 [facility] Comment on above: Performed By: #### C BC ####[facility] [address] [address]Dr. Deborah Mohan IG # 0.11 10e3/ul Critically high 0.00-0.03 [facility] Comment on above: Performed By: #### C BC ####[facility] [address] [address]Dr. Deborah Mohan IG % 0.9 % Critically high 0.0-0.5 [facility] Comment on above: Performed By: #### C BC ####[facility] [address] [place], [place] [address]Dr. Deborah Mohan LYMPH # 2.2 103/ul Normal 1.2-3.8 [facility] Comment on above: Performed By: #### C BC ####[facility] [address] [place], [place] [address]Dr. Deborah Mohan Lymphocytes/100 WBC (Bld) 18.5 % Critically low 20.5-60.0 [facility] Comment on above: Performed By: #### C BC ####[facility] [address] [place], [place] [address]Dr. Deborah Mohan MANUAL DIFF REQ NO Normal [facility] Comment on above: Performed By: #### C BC ####[facility] [address] [place], [place] [address]Dr. Deborah Mohan MCH (RBC) [Entitic mass] 26.3 pg Critically low 26.7-34.0 [facility] Comment on above: Performed By: #### C BC ####[facility] [address] [address]Dr. Deborah Mohan MCHC (RBC) [Mass/Vol] 31.0 g/dL Normal 29.9-35.2 [facility] Comment on above: Performed By: #### C BC ####[facility] [address] [address]Dr. Deborah Mohan MCV (RBC) [Entitic vol] 84.9 fL Normal 81.0-99.0 [facility] Comment on above: Performed By: #### C BC ####[facility] [address] [address]Dr. Deborah Mohan MONO # 0.6 103/ul Normal 0.3-0.8 [facility] Comment on above: Performed By: #### C BC ####[facility] [address] [address]Dr. Deborah Mohan Monocytes/100 WBC (Bld) 5.3 % Normal 1.7-12.0 [facility] Comment on above: Performed By: #### C BC ####[facility] [address] [place], [place] [address]Dr. Deborah Mohan NEUT # 8.4 103/ul Critically high 1.4-6.5 [facility] Comment on above: Performed By: #### C BC ####[facility] [address] [place], [place] [address]Dr. Deborah Mohan Neutrophils/100 WBC (Bld) 72.3 % Normal 43.0-75.0 [facility] Comment on above: Performed By: #### C BC ####[facility] [address] [place], [place] [address]Dr. Deborah Mohan Platelet mean volume (Bld) [Entitic vol] 10.1 fL Normal 9.5-13.5 [facility] Comment on above: Performed By: #### C BC ####[facility] [address] [place], [place] [address]Dr. Deborah Mohan PLT 351 103/ul Normal 150-450 [facility] Comment on above: Performed By: #### C BC ####[facility] [address] [address]Dr. Ann-Mariemich Mohan RBC 3.91 106/ul Critically low 4.20-5.40 [facility] Comment on above: Performed By: #### C BC ####[facility] [address] [place], [place] [address]KqAnkur Mohan WBC 11.6 103/ul Critically high 4.0-11.0 [facility] Comment on above: Performed By: #### C BC ####[facility] [address] [place], [place] [address]Bo. Deborah Mohan CTA CHEST WO W CONon [...] 2. Bilateral peripheral fibrosis and/or scarring with yfao-vn-gmhdhoix groundglass densities. The groundglass densities are slightly decreased compared to the prior scan. 3. Old calcified granulomas in the chest and abdomen. 4. Large hiatal hernia. 5. Moderate diffuse osteopenia. Electronically authenticated by: BERNARDO DENNY Date: 2021-11-29 20:31 Normal [facility] D-DIMERon 11-29-2021 D-DIMER 1.14 mg/L FEU Critically high <=0.59 [facility] Comment on above: Performed By: #### A NARF #### [facility] [address] [place] [address] Dr. Deborah Mohan D-DIMER COMMENTS SEE BELOW Normal [facility] Comment on above: Result Comment: Incr eases [...] and generalized hospitalization. Performed By: #### A LEONORF #### [facility] [address] [place] [address] Dr. Deborah Mohan PROF CHEM 8 (BAS METB)on Anion gap [Moles/Vol] 11.7 mmol/L Normal [facility] Comment on above: Performed By: #### B KYLEE HSTROPN #### [facility] [address] [address] [address] Deborah Mohan Calcium [Mass/Vol] 8.7 mg/dL Normal 8.5-10.1 [facility] Comment on above: Performed By: #### B HOLLY PICHARDOTROPN #### [facility] [address] [place] [address] Dr. Deborah Mohan Chloride [Moles/Vol] 107 mmol/L Normal 98-107 [facility] Comment on above: Performed By: #### B HOLLY PICHARDOTROPN #### [facility] [address] [address] [address] Deborah Mohan CO2 [Moles/Vol] 25.3 mmol/L Normal 21.0-32.0 [facility] Comment on above: Performed By: #### B KYLEE, HSTROPN #### [facility] [address] [place] [address] Dr. Deborah Mohan Creatinine [Mass/Vol] 0.98 mg/dL Normal 0.55-1.02 [facility] Comment on above: Performed By: #### B KYLEE, HSTROPN #### [facility] [address] [address] [address] Deborah Mohan EGFR-AF ZAMBIAN >60 Normal >=60 [facility] Comment on above: Performed By: #### B KYLEE, HSTROPN #### [facility] [address] [place] [address] Dr. Deborah Mohan EGFR-NON AF ZAMBIAN 56 mL/min/1.73m2 Critically low >=60 [facility] Comment on above: Performed By: #### B KYLEE, HSTROPN #### [facility] [address] [address] [address] Deborah Mohan Glucose [Mass/Vol] 105 mg/dL Normal 74-106 [facility] Comment on above: Performed By: #### B KYLEE, HSTROPN #### [facility] [address] [place] [address] Dr. Deborah Mohan Potassium [Moles/Vol] 4.0 mmol/L Normal 3.5-5.1 [facility] Comment on above: Performed By: #### B KYLEE, HSTROPN #### [facility] [address] [address] [address] Deborah Mohan Sodium [Moles/Vol] 140 mmol/L Normal 136-145 [facility] Comment on above: Performed By: #### B KYLEE, HSTROPN #### [facility] [address] [place] [address] Dr. Deborah Mohan Urea nitrogen [Mass/Vol] 21.0 mg/dL Critically high 7.0-18.0 [facility] Comment on above: Performed By: #### B KYLEE, HSTROPN #### [facility] [address] [place], [place] [address] Dr. Deborah Mohan Urea nitrogen/Creatinine [Mass ratio] 21.4 mg/mg Normal [facility] Comment on above: Performed By: #### B KYLEE, HSTROPN #### [facility] [address] [place], [place] [address] Dr. Deborah Mohan TROPONIN, HIGH SENSITIVITYon 11-29-2021 HSTROP 4.5 pg/mL Normal 4.0-51.3 [facility] Comment on above: Result Comment: CUT- OFF POINTS HAVE BEEN ESTABLISHED BASED ON THE FOURTH UNIVERSAL DEFINITIONS OF MYOCARDIAL INFARCTION. THE UPPER REFERENCE LIMIT (URL) OF TROPONIN, DEFINED THE 99TH PERCENTILE OF cTnI DISTRIBUTION IN A REFERENCE POPULATION, HAS BEEN CONFIRMED THE DECISION THRESHOLD FOR ID DIAGNOSIS. Performed By: #### H STROPN ####[facility] [address] [place], [place] [address]XrDr. Deborah Mohan HSTROP 6.0 pg/mL Normal 4.0-51.3 [facility] Comment on above: Result Comment: CUT- OFF POINTS HAVE BEEN ESTABLISHED BASED ON THE FOURTH UNIVERSAL DEFINITIONS OF MYOCARDIAL INFARCTION. THE UPPER REFERENCE LIMIT (URL) OF TROPONIN, DEFINED THE 99TH PERCENTILE OF cTnI DISTRIBUTION IN A REFERENCE POPULATION, HAS BEEN CONFIRMED THE DECISION THRESHOLD FOR ID DIAGNOSIS. Performed By: #### B KYLEE, HSTROPN #### [facility] [address] [place], [place] [address] Dr. Deborah Mohan XR CHEST 1 Von [...] by: KANDY BARRY Date: 2021-11-29 19:20 Normal [facility] XR LSPINE W_OBLS AND FLEX_EX [...] by: RAUDEL ESTRADA Date: 2021-11-12 07:56 Normal [facility] CALCIUMon 11-11-2021 Calcium [Mass/Vol] 9.0 mg/dL Normal 8.5-10.1 [facility] Comment on above: Performed By: #### A NARF #### [facility] [address] [address] [address] Deborah Mohan CREATININEon 11-11-2021 Creatinine [Mass/Vol] 1.47 mg/dL Critically high 0.55-1.02 [facility] Comment on above: Performed By: #### A NARF #### [facility] [address] [address] [address] Deborah Mohan EGFR-AF ZAMBIAN 43 mL/min/1.73m2 Critically low >=60 [facility] Comment on above: Performed By: #### A NARF #### [facility] [address] [address] [address] Deborah Mohan EGFR-NON AF ZAMBIAN 35 mL/min/1.73m2 Critically low >=60 [facility] Comment on above: Performed By: #### A NARF #### [facility] [address] [address] [address] Deborah Mohan Vital Signs Date Time Vital Sign Value Performing Clinician James johns 03-20-2024 14:57-0400 Blood Pressure Location Anderson PULLIAM [facility] [place] [facility] [place] 03-20-2024 14:57-0400 Diastolic blood pressure 82 mm[Hg] Anderson PULLIAM [facility] [place] [facility] [place] 03-20-2024 14:57-0400 Heart rate 70 /min Anderson VILLANUEVAL [facility] 03-20-2024 14:57-0400 Respiratory rate 16 /min Anderson VILLANUEVAL [facility] [place] [facility] [place] 03-20-2024 14:57-0400 Systolic blood pressure 126 mm[Hg] Anderson VILLANUEVAL [facility] Encounters Encounter Date Encounter Type Care Provider Facility Start: 10-22-2024 End: 10-22-2024 ambulatory Gabriella Woodruff MD Facility:[facility] Start: 04-25-2024 End: 04-25-2024 ambulatory Anderson PULLIAM Facility:CD:[id number] Start: 03-20-2024 End: 03-20-2024 ambulatory Luisito Townsend Facility:[facility] Start: 03-20-2024 End: 03-20-2024 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 procedure Anderson VILLANUEVAEsperanza [facility] Start: 02-10-2024 ambulatory Luisito Hoy Facility:[facility] [place] Start: 11-28-2023 End: 11-28-2023 ambulatory [facility] Start: 10-18-2023 End: 10-18-2023 ambulatory [facility] Start: 10-05-2022 End: 10-06-2022 ambulatory NARENDRANATH LAKSHMIPATHY . Facility: Start: 09-17-2022 End: 09-17-[address] INGRID ESPINAL Facility:[facility] Start: 08-26-2022 ambulatory NARENDRANATH LAKSHMIPATHY . Facility: Start: 08-24-2022 End: 08-24-2022 ambulatory POLO RICARDO Facility:[facility] Start: 07-08-2022 End: 07-09-2022 ambulatory JOEL RAMON . Facility:[facility] Start: 07-06-2022 End: 07-07-2022 ambulatory POLO RICARDO Facility:[facility] Start: 06-24-2022 End: 06-25-2022 ambulatory JOEL RAMON . Facility:[facility] Start: 05-21-2022 ambulatory POLO RICARDO Facility: [facility] Start: 05-08-2022 End: 05-08-2022 ambulatory Clarita Nena Facility:[facility] Start: 05-08-2022 End: 05-08-2022 ambulatory CLINICIAN ONCOLOGY-C Clarita Nena Work Phone: [facility] Work Phone: Start: 05-08-2022 End: 05-08-2022 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 procedure CLINICIAN ONCOLOGY-C Clarita Leigh Work Phone: [facility] Start: 04-08-2022 End: 04-09-2022 ambulatory JOEL RAMON . Facility:[facility] Start: 04-07-2022 End: 04-07-2022 ambulatory POLOLUCIO RIGGINSMER Facility:[facility] Start: 03-16-2022 End: 03-16-2022 ambulatory POLO [...] . Facility:[facility] Start: 11-05-2021 End: 11-06-2021 ambulatory JEOL RAMON . Facility: Start: 04-01-2018 End: 04-01-2018 Emergency department patient visit BRANDON RUSSELL [facility] Start: 12-11-2017 End: 12-11-2017 Emergency department patient visit ROBERT HURLEY Facility:[facility] Procedures Date Procedure Procedure Detail Performing Clinician Start: 05-08-2022 Plain X-ray of left wrist CLINICIAN ONCOLOGY-C Clarita Blakeault Work Phone: Start: 05-08-2022 X-ray of left ankle CLINICIAN ONCOLOGY -C Clarita Nena Work Phone: Start: 04-01-2018 IP CONSULT TO ORAL SURGERY BRANDON RUSSELL Start: 03-14-2013 Colonoscopy Anderson AGOSTO Appendectomy Anderson VILLANUEVAL Blepharoplasty Anderson PULLIAM Bone structure of ma ndible (body structure) Anderson VILLANUEVAL Dilation and curettage [place] PULLIAM Extraction of cataract [place] VILLANUEVAL Ligation of fallopian tube Kyree VILLANUEVAEsperanza Total abdominal hysterectomy with bilateral salpingo-oophorectomy Anderson PULLIAM Payers Date Payer Category Payer Unknown 2022 Medicare [id number] 2022 Self-pay 1959 Unknown [id number] 1955 Unknown [id number] 2.16.84 0.1.758557.3.579.2.593 1953 Unknown [id number] 2.16.84 0.1.413885.3.579.2.593 1953 Unknown [id number] 2.16.84 0.1.904002.3.579.2.593 1953 Unknown [id number] 2.16.84 0.1.957900.3.579.2.593 1953 Unknown [id number] 2.16.84 0.1.016000.3.579.2.593 1953 Unknown [id number] 2.16.84 0.1.257836.3.579.2.593 1953 Unknown [id number] 2.16.84 0.1.457488.3.579.2.593 1953 Unknown [id number] 2.16.84 0.1.510509.3.579.2.593 1953 Unknown [id number] 2.16.84 0.1.356603.3.579.2.593 1953 Unknown [id number] 2.16.84 0.1.930897.3.579.2.593 1953 Unknown [id number] 2.16.84 0.1.788894.3.579.2.593 1953 Unknown [id number] 2.16.84 0.1.202786.3.579.2.593 1953 Unknown [id number] 2.16.84 0.1.619292.3.579.2.593 1953 Unknown [id number] 2.16.84 0.1.454433.3.579.2.593 1953 Unknown [id number] 2.16.84 0.1.837684.3.579.2.593 1953 Unknown [id number] 2.16.84 0.1.788976.3.579.2.593 1953 Unknown [id number] 2.16.84 0.1.888894.3.579.2.593 1953 Unknown [id number] 2.16.84 0.1.387209.3.579.2.593 1953 Unknown [id number] 2.16.84 0.1.591885.3.579.2.593 1953 Unknown [id number] 2.16.84 0.1.369142.3.579.2.593 1953 Unknown [id number] 2.16.84 0.1.738351.3.579.2.593 1953 Unknown [id number] 2.16.84 0.1.633413.3.579.2.593 1953 Unknown [id number] 2.16.8 40.1.747939.3.579.2.727 1955 Unknown [id number] 2.16.8 40.1.897337.3.579.2.727 1955 Unknown [id number] 2.16. 840.1.882537.3.579.2.196 Medicare [id number] Unknown MMO [id number] Unknown Jesus BC/BS [id number] Unknown [id number] 2.16.8 40.1.800074.3.579.2.531 Social History Date Type Detail Facility [facility] Work Phone: Start: 1955 Sex Assigned At Female [facility] Start: 03-20-2024 Tobacco smoking status Ex-smoker (fi nding) [facility] Tobacco smoking status Never [facility] Sex Assigned At Female [facility] Functional Status Date Assessment Result Facility 03-20-2024 Functional Status N/A [facility] Clinical Notes 11-05-2021 to 03-20-2024 [...] 1 tab(s), Or (more content not included)... [facility] Comment on above: Result Comment: Elec tronically Signed By: SHASHA GRANT, Anderson Quick\Date and Time Signed: 03/20/24 16:53 EDT 11-28-2023 Note [facility] Cardiology Clinic Note Chief Complaint: [...] mouth in the morning., Disp: , Rfl: isnbgsjqtt-vydnglwmiteek-agpn 50-325-40 mg tablet, Take 1 tablet by [...] sinus rhythm Echocar (more content not included)... [facility] 10-18-2023 Note [facility] Cardiology Clinic Note Chief Complaint: New patient here to establish care. Ref from Dr. Townsend for abnormal EKG. She also wore 7 day Holter monitor, and says she did not work while wearing this. She works at [employer] and says it's very fast paced. States she drinks a 5 Hour Energy shot almost every day. She was admitted to [facility] for migraine recently and was found to have abnormal EKG. Recently has noticed a twinge of chest pain. C/o DAI, palpitations, and lightheadedness. HPI: Mary Vick is a 68 y.o. female With a history of hypertension and hypothyroidism who presents due to an abnormal Holter monitor She was admitted to [facility] for migraine; a monitor revealed both [...] Plan: Routine labs (more content not included)... [facility] 07-08-2022 Note CONSULTATION PROCEDURE DATE: 07/08/2022 [...] in the clinic in three months. [facility] 06-24-2022 Note CONSULTATION CONSULTATION DATE: 06/24/2022 [...] at a time, as she works at [employer]. Current medications include Percocet 5/325 daily, diclofenac [...] pending approval for her knee injections. [facility] 04-08-2022 Note CONSULTATION CONSULTATION DATE: 04/08/2022 [...] three months' time unless otherwise indicated. [facility] 03-09-2022 Note CONSULTATION CONSULTATION DATE: 03/09/2022 [...] to proceed. CC: Polo Silva CNP [facility] 01-28-2022 Note CONSULTATION CONSULTATION DATE: 01/30/2022 [...] and re-evaluation of her bursa injection. [facility] 01-28-2022 Note CONSULTATION PROCEDURE DATE: 01/30/2022 [...] be followed up in the clinic. [facility] 11-12-2021 Note PROCEDURE: XR HIPS B [...] by: RAUDEL ESTRADA Date: 2021-11-12 07:50 [facility] 11-05-2021 Note CONSULTATION PROCEDURE DATE:11/05/2021 PREOPERATIVE [...] followed up in the office. [facility] Signed and Approved by: JOEL RAMON . 11/18/2021 16:24:00 [facility] 11-05-2021 Note CONSULTATION CONSULTATION DATE: 11/05/2021 [...] time, was working half a day at [employer] and since then has increased to full [...] months' time unless otherwise indicated. [facility] Signed and Approved by: JOEL RAMON . 11/18/2021 16:24:00 [facility] Evaluation + Plan note No data available for this section [facility] Evaluation note No assessment inform ation available [facility] Work Phone: Hospital Discharge instructions No data available for this section [facility] Progress note No data available for this section [facility] Summary Purpose Family History No Family History Records FoundNo Family History Records FoundNo Family History Records FoundNo Family History Records FoundNo Family History Records Found No data available for this section No Family History Records FoundNo Family History Records Found Advance Directives No Advanced Directives Records FoundNo Advanced Directives Records FoundNo Advanced Directives Records FoundNo Advanced Directives Records FoundNo Advanced Directives Records FoundNo Advanced Directives Records FoundNo Advanced Directives Records Found Additional Source Comments INFORMATION SOURCE (unrecogn ized section and content) DATE CREATED AUTHOR 12/21/[address] [facility] DATE CREATED AUTHOR AUTHOR'S ORGANIZ ATION 05/01/2018 [facility] DATE CREATED AUTHOR AUTHOR'S ORGANIZ ATION 05/17/2022 [facility] DATE CREATED AUTHOR AUTHOR'S ORGANIZ ATION 10/06/2022 [facility] DATE CREATED AUTHOR AUTHOR'S ORGANIZ ATION 11/28/2023 [facility] DATE CREATED AUTHOR AUTHOR'S ORGANIZ ATION 05/03/2024 [facility] DATE CREATED AUTHOR AUTHOR'S ORGANIZ ATION 10/29/2024 [facility] Care Teams (unrecognized sec tion [...] BE BASED ON THE PRIMARY CLINICAL RECORDS. [facility]. provides no warranty or guarantee of the accuracy or completeness of information in this document.
== END 2024-12-05 08:05 | disposition home or self-care (01) ==
LOC: RAD 08:04
PROVIDERS: PCP Nurse Practitioner Family; Visit Provider Nurse Practitioner Family
DX: S22.000A Wedge compression fracture of unspecified thoracic vertebra, initial encounter for closed fracture (principal); M81.0 Age-related osteoporosis without current pathological fracture; M85.80 Other specified disorders of bone density and structure, unspecified site
CPT/HCPCS: 77080

== ENCOUNTER 2024-12-18 13:26 | Outpatient (OUT) | payer MEDICARE, SELFPAY ==
--- OUTSIDE RECORDS SUMMARY | 2024-12-05 11:42 | XMS_ITS ---
Author Organization The [facility] in [place] Address [address] [place] [address] Care Team Providers Care Industrial Relations Specialist Name Role Phone Natividad Milton Primary Care Provider [phone] REASON FOR VISIT copd Medications Medication SIG (Take, Route, Frequency, Duration) Notes Start Date End Date Status Azithromycin 250 MG as directed Orally daily for 5 days take 2 tablets po on first day than 1 tablet po days 2-5 12/06/2024 Active predniSONE 20 MG 2 tablet Orally Once a day for 5 days 11/30/2024 Active Encounters Encounter Location Date Provider Diagnosis [address] [address] 12/05/2024 Natividad Milton COPD exacerbation J44.1 Assessments Encounter Date Diagnosis (ICD Code) Assessment Notes Treatment Notes Treatment Clinical Notes Section Notes 12/05/2024 COPD exacerbation (ICD-10 - J44.1) Plan Of Treatment Medication Medication Name Sig Start Date Stop Date Notes Azithromycin 250 MG as directed Orally daily for 5 days 12/06/2024 take 2 tablets po on first day than 1 tablet po days 2-5 predniSONE 20 MG 2 tablet Orally Once a day for 5 days 11/30/2024 Progress Notes * Mary TOMPKINS MDOB:1955 (69 yo F)Acc No.[id number]:12/05/2024 Patient: Massimo Mary PRAKASH :1955 A ge:69 Y S ex:Female Address:[address] [place] [address] [place] [address] * Refills Refill predniSONE Tablet, 20 MG, Orally, 10 Tablet, 2 tablet, Once a day, 5 days, Refills=0 Start Azithromycin Tablet, 250 MG, Orally, 6, as directed, daily, 5 days, Refills=0 Subjective: * Chief Complaints: * C opd * Medical History: * Surgical History: * Hospitalization/Major Diagno stic Procedure: * Medications: Objective: * Vitals: * Physical Examination: Assessment: * Assessment: 1. C OPD exacerbation - J44.1 Plan: * Treatment: 2. O thers Start Azithromycin Tablet, 250 MG, as directed, Orally, daily, 5 days, 6, Refills 0, Notes to Pharmacist: take 2 tablets po on first day than 1 tablet po days 2-5. * Procedure Codes: * true * Date: Generated for Nelda valdez/Michelle/Donnaitting on: 0 12/18/2024 01:29 PM EDT
--- OUTSIDE RECORDS SUMMARY | 2024-12-11 12:16 | XMS_ITS ---
Author Organization The [facility] in [place] Address [address] [place] [address] Care Team Providers Care Brooch Maker Novelty Name Role Phone Karine Natividad Primary Care Provider [phone] Reason For Referral Diagnosis 1 COPD (chronic obstru ctive pulmonary disease) (J44.9) Referral Organization [facility] Referring Provider First Name Natividad Referring Provider Last Name Karine Referring Provider Speciality Family Med araceli Referred Provider Ronni Ac Referred Provider Specialty Pulmonary Di nicole Referral Priority Routine REASON FOR VISIT PFT results Medications Medication SIG (Take, Route, Frequency, Duration) Notes Start Date End Date Status Albuterol Sulfate (2.5 MG/3ML) 0.083% 3 mL as needed Inhalation every 6 hrs for 14 days 12/12/2024 Active Problems Problem Type SNOMED Code ICD Code Onset Dates Problem Status W/U Status Risk Notes Problem COPD (chronic obstructive pulmonary disease) (J44.9) Active confirmed Encounters Encounter Location Date Provider Diagnosis [facility] [address] [place] [address] 12/11/2024 Natividad Milton COPD (chronic obstructive pulmonary disease) J44.9 Assessments Encounter Date Diagnosis (ICD Code) Assessment Notes Treatment Notes Treatment Clinical Notes Section Notes 12/11/2024 COPD (chronic obstructive pulmonary disease) (ICD-10 - J44.9) Plan Of Treatment Medication Medication Name Sig Start Date Stop Date Notes Albuterol Sulfate (2.5 MG/3ML) 0.083% 3 mL as needed Inhalation every 6 hrs for 14 days 12/12/2024 Referrals Referral Date Details 12/11/2024 12/11/2024Ronni track Progress Notes * Mary TOMPKINS MDOB:1955 (69 yo F)Acc No.[id number]:12/11/2024 Patient: Mary DURANT :1955 A ge:69 Y S ex:Female Address:[address] [place] [address] * Refills Start Albuterol Sulfate Nebulization Solution, (2.5 MG/3ML) 0.083%, Inhalation, 168 ML, 3 mL as needed, every 6 hrs, 14 days, Refills=1 Subjective: * Chief Complaints: * P FT results * Medical History: * Surgical History: * Hospitalization/Major Diagno stic Procedure: * Medications: Objective: * Vitals: * Physical Examination: Assessment: * Assessment: 1. C OPD (chronic obstructive pulmonary disease) - J44.9 (Primary) Plan: * Treatment: * Procedure Codes: * true * Date: Generated for Nelda valdez/Michelle/eTransmitting on: 0 12/18/2024 01:30 PM EDT Consultation Request Notes Referral Date Referring Provider Referred Provider Not es 12/11/2024 Natividad Milton LeAnne
--- OUTSIDE RECORDS SUMMARY | 2024-12-14 05:20 | XMS_ITS ---
Author Organization [facility] Address [address] [place] [address] Care Team Providers Care Entry Level Lab Technician Name Role Phone Natividad Milton Primary Care Provider UnavailRhett Live Unavailable [phone] REASON FOR VISIT THORACIC/LUMBAR MRI REVIEW Encounters Encounter Location Date Provider Diagnosis [facility] [address] [place] [address] 12/14/2024 Rhett Hernandez Plan Of Treatment No Information Progress Notes * MELANIE TOMPKINS MDOB:1955 (69 yo F)Acc No.[id number]:12/14/2024 Patient: Massimo PRAKASHMELANIE Provider: Dav Norton MD, PhD :1955 A ge:69 Y S ex:Female Date:12/14/2024 Address:[address] [place] [address] [place] , [id number] Pcp:Natividad Milton Subjective: * Chief Complaints: * 1 . THORACIC/LUMBAR MRI REVIEW. * Medical History: Objective: * Vitals: Assessment: Plan: * Treatment: Forms: * Images: * Electronic signature of Nereida Hernandez MD, PHD on 12/18/2024 at 01:28 PM EDT Sign off status: Pending * Provider: Dav Norton MD, PhD Date: 0 12/14/2024 Generated for Nelda valdez/Michelle/Lorna on: 0 12/18/2024 01:28 PM EDT
--- OUTSIDE RECORDS SUMMARY | 2024-12-14 10:03 | XMS_ITS ---
Author Organization The [facility] [place] Address [address] [place] [address] Care Team Providers Care Tumbling Barrel Painter Name Role Phone Natividad Milton Primary Care Provider REASON FOR VISIT dexa Encounters Encounter Location Date Provider Diagnosis [facility] [address] [place] [address] 12/14/2024 Natividad Milton Plan Of Treatment No Information Progress Notes * Mary TOMPKINS MDOB:1955 (69 yo F)Acc No.[id number]:12/14/2024 Patient: Massimo PRAKASHMary :1955 A ge:69 Y S ex:Female Address:[address] [place] [address] [place] [address] * true * Date: Generated for Printi ng/Faxing/eTransmitting on: 0 12/18/2024 01:30 PM EDT
--- OUTSIDE RECORDS SUMMARY | 2024-12-18 13:29 | XMS_ITS | Clinical Summary ---
Author Organization [employer] Address [id number] [address] [place] [address] Care Team Providers Care Tractor Driver Name Role Phone Bull Forrest DO Primary Care Provider [phone] Allergies Active Allergy Reactions Criticality Noted Date [...] 04/01/2028 04/01/2018 Medical Devices Implanted Type Area Clean Room Operator Device Identifier Shelf Expiration Date Model / Serial / Lot Lens Iol Ultrasert 23.0d - [id number] - [id number] Implanted:Qty: 1 on 03/27/2020 by Deirdre Denton MD at [facility] Lens Right: Eye [employer] 06/04/2022 AU00T0 23.0 / [id number] / NA Lens Iol Ultrasert 23.0d - [id number] - [id number] Implanted:Qty: 1 on 04/08/2020 by Deirdre Denton MD at [facility] Lens Left: Eye [employer] 06/04/2022 AU00T0 23.0 / [id number] / NA Insurance [employer] Care Teams Tractor Driver Relationship Specialty Start Date End Date Bull Forrest DO [address] [place] [address] PCP - General Family Medicine 03/27/20
--- NOTE | 2024-12-18 13:30 | CA_ITS ---
Patient Name: MELANIE TOMPKINS MR#: [id number] : 1955 Exam Date: 12/18/2024 Ordering Doctor: DR MARVIN PELAEZ M.D. ECHOCARDIOGRAM REPORT PROCEDURE: CA ECHO DOPPLER COMPLETE INDICATIONS: Mitral and aortic valve insufficiency COMPARISON: None. DESCRIPTION: COMPLETE ECHOCARDIOGRAM Real-time transthoracic echocardiography with 2D, M-mode, spectral and color flow Doppler performed. QUALITY: Technical quality was good. LEFT VENTRICLE: Normal chamber size. Mild concentric left ventricular hypertrophy. Global left ventricular systolic function is normal. LV EF: Estimated left ventricular ejection fraction is 60%. DIASTOLIC: Grade I diastolic dysfunction. ATRIAL SEPTUM: LEFT ATRIUM: Mild dilatation. RIGHT ATRIUM: Mild dilatation. RIGHT VENTRICLE: Mild dilatation. Normal right ventricular systolic function. TRICUSPID VALVE: Normal mobility and thickness. No stenosis with trivial regurgitation. Mild pulmonary hypertension. RVSP 35 mmHg MITRAL VALVE: Normal mobility and thickness. No evidence of mitral valve stenosis. Mild mitral annular calcification. Trivial mitral regurgitation. AORTIC VALVE: Normal trileaflet appearance. No visible sclerosis. Normal leaflet mobility. No evidence of aortic valve stenosis. Mild aortic regurgitation. AORTIC ROOT: Normal diameter and appearance, measuring 3.4 cm. The ascending aorta is normal in size measuring 3.4 cm. PULMONIC VALVE: Normal thickness and mobility. No stenosis. Trivial regurgitation. PERICARDIUM: No evidence of pericardial effusion. Fat pad is noted anterior to the right ventricle. IVC: Collapses with inspiration. Normal size. PLEURA: CONCLUSION: 1. Mild concentric left ventricular hypertrophy with normal systolic function. Estimated LVEF is 60%. 2. The right ventricle is mildly dilated and exhibits normal systolic function. 3. Mild diastolic dysfunction. 4. Mild aortic valve regurgitation. 5. Trivial mitral regurgitation. 6. Mildly elevated right-sided pressures. Adult Echocardiography Procedure Report Left Ventricle LVEDD (3.7 - 5.6 cm): 5.15 cm LVESD (2.2 - 4.0 cm): 2.96 cm LVIVS thickness (0.6 - 1.2 cm): 1.02 cm LVPW thickness (0.5 - 1.0 cm): 1.17 cm e': 0.08 m/s E - e': 11.03 LVOT Max Gradient: 6.10 mm[Hg] LVOT Area (cm2): 1.24 m/s Peak Velocity (LVOT): 1.24 m/s Mean Velocity (LVOT): 0.91 m/s LVOT Diameter 2.05 cm Left Ventricular Ejection Fraction: 60 % Left Atrium LA Volume Index (2D A2C): 38.90 ml/m2 Left Atrium Systolic Dimension: 5.13 cm Mitral Valve MV E to A Ratio: 0.77 Mitral Valve A-Wave Peak Velocity: 1.12 m/s Mitral Valve E-Wave Peak Velocity: 0.86 m/s Right Ventricle RV Internal Diastolic Dimension: 4.29 cm Aorta AO Root Diam: 3.41 cm Ascending Ao Diam: 3.40 cm Aortic Valve AoV Area (Peak Scar): 2.39 cm2, 2.39 cm2 AoV Area (VTI): 2.55 cm2, 2.55 cm2 Deceleration Loup: 1.62 m/s2 Pressure Half-Time: 714.03 ms Peak Velocity(Antegrade Flow): 1.70 m/s Peak Gradient(Antegrade Flow): 11.60 mm[Hg] Mean Velocity(Antegrade Flow): 1.06 m/s Mean Gradient(Antegrade Flow): 5.45 mm[Hg] Velocity Time Integral: 28.39 cm Tricuspid Valve Peak Velocity (Regurgitant Flow): 2.68 m/s, 2.83 m/s Pulmonic Valve Mean Gradient: 3.67 mm[Hg], 2.30 mm[Hg] Mean Velocity: 0.88 m/s, 0.70 m/s Peak Velocity: 1.25 m/s Peak Gradient: 8.33 mm[Hg], 4.40 mm[Hg] Right Atrium Right Atrium Systolic Pressure: 40.51 ml, 40.51 ml Dictated by: Ottoniel Oquendo M.D. on 12/18/2024 at 19:27 Approved by: Ottoniel Oquendo M.D. on 12/18/2024 at 19:33
--- OUTSIDE RECORDS SUMMARY | 2024-12-18 13:30 | XMS_ITS | Clinical Summary ---
Author Organization [facility] Address [address], [address] [place] [address] Care Team Providers Care Activities Manager Name Role Phone Bull Forrest MD Primary Care Provider [phone] Allergies No known active allergies Medications amLODIPine [...] of Treatment Not on file Insurance [place] [address] [place] [address] MEDICARE Care Teams Activities Manager Relationship Specialty Start Date End Date Bull Forrest MD [address] [place] [id number] PCP - General Family Medicine 04/01/18
--- OUTSIDE RECORDS SUMMARY | 2024-12-18 13:30 | XMS_ITS | Patient Health Record ---
Author Organization [facility] Address [address] [place] [address] Care Team Providers Care Client Success Specialist Name Role Phone Natividad Milton Primary Care Provider [facility] Feroz Raymundolisa Unavailable [phone] Richard Askew Unavailable [phone] Willi Torres Unavailable [phone] Shyanne Berg Unavailable Allergies Allergen (clinical drug ingredient) Drug/Non Drug Allergy documented on EMR Reaction Allergy Type Onset Date Status sumatriptan Imitrex Unknown Drug Allergy Activ e Results Component Value Reference Range Notes SCC- WRIST 3 VIEW LEFT [id number] Reviewed date:06/27/2024 09:42:44 AM Interpretation: Performing Lab: Notes/Report: SCC- WRIST 3 VIEW LEFT [id number] Reviewed date:08/09/2024 01:53:02 PM Interpretation: Performing Lab: Notes/Report: Reason For Referral Reason APPROVED for Hosp. C onsult 06/07 APPROVED for ORIF done 06/11 Diagnosis 1 Other intraarticular fracture of lower end of left radius, initial encounter for closed fracture (S52.572A) Referral Organization [facility] [facility] Referring Provider First Name Willi Referring Provider Last Name Brian Referring Provider Speciality Orthopedic Surgery Referred Organization [facility] Referred Address [address] [place],[address], General Notes Pau Tucker 11:56:12 AM > [...] encounter for closed fracture (S52.572A) Referral Organization [facility] Referring Provider First Name Willi Referring Provider Last Name [place] Referring Provider Speciality Orthopedic Surgery Referred Organization [facility] Referred Address [facility], [place],[address], General Notes Kierra Brice 06/20 09:09:27 AM >Need work slip for 06/11/2024 sx please. [facility] called asking for. Thanks so much, Pam Licona 06/20/2024 09:30:15 AM > IN UNDER CHART DOCS, Kierra Brice 06/20/2024 10:16:35 AM >noted. faxed [email or web address] Referral Priority Urgent Reason addressed,APPROVED f or casting done 06/25 Diagnosis 1 Other intraarticular fracture of lower end of left radius, initial encounter for closed fracture (S52.524M) Referral Organization [facility] Referring Provider First Name Willi Referring Provider Last Name [place] Referring Provider Speciality Orthopedic Surgery [facility] Address [address],[place], [place],[address],[place] General Notes Pau Tucker 09:05:49 AM > [...] Priority Routine Reason APPROVED FOR P.T. AT [place], OFF WORK, W[facility] (PATIENT WILL GET IN [place] [facility]) AD [employer] APPROVED for dme from 07/16 Diagnosis 1 Other intraarticular fracture of lower end of left radius, subsequent encounter for closed fracture with routine healing (S52.572D) Referral Organization [facility] Referring Provider First Name Willi Referring Provider Last Name Brian Referring Provider Speciality Orthopedic Surgery Referred Organization [facility] Referred Address [address] [place] [address],[address],[place], [place],[address], General Notes Pau Tucker 08:01:11 AM > Can you please add dx for displaced ulnar styloid fx, dictated from [facility], Jenny 07/17/2024 10:34:00 AM >done, Pau Tucker 07/17/2024 11:19:39 AM > faxed note and c9 for PT, Pau Tucker 07/19/2024 10:44:12 AM > rcvd C9 Auth PT LT arm 12 visits 07/17 to 09/07, see attachment. Where at in [place] would she go for PT?, Pam Licona 07/19/2024 11:15:20 AM >[facility] 08/06/2024 02:30:15 PM >, Miranda Galloway 08/13/2024 03:17:21 PM >C9 for dme [id number] given on 07-16-24. Patient went from [place] to [place] office for this. Assuming SI needs c9?, [...] routine healing, subsequent encounter (S52.612D) Referral Organization [facility] Referring Provider First Name Willi Referring Provider Last Name Torres Referring Provider Speciality Orthopedic Surgery [facility] Address [address],[place], [place],[address],[place] General Notes Pau Tucker 02:24:34 PM > [...] PM > [facility]. dx S52.612 was allowed on 08/22. see attachment Referral Priority Routine Reason AD 09/10 note Diagnosis 1 Closed displaced fra cture of styloid process of left ulna with routine healing, subsequent encounter (S52.612D) Referral Organization [facility] Referring Provider First Name Willi Referring Provider Last Name Torres Referring Provider Speciality Orthopedic Surgery [facility] Ref[facility] Address [address],[place], [place],[address], General Notes Pau Tucker 03:42:17 PM > faxed note and updated [employer] Referral Priority Routine Reason APPROVED............ .....................NOT SCHEDULED....................................[facility] MRI THORACIC AND LUMBAR TO BE DONE AT [place] Diagnosis 1 Compression fracture of T10 vertebra with routine healing, subsequent encounter (S22.070D) Diagnosis 2 Lumbar back pain (M5 4.50) Referral Organization [facility] Referring Provider First Name Ferozlisa Referring Provider Last Name [facility] Referring Provider Speciality Orthopedic Surgery Referred Organization [facility] Referred Address [place], [place], Procedure 1 MRI Thoracic Spine w /o Dye (13383) Procedure 2 MRI Lumbar Spine w/o Dye (49437) General Notes Marva Townsend 2024 12:43:02 PM >, Salma Wright 11/02/2024 12:45:30 PM > WAITING ON TODAY'S OFFICE NOTE, Salma Wright 11/06/2024 09:24:12 AM > MIRELAEM ACTIVE AND EFFECTIVE 05/23/24 PER AIM. AUTHORIZATION REQUEST SUBMITTED VIA [facility], PENDING AUTHORIZATION # [id number] WITH ANTICIPATED DETERMINATION DATE OF 11/16/24 PER AIM. CLINICALS FAXED TO [facility] @ [phone], Salma Wright 11/07/2024 07:57:33 AM > CASE PENDING PER AIM.Kyle Kayla 11/09/2024 08:57:51 AM > STILL PENDING PER AIM.Kyle Kayla 11/12/2024 08:19:14 AM > STILL PENDING WITH AIM.Kyle Kayla 11/13/2024 07:13:43 AM > PENDING, Salma Wright 11/14/2024 09:42:34 AM > PENDING WITH AIM STILL.Kyle Kayla 11/16/2024 07:49:35 AM > AUTHORIZATION # [id number] APPROVED AND VALID 11/06/24-02/03/25 PER AIM. SCANNED INTO CHART AND FAXED TO Kristian Dawn 11/16/2024 08:15:51 AM >faxed Referral Priority Routine Diagnosis 1 Closed displaced fra cture of styloid process of left ulna with routine healing, subsequent encounter (S52.612D) Referral Organization [facility] Referring Provider First Name Rhett Referring Provider Last Name [facility] Referring Provider Speciality Orthopedic Surgery Referred Organization [facility] Referred Address [address] [place], [place],[address], Referral Priority Routine Medications Medication SIG (Take, [...] Problem Status W/U Status Risk Notes Problem [id number] Wedge compressio n fracture of T11-T12 vertebra, initial encounter for closed fracture (S22.080A) Active confirmed Problem Closed fracture of distal end of left radius ([id number] 16290) Other intraarticular fracture of lower end of left radius, subsequent encounter for closed fracture with routine healing (S52.572D) Active confirmed Problem 70195157 Closed displaced fracture of styloid process of left ulna with routine healing, subsequent encounter (S52.612D) Active confirmed Problem 11123890 Degeneration of intervertebral disc of lumbosacral region with discogenic back pain (M51.370) Active confirmed Problem 35288347 Other intraarticular fracture of lower end of left radius, initial encounter for closed fracture (S52.572A) Inactive confirmed Vital Signs Height 5 ft 2 in in 12/03/2024 Weight 200 lbs 12/03/2024 BMI 36.58 12/03/2024 Encounters Encounter Location Date Provider Diagnosis [facility] [address] [place] [address] 12/03/[address] [facility] Compression fracture of T10 vertebra with routine healing, subsequent encounter S22.070D [facility] [address] [place] [address] 06/07/2024 Shyanne [place] Other intraarticular fracture of lower end of left radius, initial encounter for closed fracture S52.572A and Fall, initial encounter W19.XXXA [facility] Outpatient [address] [place] [address] 06/11/2024 Willi Torres Other intraarticular fracture of lower end of left radius, initial encounter for closed fracture S52.572A [facility] [facility] [address] [place] [address] 06/25/2024 Shyanne jimenesSarona Other intraarticular fracture of lower end of left radius, subsequent encounter for closed fracture with routine healing S52.572D and Closed displaced fracture of styloid process of left ulna with routine healing, [facility] [address] [facility] [place] [address] 07/16/2024 Shyanne xxSar[place] Other intraarticular fracture of lower end of left radius, subsequent encounter for closed fracture with routine healing S52.572D and Closed displaced fracture of styloid process of left ulna with routine healing, subsequent encounter S52.612D [facility] [facility] [address] [place] [address] 08/13/2024 Willi Torres Closed displaced fracture of styloid process of left ulna with routine healing, subsequent encounter S52.612D and Other intraarticular fracture of lower end of left radius, subsequent encounter for closed fracture with routine healing S52.572D [facility] [address] [place] [address] 09/10/2024 Willi Torres Closed displaced fracture of styloid process of left ulna with routine healing, subsequent encounter S52.612D and Other intraarticular fracture of lower end of left radius, subsequent encounter for closed fracture with routine healing S52.572D [facility] [address] [place] [address] 11/02/2024 Richard Askew Wedge compression fracture of T11-T12 vertebra, initial encounter for closed fracture S22.080A and Degeneration of intervertebral disc of lumbosacral region with discogenic back pain M51.370 [facility] [address] [place] [address] 07/16/2024 Willi Torres Assessments Encounter Date Diagnosis [...] subsequent encounter (ICD-10 - S52.612D) 12/03/2024 Other Mary Vick presents with worsening lower back pain [...] 4-6 weeks - Return to work at [employer] with no restrictions starting next Tuesday - Follow-up as needed if symptoms worsen - No scheduled follow-up appointment necessary Thanks once again. If we can be of further service to your patients with disorders of the spine, cervical, thoracic, or lumbar, please do not hesitate to contact me. Best regards, 06/25/2024 Other Patient is doin g well 2 weeks s/p left distal radius ORIF. Given she does have a ulnar styloid fracture I placed her in a short arm cast. She does work at [employer] and has to do a lot of [...] work with some restrictions. She works at [employer] and reports she does not have to [...] 080 11/02/2024 SCC- WRIST 3 VIEW LEFT [address] 08/13/2024 SCC- PT/OT EVAL AND TREAT 3X/WEEK FOR 6 WEEKS 07/16/2024 SCC- WRIST 3 VIEW LEFT 03471 09/10/2024 MRI : Lumbosacral Spine W/O Contrast - 7 8 11/02/2024 MRI : Thoracic Spine W/O Contrast - 7214 6 11/02/2024 Insurance Providers Payer Name Payer Address Payer Phone Subscriber Number Group Number Insured Name Patient Relationship to Insured Coverage Start Date Coverage End Date Medicare [place] [employer] [address] [place] [address] [id number] 2 [facility] Self - patient is the insured 5 [employer], [employer] [address] [facility] [place] [address] [id number] doi 24 lt wrist & ribs MARY VICK Self - patient is the insured 5 Medical (General) History Medical History History ICD Code Respiratory problems: Lung Disease Hypothyroidism High Blood Pressure Depression Mental Illness: Anxiety Surgical History Surgery Date(Month/Year) ORIF of a left distal radius fracture
--- OUTSIDE RECORDS SUMMARY | 2024-12-18 13:30 | XMS_ITS | Patient Health Record ---
Author Organization The [facility] in [place] Address [address] [place] [address] Care Team Providers Care Machine Welt Butter Name Role Phone Natividad Silva Primary Care Provider GriffinkhanhJosé [phone] Allergies Allergen (clinical drug ingredient) Drug/Non Drug Allergy documented on EMR Reaction Allergy Type Onset Date Status sumatriptan Imitrex Unknown Drug Allergy Activ e Results Component Value Reference Range Notes IRON Reviewed date:01/27/2024 03:58:27 PM Interpretation: Performing Lab: Notes/Report: [facility] , Iron 24.0 50.0-170.0 ug/dL Performing Lab: see note ML - [facility] LB CBC AUTO DIFF Reviewed date:01/27/2024 03:58:27 PM Interpretation: Performing Lab: Notes/Report: [facility] , White Blood Count 6.6 4.0-11.0 10 [...] 3/uL Performing Lab: see note ML - [facility] FREE T3 Reviewed date:01/27/2024 03:58:27 PM Interpretation: Performing Lab: Notes/Report: [facility] , Free T3 1.30 2.18-3.98 pg/mL Performing Lab: see note ML - [facility] LB T4 Reviewed date:01/27/2024 03:58:27 PM Interpretation: Performing Lab: Notes/Report: [facility] , T4 Thyroxine 8.30 4.80-13.90 ug/dL Performing Lab: see note ML - [facility] TSH Reviewed date:01/27/2024 03:58:27 PM Interpretation: Performing Lab: Notes/Report: [facility] , Thyroid Stimulating Hormone 1.550 0.358-3.740 uIU/mL Performing Lab: see note ML - [facility] XR knee LUANA 4V Reviewed date:02/20/2024 09:47:36 AM Interpretation: Performing Lab: Notes/Report: Source Facility: [facility]-[address] [place] [address] [place] [address] XRay Report Signed Patient: MARY VICK MR#: [id number] : 1955 Acct:[id number] Age/Sex: 68 / F ADM Date: 02/16/24 Loc: RAD Attending Dr: Non-Staff Physician MCarmelo Ordering Physician: Physician,Non-Staff M.D. Date of Service: 02/16/24 Procedure(s): XR knee LUANA 4V Accession Number(s): [id number] cc: NATIVIDAD SILVA ; PhysicianVanessa M.D. The [place] [id number] Patient Name: MARY VICK MRN: [id number] date: 1955 Sex: F Assigned Patient Location: [facility] Current Patient Location: [facility] Accession/Order Number: [id number] Exam Date: 02/16/2024 15:40 Report Date: 02/18/2024 [...] M.D. Signed By: 02/18/24453 DD/ 1 TD/TT: Dry Transfer Man: [place] [address] XRay Report Signed Patient: CHRISTINA VICK MR#: [id number] : 1955 Acct:[id number] Age/Sex: 68 / F ADM Date: 02/16/24 Loc: RAD Attending Dr: Sebastián Marinelli M.D. Ordering Physician: Physician,NonPeteStaff Liudmila Date of Service: 02/16/24 Procedure(s): XR kne e LUANA 4V Accession Number(s): [id number] cc: NATIVIDAD SILVA ; Physician,Non-Staff Liudmila [place] [address] Patient Name: MARY VICK MRN: [id number] date: 1955 Sex: F Assigned Patient Location: RAD Current Patient Loca tion: SURGOUT Accession/Order Numb er: [id number] Exam Date: 02/16/2024 15:40 Report Date: 02/18/2024 [...] M.D. Signed By: 02/18/24453 DD/ 1 TD/TT: Dry Transfer Man: JANINA tomosynthesis screening B I Reviewed date:02/22/2024 09:14:22 PM Interpretation: Performing Lab: Notes/Report: Source Facility: [place] [address] [facility] [place] [id number] Mammography Report Signed Patient: MARY VICK MR#: [id number] : 1955 Acct:[id number] Age/Sex: 68 / F ADM Date: 02/21/24 Loc: MAMMO Attending Dr: Luisito Townsend M.D. Ordering Physician: Luisito Townsend M.D. Results: Date of Service: 02/21/24 Follow Up: Procedure(s): MM tomosynthesis screening BI Accession Number(s): [id number] cc: NATIVIDAD SILVA ; Luisito Townsend M.D. Patient Name: MARY VICK MR#: [id number] : 1955 Exam Date: 02/21/2024 Ordering Doctor: [...] lung,brain cancer at age 41. LOCATION: [facility] BREAST COMPOSITION: There are scattered areas [...] PALPABLE LUMP SHOULD BE BIOPSIED. Dictated by: Robetr Condon MD on 02/22/2024 at 07:57 Approved by: Robert Condon MD on 02/22/2024 at 07:58 Dictated By: Robert Condon M.D. Signed By: 02/22/24 0759 DD/ 8 TD/TT: Dry Transfer Man: The [place] [id number] Mammography Report Signed Patient: CHRISTINA VICK MR#: [id number] : 1955 Acct:[id number] Age/Sex: 68 / F ADM Date: 02/21/24 Loc: MAMMO Attending Dr: Ga Townsend M.D. Ordering Physician: Luisito Townsend M.D. Results: Date of Service: 06/15 Follow Up: Procedure(s): MM tomosynthesis screening BI Accession Number(s): [id number] cc: NATIVIDAD SILVA ; Luisito Townsend M.D. Patient Name: MARY VICK MR#: [id number] : 1955 Exam Date: 02/21/2024 Ordering Doctor: [...] Can cer No Treatments None Family Cancers Mothe r with breast cancer at age 47; Mother with lung cancer at age 59; Si ster with lung,brain cancer at age 43. LOCATION: [facility] BREAST COMPOSITION: There are scattered areas [...] Condon M.D. Signed By: 02/22/24 0759 DD/ 8 TD/TT: Dry Transfer Man: LIPID PROFILE Reviewed date:05/03/2024 11:25:54 AM Interpretation: Performing Lab: Notes/Report: [facility] , Triglycerides 74 <=150 mg/dL Cholesterol 206 [...] Performing Lab: see note ML - [facility] LB XR hip LUANA Reviewed date:05/03/2024 09:47:50 AM Interpretation: Performing Lab: Notes/Report: Source Facility: [facility]-[address] [place] [address] [place] [address] XRay Report Signed Patient: MARY VICK MR#: [id number] : 1955 Acct:[id number] Age/Sex: 68 / F ADM Date: 05/03/24 Loc: [facility] Attending Dr: Varun Monique M.D. Ordering Physician: Varun Monique M.D. Date of Service: 05/03/24 Procedure(s): XR hip LUANA Accession Number(s): [id number] cc: NATIVIDAD SILVA ; Varun Monique M.D. The [place] [address] Patient Name: MARY VICK MRN: [id number]:[id number] date: 1955 Sex: F Assigned Patient Location: [facility] Current Patient Location: [facility] Accession/Order Number: [id number] Exam Date: 05/03/2024 09:00 Report Date: 05/03/2024 [...] M.D. Signed By: 05/03/24922 DD/ 0 TD/TT: Dry Transfer Man: [place] [address] XRay Report Signed Patient: CHRISTINA VICK MR#: [id number] : 1955 Acct:[id number] Age/Sex: 68 / F ADM Date: 05/03/24 Loc: RAD Attending Dr: Varun Monique M.D. Ordering Physician: Varun Monique M.D. Date of Service: 05/03/24 Procedure(s): XR hip LUANA Accession Number(s): [id number] cc: NATIVIDAD SILVA ; Varun Monique M.D. [facility] [place] [address] Patient Name: MARY VICK MRN: [id number]:[id number] date: 1955 Sex: F Assigned Patient Location: RAD Current Patient Loca tion: RAD Accession/Order Numb er: [id number] Exam Date: 09:00 Report Date: 05/03/2024 09:21 [...] M.D. Signed By: 05/03/24922 DD/ 0 TD/TT: Dry Transfer Man: CBC AUTO DIFF Reviewed date:06/06/2024 09:21:21 AM Interpretation: Performing Lab: Notes/Report: [facility] , White Blood Count 8.4 4.0-11.0 10 [...] Performing Lab: see note ML - [facility] LB CT FACIAL BONES WO CON Reviewed date:06/06/2024 06:59:30 PM Interpretation: Performing Lab: Notes/Report: Source Facility: [place] [address] CT Scan Report Signed Patient: MARY VICK MR#: [id number] : 1955 Acct:[id number] Age/Sex: 68 / F ADM Date: 06/06/24 Loc: [place] 220-[address]: Luisito Townsend M.D. Ordering Physician: Lesia Holguin D.O. Date of Service: 06/06/24 Procedure(s): CT facial bones wo con Accession Number(s): [id number] cc: NATIVIDAD SILVA [place] [address] Patient Name: MARY VICK MRN: [id number]:[id number] date: 1955 Sex: F Assigned Patient Location: ER Current Patient Location: [place] Accession/Order Number: [id number] Exam Date: 06/06/2024 09:14 Report Date: 06/06/2024 [...] M.D. Signed By: 06/06/241516 DD/ 14 TD/TT: Dry Transfer Man: [place] [address] CT Scan Report Signed Patient: CHRISTINA VICK MR#: [id number] : 1955 Acct:[id number] Age/Sex: 68 / F ADM Date: 06/06/24 Loc: [place] 220-[address]: [place] Townsend M.D. Ordering Physician: Lesia Holguin D.O. Date of Service: 06/06/24 Procedure(s): CT fac ial bones wo con Accession Number(s): [id number] cc: NATIVIDAD SILVA [place] [address] Patient Name: MARY VICK MRN: [id number] date: 1955 Sex: F Assigned Patient Location: ER Current Patient Loca tion: [place] Accession/Order Numb er: [id number] Exam Date: 06/06/2024 09:14 Report Date: 06/06/2024 [...] M.D. Signed By: 06/06/241516 DD/ 14 TD/TT: Dry Transfer Man: CT chest wo con Reviewed date:06/06/2024 06:59:30 PM Interpretation: Performing Lab: Notes/Report: Source Facility: [place] [address] CT Scan Report Signed Patient: MARY VICK MR#: [id number] : 1955 Acct:[id number] Age/Sex: 68 / F ADM Date: 06/06/24 Loc: ER Attending Dr: Ordering Physician: Lesia Holguin D.O. Date of Service: 06/06/24 Procedure(s): CT chest wo con Accession Number(s): [id number] cc: NATIVIDAD SILVA [place] [address] Patient Name: MARY VICK MRN: [id number] date: 1955 Sex: F Assigned Patient Location: ER Current Patient Location: ER Accession/Order Number: [id number] Exam Date: 06/06/2024 09:14 Report Date: 06/06/2024 [...] Signed By: 06/06/24 1159 DD/ 1156 TD/TT: Dry Transfer Man: [place] [address] CT Scan Report Signed Patient: CHRISTINA VICK MR#: [id number] : 1955 Acct:[id number] Age/Sex: 68 / F ADM Date: 06/06/24 Loc: ER Attending Dr: Ordering Physician: Lesia Holguin D.O. Date of Service: 06/06/24 Procedure(s): CT ilana st wo con Accession Number(s): [id number] cc: NATIVIDAD SILVA [place] [id number] Patient Name: MARY VICK MRN: TBH:[id number] date: 1955 Sex: F Assigned Patient Location: ER Current Patient Loca tion: ER Accession/Order Numb er: [id number] Exam Date: 06/06/2024 09:14 Report Date: 06/06/2024 [...] Signed By: 06/06/24 1159 DD/ 1156 TD/TT: Dry Transfer Man: CT head/brain wo con Reviewed date:06/06/2024 06:59:30 PM Interpretation: Performing Lab: Notes/Report: Source Facility: [place] [address] CT Scan Report Signed Patient: MARY VICK MR#: [id number] : 1955 Acct:[id number] Age/Sex: 68 / F ADM Date: 06/06/24 Loc: [place] 220-[address]: Luisito Townsend M.D. Ordering Physician: Lesia Holguin D.O. Date of Service: 06/06/24 Procedure(s): CT head/brain wo con Accession Number(s): [id number] cc: NATIVIDAD SILVA [place] [address] Patient Name: MARY VICK MRN: [id number]:[id number] date: 1955 Sex: F Assigned Patient Location: ER Current Patient Location: [place] Accession/Order Number: [id number] Exam Date: 06/06/2024 09:14 Report Date: 06/06/2024 [...] is intact. No skull fracture. Nasopharynx normal. Cottage Supervisor spaces normal. Orbital contents are unremarkable. Mild [...] M.D. Signed By: 06/06/241516 DD/ 14 TD/TT: Dry Transfer Man: [place] [address] CT Scan Report Signed Patient: CHRISTINA VICK MR#: [id number] : 1955 Acct:[id number] Age/Sex: 68 / F ADM Date: 06/06/24 Loc: [place] 220-[address]: Ga Townsend M.D. Ordering Physician: Lesia Holguin D.O. Date of Service: 06/06/24 Procedure(s): CT head/brain wo con Accession Number(s): [id number] cc: NATIVIDAD SILVA [place] [id number] Patient Name: MARY VICK MRN: [id number] date: 1955 Sex: F Assigned Patient Location: ER Current Patient Loca tion: MS Accession/Order Numb er: [id number] Exam Date: 06/06/2024 09:14 Report Date: 06/06/2024 [...] is intact. No skull fracture. Nasopharynx normal. Cottage Supervisor spaces normal. Orbital contents are unremarkable. Mild [...] Signed By: 06/06/24 1517 DD/ 1515 TD/TT: Dry Transfer Man: CT cervical spine wo con Reviewed date:06/06/2024 06:59:30 PM Interpretation: Performing Lab: Notes/Report: Source Facility: [facility]-[address] [place] [address] [place] [address] CT Scan Report Signed Patient: MARY VICK MR#: [id number] : 1955 Acct:[id number] Age/Sex: 68 / F ADM Date: 06/06/24 Loc: [place] 220-[address]: Luisito Townsend M.D. Ordering Physician: Lesia Holguin D.O. Date of Service: 06/06/24 Procedure(s): CT cervical spine wo con Accession Number(s): [id number] cc: NATIVIDAD SILVA [address] [address] Patient Name: MARY VICK MRN: [id number] date: 1955 Sex: F Assigned Patient Location: ER Current Patient Location: [place] Accession/Order Number: [id number] Exam Date: 06/06/2024 09:14 Report Date: 06/06/2024 [...] Signed By: 06/06/24 1517 DD/ 14 TD/TT: Dry Transfer Man: [place] [address] CT Scan Report Signed Patient: CHRISTINA VICK MR#: [id number] : 1955 Acct:[id number] Age/Sex: 68 / F ADM Date: 06/06/24 Loc: MS 220-[address]: [place] Townsend M.D. Ordering Physician: Lesia Holguin D.O. Date of Service: 06/06/24 Procedure(s): CT cer vical spine wo con Accession Number(s): [id number] cc: RICARDONATIVIDAD [address] [address] Patient Name: MARY VICK MRN: [id number]:[id number] date: 1955 Sex: F Assigned Patient Location: ER Current Patient Loca tion: MS Accession/Order Numb er: [id number] Exam Date: 06/06/2024 09:14 Report Date: 06/06/2024 [...] M.D. Signed By: 06/06/241516 DD/ 14 TD/TT: Dry Transfer Man: CBC AUTO DIFF Reviewed date:06/12/2024 04:07:12 PM Interpretation: Performing Lab: Notes/Report: [facility] , White Blood Count 9.1 4.0-11.0 10 [...] 3/uL Performing Lab: see note ML - [facility] LB ECG 12 lead Reviewed date:06/12/2024 04:07:12 PM Interpretation: Performing Lab: Notes/Report: Source Facility: [place] [address] Electrocardiograph Report Signed Patient: MARY VICK MR#: [id number] : 1955 Acct:[id number] Age/Sex: 68 / F ADM Date: 06/11/24 Loc: SURGOUT Attending Dr: Raudel Royal M.D. Ordering Physician: Bull Maria M.D. 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 Signed By: 06/11/241756 DD/ 1340 TD/TT: Dry Transfer Man: [place] [address] Electrocardiograph Report Signed Patient: CHRISTINA VICK MR#: [id number] : 1955 Acct:[id number] Age/Sex: 68 / F ADM Date: 06/11/24 Loc: SURGOUT Attending Dr: Raudel Royal M.D. Ordering Physician: Bull Maria M.D. 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 Signed By: 06/18/24 0925 DD/ 1059 TD/TT: Dry Transfer Man: XR wrist LT min 3V Reviewed date:07/04/2024 12:50:42 PM Interpretation: Performing Lab: Notes/Report: Source Facility: [place] [address] XRay Report Signed Patient: MARY VICK MR#: [id number] : 1955 Acct:[id number] Age/Sex: 68 / F ADM Date: 06/25/24 Loc: EC Attending Dr: Raudel Royal M.D. Ordering Physician: Raudel Royal M.D. Date of Service: 06/25/24 Procedure(s): XR wrist LT min 3V Accession Number(s): [id number] cc: NATIVIDAD SILVA ; Raudel Royal M.D. [place] [address] Patient Name: MARY VICK MRN: TBH:[id number] date: 1955 Sex: F Assigned Patient Location: Current Patient Location: Accession/Order Number: [id number] Exam Date: 06/25/2024 08:35 Report Date: 06/27/2024 15:44 At the request of: RAUDEL RYOAL Procedure: XR wrist LT min 3V PROCEDURE: [...] Signed By: 06/27/24 1546 DD/ 43 TD/TT: Dry Transfer Man: [place] [address] XRay Report Signed Patient: CHRISTINA VICK MR#: [id number] : 1955 Acct:[id number] Age/Sex: 68 / F ADM Date: 06/25/24 Loc: EC Attending Dr: Raudel Royal M.D. Ordering Physician: Raudel Royal M.D. Date of Service: 06/25/24 Procedure(s): XR wri st LT min 3V Accession Number(s): [id number] cc: NATIVIDAD SILVA ; Raudel Royal M.D. [place] [address] Patient Name: MARY VICK MRN: [id number] date: 1955 Sex: F Assigned Patient Location: Current Patient Location: Accession/Order Numb er: [id number] Exam Date: 06/25/2024 08:35 Report Date: 06/27/2024 [...] Signed By: 06/27/24 1546 DD/ 43 TD/TT: Dry Transfer Man: HARSHA AUTO DIFF Reviewed date:10/25/2024 11:04:31 AM Interpretation: Performing Lab: Notes/Report: [facility] , White Blood Count 14.5 4.0-11.0 10 [...] Performing Lab: see note ML - [facility] LB D-DIMER Reviewed date:10/25/2024 11:04:31 AM Interpretation: Performing Lab: Notes/Report: [facility] , D Dimer 0.98 <=0.59 mg/L FEU RESULTS CALLED TO YARELI SCHMITT RN Increases in D-Dimer concentration observed with [...] Performing Lab: see note ML - [facility] LB PROF CHEM 8 (RAMAN FREEMAN) Reviewed date:10/25/2024 11:04:31 AM Interpretation: Performing Lab: Notes/Report: [facility] , Sodium 138 136-145 mmol/L Potassium 4.5 [...] mg/dL Performing Lab: see note ML - [facility] Troponin I High Sensitivity Reviewed date:10/25/2024 11:04:31 AM Interpretation: Performing Lab: Notes/Report: [facility] , Troponin I High Sensitivity 7.0 4.0-51.3 pg/mL CUT-OFF POINTS HAVE BEEN ESTABLISHED BASED ON THE FOURTH UNIVERSAL DEFINITION OF MYOCARDIAL INFARCTION. THE UPPER REFERENCE LIMIT (URL) OF TROPONIN, DEFINED THE 99TH PERCENTILE OF cTnI DISTRIBUTION IN A REFERENCE POPULATION, HAS BEEN CONFIRMED THE DECISION THRESHOLD FOR PA DIAGNOSIS. 99TH PERCENTILE = 51.4 PG/ML NOTE: HIGH-SENSITIVITY TROPONIN ASSAY IS NOT INTENDED TO BE USED IN ISOLATION BUT SHOULD BE INTERPRETED IN CONJUNCTION WITH OTHER DIAGNOSTIC AND CLINICAL INFORMATION. Performing Lab: see note ML - [facility] LB XR chest 1V Reviewed date:10/25/2024 11:04:31 AM Interpretation: Performing Lab: Notes/Report: Source Facility: [facility]-[address] [place] [address] [place] [address] XRay Report Signed Patient: MARY VICK MR#: [id number] : 1955 Acct:[id number] Age/Sex: 69 / F ADM Date: 10/25/24 Loc: ER Attending Dr: Ordering Physician: Donny Escalante M.D. Date of Service: 10/25/24 Procedure(s): XR chest 1V Accession Number(s): [id number] cc: NATIVIDAD SILVA ; Donny Escalante M.D. The [place] [address] Patient Name: MARY VICK MRN: [facility]:[id number] date: 1955 Sex: F Assigned Patient Location: ED.MAIN Current Patient Location: ED.MAIN Accession/Order Number: [id number] Exam Date: 10/25/2024 10:25 Report Date: 10/25/2024 [...] Avina M.D. 10/25/2024 10:29 AM Dictation Location: [place] [address] Electronically authenticated by: [id number] Y Date: 10/25/2024 10:29 Dictated By: Alysia Avina M.D. Signed By: 10/25/24 1031 DD/ 1029 TD/TT: Dry Transfer Man: [place] [address] XRay Report Signed Patient: CHRISTINA VICK MR#: [id number] : 1955 Acct:[id number] Age/Sex: 69 / F ADM Date: 10/25/24 Loc: ER Attending Dr: Ordering Physician: Donny Escalante M.D. Date of Service: 10/25/24 Procedure(s): XR chest 1V Accession Number(s): [id number] cc: NATIVIDAD SILVA ; Donny Escalante M.D. The [address] [address] Patient Name: MARY VICK MRN: [facility]:[id number] date: 1955 Sex: F Assigned Patient Location: ED.MAIN Current Patient Loca tion: ED.MAIN Accession/Order Numb er: [id number] Exam Date: 10/25/2024 10:25 Report Date: 10/25/2024 [...] Avina M.D. 10/25/2024 10:29 AM Dictation Location: [place] [address] Electronically authenticated by: [id number] Y Date: 10/25/2024 10:29 Dictated By: Alysia Avina M.D. Signed By: 10/25/24 1031 DD/ 1029 TD/TT: Dry Transfer Man: CT angio chest Reviewed date:10/25/2024 12:12:40 PM Interpretation: Performing Lab: Notes/Report: Source Facility: [address] [place] [address] [address] [address] Scan Report Signed Patient: MARY VICK MR#: [id number] : 1955 Acct:[id number] Age/Sex: 69 / F ADM Date: 10/25/24 Loc: ER Attending Dr: Ordering Physician: Donny Escalante M.D. Date of Service: 10/25/24 Procedure(s): CT angio chest Accession Number(s): [id number] cc: NATIVIDAD SILVA [place] [address] Patient Name: MARY IVCK MRN: TBH:[id number] date: 1955 Sex: F Assigned Patient Location: ER Current Patient Location: ER Accession/Order Number: [id number] Exam Date: 10/25/2024 11:50 Report Date: 10/25/2024 [...] Avina M.D. 10/25/2024 12:04 PM Dictation Location: [place] [address] Electronically authenticated by: [id number] Y Date: 10/25/2024 12:04 Dictated By: Alysia Avina M.D. Signed By: 10/25/241206 DD/ 03 TD/TT: Dry Transfer Man: [place] [address] CT Scan Report Signed Patient: CHRISTINA VICK MR#: [id number] : 1955 Acct:[id number] Age/Sex: 69 / F ADM Date: 10/25/24 Loc: ER Attending Dr: Ordering Physician: Donny Escalante M.D. Date of Service: 10/25/24 Procedure(s): CT ang io chest Accession Number(s): [id number] cc: NATIVIDAD SILVA [place] [address] Patient Name: MARY VICK MRN: TBH:[id number] date: 1955 Sex: F Assigned Patient Location: ER Current Patient Loca tion: ER Accession/Order Numb er: [id number] Exam Date: 10/25/2024 11:50 Report Date: 10/25/2024 [...] Avina M.D. 10/25/2024 12:04 PM Dictation Location: [place] [address] Electronically authenticated by: [id number] Y Date: 10/25/2024 12:04 Dictated By: Alysia Avina M.D. Signed By: 10/25/24 1207 DD/ 1204 TD/TT: Dry Transfer Man: MR thoracic spine wo con Reviewed date:11/26/2024 03:28:23 PM Interpretation: Performing Lab: Notes/Report: [facility] [facility] [place] [address] [place] [address] Magnetic Resonance Report Signed Patient: MARY VICK MR#: [id number] : 1955 Acct:[id number] Age/Sex: 69 / F ADM Date: 11/26/24 Loc: MRI Attending Dr: Rhett Norton M.D. Ordering Physician: Richard Askew Date of Service: 11/26/24 Procedure(s): MR thoracic spine wo con Accession Number(s): [id number] cc: NATIVIDAD SILVA ; Richard Askew [place] [address] Patient Name: MARY VICK MRN: [facility]:[id number] date: 1955 Sex: F Assigned Patient Location: MRI Current Patient Location: MRI Accession/Order Number: [id number] Exam Date: 11/26/2024 10:32 Report Date: 11/26/2024 [...] Gandara M.D. 11/26/2024 10:42 AM Dictation Location: [place] [address] Electronically authenticated by: [id number] Y Date: 11/26/2024 10:42 Dictated By: Matteo Gandara M.D. Signed By: 11/26/24 1045 DD/ 1042 TD/TT: Dry Transfer Man: [place] [address] Magnetic Resonance Report Signed Patient: CHRISTINA VICK MR#: [id number] : 1955 Acct:[id number] Age/Sex: 69 / F ADM Date: 11/26/24 Loc: MRI Attending Dr: Rhett Norton M.D. Ordering Physician: Richard Askew Date of Service: 11/26/24 Procedure(s): MR tho racic spine wo con Accession Number(s): [id number] cc: NATIVIDAD SILVA ; Richard Askew [place] [id number] Patient Name: MARY VICK MRN: [facility]:[id number] date: 1955 Sex: F Assigned Patient Location: MRI Current Patient Loca tion: MRI Accession/Order Numb er: [id number] Exam Date: 11/26/2024 10:32 Report Date: 11/26/2024 [...] Gandara M.D. 11/26/2024 10:42 AM Dictation Location: [place] [address] Electronically authenticated by: [id number] Y Date: 11/26/2024 10:42 Dictated By: Matteo Gandara M.D. Signed By: 11/26/24 1045 DD/ 1042 TD/TT: Dry Transfer Man: MR lumbar spine wo con Reviewed date:11/26/2024 03:28:23 PM Interpretation: Performing Lab: Notes/Report: Source Facility: [place] [address] [place] [address] Magnetic Resonance Report Signed Patient: MARY VICK MR#: [id number] : 1955 Acct:[id number] Age/Sex: 69 / F ADM Date: 11/26/24 Loc: MRI Attending Dr: Rhett Norton M.D. Ordering Physician: Richard Askew Date of Service: 11/26/24 Procedure(s): MR lumbar spine wo con Accession Number(s): [id number] cc: NATIVIDAD SILVA ; Richard Askew [place] [id number] Patient Name: MARY VICK MRN: [id number] date: 1955 Sex: F Assigned Patient Location: MRI Current Patient Location: MRI Accession/Order Number: [id number] Exam Date: 11/26/2024 10:42 Report Date: 11/26/2024 [...] Gandara M.D. 11/26/2024 10:50 AM Dictation Location: [place] [address] Electronically authenticated by: [id number] Y Date: 11/26/2024 10:50 Dictated By: Matteo Gandara M.D. Signed By: 11/26/24 1053 DD/ 1050 TD/TT: Dry Transfer Man: [place] [address] Magnetic Resonance Report Signed Patient: CHRISTINA VICK MR#: [id number] : 1955 Acct:[id number] Age/Sex: 69 / F ADM Date: 11/26/24 Loc: MRI Attending Dr: Rhett Norton M.D. Ordering Physician: Richard Askew Date of Service: 11/26/24 Procedure(s): MR lum bar spine wo con Accession Number(s): [id number] cc: NATIVIDAD SILVA ; Richard Askew [place] [id number] Patient Name: MARY VICK MRN: [facility]:[id number] date: 1955 Sex: F Assigned Patient Location: MRI Current Patient Loca tion: MRI Accession/Order Numb er: [id number] Exam Date: 11/26/2024 10:42 Report Date: 11/26/2024 [...] Gandara M.D. 11/26/2024 10:50 AM Dictation Location: [place] [address] Electronically authenticated by: [id number] Y Date: 11/26/2024 10:50 Dictated By: Matteo Gandara M.D. Signed By: 11/26/24 1053 DD/ 1050 TD/TT: Dry Transfer Man: XR wrist LT min 3V Reviewed date:09/10/2024 10:40:29 AM Interpretation: Performing Lab: Notes/Report: Source Facility: [place] [address] XRay Report Signed Patient: MARY VICK MR#: [id number] : 1955 Acct:[id number] Age/Sex: 69 / F ADM Date: 09/10/24 Loc: Attending Dr: Raudel Royal M.D. Ordering Physician: Raudel Royal M.D. Date of Service: 09/10/24 Procedure(s): XR wrist LT min 3V Accession Number(s): [id number] cc: NATIVIDAD SILVA ; Raudel Royal M.D. [place] [address] Patient Name: MARY VICK MRN: [facility]:[id number] date: 1955 Sex: F Assigned Patient Location: Current Patient Location: Accession/Order Number: [id number] Exam Date: 09/10/2024 10:26 Report Date: 09/10/2024 [...] Ghanshyam Mendez M.D.09/10/2024 10:27 AM Dictation Location: [place] [address] Electronically authenticated by: [id number] Y Date: 09/10/2024 10:27 Dictated By: Ghanshyam Mendez D.O. Signed By: 09/10/24 1029 DD/ 1027 TD/TT: Dry Transfer Man: [place] [address] XRay Report Signed Patient: CHRISTINA VICK MR#: [id number] : 1955 Acct:[id number] Age/Sex: 69 / F ADM Date: 09/10/24 Loc: EC Attending Dr: Raudel Royal M.D. Ordering Physician: Raudel Royal M.D. Date of Service: 09/10/24 Procedure(s): XR wri st LT min 3V Accession Number(s): [id number] cc: NATIVIDAD SILVA ; Raudel Royal M.D. [place] [phone] Patient Name: MARY VICK MRN: [facility]:[id number] date: 1955 Sex: F Assigned Patient Location: Current Patient Loca tion: EC Accession/Order Numb er: [id number] Exam Date: 09/10/2024 10:26 Report Date: 09/10/2024 [...] Ghanshyam Mendez M.D.09/10/2024 10:27 AM Dictation Location: [place] [address] Electronically authenticated by: [id number] Y Date: 09/10/2024 10:27 Dictated By: Kenn Mendez D.O. Signed By: 09/10/24 1029 DD/ 1027 TD/TT: Dry Transfer Man: XR wrist LT min 3V Reviewed date:08/13/2024 04:11:06 PM Interpretation: Performing Lab: Notes/Report: Source Facility: [place] [address] XRay Report Signed Patient: MARY VICK MR#: [id number] : 1955 Acct:[id number] Age/Sex: 69 / F ADM Date: 08/13/24 Loc: Attending Dr: Raudel Royal M.D. Ordering Physician: Raudel Royal M.D. Date of Service: 08/13/24 Procedure(s): XR wrist LT min 3V Accession Number(s): [id number] cc: NATIVIDAD SILVA ; Raudel Royal M.D. [place] [phone] Patient Name: MARY VICK MRN: [facility]:[id number] date: 1955 Sex: F Assigned Patient Location: Current Patient Location: Accession/Order Number: [id number] Exam Date: 08/13/2024 14:03 Report Date: 08/13/2024 [...] Borrero Jr., D.O.08/13/2024 2:04 PM Dictation Location: [place] [address] Electronically authenticated by: [id number] Y Date: 08/13/2024 14:04 Dictated By: Travis Borrero M.D. Signed By: 08/13/24 1407 DD/ 03 TD/TT: Dry Transfer Man: [place] [address] XRay Report Signed Patient: CHRISTINA VICK MR#: [id number] : 1955 Acct:[id number] Age/Sex: 69 / F ADM Date: 08/13/24 Loc: EC Attending Dr: Raudel Royal M.D. Ordering Physician: Raudel Royal M.D. Date of Service: 08/13/24 Procedure(s): XR wri st LT min 3V Accession Number(s): [id number] cc: NATIVIDAD SILVA ; Raudel Royal M.D. [place] [phone] Patient Name: MARY VICK MRN: TBH:[id number] date: 1955 Sex: F Assigned Patient Location: Current Patient Loca tion: EC Accession/Order Numb er: [id number] Exam Date: 08/13/2024 14:03 Report Date: 08/13/2024 [...] Borrero Jr., D.O.08/13/2024 2:04 PM Dictation Location: [facility] Electronically authenticated by: [id number] Y Date: 08/13/2024 14:04 Dictated By: Travis Borrero M.D. Signed By: 08/13/24 1407 DD/ 1404 TD/TT: Dry Transfer Man: XR wrist LT min 3V Reviewed date:07/16/2024 01:45:20 PM Interpretation: Performing Lab: Notes/Report: Source Facility: [place] [address] XRay Report Signed Patient: MARY VICK MR#: [id number] : 1955 Acct:[id number] Age/Sex: 68 / F ADM Date: 07/16/24 Loc: EC Attending Dr: Raudel Royal M.D. Ordering Physician: Raudel Royal M.D. Date of Service: 07/16/24 Procedure(s): XR wrist LT min 3V Accession Number(s): [id number] cc: NATIVIDAD SILVA ; Raudel Royal M.D. [place] [address] Patient Name: MARY VICK MRN: [id number]:[id number] date: 1955 Sex: F Assigned Patient Location: Current Patient Location: Accession/Order Number: [id number] Exam Date: 07/16/2024 13:24 Report Date: 07/16/2024 [...] Alysia Avina M.D.07/16/2024 1:26 PM Dictation Location: [place] [address] Electronically authenticated by: [id number] Y Date: 07/16/2024 13:26 Dictated By: Alysia Avina M.D. Signed By: 07/16/24 1329 DD/ 1326 TD/TT: Dry Transfer Man: [place] [address] XRay Report Signed Patient: CHRISTINA VICK MR#: [id number] : 1955 Acct:[id number] Age/Sex: 68 / F ADM Date: 07/16/24 Loc: EC Attending Dr: Raudel Royal M.D. Ordering Physician: Raudel Royal M.D. Date of Service: 07/16/24 Procedure(s): XR wri st LT min 3V Accession Number(s): [id number] cc: NATIVIDAD SILVA ; Raudel Royal M.D. [place] [phone] Patient Name: MARY VICK MRN: [facility]:[id number] date: 1955 Sex: F Assigned Patient Location: Current Patient Loca tion: EC Accession/Order Numb er: [id number] Exam Date: 07/16/2024 13:24 Report Date: 07/16/2024 [...] Alysia Avina M.D.07/16/2024 1:26 PM Dictation Location: [place] [address] Electronically authenticated by: [id number] Y Date: 07/16/2024 13:26 Dictated By: Alysia Avina M.D. Signed By: 07/16/24 1329 DD/ 1326 TD/TT: Dry Transfer Man: XR chest 1V Reviewed date:06/18/2024 12:30:48 PM Interpretation: Performing Lab: Notes/Report: Source Facility: [place] [address] XRay Report Signed Patient: MARY VICK MR#: [id number] : 1955 Acct:[id number] Age/Sex: 68 / F ADM Date: 06/17/24 Loc: ER Attending Dr: Ordering Physician: Catherine Bales Date of Service: 06/17/24 Procedure(s): XR chest 1V Accession Number(s): [id number] cc: NATIVIDAD SILVA ; Catherine Bales [place] [address] Patient Name: MARY VICK MRN: TBH:[id number] date: 1955 Sex: F Assigned Patient Location: ER Current Patient Location: ER Accession/Order Number: [id number] Exam Date: 06/17/2024 11:15 Report Date: 06/17/2024 [...] Signed By: 06/17/24 1321 DD/ 1319 TD/TT: Dry Transfer Man: [place] [address] XRay Report Signed Patient: CHRISTINA VICK MR#: [id number] : 1955 Acct:[id number] Age/Sex: 68 / F ADM Date: 06/17/24 Loc: ER Attending Dr: Ordering Physician: Catherine Bales Date of Service: 06/17/24 Procedure(s): XR chest 1V Accession Number(s): [id number] cc: NATIVIDAD SILVA ; Catherine Bales [place] [phone] Patient Name: MARY VICK MRN: [facility]:[id number] date: 1955 Sex: F Assigned Patient Location: ER Current Patient Loca tion: ER Accession/Order Numb er: [id number] Exam Date: 06/17/2024 11:15 Report Date: 06/17/2024 [...] Signed By: 06/17/24 1321 DD/ 1319 TD/TT: Dry Transfer Man: Troponin I High Sensitivity Reviewed date:06/18/2024 12:30:48 PM Interpretation: Performing Lab: Notes/Report: [facility] , Troponin I High Sensitivity 5.3 4.0-51.3 pg/mL CUT-OFF POINTS HAVE BEEN ESTABLISHED BASED ON THE FOURTH UNIVERSAL DEFINITION OF MYOCARDIAL INFARCTION. THE UPPER REFERENCE LIMIT (URL) OF TROPONIN, DEFINED THE 99TH PERCENTILE OF cTnI DISTRIBUTION IN A REFERENCE POPULATION, HAS BEEN CONFIRMED THE DECISION THRESHOLD FOR PA DIAGNOSIS. 99TH PERCENTILE = 51.4 PG/ML NOTE: HIGH-SENSITIVITY TROPONIN ASSAY IS NOT INTENDED TO BE USED IN ISOLATION BUT SHOULD BE INTERPRETED IN CONJUNCTION WITH OTHER DIAGNOSTIC AND CLINICAL INFORMATION. Performing Lab: see note ML - [facility] LB PROF 14(COMP METB) Reviewed date:06/18/2024 12:30:48 PM Interpretation: Performing Lab: Notes/Report: [facility] , Sodium 138 136-145 mmol/L Potassium 4.4 [...] Globulin Ratio 0.8 Performing Lab: see note - [facility] LB D-DIMER Reviewed date:06/18/2024 12:30:48 PM Interpretation: Performing Lab: Notes/Report: [facility] , D Dimer 3.27 <=0.59 mg/L FEU [...] Performing Lab: see note ML - [facility] LB CBC AUTO DIFF Reviewed date:06/18/2024 12:30:48 PM Interpretation: Performing Lab: Notes/Report: [facility] , White Blood Count 9.0 4.0-11.0 10 [...] 3/uL Performing Lab: see note ML - [facility] LB FL fluoroscopy <1hr NON-READ Reviewed date:06/13/2024 12:18:22 PM Interpretation: Performing Lab: Notes/Report: Source Facility: [place] [address] Fluoroscopy Report Signed Patient: MARY VICK MR#: [id number] : 1955 Acct:[id number] Age/Sex: 68 / F ADM Date: 06/11/24 Loc: SURGOUT Attending Dr: Raudel Royal M.D. Ordering Physician: Raudel Royal M.D. Date of Service: 06/11/24 Procedure(s): FL fluoroscopy <1hr NON-READ Accession Number(s): [id number] cc: NATIVIDAD SILVA ; Raudel Royal M.D. [place] [address] Patient Name: MARY VICK MRN: [id number] date: 1955 Sex: F Assigned Patient Location: [facility] Current Patient Location: Accession/Order Number: [id number] Exam Date: 06/11/2024 15:25 Report Date: 06/13/2024 07:28 At the request of: RAUDEL ROYAL Procedure: FL fluoroscopy <1hr NON-READ EXAM: FL fluoroscopy <1hr NON-READ HISTORY: TECHNIQUE: FINDINGS: Please see Operative Report. Electronically authenticated by: NARAYAN RIVERO Date: 06/13/2024 07:28 Dictated By: Elizabeth,Radiologist Signed By: 06/13/24729 DD/ 7 TD/TT: Dry Transfer Man: [place] [address] Fluoroscopy Report Signed Patient: CHRISTINA VICK MR#: [id number] : 1955 Acct:[id number] Age/Sex: 68 / F ADM Date: 06/11/24 Loc: SURGOUT Attending Dr: Raudel Royal M.D. Ordering Physician: Raudel Royal M.D. Date of Service: 06/11/24 Procedure(s): FL fluoroscopy <1hr NON-READ Accession Number(s): [id number] cc: NATIVIDAD SILVA ; Raudel Royal M.D. [place] [address] Patient Name: MARY VICK MRN: TBH:[id number] date: 1955 Sex: F Assigned Patient Location: [facility] Current Patient Location: Accession/Order Numb er: [id number] Exam Date: 06/11/2024 15:25 Report Date: 06/13/2024 07:28 At the request of: RAUDEL ROYAL Procedure: FL fluoro scopy <1hr NON-READ EXAM: FL fluoroscopy <1hr NON-READ HISTORY: TECHNIQUE: FINDINGS: Please see Operative Report. Electronically authenticated by: NARAYAN RIVERO Date: 06/13/2024 07:28 Dictated By: ElizabethRadiologist Signed By: 06/13/24729 DD/ 7 TD/TT: Dry Transfer Man: ABRAN chest 2V Reviewed date:06/07/2024 12:42:46 PM Interpretation: Performing Lab: Notes/Report: Source Facility: [place] [address] [place] [address] XRay Report Signed Patient: MARY VICK MR#: [id number] : 1955 Acct:[id number] Age/Sex: 68 / F ADM Date: 06/06/24 Loc: MS 220-[address]: Luisito Townsend M.D. Ordering Physician: Luisito Townsend M.D. Date of Service: 06/07/24 Procedure(s): XR chest 2V Accession Number(s): [id number] cc: NATIVIDAD SILVA ; Luisito Townsend M.D. The [address] [address] Patient Name: MARY VICK MRN: TBH:[id number] date: 1955 Sex: F Assigned Patient Location: MS Current Patient Location: MS Accession/Order Number: [id number] Exam Date: 06/07/2024 08:45 Report Date: 06/07/2024 [...] M.D. Signed By: 06/07/24902 DD/ 9 TD/TT: Dry Transfer Man: [place] [address] XRay Report Signed Patient: CHRISTINA VICK MR#: [id number] : 1955 Acct:[id number] Age/Sex: 68 / F ADM Date: 06/06/24 Loc: MS 220-[address]: Ga Townsend M.D. Ordering Physician: Luisito Townsend M.D. Date of Service: 06/07/24 Procedure(s): XR chest 2V Accession Number(s): [id number] cc: NATIVIDAD SILVA ; Luisito Townsend M.D. The [address] [id number] Patient Name: MARY VICK MRN: TBH:[id number] date: 1955 Sex: F Assigned Patient Location: MS Current Patient Loca tion: MS Accession/Order Numb er: [id number] Exam Date: 06/07/2024 08:45 Report Date: 06/07/2024 [...] M.D. Signed By: 06/07/24902 DD/ 9 TD/TT: Dry Transfer Man: JÚNIOR ORTEGA W or MICROSCOPIC Reviewed date:06/07/2024 12:42:46 PM Interpretation: Performing Lab: Notes/Report: [facility] , Color Urine YELLOW YELLOW Clarity Urine CLEAR CLEAR Specific [place] Urine >=1.030 1.005-1.025 pH Urine 5.5 5.0-9.0 [...] #/LPF Performing Lab: see note ML - [facility] LB PROF 14(COMP METB) Reviewed date:06/07/2024 12:42:46 PM Interpretation: Performing Lab: Notes/Report: [facility] , Sodium 138 136-145 mmol/L Potassium 3.6 [...] 0.8 Performing Lab: see note ML - [facility] LB CBC AUTO DIFF Reviewed date:06/07/2024 12:42:46 PM Interpretation: Performing Lab: Notes/Report: [facility] , White Blood Count 7.5 4.0-11.0 10 [...] 10 3/uL Performing Lab: see note - [facility] Troponin I High Sensitivity Reviewed date:06/06/2024 06:59:30 PM Interpretation: Performing Lab: Notes/Report: [facility] , Troponin I High Sensitivity 5.6 4.0-51.3 pg/mL CUT-OFF POINTS HAVE BEEN ESTABLISHED BASED ON THE FOURTH UNIVERSAL DEFINITION OF MYOCARDIAL INFARCTION. THE UPPER REFERENCE LIMIT (URL) OF TROPONIN, DEFINED THE 99TH PERCENTILE OF cTnI DISTRIBUTION IN A REFERENCE POPULATION, HAS BEEN CONFIRMED THE DECISION THRESHOLD FOR PA DIAGNOSIS. 99TH PERCENTILE = 51.4 PG/ML NOTE: HIGH-SENSITIVITY TROPONIN ASSAY IS NOT INTENDED TO BE USED IN ISOLATION BUT SHOULD BE INTERPRETED IN CONJUNCTION WITH OTHER DIAGNOSTIC AND CLINICAL INFORMATION. Performing Lab: see note - [facility] BNP Reviewed date:06/06/2024 06:59:30 PM Interpretation: Performing Lab: Notes/Report: [facility] , NT Pro B Type Natriuretic Pept 59.0 <=900.0 pg/mL Performing Lab: see note - [facility] XR wrist LT min 3V Reviewed date:06/06/2024 10:53:15 AM Interpretation: Performing Lab: Notes/Report: Source Facility: [facility]-[address] [place] [address] [place] [address] XRay Report Signed Patient: MARY VICK MR#: [id number] : 1955 Acct:[id number] Age/Sex: 68 / F ADM Date: 06/06/24 Loc: ER Attending Dr: Ordering Physician: Lesia Holguin D.O. Date of Service: 06/06/24 Procedure(s): XR wrist LT min 3V Accession Number(s): [id number] cc: NATIVIDAD SILVA ; Lesia Holguin D.O. [place] [address] Patient Name: MARY VICK MRN: [facility]:[id number] date: 1955 Sex: F Assigned Patient Location: ER Current Patient Location: ER Accession/Order Number: [id number] Exam Date: 06/06/2024 09:14 Report Date: 06/06/2024 [...] Signed By: 06/06/24 1033 DD/ 1030 TD/TT: Dry Transfer Man: [place] [address] XRay Report Signed Patient: CHRISTINA VICK MR#: [id number] : 1955 Acct:[id number] Age/Sex: 68 / F ADM Date: 06/06/24 Loc: ER Attending Dr: Ordering Physician: Lesia Holguin D.O. Date of Service: 06/06/24 Procedure(s): XR wri st LT min 3V Accession Number(s): [id number] cc: NATIVIDAD SILVA ; Lesia Holguin D.O. [place] [address] Patient Name: MARY VICK MRN: TBH:[id number] date: 1955 Sex: F Assigned Patient Location: ER Current Patient Loca tion: ER Accession/Order Numb er: [id number] Exam Date: 06/06/2024 09:14 Report Date: 06/06/2024 [...] Signed By: 06/06/24 1033 DD/ 1030 TD/TT: Dry Transfer Man: Prothrombin Time INR Reviewed date:06/06/2024 09:21:21 AM Interpretation: Performing Lab: Notes/Report: [facility] , Prothrombin Time 10.4 9.0-11.6 sec INR 0.98 DESIRED INR: 2.0-3.0 CONDITIONS NOT LISTED BELOW 2.5-3.5 FOR PROSTHETIC HEART VALVE REPLACEMENT 2.5-3.5 RECURRENT THROMBOSIS Performing Lab: see note ML - [facility] LB PROF 14(COMP METB) Reviewed date:06/06/2024 09:21:21 AM Interpretation: Performing Lab: Notes/Report: [facility] , Sodium 142 136-145 mmol/L Potassium 4.0 [...] 1.0 Performing Lab: see note ML - [facility] LB CT head/brain wo con Reviewed date:03/19/2024 08:22:34 AM Interpretation: Performing Lab: Notes/Report: Source Facility: [facility]-[address] [place] [address] [place] [address] CT Scan Report Signed Patient: MARY VICK MR#: [id number] : 1955 Acct:[id number] Age/Sex: 68 / F ADM Date: 03/18/24 Loc: ER Attending Dr: Ordering Physician: Catherine Bales Date of Service: 03/18/24 Procedure(s): CT head/brain wo con Accession Number(s): [id number] cc: NATIVIDAD SILVA [place] [address] Patient Name: MARY VICK MRN: TBH:[id number] date: 1955 Sex: F Assigned Patient Location: ED.MAIN Current Patient Location: ED.MAIN Accession/Order Number: [id number] Exam Date: 03/18/2024 18:35 Report Date: 03/18/2024 [...] M.D. Signed By: 03/18/241922 DD/ 19 TD/TT: Dry Transfer Man: [place] [address] CT Scan Report Signed Patient: CHRISTINA VICK MR#: [id number] : 1955 Acct:[id number] Age/Sex: 68 / F ADM Date: 03/18/24 Loc: ER Attending Dr: Ordering Physician: Catherine Bales Date of Service: 03/18/24 Procedure(s): CT head/brain wo con Accession Number(s): [id number] cc: NATIVIDAD SILVA [place] [address] Patient Name: MARY VICK MRN: [id number] date: 1955 Sex: F Assigned Patient Location: ED.MAIN Current Patient Loca tion: ED.MAIN Accession/Order Numb er: [id number] Exam Date: 18:35 Report Date: 03/18/2024 19:20 [...] M.D. Signed By: 03/18/241922 DD/ 19 TD/TT: Dry Transfer Man: CT lung screening low-dose Reviewed date:10/25/2024 11:04:31 AM Interpretation: Performing Lab: Notes/Report: Source Facility: [address] [place] [address] CT Scan Report Signed Patient: MARY VICK MR#: [id number] : 1955 Acct:[id number] Age/Sex: 69 / F ADM Date: 10/23/24 Loc: CT Attending Dr: NATIVIDAD SILVA Ordering Physician: NATIVIDAD SILVA Date of Service: 10/23/24 Procedure(s): CT lung screening low-dose Accession Number(s): [id number] cc: NATIVIDAD SILVA [place] [address] Patient Name: MARY VICK MRN: [id number] date: 1955 Sex: F Assigned Patient Location: CT Current Patient Location: Accession/Order Number: [id number] Exam Date: 10/23/2024 15:17 Report Date: 10/24/2024 [...] Mendez M.D. 10/24/2024 12:10 AM Dictation Location: [place] [address] Electronically authenticated by: [id number] Y Date: 10/24/2024 00:10 Dictated By: Ghanshyam Mendez D.O. Signed By: 10/24/24 001 DD/ TD/TT: Dry Transfer Man: [place] [address] CT Scan Report Signed Patient: CHRISTINA VICK MR#: [id number] : 1955 Acct:[id number] Age/Sex: 69 / F ADM Date: 10/23/24 Loc: CT Attending Dr: NATIVIDAD SLIVA Ordering Physician: NATIVIDAD SILVA Date of Service: 10/23/24 Procedure(s): CT payton g screening low-dose Accession Number(s): [id number] cc: NATIVIDAD SILVA [place] [id number] Patient Name: MARY VICK MRN: [facility]:[id number] date: 1955 Sex: F Assigned Patient Location: CT Current Patient Location: Accession/Order Numb er: [id number] Exam Date: 10/23/2024 15:17 Report Date: 10/24/2024 [...] basilar groundglass interstitial lung changes. Consider ac muscogee inflammatory changes. Redemonstration of chronic coarsened interstiti um. Resolution of left upper lobe lung nodule. No new or enlarging lung nodules. Lung-RADS Version 1. 0 Assessment Category: 2 REMARKS: Continued a nnual screening with LDCT in 12 months is recommended. Impression dictated by: Ghanshyam Mendez M.D. 10/24/2024 12:10 AM Dictation [facility] Electronically authenticated by: [id number] Y Date: 10/24/2024 00:10 Dictated By: Kenn Mendez D.O. Signed By: 10/24/24 0013 DD/ 001 TD/TT: Dry Transfer Man: ECG 12 lead Reviewed date:10/26/2024 08:52:28 AM Interpretation: Performing Lab: Notes/Report: Source Facility: [facility]-[address] [place] [address] [place] [address] Electrocardiograph Report Signed Patient: MARY VICK MR#: [id number] : 1955 Acct:[id number] Age/Sex: 69 / F ADM Date: 10/25/24 Loc: ER Attending Dr: Ordering Physician: Donny Escalante M.D. 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 Measurements Intervals [place] Rate: 77 P: 28 [place]: 156 QRS: 72 QRSD: 88 T: 66 QT: 390 QTc: 421 Interpretive Statements 1100 Sinus rhythm 9110 normal ECG Compared to ECG 06/17/2024 10:59:54 No significant changes Electronically Signed On 10-25-2024 20:19:40 EDT by EFFIE COOK M.D. Dictated By: EFFIE COOK Signed By: 10/25/242019 DD/ 0 TD/TT: Dry Transfer Man: [place] [address] Electrocardiograph Report Signed Patient: CHRISTINA VICK MR#: [id number] : 1955 Acct:[id number] Age/Sex: 69 / F ADM Date: 10/25/24 Loc: ER Attending Dr: Ordering Physician: Donny Escalante M.D. 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 Measurements Intervals Gibson Rate: 77 P: 28 AZ: 156 QRS: 72 QRSD: 88 T: 66 QT: 390 QTc: 421 Interpretive Statements 1100 Sinus rhythm 9110 normal ECG Compared to ECG 06/17/2024 10:59:54 No significant changes Electronically Ashlyn d On 10-25-2024 20:19:40 EDT by EFFIE COOK M.D. Dictated By: EFFIE COOK Signed By: 10/25/242019 DD/ 0 TD/TT: Dry Transfer Man: BNP Reviewed date:10/25/2024 11:04:31 AM Interpretation: Performing Lab: Notes/Report: [facility] , NT Pro B Type Natriuretic Pept 44.0 <=900.0 pg/mL Performing Lab: see note ML - [facility] Reason For Referral Diagnosis 1 Screening for colon cancer (Z12.11) Referral Organization [facility] Referring Provider First Name José Referring Provider Last Name Kristian Referring Provider [facility] araceli Referred Provider Ash Parson Referred Provider Specialty General Surg kamala Referral Priority Routine Reason COPD Diagnosis 1 COPD exacerbation (J 44.1) Referral Organization [facility] Referring Provider First Name Natividad Referring Provider Last Name Ricardo Referring Provider [facility] araceli Referred Provider Ronni Ac Referred Provider Specialty Pulmonary Di seases Referral Priority Routine Diagnosis 1 COPD (chronic obstru ctive pulmonary disease) (J44.9) Referral Organization [facility] Referring Provider First Name Natividad Referring Provider Last Name Ricardo Referring Provider [facility] araceli Referred Provider Ronni Ac Referred Provider [...] Orally BID for 30 days 08/27/2024 Active Azithromycin 250 MG as directed Orally daily for 5 days take 2 tablets po on first day than 1 tablet po days 2-5 12/06/2024 Active Omeprazole Magnesium 20 MG 1 tablet [...] a day for 30 days 04/09/2024 Active predniSONE 20 MG 2 tablet Orally Once a day for 5 days 11/30/2024 Active Zepbound 2.5 MG/0.5ML 0.5 mL Subcutaneou s for 30 days call for next dose 05/01/2024 Active Albuterol Sulfate (2.5 MG/3ML) 0.083% 3 mL as needed Inhalation every 6 hrs for 14 days Active Immunizations Vaccine Route Administration Date Status Comme nts Flu, Fluzone High-Dose (9066 2) 65 yrs+ (2772-8317) Unknown 02/12/2022 Administered Pneumococcal (Pneumovax 23) Unknown [...] Problem Status W/U Status Risk Notes Problem 71162118 Age-related osteoporosis without current pathological fracture (M81.0) Active confirmed Problem Atherosclerosis of aorta (35030682) Atherosclerosis of aorta (I70.0) Active confirmed Problem 95978952 Diaphragmatic hernia without obstruction or gangrene (K44.9) Active confirmed Problem Palpitations (76164294) Palpitations (R00.2) Active confirmed Problem Chest pain (16721979) Chest pain (R07.9) Active confirmed Problem COPD - Chronic obstructive pulmonary disease (13447696) COPD (chronic obstructive pulmonary disease) (J44.9) Active confirmed Problem Gastroesophageal reflux disease (058153966) GERD (gastroesophageal reflux disease) (K21.9) Active confirmed Problem Hypothyroid (20611882) Hypothyroid (E03.9) Active confirmed Problem Insomnia (206510802) Insomnia (G47.00) Active confirmed Problem Migraine (06412835) Migraine (G43.909) Active c onfirmed Problem 221349994 COPD exacerbatio n (J44.1) Active confirmed Problem Osteoporosis (22494412) Osteoporosis (M81.0) Active confirmed Problem Acquired hypothyroidism (216294658) Acquired hypothyroidism (E03.9) Active confirmed Problem Dyspnea (044395210) Exertional shortness of breath (R06.02) Active confirmed Problem Rib fracture (49977516) Rib fracture (S22.39XA) Active confirmed Problem Leukocytosis (270111142) Leukocytosis (D72.829) Active confirmed Problem Iron deficiency anemia (46959000) Anemia, iron deficiency (D50.9) Active confirmed Problem Memory deficit (049233884) Memory deficit (R41.3) Active confirmed Problem Excessive caffeine intake (113808598071606) Excessive caffeine intake (Z91.89) Active confirmed Problem Essential hypertension (85346340) BP (high blood pressure) (I10) Active confirmed Problem Mixed anxiety and depressive disorder (596510758) Anxiety and depression (F41.8) Active confirmed Problem Mild pulmonary hypertension (496166556) Mild pulmonary hypertension (I27.20) Active confirmed Problem Obese class II (finding) (553297878474750) Class 2 obesity (E66.9) Active confirmed Problem 452550071 Abnormal finding s on diagnostic imaging of other specified body structures (R93.89) Active confirmed Problem Disease caused by Severe acute respiratory syndrome coronavirus 2 (disorder) (070247096) COVID (U07.1) Active confirmed Problem Supraventricular tachycardia (disorder) (6567703) Supraventricular tachycardia, unspecified (I47.10) Active confirmed Vital [...] Provider Diagnosis [facility] [address] [place] [address] 02/29/2024 Natividad Ricardo Migraine G43.[address] [address] 03/16/2024 Natividad Ricardo Migraine G43.[address] [address] 04/09/2024 Natividad Silva COPD exacerbation J4 4.1 [facility] [address] [place] [address] 03/19/2024 Natividad Ricardo Migraine G43.909 [facility] [address] [place] [address] 02/08/2024 José Townsend Encounter for Medica re annual wellness exam Z00.00 [facility] [address] [place] [address] 10/09/2024 Natividad Ric[address] Migraine G43.909 [facility] [address] [place] [address] 10/26/2024 Natividad Silva Osteoporosis M81.0 ; Hypothyroid E03.9 and Compression fracture of body of thoracic vertebra S22.000A [facility] [address] [facility] [place] [address] 11/30/2024 Natividad Silva COPD exacerbation J4 4.1 [facility] [address] [facility] [place] [address] 01/12/2024 Natividad Silva Anemia, iron deficie ncy D50.9 ; Hypothyroid E03.[address] [facility] [address] [facility] [place] [address] 05/01/2024 Natividad Silva Atherosclerosis of a manda I70.0 ; Class 2 obesity E66.9 and Mild pulmonary hypertension I27.20 [facility] [address] [facility] [place] [place] [address] 12/14/[address] [facility] [address] [facility] [place] [place] [address] 11/05/[address] [facility] [address] [facility] [place] [place] [address] 11/26/[address] [facility] [address] [facility] [place] [address] 11/30/2024 Natividad Silva SOB (shortness of breath) R06.02 [facility] [address] [facility] [place] [address] 12/05/2024 Natividad Silva [facility] [address] [place] [address] 12/05/2024 Natividad Silva COPD exacerbation J4 4.1 [facility] [address] [facility] [place] [address] 12/11/2024 Natividad Silva COPD (chronic obstructive pulmonary disease) J44.9 [facility] [address] [facility] [place] [address] 08/27/[address] [facility] [address] [facility] [place] [place] [address] 09/05/[address] [facility] [address] [facility] [place] [address] 09/27/[address] [facility] [address] [facility] [place] [address] 10/02/2024 Natividad Silva Abnormal findings on diagnostic imaging of other specified body structures R93.89 [facility] [address] [place] [address] 10/03/[address] [facility] [address] [place] [address] 10/26/2024 Natividad Silva Compression fracture of body of thoracic vertebra S22.000A and Osteoporosis M81.0 [facility] [address] [facility] [place] [address] 05/03/[address] [facility] [address] [facility] [place] [address] 05/21/2024 Natividad Silva Migraine G43.909 [facility] [address] [place] [address] 06/07/2024 Joés Hoy [facility] [address] [place] [address] 08/10/2024 Natividad Silva [facility] [address] [place] [address] 08/15/2024 Natividad Silva [facility] [address] [place] [address] 08/27/2024 Natividad Silva Migraine G43.909 [facility] [address] [facility] [place] [address] 01/27/[address] [facility] [address] [facility] [place] [address] 02/06/2024 Natividad Silva Hypothyroid E03.9 [facility] [address] [place] [address] 02/08/2024 José Townsend Screening for breast cancer Z12.31 [facility] [address] [facility] [place] [address] 02/22/[address] [facility] [address] [facility] [place] [address] 03/09/2024 Natividad Silva Migraine G43.909 [facility] [address] [place] [address] 03/19/2024 Natividad Silva Migraine G43.909 [facility] [address] [facility] [place] [address] 01/17/2024 Natividadena Silva Assessments Encounter Date Diagnosis (ICD Code) [...] - G43.909) Toradol 60 norflex 60 10/26/2024 Hypothyroid (ICD-10 - E03.9) 10/26/2024 Osteoporosis (ICD-10 - M81.0) check on continuing infusions at 11/30/2024 COPD exacerbation (ICD-10 - J44.1) continue [...] specified body structures (ICD-10 - R93.89) 10/26/2024 Osteoporosis (ICD-10 - M81.0) 10/26/2024 Compression fracture of body of thoracic vertebra (ICD-10 - S22.000A) 11/30/2024 SOB (shortness of breath) (ICD-10 - R06.02) 12/05/2024 COPD exacerbation (ICD-10 - J44.1) 12/11/2024 COPD (chronic obstructive pulmonary disease) (ICD-10 - J44.9) 01/12/2024 Overweight (ICD-10 - E66.3) 10/26/2024 Compression fracture of body of thoracic [...] Date [employer]ARE ADV PLAN [address] [place] [address] [phone] [id number] Mary Vick Self - patient is [...] Thyroid disorder E07.9 Surgical History Surgery Date(Month/Year) Jaw Surgery HYSTERECTOMY TOTAL APPENDECTOMY Cataract removal and eye lift Ablation lumbar spine Colonoscopy- Dr Parson 04/2024 Hospitalization History Reason Date(Month/Year) migraine 01/13
== END 2024-12-18 13:27 | disposition home or self-care (01) ==
LOC: CARD 13:27
PROVIDERS: PCP Nurse Practitioner Family; Visit Provider Internal Medicine Interventional Cardiology
DX: I08.0 Rheumatic disorders of both mitral and aortic valves (principal)
CPT/HCPCS: 93306

== ENCOUNTER 2025-01-16 10:32 | Outpatient (OUT) | payer MEDICARE, SELFPAY ==
--- OUTSIDE RECORDS SUMMARY | 2025-01-16 10:38 | XMS_ITS | CCD ---
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 HSTROPN, CMP #### [facility] [address] [place] [address] [address] Deborah Mohan Anti-PR3 Antibodies <0.2 Normal 0.0-0.9 [facility] Comment on above: Result Comment: Perf ormed at: BN Performed By: #### B GROCERY PACKER, HSTROPN, CMP #### [facility] [address] [place] [address] [address] Deborah Mohan Atypical pANCA 1:160 Critically high Neg:<1:20 [facility] Comment on above: Result Comment: The atypical pANCA pattern has been observed in a significant percentage of patients with ulcerative colitis, primary sclerosing cholangitis and autoimmune hepatitis. Performed at: CB Performed By: #### B GROCERY PACKER, PHILLIP, CMP #### [facility] [address] [place] [address] Dr. Deborah Mohan Cytoplasmic (C-ANCA) <1:20 Normal Neg:<1:20 [facility] Comment on above: Result Comment: Perf ormed at: CB Performed By: #### B GROCERY PACKER, HSTROPN, CMP #### [facility] [address] [place] [address] [address] Deborah Mohan Perinuclear (P-ANCA) <1:20 Normal Neg:<1:20 [facility] Comment on above: Result [...] Performed at: CB Performed By: #### B GROCERY PACKER, HOLLYTRMICHOACANO, CMP #### [facility] [address] [place] [address] [address] Deborah Mohan ANTISCLERODERMA ABon 10-18-2 022 Antiscleroderma-70 Antibodies <0.2 Normal 0.0-0.9 [facility] Comment on above: Performed By: #### A [facility] #### [facility] [address] [place] [address] [address] CHEST WO CONon [...] incidental findings, as described above. Normal [facility] CYCLIC CITRULLINATED PEPTIDE AB (CCP)on 03-09-2022 CCP Antibodies IgG/IgA 6 units Normal 0-19 [facility] Comment on above: Result Comment: Nega tive <20 Weak positive 20 - 39 Moderate positive 40 - 59 Strong positive >59 Performed By: #### B GROCERY PACKER, HSTROPN, CMP #### [facility] [address] [place] [address] [address] Deborah Mohan IGG SUBCLASSES (1-4) AND TOT Kade 03-09-2022 IgG, Subclass 1 448 mg/dL Normal 248-810 [facility] Comment on above: Performed By: #### B GROCERY PACKER, HSTROPN, CMP #### [facility] [address] [place], [place] [address] Dr. Deborah Mohan IgG, Subclass 2 253 mg/dL Normal 130-555 [facility] Comment on above: Performed By: #### B GROCERY PACKER, HSTROPN, CMP #### [facility] [address] [place], [place] [address] Dr. Deborah Mohan IgG, Subclass 3 95 mg/dL Normal 15-102 [facility] Comment on above: Performed By: #### B GROCERY PACKER, HSTROPN, CMP #### [facility] [address] [place], [place] [address] Dr. Deborah Mohan IgG, Subclass 4 10 mg/dL Normal 2-96 [facility] Comment on above: Performed By: #### B GROCERY PACKER, HSTROPN, CMP #### [facility] [address] [place] [address] [address] Deborah Mohan Immunoglobulin G, Qn, Serum 658 mg/dL Normal 586-1602 [facility] Comment on above: Performed By: #### B GROCERY PACKER, HSTROPN, CMP #### [facility] [address] [place] [address] [address] Deborah Mohan IMMUNOGLOBULIN E, TOTALon Immunoglobulin E, Total 5 IU/mL Critically low 6-495 [facility] Comment on above: Performed By: #### I GETOT ####[facility] [address] [place] [address]Dr. Deborah Mohan MICHELL EIA W/REFLEX 5 BIOMARKER Son 03-08-2022 MICHELL Direct Negative Normal Negative [facility] Comment on above: Performed By: #### A NARF #### [facility] [address] [place] [address] Dr. Deborah Mohan ANGIOTENSION-CONVERTING ENZY ME (FRANCESCO)on 03-08-2022 FRANCESCO 32 U/L Normal 14-82 [facility] Comment on above: Performed By: #### A NGIOC ####[facility] [address] [place] [address]Dr. Deborah Mohan ANTIGLOMERULAR BASEMENT MEMB ROMMEL ABSon 03-08-2022 Anti-GBM Antibodies <0.2 Normal 0.0-0.9 [facility] Comment on above: Performed By: #### A GBM #### [facility] [address] [place] [address] Dr. Deborah Mohan IMMUNOGLOBULIN IGA QUANTITIA VEon 03-06-2022 Immunoglobulin A, Qn, Serum 229 mg/dL Normal 87-352 [facility] Comment on above: Performed By: #### A NARF #### [facility] [address] [place] [address] Dr. Deborah Mohan IMMUNOGLOBULIN IGM QUANTITAT IVEon 03-06-2022 Immunoglobulin M, Qn, Serum 83 mg/dL Normal 26-217 [facility] Comment on above: Performed By: #### B GROCERY PACKER, HSTROPN, CMP #### [facility] [address] [place] [address] [address] Deborah Mohan RHEUMATOID FACTORon 03-06-20 RA Latex Turbid. 10.9 IU/mL Normal <14.0 [facility] Comment on above: Performed By: #### R F ####[facility] [address] [place] [address]Dr. Deborah Mohan CREATININEon 03-05-2022 Creatinine [Mass/Vol] 1.38 mg/dL Critically high 0.55-1.02 [facility] Comment on above: Performed By: #### C MELVINA ####[facility] [address] [place] [address]Dr. Deborah Mohan EGFR-AF BANGLADESHI 46 mL/min/1.73m2 Critically low >=60 [facility] Comment on above: Performed By: #### C MELVINA ####[facility] [address] [place] [address]Dr. Deborah Mohan EGFR-NON AF BANGLADESHI 38 mL/min/1.73m2 Critically low >=60 [facility] Comment on above: Performed By: #### C MELVINA ####[facility] [address] [place] [address]Dr. Deborah Mohan SED RATE WESTERGRENon 2021 SED RATE 92 mm/hr Critically high <=30 [facility] Comment on above: Performed By: #### B GROCERY PACKER, HSTROPN, CMP #### [facility] [address] [place] [address] [address] Deborah Mohan XR DEXA BONE DENSITYon [...] ROBERT CONDON Date: 2022-03-05 16:56 Normal [facility] XR CHEST 1 Von 03-01-2022 XR [...] by: ROBERT NOVAK Date: 2022-02-28 22:27 Normal [facility] XR KNEE LUANA 4V or [...] Moderate degenerative joint disease. Electronically authenticated by: RUADEL ESTRADA Date: 2022-01-29 11:09 Normal [facility] CBC AUTO DIFFon 11-29-2021 BASO # 0.1 103/ul Normal 0.0-0.1 [facility] Comment on above: Performed By: #### C BC ####[facility] [address] [place], [place] [address]VwAnkur Mohan Basophils/100 WBC (Bld) 0.8 % Normal 0.2-2.0 [facility] Comment on above: Performed By: #### C BC ####[facility] [address] [place], [place] [address]MdAnkur Mohan EO # 0.3 103/ul Normal 0.0-0.7 [facility] Comment on above: Performed By: #### C BC ####[facility] [address] [place] [address]Dr. Deborah Mohan Eosinophils/100 WBC (Bld) 2.2 % Normal 0.9-7.0 [facility] Comment on above: Performed By: #### C BC ####[facility] [address] [place] [address]Dr. Deborah Mohan Erythrocyte distribution width (RBC) [Ratio] 21.2 % Critically high 11.0-15.0 [facility] Comment on above: Performed By: #### C BC ####[facility] [address] [place], [place] [address]Dr. Deborah Mohan Hematocrit (Bld) [Volume fraction] 33.2 % Critically low 36.0-48.0 [facility] Comment on above: Performed By: #### C BC ####[facility] [address] [place], [place] [address]DrAnkur Deborah Mohan Hemoglobin (Bld) [Mass/Vol] 10.3 g/dL Critically low 12.0-16.0 [facility] Comment on above: Performed By: #### C BC ####[facility] [address] [place], [place] [address]DrAnkur Deborah Mohan IG # 0.11 10e3/ul Critically high 0.00-0.[address] [facility] Comment on above: Performed By: #### C BC ####[facility] [address] [place], [place] [address]Dr. Deborah Mohan IG % 0.9 % Critically high 0.0-0.5 [facility] Comment on above: Performed By: #### C BC ####[facility] [address] [place], [place] [address]DrAnkur Jacobsenmich Marques LYMPH # 2.2 103/ul Normal 1.2-3.8 [facility] Comment on above: Performed By: #### C BC ####[facility] [address] [place], [place] [address]Dr. Deborah Marques Lymphocytes/100 WBC (Bld) 18.5 % Critically low 20.5-60.0 [facility] Comment on above: Performed By: #### C BC ####[facility] [address] [place] [address]DrAnkur Mohan MANUAL DIFF REQ NO Normal [facility] Comment on above: Performed By: #### C BC ####[facility] [address] [place] [address]DrAnkur Mohan MCH (RBC) [Entitic mass] 26.3 pg Critically low 26.7-34.0 [facility] Comment on above: Performed By: #### C BC ####[facility] [address] [place], [place] [address]DrAnkur Mohan MCHC (RBC) [Mass/Vol] 31.0 g/dL Normal 29.9-35.2 [facility] Comment on above: Performed By: #### C BC ####[facility] [address] [place], [place] [address]DrAnkur Mohan MCV (RBC) [Entitic vol] 84.9 fL Normal 81.0-99.0 [facility] Comment on above: Performed By: #### C BC ####[facility] [address] [place], [place] [address]DrAnkur Mohan MONO # 0.6 103/ul Normal 0.3-0.8 [facility] Comment on above: Performed By: #### C BC ####[facility] [address] [place], [place] [address]DrAnkur Mohan Monocytes/100 WBC (Bld) 5.3 % Normal 1.7-12.0 [facility] Comment on above: Performed By: #### C BC ####[facility] [address] [place], [place] [address]DrAnkur Mohan NEUT # 8.4 103/ul Critically high 1.4-6.5 [facility] Comment on above: Performed By: #### C BC ####[facility] [address] [place], [place] [address]DrAnkur Mohan Neutrophils/100 WBC (Bld) 72.3 % Normal 43.0-75.0 [facility] Comment on above: Performed By: #### C BC ####[facility] [address] [place] [address]Dr. Deborah Mohan Platelet mean volume (Bld) [Entitic vol] 10.1 fL Normal 9.5-13.5 [facility] Comment on above: Performed By: #### C BC ####[facility] [address] [place], [place] [address]Wv. Deborah Mohan PLT 351 103/ul Normal 150-450 [facility] Comment on above: Performed By: #### C BC ####[facility] [address] [place] [address]Dr. Deborah Mohan RBC 3.91 106/ul Critically low 4.20-5.40 [facility] Comment on above: Performed By: #### C BC ####[facility] [address] [place] [address]Dr. Deborah Mohan WBC 11.6 103/ul Critically high 4.0-11.0 [facility] Comment on above: Performed By: #### C BC ####[facility] [address] [place] [address]Dr. Deborah Mohan CTA CHEST WO W CONon 11-29-2 022 CTA CHEST WO W CON EXAMINATION: [...] 2. Bilateral peripheral fibrosis and/or scarring with fudh-fw-srboniug groundglass densities. The groundglass densities are slightly decreased compared to the prior scan. 3. Old calcified granulomas in the chest and abdomen. 4. Large hiatal hernia. 5. Moderate diffuse osteopenia. Electronically authenticated by: BERNARDO DENNY Date: 2021-11-29 20:31 Normal [facility] D-DIMERon 11-29-2021 D-DIMER 1.14 mg/L FEU Critically high <=0.59 [facility] Comment on above: Performed By: #### A NARF #### [facility] [address] [place] [address] Dr. Deborah Mohan D-DIMER COMMENTS SEE BELOW Normal [facility] [...] hospitalization. Performed By: #### A NARF #### [facility] [address] [place] [address] [address] Deborah Mohan PROF CHEM 8 (BAS METB)on Anion gap [Moles/Vol] 11.7 mmol/L Normal [facility] Comment on above: Performed By: #### B MP, HSTROPN #### [facility] [address] [place] [address] [address] Deborah Mohan Calcium [Mass/Vol] 8.7 mg/dL Normal 8.5-10.1 [facility] Comment on above: Performed By: #### B MP, HSTROPN #### [facility] [address] [place] [address] [address] Deborah Mohan Chloride [Moles/Vol] 107 mmol/L Normal 98-107 [facility] Comment on above: Performed By: #### B MP, HSTROPN #### [facility] [address] [place] [address] Dr. Deborah Mohan CO2 [Moles/Vol] 25.3 mmol/L Normal 21.0-32.0 [facility] Comment on above: Performed By: #### B MP, HSTROPN #### [facility] [address] [place] [address] [address] Deborah Mohan Creatinine [Mass/Vol] 0.98 mg/dL Normal 0.55-1.02 [facility] Comment on above: Performed By: #### B MP, HSTROPN #### [facility] [address] [place] [address] [address] Deborah Mohan EGFR-AF BANGLADESHI >60 Normal >=60 [facility] Comment on above: Performed By: #### B MP, HSTROPN #### [facility] [address] [place] [address] [address] Deborah Mohan EGFR-NON AF BANGLADESHI 56 mL/min/1.73m2 Critically low >=60 [facility] Comment on above: Performed By: #### B MP, HSTROPN #### [facility] [address] [place] [address] [address] Deborah Mohan Glucose [Mass/Vol] 105 mg/dL Normal 74-106 [facility] Comment on above: Performed By: #### B MP, HSTROPN #### [facility] [address] [place] [address] [address] Deborah Mohan Potassium [Moles/Vol] 4.0 mmol/L Normal 3.5-5.1 [facility] Comment on above: Performed By: #### B MP, HSTROPN #### [facility] [address] [place] [address] [address] Deborah Mohan Sodium [Moles/Vol] 140 mmol/L Normal 136-145 [facility] Comment on above: Performed By: #### B MP, HSTROPN #### [facility] [address] [place] [address] [address] Deborah Mohan Urea nitrogen [Mass/Vol] 21.0 mg/dL Critically high 7.0-18.0 [facility] Comment on above: Performed By: #### B MP, HSTROPN #### [facility] [address] [place] [address] [address] Deborah Mohan Urea nitrogen/Creatinine [Mass ratio] 21.4 mg/mg Normal [facility] Comment on above: Performed By: #### B MP, HSTROPN #### [facility] [address] [place] [address] Dr. Deborah Mohan TROPONIN, HIGH SENSITIVITYon 11-29-2021 HSTROP 4.5 pg/mL Normal 4.0-51.3 [facility] Comment on above: Result Comment: CUT- OFF POINTS HAVE BEEN ESTABLISHED BASED ON THE FOURTH UNIVERSAL DEFINITIONS OF MYOCARDIAL INFARCTION. THE UPPER REFERENCE LIMIT (URL) OF TROPONIN, DEFINED THE 99TH PERCENTILE OF cTnI DISTRIBUTION IN A REFERENCE POPULATION, HAS BEEN CONFIRMED THE DECISION THRESHOLD FOR [place] DIAGNOSIS. Performed By: #### H STROPN ####[facility] [address] [place] [address]Dr. Deborah Mohan HSTROP 6.0 pg/mL Normal 4.0-51.3 [facility] Comment on above: Result Comment: CUT- OFF POINTS HAVE BEEN ESTABLISHED BASED ON THE FOURTH UNIVERSAL DEFINITIONS OF MYOCARDIAL INFARCTION. THE UPPER REFERENCE LIMIT (URL) OF TROPONIN, DEFINED THE 99TH PERCENTILE OF cTnI DISTRIBUTION IN A REFERENCE POPULATION, HAS BEEN CONFIRMED THE DECISION THRESHOLD FOR [place] DIAGNOSIS. Performed By: #### B MP, HSTROPN #### [facility] [address] [place] [address] [address] Deborah Mohan XR CHEST 1 Von [...] KANDY BARRY Date: 2021-11-29 19:20 Normal [facility] XR LSPINE W_OBLS AND FLEX_EX Ton [...] RAUDEL ESTRADA Date: 2021-11-12 07:56 Normal [facility] CALCIUMon 11-11-2021 Calcium [Mass/Vol] 9.0 mg/dL Normal 8.5-10.1 [facility] Comment on above: Performed By: #### A NARF #### [facility] [address] [place], [place] [address] Dr. Deborah Mohan CREATININEon 11-11-2021 Creatinine [Mass/Vol] 1.47 mg/dL Critically high 0.55-1.02 [facility] Comment on above: Performed By: #### A NARF #### [facility] [address] [place], [place] [address] Dr. Deborah Mohan EGFR-AF BANGLADESHI 43 mL/min/1.73m2 Critically low >=60 [facility] Comment on above: Performed By: #### A NARF #### [facility] [address] [place] [address] [address] Deborah Mohan EGFR-NON AF BANGLADESHI 35 mL/min/1.73m2 Critically low >=60 [facility] Comment on above: Performed By: #### A NARF #### [facility] [address] [place] [address] [address] Deborah Mohan Vital Signs Date Time Vital Sign Value Performing Clinician James johns 03-20-2024 14:57-0400 Blood Pressure Location [facility] 03-20-2024 14:57-0400 Diastolic blood pressure 82 mm[Hg] [facility] 03-20-2024 14:57-0400 Heart rate 70 /min [facility] 03-20-2024 14:57-0400 Respiratory rate 16 /min [facility] 03-20-2024 14:57-0400 Systolic blood pressure 126 mm[Hg] [facility] Encounters Encounter Date Encounter Type Care Provider Facility Start: 12-10-2024 End: 12-10-2024 ambulatory Natividad Silva Facility:[facility] Start: 12-10-2024 Non-patient / Non-visit Dima Barahona MD -[facility] Work Phone: Start: 10-22-2024 End: 10-22-2024 ambulatory Gabriella Woodruff MD Facility:[facility] Start: 04-25-2024 End: 04-25-2024 ambulatory Anderson PULLIAM Facility:CD:[id number] Start: 03-20-2024 End: 03-20-2024 ambulatory Luisito Townsend Facility:[facility] Start: 03-20-2024 End: 03-20-2024 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 procedure Anderson PULLIAM [facility] [place] Start: 02-10-2024 ambulatory Luisito Townsend Facility:[facility] Start: 11-28-2023 End: 11-28-2023 ambulatory [facility] Start: 10-18-2023 End: 10-18-2023 ambulatory [facility] Start: 10-05-2022 End: 10-06-2022 ambulatory [...] Facility: [facility] Start: 05-08-2022 End: 05-08-2022 ambulatory [employer]C Clarita Barrett Work Phone: [facility] Work Phone: Start: 05-08-2022 End: 05-08-2022 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 procedure [employer]AC[employer]-C Clarita Barrett Work Phone: [facility] Start: 04-08-2022 End: 04-09-2022 ambulatory JOEL RAMON . Facility:[facility] Start: 04-07-2022 End: 04-07-2022 ambulatory NATIVIDAD SILVA Facility:[facility] Start: 03-16-2022 End: 03-16-2022 ambulatory NATIVIDAD RIGGINSMER Facility:[facility] Start: 03-12-2022 End: 03-13-2022 ambulatory NATIVIDAD SILVA Facility:[facility] Start: 03-09-2022 End: 03-10-2022 ambulatory NATIVIDAD RIGGINSMER Facility:[facility] Start: 03-05-2022 End: 03-06-2022 ambulatory NATIVIDADLUCIO RIGGINSMER Facility:[facility] Start: 02-28-2022 End: 03-01-2022 ambulatory NATIVIDADLUCIO RIGGINSMER Facility:[facility] Start: 01-29-2022 End: 01-30-2022 ambulatory JOEL RAMON . Facility:[facility] Start: 01-28-2022 End: 01-29-2022 ambulatory JOEL RAMON . Facility:[facility] Start: 11-29-2021 End: 11-30-2021 ambulatory NATIVIDAD SILVA Facility:[facility] Start: 11-11-2021 End: 11-13-[address] LUISITO TOWNSEND . Facility:[facility] Start: 11-05-2021 End: 11-06-2021 ambulatory JOEL RAMON . Facility:[facility] Start: 04-01-2018 End: 04-01-2018 Emergency department patient visit BRANDON GAINESRING [facility] Start: 12-11-2017 End: 12-11-2017 Emergency department patient visit ROBERT HURLEY Facility:[facility] Procedures Date Procedure Procedure Detail Performing Clinician Start: 05-08-2022 Plain X-ray of left wrist [employer] Clarita Barrett Work Phone: Start: 05-08-2022 X-ray of left ankle [employer] -C Clarita Barrett Work Phone: Start: 04-01-2018 IP CONSULT TO ORAL SURGERY BRANDONNATACHA RUSSELL Start: 03-14-2013 Colonoscopy Anderson AGOSTO Appendectomy Anderson PULLIAM Blepharoplasty Anderson PULLIAM Bone structure of ma ndible (body structure) Anderson VILLANUEVAL Dilation and curettage Dakota jenkins NILL Extraction of cataract Dakota VILLANUEVAL Ligation of fallopian tube Kyree VILLANUEVAL Total abdominal hysterectomy with bilateral salpingo-oophorectomy Anderson VILLANUEVAL Payers Date Payer Category Payer Self-pay 2023 Unknown 1961 Unknown [id number] Unknown [id number] [id number] 1955 Unknown [id number] [id number] 1955 Unknown [id number] 2.16.84 0.1.399473.3.579.2.593 1955 Unknown [id number] 2.16.84 0.1.042632.3.579.2.593 1955 Unknown [id number] 2.16.84 0.1.989229.3.579.2.593 1953 Unknown [id number] 2.16.84 0.1.886362.3.579.2.593 1953 Unknown [id number] 2.16.84 0.1.041264.3.579.2.593 1953 Unknown [id number] 2.16.84 0.1.161820.3.579.2.593 1953 Unknown [id number] 2.16.84 0.1.261200.3.579.2.593 1953 Unknown [id number] 2.16.84 0.1.844357.3.579.2.593 1953 Unknown [id number] 2.16.84 0.1.862024.3.579.2.593 1953 Unknown [id number] 2.16.84 0.1.699341.3.579.2.593 1953 Unknown [id number] 2.16.84 0.1.773098.3.579.2.593 1953 Unknown [id number] 2.16.84 0.1.116818.3.579.2.593 1953 Unknown [id number] 2.16.84 0.1.593172.3.579.2.593 1953 Unknown [id number] 2.16.84 0.1.116146.3.579.2.593 1953 Unknown [id number] 2.16.84 0.1.224783.3.579.2.593 1953 Unknown [id number] 2.16.84 0.1.144235.3.579.2.593 1953 Unknown [id number] 2.16.84 0.1.961177.3.579.2.593 1953 Unknown [id number] 2.16.84 0.1.793393.3.579.2.593 1953 Unknown [id number] 2.16.84 0.1.667024.3.579.2.593 1953 Unknown [id number] 2.16.84 0.1.767266.3.579.2.593 1953 Unknown [id number] 2.16.8 40.1.344364.3.579.2.727 1953 Unknown [id number] 2.16.8 40.1.510784.3.579.2.727 1955 Unknown [id number] 2.16. 840.1.211333.3.579.2.196 Medicare [id number] Medicare Medicare [id number] Unknown [facility] [id number] Unknown [place]/BS [id number] Unknown [id number] 2.16.8 40.1.442495.3.579.2.531 Social History Date Type Detail Facility [facility] Work Phone: Start: 1955 Sex Assigned At Female [facility] Start: 03-20-2024 Tobacco smoking status Ex-smoker (fi nding) [facility] Tobacco smoking status Never [facility] Sex Assigned At Female [facility] Start: 01-06-2024 Tobacco smoking stat [facility] Never smoked tobacco (finding) [facility] Sex Female (finding) [facility] Functional Status Date Assessment Result Facility 03-20-2024 Functional Status N/A [facility] Clinical Notes 11-05-2021 to 03-20-2024 [...] 1 tab(s), Or (more content not included)... [facility] Comment on above: Result Comment: Elec tronically Signed By: SHASHA GRANT, [place] Quick\Date and Time Signed: 03/20/24 16:53 EDT 11-28-2023 Note [facility] Cardiology Clinic Note Chief Complaint: [...] mouth in the morning., Disp: , Rfl: qidwfyfbsm-ggvdttznjtsth-prlb 50-325-40 mg tablet, Take 1 tablet by [...] sinus rhythm Echocar (more content not included)... [facility] 10-18-2023 Note [facility] Cardiology Clinic Note Chief Complaint: New patient here to establish care. Ref from Dr. Townsend for abnormal EKG. She also wore 7 day Holter monitor, and says she did not work while wearing this. She works at [employer] and says it's very fast paced. States she drinks a 5 Hour Energy shot almost every day. She was admitted to [facility] for migraine recently and was found to have abnormal EKG. Recently has noticed a twinge of chest pain. C/o DAI, palpitations, and lightheadedness. HPI: Mary Vick is a 68 y.o. female With a history of hypertension and hypothyroidism who presents due to an abnormal Holter monitor She was [facility]; a monitor revealed both [...] Plan: Routine labs (more content not included)... [facility] 07-08-2022 Note CONSULTATION PROCEDURE DATE: 07/08/2022 HISTORY [...] in the clinic in three months. [facility] 06-24-2022 Note CONSULTATION CONSULTATION DATE: 06/24/2022 [...] at a time, as she works at [employer]. Current medications include Percocet 5/325 daily, diclofenac [...] pending approval for her knee injections. [facility] 04-08-2022 Note CONSULTATION CONSULTATION DATE: 04/08/2022 [...] three months' time unless otherwise indicated. [facility] 03-09-2022 Note CONSULTATION CONSULTATION DATE: 03/09/2022 [...] to proceed. CC: Natividad Silva CNP [facility] 01-28-2022 Note CONSULTATION CONSULTATION DATE: 01/30/2022 [...] and re-evaluation of her bursa injection. [facility] 01-28-2022 Note CONSULTATION PROCEDURE DATE: 01/30/2022 [...] be followed up in the clinic. [facility] 11-12-2021 Note PROCEDURE: XR HIPS B [...] authenticated by: RAUDEL ESTRADA Date: 2021-11-12 07:50 [facility] 11-05-2021 Note CONSULTATION PROCEDURE DATE:11/05/2021 [...] will be followed up in the office. [facility] Signed and Approved by: JOEL RAMON . 11/18/2021 16:24:00 [facility] 11-05-2021 Note CONSULTATION CONSULTATION DATE: [...] time, was working half a day at [employer] and since then has increased to full [...] in three months' time unless otherwise indicated. [facility] Signed and Approved by: JOEL RAMON . 11/18/2021 16:24:00 [facility] Evaluation + Plan note No data available for this section [facility] Evaluation note No assessment inform ation available [facility] Work Phone: Hospital Discharge instructions No data available for this section [facility] Progress note No data available for this section [facility] Reason for referral (narrative) No reason for referral information available [facility] Work Phone: Summary Purpose Family History No Family History Records Found Relationship Condition Age at Onset Recorded Date/T alan father Unknown mother Unknown Malignant neoplasm Unknown sister Malignant neoplasm Unknown Unknown Advance Directives No Advanced Directives Records Found Advance Directive Response Recorded Date/ Time Advance Directives No April 5:54pm Chief Complaint and Reason for Visit Chief Complaint Admit Date J44.1 December 10, 2024 12:2 1pm Additional Source Comments INFORMATION SOURCE (unrecogn ized section and content) DATE CREATED AUTHOR 12/21/2017 [facility] DATE CREATED AUTHOR AUTHOR'S ORGANIZ ATION 05/01/2018 [facility] DATE CREATED AUTHOR AUTHOR'S ORGANIZ ATION 10/06/2022 [facility] DATE CREATED AUTHOR AUTHOR'S ORGANIZ ATION 11/28/2023 [facility] DATE CREATED AUTHOR AUTHOR'S ORGANIZ ATION 05/03/2024 [facility] DATE CREATED AUTHOR AUTHOR'S ORGANIZ ATION 10/29/2024 [facility] DATE CREATED AUTHOR AUTHOR'S ORGANIZ ATION 12/26/2024 [facility] Care Teams (unrecognized sec tion and content) Team Status: Inactive Member Role Status Dates SILVA Johnson Attending Provider Active Team Status: Active Member Role Status Dates Natividad Silva NP-Ren Primary Care Provider Active Team Status: Active Member Role Status Dates Natividad Silva NP-Ren Primary Care Provider Active Start: December 10, 2024 Natividad Silva NP-Ren Other Provider Active S tart: December 10, 2024 Dima Barahona MD Attending Provider Active Start: December 10, 2024 Goals (unrecognized section and content) Goals may be documented in a n alternate section No data available for this sectionGoals may be documented in an alternate section FOR RECORDS PERTAINING TO PATIENTS [...] BE BASED ON THE PRIMARY CLINICAL RECORDS. [facility]. provides no warranty or guarantee of the accuracy or completeness of information in this document.
--- NOTE | 2025-01-16 11:25 | PM.CN ---
Consult Note: HPI Data of Consult Patient: known to practice within the last 3 years Consult date: 01/16/25 Requesting Physician: Shweta Crowley NP Primary Care Provider: POLO SILVA Consult Narrative Reason for consult: knee pain and low back pain Narrative: Emiliana Vick a pleasant 69 year old female presents for evaluation of chronic pain, hx of OA affecting numerous joints including bilateral knees as well as chronic neck and low back pain. currently utilizing tylenol, diclofenac, percocet PRN. NEYMAR 51%. pt has failed to benefit from > 6 weeks of provider guided HEP and historically PT. since last visit was evaluated by Dr Pereira and team, utilizing back brace due to compression fracture at T10. unfortunately due to overtaking her opioids we converted her to a NNCP. cc:: CC: Shweta Crowley NP Review of Systems ROS Status of ROS 10 or more systems reviewed and unremarkable except as noted in history and below Musculoskeletal Reports: back pain and joint pain PFSH PFS Medical History Syncopal episodes ?R55 - Syncope and collapse (ICD-10) Pneumonia ?J18.9 - Pneumonia, unspecified organism (ICD-10) Restless leg ?G25.81 - Restless legs syndrome (ICD-10) Dyspnea on exertion ?R06.09 - Other forms of dyspnea (ICD-10) Bilateral pulmonary contusion ?S27.322A - Contusion of lung, bilateral, initial encounter (ICD-10) Closed rib fracture ?S22.39XA - Fracture of one rib, unspecified side, initial encounter for closed fracture (ICD-10) Fall ?W19.XXXA - Unspecified fall, initial encounter (ICD-10) Chin contusion ?S00.83XA - Contusion of other part of head, initial encounter (ICD-10) Laceration of lip ?S01.511A - Laceration without foreign body of lip, initial encounter (ICD-10) Fracture of wrist ?S62.109A - Fracture of unspecified carpal bone, unspecified wrist, initial encounter for closed fracture (ICD-10) Macular degeneration ?H35.30 - Unspecified macular degeneration (ICD-10) Seasonal allergies ?J30.2 - Other seasonal allergic rhinitis (ICD-10) Anemia ?D64.9 - Anemia, unspecified (ICD-10) Lumbar radiculopathy ?M54.16 - Radiculopathy, lumbar region (ICD-10) Muscle spasm ?M62.838 - Other muscle spasm (ICD-10) Lumbar spondylosis ?M47.816 - Spondylosis without myelopathy or radiculopathy, lumbar region (ICD-10) Thoracic spondylosis ?M47.814 - Spondylosis without myelopathy or radiculopathy, thoracic region (ICD-10) Bilateral sacroiliitis ?M46.1 - Sacroiliitis, not elsewhere classified (ICD-10) Chronic, continuous use of opioids ?F11.90 - Opioid use, unspecified, uncomplicated (ICD-10) Greater trochanteric bursitis of both hips ?M70.61 - Trochanteric bursitis, right hip (ICD-10) ?M70.62 - Trochanteric bursitis, left hip (ICD-10) Encounter for long-term opiate analgesic use ?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.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 - 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 of opiate analgesic (ICD-10) Bilateral primary osteoarthritis of knee ?M17.0 - Bilateral primary osteoarthritis of knee (ICD-10) Acute opioid intoxication ?F11.929 - Opioid use, unspecified with intoxication, unspecified (ICD-10) Tubal ligation evaluation ?Z01.818 - Encounter for other preprocedural examination (ICD-10) Colonoscopy planned Headache, migraine ?G43.909 - Migraine, unspecified, not intractable, without status migrainosus (ICD-10) SVT (supraventricular tachycardia) ?I47.10 - Supraventricular tachycardia, unspecified (ICD-10) Screening for colorectal cancer ?Z12.11 - Encounter for screening for malignant neoplasm of colon (ICD-10) ?Z12.12 - Encounter for screening for malignant neoplasm of rectum (ICD-10) COPD (chronic obstructive pulmonary disease) ?J44.9 - Chronic obstructive pulmonary disease, unspecified (ICD-10) Migraine ?G43.909 - Migraine, unspecified, not intractable, without status migrainosus (ICD-10) Loud snoring ?R06.83 - Snoring (ICD-10) Osteoarthritis ?M19.90 - Unspecified osteoarthritis, unspecified site (ICD-10) Neck pain ?M54.2 - Cervicalgia (ICD-10) Bipolar 1 disorder ?F31.9 - Bipolar disorder, unspecified (ICD-10) Hearing deficit ?H91.90 - Unspecified hearing loss, unspecified ear (ICD-10) Anxiety ?F41.9 - Anxiety disorder, unspecified (ICD-10) Acid reflux ?K21.9 - Gastro-esophageal reflux disease without esophagitis (ICD-10) Obesity ?E66.9 - Obesity, unspecified (ICD-10) Hypothyroid ?E03.9 - Hypothyroidism, unspecified (ICD-10) Pulmonary hypertension ?I27.20 - Pulmonary hypertension, unspecified (ICD-10) Sleep apnea ?G47.30 - Sleep apnea, unspecified (ICD-10) High cholesterol ?E78.00 - Pure hypercholesterolemia, unspecified (ICD-10) Hypertension ?I10 - Essential (primary) hypertension (ICD-10) Surgical History History of colonoscopy ?Z98.890 - Other specified postprocedural states (ICD-10) H/O bilateral salpingo-oophorectomy ?Z90.79 - Acquired absence of other genital organ(s) (ICD-10) ?Z90.722 - Acquired absence of ovaries, bilateral (ICD-10) H/O dilation and curettage ?Z98.890 - Other specified postprocedural states (ICD-10) Cataract extraction status ?Z98.49 - Cataract extraction status, unspecified eye (ICD-10) H/O blepharoplasty ?Z98.890 - Other specified postprocedural states (ICD-10) History of mandibular surgery ?Z98.890 - Other specified postprocedural states (ICD-10) Hx of tubal ligation ?Z98.51 - Tubal ligation status (ICD-10) History of appendectomy ?Z90.49 - Acquired absence of other specified parts of digestive tract (ICD-10) History of hysterectomy ?Z90.710 - Acquired absence of both cervix and uterus (ICD-10) Family History Mother Family history of cancer Sister Family history of cancer Other Delayed recovery from anesthesia Family history of breast cancer Family history of lung cancer Social History Within the past year, how often did you have a drink containing alcohol: never Score interpretation: A score less than 3 is consistent with normal alcohol consumption. Smoking status: Former smoker Non-prescribed substance use: denies use Previous occupational history: [employer] Highest level of school completed/degree received: 11th grade Are you now , , , , never or living with a partner: In a typical week, how many times do you talk on the telephone with family, friends, or neighbors: 3 or more times per week How often do you get together with friends or relatives: 3 or more times per week How often do you attend zoroastrianism or spiritism services: 4 or more times per year Do you belong to any clubs or organizations such as zoroastrianism groups unions, [employer] or athletic groups, or school groups: no Total score: 2 Score interpretation: A score of greater than or equal to 2 indicates the lowest level of social isolation. Little interest or pleasure in doing things: not at all Feeling down, depressed, or hopeless: not at all Feel stressed/tense/nervous/anxious/difficulty sleeping: not at all Do you think of yourself as: straight/heterosexual Gender Identity: female Meds Home Medications and Allergies Home Medications ?Medication ?Instructions ?Recorded ?Confirmed ?Type albuterol sulfate 90 mcg/actuation 2 inh inhalation Q6H PRN shortness 10/21/22 10/25/24 History breath activated powder inhaler of breath or wheezing aripiprazole 30 mg tablet (Abilify) 30 mg PO QDAY 10/21/22 10/25/24 History diclofenac sodium 50 mg 50 mg PO BID 10/21/22 10/25/24 History tablet,delayed release ropinirole 1 mg tablet 1 mg PO QDAY PRN restless leg(s) 10/21/22 10/25/24 History levothyroxine 50 mcg tablet 50 mcg PO QDAY #30 tabs 09/17/23 10/25/24 Rx (Euthyrox) ferrous sulfate 325 mg (65 mg 325 mg PO DAILY 04/12/24 10/25/24 History iron) tablet (Holly-Time) fluticasone fur. 100 mcg-umeclid 1 inh inhalation DAILY 04/12/24 10/25/24 History 62.5 mcg-vilant 25 mcg inhalat.powder (Trelegy Ellipta) magnesium 250 mg tablet 250 mg PO DAILY 04/12/24 10/25/24 History vitamins A,C,U-jchq-nllgtz 4,296 1 cap PO DAILY 04/12/24 06/17/24 History mcg-226 mg-90 mg capsule (PreserVision AREDS) amitriptyline 50 mg tablet 50 mg PO .qhs 06/06/24 10/25/24 History baclofen 5 mg tablet 5 mg PO QDAY PRN IF NEEDED FOR 06/06/24 10/25/24 History SKELETAL MUSCULAR PAIN fluoxetine 20 mg capsule 80 mg PO .QD 06/06/24 10/25/24 History liothyronine 5 mcg tablet 5 mcg PO .QD 06/06/24 10/25/24 History lisinopril 40 mg tablet 40 mg PO .QD 06/06/24 10/25/24 History omeprazole 20 mg capsule,delayed 20 mg PO BID 06/06/24 10/25/24 History release oxycodone-acetaminophen 5 mg-325 1 tab PO Q6H PRN pain 7 days #28 06/07/24 10/25/24 Rx mg tablet tabs potassium 99 mg tablet 99 mg PO DAILY 06/08/24 10/25/24 History oxycodone-acetaminophen 5 mg-325 1 tab PO Q4H PRN pain 7 days #40 06/11/24 Rx mg tablet (Percocet) tabs oxycodone-acetaminophen 5 mg-325 1 tab PO DAILY PRN pain #30 tabs 06/28/24 Rx mg tablet (Percocet) oxycodone-acetaminophen 5 mg-325 1 tab PO DAILY PRN pain #30 tabs 09/03/24 Rx mg tablet (Percocet) ibuprofen 800 mg tablet 800 mg PO Q8H PRN pain #20 tabs 10/25/24 Rx oxycodone-acetaminophen 5 mg-325 1 tab PO BID PRN pain #60 tabs 10/29/24 Rx mg tablet (Percocet) Allergies Allergy/AdvReac Type Severity Reaction Status Date / Time sumatriptan (From Imitrex) Allergy Severe Palpitation Verified 10/25/24 09:34 s Exam Constitutional Documenting provider has reviewed patient's vital signs: yes Common normals: no apparent distress, oriented x3, healthy appearing, alert and well nourished General appearance: cooperative HENMT Common normals: normocephalic, hearing grossly normal bilaterally and moist oral mucous membranes Head and scalp: normocephalic Eye Common normals: PERRL Pupil: PERRL Neck & C-Spine Common normals: full ROM General: normal visual inspection Chest Common normals: inspection of chest normal Respiratory Common normals: normal respiratory effort, no retractions and no use of accessory muscles Back & Pelvis Thoracic spine/upper back: ROM limited, pain with ROM and thoracic spinal tenderness Lumbar spine/lower back: ROM limited, pain with ROM and lumbar spinal tenderness Extremity Right lower extremity: knee joint Left lower extremity: knee joint Other: bilateral knees moderate crepitus, pain with medial and lateral stress testing, no instability noted. moderate edema without redness or hot to touch. Neuro Common normals: oriented x3 Sensorium/orientation: alert Psych Common normals: mental status grossly normal, thought process normal, cooperative, affect normal, speech normal and activity/motor behavior normal Speech: normal speech Thought process: normal thought process Results Additional Findings Additional findings: If on a controlled substance or opioids, I have checked an [place]AR[place] report on this patient and there are no aberrancies noted in the prescribing history.??If on a controlled substance or opioid a drug screen was completed and reviewed within the last year, and if there has not been a drug screen completed we ordered one today to monitor higher risk, state monitored pain medication use. As part of providing excellent, safe, comprehensive care, the following was completed at our patient's visit: 1. A medication reconciliation and review to ensure accurate knowledge of current/active medications, including asking our patients to inform us about any zvhc-uez-zplhgbd medications or herbal remedies/nutritional supplements/alternative remedies. 2. A review to specifically ensure our patients have had annual screening for screening for depression, screening for tobacco use, and screening for unhealthy alcohol use. For concerning screenings had a discussion with the patient, provided patient education, and recommended follow-up with primary care provider when appropriate. If patient noted with a risk of falling, they received education on strength, gait, and balance training to prevent future risk of falling. Portions of this note may have been carried over from the previous visit and updated as appropriate. Please note this office utilizes paper charting in addition to the electronic medical record. A list of current medications, vitals, and PMH is available there as the clinical staff outside of myself do not have access to [employer] charting during the clinic day operations. As part of providing quality comprehensive care the current medications, vitals, and PMH were reviewed in the paper chart. Assessment and Plan Assessment and Plan (1) Bilateral primary osteoarthritis of knee: Assessment and Plan: declining repeat bilateral knee injections, notes >50% improvement ongoing (2) Chronic prescription opiate use: Assessment and Plan: converted to NNCP due to overtaking opioids (3) Lumbar spondylosis: (4) Thoracic spondylosis: (5) Muscle spasm: Plan continue diclofenac 75mg BID PRN pain, risks vs benefits reviewed continue otc tylenol PRN pt advised to contact Dr Pereira and team if back pain does not improve, has noticed improvement with time and bracing f/u 3 months, sooner if needed
== END 2025-01-16 10:33 | disposition home or self-care (01) ==
LOC: PM 10:33
PROVIDERS: PCP Nurse Practitioner Family; Visit Provider Nurse Practitioner
DX: M17.0 Bilateral primary osteoarthritis of knee (principal); Z79.891 Long term (current) use of opiate analgesic; M47.816 Spondylosis without myelopathy or radiculopathy, lumbar region; M47.814 Spondylosis without myelopathy or radiculopathy, thoracic region; M62.838 Other muscle spasm
CPT/HCPCS: G0463

== ENCOUNTER 2025-01-21 14:06 | Emergency (ER) | payer MEDICARE, SELFPAY ==
--- OUTSIDE RECORDS SUMMARY | 2024-12-11 12:16 | XMS_ITS ---
Author Organization The [facility] in [place] Address [address] [place] [address] Care Team Providers Care Regional Environmental Manager Name Role Phone Karine Natividad Primary Care Provider [phone] Reason For Referral Diagnosis 1 COPD (chronic obstru ctive pulmonary disease) (J44.9) Referral Organization [facility] Referring Provider First Name Natividad Referring Provider [...] confirmed Encounters Encounter Location Date Provider Diagnosis [facility] [address] [place] [address] 12/11/2024 Natividad Milton COPD (chronic obstructive pulmonary [...] * Mary TOMPKINS MDOB:1955 (69 yo F)Acc No.[id number]:12/11/2024 Patient: Mary DURANT :1955 A ge:69 Y S ex:Female Address:[address] [place] [address] * Refills Start Albuterol Sulfate Nebulization Solution, [...] Date: Generated for Nelda valdez/Michelle/eTransmitting on: 0 01/21/2025 02:20 PM EDT Consultation Request Notes Referral Date Referring Provider Referred Provider Not es 12/11/2024 Natividad Milton LeAnne
--- OUTSIDE RECORDS SUMMARY | 2024-12-14 10:03 | XMS_ITS ---
Author Organization The [facility] in [place] Address [address] [place] [address] Care Team Providers Care Funeral Attendant Name Role Phone Natividad Milton Primary Care Provider REASON FOR VISIT dexa Encounters Encounter Location Date Provider Diagnosis [facility] [address] [place] [address] 12/14/2024 Natividad Milton Plan Of Treatment No Information Progress Notes * Mary TOMPKINS MDOB:1955 (69 yo F)Acc No.[id number]:12/14/2024 Patient: Massimo PRAKASHMary :1955 A ge:69 Y S ex:Female Address:[address] [place] [address] [place] [address] * true * Date: Generated for Printi ng/Faxing/eTransmitting on: 0 01/21/2025 02:20 PM EDT
--- OUTSIDE RECORDS SUMMARY | 2024-12-24 05:00 | XMS_ITS ---
Author Organization [facility] [place] Address [address] [place] [address] Care Team Providers Care Drafter Apprentice Name Role Phone Natividad Milton Primary Care Provider Allergies Allergen (clinical drug ingredient) Drug/Non Drug Allergy documented on EMR Reaction Allergy Type Onset Date Status sumatriptan Imitrex dizziness/fainte d Drug Allergy Active REASON FOR VISIT anxiety- said she is holding her breath and she cant stop doing it, Has not taken her BP med today yet Medications Medication SIG (Take, Route, Frequency, Duration) Notes Start Date End Date Status Levothyroxine Sodium 50 MCG 1 tablet in the morning on an empty stomach Orally Once a day for 90 days Active Ondansetron HCl 4 MG 1 tablet Orally Once a day prn for 14 days PRN 02/29/2024 Active Omeprazole Magnesium 20 MG 1 tablet 1/2 to 1 hour before morning meal Orally Once a day for 30 days Active Omeprazole 20 MG 1 capsule 1/2 to 1 hour before morning meal Orally BID for 30 days 08/27/2024 Active Lisinopril 20 MG 1 tablet Orally Once a day for 30 days Active Ketorolac Tromethamine 10 MG 1 tablet with food or milk as needed Orally every 8 hrs prn for 3 days hold diclofenac, ibuprofen while taking start 10/27/24 10/26/2024 Active Ferrous Sulfate 325 (65 Fe) MG 1 tablet Orally Three times a Week for 30 days 01/31/2024 Active Diclofenac Sodium 50 MG 1 tablet Orally Twice a day Active Baclofen 5 MG 1 -2 tablet as needed Orally Once a day for 14 days 02/29/2024 Active Trelegy Ellipta 100-62.5-25 MCG/ACT 1 puff Inhalation Once a day for 30 days 04/09/2024 Active Albuterol Sulfate (2.5 MG/3ML) 0.083% 3 mL as needed Inhalation every 6 hrs for 14 days Active Abilify 30 MG 1 tablet Orally Once a day for 90 days Active rOPINIRole HCl 1 MG 1 tablet 1 to 3 hours before bedtime Orally Once a day for 30 days Active busPIRone HCl 7.5 MG 1 tablet Orally Twice a day for 30 days 12/24/2024 Active PROzac 20 MG 4 capsule Orally once daily for 90 days Active oxyCODONE-Acetaminophe n 5-325 MG Oral for 30 Days Active Social History Tobacco Use: Social History [...] Problem Status W/U Status Risk Notes Problem Heart failure (87030984) Heart failure, unspecified (I50.9) Active confirmed Problem Anxiety (01715169) Anxiety (F41.9) Active confirmed Vital Signs Weight 191.4 lbs 12/24/2024 Height 62 in 12/24/2024 Blood pressure systolic 158 mm Hg 12/25/19 25 Blood pressure diastolic 98 mm Hg 025 Heart Rate 80 /min 12/24/2024 BMI 35 kg/m2 12/24/2024 Oximetry 94 % 12/24/2024 Encounters Encounter Location Date Provider Diagnosis [facility] [address] [place] [address] 12/24/2024 Natividad Karine Heart failure, unspecified I50.9 ; Anxiety F41.9 and Mild pulmonary hypertension I27.20 Assessments Encounter Date Diagnosis (ICD Code) Assessment Notes Treatment Notes Treatment Clinical Notes Section Notes 12/24/2024 Heart failure, unspecified (ICD-10 - I50.9) follows with cardiology 12/24/2024 Anxiety (ICD-10 - F41.9) stop amitrip, discussed with patient, verbalizes understanding said taking for sleep but doesnt think helps much trial of buspirone, stop if SE fu 1m, prn 12/24/2024 Mild pulmonary hypertension (ICD-10 - I27.20) follows with cardiology upcoming pulm apt Plan Of Treatment Medication Medication Name Sig Start Date Stop Date Notes Amitriptyline HCl 50 mg TAKE 1 TABLET BY MOUTH AT BEDTIME busPIRone HCl 7.5 MG 1 tablet Orally Twi ce a day for 30 days 12/24/2024 Treatment Notes Assessment Notes Heart failure, unspecified follows with cardiology Anxiety stop amitrip, discussed with patient, verbalizes understanding said taking for sleep but doesnt think helps much trial of buspirone, stop if SE fu 1m, prn Mild pulmonary hypertension follows with cardiology upcoming pulm apt Next Appt Details Follow Up: 4 Weeks,prn, Reas on: Progress Notes * Mary TOMPKINS MDOB:1955 (69 yo F)Acc No.[id number]:12/24/2024 Progress Note Patient: Mary DURANT Provider: Giovana Milton ([facility]), TIMBER HARVESTER OPERATOR :1955 A ge:69 Y S ex:Female Date:12/24/2024 Address:[address] [place] [address] [facility] [phone] Check In:08:37 AM ESTCheck O ut:09:01 AM EST Subjective: * Chief Complaints: * 1 . Anxiety- said she is holding her breath and she cant stop doing it. 2. Has not taken her BP med today yet. * HPI: G eneral: pulmonology upcoming anxiety most of life prozac and added abilify- helped a lot bad rxn xanax in past feels like SOB, related to anxiety anxious about returning to work, its been 6m counseling in past, and psych in past, not currently. * ROS: G eneral/Constitutional: Anxiety a dmits. F ever d enies. H eadache d enies. W eight loss d enies. O phthalmologic: [...] enies. S hortness of breath a dmits, finds self holding her breath or breathing too fast. W heezing d enies. G astrointestinal: Abdominal [...] Active Problem List J44.1 COPD exacerbation Modified On:08/23/2022U Status:confirmed U07.1 COVID Modified On:08/24/2022 Status:confirmed M81.0 Age-related osteopor osis without current pathological fracture Modified On:11/18/2022U Status:confirmed K44.9 Diaphragmatic hernia without obstruction or gangrene Modified On:04/19/2023U Status:confirmed G47.00 Insomnia Modified On:09/02/2023U Status:confirmed R93.89 Abnormal findings on diagnostic imaging of other specified body structures Modified On:09/06/2023U Status:confirmed G43.909 Migraine Modified On:09/15/2023U Status:confirmed F41.8 Anxiety and depressi on Modified On:10/05/2023U Status:confirmed K21.9 GERD (gastroesophage al reflux disease) Modified On:10/05/2023U Status:confirmed D50.9 Anemia, iron deficie ncy Modified [...] E03.9 Acquired hypothyroid ism Modified On:06/28/2024 Status:confirmed J44.9 COPD (chronic obstru ctive pulmonary disease) Modified On:12/11/2024 Status:confirmed I50.9 Heart failure, unspe cified Modified On:12/24/2024 Status:confirmed F41.9 Anxiety Modified On:12/24/2024 Status:confirmed * Medical History: R estless legs, [...] Parson 04/2024. * Hospitalization/Major Diagno stic Procedure: doug walker 01/13. * Family History: F ather: 40 yrs. M other: , Lung cancer, diagnosed with Other malignant neoplasm of unspecified site. B rother(s): alive. S ister(s): , Lung cancer, diagnosed with Other malignant neoplasm of unspecified site. S on(s): alive. D aughter(s): alive.?1 brother(s) , 2 sister(s) . 1 [...] it been since you last smoked??1-5 years S moking on and off from 30 years until passed- then picked it back up- quit in 2020. * Medications: T molly Bean(ARIPiprazole) 30 MG Tablet 1 tablet Orally Once a day , Taking Albuterol Sulfate (2.5 MG/3ML) 0.083% Nebulization Solution 3 mL as needed Inhalation every 6 hrs , Taking Amitriptyline HCl 50 mg Tablet [...] tablet Orally Once a day prn , Notes to Pharmacist: PRN, Taking oxyCODONE-Acetaminophen 5-325 MG Tablet Oral , Taking PROzac(FLUoxetine HCl) 20 MG Capsule 4 capsule Orally once daily , Taking rOPINIRole HCl 1 MG Tablet 1 tablet 1 to 3 hours before bedtime Orally Once a day , Taking Trelegy Ellipta(Uqbpneftgbi-Kvnpxsbak-Ozefhd) 100-62.5-25 MCG/ACT Aerosol Powder Breath Activated 1 puff Inhalation Once a day , Discontinued Azithromycin 250 MG Tablet as directed Orally daily , Notes to Pharmacist: take 2 tablets po on first day than 1 tablet po days 2-5, Discontinued predniSONE 20 MG Tablet 2 tablet Orally Once a day , Discontinued Zepbound(Tirzepatide-Weight Management) 2.5 MG/0.5ML Solution Auto-injector 0.5 mL Subcutaneous , Notes to Pharmacist: call for next dose, Medication List reviewed and reconciled with the patient * Allergies: I mitrex: dizziness/fainted - Allergy. Objective: * Vitals: W t:191.4lbs, Ht: 62 in, BP:158/98mm Hg, HR:80/min, BMI:35Index, Oxygen sat %:94%, Ht-cm: 157.48 cm, Wt-k.82 kg. * Examination: G eneral Examinations: GENERAL APPEARANCE: a lert and oriented, i n no acute distress. EYES: c onjunctiva normal, sclera non-icteric. NOSE: n ormal external appearance. LUNGS: d iminished breath sounds in the bases. CARDIO: r egular rate and rhythm, S1, S2 normal. MUSCULOSKELETAL: G ait and station normal. SKIN: w arm and dry. Assessment: * Assessment: 1. A nxiety - F41.9 (Primary) 2 . H eart failure, unspecified - I50.9 ? 3 . M ild pulmonary hypertension - I27.20 Plan: * Treatment: 2. H eart failure, unspecified Stop Amitriptyline HCl Tablet, 50 mg, TAKE 1 TABLET BY MOUTH AT BEDTIME. Notes: follows with cardiology 3. M ild pulmonary hypertension Notes: follows with cardiology upcoming pulm apt * Preventive Medicine: Screenings/Counseling: B DC ACTION PLAN Above Normal BMI Follow-up D ietary management education, guidance, and counseling * Follow Up: 4 Weeks,prn * * Electronically signed by Su Milton , LOAN INTERVIEWER [employer]ORTGAGE, CHIEF COMMUNICATIONS OFFICER.TIMBER HARVESTER OPERATOR.[id number] on 12/25/2024 at 09:46 AM EDT Sign off status: Completed Visit Status: C HK (Check Out) true * Provider: Giovana Milton (SOFIA), TIMBER HARVESTER OPERATOR Date: 12/24/2024 Generated for Hannahi courtney/Michelle/eTransmitting on: 01/21/2025 02:20 PM EDT History and Physical Notes * HPI (History of Present Illness) Category Sub-Category Detail Notes Category Not es General pulmonology upcoming anxiety most of life prozac and added abilify- helped a lot bad rxn xanax in past feels like SOB, related to anxiety anxious about returning to work, its been 6m counseling in past, and psych in past, not currently Examination Category Sub-Category Detail Notes Category Not es General Examinations GENERAL APPEARANCE: alert a nd oriented, in no acute distress EYES: conjunctiva normal, sclera non-icteric EARS: NOSE: normal external appe arance THROAT: CARDIO: regular rate and rhy thm, S1, S2 normal LUNGS: diminished breath so unds in the bases ABDOMEN: SKIN: warm and dry BACK: MUSCULOSKELETAL: Gait and station nor mal LYMPH NODES:
--- OUTSIDE RECORDS SUMMARY | 2025-01-07 07:37 | XMS_ITS ---
Author Organization [facility] in [place] Address [address] [place] [address] Care Team Providers Care Commercial Lines Sales Executive Name Role Phone Natividad Milton Primary Care Provider REASON FOR VISIT buspirone Medications Medication SIG (Take, Route, Fr equency, Duration) Notes Start Date End Date Status busPIRone HCl 10 MG 1 tablet Orally Twic e a day for 30 days 12/24/2024 Active Encounters Encounter Location Date Provider Diagnosis [address] [address] 01/07/2025 Natividad Milton Anxiety F41.9 Assessments Encounter Date Diagnosis (ICD Code) Assessment Notes Treatment Notes Treatment Clinical Notes Section Notes 01/07/2025 Anxiety (ICD-10 - F41.9) Plan Of Treatment Medication Medication Name Sig Start Date Stop Date Notes busPIRone HCl 10 MG 1 tablet Orally Twic e a day for 30 days 12/24/2024 Progress Notes * Mary TOMPKINS MDOB:1955 (69 yo F)Acc No.[id number]:01/07/2025 Patient: Massimo PRAKASHMary :1955 A ge:69 Y S ex:Female Address:[address] [place] [address] [place] [address] * Refills Refill busPIRone HCl Capsule, 10 MG, Orally, 60 Tablet, 1 tablet, Twice a day, 30 days, Refills=2 Subjective: * Chief Complaints: * B uspirone * Medical History: * Surgical History: * Hospitalization/Major Diagno stic Procedure: * Medications: Objective: * Vitals: * Physical Examination: Assessment: * Assessment: 1. A nxiety - F41.9 Plan: * Treatment: * Procedure Codes: * true * Date: Generated for Nelda valdez/Michelle/Lorna on: 0 01/21/2025 02:19 PM EDT
--- OUTSIDE RECORDS SUMMARY | 2025-01-11 06:08 | XMS_ITS ---
Author Organization [facility] in [place] Address [address] [place] [address] Care Team Providers Care Equity Sales Assistant Name Role Phone Natividad Milton Primary Care Provider REASON FOR VISIT Pulmonology referral Encounters Encounter Location Date Provider Diagnosis [facility] [address] [place] [address] 01/11/2025 Natividad Milton Plan Of Treatment No Information Progress Notes * Mary TOMPKINS MDOB:1955 (69 yo F)Acc No.[id number]:01/11/2025 Patient: Massimo PRAKASHMary :1955 A ge:69 Y S ex:Female Address:[address] [place] [address] [place] [address] * true * Date: Generated for Printi ng/Faxing/eTransmitting on: 0 01/21/2025 02:20 PM EDT
--- OUTSIDE RECORDS SUMMARY | 2025-01-16 14:45 | XMS_ITS | Encounter Summary ---
Author Organization [facility] Address [address] [place] [address] Care Team Providers Care Bridge Opener Name Role Phone Travis Townsend MD Primary Care Provider Encounter Details Date Type Department Care Team (Late st Contact Info) Description 01/16/2025 2:45 PM EDT Office Visit [facility] at [facility] [address] [place] [address] Miriam Saenz MD [address] [facility] [address] [facility] [place] [place] [address] Acute on chronic heart failure with preserved ejection fraction (CMS/HCC) (Primary Dx); Palpitations; Dyspnea on exertion; Nonrheumatic aortic valve insufficiency Social History Tobacco Use Types Packs/Day Years Used Date Smoking Tobacco: Former Cigarettes Q uit: 05/23/2019 Smokeless Tobacco: Never Tobacco Cessation:Counseling Given: Not [...] How often do you attend chur or sikh services? More than 4 times per year 03/16/2022 Do you belong to any clubs o r organizations such as jewish groups, unions, fraternal or athletic groups, or [...] Recorded Patient Health Questionnaire-2 Score 0 03/16/2022 [facility] - Occupational Stress [...] place to sleep or slept in a intermediate (including now)? No 03/16/2022 [facility] Safety & Environment Answer Date Rec orded Fear of Current or Ex-Partner Not on file Emotionally Abused Not on file 07/14/2023 Physically Abused Not on file 07/14/2023 Sexually Abused Not on file 07/14/2023 Physically or Sexually Abused Not on file Comments Unknown Sex and Gender Information Value Date Recorded Sex Assigned at Female 01/15/2025 10:25 AM EDT Legal Sex Female 10:16 PM EDT Gender Identity Female 01/15/2025 10:25 AM EDT Sexual Orientation Heterosexual or Straight 12/22 10:25 AM EDT documented as of this encounter Last Filed Vital Signs Vital Sign Reading Time Taken Comments Blood Pressure 152/87 01/16/2025 2:43 PM EDT Pulse 63 01/16/2025 2:43 PM EDT Temperature - - Respiratory Rate - - Oxygen Saturation 95% 01/16/2025 2:43 PM EDT Inhaled Oxygen Concentration - - Weight 85.3 kg (188 lb) 01/16/2025 2:43 PM EDT Height 157.5 cm (5' 2 ) 01/16/2025 2:43 PM EDT Body Mass Index 34.39 01/16/2025 2:43 PM EDT documented in this encounter Progress Notes * Miriam Saenz MD - 01/16/2025 2:45 PM EDT Images from the original note were not included. [facility] Cardiology Clinic Note Chief Complaint: Patient here for a 1 year follow up with Echo. Patient states she is out of breathall the time. Patient complains leg swelling, fatigue, dizziness/lightheaded, DAI, chest pain, bruising/bleeding. Patient states she has been going to pain management, today when she was seen in [facility] her blood pressure was 188 mmHg HPI: Mary Vick is a 69 y.o. female She still has exertional shortness of breath. Denies chest pain. Infrequent palpitations with no significant lightheadedness, dizziness or syncope No orthopnea, no paroxysmal external dyspnea, no lower extremity edema The patient was a former smoker Update 01/16/2025: The patient broke her arm earlier this year and has been unable to work from the beginning of the year. She has put on a significant amount of weight since that time. She denies significant anginal chest pain. Her shortness of breath is significantly worse. No orthopnea or paroxysmal external dyspnea. Mild lower extremity edema. Cardiology ROS: Review of Systems Cardiovascular: Positive for chest pain, dyspnea on exertion, leg swelling and palpitations. Respiratory: Negative for cough. Hematologic/Lymphatic: Bruises/bleeds easily. Musculoskeletal: Positive for back pain. Neurological: Positive for dizziness and light-headedness. Negative for headaches. Allergic/Immunologic: Positive for environmental allergies. All other systems reviewed and are negative. Past Medical History She has a past medical history of Abnormal ECG, COPD (chronic obstructive pulmonary disease) (CMS/HCC), HTN (hypertension), and Sleep apnea. Surgical History She has a past surgical history that includes Hysterectomy; Cardiac catheterization; and Mandible surgery. Social History She reports that she quit smoking about 5 years ago. Her smoking use included cigarettes. She has never used smokeless tobacco. She reports that she does not drink alcohol and does not use drugs. Family History Family History Problem Relation Name Age of Onset Cancer Mother Cancer Sister Allergies Sumatriptan Medications Current Outpatient Medications: amitriptyline (Elavil) 50 mg tablet, Take 50 mg by mouth at bedtime., Disp: , Rfl: amLODIPine (Norvasc) 10 mg tablet, Take 1 tablet every day by oral route with meals for 90 days., Disp: , Rfl: ARIPiprazole (Abilify) 20 mg tablet, Take 30 mg by mouth in the morning., Disp: , Rfl: hxgubdivay-uwfyazcyngsei-pthp 50-325-40 mg tablet, Take 1 tablet by mouth every 4 (four) hours., Disp: , Rfl: calcium carbonate-vitamin D3 500 mg-5 mcg (200 unit) tablet, Take 1 tablet by mouth., Disp: , Rfl: diclofenac (Cataflam) 50 mg [...] Take 1 tablet (40 mg) by mouth once daily as directed., Disp: 90 tablet, Rfl: 0 magnesium oxide (Mag-Ox) 400 mg (241.3 mg [...] Disp: , Rfl: Last Recorded Vitals BP 152/87 (BP Location: Left arm, Patient Position: Sitting) Pulse 63 Ht 1.575 m (5' 2 ) Wt 85.3 kg (188 lb) SpO2 95% BMI 34.39 kg/m?? Physical Examination: GENERAL: alert and oriented x3, [...] EF is 67%. Grade 1 diastolic dysfunction. Mildaortic and tricuspid regurgitation. Normal right- sided pressures. Moderate left atrial dilatation. Electrocardiogram 09/14/2022: [...] 9.2g/dL). When compared to prior testing, there isnot a significant pattern changer the past 4 years. This pattern can be seen in, but not restricted to, cardiopulmonary vascular disorders, early interstitial lung disease, and early emphysema. Clinical correlation required. Echocardiogram 12/19/2024: Global left ventricular systolic function is normal; EF 60% Mild left ventricular hypertrophy Right ventricle is mildly dilated with normal systolic function Mild diastolic dysfunction Mild aortic valve regurgitation Trivial mitral digitation Mildly elevated right-sided pressures Labs 10/25/2024: Serum creatinine 1.63, BUN 55, potassium 4.5 Assessment: Heart failure with preserved ejection fraction HFpEF Palpitations: abnormal EKG Essential hypertension-poorly controlled Supraventricular tachycardia on Holter Bradycardia; possible junctional rhythm - hypoxia related? Mild aortic regurgitation Essential hypertension - uncontrolled Exertional shortness of breath Chronic kidney disease Excessive caffeine Plan: Given shortness of breath, diastolic dysfunction and elevated filling pressures on echocardiography, will start the patient on an SGLT2 inhibitor in the form of Farxiga Will add Lasix 20 mg daily given poorly controlled blood pressure, shortness of breath, elevated filling pressures and HFpEF Check a basic metabolic panel in a week May consider addition of spironolactone if her serum creatinine is stable and her potassium does not increase Should the patient continue to experience palpitations will consider referral to our EP colleagues given evidence of SVT and bradycardia on her event monitor I recommended that she be referred back to pulmonology given her history of prior smoking, abnormalPFTs, and continued shortness of breath Return to clinic in 2 to 3 months or sooner should problems arise; if her shortness of breath does not improve, we will consider invasive coronary angiography and right heart catheterization Miriam Saenz MD, MPH, [facility], [facility], [facility] Interventional Cardiology Pager Email: [email or web address] in this encounter Plan of Treatment Upcoming Encounters Date Type Department Care Team (Late st Contact Info) Description 04/03/2025 3:00 PM EST Office Visit [facility] Heart [facility] [address] [place] [address] Miriam Saenz MD [address] [facility] [address] [facility] [place] [id number] Scheduled Orders Name Type Priority Associated Diagnoses Orde r Schedule Basic metabolic panel Lab Routine Acute on chronic heart failure with preserved ejection fraction (CMS/HCC) Expected: 01/16/2025 (Approximate), Expires: 01/16/2026 Comprehensive metabolic panel Lab Routine Acute on chronic heart failure with preserved ejection fraction (CMS/HCC) Expected: 01/16/2025 (Approximate), Expires: 01/16/2026 documented as of this encounter Visit Diagnoses Diagnosis Acute on chronic heart failure with preserved ejection fraction (CMS/HCC)- Primary Palpitations Dyspnea on exertion Other dyspnea and respiratory abnormality Nonrheumatic aortic valve insufficiency documented in this encounter Care Teams Bridge Opener Relationship Specialty Start Date End Date Travis Townsend MD [address] [place], [place] [address] [place] [address] PCP - General 03/16/22 documented as of this encounter
[2025-01-21] VITALS (30 sets, daily range): BP systolic 146–200; BP diastolic 74–100; PULSE 56–90; TEMP 36.6; O2SAT 95–98; BMI 34.4
--- OUTSIDE RECORDS SUMMARY | 2025-01-21 14:19 | XMS_ITS | Clinical Summary ---
Author Organization [facility] Address [id number] [address] [place] [address] Care Team Providers Care Steam Conditioner Filling Name Role Phone Bull Forrest DO Primary Care Provider [phone] Allergies Active Allergy Reactions Criticality Noted Date [...] 04/01/2028 04/01/2018 Medical Devices Implanted Type Area Transplant Nurse Practitioner Device Identifier Shelf Expiration Date Model / Serial / Lot Lens Iol Ultrasert 23.0d - [id number] - [id number] Implanted:Qty: 1 on 03/27/2020 by Deirdre Denton MD at [facility] Lens Right: Eye [employer] 06/04/2022 [id number] 23.0 / [id number] / NA Lens Iol Ultrasert 23.0d - [id number] - [id number] Implanted:Qty: 1 on 04/08/2020 by Deirdre Denton MD at [facility] Lens Left: Eye [employer] 06/04/2022 [id number] 23.0 / [id number] / NA Insurance [employer] Care Teams Steam Conditioner Filling Relationship Specialty Start Date End Date Bull Forrest DO [address] [place] [address] PCP - General Family Medicine 03/27/20
--- OUTSIDE RECORDS SUMMARY | 2025-01-21 14:19 | XMS_ITS | CCD ---
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 on above: Result Comment: Perf ormed at: BN Performed By: #### B CLINICAL RESOURCE DIRECTOR, HSTROPN, CMP #### [facility] [address] [place] [address] [address] Deborah Mohan Anti-PR3 Antibodies <0.2 Normal 0.0-0.9 [facility] Comment on above: Result Comment: Perf ormed at: BN Performed By: #### B CLINICAL RESOURCE DIRECTOR, HSTROPN, CMP #### [facility] [address] [place] [address] [address] Deborah Mohan Atypical pANCA 1:160 Critically high Neg:<1:20 [facility] Comment on above: Result Comment: The atypical pANCA pattern has been observed in a significant percentage of patients with ulcerative colitis, primary sclerosing cholangitis and autoimmune hepatitis. Performed at: CB Performed By: #### B CLINICAL RESOURCE DIRECTOR, HSTROPN, CMP #### [facility] [address] [place] [address] [address] Deborah Mohan Cytoplasmic (C-ANCA) <1:20 Normal Neg:<1:20 [facility] Comment on above: Result Comment: Perf ormed at: CB Performed By: #### B PHILLIP JONES, CMP #### [facility] [address] [place] [address] [address] Deborah Mohan Perinuclear (P-ANCA) <1:20 Normal Neg:<1:20 [facility] Comment on above: Result Comment: The presence [...] CB Performed By: #### B PHILLIP JONES, [facility] #### [facility] [address] [place] [address] Dr. Deborah Mohan ANTISCLERODERMA ABon 022 Antiscleroderma-70 Antibodies <0.2 Normal 0.0-0.9 [facility] Comment on above: Performed By: #### A NARF #### [facility] [address] [place] [address] CHEST WO CONon [...] incidental findings, as described above. Normal [facility] CYCLIC CITRULLINATED PEPTIDE AB (CCP)on 03-09-2022 CCP Antibodies IgG/IgA 6 units Normal 0-19 [facility] Comment on above: Result Comment: Nega tive <20 Weak positive 20 - 39 Moderate positive 40 - 59 Strong positive >59 Performed By: #### B CLINICAL RESOURCE DIRECTOR, HSTROPN, CMP #### [facility] [address] [place] [address] [address] Deborah Mohan IGG SUBCLASSES (1-4) AND TOT Kade 03-09-2022 IgG, Subclass 1 448 mg/dL Normal 248-810 [facility] Comment on above: Performed By: #### B CLINICAL RESOURCE DIRECTOR, HSTROPN, CMP #### [facility] [address] [place] [address] [address] Deborah Mohan IgG, Subclass 2 253 mg/dL Normal 130-555 [facility] Comment on above: Performed By: #### B CLINICAL RESOURCE DIRECTOR, HSTROPN, CMP #### [facility] [address] [place] [address] [address] Deborah Mohan IgG, Subclass 3 95 mg/dL Normal 15-102 [facility] Comment on above: Performed By: #### B CLINICAL RESOURCE DIRECTOR, HSTROPN, CMP #### [facility] [address] [place] [address] [address] Deborah Mohan IgG, Subclass 4 10 mg/dL Normal 2-96 [facility] Comment on above: Performed By: #### B CLINICAL RESOURCE DIRECTOR, HSTROPN, CMP #### [facility] [address] [place] [address] [address] Deborah Mohan Immunoglobulin G, Qn, Serum 658 mg/dL Normal 586-1602 [facility] Comment on above: Performed By: #### B CLINICAL RESOURCE DIRECTOR, HSTROPN, CMP #### [facility] [address] [place] [address] [address] Deborah Mohan IMMUNOGLOBULIN E, TOTALon Immunoglobulin E, Total 5 IU/mL Critically low 6-495 [facility] Comment on above: Performed By: #### I GETOT ####[facility] [address] [place] [address]Dr. Deborah Mohan MICHELL EIA W/REFLEX 5 BIOMARKER Son 03-08-2022 MICHELL Direct Negative Normal Negative [facility] Comment on above: Performed By: #### A NARF #### [facility] [address] [place] [address] [address] Deborah Mohan ANGIOTENSION-CONVERTING ENZY ME (FRANCESCO)on 03-08-2022 FRANCESCO 32 U/L Normal 14-82 [facility] Comment on above: Performed By: #### A NGIOC ####[facility] [address] [place] [address]DrAnkur Mohan ANTIGLOMERULAR BASEMENT MEMB ROMMEL ABSon 03-08-2022 Anti-GBM Antibodies <0.2 Normal 0.0-0.9 [facility] Comment on above: Performed By: #### A GBM #### [facility] [address] [place] [address] [address] Deborah Mohan IMMUNOGLOBULIN IGA QUANTITIA VEon 03-06-2022 Immunoglobulin A, Qn, Serum 229 mg/dL Normal 87-352 [facility] Comment on above: Performed By: #### A NARF #### [facility] [address] [place] [address] [address] Deborah Mohan IMMUNOGLOBULIN IGM QUANTITAT IVEon 03-06-2022 Immunoglobulin M, Qn, Serum 83 mg/dL Normal 26-217 [facility] Comment on above: Performed By: #### B CLINICAL RESOURCE DIRECTOR, HSTROPN, CMP #### [facility] [address] [place] [address] [address] Deborah Mohan RHEUMATOID FACTORon 03-06-20 22 RA Latex Turbid. 10.9 IU/mL Normal <14.0 [facility] Comment on above: Performed By: #### R F ####[facility] [address] [place] [address]Dr. Deborah Mohan CREATININEon 03-05-2022 Creatinine [Mass/Vol] 1.38 mg/dL Critically high 0.55-1.02 [facility] Comment on above: Performed By: #### C MELVINA ####[facility] [address] [place] [address]DrAnkur Mohan EGFR-AF ROMANIAN 46 mL/min/1.73m2 Critically low >=60 [facility] Comment on above: Performed By: #### C MELVINA ####[facility] [address] [place] [address]DrAnkur Mohan EGFR-NON AF ROMANIAN 38 mL/min/1.73m2 Critically low >=60 [facility] Comment on above: Performed By: #### C MELVINA ####[facility] [address] [place] [address]Dr. Deborah Mohan SED RATE WESTERGRENon 2021 SED RATE 92 mm/hr Critically high <=30 [facility] Comment on above: Performed By: #### B CLINICAL RESOURCE DIRECTOR, HSTROPN, CMP #### [facility] [address] [place] [address] [address] Deborah Mohan XR DEXA BONE DENSITYon [...] CONDON Date: 2022-03-05 16:56 Normal [facility] XR CHEST 1 Von 03-01-2022 XR CHEST [...] NOVAK Date: 2022-02-28 22:27 Normal [facility] XR KNEE LUANA 4V or >on 2021 [...] RAUDEL ESTRADA Date: 2022-01-29 11:09 Normal [facility] CBC AUTO DIFFon 11-29-2021 BASO # 0.1 103/ul Normal 0.0-0.1 [facility] Comment on above: Performed By: #### C BC ####[facility] [address] [place] [address]Dr. Deborah Mohan Basophils/100 WBC (Bld) 0.8 % Normal 0.2-2.0 [facility] Comment on above: Performed By: #### C BC ####[facility] [address] [place], [place] [address]DrAnkur Mohan EO # 0.3 103/ul Normal 0.0-0.7 [facility] Comment on above: Performed By: #### C BC ####[facility] [address]fel[address] [place] [address]Dr. Deborah Mohan Eosinophils/100 WBC (Bld) 2.2 % Normal 0.9-7.0 [facility] Comment on above: Performed By: #### C BC ####[facility] [address]bia[address] [place] [address]DrAnkur Mohan Erythrocyte distribution width (RBC) [Ratio] 21.2 % Critically high 11.0-15.0 [facility] Comment on above: Performed By: #### C BC ####[facility] [address] [place], [place] [address]DrAnkur Mohan Hematocrit (Bld) [Volume fraction] 33.2 % Critically low 36.0-48.0 [facility] Comment on above: Performed By: #### C BC ####[facility] [address] [place] [address]DrAnkur Mohan Hemoglobin (Bld) [Mass/Vol] 10.3 g/dL Critically low 12.0-16.0 [facility] Comment on above: Performed By: #### C BC ####[facility] [address] [place], [place] [address]DrAnkur Mohan IG # 0.11 10e3/ul Critically high 0.00-0.03 [facility] Comment on above: Performed By: #### C BC ####[facility] [address] [place], [place] [address]DrAnkur Mohan IG % 0.9 % Critically high 0.0-0.5 [facility] Comment on above: Performed By: #### C BC ####[facility] [address] [place], [place] [address]DrAnkur Mohan LYMPH # 2.2 103/ul Normal 1.2-3.8 [facility] Comment on above: Performed By: #### C BC ####[facility] [address] [place], [place] [address]DrAnkur Mohan Lymphocytes/100 WBC (Bld) 18.5 % Critically low 20.5-60.0 [facility] Comment on above: Performed By: #### C BC ####[facility] [address] [place], [place] [address]DrAnkur Mohan MANUAL DIFF REQ NO Normal [facility] Comment on above: Performed By: #### C BC ####[facility] [address] [place], [place] [address]DrAnkur Mohan MCH (RBC) [Entitic mass] 26.3 pg Critically low 26.7-34.0 [facility] Comment on above: Performed By: #### C BC ####[facility] [address] [place], [place] [address]DrAnkur Mohan MCHC (RBC) [Mass/Vol] 31.0 g/dL Normal 29.9-35.2 [facility] Comment on above: Performed By: #### C BC ####[facility] [address] [place], [place] [address]DrAnkur Mohan MCV (RBC) [Entitic vol] 84.9 fL Normal 81.0-99.0 [facility] Comment on above: Performed By: #### C BC ####[facility] [address] [place], [place] [address]DrAnkur Mohan MONO # 0.6 103/ul Normal 0.3-0.8 [facility] Comment on above: Performed By: #### C BC ####[facility] [address] [place], [place] [address]DrAnkur Mohan Monocytes/100 WBC (Bld) 5.3 % Normal 1.7-12.0 [facility] Comment on above: Performed By: #### C BC ####[facility] [address] [place], [place] [address]DrAnkur Mohan NEUT # 8.4 103/ul Critically high 1.4-6.5 [facility] Comment on above: Performed By: #### C BC ####[facility] [address] [place], [place] [address]DrAnkur Mohan Neutrophils/100 WBC (Bld) 72.3 % Normal 43.0-75.0 [facility] Comment on above: Performed By: #### C BC ####[facility] [address]ze[address] [place], [place] [address]DrAnkur Mohan Platelet mean volume (Bld) [Entitic vol] 10.1 fL Normal 9.5-13.5 [facility] Comment on above: Performed By: #### C BC ####[facility] [address] [place], [place] [address]DrAnkur Mohan PLT 351 103/ul Normal 150-450 [facility] Comment on above: Performed By: #### C BC ####[facility] [address] [place], [place] [address]DrAnkur Mohan RBC 3.91 106/ul Critically low 4.20-5.40 [facility] Comment on above: Performed By: #### C BC ####[facility] [address] [place], [place] [address]Am. Deborah Mohan WBC 11.6 103/ul Critically high 4.0-11.0 [facility] [place] [facility] Comment on above: Performed By: #### C BC ####[facility] [address] [place], [place] [address]Tt. Deborah Mohan CTA CHEST WO W CONon [...] 2. Bilateral peripheral fibrosis and/or scarring with kktp-pm-ghojmopy groundglass densities. The groundglass densities are slightly decreased compared to the prior scan. 3. Old calcified granulomas in the chest and abdomen. 4. Large hiatal hernia. 5. Moderate diffuse osteopenia. Electronically authenticated by: BERNARDO DENNY Date: 2021-11-29 20:31 Normal [facility] D-DIMERon 11-29-2021 D-DIMER 1.14 mg/L FEU Critically high <=0.59 [facility] Comment on above: Performed By: #### A NARF #### [facility] [address] [place] [address] Dr. Deborah Mohan D-DIMER COMMENTS SEE BELOW Normal [facility] [place] [facility] Comment on above: Result [...] hospitalization. Performed By: #### A NARF #### [facility] [address] [place] [address] Dr. Deborah Mohan PROF CHEM 8 (BAS METB)on Anion gap [Moles/Vol] 11.7 mmol/L Normal [facility] Comment on above: Performed By: #### B KYLEE HSTROPN #### [facility] [address] [place] [address] [address] Deborah Mohan Calcium [Mass/Vol] 8.7 mg/dL Normal 8.5-10.1 [facility] Comment on above: Performed By: #### B KYLEE HSTROPN #### [facility] [address] [place] [address] Dr. Deborah Mohan Chloride [Moles/Vol] 107 mmol/L Normal 98-107 [facility] Comment on above: Performed By: #### B KYLEE HSTROPN #### [facility] [address] [place] [address] [address] Deborah Mohan CO2 [Moles/Vol] 25.3 mmol/L Normal 21.0-32.0 [facility] Comment on above: Performed By: #### B MP, HSTROPN #### [facility] [address] [place] [address] [address] Deborah Mohan Creatinine [Mass/Vol] 0.98 mg/dL Normal 0.55-1.02 [facility] Comment on above: Performed By: #### B MP, HSTROPN #### [facility] [address] [place] [address] [address] Deborah Mohan EGFR-AF ROMANIAN >60 Normal >=60 [facility] Comment on above: Performed By: #### B MP, HSTROPN #### [facility] [address] [place] [address] [address] Deborah Mohan EGFR-NON AF ROMANIAN 56 mL/min/1.73m2 Critically low >=60 [facility] Comment on above: Performed By: #### B MP, HSTROPN #### [facility] [address] [place] [address] [address] Deborah Mohan Glucose [Mass/Vol] 105 mg/dL Normal 74-106 [facility] Comment on above: Performed By: #### B MP, HSTROPN #### [facility] [address] [place] [address] [address] Deborah Mohan Potassium [Moles/Vol] 4.0 mmol/L Normal 3.5-5.1 [facility] Comment on above: Performed By: #### B MP, HSTROPN #### [facility] [address] [place] [address] [address] Deborah Mohan Sodium [Moles/Vol] 140 mmol/L Normal 136-145 [facility] Comment on above: Performed By: #### B MP, HSTROPN #### [facility] [address] [place] [address] [address] Deborah Mohan Urea nitrogen [Mass/Vol] 21.0 mg/dL Critically high 7.0-18.0 [facility] Comment on above: Performed By: #### B KYLEE HSTROPN #### [facility] [address] [place], [place] [address] Dr. Deborah Mohan Urea nitrogen/Creatinine [Mass ratio] 21.4 mg/mg Normal [facility] Comment on above: Performed By: #### B KYLEE HSTROPN #### [facility] [address] [place], [place] [address] Dr. Deborah Mohan TROPONIN, HIGH SENSITIVITYon 11-29-2021 HSTROP 4.5 pg/mL Normal 4.0-51.3 [facility] Comment on above: Result Comment: CUT- OFF POINTS HAVE BEEN ESTABLISHED BASED ON THE FOURTH UNIVERSAL DEFINITIONS OF MYOCARDIAL INFARCTION. THE UPPER REFERENCE LIMIT (URL) OF TROPONIN, DEFINED THE 99TH PERCENTILE OF cTnI DISTRIBUTION IN A REFERENCE POPULATION, HAS BEEN CONFIRMED THE DECISION THRESHOLD FOR NC DIAGNOSIS. Performed By: #### H STROPN ####[facility] [address] [place], [place] [address]GeDr. Deborah Mohan HSTROP 6.0 pg/mL Normal 4.0-51.3 [facility] Comment on above: Result Comment: CUT- OFF POINTS HAVE BEEN ESTABLISHED BASED ON THE FOURTH UNIVERSAL DEFINITIONS OF MYOCARDIAL INFARCTION. THE UPPER REFERENCE LIMIT (URL) OF TROPONIN, DEFINED THE 99TH PERCENTILE OF cTnI DISTRIBUTION IN A REFERENCE POPULATION, HAS BEEN CONFIRMED THE DECISION THRESHOLD FOR NC DIAGNOSIS. Performed By: #### B KYLEE HSTROPN #### [facility] [address] [place], [place] [address] Dr. Deborah Mohan XR CHEST 1 Von [...] by: KANDY BARRY Date: 2021-11-29 19:20 Normal [facility] XR LSPINE W_OBLS AND FLEX_EX Ton 11-12-2021 [...] RAUDEL ESTRADA Date: 2021-11-12 07:56 Normal [facility] CALCIUMon 11-11-2021 Calcium [Mass/Vol] 9.0 mg/dL Normal 8.5-10.1 [facility] Comment on above: Performed By: #### A NARF #### [facility] [address] [place] [address] [address] Deborah Mohan CREATININEon 11-11-2021 Creatinine [Mass/Vol] 1.47 mg/dL Critically high 0.55-1.02 [facility] [place] Comment on above: Performed By: #### A NARF #### [facility] [address] [address] [address] Deborah Mohan EGFR-AF ROMANIAN 43 mL/min/1.73m2 Critically low >=60 [facility] [place] Comment on above: Performed By: #### A NARF #### [facility] [address] [address] [address] Deborah Mohan EGFR-NON AF ROMANIAN 35 mL/min/1.73m2 Critically low >=60 [facility] [place] Comment on above: Performed By: #### A NARF #### [facility] [address] [address] [address] Deborah Mohan Vital Signs Date Time Vital Sign Value Performing Clinician Faci lity 10-29-2024 14:57-0400 Blood Pressure Location Anderson SHASHA [facility] 03-20-2024 14:57-0400 Diastolic blood pressure 82 mm[Hg] Anderson PULLIAM [facility] [place] 03-20-2024 14:57-0400 Heart rate 70 /min Anderson RICHL [facility] 03-20-2024 14:57-0400 Respiratory rate 16 /min Anderson RICHL [facility] 03-20-2024 14:57-0400 Systolic blood pressure 126 mm[Hg] Anderson PULLIAM [facility] Encounters Encounter Date Encounter Type Care Provider Facility Start: 01-16-2025 End: 01-16-2025 ambulatory AB [facility] Start: 12-10-2024 End: 12-10-2024 ambulatory Natividad Silva Facility:[facility] Start: 12-10-2024 Non-patient / Non-visit Dima Barahona MD -[facility] Work Phone: Start: 10-22-2024 End: 10-22-2024 ambulatory Gabriella Woodruff MD Facility:[facility] Start: 04-25-2024 End: 04-25-2024 ambulatory Anderson PULLIAM Facility:CD:[id number] Start: 03-20-2024 End: 03-20-2024 ambulatory Luisito Townsend Facility:[facility] Start: 03-20-2024 End: 03-20-2024 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 procedure Anderson PULLIAM [facility] [place] Start: 02-10-2024 ambulatory Luisito Hoy Facility:[facility] Start: 10-05-2022 End: 10-06-2022 ambulatory NARENDRANATH [...] Facility: H1 Start: 05-08-2022 End: 05-08-2022 ambulatory [employer] Clarita Barrett Work Phone: [facility] Work Phone: Start: 05-08-2022 End: 05-08-2022 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 procedure [employer]-C Clarita Barrett Work Phone: [facility] Start: [...] department patient visit BRANDON RUSSELL [facility] Start: 12-11-2017 End: 12-11-2017 Emergency department patient visit ROBERT Mendoza ROXANNEMAR Facility:[facility] Procedures Date Procedure Procedure Detail Performing Clinician Start: 05-08-2022 Plain X-ray of left wrist [employer] Clarita Nena Work Phone: Start: 05-08-2022 X-ray of left ankle [employer] -C Clarita Barrett Work Phone: Start: 04-01-2018 IP CONSULT TO ORAL SURGERY BRANDON RUSSELL Start: 03-14-2013 Colonoscopy Anderson NI LL Appendectomy Anderson NILL Blepharoplasty Anderson NILL Bone structure of ma ndible (body structure) Anderson NILL Dilation and curettage Dakota jenkins NILL Extraction of cataract Dakota jenkins NILL Ligation of fallopian tube Kyree segovia NILL Total abdominal hysterectomy with bilateral salpingo-oophorectomy Anderson NILL Payers Date Payer Category Payer Self-pay 2023 Unknown 1959 Unknown [id number] 1955 Unknown [id number] 2.16.84 0.1.206822.3.579.2.593 1953 Unknown [id number] 2.16.84 0.1.741847.3.579.2.593 1953 Unknown [id number] 2.16.84 0.1.774196.3.579.2.593 1953 Unknown [id number] 2.16.84 0.1.973987.3.579.2.593 1953 Unknown [id number] 2.16.84 0.1.257226.3.579.2.593 1953 Unknown [id number] 2.16.84 0.1.424328.3.579.2.593 1953 Unknown [id number] 2.16.84 0.1.008880.3.579.2.593 1953 Unknown [id number] 2.16.84 0.1.473009.3.579.2.593 1953 Unknown [id number] 2.16.84 0.1.108579.3.579.2.593 1953 Unknown [id number] 2.16.84 0.1.352314.3.579.2.593 1953 Unknown [id number] 2.16.84 0.1.582868.3.579.2.593 1953 Unknown [id number] 2.16.84 0.1.845651.3.579.2.593 1953 Unknown [id number] 2.16.84 0.1.673300.3.579.2.593 1953 Unknown [id number] 2.16.84 0.1.534845.3.579.2.593 1953 Unknown [id number] 2.16.84 0.1.108841.3.579.2.593 1953 Unknown [id number] 2.16.84 0.1.948182.3.579.2.593 1953 Unknown [id number] 2.16.84 0.1.574258.3.579.2.593 1953 Unknown [id number] 2.16.84 0.1.369624.3.579.2.593 1953 Unknown [id number] 2.16.84 0.1.284608.3.579.2.593 1953 Unknown [id number] 2.16.84 0.1.215778.3.579.2.593 1953 Unknown [id number] 2.16.84 0.1.855206.3.579.2.593 1953 Unknown [id number] 2.16.84 0.1.556100.3.579.2.593 1953 Unknown [id number] 2.16.8 40.1.361143.3.579.2.727 1953 Unknown [id number] 2.16.8 40.1.329191.3.579.2.727 1953 Unknown [id number] 2.16. 840.1.781907.3.579.2.196 Medicare [id number] Medicare Medicare [id number] Unknown MMO [id number] Unknown [place] BC/BS [id number] Unknown [id number] 2.16.8 40.1.830723.3.579.2.531 Social History Date Type Detail Facility Tobacco smoking stat [facility] Unknown if ever smoked [facility] Work Phone: Start: 1955 Sex Assigned At Female [facility] Start: 03-20-2024 Tobacco smoking status Ex-smoker (fi nding) [facility] Tobacco smoking status Never [facility] Sex Assigned At Female [facility] Start: 01-06-2024 Tobacco smoking stat us NHIS Never smoked tobacco (finding) [facility] Sex Female (finding) [facility] Functional Status Date Assessment Result Facility 03-20-2024 Functional Status N/A [facility] [place] Clinical Notes 11-05-2021 to 01-16-2025 Note Date & Type Note Facility 01-16-2025 Note [facility] Note Chief Complaint: Patient here for a 1 year follow up with Echo. Patient states she is out of breath all the time. Patient complains leg swelling, fatigue, dizziness/lightheaded, DAI, chest pain, bruising/bleeding. Patient states she has been going to pain management, today when she was seen in pain management her blood pressure was 188 mmHg HPI: [...] mouth in the morning., Disp: , Rfl: ugjihbyuhr-vagryrzfxstse-hrjz 50-325-40 mg tablet, Take 1 tablet by [...] kg (188 lb) SpO2 95% BMI 34.39 kg/m??? Physical Examination: GENERAL: alert and oriented [...] bpm 31 PVCs No atrial fibrillation Episodes (more content not included)... [facility] 03-20-2024 Note General Surgery Offi ce/Clinic Note [...] 1 tab(s), Or (more content not included)... [facility] Comment on above: Result Comment: Elec tronically Signed By: SHASHA GRANT, Anderson Quick\Date and Time Signed: 03/20/24 16:53 EDT 07-08-2022 Note CONSULTATION PROCEDURE DATE: 07/08/2022 HISTORY [...] in the clinic in three months. [facility] 06-24-2022 Note CONSULTATION CONSULTATION DATE: [...] at a time, as she works at [employer]. Current medications include Percocet 5/325 daily, diclofenac [...] pending approval for her knee injections. [facility] 04-08-2022 Note CONSULTATION CONSULTATION DATE: [...] three months' time unless otherwise indicated. [facility] 03-09-2022 Note CONSULTATION CONSULTATION DATE: [...] to proceed. CC: Natividad Silva CNP [facility] 01-28-2022 Note CONSULTATION CONSULTATION DATE: [...] and re-evaluation of her bursa injection. [facility] 01-28-2022 Note CONSULTATION PROCEDURE DATE: [...] be followed up in the clinic. [facility] 11-12-2021 Note PROCEDURE: XR HIPS [...] by: RAUDEL ESTRADA Date: 2021-11-12 07:50 [facility] 11-05-2021 Note CONSULTATION PROCEDURE DATE:11/05/2021 [...] will be followed up in the office. [facility] Signed and Approved by: JOEL RAMON . 11/18/2021 16:24:00 [facility] 11-05-2021 Note CONSULTATION CONSULTATION DATE: [...] time, was working half a day at [employer] and since then has increased to full [...] in three months' time unless otherwise indicated. [facility] Signed and Approved by: JOEL RAMON . 11/18/2021 16:24:00 [facility] Evaluation + Plan note No data available for this section [facility] [place] Evaluation note No assessment inform ation available [facility] Work Phone: Hospital Discharge instructions No data available for this section [facility] Progress note No data available for this section [facility] Reason for referral (narrative) No reason for referral information available [facility] Work Phone: Summary Purpose Family [...] section and content) DATE CREATED AUTHOR 12/21/2017 [facility] DATE CREATED AUTHOR AUTHOR'S ORGANIZ ATION 05/01/2018 [facility] DATE CREATED AUTHOR AUTHOR'S ORGANIZ ATION 10/06/2022 [facility] DATE CREATED AUTHOR AUTHOR'S ORGANIZ ATION 05/03/2024 [facility] DATE CREATED AUTHOR AUTHOR'S ORGANIZ ATION 10/29/2024 [facility] DATE CREATED AUTHOR AUTHOR'S ORGANIZ ATION 12/26/2024 [facility] DATE CREATED AUTHOR AUTHOR'S ORGANIZ ATION 01/18/2025 [facility] Care Teams (unrecognized sec tion and content) Team Status: Inactive Member Role Status Dates SILVA Johnson Attending Provider Active Team Status: Active Member Role Status Dates THOMAS Anderson Primary Care Provider Active Team Status: Active Member Role Status Dates THOMAS Anderson Primary Care Provider Active Start: December 10, 2024 THOMAS Anderson Other Provider Active S tart: December 10, [...] BE BASED ON THE PRIMARY CLINICAL RECORDS. [facility] [employer] [facility]. provides no warranty or guarantee of the accuracy or completeness of information in this document.
--- OUTSIDE RECORDS SUMMARY | 2025-01-21 14:19 | XMS_ITS | Clinical Summary ---
Author Organization [facility] Address [address] [place] [address] Care Team Providers Care Unemployment Inspector Name Role Phone Unavailable Primary Care Provider [...] in the evening. Take before meals. Active Encounters Date Type Department Care Team Description 01/11/2025 Abstract [facility] [address] [place] [address] Rosalba Ac DO from Last 3 Months Family History Medical History Relation Name Comments [...] Orientation Not on file Plan of Treatment Upcoming Encounters Date Type Department Care Team (Late st Contact Info) Description 01/24/2025 10:15 AM EDT Consult [facility] [address] [place] [id number] Rosalba Ac DO [address] [place] [address] Health Maintenance Due Date Last Done Comments CT Colonography 1955 Colonoscopy 1953 Colorectal Cancer Screening 1955 FIT-DNA 1955 FIT 1955 FOBT 1955 Sigmoidoscopy 1955 Mammogram 1993 Influenza Vaccine (#1) 2025 , 04/30/2023, 02/12/2022, Additional history exists Pneumococcal Vaccine: 65+ Years Completed 06/05/2024, 09/18/2021, 02/02/2020, Additional [place] [address] [employer]
--- OUTSIDE RECORDS SUMMARY | 2025-01-21 14:20 | XMS_ITS | Patient Health Record ---
Author Organization [facility] in [place] Address [address] [place] [address] Care Team Providers Care Concrete Curer Name Role Phone Natividad Silva Primary Care Provider José Townsend [phone] Allergies Allergen (clinical drug ingredient) Drug/Non Drug Allergy documented on EMR Reaction Allergy Type Onset Date Status sumatriptan Imitrex dizziness/fainte d Drug Allergy Active Results Component Value Reference Range Notes MM tomosynthesis screening B I Reviewed date:02/22/2024 09:14:22 PM Interpretation: Performing Lab: Notes/Report: Source Facility: [place] [address] Mammography Report Signed Patient: MARY VICK MR#: [id number] : 1955 Acct:[id number] Age/Sex: 68 / F ADM Date: 02/21/24 Loc: MAMMO Attending Dr: Travis Townsend M.D. Ordering Physician: Travis Townsend M.D. Results: Date of Service: 02/21/24 Follow Up: Procedure(s): MM tomosynthesis screening BI Accession Number(s): [id number] cc: NATIVIDAD SILVA ; Travis Townsend M.D. Patient Name: MARY VICK MR#: [id number] : 1955 Exam Date: 02/21/2024 Ordering Doctor: [...] lung,brain cancer at age 41. LOCATION: The [facility] BREAST COMPOSITION: There are scattered areas of [...] Signed By: 02/22/24 0759 DD/ 0759 TD/TT: Freight Representative: [place] [address] Mammography Report Signed Patient: CHRISTINA VICK MR#: [id number] : 1955 Acct:[id number] Age/Sex: 68 / F ADM Date: 02/21/24 Loc: MAMMO Attending Dr: Ga Townsend M.D. Ordering Physician: Travis Townsend M.D. Results: Date of Service: 06/15 Follow Up: Procedure(s): MM tomosynthesis screening BI Accession Number(s): [id number] cc: NATIVIDAD SILVA Douglas M.D. Patient Name: MARY VICK MR#: [id number] : 1955 Exam Date: 02/21/2024 Ordering Doctor: DR Travis Townsend . RADIOLOGY REPORT PROCEDURE: MM TOMOSYNTHESIS SCREENING BI COMPARISON: MG MAMM SCREEN LUANA W CAD, 03/04/2020. MG MAMM LUANA SCRN W CAD DIG, 02/12/2013. INDICATIONS: Screening Calculator Name NCI Breast Cancer Risk Assessment Tool 5 Year Breast Cancer Risk 3.50% Lifetime Breast Canc er Risk 10.10% Personal Breast Canc er No Personal Ovarian Can cer No Treatments None Family Cancers Baltazare r with breast cancer at age 47; Mother with lung cancer at age 59; Si ster with lung,brain cancer at age 43. LOCATION: The [facility] BREAST COMPOSITION: There are scattered areas [...] Signed By: 02/22/24 0759 DD/ 075 TD/TT: Freight Representative: ABRAN CRAFT Reviewed date:05/03/2024 09:47:50 AM Interpretation: Performing Lab: Notes/Report: Source Facility: [place] [address] [place] [address] XRay Report Signed Patient: MARY VICK MR#: [id number] : 1955 Acct:[id number] Age/Sex: 68 / F ADM Date: 05/03/24 Loc: RAD Attending Dr: Varun Monique M.D. Ordering Physician: Varun Monique M.D. Date of Service: 05/03/24 Procedure(s): XR hip LUANA Accession Number(s): [id number] cc: NATIVIDAD SILVA ; Varun Monique M.D. The [address] [address] Patient Name: MARY VICK MRN: [id number] date: 1955 Sex: F Assigned Patient Location: [facility] Current Patient Location: RAD Accession/Order Number: [id number] Exam Date: 05/03/2024 09:00 Report Date: 05/03/2024 [...] M.D. Signed By: 05/03/24922 DD/ 0 TD/TT: Freight Representative: [place] [address] XRay Report Signed Patient: CHRISTINA VICK MR#: [id number] : 1955 Acct:[id number] Age/Sex: 68 / F ADM Date: 05/03/24 Loc: RAD Attending Dr: Varun Monique M.D. Ordering Physician: Varun Monique M.D. Date of Service: 05/03/24 Procedure(s): XR hip LUANA Accession Number(s): [id number] cc: NATIVIDAD SILVA ; Varun Moniqeu M.D. The [place] [address] Patient Name: MARY VICK MRN: [id number] date: 1955 Sex: F Assigned Patient Location: [facility] Current Patient Loca tion: RAD Accession/Order Numb er: [id number] Exam Date: 09:00 Report Date: 05/03/2024 09:21 [...] M.D. Signed By: 05/03/24922 DD/ 0 TD/TT: Freight Representative: BNP Reviewed date:06/06/2024 06:59:30 PM Interpretation: Performing Lab: Notes/Report: The [facility] , NT Pro B Type Natriuretic Pept 59.0 <=900.0 pg/mL Performing Lab: see note ML - The [facility] LB BNP Reviewed date:10/25/2024 11:04:31 AM Interpretation: Performing Lab: Notes/Report: The [facility] , NT Pro B Type Natriuretic Pept 44.0 <=900.0 pg/mL Performing Lab: see note ML - The [facility] LB D-DIMER Reviewed date:10/25/2024 11:04:31 AM Interpretation: Performing Lab: Notes/Report: The [facility] , D Dimer 0.98 <=0.59 mg/L FEU [...] hospitalization. Performing Lab: see note ML - [facility] LB CT angio chest Reviewed date:10/25/2024 12:12:40 PM Interpretation: Performing Lab: Notes/Report: Source Facility: [facility] [place] [address] CT Scan Report Signed Patient: MARY VICK MR#: [id number] : 1955 Acct:[id number] Age/Sex: 69 / F ADM Date: 10/25/24 Loc: ER Attending Dr: Ordering Physician: Donny Escalante M.D. Date of Service: 10/25/24 Procedure(s): CT angio chest Accession Number(s): [id number] cc: NATIVIDAD SILVA [place] [address] Patient Name: MARY VICK MRN: [id number] date: 1955 Sex: F Assigned Patient Location: ER Current Patient Location: ER Accession/Order Number: [id number] Exam Date: 10/25/2024 11:50 Report Date: 10/25/2024 [...] Avina M.D. 10/25/2024 12:04 PM Dictation Location: [place] [address] Electronically authenticated by: [id number] Y Date: 10/25/2024 12:04 Dictated By: Alysia Avina M.D. Signed By: 10/25/24 1207 DD/ 120 TD/TT: Freight Representative: [place] [address] CT Scan Report Signed Patient: CHRISTINA VICK MR#: [id number] : 1955 Acct:[id number] Age/Sex: 69 / F ADM Date: 10/25/24 Loc: ER Attending Dr: Ordering Physician: Donny Escalante M.D. Date of Service: 10/25/24 Procedure(s): CT ang io chest Accession Number(s): [id number] cc: NATIVIDAD SILVA [place] [id number] Patient Name: MARY VICK MRN: [id number] date: 1955 Sex: F Assigned Patient Location: ER Current Patient Loca tion: ER Accession/Order Numb er: [id number] Exam Date: 10/25/2024 11:50 Report Date: 10/25/2024 12:04 At the request of: DONNY ESCALANTE MD Procedure: CT angio chest CT PULMONARY ANGIOGR AM WITH CONTRAST COMPARISON: 10/23/2024 and 06/06/2024 CLINICAL DATA: Acute shortness of breath and chest pain. Elevated d-dimer. TECHNIQUE: Spiral i mages were obtained through the chest following intravenous [...] Avina M.D. 10/25/2024 12:04 PM Dictation Location: [place] [address] Electronically authenticated by: [id number] Y Date: 10/25/2024 12:04 Dictated By: Alysia Avina M.D. Signed By: 10/25/24 1207 DD/ 1204 TD/TT: Freight Representative: DEXA Axial Skeleton (hips, p ranjith, spine)* Reviewed date:12/20/2024 11:25:30 AM Interpretation:undefined Performing Lab: Notes/Report: undefined MR lumbar spine wo con Reviewed date:11/26/2024 03:28:23 PM Interpretation: Performing Lab: Notes/Report: Source Facility: [place] [address] Magnetic Resonance Report Signed Patient: MARY VICK MR#: [id number] : 1955 Acct:[id number] Age/Sex: 69 / F ADM Date: 11/26/24 Loc: MRI Attending Dr: Rhett Norton M.D. Ordering Physician: Richard Askew Date of Service: 11/26/24 Procedure(s): MR lumbar spine wo con Accession Number(s): [id number] cc: NATIVIDAD SILVA ; Richard Askew [place] [address] Patient Name: MARY VICK MRN: [id number] date: 1955 Sex: F Assigned Patient Location: MRI Current Patient Location: MRI Accession/Order Number: [id number] Exam Date: 11/26/2024 10:42 Report Date: 11/26/2024 [...] Gandara M.D. 11/26/2024 10:50 AM Dictation Location: [place] [address] Electronically authenticated by: [id number] Y Date: 11/26/2024 10:50 Dictated By: Matteo Gandara M.D. Signed By: 11/26/24 1053 DD/ 1050 TD/TT: Freight Representative: [place] [address] Magnetic Resonance Report Signed Patient: CHRISTINA VICK MR#: [id number] : 1955 Acct:[id number] Age/Sex: 69 / F ADM Date: 11/26/24 Loc: MRI Attending Dr: Rhett Norton M.D. Ordering Physician: Richard Askew Date of Service: 11/26/24 Procedure(s): MR lum bar spine wo con Accession Number(s): [id number] cc: NATIVIDAD SILVA ; Richard Askew [place] [id number] Patient Name: MARY VICK MRN: [id number] date: 1955 Sex: F Assigned Patient Location: MRI Current Patient Loca tion: MRI Accession/Order Numb er: [id number] Exam Date: 11/26/2024 10:42 Report Date: 11/26/2024 [...] Gandara M.D. 11/26/2024 10:50 AM Dictation Location: [place] [address] Electronically authenticated by: [id number] Y Date: 11/26/2024 10:50 Dictated By: Matteo Gandara M.D. Signed By: 11/26/24 1053 DD/ 1050 TD/TT: Freight Representative: MR thoracic spine wo con Reviewed date:11/26/2024 03:28:23 PM Interpretation: Performing Lab: Notes/Report: Source Facility: [place] [address] [place] [address] Magnetic Resonance Report Signed Patient: MARY VICK MR#: [id number] : 1955 Acct:[id number] Age/Sex: 69 / F ADM Date: 11/26/24 Loc: MRI Attending Dr: Rhett Norton M.D. Ordering Physician: Richard Askew Date of Service: 11/26/24 Procedure(s): MR thoracic spine wo con Accession Number(s): [id number] cc: NATIVIDAD SILVA ; Rihcard Askew The [address] [address] Patient Name: MARY VICK MRN: [id number] date: 1955 Sex: F Assigned Patient Location: MRI Current Patient Location: MRI Accession/Order Number: [id number] Exam Date: 11/26/2024 10:32 Report Date: 11/26/2024 [...] Gandara M.D. 11/26/2024 10:42 AM Dictation Location: [place] [address] Electronically authenticated by: [id number] Y Date: 11/26/2024 10:42 Dictated By: Matteo Gandara M.D. Signed By: 11/26/24 1045 DD/ 1042 TD/TT: Freight Representative: [place] [address] Magnetic Resonance Report Signed Patient: CHRISTINA VICK MR#: [id number] : 1955 Acct:[id number] Age/Sex: 69 / F ADM Date: 11/26/24 Loc: MRI Attending Dr: Rhett Norton M.D. Ordering Physician: Richard Askew Date of Service: 11/26/24 Procedure(s): MR verde spine wo con Accession Number(s): [id number] cc: NATIVIDAD SILVA ; Richard Askew [place] [id number] Patient Name: MARY VICK MRN: [id number] date: 1955 Sex: F Assigned Patient Location: MRI Current Patient Loca tion: MRI Accession/Order Numb er: [id number] Exam Date: 11/26/2024 10:32 Report Date: 11/26/2024 [...] Gandara M.D. 11/26/2024 10:42 AM Dictation Location: [place] [address] Electronically authenticated by: [id number] Y Date: 11/26/2024 10:42 Dictated By: Matteo Gandara M.D. Signed By: 11/26/24 1045 DD/ 1042 TD/TT: Freight Representative: XR chest 1V Reviewed date:10/25/2024 11:04:31 AM Interpretation: Performing Lab: Notes/Report: Source Facility: [place] [address] [place] [address] XRay Report Signed Patient: MARY VICK MR#: [id number] : 1955 Acct:[id number] Age/Sex: 69 / F ADM Date: 10/25/24 Loc: ER Attending Dr: Ordering Physician: Donny Escalante M.D. Date of Service: 10/25/24 Procedure(s): XR chest 1V Accession Number(s): [id number] cc: NATIVIDAD SILVA ; Donny Escalante M.D. The [place] [address] Patient Name: MARY VICK MRN: [id number] date: 1955 Sex: F Assigned Patient Location: ED.MAIN Current Patient Location: ED.MAIN Accession/Order Number: [id number] Exam Date: 10/25/2024 10:25 Report Date: 10/25/2024 [...] Avina M.D. 10/25/2024 10:29 AM Dictation Location: [place] [address] Electronically authenticated by: [id number] Y Date: 10/25/2024 10:29 Dictated By: Alysia Avina M.D. Signed By: 10/25/24 1031 DD/ 1029 TD/TT: Freight Representative: [place] [address] XRay Report Signed Patient: CHRISTINA VICK MR#: [id number] : 1955 Acct:[id number] Age/Sex: 69 / F ADM Date: 10/25/24 Loc: ER Attending Dr: Ordering Physician: Donny Escalante M.D. Date of Service: 10/25/24 Procedure(s): XR chest 1V Accession Number(s): [id number] cc: NATIVIDAD SILVA ; Donny Escalante M.D. The [address] [address] Patient Name: MARY VICK MRN: [facility]:[id number] date: 1955 Sex: F Assigned Patient Location: ED.MAIN Current Patient Loca tion: ED.MAIN Accession/Order Numb er: [id number] Exam Date: 10/25/2024 10:25 Report Date: 10/25/2024 [...] Avina M.D. 10/25/2024 10:29 AM Dictation Location: [place] [address] Electronically authenticated by: [id number] Y Date: 10/25/2024 10:29 Dictated By: Alysia Avina M.D. Signed By: 10/25/24 1031 DD/ 1029 TD/TT: Freight Representative: ECG 12 lead Reviewed date:10/26/2024 08:52:28 AM Interpretation: Performing Lab: Notes/Report: Source Facility: [place] [address] [place] [address] Electrocardiograph Report Signed Patient: MARY VICK MR#: [id number] : 1955 Acct:[id number] Age/Sex: 69 / F ADM Date: 10/25/24 Loc: ER Attending Dr: Ordering Physician: Donny Escalante M.D. 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 Measurements Intervals [place] Rate: 77 P: 28 SD: 156 QRS: 72 QRSD: 88 T: 66 QT: 390 QTc: 421 Interpretive Statements 1100 Sinus rhythm 9110 normal ECG Compared to ECG 06/17/2024 10:59:54 No significant changes Electronically Signed On 10-25-2024 20:19:40 EDT by EFFIE COOK M.D. Dictated By: EFFIE COOK Signed By: 10/25/242019 DD/ 0 TD/TT: Freight Representative: [place] [address] Electrocardiograph Report Signed Patient: CHRISTINA VICK MR#: [id number] : 1955 Acct:[id number] Age/Sex: 69 / F ADM Date: 10/25/24 Loc: ER Attending Dr: Ordering Physician: Donny Escalante M.D. 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 Measurements Intervals [place] Rate: 77 P: 28 SD: 156 QRS: 72 QRSD: 88 T: 66 QT: 390 QTc: 421 Interpretive Statements 1100 Sinus rhythm 9110 normal ECG Compared to ECG 06/17/2024 10:59:54 No significant changes Electronically Ashlyn d On 10-25-2024 20:19:40 EDT by EFFIE COOK M.D. Dictated By: EFFIE COOK Signed By: 10/25/242019 DD/ 0 TD/TT: Freight Representative: Troponin I High Sensitivity Reviewed date:10/25/2024 11:04:31 AM Interpretation: Performing Lab: Notes/Report: [facility] , Troponin I High Sensitivity 7.0 4.0-51.3 pg/mL CUT-OFF POINTS HAVE BEEN ESTABLISHED BASED ON THE FOURTH UNIVERSAL DEFINITION OF MYOCARDIAL INFARCTION. THE UPPER REFERENCE LIMIT (URL) OF TROPONIN, DEFINED THE 99TH PERCENTILE OF cTnI DISTRIBUTION IN A REFERENCE POPULATION, HAS BEEN CONFIRMED THE DECISION THRESHOLD FOR DC DIAGNOSIS. 99TH PERCENTILE = 51.4 PG/ML NOTE: HIGH-SENSITIVITY TROPONIN ASSAY IS NOT INTENDED TO BE USED IN ISOLATION BUT SHOULD BE INTERPRETED IN CONJUNCTION WITH OTHER DIAGNOSTIC AND CLINICAL INFORMATION. Performing Lab: see note ML - [facility] LB PROF CHEM 8 (BAS METB) Reviewed date:10/25/2024 11:04:31 AM Interpretation: Performing Lab: Notes/Report: [facility] , Sodium 138 136-145 mmol/L Potassium 4.5 [...] Lab: see note ML - [facility] LB CBC AUTO DIFF Reviewed date:10/25/2024 11:04:31 AM Interpretation: Performing Lab: Notes/Report: [facility] , White Blood Count 14.5 4.0-11.0 10 [...] Lab: see note ML - [facility] LB XR wrist LT min 3V Reviewed date:09/10/2024 10:40:29 AM Interpretation: Performing Lab: Notes/Report: Source Facility: [facility]-[address] [place] [address] [place] [address] XRay Report Signed Patient: MARY VICK MR#: [id number] : 1955 Acct:[id number] Age/Sex: 69 / F ADM Date: 09/10/24 Loc: EC Attending Dr: Raudel Royal M.D. Ordering Physician: Raudel Royal M.D. Date of Service: 09/10/24 Procedure(s): XR wrist LT min 3V Accession Number(s): [id number] cc: NATIVIDAD SILVA ; Raudel Royal M.D. The [place] [address] Patient Name: MARY VICK MRN: [id number] date: 1955 Sex: F Assigned Patient Location: Current Patient Location: Accession/Order Number: [id number] Exam Date: 09/10/2024 10:26 Report Date: 09/10/2024 [...] Ghanshyam Mendez M.D.09/10/2024 10:27 AM Dictation Location: [place] [address] Electronically authenticated by: [id number] Y Date: 09/10/2024 10:27 Dictated By: Ghanshyam Mendez D.O. Signed By: 09/10/24 1029 DD/ 1027 TD/TT: Freight Representative: [place] [address] XRay Report Signed Patient: CHRISTINA VICK MR#: [id number] : 1955 Acct:[id number] Age/Sex: 69 / F ADM Date: 09/10/24 Loc: EC Attending Dr: Raudel Royal M.D. Ordering Physician: Raudel Royal M.D. Date of Service: 09/10/24 Procedure(s): XR wri st LT min 3V Accession Number(s): [id number] cc: NATIVIDAD SILVA ; Raudel Royal M.D. [address] [address] Patient Name: MARY VICK MRN: [id number] date: 1955 Sex: F Assigned Patient Location: Current Patient Loca tion: EC Accession/Order Numb er: [id number] Exam Date: 09/10/2024 10:26 Report Date: 09/10/2024 [...] Ghanshyam Mendez M.D.09/10/2024 10:27 AM Dictation Location: [place] [address] Electronically authenticated by: [id number] Y Date: 09/10/2024 10:27 Dictated By: Kenn Mendez D.O. Signed By: 09/10/24 1029 DD/ 1027 TD/TT: Freight Representative: XR wrist LT min 3V Reviewed date:08/13/2024 04:11:06 PM Interpretation: Performing Lab: Notes/Report: Source Facility: [place] [address] XRay Report Signed Patient: MARY VICK MR#: [id number] : 1955 Acct:[id number] Age/Sex: 69 / F ADM Date: 08/13/24 Loc: EC Attending Dr: Raudel Royal M.D. Ordering Physician: Raudel Royal M.D. Date of Service: 08/13/24 Procedure(s): XR wrist LT min 3V Accession Number(s): [id number] cc: NATIVIDAD SILVA ; Raudel Royal M.D. [place] [address] Patient Name: MARY VICK MRN: [id number] date: 1955 Sex: F Assigned Patient Location: Current Patient Location: EC Accession/Order Number: [id number] Exam Date: 08/13/2024 14:03 Report Date: 08/13/2024 [...] Borrero Jr., D.O.08/13/2024 2:04 PM Dictation Location: [place] [address] Electronically authenticated by: [id number] Y Date: 08/13/2024 14:04 Dictated By: Travis Borrero M.D. Signed By: 08/13/24 1407 DD/ 03 TD/TT: Freight Representative: [place] [address] XRay Report Signed Patient: CHRISTINA VICK MR#: [id number] : 1955 Acct:[id number] Age/Sex: 69 / F ADM Date: 08/13/24 Loc: EC Attending Dr: Raudel Royal M.D. Ordering Physician: Raudel Royal M.D. Date of Service: 08/13/24 Procedure(s): XR wri st LT min 3V Accession Number(s): [id number] cc: NATIVIDAD SILVA ; Raudel Royal M.D. [place] [address] Patient Name: MARY VICK MRN: [id number] date: 1955 Sex: F Assigned Patient Location: EC Current Patient Loca tion: EC Accession/Order Numb er: [id number] Exam Date: 08/13/2024 14:03 Report Date: 08/13/2024 14:04 At the request of: RAUDEL ROAYL MD Procedure: XR wrist LT min 3V [...] Borrero Jr., D.O.08/13/2024 2:04 PM Dictation Location: [place] [address] Electronically authenticated by: [id number] Y Date: 08/13/2024 14:04 Dictated By: Travis Borrero M.D. Signed By: 08/13/24 140 DD/ 03 TD/TT: Freight Representative: XR wrist LT min 3V Reviewed date:07/16/2024 01:45:20 PM Interpretation: Performing Lab: Notes/Report: Source Facility: [place] [address] XRay Report Signed Patient: MARY VICK MR#: [id number] : 1955 Acct:[id number] Age/Sex: 68 / F ADM Date: 07/16/24 Loc: Attending Dr: Raudel Royal M.D. Ordering Physician: Raudel Royal M.D. Date of Service: 07/16/24 Procedure(s): XR wrist LT min 3V Accession Number(s): [id number] cc: NATIVIDAD SILVA ; Raudel Royal M.D. The [place] [address] Patient Name: MARY VICK MRN: [id number] date: 1955 Sex: F Assigned Patient Location: Current Patient Location: Accession/Order Number: [id number] Exam Date: 07/16/2024 13:24 Report Date: 07/16/2024 [...] Alysia Avina M.D.07/16/2024 1:26 PM Dictation Location: [place] [address] Electronically authenticated by: [id number] Y Date: 07/16/2024 13:26 Dictated By: Alysia Avina M.D. Signed By: 07/16/24 1329 DD/ 1326 TD/TT: Freight Representative: [place] [address] XRay Report Signed Patient: CHRISTINA VICK MR#: [id number] : 1955 Acct:[id number] Age/Sex: 68 / F ADM Date: 07/16/24 Loc: EC Attending Dr: Raudel Royal M.D. Ordering Physician: Raudel Royal M.D. Date of Service: 07/16/24 Procedure(s): XR wri st LT min 3V Accession Number(s): [id number] cc: NATIVIDAD SILVA ; Raudel Royal M.D. [place] [address] Patient Name: MARY VICK MRN: [id number] date: 1955 Sex: F Assigned Patient Location: EC Current Patient Loca tion: EC Accession/Order Numb er: [id number] Exam Date: 07/16/2024 13:24 Report Date: 07/16/2024 [...] Alysia Avina M.D.07/16/2024 1:26 PM Dictation Location: [place] [address] Electronically authenticated by: [id number] Y Date: 07/16/2024 13:26 Dictated By: Alysia Avina M.D. Signed By: 07/16/24 1329 DD/ 1326 TD/TT: Freight Representative: XR wrist LT min 3V Reviewed date:07/04/2024 12:50:42 PM Interpretation: Performing Lab: Notes/Report: Source Facility: [place] [address] XRay Report Signed Patient: MARY VICK MR#: [id number] : 1955 Acct:[id number] Age/Sex: 68 / F ADM Date: 06/25/24 Loc: Attending Dr: Raudel Royal M.D. Ordering Physician: Raudel Royal M.D. Date of Service: 06/25/24 Procedure(s): XR wrist LT min 3V Accession Number(s): [id number] cc: NATIVIDAD SILVA ; Raudel Royal M.D. [place] [address] Patient Name: MARY VICK MRN: [id number] date: 1955 Sex: F Assigned Patient Location: Current Patient Location: Accession/Order Number: [id number] Exam Date: 06/25/2024 08:35 Report Date: 06/27/2024 [...] Signed By: 06/27/24 1546 DD/ 154 TD/TT: Freight Representative: [place] [address] XRay Report Signed Patient: CHRISTINA VICK MR#: [id number] : 1955 Acct:[id number] Age/Sex: 68 / F ADM Date: 06/25/24 Loc: EC Attending Dr: Raudel Royal M.D. Ordering Physician: Raudel Royal M.D. Date of Service: 06/25/24 Procedure(s): XR wri st LT min 3V Accession Number(s): [id number] cc: NATIVIDAD SILVA ; Raudel Royal M.D. The [place] [address] Patient Name: MARY VICK MRN: [id number] date: 1955 Sex: F Assigned Patient Location: Current Patient Location: Accession/Order Numb er: [id number] Exam Date: 06/25/2024 08:35 Report Date: 06/27/2024 [...] Signed By: 06/27/24 1546 DD/ 1544 TD/TT: Freight Representative: XR chest 1V Reviewed date:06/18/2024 12:30:48 PM Interpretation: Performing Lab: Notes/Report: Source Facility: [place] [address] XRay Report Signed Patient: MARY VICK MR#: [id number] : 1955 Acct:[id number] Age/Sex: 68 / F ADM Date: 06/17/24 Loc: ER Attending Dr: Ordering Physician: Catherine Bales Date of Service: 06/17/24 Procedure(s): XR chest 1V Accession Number(s): [id number] cc: NATIVIDAD SILVA ; Catherine Bales [place] [address] Patient Name: MARY VICK MRN: [id number] date: 1955 Sex: F Assigned Patient Location: ER Current Patient Location: ER Accession/Order Number: [id number] Exam Date: 06/17/2024 11:15 Report Date: 06/17/2024 [...] Signed By: 06/17/24 1321 DD/ 1319 TD/TT: Freight Representative: [place] [address] XRay Report Signed Patient: CHRISTINA VICK MR#: [id number] : 1955 Acct:[id number] Age/Sex: 68 / F ADM Date: 06/17/24 Loc: ER Attending Dr: Ordering Physician: Catherine Bales Date of Service: 06/17/24 Procedure(s): XR chest 1V Accession Number(s): [id number] cc: NATIVIDAD SILVA ; Catherine Bales The [place] [id number] Patient Name: MARY VICK MRN: [facility]:[id number] date: 1955 Sex: F Assigned Patient Location: ER Current Patient Loca tion: ER Accession/Order Numb er: [id number] Exam Date: 06/17/2024 11:15 Report Date: 06/17/2024 [...] Signed By: 06/17/24 1321 DD/ 1319 TD/TT: Freight Representative: ECG 12 lead Reviewed date:06/18/2024 12:30:48 PM Interpretation: Performing Lab: Notes/Report: Source Facility: [place] [address] [place] [address] Electrocardiograph Report Signed Patient: MARY VICK MR#: [id number] : 1955 Acct:[id number] Age/Sex: 68 / F ADM Date: 06/17/24 Loc: ER Attending Dr: Ordering Physician: Catherine Bales Date of Service: 06/17/24 Procedure(s): ECG 12 lead Accession Number(s): [id number] cc: [facility] Test Date: 2024-06-17 Pat Name: MARY VICK Department: Room: - 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 Signed By: 06/18/24924 DD/ 105 TD/TT: Freight Representative: Troponin I High Sensitivity Reviewed date:06/18/2024 12:30:48 PM Interpretation: Performing Lab: Notes/Report: [facility] , Troponin I High Sensitivity 5.3 4.0-51.3 pg/mL CUT-OFF POINTS HAVE BEEN ESTABLISHED BASED ON THE FOURTH UNIVERSAL DEFINITION OF MYOCARDIAL INFARCTION. THE UPPER REFERENCE LIMIT (URL) OF TROPONIN, DEFINED THE 99TH PERCENTILE OF cTnI DISTRIBUTION IN A REFERENCE POPULATION, HAS BEEN CONFIRMED THE DECISION THRESHOLD FOR DC DIAGNOSIS. 99TH PERCENTILE = 51.4 PG/ML NOTE: HIGH-SENSITIVITY TROPONIN ASSAY IS NOT INTENDED TO BE USED IN ISOLATION BUT SHOULD BE INTERPRETED IN CONJUNCTION WITH OTHER DIAGNOSTIC AND CLINICAL INFORMATION. Performing Lab: see note ML - The [facility] LB PROF 14(COMP METB) Reviewed date:06/18/2024 12:30:48 PM Interpretation: Performing Lab: Notes/Report: [facility] , Sodium 138 136-145 mmol/L Potassium 4.4 [...] 0.8 Performing Lab: see note ML - [facility] LB D-DIMER Reviewed date:06/18/2024 12:30:48 PM Interpretation: Performing Lab: Notes/Report: [facility] , D Dimer 3.27 <=0.59 mg/L FEU [...] Lab: see note ML - [facility] LB CBC AUTO DIFF Reviewed date:06/18/2024 12:30:48 PM Interpretation: Performing Lab: Notes/Report: [facility] , White Blood Count 9.0 4.0-11.0 10 [...] Performing Lab: see note ML - The [facility] FL fluoroscopy <1hr NON-READ Reviewed date:06/13/2024 12:18:22 PM Interpretation: Performing Lab: Notes/Report: Source Facility: [place] [address] Fluoroscopy Report Signed Patient: MARY VICK MR#: [id number] : 1955 Acct:[id number] Age/Sex: 68 / F ADM Date: 06/11/24 Loc: SURGOUT Attending Dr: Raudel Royal M.D. Ordering Physician: Raudel Royal M.D. Date of Service: 06/11/24 Procedure(s): FL fluoroscopy <1hr NON-READ Accession Number(s): [id number] cc: NATIVIDAD SILVA ; Raudel Royal M.D. [address] [address] Patient Name: MARY VICK MRN: [id number] date: 1955 Sex: F Assigned Patient Location: [facility] Current Patient Location: Accession/Order Number: [id number] Exam Date: 06/11/2024 15:25 Report Date: 06/13/2024 07:28 At the request of: RAUDEL ROYAL Procedure: FL fluoroscopy <1hr NON-READ EXAM: FL fluoroscopy <1hr NON-READ HISTORY: TECHNIQUE: FINDINGS: Please see Operative Report. Electronically authenticated by: RADIOLOGIST ELIZABETH Date: 06/13/2024 07:28 Dictated By: Elizabeth,Radiologist Signed By: 06/13/24729 DD/ 7 TD/TT: Freight Representative: [place] [address] Fluoroscopy Report Signed Patient: CHRISTINA VICK MR#: [id number] : 1955 Acct:[id number] Age/Sex: 68 / F ADM Date: 06/11/24 Loc: SURGOUT Attending Dr: Raudel Royal M.D. Ordering Physician: Raudel Royal M.D. Date of Service: 06/11/24 Procedure(s): FL fluoroscopy <1hr NON-READ Accession Number(s): [id number] cc: NATIVIDAD SILVA Steven C M.D. The [address] [address] Patient Name: MARY VICK MRN: [id number] date: 1955 Sex: F Assigned Patient Location: [facility] Current Patient Location: Accession/Order Numb er: [id number] Exam Date: 06/11/2024 15:25 Report Date: 06/13/2024 07:28 At the request of: RAUDEL ROYAL Procedure: FL fluoro scopy <1hr NON-READ EXAM: FL fluoroscopy <1hr NON-READ HISTORY: TECHNIQUE: FINDINGS: Please see Operative Report. Electronically authenticated by: RADIOLOGIST ELIZABETH Date: 06/13/2024 07:28 Dictated By: ElizabethRadiologist Signed By: 06/13/24 0730 DD/ 7 TD/TT: Freight Representative: ECG 12 lead Reviewed date:06/12/2024 04:07:12 PM Interpretation: Performing Lab: Notes/Report: Source Facility: [place] [address] [place] [address] Electrocardiograph Report Signed Patient: MARY VICK MR#: [id number] : 1955 Acct:[id number] Age/Sex: 68 / F ADM Date: 06/11/24 Loc: SURGOUT Attending Dr: Raudel Royal M.D. Ordering Physician: Bull Maria M.D. 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 Signed By: 06/11/24 1757 DD/ 1340 TD/TT: Freight Representative: [place] [address] Electrocardiograph Report Signed Patient: CHRISTINA VICK MR#: [id number] : 1955 Acct:[id number] Age/Sex: 68 / F ADM Date: 06/11/24 Loc: SURGOUT Attending Dr: Raudel Royal M.D. Ordering Physician: Bull Maria M.D. 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 Signed By: 06/11/24 1179 DD/ 1340 TD/TT: Freight Representative: CBC AUTO DIFF Reviewed date:06/12/2024 04:07:12 PM Interpretation: Performing Lab: Notes/Report: [facility] , White Blood Count 9.1 4.0-11.0 10 [...] Lab: see note ML - The [facility] LB XR chest 2V Reviewed date:06/07/2024 12:42:46 PM Interpretation: Performing Lab: Notes/Report: Source Facility: [place] [address] XRay Report Signed Patient: MARY VICK MR#: [id number] : 1955 Acct:[id number] Age/Sex: 68 / F ADM Date: 06/06/24 Loc: [place] 220-[address]: Travis Townsend M.D. Ordering Physician: Travis Townsend M.D. Date of Service: 06/07/24 Procedure(s): XR chest 2V Accession Number(s): [id number] cc: NATIVIDAD SILVA ; Travis Townsend M.D. [place] [address] Patient Name: MARY VICK MRN: [facility]:[id number] date: 1955 Sex: F Assigned Patient Location: [place] Current Patient Location: [place] Accession/Order Number: [id number] Exam Date: 06/07/2024 08:45 Report Date: 06/07/2024 [...] M.D. Signed By: 06/07/24902 DD/ 9 TD/TT: Freight Representative: [place] [address] XRay Report Signed Patient: CHRISTINA VICK MR#: [id number] : 1955 Acct:[id number] Age/Sex: 68 / F ADM Date: 06/06/24 Loc: [place] 220-[address]: Ga Townsend M.D. Ordering Physician: Travis Townsend M.D. Date of Service: 06/07/24 Procedure(s): XR chest 2V Accession Number(s): [id number] cc: NATIVIDAD SILVA ; Travis Townsend M.D. The [place] [address] Patient Name: MARY VICK MRN: [id number] date: 1955 Sex: F Assigned Patient Location: [place] Current Patient Loca tion: [place] Accession/Order Numb er: [id number] Exam Date: 06/07/2024 08:45 Report Date: 06/07/2024 [...] M.D. Signed By: 06/07/24902 DD/ 9 TD/TT: Freight Representative: UA RANDOM W or MICROSCOPIC Reviewed date:06/07/2024 12:42:46 PM Interpretation: Performing Lab: Notes/Report: [facility] , Color Urine YELLOW YELLOW Clarity Urine CLEAR CLEAR Specific [place] Urine >=1.030 1.005-1.025 pH Urine 5.5 5.0-9.0 [...] #/LPF Performing Lab: see note ML - [facility] LB PROF 14(COMP METB) Reviewed date:06/07/2024 12:42:46 PM Interpretation: Performing Lab: Notes/Report: [facility] , Sodium 138 136-145 mmol/L Potassium 3.6 [...] Lab: see note ML - [facility] LB CBC AUTO DIFF Reviewed date:06/07/2024 12:42:46 PM Interpretation: Performing Lab: Notes/Report: [facility] , White Blood Count 7.5 4.0-11.0 10 [...] Lab: see note ML - [facility] LB Troponin I High Sensitivity Reviewed date:06/06/2024 06:59:30 PM Interpretation: Performing Lab: Notes/Report: [facility] , Troponin I High Sensitivity 5.6 4.0-51.3 pg/mL CUT-OFF POINTS HAVE BEEN ESTABLISHED BASED ON THE FOURTH UNIVERSAL DEFINITION OF MYOCARDIAL INFARCTION. THE UPPER REFERENCE LIMIT (URL) OF TROPONIN, DEFINED THE 99TH PERCENTILE OF cTnI DISTRIBUTION IN A REFERENCE POPULATION, HAS BEEN CONFIRMED THE DECISION THRESHOLD FOR DC DIAGNOSIS. 99TH PERCENTILE = 51.4 PG/ML NOTE: HIGH-SENSITIVITY TROPONIN ASSAY IS NOT INTENDED TO BE USED IN ISOLATION BUT SHOULD BE INTERPRETED IN CONJUNCTION WITH OTHER DIAGNOSTIC AND CLINICAL INFORMATION. Performing Lab: see note ML - [facility] LB CT cervical spine wo con Reviewed date:06/06/2024 06:59:30 PM Interpretation: Performing Lab: Notes/Report: Source Facility: [place] [address] CT Scan Report Signed Patient: MARY VICK MR#: [id number] : 1955 Acct:[id number] Age/Sex: 68 / F ADM Date: 06/06/24 Loc: [place] 220-[address]: Travis Townsend M.D. Ordering Physician: Lesia Holguin D.O. Date of Service: 06/06/24 Procedure(s): CT cervical spine wo con Accession Number(s): [id number] cc: NATIVIDAD SILVA [place] [address] Patient Name: MARY VICK MRN: [id number] date: 1955 Sex: F Assigned Patient Location: ER Current Patient Location: [place] Accession/Order Number: [id number] Exam Date: 06/06/2024 09:14 Report Date: 06/06/2024 [...] M.D. Signed By: 06/06/241516 DD/ 14 TD/TT: Freight Representative: [place] [address] CT Scan Report Signed Patient: CHRISTINA VICK MR#: [id number] : 1955 Acct:[id number] Age/Sex: 68 / F ADM Date: 06/06/24 Loc: [place] 220-[address]: Ga Townsend M.D. Ordering Physician: eLsia Holguin D.O. Date of Service: 06/06/24 Procedure(s): CT cer vical spine wo con Accession Number(s): [id number] cc: NATIVIDAD SILVA [place] [address] Patient Name: MARY VICK MRN: [id number] date: 1955 Sex: F Assigned Patient Location: ER Current Patient Loca tion: [place] Accession/Order Numb er: [id number] Exam Date: 06/06/2024 09:14 Report Date: 06/06/2024 [...] M.D. Signed By: 06/06/241516 DD/ 14 TD/TT: Freight Representative: XR wrist LT min 3V Reviewed date:06/06/2024 10:53:15 AM Interpretation: Performing Lab: Notes/Report: Source Facility: [place] [address] [place] [address] XRay Report Signed Patient: MARY VICK MR#: [id number] : 1955 Acct:[id number] Age/Sex: 68 / F ADM Date: 06/06/24 Loc: ER Attending Dr: Ordering Physician: Lesia Holguin D.O. Date of Service: 06/06/24 Procedure(s): XR wrist LT min 3V Accession Number(s): [id number] cc: NATIVIDAD SILVA ; Lesia Holguin D.O. [place] [address] Patient Name: MARY VICK MRN: [id number] date: 1955 Sex: F Assigned Patient Location: ER Current Patient Location: ER Accession/Order Number: [id number] Exam Date: 06/06/2024 09:14 Report Date: 06/06/2024 [...] Signed By: 06/06/24 1033 DD/ 1030 TD/TT: Freight Representative: [place] [address] XRay Report Signed Patient: CHRISTINA VICK MR#: [id number] : 1955 Acct:[id number] Age/Sex: 68 / F ADM Date: 06/06/24 Loc: ER Attending Dr: Ordering Physician: Lesia Holguin D.O. Date of Service: 06/06/24 Procedure(s): XR wri st LT min 3V Accession Number(s): [id number] cc: NATIVIDAD SILVA ; Lesia Holguin D.O. [place] [id number] Patient Name: MARY VICK MRN: [id number] date: 1955 Sex: F Assigned Patient Location: ER Current Patient Loca tion: ER Accession/Order Numb er: [id number] Exam Date: 06/06/2024 09:14 Report Date: 06/06/2024 [...] Signed By: 06/06/24 1033 DD/ 1030 TD/TT: Freight Representative: CT head/brain wo con Reviewed date:06/06/2024 06:59:30 PM Interpretation: Performing Lab: Notes/Report: Source Facility: [place] [address] CT Scan Report Signed Patient: MARY VICK MR#: [id number] : 1955 Acct:[id number] Age/Sex: 68 / F ADM Date: 06/06/24 Loc: [place] 220-[address]: Travis Townsend M.D. Ordering Physician: Lesia Holguin D.O. Date of Service: 06/06/24 Procedure(s): CT head/brain wo con Accession Number(s): [id number] cc: NATIVIDAD SILVA [place] [address] Patient Name: MARY VICK MRN: [id number] date: 1955 Sex: F Assigned Patient Location: ER Current Patient Location: [place] Accession/Order Number: [id number] Exam Date: 06/06/2024 09:14 Report Date: 06/06/2024 [...] is intact. No skull fracture. Nasopharynx normal. Meter Installer And Remover spaces normal. Orbital contents are unremarkable. Mild [...] Quintana M.D. Signed By: 06/06/24 1517 DD/ TD/TT: Freight Representative: [place] [address] CT Scan Report Signed Patient: CHRISTINA VICK MR#: [id number] : 1955 Acct:[id number] Age/Sex: 68 / F ADM Date: 06/06/24 Loc: [place] 220-[address]: Ga Townsend M.D. Ordering Physician: Lesia Holguin D.O. Date of Service: 06/06/24 Procedure(s): CT head/brain wo con Accession Number(s): [id number] cc: NATIVIDAD SILVA [address] [address] Patient Name: MARY VICK MRN: [id number] date: 1955 Sex: F Assigned Patient Location: ER Current Patient Loca tion: [place] Accession/Order Numb er: [id number] Exam Date: 06/06/2024 09:14 Report Date: 06/06/2024 [...] is intact. No skull fracture. Nasopharynx normal. Meter Installer And Remover spaces normal. Orbital contents are unremarkable. Mild [...] chronic microvascular changes. Electronically authenticated by: OLEG QUINTAAN Date: 06/06/2024 15:15 Dictated By: Sharee Quintana M.D. Signed By: 06/06/247 DD/ 14 TD/TT: Freight Representative: CT chest wo con Reviewed date:06/06/2024 06:59:30 PM Interpretation: Performing Lab: Notes/Report: Source Facility: [place] [address] CT Scan Report Signed Patient: MARY VICK MR#: [id number] : 1955 Acct:[id number] Age/Sex: 68 / F ADM Date: 06/06/24 Loc: ER Attending Dr: Ordering Physician: Lesia Holguin D.O. Date of Service: 06/06/24 Procedure(s): CT chest wo con Accession Number(s): [id number] cc: NATIVIDAD SILVA [place] [address] Patient Name: MARY VICK MRN: [id number] date: 1955 Sex: F Assigned Patient Location: ER Current Patient Location: ER Accession/Order Number: [id number] Exam Date: 06/06/2024 09:14 Report Date: 06/06/2024 [...] Signed By: 06/06/24 1159 DD/ 1156 TD/TT: Freight Representative: [address] [address] [address] Scan Report Signed Patient: CHRISTINA VICK MR#: [id number] : 1955 Acct:[id number] Age/Sex: 68 / F ADM Date: 06/06/24 Loc: ER Attending Dr: Ordering Physician: Lesia Holguin D.O. Date of Service: 06/06/24 Procedure(s): CT ilana st wo con Accession Number(s): [id number] cc: NATIVIDAD SILVA [place] [id number] Patient Name: MARY VICK MRN: [id number] date: 1955 Sex: F Assigned Patient Location: ER Current Patient Loca tion: ER Accession/Order Numb er: [id number] Exam Date: 06/06/2024 09:14 Report Date: 06/06/2024 [...] lobe pulm onary nodule measuring 0.6 cm (3/). Moderate degeneratio n of the lower thoracic [...] Signed By: 06/06/24 1159 DD/ 1156 TD/TT: Freight Representative: CT FACIAL BONES WO CON Reviewed date:06/06/2024 06:59:30 PM Interpretation: Performing Lab: Notes/Report: Source Facility: [facility] [place] [address] [place] [address] CT Scan Report Signed Patient: MARY VICK MR#: [id number] : 1955 Acct:[id number] Age/Sex: 68 / F ADM Date: 06/06/24 Loc: [place] 220-[address]: Travis Townsend M.D. Ordering Physician: Lesia Holguin D.O. Date of Service: 06/06/24 Procedure(s): CT facial bones wo con Accession Number(s): [id number] cc: NATIVIDAD SILVA [place] [id number] Patient Name: MARY VICK MRN: [id number] date: 1955 Sex: F Assigned Patient Location: ER Current Patient Location: [place] Accession/Order Number: [id number] Exam Date: 06/06/2024 09:14 Report Date: 06/06/2024 [...] Signed By: 06/06/24 1517 DD/ 14 TD/TT: Freight Representative: [place] [address] CT Scan Report Signed Patient: CHRISTINA VICK MR#: [id number] : 1955 Acct:[id number] Age/Sex: 68 / F ADM Date: 06/06/24 Loc: 220-[address]: Ga Townsend M.D. Ordering Physician: Lesia Holguin D.O. Date of Service: 06/06/24 Procedure(s): CT fac ial bones wo con Accession Number(s): [id number] cc: NATIVIDAD SILVA [place] [address] Patient Name: MARY VICK MRN: [id number] date: 1955 Sex: F Assigned Patient Location: ER Current Patient Loca tion: [place] Accession/Order Numb er: [id number] Exam Date: 06/06/2024 09:14 Report Date: 06/06/2024 [...] acial bone fracture. Electronically authenticated by: OLEG Durbin: 06/06/2024 15:15 Dictated By: Sharee Quintana M.D. Signed By: 06/06/24 1517 DD/ 14 TD/TT: Freight Representative: Prothrombin Time INR Reviewed date:06/06/2024 09:21:21 AM Interpretation: Performing Lab: Notes/Report: [facility] , Prothrombin Time 10.4 9.0-11.6 sec INR 0.98 DESIRED INR: 2.0-3.0 CONDITIONS NOT LISTED BELOW 2.5-3.5 FOR PROSTHETIC HEART VALVE REPLACEMENT 2.5-3.5 RECURRENT THROMBOSIS Performing Lab: see note - [facility] LB PROF 14(COMP METB) Reviewed date:06/06/2024 09:21:21 AM Interpretation: Performing Lab: Notes/Report: [facility] , Sodium 142 136-145 mmol/L Potassium 4.0 [...] 1.0 Performing Lab: see note ML - [facility] LB CBC AUTO DIFF Reviewed date:06/06/2024 09:21:21 AM Interpretation: Performing Lab: Notes/Report: [facility] , White Blood Count 8.4 4.0-11.0 10 [...] 3/uL Performing Lab: see note ML - [facility] LIPID PROFILE Reviewed date:05/03/2024 11:25:54 AM Interpretation: Performing Lab: Notes/Report: [facility] , Triglycerides 74 <=150 mg/dL Cholesterol 206 [...] Performing Lab: see note ML - [facility] CT head/brain wo con Reviewed date:03/19/2024 08:22:34 AM Interpretation: Performing Lab: Notes/Report: Source Facility: [place] [address] CT Scan Report Signed Patient: MARY VICK MR#: [id number] : 1955 Acct:[id number] Age/Sex: 68 / F ADM Date: 03/18/24 Loc: ER Attending Dr: Ordering Physician: Catherine Bales Date of Service: 03/18/24 Procedure(s): CT head/brain wo con Accession Number(s): [id number] cc: NATIVIDAD SILVA [place] [address] Patient Name: MARY VICK MRN: [id number] date: 1955 Sex: F Assigned Patient Location: ED.MAIN Current Patient Location: ED.MAIN Accession/Order Number: [id number] Exam Date: 03/18/2024 18:35 Report Date: 03/18/2024 [...] M.D. Signed By: 03/18/241922 DD/ 19 TD/TT: Freight Representative: [address] [address] [address] Scan Report Signed Patient: CHRISTINA VICK MR#: [id number] : 1955 Acct:[id number] Age/Sex: 68 / F ADM Date: 03/18/24 Loc: ER Attending Dr: Ordering Physician: Catherine Bales Date of Service: 03/18/24 Procedure(s): CT head/brain wo con Accession Number(s): [id number] cc: NATIVIDAD SILVA [place] [id number] Patient Name: MARY VICK MRN: [id number] date: 1955 Sex: F Assigned Patient Location: ED.MAIN Current Patient Loca tion: ED.MAIN Accession/Order Numb er: [id number] Exam Date: 18:35 Report Date: 03/18/2024 19:20 [...] M.D. Signed By: 03/18/241922 DD/ 19 TD/TT: Freight Representative: XR knee LUANA 4V Reviewed date:02/20/2024 09:47:36 AM Interpretation: Performing Lab: Notes/Report: Source Facility: [place] [address] XRay Report Signed Patient: MARY VICK MR#: [id number] : 1955 Acct:[id number] Age/Sex: 68 / F ADM Date: 02/16/24 Loc: RAD Attending Dr: Non-Staff Physician Liudmila Ordering Physician: PhysicianVanessa M.D. Date of Service: 02/16/24 Procedure(s): XR knee LUANA 4V Accession Number(s): [id number] cc: NATIVIDAD SILVA ; PhysicianVanessa M.D. [place] [address] Patient Name: MARY VICK MRN: [id number] date: 1955 Sex: F Assigned Patient Location: [facility] Current Patient Location: [facility] Accession/Order Number: [id number] Exam Date: 02/16/2024 15:40 Report Date: 02/18/2024 [...] M.D. Signed By: 02/18/24453 DD/ 1 TD/TT: Freight Representative: [place] [address] XRay Report Signed Patient: CHRISTINA VICK MR#: [id number] : 1955 Acct:[id number] Age/Sex: 68 / F ADM Date: 02/16/24 Loc: RAD Attending Dr: Sebastián Marinelli M.D. Ordering Physician: PhysicianSaminaStaff Liudmila Date of Service: 02/16/24 Procedure(s): XR kne e LUANA 4V Accession Number(s): [id number] cc: NATIVIDAD SILVA ; PhysicianNon-Staff Liudmila [place] [id number] Patient Name: MARY VICK MRN: [id number] date: 1955 Sex: F Assigned Patient Location: [facility] Current Patient Loca tion: SURGOUT Accession/Order Numb er: [id number] Exam Date: 02/16/2024 15:40 Report Date: 02/18/2024 [...] M.D. Signed By: 02/18/24453 DD/ 1 TD/TT: Freight Representative: CT lung screening low-dose Reviewed date:10/25/2024 11:04:31 AM Interpretation: Performing Lab: Notes/Report: Source Facility: [place] [address] CT Scan Report Signed Patient: MARY VICK MR#: [id number] : 1955 Acct:[id number] Age/Sex: 69 / F ADM Date: 10/23/24 Loc: CT Attending Dr: NATIVIDAD SILVA Ordering Physician: NATIVIDAD SILVA Date of Service: 10/23/24 Procedure(s): CT lung screening low-dose Accession Number(s): [id number] cc: NATIVIDAD SILVA [place] [address] Patient Name: MARY VICK MRN: [id number] date: 1955 Sex: F Assigned Patient Location: CT Current Patient Location: Accession/Order Number: [id number] Exam Date: 10/23/2024 15:17 Report Date: 10/24/2024 [...] Mendez M.D. 10/24/2024 12:10 AM Dictation Location: [place] [address] Electronically authenticated by: [id number] Y Date: 10/24/2024 00:10 Dictated By: Ghanshyam Mendez D.O. Signed By: 10/24/24 001 DD/ TD/TT: Freight Representative: [place] [address] CT Scan Report Signed Patient: CHRISTINA VICK MR#: [id number] : 1955 Acct:[id number] Age/Sex: 69 / F ADM Date: 10/23/24 Loc: CT Attending Dr: NATIVIDAD SILVA Ordering Physician: NATIVIDAD SILVA Date of Service: 10/23/24 Procedure(s): CT payton g screening low-dose Accession Number(s): [id number] cc: NATIVIDAD SILVA [address] [address] [address] Patient Name: MARY VICK MRN: [id number] date: 1955 Sex: F Assigned Patient Location: CT Current Patient Location: Accession/Order Numb er: [id number] Exam Date: 10/23/2024 15:17 Report Date: 10/24/2024 [...] Mendez M.D. 10/24/2024 12:10 AM Dictation Location: [facility] Electronically authenticated by: [id number] Y Date: 10/24/2024 00:10 Dictated By: Kenn Mendez D.O. Signed By: 10/24/2412 DD/ TD/TT: Freight Representative: DIEGO echo doppler complete Reviewed date:12/19/2024 08:56:32 AM Interpretation: Performing Lab: Notes/Report: Source Facility: [place] [address] Cardiology Report Signed Patient: MARY VICK MR#: [id number] : 1955 Acct:[id number] Age/Sex: 69 / F ADM Date: 12/18/24 Loc: CARD Attending Dr: Miriam Pelaez M.D. Ordering Physician: Miriam Pelaez M.D. Date of Service: 12/18/24 Procedure(s): DIEGO echo doppler complete Accession Number(s): [id number] cc: NATIVIDAD SILVA ; Miriam Pelaez M.D. Patient Name: MARY VICK MR#: [id number] : 1955 Exam Date: 12/18/2024 Ordering Doctor: DR MIRIAM PELAEZ M.D. ECHOCARDIOGRAM REPORT PROCEDURE: CA ECHO DOPPLER COMPLETE INDICATIONS: Mitral and aortic valve insufficiency COMPARISON: None. DESCRIPTION: COMPLETE ECHOCARDIOGRAM Real-time transthoracic echocardiography with 2D, M-mode, spectral and color flow Doppler performed. QUALITY: Technical quality was good. LEFT VENTRICLE: Normal chamber size. Mild concentric left ventricular hypertrophy. Global left ventricular systolic function is normal. LV EF: Estimated left ventricular ejection fraction is 60%. DIASTOLIC: Grade I diastolic dysfunction. ATRIAL SEPTUM: LEFT ATRIUM: Mild dilatation. RIGHT ATRIUM: Mild dilatation. RIGHT VENTRICLE: Mild dilatation. Normal right ventricular systolic function. TRICUSPID VALVE: Normal mobility and thickness. No stenosis with trivial regurgitation. Mild pulmonary hypertension. RVSP 35 mmHg MITRAL VALVE: Normal mobility and thickness. No evidence of mitral valve stenosis. Mild mitral annular calcification. Trivial mitral regurgitation. AORTIC VALVE: Normal trileaflet appearance. No visible sclerosis. Normal leaflet mobility. No evidence of aortic valve stenosis. Mild aortic regurgitation. AORTIC ROOT: Normal diameter and appearance, measuring 3.4 cm. The ascending aorta is normal in size measuring 3.4 cm. PULMONIC VALVE: Normal thickness and mobility. No stenosis. Trivial regurgitation. PERICARDIUM: No evidence of pericardial effusion. Fat pad is noted anterior to the right ventricle. IVC: Collapses with inspiration. Normal size. PLEURA: CONCLUSION: 1. Mild concentric left ventricular hypertrophy with normal systolic function. Estimated LVEF is 60%. 2. The right ventricle is mildly dilated and exhibits normal systolic function. 3. Mild diastolic dysfunction. 4. Mild aortic valve regurgitation. 5. Trivial mitral regurgitation. 6. Mildly elevated right-sided pressures. Adult Echocardiography Procedure Report Left Ventricle LVEDD (3.7 - 5.6 cm): 5.15 cm LVESD (2.2 - 4.0 cm): 2.96 cm LVIVS thickness (0.6 - 1.2 cm): 1.02 cm LVPW thickness (0.5 - 1.0 cm): 1.17 cm e': 0.08 m/s E - e': 11.03 LVOT Max Gradient: 6.10 mm[Hg] LVOT Area (cm2): 1.24 m/s Peak Velocity (LVOT): 1.24 m/s Mean Velocity (LVOT): 0.91 m/s LVOT Diameter 2.05 cm Left Ventricular Ejection Fraction: 60 % Left Atrium LA Volume Index (2D A2C): 38.90 ml/m2 Left Atrium Systolic Dimension: 5.13 cm Mitral Valve MV E to A Ratio: 0.77 Mitral Valve A-Wave Peak Velocity: 1.12 m/s Mitral Valve E-Wave Peak Velocity: 0.86 m/s Right Ventricle RV Internal Diastolic Dimension: 4.29 cm Aorta AO Root Diam: 3.41 cm Ascending Ao Diam: 3.40 cm Aortic Valve AoV Area (Peak Scar): 2.39 cm2, 2.39 cm2 AoV Area (VTI): 2.55 cm2, 2.55 cm2 Deceleration [place]: 1.62 m/s2 Pressure Half-Time: 714.03 ms Peak Velocity(Antegrade Flow): 1.70 m/s Peak Gradient(Antegrade Flow): 11.60 mm[Hg] Mean Velocity(Antegrade Flow): 1.06 m/s Mean Gradient(Antegrade Flow): 5.45 mm[Hg] Velocity Time Integral: 28.39 cm Tricuspid Valve Peak Velocity (Regurgitant Flow): 2.68 m/s, 2.83 m/s Pulmonic Valve Mean Gradient: 3.67 mm[Hg], 2.30 mm[Hg] Mean Velocity: 0.88 m/s, 0.70 m/s Peak Velocity: 1.25 m/s Peak Gradient: 8.33 mm[Hg], 4.40 mm[Hg] Right Atrium Right Atrium Systolic Pressure: 40.51 ml, 40.51 ml Dictated by: Effie Cook M.D. on 12/18/2024 at 19:27 Approved by: Effie Cook M.D. on 12/18/2024 at 19:33 Dictated By: EFFIE COOK Signed By: 12/18/241933 DD/ 32 TD/TT: Freight Representative: [place] [address] Cardiology Report Signed Patient: CHRISTINA VICK MR#: [id number] : 1955 Acct:[id number] Age/Sex: 69 / F ADM Date: 12/18/24 Loc: CARD Attending Dr: Miriam Pelaez M.D. Ordering Physician: Miriam Pelaez M.D. Date of Service: 12/18/24 Procedure(s): CA ech o doppler complete Accession Number(s): [id number] cc: NATIVIDAD SILVA ; Miriam Pelaez M.D. Patient Name: MARY VICK MR#: [id number] : 1955 Exam Date: 12/18/2024 Ordering Doctor: DR MIRIAM PELAEZ M.D. ECHOCARDIOGRAM REPORT PROCEDURE: CA ECHO DOPPLER COMPLETE INDICATIONS: Mitral and aortic valve insufficiency COMPARISON: None. DESCRIPTION: COMPLET E ECHOCARDIOGRAM Real-time transthoracic echocardiography wit h 2D, M-mode, spectral and color flow Doppler performed. QUALITY: Technical quality was good. LEFT VENTRICLE: Norm al chamber size. Mild concentric left ventricular hypertrophy. Global left ventricular systolic function is normal. LV EF: Estimated lef t ventricular ejection fraction is 60%. DIASTOLIC: Grade I diastolic dysfunction. ATRIAL SEPTUM: LEFT ATRIUM: Mild dilatation. RIGHT ATRIUM: Mild dilatation. RIGHT VENTRICLE: Mil d dilatation. Normal right ventricular systolic function. TRICUSPID VALVE: Nor mal mobility and thickness. No stenosis with trivial regurgitation. Mild pulmonary hypertension. RVSP 35 mmHg MITRAL VALVE: Normal mobility and thickness. No evidence of mitral valve stenosis. Mild marry l annular calcification. Trivial mitral regurgitation. AORTIC VALVE: Normal trileaflet appearance. No visible sclerosis. Normal leaflet mobility. No evidence of aortic valve stenosis. Mild aortic regurgitation. AORTIC ROOT: Normal diameter and appearance, measuring 3.4 cm. The ascending aorta is n ormal in size measuring 3.4 cm. PULMONIC VALVE: Norm al thickness and mobility. No stenosis. Trivial regurgitation. PERICARDIUM: No evid ence of pericardial effusion. Fat pad is noted anterior to the righ t ventricle. IVC: Collapses with inspiration. Normal size. PLEURA: CONCLUSION: 1. Mild concentric l eft ventricular hypertrophy with normal systolic function. Estimated LVEF is 60%. 2. The right ventric le is mildly dilated and exhibits normal systolic function. 3. Mild diastolic dysfunction. 4. Mild aortic valve regurgitation. 5. Trivial mitral regurgitation. 6. Mildly elevated right-sided pressures. Adult Echocardiograp hy Procedure Report Left Ventricle LVEDD (3.7 - 5.6 cm) : 5.15 cm LVESD (2.2 - 4.0 cm) : 2.96 cm LVIVS thickness (0.6 - 1.2 cm): 1.02 cm LVPW thickness (0.5 - 1.0 cm): 1.17 cm e': 0.08 m/s E - e': 11.03 LVOT Max Gradient: 6 .10 mm[Hg] LVOT Area (cm2): 1.24 m/s Peak Velocity (LVOT) : 1.24 m/s Mean Velocity (LVOT) : 0.91 m/s LVOT Diameter 2.05 cm Left Ventricular Eje ction Fraction: 60 % Left Atrium LA Volume Index (2D A2C): 38.90 ml/m2 Left Atrium Systolic Dimension: 5.13 cm Mitral Valve MV E to A Ratio: 0.77 Mitral Valve A-Wave Peak Velocity: 1.12 m/s Mitral Valve E-Wave Peak Velocity: 0.86 m/s Right Ventricle RV Internal Diastoli c Dimension: 4.29 cm Aorta AO Root Diam: 3.41 cm Ascending Ao Diam: 3 .40 cm Aortic Valve AoV Area (Peak Scar): 2.39 cm2, 2.39 cm2 AoV Area (VTI): 2.55 cm2, 2.55 cm2 Deceleration [place]: 1.62 m/s2 Pressure Half-Time: 714.03 ms Peak Velocity(Antegr grace Flow): 1.70 m/s Peak Gradient(Antegr grace Flow): 11.60 mm[Hg] Mean Velocity(Antegr grace Flow): 1.06 m/s Mean Gradient(Antegr grace Flow): 5.45 mm[Hg] Velocity Time Integr al: 28.39 cm Tricuspid Valve Peak Velocity (Regurgitant Flow): 2.68 m/s, 2.83 m/s Pulmonic Valve Mean Gradient: 3.67 mm[Hg], 2.30 mm[Hg] Mean Velocity: 0.88 m/s, 0.70 m/s Peak Velocity: 1.25 m/s Peak Gradient: 8.33 mm[Hg], 4.40 mm[Hg] Right Atrium Right Atrium Systoli c Pressure: 40.51 ml, 40.51 ml Dictated by: Effie Cook M.D. on 12/18/2024 at 19:27 Approved by: Effie Cook M.D. on 12/18/2024 at 19:33 Dictated By: EFFIE COOK Signed By: 12/18/241933 DD/ 32 TD/TT: Freight Representative: Reason For Referral Diagnosis 1 Screening for colon cancer (Z12.11) Referral Organization [facility] Referring Provider First Name José Referring Provider Last Name Kristian Referring Provider [facility] araceli Referred Provider Ash Parson Referred Provider Specialty General Surg kamala Referral Priority Routine Reason COPD Diagnosis 1 COPD exacerbation (J 44.1) Referral Organization [facility] Referring Provider First Name Natividad Referring Provider Last Name Karine Referring Provider [facility] araceli Referred Provider Ronni Ac Referred Provider Specialty Pulmonary Di seases Referral Priority Routine Diagnosis 1 COPD (chronic obstru ctive pulmonary disease) (J44.9) Referral Organization [facility] Referring Provider First Name Natividad Referring Provider Last Name Karine Referring Provider Speciality Family Med araceli Referred Provider Ronni Ac Referred Provider Specialty Pulmonary Di seases Referral Priority Routine Medications Medication SIG (Take, Route, Frequency, Duration) Notes Start Date End Date Status busPIRone HCl 10 MG 1 tablet Orally Twice a day for 30 days 12/24/2024 Active Levothyroxine Sodium 50 MCG 1 tablet in the morning on an empty stomach Orally Once a day for 90 days Active Albuterol Sulfate (2.5 MG/3ML) 0.083% 3 mL as needed Inhalation every 6 hrs for 14 days Active Ondansetron HCl 4 MG 1 tablet Orally Once a day prn for 14 days PRN 02/29/2024 Active Abilify 30 MG 1 tablet Orally Once a day for 90 days Active Omeprazole Magnesium 20 MG 1 tablet 1/2 to 1 hour before morning meal Orally Once a day for 30 days Active Omeprazole 20 MG 1 capsule 1/2 to 1 hour before morning meal Orally BID for 30 days 08/27/2024 Active Lisinopril 20 MG 1 tablet Orally Once a day for 30 days Active Diclofenac Sodium 50 MG 1 tablet Orally Twice a day Active rOPINIRole HCl 1 MG 1 tablet 1 to 3 hours before bedtime Orally Once a day for 30 days Active Baclofen 5 MG 1 -2 tablet as needed Orally Once a day for 14 days 02/29/2024 Active PROzac 20 MG 4 capsule Orally once daily for 90 days Active oxyCODONE-Acetaminophe n 5-325 MG Oral for 30 Days Active Ketorolac Tromethamine 10 MG 1 tablet with food or milk as needed Orally every 8 hrs prn for 3 days hold diclofenac, ibuprofen while taking start 10/27/24 10/26/2024 Active Ferrous Sulfate 325 (65 Fe) MG 1 tablet Orally Three times a Week for 30 days 01/31/2024 Active Trelegy Ellipta 100-62.5-25 MCG/ACT 1 puff Inhalation Once a day for 30 days 04/09/2024 Active Immunizations Vaccine Route Administration Date Status Comme nts Flu, Fluzone High-Dose (9066 2) 65 yrs+ (8574-6976) Unknown 02/12/2022 Administered Pneumococcal (Pneumovax 23) Unknown [...] Problem Status W/U Status Risk Notes Problem 64374303 Age-related osteoporosis without current pathological fracture (M81.0) Active confirmed Problem Heart failure (95956817) Heart failure, unspecified (I50.9) Active confirmed Problem Atherosclerosis of aorta (79258243) Atherosclerosis of aorta (I70.0) Active confirmed Problem 19134423 Diaphragmatic hernia without obstruction or gangrene (K44.9) Active confirmed Problem Palpitations (23925374) Palpitations (R00.2) Active confirmed Problem Chest pain (37744156) Chest pain (R07.9) Active confirmed Problem COPD - Chronic obstructive pulmonary disease (53170754) COPD (chronic obstructive pulmonary disease) (J44.9) Active confirmed Problem Gastroesophageal reflux disease (707734403) GERD (gastroesophageal reflux disease) (K21.9) Active confirmed Problem Anxiety (44667675) Anxiety (F41.9) Active confi rmed Problem Hypothyroid (61548507) Hypothyroid (E03.9) Active confirmed Problem Insomnia (755954707) Insomnia (G47.00) Active confirmed Problem Migraine (45323549) Migraine (G43.909) Active c onfirmed Problem 720581300 COPD exacerbatio n (J44.1) Active confirmed Problem Osteoporosis (15215353) Osteoporosis (M81.0) Active confirmed Problem Acquired hypothyroidism (324683845) Acquired hypothyroidism (E03.9) Active confirmed Problem Dyspnea (002774374) Exertional shortness of breath (R06.02) Active confirmed Problem Rib fracture (93366196) Rib fracture (S22.39XA) Active confirmed Problem Leukocytosis (231185141) Leukocytosis (D72.829) Active confirmed Problem Iron deficiency anemia (84383602) Anemia, iron deficiency (D50.9) Active confirmed Problem Memory deficit (934456298) Memory deficit (R41.3) Active confirmed Problem Excessive caffeine intake (232810154938836) Excessive caffeine intake (Z91.89) Active confirmed Problem Essential hypertension (98531191) BP (high blood pressure) (I10) Active confirmed Problem Mixed anxiety and depressive disorder (658513948) Anxiety and depression (F41.8) Active confirmed Problem Mild pulmonary hypertension (690721338) Mild pulmonary hypertension (I27.20) Active confirmed Problem Obese class II (finding) (072156074649405) Class 2 obesity (E66.9) Active confirmed Problem 860119703 Abnormal finding s on diagnostic imaging of other specified body structures (R93.89) Active confirmed Problem Disease caused by Severe acute respiratory syndrome coronavirus 2 (disorder) (363809912) COVID (U07.1) Active confirmed Problem Supraventricular tachycardia (disorder) (6732459) Supraventricular tachycardia, unspecified (I47.10) Active confirmed Vital Signs Heart Rate 80 /min 12/24/2024 Oximetry 94 % 12/24/2024 Blood pressure diastolic 98 mm Hg 12/24/2024 Height 62 in 12/24/2024 Blood pressure systolic 158 mm Hg 12/24/2024 Weight 191.4 lbs 12/24/2024 BMI 35 kg/m2 12/24/2024 Procedures Procedure Date Ordered Date Performed Result Body Sit e PFT Complete 11/30/2024 N/A Six minute walk 11/30/2024 N/A Encounters Encounter Location Date Provider Diagnosis [facility] [address] [place] [address] 12/14/2024 Natividad Silva [facility] [address] [place] [address] 01/07/2025 Natividad Silva Anxiety F41.9 [facility] [address] [place] [address] 01/11/2025 Natividad Silva [facility] [address] [facility] [place] [address] 11/05/2024 Natividad Silva [facility] [address] [facility] [place] [address] 11/26/2024 Natividad Silva [facility] [address] [facility] [place] [address] 11/30/2024 Natividad Silva SOB (shortness of breath) R06.02 [facility] [address] [facility] [place] [address] 12/05/2024 Natividad Silva [facility] [address] [facility] [address] [place] [address] 12/05/2024 Natividad Silva COPD exacerbation J4 4.1 [facility] [address] [facility] [place] [address] 12/11/2024 Natividad Silva COPD (chronic obstructive pulmonary disease) J44.9 [facility] [address] [facility] [place] [address] 08/27/2024 Natividad Silva [facility] [address] [place] [address] 09/05/2024 Natividad Silva [facility] [address] [place] [address] 09/27/2024 Natividad Silva [facility] [address] [facility] [place] [address] 10/02/2024 Natividad Silva Abnormal findings on diagnostic imaging of other specified body structures R93.89 [facility] [address] [facility] [place] [address] 10/03/2024 Natividad Silva [facility] [address] [place] [address] 10/26/2024 Natividad Silva Compression fracture of body of thoracic vertebra S22.000A and Osteoporosis M81.0 [facility] [address] [place] [address] 05/03/2024 Natividad Silva [facility] [address] [place] [address] 05/21/2024 Natividad Silva Migraine G43.909 [facility] [address] [place] [address] 06/07/2024 José Moyay [facility] [address] [place] [address] 08/10/2024 Natividad Silva [facility] [address] [place] [address] 08/15/2024 Natividad Silva [facility] [address] [place] [address] 08/27/2024 Natividad Silva Migraine G43.909 [facility] [address] [place] [address] 01/27/2024 Natividad Silva [facility] [address] [place] [address] 02/06/2024 Natividad Silva Hypothyroid E03.9 [facility] [address] [place] [address] 02/08/2024 José Townsend Screening for breast cancer Z12.31 [facility] [address] [place] [address] 02/22/2024 José Townsend [facility] [address] [place] [address] 03/09/2024 Natividad Silva Migraine G43.909 [facility] [address] [place] [address] 03/19/2024 Natividad Silva Migraine G43.909 [facility] [address] [place] [address] 02/08/2024 José Townsend Encounter for Medica re annual wellness exam Z00.00 [facility] [address] [place] [address] 10/26/2024 Natividad Silva Osteoporosis M81.0 ; Hypothyroid E03.9 and Compression fracture of body of thoracic vertebra S22.000A [address] [address] 11/30/2024 Natividadena Silva COPD exacerbation J4 4.[address] [address] 12/24/2024 Natividad Silva Heart failure, unspecified I50.9 ; Anxiety F41.9 and Mild pulmonary hypertension I27.[address] [address] 02/29/2024 Natividad Karine Migraine G43.[address] [address] 03/16/2024 Natividad Karine Migraine G43.[address] [address] 04/09/2024 Natividad Karine COPD exacerbation J4 4.[address] [place] [address] 10/09/2024 Natividad Kraine Migraine G43.[address] [address] 05/01/2024 Natividad Karine Atherosclerosis of a manda I70.0 ; Class 2 obesity E66.9 and Mild pulmonary hypertension I27.[address] [address] 03/19/2024 Natividad Karine Migraine G43.909 Assessments Encounter Date Diagnosis (ICD Code) Assessment Notes Treatment Notes Treatment Clinical Notes Section Notes 02/08/2024 Encounter for Medicare annual wellness exam [...] monitor pulse ox, to ER if needed 12/24/2024 Heart failure, unspecified (ICD-10 - I50.9) follows with cardiology 12/24/2024 Anxiety (ICD-10 - F41.9) stop amitrip, discussed with patient, verbalizes understanding said taking for sleep but doesnt think helps much trial of buspirone, stop if SE fu 1m, prn 02/06/2024 Hypothyroid (ICD-10 - E03.9) 02/08/2024 Screening [...] (chronic obstructive pulmonary disease) (ICD-10 - J44.9) 01/07/2025 Anxiety (ICD-10 - F41.9) 12/24/2024 Mild pulmonary hypertension (ICD-10 - I27.20) follows with cardiology upcoming pulm apt 10/26/2024 Compression fracture of body of thoracic [...] Date [employer] ADV PLAN [address] [place] [address] [id number] [facility] Self - patient is the [...]
--- OUTSIDE RECORDS SUMMARY | 2025-01-21 14:20 | XMS_ITS | Clinical Summary ---
Author Organization [facility] Address [address] [place] [address] Care Team Providers Care Lead Portfolio Manager Name Role Phone Travis Townsend MD Primary Care Provider [phone] Allergies Active Allergy Reactions Criticality Noted Date Comments Sumatriptan Other 03/19/2020 Tachycardia fainting Medications amLODIPine (Norvasc) 10 mg tablet Take 1 tablet every day by oral route with meals for 90 days. 10/12/19 17 Active ARIPiprazole (Abilify) 20 mg tablet Take 30 mg by mouth in the morning. Active FLUoxetine (PROzac) 20 mg tablet Take 1 tablet 4 times a day by oral route. Active magnesium oxide (Mag-Ox) 400 mg (241.3 mg magnesium) tablet Take 2 tablets twice a day by oral route with meals for 90 days. 10/12/19 17 Active calcium carbonate-vitami n D3 500 mg-5 mcg (200 unit) tablet Take 1 tablet by mouth. Active ibuprofen 800 mg tablet Take 1 tablet by mouth every 6 (six) hours if needed. 04/01/20 18 Active levothyroxine (Synthroid, Levoxyl) 100 mcg tablet Take 50 mcg by mouth in the morning. Active metoprolol succinate XL (Toprol-XL) 100 mg 24 hr tablet Take 100 mg by mouth in the morning. Active omeprazole (PriLOSEC) [address] capsule Take 10 mg by mouth before breakfast and before evening meal. Active butalbital-aceta minophen-caff 50-325-40 mg tablet Take 1 tablet by mouth every 4 (four) hours. 09/17/19 24 Active diclofenac (Cataflam) 50 mg tablet Take 50 mg by mouth in the morning and at bedtime. 10/10/19 24 Active oxyCODONE-acetam inophen (Percocet) 5-325 mg tablet Take 1 tablet by mouth if needed each day. 09/23/19 24 Active rOPINIRole (Requip) 1 mg tablet 1 (one) time each day at the same time. Active amitriptyline (Elavil) 50 mg tablet Take 50 mg by mouth at bedtime. 11/19/19 24 Active lisinopril 40 mg tabletIndication s:Benign hypertensive heart disease without congestive heart failure Take 1 tablet (40 mg) by mouth once daily as directed. 90 tablet 11/07/19 25 Active methocarbamol (Robaxin) 750 mg tablet Take 750 mg by mouth four times daily. 11/20/19 25 Active busPIRone (Buspar) 10 mg tablet Take 1 tablet by mouth Twice daily at 6am and 6pm. 01/09/20 25 Active furosemide (Lasix) 20 mg tabletIndication s:Acute on chronic heart failure with preserved ejection fraction (CMS/HCC) Take 1 tablet (20 mg) by mouth in the morning. 90 tablet 3 01/17/20 25 026 Active dapagliflozin propanediol (Farxiga) 10 mgIndications:Ac [place] on chronic heart failure with preserved ejection fraction (CMS/HCC) Take 1 tablet (10 mg) by mouth once daily as directed. 30 tablet 11 01/17/20 25 026 Active tiZANidine (Zanaflex) 4 mg tablet Take 1 tablet every day by oral route at bedtime. 025 Discontinued Active Problems Problem Noted Date Diagnosed Date Chronic obstructive pulmonary disease 01/16/2025 BMI 35.0-35.9,adult 01/16/2025 Class 3 obesity 01/16/2025 Closed displaced fracture of styloid process of ulna with routine healing 01/16/2025 Closed fracture of distal end of left radius Degeneration of intervertebr al disc of lumbosacral region with discogenic back pain 01/16/2025 Diverticulosis 01/16/2025 Gastroesophageal reflux disease 01/16/2025 Hiatal hernia 01/16/2025 Hearing loss 01/16/2025 Osteoporosis 01/16/2025 Restless leg syndrome 01/16/2025 Screening for malignant neoplasm of colon 2024 Sleep apnea 01/16/2025 Wedge compression fracture o f T11-T12 vertebra, initial encounter for closed fracture 01/16/2025 SVT (supraventricular tachycardia) 01/16/2025 Continuous opioid dependence 03/30/2023 Lumbar radiculopathy 03/30/2023 Anxiety 09/20/2022 Hypercholesterolemia 09/20/2022 Hypothyroidism 09/20/2022 Pulmonary hypertension 04/09/2022 Bipolar disorder 10/11/2016 Hypertensive disorder 10/11/2016 Migraine 10/11/2016 Encounters Date Type Department Care Team Description 01/16/2025 2:45 PM EDT Office Visit [facility] [address] [place] [address] Miriam Saenz MD Acute on chronic heart failure with preserved ejection fraction (CMS/HCC) (Primary Dx); Palpitations; Dyspnea on exertion; Nonrheumatic aortic valve insufficiency 11/05/2024 Refill [facility] [address] [place] [address] Miriam Saenz MD Benign hypertensive heart disease without congestive heart failure from Last 3 Months Immunizations Immunization Administration Dates Next Due Influenza, High-dose Seasona [...] often do you attend chur ch or church services? More than 4 times per year 03/16/2022 Do you belong to any clubs o r organizations such as judaism groups, unions, fraternal or athletic groups, or [...] Recorded Patient Health Questionnaire-2 Score 0 03/16/2022 [facility] of Occupat ional Health - Occupational Stress [...] place to sleep or slept in a halfway (including now)? No 03/16/2022 [facility] [...] Heterosexual or Straight 12/22 10:25 AM EDT Last Filed Vital Signs Vital Sign Reading Time Taken Comments Blood Pressure 152/87 01/16/2025 2:43 PM EDT Pulse 63 01/16/2025 2:43 PM EDT Temperature 36.4 C (97.5 F) 03/16/2022 1:15 PM EDT Respiratory Rate 16 03/16/2022 1:15 PM EDT Oxygen Saturation 95% 01/16/2025 2:43 PM EDT Inhaled Oxygen Concentration - - Weight 85.3 kg (188 lb) 01/16/2025 2:43 PM EDT Height 157.5 cm (5' 2 ) 01/16/2025 2:43 PM EDT Body Mass Index 34.39 01/16/2025 2:43 PM EDT Plan of Treatment Upcoming Encounters Date Type Department Care Team (Late st Contact Info) Description 04/03/2025 3:00 PM EST Office Visit [facility] [address] [place] [address] Miriam Saenz MD [address] [facility] [place] [address] Health Maintenance Due Date Last Done Comments CT Colonography 1955 FIT-DNA 1955 FIT 1955 FOBT 1955 Medicare Annual Wellness (AWV) 1955 Sigmoidoscopy 1955 Depression Screening 1965 Mammogram 1993 Fall Risk Screening 2018 Colonoscopy 03/14/2023 03/14/2013 Colorectal Cancer Screening 03/14/2023 COVID-19 Vaccine ( season) 2024 04/30/2023, 07/09/2022, 02/12/2022, Additional history exists Influenza Vaccine (#1) 2025 , 04/30/2023, 02/12/2022, Additional history exists Adult Tetanus 11/26/2031 11/25/2021, 04/01/2018 Pneumococcal Vaccine: 50+ Years Completed 06/05/2024, 09/18/2021, 02/02/2020, Additional history [...] on patient's age to complete this topic Insurance [employer]AGE Care Teams Lead Portfolio Manager Relationship Specialty Start Date End Date Travis Townsend MD [address] [facility] [place] [address] PCP - General 03/16/22
--- OUTSIDE RECORDS SUMMARY | 2025-01-21 14:20 | XMS_ITS | Clinical Summary ---
Author Organization [facility] Address [address], [address] [place] [address] Care Team Providers Care Dining Room Server Name Role Phone Bull Forrest MD Primary Care Provider [phone] Allergies No known active allergies Medications amLODIPine [...] of Treatment Not on file Insurance [place] [address] [address] MEDICARE Care Teams Dining Room Server Relationship Specialty Start Date End Date Bull Forrest MD [address] [place] [id number] PCP - General Family Medicine 04/01/18
--- OUTSIDE RECORDS SUMMARY | 2025-01-21 14:20 | XMS_ITS | Patient Health Record ---
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 Name Role Phone Natividad Milton Primary Care Provider [facility] Feroz Raymundolisa Unavailable [phone] Richard Askew Unavailable [phone] Willi Torres Unavailable [phone] Shyanne Berg Unavailable Allergies Allergen (clinical drug ingredient) Drug/Non Drug Allergy documented on EMR Reaction Allergy Type Onset Date Status sumatriptan Imitrex Unknown Drug Allergy Activ e Results Component Value Reference Range Notes [facility]- WRIST 3 VIEW LEFT [id number] Reviewed date:06/27/2024 09:42:44 AM Interpretation: Performing Lab: Notes/Report: [facility]- WRIST 3 VIEW LEFT 22492 Reviewed date:08/09/2024 01:53:02 PM Interpretation: Performing Lab: Notes/Report: Reason For Referral Reason APPROVED for Hosp. C onsult 06/07 APPROVED for ORIF done 06/11 Diagnosis 1 Other intraarticular fracture of lower end of left radius, initial encounter for closed fracture (S52.572A) Referral Organization [facility] Referring Provider First Name Willi Referring Provider Last Name Brian Referring Provider Speciality Orthopedic Surgery Referred Organization [facility] Referred Address [address] [place],[address], General Notes Pau Tucker 11:56:12 AM > [...] closed fracture (S52.572A) Referral Organization [facility] Referring Provider First Name Willi Referring Provider Last Name Highland Referring Provider Speciality Orthopedic Surgery Referred Organization [facility] Referred Address [facility] [address], [place],[address], General Notes Kierra Brice 06/20 09:09:27 AM >Need work slip for 06/11/2024 sx please. [facility] called asking for. Thanks so much, Pam Licona 06/20/2024 09:30:15 AM > IN UNDER CHART DOCS, Kierra Brice 06/20/2024 10:16:35 AM >noted. faxed [employer] Referral Priority Urgent Reason addressed,APPROVED f or casting done 06/25 Diagnosis 1 Other intraarticular fracture of lower end of left radius, initial encounter for closed fracture (S52.952F) Referral Organization [facility] Referring Provider First Name Willi Referring Provider Last Name Highland Referring Provider Speciality Orthopedic Surgery [facility] Referred Address [address],[place], [place],[address],[place] General Notes Pau Tucker 09:05:49 AM > [...] Priority Routine Reason APPROVED FOR P.T. AT [place], OFF WORK, [facility] [place] (PATIENT WILL GET IN [place] OFFICE) AD [facility] APPROVED for dme from 07/16 Diagnosis 1 Other intraarticular fracture of lower end of left radius, subsequent encounter for closed fracture with routine healing (S52.572D) Referral Organization [facility] Referring Provider First Name Willi Referring Provider Last Name Brian Referring Provider Speciality Orthopedic Surgery Referred Organization [facility] [place] [facility] Referred Address [address] [place] [address],[address],[place], [place],[address], General Notes Pau Tucker 08:01:11 AM > Can you please add dx for displaced ulnar styloid fx, dictated from [facility], Jenny 07/17/2024 10:34:00 AM >done, Pau Tucker 07/17/2024 11:19:39 AM > faxed note and c9 for PT, Pau Tucker 07/19/2024 10:44:12 AM > rcvd C9 Auth PT LT arm 12 visits 07/17 to 09/07, see attachment. Where at in [place] would she go for PT?, Pam Licona 07/19/2024 11:15:20 AM >[facility] 08/06/2024 02:30:15 PM >, Miranda Galloway 08/13/2024 03:17:21 PM >C9 for dme L3908 given on 07-16-24. Patient went from [place] to [place] office for this. Assuming SI needs c9?, [...] routine healing, subsequent encounter (S52.612D) Referral Organization [facility] Referring Provider First Name Willi Referring Provider Last Name Torres Referring Provider Speciality Orthopedic Surgery [facility] Referred Address [address],[place], [place],[address],[place] General Notes Pau Tucker 02:24:34 PM > [...] PM > found a letter on the [facility] website. dx S52.612 was allowed on 08/22. see attachment Referral Priority Routine Reason AD 09/10 note Diagnosis 1 Closed displaced fra cture of styloid process of left ulna with routine healing, subsequent encounter (S52.612D) Referral Organization [facility] Referring Provider First Name Willi Referring Provider Last Name Torres Referring Provider Speciality Orthopedic Surgery [facility] Referred Address [address],[place], [place],[address], General Notes Pau Tucker 03:42:17 PM > faxed note and updated [facility] Referral Priority Routine Reason APPROVED............ .....................NOT SCHEDULED....................................[facility] MCR MRI THORACIC AND LUMBAR TO BE DONE AT [place] Diagnosis 1 Compression fracture of T10 vertebra with routine healing, subsequent encounter (S22.070D) Diagnosis 2 Lumbar back pain (M5 4.50) Referral Organization [facility] Referring Provider First Name Ferozlisa Referring Provider Last Name St Pepper Referring Provider Speciality Orthopedic Surgery Referred Organization [facility] Referred Address [place], [place], Procedure 1 MRI Thoracic Spine w /o Dye (00743) Procedure 2 MRI Lumbar Spine w/o Dye (27090) General Notes Marva Tonwsend 2024 12:43:02 PM >, Salma Wright 11/02/2024 12:45:30 PM > WAITING ON TODAY'S OFFICE NOTE, Salma Wright 11/06/2024 09:24:12 AM > MIRELAEM ACTIVE AND EFFECTIVE 05/23/24 PER AIM. AUTHORIZATION REQUEST SUBMITTED VIA [facility], PENDING AUTHORIZATION # [id number] WITH ANTICIPATED DETERMINATION DATE OF 11/16/24 PER AIM. CLINICALS FAXED TO [facility] @ [phone], Salma Wright 11/07/2024 07:57:33 AM > CASE PENDING PER AIM.Kyle Kayla 11/09/2024 08:57:51 AM > STILL PENDING PER AIM.Kyle Kayla 11/12/2024 08:19:14 AM > STILL PENDING WITH AIM.Kyle Kayla 11/13/2024 07:13:43 AM > PENDING, Salma Wright 11/14/2024 09:42:34 AM > PENDING WITH AIM STILL.Kyle Kayla 11/16/2024 07:49:35 AM > AUTHORIZATION # [id number] APPROVED AND VALID 11/06/24-02/03/25 PER AIM. SCANNED INTO CHART AND FAXED TO Kristian Dawn 11/16/2024 08:15:51 AM >faxed Referral Priority Routine Diagnosis 1 Closed displaced fra cture of styloid process of left ulna with routine healing, subsequent encounter (S52.612D) Referral Organization [facility] Referring Provider First Name Rhett Referring Provider Last Name St Pepper Referring Provider Speciality Orthopedic Surgery Referred Organization [facility] Referred Address [address], [place],[address], Referral Priority Routine Medications Medication SIG (Take, [...] Problem Status W/U Status Risk Notes Problem [id number] Wedge compressio n fracture of T11-T12 vertebra, initial encounter for closed fracture (S22.080A) Active confirmed Problem Closed fracture of distal end of left radius (504209034944 56442) Other intraarticular fracture of lower end of left radius, subsequent encounter for closed fracture with routine healing (S52.572D) Active confirmed Problem 80869644 Closed displaced fracture of styloid process of left ulna with routine healing, subsequent encounter (S52.612D) Active confirmed Problem 81198687 Degeneration of intervertebral disc of lumbosacral region with discogenic back pain (M51.370) Active confirmed Problem 70302131 Other intraarticular fracture of lower end of left radius, initial encounter for closed fracture (S52.572A) Inactive confirmed Vital Signs Height 5 ft 2 in in 12/03/2024 Weight 200 lbs 12/03/2024 BMI 36.58 12/03/2024 Encounters Encounter Location Date Provider Diagnosis [facility] [address] [place] [address] 06/07/2024 Shyanne [place] Other intraarticular fracture of lower end of left radius, initial encounter for closed fracture S52.572A and Fall, initial encounter W19.XXXA [facility] [address] [facility] [place] [address] 06/11/2024 Willi Torres Other intraarticular fracture of lower end of left radius, initial encounter for closed fracture S52.572A [facility] [address] [place] [address] 06/25/2024 Shyanne Berg Other intraarticular fracture of lower end of left radius, subsequent encounter for closed fracture with routine healing S52.572D and Closed displaced fracture of styloid process of left ulna with routine healing, subsequent encounter S52.612D [facility] [address] [place] [address] 07/16/2024 Shyanne Berg Other intraarticular fracture of lower end of left radius, subsequent encounter for closed fracture with routine healing S52.572D and Closed displaced fracture of styloid process of left ulna with routine healing, subsequent encounter S52.612D [facility] [address] [place] [address] 08/13/2024 Willi Torres Closed displaced fracture of styloid process of left ulna with routine healing, subsequent encounter S52.612D and Other intraarticular fracture of lower end of left radius, subsequent encounter for closed fracture with routine healing S52.572D [facility] [address] [place] [address] 09/10/2024 Willi Torres Closed displaced fracture of styloid process of left ulna with routine healing, subsequent encounter S52.612D and Other intraarticular fracture of lower end of left radius, subsequent encounter for closed fracture with routine healing S52.572D [facility] [address] [facility] [place] [address] 11/02/2024 Richard Diglio Wedge compression fracture of T11-T12 vertebra, initial encounter for closed fracture S22.080A and Degeneration of intervertebral disc of lumbosacral region with discogenic back pain M51.370 [facility] [address] [place] [address] 12/03/2024 Selvon David Compression fracture of T10 vertebra with routine healing, subsequent encounter S22.070D [facility] [address] [place] [address] 07/16/2024 Willi Torres Assessments Encounter Date Diagnosis [...] (ICD-10 - S52.612D) 06/25/2024 Other Patient is doilisa oconnor well 2 weeks s/p left distal radius ORIF. Given she does have a ulnar styloid fracture I placed her in a short arm cast. She does work at [employer] and has to do a lot of [...] work with some restrictions. She works at [employer] and reports she does not have to [...] disc disease 3. Low back pain 12/03/2024 Other Mary Vick presents with worsening [...] 4-6 weeks - Return to work at [employer] with no restrictions starting next Tuesday - Follow-up as needed if symptoms worsen - No scheduled follow-up appointment necessary Thanks once again. If we can be of further service to your patients with disorders of the spine, cervical, thoracic, or lumbar, please do not hesitate to contact me. Best regards, Plan Of Treatment Pending Test Test Name Order Date DME - Lumbar Support, Surgical OTS 12/03 Thoracic-Lumbar spine 2v ap and lat - 72 080 11/02/2024 [facility]- WRIST 3 VIEW LEFT [address]56[address] 08/13/2024 [facility]- PT/OT EVAL AND TREAT 3X/WEEK FOR 6 WEEKS 07/16/2024 [facility]- WRIST 3 VIEW LEFT [address] 09/10/2024 MRI : Lumbosacral Spine W/O Contrast - 7 8 11/02/2024 MRI : Thoracic Spine W/O Contrast - 7214 6 11/02/2024 Insurance Providers Payer Name Payer Address Payer Phone Subscriber Number Group Number Insured Name Patient Relationship to Insured Coverage Start Date Coverage End Date Medicare [employer] [address] [place] [address] [id number] 2 [facility] MARY VICK Self - patient is the insured 5 [employer] [address] [place] TO [facility] [place] [address] [phone] doi 24 lt wrist & ribs MARY VICK Self - patient is the insured 5 Medical (General) History Medical History History ICD Code Respiratory problems: Lung Disease Hypothyroidism High Blood Pressure Depression Mental Illness: Anxiety Surgical History Surgery Date(Month/Year) ORIF of a left distal radius fracture
--- OUTSIDE RECORDS SUMMARY | 2025-01-21 14:21 | XMS_ITS | Encounter Summary ---
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 Name Role Phone Unavailable Primary Care Provider Unavailabl e Encounter Details Date Type Department Care Team (Late st Contact Info) Description 01/11/2025 Abstract [facility] [address] [place] [address] Rosalba Ac DO [address] [place] [address] Social History Tobacco Use Types Packs/Day Years Used Date Smoking Tobacco: Never Smokeless Tobacco: Never Alcohol Use Standard Drinks/Week Comments Never 0 (1 standard drink = 0.6 oz pur e alcohol) Comments Unknown Sex and Gender Information Value Date Recorded Sex Assigned at Not on file Legal Sex Female 8:27 PM EDT Gender Identity Not on file Sexual Orientation Not on file documented as of this encounter Plan of Treatment Upcoming Encounters Date Type Department Care Team (Late st Contact Info) Description 01/24/2025 10:15 AM EDT Consult [facility] [address] [place] [address] Rosalba Ac DO [address] [place] [address] documented as of this encounter Visit Diagnoses Not on filedocumented in this encounter
--- NOTE | 2025-01-21 14:24 | XR_ITS ---
The [address] [address] Patient Name: MELANIE TOMPKINS MRN: [id number] date: 1955 Sex: F Assigned Patient Location: ER Current Patient Location: ER Accession/Order Number: [id number] Exam Date: 01/21/2025 14:30 Report Date: 01/21/2025 14:48 At the request of: JESSY PERALTA Procedure: XR chest 1V Single view chest: CLINICAL HISTORY: SOB COMPARISON: None FINDINGS: Thyromegaly vascular congestion. Large hiatal hernia. No consolidation pneumothorax pleural effusion or free air. XR/XR chest 1V IMPRESSION: CHF Impression dictated by: Giuseppe Caal Jr.[facility] 01/21/2025 2:48 PM Dictation Location: [place] [address] Electronically authenticated by: [id number] Y Date: 01/21/2025 14:48
--- NOTE | 2025-01-21 14:24 | ECG_ITS ---
The [facility] Test Date: 2025-01-21 Pat Name: MELANIE TOMPKINS Department: Room: - Gender: Female Parts Representative: : 1955 Requested By: [id number] Order Number: [id number] Reading MD: MARVIN PELAEZ Measurements Intervals [place] Rate: 77 P: 42 UT: 156 QRS: 39 QRSD: 86 T: 52 QT: 410 QTc: 441 Interpretive Statements 1100 Sinus rhythm [address] depression 6220 Possible left atrial enlargement 9130 borderline ECG Compared to ECG 10/25/2024 09:41:28 ST (T wave) deviation now present Electronically Signed On 01-23-2025 13:46:07 EDT by MARVIN PELAEZ
--- NOTE | 2025-01-21 14:25 | ED.SOB1 ---
HPI - SOB/Dyspnea General Chief Complaint: Shortness of Breath/Dyspnea Stated Complaint: SOB Time Seen by Provider: 01/21/25 14:19 Source: patient Mode of arrival: Wheelchair History of Present Illness HPI Narrative: 69 year old female presents to the ED for SOB. Onset was 2 months ago. It has become worse the past few days. Reports a yellow productive cough. Denies fever, chills, edema, N/V/D. Denies dizziness, chest pain. She was started on Lasix 20 mg PO and Farxiga PO last week. Related Data Home Medications ?Medication ?Instructions ?Recorded ?Confirmed aripiprazole 30 mg tablet (Abilify) 30 mg PO QDAY 10/21/22 10/25/24 diclofenac sodium 50 mg 50 mg PO BID 10/21/22 10/25/24 tablet,delayed release ropinirole 1 mg tablet 1 mg PO QDAY PRN restless leg(s) 10/21/22 10/25/24 fluticasone fur. 100 mcg-umeclid 1 inh inhalation DAILY 04/12/24 10/25/24 62.5 mcg-vilant 25 mcg inhalat.powder (Trelegy Ellipta) omeprazole 20 mg capsule,delayed 20 mg PO BID 06/06/24 10/25/24 release buspirone 10 mg tablet 10 mg PO BID 01/16/25 01/16/25 fluoxetine 20 mg capsule (Prozac) 20 mg PO QID 01/16/25 01/16/25 lisinopril 40 mg tablet (Zestril) 40 mg PO DAILY 01/16/25 01/16/25 methocarbamol 750 mg tablet mg 01/16/25 Previous Rx's ?Medication ?Instructions ?Recorded levothyroxine 50 mcg tablet 50 mcg PO QDAY #30 tabs 09/17/23 (Euthyrox) potassium chloride 20 mEq 20 meq PO DAILY #7 tabs 01/21/25 tablet,extended release Allergies Allergy/AdvReac Type Severity Reaction Status Date / Time sumatriptan (From Imitrex) Allergy Severe Palpitation Verified 10/25/24 09:34 s Review of Systems ROS Constitutional Denies: fever, chills or fatigue Ears, nose, mouth, and throat Denies: throat pain or neck pain Cardiovascular Denies: chest pain, palpitations, edema, swelling of feet/ankles or lightheadedness Respiratory Reports: shortness of breath and cough Gastrointestinal Denies: abdominal pain, nausea, vomiting or diarrhea Musculoskeletal Denies: back pain Neurological Denies: headache or dizziness [facility] Medical History Syncopal episodes ?R55 - Syncope and collapse (ICD-10) Pneumonia ?J18.9 - Pneumonia, unspecified organism (ICD-10) Restless leg ?G25.81 - Restless legs syndrome (ICD-10) Dyspnea on exertion ?R06.09 - Other forms of dyspnea (ICD-10) Bilateral pulmonary contusion ?S27.322A - Contusion of lung, bilateral, initial encounter (ICD-10) Closed rib fracture ?S22.39XA - Fracture of one rib, unspecified side, initial encounter for closed fracture (ICD-10) Fall ?W19.XXXA - Unspecified fall, initial encounter (ICD-10) Chin contusion ?S00.83XA - Contusion of other part of head, initial encounter (ICD-10) Laceration of lip ?S01.511A - Laceration without foreign body of lip, initial encounter (ICD-10) Fracture of wrist ?S62.109A - Fracture of unspecified carpal bone, unspecified wrist, initial encounter for closed fracture (ICD-10) Macular degeneration ?H35.30 - Unspecified macular degeneration (ICD-10) Seasonal allergies ?J30.2 - Other seasonal allergic rhinitis (ICD-10) Anemia ?D64.9 - Anemia, unspecified (ICD-10) Lumbar radiculopathy ?M54.16 - Radiculopathy, lumbar region (ICD-10) Muscle spasm ?M62.838 - Other muscle spasm (ICD-10) Lumbar spondylosis ?M47.816 - Spondylosis without myelopathy or radiculopathy, lumbar region (ICD-10) Thoracic spondylosis ?M47.814 - Spondylosis without myelopathy or radiculopathy, thoracic region (ICD-10) Bilateral sacroiliitis ?M46.1 - Sacroiliitis, not elsewhere classified (ICD-10) Chronic, continuous use of opioids ?F11.90 - Opioid use, unspecified, uncomplicated (ICD-10) Greater trochanteric bursitis of both hips ?M70.61 - Trochanteric bursitis, right hip (ICD-10) ?M70.62 - Trochanteric bursitis, left hip (ICD-10) Encounter for long-term opiate analgesic use ?Z79.891 - shelter (current) use of opiate analgesic (ICD-10) Bilateral primary osteoarthritis of knee ?M17.0 - Bilateral primary osteoarthritis of knee (ICD-10) Acute opioid intoxication ?F11.929 - Opioid use, unspecified with intoxication, unspecified (ICD-10) Tubal ligation evaluation ?Z01.818 - Encounter for other preprocedural examination (ICD-10) Colonoscopy planned Headache, migraine ?G43.909 - Migraine, unspecified, not intractable, without status migrainosus (ICD-10) SVT (supraventricular tachycardia) ?I47.10 - Supraventricular tachycardia, unspecified (ICD-10) Screening for colorectal cancer ?Z12.11 - Encounter for screening for malignant neoplasm of colon (ICD-10) ?Z12.12 - Encounter for screening for malignant neoplasm of rectum (ICD-10) COPD (chronic obstructive pulmonary disease) ?J44.9 - Chronic obstructive pulmonary disease, unspecified (ICD-10) Migraine ?G43.909 - Migraine, unspecified, not intractable, without status migrainosus (ICD-10) Loud snoring ?R06.83 - Snoring (ICD-10) Osteoarthritis ?M19.90 - Unspecified osteoarthritis, unspecified site (ICD-10) Neck pain ?M54.2 - Cervicalgia (ICD-10) Bipolar 1 disorder ?F31.9 - Bipolar disorder, unspecified (ICD-10) Hearing deficit ?H91.90 - Unspecified hearing loss, unspecified ear (ICD-10) Anxiety ?F41.9 - Anxiety disorder, unspecified (ICD-10) Acid reflux ?K21.9 - Gastro-esophageal reflux disease without esophagitis (ICD-10) Obesity ?E66.9 - Obesity, unspecified (ICD-10) Hypothyroid ?E03.9 - Hypothyroidism, unspecified (ICD-10) Pulmonary hypertension ?I27.20 - Pulmonary hypertension, unspecified (ICD-10) Sleep apnea ?G47.30 - Sleep apnea, unspecified (ICD-10) High cholesterol ?E78.00 - Pure hypercholesterolemia, unspecified (ICD-10) Hypertension ?I10 - Essential (primary) hypertension (ICD-10) Surgical History History of colonoscopy ?Z98.890 - Other specified postprocedural states (ICD-10) H/O bilateral salpingo-oophorectomy ?Z90.79 - Acquired absence of other genital organ(s) (ICD-10) ?Z90.722 - Acquired absence of ovaries, bilateral (ICD-10) H/O dilation and curettage ?Z98.890 - Other specified postprocedural states (ICD-10) Cataract extraction status ?Z98.49 - Cataract extraction status, unspecified eye (ICD-10) H/O blepharoplasty ?Z98.890 - Other specified postprocedural states (ICD-10) History of mandibular surgery ?Z98.890 - Other specified postprocedural states (ICD-10) Hx of tubal ligation ?Z98.51 - Tubal ligation status (ICD-10) History of appendectomy ?Z90.49 - Acquired absence of other specified parts of digestive tract (ICD-10) History of hysterectomy ?Z90.710 - Acquired absence of both cervix and uterus (ICD-10) Family History Mother Family history of cancer Sister Family history of cancer Other Delayed recovery from anesthesia Family history of breast cancer Family history of lung cancer Social History Within the past year, how often did you have a drink containing alcohol: never Score interpretation: A score less than 3 is consistent with normal alcohol consumption. Smoking status: Former smoker Non-prescribed substance use: denies use Previous occupational history: [employer] Highest level of school completed/degree received: 11th grade Are you now , , , , never or living with a partner: In a typical week, how many times do you talk on the telephone with family, friends, or neighbors: 3 or more times per week How often do you get together with friends or relatives: 3 or more times per week How often do you attend yazidi or christianity services: 4 or more times per year Do you belong to any clubs or organizations such as yazidi groups unions, fraternal or athletic groups, or school groups: no Total score: 2 Score interpretation: A score of greater than or equal to 2 indicates the lowest level of social isolation. Little interest or pleasure in doing things: not at all Feeling down, depressed, or hopeless: not at all Feel stressed/tense/nervous/anxious/difficulty sleeping: not at all Do you think of yourself as: straight/heterosexual Gender Identity: female Exam Constitutional Vital Signs, click to edit/add: Last Vital Signs Temp 97.9 F 01/21/25 14:10 Pulse 65 01/21/25 18:20 Resp 16 01/21/25 18:20 BP 176/79 H 01/21/25 18:39 Pulse Ox 96 01/21/25 18:20 O2 Del Method Room Air 01/21/25 14:10 Common normals: no apparent distress and oriented x3 General appearance: cooperative HENMT Common normals: moist oral mucous membranes Eye Common normals: conjunctivae normal and no scleral icterus Neck & C-Spine Common normals: supple and no JVD Chest Chest: symmetrical chest wall rise Respiratory Common normals: normal respiratory effort, no use of accessory muscles and clear to auscultation bilaterally Effort & inspection: able to speak in complete sentences and symmetric chest movement Cardio Common normals: regular rate and regular rhythm Extremity Common normals: normal capillary refill and no pedal edema Neuro Common normals: oriented x3, moves all extremities and no focal motor deficits Course Vital Signs Vital signs: Vital Signs Temperature 97.9 F 01/21/25 14:10 Pulse Rate 90 01/21/25 14:10 Respiratory Rate 22 H 01/21/25 14:10 Blood Pressure 146/100 H 01/21/25 14:10 Pulse Oximetry 96 01/21/25 14:10 Oxygen Delivery Method Room Air 01/21/25 14:10 Temperature 97.9 F 01/21/25 14:10 Pulse Rate 65 01/21/25 18:20 Respiratory Rate 16 01/21/25 18:20 Blood Pressure 176/79 H 01/21/25 18:39 Pulse Oximetry 96 01/21/25 18:20 Oxygen Delivery Method Room Air 01/21/25 14:10 MDM - SOB/Dyspnea MDM Narrative Medical decision making narrative: Potassium was 2.5 which was treated with IV potassium. Repeat potassium was 3.3. BNP was 112. CT chest was negative for PE. It showed a large hiatal hernia, diffuse interstitial changes, worsening compression deformity of T10. See below for additional findings. Findings were discussed; she was given a copy of her CT report. The patient has an upcoming appointment with pulmonology. She has a pharmacovigilance specialist that she has followed with for the T10 fracture. She was started on Lasix last week. Follow up with pcp, cardiology, pulmonology, and the pharmacovigilance specialist. Return precautions were discussed. A prescription was provided for potassium. Her dyspnea was improved prior to discharge. Differential Diagnosis Differential diagnosis: Likely congestive heart failure, community acquired pneumonia and pulmonary embolism Medical Records Attestation: I reviewed the patient's medical records. Lab Data Attestation: I reviewed the patient's lab results. Labs: Lab Results 01/21/25 01/21/25 01/21/25 Range/Units 14:40 14:48 17:20 WBC 9.8 (4.0-11.0) 10^3/uL RBC 4.89 (4.20-5.40) 10^6/uL Hgb 14.3 (12.0-16.0) g/dL Hct 44.5 (36.0-48.0) % MCV 91.0 (81.0-99.0) fL MCH 29.2 (26.7-34.0) pg MCHC 32.1 (29.9-35.2) g/dL RDW 15.5 H (11.0-15.0) % Plt Count 312 (150-450) 10^3/uL MPV 11.0 (9.5-13.5) fL Neut % (Auto) 74.3 (43.0-75.0) % Lymph % (Auto) 16.9 L (20.5-60.0) % [place] % (Auto) 6.5 (1.7-12.0) % Eos % (Auto) 1.1 (0.9-7.0) % Baso % (Auto) 0.7 (0.2-2.0) % Neut # (Auto) 7.3 H (1.4-6.5) 10^3/uL Lymph # (Auto) 1.7 (1.2-3.8) 10^3/uL [place] # (Auto) 0.6 (0.3-0.8) 10^3/uL Eos # (Auto) 0.1 (0.0-0.7) 10^3/uL Baso # (Auto) 0.1 (0.0-0.1) 10^3/uL Abs Immat Gran (auto) 0.05 H (0.00-0.03) 10^3/uL Imm/Tot Granulo (auto) 0.5 (0.0-0.5) % Sodium 142 (136-145) mmol/L Potassium 2.5 L* 3.3 L (3.5-5.1) mmol/L Chloride 103 (98-107) mmol/L Carbon Dioxide 28.6 (21.0-32.0) mmol/L Anion Gap 12.9 BUN 8.0 (7.0-18.0) mg/dL Creatinine 0.94 (0.55-1.02) mg/dL Est GFR ( Amer) >60 (>=60 mL/min/1.73m^2) Est GFR (Non-Af Amer) 59 L (>=60 mL/min/1.73m^2) BUN/Creatinine Ratio 8.5 Glucose 138 H (74-106) mg/dL Calcium 9.1 (8.5-10.1) mg/dL Total Bilirubin 0.5 (0.2-1.0) mg/dL AST 19 (15-37) U/L ALT 23 (14-59) U/L Alkaline Phosphatase 98 (46-116) U/L Troponin I High Sens 9.9 (4.0-51.3) pg/mL NT-Pro-B Natriuret Pep 112.0 (<=900.0) pg/mL Total Protein 7.5 (6.4-8.2) g/dL Albumin 3.5 (3.4-5.0) g/dL Globulin 4.0 g/dL Albumin/Globulin Ratio 0.9 SARS-CoV-2 Ag (CV2AG) Negative (NEGATIVE) Imaging Data Chest x-ray: Attestation: I have reviewed the pertinent imaging results. Radiologist's impression: ITS Impressions Chest X-Ray 01/21/25 14:24 IMPRESSION: CHF Impression dictated by: Travis Borrero Jr., D.O. 01/21/2025 2:48 PM Dictation Location: [facility] Electronically authenticated by: [id number] Y Date: 01/21/2025 14:48 ADDENDUM: 01/21/25 1646 IMPRESSION: CHF Impression dictated by: Travis Borrero Jr., D.O. 01/21/2025 2:48 PM Dictation Location: [facility] Electronically authenticated by: [id number] Y Date: 01/21/2025 14:48 Chest CTA 01/21/25 15:46 IMPRESSION: NO EVIDENCE OF ACUTE PULMONARY EMBOLISM. LARGE HIATAL HERNIA. DIFFUSE INTERSTITIAL CHANGES/SEPTAL THICKENING SIMILAR TO THE 10/25/2024 STUDY. WORSENING COMPRESSION DEFORMITY T10 VERTEBRAL BODY WITH 4 MM RETROPULSION INTO THE SPINAL CANAL. Impression dictated by: Travis Borrero Jr., D.O. 01/21/2025 4:43 PM Dictation Location: [facility] Electronically authenticated by: [id number] Y Date: 01/21/2025 16:43 CHEST X-RAY: This is an addendum Findings should read: Cardiomegaly with vascular congestion. Impression dictated by: Travis Borrero Jr., D.O. 01/21/2025 4:44 PM ECG Data Attestation: ?I have reviewed the pertinent ECG results. (EKG was reviewed by the attending physician. It showed sinus rhythm at a rate of 77. No STEMI.) Interpretation: Measurements Intervals [place] Rate: 77 P: 42 [place]: 156 QRS: 39 QRSD: 86 T: 52 QT: 410 QTc: 441 Interpretive Statements 1100 Sinus rhythm [address] depression 6220 Possible left atrial enlargement 9130 borderline ECG No previous ECG available for comparison Discharge Plan Discharge Chief Complaint: Shortness of Breath/Dyspnea Clinical Impression: SOB (shortness of breath), Compression fracture of T10 vertebra, Hypokalemia, Hernia, hiatal Patient Disposition: Home, Self-Care Condition: Good Mode of Transportation: Private Vehicle Prescriptions / Home Meds: New potassium chloride 20 mEq tablet extended release 20 meq PO DAILY Qty: 7 0RF No Action methocarbamol 750 mg tablet buspirone 10 mg tablet 10 mg PO BID lisinopril [Zestril] 40 mg tablet 40 mg PO DAILY fluoxetine [Prozac] 20 mg capsule 20 mg PO QID aripiprazole [Abilify] 30 mg tablet 30 mg PO QDAY ropinirole 1 mg tablet 1 mg PO QDAY PRN (Reason: restless leg(s)) diclofenac sodium 50 mg tablet,delayed release (DR/EC) 50 mg PO BID levothyroxine [Euthyrox] 50 mcg tablet 50 mcg PO QDAY Qty: 30 11RF Trelegy Ellipta 100-62.5-25 mcg blister with device 1 inh inhalation DAILY omeprazole 20 mg capsule,delayed release(DR/EC) 20 mg PO BID Print Language: Khmer Instructions: Heart Failure (ED), Hiatal Hernia (ED), Vertebral Compression Fracture (ED), Hypokalemia (ED), Shortness of Breath (ED) Additional Instructions: Follow up with the drupal php developer as scheduled. Follow up with your pharmacovigilance specialist for a recheck, further evaluation and treatment. Return to the ED for worsening symptoms. Referrals: POLO SILVA [Primary Care Provider, Family Practice] - 1 week Jose Geronimo MD [Physician, Orthopedics] - 1 week Discharge Date/Time: 01/21/25 19:55
[2025-01-21 15:18] LABS: Hematocrit 44.5 % (36.0-48.0); Hemoglobin 14.3 g/dL (12.0-16.0); Immature Granulocytes Abs Auto 0.05 10^3/uL (0.00-0.03); Immature Granulocytes Pct Auto 0.5 % (0.0-0.5); Lymphocytes Absolute Auto 1.7 10^3/uL (1.2-3.8); Mean Corpuscular HGB Conc 32.1 g/dL (29.9-35.2); Mean Corpuscular Hemoglobin 29.2 pg (26.7-34.0); Mean Corpuscular Volume 91.0 fL (81.0-99.0); Platelet Count 312 10^3/uL (150-450); Red Blood Count 4.89 10^6/uL (4.20-5.40); White Blood Count 9.8 10^3/uL (4.0-11.0)
[2025-01-21 15:31] LABS: SARS-CoV-2 Ag NEGATIVE (NEGATIVE)
[2025-01-21 15:41] LABS: Alanine Aminotransferase 23 U/L (14-59); Albumin Globulin Ratio 0.9; Albumin Level 3.5 g/dL (3.4-5.0); Alkaline Phosphatase 98 U/L (46-116); Anion Gap 12.9; Aspartate Amino Transferase 19 U/L (15-37); Blood Urea Nitrogen 8.0 mg/dL (7.0-18.0); Calcium 9.1 mg/dL (8.5-10.1); Carbon Dioxide 28.6 mmol/L (21.0-32.0); Chloride 103 mmol/L (98-107); Estimated GFR (African America >60 (>=60 mL/min/1.73m^2); Estimated GFR (Non-African Ame 59 (>=60 mL/min/1.73m^2); Globulin 4.0 g/dL; Glucose 138 mg/dL (74-106); NT Pro B Type Natriuretic Pept 112.0 pg/mL (<=900.0); Sodium 142 mmol/L (136-145); Total Protein 7.5 g/dL (6.4-8.2)
[2025-01-21 15:43] LABS: Potassium 2.5 mmol/L (3.5-5.1)
--- NOTE | 2025-01-21 15:46 | CT_ITS ---
[address] [address] Patient Name: MELANIE TOMPKINS MRN: [id number] date: 1955 Sex: F Assigned Patient Location: ER Current Patient Location: Accession/Order Number: [id number] Exam Date: 01/21/2025 16:22 Report Date: 01/21/2025 16:43 At the request of: JESSY PERALTA Procedure: CT angio chest CT ANGIOGRAM OF THE CHEST, PULMONARY EMBOLISM PROTOCOL: CLINICAL INFORMATION: Shortness of breath with difficulty breathing for 2 months. COMPARISON: CT chest 10/25/2024 TECHNIQUE: Following intravenous injection of contrast CT scans of the chest were obtained using pulmonary embolism protocol. Coronal and sagittal reconstructed images, as well as volume rendered CT pulmonary angiographic images were also submitted.The CT exam was performed using one or more of the following dose reduction techniques: Automated exposure control, adjustment of the MA and/or Kv according to patient size, or use of the iterative reconstruction technique. FINDINGS: Pulmonary Vasculature: Contrast bolus is adequate for evaluation of pulmonary embolism. Pulmonary trunk appears nondilated. No filling defects are identified to suggest pulmonary embolism. Mediastinum : Thoracic aorta is normal in caliber. No pericardial effusion. No lymphadenopathy. The esophagus is grossly unremarkable. Large hiatal hernia. Lungs: Diffuse interstitial change/septal thickening without evidence of honeycombing. No consolidation pneumothorax. No significant pleural effusion. Upper abdomen: No acute process. Splenic granulomas. Soft tissue/bones: Soft tissues surrounding the chest wall demonstrate no acute findings. Osseous structures demonstrate degenerative change. Worsening compression deformity involving the T10 vertebral body. There is approximately 4 mm retropulsion into the spinal canal. CT/CT angio chest IMPRESSION: NO EVIDENCE OF ACUTE PULMONARY EMBOLISM. LARGE HIATAL HERNIA. DIFFUSE INTERSTITIAL CHANGES/SEPTAL THICKENING SIMILAR TO THE 10/25/2024 STUDY. WORSENING COMPRESSION DEFORMITY T10 VERTEBRAL BODY WITH 4 MM RETROPULSION INTO THE SPINAL CANAL. Impression dictated by: Travis Borrero Jr., D.O. 01/21/2025 4:43 PM Dictation Location: [facility] Electronically authenticated by: [id number] Y Date: 01/21/2025 16:43
[2025-01-21] MEDS: POTASSIUM CHLORIDE IN WATER 10 MEQ/100 ML PREMIX 100 MEQ IV ×2 (16:38→17:46)
[2025-01-21] MEDS: 0.9 % SODIUM CHLORIDE 500 ML 125 ML IV (16:56)
[2025-01-21] MEDS: CLONIDINE HCL 0.1 MG TABLET PO (18:39)
[2025-01-21 19:32] LABS: Potassium 3.3 mmol/L (3.5-5.1)
== END 2025-01-21 19:55 | disposition home or self-care (01) ==
PROVIDERS: Nurse Practitioner Family; Emergency Provider Emergency Medicine; PCP Nurse Practitioner Family
DX: R06.02 Shortness of breath (principal); E87.6 Hypokalemia; M48.54XA Collapsed vertebra, not elsewhere classified, thoracic region, initial encounter for fracture; K44.9 Diaphragmatic hernia without obstruction or gangrene; Z90.722 Acquired absence of ovaries, bilateral; Z98.51 Tubal ligation status; Z90.49 Acquired absence of other specified parts of digestive tract; Z90.710 Acquired absence of both cervix and uterus; Z87.891 Personal history of nicotine dependence
CPT/HCPCS: 36415; 71045; 71275; 80053; 83880; 84132; 84484; 85025; 87811; 93005; 96365; 96366; 99285; J3480; Q9967

== ENCOUNTER 2025-01-28 09:52 | Outpatient (RCR) | payer MEDICARE, SELFPAY ==
[2025-01-28 09:55] VITALS: BP 151/87; PULSE 101; TEMP 36.3; O2SAT 94
[2025-01-28] MEDS: ZOLEDRONIC ACID/MANNITOL-WATER 5 MG/100 ML BOTTLE 400 MG IV (10:09)
== END 2025-02-19 23:59 | disposition home or self-care (01) ==
LOC: INF 09:52
PROVIDERS: PCP Nurse Practitioner Family; Visit Provider Nurse Practitioner Family
DX: M81.0 Age-related osteoporosis without current pathological fracture (principal)
CPT/HCPCS: 96365; J3489

== ENCOUNTER 2025-01-31 11:40 | Outpatient (OUT) | payer MEDICARE, SELFPAY ==
--- OUTSIDE RECORDS SUMMARY | 2025-01-31 12:13 | XMS_ITS | CCD ---
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 on above: Performed By: #### H STROPN, CMP ####[facility] [address] [place], [place] [address]Dr. Deborah Mohan Protein [Mass/Vol] 6.9 g/dL Normal 6.4-8.2 [facility] Comment on above: Performed By: #### H STROPN, CMP ####[facility] [address] [id number]. Deborah Mohan Sodium [Moles/Vol] 136 mmol/L Normal 136-145 [facility] Comment on above: Performed By: #### H STROPN, CMP ####[facility] [address] [id number]. Deborah Mohan Urea nitrogen [Mass/Vol] 28.0 mg/dL Critically high 7.0-18.0 [facility] Comment on above: Performed By: #### H STROPN, CMP ####[facility] [address] [id number]. Deborah Mohan Urea nitrogen/Creatinine [Mass ratio] 23.1 mg/mg Normal [facility] Comment on above: Performed By: #### H STROPN, CMP ####[facility] [address] [address]Dr. Deborah Mohan TROPONIN, HIGH SENSITIVITYon 04-07-2022 HSTROP 5.9 pg/mL Normal 4.0-51.3 [facility] Comment on above: Result Comment: CUT- OFF POINTS HAVE BEEN ESTABLISHED BASED ON THE FOURTH UNIVERSAL DEFINITIONS OF MYOCARDIAL INFARCTION. THE UPPER REFERENCE LIMIT (URL) OF TROPONIN, DEFINED THE 99TH PERCENTILE OF cTnI DISTRIBUTION IN A REFERENCE POPULATION, HAS BEEN CONFIRMED THE DECISION THRESHOLD FOR CA DIAGNOSIS. Performed By: #### H STROPN, CMP ####[facility] [address] [id number]. Deborah Mohan XR CHEST 1 Von 04-07-2022 [...] Date: 2022-04-07 03:11 Normal [facility] HEMOGLOBINon 03-12-2022 Hemoglobin (Bld) [Mass/Vol] 9.2 g/dL Critically low 12.0-16.0 [facility] Comment on above: Performed By: #### A NARF #### [facility] [address] [address] [address] Deborah Mohan ANTI NEUTROPHIL CYTOPLASMIC AB (ANCA) PRon 03-09-2022 Anti-MPO Antibodies <0.2 Normal 0.0-0.9 [facility] [place] [facility] Comment on above: Result Comment: Perf ormed at: BN Performed By: #### B MUSIC THERAPY TEACHER, HSTROPN, CMP #### [facility] [address] [place] [address] Dr. Deborah Mohan Anti-PR3 Antibodies <0.2 Normal 0.0-0.9 [facility] [place] [facility] Comment on above: Result Comment: Perf ormed at: BN Performed By: #### B MUSIC THERAPY TEACHER, HSTROPN, CMP #### [facility] [address] [place] [address] Dr. Deborah Mohan Atypical pANCA 1:160 Critically high Neg:<1:20 [facility] [place] [facility] Comment on above: Result Comment: The atypical pANCA pattern has been observed in a significant percentage of patients with ulcerative colitis, primary sclerosing cholangitis and autoimmune hepatitis. Performed at: CB Performed By: #### B MUSIC THERAPY TEACHER, HSTROPN, CMP #### [facility] [address] [address] [address] Deborah Mohan Cytoplasmic (C-ANCA) <1:20 Normal Neg:<1:20 [facility] Comment on above: Result Comment: Perf ormed at: CB Performed By: #### B MUSIC THERAPY TEACHER, HSTROPN, CMP #### [facility] [address] [place] [address] Dr. Deborah Mohan Perinuclear (P-ANCA) <1:20 Normal Neg:<1:20 [facility] Comment on above: Result Comment: The [...] Performed at: CB Performed By: #### B MUSIC THERAPY TEACHER, HSTROPN, CMP #### [facility] [address] [place], [place] [address] Dr. Deborah Mohan ANTISCLERODERMA ABon 022 Antiscleroderma-70 Antibodies <0.2 Normal 0.0-0.9 [facility] Comment on above: Performed By: #### A NARF #### [facility] [address] [place], [place] [address] CHEST WO CONon [...] as described above. Normal [facility] CYCLIC CITRULLINATED PEPTIDE AB (CCP)on 03-09-2022 CCP Antibodies IgG/IgA 6 units Normal 0-19 [facility] Comment on above: Result Comment: Nega tive <20 Weak positive 20 - 39 Moderate positive 40 - 59 Strong positive >59 Performed By: #### B MUSIC THERAPY TEACHER, HSTROPN, CMP #### [facility] [address] [place], [place] [address] Dr. Deborah Mohan IGG SUBCLASSES (1-4) AND TOT Kade 03-09-2022 IgG, Subclass 1 448 mg/dL Normal 248-810 [facility] [place] Comment on above: Performed By: #### B MUSIC THERAPY TEACHER, HSTROPN, CMP #### [facility] [address] [address] [address] Deborah Mohan IgG, Subclass 2 253 mg/dL Normal 130-555 [facility] [place] Comment on above: Performed By: #### B MUSIC THERAPY TEACHER, HSTROPN, CMP #### [facility] [address] [address] [address] Deborah Mohan IgG, Subclass 3 95 mg/dL Normal 15-102 [facility] Comment on above: Performed By: #### B MUSIC THERAPY TEACHER, HSTROPN, CMP #### [facility] [address] [address] [address] Deborah Mohan IgG, Subclass 4 10 mg/dL Normal 2-96 [facility] [place] Comment on above: Performed By: #### B MUSIC THERAPY TEACHER, HSTROPN, CMP #### [facility] [address] [address] [address] Deborah Mohan Immunoglobulin G, Qn, Serum 658 mg/dL Normal 586-1602 [facility] Comment on above: Performed By: #### B MUSIC THERAPY TEACHER, HSTROPN, CMP #### [facility] [address] [address] [address] Deborah Mohan IMMUNOGLOBULIN E, TOTALon Immunoglobulin E, Total 5 IU/mL Critically low 6-495 [facility] Comment on above: Performed By: #### I GETOT ####[facility] [address] [address]Dr. Deborah Mohan MICHELL EIA W/REFLEX 5 BIOMARKER Son 03-08-2022 MICHELL Direct Negative Normal Negative [facility] Comment on above: Performed By: #### A NARF #### [facility] [address] [address] [address] Deborah Mohan ANGIOTENSION-CONVERTING ENZY ME (FRANCESCO)on 03-08-2022 FRANCESCO 32 U/L Normal 14-82 [facility] Comment on above: Performed By: #### A NGIOC ####[facility] [address] [address]Dr. Deborah Mohan ANTIGLOMERULAR BASEMENT MEMB ROMMEL ABSon 03-08-2022 Anti-GBM Antibodies <0.2 Normal 0.0-0.9 [facility] Comment on above: Performed By: #### A GBM #### [facility] [address] [address] [address] Deborah Mohan IMMUNOGLOBULIN IGA QUANTITIA VEon 03-06-2022 Immunoglobulin A, Qn, Serum 229 mg/dL Normal 87-352 [facility] Comment on above: Performed By: #### A NARF #### [facility] [address] [address] [address] Deborah Mohan IMMUNOGLOBULIN IGM QUANTITAT IVEon 03-06-2022 Immunoglobulin M, Qn, Serum 83 mg/dL Normal 26-217 [facility] Comment on above: Performed By: #### B MUSIC THERAPY TEACHER, HSTROPN, CMP #### [facility] [address] [address] [address] Deborah Mohan RHEUMATOID FACTORon 03-06-20 22 RA Latex Turbid. 10.9 IU/mL Normal <14.0 [facility] Comment on above: Performed By: #### R F ####[facility] [address] [place], [place] [address]DrAnkur Mohan CREATININEon 03-05-2022 Creatinine [Mass/Vol] 1.38 mg/dL Critically high 0.55-1.02 [facility] Comment on above: Performed By: #### C MELVINA ####[facility] [address] [address]Dr. Deborah Mohan EGFR-AF TUNISIAN 46 mL/min/1.73m2 Critically low >=60 [facility] Comment on above: Performed By: #### C MELVINA ####[facility] [address] [address]Dr. Deborah Mohan EGFR-NON AF TUNISIAN 38 mL/min/1.73m2 Critically low >=60 [facility] Comment on above: Performed By: #### C MELVINA ####[facility] [address] [address]Dr. Deborah Mohan [facility] 92 mm/hr Critically high <=30 [facility] Comment on above: Performed By: #### B MUSIC THERAPY TEACHER, HSTROPAltagracia, CMP #### [facility] [address] [address] [address] Deborah Mohan XR DEXA BONE DENSITYon [...] CONDON Date: 2022-03-05 16:56 Normal [facility] XR CHEST 1 Von 03-01-2022 XR [...] NOVAK Date: 2022-02-28 22:27 Normal [facility] XR KNEE LUANA 4V or >on [...] Date: 2022-01-29 11:09 Normal [facility] CBC AUTO DIFFon 11-29-2021 BASO # 0.1 103/ul Normal 0.0-0.1 [facility] Comment on above: Performed By: #### C BC ####[facility] [address] [address]Dr. Deborah Mohan Basophils/100 WBC (Bld) 0.8 % Normal 0.2-2.0 [facility] Comment on above: Performed By: #### C BC ####[facility] [address] [place], [place] [address]Dr. Deborah Mohan EO # 0.3 103/ul Normal 0.0-0.7 [facility] Comment on above: Performed By: #### C BC ####[facility] [address] [place], [place] [address]Dr. Deborah Mohan Eosinophils/100 WBC (Bld) 2.2 % Normal 0.9-7.0 [facility] Comment on above: Performed By: #### C BC ####[facility] [address] [place], [place] [address]Dr. Deborah Mohan Erythrocyte distribution width (RBC) [Ratio] 21.2 % Critically high 11.0-15.0 [facility] Comment on above: Performed By: #### C BC ####[facility] [address] [place], [place] [address]Dr. Deborah Mohan Hematocrit (Bld) [Volume fraction] 33.2 % Critically low 36.0-48.0 [facility] Comment on above: Performed By: #### C BC ####[facility] [address] [place], [place] [address]Dr. Deborah Mohan Hemoglobin (Bld) [Mass/Vol] 10.3 g/dL Critically low 12.0-16.0 [facility] Comment on above: Performed By: #### C BC ####[facility] [address] [place], [place] [address]DrAnkur Deborah Mohan IG # 0.11 10e3/ul Critically high 0.00-0.03 [facility] Comment on above: Performed By: #### C BC ####[facility] [address] [address]DrAnkur Deborah Mohan IG % 0.9 % Critically high 0.0-0.5 [facility] Comment on above: Performed By: #### C BC ####[facility] [address] [address]DrAnkur Deborah Marques LYMPH # 2.2 103/ul Normal 1.2-3.8 [facility] Comment on above: Performed By: #### C BC ####[facility] [address] [place], [place] [address]DrAnkur Ann-Mariemich Mohan Lymphocytes/100 WBC (Bld) 18.5 % Critically low 20.5-60.0 [facility] Comment on above: Performed By: #### C BC ####[facility] [address] [place], [place] [address]DrAnkur Deborah Marques MANUAL DIFF REQ NO Normal [facility] Comment on above: Performed By: #### C BC ####[facility] [address] [place], [place] [address]DrAnkur Deborah Mohan MCH (RBC) [Entitic mass] 26.3 pg Critically low 26.7-34.0 [facility] Comment on above: Performed By: #### C BC ####[facility] [address] [place], [place] [address]DrAnkur Deborah Marques MCHC (RBC) [Mass/Vol] 31.0 g/dL Normal 29.9-35.2 [facility] Comment on above: Performed By: #### C BC ####[facility] [address] [place], [place] [address]DrAnkur Deborah Marques MCV (RBC) [Entitic vol] 84.9 fL Normal 81.0-99.0 [facility] Comment on above: Performed By: #### C BC ####[facility] [address] [place], [place] [address]Dr. Deborah Mohan MONO # 0.6 103/ul Normal 0.3-0.8 [facility] Comment on above: Performed By: #### C BC ####[facility] [address] [address]Dr. Deborah Mohan Monocytes/100 WBC (Bld) 5.3 % Normal 1.7-12.0 [facility] Comment on above: Performed By: #### C BC ####[facility] [address] [address]Dr. Deborah Mohan NEUT # 8.4 103/ul Critically high 1.4-6.5 [facility] Comment on above: Performed By: #### C BC ####[facility] [address] [address]Dr. Deborah Mohan Neutrophils/100 WBC (Bld) 72.3 % Normal 43.0-75.0 [facility] Comment on above: Performed By: #### C BC ####[facility] [address] [address]Dr. Deborah Mohan Platelet mean volume (Bld) [Entitic vol] 10.1 fL Normal 9.5-13.5 [facility] Comment on above: Performed By: #### C BC ####[facility] [address] [address]Dr. Deborah Mohan PLT 351 103/ul Normal 150-450 [facility] Comment on above: Performed By: #### C BC ####[facility] [address] [address]Dr. Deborah Mohan RBC 3.91 106/ul Critically low 4.20-5.40 [facility] Comment on above: Performed By: #### C BC ####[facility] [address] [address]Dr. Deborah Mohan WBC 11.6 103/ul Critically high 4.0-11.0 [facility] Comment on above: Performed By: #### C BC ####[facility] [address] [address]Dr. Deborah Mohan CTA CHEST WO W CONon 07-10-2 022 CTA CHEST WO W CON EXAMINATION: [...] 2. Bilateral peripheral fibrosis and/or scarring with sodl-of-xghrikum groundglass densities. The groundglass densities are slightly decreased compared to the prior scan. 3. Old calcified granulomas in the chest and abdomen. 4. Large hiatal hernia. 5. Moderate diffuse osteopenia. Electronically authenticated by: BERNARDO DENNY Date: 2021-11-29 20:31 Normal [facility] D-DIMERon 11-29-2021 D-DIMER 1.14 mg/L FEU Critically high <=0.59 [facility] Comment on above: Performed By: #### A NARF #### [facility] [address] [address] [address] Deborah Mohan D-DIMER COMMENTS SEE BELOW Normal [facility] Comment on [...] By: #### A NARF #### [facility] [address] [place] [address] Dr. Deborah Mohan PROF CHEM 8 (BAS METB)on Anion gap [Moles/Vol] 11.7 mmol/L Normal [facility] Comment on above: Performed By: #### B MP, HSTROPN #### [facility] [address] [place] [address] Dr. Deborah Mohan Calcium [Mass/Vol] 8.7 mg/dL Normal 8.5-10.1 [facility] Comment on above: Performed By: #### B MP, HSTROPN #### [facility] [address] [place] [address] Dr. Deborah Mohan Chloride [Moles/Vol] 107 mmol/L Normal 98-107 [facility] Comment on above: Performed By: #### B MP, HSTROPN #### [facility] [address] [address] [address] Deborah Mohan CO2 [Moles/Vol] 25.3 mmol/L Normal 21.0-32.0 [facility] Comment on above: Performed By: #### B MP, HSTROPN #### [facility] [address] [address] [address] Deborah Mohan Creatinine [Mass/Vol] 0.98 mg/dL Normal 0.55-1.02 [facility] Comment on above: Performed By: #### B MP, HSTROPN #### [facility] [address] [address] [address] Deborah Mohan EGFR-AF TUNISIAN >60 Normal >=60 [facility] Comment on above: Performed By: #### B MP, HSTROPN #### [facility] [address] [address] [address] Deborah Mohan EGFR-NON AF TUNISIAN 56 mL/min/1.73m2 Critically low >=60 [facility] Comment on above: Performed By: #### B MP, HSTROPN #### [facility] [address] [address] [address] Deborah Mohan Glucose [Mass/Vol] 105 mg/dL Normal 74-106 [facility] Comment on above: Performed By: #### B MP, HSTROPN #### [facility] [address] [place] [address] Dr. Deborah Mohan Potassium [Moles/Vol] 4.0 mmol/L Normal 3.5-5.1 [facility] Comment on above: Performed By: #### B MP, HSTROPN #### [facility] [address] [place] [address] Dr. Deborah Mohan Sodium [Moles/Vol] 140 mmol/L Normal 136-145 [facility] Comment on above: Performed By: #### B MP, HSTROPN #### [facility] [address] [address] [address] Deborah Mohan Urea nitrogen [Mass/Vol] 21.0 mg/dL Critically high 7.0-18.0 [facility] Comment on above: Performed By: #### B MP, HSTROPN #### [facility] [address] [place] [address] Dr. Deborah Mohan Urea nitrogen/Creatinine [Mass ratio] 21.4 mg/mg Normal [facility] Comment on above: Performed By: #### B MP, HSTROPN #### [facility] [address] [place] [address] Dr. Deborah Mohan TROPONIN, HIGH SENSITIVITYon 07-10-2022 HSTROP 4.5 pg/mL Normal 4.0-51.3 [facility] Comment on above: Result Comment: CUT- OFF POINTS HAVE BEEN ESTABLISHED BASED ON THE FOURTH UNIVERSAL DEFINITIONS OF MYOCARDIAL INFARCTION. THE UPPER REFERENCE LIMIT (URL) OF TROPONIN, DEFINED THE 99TH PERCENTILE OF cTnI DISTRIBUTION IN A REFERENCE POPULATION, HAS BEEN CONFIRMED THE DECISION THRESHOLD FOR CA DIAGNOSIS. Performed By: #### H STROPN ####[facility] [address] [place], [place] [address]BgDr. Deborah Mohan HSTROP 6.0 pg/mL Normal 4.0-51.3 [facility] Comment on above: Result Comment: CUT- OFF POINTS HAVE BEEN ESTABLISHED BASED ON THE FOURTH UNIVERSAL DEFINITIONS OF MYOCARDIAL INFARCTION. THE UPPER REFERENCE LIMIT (URL) OF TROPONIN, DEFINED THE 99TH PERCENTILE OF cTnI DISTRIBUTION IN A REFERENCE POPULATION, HAS BEEN CONFIRMED THE DECISION THRESHOLD FOR CA DIAGNOSIS. Performed By: #### B MP, HSTROPN #### [facility] [address] [place], [place] [address] Dr. Deborah Mohan XR CHEST 1 Von [...] by: KANDY BARRY Date: 2021-11-29 19:20 Normal [facility] XR LSPINE W_OBLS AND FLEX_EX Ton [...] ESTRADA Date: 2021-11-12 07:56 Normal [facility] CALCIUMon 11-11-2021 Calcium [Mass/Vol] 9.0 mg/dL Normal 8.5-10.1 [facility] Comment on above: Performed By: #### A NARF #### [facility] [address] [place] [address] Dr. Deborah Mohan CREATININEon 11-11-2021 Creatinine [Mass/Vol] 1.47 mg/dL Critically high 0.55-1.02 [facility] Comment on above: Performed By: #### A NARF #### [facility] [address] [place] [address] Dr. Deborah Mohan EGFR-AF TUNISIAN 43 mL/min/1.73m2 Critically low >=60 [facility] Comment on above: Performed By: #### A NARF #### [facility] [address] [place] [address] Dr. Deborah Mohan EGFR-NON AF TUNISIAN 35 mL/min/1.73m2 Critically low >=60 [facility] Comment on above: Performed By: #### A NARF #### [facility] [address] [place] [address] Dr. Deborah Mohan Vital Signs Date Time Vital Sign Value Performing Clinician Facility 01-24-2025 10:20040 Body height 157.5 cm Rosalba Osorio DO Work Phone: [facility] 01-24-2025 10:20-040 Body mass index (BMI) [Ratio] 34.39 kg/m2 Rosalba Osorio DO Work Phone: [facility] 01-24-2025 10:20-040 Body weight 85.28 kg Rosalba LiveLeaf DO Work Phone: [facility] 01-24-2025 10:20-0400 Diastolic blood pressure 98 mm[Hg] Rosalba Osorio DO Work Phone: [facility] 01-24-2025 10:20-0400 Heart rate 95 /min Rosalba Osorio DO Work Phone: [facility] 01-24-2025 10:20-0400 SaO2% (BldA) [Mass fraction] 98 % Rosalba Osorio DO Work Phone: [facility] 01-24-2025 10:20-0400 Systolic blood pressure 160 mm[Hg] Rosalba Osorio DO Work Phone: [facility] 03-20-2024 14:57-0400 Blood Pressure Location Anderson Gasp SolarL [facility] 03-20-2024 14:57-0400 Diastolic blood pressure 82 mm[Hg] Anderson VILLANUEVAL [facility] 03-20-2024 14:57-0400 Heart rate 70 /min Anderson VILLANUEVAL [facility] 03-20-2024 14:57-0400 Respiratory rate 16 /min Anderson VILLANUEVAL [facility] 03-20-2024 14:57-0400 Systolic blood pressure 126 mm[Hg] Anderson VILLANUEVAL [facility] Encounters Encounter Date Encounter Type Care Provider Facility Start: 01-31-2025 ambulatory Sabrina Ramirez lity:Myrna Start: 01-29-2025 End: 01-29-2025 Telephone encounter Beatrice Torres Otol[facility] Start: 01-25-2025 ambulatory Sabrina Wilkinson Facilit y:Myrna Start: 01-24-2025 End: 01-24-2025 Bamboo flowsheet Rosalba K Osorio DO Work Phone: [facility] Start: 01-24-2025 End: 01-24-2025 Bamboo flowsheet Rosalba Ac DO Work Phone: [facility] Start: 01-24-2025 End: 01-24-2025 Office outpatient new 45 minutes Rosalba Ac DO Work Phone: [facility] [place] [facility] Comment on above: Chronic obstructive pulmonary disease, unspecified COPD type (HCC) (Primary Dx) Start: 01-24-2025 End: 01-24-2025 ambulatory ROSALBA AC Not Available Start: 01-16-2025 End: 01-16-2025 ambulatory [facility] Start: 12-10-2024 End: 12-10-2024 ambulatory Natividad Silva Facility:[facility] Start: 12-10-2024 Non-patient / Non-visit Dima Barahona MD -[facility] Work Phone: Start: 10-22-2024 End: 10-22-2024 ambulatory Gabriella Woodruff MD Facility: [facility] Start: 04-25-2024 End: 04-25-2024 ambulatory Anderson PULLIAM Facility:CD:[id number] Start: 03-20-2024 End: 03-20-2024 ambulatory Anderson PULLIAM Facility: [facility] Start: 03-20-2024 End: 03-20-2024 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 procedure Anderson PULLIAM [facility] Start: 02-10-2024 ambulatory Sabrina Bailey y:SUE Jacques Start: 10-05-2022 End: 10-06-2022 ambulatory NARENDRANATH [...] Facility: [facility] Start: 05-08-2022 End: 05-08-2022 ambulatory WELDING INSPECTOR-C Clarita Blakeault Work Phone: [facility] Work Phone: Start: 05-08-2022 End: 05-08-2022 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 procedure WELDING INSPECTOR-C Clarita Nena Work Phone: [facility] Start: 04-08-2022 [...] Facility:[facility] Start: 11-11-2021 End: 11-13-[address] TRAVIS TOWNSEND . Facility:[facility] Start: 11-05-2021 End: 11-06-2021 ambulatory JOELSURENDRA WALTERIS . Facility: Start: 04-01-2018 End: 04-01-2018 Emergency department patient visit BRANDON RUSSELL [facility] Start: 12-11-2017 End: 12-11-2017 Emergency department patient visit ROBERT HURLEY Facility:[facility] Procedures Date Procedure Procedure Detail Performing Clinician Start: 05-08-2022 Plain X-ray of left wrist WELDING INSPECTOR-C Clarita Blakeault Work Phone: Start: 05-08-2022 X-ray of left ankle WELDING INSPECTOR -C Clarita Nena Work Phone: Start: 04-01-2018 IP CONSULT TO ORAL SURGERY BRANDON RUSSELL Start: 03-14-2013 Colonoscopy Anderson NI LL Appendectomy Anderson NILL Blepharoplasty Anderson NILL Bone structure of ma ndible (body structure) Anderson NILL Dilation and curettage [place] el NILL Extraction of cataract [place] NILL Ligation of fallopian tube Kyree segovia NILL Total abdominal hysterectomy with bilateral salpingo-oophorectomy Anderson NILL Plan of Treatment Date Care Activity Detail Author Start: 05-07-2025 End: 05-07-2025 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 procedure 05/07/2025 2:00 PM EST Office Visit [facility] [address] [place] [address] Rosalba Ac, DO [address] [place] [address] [facility] Start: 01-24-2025 End: 01-24-2025 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 procedure 01/24/2025 10:15 AM EDT Consult [facility] [address] [place] [address] Rosalba Ac DO [address] [place] [address] Arrived [facility] Comment on above: Arrived Start: 01-21-2025 Influenza vaccination Influenza Vacc ine (#1) [facility] Start: 1993 Screening for malign ant neoplasm of breast Mammogram [facility] Start: 1955 Screening for malign ant neoplasm of colon [facility] Immunizations Immunization Date Immunization Notes Care Provider Fa [facility] 06-05-2024 influenza virus vacc ine, unspecified formulation Rosalba Ac DO Work Phone: [facility] Healthcare Payers Date Payer Category Payer Self-pay 2023 Unknown 2021 Medicare (Managed Care) SONNY Adorno Amer[employer]reRAMOS [employer] [id number] 1959 Unknown [id number] 1953 Unknown [id number] 2..840.1.132114.3.579. 2.593 1953 Unknown [id number] 2.840.1.755421.3.579. 2.593 1953 Unknown [id number] 2.840.1.305898.3.579. 2.593 1953 Unknown [id number] 2.16.840.1.180224.3.579. 2.593 1953 Unknown [id number] 2.16.840.1.443608.3.579. 2.593 1953 Unknown [id number] 2.16.840.1.139379.3.579. 2.593 1953 Unknown [id number] 2.16.840.1.354763.3.579. 2.593 1953 Unknown [id number] 2.16.840.1.353229.3.579. 2.593 1953 Unknown [id number] 2.16.840.1.113538.3.579. 2.593 1953 Unknown [id number] 2.16.840.1.773124.3.579. 2.593 1953 Unknown [id number] 2.16.840.1.872732.3.579. 2.593 1953 Unknown [id number] 2.16.840.1.145991.3.579. 2.593 1953 Unknown [id number] 2.16.840.1.936593.3.579. 2.593 1953 Unknown [id number] 2.16.840.1.385101.3.579. 2.593 1953 Unknown [id number] 2.16.840.1.152492.3.579. 2.593 1953 Unknown [id number] 2.16.840.1.734687.3.579. 2.593 1953 Unknown [id number] 2.16.840.1.246268.3.579. 2.593 1953 Unknown [id number] 2.16.840.1.758520.3.579. 2.593 1953 Unknown [id number] 2.16.840.1.074605.3.579. 2.593 1953 Unknown [id number] 2.16.840.1.599375.3.579. 2.593 1953 Unknown [id number] 2.16.840.1.552346.3.579. 2.593 1953 Unknown [id number] 2.16.840.1.833865.3.579. 2.593 1953 Unknown [id number] 2.16.840.1.685607.3.579. 2.196 1953 Unknown [id number] 2.16.840.1.611060.3.579. 2.1259 1953 Unknown [id number] 2.16.840.1.215480.3.579. 2.727 1953 Unknown [id number] 2.16.840.1.797820.3.579. 2.727 1953 Unknown [id number] 2.16.840.1.752406.3.579. 2.727 Medicare [id number] Medicare Medicare [id number] Unknown [id number] Unknown [place] BC/BS [id number] Unknown [id number] 2.16.840.1.623157.3.579. 2.531 Social History Date Type Detail Facility [facility] Work Phone: Start: 1955 Sex Assigned At Female F [facility] Start: 03-20-2024 Tobacco smoking status Ex-smoker (fi nding) [facility] Tobacco smoking status Never [facility] Start: 01-20-2024 End: 01-24-2025 Sex Assigned At Female Santiago Bowers [facility] Start: 01-06-2024 End: 01-20-2024 Tobacco smoking status NHIS Never smoked tobacco (finding) [facility] Sex Female (finding) [facility] Start: 01-20-2024 Tobacco use and exposure Smokeless tobacco non-user [facility] Start: 01-20-2024 End: 01-24-2025 Alcoholic beverage intake Lifetime non-drinker (finding) [facility] Start: 01-20-2024 End: 01-24-2025 History of Social function [facility] Start: 1955 Sex assigned at Not on file N [facility] Functional Status Date Assessment Result Facility 03-20-2024 Functional Status N/A [facility] [place] Clinical Notes 11-05-2021 to 01-29-2025 Telephone Encounter - Beatrice Reyes MA - 01/29/2025 8:12 AM EDTTelephone Encounter - Beatrice Reyes MA - 01/29/2025 8:12 AM Lorenza Ac DO - 01/24/2025 10:15 AM EDT Note Date & Type Note Facility 01-29-2025 Telephone encounter Note Mary called stating that the Breztri is 122.00 wanted to know if she could get some more samples. I let her know we will get them together for her she can pick them up this afternoon. She understood. [facility] 01-29-2025 Miscellaneous Notes Mary called stating that the Breztri is 122.00 wanted to know if she could get some more samples. I let her know we will get them together for her she can pick them up this afternoon. She understood. documented in this encounter [facility] 01-24-2025 History of Presen t illness Narrative Images from the original note were not included. Mary Vick presents today for evaluation in regards to COPD and shortness of breath. She was referred by her primary care provider. She had been seen by Pulmonary in the past in [place]. She is here to establish care. She also gives a history of being evaluated by Cardiology last week. She states she was started on 2 new medications. These were Lasix and Farxiga. She has noticed improvement of her breathing since starting these medications. She was to the emergency department a few days ago secondary to complaints of shortness of breath. She did have a CT scan of her chest performed at that time. She did have PFTs performed prior to today's office visit. She does still note some shortness of breath with exertion but this has improved tremendously since he adjustment of her heart medications. She states that if she walks from the office room to her car she will be short of breath, but would not be panting like she had in the past. She denies any current complaints of chest pain or chest pressure. 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 However she states that this did not [...] mg in the evening. Take before meals. Gdlqrxf-Zsoxqbjhooa-Wdrvmclrpx (Breztri Aerosphere) 160-9-4.8 MCG/ACT aerosol Inhale 2 puffs in the morning and 2 puffs before bedtime. 10.7 g [...] Wt 188 lb SpO2 98% BMI 34.39 kg/m Exam: Heart: regular rate Lungs: clear to [...] hiatal hernia, diffuse interstitial changes/septal thickening similar to previous study in October 2024, worsening compression deformity and T10 vertebral body with some retropulsion into the spinal canal Assessment/Plan: Shortness breath/COPD -- she has been treated for COPD in the past. She is currently using Trelegy, however has not notice much improvement of her breathing. I did review her PFTs that were done in November 2024. These do not demonstrate any obstructive changes, however the patient was not able to exhale for full 6 seconds and therefore these were not valid test. She does have evidence of restrictive disease. This is likely secondary to her spine as well as large hiatal hernia. Given the restrictive disease this may be obscuring any obstructive changes. This time we discussed using Breztri as opposed to Trelegy. She was given samples and a prescription at today's office visit. She will continue with albuterol on an as needed basis, however [...] several months but was not able to use this for the full 4 hours that was [...] to fluid. There was no honeycombing present. I do not have the benefit of the images to review. I will have these pushed into the system here so that they can be reviewed. She will follow here in a few months time to reassess her symptoms with the adjustment of her inhaled regimen. Follow up in about 2 months (around 03/26/2025) for COPD. Rosalba Ac DO documented in this encounter [facility] 01-16-2025 Note [facility] Card[facility] Clinic Note Chief Complaint: Patient [...] mouth in the morning., Disp: , Rfl: fzgtsvkcjc-xkxrjepgfsuii-nlzn 50-325-40 mg tablet, Take 1 tablet by [...] atrial fibrillation Episodes (more content not included)... [facility] 03-20-2024 Note General Surgery Offi ce/Clinic Note [...] 1 tab(s), Or (more content not included)... [facility] Comment on above: Result Comment: Elec tronically Signed By: SHASHA GRANT, Anderson Serrano.nigel\Date and Time Signed: 03/20/24 16:53 EDT 07-08-2022 [...] clinic in three months. [facility] 06-24-2022 Note CONSULTATION CONSULTATION DATE: [...] at a time, as she works at [employer]. Current medications include Percocet 5/325 daily, diclofenac [...] for her knee injections. [facility] 04-08-2022 Note CONSULTATION CONSULTATION DATE: [...] time unless otherwise indicated. [facility] 03-09-2022 Note CONSULTATION CONSULTATION DATE: [...] CC: Natividad Silva CNP [facility] 01-28-2022 Note CONSULTATION CONSULTATION DATE: [...] of her bursa injection. [facility] 01-28-2022 Note CONSULTATION PROCEDURE DATE: [...] up in the clinic. [facility] 11-12-2021 Note PROCEDURE: XR HIPS [...] ESTRADA Date: 2021-11-12 07:50 [facility] 11-05-2021 Note CONSULTATION PROCEDURE DATE:11/05/2021 [...] will be followed up in the office. [facility] Signed and Approved by: JOEL RAMON . 11/18/2021 16:24:00 [facility] 11-05-2021 Note CONSULTATION CONSULTATION DATE: 11/05/2021 [...] time, was working half a day at [employer] and since then has increased to full [...] in three months' time unless otherwise indicated. [facility] Signed and Approved by: JOEL RAMON . 11/18/2021 16:24:00 [facility] Evaluation + Plan note No data available for this section [facility] Evaluation note No assessment inform ation available [facility] Work Phone: Evaluation note Diagnosis Chronic obstructive pulmonary disease, unspecified COPD type (HCC)- Primary [facility] No data available for this section [facility] Progress note No data available for this section [facility] Reason for referral (narrative)No reason for referral information [facility] Work Phone: Summary Purpose Family History Relationship Condition Age at Onset Recorded Date/T alan father Unknown mother Unknown Malignant neoplasm Unknown sister Malignant neoplasm Unknown Unknown Advance Directives Advance Directive Response Recorded Date/ Time Advance Directives No April 5:54pm Chief Complaint and Reason for Visit Chief Complaint Admit Date J44.1 December 10, 2024 12:2 1pm Additional Source Comments INFORMATION SOURCE (unrecogn ized section and content) DATE CREATED AUTHOR 12/21/2017 [facility] DATE CREATED AUTHOR AUTHOR'S ORGANIZ ATION 05/01/2018 [facility] DATE CREATED AUTHOR AUTHOR'S ORGANIZ ATION 10/06/2022 [facility] DATE CREATED AUTHOR AUTHOR'S ORGANIZ ATION 10/29/2024 [facility] DATE CREATED AUTHOR AUTHOR'S ORGANIZ ATION 12/26/2024 [facility] DATE CREATED AUTHOR AUTHOR'S ORGANIZ ATION 01/18/2025 [facility] DATE CREATED AUTHOR AUTHOR'S ORGANIZ ATION 01/26/2025 [facility] DATE CREATED AUTHOR AUTHOR'S ORGANIZ ATION 01/27/2025 [facility] Care Teams (unrecognized sec tion and content) Team Status: Inactive Member Role Status Dates TERRELL Johnson-Ren Attending Provider Active Team Status: Active Member Role Status Dates Natividad Silva NP-Ren Primary Care Provider Active Team Status: Active Member Role Status Dates Natividad Silva NP-C Primary Care Provider Active Start: December 10, 2024 Natividad Silva NP-Ren Other Provider Active S tart: December 10, 2024 Dima Barahona MD Attending Provider Active Start: December 10, 2024 Rotary Veneer Machine Operator Relationship Specialty Start Date End Date Natividad Silva MD [address] [place] [id number] Referring Physician Family Medicine 01/24/25 Rotary Veneer Machine Operator Relationship Specialty Start Date End Date Natividad Silva MD [address] [place] [id number] Referring Physician Family Medicine 01/24/25 Goals (unrecognized section and content) Goals may [...] BE BASED ON THE PRIMARY CLINICAL RECORDS. [facility]. provides no warranty or guarantee of the accuracy or completeness of information in this document.
[2025-01-31 12:38] LABS: Alanine Aminotransferase 22 U/L (14-59); Albumin Globulin Ratio 0.9; Albumin Level 3.7 g/dL (3.4-5.0); Alkaline Phosphatase 93 U/L (46-116); Anion Gap 17.3; Aspartate Amino Transferase 21 U/L (15-37); Blood Urea Nitrogen 9.0 mg/dL (7.0-18.0); Calcium 8.4 mg/dL (8.5-10.1); Carbon Dioxide 23.7 mmol/L (21.0-32.0); Chloride 104 mmol/L (98-107); Estimated GFR (African America >60 (>=60 mL/min/1.73m^2); Estimated GFR (Non-African Ame 54 (>=60 mL/min/1.73m^2); Globulin 4.1 g/dL; Glucose 137 mg/dL (74-106); Potassium 3.0 mmol/L (3.5-5.1); Sodium 142 mmol/L (136-145); Total Protein 7.8 g/dL (6.4-8.2)
== END 2025-01-31 11:41 | disposition home or self-care (01) ==
LOC: LAB 11:41
PROVIDERS: PCP Nurse Practitioner Family; Visit Provider Internal Medicine Interventional Cardiology
DX: I50.33 Acute on chronic diastolic (congestive) heart failure (principal)
CPT/HCPCS: 36415; 80053

== ENCOUNTER 2025-02-01 11:16 | Outpatient (OUT) | payer MEDICARE, SELFPAY ==
--- OUTSIDE RECORDS SUMMARY | 2025-01-24 10:15 | XMS_ITS | Encounter Summary ---
Author Organization [facility] Address [address] [place] [place] [address] Care Team Providers Care Digital Sales Executive Name Role Phone Natividad Milton MD Unavailable [phone] Encounter Details Date Type Department Care Team (Late st Contact Info) Description 01/24/2025 10:15 AM EDT Consult [facility] [address] [place] [place] [id number] Rosalba Ac DO [address] [facility] [place] [address] Chronic obstructive pulmonary disease, unspecified COPD type (HCC) (Primary Dx) Social History Tobacco Use Types Packs/Day Years [...] on file documented as of this encounter Last Filed Vital Signs Vital Sign Reading Time Taken Comments Blood Pressure 160/98 01/24/2025 10:20 AM EDT Pulse 95 01/24/2025 10:20 AM EDT Temperature - - Respiratory Rate - - Oxygen Saturation 98% 01/24/2025 10:20 AM EDT Inhaled Oxygen Concentration - - Weight 85.3 kg (188 lb) 01/24/2025 10:20 AM EDT Height 157.5 cm (5' 2 ) 01/24/2025 10:20 AM EDT Body Mass Index 34.39 01/24/2025 10:20 AM EDT documented in this encounter Progress Notes * Rosalba Ac, DO - 01/24/2025 10:15 AM EDT Images from the original note were not included. Mary Vick presents today for evaluation in regards to COPD and shortness of breath. She wasreferred by her primary care provider. She had been seen by Pulmonary in the past in [place]. She is here to establish care. She also gives a history of being evaluated by Cardiology last week. She states she was started on 2 new medications. These were Lasix and Farxiga. She has noticed improvement of her breathing since starting these medications. She was to the emergency department a few daysago secondary to complaints of shortness of breath. She did have a CT scan of her chest performed at that time. She did have PFTs performed prior to today's office visit. She does still note some shortness of breath with exertion but this has improved tremendously since he adjustment of her heart me dications. She states that if she walks from the office room to her car she will be short of breath, but would not be panting like she had in the past. She denies any current complaints of chest painor chest pressure. She denies any fevers, chills, or sweats. She does have a known hiatal hernia does question whether some of this may be playing a role in to her current symptoms as well. She does have a known history of reflux but states that this is fairly well controlled with use of Prilosec. She does continue to note some occasional burping. She was placed on Trelegy in the past by the her previous wellness nurse rn. However she states that this did not help her breathing very much. She does continue to use this. She does have albuterol she uses on as needed basis as well. She does have a known prior history of sleep apnea as well. She states she had a sleep study approximately a year so ago. She did try CPAP last summer, but was intolerant of the mask. She does continue to wake up frequently at night. She does have snoring as well as apneas. She denies any other complaints at this time. Allergies Allergen Reactions Sumatriptan Other and Unknown Tachycardia fainting Current Outpatient Medications Medication Sig Dispense Refill ARIPiprazole (Abilify) 20 MG tablet Take 30 mg by mouth in the morning. Calcium Carb-Cholecalciferol (Calcium Plus Vitamin D) 500-5 MG-MCG tablet Take 1 tablet by mouth levothyroxine (Synthroid, Levoxyl) 100 MCG tablet Take 50 mcg by mouth in the morning. metoprolol succinate XL (Toprol-XL) 100 MG 24 hr tablet Take 100 mg by mouth in the morning. omeprazole (PriLOSEC) [address] capsule Take 10 mg by mouth in the morning and 10 mg in the evening.Take before meals. Innewcy-Lanrmspwdbj-Xjfpflggta (Breztri Aerosphere) 160-9-4.8 MCG/ACT aerosol Inhale 2 puffs in themorning and 2 puffs before bedtime. 10.7 g 5 No current facility-administered medications for this visit. Past Medical History: Diagnosis Date Acid reflux Bipolar 1 disorder (HCC) Migraine Past Surgical History: Procedure Laterality Date DILATION AND CURETTAGE OF UTERUS HYSTERECTOMY MANDIBLE FRACTURE SURGERY Family History Problem Relation Name Age of Onset Cancer Mother Cancer Sister Social History Tobacco Use Smoking status: Never Smokeless tobacco: Never Substance Use Topics Alcohol use: Never BP (!) 160/98 Pulse 95 Ht 5' 2 Wt 188 lb SpO2 98% BMI 34.39 kg/m?? Exam: Heart: regular rate Lungs: clear to auscultation bilaterally, no wheezes/rales/rhonchi, no resp distress Extremities: no edema noted, no visible rashes Neuro: alert, oriented x3 Imaging Reviewed: PFT's from November 2024 reviewed--FVC 1.47 L (55 %), FEV1 1.19 L (59 %), ratio 81 %, no significant bronchodilator response, TLC 71 %, air trapping present, decreased DLCO that correct somewhat when adjusted for alveolar ventilation, patient would not able to exhale for full 6 seconds making spirometry not valid by ATS criteria Report of CT chest from January 2025 reviewed--no images available to review, no evidence of acute pulmonary embolism, large hiatal hernia, diffuse interstitial changes/septal thickening similar toprevious study in October 2024, worsening compression deformity and T10 vertebral body with some retropulsion into the spinal canal Assessment/Plan: Shortness breath/COPD -- she has been treated for COPD in the past. She is currently using Trelegy,however has not notice much improvement of her breathing. I did review her PFTs that were done in November 2024. These do not demonstrate any obstructive changes, however the patient was not able to exhale for full 6 seconds and therefore these were not valid test. 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 This is likely secondary to her spine as well as large hiatal hernia. Given the restrictive disease this may be obscuring any obstructive changes. This time we discussed using Breztri as opposed to Trelegy. She was given samples and a prescription at today's office visit. She will continuewith albuterol on an as needed basis, however she states this did not help very much. I do suspect the majority of her symptoms are related to heart disease as she has already noticed significant improvement of her breathing with the adjustments that were made by Cardiology. CONNIE -- she does have a known history of sleep apnea. She states she has been tried on CPAP in the past but has been intolerant of the mask. She did try this for several months but was not able to usethis for the full 4 hours that was required. She therefore returned the machine. We discussed that treating sleep apnea would also help her risk profile, cardiac disease, and breathing. However she is fearful that she would not be tolerant of his CPAP. Abnormal CT chest -- she did have a CT scan of her chest performed a few days ago when she presented with complaints of shortness of breath. This does state that she does have some interstitial changes. I do question whether some of this may be related to fluid. There was no honeycombing present. Celso not have the benefit of the images to review. I will have these pushed into the system here so that they can be reviewed. She will follow here in a few months time to reassess her symptoms with the adjustment of her inhaled regimen. Follow up in about 2 months (around 03/26/2025) for COPD. Rosalba Ac DO documented in this encounter Plan of Treatment Upcoming Encounters Date Type Department Care Team (Late st Contact Info) Description 05/07/2025 2:00 PM EST Office Visit [facility] [address] [place] [address] Rosalba Ac, DO [address] [place] [address] documented as of this encounter Visit Diagnoses Diagnosis Chronic obstructive pulmonary disease, unspecified COPD type (HCC)- Primary documented in this encounter Care Teams Digital Sales Executive Relationship Specialty Start Date End Date Natividad Milton MD [address] [place] [id number] Referring Physician Family Medicine 01/24/25 documented as of this encounter
--- OUTSIDE RECORDS SUMMARY | 2025-02-01 11:20 | XMS_ITS | Encounter Summary ---
Author Organization [facility] Address [address] [place] [address] Care Team Providers Care Smash Fixer Name Role Phone Natividad Milton MD Unavailable [phone] Encounter Details Date Type Department Care Team (Late Contact Info) Description 01/11/2025 Abstract [facility] [address] [place] [address] Rosalba Ac DO [address] [place] [address] Social History Tobacco Use Types Packs/Day Years [...] Encounters Date Type Department Care Team (Late Contact Info) Description 05/07/2025 2:00 PM EST Office Visit [facility] [address] [place] [id number] Rosalba Ac DO [address] [place] [address] documented as of this encounter Visit Diagnoses Not on filedocumented in this encounter Care Teams Smash Fixer Relationship Specialty Start Date End Date Natividad Milton MD [address] [place] [address] Referring Physician Family Medicine 01/24/25 documented as of this encounter
--- OUTSIDE RECORDS SUMMARY | 2025-02-01 11:20 | XMS_ITS | Clinical Summary ---
Author Organization [facility] Address [address] [place] [address] Care Team Providers Care First Assist Name Role Phone Travis Townsend MD Primary Care Provider [phone] Allergies Active Allergy Reactions Criticality Noted Date [...] 026 Active dapagliflozin propanediol (Farxiga) 10 mgIndications:Ac [place] on chronic heart failure with preserved ejection fraction (CMS/HCC) Take 1 tablet (10 mg) by mouth once daily as directed. 30 tablet 11 01/17/20 25 026 Active potassium chloride CR (K-Tab) 20 mEq ER tabletIndication s:Hypokalemia Take 2 tablets now and 2 tablets this evening. Then take 2 tablets daily starting the following day. Call office for further refills. 180 tablet 02/01/20 25 Active tiZANidine (Zanaflex) 4 mg tablet Take [...] Encounters Date Type Department Care Team Description 01/31/[address] [facility] [address] [place] [facility] [place] [address] Oumou Mcarthur MA 01/16/2025 2:45 PM EDT Office Visit [facility] [address] [place] [facility] [place] [address] Miriam Saenz MD Acute on chronic heart failure with preserved ejection fraction (CMS/HCC) (Primary Dx); Palpitations; Dyspnea on exertion; Nonrheumatic aortic valve insufficiency 11/05/[address] [facility] [address] [place] [facility] [place] [address] Miriam Saenz MD Benign hypertensive heart disease [...] How often do you attend chur or zoroastrianism services? More than 4 times per year [...] Patient Health Questionnaire-2 Score 0 03/16/2022 [facility] [place] [facility] Occupat ional [facility] - Occupational Stress [...] money to buy more. Never true 03/16/20 22 Within the past 12 months, t he [...] place to sleep or slept in a usp (including now)? No 03/16/2022 [facility] [...] Description 04/03/2025 3:00 PM EST Office Visit [facility] [address] [place] [address] Miriam Saenz MD [address] [facility] [place] [address] Health Maintenance Due Date Last Done Comments CT Colonography 1953 FIT-DNA 1953 FIT 1953 FOBT 1955 Medicare Annual Wellness (AWV) 1955 Sigmoidoscopy 1953 Depression Screening 1965 Mammogram 1993 Fall Risk Screening 2018 Colonoscopy 03/14/2023 03/14/2013 Colorectal Cancer Screening 03/14/2023 COVID-19 Vaccine ( season) 2025 04/30/2023, 07/09/2022, 02/12/2022, Additional history exists Influenza [...] topic Insurance [employer] MED[employer] ADVANTAGE Care Teams First Assist Relationship Specialty Start Date End Date Travis Townsend MD [address] [facility] [place] [phone] PCP - General 03/16/22
--- OUTSIDE RECORDS SUMMARY | 2025-02-01 11:20 | XMS_ITS | Encounter Summary ---
Author Organization [facility] Address [address] [facility] [place] [address] Care Team Providers Care Media Center Specialist Name Role Phone Natividad Milton MD Unavailable [phone] Encounter Details Date Type Department Care Team (Latest Contact Info) Description 01/24/2025 Travel Social History Tobacco Use Types Packs/Day Years [...] Office Visit [facility] [address] [place] [address] Rosalba Ac DO [address] [place] [address] documented as of this encounter Visit Diagnoses Not on filedocumented in this encounter Care Teams Media Center Specialist Relationship Specialty Start Date End Date Natividad Milton MD [address] [place] [address] Referring Physician Family Medicine 01/24/25 documented as of this encounter
--- OUTSIDE RECORDS SUMMARY | 2025-02-01 11:20 | XMS_ITS | Encounter Summary ---
Author Organization [facility] Address [address] [place] [address] Care Team Providers Care Attorney Recruiter Name Role Phone Natividad Milton MD Unavailable [phone] Encounter Details Date Type Department Care Team (Late Contact Info) Description 01/24/2025 Bamboo flowsheet [facility] [address] [place] [phone] Rosalba Ac DO [address] [place] [address] Social History Tobacco Use Types Packs/Day Years [...] Office Visit [facility] [address] [place] [phone] Rosalba Ac DO [address] [place] [address] documented as of this encounter Visit Diagnoses Not on filedocumented in this encounter Care Teams Attorney Recruiter Relationship Specialty Start Date End Date Natividad Milton MD [address] [place] [address] Referring Physician Family Medicine 01/24/25 documented as of this encounter
--- OUTSIDE RECORDS SUMMARY | 2025-02-01 11:20 | XMS_ITS | Encounter Summary ---
Author Organization [facility] Address [address] [place] [address] Care Team Providers Care Litigator Name Role Phone Travis Townsend MD Primary Care Provider [phone] Encounter Details Date Type Department Care Team (Late st Contact Info) Description 01/31/2025 Telephone [facility] [address] [place] [address] Oumou Mcarthur MA Social History Tobacco Use Types Packs/Day Years [...] often do you attend chur ch or worship services? More than 4 times per year 03/16/2022 Do you belong to any clubs o r organizations such as zoroastrian groups, unions, fraternal or athletic groups, or [...] Recorded Patient Health Questionnaire-2 Score 0 03/16/2022 [facility] - Occupational Stress Questionnaire Answer Date Recorded [...] place to sleep or slept in a fci (including now)? No 03/16/2022 [facility] [...] AM EDT documented as of this encounter Miscellaneous Notes * Telephone Encounter - Oumou Mcarthur MA - 01/31/2025 2:11 PM EDT Images from the original note were not included. Regarding lab results from : MD Oumou Martinez MA Please let her know her potassium is low likely due to the lasix. Let's send a script for 20 mEq Kdur and have her take 2 tablets PO now and two tablets in the evening. She is then to take 2 tablets daily starting tomorrow. Please check a BMP tomorrow 02/01 and Sunday 02/04 Thanks. Spoke with patient and informed her of new RX of Kdur with specific instructions per Dr. Saenz. She will have labs Tuesday and again on Tuesday. Orders sent. documented in this encounter Plan of Treatment Upcoming Encounters Date Type Department Care Team (Late st Contact Info) Description 04/03/2025 3:00 PM EST Office Visit [facility] [address] [place] [address] Miriam Saenz MD [address] [facility] [address] [facility] [place] [address] Scheduled Orders Name Type Priority Associated Diagnoses Orde r Schedule Basic metabolic panel Lab Routine Hypokalemia Expected: 01/31/2025 (Approximate), Expires: 01/31/2026 Basic metabolic panel Lab Routine Hypokalemia Expected: 01/31/2025 (Approximate), Expires: 01/31/2026 documented as of this encounter Visit Diagnoses Diagnosis Hypokalemia- Primary Hypopotassemia documented in this encounter Care Teams Litigator Relationship Specialty Start Date End Date Travis Townsend MD [address] [facility] [address] PCP - General 03/16/22 documented as of this encounter
--- OUTSIDE RECORDS SUMMARY | 2025-02-01 11:20 | XMS_ITS | Clinical Summary ---
Author Organization [facility] Address [address] [place] [address] Care Team Providers Care Mlt Name Role Phone Natividad Milton MD Unavailable Allergies Active Allergy Reactions Criticality Noted Date Comments Sumatriptan Other,Unknown 03/19/2020 Tachycardia fainting Medications ARIPiprazole (Abilify) 20 MG tablet Take 30 mg by mouth in the morning. Active Calcium Carb-Cholecalcif hiro (Calcium Plus Vitamin D) 500-5 MG-MCG tablet [...] in the evening. Take before meals. Active Budeson-Glycopyr rol-Formoterol (Breztri Aerosphere) 160-9-4.8 MCG/ACT aerosolIndicatio ns:Chronic obstructive pulmonary disease, unspecified COPD type (HCC) Inhale 2 puffs in the morning and 2 puffs before bedtime. 10.7 g 5 01/24/2025 Active Active Problems No known active problems Encounters Date Type Department Care Team Description 01/29/2025 Telephone [facility] [address] [place] [address] Beatrice Reyes MA 01/24/2025 10:15 AM EDT Consult [facility] [address] [place] [address] Rosalba Ac DO Chronic obstructive pulmonary disease, unspecified COPD type (HCC) (Primary Dx) 01/24/2025 Bamboo flowsheet [facility] [address] [place] [address] Rosalba Ac DO 01/24/2025 Travel 01/11/2025 Abstract [facility] [address] [place] [address] Rosalba Ac DO from Last 3 Months [...] Mass Index 34.39 01/24/2025 10:20 AM EDT Plan of Treatment Upcoming Encounters Date Type Department Care Team (Late st Contact Info) Description 05/07/2025 2:00 PM EST Office Visit [facility] [address] [place] [address] Rosalba Ac DO [address] [place] [address] Health Maintenance Due Date Last Done Comments CT Colonography 1953 Colonoscopy 1953 Colorectal Cancer Screening 1953 FIT-DNA 1953 FIT 1953 FOBT 1953 Sigmoidoscopy 1953 Mammogram 1993 Influenza Vaccine (#1) 2025 , 04/30/2023, 02/12/2022, Additional history exists Pneumococcal Vaccine: 65+ Years Completed 06/05/2024, 09/18/2021, 02/02/2020, Additional history exists Insurance [employer] MED[employer] ADVANTAGE Care Teams Mlt Relationship Specialty Start Date End Date Natividad Milton MD [facility] [place] [address] Referring Physician Family Medicine 01/24/25
--- OUTSIDE RECORDS SUMMARY | 2025-02-01 11:20 | XMS_ITS | Clinical Summary ---
Author Organization [facility] Address [address] [facility], [address] [place] [address] Care Team Providers Care Lead Setter Name Role Phone Bull Forrest MD Primary Care Provider [phone] Allergies No known active allergies Medications amLODIPine [...] of Treatment Not on file Insurance [place] [id number] MEDICARE Care Teams Lead Setter Relationship Specialty Start Date End Date Bull Forrest MD [address] [place] [phone] PCP - General Family Medicine 04/01/18
--- OUTSIDE RECORDS SUMMARY | 2025-02-01 11:20 | XMS_ITS | Encounter Summary ---
Author Organization [facility] Address [address] [place] [address] Care Team Providers Care Clinical Lab Specialist Name Role Phone Natividad Milton MD Unavailable [phone] Encounter Details Date Type Department Care Team (Late Contact Info) Description 01/29/2025 Telephone [facility] [address] [place] [address] Beatrice Reyes MA Social History Tobacco Use Types Packs/Day [...] on file documented as of this encounter Miscellaneous Notes * Telephone Encounter - Beatrice Reyes MA - 01/29/2025 8:12 AM EDT Mary called stating that the Breztri is 122.00 wanted to know if she could get some more samples. I let her know we will get them together for her she can pick them up this afternoon. She understood. documented in this encounter Plan of Treatment Upcoming Encounters Date Type Department Care Team (Late Contact Info) Description 05/07/2025 2:00 PM EST Office Visit [facility] [address] [place] [address] Rosalba Ac, DO [address] [place] [address] documented as of this encounter Visit Diagnoses Not on filedocumented in this encounter Care Teams Clinical Lab Specialist Relationship Specialty Start Date End Date Natividad Milton MD [address] [place] [address] Referring Physician Family Medicine 01/24/25 documented as of this encounter
--- OUTSIDE RECORDS SUMMARY | 2025-02-01 11:37 | XMS_ITS | CCD ---
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 Mohan IG # 0.07 10e3/ul Critically high 0.00-0.03 [facility] Comment on above: Performed By: #### A NARF #### [facility] [address] [place] [address] Dr. Deborah Mohan IG % 0.7 % Critically high 0.0-0.5 [facility] Comment on above: Performed By: #### A NARF #### [facility] [address] [place] [address] Dr. Deborah Mohan LYMPH # 1.9 103/ul Normal 1.2-3.8 [facility] Comment on above: Performed By: #### A NARF #### [facility] [address] [place] [address] Dr. Deborah Mohan Lymphocytes/100 WBC (Bld) 18.2 % Critically low 20.5-60.0 [facility] Comment on above: Performed By: #### A NARF #### [facility] [address] [place] [address] Dr. Deborah Mohan MANUAL DIFF REQ NO Normal [facility] Comment on above: Performed By: #### A NARF #### [facility] [address] [place] [address] Dr. Deborah Mohan MCH (RBC) [Entitic mass] 25.3 pg Critically low 26.7-34.0 [facility] Comment on above: Performed By: #### A NARF #### [facility] [address] [place] [address] Dr. Deborah Mohan MCHC (RBC) [Mass/Vol] 30.9 g/dL Normal 29.9-35.2 [facility] Comment on above: Performed By: #### A NARF #### [facility] [address] [place] [address] Dr. Deborah Mohan MCV (RBC) [Entitic vol] 81.8 fL Normal 81.0-99.0 [facility] Comment on above: Performed By: #### A NARF #### [facility] [address] [place] [address] Dr. Deborah Mohan MONO # 0.7 103/ul Normal 0.3-0.8 [facility] Comment on above: Performed By: #### A NARF #### [facility] [address] [place], [place] [id number] Dr. Deborah Mohan Monocytes/100 WBC (Bld) 7.1 % Normal 1.7-12.0 [facility] Comment on above: Performed By: #### A NARF #### [facility] [address] [place] [address] Dr. Deborah Mohan NEUT # 7.4 103/ul Critically high 1.4-6.5 [facility] Comment on above: Performed By: #### A NARF #### [facility] [address] [place] [address] Dr. Deborah Mohan Neutrophils/100 WBC (Bld) 70.6 % Normal 43.0-75.0 [facility] Comment on above: Performed By: #### A NARF #### [facility] [address] [place] [address] Dr. eDborah Mohan Platelet mean volume (Bld) [Entitic vol] 9.7 fL Normal 9.5-13.5 [facility] Comment on above: Performed By: #### A NARF #### [facility] [address] [place] [address] Dr. Deborah Mohan PLT 398 103/ul Normal 150-450 [facility] Comment on above: Performed By: #### A NARF #### [facility] [address] [place] [address] Dr. Deborah Mohan RBC 3.52 106/ul Critically low 4.20-5.40 [facility] Comment on above: Performed By: #### A NARF #### [facility] [address] [place] [address] Dr. Deborah Mohan WBC 10.5 103/ul Normal 4.0-11.0 [facility] Comment on above: Performed By: #### A NARF #### [facility] [address] [place] [address] Dr. Deborah Mohan PROF 14(COMP METB)on 04-07- 022 Albumin [Mass/Vol] 3.2 g/dL Critically low 3.4-5.0 [facility] Comment on above: Performed By: #### H STROPN, CMP ####[facility] [address] [place] [id number]. Deborah Mohan Albumin/Globulin [Mass ratio] 0.9 {ratio} Normal [facility] Comment on above: Performed By: #### H DENIS, CMP ####[facility] [address] [place] [id number]. Deborah Mohan ALP [Catalytic activity/Vol] 89 U/L Normal 46-116 [facility] Comment on above: Performed By: #### H DENIS, CMP ####[facility] [address] [place] [address]Dr. Deborah Mohan ALT [Catalytic activity/Vol] 17 U/L Normal 14-59 [facility] Comment on above: Performed By: #### H DENIS, CMP ####[facility] [address] [place] [address]Dr. Deborah Mohan Anion gap [Moles/Vol] 11.2 mmol/L Normal [facility] Comment on above: Performed By: #### H DENIS, CMP ####[facility] [address] [place] [id number]. Deborah Mohan AST [Catalytic activity/Vol] 14 U/L Critically low 15-37 [facility] Comment on above: Performed By: #### H DENIS, CMP ####[facility] [address] [place] [id number]. Deborah Mohan Bilirubin [Mass/Vol] 0.2 mg/dL Normal 0.2-1.0 [facility] Comment on above: Performed By: #### H DENIS, CMP ####[facility] [address] [place] [id number]. Deborah Mohan Calcium [Mass/Vol] 9.1 mg/dL Normal 8.5-10.1 [facility] Comment on above: Performed By: #### H DENSI, CMP ####[facility] [address] [place] [id number]. Deborah Mohan Chloride [Moles/Vol] 104 mmol/L Normal 98-107 [facility] Comment on above: Performed By: #### H DENIS, CMP ####[facility] [address] [place] [address]Dr. Deborah Mohan CO2 [Moles/Vol] 24.8 mmol/L Normal 21.0-32.0 [facility] Comment on above: Performed By: #### H STROPN, CMP ####[facility] [address] [place] [address]Dr. Deborah Mohan Creatinine [Mass/Vol] 1.21 mg/dL Critically high 0.55-1.02 [facility] Comment on above: Performed By: #### H STROPN, CMP ####[facility] [address] [place], [place] [address]Dr. Deborah Marques EGFR-AF [place] 54 mL/min/1.73m2 Critically low >=60 [facility] Comment on above: Performed By: #### H STROPN, CMP ####[facility] [address] [place], [place] [address]Dr. Ann-Mariemich Marques EGFR-NON AF [place] 44 mL/min/1.73m2 Critically low >=60 [facility] Comment on above: Performed By: #### H STROPN, CMP ####[facility] [address] [place], [place] [address]Dr. Deborah Mohan Globulin (S) [Mass/Vol] 3.7 g/dL Normal [facility] Comment on above: Performed By: #### H STROPN, CMP ####[facility] [address] [place] [address]Dr. Deborah Mohan Glucose [Mass/Vol] 118 mg/dL Critically high 74-106 [facility] Comment on above: Performed By: #### H STROPN, CMP ####[facility] [address] [place], [place] [address]Dr. Deborah Mohan Potassium [Moles/Vol] 4.0 mmol/L Normal 3.5-5.1 [facility] Comment on above: Performed By: #### H STROPN, CMP ####[facility] [address] [place], [place] [address]Dr. Ann-Mariemich Mohan Protein [Mass/Vol] 6.9 g/dL Normal 6.4-8.2 [facility] Comment on above: Performed By: #### H DENIS, CMP ####[facility] [address] [place] [id number]. Deborah Mohan Sodium [Moles/Vol] 136 mmol/L Normal 136-145 [facility] Comment on above: Performed By: #### H DENIS, CMP ####[facility] [address] [place] [phone]. Deborah Mohan Urea nitrogen [Mass/Vol] 28.0 mg/dL Critically high 7.0-18.0 [facility] Comment on above: Performed By: #### H DENIS, CMP ####[facility] [address] [place] [address]Dr. Deborah Mohan Urea nitrogen/Creatinine [Mass ratio] 23.1 mg/mg Normal [facility] Comment on above: Performed By: #### H DENIS, CMP ####[facility] [address] [place] [address]Dr. Deborah Mohan TROPONIN, HIGH SENSITIVITYon 04-07-2022 HSTROP 5.9 pg/mL Normal 4.0-51.3 [facility] Comment on above: Result Comment: CUT- OFF POINTS HAVE BEEN ESTABLISHED BASED ON THE FOURTH UNIVERSAL DEFINITIONS OF MYOCARDIAL INFARCTION. THE UPPER REFERENCE LIMIT (URL) OF TROPONIN, DEFINED THE 99TH PERCENTILE OF cTnI DISTRIBUTION IN A REFERENCE POPULATION, HAS BEEN CONFIRMED THE DECISION THRESHOLD FOR ID DIAGNOSIS. Performed By: #### H DENIS, CMP ####[facility] [address] [place] [id number]. Deborah Mohan XR CHEST 1 Von 04-07-2022 [...] Date: 2022-04-07 03:11 Normal [facility] HEMOGLOBINon 03-12-2022 Hemoglobin (Bld) [Mass/Vol] 9.2 g/dL Critically low 12.0-16.0 [facility] Comment on above: Performed By: #### A NARF #### [facility] [address] [place] [address] [address] Deborah Mohan ANTI NEUTROPHIL CYTOPLASMIC AB (ANCA) PRon 03-09-2022 Anti-MPO Antibodies <0.2 Normal 0.0-0.9 [facility] Comment on above: Result Comment: Perf ormed at: BN Performed By: #### B CANOE MAKER, HSTROPN, CMP #### [facility] [address] [place] [address] Dr. Deborah Mohan Anti-PR3 Antibodies <0.2 Normal 0.0-0.9 [facility] Comment on above: Result Comment: Perf ormed at: BN Performed By: #### B CANOE MAKER, HSTROPN, CMP #### [facility] [address] [place] [address] Dr. Deborah Mohan Atypical pANCA 1:160 Critically high Neg:<1:20 [facility] Comment on above: Result Comment: The atypical pANCA pattern has been observed in a significant percentage of patients with ulcerative colitis, primary sclerosing cholangitis and autoimmune hepatitis. Performed at: CB Performed By: #### B CANOE MAKER, HSTROPN, CMP #### [facility] [address] [place] [address] [address] Deborah Mohan Cytoplasmic (C-ANCA) <1:20 Normal Neg:<1:20 [facility] Comment on above: Result Comment: Perf ormed at: CB Performed By: #### B CANOE MAKER, HSTROPN, CMP #### [facility] [address] [place] [address] Dr. Deborah Mohan Perinuclear (P-ANCA) <1:20 Normal Neg:<1:20 [facility] Comment on above: Result Comment: The presence [...] Performed at: CB Performed By: #### B CANOE MAKER, HSTROPN, CMP #### [facility] [address] [place] [address] [address] Deborah Mohan ANTISCLERODERMA ABon 022 Antiscleroderma-70 Antibodies <0.2 Normal 0.0-0.9 [facility] Comment on above: Performed By: #### A NARF #### [facility] [address] [place] [address] CHEST WO CONon [...] Strong positive >59 Performed By: #### B CANOE MAKER, HSTROPN, CMP #### [facility] [address] [place] [address] [address] Deborah Mohan IGG SUBCLASSES (1-4) AND TOT Kade 03-09-2022 IgG, Subclass 1 448 mg/dL Normal 248-810 [facility] Comment on above: Performed By: #### B CANOE MAKER, HSTROPN, CMP #### [facility] [address] [place], [place] [address] Dr. Deborah Mohan IgG, Subclass 2 253 mg/dL Normal 130-555 [facility] Comment on above: Performed By: #### B CANOE MAKER, HSTROPN, CMP #### [facility] [address] [place] [id number] [address] Deborah Mohan IgG, Subclass 3 95 mg/dL Normal 15-102 [facility] Comment on above: Performed By: #### B CANOE MAKER, HSTROPN, CMP #### [facility] [address] [place] [address] [address] Deborah Mohan IgG, Subclass 4 10 mg/dL Normal 2-96 [facility] Comment on above: Performed By: #### B CANOE MAKER, HSTROPN, CMP #### [facility] [address] [place] [address] [address] Deborah Mohan Immunoglobulin G, Qn, Serum 658 mg/dL Normal 586-1602 [facility] Comment on above: Performed By: #### B CANOE MAKER, HSTROPN, CMP #### [facility] [address] [place] [address] [address] Deborah Mohan IMMUNOGLOBULIN E, TOTALon Immunoglobulin E, Total 5 IU/mL Critically low 6-495 [facility] Comment on above: Performed By: #### I GETOT ####[facility] [address] [place], [place] [address]QhDr. Deborah Mohan MICHELL EIA W/REFLEX 5 BIOMARKER Son 03-08-2022 MICHELL Direct Negative Normal Negative [facility] Comment on above: Performed By: #### A NARF #### [facility] [phone] Deborah Mohan ANGIOTENSION-CONVERTING ENZY ME (FRANCESCO)on 03-08-2022 FRANCESCO 32 U/L Normal 14-82 [facility] Comment on above: Performed By: #### A NGIOC ####[facility] [address] [place] [id number]. Deborah Mohan ANTIGLOMERULAR BASEMENT MEMB ROMMEL ABSon 03-08-2022 Anti-GBM Antibodies <0.2 Normal 0.0-0.[address] [facility] Comment on above: Performed By: #### A GBM #### [facility] [address] [place] [address] [address] Deborah Mohan IMMUNOGLOBULIN IGA QUANTITIA VEon 03-06-2022 Immunoglobulin A, Qn, Serum 229 mg/dL Normal 87-352 [facility] Comment on above: Performed By: #### A NARF #### [facility] [address] [place] [address] [address] Deborah Mohan IMMUNOGLOBULIN IGM QUANTITAT IVEon 03-06-2022 Immunoglobulin M, Qn, Serum 83 mg/dL Normal 26-217 [facility] Comment on above: Performed By: #### B CANOE MAKER, HSTROPN, CMP #### [facility] [address] [place] [address] [address] Deborah Mohan RHEUMATOID FACTORon 03-06-20 22 RA Latex Turbid. 10.9 IU/mL Normal <14.0 [facility] Comment on above: Performed By: #### R F ####[facility] [address] [place] [id number]. Deborah Mohan CREATININEon 03-05-2022 Creatinine [Mass/Vol] 1.38 mg/dL Critically high 0.55-1.02 [facility] Comment on above: Performed By: #### C MELVINA ####[facility] [address] [place] [id number]. Deborah Mohan EGFR-AF [place] 46 mL/min/1.73m2 Critically low >=60 [facility] Comment on above: Performed By: #### C MELVINA ####[facility] [address] [place] [address]Dr. Deborah Mohan EGFR-NON AF [place] 38 mL/min/1.73m2 Critically low >=60 [facility] Comment on above: Performed By: #### C MELVINA ####[facility] [address] [place], [place] [address]Dr. Deborah Mohan SED RATE WESTERGRENon 2021 SED RATE 92 mm/hr Critically high <=30 [facility] Comment on above: Performed By: #### B CANOE MAKER, HSTROPN, CMP #### [facility] [address] [place], [place] [address] Dr. Deborah Mohan XR DEXA BONE DENSITYon [...] CONDON Date: 2022-03-05 16:56 Normal [facility] XR CHEST 1 Von 03-01-2022 XR CHEST [...] NOVAK Date: 2022-02-28 22:27 Normal [facility] XR KNEE LUANA 4V or >on 2021 [...] RAUDEL ESTRADA Date: 2022-01-29 11:09 Normal [facility] CBC AUTO DIFFon 11-29-2021 BASO # 0.1 103/ul Normal 0.0-0.1 [facility] Comment on above: Performed By: #### C BC ####[facility] [address] [place] [address]Dr. Deborah Mohan Basophils/100 WBC (Bld) 0.8 % Normal 0.2-2.0 [facility] Comment on above: Performed By: #### C BC ####[facility] [address] [place] [address]Dr. Deborah Mohan EO # 0.3 103/ul Normal 0.0-0.7 [facility] Comment on above: Performed By: #### C BC ####[facility] [address] [place], [place] [address]Dr. Deborah Mohan Eosinophils/100 WBC (Bld) 2.2 % Normal 0.9-7.0 [facility] Comment on above: Performed By: #### C BC ####[facility] [address] [place] [id number]. Deborah Mohan Erythrocyte distribution width (RBC) [Ratio] 21.2 % Critically high 11.0-15.0 [facility] Comment on above: Performed By: #### C BC ####[facility] [address] [place] [address]Dr. Deborah Mohan Hematocrit (Bld) [Volume fraction] 33.2 % Critically low 36.0-48.0 [facility] Comment on above: Performed By: #### C BC ####[facility] [address] [place], [place] [address]Dr. Deborah Mohan Hemoglobin (Bld) [Mass/Vol] 10.3 g/dL Critically low 12.0-16.0 [facility] Comment on above: Performed By: #### C BC ####[facility] [address] [place] [address]Dr. Deborah Mohan IG # 0.11 10e3/ul Critically high 0.00-0.03 [facility] Comment on above: Performed By: #### C BC ####[facility] [address] [place] [address]Dr. Deborah Mohan IG % 0.9 % Critically high 0.0-0.5 [facility] Comment on above: Performed By: #### C BC ####[facility] [address] [place] [address]Dr. Deborah Mohan LYMPH # 2.2 103/ul Normal 1.2-3.8 [facility] Comment on above: Performed By: #### C BC ####[facility] [address] [place] [address]Dr. Ann-Mariemich Mohan Lymphocytes/100 WBC (Bld) 18.5 % Critically low 20.5-60.0 [facility] Comment on above: Performed By: #### C BC ####[facility] [address] [place] [address]Dr. Deborah Mohan MANUAL DIFF REQ NO Normal [facility] Comment on above: Performed By: #### C BC ####[facility] [address] [place] [address]Dr. Deborah Mohan MCH (RBC) [Entitic mass] 26.3 pg Critically low 26.7-34.0 [facility] Comment on above: Performed By: #### C BC ####[facility] [address] [place] [address]Dr. Deborah Mohan MCHC (RBC) [Mass/Vol] 31.0 g/dL Normal 29.9-35.2 [facility] Comment on above: Performed By: #### C BC ####[facility] [address] [place] [address]Dr. Deborah Mohan MCV (RBC) [Entitic vol] 84.9 fL Normal 81.0-99.0 [facility] Comment on above: Performed By: #### C BC ####[facility] [address] [place] [address]Dr. Deborah Mohan MONO # 0.6 103/ul Normal 0.3-0.8 [facility] Comment on above: Performed By: #### C BC ####[facility] [address] [place] [address]Dr. Deborah Mohan Monocytes/100 WBC (Bld) 5.3 % Normal 1.7-12.0 [facility] Comment on above: Performed By: #### C BC ####[facility] [address] [place] [address]Dr. Deborah Mohan NEUT # 8.4 103/ul Critically high 1.4-6.5 [facility] Comment on above: Performed By: #### C BC ####[facility] [address] [place] [address]Dr. Deborah Mohan Neutrophils/100 WBC (Bld) 72.3 % Normal 43.0-75.0 [facility] Comment on above: Performed By: #### C BC ####[facility] [address] [place] [address]Dr. Deborah Mohan Platelet mean volume (Bld) [Entitic vol] 10.1 fL Normal 9.5-13.5 [facility] Comment on above: Performed By: #### C BC ####[facility] [address] [place] [address]Dr. Deborah Mohan PLT 351 103/ul Normal 150-450 [facility] Comment on above: Performed By: #### C BC ####[facility] [address] [place] [address]Dr. Deborah Mohan RBC 3.91 106/ul Critically low 4.20-5.40 [facility] Comment on above: Performed By: #### C BC ####[facility] [address] [place] [id number]. Deborah Mohan WBC 11.6 103/ul Critically high 4.0-11.0 [facility] Comment on above: Performed By: #### C BC ####[facility] [address] [place], [place] [address]Ls. Deborah Mohan CTA CHEST WO W CONon [...] 2. Bilateral peripheral fibrosis and/or scarring with kvzz-hv-cnavwweb groundglass densities. The groundglass densities are slightly decreased compared to the prior scan. 3. Old calcified granulomas in the chest and abdomen. 4. Large hiatal hernia. 5. Moderate diffuse osteopenia. Electronically authenticated by: BERNARDO DENNY Date: 2021-11-29 20:31 Normal [facility] D-DIMERon 11-29-2021 D-DIMER 1.14 mg/L FEU Critically high <=0.59 [facility] Comment on above: Performed By: #### A NARF #### [facility] [address] [place] [address] Dr. Deborah Mohan D-DIMER COMMENTS SEE BELOW Normal [facility] Comment on above: Result Comment: Incr [...] #### A NARF #### [facility] [address] [place] [address] Dr. Deborah Mohan PROF CHEM 8 (BAS METB)on Anion gap [Moles/Vol] 11.7 mmol/L Normal [facility] Comment on above: Performed By: #### B KYLEE, HSTROPN #### [facility] [address] [place] [address] Dr. Deborah Mohan Calcium [Mass/Vol] 8.7 mg/dL Normal 8.5-10.1 [facility] Comment on above: Performed By: #### B KYLEE, HSTROPN #### [facility] [address] [place] [address] Dr. Deborah Mohan Chloride [Moles/Vol] 107 mmol/L Normal 98-107 [facility] Comment on above: Performed By: #### B KYLEE, HSTROPN #### [facility] [address] [place] [address] Dr. Deborah Mohan CO2 [Moles/Vol] 25.3 mmol/L Normal 21.0-32.0 [facility] Comment on above: Performed By: #### B MP, HSTROPN #### [facility] [address] [place] [address] Dr. Deborah Mohan Creatinine [Mass/Vol] 0.98 mg/dL Normal 0.55-1.02 [facility] Comment on above: Performed By: #### B KYLEE, HSTROPN #### [facility] [address] [place] [address] [address] Deborah Mohan EGFR-AF [place] >60 Normal >=60 [facility] Comment on above: Performed By: #### B KYLEE, HSTROPN #### [facility] [address] [place] [address] [address] Deborah Mohan EGFR-NON AF [place] 56 mL/min/1.73m2 Critically low >=60 [facility] Comment on above: Performed By: #### B KYLEE, HSTROPN #### [facility] [address] [place] [address] Dr. Deborah Mohan Glucose [Mass/Vol] 105 mg/dL Normal 74-106 [facility] Comment on above: Performed By: #### B KYLEE, HSTROPN #### [facility] [address] [place] [address] [address] Deborah Mohan Potassium [Moles/Vol] 4.0 mmol/L Normal 3.5-5.1 [facility] Comment on above: Performed By: #### B KYLEE, HSTROPN #### [facility] [address] [place] [address] Dr. Deborah Mohan Sodium [Moles/Vol] 140 mmol/L Normal 136-145 [facility] Comment on above: Performed By: #### B KYLEE, HSTROPN #### [facility] [address] [place] [address] Dr. Deborah Mohan Urea nitrogen [Mass/Vol] 21.0 mg/dL Critically high 7.0-18.0 [facility] Comment on above: Performed By: #### B KYLEE, HSTROPN #### [facility] [address] [place] [address] Dr. Deborah Mohan Urea nitrogen/Creatinine [Mass ratio] 21.4 mg/mg Normal [facility] Comment on above: Performed By: #### B KYLEE, HSTROPN #### [facility] [address], [place] [address] Dr. Deborah Mohan TROPONIN, HIGH SENSITIVITYon 11-29-2021 HSTROP 4.5 pg/mL Normal 4.0-51.3 [facility] Comment on above: Result Comment: CUT- OFF POINTS HAVE BEEN ESTABLISHED BASED ON THE FOURTH UNIVERSAL DEFINITIONS OF MYOCARDIAL INFARCTION. THE UPPER REFERENCE LIMIT (URL) OF TROPONIN, DEFINED THE 99TH PERCENTILE OF cTnI DISTRIBUTION IN A REFERENCE POPULATION, HAS BEEN CONFIRMED THE DECISION THRESHOLD FOR ID DIAGNOSIS. Performed By: #### H STROPN ####[facility] [address] [place], [place] [address]JwDr. Deborah Mohan HSTROP 6.0 pg/mL Normal 4.0-51.3 [facility] Comment on above: Result Comment: CUT- OFF POINTS HAVE BEEN ESTABLISHED BASED ON THE FOURTH UNIVERSAL DEFINITIONS OF MYOCARDIAL INFARCTION. THE UPPER REFERENCE LIMIT (URL) OF TROPONIN, DEFINED THE 99TH PERCENTILE OF cTnI DISTRIBUTION IN A REFERENCE POPULATION, HAS BEEN CONFIRMED THE DECISION THRESHOLD FOR ID DIAGNOSIS. Performed By: #### B MP, HSTROPN #### [facility] [address], [place] [address] Dr. Deborah Mohan XR CHEST 1 Von [...] KANDY BARRY Date: 2021-11-29 19:20 Normal [facility] XR LSPINE W_OBLS AND FLEX_EX Ton 11-12-2021 [...] by: RAUDEL ESTRADA Date: 2021-11-12 07:56 Normal [facility] CALCIUMon 11-11-2021 Calcium [Mass/Vol] 9.0 mg/dL Normal 8.5-10.1 [facility] Comment on above: Performed By: #### A NARF #### [facility] [address] [place] [address] Dr. Deborah Mohan CREATININEon 11-11-2021 Creatinine [Mass/Vol] 1.47 mg/dL Critically high 0.55-1.02 [facility] Comment on above: Performed By: #### A NARF #### [facility] [address] [place] [address] [address] Deborah Mohan EGFR-AF [place] 43 mL/min/1.73m2 Critically low >=60 [facility] Comment on above: Performed By: #### A NARF #### [facility] [address] [place] [address] Dr. Deborah Mohan EGFR-NON AF [place] 35 mL/min/1.73m2 Critically low >=60 [facility] Comment on above: Performed By: #### A NARF #### [facility] [address] [place] [address] Dr. Deborah Mohan Vital Signs Date Time Vital Sign Value Performing Clinician Facility 01-24-2025 10:20-040 Body height 157.5 cm CloudAmbo DO Work Phone: [facility] 01-24-2025 10:20-040 Body mass index (BMI) [Ratio] 34.39 kg/m2 Rosalba Baihe DO Work Phone: [facility] 01-24-2025 10:20-0400 Body weight 85.28 kg Rosalba Osorio DO Work Phone: [facility] 01-24-2025 10:20-0400 Diastolic blood pressure 98 mm[Hg] Rosalba Osorio DO Work Phone: [facility] 01-24-2025 10:20-0400 Heart rate 95 /min Rosalba Osorio DO Work Phone: [facility] 01-24-2025 10:20-0400 SaO2% (BldA) [Mass fraction] 98 % Rosalba Osorio DO Work Phone: [facility] 01-24-2025 10:20-0400 Systolic blood pressure 160 mm[Hg] Rosalba Osorio DO Work Phone: [facility] 03-20-2024 14:57-0400 Blood Pressure Location [facility] 03-20-2024 14:57-0400 Diastolic blood pressure 82 mm[Hg] [facility] 03-20-2024 14:57-0400 Heart rate 70 /min [facility] 03-20-2024 14:57-0400 Respiratory rate 16 /min Anderson NILL [facility] 03-20-2024 14:57-0400 Systolic blood pressure 126 mm[Hg] [facility] NILL [facility] Encounters Encounter Date Encounter Type Care Provider Facility Start: 01-31-2025 ambulatory Sabrina Ramirez lity:[facility] Start: 01-31-2025 End: 01-31-2025 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 procedure Sabrina Wilknison [facility] Start: 01-29-2025 End: 01-29-2025 Telephone encounter Beatrice Reyes MA [facility] Start: 01-25-2025 ambulatory Sabrina Wilkinson Facilit y:[facility] Start: 01-24-2025 End: 01-24-2025 Bamboo flowsheet Rosalba Danya Osorio DO Work Phone: [facility] Start: 01-24-2025 End: 01-24-2025 Bamboo flowsheet Rosalba Danya Osorio DO Work Phone: [facility] Start: 01-24-2025 End: 01-24-2025 Office outpatient new 45 minutes Rosalba Danya Osorio DO Work Phone: [facility] Comment on above: Chronic obstructive pulmonary disease, unspecified COPD type (HCC) (Primary Dx) Start: 01-24-2025 End: 01-24-2025 ambulatory ROSALBA AC Not Available Start: 01-16-2025 End: 01-16-2025 ambulatory AB [facility] Start: 12-10-2024 End: 12-10-2024 ambulatory Natividad Silva Facility:[facility] Start: 12-10-2024 Non-patient / Non-visit Dima Barahona MD -[facility] Work Phone: Start: 10-22-2024 End: 10-22-2024 ambulatory Gabriella Woodruff MD Facility:[facility] Start: 04-25-2024 End: 04-25-2024 ambulatory Anderson PULLIAM Facility:CD:[id number] Start: 03-20-2024 End: 03-20-2024 ambulatory Anderson PULLIAM Facility: [facility] Start: 03-20-2024 End: 03-20-2024 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 procedure [facility] PULLIAM [facility] Start: 02-10-2024 ambulatory Sabrina Bailey y:[facility] Start: 10-05-2022 End: 10-06-2022 ambulatory NARENDRANATH [...] Facility: [facility] Start: 05-08-2022 End: 05-08-2022 ambulatory 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 Facility:[facility] Start: 04-07-2022 End: 04-07-2022 ambulatory NATIVIDAD SILVA Facility:[facility] Start: 03-16-2022 End: 03-16-2022 ambulatory NATIVIDADLUCIO SILVA Facility:[facility] Start: 03-12-2022 End: 03-13-2022 ambulatory [...] Emergency department patient visit BRANDON RUSSELL [facility] Start: 12-11-2017 End: 12-11-2017 Emergency department patient visit ROBERT Mendoza XAVI Facility:[facility] Procedures Date Procedure Procedure Detail Performing Clinician Start: 04-25-2024 Colonoscopy Sabrina beebe Start: 05-08-2022 Plain X-ray of left wrist [employer]LL[employer] PROCESSING 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 Clarita Nena Work Phone: Start: 05-08-2022 X-ray of left ankle 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 Barrett Work Phone: Start: 04-01-2018 IP CONSULT TO ORAL SURGERY BRANDON RUSSELL Start: 03-14-2013 Colonoscopy Anderson NI LL Appendectomy Anderson NILL Blepharoplasty Anderson NILL Bone structure of ma ndible (body structure) Anderson NILL Dilation and curettage Dakota alice NILL Extraction of cataract Dakota alice NILL Ligation of fallopian tube Kyree segovia NILL Total abdominal hysterectomy with bilateral salpingo-oophorectomy [facility] VILLANUEVAL Plan of Treatment Date Care Activity Detail Author Start: 05-07-2025 End: 05-07-2025 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 procedure 05/07/2025 2:00 PM EST Office Visit [facility] [address] [place] [id number] Rosalba Ac DO [address] [place] [id number] [facility] Start: 01-24-2025 End: 01-24-2025 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 procedure 01/24/2025 10:15 AM EDT Consult [facility] [address] [place] [id number] Rosalba Ac DO [address] [place] [address] Arrived [facility] Comment on above: Arrived Start: 01-21-2025 Influenza vaccination Influenza Vacc ine (#1) [facility] Start: 1993 Screening for malign ant neoplasm of breast Mammogram [facility] Start: 1955 Screening for malign ant neoplasm of colon [facility] Immunizations Immunization Date Immunization Notes Care Provider Fa cili 06-05-2024 influenza virus vacc ine, unspecified formulation Rosalba Ac DO Work Phone: [facility] Payers Date Payer Category Payer Self-pay 2024 Medicare [id number] 2023 Unknown 2021 Medicare (Managed Care) SONNY ABBOTT [employer] [id number] 1959 Unknown [id number] 1953 Unknown [id number] 2.16.840.1.415491.3.579. 2.593 1953 Unknown [id number] 2.16.840.1.298122.3.579. 2.593 1953 Unknown [id number] 2.16.840.1.003035.3.579. 2.593 1953 Unknown [id number] 2.16.840.1.486421.3.579. 2.593 1953 Unknown [id number] 2.16.840.1.128074.3.579. 2.593 1953 Unknown [id number] 2.16.840.1.596609.3.579. 2.593 1953 Unknown [id number] 2.16.840.1.912092.3.579. 2.593 1953 Unknown [id number] 2.16.840.1.952743.3.579. 2.593 1953 Unknown [id number] 2.16.840.1.017485.3.579. 2.593 1953 Unknown [id number] 2.16.840.1.514951.3.579. 2.593 1953 Unknown [id number] 2.16.840.1.012938.3.579. 2.593 1953 Unknown [id number] 2.16.840.1.019009.3.579. 2.593 1953 Unknown [id number] 2.16.840.1.274399.3.579. 2.593 1953 Unknown [id number] 2.16.840.1.775902.3.579. 2.593 1953 Unknown [id number] 2.16.840.1.523663.3.579. 2.593 1953 Unknown [id number] 2.16.840.1.283776.3.579. 2.593 1953 Unknown [id number] 2.16.840.1.426071.3.579. 2.593 1953 Unknown [id number] 2.16.840.1.971998.3.579. 2.593 1953 Unknown [id number] 2.16.840.1.941389.3.579. 2.593 1953 Unknown [id number] 2.16.840.1.946388.3.579. 2.593 1953 Unknown [id number] 2.16.840.1.823320.3.579. 2.593 1953 Unknown [id number] 2.16.840.1.542596.3.579. 2.593 1953 Unknown [id number] 2.16.840.1.478029.3.579. 2.196 1953 Unknown [id number] 2.16.840.1.231284.3.579. 2.1259 1953 Unknown [id number] 2.16.840.1.577116.3.579. 2.727 1953 Unknown [id number] 2.16.840.1.172558.3.579. 2.727 1953 Unknown [id number] 2.16.840.1.093849.3.579. 2.727 Medicare [id number] Medicare Medicare [id number] Unknown MMO [id number] Unknown [place] BC/BS [id number] Unknown [id number] 2.16.840.1.612948.3.579. 2.531 Social History Date Type Detail Facility Tobacco smoking stat us NHIS Unknown if ever smoked [facility] Work Phone: Start: 1955 Sex Assigned At Female F [facility] Start: 03-20-2024 End: 01-31-2025 Tobacco smoking status Ex-smoker (finding) [facility] Tobacco smoking status Never [facility] Start: 01-20-2024 End: 01-24-2025 Sex Assigned At Female [facility] Start: 01-06-2024 End: 01-20-2024 Tobacco smoking status NHIS Never smoked tobacco (finding) [facility] Sex Female (finding) [facility] Start: 01-20-2024 Tobacco use and exposure Smoke less tobacco non-user [facility] Start: 01-20-2024 End: 01-24-2025 Alcoholic beverage intake Lifetime non-drinker (finding) [facility] Start: 01-20-2024 End: 01-24-2025 History of Social function [facility] Start: 1955 Sex assigned at Not on file [facility] Sexual Orientation [facility] Functional Status Date Assessment Result Facility 03-20-2024 Functional Status N/A [facility] Clinical Notes 11-05-2021 to 01-29-2025 Telephone Encounter [...] pick them up this afternoon. She understood. [facility] 01-29-2025 Miscellaneous Notes Mary called stating that the Breztri is 122.00 wanted to know if she could get some more samples. I let her know we will get them together for her she can pick them up this afternoon. She understood. documented in this encounter [facility] 01-24-2025 History of Presen t illness Narrative Images from the original note were not included. Mary Vick presents today for evaluation in regards to COPD and shortness of breath. She was referred by her primary care provider. She had been seen by Pulmonary in the past in [place]. She is here to establish care. She [...] in the past by the her previous minister. However she states that this did not [...] mg in the evening. Take before meals. Svzobpd-Pziuzlbkvbk-Oacnhusftk (Breztri Aerosphere) 160-9-4.8 MCG/ACT aerosol Inhale 2 [...] Rosalba Ac DO documented in this encounter [facility] 01-16-2025 Note [facility] Note Chief Complaint: Patient here [...] Abnormal ECG, COPD (chronic obstructive pulmonary disease) ([facility]/HCC), HTN (hypertension), and Sleep apnea. Surgical History [...] mouth in the morning., Disp: , Rfl: kqdkpoaujd-qsvmvzebljgiq-oemz 50-325-40 mg tablet, Take 1 tablet by [...] atrial fibrillation Episodes (more content not included)... [facility] 03-20-2024 Note General Surgery Offi ce/Clinic [...] tab(s), Or (more content not included)... [facility] Comment on above: Result [...] at a time, as she works at [employer]. Current medications include Percocet 5/325 daily, diclofenac [...] time unless otherwise indicated. [facility] 03-09-2022 Note CONSULTATION CONSULTATION DATE: 03/09/2022 CHIEF [...] CC: Natividad Silva CNP [facility] 01-28-2022 Note CONSULTATION CONSULTATION DATE: 01/30/2022 HISTORY [...] is functional in lateral rotation and flexion/extension. Roas's point is non-tender bilaterally with negative FABERs [...] authenticated by: RAUDEL ESTRADA Date: 2021-11-12 07:50 [facility] 11-05-2021 Note CONSULTATION PROCEDURE DATE:11/05/2021 PREOPERATIVE DIAGNOSIS: [...] will be followed up in the office. [facility] Signed and Approved by: JOEL [...] time, was working half a day at [employer] and since then has increased to full [...] in three months' time unless otherwise indicated. [facility] Signed and Approved by: JOEL RAMON . 11/18/2021 16:24:00 [facility] Evaluation + Plan note No data available for this section [facility] Evaluation + Plan note Future Appointments Appointment Date:02/11/2025 09:15:00 AM Scheduled Provider: Location:[facility] Appointment Type:Surgery FT [facility] Evaluation note No assessment inform ation available [facility] Work Phone: Evaluation note Diagnosis Chronic obstructive pulmonary disease, unspecified COPD type (HCC)- Primary [facility] No data available for this section [facility] Progress note No data available for this section [facility] Reason for referral (narrative)[facility] Work Phone: Summary Purpose Family History Relationship [...] section and content) DATE CREATED AUTHOR 12/21/2017 [facility] DATE CREATED AUTHOR AUTHOR'S ORGANIZ ATION 05/01/2018 [facility] DATE CREATED AUTHOR AUTHOR'S ORGANIZ ATION 10/06/2022 [facility] DATE CREATED AUTHOR AUTHOR'S ORGANIZ ATION 10/29/2024 [facility] DATE CREATED AUTHOR AUTHOR'S ORGANIZ ATION 12/26/2024 [facility] DATE CREATED AUTHOR AUTHOR'S ORGANIZ ATION 01/18/2025 [facility] DATE CREATED AUTHOR AUTHOR'S ORGANIZ ATION 01/26/2025 [facility] EPIC DATE CREATED AUTHOR AUTHOR'S ORGANIZ ATION 01/27/2025 [facility] Care Teams (unrecognized sec tion and content) Personnel Name: Luisito Townsend MD Address: [address] [place] [address] Telecom: Team Status: Inactive Member Role Status Dates SILVA Johnson Attending Provider Active Team Status: Active Member Role Status Dates THOMAS Anderson Primary Care Provider Active Team Status: Active Member Role Status Dates THOMAS Anderson Primary Care Provider Active Start: December 10, 2024 Natividad Silva NP-Ren Other Provider Active S tart: December 10, 2024 Dima Barahona MD Attending Provider Active Start: December 10, 2024 Logistics Administrator Relationship Specialty Start Date End Date Natividad Silva MD [address] [place], [place] [id number] Referring Physician Family Medicine 01/24/25 Logistics Administrator Relationship Specialty Start Date End Date Natividad Silva MD [address] [place] [id number] Referring Physician Family Medicine 01/24/25 Goals (unrecognized section and content) Goals may be documented in a n alternate section No data available for this sectionGoals may be documented in an alternate section No data available for this [...] BASED ON THE PRIMARY CLINICAL RECORDS. [facility]. provides no warranty or guarantee of the accuracy or completeness of information in this document.
[2025-02-01 11:45] LABS: Anion Gap 14.8; Blood Urea Nitrogen 11.0 mg/dL (7.0-18.0); Calcium 8.2 mg/dL (8.5-10.1); Carbon Dioxide 22.3 mmol/L (21.0-32.0); Chloride 108 mmol/L (98-107); Estimated GFR (African America >60 (>=60 mL/min/1.73m^2); Estimated GFR (Non-African Ame 59 (>=60 mL/min/1.73m^2); Glucose 118 mg/dL (74-106); Potassium 4.1 mmol/L (3.5-5.1); Sodium 141 mmol/L (136-145)
== END 2025-02-01 11:17 | disposition home or self-care (01) ==
LOC: LAB 11:18
PROVIDERS: PCP Nurse Practitioner Family; Visit Provider Internal Medicine Interventional Cardiology
DX: E87.6 Hypokalemia (principal)
CPT/HCPCS: 36415; 80048

== ENCOUNTER 2025-02-04 09:36 | Outpatient (OUT) | payer MEDICARE, SELFPAY ==
--- OUTSIDE RECORDS SUMMARY | 2025-02-04 09:41 | XMS_ITS | CCD ---
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 Dr. Deborah Mohan TROPONIN, HIGH SENSITIVITYon 09-17-2022 HSTROP 5.0 pg/mL Normal 4.0-51.3 [facility] Comment on above: Result Comment: CUT- OFF POINTS HAVE BEEN ESTABLISHED BASED ON THE FOURTH UNIVERSAL DEFINITIONS OF MYOCARDIAL INFARCTION. THE UPPER REFERENCE LIMIT (URL) OF TROPONIN, DEFINED THE 99TH PERCENTILE OF cTnI DISTRIBUTION IN A REFERENCE POPULATION, HAS BEEN CONFIRMED THE DECISION THRESHOLD FOR [place] DIAGNOSIS. Performed By: #### B AUTOMOBILE CLUB TRAVEL COUNSELOR, HSTROPN, CMP #### [facility] [address] [address] [address] Deborah Mohan US FREDA DOP LEG [...] RAFIQ RON Date: 2022-09-17 11:54 Normal [facility] XR CHEST 1 Von 09-17-2022 XR CHEST [...] ROBERT CONDON Date: 2022-09-17 11:36 Normal [facility] SYMPTOMATIC COVID-19 ANTIGEN on 08-24-2022 EUA Statement SEE BELOW Normal The [facility] Comment on above: Result Comment: This test [...] sooner. Performed By: #### A NARF #### [facility] [address] [address] [address] Deborah Mohan SARS-CoV-2 (COVID-19) RNA ERIC+probe Ql (Unsp spec) Positive Abnormal NEGATIVE [facility] Comment on above: Performed By: #### A NARF #### [facility] [address] [address] [address] Deborah Mohan FREE THYROXINE INDEX T7on FTI 3.30 Normal 1.30-4.50 [facility] Comment on above: Performed By: #### B AUTOMO[employer]LE [employer]UB TRAVEL COUNSELOR, HSTROPN, CMP #### [facility] [address] [address] [address] Deborah Mohan T3U 34.0 % Normal 30.0-39.0 [facility] Comment on above: Performed By: #### B AUTOMOBILE CLUB TRAVEL COUNSELOR, HSTROPN, CMP #### [facility] [address] [address] [address] Deborah Mohan T4 [Mass/Vol] 9.70 ug/dL Normal 4.80-13.90 [facility] Comment on above: Performed By: #### B AUTOMOBILE CLUB TRAVEL COUNSELOR, HSTROPN, CMP #### [facility] [address] [place] [address] Dr. Deborah Mohan IRONon 07-06-2022 Iron [Mass/Vol] 14.0 ug/dL Critically low 50.0-170.0 [facility] Comment on above: Performed By: #### I MIHAI ####[facility] [address] [address]Dr. Deborah Mohan TSHon 07-06-2022 TSH 1.463 uIU/mL Normal 0.358-3.740 [facility] Comment on above: Performed By: #### A NARF #### [facility] [address] [place] [address] Dr. Deborah Mohan CBC AUTO DIFFon 04-07-2022 BASO # 0.1 103/ul Normal 0.0-0.1 [facility] Comment on above: Performed By: #### A NARF #### [facility] [address] [place] [address] Dr. Deborah Mohan Basophils/100 WBC (Bld) 0.8 % Normal 0.2-2.0 [facility] Comment on above: Performed By: #### A NARF #### [facility] [address] [place] [address] Dr. Deborah Mohan EO # 0.3 103/ul Normal 0.0-0.7 [facility] Comment on above: Performed By: #### A NARF #### [facility] [address] [place] [address] Dr. Deborah Mohan Eosinophils/100 WBC (Bld) 2.6 % Normal 0.9-7.0 [facility] Comment on above: Performed By: #### A NARF #### [facility] [address] [place] [address] Dr. Deborah Mohan Erythrocyte distribution width (RBC) [Ratio] 19.9 % Critically high 11.0-15.0 [facility] Comment on above: Performed By: #### A NARF #### [facility] [address] [place] [address] Dr. Deborah Mohan Hematocrit (Bld) [Volume fraction] 28.8 % Critically low 36.0-48.0 [facility] Comment on above: Performed By: #### A NARF #### [facility] [address] [place] [address] Dr. Deborah Mohan Hemoglobin (Bld) [Mass/Vol] 8.9 g/dL Critically low 12.0-16.0 [facility] Comment on above: Performed By: #### A NARF #### [facility] [address] [place] [address] Dr. Deborah Mohan IG # 0.07 10e3/ul Critically high 0.00-0.03 [facility] Comment on above: Performed By: #### A NARF #### [facility] [address] [place] [address] Dr. Deborah Mohan IG % 0.7 % Critically high 0.0-0.5 [facility] Comment on above: Performed By: #### A NARF #### [facility] [address] [place] [address] Dr. Deborah Mohan LYMPH # 1.9 103/ul Normal 1.2-3.8 [facility] Comment on above: Performed By: #### A NARF #### [facility] [address] [place] [address] Dr. Deborah Mohan Lymphocytes/100 WBC (Bld) 18.2 % Critically low 20.5-60.0 [facility] Comment on above: Performed By: #### A NARF #### [facility] [address] [place] [address] Dr. Deborah Mohan MANUAL DIFF REQ NO Normal [facility] Comment on above: Performed By: #### A NARF #### [facility] [address] [place] [address] Dr. Deborah Mohan MCH (RBC) [Entitic mass] 25.3 pg Critically low 26.7-34.0 [facility] Comment on above: Performed By: #### A NARF #### [facility] [address] [place] [address] Dr. Deborah Mohan MCHC (RBC) [Mass/Vol] 30.9 g/dL Normal 29.9-35.2 [facility] Comment on above: Performed By: #### A NARF #### [facility] [address] [place] [address] Dr. Deborah Mohan MCV (RBC) [Entitic vol] 81.8 fL Normal 81.0-99.0 [facility] Comment on above: Performed By: #### A NARF #### [facility] [address] [place] [address] Dr. Deborah Mohan MONO # 0.7 103/ul Normal 0.3-0.8 [facility] Comment on above: Performed By: #### A NARF #### [facility] [address] [place] [address] Dr. Deborah Mohan Monocytes/100 WBC (Bld) 7.1 % Normal 1.7-12.0 [facility] Comment on above: Performed By: #### A NARF #### [facility] [address] [address] [address] Deborah Mohan NEUT # 7.4 103/ul Critically high 1.4-6.5 [facility] Comment on above: Performed By: #### A NARF #### [facility] [address] [address] [address] Deborah Mohan Neutrophils/100 WBC (Bld) 70.6 % Normal 43.0-75.0 [facility] Comment on above: Performed By: #### A NARF #### [facility] [address] [place] [address] Dr. Deborah Mohan Platelet mean volume (Bld) [Entitic vol] 9.7 fL Normal 9.5-13.5 [facility] Comment on above: Performed By: #### A NARF #### [facility] [address] [place] [address] Dr. Deborah Mohan PLT 398 103/ul Normal 150-450 [facility] Comment on above: Performed By: #### A NARF #### [facility] [address] [place] [address] Dr. Deborah Mohan RBC 3.52 106/ul Critically low 4.20-5.40 [facility] Comment on above: Performed By: #### A NARF #### [facility] [address] [place] [address] Dr. Deborah Mohan WBC 10.5 103/ul Normal 4.0-11.0 [facility] Comment on above: Performed By: #### A NARF #### [facility] [address] [place] [address] Dr. Deborah Mohan PROF 14(COMP METB)on 022 Albumin [Mass/Vol] 3.2 g/dL Critically low 3.4-5.0 [facility] Comment on above: Performed By: #### H STROPN, CMP ####[facility] [address] [address]Dr. Deborah Mohan Albumin/Globulin [Mass ratio] 0.9 {ratio} Normal [facility] Comment on above: Performed By: #### Robert BARRIOS, CMP ####[facility] [address] [address]Dr. Deborah Mohan ALP [Catalytic activity/Vol] 89 U/L Normal 46-116 [facility] Comment on above: Performed By: #### Robert BARRIOS, CMP ####[facility] [address] [address]Dr. Deborah Mohan ALT [Catalytic activity/Vol] 17 U/L Normal 14-59 [facility] Comment on above: Performed By: #### Robert BARRIOS, CMP ####[facility] [address] [address]Dr. Deborah Mohan Anion gap [Moles/Vol] 11.2 mmol/L Normal [facility] Comment on above: Performed By: #### Robert BARRIOS, CMP ####[facility] [address] [place], [place] [address]Dr. Deborah Mohan AST [Catalytic activity/Vol] 14 U/L Critically low 15-37 [facility] Comment on above: Performed By: #### Robert BARRIOS, CMP ####[facility] [address] [address]Dr. Deborah Mohan Bilirubin [Mass/Vol] 0.2 mg/dL Normal 0.2-1.0 [facility] Comment on above: Performed By: #### Robert BARRIOS, CMP ####[facility] [address] [address]Dr. Deborah Mohan Calcium [Mass/Vol] 9.1 mg/dL Normal 8.5-10.1 [facility] Comment on above: Performed By: #### Robert BARRIOS, CMP ####[facility] [address] [address]Dr. Deborah Marques Chloride [Moles/Vol] 104 mmol/L Normal 98-107 [facility] Comment on above: Performed By: #### H STROPN, CMP ####[facility] [address] [id number]. Deborah Mohan CO2 [Moles/Vol] 24.8 mmol/L Normal 21.0-32.0 [facility] Comment on above: Performed By: #### H STROPN, CMP ####[facility] [address] [id number]. Deborah Mohan Creatinine [Mass/Vol] 1.21 mg/dL Critically high 0.55-1.02 [facility] Comment on above: Performed By: #### H STROPN, CMP ####[facility] [address] [address]Dr. Deborah Mohan EGFR-AF NAMIBIAN 54 mL/min/1.73m2 Critically low >=60 [facility] Comment on above: Performed By: #### H STROPN, CMP ####[facility] [address] [address]Dr. Deborah Mohan EGFR-NON AF NAMIBIAN 44 mL/min/1.73m2 Critically low >=60 [facility] Comment on above: Performed By: #### H STROPN, CMP ####[facility] [address] [address]Dr. Deborah Mohan Globulin (S) [Mass/Vol] 3.7 g/dL Normal [facility] Comment on above: Performed By: #### H STROPN, CMP ####[facility] [address] [address]Dr. Deborah Mohan Glucose [Mass/Vol] 118 mg/dL Critically high 74-106 [facility] Comment on above: Performed By: #### H STROPN, CMP ####[facility] [address] [id number]. Deborah Mohan Potassium [Moles/Vol] 4.0 mmol/L Normal 3.5-5.1 [facility] Comment on above: Performed By: #### H STROPN, CMP ####[facility] [address] [address]Dr. Deborah Mohan Protein [Mass/Vol] 6.9 g/dL Normal 6.4-8.2 [facility] Comment on above: Performed By: #### H DENIS, CMP ####[facility] [address] [address]Dr. Deborah Mohan Sodium [Moles/Vol] 136 mmol/L Normal 136-145 [facility] Comment on above: Performed By: #### H DENIS, CMP ####[facility] [address] [id number]. Deborah Mohan Urea nitrogen [Mass/Vol] 28.0 mg/dL Critically high 7.0-18.0 [facility] Comment on above: Performed By: #### H DENIS, CMP ####[facility] [address] [address]Dr. Deborah Mohan Urea nitrogen/Creatinine [Mass ratio] 23.1 mg/mg Normal [facility] Comment on above: Performed By: #### H DENIS, CMP ####[facility] [address] [address]Dr. Deborah Mohan TROPONIN, HIGH SENSITIVITYon 04-07-2022 HSTROP 5.9 pg/mL Normal 4.0-51.3 [facility] Comment on above: Result Comment: CUT- OFF POINTS HAVE BEEN ESTABLISHED BASED ON THE FOURTH UNIVERSAL DEFINITIONS OF MYOCARDIAL INFARCTION. THE UPPER REFERENCE LIMIT (URL) OF TROPONIN, DEFINED THE 99TH PERCENTILE OF cTnI DISTRIBUTION IN A REFERENCE POPULATION, HAS BEEN CONFIRMED THE DECISION THRESHOLD FOR TN DIAGNOSIS. Performed By: #### H DENIS, CMP ####[facility] [address] [id number]. Deborah Mohan XR CHEST 1 Von 04-07-2022 [...] Normal [facility] HEMOGLOBINon 03-12-2022 Hemoglobin (Bld) [Mass/Vol] 9.2 g/dL Critically low 12.0-16.0 [facility] Comment on above: Performed By: #### A NARF #### [facility] [address] [address] [address] Deborah Mohan ANTI NEUTROPHIL CYTOPLASMIC AB (ANCA) PRon 03-09-2022 Anti-MPO Antibodies <0.2 Normal 0.0-0.9 [facility] Comment on above: Result Comment: Perf ormed at: BN Performed By: #### B AUTOMOBILE CLUB TRAVEL COUNSELOR, HSTROPN, CMP #### [facility] [address] [place] [address] Dr. Deborah Mohan Anti-PR3 Antibodies <0.2 Normal 0.0-0.9 [facility] Comment on above: Result Comment: Perf ormed at: BN Performed By: #### B AUTOMOBILE CLUB TRAVEL COUNSELOR, HSTROPN, CMP #### [facility] [address] [place] [address] Dr. Deborah Mohan Atypical pANCA 1:160 Critically high Neg:<1:20 [facility] Comment on above: Result Comment: The atypical pANCA pattern has been observed in a significant percentage of patients with ulcerative colitis, primary sclerosing cholangitis and autoimmune hepatitis. Performed at: CB Performed By: #### B AUTOMOBILE [employer]UB TRAVEL COUNSELOR, HSTROPN, CMP #### [facility] [address] [address] [address] Deborah Mohan Cytoplasmic (C-ANCA) <1:20 Normal Neg:<1:20 [facility] Comment on above: Result Comment: Perf ormed at: CB Performed By: #### B AUTOMOBILE [employer]UB TRAVEL COUNSELOR, HSTROPN, CMP #### [facility] [address] [place] [address] Dr. Deborah Mohan Perinuclear (P-ANCA) <1:20 Normal Neg:<1:20 [facility] Comment on above: Result Comment: The presence [...] Performed at: CB Performed By: #### B AUTOMO[employer]LE [employer]UB TRAVEL COUNSELOR, HSTROPN, CMP #### [facility] [address] [place], [place] [address] Dr. Deborah Mohan ANTISCLERODERMA ABon 022 Antiscleroderma-70 Antibodies <0.2 Normal 0.0-0.9 [facility] Comment on above: Performed By: #### A NARF #### [facility] [address] [place], [place] [address] CHEST WO CONon [...] Antibodies IgG/IgA 6 units Normal 0-19 [facility] Comment on above: Result Comment: Nega tive <20 Weak positive 20 - 39 Moderate positive 40 - 59 Strong positive >59 Performed By: #### B AUTOMO[employer]LE [employer]UB TRAVEL COUNSELOR, HSTROPN, CMP #### [facility] [address] [place], [place] [address] Dr. Deborah Mohan IGG SUBCLASSES (1-4) AND TOT Kade 03-09-2022 IgG, Subclass 1 448 mg/dL Normal 248-810 [facility] Comment on above: Performed By: #### B AUTOMOBILE CLUB TRAVEL COUNSELOR, HSTROPN, CMP #### [facility] [address] [place], [place] [address] Dr. Deborah Mohan IgG, Subclass 2 253 mg/dL Normal 130-555 [facility] Comment on above: Performed By: #### B AUTOMOBILE CLUB TRAVEL COUNSELOR, HSTROPN, CMP #### [facility] [address] [place], [place] [address] Dr. Deborah Mohan IgG, Subclass 3 95 mg/dL Normal 15-102 [facility] Comment on above: Performed By: #### B AUTOMOBILE CLUB TRAVEL COUNSELOR, HSTROPN, CMP #### [facility] [id number] Deborah Mohan IgG, Subclass 4 10 mg/dL Normal 2-96 [facility] Comment on above: Performed By: #### B AUTOMOBILE CLUB TRAVEL COUNSELOR, HSTROPN, CMP #### [facility] [address] [address] [address] Deborah Mohan Immunoglobulin G, Qn, Serum 658 mg/dL Normal 586-1602 [facility] Comment on above: Performed By: #### B AUTOMOBILE CLUB TRAVEL COUNSELOR, HSTROPN, CMP #### [facility] [id number] Deborah Mohan IMMUNOGLOBULIN E, TOTALon Immunoglobulin E, Total 5 IU/mL Critically low 6-495 [facility] Comment on above: Performed By: #### I GETOT ####[facility] [address] [place], [place] [address]Dr. Deborah Mohan MICHELL EIA W/REFLEX 5 BIOMARKER Son 03-08-2022 MICHELL Direct Negative Normal Negative [facility] Comment on above: Performed By: #### A NARF #### [facility] [id number] Deborah Mohan ANGIOTENSION-CONVERTING ENZY ME (FRANCESCO)on 03-08-2022 FRANCESCO 32 U/L Normal 14-82 [facility] Comment on above: Performed By: #### A NGIOC ####[facility] [address] [address]Dr. Deborah Mohan ANTIGLOMERULAR BASEMENT MEMB ROMMEL ABSon 03-08-2022 Anti-GBM Antibodies <0.2 Normal 0.0-0.9 [facility] Comment on above: Performed By: #### A GBM #### [facility] [address] [address] [address] Deborah Mohan IMMUNOGLOBULIN IGA QUANTITIA VEon 03-06-2022 Immunoglobulin A, Qn, Serum 229 mg/dL Normal 87-352 [facility] Comment on above: Performed By: #### A NARF #### [facility] [address] [address] [address] Deborah Mohan IMMUNOGLOBULIN IGM QUANTITAT IVEon 03-06-2022 Immunoglobulin M, Qn, Serum 83 mg/dL Normal 26-217 [facility] Comment on above: Performed By: #### B AUTOMOBILE [employer]UB TRAVEL COUNSELOR, HSTROPN, CMP #### [facility] [address] [address] [address] Deborah Mohan RHEUMATOID FACTORon 03-06-20 RA Latex Turbid. 10.9 IU/mL Normal <14.0 [facility] Comment on above: Performed By: #### R F ####[facility] [address] [place] [address]Dr. Deborah Mohan CREATININEon 03-05-2022 Creatinine [Mass/Vol] 1.38 mg/dL Critically high 0.55-1.02 [facility] Comment on above: Performed By: #### C MELVINA ####[facility] [address] [place] [address]Dr. Deborah Mohan EGFR-AF NAMIBIAN 46 mL/min/1.73m2 Critically low >=60 [facility] Comment on above: Performed By: #### C MELVINA ####[facility] [address] [address]Dr. Deborah Mohan EGFR-NON AF NAMIBIAN 38 mL/min/1.73m2 Critically low >=60 [facility] Comment on above: Performed By: #### C MELVINA ####[facility] [address] [place], [place] [address]Dr. Deborah Mohan SED RATE WESTERGRENon 2021 SED RATE 92 mm/hr Critically high <=30 [facility] Comment on above: Performed By: #### B AUTOMOBILE CLUB TRAVEL COUNSELOR, HSTROPN, CMP #### [facility] [address] [place], [place] [address] Dr. Deborah Mohan XR DEXA BONE DENSITYon [...] CONDON Date: 2022-03-05 16:56 Normal [facility] XR CHEST 1 Von 03-01-2022 XR [...] NOVAK Date: 2022-02-28 22:27 Normal [facility] XR KNEE LUANA 4V or >on [...] RAUDEL ESTRADA Date: 2022-01-29 11:09 Normal [facility] CBC AUTO DIFFon 11-29-2021 BASO # 0.1 103/ul Normal 0.0-0.1 [facility] Comment on above: Performed By: #### C BC ####[facility] [address] [place] [address]Dr. Deborah Mohan Basophils/100 WBC (Bld) 0.8 % Normal 0.2-2.0 [facility] Comment on above: Performed By: #### C BC ####[facility] [address] [place], [place] [address]Dr. Deborah Mohan EO # 0.3 103/ul Normal 0.0-0.7 [facility] Comment on above: Performed By: #### C BC ####[facility] [address] [place], [place] [address]Dr. Deborah Mohan Eosinophils/100 WBC (Bld) 2.2 % Normal 0.9-7.0 [facility] Comment on above: Performed By: #### C BC ####[facility] [address] [place], [place] [address]Dr. Deborah Mohan Erythrocyte distribution width (RBC) [Ratio] 21.2 % Critically high 11.0-15.0 [facility] Comment on above: Performed By: #### C BC ####[facility] [address] [place], [place] [address]Dr. Deborah Mohan Hematocrit (Bld) [Volume fraction] 33.2 % Critically low 36.0-48.0 [facility] Comment on above: Performed By: #### C BC ####[facility] [address] [place], [place] [address]Dr. Deborah Mohan Hemoglobin (Bld) [Mass/Vol] 10.3 g/dL Critically low 12.0-16.0 [facility] Comment on above: Performed By: #### C BC ####[facility] [address] [place] [id number]. Deborah Mohan IG # 0.11 10e3/ul Critically high 0.00-0.03 [facility] Comment on above: Performed By: #### C BC ####[facility] [address] [place] [id number]. Deborah Mohan IG % 0.9 % Critically high 0.0-0.5 [facility] Comment on above: Performed By: #### C BC ####[facility] [address] [place] [address]Dr. Deborah Mohan LYMPH # 2.2 103/ul Normal 1.2-3.8 [facility] Comment on above: Performed By: #### C BC ####[facility] [address] [place] [address]Dr. Deborah Mohan Lymphocytes/100 WBC (Bld) 18.5 % Critically low 20.5-60.0 [facility] Comment on above: Performed By: #### C BC ####[facility] [address] [place] [address]Dr. Deborah Mohan MANUAL DIFF REQ NO Normal [facility] Comment on above: Performed By: #### C BC ####[facility] [address] [place] [address]Dr. Deborah Mohan MCH (RBC) [Entitic mass] 26.3 pg Critically low 26.7-34.0 [facility] Comment on above: Performed By: #### C BC ####[facility] [address] [place] [address]Dr. Deborah Mohan MCHC (RBC) [Mass/Vol] 31.0 g/dL Normal 29.9-35.2 [facility] Comment on above: Performed By: #### C BC ####[facility] [address] [place] [id number]. Deborah Mohan MCV (RBC) [Entitic vol] 84.9 fL Normal 81.0-99.0 [facility] Comment on above: Performed By: #### C BC ####[facility] [address] [place] [id number]. Deborah Mohan MONO # 0.6 103/ul Normal 0.3-0.8 [facility] Comment on above: Performed By: #### C BC ####[facility] [address] [place] [id number]. Deborah Mohan Monocytes/100 WBC (Bld) 5.3 % Normal 1.7-12.0 [facility] Comment on above: Performed By: #### C BC ####[facility] [address] [place] [id number]. Deborah Mohan NEUT # 8.4 103/ul Critically high 1.4-6.5 [facility] Comment on above: Performed By: #### C BC ####[facility] [address] [place] [id number]. Deborah Mohan Neutrophils/100 WBC (Bld) 72.3 % Normal 43.0-75.0 [facility] Comment on above: Performed By: #### C BC ####[facility] [address]ons[address] [place] [id number]. Deborah Mohan Platelet mean volume (Bld) [Entitic vol] 10.1 fL Normal 9.5-13.5 [facility] Comment on above: Performed By: #### C BC ####[facility] [address] [place] [id number]. Deborah Mohan PLT 351 103/ul Normal 150-450 [facility] Comment on above: Performed By: #### C BC ####[facility] [address] [place] [id number]. Deborah Mohan RBC 3.91 106/ul Critically low 4.20-5.40 [facility] Comment on above: Performed By: #### C BC ####[facility] [address] [place] [id number]. Deborah Mohan WBC 11.6 103/ul Critically high 4.0-11.0 [facility] Comment on above: Performed By: #### C BC ####[facility] [address] [place], [place] [address]Dn. Deborah Mohan CTA CHEST WO W CONon [...] 2. Bilateral peripheral fibrosis and/or scarring with gxlr-db-nvcfsgfy groundglass densities. The groundglass densities are slightly decreased compared to the prior scan. 3. Old calcified granulomas in the chest and abdomen. 4. Large hiatal hernia. 5. Moderate diffuse osteopenia. Electronically authenticated by: BERNARDO DENNY Date: 2021-11-29 20:31 Normal [facility] D-DIMERon 11-29-2021 D-DIMER 1.14 mg/L FEU Critically high <=0.59 [facility] Comment on above: Performed By: #### A NARF #### [facility] [address] [place] [address] Dr. Deobrah Mohan D-DIMER COMMENTS SEE BELOW Normal [facility] Comment on above: Result Comment: [...] hospitalization. Performed By: #### A NARF #### [facility] [address] [place] [address] Dr. Deborah Mohan PROF CHEM 8 (BAS METB)on Anion gap [Moles/Vol] 11.7 mmol/L Normal [facility] Comment on above: Performed By: #### B MP, HSTROPN #### [facility] [address] [place] [address] Dr. Deborah Mohan Calcium [Mass/Vol] 8.7 mg/dL Normal 8.5-10.1 [facility] Comment on above: Performed By: #### B MP, HSTROPN #### [facility] [address] [place] [address] Dr. Deborah Mohan Chloride [Moles/Vol] 107 mmol/L Normal 98-107 [facility] Comment on above: Performed By: #### B MP, HSTROPN #### [facility] [address] [place] [address] Dr. Deborah Mohan CO2 [Moles/Vol] 25.3 mmol/L Normal 21.0-32.0 [facility] Comment on above: Performed By: #### B MP, HSTROPN #### [facility] [address] [place] [address] Dr. Deborah Mohan Creatinine [Mass/Vol] 0.98 mg/dL Normal 0.55-1.02 [facility] Comment on above: Performed By: #### B KYLEE, HSTROPN #### [facility] [address] [place] [address] Dr. Deborah Mohan EGFR-AF NAMIBIAN >60 Normal >=60 [facility] Comment on above: Performed By: #### B KYLEE, HSTROPN #### [facility] [address] [place] [address] [address] Deborah Mohan EGFR-NON AF NAMIBIAN 56 mL/min/1.73m2 Critically low >=60 [facility] Comment on above: Performed By: #### B KYLEE, HSTROPN #### [facility] [address] [place] [address] Dr. Deborah Mohan Glucose [Mass/Vol] 105 mg/dL Normal 74-106 [facility] Comment on above: Performed By: #### B KYLEE, HSTROPN #### [facility] [address] [place] [address] Dr. Deborah Mohan Potassium [Moles/Vol] 4.0 mmol/L Normal 3.5-5.1 [facility] Comment on above: Performed By: #### B KYLEE, HSTROPN #### [facility] [address] [place] [address] Dr. Deborah Mohan Sodium [Moles/Vol] 140 mmol/L Normal 136-145 [facility] Comment on above: Performed By: #### B KYLEE, HSTROPN #### [facility] [address] [place] [address] Dr. Deborah Mohan Urea nitrogen [Mass/Vol] 21.0 mg/dL Critically high 7.0-18.0 [facility] Comment on above: Performed By: #### B KYLEE, HSTROPN #### [facility] [address] [place] [address] Dr. Deborah Mohan Urea nitrogen/Creatinine [Mass ratio] 21.4 mg/mg Normal [facility] Comment on above: Performed By: #### B KYLEE, HSTROPN #### [facility] [address] [place], [place] [address] Dr. Deborah Mohan TROPONIN, HIGH SENSITIVITYon 11-29-2021 HSTROP 4.5 pg/mL Normal 4.0-51.3 [facility] Comment on above: Result Comment: CUT- OFF POINTS HAVE BEEN ESTABLISHED BASED ON THE FOURTH UNIVERSAL DEFINITIONS OF MYOCARDIAL INFARCTION. THE UPPER REFERENCE LIMIT (URL) OF TROPONIN, DEFINED THE 99TH PERCENTILE OF cTnI DISTRIBUTION IN A REFERENCE POPULATION, HAS BEEN CONFIRMED THE DECISION THRESHOLD FOR TN DIAGNOSIS. Performed By: #### H STROPN ####[facility] [address] [place], [place] [address]CkDr. Deborah Mohan HSTROP 6.0 pg/mL Normal 4.0-51.3 [facility] Comment on above: Result Comment: CUT- OFF POINTS HAVE BEEN ESTABLISHED BASED ON THE FOURTH UNIVERSAL DEFINITIONS OF MYOCARDIAL INFARCTION. THE UPPER REFERENCE LIMIT (URL) OF TROPONIN, DEFINED THE 99TH PERCENTILE OF cTnI DISTRIBUTION IN A REFERENCE POPULATION, HAS BEEN CONFIRMED THE DECISION THRESHOLD FOR TN DIAGNOSIS. Performed By: #### B MP, HSTROPN #### [facility] [address] [place], [place] [address] Dr. Deborah Mohan XR CHEST 1 Von [...] KANDY BARRY Date: 2021-11-29 19:20 Normal [facility] XR LSPINE W_OBLS AND FLEX_EX Ton 11-12-2021 [...] ESTRADA Date: 2021-11-12 07:56 Normal [facility] CALCIUMon 11-11-2021 Calcium [Mass/Vol] 9.0 mg/dL Normal 8.5-10.1 [facility] Comment on above: Performed By: #### A NARF #### [facility] [address] [place] [address] Dr. Deborah Mohan CREATININEon 11-11-2021 Creatinine [Mass/Vol] 1.47 mg/dL Critically high 0.55-1.02 [facility] Comment on above: Performed By: #### A NARF #### [facility] [address] [place] [address] Dr. Deborah Mohan EGFR-AF NAMIBIAN 43 mL/min/1.73m2 Critically low >=60 [facility] Comment on above: Performed By: #### A NARF #### [facility] [address] [place] [address] Dr. Deborah Mohan EGFR-NON AF NAMIBIAN 35 mL/min/1.73m2 Critically low >=60 [facility] Comment on above: Performed By: #### A NARF #### [facility] [address] [place] [address] Dr. Deborah Mohan Vital Signs Date Time Vital Sign Value Performing Clinician Facility 01-24-2025 10:20040 Body height 157.5 cm Rosalba Shobutt Babies DO Work Phone: [facility] 01-24-2025 10:20040 Body mass index (BMI) [Ratio] 34.39 kg/m2 Rosalba Shobutt Babies DO Work Phone: [facility] 01-24-2025 10:20040 Body weight 85.28 kg Rosalba Osorio DO Work Phone: [facility] 01-24-2025 10:20-0400 Diastolic blood pressure 98 mm[Hg] Rosalba Osorio DO Work Phone: [facility] 01-24-2025 10:20-0400 Heart rate 95 /min Rosalba Osorio DO Work Phone: [facility] 01-24-2025 10:20-0400 SaO2% (BldA) [Mass fraction] 98 % Rosalba Osorio DO Work Phone: [facility] 01-24-2025 10:20-0400 Systolic blood pressure 160 mm[Hg] Rosalba Osorio DO Work Phone: [facility] 03-20-2024 14:57-0400 Blood Pressure Location Anderson NILL [facility] 03-20-2024 14:57-0400 Diastolic blood pressure 82 mm[Hg] Anderson NILL [facility] 03-20-2024 14:57-0400 Heart rate 70 /min Anderson NILL [facility] 03-20-2024 14:57-0400 Respiratory rate 16 /min Anderson NILL [facility] 03-20-2024 14:57-0400 Systolic blood pressure 126 mm[Hg] Anderson NILL [facility] Encounters Encounter Date Encounter Type Care Provider Facility Start: 01-31-2025 End: 01-31-2025 ambulatory Sabrina Wilkinson Facility:[facility] Start: 01-31-2025 End: 01-31-2025 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 procedure Sabrina Wilkinson [facility] Start: 01-29-2025 End: 01-29-2025 Telephone [facility] Start: 01-25-2025 ambulatory Sabrina Wilkinson Facilit y:[facility] Start: 01-24-2025 End: 01-24-2025 Bamboo flowsheet Rosalba Danya Osorio DO Work Phone: [facility] Start: 01-24-2025 End: 01-24-2025 Bamboo flowsheet Rosalba Danya Osorio DO Work Phone: [facility] Start: 01-24-2025 End: 01-24-2025 Office outpatient new 45 minutes Rosalba Danya Osorio DO Work Phone: [facility] Comment on above: Chronic obstructive pulmonary disease, unspecified COPD type (HCC) (Primary Dx) Start: 01-24-2025 End: 01-24-2025 ambulatory ROSALBA AC Not Available Start: 01-16-2025 End: 01-16-2025 ambulatory AB [facility] Start: 12-10-2024 End: 12-10-2024 ambulatory Natividad Silva Facility:[facility] Start: 12-10-2024 Non-patient / Non-visit Dima Barahona MD -[facility] Work Phone: Start: 10-22-2024 End: 10-22-2024 ambulatory Gabriella Woodruff MD Facility:[facility] Start: 04-25-2024 End: 04-25-2024 ambulatory Anderson PARSON Facility:CD:[id number] Start: 03-20-2024 End: 03-20-2024 ambulatory Luisito Townsend Facility: [facility] Start: 03-20-2024 End: 03-20-2024 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 procedure Anderson PARSON [facility] [place] Start: 02-10-2024 ambulatory Sabrina Bailey y: [place] Start: 10-05-2022 End: 10-06-2022 ambulatory NARENDRANATH LAKSHMIPATHY . Facility:[facility] Start: 09-17-2022 End: 09-17-[address] INGRID ESPINAL Facility:[facility] Start: 08-26-2022 ambulatory NARENDRANATH LAKSHMIPATHY . Facility:[facility] Start: 08-24-2022 End: 08-24-2022 ambulatory NATIVIDAD SARA Facility:[facility] Start: 07-08-2022 End: 07-09-2022 ambulatory JOEL RAMON . Facility:[facility] Start: 07-06-2022 End: 07-07-2022 ambulatory NATIVIDAD SARA Facility:[facility] Start: 06-24-2022 End: 06-25-2022 ambulatory JOEL RAMON . Facility:[facility] Start: 05-21-2022 ambulatory NATIVIDAD SILVA Facility: [facility] Start: 05-08-2022 End: 05-08-2022 ambulatory [employer] Clarita Barrett Work Phone: [facility] Work Phone: Start: 05-08-2022 End: 05-08-2022 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 procedure [employer] Clarita Barrett Work Phone: [facility] Start: 04-08-2022 End: 04-09-2022 ambulatory JOEL RAMON . Facility:[facility] Start: 04-07-2022 End: 04-07-2022 ambulatory NATIVIDAD SILVA Facility:[facility] Start: 03-16-2022 End: 03-16-2022 ambulatory NATIVIDADLUCIO SILVA Facility:[facility] Start: 03-12-2022 End: 03-13-2022 ambulatory NATIVIDAD SARA Facility:[facility] Start: 03-09-2022 End: 03-10-2022 ambulatory NATIVIDAD SARA Facility:[facility] Start: 03-05-2022 End: 03-06-2022 ambulatory NATIVIDAD SARA Facility:[facility] Start: 02-28-2022 End: 03-01-2022 ambulatory NATIVIDAD SARA Facility:[facility] Start: 01-29-2022 End: 01-30-2022 ambulatory JOEL RAMON . Facility:[facility] Start: 01-28-2022 End: 01-29-2022 ambulatory JOEL RAMON . Facility:[facility] Start: 11-29-2021 End: 11-30-2021 ambulatory NATIVIDAD SILVA Facility:[facility] Start: 11-11-2021 End: 11-13-[address] LUISITO TOWNSEND . Facility:[facility] Start: 11-05-2021 End: 11-06-2021 ambulatory JOEL RAMON . Facility:[facility] Start: 04-01-2018 End: 04-01-2018 Emergency department patient visit BRANDON RUSSELL [facility] Start: 12-11-2017 End: 12-11-2017 Emergency department patient visit ROBERT Mendoza XAVI Facility:[facility] Procedures Date Procedure Procedure Detail Performing Clinician Start: 04-25-2024 Colonoscopy Joeamaozzie beebe Start: 05-08-2022 Plain X-ray of left wrist [employer] Clarita Barrett Work Phone: Start: 05-08-2022 X-ray of left ankle [employer] Clarita Barrett Work Phone: Start: 04-01-2018 IP CONSULT TO ORAL SURGERY BRANDON RUSSELL Start: 03-14-2013 Colonoscopy Anderson NI LL Appendectomy Anderson NILL Blepharoplasty Anderson NILL Bone structure of ma ndible (body structure) Anderson NILL Dilation and curettage Dakota alice NILL Extraction of cataract Dakota el NILL Ligation of fallopian tube Kyree segovia NILL Total abdominal hysterectomy with bilateral salpingo-oophorectomy Anderson NILL Plan of Treatment Date Care Activity Detail Author Start: 05-07-2025 End: 05-07-2025 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 procedure 05/07/2025 2:00 PM EST Office Visit [facility] [address] [place] [address] Rosalba Ac, DO [address] [place] [address] [facility] Start: 01-24-2025 End: 01-24-2025 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 procedure 01/24/2025 10:15 AM EDT Consult [facility] [address] [place] [address] Rosalba Ac DO [address] [place] [address] Arrived [facility] Comment on above: [...] Date Payer Category Payer Self-pay 2024 Medicare [id number] 2023 Unknown 2021 Medicare (Managed Care) [employer] [id number] 1959 Unknown [id number] 1953 Unknown [id number] 2.16.840.1.471184.3.579. 2.593 1953 Unknown [id number] 2.16.840.1.861220.3.579. 2.593 1953 Unknown [id number] 2.16.840.1.378084.3.579. 2.593 1953 Unknown [id number] 2.16.840.1.542449.3.579. 2.593 1953 Unknown [id number] 2.16.840.1.157974.3.579. 2.593 1953 Unknown [id number] 2.16.840.1.586926.3.579. 2.593 1953 Unknown [id number] 2.16.840.1.010388.3.579. 2.593 1953 Unknown [id number] 2.16.840.1.931608.3.579. 2.593 1953 Unknown [id number] 2.16.840.1.631212.3.579. 2.593 1953 Unknown [id number] 2.16.840.1.527120.3.579. 2.593 1953 Unknown [id number] 2.16.840.1.875375.3.579. 2.593 1953 Unknown [id number] 2.16.840.1.925393.3.579. 2.593 1953 Unknown [id number] 2.16.840.1.672304.3.579. 2.593 1953 Unknown [id number] 2.16.840.1.604883.3.579. 2.593 1953 Unknown [id number] 2.16.840.1.121139.3.579. 2.593 1953 Unknown [id number] 2.16.840.1.410466.3.579. 2.593 1953 Unknown [id number] 2.16.840.1.381383.3.579. 2.593 1953 Unknown [id number] 2.16.840.1.828831.3.579. 2.593 1953 Unknown [id number] 2.16.840.1.012983.3.579. 2.593 1953 Unknown [id number] 2.16.840.1.535090.3.579. 2.593 1953 Unknown [id number] 2.16.840.1.453368.3.579. 2.593 1953 Unknown [id number] 2.16.840.1.922058.3.579. 2.593 1953 Unknown [id number] 2.16.840.1.112476.3.579. 2.196 1953 Unknown [id number] 2.16.840.1.308202.3.579. 2.1259 1953 Unknown [id number] 2.16.840.1.600594.3.579. 2.727 1953 Unknown [id number] 2.16.840.1.958421.3.579. 2.727 1953 Unknown [id number] 2.16.840.1.819606.3.579. 2.727 Medicare [id number] Medicare Medicare [id number] Unknown MMO [id number] Unknown [place] BC/BS [id number] Unknown [id number] 2.16.840.1.448098.3.579. 2.531 Social History Date Type Detail Facility Tobacco smoking stat us NHIS Unknown if ever smoked [facility] Work Phone: Start: 1955 Sex Assigned At Female F [facility] Start: 03-20-2024 End: 01-31-2025 Tobacco smoking status Ex-smoker (finding) [facility] Tobacco smoking status Never [facility] Start: 01-20-2024 End: 01-24-2025 Sex Assigned At Female [facility] Start: 01-06-2024 End: 01-20-2024 Tobacco smoking status NHIS Never smoked tobacco (finding) [facility] Sex Female (finding) [facility] Start: 01-20-2024 Tobacco use and exposure Smoke less tobacco non-user [facility] Start: 01-20-2024 End: 01-24-2025 Alcoholic beverage intake Lifetime non-drinker (finding) [facility] Start: 01-20-2024 End: 01-24-2025 History of Social function [facility] Start: 1955 Sex assigned at Not on file [facility] Sexual Orientation [facility] Functional Status Date Assessment Result Facility 03-20-2024 Functional Status N/A [facility] Clinical Notes 11-05-2021 to 01-29-2025 Telephone Encounter [...] pick them up this afternoon. She understood. [facility] 01-29-2025 Miscellaneous Notes Mary called stating that the Breztri is 122.00 wanted to know if she could get some more samples. I let her know we will get them together for her she can pick them up this afternoon. She understood. documented in this encounter [facility] 01-24-2025 History of Presen t illness Narrative Images from the original note were not included. Mary Vick presents today for evaluation in regards to COPD and shortness of breath. She was referred by her primary care provider. She had been seen by Pulmonary in the past in [place]. She is here to establish care. 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 However she states that this did not [...] mg in the evening. Take before meals. Sdxuqhj-Puzrhytovas-Lohrwpnpwq (Breztri Aerosphere) 160-9-4.8 MCG/ACT aerosol Inhale 2 [...] Rosalba Ac DO documented in this encounter [facility] 01-16-2025 Note [facility] Cardiology Clinic Note Chief Complaint: Patient [...] Abnormal ECG, COPD (chronic obstructive pulmonary disease) ([facility]), HTN (hypertension), and Sleep apnea. Surgical History [...] mouth in the morning., Disp: , Rfl: lnblrrhfiw-webolpdobvqcb-dqbx 50-325-40 mg tablet, Take 1 tablet by [...] atrial fibrillation Episodes (more content not included)... [facility] 03-20-2024 Note General Surgery Offi ce/Clinic Note [...] 1 tab(s), Or (more content not included)... [facility] Comment on above: Result Comment: Elec tronically [...] in the clinic in three months. [facility] 06-24-2022 Note CONSULTATION CONSULTATION DATE: 06/24/2022 HISTORY [...] at a time, as she works at [email or web address]. Current medications include Percocet 5/325 daily, diclofenac [...] pending approval for her knee injections. [facility] 04-08-2022 Note CONSULTATION CONSULTATION DATE: 04/08/2022 HISTORY [...] three months' time unless otherwise indicated. [facility] 03-09-2022 Note CONSULTATION CONSULTATION DATE: 03/09/2022 CHIEF [...] to proceed. CC: Natividad Silva CNP [facility] 01-28-2022 Note CONSULTATION CONSULTATION DATE: 01/30/2022 HISTORY [...] and re-evaluation of her bursa injection. [facility] 01-28-2022 Note CONSULTATION PROCEDURE DATE: 01/30/2022 PREOPERATIVE [...] be followed up in the clinic. [facility] 11-12-2021 Note PROCEDURE: XR HIPS B IL [...] authenticated by: RAUDEL ESTRADA Date: 2021-11-12 07:50 [facility] 11-05-2021 Note CONSULTATION PROCEDURE DATE:11/05/2021 PREOPERATIVE [...] by: JOEL RAMON . 11/18/2021 16:24:00 [facility] 11-05-2021 Note CONSULTATION CONSULTATION DATE: 11/05/2021 HISTORY [...] time, was working half a day at [email or web address] and since then has increased to full [...] by: JOEL RAMON . 11/18/2021 16:24:00 [facility] Evaluation + Plan note No data available for this section [facility] Evaluation + Plan note Future Appointments Appointment Date:02/11/2025 09:15:00 AM Scheduled Provider: Location:[facility] [place] [facility] Appointment Type:Surgery FT [facility] Evaluation note No assessment inform ation available [facility] Work Phone: Evaluation note Diagnosis Chronic obstructive pulmonary disease, unspecified COPD type (HCC)- Primary [facility] No data available for this section [facility] Progress note No data available for this section [facility] Reason for referral (narrative)[facility] Summary Purpose Family [...] DATE CREATED AUTHOR 12/21/2017 [facility] DATE CREATED AUTHOR AUTHOR'S ORGANIZ ATION 05/01/[address] [facility] DATE CREATED AUTHOR AUTHOR'S ORGANIZ ATION 10/06/2022 [facility] DATE CREATED AUTHOR AUTHOR'S ORGANIZ ATION 10/29/2024 [facility] DATE CREATED AUTHOR AUTHOR'S ORGANIZ ATION 12/26/2024 [facility] DATE CREATED AUTHOR AUTHOR'S ORGANIZ ATION 01/26/2025 [facility] EPIC DATE CREATED AUTHOR AUTHOR'S ORGANIZ ATION 02/01/2025 [facility] DATE CREATED AUTHOR AUTHOR'S ORGANIZ ATION 02/03/2025 [facility] Care Teams (unrecognized sec tion and [...] Attending Provider Active Start: December 10, 2024 Jail Officer Relationship Specialty Start Date End Date Natividad Silva MD [address] [place] [id number] Referring Physician Family Medicine 01/24/25 Jail Officer Relationship Specialty Start Date End Date Natividad Silva MD [address] [place] [phone] Referring Physician Family Medicine 01/24/25 Goals (unrecognized [...] PRIMARY CLINICAL RECORDS. [facility]. provides no warranty or guarantee of the accuracy or completeness of information in this document.
[2025-02-04 10:24] LABS: Anion Gap 11.5; Blood Urea Nitrogen 15.0 mg/dL (7.0-18.0); Calcium 8.9 mg/dL (8.5-10.1); Carbon Dioxide 27.6 mmol/L (21.0-32.0); Chloride 104 mmol/L (98-107); Estimated GFR (African America >60 (>=60 mL/min/1.73m^2); Estimated GFR (Non-African Ame 59 (>=60 mL/min/1.73m^2); Glucose 91 mg/dL (74-106); Potassium 4.1 mmol/L (3.5-5.1); Sodium 139 mmol/L (136-145)
== END 2025-02-04 09:37 | disposition home or self-care (01) ==
LOC: LAB 09:37
PROVIDERS: PCP Nurse Practitioner Family; Visit Provider Internal Medicine Interventional Cardiology
DX: E87.6 Hypokalemia (principal)
CPT/HCPCS: 80048

== ENCOUNTER 2025-03-15 08:36 | Outpatient (OUT) | payer MEDICARE, SELFPAY ==
--- OUTSIDE RECORDS SUMMARY | 2025-03-15 08:42 | XMS_ITS | CCD ---
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 cap Take 50 mcg by mouth daily before breakfast. lisinopril (ZESTRIL) 40 mg tablet Take 40 mg by mouth once daily. OMEPRAZOLE, BULK, MISC POTASSIUM CHLORIDE 2.5 MEQ TAB ropinirole HCl (ROPINIROLE PO) Take by mouth. No current facility-administered medications for this visit. REVIEW OF SYSTEMS General: No fevers, chills, night sweats, fatigue, or change in appetite. HEENT: No recent changes in vision, hearing, taste, or smell. Hematologic/Lymphatic: No lymphadenopathy. No history of easy bruising or bleeding. Pulmonary: No cough, wheeze, or shortness of breath. Cardiac: No heart palpitation or cardiac chest pain. Abdomen: No abdominal pain, nausea, vomiting, diarrhea, constipation, or hematochezia. : No frequency, dysuria, or hematuria. Musculoskeletal: No new muscle or joint aches/pains. Neurologic: No numbness or tingling. Dermatologic: No rashes or lesions. BP 126/93 Pulse 108 Temp 36.6 ?C (97.8 ?F) (Temporal) Ht 154.9 cm (5' 1 ) Wt 81.2 kg (179 lb) BMI 33.82 kg/m? Physical Exam Constitutional: no distress, alert Head: Normocephalic and atraumatic. Eyes: EOM are normal. Neck: Normal range of motion. Neck supple. Cardiovascular: RRR Pulmonary/Chest: Non-labored respirations on RA. Clear to auscultation bilaterally Abdominal: Soft, non-distended, and non-tender Musculoskeletal: Normal range of motion. Neurological: He is alert. GCS score is 15. Skin: Skin is warm and dry. Psychiatric: Affect and judgment normal. Relevant Hernia Findings - N/A LABS: No results found for: HBA1C IMAGING - Reviewed wi (more content not included)...NormalVan Wert County HospitalHISTORY PHYSICALon [id number] PHYSICALHNO ID: [id number] Author: TRAVIS THACKER MD Service: ? Author Type: Physician Type: H&P Filed: 02/21/2025 12:40 Note Text: [facility] - HISTORY AND PHYSICAL Chief Complaint: GERD, Shortness of Breath, DAI, early satiety HPI: Mary Vick is a 69 year old female who presents with reflux, shortness of breath, dyspnea on exertion. She has been seen by cardiology and pulmonology regarding these symptoms. Has undergone TTE that shows LA dilation, normal left heart function. Has undergone PFTs that show isolated diffusion defect with mild restriction. Has undergone CT scan that showed a large hiatal hernia with the majority of her stomach in her chest. She has been on PPI therapy for years. Her main symptoms include shortness of breath, fatigue, and dyspnea on exertion. Denies significant amount of pain. Also with early satiety - states that she can only eat a few bites prior to becoming full. She has undergone recent endoscopy but the report is not in our system. No further workup for reflux or her hiatal hernia. She is a former smoker. Has a history of CONNIE, intolerant of NIPPV. COPD on trelegy, CKD, had history of VT/bradycardia on event monitor. Relevant previous operations include: N/A No history of Psychiatric Disorders or Opioid Use Independent No employment None No Significant Comorbidities N/A No past medical history on file. No past surgical history on file. SOCIAL HISTORY[1] Additional social history not relevant to the patient's HPI No family history on file. Additional family history not relevant to the patient's HPI ALLERGIES Allergen Reactions Sumatriptan Other: See Comments Tachycardia fainting Tachycardia fainting Current Outpatient Medications Medication Sig Dispense Refill furosemide (LASIX) 20 mg tablet Take 20 mg by mouth two times a day. ALBUTEROL INHALATION Inhale as instructed. hhyunwoebn-bjekncxy-kwercqllkn (BREZTRI AEROSPHERE) 160-9-4.8 mcg/actuation HFA aerosol inhaler Inhale 2 puffs as instructed two times a day. dapagliflozin propanediol (FARXIGA) 10 mg tablet Take by mouth daily with breakfast. amoxicillin-clavulanate potassium (AUGMENTIN) 875-125 mg per tablet Take 1 tablet by mouth two times a day. phenazopyridine (PYRIDIUM) 200 mg tablet Take 200 mg by mouth three times a day as needed. ARIPiprazole (ABILIFY) 30 mg tablet Take 30 mg by mouth once daily. busPIRone (BUSPAR) 10 mg tablet Take 10 mg by mouth three times a day. diclofenac-miSOPROStol (ARTHROTEC) 50-200 mg-mcg per tablet Take 1 tablet by mouth two times a day. FLUoxetine (PROZAC) 20 mg capsule Take 20 mg by mouth once daily. levothyroxine 50 mcg cap Take 50 mcg by mouth daily before breakfast. lisinopril (ZESTRIL) 40 mg tablet Take 40 mg by mouth once daily. OMEPRAZOLE, BULK, MISC POTASSIUM CHLORIDE 2.5 MEQ TAB ropinirole HCl (ROPINIROLE PO) Take by mouth. No current facility-administered medications for this visit. REVIEW OF SYSTEMS General: No fevers, chills, night sweats, fatigue, or change in appetite. HEENT: No recent changes in vision, hearing, taste, or smell. Hematologic/Lymphatic: No lymphadenopathy. No history of easy bruising or bleeding. Pulmonary: No cough, wheeze, or shortness of breath. Cardiac: No heart palpitation or cardiac chest pain. Abdomen: No abdominal pain, nausea, vomiting, diarrhea, constipation, or hematochezia. : No frequency, dysuria, or hematuria. Musculoskeletal: No new muscle or joint aches/pains. Neurologic: No numbness or tingling. Dermatologic: No rashes or lesions. BP 126/93 Pulse 108 Temp 36.6 ?C (97.8 ?F) (Temporal) Ht 154.9 cm (5' 1 ) Wt 81.2 kg (179 lb) BMI 33.82 kg/m? Physical Exam Constitutional: no distress, alert Head: Normocephalic and atraumatic. Eyes: EOM are normal. Neck: Normal range of motion. Neck supple. Cardiovascular: RRR Pulmonary/Chest: Non-labored respirations on RA. Clear to auscultation bilaterally Abdominal: Soft, non-distended, and non-tender Musculoskeletal: Normal range of motion. Neurological: He is alert. GCS score is 15. Skin: Skin is warm and dry. Psychiatric: Affect and judgment normal. Relevant Hernia Findings - N/A LABS: No results found for: HBA1C IMAGING - Reviewed with staff CT - large hiatal hernia with majority of stomach in the thoracic compartment Assessment: Mary Vick is a 69 year old female who presents with large hiatal hernia. She has symptoms of early satiety, shortness of breath, dyspnea on exertion. Has longstanding reflux symptoms. Has had significant pulmonary/cardiac workup. She would like to undergo repair. We will need to see the report of her endoscopy that she had a couple weeks prior as well as have her glassware finisher perform a preoperative risk stratification. Otherwise she is a candidate for procedure. We discussed that while her early satiety should imp (more content not included)...NormalHol[facility] Center – Jacksonrgical Pathology Reporton [id number] Pathology ReportWayne [place] [address]- Surgical Pathology Report Collected Date/Time: 02/11/2025 09:40 EDT Pathologist: Warner Brush MD Received Date/Time: 02/11/2025 12:37 EDT Jaja GRANT, Negrito Wilkinson MD, Negrito Carr Surgical Pathology Report - 02/15/2025 12:53 EDT - Auth (Verified) Final Diagnosis A: STOMACH, BIOPSY: ARCHITECTURALLY NORMAL GASTRIC GLANDULAR MUCOSA - MUCOSAL ACUTE VASCULAR CONGESTION PRESENT - SPECIAL IHC STAIN FOR H. pylori: NEGATIVE B: ESOPHAGUS, BIOPSY: ARCHITECTURALLY NORMAL SQUAMOUS MUCOSA - NO SIGNIFICANT INFLAMMATORY OR OTHER ABNORMAL CELLULAR INFILTRATES (Electronic Signature) Warner Brush MD 02/15/2025 12:53 Clinical Information Hiatal hernia Pre-Op Diagnosis: Hiatal hernia Procedure: EGD Post-Op Diagnosis: 1. Large hiatal hernia 2. J-shaped stomach 3. Gastropathy Specimen(s) Received A. Gastric biopsy B. Esophageal biopsy Gross Description A: Received in formalin labeled with patient name, number, and gastric biopsy are two fragments of wong/pink tissue measuring 0.1 and 0.6 cm. Specimen is entirely submitted in one cassette. B: Received in formalin labeled with patient name, number, and esophageal biopsy are multiple fragments of wong/pink tissue ranging from less than 0.1 cm up to 0.3 cm in greatest dimension. Specimen is entirely submitted in one cassette. (DC) DC:MCA Microscopic Description The use of one or more reagents in the above tests is regulated as an analyte specific reagent (ASR). The test or tests are ordered following initial H&E microscopic examination. The performance characteristics were determined by the [facility] Surgical Pathology. They have not been cleared or approved by the US Food and Drug Administration. The FDA has determined that such clearance or approval is not necessary. These tests are used for clinical purposes. They should not be regarded as investigational or for research. Appropriate positive and negative controls are performed and are acceptable. This report was transcribed using voice recognition technology and might contain unintended computerized shearer screen measurer and trimmer errors. Microscopic examination performed unless gross only specified. Quality was accessed and acceptable.[facility]UM[facility] Barnesville HospitalComment on above:Performed By: #### [id number] #### [facility] [address] [place] [address]Oekb OR Intraoperative Recordon [id number] OR Intraoperative RecordMain OR Intraoperative Record IntraOp Document Type FT Summary Primary Physician: Negrito Wilkinson MD Finalized Date/Time: 02/12/25 10:44:07 Pt. Name: TITI VICKRobert Adorno D.O.B./Sex: 1955 Female Med Rec #: [id number] Physician: Negrito Wilkinson MD Financial #: [id number] Pt. Type: O Room/Bed: / Admit/Disch: 02/11/25 08:15:03 - 02/11/25 23:59:59 Institution: Case Times FT Entry 1 Patient Times In Room 02/11/25 09:24:00 Out Room 02/11/25 09:46:00 Procedure Times Start 02/11/25 09:29:00 Stop 02/11/25 09:42:00 Anesthesia Times Start 02/11/25 09:24:00 Stop 02/11/25 09:46:00 Last Modified By: Lorelei David RN 02/11/25 09:46:43 Case Attendance FT Entry 1 Entry 2 Entry 3 Case Attendee Louise REMY, Woo David RN, Marianna Vickers Role Performed MINK RANCHER Spa Therapist - Primary Scrub - Primary Time In 02/11/25 09:24:00 02/11/25 09:24:00 02/11/25 09:24:00 Time Out 02/11/25 09:46:00 02/11/25 09:46:00 02/11/25 09:46:00 Procedure EGD(.) EGD(.) EGD(.) Comments supervising Last Modified By: Frankie JARVIS, Lorelei David RN, Lorelei Murdock RN 02/11/25 09:46:44 02/11/25 09:46:44 02/11/25 09:46:44 Entry 4 Entry 5 Case Attendee aJja GRANT, Negrito Blackwell RN, Mary Grace Frias Role Performed Surgeon - Primary Staff - Other Time In 02/11/25 09:24:00 02/11/25 09:24:00 Time Out 02/11/25 09:46:00 02/11/25 09:46:00 Procedure EGD(.) EGD(.) Comments help in room Last Modified By: Lorelei David RN, RN, Angela 02/11/25 09:46:44 02/11/25 09:46:44 Perioperative Protocols FT Pre-Care Text: Implements protective measures prior to operative or invasive procedure, confirms identity before the operative or invasive procedure, verifies operative procedure, surgical site, and laterality Entry 1 Procedure(s) EGD(.) Patient Identity Birthday, ID Band Verified (select at Check, Patient least 2): Participation Consents / H and P Anesthesia Consent, Operative Site N/A Verified H&P, Surgery/Procedure Marking Verified Consent Surgical Site No Laterality Verified n/a Verified Procedure Verified Yes Correct Patient Yes Position Verified Availability Equipment, Medication Prep Dry n/a Verified (If Applicable) PreOp Antibiotic No Time Out Woo Gil CRNA, Given Participants Lorelei David RN, Miles, Kirstyn K, Jaja GRANT, Negrito Cruz Time Out Complete 02/11/25 09:26:00 Outcomes Met? Yes Last Modified By: Lorelei David RN 02/11/25 09:26:30 Post-Care Text: The patient is free from signs and symptoms of injury caused by extraneous objects Allergy Information FT Pre-Care Text: Verifies allergies Entry 1 Allergies Reviewed? Yes Allergies Reviewed Self/Patient With Outcomes Met? Yes Last Modified By: Lorelei David RN 02/11/25 09:29:17 Post-Care Text: The patient received appropriate medication(s) safely administered during the perioperative period Surgical Procedures FT Entry 1 Procedure Description Procedure EGD Modifiers . Surgeon Description EGD with esophageal and gastric biopsies Primary Procedure Yes Primary Surgeon Negrito Wilkinson MD Start 02/11/25 09:29:00 Stop 02/11/25 09:42:00 Anesthesia Type General Surgical Service Gastroenterology Wound Class 2 - Clean-Contaminated Last Modified By: Lorelei David RN 02/11/25 09:47:35 General Case Data FT Pre-Care Text: Classifies surgical wound, implements aseptic technique, initiates traffic control Entry 1 Case Information OR ENDO 1 FT Case Level Level 2 Wound Class 2 - Clean-Contaminated Specialty Gastroenterology ASA Class 3 Preop Diagnosis HIATIAL HERNIA Postop Same As Preop No Postop Diagnosis Large hiatal hernia, Outcomes Met? Yes gastropathy, j-shaped stomach Last Modified By: Lorelei David RN 02/11/25 09:46:01 Post-Care Text: The patient is free from signs and symptoms of infection Skin Assessment (Pre Procedure) FT Pre-Care Text: Implements protective measures to prevent skin/ tissue injury due to thermal or mechanical sources Evaluates for signs and symptoms of physical injury to skin and tissue Entry 1 Skin Integrity Intact, [place], Warm, & Skin Abnormality No Dry Outcomes Met? Yes Last Modified By: Lorelei David RN 02/11/25 09:29:36 Post-Care Text: The patient is free from signs and symptoms of injury caused by extraneous objects Patient Positioning FT Pre-Care Text: Identifies physical alterations that require additional precautions for procedure-specific positioning, verifies presence of prosthetics or corrective devices, positions the patient, evaluates the patient for signs and symptoms of injury as a result of positioning Entry 1 Procedure EGD(.) Body Position Lateral, right side up Feet Uncrossed? Yes Left Arm Position Resting at Side Right Arm Position Resting at Side Left Leg Position Extended Right Leg Position Extended Positioning Device Safety Strap, Pillow (more content not included)...[facility] HospitalDischarge Instructionson [id number] InstructionsDischarge Instructions NICANORTITI JOSEPHRobert Adorno :1955 Visit Date:02/11/2025 Inpatient Discharge Instructions Your Care Team Admitting Physician - Negrito Wilkinson MD Referring Physician - Negrito Wilkinson MD Reason for Your Visit HIATIAL HERNIA Tests Performed Pathology Tissue Exam -- Results Pending -- Please visit your patient portal for your results or contact your primary care physician. This Is Your Medications List aripiprazole (Abilify 30 mg oral tablet) busPIRone (busPIRone 10 mg Tab) dapagliflozin (Farxiga 10 mg oral tablet) diclofenac (diclofenac sodium 50 mg Oral EC Tab) fluoxetine (Prozac 20 mg Cap) levothyroxine (levothyroxine 50 mcg (0.05 mg) Tab) lisinopril (Zestril 40 mg Tab) methocarbamol (Robaxin-750 oral tablet) omeprazole (Prilosec OTC) potassium chloride (Klor-Con) ropinirole (Requip) Procedure History Esophagogastroduodenoscopy (02/11/2025), Colonoscopy (04/25/2024), Colonoscopy (03/14/2013), Appendectomy, Blepharoplasty, Cataract extraction, Dilation and curettage, Dilation and curettage, Mandible, ARIES BSO - Total abdominal hysterectomy and bilateral salpingo-oophorectomy, Tubal ligation. Discharge Vitals Temperature (Temporal Artery) 36.6 ???C Heart Rate (Monitored) 67 Respiratory Rate 18 Blood Pressure 116/68 Height 157 cm Weight 81.9 kg BMI 33.23 What to do next Instructions From Your Doctor No qualifying data available. New Follow Up Appointments after Discharge Follow Up with Jaja GRANT, DARRYL Fischer, [facility] When: Comments: Call for any problems. Call for followup appointment. Where: [facility] [address], [address] [place] [address]- [phone] Medications What How Much When Instructions Next Dose Unchanged aripiprazole (Abilify 30 mg oral tablet) 1 Tablets By Mouth Every day Unchanged busPIRone (busPIRone 10 mg Tab) By Mouth 2 times a day Unchanged dapagliflozin (Farxiga 10 mg oral tablet) By Mouth Every day Unchanged diclofenac (diclofenac sodium 50 mg Oral EC Tab) 1 Tablets By Mouth 2 times a day Unchanged fluoxetine (Prozac 20 mg Cap) 4 Capsules By Mouth Every day Unchanged levothyroxine (levothyroxine 50 mcg (0.05 mg) Tab) 1 Tablets By Mouth Every day Unchanged lisinopril (Zestril 40 mg Tab) By Mouth Every day Unchanged methocarbamol (Robaxin-750 oral tablet) By Mouth 3 times a day Unchanged omeprazole (Prilosec OTC) 20 Milligram By Mouth 2 times a day Unchanged potassium chloride (Klor-Con) By Mouth Every day Unchanged ropinirole (Requip) By Mouth Once a day (at bedtime) Test Results No qualifying data available. Allergies Imitrex (Patient reported problems) Problems Ongoing [...] Sleep apnea SVT (supraventricular tachycardia) Weight loss Education Materials Upper Endoscopy, Adult, Care After After the procedure, it is common to have a sore throat. It is also common to have: ??? Mild stomach pain or discomfort. ??? Bloating. ??? Nausea. Follow these instructions at home: The instructions below may help you care for yourself at home. Your health care provider may give you more instructions. If you have questions, ask your health care provider. ??? If you were given a sedative during the procedure, it can affect you for several hours. Do not drive or operate machinery until your health care provider says that it is safe. ??? If you will be going home right after the procedure, plan to have a responsible adult: ? Take you home from the hospital or clinic. You will not be allowed to drive. ? Care for you for the time you are told. ??? Follow instructions from your health care provider about what you may eat and drink. ??? Return to your normal activities as told by your health care provider. Ask your health care provider what activities are safe for you. ??? Take woqr-koi-eonzpxx and prescription medicines only as told by your health care provider. Contact a health care provider if you: ??? Have a sore throat that lasts longer than one day. ??? Have trouble swallowing. ??? Have a fever. Get help right away if you: ??? Vomit blood or your vomit looks like coffee grounds. ??? Have bloody, black, or tarry stools. ??? Have a very bad sore throat or you cannot swallow. ??? Have difficulty breathing or very bad pain in your chest or abdomen. These symptoms may be an emergency. Get help right away. Call 911. ??? Do not matilda (more content not included)...[facility] Comment on above:Result Comment: Electronically Signed By: Pasquale JARVIS, Denisse\.nigel\Date and Time Signed: 02/11/2510:21 EDTEGDon 02-11-2025 EsophagogastroduodenoscopyEGD Patient: MARY VICK Age: 69 years Sex: Female : 1955 Associated Diagnoses: None Author: Negrito Wilkinson MD Pre-Procedure Procedure Date 02/11/2025 09:45:00 . Procedure Type: Esophagogastroduodenoscopy with biopsy. Procedure provider Performed by Negrito Wilkinson MD. Current history and physical Documented on chart. Informed Consent After discussing the rationale, risks and benefits, and alternatives to this procedure, the patient provided signed consent for the procedure. Pre-procedure diagnosis: HH. Medications (Selected) Inpatient Medications Ordered Lactated Ringers IV Emerita 1000 mL 1,000 mL: 1,000 mL, IV, 100 mL/hr, Routine, Start date 02/11/25 8:58:00 EDT, 10 hour(s), Total volume (mL): 1,000, 81.9 kg, 1.89, m2 Sodium Chloride 0.9% IV Emerita 1000 mL 1,000 mL: 1,000 mL, IV, 20 mL/hr, Routine, Start date 02/11/25 6:36:00 EDT, 50 hour(s), Total volume (mL): 1,000, 81.9 kg, 1.89, m2 Documented Medications Documented Abilify 30 mg oral tablet: 30 mg = 1 tab(s), Oral, Daily, Refills(s) 0, Depression Farxiga 10 mg oral tablet: mg tab(s), Oral, Daily, Refills(s) 0, Blood glucose Klor-Con: Oral, Daily, Refills(s) 0, Prophylaxis Prilosec OTC: 20 mg, Oral, BID, Refills(s) 0, Control of stomach acid Prozac 20 mg Cap: 80 mg = 4 cap(s), Oral, Daily, Refills(s) 0, Anxiety Requip: Oral, Once a day (at bedtime), Refills(s) 0, Other (see comment) Robaxin-750 oral tablet: mg tab(s), Oral, TID, Refills(s) 0, Muscle pain Zestril 40 mg Tab: mg tab(s), Oral, Daily, Refills(s) 0, High blood pressure busPIRone 10 mg Tab: mg tab(s), Oral, BID, Refills(s) 0, Anxiety diclofenac sodium 50 mg Oral EC Tab: 50 mg = 1 tab(s), Oral, BID, Refills(s) 0, Pain levothyroxine 50 mcg (0.05 mg) Tab: 50 mcg = 1 tab(s), Oral, Daily, Refills(s) 0, Thyroid Anticoagulant/antiplatelet None. ASA Classification: Class III. . Monitoring: See anesthesia record. . Procedure The procedure was performed in the hospital. See anesthesia record for sedation given during procedure. The patient was positioned starting in the left lateral decubitus position and with safety measures. Endoscope type used was an adult- size, introduced orally, advanced to the 2nd portion of the duodenum. No difficulty was encountered during the procedure. Views were excellent. The patient tolerated the procedure well. Findings 1. Large hiatal hernia and scope was looping inside the hernia 2. J-shaped stomach. Erythema in the antrum, mild patchy. Otherwise normal stomach. Biopsies of thestomach were taken to rule out H. pylori. 3. Normal duodenum. Images Procedure images: Rec_hd_video__[id number].jpg Rec_hd_video__[id number].jpg Rec_hd_video__[id number].jpg Rec_hd_video__[id number].jpg Rec_hd_video__[id number].jpg Rec_hd_video__[id number].jpg Rec1_hd_video_2024__[id number].jpg Rec1_hd_video__[id number].jpg Rec1_hd_video__[id number].jpg Rec1_hd_video__[id number].jpg . Post-Procedure Complications: none. Estimated blood loss: minimal. Specimens: sent to pathology. Devices/ implants: none left in place. Impression and Plan large hiatal hernia J-shaped stomach Gastropathy Recommendations: -Resume previous diet -Resume home medications -Await pathology results, follow in GI clinic in 1-2 after dischargeWVUMedicine Barnesville HospitalComment on above:Other Comment: Missing Attachment - attachment storage system not supported [id number] Can be viewed in source system Missing Attachment - attachment storage system not supported [id number] Can be viewed in source systemMissing Attachment - attachment storage system not supported [id number] Can be viewed in source systemMissing Attachment - attachment storage system not supported [id number] Can be viewed in source systemMissing Attachment - attachment storage system not supported [id number] Can be viewed in source systemMissing Attachment - attachment storage system not supported [id number] Can be viewed in source systemMissing Attachment - attachment storage system not supported [id number] Can be viewed in source systemMissing Attachment - attachment storage system not supported [id number] Can be viewed in source system Missing Attachment - attachment storage system not supported [id number] Can be viewed in source systemMissing Attachment - attachment storage system not supported [id number] Can be viewed in source systemH&P Updateon 02-11-2025H&P UpdateH&P Update Patient: MARY VICK Age: 69 years Sex: Female : 1955 Associated Diagnoses: None Author: Jaja GRANT, Negrito Cruz Preoperative Information Chief compliant/Indication for procedure: Chief Complaint as above Review of Systems All systems reviewed, negative except as mentioned above Health Status Allergies: Allergic Reactions (Selected) Severity Not Documented Imitrex- Patient reported problems. Current medications: (Selected) Inpatient Medications Ordered Lactated Ringers IV Emerita 1000 mL 1,000 mL: 1,000 mL, IV, 100 mL/hr, Routine, Start date 02/11/25 8:58:00 EDT, 10 hour(s), Total volume (mL): 1,000, 81.9 kg, 1.89, m2 Sodium Chloride 0.9% IV Emerita 1000 mL 1,000 mL: 1,000 mL, IV, 20 mL/hr, Routine, Start date 02/11/25 6:36:00 EDT, 50 hour(s), Total volume (mL): 1,000, 81.9 kg, 1.89, m2 Documented Medications Documented Abilify 30 mg oral tablet: 30 mg = 1 tab(s), Oral, Daily, Refills(s) 0, Depression Farxiga 10 mg oral tablet: mg tab(s), Oral, Daily, Refills(s) 0, Blood glucose Klor-Con: Oral, Daily, Refills(s) 0, Prophylaxis Prilosec OTC: 20 mg, Oral, BID, Refills(s) 0, Control of stomach acid Prozac 20 mg Cap: 80 mg = 4 cap(s), Oral, Daily, Refills(s) 0, Anxiety Requip: Oral, Once a day (at bedtime), Refills(s) 0, Other (see comment) Robaxin-750 oral tablet: mg tab(s), Oral, TID, Refills(s) 0, Muscle pain Zestril 40 mg Tab: mg tab(s), Oral, Daily, Refills(s) 0, High blood pressure busPIRone 10 mg Tab: mg tab(s), Oral, BID, Refills(s) 0, Anxiety diclofenac sodium 50 mg Oral EC Tab: 50 mg = 1 tab(s), Oral, BID, Refills(s) 0, Pain levothyroxine 50 mcg (0.05 mg) Tab: 50 mcg = 1 tab(s), Oral, Daily, Refills(s) 0, Thyroid Problem list: All Problems Anxiety / SNOMED CT 28229224 / Confirmed Bipolar I disorder / SNOMED CT 3588203382 / Confirmed BMI 35.0-35.9,adult / SNOMED CT 368988002 / Confirmed Chronic obstructive pulmonary disease / SNOMED CT 801694903 / Confirmed Class 3 obesity / SNOMED CT 0552474642 / Confirmed Continuous opioid dependence / SNOMED CT 744191206 / Confirmed Diverticulosis / SNOMED CT 5616671909 / Confirmed Gastroesophageal reflux disease / SNOMED CT 428700835 / Confirmed Hearing loss / SNOMED CT 96476209 / Confirmed Hiatal hernia / SNOMED CT 351133895 / Confirmed Hypercholesterolemia / SNOMED CT 79552729 / Confirmed Hypertension / SNOMED CT 8335633891 / Confirmed Hypothyroidism / SNOMED CT 75297271 / Confirmed Lumbar radiculopathy / SNOMED CT 457518582 / Confirmed Migraine / SNOMED CT 00481338 / Confirmed Osteoporosis / SNOMED CT 502506622 / Confirmed Pulmonary hypertension / SNOMED CT 695880148 / Confirmed Restless leg syndrome / SNOMED CT 01124390 / Confirmed Screening for malignant neoplasm of colon / SNOMED CT 065074737 / Confirmed Sleep apnea / SNOMED CT 168634647 / Confirmed SVT (supraventricular tachycardia) / SNOMED CT 34958484 / Confirmed Weight loss / SNOMED CT 597795829 / Confirmed, Active Problems (22) Anxiety Bipolar I disorder BMI 35.0-35.9,adult Chronic obstructive pulmonary disease Class 3 obesity Continuous opioid dependence Diverticulosis Gastroesophageal reflux disease Hearing loss Hiatal hernia Hypercholesterolemia Hypertension Hypothyroidism Lumbar radiculopathy Migraine Osteoporosis Pulmonary hypertension Restless leg syndrome Screening for malignant neoplasm of colon Sleep apnea SVT (supraventricular tachycardia) Weight loss Histories Past Medical History: No active or resolved past medical history items have been selected or recorded. Family History: Primary malignant neoplasm of lung Mother Sister Procedure history: Colonoscopy (027316044) on 04/25/2024 at 68 Years. Colonoscopy (561625760) on 03/14/2013 at 57 Years. Tubal ligation (525329839). Appendectomy (256038055). Cataract extraction (14069786). Mandible (571526706). [facility] BSO - Total abdominal hysterectomy and bilateral salpingo-oophorectomy (6103696071). Blepharoplasty (114805604). Dilation and curettage (34943645). Dilation and curettage (65594725). Physical Examination Vital Signs (last 24 hrs) Last Charted Temp Temporal 36.5 DegC (FEB 11 08:27) Heart Rate Monitored 75 bpm (FEB 11 09:35) Resp Rate 19 br/min (FEB 11 08:27) SBP 166 mmHg (FEB 11 09:35) DBP 111 mmHg (FEB 11 09:35) Weight 81.9 kg (FEB 11 08:28) BMI 33.23 (FEB 11 08:28) General: in Nad Abdomen: Soft, NTND Impression and Plan Diagnosis: HH -EGDNEast [facility] HospitalComment on above:Result Comment: Electronically Signed By: Negrito Wilkinson MD\.br\Date and Time Signed: 02/11/2509:46 EDTMain OR PACU I Recordon [id number] OR PACU I RecordMain OR PACU I Record PACU Phase I Document Type FT Summary Primary Physician: Negrito Wilkinson MD Finalized Date/Time: 02/11/25 10:51:51 Pt. Name: NICANORMARY/Sex: 1955 Female Med Rec #: [id number] Physician: Negrito Wilkinson MD Financial #: [id number] Pt. Type: O Room/Bed: / Admit/Disch: 02/11/25 08:15:03 - Institution: Case Times PACU I FT Pre-Care Text: Identifies barriers to communication and implements measures to provide psychological support Develops individualized plan of care, and ensures continuity of care Maintains patient's dignity and privacy, and maintains patient confidentiality Identifies and reports philosophical, cultural, and spiritual beliefs and values Identifies individual values and wishes concerning care Implements aseptic technique, and administers prescribed antibiotic therapy and immunizing agents as ordered Evaluates postoperative tissue perfusion Implements thermoregulation measures, and monitors body temperature Evaluates postoperative respiratory status Evaluates postoperative cardiac status Evaluates postoperative neurological status Assesses pain control, collaborated in initiating patient-controlled analgesia and implements alternative methods of pain control Verifies allergies, administers prescribed medications and solutions, evaluates response to medications Entry 1 In PACU I 02/11/25 09:47:00 Discharge from PACU 02/11/25 10:35:00 I Outcomes Met? Yes Last Modified By: Denisse Giordano RN 02/11/25 10:51:43 Post-Care Text: The patient demonstrates knowledge of the expected response to the operative or invasive procedure The patient's care is consistent with the individualized perioperative plan of care The patient's rightto privacy is maintained The patient's value system, lifestyle, ethnicity, and culture are considered, respected, and incorporated into the perioperative plan of care The patient participates in decisions affecting his or her perioperative plan of care The patient is free from signs and symptoms of infection The patient has wound/tissue perfusion consistent with or improved from baseline levels established preoperatively The patient is at or returning to normothermia at the conclusion of the immediate postoperative period The patient's respiratory function is consistent with or improved from baseline levels established preoperativelyThe patient's cardiovascular status is consistent with or improved from baseline levels established preoperatively The patient's cardiovascular status is consistent with or improved from baseline levels established preoperatively The patient demonstrates and/or reports adequate pain control throughout the perioperative period The patient received appropriate medication(s), safely administered during the perioperativeperiod Acuity Level PACU I FT Entry 1 Start Time 02/11/25 09:47:00 Stop Time 02/11/25 10:35:00 Acuity Level Acuity Level I Last Modified By: Denisse Giordano RN 02/11/25 10:51:50 Finalized By: Denisse Giordano RN Document Signatures Signed By: Denisse Giordano RN 02/11/25 10:51[facility] Preoperative Recordon [id number] OR Preoperative RecordMain OR Preoperative Record Holding Area Document Type FT Summary Primary Physician: Negrito Wilkinson MD Finalized Date/Time: 02/11/25 08:28:47 Pt. Name: NICANORMARY/Sex: 1955 Female Med Rec #: [id number] Physician: Negrito Wilkinson MD Financial #: [id number] Pt. Type: O Room/Bed: / Admit/Disch: 02/11/25 08:15:03 - Institution: Case Times Holding FT Pre-Care Text: Verifies consent for planned procedure, identifies individual values and wishes concerning care, includes family members in perioperative teaching Secures patient's records' belongings, and valuables, maintains patient's dignity and privacy, and maintains patient confidentiality Entry 1 In Holding 02/11/25 08:24:00 Outcomes Met? Yes Last Modified By: Lorelei David RN 02/11/25 08:27:52 Post-Care Text: The patient participates in decisions affecting his or her perioperative plan of care The patient'sright to privacy is maintained Surgery Checklist FT Entry 1 Patient Birthday, ID Band Procedure History and Physical, Identification: Check, Patient Verification: Surgical Consent, With Participation Patient NPO after Midnight: Yes Date/Time: 02/11/25 00:00:00 Personal Items: Dentures Personal Items left wrist metal , Comment: upper dentures Limitations: none Complaints of Pain: No Pain Comment: denies Operative Site n/a Marking: Availability Equipment Verified: Does Patient Smoke No Patient states Yes Comment - Adult daughter- Marya postop adult Supervision supervision available Case Cancelled in No Holding Area see comments below for reason Last Modified By: Lorelei aDvid RN 02/11/25 08:28:44 Finalized By: Lorelei David RN Document Signatures Signed By: Lorelei David RN 02/11/25 08:28[facility]36on [id number] lab results from : MD Oumou Martinez [...] Tuesday and again on Tuesday. Orders sent. [facility] Ambulatory Visit SummaryAmbulatory Visit Summary MARY VICK :1955 Visit Date:01/31/2025 Ambulatory Visit Instructions Your Diagnosis Hiatal hernia BMI 35.0-35.9,adult Diverticulosis Gastroesophageal reflux disease Weight loss Your Care Team Attending Physician - Jaja GRANT, Negrito Cruz Primary Care Physician - Luisito Umana MD This Is Your Medications List Contact prescribing physician if questions or concerns aripiprazole (Abilify 30 mg oral tablet) busPIRone (busPIRone 10 mg Tab) dapagliflozin (Farxiga 10 mg oral tablet) diclofenac (diclofenac sodium 50 mg Oral EC Tab) fluoxetine (Prozac 20 mg Cap) fluticasone/umeclidinium/vilanterol (Trelegy Ellipta) levothyroxine (levothyroxine 50 mcg (0.05 mg) Tab) lisinopril (Zestril 40 mg Tab) methocarbamol (Robaxin-750 oral tablet) omeprazole (Prilosec OTC) ropinirole (Requip) Procedures Performed Colonoscopy (04/25/2024), Colonoscopy (03/14/2013), Appendectomy, Blepharoplasty, Cataract extraction, Dilation and curettage, Dilation and curettage, Mandible, [facility] BSO - Total abdominal hysterectomyand bilateral salpingo-oophorectomy, Tubal ligation. Discharge Vitals Heart Rate (Peripheral) 61 Respiratory Rate 18 Blood Pressure 143/93 Height 157 cm Height 62 in Weight 81.9 kg Weight 180.558 lb BMI 33.23 Medications What How Much When Instructions Unchanged aripiprazole (Abilify 30 mg oral tablet) 1 Tablets By Mouth Every day Contact prescribingphysician if questions or concerns Unchanged busPIRone (busPIRone 10 mg Tab) By Mouth 2 times a day Contact prescribing physician if questions or concerns Unchanged dapagliflozin (Farxiga 10 mg oral tablet) By Mouth Every day Contact prescribing physician if questions or concerns Unchanged diclofenac (diclofenac sodium 50 mg Oral EC Tab) 1 Tablets By Mouth 2 times a day Contactprescribing physician if questions or concerns Unchanged fluoxetine (Prozac 20 mg Cap) 4 Capsules By Mouth Every day Contact prescribing physicianif questions or concerns Unchanged fluticasone/ umeclidinium/ vilanterol [...] signed up for this yet, please contact [employer] at [phone] to get signed up today. Language Information Language assistance services are available as needed. [facility] HospitalGastroenterology Office/Clinic Noteon [id number] Office/Clinic NoteGastroenterology Office/Clinic Note Chief Complaint ref by sara for [facility] Staff NEW, 69 year old female who presents today for a referral by Sara for complaints of hiatal hernia. Denies Blood Thinners. Denies GLP-1 Agonists. - Feels like it is pushing into her Lungs. taking omeprazole, denies previous EGD. no abdominal pain, she just can not eat or breathe, weight loss, 23 lbs. Colonoscopy w/ Dr Pulliam 04/25/24 Postoperative diagnosis: normal colon to cecum [...] mg daily Obtain CT scan report from [facility] Obtain EGD to evaluate hiatal hernia and [...] curettage, Mandible, [facility] BSO - Total abdominal hysterectomyand bilateral salpingo-oophorectomy, Tubal ligation. Medications Abilify 30 [...] Primary malignant neoplasm of lung: Mother and Sister.[facility] HospitalComment on above:Result Comment: Electronically Signed By: Jaja GRATN, Negrito Cruz\.br\Date and Time Signed: 01/31/2510:08 EDTOffice Visiton 01-16-2025 Follow-up [id number] Mary Vick 1955 F Date Provider Department Center 01/16/2025 Shabbir-MARVIN SAENZ [facility] Family History Problem Relation Age of Onset Cancer Mother Cancer Sister Family Status - Relation Status Age at Mother Father Sister Level of Service:33027 RI OFFICE/OUTPATIENT ESTABLISHED MOD MDM [facility]24 Ambulatory Visit SummaryAmbulatory Visit Summary MARY VICK :1955 Visit Date:03/20/2024 Ambulatory Visit Instructions Your Care Team Attending Physician - SHASHA GRANT, Anderson Wiley Primary Care Physician - Luisito Umana MD Referring Physician - Luistio Umana MD This Is Your Medications List Contact [...] 1 Tablets By Mouth Every day Contact prescribingphysician if questions or concerns Unchanged diclofenac (diclofenac sodium 50 mg Oral EC Tab) 1 Tablets By Mouth 2 times a day Contactprescribing physician if questions or concerns Unchanged ferrous sulfate (ferrous sulfate 325 mg Tab) 1 Tablets By Mouth Tuesday Contact prescribing physician if questions or concerns Unchanged fluoxetine (Prozac 20 mg Cap) 4 Capsules By Mouth Every day Contact prescribing physicianif questions or concerns Unchanged levothyroxine (levothyroxine 50 [...] you for choosing us for your care. [facility] HospitalBNPon 55-25-2549Iubmudawokg peptide B (Bld) [Mass/Vol]261.0 pg/mLNormal<=900.0The [facility] CenterComment on above:Performed By: #### BNP, HSTROPN, CMP #### [facility] Laboratory [address] [address] [address] Deborah Cordova AUTO DIFFon 26-62-3222TGTF #0.1 103/ulNormal0.0-0.1The [facility] CenterComment on above:Performed By: #### CBC ####[facility] [address] [address]Dr.Yilan MohanBasophils/100 WBC (Bld)0.8 %Normal0.2-2.0The [facility] CenterComment on above:Performed By: #### CBC ####[facility] [address] [address] ChangEO #0.2 103/ulNormal0.0-0.7The [facility] HospitalComment on above:Performed By: #### CBC ####[facility] [address] [place], [place] [address]Dr.Deborah ChangEosinophils/100 WBC (Bld)2.6 %Normal 0.9-7.0The [facility] CenterComment on above:Performed By: #### CBC ####[facility] [address] [place], [place] [address]Dr.Deborah Mohan Erythrocyte distribution width (RBC) [Ratio]20.5 %Critically high11.0-15.0The [facility] HospitalComment on above:Performed By: #### CBC ####[facility] I[address] [place], [place] [address]Dr.Ann-Mariemich ChangHematocrit (Bld) [Volume fraction]30.1 %Critically low36.0-48.0The [facility] HospitalComment on above:Performed By: #### CBC ####[facility] Teuwprg[address] [place], [place] [address]Dr.Deborah ChangHemoglobin (Bld) [Mass/Vol]9.2 g/dL Critically low12.0-16.0The [facility] HospitalComment on above:Performed By: #### CBC ####[facility] [address] [place], [place] [address]Dr. Ann-Mariemich ChangIG #0.05 10e3/ulCritically high0.00-0.03The [facility] CenterComment on above:Performed By: #### CBC ####[facility] D[address] [place], [place] [address]Dr.Deborah ChangIG %0.6 %Critically high0.0-0.5The [facility] HospitalComment on above:Performed By: #### CBC ####[facility] H[address] [place], [place] [address]Dr.Deborah ChangLYMPH #2.0 103/ulNormal1.2-3.8The [facility] CenterComment on above:Performed By: #### CBC ####[facility] [address]cbuf[address] [place], [place] [address]Dr. Ann-Mariemich ChangLymphocytes/100 WBC (Bld)25.9 %Jqgydz91.5-60.0The [facility] Comment on above:Performed By: #### CBC ####[facility] [address] [place], [place] [address]DrDaphne MohanMANUAL DIFF REQNONormalThe [facility] CenterComment on above:Performed By: #### CBC ####[facility] R[address]fwfpgec[address] [place], [place] [address]Dr.Deborah MohanH (RBC) [Entitic mass]25.7 pgCritically low26.7-34.0The [facility] CenterComment on above:Performed By: #### CBC ####[facility] Iawdpmzjqv[address] [place], [place] [address]Dr.Deborah MohanHC (RBC) [Mass/Vol]30.6 g/dLNormal 29.9-35.2The [facility] CenterComment on above:Performed By: #### CBC ####[facility] Vkssrvtwzp[address] [place], [place] [address]Dr. Deborah MohanV (RBC) [Entitic vol]84.1 dMJvkqbz64.0-99.0The [facility] Comment on above:Performed By: #### CBC ####[facility] [address] [place], [place] [address]DrDaphne MorfinO #0.4 103/ulNormal0.3-0.8 The [facility] CenterComment on above:Performed By: #### CBC ####[facility] [address]iw[address] [place], [place] [address]DrDaphne Mohan Monocytes/100 WBC (Bld)5.6 %Normal1.7-12.0The [facility] CenterComment on above: Performed By: #### CBC ####[facility] C[address]sev[address] [place], [place] [address]DrDaphne GormanUT #5.0 103/ulNormal1.4-6.5The [facility] CenterComment on above:Performed By: #### CBC ####[facility] R[address]zkepc[address] [place], [place] [address]Dr.Yilan ChangNeutrophils/100 WBC (Bld)64.5 %Pmbbmt70.0-75.0The [facility] CenterComment on above:Performed By: #### CBC ####[facility] [address] [address]Dr.Deborah MohanPlatelet mean volume (Bld) [Entitic vol]9.7 fLNormal9.5-13.5 The [facility] CenterComment on above:Performed By: #### CBC ####[facility] [address] [address]Dr.Deborah MohanPLT368 103/doKziuke101-411Azo [facility] CenterComment on above:Performed By: #### CBC ####[facility] [address] [address]Dr. Deborah MohanRBC3.58 106/ulCritically low4.20-5.40The [facility] CenterComment on above:Performed By: #### CBC ####[facility] [address] [address]Dr.Deborah MohanWBC7.7 103/ulNormal4.0-11.0The [facility] CenterComment on above:Performed By: #### CBC ####[facility] [address] [place], [place] [address]Dr.Deborah MohanCTA CHEST WO W CONon [id number] CHEST WO W CONEXAMINATION: CTA CHEST WO W CON HISTORY: SHORTNESS [...] Electronically authenticated by: ROBERT CONDON Date: 2022-09-17 13:18[facility] HospitalD-DIMERon 36-33-4144Z-DIMER1.31 mg/L FEUCritically high<=0.59 The [facility] CenterComment on above:Performed By: #### ANARF #### [facility] [address] [place] [address] Dr. Deborah Kelin-DIMER COMMENTSSEE BELOWFairfield Medical Center on above:Result Comment: Increases in D-Dimer concentration observed with thromboembolic [...] stress, and generalized hospitalization. Performed By: #### ANARF #### [facility] [address] [place] [address] Dr. Deborah MohanPROF 14(COMP METB)on 18-54-7085Bvzqrih [Mass/Vol]3.3 g/dL Critically low3.4-5.0The [facility] on above:Performed By: #### BNP, HSTROPN, CMP #### [facility] [address] [place] [address] Dr. Deborah MohanAlbumin/Globulin [Mass ratio]1.0 {ratio}NormalThe [facility] on above:Performed By: #### BNP, HSTROPN, CMP #### [facility] [address] [place] [address] Dr. Deborah MohanALP [Catalytic activity/Vol]57 U/NTfcalq19-387Gjh [facility] HospitalComment on above:Performed By: #### BNP, HSTROPN, CMP #### [facility] [address] [address] [address] Deborah Chacon [Catalytic activity/Vol]23 U/HCcwepl76-96Lop [facility] CenterComment on above:Performed By: #### BNP, HSTROPN, CMP #### [facility] [address] [place] [address] Dr. Deborah MohanAnion gap [Moles/Vol]9.2 mmol/LNormalThe [facility] CenterComment on above:Performed By: #### BNP, HSTROPN, CMP #### [facility] [address] [place] [address] Dr. Deborah Al [Catalytic activity/Vol]17 U/TRdidja01-70Pog [facility] CenterComment on above:Performed By: #### BNP, HSTROPN, CMP #### [facility] [address] [place] [address] Dr. Deborah MohanBilirubin [Mass/Vol]0.2 mg/dLNormal0.2-1.0[facility] Comment on above:Performed By: #### BNP, HSTROPN, CMP #### [facility] [address] [place] [address] Dr. Deborah MohanCalcium [Mass/Vol]8.9 mg/dLNormal8.5-10.1[facility] Comment on above:Performed By: #### BNP, HSTROPN, CMP #### [facility] [address] [place] [address] Dr. Deborah MohanChloride [Moles/Vol]106 mmol/MFdswpz20-853Fwj [facility] Comment on above:Performed By: #### BNP, HSTROPN, CMP #### [facility] [address] [place] [address] Dr. Deborah MohanCO2 [Moles/Vol]28.3 mmol/XEsrecc17.0-32.0[facility] Comment on above:Performed By: #### BNP, HSTROPN, CMP #### [facility] [address] [address] [address] Deborah MohanCreatinine [Mass/Vol]0.97 mg/dLNormal0.55-1.02The [facility] CenterComment on above:Performed By: #### BNP, HSTROPN, CMP #### [facility] [address] [address] [address] Cabrera ChangEGFR-AF FAROESE>60Normal>=60The [facility] CenterComment on above:Performed By: #### BNP, HSTROPN, CMP #### [facility] [address] [place] [address] Dr. Deborah OrdoñezGFR-NON AF EADXCXGE20 mL/min/1.34n6Kvyhwukjss low>=60The [facility] CenterComment on above:Performed By: #### BNP, HSTROPN, CMP #### [facility] [address] [place] [address] Dr. Deborah MohanGlobulin (S) [Mass/Vol]3.4 g/dLNormalThe [facility] CenterComment on above:Performed By: #### BNP, HSTROPN, CMP #### [facility] [address] [place] [address] Dr. Deborah MohanGlucose [Mass/Vol]103 mg/nVUnmkas39-440AdsWilson Memorial Hospital Comment on above:Performed By: #### BNP, HSTROPN, CMP #### [facility] [address] [place] [address] Dr. Deborah MohanPotassium [Moles/Vol]3.5 mmol/LNormal3.5-5.1The [facility] Comment on above:Performed By: #### BNP, HSTROPN, CMP #### [facility] [address] [place] [address] Dr. Deborah MohanProtein [Mass/Vol]6.7 g/dLNormal6.4-8.2The [facility] Comment on above:Performed By: #### BNP, HSTROPN, CMP #### [facility] [address] [place] [address] Dr. Deborah MohanSodium [Moles/Vol]140 mmol/ABcllpx118-234Qos [facility] Comment on above:Performed By: #### BNP, HSTROPN, CMP #### [facility] [address] [address] [address] Deborah Alvarado nitrogen [Mass/Vol]21.0 mg/dLCritically high7.0-18.0The [facility] CenterComment on above:Performed By: #### BNP, HSTROPN, CMP #### [facility] [address] [address] [address] Deborah Alvarado nitrogen/Creatinine [Mass ratio]21.6 mg/mgNoSelect Medical Cleveland Clinic Rehabilitation Hospital, AvonComment on above:Performed By: #### BNP, HSTROPN, CMP #### [facility] [address] [place] [address] Dr. Deborah Lovett, HIGH SENSITIVITYon 02-70-9237HZXKKN0.0 pg/mLNormal 4.0-51.3The [facility] CenterComment on above:Result Comment: CUT-OFF POINTS HAVE BEEN ESTABLISHED BASED ON THE FOURTH UNIVERSAL DEFINITIONS OF MYOCARDIAL INFARCTION. THE UPPER REFERENCE LIMIT (URL) OF TROPONIN, DEFINED THE 99TH PERCENTILE OF cTnI DISTRIBUTION IN A REFERENCE POPULATION, HAS BEEN CONFIRMED THE DECISION THRESHOLD FOR ND DIAGNOSIS.Performed By: #### BNP, HSTROPN, CMP #### [facility] [address] [place] [address] Dr. Deborah Stokes FREDA DOP LEG BILon 37-76-8504PX FREDA DOP LEG BILEXAM: US FREDA DOP LEG LUANA 09/17/2022 HISTORY: [...] Electronically authenticated by: RAFIQ RON Date: 2022-09-17 11:54No[facility], AvonXR CHEST 1 Von [id number] CHEST 1 VEXAMINATION: XR CHEST 1 V HISTORY: SHORTNESS OF BREATH COMPARISON: [...] Electronically authenticated by: ROBERT CONDON Date: 2022-09-17 11:36NormalThe Trinity Health SystemYMPTOMATIC COVID-19 ANTIGENon [id number] StatementSEE BELOW NormalThe [facility] CenterComment on above:Result Comment: This test has not been FDA [...] declaration is terminated or authorization is revoked sooner.Performed By: #### ANARF #### [facility] [address] [place] [address] Dr. Deborah Sotelo-CoV-2 (COVID-19) RNA ERIC+probe Ql (Unsp spec)Positive AbnormalNEGATIVEThe [facility] CenterComment on above:Performed By: #### ANARF #### [facility] [address] [address] [address] Deborah Armendariz THYROXINE INDEX T7on 70-02-1561XHS2.74Nqyeoh2.30-4.50The [facility] CenterComment on above:Performed By: #### BNP, HSTROPN, CMP #### [facility] [address] [place] [address] Dr. Deborah MohanT3U34.0 %Ugzlls79.0-39.0The [facility] CenterComment on above: Performed By: #### BNP, HSTROPN, CMP #### [facility] [address] [place] [address] Dr. Deborah Pettit4 [Mass/Vol]9.70 ug/dLNormal4.80-13.90[facility] Comment on above:Performed By: #### BNP, HSTROPN, CMP #### [facility] [address] [place] [address] Dr. Deborah Hall 30-09-8864Belu [Mass/Vol]14.0 ug/dLCritically low 50.0-170.0[facility] HospitalComment on above:Performed By: #### IRON ####[facility] [address] [place], [place] [address]Dr. Deborah TavarezHolisa 55-48-0387MPZ0.463 uIU/mLNormal0.358-3.740[facility] Comment on above:Performed By: #### ANARF #### [facility] [address] [place] [address] Dr. Deborah Cordova AUTO DIFFon 32-03-6091QVUG #0.1 103/ulNormal0.0-0.1[facility] HospitalComment on above:Performed By: #### ANARF #### [facility] [address] [place] [address] Dr. Deborah MohanBasophils/100 WBC (Bld)0.8 %Normal0.2-2.0[facility] Comment on above:Performed By: #### ANARF #### [facility] [address] [place] [address] Dr. Deborah Garcia #0.3 103/ulNormal0.0-0.7The [facility] CenterComment on above: Performed By: #### ANARF #### [facility] [address] [place] [address] Dr. Deborah Ordoñezosinophils/100 WBC (Bld)2.6 %Normal0.9-7.0The [facility] Comment on above:Performed By: #### ANARF #### [facility] [address] [place] [address] Dr. Deborah Ordoñezrythrocyte distribution width (RBC) [Ratio]19.9 %Critically high 11.0-15.0The [facility] CenterComment on above:Performed By: #### ANARF #### [facility] [address] [place] [address] Dr. Deborah MohanHematocrit (Bld) [Volume fraction]28.8 %Critically low36.0-48.0 The [facility] HospitalComment on above:Performed By: #### ANARF #### [facility] [address] [place] [address] Dr. Deborah MohanHemoglobin (Bld) [Mass/Vol]8.9 g/dLCritically low12.0-16.0The [facility] CenterComment on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 [Mass fraction]98 %Rosalba Osorio DO Work Phone: [facility] CenterHcenmshssz71-03-7907 10:20-0400Systolic blood mm[Hg]Rosalba Osorio DO Work Phone: [facility] CenterBqvijgnyra14-95-8470 14:57-0400Blood Pressure LocationMichael NILL [phone]-Gljzk General Surgery Pjiqxsxf69-07-2071 14:57-0400Diastolic blood iawarqkv59 mm[Hg]Anderson NILL 970-6771Izpznz-Hawdg General Surgery Ibdsfytg95-76-4032 14:57-0400Heart rate70 /minMichael NILL 037-4748Jutkxk-Liecb General Surgery Iohbkcot75-96-5785 14:57-0400Respiratory rate16 /minMichael NILL 790-8952Finvou-Sdlhs General Surgery Xxcngbue92-45-8147 14:57-0400Systolic blood ublamsql361 mm[Hg]Anderson NILL 406-6374Trejhw-WlnodOhiohealth Southeastern Medical Center Encounters Encounter DateEncounter TypeCare ProviderFacilityStart: 03-04-2025 End: 15-62-2396btyvlucsmaXCNGTriHealth Good Samaritan Hospitaltart: 03-04-2025 End: 50-12-9266Amhaqqgwl for preprocedural cardiovascular examinationADAM CHERRIECommunity Memorial Hospitaltart: 36-06-3489djhahjjzquACYSYSE TASTALDI Facility:[facility]tart: 02-21-2025 End: 19-43-6559axuyvbmgnpGTCKQIA TASTALDIFacility:[facility] [place] Start: 02-11-2025 End: 16-91-6769mrrjzsjzpaTffwtbm A. MouchliFacility:[facility]ENTERtart: 01-31-2025 End: 43-89-5645ogtkbnfkrsEquhhjg A. MouchliFacility:[facility] Daytontart: 01-31-2025 End: 25-59-5475Rbdezfx encounter procedureMoramón Wilkinson 377-6734Rxpnid-TxxnkUniversity Hospitals [facility] Start: 01-29-2025 End: 41-42-1114Uatcvtdmk encounterClotharis Reyes KATERINA [place] OtolaryngologyStart: 44-78-3182esvnwqvfetKognzbt MouchliFacility:[facility] Start: 01-24-2025 End: 33-97-6344Ydekkq Jesse Ac DO Work Phone: [facility] PulmonologyStart: 01-24-2025 End: 15-79-4776Ozjkqj Jesse Ac DO Work Phone: [facility] [place] PulmonologyStart: 01-24-2025 End: 01-23-1992Aadqbm outpatient new 45 minutesRosalba Ac DO Work Phone: noMS Melissa Fam PulmonologyComment on above: Chronic obstructive pulmonary disease, unspecified COPD type (HCC) (Primary Dx) Start: 01-24-2025 End: 62-96-2985kzdwehgmrsZQBMTT K STRACKNot AvailableStart: 01-16-2025 End: 39-12-2387cgvmxuxdlfTDAUSelect Medical Specialty Hospital - Akrontart: 12-10-2024 End: 04-62-4512vbqpjslhmmIkdxku Zaynab CramerFacility:City Hospitaltart: 39-00-1262Wri-patient / Non-visitChristopher Dexter Barahona MD- [facility] Work Phone: Start: 10-22-2024 End: 03-25-6178qsifxnnuioAvpqwol Tim Woodruff MDFacility:[facility] Start: 04-25-2024 End: 04-88-0149overgmxkjeUoaejjz R NILLFacility:CD:[id number]: 03-20-2024 End: 46-96-9299mtvkdvblmlMqbbigb HoyFacility:GS BellueStart: 03-20-2024 End: 66-32-0782Fcnrfef encounter procedureMichael R NILL [phone]-Eizru [facility] [place] Start: 10-05-2022 End: 01-36-6159zyktfulpgzJPDKXPHUCBIG LAKSHMIPATHY .Facility:N7Xbkvp: 09-17-2022 End: 97-90-0731setkflcngtYN INGRID ESPINALFacility:D7Ougqa: 08-26-2022 ambulatoryNARENDRANATH LAKSHMIPATHY .Facility:W7Kjygp: 08-24-2022 End: 64-11-0818oojncvbsdiWEMEPV CRAMERFacility:G1Jsnxa: 07-08-2022 End: 01-59-5526rheyzguoorFXCF RAMON .Facility:R2Okblt: 07-06-2022 End: 98-79-8281dmwwsaivqaCFUEPX CRAMERFacility:Z3Rqxpl: 06-24-2022 End: 26-64-4187juhxkrlcjdGMPV RAMON .Facility:Q5Jywpt: 58-42-5477bpuyekuppn NATIVIDAD CRAMERFacility:L0Qsjan: 05-08-2022 End: 49-46-9826gaejovexmqDJN-C Stephanie Breault Work Phone: [facility] Work Phone: Start: 05-08-2022 End: 71-50-7308Oxppfel encounter procedureFNP-Ren Barrett Work Phone: [facility] Start: 04-08-2022 End: 57-28-7451iowvavtazcSAUX RAMON .Facility:D6Fgghv: 04-07-2022 End: 35-82-8045otbibpsstyYRAIGF CRAMERFacility:B5Ckkxy: 03-16-2022 End: 41-77-3065jixyxaremyVAKVHW CRAMERFacility:L7Xfqvu: 03-12-2022 End: 92-15-7844hkgatzfyvfSRVOPI CRAMERFacility:K3Fakcq: 03-09-2022 End: 40-41-2798cyrltspopaJWKQEV CRAMERFacility:M3Eahta: 03-05-2022 End: 25-42-8940mdvdmrwivbJFCAML CRAMERFacility:S7Tqmqk: 02-28-2022 End: 94-77-8743fxngslufnsXQTVXP CRAMERFacility:V2Kxdml: 01-29-2022 End: 79-35-5791dhfivdpzwcBXRD RAMON .Facility:T3Fuhoy: 01-28-2022 End: 42-73-8386fzvqmsbpfmZFFO RAMON .Facility:T4Nphfo: 11-29-2021 End: 93-77-9720maqjmsdlkgOYDIQU CRAMERFacility:J8Iofcl: 11-11-2021 End: 46-56-7865navteccpnwMG LUISITO UMANA .Facility:X2Cpgrg: 11-05-2021 End: 17-52-2665pzdtlnytovULPL RAMON .Facility:Y2Rxsoa: 04-01-2018 End: 71-62-1839Kcowjfoeo department patient visitDADARRYL GAINESRiverview Health Institutetart: 12-11-2017 End: 30-97-2832Lxjbqrcqh department patient visitDAVID Kelly DOMÍNGUEZRENFacility:[facility] Procedures DateProcedureProcedure DetailPerforming ClinicianStart: 16-28-1023Rampickmxsd Negrito Wilkinson Start: 75-46-4411Lapwf X-ray of left wristFNP-C Clarita Barrett Work Phone: Start: 99-68-1809E-ray of left ankleFNP-C Clarita Barrett Work Phone: Start: 20-58-9462TJ CONSULT TO ORAL SURGERYBRANDON RUSSELLStart: 53-69-8168MopfyjdnnfcQfmbxdg NILL AppendectomyMichael NILL BlepharoplastyMichael NILL Bone structure of mandible (body structure)Anderson NILL Dilation and curettageMichael NILL Extraction of cataractMichael NILL Ligation of fallopian tubeMichael NILL Total abdominal hysterectomy with bilateral salpingo-oophorectomyMichael NILL Plan of Treatment DateCare ActivityDetailAuthorStart: 05-07-2025 End: 55-23-7281Syteqso encounter hyjndpjfn40/16/2025 2:00 PM EST Office Visit [facility] [address] [place] [id number] Rosalba Ac, DO [address] [place] [address] [facility] PulmonologyStart: 01-24-2025 End: 25-21-3151Mycsmir encounter snjxjeilh63/04/2025 10:15 AM EDT Consult [facility] [address] [place] [address] Rosalba Ac, DO [address] [place] [address] [facility] Comment on above:ArrivedStart: 93-92-1188Lldxdgfxj vaccinationInfluenza Vaccine (#1)[facility] HealthcareStart: 17-53-9984Avutavfkb for malignant neoplasm of breast MammogramNOMS HealthcareStart: 08-87-5581Mtevviadu for malignant neoplasm of colonNOMS Healthcare Immunizations Immunization DateImmunizationNotesCare OmuxeiooJuglmltr94-36-6125vmchuytcg virus vaccine, unspecified formulationRosalba Ac DO Work Phone: [facility] Payers DatePayer CategoryPayerPolicy ID2025Self-pay2024Medicare [id number] (Managed Care)[employer] Member Subscriber Plan / Payer (Effective 2021-Present) Name: Mary Vick Relation to Subscriber: Self Name: Mary Vick Payer ID: Not on file Group ID: [id number] Type: Not on file Address: [facility] [address] [place] [id number] JoyrfemKQN26[id number] 2.0.1.072030.3.579.2.593 [id number] 2.0.1.137598.3.57[id number] 2.16.840.1.966601.3.579.[id number] 2.16.840.1.190619.3.579.[id number] 2.16.840.1.803117.3.57[id number] 2.16.840.1.997716.3.579.2.37876-86-8410Crmatxi4789280 2.16.840.1.374555.3.579.[id number] 2.16.840.1.893408.3.57[id number] 2.16.840.1.887025.3.579.2.78955-45-9707Gnqhprb9099556 2.16.840.1.470366.3.579.2.28706-39-8592Momwgcl7638231 2.16.840.1.097302.3.579.2.90103-29-7379Uymkbba3440144 2.16.840.1.935753.3.579.2.48148-89-8082Tzxbuos0570493 2.16.840.1.262056.3.579.2.14761-18-8991Czrvvhz9098864 2.16.840.1.295183.3.579.2.97489-91-0776Rgrqqmu5578171 2.16.840.1.569383.3.579.2.79478-03-8357Xpfopry4621356 2.16.840.1.548361.3.579.2.40617-95-2911Axmemrt3398571 2.16.840.1.646988.3.57[id number] 2.16840.1.595062.3.579.2.93693-10-5126Tavkgcq5741704 2.16840.1.502315.3.579.2.26372-64-5190Kngskwp6006361 2.16840.1.790952.3.579.2.10428-26-7151Yphadlw3910406 2.160.1.903905.3.579.[id number] 2.0.1.347615.3.579.2.35755-85-1624Hdzatjb337124005 2..1.497754.3.579.2.28216-96-7678Fqsxeyw00087380 2..1.212253.3.579.2.375380-85-6046Iiodqzu31781652 2.0.1.947963.3.579.2.20293-55-7539Ibcowcg12986960 2..1.912219.3.579.2.20292-44-5527Ukeoumg31659208 2..1.268378.3.579.2.82900-56-5314Xetrell26693478 2..1.11[id number] 144j2024-9vtz-6j3s-0x28-aox9zlyf9z39QptvokmBumpli /[id number] 7b957mp2-k601-8r1q-2769-[id number] 2.0.1.461411.3.579.2.531 Social History DateTypeDetailFacilityTobacco smoking status NHISUnknown if ever smokedWilson Street Hospital Work Phone: Start: 04-97-8035Egs Assigned At [facility] Hospitaltart: 03-20-2024 End: 74-92-5233Npdvyev smoking statusEx-smoker (finding)[facility] CenterTobacco smoking statusNeProtestant Hospital Start: 01-20-2024 End: 21-74-4964Bnx Assigned At [facility]tart: 01-06-2024 End: 77-87-8939[place] smoking status NHISNever smoked tobacco (finding) [facility] HospitalexFemale (finding)[facility] Hospitaltart: 68-62-4382Zbqefvr use and exposureSmokeless tobacco non-userNOMS HealthcareStart: 01-20-2024 End: 92-32-8830Acsbgcnlo beverage intakeLifetime non-drinker (finding)[facility] HealthcareStart: 01-20-2024 End: 99-73-3590Vwyvudl of Social functionNOMS HealthcareStart: 51-17-6719Afa assigned at birthNot on [facility] HealthcareSexual OrientationUniversity Hospitals Samaritan Medical Center [facility] Functional Status ZzikSjuugbaabhXppjpwKyzqwcii67-85-5518Jsfylbmmsp StatusN/AFEast [place] [facility] Clinical Notes 11-05-2021 to 03-04-2025 Note Date & QvdtOkwiMxuzuenb04-81-3522 NoteSUBJECTIVE Reason for Visit: Mary Vick is a 69 y.o. year old female patient being seen for 3-month follow-up visit, surgical clearance for hernia. HPI: Mary Vick is a 69 y.o. year old female with significant medical history of HFpEF, hypertension, SVT, mild aortic regurgitation, and CKD. 03/04/2025 office visit: Patient was seen and evaluated in the office today for surgical clearance. She reports shortness of breath upon walking few steps but attributes this to the hernia that she says is pressing against her lung/diaphragm. Otherwise, denies chest pain, palpitations, lightheadedness or dizziness, or lower extremity edema. 01/16/2025 office visit (Dr. Saenz): Chief Complaint: Patient here for a 1 year follow up with Echo. Patient states she is out of breath all the time. Patient complains leg swelling, fatigue, dizziness/lightheaded, DAI, chest pain, bruising/bleeding. Patient states she has been going to pain management, today when she was seen in pain management her blood pressure was 188 mmHg. The patient broke her arm earlier this year and has been unable to work from the beginning of the year. She has put on a significant amount of weight since that time. She denies significant anginal chest pain. Her shortness of breath is significantly worse. No orthopnea or paroxysmal external dyspnea. Mild lower extremity edema. Medical History[1] Surgical History[2] Problem List[3] family history includes Cancer in her mother and sister. Social History[4] OBJECTIVE Visit Vitals Smoking Status Former Physical Exam Constitutional: General Appearance: well-developed, appears stated age. Level of Distress: no acute distress. Neck: Jugular Veins: normal jugular venous pressure. Lungs: Auscultation: no rales or rhonchi and normal breath sounds. Cardiovascular: Rate And Rhythm: regular Heart Sounds: normal S1 and s2; Systolic Murmur: not heard. Diastolic Murmur: not heard. Extremities: Trace lower extremity. Peripheral Pulses: Pulses: full and equal in all extremities except if noted. Abdomen: Inspection and Palpation: non distended or tender and soft. Musculoskeletal: Inspection: no joint tenderness or swelling. Neurologic: Gait: normal gait. Psychiatric: Mental Status: alert and normal affect. Skin: Inspection and Palpation: warm and dry. Allergies: Allergies[5] Outpatient Medications: Current Outpatient Medications Medication Instructions amitriptyline (ELAVIL) 50 mg, Nightly amLODIPine (Norvasc) 10 mg tablet Take 1 tablet every day by oral route with meals for 90 days. ARIPiprazole (ABILIFY) 30 mg, Daily busPIRone (Buspar) 10 mg tablet 1 tablet, 2 times daily bjakwdgrfk-dabnmxkikmzml-erac 50-325-40 mg tablet 1 tablet, Every 4 hours RT calcium carbonate-vitamin D3 500 mg-5 mcg (200 unit) tablet 1 tablet dapagliflozin propanediol (FARXIGA) 10 mg, oral, Once Daily diclofenac (CATAFLAM) 50 mg, 2 times daily RT FLUoxetine (PROzac) 20 mg tablet Take 1 tablet 4 times a day by oral route. furosemide (LASIX) 20 mg, oral, Daily ibuprofen 800 mg tablet 1 tablet, Every 6 hours PRN levothyroxine (SYNTHROID, LEVOXYL) 50 mcg, Daily RT lisinopril 40 mg, oral, Once Daily magnesium oxide (Mag-Ox) 400 mg (241.3 mg magnesium) tablet Take 2 tablets twice a day by oral route with meals for 90 days. methocarbamol (ROBAXIN) 750 mg, 4 times daily metoprolol succinate XL (TOPROL-XL) 100 mg, Daily RT omeprazole (PRILOSEC) 10 mg, 2 times daily before meals oxyCODONE-acetaminophen (Percocet) 5-325 mg tablet 1 tablet, Daily PRN potassium chloride CR (K-Tab) 20 mEq ER tablet Take 2 tablets now and 2 tablets this evening. Then take 2 tablets daily starting the following day. Call office for further refills. rOPINIRole (Requip) 1 mg tablet Every 24 hours Recent Labs: No visits with results within 2 Month(s) from this visit. Latest known visit with results is: [facility] Encounter on 09/06/2016 Component Date Value Ventricular Rate 09/06/2016 60 Atrial Rate 09/06/2016 60 RI Interval 09/06/2016 154 QRS DURATION 09/06/2016 94 QT Interval 09/06/2016 444 QTC CALCULATION(BEZET) 09/06/2016 444 P [place] 09/06/2016 40 R-[place] 09/06/2016 20 T Wave [place] 09/06/2016 39 Diagnosis 09/06/2016 Value:Normal sinus rhythm Normal ECG When compared with ECG of 26-JAN-2016 21:00, No significant change was found Confirmed by Liudmila BANUELOS, L.S. (2) on 09/07/2016 1:24:21 PM I have personally reviewed and anaylzed the following laboratory results above. These findings have been analyzed in the context of the patient's clinical presentation. Cardiovascular Diagnostic Studies: Event monitor 10/04/2023: Predominant rhythm is sinus with average heart rate of 60 bpm Fastest heart rate of 192 bpm SVT and/rate of 43 bpm 31 PVCs No atrial fibrillation Episodes of bradycardia without obvious P waves consider junctional rhythm Echocardiogram 07/06/2021: Global (more content not included)...[facility] [place] 02-28-2025 NoteHNO ID: [id number] Author: BETHEL DELGADILLO RT(R) Service: Radiology Author Type: Technologist Type: Progress Notes Filed: 02/28/2025 13:41 Note Text: Radiology Service Progress Note PATIENT NAME: Mary Vick DATE OF SERVICE: February 28, 2025 TIME: 1:41 PM PATIENT IDENTITY VERIFICATION COMPLETED USING TWO (2) IDENTIFIERS: Name and Date of confirmed by patient verbally. FALL SCREENING: Has the patient had 2 falls in the last year or 1 fall with injury or currently using an Ambulatory Assistive Device (Walker, Cane, Wheelchair, Crutches, etc.)? No PATIENT GENDER DATA: Assigned female at . status: : No status: NO. PATIENT RELEVANT IMPLANT DATA REVIEWED: Not Applicable PATIENT PRESENTS WITH AN IMPLANTABLE OR ATTACHED RESIDENTIAL SALES EXECUTIVE: No RADIOLOGY DEPARTMENT: General X-ray: Exam(s) Completed: GI/ Procedure(s): Esophogram with barium contrast PERIPHERAL IV DATA: Not applicable SIGNED BY: RT Carlos Manuel(R) February 28, 2025 1:41 [facility]10-07-2025 NoteProgress Note-Physician Patient: MARY VICK Age: 69 years Sex: Female : 1955 Associated Diagnoses: None Author: Rafiq Echols MD Preoperative Information Anesthesia Preop Info Anesthesia history: Patient history: None. Family history+: None. Informed consent: Signed by patient. Including risks, benefits, and alternatives related to the: Anesthetic plan, Postoperative pain management plan. Re-evaluation prior to induction: Rafiq Echols MD. Review of Systems Eye Ear/Nose/Mouth/Throat Respiratory: No shortness of breath, No cough. Cardiovascular: Negative, No chest pain. Gastrointestinal: No heartburn. Musculoskeletal Neurologic Health Status Allergies: Allergic Reactions (Selected) Severity Not Documented Imitrex- Patient reported problems., Allergies (1) Active Severity Reaction Imitrex Patient reported problems Current medications: (Selected) Inpatient Medications Ordered Sodium Chloride 0.9% IV Emerita 1000 mL 1,000 mL: 1,000 mL, IV, 20 mL/hr, Routine, Start date 02/11/25 6:36:00 EDT, 50 hour(s), Total volume (mL): 1,000, 81.9 kg, 1.89, m2 Documented Medications Documented Abilify 30 mg oral tablet: 30 mg = 1 tab(s), Oral, Daily, Refills(s) 0, Depression Farxiga 10 mg oral tablet: mg tab(s), Oral, Daily, Refills(s) 0, Blood glucose Klor-Con: Oral, Daily, Refills(s) 0, Prophylaxis Prilosec OTC: 20 mg, Oral, BID, Refills(s) 0, Control of stomach acid Prozac 20 mg Cap: 80 mg = 4 cap(s), Oral, Daily, Refills(s) 0, Anxiety Requip: Oral, Once a day (at bedtime), Refills(s) 0, Other (see comment) Robaxin-750 oral tablet: mg tab(s), Oral, TID, Refills(s) 0, Muscle pain Zestril 40 mg Tab: mg tab(s), Oral, Daily, Refills(s) 0, High blood pressure busPIRone 10 mg Tab: mg tab(s), Oral, BID, Refills(s) 0, Anxiety diclofenac sodium 50 mg Oral EC Tab: 50 mg = 1 tab(s), Oral, BID, Refills(s) 0, Pain levothyroxine 50 mcg (0.05 mg) Tab: 50 mcg = 1 tab(s), Oral, Daily, Refills(s) 0, Thyroid, Home Medications (11) Active Abilify 30 mg oral tablet 30 mg = 1 tab(s), Oral, Daily busPIRone 10 mg Tab , Oral, BID diclofenac sodium 50 mg Oral EC Tab 50 mg = 1 tab(s), Oral, BID Farxiga 10 mg oral tablet , Oral, Daily Klor-Con , Oral, Daily levothyroxine 50 mcg (0.05 mg) Tab 50 mcg = 1 tab(s), Oral, Daily Prilosec OTC 20 mg, Oral, BID Prozac 20 mg Cap 80 mg = 4 cap(s), Oral, Daily Requip , Oral, Once a day (at bedtime) Robaxin-750 oral tablet , Oral, TID Zestril 40 mg Tab , Oral, Daily , Medications (1) Active Scheduled: (0) Continuous: (1) Sodium Chloride 0.9% 1,000 mL 1,000 mL, IV, 20 mL/hr PRN: (0) Problem list: All Problems Anxiety / SNOMED CT 23225918 / Confirmed Bipolar I disorder / SNOMED CT 1171515699 / Confirmed BMI 35.0-35.9,adult / SNOMED CT 630816738 / Confirmed Chronic obstructive pulmonary disease / SNOMED CT 701247894 / Confirmed Class 3 obesity / SNOMED CT 3975293766 / Confirmed Continuous opioid dependence / SNOMED CT 310848163 / Confirmed Diverticulosis / SNOMED CT 1802131570 / Confirmed Gastroesophageal reflux disease / SNOMED CT 254654099 / Confirmed Hearing loss / SNOMED CT 74518995 / Confirmed Hiatal hernia / SNOMED CT 266000534 / Confirmed Hypercholesterolemia / SNOMED CT 21255317 / Confirmed Hypertension / SNOMED CT 8246071757 / Confirmed Hypothyroidism / SNOMED CT 14786119 / Confirmed Lumbar radiculopathy / SNOMED CT 061147669 / Confirmed Migraine / SNOMED CT 76453027 / Confirmed Osteoporosis / SNOMED CT 233544030 / Confirmed Pulmonary hypertension / SNOMED CT 769362693 / Confirmed Restless leg syndrome / SNOMED CT 11520344 / Confirmed Screening for malignant neoplasm of colon / SNOMED CT 531376956 / Confirmed Sleep apnea / SNOMED CT 601475981 / Confirmed SVT (supraventricular tachycardia) / SNOMED CT 70456327 / Confirmed Weight loss / SNOMED CT 122607840 / Confirmed, Active Problems (22) Anxiety Bipolar I disorder BMI 35.0-35.9,adult Chronic obstructive pulmonary disease Class 3 obesity Continuous opioid dependence Diverticulosis Gastroesophageal reflux disease Hearing loss Hiatal hernia Hypercholesterolemia Hypertension Hypothyroidism Lumbar radiculopathy Migraine Osteoporosis Pulmonary hypertension Restless leg syndrome Screening for malignant neoplasm of colon Sleep apnea SVT (supraventricular tachycardia) Weight loss Histories Past Medical History: No active or resolved past medical history items have been selected or recorded. Family History: Primary malignant neoplasm of lung Mother Sister Procedure history: Colonoscopy ([id number]) on 04/25/2024 at 68 Years. Colonoscopy ([id number]) on 03/14/2013 at 57 Years. Tubal ligation (063055165). Appendectomy (873523120). Cataract extraction (93666427). Mandible (827560924). ARIES BSO - Total abdominal hysterectomy and bilateral salpingo-oophorectomy ([id number]). (more content not included)...[facility] Center[facility] on [facility]:Result Comment: duplicate Electronically Signed By: Rafiq Echols MD02-21-2025 NoteHNO ID: [id number] Author: JOO BALES, ? Service: ? Author Type: Physician Type: Progress Notes Filed: 02/21/2025 12:40 Note Text: I have seen and evaluated the patient and discussed the case with the fellow. I agree with the assessment and plan as documented in the fellow's note. Mary Vick is a 69 year old woman with history of HFpEF, COPD not on home O2, HTN, GERD and PSH of hysterectomy presenting for evaluation of a large paraesophageal hernia. She has been ongoing workup for DAI that significantly improved after diuretics/Farxiga by cardiology. She complains of reflux, sensation of food getting stuck and early satiety that has been present for years but got worse over the last [address] Scan shows a large paraesophageal hernia with the stomach almost completely on the chest. We discussed risks, benefits and alternatives to laparoscopic possible open paraesophageal hernia repair, possibly with mesh, with anterior gastropexy and intraoperative endoscopy. Risks of bleeding, infection, damage to other structures including esophagus and spleen was discussed. She understands and is eager to proceed. She got an EGD about 2 weeks ago and our office will obtain the report (Kourtney Duran 02/11/2025). She will also be seen by her glassware finisher for clearance. UGI ordered. Joo Bales MD [facility] NoteHNO ID: [id number] Author: ?, ?, ? Service: ? Author Type: ? Type: Progress Notes Filed: 02/21/2025 12:40 Note Text: What is the reason for your visit today? consult Who is your referring physician? self Are you having poor oral intake? YES Have you had unintentional weight loss of 15 lbs/7 Kg in the last 3-6 months? YES Bowels: regular Wound: clean AND dry Temperature: No Drains: [facility]09-22-2025 NoteProgress Note-Physician Patient: MARY VICK Age: 69 years Sex: Female : 1955 Associated Diagnoses: None Author: Renzo Stoner Jr., DO Postoperative Information Postoperative disposition: Postoperative disposition: Home. Optimetrix number: Optimetrix number [id number]. Anesthetic utilized: General. Physical Examination Vital Signs 02/11/2025 10:31 EDT Heart Rate Monitored 62 bpm 02/11/2025 10:31 EDT Respiratory Rate Monitored 18 br/min 02/11/2025 10:31 EDT Systolic Blood Pressure 123 mmHg Diastolic Blood Pressure 72 mmHg Blood Pressure Location Left arm SpO2 95 % 02/11/2025 10:22 EDT Heart Rate Monitored 63 bpm SpO2 94 % 02/11/2025 10:22 EDT Respiratory Rate Monitored 22 br/min 02/11/2025 10:22 EDT Systolic Blood Pressure 123 mmHg Diastolic Blood Pressure 66 mmHg Blood Pressure Location Left arm 02/11/2025 10:12 EDT SpO2 93 % 02/11/2025 10:12 EDT Heart Rate Monitored 67 bpm Respiratory Rate Monitored 18 br/min 02/11/2025 10:12 EDT Systolic Blood Pressure 116 mmHg Diastolic Blood Pressure 68 mmHg Blood Pressure Location Left arm 02/11/2025 10:07 EDT Heart Rate Monitored 68 bpm Respiratory Rate Monitored 18 br/min 02/11/2025 10:07 EDT SpO2 94 % 02/11/2025 10:07 EDT Systolic Blood Pressure 93 mmHg Diastolic Blood Pressure 69 mmHg Blood Pressure Location Left arm 02/11/2025 10:02 EDT Heart Rate Monitored 72 bpm Respiratory Rate Monitored 23 br/min 02/11/2025 10:02 EDT Systolic Blood Pressure 110 mmHg Diastolic Blood Pressure 70 mmHg Blood Pressure Location Left arm SpO2 94 % 02/11/2025 9:57 EDT SpO2 92 % 02/11/2025 9:57 EDT Heart Rate Monitored 70 bpm Respiratory Rate Monitored 25 br/min 02/11/2025 9:57 EDT Systolic Blood Pressure 107 mmHg Diastolic Blood Pressure 67 mmHg Blood Pressure Location Left arm 02/11/2025 9:52 EDT Respiratory Rate Monitored 23 br/min 02/11/2025 9:52 EDT SpO2 93 % 02/11/2025 9:52 EDT Heart Rate Monitored 67 bpm 02/11/2025 9:52 EDT Systolic Blood Pressure 108 mmHg Diastolic Blood Pressure 68 mmHg Blood Pressure Location Left arm 02/11/2025 9:47 EDT SpO2 90 % 02/11/2025 9:47 EDT Temperature Temporal Artery 36.6 DegC Heart Rate Monitored 77 bpm Respiratory Rate Monitored 28 br/min Systolic Blood Pressure 133 mmHg Diastolic Blood Pressure 69 mmHg Blood Pressure Location Left arm Pain Assessment: Controlled. General: Awake, Alert, Appropriate. Respiratory: Adequate air exchange, Non-labored. Cardiovascular: Stable, Normal peripheral perfusion. Neurological: Neurologic exam at baseline. No changes.. Assessment Anesthetic outcome No anesthetic complications noted. No nausea/vomiting. Review / Management Condition: Stable. Plan Transfer/Discharge: Transfer/Discharge Discharge when meets criteria ( From PACU to Ambulatory Surgery Unit, and To home ).[facility]Comment on above:Result Comment: Electronically Signed By: Renzo Stoner Jr., DO.nigel\Date and Time Signed: 02/11/25 11:27 [id number] NotePatient Education - Text Gastroenterology Upper Endoscopy, Adult, Care After After the procedure, it is common to have a sore throat. It is also common to have: ??? Mild stomach pain or discomfort. ??? Bloating. ??? Nausea. Follow these instructions at home: The instructions below may help you care for yourself at home. Your health care provider may give you more instructions. If you have questions, ask your health care provider. ??? If you were given a sedative during the procedure, it can affect you for several hours. Do not drive or operate machinery until your health care provider says that it is safe. ??? If you will be going home right after the procedure, plan to have a responsible adult: ? Take you home from the hospital or clinic. You will not be allowed to drive. ? Care for you for the time you are told. ??? Follow instructions from your health care provider about what you may eat and drink. ??? Return to your normal activities as told by your health care provider. Ask your health care provider what activities are safe for you. ??? Take rlat-qyi-gkuhnjv and prescription medicines only as told by your health care provider. Contact a health care provider if you: ??? Have a sore throat that lasts longer than one day. ??? Have trouble swallowing. ??? Have a fever. Get help right away if you: ??? Vomit blood or your vomit looks like coffee grounds. ??? Have bloody, black, or tarry stools. ??? Have a very bad sore throat or you cannot swallow. ??? Have difficulty breathing or very bad pain in your chest or abdomen. These symptoms may be an emergency. Get help right away. Call 911. ??? Do not wait to see if the symptoms will go away. ??? Do not drive yourself to the hospital. Summary ??? After the procedure, it is common to have a sore throat, mild stomach discomfort, bloating, andnausea. ??? If you were given a sedative during the procedure, it can affect you for several hours. Do not drive until your health care provider says that it is safe. ??? Follow instructions from your health care provider about what you may eat and drink. ??? Return to your normal activities as told by your health care provider. This information is not intended to replace advice given to you by your health care provider. Make sure you discuss any questions you have with your health care provider. Document Revised: 08/18/2022 Document Reviewed: 08/18/2022 [employer] Patient Education ? 2023 Source Audio. Hiatal Hernia A hiatal hernia occurs when part of the stomach slides above the muscle that separates the abdomen from the chest (diaphragm). A person can be born with a hiatal hernia (congenital), or it may develop over time. In almost all cases of hiatal hernia, only the top part of the stomach pushes through the diaphragm. Many people have a hiatal hernia with no symptoms. The larger the hernia, the more likely it is that you will have symptoms. In some cases, a hiatal hernia allows stomach acid to flow back into the tube that carries food from your mouth to your stomach (esophagus). This may cause heartburn symptoms. The development of heartburn symptoms may mean that you have a condition called gastroesophageal reflux disease (GERD). What are the causes? This condition is caused by a weakness in the opening (hiatus) where the esophagus passes through the diaphragm to attach to the upper part of the stomach. A person may be born with a weakness in thehiatus, or a weakness can develop over time. What increases the risk? This condition is more likely to develop in: ??? Older people. Age is a major risk factor for a hiatal hernia, especially if you are over the age of 50. ??? women. ??? People who are overweight. ??? People who have frequent constipation. What are the signs or symptoms? Symptoms of this condition usually develop in the form of GERD symptoms. Symptoms include: ??? Heartburn. ??? Upset stomach (indigestion). ??? Trouble swallowing. ??? Coughing or wheezing. Wheezing is making high-pitched whistling sounds when you breathe. ??? Sore throat. ??? Chest pain. ??? Nausea and vomiting. How is this diagnosed? This condition may be diagnosed during testing for GERD. Tests that may be done include: ??? X-rays of your stomach or chest. ??? An upper gastrointestinal (GI) series. This is an X-ray exam of your GI tract that is taken after you swallow a chalky liquid that shows up clearly on the X-ray. ??? Endoscopy. This is a procedure to look into your stomach using a thin, flexible tube that has atiny camera and light on the end of it. How is this treated? This condition may be treated by: ??? Dietary and lifestyle changes to help reduce GERD symptoms. ??? Medicines. These may include: ? Tpsm-awm-ixvwjbu antacids. ? Medicines that make your stomach empty more quickly. ? Medicines that block the production of st (more content not included)...[facility]09-22-2025 NoteProgress Note-Physician Patient: MARY VICK Age: 69 years Sex: Female : 1955 Associated Diagnoses: None Author: Renzo Stoner Jr., DO Preoperative Information Anesthesia history: Patient history: No prior anesthetic problems. Informed consent: Signed by patient. Re-evaluation prior to induction: Initial evaluation reviewed: No significant change. Review of Systems Respiratory: Negative except as documented in history of present illness. Cardiovascular: Negative except as documented in history of present illness. Health Status Allergies: Allergic Reactions (Selected) Severity Not Documented Imitrex- Patient reported problems., Allergies (1) Active Severity Reaction Imitrex Patient reported problems Current medications: (Selected) Inpatient Medications Ordered Lactated Ringers IV Emerita 1000 mL 1,000 mL: 1,000 mL, IV, 100 mL/hr, Routine, Start date 02/11/25 8:58:00 EDT, 10 hour(s), Total volume (mL): 1,000, 81.9 kg, 1.89, m2 Sodium Chloride 0.9% IV Emerita 1000 mL 1,000 mL: 1,000 mL, IV, 20 mL/hr, Routine, Start date 02/11/25 6:36:00 EDT, 50 hour(s), Total volume (mL): 1,000, 81.9 kg, 1.89, m2 Documented Medications Documented Abilify 30 mg oral tablet: 30 mg = 1 tab(s), Oral, Daily, Refills(s) 0, Depression Farxiga 10 mg oral tablet: mg tab(s), Oral, Daily, Refills(s) 0, Blood glucose Klor-Con: Oral, Daily, Refills(s) 0, Prophylaxis Prilosec OTC: 20 mg, Oral, BID, Refills(s) 0, Control of stomach acid Prozac 20 mg Cap: 80 mg = 4 cap(s), Oral, Daily, Refills(s) 0, Anxiety Requip: Oral, Once a day (at bedtime), Refills(s) 0, Other (see comment) Robaxin-750 oral tablet: mg tab(s), Oral, TID, Refills(s) 0, Muscle pain Zestril 40 mg Tab: mg tab(s), Oral, Daily, Refills(s) 0, High blood pressure busPIRone 10 mg Tab: mg tab(s), Oral, BID, Refills(s) 0, Anxiety diclofenac sodium 50 mg Oral EC Tab: 50 mg = 1 tab(s), Oral, BID, Refills(s) 0, Pain levothyroxine 50 mcg (0.05 mg) Tab: 50 mcg = 1 tab(s), Oral, Daily, Refills(s) 0, Thyroid, Home Medications (11) Active Abilify 30 mg oral tablet 30 mg = 1 tab(s), Oral, Daily busPIRone 10 mg Tab , Oral, BID diclofenac sodium 50 mg Oral EC Tab 50 mg = 1 tab(s), Oral, BID Farxiga 10 mg oral tablet , Oral, Daily Klor-Con , Oral, Daily levothyroxine 50 mcg (0.05 mg) Tab 50 mcg = 1 tab(s), Oral, Daily Prilosec OTC 20 mg, Oral, BID Prozac 20 mg Cap 80 mg = 4 cap(s), Oral, Daily Requip , Oral, Once a day (at bedtime) Robaxin-750 oral tablet , Oral, TID Zestril 40 mg Tab , Oral, Daily , Medications (2) Active Scheduled: (0) Continuous: (2) Lactated Ringers 1,000 mL 1,000 mL, IV, 100 mL/hr Sodium Chloride 0.9% 1,000 mL 1,000 mL, IV, 20 mL/hr PRN: (0) Problem list: All Problems Anxiety / SNOMED CT 63040512 / Confirmed Bipolar I disorder / SNOMED CT 4949084661 / Confirmed BMI 35.0-35.9,adult / SNOMED CT 481204348 / Confirmed Chronic obstructive pulmonary disease / SNOMED CT 392316521 / Confirmed Class 3 obesity / SNOMED CT 4026032662 / Confirmed Continuous opioid dependence / SNOMED CT 739472809 / Confirmed Diverticulosis / SNOMED CT 0970311436 / Confirmed Gastroesophageal reflux disease / SNOMED CT 463480349 / Confirmed Hearing loss / SNOMED CT 50289892 / Confirmed Hiatal hernia / SNOMED CT 122189982 / Confirmed Hypercholesterolemia / SNOMED CT 60543099 / Confirmed Hypertension / SNOMED CT 3604514969 / Confirmed Hypothyroidism / SNOMED CT 75809927 / Confirmed Lumbar radiculopathy / SNOMED CT 692514194 / Confirmed Migraine / SNOMED CT 64888700 / Confirmed Osteoporosis / SNOMED CT 038427408 / Confirmed Pulmonary hypertension / SNOMED CT 685247470 / Confirmed Restless leg syndrome / SNOMED CT 28856612 / Confirmed Screening for malignant neoplasm of colon / SNOMED CT 520323401 / Confirmed Sleep apnea / SNOMED CT 538467231 / Confirmed SVT (supraventricular tachycardia) / SNOMED CT 20249975 / Confirmed Weight loss / SNOMED CT 045375670 / Confirmed Histories Past Medical History: No active or resolved past medical history items have been selected or recorded. Procedure history: Colonoscopy ([id number]) on 04/25/2024 at 68 Years. Colonoscopy ([id number]) on 03/14/2013 at 57 Years. Tubal ligation (396911611). Appendectomy (978165385). Cataract extraction (71504367). Mandible (018511203). ARIES BSO - Total abdominal hysterectomy and bilateral salpingo-oophorectomy (2689306745). Blepharoplasty (139623087). Dilation and curettage (99429741). Dilation and curettage (91406268). Social History Social & Psychosocial Habits Alcohol 01/31/2025 Risk Assessment: Denies Alcohol Use Substance Abuse 01/31/2025 Risk Assessment: Denies Substance Abuse Tobacco 01/31/2025 Tobacco Use: Former smoker, quit more Smokeless tobacco use: Never Type: Cigarettes Tobacco use per day: 1.5 Started at age: 13.0 Years Stopped at age: 66 Years . Physical Examinat (more content not included)...[facility] Comment on above:Result Comment: Electronically Signed By: Renzo Stoner Jr., DO.nigel\Date and Time Signed: 02/11/25 09:21 [id number] Telephone encounter Note* Telephone Encounter - Beatrice Reyes MA - 01/29/2025 8:12 AM EDT Mary called stating that the Breztri is 122.00 wanted to know if she could get some more samples. I let her know we will get them together for her she can pick them up this afternoon. She understood. NOMS [id number] Miscellaneous Notes* Telephone Encounter - Beatrice Reyes MA - 01/29/2025 8:12 AM EDT Mary called stating that the Breztri is 122.00 wanted to know if she could get some more samples. I let her know we will get them together for her she can pick them up this afternoon. She understood. documented in this encounterParkland Health [id number] History of Present illness Narrative* Rosalba Ac, - 01/24/2025 10:15 AM EDT Images from the original note were not included. Mary Vick presents today for evaluation in regards to COPD and shortness of breath. She wasreferred by her primary care provider. She had been seen by Pulmonary in the past in [place]. She is here to establish care. She [...] office visit. She does still note some shor tness of breath with exertion but this has [...] on Trelegy in the past by the [facility]. However she states that this did not [...] 10 mg in the evening.Take before meals. Dgsyybo-Pqxsmpljnku-Mpzlptqlxl (Breztri Aerosphere) 160-9-4.8 MCG/ACT aerosol Inhale 2 [...] COPD. Rosalba Ac DO documented in this encounterParkland Health [id number] NoteC[facility] Chief Complaint: Patient [...] mouth in the morning., Disp: , Rfl: mogbisghze-cworexlhgvdrz-lhkl 50-325-40 mg tablet, Take 1 tablet by [...] No atrial fibrillation Episodes (more content not included)...[facility] 03-20-2024 NoteGeneral Surgery Office/Clinic Note Chief Complaint consultation for colonoscopy HPI Staff 68 year old female presents on consultation from Dr. Umana for screening colonoscopy. Denies abdominal or rectal pain. No rectal bleeding or change in bowel habits. Denies nausea or vomiting. No unexplained weight loss. Last colonoscopy completed 02/2013 with diverticulosis. No known family history of colon cancer. History of Present Illness 68 yo female with h/o htn, hypercholesterolemia, COPD, hypothyroidism, COPD, bipolar d/o, pulmonaryhtn, SVT, CONNIE, GERD, migraines, lumbar radiculopathy, referred for colorectal screening; denies change in bms or blood in stools; last colonoscopy 2012 with diverticulosis; abd operations significantfor appendectomy, tubal ligation, and ARIES with bso; [...] swallowing difficulties, no hearing loss, no ear infection(s),no nose bleeds. Cardiovascular: normal blood pressure, no [...] mg= 1 tab(s), Or (more content not included)...[facility]ighComment on above:Result Comment: Electronically Signed By: SHASHA GRANT, Anderson Quick\Date and Time Signed: 03/20/24 16:53 [id number] Note CONSULTATION PROCEDURE DATE: 07/08/2022 HISTORY OF [...] be seen in the clinic in three months.[facility] [id number] Note CONSULTATION CONSULTATION DATE: 06/24/2022 HISTORY OF PRESENT ILLNESS: This is a 66-year-old female who returns to the clinic for a three month follow up for knee and hip pain. She was last seen on 04/08/2022 which, at that time, she was having some improvement to her knees and her hip. Patient stands for long hours at a time, as she works at [employer]. Current medications include Percocet 5/325 daily, diclofenac [...] be seen pending approval for her knee injections.[facility] 04-08-2022 NoteCONSULTATION CONSULTATION DATE: 04/08/2022 HISTORY OF PRESENT ILLNESS: [...] office in three months' time unless otherwise indicated.[facility] [id number] NoteCONSULTATION CONSULTATION DATE: 03/09/2022 CHIEF COMPLAINT: Bilateral knee [...] would like to proceed. CC: Natividad Silva [facility]09-08-2022 NoteCONSULTATION CONSULTATION DATE: 01/30/2022 HISTORY OF PRESENT ILLNESS: [...] x-ray review and re-evaluation of her bursa injection.[facility] [id number] NoteCONSULTATION PROCEDURE DATE: 01/30/2022 PREOPERATIVE DIAGNOSIS: Left greater [...] She will be followed up in the clinic.[facility] [id number] NotePROCEDURE: XR HIPS LUANA 3_4V WO PELVIS HISTORY: Low back pain [...] Electronically authenticated by: RAUDEL ESTRADA Date: 2021-11-12 07:50[facility] [id number] NoteCONSULTATION PROCEDURE DATE:11/05/2021 PREOPERATIVE DIAGNOSIS: Bilateral greater trochanteric [...] will be followed up in the office. PSYCHIATRIC Signed and Approved by: JOEL RAMON . 11/18/2021 16:24:00[facility] [id number] NoteCONSULTATION CONSULTATION DATE: 11/05/2021 HISTORY OF PRESENT ILLNESS: [...] time, was working half a day at [employer] and since then has increased to full [...] in three months' time unless otherwise indicated. PSYCHIATRIC Signed and Approved by: JOEL RAMON . 11/18/2021 16:24:00[facility] No data available for this section [facility] Evaluation + Plan note Future Appointments Appointment Date:02/11/2025 09:15:00 AM Scheduled Provider: Location:[facility] Appointment Type:Surgery [facility] Evaluation noteNo assessment information available [facility] Work Phone: Evaluation note* Diagnosis Chronic obstructive pulmonary disease, unspecified COPD type (HCC)- Primary [facility] No data available for this section [facility] [place] Progress note No data available for this section [facility] [place] Reason for referral (narrative)No reason for referral information availableB[facility] Work Phone: Summary Purpose Family History No Family History Records Found Relationship Condition Age at Onset Recorded Date/T alan father Unknown motherDeceasedUnknownMalignant neoplasmUnknownsisterMalignant neoplasmUnknown DeceasedUnknown Advance Directives No Advanced Directives Records Found Advance Directive Response Recorded Date/ Time Advance Directives No April 5:54pm Chief Complaint and Reason for Visit Chief Complaint Admit Date J44.1 December 10, 2024 12:2 1pm Additional Source Comments INFORMATION SOURCE (unrecogn ized section and content) DATE CREATED AUTHOR 12/21/2017 [facility] DATE CREATED AUTHOR AUTHOR'S ORGANIZ ATION 05/01/2018 [facility] DATE CREATED AUTHOR AUTHOR'S ORGANIZ ATION 10/06/2022 [facility] DATE CREATED AUTHOR AUTHOR'S ORGANIZ ATION 10/29/2024 [facility] DATE CREATED AUTHOR AUTHOR'S ORGANIZ ATION 12/26/2024 [facility] DATE CREATED AUTHOR AUTHOR'S ORGANIZ ATION 01/26/2025 [facility] DATE CREATED AUTHOR AUTHOR'S ORGANIZ ATION 02/12/2025 [facility] DATE CREATED AUTHOR AUTHOR'S ORGANIZ ATION 02/23/2025 [facility] DATE CREATED AUTHOR AUTHOR'S ORGANIZ ATION 03/01/2025 [facility] DATE CREATED AUTHOR AUTHOR'S ORGANIZ ATION 03/02/2025 [facility] DATE CREATED AUTHOR AUTHOR'S ORGANIZ ATION 03/05/2025 [facility] Care Teams (unrecognized sec tion and content) Team Status: Inactive Member Role Status Dates SILVA Johnson Attending Provider Active Team Status: Active Member Role Status Dates THOMAS Anderson Primary Care Provider Active Team Status: Active Member Role Status Dates THOMAS Anderson Primary Care Provider Active Start: December 10, 2024 Lorenzo Anderson ProviderActiveStart: December 10, 2024 Dima Barahona MDAttallen ProviderActiveStart: December 10, 2024 Team MemberRelationshipSpecialtyStart DateEnd Natividad Silva MD [address] [place] [id number] Referring PhysicianFamily Medicine01/24/25Team MemberRelationshipSpecialtyStart DateEnd Date Natividad Silva MD [address] [place] [id number] Referring PhysicianFami Medicine01/24/25 Goals (unrecognized section and content) Goals may [...] BE BASED ON THE PRIMARY CLINICAL RECORDS. [facility]. provides no warranty or guarantee of the accuracy or completeness of information in this document.
[2025-03-15 09:58] LABS: Anion Gap 18.5; Blood Urea Nitrogen 17.0 mg/dL (7.0-18.0); Calcium 8.9 mg/dL (8.5-10.1); Carbon Dioxide 21.5 mmol/L (21.0-32.0); Chloride 102 mmol/L (98-107); Estimated GFR (African America >60 (>=60 mL/min/1.73m^2); Estimated GFR (Non-African Ame 53 (>=60 mL/min/1.73m^2); Glucose 124 mg/dL (74-106); Potassium 4.0 mmol/L (3.5-5.1); Sodium 138 mmol/L (136-145)
== END 2025-03-15 08:37 | disposition home or self-care (01) ==
LOC: LAB 08:37
PROVIDERS: PCP Nurse Practitioner Family
DX: I11.0 Hypertensive heart disease with heart failure (principal)
CPT/HCPCS: 36415; 80048

== ENCOUNTER 2025-03-15 08:40 | Outpatient (OUT) | payer MEDICARE, SELFPAY ==
--- NOTE | 2025-03-15 08:44 | MM_ITS ---
Patient Name: MELANIE TOMPKINS MR#: [id number] : 1955 Exam Date: 03/15/2025 Ordering Doctor: POLO SILVA CNP RADIOLOGY REPORT PROCEDURE: MM TOMOSYNTHESIS SCREENING BI COMPARISON: MM TOMOSYNTHESIS SCREENING BI, 02/21/2024. MG MAMM SCREEN LUANA W CAD, 03/04/2020. MG MAMM LUANA SCRN W CAD DIG, 02/12/2013. INDICATIONS: screening Calculator Name NCI Breast Cancer Risk Assessment Tool 5 Year Breast Cancer Risk 3.60% Lifetime Breast Cancer Risk 9.60% Personal Breast Cancer No Personal Ovarian Cancer No Treatments None Family Cancers Mother with breast cancer at age 47; Mother with lung cancer at age 59; Sister with lung,brain cancer at age 43. LOCATION: [facility] BREAST COMPOSITION: There are scattered areas of fibroglandular density. FINDINGS: RIGHT BREAST: No significant suspicious finding. Benign-appearing calcifications are present. Similar focal asymmetries are noted. LEFT BREAST: No significant suspicious finding. Benign-appearing calcifications are present. Similar focal asymmetries are noted. DIAGNOSTIC CATEGORY 2--BENIGN FINDING. NO CHANGE FROM COMPARISON. RECOMMENDATIONS: ROUTINE MAMMOGRAM AND CLINICAL EVALUATION IN 12 MONTHS. Dictated by: Matteo Gandara MD on 03/15/2025 at 13:02 Approved by: Matteo Gandara MD on 03/15/2025 at 13:42
--- OUTSIDE RECORDS SUMMARY | 2025-03-15 08:51 | XMS_ITS | CCD ---
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 salpingo-oophorectomy (8226979500). Blepharoplasty (545418623). Dilation and curettage (80171372). Dilation and curettage (69776921). Physical Examination Vital Signs (last 24 hrs) [...] Soft, NTND Impression and Plan Diagnosis: HH -EGDNUC [facility] HospitalComment on above:Result Comment: Electronically Signed By: Negrito Wilkinson MD\.br\Date and Time Signed: 02/11/2509:46 EDTMain OR PACU I Recordon 18-26-2323Hfwk OR PACU I RecordMain OR PACU I Record PACU Phase I Document Type FT Summary Primary Physician: Negrito Wilkinson MD Finalized Date/Time: 02/11/25 10:51:51 Pt. Name: NICANORMARY/Sex: 1955 Female Med Rec #: [id number] Physician: Negrito Wilkinson MD Financial #: [id number] Pt. Type: O Room/Bed: / Admit/Disch: 02/11/25 [...] Acuity Level I Last Modified By: Denisse Giodrano RN 02/11/25 10:51:50 Finalized By: Denisse Giordano RN Document Signatures Signed By: Denisse Giordano RN 02/11/25 10:51[facility] Preoperative Recordon 50-97-9674Gpnz OR Preoperative RecordMain OR Preoperative Record Holding Area Document Type FT Summary Primary Physician: Negrito Wilkinson MD Finalized Date/Time: 02/11/25 08:28:47 Pt. Name: NICANORMARY/Sex: 1955 Female Med Rec #: [id number] Physician: Negrito Wilkinson MD Financial #: [id number] Pt. Type: O Room/Bed: / Admit/Disch: 02/11/25 [...] below for reason Last Modified By: Lorelei David RN 02/11/25 08:28:44 Finalized By: Lorelei David RN Document Signatures Signed By: Lorelei David RN 02/11/25 08:28[facility]36on [id number] lab results from : MD Oumou Martinez [...] Tuesday and again on Tuesday. Orders sent. [facility]on 01-[facility]25 Ambulatory Visit SummaryAmbulatory [...] signed up for this yet, please contact [facility] at [phone] to get signed up today. Language Information Language assistance services are available as needed. [facility] Office/Clinic Noteon 18-66-3953Gzumsidcbpvbcrrd Office/Clinic NoteGastroenterology Office/Clinic Note Chief Complaint ref by sara for [facility] Staff NEW, 69 year old female who [...] mg daily Obtain CT scan report [facility] Obtain EGD to evaluate hiatal hernia and [...] Primary malignant neoplasm of lung: Mother and Sister.[facility] LimaComment on above:Result Comment: Electronically Signed By: Jaja GRANT, Negrito Cruz\.br\Date and Time Signed: 01/31/2510:08 EDTOffice Visiton 01-16-2025 Follow-up [id number] Mary Vick 1955 F Date Provider Department Center 01/16/2025 Shabbir-MARVIN SAENZ [facility] Family History Problem Relation Age of Onset Cancer Mother Cancer Sister Family Status - Relation Status Age at Mother Father Sister Level of Service:[address] [place] OFFICE/OUTPATIENT ESTABLISHED MOD MDM 30 [facility]on [facility]-2024 Ambulatory Visit SummaryAmbulatory Visit Summary MARY VICK :1955 Visit Date:03/20/2024 Ambulatory Visit Instructions Your Care Team Attending Physician - HSASHA GRANT, Anderson Wiley Primary Care Physician - Luisito Umana MD Referring Physician - Luisito Umana MD This Is [...] you for choosing us for your care. [facility] LimaBNPon 54-49-1323Payheficzrt peptide B (Bld) [Mass/Vol]261.0 pg/mLNormal<=900.0The [facility] DaytonComment on above:Performed By: #### BNP, HSTROPN, CMP #### [facility] [address] [address] [address] Deborah Cordova AUTO DIFFon 91-58-3878DHMJ #0.1 103/ulNormal0.0-0.1The [facility] DaytonComment on above:Performed By: #### CBC ####[facility] [address] [address]Dr.Yilan MohanBasophils/100 WBC (Bld)0.8 %Normal0.2-2.0The [facility] DaytonComment on above:Performed By: #### CBC ####[facility] [address] [address] ChangEO #0.2 103/ulNormal0.0-0.7The Sawyer HospitalComment on above:Performed By: #### CBC ####[facility] N[address] [place], [place] [address]Dr.Deborah ChangEosinophils/100 WBC (Bld)2.6 %Normal 0.9-7.0The [facility] DaytonComment on above:Performed By: #### CBC ####[facility] Xupjjcrysq[address] [place], [place] [address]Dr.Deborah Mohan Erythrocyte distribution width (RBC) [Ratio]20.5 %Critically high11.0-15.0The [facility] HospitalComment on above:Performed By: #### CBC ####[facility] [address]pmudobort[address] [place], [place] [address]Dr.Ann-Mariemich ChangHematocrit (Bld) [Volume fraction]30.1 %Critically low36.0-48.0The [facility] HospitalComment on above:Performed By: #### CBC ####[facility] Efieemznaq[address] [place], [place] [address]Dr.Deborah ChangHemoglobin (Bld) [Mass/Vol]9.2 g/dL Critically low12.0-16.0The [facility] HospitalComment on above:Performed By: #### CBC ####[facility] Qkjwhepwyi[address] [place], [place] [address]Dr. Ann-Mariemich ChangIG #0.05 10e3/ulCritically high0.00-0.03The [facility] DaytonComment on above:Performed By: #### CBC ####[facility] Yiwpydikxj[address] [place], [place] [address]Dr.Deborah ChangIG %0.6 %Critically high0.0-0.5The [facility] HospitalComment on above:Performed By: #### CBC ####[facility] U[address]ygqdhrt[address] [place], [place] [address]Dr.Deborah ChangLYMPH #2.0 103/ulNormal1.2-3.8The [facility] DaytonComment on above:Performed By: #### CBC ####[facility] Inmnjvkdvc[address] [place], [place] [address]Dr. Ann-Mariemich ChangLymphocytes/100 WBC (Bld)25.9 %Vqdicg96.5-60.0The [facility] Comment on above:Performed By: #### CBC ####[facility] G[address]qdkwbit[address] [place], [place] [address]DrDaphne MohanMANUAL DIFF REQNONormalThe [facility] DaytonComment on above:Performed By: #### CBC ####[facility] [address]stv[address]wj[address] [place], [place] [address]Dr.Deborah MohanH (RBC) [Entitic mass]25.7 pgCritically low26.7-34.0The [facility] DaytonComment on above:Performed By: #### CBC ####[facility] Fczetnvnfv[address] [place], [place] [address]Dr.Deborah MohanHC (RBC) [Mass/Vol]30.6 g/dLNormal 29.9-35.2The [facility] DaytonComment on above:Performed By: #### CBC ####[facility] Ebuoeqsfyr[address] [place], [place] [address]Dr. Deborah MohanV (RBC) [Entitic vol]84.1 iKBhoqiw54.0-99.0The [facility] Comment on above:Performed By: #### CBC ####[facility] Istpzonvdm[address] [place], [place] [address]DrDaphne MorfinO #0.4 103/ulNormal0.3-0.8 The [facility] DaytonComment on above:Performed By: #### CBC ####[facility] Yjnwkdxbmo[address] [place], [place] [address]DrDaphne Mohan Monocytes/100 WBC (Bld)5.6 %Normal1.7-12.0The [facility] DaytonComment on above: Performed By: #### CBC ####[facility] Dhpauqfeni[address] [place], [place] [address]DrDaphne GormanUT #5.0 103/ulNormal1.4-6.5The [facility] DaytonComment on above:Performed By: #### CBC ####[facility] Kptarqdqhy[address] [place], [place] [address]Dr.Yilan ChangNeutrophils/100 WBC (Bld)64.5 %Pwnrry61.0-75.0The [facility] DaytonComment on above:Performed By: #### CBC ####[facility] [address] [address]Dr.Deborah MohanPlatelet mean volume (Bld) [Entitic vol]9.7 fLNormal9.5-13.5 The [facility] DaytonComment on above:Performed By: #### CBC ####[facility] [address] [address]Dr.Deborah MohanPLT368 103/vmKorked122-791Qvm [facility] DaytonComment on above:Performed By: #### CBC ####[facility] [address] [address]Dr. Deborah MohanRBC3.58 106/ulCritically low4.20-5.40The [facility] DaytonComment on above:Performed By: #### CBC ####[facility] [address] [address]Dr.Deborah MohanWBC7.7 103/ulNormal4.0-11.0The [facility] DaytonComment on above:Performed By: #### CBC ####[facility] [address]brjpwakja[address] [place], [place] [address]Dr.Deborah MohanCTA CHEST WO W CONon 12-89-7342JIX CHEST WO W CONEXAMINATION: CTA CHEST WO [...] Electronically authenticated by: ROBERT CONDON Date: 2022-09-17 13:18[facility] HospitalD-DIMERon 16-00-5235K-DIMER1.31 mg/L FEUCritically high<=0.59 The [facility] DaytonComment on above:Performed By: #### ANARF #### [facility] [address] [place] [address] Dr. Deborah Klein-DIMER COMMENTSSEE BELOWOhioHealth Grove City Methodist Hospital on above:Result Comment: Increases in D-Dimer concentration [...] generalized hospitalization. Performed By: #### ANARF #### [facility] [address] [place] [address] Dr. Deborah MohanPROF 14(COMP METB)on 54-68-6746Gnutvbw [Mass/Vol]3.3 g/dL Critically low3.4-5.0The [facility] on above:Performed By: #### BNP, HSTROPN, CMP #### [facility] [address] [place] [address] Dr. Deborah MohanAlbumin/Globulin [Mass ratio]1.0 {ratio}NormalThe [facility] on above:Performed By: #### BNP, HSTROPN, CMP #### [facility] [address] [place] [address] Dr. Deborah MohanALP [Catalytic activity/Vol]57 U/BCwguml76-394Yaq Sawyer HospitalComment on above:Performed By: #### BNP, HSTROPN, CMP #### [facility] [address] [address] [address] Deborah Chacon [Catalytic activity/Vol]23 U/UJdregl21-21Suw [facility] DaytonComment on above:Performed By: #### BNP, HSTROPN, CMP #### [facility] [address] [place] [address] Dr. Deborah MohanAnion gap [Moles/Vol]9.2 mmol/LNormalThe [facility] DaytonComment on above:Performed By: #### BNP, HSTROPN, CMP #### [facility] [address] [place] [address] Dr. Deborah Al [Catalytic activity/Vol]17 U/OOzwluf83-45Uua [facility] DaytonComment on above:Performed By: #### BNP, HSTROPN, CMP #### [facility] [address] [place] [address] Dr. Deborah MohanBilirubin [Mass/Vol]0.2 mg/dLNormal0.2-1.0[facility] Comment on above:Performed By: #### BNP, HSTROPN, CMP #### [facility] [address] [place] [address] Dr. Deborah MohanCalcium [Mass/Vol]8.9 mg/dLNormal8.5-10.1[facility] Comment on above:Performed By: #### BNP, HSTROPN, CMP #### [facility] [address] [place] [address] Dr. Deborah MohanChloride [Moles/Vol]106 mmol/HRuaqcd23-592Nwz [facility] Comment on above:Performed By: #### BNP, HSTROPN, CMP #### [facility] [address] [place] [address] Dr. Deborah MohanCO2 [Moles/Vol]28.3 mmol/JQvwbca59.0-32.0[facility] Comment on above:Performed By: #### BNP, HSTROPN, CMP #### [facility] [address] [address] [address] Deborah MohanCreatinine [Mass/Vol]0.97 mg/dLNormal0.55-1.02The [facility] DaytonComment on above:Performed By: #### BNP, HSTROPN, CMP #### [facility] [address] [address] [address] Cabrera ChangEGFR-AF CHINESE>60Normal>=60The [facility] DaytonComment on above:Performed By: #### BNP, HSTROPN, CMP #### [facility] [address] [place] [address] Dr. Deborah OrdoñezGFR-NON AF OXIXBRVD34 mL/min/1.40y7Rbiqbuownz low>=60The [facility] DaytonComment on above:Performed By: #### BNP, HSTROPN, CMP #### [facility] [address] [place] [address] Dr. Deborah MohanGlobulin (S) [Mass/Vol]3.4 g/dLNormalThe [facility] DaytonComment on above:Performed By: #### BNP, HSTROPN, CMP #### [facility] [address] [place] [address] Dr. Deborah MohanGlucose [Mass/Vol]103 mg/rYOyngzt43-403HkiAdena [facility] Comment on above:Performed By: #### BNP, HSTROPN, CMP #### [facility] [address] [place] [address] Dr. Deborah MohanPotassium [Moles/Vol]3.5 mmol/LNormal3.5-5.1The [facility] Comment on above:Performed By: #### BNP, HSTROPN, CMP #### [facility] [address] [place] [address] Dr. Deborah MohanProtein [Mass/Vol]6.7 g/dLNormal6.4-8.2The [facility] Comment on above:Performed By: #### BNP, HSTROPN, CMP #### [facility] [address] [place] [address] Dr. Deborah MohanSodium [Moles/Vol]140 mmol/DKfjyzl319-998Ezo [facility] Comment on above:Performed By: #### BNP, HSTROPN, CMP #### [facility] [address] [address] [address] Deborah Alvarado nitrogen [Mass/Vol]21.0 mg/dLCritically high7.0-18.0The [facility] DaytonComment on above:Performed By: #### BNP, HSTROPN, CMP #### [facility] [address] [address] [address] Deborah Alvarado nitrogen/Creatinine [Mass ratio]21.6 mg/mgNoOur Lady of Mercy HospitalComment on above:Performed By: #### BNP, HSTROPN, CMP #### [facility] [address] [place] [address] Dr. Deborah Lovett, HIGH SENSITIVITYon 90-14-3541NFGHYQ2.0 pg/mLNormal 4.0-51.3The [facility] DaytonComment on above:Result Comment: CUT-OFF POINTS HAVE BEEN ESTABLISHED BASED ON THE FOURTH UNIVERSAL DEFINITIONS OF MYOCARDIAL INFARCTION. THE UPPER REFERENCE LIMIT (URL) OF TROPONIN, DEFINED THE 99TH PERCENTILE OF cTnI DISTRIBUTION IN A REFERENCE POPULATION, HAS BEEN CONFIRMED THE DECISION THRESHOLD FOR CT DIAGNOSIS.Performed By: #### BNP, HSTROPN, CMP #### [facility] [address] [place] [address] Dr. Deborah Stokes FREDA DOP LEG BILon 77-78-6609EG FREDA DOP LEG BILEXAM: US FREDA DOP [...] Electronically authenticated by: RAFIQ RON Date: 2022-09-17 11:54NoOur Lady of Mercy HospitalXR CHEST 1 Von 43-11-9479CI CHEST 1 VEXAMINATION: XR CHEST 1 V [...] authenticated by: ROBERT CONDON Date: 2022-09-17 11:36NormalThe [facility] HospitalYMPTOMATIC COVID-19 ANTIGENon 58-64-7066DRE StatementSEE BELOW NormalThe [facility] DaytonComment on above:Result Comment: This test has not [...] is revoked sooner.Performed By: #### ANARF #### [facility] [address] [place] [address] Dr. Deborah Sotelo-CoV-2 (COVID-19) RNA ERIC+probe Ql (Unsp spec)Positive AbnormalNEGATIVEThe [facility] DaytonComment on above:Performed By: #### ANARF #### [facility] [address] [address] [address] Deborah Armendariz THYROXINE INDEX T7on 04-79-9063JDN7.43Mthlbf4.30-4.50The [facility] DaytonComment on above:Performed By: #### BNP, HSTROPN, CMP #### [facility] [address] [place] [address] Dr. Deborah MohanT3U34.0 %Hcmcwg53.0-39.0The [facility] DaytonComment on above: Performed By: #### BNP, HSTROPN, CMP #### [facility] [address] [place] [address] Dr. Deborah Pettit4 [Mass/Vol]9.70 ug/dLNormal4.80-13.90[facility] Comment on above:Performed By: #### BNP, HSTROPN, CMP #### [facility] [address] [place] [address] Dr. Deborah Hall 49-57-0770Zsyh [Mass/Vol]14.0 ug/dLCritically low 50.0-170.0[facility] CenterComment on above:Performed By: #### IRON ####[facility] [address] [place], [place] [address]Dr. Deborah TavarezHolisa 36-73-1582WGO2.463 uIU/mLNormal0.358-3.740[facility] Comment on above:Performed By: #### ANARF #### [facility] [address] [place] [address] Dr. Deborah Cordova AUTO DIFFon 19-98-9485QXZX #0.1 103/ulNormal0.0-0.1[facility] CenterComment on above:Performed By: #### ANARF #### [facility] [address] [place] [address] Dr. Deborah MohanBasophils/100 WBC (Bld)0.8 %Normal0.2-2.0[facility] Comment on above:Performed By: #### ANARF #### [facility] [address] [place] [address] Dr. Deborah Garcia #0.3 103/ulNormal0.0-0.7The [facility] DaytonComment on above: Performed By: #### ANARF #### [facility] [address] [place] [address] Dr. Deborah Ordoñezosinophils/100 WBC (Bld)2.6 %Normal0.9-7.0The [facility] Comment on above:Performed By: #### ANARF #### [facility] [address] [place] [address] Dr. Deborah Ordoñezrythrocyte distribution width (RBC) [Ratio]19.9 %Critically high 11.0-15.0The [facility] DaytonComment on above:Performed By: #### ANARF #### [facility] [address] [place] [address] Dr. Deborah MohanHematocrit (Bld) [Volume fraction]28.8 %Critically low36.0-48.0 The [facility] HospitalComment on above:Performed By: #### ANARF #### [facility] [address] [place] [address] Dr. Deborah MohanHemoglobin (Bld) [Mass/Vol]8.9 g/dLCritically low12.0-16.0The [facility] DaytonComment on above:Performed By: #### ANARF #### [facility] [address] [place] [address] Dr. Deborah Nguyen #0.07 10e3/ulCritically high0.00-0.03The [facility] Comment on above:Performed By: #### ANARF #### [facility] [address] [place] [address] Dr. Deborah Nguyen %0.7 %Critically high0.0-0.5The [facility] DaytonComment on above:Performed By: #### ANARF #### [facility] [address] [place] [address] Dr. Deborah JewellH #1.9 103/ulNormal1.2-3.8The [facility] DaytonComment on above:Performed By: #### ANARF #### [facility] [address] [place] [address] Dr. Deborah Jewellhocytes/100 WBC (Bld)18.2 %Critically low20.5-60.0[facility] CenterComment on above:Performed By: #### ANARF #### [facility] [address] [place] [address] Dr. Yilan ChangMANUAL DIFF REQNONormalThe [facility] DaytonComment on above: Performed By: #### ANARF #### [facility] [address] [place] [address] Dr. Deborah Viveros (RBC) [Entitic mass]25.3 pgCritically low26.7-34.0The [facility] DaytonComment on above:Performed By: #### ANARF #### [facility] [address] [place] [address] Dr. Deborah Viveros (RBC) [Mass/Vol]30.9 g/xEYmmocs17.9-35.2The [facility] DaytonComment on above:Performed By: #### ANARF #### [facility] [address] [place] [address] Dr. Deborah Viveros (RBC) [Entitic vol]81.8 aZMemwks75.0-99.0The [facility] DaytonComment on above:Performed By: #### ANARF #### [facility] [address] [place] [address] Dr. Deborah Merida #0.7 103/ulNormal0.3-0.8The [facility] DaytonComment on above:Performed By: #### ANARF #### [facility] [address] [place] [address] Dr. Deborah Morfinocytes/100 WBC (Bld)7.1 %Normal1.7-12.0[facility] Comment on above:Performed By: #### ANARF #### [facility] [address] [place] [address] Dr. Deborah Flower #7.4 103/ulCritically high1.4-6.5The [facility] Comment on above:Performed By: #### ANARF #### [facility] [address] [place] [address] Dr. Deborah Gormanutrophils/100 WBC (Bld)70.6 %Uxdijn30.0-75.0The [facility] DaytonComment on above:Performed By: #### ANARF #### [facility] [address] [place] [address] Dr. Deborah Brittlet mean volume (Bld) [Entitic vol]9.7 fLNormal9.5-13.5The [facility] DaytonComment on above:Performed By: #### ANARF #### [facility] [address] [address] [address] Deborah MohanPLT398 103/qeUxfeek870-940Umz [facility] DaytonComment on above: Performed By: #### ANARF #### [facility] [address] [address] [address] Deborah MohanRBC3.52 106/ulCritically low4.20-5.40The [facility] DaytonComment on above:Performed By: #### ANARF #### [facility] [address] [address] [address] Deborah MohanWBC10.5 103/ulNormal4.0-11.0The [facility] DaytonComment on above:Performed By: #### ANARF #### [facility] [address] [address] [address] Deborah MohanPROF 14(COMP METB)on 95-26-3010Cpyhvjq [Mass/Vol]3.2 g/dL Critically low3.4-5.0The [facility] DaytonComment on above:Performed By: #### HSTRMICHOACANO, CMP ####[facility] [address] [place], [place] [address]XeDr. Deborah MohanAlbumin/Globulin [Mass ratio]0.9 {ratio}NormalThe [facility] DaytonCommary [facility] bed [facility] on above:Performed By: #### HSTROPN, CMP ####[facility] [address] [place], [place]Dr. Deborah MohanALP [Catalytic activity/Vol]89 U/BWqynvo62-087Qks [facility] DaytonCommary [facility] on above:Performed By: #### HSTROPN, CMP ####[facility] [address] [place], [place]Dr. Deborah MohanALT [Catalytic activity/Vol]17 U/LNormal 14-59The [facility] DaytonComment on above:Performed By: #### HOLLYTRMICHOACANO, CMP ####[facility] [address] [place], [place]Dr. Yilan ChangAnion gap [Moles/Vol]11.2 mmol/LNormalThe [facility] DaytonComment on above:Performed By: #### HSTRMICHOACANO, CMP ####[facility] [address] [place], [place]Dr. Yilan ChangAST [Catalytic activity/Vol]14 U/L Critically muw65-16Hka [facility] DaytonComment on above:Performed By: #### HSTRMICHOACANO, CMP ####[facility] [address] [place], [place] [address]Wt. Yilan ChangBilirubin [Mass/Vol]0.2 mg/dLNormal0.2-1.0The [facility] DaytonComment on above:Performed By: #### HOLLYTRMICHOACANO, CMP ####[facility] [address] [place], [place] [address]Dr. Yilan ChangCalcium [Mass/Vol]9.1 mg/dLNormal8.5-10.1The [facility] DaytonComment on above:Performed By: #### PHILLIP, CMP ####[facility] [address] [place], [place]Dr. Yilan ChangChloride [Moles/Vol]104 mmol/LNormal 98-107The [facility] on above:Performed By: #### HSTRMICHOACANO, CMP ####[facility] [address] [place], [place]Dr. Yilan ChangCO2 [Moles/Vol]24.8 mmol/RRhkdbo51.0-32.0The [facility] DaytonComment on above:Performed By: #### HSTROPLisa, CMP ####[facility] [address] [address]Dr. Yilan ChangCreatinine [Mass/Vol]1.21 mg/dLCritically high0.55-1.02The [facility] DaytonComment on above:Performed By: #### HOLLYTROPN, CMP ####[facility] [address] [place], [place]Dr. Yilan ChangEGFR-AF SHWICRUC93 mL/min/1.73m2 Critically low>=60The [facility] DaytonComment on above:Performed By: #### HSTROPN, CMP ####[facility] [address] [place], [place] [address]Fm. Yilan ChangEGFR-NON AF ESUGPSAS73 mL/min/1.90l2Qkwsbkfigv low>=60The [facility] HospitalComment on above:Performed By: #### HSTROPN, CMP ####[facility] [address] [place], [place]Dr. Yilan Mohan Globulin (S) [Mass/Vol]3.7 g/dLNormalThe [facility] DaytonComment on above: Performed By: #### HSTROPLisa, CMP ####[facility] [address] [place], [place] [address]Dr. Yilan ChangGlucose [Mass/Vol]118 mg/dLCritically vkoi91-562Aho [facility] DaytonComment on above:Performed By: #### HSTROPN, CMP ####[facility] [address] [place], [place] [address]Dr. Yilan ChangPotassium [Moles/Vol]4.0 mmol/LNormal3.5-5.1The [facility] Comment on above:Performed By: #### HSTROPLisa, CMP ####[facility] [address] [place], [place] [id number]. Yilan ChangProtein [Mass/Vol]6.9 g/dLNormal6.4-8.2The [facility]red Hospital DaytonComment on above:Performed By: #### HSTROPN, CMP ####[facility] [address] [place], [place] [address]Dr. Yilan ChangSodium [Moles/Vol]136 mmol/LNormal 136-145The [facility] Hospital DaytonComment on above:Performed By: #### HSTROPN, CMP ####[facility] [address] [place], [place] [id number]. Deborah MohanUrea nitrogen [Mass/Vol]28.0 mg/dLCritically high7.0-18.0The [facility] Hospital DaytonComment on above:Performed By: #### HSTROPN, CMP ####[facility] [address] [place], [place]Dr. Deborah ChangUrea nitrogen/Creatinine [Mass ratio]23.1 mg/mgNoOur Lady of Mercy HospitalComment on above:Performed By: #### HSTROPN, CMP ####[facility] [address] [place], [place]Dr. Deborah MohanTROPONIN, HIGH SENSITIVITYon 32-21-3930RNTMNP9.9 pg/mLNormal4.0-51.3The [facility] DaytonComment on above: Result Comment: CUT-OFF POINTS HAVE BEEN ESTABLISHED BASED ON THE FOURTH UNIVERSAL DEFINITIONS OF MYOCARDIAL INFARCTION. THE UPPER REFERENCE LIMIT (URL) OF TROPONIN, DEFINED THE 99TH PERCENTILE OF cTnI DISTRIBUTION IN A REFERENCE POPULATION, HAS BEEN CONFIRMED THE DECISION THRESHOLD FOR CT DIAGNOSIS.Performed By: #### HSTROPN, CMP ####[facility] [address] [id number]. Deborah MohanXR CHEST 1 Von 07-26-2413RD CHEST 1 VEXAM: XR CHEST 1 V [...] Electronically authenticated by: ANDERSON ALMANZAR Date: 2022-04-07 03:11[facility] HospitalHEMOGLOBINon 05-14-6899Pdrszhsvzj (Bld) [Mass/Vol]9.2 g/dL Critically low12.0-16.0The [facility] Hospital DaytonComment on above:Performed By: #### ANARF #### [facility] [address] [place] [address] Dr. Deborah Enciso NEUTROPHIL CYTOPLASMIC AB (ANCA) PRon 37-27-9523Bofx-MPO Antibodies<0.2Yqoweo1.0-0.9The [facility] Hospital DaytonComment on above:Result Comment: Performed at: BNPerformed By: #### BNP, HSTROPN, CMP #### [facility] [address] [address] [address] Deborah Enciso-PR3 Antibodies<0.7Vlwoxu9.0-0.9The [facility] DaytonComment on above:Result Comment: Performed at: BNPerformed By: #### BNP, HSTROPN, CMP #### [facility] [address] [place] [address] Dr. Deborah MohanAtypical pANCA1:160Critically highNeg:<1:20ThK[facility] Comment on above:Result Comment: The atypical pANCA pattern has been observed in a significant percentage of patients with ulcerative colitis, primary sclerosing cholangitis and autoimmune hepatitis. Performed at: CBPerformed By: #### BNP, HSTROPN, CMP #### [facility] [address] [place] [address] Dr. Deborah MohanCytoplasmic (C-ANCA)<1:20NormalNeg:<1:20ThK[facility] Comment on above:Result Comment: Performed at: CBPerformed By: #### BNP, HSTROPN, CMP #### [facility] [address] [place] [address] Dr. Deborah MohanPerinuclear (P-ANCA)<1:20NormalNeg:<1:20ThK[facility] Health [facility] Comment on above:Result Comment: The presence of positive fluorescence exhibiting P-ANCA or C-ANCA patterns alone is not specific for the diagnosis of Marlin's Granulomatosis (WG) or microscopic polyangiitis. Decisions about treatment should not be based solely on ANCA IFA results. The [employer] ANCA [employer] Consensus recommends follow up testing of positive sera with both NJ-3 and MPO-ANCA enzyme immunoassays. As many as 5% serum samples are positive only by EIA. Ref. AM J Clin Pathol 1999;111:507-513. Performed at: CBPerformed By: #### BNP, HSTROPN, CMP #### [facility] [address] [place], [place] [address] Dr. Deborah MohanANTISCLERODERMA ABon 93-86-9630Mpixwppgvhwaaer-70 Antibodies<0.2 Normal0.0-0.9The [facility] DaytonComment on above:Performed By: #### ANARF #### [facility] [address] [place], [place] [address] Dr. Deborah MohanCT CHEST WO CONon 58-10-3700ZQ CHEST WO CON Begin Addendum #1 Compared [...] and likely incidental findings, as described above.NormalThe [facility] CITRULLINATED PEPTIDE AB (CCP)on 80-09-7631GJU Antibodies IgG/IgA6 unitsNormal0-19The [facility]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 Esophogram with barium contrast PERIPHERAL IV DATA: Not applicable SIGNED BY: RT Carlos Manuel(R) February 28, 2025 1:41 [facility]10-07-2025 NoteProgress Note-Physician Patient: MARY VICK Age: 69 [...] list: All Problems Anxiety / SNOMED CT 42539662 / Confirmed Bipolar I disorder / SNOMED CT 1230478116 / Confirmed BMI 35.0-35.9,adult / SNOMED CT 630113668 / Confirmed Chronic obstructive pulmonary disease / SNOMED CT 784305606 / Confirmed Class 3 obesity / SNOMED CT 6369749593 / Confirmed Continuous opioid dependence / SNOMED CT 502629193 / Confirmed Diverticulosis / SNOMED CT 6485141180 / Confirmed Gastroesophageal reflux disease / SNOMED CT 806167119 / Confirmed Hearing loss / SNOMED CT 37803432 / Confirmed Hiatal hernia / SNOMED CT 042441018 / Confirmed Hypercholesterolemia / SNOMED CT 24279927 / Confirmed Hypertension / SNOMED CT 1260342595 / Confirmed Hypothyroidism / SNOMED CT 75823997 / Confirmed Lumbar radiculopathy / SNOMED CT 817358739 / Confirmed Migraine / SNOMED CT 98597702 / Confirmed Osteoporosis / SNOMED CT 205953903 / Confirmed Pulmonary hypertension / SNOMED CT 896916647 / Confirmed Restless leg syndrome / SNOMED CT 17982811 / Confirmed Screening for malignant neoplasm of colon / SNOMED CT 615771672 / Confirmed Sleep apnea / SNOMED CT 129888577 / Confirmed SVT (supraventricular tachycardia) / SNOMED CT 67626035 / Confirmed Weight loss / SNOMED CT 000756353 / Confirmed, Active Problems (22) Anxiety Bipolar [...] of lung Mother Sister Procedure history: Colonoscopy (941846927) on 04/25/2024 at 68 Years. Colonoscopy (459956430) on 03/14/2013 at 57 Years. Tubal ligation (535376160). Appendectomy (364110672). Cataract extraction (88992678). Mandible (430443349). ARIES BSO - Total abdominal hysterectomy and bilateral salpingo-oophorectomy (3257273811). (more content not included)...[facility] Medical CenterComment on above:Result Comment: duplicate Electronically Signed By: Rafiq Echols MD02-21-2025 NoteHNO ID: [id number] Author: JOO BALES, ? Service: ? Author [...] She will also be seen by her user experience lead for clearance. UGI ordered. Joo Bales MD General SurgeryPromedica Fostoria [facility] Hospital10-02-2025 NoteHNO ID: [id number] Author: ?, ?, ? Service: ? Author [...] Wound: clean AND dry Temperature: No Drains: [facility]09-22-2025 NoteProgress Note-Physician Patient: MARY VICK Age: 69 years Sex: Female : 1955 Associated Diagnoses: None Author: Renzo Stoner Jr., DO Postoperative Information Postoperative disposition: Postoperative disposition: Home. Optimetrix number: Optimetrix number [id number]. Anesthetic utilized: General. Physical Examination Vital Signs [...] to Ambulatory Surgery Unit, and To home ).[facility] HospitalComment on above:Result Comment: Electronically Signed By: Renzo Stoner Jr., DO.nigel\Date and Time Signed: 02/11/25 11:27 [id number] NotePatient Education - Text Gastroenterology Upper Endoscopy, [...] activities are safe for you. ??? Take tekt-lom-usgfksp and prescription medicines only as told by [...] provider. Document Revised: 08/18/2022 Document Reviewed: 08/18/2022 Predict[employer] Patient Education ? 2023 [employer]. Hiatal Hernia A hiatal hernia occurs when [...] symptoms. ??? Medicines. These may include: ? Jaec-why-plaexnd antacids. ? Medicines that make your stomach empty more quickly. ? Medicines that block the production of st (more content not included)...[facility]09-22-2025 NoteProgress Note-Physician Patient: MARY VICK Age: [...] list: All Problems Anxiety / SNOMED CT 92241699 / Confirmed Bipolar I disorder / SNOMED CT 4212268071 / Confirmed BMI 35.0-35.9,adult / SNOMED CT 347445753 / Confirmed Chronic obstructive pulmonary disease / SNOMED CT 217668697 / Confirmed Class 3 obesity / SNOMED CT 5736693301 / Confirmed Continuous opioid dependence / SNOMED CT 338523180 / Confirmed Diverticulosis / SNOMED CT 0262832514 / Confirmed Gastroesophageal reflux disease / SNOMED CT 402950179 / Confirmed Hearing loss / SNOMED CT 66264102 / Confirmed Hiatal hernia / SNOMED CT 141216228 / Confirmed Hypercholesterolemia / SNOMED CT 13478136 / Confirmed Hypertension / SNOMED CT 3083842112 / Confirmed Hypothyroidism / SNOMED CT 19654383 / Confirmed Lumbar radiculopathy / SNOMED CT 344551770 / Confirmed Migraine / SNOMED CT 76601332 / Confirmed Osteoporosis / SNOMED CT 440882909 / Confirmed Pulmonary hypertension / SNOMED CT 359121796 / Confirmed Restless leg syndrome / SNOMED CT 51201018 / Confirmed Screening for malignant neoplasm of colon / SNOMED CT 169835480 / Confirmed Sleep apnea / SNOMED CT 000584795 / Confirmed SVT (supraventricular tachycardia) / SNOMED CT 29793407 / Confirmed Weight loss / SNOMED CT 677910472 / Confirmed Histories Past Medical History: No active or resolved past medical history items have been selected or recorded. Procedure history: Colonoscopy (320824006) on 04/25/2024 at 68 Years. Colonoscopy (253146231) on 03/14/2013 at 57 Years. Tubal ligation (782829168). Appendectomy (655422591). Cataract extraction (10800785). Mandible (835777381). ARIES BSO - Total abdominal hysterectomy and bilateral salpingo-oophorectomy (3129573592). Blepharoplasty (412858947). Dilation and curettage (91310870). Dilation and curettage (65962341). Social History Social & Psychosocial Habits Alcohol 01/31/2025 Risk Assessment: Denies Alcohol Use Substance Abuse 01/31/2025 Risk Assessment: Denies Substance Abuse Tobacco 01/31/2025 Tobacco Use: Former smoker, quit more Smokeless tobacco use: Never Type: Cigarettes Tobacco use per day: 1.5 Started at age: 11.0 Years Stopped at age: 66 Years . Physical Examinat (more content not included)...[facility] Comment on above:Result Comment: Electronically Signed By: Renzo Stoner Jr., DO.nigel\Date and Time Signed: 02/11/25 09:21 [id number] Telephone encounter Note* Telephone Encounter - Beatrice Reyes MA - 01/29/2025 8:12 AM EDT Mary called stating that the Breztri is 122.00 wanted to know if she could get some more samples. I let her know we will get them together for her she can pick them up this afternoon. She understood. [facility] Cdgitqfzel02-34-7725 Miscellaneous Notes* Telephone Encounter - Beatrice Reyes MA - 01/29/2025 8:12 AM EDT Mary called stating that the Breztri is 122.00 wanted to know if she could get some more samples. I let her know we will get them together for her she can pick them up this afternoon. She understood. documented in this encounterSaint Luke's North Hospital–SmithvilleUqxjmmxouy59-98-0521 History of Present illness Narrative* Rosalba Ac, - 01/24/2025 10:15 AM EDT Images from the original note were not included. Mary Vick presents today for evaluation in regards to COPD and shortness of breath. She wasreferred by her primary care provider. She had been seen by Pulmonary in the past in [place]. She is here to establish care. She [...] [facility] Trelegy [facility]. However she states that this did not [...] 10 mg in the evening.Take before meals. Ukwwgrn-Ohsmiknugoe-Lyfylcpyhr (Breztri Aerosphere) 160-9-4.8 MCG/ACT aerosol Inhale 2 [...] COPD. Rosalba Ac DO documented in this encounterSaint Luke's North Hospital–SmithvilleTgzwgxgvfn35-49-6354 [facility]PAR[facility] Chief Complaint: Patient [...] mouth in the morning., Disp: , Rfl: pfoakaakrx-svzuehgzbbfcp-nfrc 50-325-40 mg tablet, Take 1 tablet by [...] No atrial fibrillation Episodes (more content not included)...[facility] 03-20-2024 NoteGeneral Surgery Office/Clinic Note Chief Complaint [...] mg= 1 tab(s), Or (more content not included)...[facility] HospitalComment on above:Result Comment: Electronically Signed By: SHASHA GRANT, Anderson Quick\Date and Time Signed: 03/20/24 16:53 [id number] Note CONSULTATION PROCEDURE DATE: 07/08/2022 HISTORY OF [...] seen in the clinic in three months.[facility] DaytonOsirqnbz68-54-0594 Note CONSULTATION CONSULTATION DATE: 06/24/2022 HISTORY OF PRESENT ILLNESS: This is a 66-year-old female who returns to the clinic for a three month follow up for knee and hip pain. She was last seen on 04/08/2022 which, at that time, she was having some improvement to her knees and her hip. Patient stands for long hours at a time, as she works at [employer]. Current medications include Percocet 5/325 daily, diclofenac [...] seen pending approval for her knee injections.[facility] 04-08-2022 NoteCONSULTATION CONSULTATION DATE: 04/08/2022 HISTORY OF [...] in three months' time unless otherwise indicated.[facility] DaytonZxujzkdk65-96-1823 NoteCONSULTATION CONSULTATION DATE: 03/09/2022 CHIEF COMPLAINT: Bilateral [...] would like to proceed. CC: Natividad Silva [facility]09-08-2022 NoteCONSULTATION CONSULTATION DATE: 01/30/2022 HISTORY OF PRESENT [...] review and re-evaluation of her bursa injection.[facility] DaytonPkibyqym67-22-5712 NoteCONSULTATION PROCEDURE DATE: 01/30/2022 PREOPERATIVE DIAGNOSIS: Left [...] will be followed up in the clinic.[facility] DaytonDynmkzyu68-42-0568 NotePROCEDURE: XR HIPS LUANA 3_4V WO PELVIS [...] authenticated by: RAUDEL ESTRADA Date: 2021-11-12 07:50[facility] DaytonNmsjpmpo56-60-9920 NoteCONSULTATION PROCEDURE DATE:11/05/2021 PREOPERATIVE DIAGNOSIS: Bilateral greater [...] Approved by: JOEL RAMON . 11/18/2021 16:24:00[facility] DaytonPyocbaaj46-35-0351 NoteCONSULTATION CONSULTATION DATE: 11/05/2021 HISTORY OF PRESENT [...] time, was working half a day at [employer] and since then has increased to full [...] and Approved by: JOEL RAMON . 11/18/2021 16:24:00[facility] No data available for this section [facility] Evaluation + Plan note Future Appointments Appointment Date:02/11/2025 09:15:00 AM Scheduled Provider: Location:[facility] Appointment Type:Surgery [facility] Evaluation noteNo assessment information available [facility] Work Phone: Evaluation note* Diagnosis Chronic obstructive pulmonary disease, unspecified COPD type (HCC)- Primary documented in this encounter [facility] Discharge instructions No data available for this section [facility] General Surgery [place] Progress note No data available for this section [facility] [place] Reason for referral (narrative)No reason for referral information availableOhiohealth Dublin [facility] Work Phone: Summary Purpose Family [...] DATE CREATED AUTHOR AUTHOR'S ORGANIZ ATION 05/01/2018 [facility] DATE CREATED AUTHOR AUTHOR'S ORGANIZ ATION 10/06/2022 [facility] DATE CREATED AUTHOR AUTHOR'S ORGANIZ ATION 10/29/2024 [facility] DATE CREATED AUTHOR AUTHOR'S ORGANIZ ATION 12/26/2024 [facility] DATE CREATED AUTHOR AUTHOR'S ORGANIZ ATION 01/26/2025 [facility] DATE CREATED AUTHOR AUTHOR'S ORGANIZ ATION 02/12/2025 [facility] DATE CREATED AUTHOR AUTHOR'S ORGANIZ ATION 02/23/2025 [facility] DATE CREATED AUTHOR AUTHOR'S ORGANIZ ATION 03/01/2025 [facility] DATE CREATED AUTHOR AUTHOR'S ORGANIZ ATION 03/02/2025 [facility] DATE CREATED AUTHOR AUTHOR'S ORGANIZ ATION 03/05/[address] [facility] Care Teams (unrecognized sec tion and [...] 2024 Team MemberRelationshipSpecialtyStart DateEnd Natividad Silva MD [address] [place] [address] Referring PhysicianFamily Medicine01/24/25Team MemberRelationshipSpecialtyStart DateEnd Date Natividad Silva MD [address] [place] [address] Referring PhysicianFami Medicine01/24/25 Goals (unrecognized section and [...] BE BASED ON THE PRIMARY CLINICAL RECORDS. [facility]. provides no warranty or guarantee of the accuracy or completeness of information in this document.
== END 2025-03-15 08:41 | disposition home or self-care (01) ==
LOC: MAMMO 08:41
PROVIDERS: PCP Nurse Practitioner Family; Visit Provider Nurse Practitioner Family
DX: Z12.31 Encounter for screening mammogram for malignant neoplasm of breast (principal); Z80.3 Family history of malignant neoplasm of breast; Z80.1 Family history of malignant neoplasm of trachea, bronchus and lung; Z80.8 Family history of malignant neoplasm of other organs or systems
CPT/HCPCS: 77063; 77067

== ENCOUNTER 2025-03-28 07:50 | Outpatient (OUT) | payer MEDICARE, SELFPAY ==
--- OUTSIDE RECORDS SUMMARY | 2024-12-14 04:20 | XMS_ITS ---
Author Organization [facility] Address [address] [place] [address] Care Team Providers Care Health And Safety Advisor Name Role Phone Natividad Milton Primary Care Provider Rhett Galo Unavailable [phone] REASON FOR VISIT THORACIC/LUMBAR MRI REVIEW Encounters Encounter Location Date Provider Diagnosis [facility] [address] [place] [address] 12/14/2024 Rhett Hernandez Plan Of Treatment No Information Progress Notes * MELANIE TOMPKINS MDOB:1955 (69 yo F)Acc No.[id number]:12/14/2024 Patient:?MELANIE TOMPKINS :?Rhett Norton MD, PhDDOB:1955 ???Age:69 Y???Sex:FemaleDate:12/14/2024Phone:[phone]:[address] [facility] [place], [id number]:Natividad Milton Subjective: * Chief Complaints: * 1 . THORACIC/LUMBAR MRI REVIEW. * Medical History: Objective: * Vitals: Assessment: Plan: * Treatment: Forms: * Images: * Electronic signature of Rhett Hernandez MD, PHD on 03/28/2025 at 07:58 AM EST Sign off status: Pending * Provider: Dav Norton MD, PhD Date: 0 12/14/2024 Generated for Printing/Faalexg/Bharatismitting on:?03/28/2025 07:58 AM EST
--- OUTSIDE RECORDS SUMMARY | 2025-03-18 10:00 | XMS_ITS ---
Author Organization [facility] in [place] Address [address] [place] [address] Care Team Providers Care Pantograph I Engraver Name Role Phone Natividad Milton Primary Care Provider Allergies Allergen (clinical drug ingredient) Drug/Non Drug Allergy documented on EMR Reaction Allergy Type Onset Date Status sumatriptan Imitrex dizziness/fainted Drug Allergy Active Results Component Value Reference Range Notes UA DIP NONAUTO WO MICRO (810 02) - IN OFFICE Reviewed date:03/18/2025 02:57:07 PM Interpretation: Performing Lab: Notes/Report: COLOR Yellow CLARITYClearGLUCOSE+++BILIRUBINNegKETONE+SPECIFIC GRAVITY1.646QYYFSFfaIE2YIVTNCL +UROBILINOGENNegNITRITENegLEUKOCYTE ESTERASENeg REASON FOR VISIT f/u UTI Medications Medication SIG (Take, Route, Frequency, Duration) Notes Start Date End Date Status Ondansetron HCl 4 MG 1 tablet Orally Onc e a day prn; Duration: 14 days PRN 02/29/2024 ActiveoxyCODONE-Acetaminophen 5-325 MGOral; Duration: 30 DaysActivePROzac 20 MG4 capsule Orally once daily; Duration: 90 daysActivePyridium 200 MG1 tablet after meals Orally Three times a day; Duration: 2 days5ActiverOPINIRole HCl 1 MG1 tablet 1 to 3 hours before bedtime Orally Once a day; Duration: 30 days ActiveKetorolac Tromethamine 10 MG1 tablet with food or milk as needed Orally every 8 hrs prn; Duration: 3 days hold diclofenac, ibuprofen while taking start 10/27/24 5ActiveLevothyroxine Sodium 50 MCG1 tablet in the morning on an empty stomach Orally Once a day; Duration: 90 daysActiveLisinopril 20 MG1 tablet Orally Once a day; Duration: 30 daysActiveOmeprazole 20 MG1 capsule 1/2 to 1 hour before morning meal Orally BID; Duration: 30 days5ActiveOmeprazole Magnesium 20 MG1 tablet 1/2 to 1 hour before morning meal Orally Once a day; Duration: 30 daysActiveFurosemide 20 MG1 tablet Orally Once a dayActiveBreztri Aerosphere 160/9/4.8 mcgas directed inhalation 2 puffs BIDActiveDiclofenac Sodium 50 MG1 tablet Orally Twice a dayActiveFarxiga 10 MG1 tablet Orally Once a dayActiveFerrous Sulfate 325 (65 Fe) MG1 tablet Orally Three times a Week; Duration: 30 days01/31/2024ctiveAbilify 30 MG1 tablet Orally Once a day; Duration: 90 daysActiveAlbuterol Sulfate (2.5 MG/3ML) 0.083%3 mL as needed Inhalation every 6 hrs; Duration: 14 daysActiveAmitriptyline HCl 50 mgTAKE 1 TABLET BY MOUTH AT BEDTIME; Duration: 30ActiveBaclofen 5 MG1 -2 tablet as needed Orally Once a day; Duration: 14 days02/29/2024ctive Social History Tobacco Use: Social History Observation Description Date Details (start date - stop date) Former Smoker 05/23/1967 - 05/23/2020 Tobacco Use/Smoking Question Answer Notes Patient is a former smoker When did you start smoking?05/23/1967When did you stop smoking?05/23/2020How long has it been since you last smoked?1-5 yearsSection Notes: Smoking on and off from 30 y ears until passed- then picked it back up- quit in 2020 Vital Signs Weight 173 lbs 03/18/2025 Height 62 in 03/18/2025 Blood pressure systolic 132 mm Hg 03/18/20 25 Blood pressure diastolic 82 mm Hg 025 BMI 31.64 kg/m2 03/18/2025 Encounters Encounter Location Date Provider Diagnosis [address] [address] 03/18/2025 Natividad Milton Dysuria R30.0 Assessments Encounter Date Diagnosis (ICD Code) Assessment Notes Treatment Notes Treatment Clinical Notes Section Notes 03/18/2025 Dysuria (ICD-10 - R30.0) Plan Of Treatment Next Appt Details Follow Up: prn, Reason: Progress Notes * Mary TOMPKINS MDOB:1955 (69 yo F)Acc No.[id number]:03/18/2025 Progress Note Patient: Mary DURANT :?Natividad Milton ([facility]), CNPDOB:1955 ???Age:69 Y???Sex:FemaleDate:03/18/2025Phone:[phone]:[address] [facility] [address] [place], [id number] In:02:43 PM ESTCheck Out:03:01 PM EST Subjective: * Chief Complaints: * 1 . f/u UTI. * HPI: ???General:? pt unable to give urine sample last visit is feeling better told to fu no concerns today. * ROS: ???General/Constitutional:?Fever?denies.?Headache?denies.?Weight loss denies.?Ophthalmologic:?Discharge?denies.?Eye Pain?denies.?Itching and redness?denies.?ENT:?Nasal discharge?denies.?Nasal congestion?denies. Sore throat?denies.?Cardiovascular:?Chest tightness/ heavy pressure?denies.?Rapid heart rate?denies.?Swelling of extremities?denies.?Chest pain?denies.?Respiratory:?Productive cough?denies.?Chest pain?denies.?Cough?denies.?Shortness of breath?denies.?Wheezing?denies.?Gastrointestinal:?Abdominal pain?denies.?Constipation?denies.?Decreased appetite?denies.?Diarrhea?denies.?Nausea?denies.?Vomiting denies.?Genitourinary:?Urinary incontinence?denies.?Painful urination?denies.?Musculoskeletal:?Back pain?denies.?Neck pain?denies.?Muscle aches?denies.?Skin:?Rash?denies.?Skin lesion(s)?denies.? * Active Problem List J44.1 COPD exacerbation Modified On:08/23/2022 Status:pxucfsvmkC72.1COVID Modified On:08/24/2022 Status:obokpkyatO83.0Age-related osteoporosis without current pathological fracture Modified On:11/18/2022 Status:vlytrwtswH69.9Diaphragmatic hernia without obstruction or gangrene Modified On:04/19/2023 Status:yunjnigiuM04.00Insomnia Modified On:09/02/2023 Status:qiqodobsxB05.89Abnormal findings on diagnostic imaging of other specified body structures Modified On:09/06/2023 Status:vntdxpxodG89.909Migraine Modified On:09/15/2023 Status:tubickabzX95.8Anxiety and depression Modified On:10/05/2023 Status:rutdrweuqZ94.9GERD (gastroesophageal reflux disease) Modified On:10/05/2023 Status:sbkpwlspcB40.9Anemia, iron deficiency Modified On:10/05/2023 Status:qagctyaepC00LO (high blood pressure) Modified On:10/05/2023 Status:iylqbuydtE49.829Leukocytosis Modified On:10/05/2023 Status:gjnnjtofjJ23.2Palpitations Modified On:10/24/2023 Status:bnnoxohhcE25.10Supraventricular tachycardia, unspecified Modified On:10/24/2023 Status:oomtlaiqxG68.9Chest pain Modified On:10/24/2023 Status:mkyjxppgoM31.89Excessive caffeine intake Modified On:10/24/2023 Status:mvuxwvifxX35.02Exertional shortness of breath Modified On:10/24/2023 Status:ygbialivgQ35.9Hypothyroid Modified On:10/31/2023 Status:hvxegenzzH01.0Atherosclerosis of aorta Modified On:05/01/2024 Status:aeuzmadjbY13.20Mild pulmonary hypertension Modified On:05/01/2024 Status:rcywncsldU59.3Memory deficit Modified On:05/01/2024 Status:fpkmbzgadP10.9Class 2 obesity Modified On:05/01/2024 Status:tadiodycsA89.0Osteoporosis Modified On:06/06/2024 Status:qwdbumnovP81.39XARib fracture Modified On:06/07/2024 Status:racioxfyxP37.9Acquired hypothyroidism Modified On:06/28/2024 Status:xgukrbpkbT61.9COPD (chronic obstructive pulmonary disease) Modified On:12/11/2024 Status:eofbwoezoX00.9Heart failure, unspecified Modified On:12/24/2024 Status:ecjznsokrY66.9Anxiety Modified On:12/24/2024 Status:pnaesobayW45.9Large hiatal hernia Modified On:02/20/2025 Status:wbisukakjJ04.9Gastropathy Modified On:02/20/2025 Status:confirmed * Medical History: R estless legs, Arthritis, Bipolar 1 disorder, COPD (chronic obstructive pulmonary disease), COVID, Arthritis of both knees, Fracture of body of sternum, sequela, GERD (gastroesophageal reflux disease), Esophageal hernia, Hypertension, Migraines, Osteoporosis, Pneumonia, Thyroid disorder, J-Shaped stomach. * Surgical History: H YSTERECTOMY TOTAL , Jaw Surgery , APPENDECTOMY , Cataract removal and eye lift , Ablation lumbar spine , Colonoscopy- Dr Parson 04/2024. * Hospitalization/Major Diagno stic Procedure: m igraine 01/13. * Family History: F ather: 40 yrs. M other: , Lung cancer, diagnosed with Cancer. B aravind(s): alive. S ister(s): , Lung cancer, diagnosed with Cancer. S on(s): alive. Daughter(s): alive. 1 brother(s) , 2 sister(s) . 1 son(s) , 1 daughter(s) . . Dad passed in car accident Sister passed from Lung Cancer. * Social History: ???Tobacco Use:?Tobacco Use/Smoking?Patient is a?former smoker ?When did you start smoking??05/23/1967 ?When did you stop smoking??05/23/2020 ?How long has it been since you last smoked? 1-5 years ???Smoking on and off from 30 years until passed- then picked it back up- quit in 2020. * Medications: T molly Tompkinslifkhanh(ARIPiprazole) 30 MG Tablet 1 tablet Orally Once a day , Taking Albuterol Sulfate (2.5 MG/3ML) 0.083% Nebulization Solution 3 mL as needed Inhalation every 6 hrs , Taking Amitriptyline HCl 50 mg Tablet TAKE 1 TABLET BY MOUTH AT BEDTIME , Taking Baclofen 5 MG Tablet 1 -2 tablet as needed Orally Once a day , Taking Breztri Aerosphere(Rskhzfd-Mazqnqzpjiq-Eewqilngsd) 160/9/4.8 mcg aerosol as directed inhalation 2 puffs BID , Taking Diclofenac Sodium 50 MG Tablet Delayed Release 1 tablet Orally Twice a day , Taking Farxiga(Dapagliflozin Propanediol) 10 MG Tablet 1 tablet Orally Once a day , Taking Ferrous Sulfate 325 (65 Fe) MG Tablet 1 tablet Orally Three times a Week , Taking Furosemide 20 MG Tablet 1 tablet Orally Once a day , Taking Ketorolac Tromethamine 10 MG Tablet [...] 4 capsule Orally once daily , Taking Pyridium(Phenazopyridine HCl) 200 MG Tablet 1 tablet after meals Orally Three times a day , Taking rOPINIRole HCl 1 MG Tablet 1 tablet 1 to 3 hours before bedtime Orally Once a day , Discontinued Amoxicillin-Pot Clavulanate 875-125 MG Tablet 1 tablet Orally every 12 hrs , Medication List reviewed and reconciled with the patient * Allergies: I mitrex: dizziness/fainted - Allergy. Objective: * Vitals: W t:173lbs, Ht: 62 in, BP:132/82mm Hg, BMI:31.64Index, Ht-cm: 157.48 cm, Wt-k.47 kg. * Examination: ???General Examinations: ?GENERAL APPEARANCE:?alert and oriented,?in no acute distress.?EYES:?conjunctiva normal, sclera non-icteric.?NOSE:?normal external appearance.?LUNGS:?clear to auscultation bilaterally.?CARDIO:?regular rate and rhythm, S1, S2 normal.?ABDOMEN:?soft, nontender.?MUSCULOSKELETAL:?Gait and station normal.?SKIN:?warm and dry.? Assessment: * Assessment: 1.?Dysuria - R30.0 (Primary)??? Plan: * Treatment: ?LAB: UA DIP NONAUTO WO MICRO (06974) - IN OFFICE (Collection Date & Time - 03/18/2025) * Labs: * L ab: UA DIP NONAUTO WO MICRO (86208) - IN OFFICE (Collection Date & Time - 03/18/2025) ?ValueReference Range?COLORYellow * C LARITY Clear * G LUCOSE +++ * B ILIRUBIN Neg * K ETONE + * S PECIFIC GRAVITY 1.010 * B LOOD Neg * P H 5 * P ROTEIN + * U ROBILINOGEN Neg * N ITRITE Neg * L EUKOCYTE ESTERASE Neg * Procedure Codes: 8 1002 URINALYSIS WO MICRO * Preventive Medicine: ??Screenings/Counseling:?BMI ACTION PLAN?Below Normal BMI Follow-up?Dietary management education, guidance, and counseling * Follow Up: p rn * * Electronically signed by Natividad Milton , [employer], [employer]SHOP MECHANIC.[id number] on 03/19/2025 at 01:52 PM EDTSign off status: CompletedVisit Status:?CHK (Check Out) true * Provider: Giovana Milton ([facility]), SHOP MECH[employer]IC Date: Generated for Printing/Faxing/eTransmitting on:?03/28/2025 07:58 AM EST History and Physical Notes * HPI (History of Present Illness) CategorySub-CategoryDetailNotesCategory NotesGeneral pt unable to give urine sample last visit is feeling better told to fu no concerns today Examination CategorySub-CategoryDetailNotesCategory NotesGeneral ExaminationsGENERAL APPEARANCE:alert and oriented, in no acute distressEYES:conjunctiva normal, sclera non-ictericEARS:NOSE:normal external appearanceTHROAT:CARDIO:regular rate and rhythm, S1, S2 normalLUNGS:clear to auscultation bilaterallyABDOMEN:soft, nontenderSKIN:warm and dryBACK:MUSCULOSKELETAL:Gait and station normalLYMPH NODES:
--- OUTSIDE RECORDS SUMMARY | 2025-03-26 08:10 | XMS_ITS | Encounter Summary ---
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 Primary Care Provider Sabrina Felix MD Unavailable [phone] Source Comments In the event this information is protected by the Federal Confidentiality of Alcohol and Drug AbusePatient Records regulations: The Federal rules restrict any use of the information to criminally investigate or prosecute any alcohol or drug abuse patient.[facility] Reason for Visit * Outpatient Procedure (Routine) - ClosedSpecialtyDiagnoses / ProceduresReferred By ContactReferred To [facility] Diagnoses Preoperative examination Hiatal hernia Procedures ECG COMPLETE ECG ROUTINE ECG W/LEAST 12 LDS W/I&R [address] [phone] Phone: tel: fax: [facility] [place] [address] [place] [address] Referral IDStatusReasonStart DateExpiration DateVisits RequestedVisits [id number] Auto-Generated Referral / Encounter Details DateTypeDepartmentCare Team (Latest Contact Info)Yjqxulunbse96/08/2024 8:10 AM ESTProcedure Cardiology [address] [phone] Social History Tobacco UseTypesPacks/DayYears UsedDateSmoking Tobacco: FormerCigarettesPassive Smoke Exposure: NeverSmokeless Tobacco: NeverAlcohol UseStandard Drinks/Week CommentsNever0 (1 standard drink = 0.6 oz pure alcohol)Area Deprivation Index AnswerDate RecordedNational Score (1-100), lower number is lower risk75 02/21/2025State Score (1-10), lower number is lower axeq673Data from: https://www.neighborhoodatlas.medicine.[facility].edu/. Last address used for [id number]/21/[address]25CommentsNoSex and Gender Information ValueDate RecordedSex Assigned at BirthNot on fileLegal RrkKjxxis57/02/2012 9:17 AM ESTGender IdentityNot on fileSexual OrientationNot on filedocumented as of this encounter Plan of Treatment DateTypeDepartmentCare Team (Latest Contact Info)Uxioeftdvyy85/14/2025 7:30 AM ESTHospital Encounter Admitting [address] [place] [address] [address] [facility] [place] [address] Preoperative examination [Z01.818], Hiatal hernia [K44.9]04/05/2025 7:30 AM EST - 04/05/2025 10:15 AM ESTSurgery Admitting [address] [place] [address] [address] [place] [address] LAPAROSCOPIC RPR PARAESOPHAGEAL HERNIA W/O FUNDOPLASTY W/ MESHNameTypePriority Associated DiagnosesDate/TimeECG COMPLETEECGRoutine Preoperative examination Hiatal hernia 03/26/2025 7:50 AM ESTNamePriorityAssociated DiagnosesDate/TimeLAPAROSCOPIC RPR PARAESOPHAGEAL HERNIA W/O FUNDOPLASTY W/ MESH Preoperative examination Hiatal hernia 04/05/2025 7:30 AM ESTdocumented as of this encounter Goals GoalPatient Goal TypeAssociated ProblemsRecent ProgressPatient-Stated?Author Autogenerated Goal Care PlanAutogenerated ProblemMumtaz Bazziisdocumented as of this encounter Procedures Procedure NamePriorityDate/TimeAssociated DiagnosisCommentsECG COMPLETERoutine 03/26/2025 7:50 AM EST Preoperative examination Hiatal hernia documented in this encounter Visit Diagnoses Diagnosis Preoperative examination Preoperative examination, unspecified Hiatal hernia Diaphragmatic hernia without mention of obstruction or gangrene Preoperative examination Preoperative examination, unspecified Hiatal hernia Diaphragmatic hernia without mention of obstruction or gangrene documented in this encounter Additional Health Concerns Active ProblemsNoted DateDiagnosed DateAutogenerated Dksmbgi6802/23/2025documented as of this encounter Care Teams Team MemberRelationshipSpecialtyStart DateEnd Date Jose Burrell Jr. PCP - [facility] [place]09/07/00 Sabrina Wilkinson MD [address] [place] [address] Gastroenterology02/14/25documented as of this encounter
--- OUTSIDE RECORDS SUMMARY | 2025-03-26 09:00 | XMS_ITS | Encounter Summary ---
Author Organization [facility] Address [address] [place] [id number] Care Team Providers Care Manager Solution Name Role Phone Jose Burrell Jr. Primary Care Provider Sabrina Felix MD Unavailable [phone] Source Comments In the event this information is protected by the Federal Confidentiality of Alcohol and Drug AbusePatient Records regulations: The Federal rules restrict any use of the information to criminally investigate or prosecute any alcohol or drug abuse patient.[facility] Encounter Details DateTypeDepartmentCare Team (Latest Contact Info)Hjtnopksqqu97/04/2025 9:00 AM ESTPAT Pre Anesthesia [address] [place] [address] 13, [facility] [address] [place] [address] [id number] Paraesophageal hernia (Primary Dx); Chronic diastolic (congestive) heart failure (HCC); Hypertensive heart and chronic kidney disease with heart failure and stage 1 through stage 4 chronic kidney disease, or unspecified chronic kidney disease (HCC); Chronic obstructive pulmonary disease, unspecified COPD type (HCC); Anxiety and depression; Chronic cough; Acquired hypothyroidism; Gastroesophageal reflux disease with esophagitis, unspecified whether hemorrhage; PONV (postoperative nausea and vomiting); Preoperative examination Social History Tobacco UseTypesPacks/DayYears UsedDateSmoking Tobacco: FormerCigarettesPassive Smoke Exposure: NeverSmokeless Tobacco: NeverAlcohol UseStandard Drinks/Week CommentsNever0 (1 standard drink = 0.6 oz pure alcohol)Area Deprivation Index AnswerDate RecordedNational Score (1-100), lower number is lower risk75 02/21/2025State Score (1-10), lower number is lower sepb738Data from: https://www.neighborhoodatlas.[facility]/. Last address used for mrwuryxipyo[address]/21/2025CommentsNoSex and Gender Information ValueDate RecordedSex Assigned at BirthNot on fileLegal AdvJtodjk98/02/2012 9:17 AM ESTGender IdentityNot on fileSexual OrientationNot on filedocumented as of this encounter Last Filed Vital Signs Vital SignReadingTime TakenCommentsBlood Ibdvgphd398/4803/26/2025 8:32 AM EST Fdvzn232203/26/2025 8:32 AM LYYXhzkpeohfei50 ??C (96.8 ??F)03/26/2025 8:32 AM EST Respiratory Rate--Oxygen Aylhniogcf85%03/26/2025 8:32 AM ESTInhaled Oxygen Concentration--Ayqyrx86.1 kg (174 lb 6.1 oz)03/26/2025 8:32 AM RNZMivueh129.9 cm (5' 1 )03/26/2025 8:32 AM ESTBody Mass Index32.9503/26/2025 8:32 AM EST documented in this encounter Patient Instructions * Patient Instructions* Layla Navarrete, JOSEPH.TANK ERECTOR - 03/26/2025 9:07 AM EST Images from the original note were not included. [facility] PATIENT PREOPERATIVE INSTRUCTIONS Joo Bobo MD has scheduled you for your procedure at this surgery center: [facility] [place]: --[address] [place] [id number]. - To obtain your arrival time for surgery, call your physician's office the day before your surgery. - If you have received different instructions about finding out your arrival time from your surgeon, please follow those instructions. - If your surgery is scheduled for Tuesday, call the Tuesday before. Your surgeon???s medical scheduler will tell you what time to call the office. - If you have not reached the departmental medical scheduler by 5 P.M., call [phone] after 5 P.M. the day before your surgery. Please read below carefully for your personalized instructions. Dietary Restrictions: - No solid food after midnight. - You may have 12 ounces of clear liquids (water, clear juices such as apple juice or gatorade, carbonated beverages, clear tea, black coffee, jello) until 2 hours before scheduled arrival at facility. Medications: Unless instructed differently below, stay on all of your medications until your surgery. If you start any new medications after today's visit, please contact your surgeon. Pre-Surgery Med Instructions Medication Instructions amitriptyline (ELAVIL) 50 mg tablet Do not take the day of surgery furosemide (LASIX) 20 mg tablet Do not take the day of surgery ALBUTEROL INHALATION If you normally take this medication in the morning, take the morning of surgery. nnpgkwtkho-mduegsjm-wnkdglkodi (BREZTRI AEROSPHERE) 160-9-4.8 mcg/actuation HFA aerosol inhaler If you normally take this medication in the morning, take the morning of surgery. dapagliflozin propanediol (FARXIGA) 10 mg tablet Hold 3 days before surgery. Last dose 04/02/25. ARIPiprazole (ABILIFY) 30 mg tablet If you normally take this medication in the morning, take the morning of surgery. FLUoxetine (PROZAC) 20 mg capsule If you normally take this medication in the morning, take the morning of surgery. levothyroxine 50 mcg cap If you normally take this medication in the morning, take the morning of surgery. lisinopril (ZESTRIL) 40 mg tablet If you normally take this medication in the morning, take the morning of surgery. OMEPRAZOLE, BULK, MISC If you normally take this medication in the morning, take the morning of surgery. POTASSIUM CHLORIDE 2.5 MEQ TAB If you normally take this medication in the morning, take the morning of surgery. ropinirole HCl (ROPINIROLE PO) Do not take the day of surgery If you start any new medications after today's visit, please contact the surgeon's office. Blood Thinning Medications: - Stop NSAIDS (Ibuprofen, Advil, Aleve, Motrin, Celebrex, Mobic, etc.) 7 days before surgery, as directed by your surgeon. - Stop ALL herbal and dietary supplements 7 days before surgery. - You may take Tylenol (Acetaminophen) or any of your pain medications that do not contain aspirin or NSAIDS as needed. Important Reminders: - If you are prescribed inhalers for breathing, continue using them. - Candy, mints, and tobacco products are NOT permitted the morning of surgery. - Hearing aids, dentures and glasses may be worn the morning of surgery. - NO jewelry, body piercings, makeup, hairpins or contacts are to be worn the day of surgery. If you develop symptoms such as a fever, cold, or flu, or have other changes to your health within TWO DAYS of scheduled surgery or the morning of surgery, please contact the surgery center above. Personal Belongings: -Please have photo ID and insurance cards. -If you do not have a copy of advance directives on file with us, please bring a copy with you on the day of surgery. - Leave ALL valuables and money at home or with family members. - Please bring high-quality footwear, such as sneakers, to the hospital for ambulating post-surgery. For Outpatient Procedures: - YOU MUST HAVE A RESPONSIBLE WATCH ASSEMBLER TAKE YOU HOME. A CARD LACER JACQUARD OR SQUEEGEE FINISHER CANNOT BE MADE A RESPONSIBLE WATCH ASSEMBLER. - We recommend that a responsible person stays with you overnight to take care of you. - You cannot stay in a hotel alone after outpatient surgery. You will not be permitted to have yoursurgery, if you do not have someone to take care of you. Arrival Time for Surgery: Please be aware that emergency situations arise, which may delay or change your surgical time. If this happens, we will notify you as soon as possible and regret any inconvenience. If you already have an Advance Directive, please fax a copy to [phone] or email to for it to be added to your chart. If you do not have an Advance Directive, you can find the appropriate form and more information at [email or web address]. We recommend that youcomplete the Advance Directive form found on the website and bring it with you the day of your surgery. It can be witnessed and scanned into your chart that day. documented in this encounter H&P Notes * Layla Navarrete APRN.CNP - 03/25/2025 2:14 PM EST Images from the original note were not included. [facility] HISTORY AND PHYSICAL EXAMINATION SERVICE DATE: 03/2025 SERVICE TIME: 8:57 AM PRIMARY CARE PHYSICIAN: Jose Burrell Jr. (Inactive) Assessment Patient has the following medical conditions which may affect rob-operative course: 1. Paraesophageal hernia (K44.9) 2. Gastroesophageal reflux disease with esophagitis, unspecified whether hemorrhage (K21.00) - Large paraesophageal hernia with stomach mostly in chest on CT; chronic reflux, dysphagia, and early satiety worsening over past 4 months. - EGD performed 02/11/2025. - Surgery scheduled for 03/05/[address] Reese. - Reviewed preoperative instructions: no solid food after midnight, clear liquids (including black coffee, hot tea, iced tea) up to 2 hours before arrival; no candy, mints, gum, or topical products on day of surgery. - Advised to call surgical office if no arrival time received by 5 PM day before surgery. - Discussed postoperative diet: will receive detailed instructions and meet with print line operator in hospital. 3. Chronic diastolic (congestive) heart failure (HCC) (I50.32) 4. Hypertensive heart and chronic kidney disease with heart failure and stage 1 through stage 4 chronic kidney disease, or unspecified chronic kidney disease (HCC) (I13.0) - Chronic dyspnea on exertion significantly improved with diuretics per cardiology. - Cardiac risk assessment by cardiology (Dr. Tc Merchant) on 03/04/2025: moderate risk for major cardiac events during surgery; not on antiplatelet or anticoagulation therapy. - Stress test 11/21/2023: no evidence of ischemic EKG changes, normal nuclear medicine myocardial perfusion scan. - Echocardiogram 10/2023: normal LV systolic function, mildly elevated RVSP at 35 mmHg. - Continue lisinopril and potassium as prescribed. - Hold Farxiga 3 days prior to surgery (last dose 03/02/2025) due to risk of lactic acidosis with anesthesia and CKD. - Hold Lasix on day of surgery. 5. Chronic obstructive pulmonary disease, unspecified COPD type (HCC) (J44.9) 6. Chronic cough (R05.3) - Chronic cough with phlegm production attributed to COPD; no recent fever or chills. - Continue Breztri inhaler as prescribed; use on day of surgery. - Recent chest X-ray on 01/21/2025 at [facility]. 7. Anxiety and depression (F41.9) - Continue fluoxetine and Abilify as prescribed. - Continue amitriptyline as prescribed; do not take on day of surgery. 8. Acquired hypothyroidism (E03.9) - Continue levothyroxine as prescribed. 9. PONV (postoperative nausea and vomiting) (R11.2) - History of postoperative nausea; will administer antiemetic prophylaxis intraoperatively, including scopolamine patch. 1. Paraesophageal hernia (K44.9) 2. Gastroesophageal reflux disease with esophagitis, unspecified whether hemorrhage (K21.00) - Large paraesophageal hernia with stomach mostly in chest on CT; chronic reflux, dysphagia, and early satiety worsening over past 4 months. - EGD performed 02/11/2025. - Surgery scheduled for 03/05/[address] Bobo. 3. Chronic diastolic (congestive) heart failure (HCC) (I50.32) 4. Hypertensive heart and chronic kidney disease with heart failure and stage 1 through stage 4 chronic kidney disease, or unspecified chronic kidney disease (HCC) (I13.0) - Chronic dyspnea on exertion significantly improved with diuretics per cardiology. - Cardiac risk assessment by cardiology Cristhian COCHRAN (Dr. Francis) on 03/04/2025: moderate risk for major cardiac events during surgery; not on antiplatelet or anticoagulation therapy. - Stress test 11/21/2023: no evidence of ischemic EKG changes, normal nuclear medicine myocardial perfusion scan. - Echocardiogram 10/2023: normal LV systolic function, mildly elevated RVSP at 35 mmHg. - Continue lisinopril and potassium as prescribed. - Hold Farxiga 3 days prior to surgery (last dose 03/02/2025) - Hold Lasix on day of surgery.\ 5. Chronic obstructive pulmonary disease, unspecified COPD type (HCC) (J44.9) 6. Chronic cough (R05.3) - Chronic cough with phlegm production attributed to COPD; no recent fever or chills. - Continue Breztri inhaler as prescribed; use on day of surgery. 7. Anxiety and depression (F41.9) - Continue fluoxetine and Abilify as prescribed. - Continue amitriptyline as prescribed; do not take on day of surgery. 8. Acquired hypothyroidism (E03.9) - Continue levothyroxine as prescribed. 9. PONV (postoperative nausea and vomiting) (R11.2) - History of postoperative nausea; will administer antiemetic prophylaxis intraoperatively, including scopolamine patch. 10. Leukocytosis -Preop WBC count 14, with cough and slight fine crackles on RLL base will order CXR preoperatively -CXR to be done at OSH. Resource nurses faxed copy of order ANESTHESIA FINDINGS: Intubation History: No history of difficult intubation. No abnormal airway history Significant Anesthesia Considerations: +Have used US in the past for placement potential postop nausea/vomiting Airway History: No history of difficult airway No abnormal airway history Leblanc Activity Status Index: METS: Do light work around the house, such as dusting or washing dishes (2.70 METs) DASI Score: 2.7 Patient denies any chest pain or undue shortness of breath with the above physical activity. STOP-Bang Score: Snores loudly Often feels tired, fatigued, or sleepy during the daytime Has or is being treated for high blood pressure Patient over 50 years old Has not been observed to stop breathing or choking/gasping during sleep BMI less than or equal to 35 kg/m^2 Does not have a large neck Non-male patient STOP-Bang Score: 4 [id number] Score: CHF history: Yes Hypertension history: Yes Diabetes history: Yes [id number] Score: I - PHYSICAL EVALUATION AIRWAY Patient intubated: No. DENTAL Dentures, upper: complete. Dentures, lower: complete. II - ANESTHESIA PLAN Informed Consent Prepared for Surgery: optimally prepared for surgery, pending day of surgery. XRAY and DOS T&s AND CON and repeat CBC- will call patient to see if she can complete day before surgery CONSULTS: Patient does not require consults for optimization at this time Planned Anesthetic: The Following Tests/Procedures Have Been Initiated: Orders Placed This Encounter XR CHEST 2V FRONTAL/LAT Standing Status: Future Expiration Date: 03/26/2026 Complete Blood Count and Differential Standing Status: Future Expected Date: 03/27/2025 Expiration Date: 06/26/2025 Type and Screen, 30 day Standing Status: Future Expected Date: 03/27/2025 Expiration Date: 06/26/2025 Scheduling Instructions: A 30-day Type and Screen test has been ordered for you. This should be scheduled to be collected noearlier than 29 days before your scheduled procedure. If you receive blood products (red blood cells, platelets, plasma, cryoprecipitate) at any point before your procedure or are a female and become, please inform your provider. This test will be canceled, and a standard type and screen will need to be ordered to be collected within 3 days of your procedure. [facility] Procedure:: [facility] Status of surgery/procedure:: Scheduled Date of surgery/procedure:: 04/05/2025 amitriptyline (ELAVIL) 50 mg tablet Sig: Take 50 mg by mouth daily at bedtime. REASON FOR VISIT: Mary Vick is a 69 year old female who is scheduled for Procedure(s): LAPAROSCOPIC RPR PARAESOPHAGEAL HERNIA W/O FUNDOPLASTY W/ MESH (N/A) at the request of Joo Caballero for consultation. My final recommendation will be communicated back to the requesting physician by way of shared medical record or letter. Subjective The patient has the following: Recording using [employer] software for draft documentation of the visit was discussed with the patient/authorized car sales representative; all questions welcomed and answered. Patient/authorized car sales representative agreed to proceed COVID-19 Immunization Status Current Care Gaps Covid-19 Vaccine ( season) Overdue since 01/21/2025 04/30/2023 Imm Admin: COVID-19 vaccine, age 12+ yr (PFIZER-BIONTECH COMIRNATY) 07/09/2022 Imm Admin: COVID-19 vaccine, age 12+ yr, bivalent (PFIZER-BIONTECH) 02/12/2022 Imm Admin: COVID-19 vaccine, unspecified formulation Only the first 3 history entries have been loaded, but more history exists. CHIEF COMPLAINT: Preoperative Examination HPI: 69 year old female patient presents today with hiatal hernia. Mary reports chronic DAI thatsignificantly improved after starting diuretics prescribed by cardiology. She continues to experience shortness of breath with minimal exertion, such as walking a few steps or performing household tasks, which she attributes to her hernia. She also reports reflux, sensation of food getting stuck, and early satiety that have been present for years and worsened over the last 4 months. She has a chronic cough with sputum production, which she attributes to her COPD and use of Breztri inhaler.CT scan shows a large paraesophageal hernia with most of the stomach completely in the chest. EGD was performed on 02/11/2025. She is scheduled for surgery on the with Dr. Bobo. As next step in treatment the above procedure is recommended. Patient is agreeable and would like to proceed. REVIEW OF SYSTEMS: General: No weight loss, malaise or fevers. Neurological: No history of TIA's, stroke, CALENDERING MACHINE OPERATOR tumor, impaired sensorium, hemiplegia, paraplegia orquadraplegia. No neurological symptoms or problems. Respiratory: Positive for: COPD, current cough, dyspnea and obstructive sleep apnea (Suspected, patient denies diagnosis or use of CPAP/Bipap. In PMH). Negative for: asthma, home oxygen, pneumonia within 6 weeks, tobacco use and URI < 2 weeks. Cardiovascular: Positive for: CHF and hypertension Negative for: abdominal aortic aneurysm, AICD/PPM, angina, anticoagulation therapy, arrhythmia, atrial fibrillation, CAD, chest pain, congenital heart defect, DVT/PE, hyperlipidemia, recent WA, murmur/valvular heart disease, PTCA, PVD, open heart surgery and valve surgery. GI: See HPI. : +CKD Negative for: dysuria and urinary tract infection. GAS TURBINE MECHANIC: Negative for abnormal vaginal bleeding, abnormal vaginal discharge. Endocrine: Positive for: diabetes mellitus. Negative for: hypothyroidism. Hematology: No history of bleeding or clotting disorder. Patient is not taking anti-coagulation or platelet medications. No history of hematological symptoms or problems. Oncology: No history of CA metastasis, chemo within 30 days, or radiotherapy within 90 days. No history of oncological symptoms or problems. Psych: Positive for: anxiety and depression. Musculoskeletal: Negative for joint pain or swelling, back pain or muscle pain. Skin: Negative for lesions, rash and itching. Implanted Devices: No implanted devices. The patient has the following comorbidities: Continue current outpatient treatment plan and current medications for these conditions, except where otherwise noted. PAST MEDICAL HISTORY Diagnosis Date CKD (chronic kidney disease) Congestive heart failure (HCC) COPD (chronic obstructive pulmonary disease) (HCC) Hypertension Sleep apnea PAST SURGICAL HISTORY Procedure Laterality Date LEFT HEART CATH,PERCUTANEOUS MANDIBLE SURGERY HX TOTAL ABDOM HYSTERECTOMY FAMILY HISTORY Problem Relation Age of Onset Anesthesia Problems No Family History SOCIAL HISTORY[1] Prior to Admission medications as of 02/21/25 1128 Medication Sig Last Dose Taking amitriptyline (ELAVIL) 50 mg tablet Take 50 mg by mouth daily at bedtime. Yes furosemide (LASIX) 20 mg tablet Take 20 mg by mouth two times a day. Yes ALBUTEROL INHALATION Inhale as instructed. Yes aiegamlrei-anvkplbq-vxumlqkshv (BREZTRI AEROSPHERE) 160-9-4.8 mcg/actuation HFA aerosol inhaler Inhale 2 puffs as instructed two times a day. Yes dapagliflozin propanediol (FARXIGA) 10 mg tablet Take by mouth daily with breakfast. Yes ARIPiprazole (ABILIFY) 30 mg tablet Take 30 mg by mouth once daily. Yes FLUoxetine (PROZAC) 20 mg capsule Take 20 mg by mouth once daily. Yes levothyroxine 50 mcg cap Take 50 mcg by mouth daily before breakfast. Yes lisinopril (ZESTRIL) 40 mg tablet Take 40 mg by mouth once daily. Yes OMEPRAZOLE, BULK, MISC Yes POTASSIUM CHLORIDE 2.5 MEQ TAB Yes ropinirole HCl (ROPINIROLE PO) Take by mouth. Yes amoxicillin-clavulanate potassium (AUGMENTIN) 875-125 mg per tablet Take 1 tablet by mouth two times a day. Patient not taking: Reported on 03/26/2025 phenazopyridine (PYRIDIUM) 200 mg tablet Take 200 mg by mouth three times a day as needed. Patient not taking: Reported on 03/26/2025 busPIRone (BUSPAR) 10 mg tablet Take 10 mg by mouth three times a day. Patient not taking: Reported on 03/26/2025 diclofenac-miSOPROStol (ARTHROTEC) 50-200 mg-mcg per tablet Take 1 tablet by mouth two times a day. Patient not taking: Reported on 03/26/2025 No medication comments found. ALLERGIES Allergen Reactions Sumatriptan Other: See Comments Tachycardia fainting Tachycardia fainting Objective PHYSICAL EXAM: General: alert and oriented and healthy appearance. Pertinent negatives noted - not distressed. Skin: normal color, no rash or lesions. HEENT: EOM intact, pupils equal round and pupils reactive to light. Pertinent negatives noted - no cervical lymphadenopathy and no carotid bruit. No additional findings for patient's eyes, ears, nose, throat or neck. Cardiovascular: regular rate and rhythm, normal S1 and S2, no rub, murmurs, or gallop. Respiratory: normal breath sounds, no wheezes or crackles. No chest wall deformity or tenderness. Abdomen: bowel sounds present and soft. Pertinent negatives noted - not tender. Extremities: no deformity, no edema or tenderness, no joint swelling or clubbing. Neurological: normal cognition and motor skills. Gait normal. No weakness or sensory deficit. PAIN ASSESSMENT: VITALS: BP 106/48 Pulse 68 Temp (Src) 96.8 (Temporal) Ht 5' 1 (1.55m) Wt 174 lb 6.1 oz (79.1kg) SpO2 96% BMI 32.97 kg/(m^2). Diagnostic tests reviewed for today's visit: Lab Value Units Date High Low HB 13.9 g/dL 03/26/2025 15.5 11.5 HCT 42.6 % 03/26/2025 46.0 36.0 WBC 14.19 k/uL 03/26/2025 11.00 3.70 PLT 387 k/uL 03/26/2025 400 150 NA 137 mmol/L 03/26/2025 144 136 K 4.8 mmol/L 03/26/2025 5.1 3.7 GLUC 102 mg/dL 03/26/2025 99 74 BUN 22 mg/dL 03/26/2025 21 7 CREAT 1.03 mg/dL 03/26/2025 0.96 0.58 PTSEC 10.9 sec 03/26/2025 13.0 9.7 INR 1.0 no uni* 03/26/2025 1.3 0.9 APTT 28.2 sec 03/26/2025 32.4 23.0 ALT 13 U/L 03/26/2025 38 7 AST 22 U/L 03/26/2025 35 13 TBILI 0.4 mg/dL 03/26/2025 1.3 0.2 TSH No results within date range. Lab Value Units Date High Low HCGQT No results within date range. UHCG No results within date range. HCG, BODY* No results within date range. Lab Value Units Date High Low ABORHD No results within date range. ABSCREEN No results within date range. No results found for: HBA1C Recent Results (from the past 8760 hours) ECG COMPLETE Collection Time: 03/26/25 7:50 AM Result Value Ventricular Rate 88 Atrial Rate 88 P-R Interval 146 QRS Duration 88 QT Interval 364 QTC Calculation (Bazett) 440 Calculated P Zamora 6 Calculated R Zamora -7 Calculated T Zamora 34 Impression NORMAL SINUS RHYTHM MINIMAL VOLTAGE CRITERIA FOR LVH, MAY BE NORMAL VARIANT ( Ric product ) INFERIOR MYOCARDIAL INFARCTION , AGE UNDETERMINED ANTERIOR T WAVE ABNORMALITY ABNORMAL ECG No results found for this or any previous visit (from the past 92029 hours). CV [place] 03/04/25 Echocardiogram 10/2023 Global left ventricular systolic function is normal EF 60%. Mild concentric left ventricular hypertrophy Normal right ventricular size and systolic function Severe left atrial dilatation Trileaflet aortic valve with mild to moderate regurgitation and no stenosis Mildly elevated right-sided pressures; RVSP 35 mmHg Stress test 11/21/2023: No evidence of ischemic EKG changes seen Normal nuclear medicine myocardial perfusion scan PFT's from November 2024 reviewed--FVC 1.47 L (55 %), FEV1 1.19 L (59 %), ratio 81 %, no significant bronchodilator response, TLC 71 %, air trapping present, decreased DLCO that correct somewhat when adjusted for alveolar ventilation, patient would not able to exhale for full 6 seconds making spirometry not valid by ATS criteria Echocardiogram 12/19/2024: Instructions Given to Patient: Instructions located in the after visit summary. Patient given verbal and written preop instructions and voices comprehension and compliance. SIGNATURE: Layla Navarrete APRN.CNP PATIENT NAME: Mary Vick DATE: March 25, 2025 TIME: 2:14 PM PAGER/CONTACT #: [1] Social History Tobacco Use Smoking status: Former Types: Cigarettes Passive exposure: Never Smokeless tobacco: Never Substance Use Topics Alcohol use: Never Drug use: Never documented in this encounter Miscellaneous Notes * Addendum Note - Layla Navarrete APRN.CNP - 03/27/2025 8:21 PM ESTAddended by: LAYLA NAVARRETE on: 03/27/2025 08:21 PM Modules accepted: Orders * Addendum Note - Layla Navarrete APRN.CNP - 03/26/2025 9:58 AM ESTAddended by: LAYLA NAVARRETE on: 03/26/2025 09:58 AM Modules accepted: Orders documented in this encounter Plan of Treatment DateTypeDepartmentCare Team (Latest Contact Info)Cbqzqpbtmsq88/14/2025 7:30 AM ESTHospital Encounter Admitting [address] [place] [id number] [facility] [address] [id number] Preoperative examination [Z01.818], Hiatal hernia [K44.9]04/05/2025 7:30 AM EST - 04/05/2025 10:15 AM ESTSurgery Admitting [address] [place] [address] [facility] [address] [place] [address] LAPAROSCOPIC RPR PARAESOPHAGEAL HERNIA W/O FUNDOPLASTY W/ MESHNameTypePriority Associated DiagnosesOrder ScheduleXR CHEST 2V FRONTAL/LATRadiologyRoutine Paraesophageal hernia 1 Occurrences starting 03/26/2025 until 03/26/2026OMPLETE BLOOD COUNT AND DIFFERENTIALLabRoutine Paraesophageal hernia Preoperative examination Expected: 03/27/2025, Expires: 06/26/2025TYPE AND SCREEN,30 DAYBlood BankRoutine Preoperative examination Expected: 03/27/2025, Expires: 06/26/2025NamePriorityAssociated Diagnoses Date/TimeLAPAROSCOPIC RPR PARAESOPHAGEAL HERNIA W/O FUNDOPLASTY W/ MESH Preoperative examination Hiatal hernia 04/05/2025 7:30 AM ESTdocumented as of this encounter Goals GoalPatient Goal TypeAssociated ProblemsRecent ProgressPatient-Stated?Author Autogenerated Goal Care PlanAutogenerated ProblemNoAmerica, Mumtazisdocumented as of this encounter Visit Diagnoses Diagnosis Paraesophageal hernia- Primary Diaphragmatic hernia without mention of obstruction or gangrene Chronic diastolic (congestive) heart failure (HCC) Hypertensive heart and chronic kidney disease with heart failure and stage 1 through stage 4 chronic kidney disease, or unspecified chronic kidney disease (HCC) Chronic obstructive pulmonary disease, unspecified COPD type (HCC) Anxiety and depression Dysthymic disorder Chronic cough Cough Acquired hypothyroidism Unspecified hypothyroidism Gastroesophageal reflux disease with esophagitis, unspecified whether hemorrhage PONV (postoperative nausea and vomiting) Nausea with vomiting Preoperative examination Preoperative examination, unspecified Preoperative examination Preoperative examination, unspecified Hiatal hernia Diaphragmatic hernia without mention of obstruction or gangrene documented in this encounter Additional Health Concerns Active ProblemsNoted DateDiagnosed DateAutogenerated Pyzglji0602/23/2025documented as of this encounter Care Teams Team MemberRelationshipSpecialtyStart DateEnd Date [facility] Burrell [facility] Sabrina Wilkinson MD [address] [place] [address] Gastroenterology02/14/25documented as of this encounter
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
--- OUTSIDE RECORDS SUMMARY | 2025-03-28 07:58 | XMS_ITS | Clinical Summary ---
Author Organization [facility] Address [address] [place] [address] Care Team Providers Care Turbine Mechanic Name Role Phone Natividad Milton MD Unavailable [phone] Allergies Active AllergyReactionsCriticalityNoted DateCommentsSumatriptanOther,Unknown 03/19/2020 Tachycardia fainting Medications MedicationSigDispense QuantityRefillsLast FilledStart DateEnd DateStatus ARIPiprazole (Abilify) 20 MG tablet Take 30 mg by mouth in the morning.Active Calcium Carb-Cholecalciferol (Calcium Plus Vitamin D) 500-5 MG-MCG tablet Take 1 tablet by mouthActive levothyroxine (Synthroid, Levoxyl) 100 MCG tablet Take 50 mcg by mouth in the morning.Active metoprolol succinate XL (Toprol-XL) 100 MG 24 hr tablet Take 100 mg by mouth in the morning.Active omeprazole (PriLOSEC) [address] capsule Take 10 mg by mouth in the morning and 10 mg in the evening. Take before meals. Active Scithsc-Kyougzeqkuk-Jmdbasrcqe (Breztri Aerosphere) 160-9-4.8 MCG/ACT aerosol Indications:Chronic obstructive pulmonary disease, unspecified COPD type (HCC) Inhale 2 puffs in the morning and 2 puffs before bedtime. 10.7 g 5Active Active Problems No known active problems Encounters DateTypeDepartmentCare NnglGpxdelevces35/16/2025Telephone [facility] [address] [place] [address] Rosalba Ac DO 02/04/2025bstract [facility] [address] [place] [address] Rosalba Ac DO 01/29/2025Telephone [facility] [address] [place] [address] Beatrice Reyes MA 01/24/2025 10:15 AM EDTConsult [facility] [address] [place] [address] Rosalba Ac DO Chronic obstructive pulmonary disease, unspecified COPD type (HCC) (Primary Dx) 01/24/2025amboo flowsheet [facility] [address] [place] [address] Rosalba Ac DO 01/24/20250148Qlanpm43/22/2025bstract [facility] [address] [place] [address] Rosalba Ac DO from Last 3 Months Family History Medical HistoryRelationNameCommentsCancerMotherCancerSisterRelationNameStatus CommentsFatherDeceasedMotherDeceasedSisterDeceased Social History Tobacco UseTypesPacks/DayYears UsedDateSmoking Tobacco: NeverSmokeless Tobacco: Never Tobacco Cessation:Counseling Given: Not Answered Alcohol UseStandard Drinks/WeekCommentsNever0 (1 standard drink = 0.6 oz pure alcohol)CommentsUnknownSex and Gender InformationValueDate RecordedSex Assigned at BirthNot on fileLegal FdlHrrlkg85/15/2023 8:27 PM EDTGender Identity Not on fileSexual OrientationNot on file Last Filed Vital Signs Vital SignReadingTime TakenCommentsBlood Ecycbtxz404/9809 10:20 AM EDT Njlxz3864 10:20 AM EDTTemperature--Respiratory Rate--Oxygen Saturation 98%01/24/2025 10:20 AM EDTInhaled Oxygen Concentration--Gwdthp06.3 kg (188 lb) 01/24/2025 10:20 AM TQOBhlabs027.5 cm (5' 2 )01/24/2025 10:20 AM EDTBody Mass Index34.39001/24/2025 10:20 AM EDT Plan of Treatment DateTypeDepartmentCare Team (Latest Contact Info)Kgkufjzkovq21/16/2025 2:00 PM ESTOffice Visit [facility] [address] [place] [address] Rosalba Ac, DO [address] [place] [address] Health MaintenanceDue DateLast DoneCommentsCT Gfroeharbquq99/09/1954FIT-DNA 1953FIT1953FOBT1953 6521Kybitsddkeosf54/09/1904Gzivifhcu29/09/1994 COVID-19 Vaccine (2024- season)5107/01/2022, 02/12/2022, 09/18/2021, Additional history existsInfluenza Vaccine (#1)5006/05/2024, 04/30/2023, 02/12/2022, Additional history iebjgpIribwpctsir12/04/2034 04/25/2024, 03/14/2013Colorectal Cancer Giuimdmhh47/04/2034Pneumococcal Vaccine: 65+ ZhgdeJteuixtlq21/14/2025, 09/18/2021, 02/02/2020, [place] [address] Care Teams Team MemberRelationshipSpecialtyStart DateEnd Natividad Milton MD [address] [place] [address] Referring PhysicianFamily Medicine01/24/25
--- OUTSIDE RECORDS SUMMARY | 2025-03-28 07:59 | XMS_ITS | Encounter Summary ---
Author Organization [facility] Address [address] [place] [address] Care Team Providers Care Sock Ironer Name Role Phone Jose Burrell Jr. Primary Care Provider Sabrina Felix MD Unavailable [phone] Source Comments In the event this information is protected by the Federal Confidentiality of Alcohol and Drug AbusePatient Records regulations: The Federal rules restrict any use of the information to criminally investigate or prosecute any alcohol or drug abuse patient.[facility] Reason for Visit * ReasonCommentsPatient QuestionChest Xray question Encounter Details DateTypeDepartmentCare Team (Latest Contact Info)Bftutmdlsds17/05/2025Telephone Pre Anesthesia [address] [place], [place] [phone] Vivian Brown, MATHEUS Patient Question (Chest Xray question) Social History Tobacco UseTypesPacks/DayYears UsedDateSmoking Tobacco: FormerCigarettesPassive Smoke Exposure: NeverSmokeless Tobacco: NeverAlcohol UseStandard Drinks/Week CommentsNever0 (1 standard drink = 0.6 oz pure alcohol)Area Deprivation Index AnswerDate RecordedNational Score (1-100), lower number is lower risk75 02/21/2025State Score (1-10), lower number is lower qcbf601Data from: https://www.neighborhoodatlas.[facility]/. Last address used for fcvxlyqpoqj[address]02/21/[address]25CommentsNoSex and Gender Information ValueDate RecordedSex Assigned at BirthNot on fileLegal DejIuvyef48/02/2012 9:17 AM ESTGender IdentityNot on fileSexual OrientationNot on filedocumented as of this encounter Miscellaneous Notes * Telephone Encounter - Imelda Herman - 03/28/2025 7:20 AM EST DOS 04/05/2025 Patient called this morning, stated [facility] did not receive the chest xray order. She asked if I could fax the order to a different fax number. Order faxed to [phone] Confirmation of fax received. Imelda Herman (PACC RN) March 28, 2025 0724 AM * Telephone Encounter - Vivian Brown - 03/27/2025 3:35 PM EST Thank you Yaquelin! * Telephone Encounter - Mireille Sutton - 03/27/2025 3:04 PM EST DOS 04/05 Spoke with patient. She will complete her CXR ordered by Layla Hicks APRN, CNP locally. [facility] Fax # to xray dept: [phone] - faxed order. Requested results be faxed to fax. Layla Sutton RN PACC * Telephone Encounter - Vivian Brown - 03/27/2025 2:37 PM EST Patient left a message on PACC voicemail saying that she received a phone message after seeing PACCthat said she needed a chest xray. Pt would like to know if she can do chest xray closer to home? Please call patient and let her know. Thank you documented in this encounter Plan of Treatment DateTypeDepartmentCare Team (Latest Contact Info)Wgmbofgsacn79/14/2025 7:30 AM ESTHospital Encounter Admitting [address] [place] [address] [facility] [address] [place] [address] Preoperative examination [Z01.818], Hiatal hernia [K44.9]04/05/2025 7:30 AM EST - 04/05/2025 10:15 AM ESTSurgery Admitting [address] [place] [address] [facility] [address] [place] [address] LAPAROSCOPIC RPR PARAESOPHAGEAL HERNIA W/O FUNDOPLASTY W/ MESHNamePriority Associated DiagnosesDate/TimeLAPAROSCOPIC RPR PARAESOPHAGEAL HERNIA W/O FUNDOPLASTY W/ MESH Preoperative examination Hiatal hernia 04/05/2025 7:30 AM ESTdocumented as of this encounter Goals GoalPatient Goal TypeAssociated ProblemsRecent ProgressPatient-Stated?Author Autogenerated Goal Care PlanAutogenerated ProblemNoHurt, Alexisdocumented as of this encounter Visit Diagnoses Not on filedocumented in this encounter Additional Health Concerns Active ProblemsNoted DateDiagnosed DateAutogenerated Yddvdvl2502/23/2025documented as of this encounter Care Teams Team MemberRelationshipSpecialtyStart DateEnd Date Jose Burrell Jr. PCP - General09/07/00 Sabrina Wilkinson MD [address] [place] [address] Gastroenterology02/14/25documented as of this encounter
--- OUTSIDE RECORDS SUMMARY | 2025-03-28 07:59 | XMS_ITS | Clinical Summary ---
Author Organization [facility] Address [address] [facility], [address] [place] [address] Care Team Providers Care Financial Aid Manager Name Role Phone Bull Forrest MD Primary Care Provider [phone] Allergies No known active allergies Medications MedicationSigDispense QuantityRefillsLast FilledStart DateEnd DateStatus amLODIPine (NORVASC) 10 MG tablet amlodipine 10 mg tablet Take 1 tablet every day by oral route with meals for 90 days.Active amLODIPine (NORVASC) 5 MG tablet amlodipine 5 mg tablet Take 1 tablet every day by oral route.Active ARIPiprazole (ABILIFY) 20 MG tablet aripiprazole 20 mg tablet Take 1 tablet every day by oral route.Active FLUoxetine (PROZAC) 20 MG capsule fluoxetine 20 mg tablet Take 1 tablet 4 times a day by oral route.Active ibuprofen (IBU) 800 MG tablet Take 1 tablet by mouth every 6 hours as needed for Pain 30 tablet 04/01/2018Active Social History Tobacco UseTypesPacks/DayYears UsedDateSmoking Tobacco: Never Assessed CommentsUnknownSex and Gender InformationValueDate RecordedSex Assigned at Not on fileLegal NdxHvfbgi93/10/2013 9:20 AM ESTGender IdentityNot on fileSexual OrientationNot on file Last Filed Vital Signs Vital SignReadingTime TakenCommentsBlood Pbqrxaak683/8304/01/2018 11:58 AM EST Pydhb075504/01/2018 11:56 AM EEHCxyebfenlvy08.5 ??C (97.7 ??F)04/01/2018 11:58 AM ESTRespiratory Rate--Oxygen Uoyrwtfaok81%04/01/2018 11:56 AM ESTInhaled Oxygen Concentration--Merukt42.9 kg (207 lb)04/01/2018 11:56 AM AMLRsximi111 cm (5' 3 ) 04/01/2018 11:56 AM ESTBody Mass Index36.6704/01/2018 11:56 AM EST Plan of Treatment Not on file Insurance Care Teams Team MemberRelationshipSpecialtyStart Date Bull Forrest MD [address] [place] [address] PCP - GeneralFamily Tugcyskt27/10/18
--- OUTSIDE RECORDS SUMMARY | 2025-03-28 07:59 | XMS_ITS | Patient Health Record ---
Author Organization 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 Plastic Molds Name Role Phone Natividad Milton Primary Care Provider [facility] Feroz Raymundolisa Unavailable [phone] Richard Askew Unavailable [phone] Willi Torres Unavailable [phone] Shyanne Berg Unavailable Allergies Allergen (clinical drug ingredient) Drug/Non Drug Allergy documented on EMR Reaction Allergy Type Onset Date Status sumatriptan Imitrex Unknown Drug Allergy Active Results Component Value Reference Range Notes SCC- WRIST 3 VIEW LEFT [id number] Reviewed date:06/27/2024 09:42:44 AM Interpretation: Performing Lab: Notes/Report: SCC- WRIST 3 VIEW LEFT [id number] Reviewed date:08/09/2024 01:53:02 PM Interpretation: Performing Lab: Notes/Report: Reason For Referral Reason APPROVED for Hosp. C onsult 06/07 APPROVED for ORIF done 06/11 Diagnosis 1 Other intraarticular fracture of lower end of left radius, initial encounter for closed fracture (S52.572A) Referral Organization [facility] Referring Provider First Name Willi Referring Provider Last Name Brian Referring Provider Speciality Orthopedic Surgery Referred Organization [facility] Referred Address [address] [place],[address], General Notes Pau Tucker 11:56:12 AM > [...] encounter for closed fracture (S52.572A) Referral Organization [facility] Referring Provider First Name Willi Referring Provider Last Name [place] Referring Provider Speciality Orthopedic Surgery Referred Organization [facility] Referred Address [facility] [address] [place], [place],[address], General Notes Kierra Brice 06/20 09:09:27 AM >Need work slip for 06/11/2024 sx please. [facility] called asking for. Thanks so much, Pam Licona 06/20/2024 09:30:15 AM > IN UNDER CHART DOCS, Kierra Brice 06/20/2024 10:16:35 AM >noted. faxed [employer] Referral Priority Urgent Reason addressed,APPROVED f or casting done 06/25 Diagnosis 1 Other intraarticular fracture of lower end of left radius, initial encounter for closed fracture (S52.572N) Referral Organization [facility] Referring Provider First Name Willi Referring Provider Last Name [place] Referring Provider Speciality Orthopedic Surgery [facility] Referred Address [address],[place], [place],[address],[place] General Notes Pau Tucker 09:05:49 AM > [...] Priority Routine Reason APPROVED FOR P.T. AT [place], OFF WORK, WRIST [facility]ACE (PATIENT WILL GET IN [place] OFFICE) AD [employer] APPROVED for dme from 07/16 Diagnosis 1 Other intraarticular fracture of lower end of left radius, subsequent encounter for closed fracture with routine healing (S52.572D) Referral Organization [facility] Referring Provider First Name Willi Referring Provider Last Name Torres Referring Provider Speciality Orthopedic Surgery Referred Organization [facility] Referred Address [address] [place] [address],[address],[place], [place],[address], General Notes Pau Tucker 08:01:11 AM > Can you please add dx for displaced ulnar styloid fx, dictated from xray, Juan David miller Jenny 07/17/2024 10:34:00 AM >done, Pau Tucker 07/17/2024 11:19:39 AM > faxed note and c9 for PT, Pau Tucker 07/19/2024 10:44:12 AM > rcvd C9 Auth PT LT arm 12 visits 07/17 to 09/07, see attachment. Where at in [place] would she go for PT?, Pam Licona 07/19/2024 11:15:20 AM >[facility] 08/06/2024 02:30:15 PM >, Miranda Galloway 08/13/2024 03:17:21 PM >C9 for dme [id number] given on 07-16-24. Patient went from [place] to [facility] for this. Assuming SI needs [...] routine healing, subsequent encounter (S52.612D) Referral Organization [facility] Referring Provider First Name Willi Referring Provider Last Name Torres Referring Provider Speciality Orthopedic Surgery [facility] Referred Address [address],[place], [place],[address],[place] General Notes Pau Tucker 02:24:34 PM > [...] PM > found a letter on the [facility] website. dx S52.612 was allowed on 08/22. see attachment Referral Priority Routine Reason AD 09/10 note Diagnosis 1 Closed displaced fra cture of styloid process of left ulna with routine healing, subsequent encounter (S52.612D) Referral Organization [facility] Referring Provider First Name Willi Referring Provider Last Name Brian Referring Provider Speciality Orthopedic Surgery [facility] Referred Address [address],[place], [place],[address], General Notes Pau Tucker 03:42:17 PM > faxed note and updated [employer] Referral Priority Routine Reason APPROVED............ .....................NOT SCHEDULED....................................[facility] THORACIC AND LUMBAR TO BE DONE AT [place] Diagnosis 1 Compression fracture of T10 vertebra with routine healing, subsequent encounter (S22.070D) Diagnosis 2 Lumbar back pain (M5 4.50) Referral Organization [facility] Referring Provider First Name Rhett Referring Provider Last Name [place] Referring Provider Speciality Orthopedic Surgery Referred Organization [facility] Referred Address [place], [place], Procedure 1 MRI Thoracic Spine w /o Dye (73543) Procedure 2 MRI Lumbar Spine w/o Dye (69670) General Notes Marva Townsend 2024 12:43:02 PM >Kyle Kayla 11/02/2024 12:45:30 PM > WAITING ON TODAY'S OFFICE NOTE, Salma Wright 11/06/2024 09:24:12 AM > SONNY ACTIVE AND EFFECTIVE 05/23/24 PER AIM. AUTHORIZATION REQUEST SUBMITTED VIA [facility], PENDING AUTHORIZATION # [id number] WITH ANTICIPATED DETERMINATION DATE OF 11/16/24 PER AIM. CLINICALS FAXED TO [facility] @ [phone], Salma Wright 11/07/2024 07:57:33 AM > CASE PENDING PER AIM.Kyle Kayla 11/09/2024 08:57:51 AM > STILL PENDING PER AIM.Kyle Kayla 11/12/2024 08:19:14 AM > STILL PENDING WITH AIM.Kyle Kayla 11/13/2024 07:13:43 AM > PENDING, Salma Wright 11/14/2024 09:42:34 AM > PENDING WITH AIM STILL.Kyle Kayla 11/16/2024 07:49:35 AM > AUTHORIZATION # [id number] APPROVED AND VALID 11/06/24-02/03/25 PER AIM. SCANNED INTO CHART AND FAXED TO [facility].Kristian Dawn 11/16/2024 08:15:51 AM >faxed Referral Priority Routine Diagnosis 1 Closed displaced fra cture of styloid process of left ulna with routine healing, subsequent encounter (S52.612D) Referral Organization [facility] Referring Provider First Name Rhett Referring Provider Last Name [place] Referring Provider Speciality Orthopedic Surgery Referred Organization [facility] Referred Address [address], [place],[address], Referral Priority Routine Medications Medication SIG (Take, Route, Frequency, Duration) Notes Start Date End Date Status Abilify ActivePROzacActive Social History Tobacco Use: Social History Observation Description Date Details (start date - stop date) Never Smoker NA - NA AUDIT-C (Standard) Question Answer Notes Did you have a drink containing alcohol in the p ast year? No Kqmtcw1LlcsrmzwcedzboKcvskeagGclwdug Control (Standard) Question Answer Notes Tobacco use: Nonsmoker Problems Problem Type SNOMED Code ICD Code Onset Dates Problem Status W/U Status Risk Notes Problem 601921078 Wedge compressio n fracture of T11-T12 vertebra, initial encounter for closed fracture (S22.080A) ActiveconfirmedProblemClosed fracture of distal end of left radius ([id number])Other intraarticular fracture of lower end of left radius, subsequent encounter for closed fracturewith routine healing (S52.572D)Active vnjetwcbgCzayuhv20684965Nteoqn displaced fracture of styloid process of left ulna with routine healing, subsequent encounter (S52.612D)ActiveconfirmedProblem 40841719Wxiuhiavpday of intervertebral disc of lumbosacral region with discogenic back pain (M51.370)DczxfwhoaicbroaNptwqxd96374834Nuwgi intraarticular fracture of lower end of left radius, initial encounter for closed fracture (S5 2.572A)Inactiveconfirmed Vital Signs Height 5 ft 2 in in 12/03/2024 Cuwpnr525 lbs12/03/2024BMI36.58012/03/2024 Encounters Encounter Location Date Provider Diagnosis [facility] Inpatient [address] [place] [address] 06/07/2024 Shyanne jimenesBelcamp Other intraarticular fracture of lower end of left radius, initial encounter for closed fracture S52.572A and Fall, initial encounter W19.XXXA [facility] Outpatient [address] [place] [address] 06/11/2024 Willi Torres Other intraarticular fracture of lower end of left radius, initial encounter for closed fracture S52.572A [facility] [facility] [address] [place] [address] [place] [address] 06/25/2024 Shyanne jimenesBelcamp Other intraarticular fracture of lower end of left radius, subsequent encounter for closed fracture with routine healing S52.572D and Closed displaced fracture of styloid process of left ulna with routine healing, [facility].612[facility] [address] [place] [address] [place] [address] 07/16/2024 Shyanne jimenesBelcamp Other intraarticular fracture of lower end of left radius, subsequent encounter for closed fracture with routine healing S52.572D and Closed displaced fracture of styloid process of left ulna with routine healing, subsequent encounter S52.612D [facility] [facility] [address] [place] [address] [place] [address] 08/13/2024 Willi Torres Closed displaced fracture of styloid process of left ulna with routine healing, subsequent encounter S52.612D and Other intraarticular fracture of lower end of left radius, subsequent encounter for closed fracture with routine healing S52.572D [facility] [facility] [address] [place] [address] [place] [address] 09/10/2024 Willi Torres Closed displaced fracture of styloid process of left ulna with routine healing, subsequent encounter S52.612D and Other intraarticular fracture of lower end of left radius, subsequent encounter for closed fracture with routine healing S52.572D [facility] [address] [facility] [address] 11/02/2024 Richard Diglikarla Wedge compression fracture of T11-T12 vertebra, initial encounter for closed fracture S22.080A and Degeneration of intervertebral disc of lumbosacral region with discogenic back pain M51.370 [facility] [place] [address] [place] [address] 12/03/2024 Selvon David Compression fracture of T10 vertebra with routine healing, subsequent encounter S22.070D [facility] [address] [place] [address] 07/16/2024 Willi Torres Assessments Encounter Date Diagnosis (ICD Code) Assessment Notes Treatment Notes Treatment Clinical Notes Section Notes 07/16/2024 Other intraarticular fracture of lower end of left radius, subsequent encounter for closed fracture with routine healing (ICD-10 - S52.572D) 07/16/2024losed displaced fracture of styloid process of left ulna with routine healing, subsequent encounter (ICD-10 - S52.612D)08/13/2024Other intraarticular fracture of lower end of left radius, subsequent encounter for closed fracture with routine healing (ICD-10 - S52.572D)08/13/2024losed displaced fracture of styloid process of left ulna with routine healing, subsequent encounter (ICD-10 - S52.612D)09/10/2024Other intraarticular fracture of lower end of left radius, subsequent encounter for closed fracturewith routine healing (ICD-10 - S52.572D) 09/10/2024losed displaced fracture of styloid process of left ulna with routine healing, subsequent encounter (ICD-10 - S52.612D)11/02/2024Wedge compression fracture of T11-T12 vertebra, initial encounter for closed fracture (ICD-10 - S22.080A) 1. T10 vertebral compression fracture, questionable T11-T12 vertebral compression fracture 2. L5-S1 degenerative disc disease 3. Low back pain 11/02/2024Degeneration of intervertebral disc of lumbosacral region with discogenic back pain (ICD-10 - M51.370) 1. T10 vertebral compression fracture, questionable T11-T12 vertebral compression fracture 2. L5-S1 degenerative disc disease 3. Low back pain 12/03/2024ompression fracture of T10 vertebra with routine healing, subsequent encounter (ICD-10 - S22.070D)06/07/2024Other intraarticular fracture of lower end of left radius, initial encounter for closed fracture (ICD-10 - S52.572A) 06/07/2024Fall, initial encounter (ICD-10 - W19.XXXA)06/11/2024Other intraarticular fracture of lower end of left radius, initial encounter for closed fracture (ICD-10 - S52.572A)06/25/2024Other intraarticular fracture of lower end of left radius, subsequent encounter for closed fracturewith routine healing (ICD-10 - S52.572D)06/25/2024losed displaced fracture of styloid process of left ulna with routine healing, subsequent encounter (ICD-10 - S52.612D)06/25/2024OtherPatient is doing well 2 weeks s/p left distal radius ORIF. Given she does have a ulnar styloid fracture I placed her in a short arm cast. 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 We will see her back in 3 weeks to remove cast and repeat x-rays of the wrist.07/16/2024OtherToday we will discontinue patient's cast and I have ordered a cock up wrist brace for her to wear with activity. I have also given her a prescription for physical therapy. I will keep her off work until her next appointment. We will see her back in 4 weeks to repeat x-rays and reassess her progress.08/13/2024Other Patient is doing very well after her distal radius and ulna fractures. We will continue to keep heroff of work. She will follow-up in 1 month to repeat x-rays and reassess her progress. At that timewe would likely consider starting to get her back into work with some restrictions. 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 Import medication 09/10/2024Other Patient is doing well after her ORIF of her left distal radius fracture and ulna fractures. We willreturn her to work without restrictions. She will follow-up on an as-needed basis. Import medication 11/02/2024Other Plan established by Dr. Norton. At this [...] degenerative disc disease 3. Low back pain 12/03/2024Other Mary Vick presents with worsening lower back pain and a history of T10 compression fracture. Thoracic compression fracture (T10) with lower back pain Assessment: Patient has a known T10 compression fracture visible on MRI. She reports increased lower back pain this week, initially suspecting another fracture. However, MRI shows no new fractures inthe lower back. The T10 fracture appears stable with some fluid changes noted. Lower spine exhibitsstenosis and degeneration, which may contribute to the patient's pain. Physical exam revealed tendinitis over the posterior thoracolumbar spine region and fibrocysts with bilateral lower extremity sensations intact throughout. Plan - Prescribe thoracolumbar brace with extension - Recommend wearing brace for 4-6 weeks - Return to work at [employer] with no restrictions starting next Tuesday - [...] 080 11/02/2024 SCC- WRIST 3 VIEW LEFT 15990 08/13/2024 SCC- PT/OT EVAL AND TREAT 3X/WEEK FOR 6 WEEKS 07/16/2024 SCC- WRIST 3 VIEW LEFT 31965 09/10/2024 MRI : Lumbosacral Spine W/O Contrast - 7 2148 11/02/2024 MRI : Thoracic Spine W/O Contrast - 7214 6 11/02/2024 Insurance Providers Payer Name Payer Address Payer Phone Subscriber Number Group Number Insured Name Patient Relationship to Insured Coverage Start Date Coverage End Date Medicare [place] [employer] [address] [place] [address] [id number] [facility] Self - patient is the insured [address] [employer] [employer], [id number] CONFIDENTIAL TO [facility] DEPT [place], [place] [id number] lt wrist & ribsBLANTOAYO Friaself - patient is the [id number] 2024 Medical (General) History Medical History History ICD Code Respiratory problems: Lung DiseaseHypothyroidismHigh Blood PressureDepressionMental Illness:Anxiety Surgical History Surgery Date(Month/Year) ORIF of a left distal radius fracture
--- OUTSIDE RECORDS SUMMARY | 2025-03-28 07:59 | XMS_ITS | CCD ---
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 systemMissing Attachment - attachment storage system not supported [id number] Can be viewed in source systemMissing Attachment - attachment storage system not supported [id number] Can be viewed in source systemMissing Attachment - attachment storage system not supported [id number] Can be viewed in source system Missing Attachment - attachment storage system not supported [id number] Can be viewed in source systemMissing Attachment - attachment storage system not supported [id number] Can be viewed in source systemH&P Updateon 02-11-2025H&P UpdateH&P Update Patient: MARY VICK Age: 69 years Sex: Female : 1955 Associated Diagnoses: None Author: Jaja GRANT, Sabrina Cruz Preoperative Information Chief compliant/Indication for procedure: HH Chief Complaint as above Review of Systems [...] list: All Problems Anxiety / SNOMED CT 85811121 / Confirmed Bipolar I disorder / SNOMED CT 7151868479 / Confirmed BMI 35.0-35.9,adult / SNOMED CT 012624545 / Confirmed Chronic obstructive pulmonary disease / SNOMED CT 881715589 / Confirmed Class 3 obesity / SNOMED CT 2424426446 / Confirmed Continuous opioid dependence / SNOMED CT 875777779 / Confirmed Diverticulosis / SNOMED CT 2334506355 / Confirmed Gastroesophageal reflux disease / SNOMED CT 637486779 / Confirmed Hearing loss / SNOMED CT 04747759 / Confirmed Hiatal hernia / SNOMED CT 009243848 / Confirmed Hypercholesterolemia / SNOMED CT 21006904 / Confirmed Hypertension / SNOMED CT 6974838834 / Confirmed Hypothyroidism / SNOMED CT 72141663 / Confirmed Lumbar radiculopathy / SNOMED CT 747471168 / Confirmed Migraine / SNOMED CT 40396948 / Confirmed Osteoporosis / SNOMED CT 113823149 / Confirmed Pulmonary hypertension / SNOMED CT 598855609 / Confirmed Restless leg syndrome / SNOMED CT 85515137 / Confirmed Screening for malignant neoplasm of colon / SNOMED CT 857554342 / Confirmed Sleep apnea / SNOMED CT 155714384 / Confirmed SVT (supraventricular tachycardia) / SNOMED CT 48458717 / Confirmed Weight loss / SNOMED CT 571314197 / Confirmed, Active Problems (22) Anxiety Bipolar [...] of lung Mother Sister Procedure history: Colonoscopy (150746355) on 04/25/2024 at 68 Years. Colonoscopy (771917259) on 03/14/2013 at 57 Years. Tubal ligation (523721309). Appendectomy (582080143). Cataract extraction (08762051). Mandible (337225448). [facility] - Total abdominal hysterectomy and bilateral salpingo-oophorectomy (2328289531). Blepharoplasty (071035037). Dilation and curettage (40110356). Dilation and curettage (33739820). Physical Examination Vital Signs (last 24 hrs) [...] Abdomen: Soft, NTND Impression and Plan Diagnosis: -EGDNsarahMercy Health St. Joseph Warren HospitalComment on above:Result Comment: Electronically Signed By: Sabrina Wilkinson MD\.br\Date and Time Signed: 02/11/2509:46 EDTMain OR PACU I Recordon 66-28-9091Ovjw OR PACU I RecordMain OR PACU I Record PACU Phase I Document Type FT Summary Primary Physician: Sabrina Wilkinson MD Finalized Date/Time: 02/11/25 10:51:51 Pt. Name: TURNERMARY/Sex: 1955 Female Med Rec #: [id number] Physician: Sabrina Wilkinson MD Financial #: [id number] Pt. Type: O Room/Bed: / Admit/Disch: 02/11/25 [...] I Outcomes Met? Yes Last Modified By: Pasquale JARVIS, Denisse 02/11/25 10:51:43 Post-Care Text: The patient demonstrates [...] Signatures Signed By: Denisse Giordano RN 02/11/25 10:51NoDoctors HospitalMain OR Preoperative Recordon 81-84-5438Yalt OR Preoperative RecordMain OR Preoperative Record Holding Area Document Type FT Summary Primary Physician: Sabrina Wilkinson MD Finalized Date/Time: 02/11/25 08:28:47 Pt. Name: TURNERMARY/Sex: 1955 Female Med Rec #: [id number] Physician: Sabrina Wilkinson MD Financial #: [id number] Pt. Type: O Room/Bed: / Admit/Disch: 02/11/25 [...] Signatures Signed By: Lorelei David RN 02/11/25 08:28[facility]36on [id number] lab results from : MD Oumou Martinez [...] Tuesday and again on Tuesday. Orders sent. [facility] HospitalAmbulatory Visit Summaryon 01-31-2025 Ambulatory Visit SummaryAmbulatory Visit Summary MARY VICK :1955 Visit Date:01/31/2025 Ambulatory Visit Instructions Your Diagnosis Hiatal hernia BMI 35.0-35.9,adult Diverticulosis Gastroesophageal reflux disease Weight loss Your Care Team Attending Physician - Jaja GRANT, Sabrina Cruz Primary Care Physician - Luisito Umana [...] signed up for this yet, please contact [employer] at [phone] to get signed up today. Language Information Language assistance services are available as needed. [facility] HospitalGastroenterology Office/Clinic Noteon 70-17-7652Zyqxobageuobeqam Office/Clinic NoteGastroenterology Office/Clinic Note Chief Complaint ref by sara for [facility] Staff NEW, 69 year old female who [...] mg daily Obtain CT [facility] Obtain EGD to evaluate hiatal hernia and [...] Primary malignant neoplasm of lung: Mother and Sister.[facility] HospitalComment on above:Result Comment: Electronically Signed By: Jaja GRANT, Sabrina Cruz\.br\Date and Time Signed: 01/31/2510:08 EDTOffice Visiton 01-16-2025 Follow-up [id number] Mary Vick 1955 F Date Provider Department Center 01/16/2025 Shabbir-MARVIN SAENZ CARD Sawyer Coyle Family History Problem Relation Age of Onset Cancer Mother Cancer Sister Family Status - Relation Status Age at Mother Father Sister Level of Service:22258 [place] OFFICE/OUTPATIENT ESTABLISHED MOD MDM [facility]Amb[facility] Summaryon [facility]-20-2024 Ambulatory Visit SummaryAmbulatory Visit Summary MARY VICK :1955 Visit Date:03/20/2024 Ambulatory Visit Instructions Your Care Team Attending Physician - Anderson PULLIAM MD Primary Care Physician - Luisito Umana MD [...] you for choosing us for your care. [facility] HospitalBNPon 24-15-2390Ccvlzwnfazh peptide B (Bld) [Mass/Vol]261.0 pg/mLNormal<=900.0The Doctors HospitalComment on above:Performed By: #### BNP, HSTROPN, CMP #### [facility] [address] [address] [address] Deborah Snell AUTO DIFFon 36-06-6584VJBE #0.1 103/ulNormal0.0-0.1The Doctors HospitalComment on above:Performed By: #### CBC ####[facility] [address] [address]Dr.Deborah ChangBasophils/100 WBC (Bld)0.8 %Normal0.2-2.0The Doctors HospitalComment on above:Performed By: #### CBC ####[facility] [address] [address]Dr.Ann-Marielan ChangEO #0.2 103/ulNormal0.0-0.7The Doctors HospitalComment on above:Performed By: #### CBC ####[facility] [address] [address]Dr.Deborah ChangEosinophils/100 WBC (Bld)2.6 %Normal 0.9-7.0The Doctors HospitalComment on above:Performed By: #### CBC ####[facility] [address] [place], [place] [address]Dr.Deborah Mohan Erythrocyte distribution width (RBC) [Ratio]20.5 %Critically high11.0-15.0The Doctors HospitalComment on above:Performed By: #### CBC ####[facility] [address] [place], [place] [address]Dr.Deborah MohanHematocrit (Bld) [Volume fraction]30.1 %Critically low36.0-48.0The Doctors HospitalComment on above:Performed By: #### CBC ####[facility] [address] [place], [place] [address]Dr.Deborah MohanHemoglobin (Bld) [Mass/Vol]9.2 g/dL Critically low12.0-16.0The Doctors HospitalComment on above:Performed By: #### CBC ####[facility] [address]uginwo[address] [place], [place] [address]Dr. Ann-Mariemich ChangIG #0.05 10e3/ulCritically high0.00-0.03The Doctors HospitalComment on above:Performed By: #### CBC ####[facility] [address] [place], [place] [address]Dr.Ann-Mariemich MohanIG %0.6 %Critically high0.0-0.5The Doctors HospitalComment on above:Performed By: #### CBC ####[facility] [address] [place], [place] [address]Dr.Deborah MohanLYMPH #2.0 103/ulNormal1.2-3.8The Doctors HospitalComment on above:Performed By: #### CBC ####[facility] [address] [place], [place] [address]Dr. Deborah MohanLymphocytes/100 WBC (Bld)25.9 %Afvmkc69.5-60.0[facility] Comment on above:Performed By: #### CBC ####[facility] [address] [place], [place] [address]Dr.Deborah MohanMANUAL DIFF REQNONormalThe Doctors HospitalComment on above:Performed By: #### CBC ####[facility] [address] [address]Dr.Deborah MarquesH (RBC) [Entitic mass]25.7 pgCritically low26.7-34.0The Doctors HospitalComment on above:Performed By: #### CBC ####[facility] [address] [place], [place] [address]Dr.Deborah MarquesHC (RBC) [Mass/Vol]30.6 g/dLNormal 29.9-35.2The Doctors HospitalComment on above:Performed By: #### CBC ####[facility] [address] [place], [place] [address]Dr. Ann-Mariemich MohanV (RBC) [Entitic vol]84.1 bDLufzuq43.0-99.0[facility] Comment on above:Performed By: #### CBC ####[facility] [address] [place], [place] [address]Dr.Deborah MohanMONO #0.4 103/ulNormal0.3-0.8 The Doctors HospitalComment on above:Performed By: #### CBC ####[facility] E[address] [place], [place] [address]Dr.Ann-Mariemich Mohan Monocytes/100 WBC (Bld)5.6 %Normal1.7-12.0The Doctors HospitalComment on above: Performed By: #### CBC ####[facility] [address]riu[address] [place], [place] [address]Dr.Deborah MohanNEUT #5.0 103/ulNormal1.4-6.5The Doctors HospitalComment on above:Performed By: #### CBC ####[facility] [address] [place], [place] [address]Dr.Ann-Mariemich MohanNeutrophils/100 WBC (Bld)64.5 %Rplxra52.0-75.0The Doctors HospitalComment on above:Performed By: #### CBC ####[facility] [address] [place], [place] [address]Dr.Deborah MohanPlatelet mean volume (Bld) [Entitic vol]9.7 fLNormal9.5-13.5 The Doctors HospitalComment on above:Performed By: #### CBC ####[facility] [address] [address]Dr.Deborah VffzdXXH023 103/rtNmuleo949-063Akk Doctors HospitalComcaro center on above:Performed By: #### CBC ####[facility] [address] [address]Dr. Deborah ChangRBC3.58 106/ulCritically low4.20-5.40The Doctors HospitalComment on above:Performed By: #### CBC ####[facility] [address] [place], [place] [address]Mg.Deborah ChangWBC7.7 103/ulNormal4.0-11.0The Doctors HospitalComment on above:Performed By: #### CBC ####[facility] [address] [address]Dr.Deborah ChangCTA CHEST WO W CONon 22-10-1578RXP CHEST WO W CONEXAMINATION: CTA CHEST WO [...] Electronically authenticated by: ROBERT CONDON Date: 2022-09-17 13:[address] [place] [address]-DIMERon 50-62-6743B-DIMER1.31 mg/L FEUCritically high<=0.59 The [facility] HospitalComcaro center on above:Performed By: #### ANARF #### [facility] [address] [place] [address] Dr. Deborah Klein-DIMER COMMENTSSEE [facility] on above:Result Comment: Increases in D-Dimer [...] generalized hospitalization. Performed By: #### ANARF #### [facility] [address] [place] [address] Dr. Deborah MohanPROF 14(COMP METB)on 16-25-6821Qwnejff [Mass/Vol]3.3 g/dL Critically low3.4-5.0[facility] on above:Performed By: #### BNP, HSTROPN, CMP #### [facility] [address] [place] [address] Dr. Deborah MohanAlbumin/Globulin [Mass ratio]1.0 {ratio}NormalThe [facility] on above:Performed By: #### BNP, HSTROPN, CMP #### [facility] [address] [place] [address] Dr. Deborah Bishop [Catalytic activity/Vol]57 U/NJliqdw05-401Uqx [facility] on above:Performed By: #### BNP, HSTROPN, CMP #### [facility] [address] [place] [address] Dr. Deborah Chacon [Catalytic activity/Vol]23 U/XAzcmdi85-38Hrt [facility] on above:Performed By: #### BNP, HSTROPN, CMP #### [facility] [address] [address] [address] Deborah Funes gap [Moles/Vol]9.2 mmol/LNormalThe Doctors HospitalComment on above:Performed By: #### BNP, HSTROPN, CMP #### [facility] [address] [address] [address] Deborah MohanAST [Catalytic activity/Vol]17 U/RGrdwxc59-86Arr Doctors HospitalComment on above:Performed By: #### BNP, HSTROPN, CMP #### [facility] [address] [place] [address] Dr. Deborah MohanBilirubin [Mass/Vol]0.2 mg/dLNormal0.2-1.0[facility] Comment on above:Performed By: #### BNP, HSTROPN, CMP #### [facility] [address] [place] [address] Dr. Deborah MohanCalcium [Mass/Vol]8.9 mg/dLNormal8.5-10.1[facility] Comment on above:Performed By: #### BNP, HSTROPN, CMP #### [facility] [address] [address] [address] Deborah MohanChloride [Moles/Vol]106 mmol/ZZotbzr77-134Pwj [facility] Comment on above:Performed By: #### BNP, HSTROPN, CMP #### [facility] [address] [address] [address] Deborah MohanCO2 [Moles/Vol]28.3 mmol/EQrbbkh55.0-32.0[facility] Comment on above:Performed By: #### BNP, HSTROPN, CMP #### [facility] [address] [address] [address] Debroah MohanCreatinine [Mass/Vol]0.97 mg/dLNormal0.55-1.02The Doctors HospitalComment on above:Performed By: #### BNP, HSTROPN, CMP #### [facility] [address] [address] [address] Yilan ChangEGFR-AF GEORGIAN>60Normal>=60The Doctors HospitalComment on above:Performed By: #### BNP, HSTROPN, CMP #### [facility] [address] [place] [address] Dr. Cabrera ChangEGFR-NON AF YUOYWOIT31 mL/min/1.40a9Ixlgjxluju low>=60The Doctors HospitalComment on above:Performed By: #### BNP, HSTROPN, CMP #### [facility] [address] [place] [address] Dr. Deborah MohanGlobulin (S) [Mass/Vol]3.4 g/dLNormalThe Doctors HospitalComment on above:Performed By: #### BNP, HSTROPN, CMP #### [facility] [address] [place] [address] Dr. Deborah MohanGlucose [Mass/Vol]103 mg/hSBwilaw99-577PfePaulding County Hospital Comment on above:Performed By: #### BNP, HSTROPN, CMP #### [facility] [address] [place] [address] Dr. Deborah MohanPotassium [Moles/Vol]3.5 mmol/LNormal3.5-5.1[facility] Comment on above:Performed By: #### BNP, HSTROPN, CMP #### [facility] [address] [place] [address] Dr. Deborah MohanProtein [Mass/Vol]6.7 g/dLNormal6.4-8.2[facility] Comment on above:Performed By: #### BNP, HSTROPN, CMP #### [facility] [address] [place] [address] Dr. Deborah MohanSodium [Moles/Vol]140 mmol/GNtosvm373-196HqbPaulding County Hospital Comment on above:Performed By: #### BNP, HSTROPN, CMP #### [facility] [address] [place] [address] Dr. Deborah MohanUrea nitrogen [Mass/Vol]21.0 mg/dLCritically high7.0-18.0The Doctors HospitalComment on above:Performed By: #### BNP, HSTROPN, CMP #### [facility] [address] [address] [address] Deborah MohanUrea nitrogen/Creatinine [Mass ratio]21.6 mg/mgNoBethesda North HospitalComcaro center on above:Performed By: #### BNP, HSTROPN, CMP #### [facility] [address] [address] [address] Deborah Lovett, HIGH SENSITIVITYon 83-84-7313TORIPN2.0 pg/mLNormal 4.0-51.3The [facility] HospitalComcaro center on above:Result Comment: CUT-OFF POINTS HAVE BEEN ESTABLISHED BASED ON THE FOURTH UNIVERSAL DEFINITIONS OF MYOCARDIAL INFARCTION. THE UPPER REFERENCE LIMIT (URL) OF TROPONIN, DEFINED THE 99TH PERCENTILE OF cTnI DISTRIBUTION IN A REFERENCE POPULATION, HAS BEEN CONFIRMED THE DECISION THRESHOLD FOR VA DIAGNOSIS.Performed By: #### BNP, HSTROPN, CMP #### [facility] [address] [address] [address] Deborah MohanUS FREDA DOP LEG BILon [id number] FREDA DOP LEG BILEXAM: US FREDA DOP [...] Electronically authenticated by: RAFIQ RON Date: 2022-09-17 11:54[facility] CenterXR CHE[facility] 1 Von [id number] CHEST 1 VEXAMINATION: XR CHEST 1 V [...] authenticated by: ROBERT CONDON Date: 2022-09-17 11:36NormalThe [facility] HospitalYMPTOMATIC COVID-19 ANTIGENon [id number] StatementSEE BELOW NormalThe Doctors HospitalComment on above:Result Comment: This test has not [...] is revoked sooner.Performed By: #### ANARF #### [facility] [address] [place] [address] Dr. Deborah Sotelo-CoV-2 (COVID-19) RNA ERIC+probe Ql (Unsp spec)Positive AbnormalNEGATIVEThe Doctors HospitalComment on above:Performed By: #### ANARF #### [facility] [address] [place] [address] Dr. Deborah Armendariz THYROXINE INDEX T7on 18-70-7389FGV1.39Huihuq1.30-4.50The Doctors HospitalComment on above:Performed By: #### BNP, HSTROPN, CMP #### [facility] [address] [place] [address] Dr. Deborah MohanT3U34.0 %Kevjml38.0-39.0The Doctors HospitalComment on above: Performed By: #### BNP, HSTROPN, CMP #### [facility] [address] [place] [address] Dr. Deborah MohanT4 [Mass/Vol]9.70 ug/dLNormal4.80-13.90[facility] Comment on above:Performed By: #### BNP, HSTROPN, CMP #### [facility] [address] [place] [address] Dr. Deborah Hall 35-95-1439Xhte [Mass/Vol]14.0 ug/dLCritically low 50.0-170.0[facility] HospitalComment on above:Performed By: #### IRON ####[facility] [address] [address]Dr. Deborah Franks 29-30-7590EWP4.463 uIU/mLNormal0.358-3.740[facility] Comment on above:Performed By: #### ANARF #### [facility] [address] [place] [address] Dr. Deborah Cordova AUTO DIFFon 58-97-0971KVOT #0.1 103/ulNormal0.0-0.1The Doctors HospitalComment on above:Performed By: #### ANARF #### [facility] [address] [place] [address] Dr. Deborah Quintanillasophils/100 WBC (Bld)0.8 %Normal0.2-2.0[facility] Comment on above:Performed By: #### ANARF #### [facility] [address] [place] [address] Dr. Deborah Garcia #0.3 103/ulNormal0.0-0.7The Doctors HospitalComment on above: Performed By: #### ANARF #### [facility] [address] [place] [address] Dr. Deborah Ordoñezosinophils/100 WBC (Bld)2.6 %Normal0.9-7.0[facility] Comment on above:Performed By: #### ANARF #### [facility] [address] [place] [address] Dr. Deborah Ordoñezrythrocyte distribution width (RBC) [Ratio]19.9 %Critically high 11.0-15.0[facility] HospitalComment on above:Performed By: #### ANARF #### [facility] [address] [place] [address] Dr. Deborah MohanHematocrit (Bld) [Volume fraction]28.8 %Critically low36.0-48.0 The Doctors HospitalComment on above:Performed By: #### ANARF #### [facility] [address] [address] [address] Deborah MohanHemoglobin (Bld) [Mass/Vol]8.9 g/dLCritically low12.0-16.0The Doctors HospitalComment on above:Performed By: #### ANARF #### [facility] [address] [address] [address] Deborah MohanIG #0.07 10e3/ulCritically high0.00-0.03[facility] Comment on above:Performed By: #### ANARF #### [facility] [address] [address] [address] Deborah Nguyen %0.7 %Critically high0.0-0.5The Doctors HospitalComment on above:Performed By: #### ANARF #### [facility] [address] [address] [address] Deborah Chapman #1.9 103/ulNormal1.2-3.8The Doctors HospitalComment on above:Performed By: #### ANARF #### [facility] [address] [address] [address] Deborah Solanomphocytes/100 WBC (Bld)18.2 %Critically low20.5-60.0The Doctors HospitalComment on above:Performed By: #### ANARF #### [facility] [address] [address] [address] Deborah MohanMANUAL DIFF REQNONormalThe Doctors HospitalComment on above: Performed By: #### ANARF #### [facility] [address] [place] [address] Dr. Deborah Lima (RBC) [Entitic mass]25.3 pgCritically low26.7-34.0The Doctors HospitalComment on above:Performed By: #### ANARF #### [facility] [address] [address] [address] Deborah ViverosHC (RBC) [Mass/Vol]30.9 g/vSIctkvc17.9-35.2The Doctors HospitalComment on above:Performed By: #### ANARF #### [facility] [address] [place] [address] Dr. Deborah ViverosV (RBC) [Entitic vol]81.8 aOIlzfly77.0-99.0The [facility] HospitalComment on above:Performed By: #### ANARF #### [facility] [address] [place] [address] Dr. Deborah Merida #0.7 103/ulNormal0.3-0.8The Doctors HospitalComment on above:Performed By: #### ANARF #### [facility] [address] [place] [address] Dr. Deborah Angocytes/100 WBC (Bld)7.1 %Normal1.7-12.0[facility] Comment on above:Performed By: #### ANARF #### [facility] [address] [place] [address] Dr. Deborah Flower #7.4 103/ulCritically high1.4-6.5[facility] Comment on above:Performed By: #### ANARF #### [facility] [address] [place] [address] Dr. Deborah Fraustoutrophils/100 WBC (Bld)70.6 %Qmocbx56.0-75.0The Doctors HospitalComment on above:Performed By: #### ANARF #### [facility] [address] [place] [address] Dr. Deborah Brittlet mean volume (Bld) [Entitic vol]9.7 fLNormal9.5-13.5The Doctors HospitalComment on above:Performed By: #### ANARF #### [facility] [address] [place] [address] Dr. Deborah MohanPLT398 103/iiOuuqqw918-566Ych Sawyer HospitalComment on above: Performed By: #### ANARF #### [facility] [address] [address] [address] Deborah MohanRBC3.52 106/ulCritically low4.20-5.40The [facility] on above:Performed By: #### ANARF #### [facility] [address] [address] [address] Deborah MohanWBC10.5 103/ulNormal4.0-11.0The Doctors HospitalComment on above:Performed By: #### ANARF #### [facility] [address] [address] [address] Deborah MohanPROF 14(COMP METB)on 88-03-2771Xkuqukz [Mass/Vol]3.2 g/dL Critically low3.4-5.0The [facility] on above:Performed By: #### PHILLIP, CMP ####[facility] [address] [address]Dr. Deborah MohanAlbumin/Globulin [Mass ratio]0.9 {ratio}NormalThe [facility]. [facility] on above:Performed By: #### PHILLIP, CMP ####[facility] Lbhynumovn[address]67 [address] Deborah ChangALP [Catalytic activity/Vol]89 U/UCgqawc41-199Oti [facility] on above:Performed By: #### PHILLIP, CMP ####[facility] [address] [address]Dr. Ann-Marielan ChangALT [Catalytic activity/Vol]17 U/LNormal 14-59The [facility] Centerment on above:Performed By: #### HOLLYTRMICHOACANO, CMP ####[facility] [address] [address]DrAnkur MohanAnion gap [Moles/Vol]11.2 mmol/LNormalThe Doctors HospitalComment on above:Performed By: #### HOLLYTRMICHOACANO, CMP ####[facility] [address]ir[address] [address]Dr. Yilan ChangAST [Catalytic activity/Vol]14 U/L Critically gyp02-93Frq Doctors HospitalComment on above:Performed By: #### HSTROPN, CMP ####[facility] [address] [address]Dr. Yilan ChangBilirubin [Mass/Vol]0.2 mg/dLNormal0.2-1.0The Doctors HospitalComment on above:Performed By: #### HSTROPN, CMP ####[facility] [address] [place], [place] [address]Dr. Yilan ChangCalcium [Mass/Vol]9.1 mg/dLNormal8.5-10.1The Doctors HospitalComment on above:Performed By: #### HSTROPN, CMP ####[facility] H[address] [place], [place] [address]Dr. Yilan ChangChloride [Moles/Vol]104 mmol/LNormal 98-107The Doctors HospitalComment on above:Performed By: #### HSTROPN, CMP ####[facility] [address] [place], [place] [address]r. Yilan ChangCO2 [Moles/Vol]24.8 mmol/JXgqphj34.0-32.0The Doctors HospitalComment on above:Performed By: #### HSTROPN, CMP ####[facility] [address]ex[address] [place], [place] [address]Dr. Yilan ChangCreatinine [Mass/Vol]1.21 mg/dLCritically high0.55-1.02The Doctors HospitalComment on above:Performed By: #### HSTROPN, CMP ####[facility] [address] [place], [place] [address]Dr. Yilan ChangEGFR-AF MBKNKNJV90 mL/min/1.73m2 Critically low>=60The Doctors HospitalComment on above:Performed By: #### HSTROPN, CMP ####[facility] Islwrprxgz[address] [place], [place] [address]Dr. Yilan ChangEGFR-NON AF USLCYMOG90 mL/min/1.02o0Nujxtcrnhb low>=60The [facility] Centerment on above:Performed By: #### PHILLIP, CMP ####[facility] [address] [address]Dr. Yilan Mohan Globulin (S) [Mass/Vol]3.7 g/dLNormalThe Doctors HospitalComment on above: Performed By: #### HSTROPAltagracia, CMP ####[facility] [address] [address]Dr. Yilan ChangGlucose [Mass/Vol]118 mg/dLCritically xpoj82-711Szn Doctors HospitalComment on above:Performed By: #### HSTRMICHOACANO, CMP ####[facility] [address] [address]Dr. Yilan ChangPotassium [Moles/Vol]4.0 mmol/LNormal3.5-5.1[facility] Comment on above:Performed By: #### HSTROPAltagracia, CMP ####[facility] [address]ofq[address]vlq[address] [place], [place] [address]Dr. Yilan ChangProtein [Mass/Vol]6.9 g/dLNormal6.4-8.2The [facility] Centerment on above:Performed By: #### HSTRMICHOACANO, CMP ####[facility] [address]ks[address] [place], [place] [address]Dr. Yilan ChangSodium [Moles/Vol]136 mmol/LNormal 136-145The Doctors HospitalComment on above:Performed By: #### HSTROPN, CMP ####[facility] [address]my[address] [place], [place] [address]Dr. Yilan ChangUrea nitrogen [Mass/Vol]28.0 mg/dLCritically high7.0-18.0The [facility] Centerment on above:Performed By: #### HSTROPN, CMP ####[facility] [address]tdoaf[address] [place], [place] [address]Dr. Yilan ChangUrea nitrogen/Creatinine [Mass ratio]23.1 mg/mgNoLicking Memorial Hospitalment on above:Performed By: #### HSTROPN, CMP ####[facility] [address] [place], [place]Dr. Deborah Lovett, HIGH SENSITIVITYon 62-42-4575QTXVXG2.9 pg/mLNormal4.0-51.3The [facility] on above: Result Comment: CUT-OFF POINTS HAVE BEEN ESTABLISHED BASED ON THE FOURTH UNIVERSAL DEFINITIONS OF MYOCARDIAL INFARCTION. THE UPPER REFERENCE LIMIT (URL) OF TROPONIN, DEFINED THE 99TH PERCENTILE OF cTnI DISTRIBUTION IN A REFERENCE POPULATION, HAS BEEN CONFIRMED THE DECISION THRESHOLD FOR VA DIAGNOSIS.Performed By: #### HSTROPAltagracia, CMP ####[facility] [address] [place], [place]Dr. Deborah MohanXR CHEST 1 Von 14-45-9328YI CHEST 1 VEXAM: XR CHEST 1 V [...] Electronically authenticated by: ANDERSON ALMANZAR Date: 2022-04-07 03:[address] [place], [place] [address]HEMOGLOBINon 03-14-3965Tucetiithp (Bld) [Mass/Vol]9.2 g/dL Critically low12.0-16.0The [facility] on above:Performed By: #### ANARF #### [facility] [address] [place], [place] [address] Dr. Deborah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
--- OUTSIDE RECORDS SUMMARY | 2025-03-28 07:59 | XMS_ITS | Encounter Summary ---
Author Organization [facility] Address [address] [place] [address] Care Team Providers Care Bologna Lacer Name Role Phone Jose Burrell Jr. Primary Care Provider Sabrina Felix MD Unavailable [phone] Source Comments In the event this information is protected by the Federal Confidentiality of Alcohol and Drug AbusePatient Records regulations: The Federal rules restrict any use of the information to criminally investigate or prosecute any alcohol or drug abuse patient.[facility] Encounter Details DateTypeDepartmentCare Team (Latest Contact Info)Vkbtunphsly82/04/2025Travel Social History Tobacco UseTypesPacks/DayYears UsedDateSmoking Tobacco: FormerCigarettesPassive Smoke Exposure: NeverSmokeless Tobacco: NeverAlcohol UseStandard Drinks/Week CommentsNever0 (1 standard drink = 0.6 oz pure alcohol)Area Deprivation Index AnswerDate RecordedNational Score (1-100), lower number is lower risk75 02/21/2025State Score (1-10), lower number is lower tntf038Data from: https://www.neighborhoodatlas.medicine.[facility].edu/. Last address used for [address] 02/21/2025CommentsNoSex and Gender Information ValueDate RecordedSex Assigned at BirthNot on fileLegal ObvPtdaas40/02/2012 9:17 AM ESTGender IdentityNot on fileSexual OrientationNot on filedocumented as of this encounter Plan of Treatment DateTypeDepartmentCare Team (Latest Contact Info)Rczzdymwcjg66/14/2025 7:30 AM ESTHospital Encounter Admitting [address] [place] [address] [facility] [address] [place] [address] Preoperative examination [Z01.818], Hiatal hernia [K44.9]04/05/2025 7:30 AM EST - 04/05/2025 10:15 AM ESTSurgery Admitting [address] [place] [address] [facility] [address] [facility] [place] [address] LAPAROSCOPIC RPR PARAESOPHAGEAL HERNIA W/O FUNDOPLASTY W/ MESHNamePriority Associated DiagnosesDate/TimeLAPAROSCOPIC RPR PARAESOPHAGEAL HERNIA W/O FUNDOPLASTY W/ MESH Preoperative examination Hiatal hernia 04/05/2025 7:30 AM ESTdocumented as of this encounter Goals GoalPatient Goal TypeAssociated ProblemsRecent ProgressPatient-Stated?Author Autogenerated Goal Care PlanAutogenerated ProblemNoHurt, Alexisdocumented as of this encounter Visit Diagnoses Not on filedocumented in this encounter Additional Health Concerns Active ProblemsNoted DateDiagnosed DateAutogenerated Lekayze4002/23/2025documented as of this encounter Care Teams Team MemberRelationshipSpecialtyStart DateEnd Date Jose Burrell Jr. PCP - General09/07/00 Sabrina Wilkinson MD [address] [place] [address] Gastroenterology02/14/25documented as of this encounter
--- OUTSIDE RECORDS SUMMARY | 2025-03-28 07:59 | XMS_ITS | Clinical Summary ---
Author Organization [facility] Address [address] [place] [address] Care Team Providers Care Supervisor Irrigation Name Role Phone Jose Burrell Jr. Primary Care Provider Sabrina Felix MD Unavailable [phone] Allergies Active AllergyReactionsCriticalityNoted DateCommentsSumatriptanOther: See Saewndhe83/28/2020 Tachycardia fainting Tachycardia fainting Medications MedicationSigDispense QuantityRefillsLast FilledStart DateEnd DateStatus furosemide (LASIX) 20 mg tablet Take 20 mg by mouth two times a day.Active ALBUTEROL INHALATION Inhale as instructed.Active qxsqxfjwqr-ohjlyiyk-ghofqtljey (BREZTRI AEROSPHERE) 160-9-4.8 mcg/actuation HFA aerosol inhaler Inhale 2 puffs as instructed two times a day.Active dapagliflozin propanediol (FARXIGA) 10 mg tablet Take by mouth daily with breakfast.Active amoxicillin-clavulanate potassium (AUGMENTIN) 875-125 mg per tablet Take 1 tablet by mouth two times a day.Active phenazopyridine (PYRIDIUM) 200 mg tablet Take 200 mg by mouth three times a day as needed.Active ARIPiprazole (ABILIFY) 30 mg tablet Take 30 mg by mouth once daily.Active busPIRone (BUSPAR) 10 mg tablet Take 10 mg by mouth three times a day.Active diclofenac-miSOPROStol (ARTHROTEC) 50-200 mg-mcg per tablet Take 1 tablet by mouth two times a day.Active FLUoxetine (PROZAC) 20 mg capsule Take 20 mg by mouth once daily.Active levothyroxine 50 mcg cap Take 50 mcg by mouth daily before breakfast.Active lisinopril (ZESTRIL) 40 mg tablet Take 40 mg by mouth once daily.Active OMEPRAZOLE, BULK, MISC Active POTASSIUM CHLORIDE 2.5 MEQ TAB Active ropinirole HCl (ROPINIROLE PO) Take by mouth.Active amitriptyline (ELAVIL) 50 mg tablet Take 50 mg by mouth daily at bedtime.11/19/2023ctive Encounters DateTypeDepartmentCare AjmySddqjyiagts63/05/2025Telephone Pre Anesthesia [address] [place] [address] Vivian Brown RN Patient Question (Chest Xray question)03/26/2025 10:00 AM ESTOffice Visit General Surgery [address] [address] Yeny Miranda, PhD Paraesophageal hernia (Primary Dx)03/26/2025 9:00 AM ESTPAT Pre Anesthesia [address] [place] [address] 13, [address] Paraesophageal hernia (Primary Dx); Chronic diastolic (congestive) heart failure (HCC); Hypertensive heart and chronic kidney disease with heart failure and stage 1 through stage 4 chronic kidney disease, or unspecified chronic kidney disease (HCC); Chronic obstructive pulmonary disease, unspecified COPD type (HCC); Anxiety and depression; Chronic cough; Acquired hypothyroidism; Gastroesophageal reflux disease with esophagitis, unspecified whether hemorrhage; PONV (postoperative nausea and vomiting); Preoperative vyusxzyuaax65/04/2025 8:10 AM ESTProcedure Cardiology [address] [address] 03/26/20250629Rjsfpo99/09/2025 1:08 PM EDT - 02/28/2025 11:59 PM EDTHospital Encounter Radiology [address] [place] [address] Discharge Disposition: Home02/28/20255809Gsopfv78/03/2025Patient Update [facility] [address] [place] [address] Joo Bobo 11.14.25 Cure (Lap Paraesophageal Hernia Repair /EGD 5 hours los 3)02/21/2025 11:20 AM EDTOffice Visit General Surgery [address] [address] Joo Bobo Paraesophageal hernia (Primary Dx); Hiatal waylkg1002/14/2025Transcribe Orders Referring [place] [address] Sabrina Wilkinson MD Hiatal hernia (Primary Dx)from Last 3 Months Family History Medical HistoryRelationCommentsAnesthesia ProblemsNo Family History Social History Tobacco UseTypesPacks/DayYears UsedDateSmoking Tobacco: FormerCigarettesPassive Smoke Exposure: NeverSmokeless Tobacco: Never Tobacco Cessation:Counseling Given: Not Answered Alcohol UseStandard Drinks/WeekCommentsNever0 (1 standard drink = 0.6 oz pure alcohol)Area Deprivation IndexAnswerDate RecordedNational Score (1-100), lower number is lower fgtb016002/21/2025State Score (1-10), lower number is lower risk6 02/21/2025Data from: https://www.neighborhoodatlas.medicine.[facility].edu/. Last address used for p[address]02/21/2025CommentsNoSex and Gender InformationValueDate RecordedSex Assigned at BirthNot on fileLegal Sex Dztrcl0504/23/2012 9:17 AM ESTGender IdentityNot on fileSexual OrientationNot on file Last Filed Vital Signs Vital SignReadingTime TakenCommentsBlood Kztktcaw210/4803/26/2025 8:32 AM EST Mynjl146603/26/2025 8:32 AM RFIDvbswkqtlqs28 ??C (96.8 ??F)03/26/2025 8:32 AM EST Respiratory Rate--Oxygen Kryopkpvrs80%03/26/2025 8:32 AM ESTInhaled Oxygen Concentration--Tbjqya47.1 kg (174 lb 6.1 oz)03/26/2025 8:32 AM TDUOotkhy040.9 cm (5' 1 )03/26/2025 8:32 AM ESTBody Mass Index32.9503/26/2025 8:32 AM EST Plan of Treatment DateTypeDepartmentCare Team (Latest Contact Info)Cmqgezgnfwg23/14/2025 7:30 AM ESTHospital Encounter [place] [address] Joo Bobo [address] [place] [address] Preoperative examination [Z01.818], Hiatal hernia [K44.9]04/05/2025 7:30 AM EST - 04/05/2025 10:15 AM ESTSurgery Admitting [address] [place] [address] Javy Boboiano [address] [place] [address] LAPAROSCOPIC RPR PARAESOPHAGEAL HERNIA W/O FUNDOPLASTY W/ MESHNamePriority Associated DiagnosesDate/TimeLAPAROSCOPIC RPR PARAESOPHAGEAL HERNIA W/O FUNDOPLASTY W/ MESH Preoperative examination Hiatal hernia 04/05/2025 7:30 AM ESTHealth MaintenanceDue DateLast DoneCommentsAnxiety Nkvvncahv73/09/1972Depression Qutvucwpm32/09/1972Hepatitis C Fjlecbwco24/09/1972 Mammogram Avrujupos76/09/1994CT Qvzxsxybwplx25/09/1999Cologuard (FIT-DNA) 07/29/19984139Ciclpcpvnzb81/09/1999Colorectal Cancer Uliuvcwfg91/09/1999Fecal Occult Blood1998Lipid Ijfsrjsuf91/09/9417Vbehlgytwfowe08/09/1999RSV Vaccine (1 - Risk 60-74 years 1-dose series)2013one Density Hevipfqlo11/09/2019 Advance Directive Jbcauqdfhr80/01/2025Medicare Advantage Annual Wellness Visit 5Covid-19 Vaccine ( season)/01/2023, 07/09/2022, 02/12/2022, Additional history existsInfluenza Vaccine (#1)01/21/2025 06/05/2024, 04/30/2023, 02/12/2022, Additional history existsDiabetes Screening DTaP,Tdap,Td Vaccine (3 - Td or Tdap), 04/01/2018Pneumococcal Vaccine: 50+Xxngiswya29/14/2025, 09/18/2021, 02/02/2020, Additional history existsShingrix ShdzuisZbmdqiuqz29/11/2025, 07/02/2024, 02/27/2016 Goals GoalPatient Goal TypeAssociated ProblemsRecent ProgressPatient-Stated?Author Autogenerated Goal Care PlanAutogenerated ProblemNoHurt, Richard Procedures Procedure NamePriorityDate/TimeAssociated DiagnosisCommentsACTIVATED PTTRoutine 03/26/2025 8:14 AM EST Preoperative examination Hiatal hernia PROTHROMBIN JZKMDbdawqk16/04/2025 8:14 AM EST Preoperative examination Hiatal hernia COMPREHENSIVE METABOLIC RFDOHBurzwub83/04/2025 8:14 AM EST Preoperative examination Hiatal hernia CBC + ZQWPBhysyfq93/04/2025 8:14 AM EST Preoperative examination Hiatal hernia ECG QVYWZSWBWtbkgwb19/04/2025 7:50 AM EST Preoperative examination Hiatal hernia XR OQKGKXCMIOLezclhw17/09/2025 1:41 PM EDT XR OUTSIDE CD DICOM ETYSZI8101/21/2025 CT OUTSIDE CD DICOM PGGLRL1401/21/2025 from Last 3 Months Results * PROTHROMBIN TIME (03/26/2025 8:14 AM EST)ComponentValueRef RangeTest Method Analysis TimePerformed AtPathologist SignaturePT Sec10.99.7 - 13.0 sec 03/26/2025 8:58 AM [facility] MAIN LABINR1.00.9 - 1. 8:58 AM [facility] MAIN LABComment: Vitamin K Antagonist (VKA) Therapeutic Range: INR 2 to 3 (Target INR of 2.5) Note: For patients treated with VKA drugs, such as warfarin, the [place] [employer] 2012 Guideline recommends [...] GH, et al. Chest 2012, 141:7S-47S Shaquille RA, et al. [facility] 2017, 70: 252-289 Specimen (Source)Anatomical Location / LateralityCollection Method / Volume Collection TimeReceived TimeBloodBLOOD SPECIMEN / UnknownVenipuncture / Unknown 03/26/2025 8:14 AM EST03/26/2025 8:14 AM EST Narrative Authorizing ProviderResult TypeResult StatusLuciano TastaldiLABORATORYFinal ResultPerforming OrganizationAddressCity/State/ZIP CodePhone Number [facility] [address] * (ABNORMAL) COMPREHENSIVE METABOLIC PANEL (03/26/2025 8:14 AM EST)Component ValueRef RangeTest MethodAnalysis TimePerformed AtPathologist Signature Protein, Total7.66.3 - 8.0 g/dL03/26/2025 1:59 PM [facility] Albumin4.33.9 - 4.9 g/dL03/26/2025 1:59 PM [facility] Calcium, Total10.28.5 - 10.2 mg/dL03/26/2025 1:59 PM [facility] MAIN LABBilirubin, Total0.40.2 - 1.3 mg/dL03/26/2025 1:59 PM [facility] MAIN LABAlkaline Iyatehdzcsr1090 - 123 U/L105/26/2024 1:59 PM [facility] MAIN GYBEPN1217 - 35 U/L105/26/2024 1:59 PM [facility] MA[facility] LAB CBF092 - 38 U/L105/26/2024 1:59 PM [facility] ZDYUqlumdj651(H)74 - 99 mg/dL03/26/2025 1:59 PM [facility] MAIN LABComment: The [place] [employer] (ADA) provides guidance for cutoff values for fasting glucose andrandom glucose. The ADA defines fasting as no [...] Standards of Medical Care in Diabetes 2016, [place] [employer]. Diabetes Care. 2016.39(Suppl 1). BUN22(H)7 - 21 mg/dL03/26/2025 1:59 PM [facility] LABCreatinine 1.03(H)0.58 - 0.96 mg/dL03/26/2025 1:59 PM [facility] MAHHsblbl522 136 - 144 mmol/L105/26/2024 1:59 PM [facility] LABPotassium4.83.7 - 5.1 mmol/L105/26/2024 1:59 PM [facility] HCYLuizgbsd48663 - 107 mmol/L105/26/2024 1:59 PM [facility] CHOVC57561 - 30 mmol/L 03/26/2025 1:59 PM [facility] LABAnion Lxr451 - 15 mmol/L 03/26/2025 1:59 PM [facility] LABEstimated Glomerular Filtration Rate58(L)>=60 mL/min/1.73m 03/26/2025 1:59 PM [facility] LABComment:Estimated Glomerular Filtration Rate (eGFR) is calculated using the 2020 CKD-EPI creatinine equation. This equation utilizes serum creatinine, sex, and age as parameters. The creatinine assay has traceable calibration to isotope dilution-mass spectrometry. Refer to KDIGO guidelines for clinical interpretation. In patients with unstable renal function, e.g. those with acute kidney injury, the eGFRmay not accurately reflect actual GFR.Specimen (Source)Anatomical Location / LateralityCollection Method / VolumeCollection TimeReceived TimeBloodBLOOD SPECIMEN / UnknownVenipuncture / Emmrkdx1403/26/2025 8:14 AM EST03/26/2025 8:14 AM EST Narrative Authorizing ProviderResult TypeResult StatusLuciano TastaldiLABORATORYFinal ResultPerforming OrganizationAddressCity/State/ZIP CodePhone Number [facility] [address] * (ABNORMAL) COMPLETE BLOOD COUNT AND DIFFERENTIAL (03/26/2025 8:14 AM EST) ComponentValueRef RangeTest MethodAnalysis TimePerformed AtPathologist CztpkfliqRRQ63.19(H)3.70 - 11.00 k/uL03/26/2025 9:07 AM [facility] LABRBC4.783.90 - 5.20 m/uL03/26/2025 9:07 AM [facility] LAB Afltktpndi82.911.5 - 15.5 g/dL03/26/2025 9:07 AM [facility] LAB Aneocbotmd55.636.0 - 46.0 %03/26/2025 9:07 AM [facility] LABMCV 89.180.0 - 100.0 fL03/26/2025 9:07 AM [facility] YEKLQC30.126.0 - 34.0 pg03/26/2025 9:07 AM [facility] TXSJHME63.630.5 - 36.0 g/dL03/26/2025 9:07 AM [facility] LABRDW-CV17.2(H)11.5 - 15.0 % 03/26/2025 9:07 AM [facility] LABPlatelet Nrrls719973 - 400 k/uL 03/26/2025 9:07 AM [facility] VCVZDP86.29.0 - 12.7 fL03/26/2025 9:07 AM [facility] LABNeutrophils %79.1%03/26/2025 9:07 AM [facility] LABAbs Neut11.22(H)1.45 - 7.50 k/uL03/26/2025 9:07 AM [facility] LABLymphocytes %13.3%03/26/2025 9:07 AM [facility] LABAbs Lymph1.891.00 - 4.00 k/uL03/26/2025 9:07 AM [facility] LABMonocytes %5.4%03/26/2025 9:07 AM [facility] MAIN LAB Abs Mono0.77<0.87 k/uL03/26/2025 9:07 AM [facility] LAB Eosinophils %1.2%03/26/2025 9:07 AM [facility] MAIN LABAbs Eosin0.17 <0.46 k/uL03/26/2025 9:07 AM [facility] LABBasophils %0.5% 03/26/2025 9:07 AM [facility] LABAbs Baso0.07<0.11 k/uL 03/26/2025 9:07 AM [facility] LABImmature Granulocytes %0.5% 03/26/2025 9:07 AM [facility] LABAbs Immature Gran0.07<0.10 k/uL 03/26/2025 9:07 AM [facility] LABNRBC0.0/100 WBC03/26/2025 9:07 AM [facility] LABAbsolute nRBC<0.01<0.01 k/uL03/26/2025 9:07 AM [facility] LABDiff AgpeKcgt60/04/2025 9:07 AM [facility] LABSpecimen (Source)Anatomical Location / LateralityCollection Method / VolumeCollection TimeReceived TimeBloodBLOOD SPECIMEN / Unknown Venipuncture / Hobhpes3203/26/2025 8:14 AM EST03/26/2025 8:14 AM EST Narrative Authorizing ProviderResult TypeResult StatusLuciano TastaldiLABORATORYFinal ResultPerforming OrganizationAddressCity/State/ZIP CodePhone Number [facility] [address] * ACTIVATED PARTIAL THROMBOPLASTIN TIME (03/26/2025 8:14 AM EST)ComponentValue Ref RangeTest MethodAnalysis TimePerformed AtPathologist OjsdtwgqfXDQW56.223.0 - 32.4 sec03/26/2025 8:58 AM [facility] LABSpecimen (Source) Anatomical Location / LateralityCollection Method / VolumeCollection Time Received TimeBloodBLOOD SPECIMEN / UnknownVenipuncture / Glrzgku4903/26/2025 8:14 AM EST03/26/2025 8:14 AM EST Narrative [facility] - 03/26/2025 8:58 AM EST Unfractionated Heparin Therapeutic Ranges: Standard Heparin Nomogram: 53 to 78 seconds (anti-Xa level of 0.3 to 0.7 U/ml) Low Dose/ACS Nomogram: 49 to 67 seconds (anti-Xa level of 0.2 to 0.5 U/ml) Stroke Treatment Nomogram: 49 to 67 seconds (anti-Xa level of 0.2 to 0.5 U/ml) Note: The APTT therapeutic range has been determined for the current lot of laboratory APTT reagentin use throughout the [facility]. Authorizing ProviderResult TypeResult StatusLuciano TastaldiLABORATORYFinal ResultPerforming OrganizationAddressCity/State/[facility] CodePhone Number [facility] [address] * XR ESOPHAGRAM (02/28/2025 1:41 PM EDT)Anatomical RegionLateralityModalityChest Radiographic ImagingSpecimen (Source)Anatomical Location / Laterality Collection Method / VolumeCollection TimeReceived Time02/28/2025 1:41 PM EDT Impressions 02/28/2025 3:07 PM EDT IMPRESSION: LARGE HIATAL HERNIA WITH INTRATHORACIC STOMACH. SMALL VOLUME ASPIRATION. Tower Crane Operator: REE ?? Transcribe Date/Time: Feb ??2024 ??2:14P Dictated by : CARLYLE FRANCIS This examination was interpreted and the report reviewed and electronically signed by: GERMAN SARAVIA MD on Feb ??2024 ??3:05PM ??EST Narrative 02/28/2025 3:07 PM EDT * * *Final Report* * * DATE OF EXAM: Feb ??2024 ??1:41PM ?? HGX ?? [id number] ??- ??XR ESOPHAGRAM ?? / PROCEDURE REASON: Paraesophageal hernia ? * * * * Physician Interpretation * * * * ESOPHAGRAM CLINICAL INFORMATION: Paraesophageal hernia. TECHNIQUE: A biphasic examination of the esophagus was performed utilizing effervescent granules (E-Z-Gas II - 4 grams), high density barium, and low density barium. Contrast: ORAL: ??150 ml of EZHD ORAL: ??300 ml of EZPAQUE ORAL: 1 ml of [...] phase The study was performed by CARLYLE Francis equine internship, under the supervision of Dr. Saravia, who was present for the critical portion of the exam. ?? Images associated with this study were submitted for interpretation and reviewed by Dr. Saraiva. Procedure Note Provider, [facility] [place] - 02/28/2025 * * *Final Report* * * DATE OF [...] phase The study was performed by CARLYLE Francis equine internship, under the supervision of Dr. Saravia, who was present for the critical portion of the exam. Images associated with this study were submitted for interpretation and reviewed by Dr. Saravia. IMPRESSION IMPRESSION: LARGE HIATAL HERNIA WITH INTRATHORACIC STOMACH. SMALL VOLUME ASPIRATION. Tower Crane Operator: REE Transcribe Date/Time: Feb 28 2025 2:14P Dictated by : CARLYLE FRANCIS This examination was interpreted and the report reviewed and electronically signed by: GERMAN SARAVIA MD on Feb 28 2025 3:05PM EST Authorizing ProviderResult TypeResult StatusLuciano TastaldiRAD-PAMAFinal Result * OT-XR CHEST 1V IMPORT (01/21/2025)Anatomical RegionLateralityModalityOther Specimen (Source)Anatomical Location / LateralityCollection Method / Volume Collection TimeReceived Time01/21/2025 Narrative 02/19/2025 11:45 AM EDT Images were obtained outside of [facility] Procedure Note Provider, [facility] [place] - 02/19/2025 Images were obtained outside of [facility] Authorizing ProviderResult TypeResult StatusCcf ProviderRADIOLOGYFinal Result * CT-CT ANGIO CHEST IMPORT (01/21/2025)Anatomical RegionLateralityModalityOther Specimen (Source)Anatomical Location / LateralityCollection Method / Volume Collection TimeReceived Time01/21/2025 Narrative 02/19/2025 11:41 AM EDT Images were obtained outside of [facility] Procedure Note Provider, [facility] [place] - 02/19/2025 Images were obtained outside of [facility] Authorizing ProviderResult TypeResult StatusCcf ProviderRADIOLOGYFinal Result from Last 3 Months Additional Health Concerns Active ProblemsNoted DateDiagnosed DateAutogenerated Hkgkfeo1102/23/[address] [place] [address] Care Teams Team MemberRelationshipSpecialtyStart DateEnd Date Jose Burrell Jr. PCP - [facility]09/07/00 Sabrina Wilkinson MD [address] [place] [address] Gastroenterology02/14/25
--- OUTSIDE RECORDS SUMMARY | 2025-03-28 07:59 | XMS_ITS | Clinical Summary ---
Author Organization [facility] Address [address] [place] [address] Care Team Providers Care Glove Boarder Name Role Phone Travis Townsend MD Primary Care Provider [phone] Allergies Active AllergyReactionsCriticalityNoted FtnjWlrtqrqxEijklqtlwxkVxgsg37/28/2020 Tachycardia fainting Medications MedicationSigDispense QuantityRefillsLast FilledStart DateEnd DateStatus amLODIPine (Norvasc) 10 mg tablet Take 1 tablet every day by oral route with meals for 90 days.10/11/2016Active ARIPiprazole (Abilify) 20 mg tablet Take 30 mg by mouth in the morning.Active FLUoxetine (PROzac) 20 mg tablet Take 1 tablet 4 times a day by oral route.Active magnesium oxide (Mag-Ox) 400 mg (241.3 mg magnesium) tablet Take 2 tablets twice a day by oral route with meals for 90 days.10/11/2016Active calcium carbonate-vitamin D3 500 mg-5 mcg (200 unit) tablet Take 1 tablet by mouth.Active ibuprofen 800 mg tablet Take 1 tablet by mouth every 6 (six) hours if needed.04/01/2018Active levothyroxine (Synthroid, Levoxyl) 100 mcg tablet Take 50 mcg by mouth in the morning.Active metoprolol succinate XL (Toprol-XL) 100 mg 24 hr tablet Take 100 mg by mouth in the morning.Active omeprazole (PriLOSEC) [address] capsule Take 10 mg by mouth before breakfast and before evening meal.Active wtvffpnqiz-vrnydtlocxxof-xzxy 50-325-40 mg tablet Take 1 tablet by mouth every 4 (four) hours.09/17/2023ctive diclofenac (Cataflam) 50 mg tablet Take 50 mg by mouth in the morning and at bedtime.10/10/2023ctive oxyCODONE-acetaminophen (Percocet) 5-325 mg tablet Take 1 tablet by mouth if needed each day.09/23/2023ctive rOPINIRole (Requip) 1 mg tablet 1 (one) time each day at the same time.Active amitriptyline (Elavil) 50 mg tablet Take 50 mg by mouth at bedtime.11/19/2023ctive methocarbamol (Robaxin) 750 mg tablet Take 750 mg by mouth four times daily.11/19/2024tive busPIRone (Buspar) 10 mg tablet Take 1 tablet by mouth Twice daily at 6am and 6pm.01/08/2025tive furosemide (Lasix) 20 mg tablet Indications:Acute on chronic heart failure with preserved ejection fraction (CMS/HCC)Take 1 tablet (20 mg) by mouth in the morning. 90 tablet 308//6Active dapagliflozin propanediol (Farxiga) 10 mg Indications:Acute on chronic heart failure with preserved ejection fraction (CMS/HCC)Take 1 tablet (10 mg) by mouth once daily as directed. 30 tablet 1108//6Active potassium chloride CR (K-Tab) 20 mEq ER tablet Indications:HypokalemiaTake 2 tablets now and 2 tablets this evening. Then take 2 tablets daily starting the following day. Call office for further refills. 180 tablet 01/31/2025tive lisinopril 40 mg tablet Indications:Benign hypertensive heart disease without congestive heart failure Take 1 tablet (40 mg) by mouth once daily as directed. 90 tablet 5Active dokbdylbno-lzehowyd-uvnzhfdkgs (Breztri Aerosphere) 160-9-4.8 mcg/actuation HFA aerosol inhaler Inhale 2 puffs twice a day.5Active albuterol 2.5 mg /3 mL (0.083 %) nebulizer solution Take 2.5 mg by nebulization every 6 (six) hours if needed.Active spironolactone (Aldactone) 25 mg tablet Indications:Benign hypertensive heart disease with heart failure (CMS/HCC)Take 0.5 tablets (12.5 mg) by mouth in the morning. 15 tablet 11151ctive lisinopril 40 mg tablet Indications:Benign hypertensive heart disease without congestive heart failure Take 1 tablet (40 mg) by mouth once daily as directed. 90 tablet Discontinued(Reorder) Active Problems ProblemNoted DateDiagnosed DateAbnormal finding of diagnostic tzxgktd6103/04/2025 Atherosclerosis of aorta03/04/2025hest pain03/04/2025OVID-191Dyspnea 03/04/2025Excessive caffeine uubscq8503/04/2025Heart xfzhlww0303/04/2025Insomnia 03/04/2025Iron deficiency izhpra9203/04/20253096Ktrmfyzxtscm96/13/2025Memory deficit 03/04/2025Mixed anxiety and depressive qlegaxzd39/13/2518Rxuelfpvclfc19/13/2025 Rib xvikjdjd57/13/2025Weight loss03/01/2025hronic obstructive pulmonary disease 01/16/2025MI 35.0-35.9,adult01/16/2025lass 3 dlytvco9801/16/2025losed displaced fracture of styloid process of ulna with routine tvgtcba3901/16/2025losed fracture of distal end of left xqopkr0801/16/2025Degeneration of intervertebral disc of lumbosacral region with discogenic back pain01/16/2025Diverticulosis 01/16/2025Gastroesophageal reflux ftpvlgk4801/16/2025Hiatal puprrf5401/16/2025 Hearing loss01/16/20251338Ttchphvxwjep97/27/2025Restless leg /27/2025 Screening for malignant neoplasm of colon01/16/2025Sleep apnea01/16/2025Wedge compression fracture of T11-T12 vertebra, initial encounter for closed fracture 01/16/2025SVT (supraventricular tachycardia)01/16/2025ontinuous opioid ervvmfgral16/08/2023Lumbar nvcdgsfkrgofd47/08/5228Dzudwyd45/01/2023 Yftzlcunywntoygugevi09/01/4186Eyewtjxkbeitnb14/01/2023ulmonary hypertension 04/09/2022ipolar xscbvomv53/22/2017Hypertensive hvijcbvt83/22/2017Migraine 10/11/2016 Encounters DateTypeDepartmentCare OqunFbwhnttgsvi46/13/2025 11:20 AM EDTOffice Visit [facility] [address] [place] [facility] [place] [address] Cristhian Gamino CNP Preop cardiovascular exam (Primary Dx); Shortness of breath; Chronic heart failure with preserved ejection fraction (HFpEF) (CMS/HCC); Nonrheumatic aortic valve insufficiency; Benign hypertensive heart disease with heart failure (CMS/HCC); CONNIE (obstructive sleep apnea)02/27/2025Refill [facility] [address] [place] [facility] [place] [address] Mary Sullivan MA Benign hypertensive heart disease without congestive heart oquvije1101/31/2025 Telephone [facility] [address] [place] [facility] [place] [address] Oumou Mcarthur MA 01/16/2025 2:45 PM EDTOffice Visit [facility] [address] [place] [facility] [place] [address] Miriam Saenz MD Acute on chronic heart failure with preserved ejection fraction (CMS/HCC) (Primary Dx); Palpitations; Dyspnea on exertion; Nonrheumatic aortic valve insufficiencyfrom Last 3 Months Immunizations ImmunizationAdministration DatesNext DueInfluenza, High-dose Seasonal, Quadrivalent, Preservative Free02/12/2022,03/05/2021Influenza, injectable, MDCK, tmbbwklwwocw96/09/2018Influenza, injectable, ovfgnagtcynd51/12/2020Influenza, seasonal, bwgyodorco64/01/2021Influenza, seasonal, injectable, preservative free, 6 moonths & older02/27/2016Influenza, trivalent, kshrvwgpyb50/30/2019 Pfizer SARS-CoV-2 Prfacbqhsii31/29/2022,03/05/2021,08/04/2020,07/14/2020 Pneumococcal Conjugate PCV 13002/02/2020,02/28/2018Pneumococcal Conjugate PCV 20 2Pneumococcal Polysaccharide FSB00366848Fcjv08/06/2022,04/01/2018 Unspecified Sars-Cov-2 Mgkqielvikw87/23/2022Zoster, live02/27/2016 Family History Medical HistoryRelationNameCommentsCancerMotherCancerSisterRelationNameStatus CommentsFatherDeceasedMotherDeceasedSister Social History Tobacco UseTypesPacks/DayYears UsedDateSmoking Tobacco: FormerCigarettesQuit: 05/23/2019Smokeless Tobacco: Never Tobacco Cessation:Counseling Given: Not Answered Alcohol UseStandard Drinks/WeekCommentsNever0 (1 standard drink = 0.6 oz pure alcohol)Humiliation, Afraid, Rape, and Kick questionnaireAnswerDate Recorded Within the last year, have you been afraid of your partner or ex-partner?No 03/16/2022Within the last year, have you been humiliated or emotionally abused in other ways by your partner or ex-partner?No03/16/2022Within the last year, have you been kicked, hit, slapped, or otherwise physically hurt by your partner or ex-partner?No03/16/2022Within the last year, have you been raped or forced to have any kind of sexual activity by your partner or ex-partner?No03/16/2022 Social Connection and Isolation PanelAnswerDate RecordedIn a typical week, how many times do you talk on the phone with family, friends, or neighbors?More than three times a week03/16/2022How often do you get together with friends or relatives?Twice a week03/16/2022How often do you attend gnosticism or zoroastrian services?More than 4 times per year2Do you belong to any clubs or organizations such as gnosticism groups, unions, fraternal or athletic groups, or school groups?Yes03/16/2022How often do you attend meetings of the clubs or organizations you belong to?1 to 4 times per year03/16/2022re you , , , , never , or living with a partner? 03/16/2022UDIT-CAnswerDate RecordedFrequency of Alcohol ConsumptionNot on file 03/16/2022Q2: How many drinks containing alcohol do you have on a typical day when you are drinking?Patient does not drink03/16/2022Q3: How often do you have six or more drinks on one occasion?Never03/16/2022verall Financial Resource Strain (CARDIA)AnswerDate RecordedHow hard is it for you to pay for the very basics like food, housing, medical care, and heating?Somewhat hard03/16/2022 PHQ-2AnswerDate RecordedPatient Health Questionnaire-2 Xwxib759Finun[facility] [place] [facility] - Occupational Stress QuestionnaireAnswerDate RecordedDo you feel stress - tense, restless, nervous, or anxious, or unable to sleep at night because yourmind is troubled all the time - these days?Not at all 03/16/2022Exercise Vital SignAnswerDate RecordedOn average, how many days per week do you engage in moderate to strenuous exercise (like a brisk walk)?0 days 03/16/2022n average, how many minutes do you engage in exercise at this level?0 min03/16/2022Hunger Vital SignAnswerDate RecordedWithin the past 12 months, you worried that your food would run out before you got the money to buymore.Never true03/16/2022Within the past 12 months, the food you bought just didn't last and you didn't have money to get more.Never true03/16/2022RAPARE - TransportationAnswerDate RecordedIn the past 12 months, has lack of transportation kept you from medical appointments or from getting medications?No 03/16/2022In the past 12 months, has lack of transportation kept you from meetings, work, or from getting things needed for daily living?No03/16/2022 Housing Stability Vital SignAnswerDate RecordedIn the last 12 months, was there a time when you were not able to pay the mortgage or rent on time?No03/16/2022 Number of Places Lived in the Last YearNot on file10/25/2022In the last 12 months, was there a time when you did not have a steady place to sleep or slept in ashelter (including now)?No03/16/2022UT Safety & EnvironmentAnswerDate RecordedFear of Current or Ex-PartnerNot on file07/14/2023Emotionally AbusedNot on file07/14/2023hysically AbusedNot on file07/14/2023Sexually AbusedNot on file07/14/2023hysically or Sexually AbusedNot on file07/14/2023Comments UnknownSex and Gender InformationValueDate RecordedSex Assigned at BirthFemale 01/15/2025 10:25 AM EDTLegal EifZyynvd38/29/2022 10:16 PM EDTGender Identity Axjzpr2001/15/2025 10:25 AM EDTSexual OrientationHeterosexual or Straight 01/15/2025 10:25 AM EDT Last Filed Vital Signs Vital SignReadingTime TakenCommentsBlood Gqeimpvr023/7503/04/2025 11:19 AM EDT Rssmj579403/04/2025 11:19 AM SKHSdrsorzwhzr65.4 ??C (97.5 ??F)03/16/2022 1:15 PM EDTRespiratory Wpfq4245 1:15 PM EDTOxygen Wbsuhlerwt68%03/04/2025 11:19 AM EDTInhaled Oxygen Concentration--Owkxlc07.7 kg (178 lb)03/04/2025 11:19 AM FMWNymnth730.5 cm (5' 2 )03/04/2025 11:19 AM EDTBody Mass Index32.561 11:19 AM EDT Plan of Treatment Health MaintenanceDue DateLast DoneCommentsCT Wwpyxxigfwyk81/09/1954FIT-DNA 1953FIT1953FOBT1953Medicare Annual Wellness (AWV)1955 Wqapehvvckpwz24/09/1954epression Alxwzhplf09/09/5195Rldzaqmfo23/09/1994Fall Risk Acvcudszp33/09/2019COVID-19 Vaccine ( season)2025 04/30/2023, 07/09/2022, 02/12/2022, Additional history existsInfluenza Vaccine (#1)501/, 04/30/2023, 02/12/2022, Additional history existsAdult Tcetggv23/10/2021, 04/01/20181221Nmjmuouthrz22/04/636313/08/2023, 03/14/2013Colorectal Cancer Yoamkrltg29/04/2034Pneumococcal Vaccine: 50+ Years Bvaprmksk18/14/2025, 09/18/2021, 02/02/2020, Additional history existsZoster BsnccnsdIvakktkwc26/11/2025, 07/02/2024, 02/27/2016HIB VaccinesAged OutNo longer eligible based on patient's age to complete this topicHPV VaccinesAged OutNo longer eligible based on patient's age to complete this topicIPV VaccinesAged OutNo longer eligible based on patient's age to complete this topicMeningococcal B VaccineAged OutNo longer eligible based on patient's age to complete this topicMeningococcal VaccineAged OutNo longer eligible based on patient's age to complete this topicRotavirus VaccinesAged OutNo longer eligible based on patient's age to complete this topic Insurance Care Teams Team MemberRelationshipSpecialtyStart DateEnd Date Travis Townsend MD [address] [facility] [address] [address] [facility]03/16/22
--- OUTSIDE RECORDS SUMMARY | 2025-03-28 07:59 | XMS_ITS | Patient Health Record ---
Author Organization [facility] in [place] Address [address] [place] [address] Care Team Providers Care Dean Of Women Name Role Phone Natividad Silva Primary Care Provider [phone] José Townsend [phone] Allergies Allergen (clinical drug ingredient) Drug/Non Drug Allergy documented on EMR Reaction Allergy Type Onset Date Status sumatriptan Imitrex dizziness/fainted Drug Allergy Active Results Component Value Reference Range Notes UA DIP NONAUTO WO MICRO (810 02) - IN OFFICE Reviewed date:03/18/2025 02:57:07 PM Interpretation: Performing Lab: Notes/Report: COLOR Yellow CLARITYClearGLUCOSE+++BILIRUBINNegKETONE+SPECIFIC GRAVITY1.089MOUYDNfqSA1IRQEYAE +UROBILINOGENNegNITRITENegLEUKOCYTE ESTERASENegCT lung screening low-dose Reviewed date:10/25/2024 11:04:31 AM Interpretation: Performing Lab: Notes/Report: Source Facility: [place] [address] CT Scan Report Signed Patient: MARY VICK MR#: [id number] : 1955 Acct:[id number] Age/Sex: 69 / F ADM Date: 10/23/24 Loc: CT Attending Dr: NATIVIDAD SILVA Ordering Physician: NATIVIDAD SILVA Date of Service: 10/23/24 Procedure(s): CT lung screening low-dose Accession Number(s): [id number] cc: NATIVIDAD SILVA [address] [address] Patient Name: MARY VICK MRN: [id number] date: 1955 Sex: F Assigned Patient Location: CT Current Patient Location: Accession/Order Number: [id number] Exam Date: 10/23/2024 15:17 Report Date: 10/24/2024 [...] Mendez M.D. 10/24/2024 12:10 AM Dictation Location: [place] [address] Electronically authenticated by: [id number] Y Date: 10/24/2024 00:10 Dictated By: Ghanshyam Mendez D.O. Signed By: 10/24/24 0013 DD/ 001 TD/TT: Supervisor Doping:CBC AUTO DIFF Reviewed date:06/07/2024 12:42:46 PM Interpretation: Performing Lab: Notes/Report: [facility] ,White Blood Count7.54.0-11.0 10 3/uLRed Blood Count3.634.20-5.40 10 6/uL Uibtttulep37.512.0-16.0 g/sJXpnqqomsvb21.036.0-48.0 %Mean Corpuscular Fbuwre52.9 81.0-99.0 fLMean Corpuscular Vyijxzlfoi29.926.7-34.0 pgMean Corpuscular HGB Conc 31.829.9-35.2 g/dLRed Cell Distribution Width16.311.0-15.0 %Platelet Whmvo792 150-450 10 3/uLMean Platelet Lecozp35.39.5-13.5 fLNeutrophils Percent Auto67.7 43.0-75.0 %Lymphocytes Percent Auto18.020.5-60.0 %Monocytes Percent Auto9.71.7- 12.0 %Eosinophils Percent Auto3.10.9-7.0 %Basophils Percent Auto0.80.2-2.0 % Immature Granulocytes Pct Auto0.70.0-0.5 %Neutrophils Absolute Auto5.11.4-6.5 10 3/uLLymphocytes Absolute Auto1.41.2-3.8 10 3/uLMonocytes Absolute Auto0.70.3-0.8 10 3/uLEosinophils Absolute Auto0.20.0-0.7 10 3/uLBasophils Absolute Auto0.10.0- 0.1 10 3/uLImmature Granulocytes Abs Auto0.050.00-0.03 10 3/uLPerforming Lab:see noteML - [facility] LBPROF 14(COMP METB) Reviewed date:06/07/2024 12:42:46 PM Interpretation: Performing Lab: Notes/Report: [facility] ,Yjgvbr530786-922 mmol/LPotassium3.63.5-5.1 mmol/ZZmpajvcu03121-392 mmol/LCarbon Mouxvty96.721.0-32.0 mmol/LAnion Gap10.9Fztdtld04654-059 mg/dLBlood Urea Xrmdqwjm10.07.0-18.0 mg/dLCreatinine0.940.55-1.02 mg/dLEstimated GFR ( [place]>60>=60 mL/min/1.73m 2Estimated GFR (Non- Ame59>=60 mL/min/1.73m 2 BUN Creatinine Ratio17.4Prwctlo1.28.5-10.1 mg/dLBilirubin Total0.30.2-1.0 mg/dL Aspartate Amino Mcbwljggiat3903-81 U/LAlanine Iqjrdqgmqjusqsvt0770-65 U/L Alkaline Hubhgfgclou5412-202 U/LTotal Protein5.96.4-8.2 g/dLAlbumin Level2.73.4- 5.0 g/dLGlobulin3.2Albumin Globulin Ratio0.8Performing Lab:see noteML - [facility] LBUA RANDOM W or MICROSCOPIC Reviewed date:06/07/2024 12:42:46 PM Interpretation: Performing Lab: Notes/Report: [facility] ,Color UrineYELLOWYELLOWClarity UrineCLEARCLEARSpecific [place] Urine>=1.030 1.005-1.025pH Urine5.55.0-9.0Protein UrineNEGATIVENEG/TRACE mg/dLGlucose Urine UANEGATIVENEGATIVE mg/dLBilirubin UrineNEGATIVENEGATIVEKetones UrineNEGATIVE NEGATIVE mg/dLBlood UrineNEGATIVENEGATIVENitrite UrineNEGATIVENEGATIVE Urobilinogen Urine0.20.2-1.0 EU/dLLeukocyte Esterase UrineNEGATIVENEGATIVEWBC Urine0-2NONE SEEN #/HPFRBC Urine0-20-2 #/HPFBacteria UrineTRACENONE SEEN #/HPF Mucus UrineNONE SEENNONE SEENSquamous Epithelial Cell UrineMODERATENONE/RARE #/LPFCrystals Seen?SeenNone Seen #/HPFCalcium Oxalate Crystals UrineRARECast Seen?NONE SEENNONE SEEN #/LPFPerforming Lab:see noteML - [facility] LBCBC AUTO DIFF Reviewed date:06/12/2024 04:07:12 PM Interpretation: Performing Lab: Notes/Report: [facility] ,White Blood Count9.14.0-11.0 10 3/uLRed Blood Count4.174.20-5.40 10 6/uL Bcmtbgyxut69.912.0-16.0 g/uMHldcqzgvzg70.336.0-48.0 %Mean Corpuscular Qxwpkm67.4 81.0-99.0 fLMean Corpuscular Ijjjksjptf15.526.7-34.0 pgMean Corpuscular HGB Conc 31.929.9-35.2 g/dLRed Cell Distribution Width15.811.0-15.0 %Platelet Mmaux760 150-450 10 3/uLMean Platelet Eaxygb38.39.5-13.5 fLNeutrophils Percent Auto70.5 43.0-75.0 %Lymphocytes Percent Auto18.820.5-60.0 %Monocytes Percent Auto7.01.7- 12.0 %Eosinophils Percent Auto2.80.9-7.0 %Basophils Percent Auto0.70.2-2.0 % Immature Granulocytes Pct Auto0.20.0-0.5 %Neutrophils Absolute Auto6.41.4-6.5 10 3/uLLymphocytes Absolute Auto1.71.2-3.8 10 3/uLMonocytes Absolute Auto0.60.3-0.8 10 3/uLEosinophils Absolute Auto0.30.0-0.7 10 3/uLBasophils Absolute Auto0.10.0- 0.1 10 3/uLImmature Granulocytes Abs Auto0.020.00-0.03 10 3/uLPerforming Lab:see noteML - [facility] LBD-DIMER Reviewed date:06/18/2024 12:30:48 PM Interpretation: Performing Lab: Notes/Report: [facility] ,D Dimer3.27<=0.59 mg/L FEU RESULTS CALLED TO VELVET GEIGER [...] anticoagulant therapy, stress, and generalized hospitalization. Performing Lab:see noteML - [facility] LBPROF 14(COMP METB) Reviewed date:06/18/2024 12:30:48 PM Interpretation: Performing Lab: Notes/Report: [facility] ,Kgvnbc280276-616 mmol/LPotassium4.43.5-5.1 mmol/OCvwsbygx24793-131 mmol/LCarbon Iwxfllp32.021.0-32.0 mmol/LAnion Gap9.0Ecbiddg3435-227 mg/dLBlood Urea Nitrogen 23.07.0-18.0 mg/dLCreatinine0.940.55-1.02 mg/dLEstimated GFR ( [place]>60 >=60 mL/min/1.73m 2Estimated GFR (Non- Ame59>=60 mL/min/1.73m 2BUN Creatinine Ratio24.6Txvbfnb1.48.5-10.1 mg/dLBilirubin Total0.30.2-1.0 mg/dL Aspartate Amino Fkwcchpqynw9175-95 U/LAlanine Qumkqggyzxxdiwlm8075-24 U/L Alkaline Agyibqhyxss97547-145 U/LTotal Protein6.86.4-8.2 g/dLAlbumin Level3.0 3.4-5.0 g/dLGlobulin3.8Albumin Globulin Ratio0.8Performing Lab:see noteML - [facility] LBTroponin I High Sensitivity Reviewed date:06/18/2024 12:30:48 PM Interpretation: Performing Lab: Notes/Report: [facility] ,Troponin I High Sensitivity5.34.0-51.3 pg/mL CUT-OFF POINTS HAVE BEEN ESTABLISHED BASED ON THE FOURTH UNIVERSAL DEFINITION OF MYOCARDIAL INFARCTION. THE UPPER REFERENCE LIMIT (URL) OF TROPONIN, DEFINED THE 99TH PERCENTILE OF cTnI DISTRIBUTION IN A REFERENCE POPULATION, HAS BEEN CONFIRMED THE DECISION THRESHOLD FOR DE DIAGNOSIS. 99TH PERCENTILE = 51.4 PG/ML NOTE: HIGH-SENSITIVITY TROPONIN ASSAY IS NOT INTENDED TO BE USED IN ISOLATION BUT SHOULD BE INTERPRETED IN CONJUNCTION WITH OTHER DIAGNOSTIC AND CLINICAL INFORMATION. Performing Lab:see noteML - [facility] LBXR chest 1V Reviewed date:06/18/2024 12:30:48 PM Interpretation: Performing Lab: Notes/Report: Source Facility: [facility]-[address] [place] [address] [place] [address] XRay Report Signed Patient: MARY VICK MR#: [id number] : 1955 Acct:[id number] Age/Sex: 68 / F ADM Date: 06/17/24 Loc: ER Attending Dr: Ordering Physician: Catherine Bales Date of Service: 06/17/24 Procedure(s): XR chest 1V Accession Number(s): [id number] cc: NATIVIDAD SILVA ; Catherine Bales [place] [address] Patient Name: MARY VICK MRN: [id number] date: 1955 Sex: F Assigned Patient Location: ER Current Patient Location: ER Accession/Order Number: [id number] Exam Date: 06/17/2024 11:15 Report Date: 06/17/2024 [...] Signed By: 06/17/24 1321 DD/ 1319 TD/TT: Supervisor Doping:CT angio chest Reviewed date:10/25/2024 12:12:40 PM Interpretation: Performing Lab: Notes/Report: Source Facility: [place] [address] CT Scan Report Signed Patient: MARY VICK MR#: [id number] : 1955 Acct:[id number] Age/Sex: 69 / F ADM Date: 10/25/24 Loc: ER Attending Dr: Ordering Physician: Donny Escalante M.D. Date of Service: 10/25/24 Procedure(s): CT angio chest Accession Number(s): [id number] cc: NATIVIDAD SILVA [place] [address] Patient Name: MARY VICK MRN: [id number] date: 1955 Sex: F Assigned Patient Location: ER Current Patient Location: ER Accession/Order Number: [id number] Exam Date: 10/25/2024 11:50 Report Date: 10/25/2024 [...] Avina M.D. 10/25/2024 12:04 PM Dictation Location: [place] [address] Electronically authenticated by: [id number] Y Date: 10/25/2024 12:04 Dictated By: Alysia Avina M.D. Signed By: 10/25/24 1207 DD/ 1204 TD/TT: Supervisor Doping:DEXA Axial Skeleton (hips, pelvis, spine)* Reviewed date:12/20/2024 11:25:30 AM Interpretation:undefined Performing Lab: Notes/Report: undefinedCA echo doppler complete Reviewed date:12/19/2024 08:56:32 AM Interpretation: Performing Lab: Notes/Report: Source Facility: [place] [address] [place] [address] Cardiology Report Signed Patient: MARY VICK MR#: [id number] : 1955 Acct:[id number] Age/Sex: 69 / F ADM Date: 12/18/24 Loc: CARD Attending Dr: Miriam Pelaez M.D. Ordering Physician: Miriam Pelaez M.D. Date of Service: 12/18/24 Procedure(s): CA echo doppler complete Accession Number(s): [id number] cc: NATIVIDAD SILVA ; Miriam Pelaez M.D. Patient Name: MARY VICK MR#: [id number] : 1955 Exam Date: 12/18/2024 Ordering Doctor: [...] Area (VTI): 2.55 cm2, 2.55 cm2 Deceleration [place]: 1.62 m/s2 Pressure Half-Time: 714.03 ms Peak [...] Pressure: 40.51 ml, 40.51 ml Dictated by: Efife Cook M.D. on 12/18/2024 at 19:27 Approved by: Effie Cook M.D. on 12/18/2024 at 19:33 Dictated By: EFFIE COOK Signed By: 12/18/241933 DD/ 32 TD/TT: Supervisor Doping:POTASSIUM Reviewed date:01/22/2025 11:02:06 AM Interpretation: Performing Lab: Notes/Report: [facility] ,Potassium3.33.5-5.1 mmol/LPerforming Lab:see noteML - [facility] LB ECG 12 lead Reviewed date:01/24/2025 01:36:19 PM Interpretation: Performing Lab: Notes/Report: Source Facility: [place] [address] Electrocardiograph Report Signed Patient: MARY VICK MR#: [id number] : 1955 Acct:[id number] Age/Sex: 69 / F ADM Date: 01/21/25 Loc: ER Attending Dr: Ordering Physician: Jessy Peralta Date of Service: 01/21/25 Procedure(s): ECG 12 lead Accession Number(s): [id number] cc: [facility] Test Date: 2025-01-21 Pat Name: MARY VICK Department: Room: - 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 Signed By: 01/23/25 1346 DD/ 1423 TD/TT: Supervisor Doping:ABRAN webber 1V Reviewed date:01/22/2025 11:02:06 AM Interpretation: Performing Lab: Notes/Report: Source Facility: [place] [address] XRay Report Signed with Geovanny Patient: MARY VICK MR#: [id number] : 1955 Acct:[id number] Age/Sex: 69 / F ADM Date: 01/21/25 Loc: ER Attending Dr: Ordering Physician: Jessy Peralta Date of Service: 01/21/25 Procedure(s): XR chest 1V Accession Number(s): [id number] cc: NATIVIDAD SILVA ; Jessy Peralta ADDENDUM [place] [address] This is an addendum Findings should read: Cardiomegaly with vascular congestion. Impression dictated by: Travis Borrero Jr., D.O. 01/21/2025 4:44 PM Dictation Location: [address] Electronically authenticated by: [id number] Y Date: 01/21/2025 16:44 atient Name: MARY VICK MRN: [id number] date: 1955 Sex: F Assigned Patient Location: ER Current Patient Location: ER Accession/Order Number: [id number] Exam Date: 01/21/2025 14:30 Report Date: 01/21/2025 16:44 At the request of: JESSY PERALTA Procedure: XR chest 1V [place] [address] Patient Name: MARY VICK MRN: [id number] date: 1955 Sex: F Assigned Patient Location: ER Current Patient Location: ER Accession/Order Number: [id number] Exam Date: 01/21/2025 14:30 Report Date: 01/21/2025 14:48 At the request of: JESSY PERALTA Procedure: XR chest 1V Single view chest: CLINICAL HISTORY: SOB COMPARISON: None FINDINGS: Thyromegaly vascular congestion. Large hiatal hernia. No consolidation pneumothorax pleural effusion or free air. Addendum Dictated By: Travis Borrero M.D. Addendum Signed By: 01/21/25 1 646 Addendum Cosigned By: DD/ /16/1643 TD/TT: / ADDENDUM XR/XR chest 1V IMPRESSION: CHF Impression dictated by: Travis Borrero Jr., D.O. 01/21/2025 2:48 PM Dictation Location: [facility] Electronically authenticated by: [id number] Y Date: 01/21/2025 14:48 Addendum Dictated By: Travis Borrero M.D. Addendum Signed By: 01/21/25 1 646 Addendum Cosigned By: DD/ /16/1643 TD/TT: / [place] [address] Patient Name: MARY VICK MRN: [id number] date: 1955 Sex: F Assigned Patient Location: ER Current Patient Location: ER Accession/Order Number: [id number] Exam Date: 01/21/2025 14:30 Report Date: 01/21/2025 14:48 At the request of: JESSY PERALTA Procedure: XR chest 1V Single view chest: CLINICAL HISTORY: SOB COMPARISON: None FINDINGS: Thyromegaly vascular congestion. Large hiatal hernia. No consolidation pneumothorax pleural effusion or free air. XR/XR chest 1V IMPRESSION: CHF Impression dictated by: Travis Borrero Jr., D.O. 01/21/2025 2:48 PM Dictation Location: [facility] Electronically authenticated by: [id number] Y Date: 01/21/2025 14:48 Dictated By: Travis Borrero M.D. Signed By: 01/21/25 1451 DD/ 1448 TD/TT: Supervisor Doping:CT angio chest Reviewed date:01/22/2025 11:02:06 AM Interpretation: Performing Lab: Notes/Report: Source Facility: [place] [address] [place] [address] CT Scan Report Signed Patient: MARY VICK MR#: [id number] : 1955 Acct:[id number] Age/Sex: 69 / F ADM Date: 01/21/25 Loc: ER Attending Dr: Ordering Physician: Jessy Peralta Date of Service: 01/21/25 Procedure(s): CT angio chest Accession Number(s): [id number] cc: NATIVIDAD SILVA [place] [address] Patient Name: MARY VICK MRN: [id number] date: 1955 Sex: F Assigned Patient Location: ER Current Patient Location: ER Accession/Order Number: [id number] Exam Date: 01/21/2025 16:22 Report Date: 01/21/2025 16:43 At the request of: JESSY PERALTA Procedure: CT angio chest CT ANGIOGRAM OF THE CHEST, PULMONARY EMBOLISM PROTOCOL: CLINICAL INFORMATION: Shortness of breath with difficulty breathing for 2 months. COMPARISON: CT chest 10/25/2024 TECHNIQUE: Following intravenous injection of contrast CT scans of the chest were obtained using pulmonary embolism protocol. Coronal and sagittal reconstructed images, as well as volume rendered CT pulmonary angiographic images were also submitted.The CT exam was performed using one or more of the following dose reduction techniques: Automated exposure control, adjustment of the MA and/or Kv according to patient size, or use of the iterative reconstruction technique. FINDINGS: Pulmonary Vasculature: Contrast bolus is adequate for evaluation of pulmonary embolism. Pulmonary trunk appears nondilated. No filling defects are identified to suggest pulmonary embolism. Mediastinum : Thoracic aorta is normal in caliber. No pericardial effusion. No lymphadenopathy. The esophagus is grossly unremarkable. Large hiatal hernia. Lungs: Diffuse interstitial change/septal thickening without evidence of honeycombing. No consolidation pneumothorax. No significant pleural effusion. Upper abdomen: No acute process. Splenic granulomas. Soft tissue/bones: Soft tissues surrounding the chest wall demonstrate no acute findings. Osseous structures demonstrate degenerative change. Worsening compression deformity involving the T10 vertebral body. There is approximately 4 mm retropulsion into the spinal canal. CT/CT angio chest IMPRESSION: NO EVIDENCE OF ACUTE PULMONARY EMBOLISM. LARGE HIATAL HERNIA. DIFFUSE INTERSTITIAL CHANGES/SEPTAL THICKENING SIMILAR TO THE 10/25/2024 STUDY. WORSENING COMPRESSION DEFORMITY T10 VERTEBRAL BODY WITH 4 MM RETROPULSION INTO THE SPINAL CANAL. Impression dictated by: Travis Borrero Jr., D.O. 01/21/2025 4:43 PM Dictation Location: [employer] Electronically authenticated by: [id number] Y Date: 01/21/2025 16:43 Dictated By: Travis Borrero M.D. Signed By: 01/21/251645 DD/ 42 TD/TT: Supervisor Doping:PROF Cain(COMP METB) Reviewed date:02/04/2025 10:47:03 AM Interpretation: Performing Lab: Notes/Report: [facility] ,Oyndrx845882-954 mmol/LPotassium3.03.5-5.1 mmol/IIxivaptb96675-194 mmol/LCarbon Susoxzn30.721.0-32.0 mmol/LAnion Gap17.5Znqykkc59761-121 mg/dLBlood Urea Nitrogen9.07.0-18.0 mg/dLCreatinine1.010.55-1.02 mg/dLEstimated GFR ( [place]>60>=60 mL/min/1.73m 2Estimated GFR (Non- Ame54>=60 mL/min/1.73m 2 BUN Creatinine Ratio8.1Fxawyad7.48.5-10.1 mg/dLBilirubin Total0.50.2-1.0 mg/dL Aspartate Amino Lgjpypxvirj6513-17 U/LAlanine Assdnmrkshcnptby8065-15 U/L Alkaline Kooixtvdxxw8160-438 U/LTotal Protein7.86.4-8.2 g/dLAlbumin Level3.73.4- 5.0 g/dLGlobulin4.1Albumin Globulin Ratio0.9Performing Lab:see noteML - [facility] LBMM tomosynthesis screening BI Reviewed date:03/15/2025 02:29:58 PM Interpretation: Performing Lab: Notes/Report: Source Facility: [facility]-[address] [place] [address] [place] [address] Mammography Report Signed Patient: MARY VICK MR#: [id number] : 1955 Acct:[id number] Age/Sex: 69 / F ADM Date: 03/15/25 Loc: MAMMO Attending Dr: NATIVIDAD SILVA Ordering Physician: NATIVIDAD SILVA Results: Date of Service: 03/15/25 Follow Up: Procedure(s): MM tomosynthesis screening BI Accession Number(s): [id number] cc: NATIVIDAD SILVA Patient Name: MARY VICK MR#: [id number] : 1955 Exam Date: 03/15/2025 Ordering Doctor: NATIVIDAD SILVA [employer] RADIOLOGY REPORT PROCEDURE: MM TOMOSYNTHESIS SCREENING BI COMPARISON: MM TOMOSYNTHESIS SCREENING BI, 02/21/2024. MG MAMM SCREEN ULANA W CAD, 03/04/2020. MG MAMM LUANA SCRN W CAD DIG, 02/12/2013. INDICATIONS: screening Calculator Name NCI Breast Cancer Risk Assessment Tool 5 Year Breast Cancer Risk 3.60% Lifetime Breast Cancer Risk 9.60% Personal Breast Cancer No Personal Ovarian Cancer No Treatments None Family Cancers Mother with breast cancer at age 47; Mother with lung cancer at age 59; Sister with lung,brain cancer at age 43. LOCATION: [facility] BREAST COMPOSITION: There are scattered areas of fibroglandular density. FINDINGS: RIGHT BREAST: No significant suspicious finding. Benign-appearing calcifications are present. Similar focal asymmetries are noted. LEFT BREAST: No significant suspicious finding. Benign-appearing calcifications are present. Similar focal asymmetries are noted. DIAGNOSTIC CATEGORY 2--BENIGN FINDING. NO CHANGE FROM COMPARISON. RECOMMENDATIONS: ROUTINE MAMMOGRAM AND CLINICAL EVALUATION IN 12 MONTHS. Dictated by: Matteo Gandara MD on 03/15/2025 at 13:02 Approved by: Matteo Gandara MD on 03/15/2025 at 13:42 Dictated By: Matteo Gandara M.D. Signed By: 03/15/25 1344 DD/ 1343 TD/TT: Supervisor Doping:PROF RYAN Nuno ([facility]) Reviewed date:03/15/2025 02:29:58 PM Interpretation: Performing Lab: Notes/Report: [facility] ,Fvamim120702-802 mmol/LPotassium4.03.5-5.1 mmol/BQdzogvwp36350-458 mmol/LCarbon Fdwbuwm65.521.0-32.0 mmol/LAnion Gap18.4Izkbtsy48232-165 mg/dLBlood Urea Qsbzzznf97.07.0-18.0 mg/dLCreatinine1.020.55-1.02 mg/dLEstimated GFR ( [place]>60>=60 mL/min/1.73m 2Estimated GFR (Non- Ame53>=60 mL/min/1.73m 2 BUN Creatinine Ratio16.1Qdqhgxa3.98.5-10.1 mg/dLPerforming Lab:see noteML - [facility] (BAS METB) Reviewed date:02/04/2025 10:45:56 AM Interpretation: Performing Lab: Notes/Report: [facility] ,Pzklze705421-689 mmol/LPotassium4.13.5-5.1 mmol/VJkifctzg32865-959 mmol/LCarbon Dngrnoi32.621.0-32.0 mmol/LAnion Gap11.1Trocqwr2268-521 mg/dLBlood Urea Gjiuvagw96.07.0-18.0 mg/dLCreatinine0.930.55-1.02 mg/dLEstimated GFR ( [place]>60>=60 mL/min/1.73m 2Estimated GFR (Non- Ame59>=60 mL/min/1.73m 2 BUN Creatinine Ratio16.4Xfaqemr6.98.5-10.1 mg/dLPerforming Lab:see noteML - [facility] 8 (BAS METB) Reviewed date:02/05/2025 01:08:54 PM Interpretation: Performing Lab: Notes/Report: [facility] ,Mhbmwv441432-220 mmol/LPotassium4.13.5-5.1 mmol/OBvikhtha27354-455 mmol/LCarbon Fohtxqt50.321.0-32.0 mmol/LAnion Gap14.3Pypymza66014-792 mg/dLBlood Urea Pjzhoesa46.07.0-18.0 mg/dLCreatinine0.940.55-1.02 mg/dLEstimated GFR ( [place]>60>=60 mL/min/1.73m 2Estimated GFR (Non- Ame59>=60 mL/min/1.73m 2 BUN Creatinine Ratio11.1Ydmvmhx5.28.5-10.1 mg/dLPerforming Lab:see noteML - [facility] LLHCBO-VzW-0 Ag* Reviewed date:01/22/2025 11:02:06 AM Interpretation: Performing Lab: Notes/Report: [facility] ,SARS-CoV-2 AgNEGATIVENEGATIVE This test has not been FDA cleared [...] is terminated or authorization is revoked sooner. Performing Lab:see noteML - [facility] LBTroponin I High Sensitivity Reviewed date:01/22/2025 11:02:06 AM Interpretation: Performing Lab: Notes/Report: [facility] ,Troponin I High Sensitivity9.94.0-51.3 pg/mL CUT-OFF POINTS HAVE BEEN ESTABLISHED BASED ON THE FOURTH UNIVERSAL DEFINITION OF MYOCARDIAL INFARCTION. THE UPPER REFERENCE LIMIT (URL) OF TROPONIN, DEFINED THE 99TH PERCENTILE OF cTnI DISTRIBUTION IN A REFERENCE POPULATION, HAS BEEN CONFIRMED THE DECISION THRESHOLD FOR DE DIAGNOSIS. 99TH PERCENTILE = 51.4 PG/ML NOTE: HIGH-SENSITIVITY TROPONIN ASSAY IS NOT INTENDED TO BE USED IN ISOLATION BUT SHOULD BE INTERPRETED IN CONJUNCTION WITH OTHER DIAGNOSTIC AND CLINICAL INFORMATION. Performing Lab:see noteML - [facility] LBPROF 14(COMP METB) Reviewed date:01/22/2025 11:02:06 AM Interpretation: Performing Lab: Notes/Report: [facility] ,Nloxlo381381-790 mmol/LPotassium2.53.5-5.1 mmol/LRESULTS CALLED TO YARELI SCHMITT, ZDToikjbuf04154-552 mmol/LCarbon Lqemqsc18.621.0-32.0 mmol/LAnion Gap12.9 Xbtrgja41307-875 mg/dLBlood Urea Nitrogen8.07.0-18.0 mg/dLCreatinine0.940.55- 1.02 mg/dLEstimated GFR ( [place]>60>=60 mL/min/1.73m 2Estimated GFR (Non- Ame59>=60 mL/min/1.73m 2BUN Creatinine Ratio8.1Ifdxrnq6.18.5-10.1 mg/dLBilirubin Total0.50.2-1.0 mg/dLAspartate Amino Tcltndfdwmd1550-91 U/L Alanine Dcdlnpcxnooamuce3286-39 U/LAlkaline Lqdnqqdonxt8871-078 U/LTotal Protein 7.56.4-8.2 g/dLAlbumin Level3.53.4-5.0 g/dLGlobulin4.0Albumin Globulin Ratio0.9 Performing Lab:see noteML - [facility] LBCBC AUTO DIFF Reviewed date:01/22/2025 11:02:06 AM Interpretation: Performing Lab: Notes/Report: [facility] ,White Blood Count9.84.0-11.0 10 3/uLRed Blood Count4.894.20-5.40 10 6/uL Vfamyiczxb26.312.0-16.0 g/iUTfuhrenhih00.536.0-48.0 %Mean Corpuscular Ykxohp92.0 81.0-99.0 fLMean Corpuscular Oodvupypds94.226.7-34.0 pgMean Corpuscular HGB Conc 32.129.9-35.2 g/dLRed Cell Distribution Width15.511.0-15.0 %Platelet Iccic051 150-450 10 3/uLMean Platelet Mqngrp08.09.5-13.5 fLNeutrophils Percent Auto74.3 43.0-75.0 %Lymphocytes Percent Auto16.920.5-60.0 %Monocytes Percent Auto6.51.7- 12.0 %Eosinophils Percent Auto1.10.9-7.0 %Basophils Percent Auto0.70.2-2.0 % Immature Granulocytes Pct Auto0.50.0-0.5 %Neutrophils Absolute Auto7.31.4-6.5 10 3/uLLymphocytes Absolute Auto1.71.2-3.8 10 3/uLMonocytes Absolute Auto0.60.3- 0.8 10 3/uLEosinophils Absolute Auto0.10.0-0.7 10 3/uLBasophils Absolute Auto0.1 0.0-0.1 10 3/uLImmature Granulocytes Abs Auto0.050.00-0.03 10 3/uLPerforming Lab:see noteML - [facility] LBBNP Reviewed date:01/22/2025 11:02:06 AM Interpretation: Performing Lab: Notes/Report: [facility] ,NT Pro B Type Natriuretic Tvdl748.0<=900.0 pg/mLPerforming Lab:see noteML - [facility] LBMR lumbar spine wo con Reviewed date:11/26/2024 03:28:23 PM Interpretation: Performing Lab: Notes/Report: Source Facility: [facility]-[address] [place] [address] [place] [address] Magnetic Resonance Report Signed Patient: MARY VICK MR#: [id number] : 1955 Acct:[id number] Age/Sex: 69 / F ADM Date: 11/26/24 Loc: MRI Attending Dr: Rhett Norton M.D. Ordering Physician: Richard Askew Date of Service: 11/26/24 Procedure(s): MR lumbar spine wo con Accession Number(s): [id number] cc: NATIVIDAD SILVA ; Richard Askew [place] [address] Patient Name: MARY VICK MRN: [id number] date: 1955 Sex: F Assigned Patient Location: MRI Current Patient Location: MRI Accession/Order Number: [id number] Exam Date: 11/26/2024 10:42 Report Date: 11/26/2024 10:50 At the request of: RICHARD HATWHORNE Procedure: MR lumbar spine wo con MR [...] Gandara M.D. 11/26/2024 10:50 AM Dictation Location: [employer] Electronically authenticated by: [id number] Y Date: 11/26/2024 10:50 Dictated By: Matteo Gandara M.D. Signed By: 11/26/24 1053 DD/ 1050 TD/TT: Supervisor Doping:MR thoracic spine wo con Reviewed date:11/26/2024 03:28:23 PM Interpretation: Performing Lab: Notes/Report: Source Facility: [place] [address] Magnetic Resonance Report Signed Patient: MARY VICK MR#: [id number] : 1955 Acct:[id number] Age/Sex: 69 / F ADM Date: 11/26/24 Loc: MRI Attending Dr: Rhett Norton M.D. Ordering Physician: Richard Askew Date of Service: 11/26/24 Procedure(s): MR thoracic spine wo con Accession Number(s): [id number] cc: NATIVIDAD SILVA ; Richard Askew [place] [address] Patient Name: MARY VICK MRN: [id number] date: 1955 Sex: F Assigned Patient Location: MRI Current Patient Location: MRI Accession/Order Number: [id number] Exam Date: 11/26/2024 10:32 Report Date: 11/26/2024 [...] Gandara M.D. 11/26/2024 10:42 AM Dictation Location: [employer] Electronically authenticated by: [id number] Y Date: 11/26/2024 10:42 Dictated By: Matteo Gandara M.D. Signed By: 11/26/24 1045 DD/ 1042 TD/TT: Supervisor Doping:XR wrist LT min 3V Reviewed date:09/10/2024 10:40:29 AM Interpretation: Performing Lab: Notes/Report: Source Facility: [place] [address] XRay Report Signed Patient: MRAY VICK MR#: [id number] : 1955 Acct:[id number] Age/Sex: 69 / F ADM Date: 09/10/24 Loc: EC Attending Dr: Willi Royal M.D. Ordering Physician: Willi Royal M.D. Date of Service: 09/10/24 Procedure(s): XR wrist LT min 3V Accession Number(s): [id number] cc: NATIVIDAD SILVA ; Willi Royal M.D. [place] [address] Patient Name: MARY VICK MRN: [id number] date: 1955 Sex: F Assigned Patient Location: Current Patient Location: Accession/Order Number: [id number] Exam Date: 09/10/2024 10:26 Report Date: 09/10/2024 10:27 At the request of: WILLI ROYAL MD Procedure: XR wrist LT min [...] Ghanshyam Mendez M.D.09/10/2024 10:27 AM Dictation Location: [place] [address] Electronically authenticated by: [id number] Y Date: 09/10/2024 10:27 Dictated By: Ghanshyam Mendez D.O. Signed By: 09/10/24 1029 DD/ 1027 TD/TT: Supervisor Doping:XR wrist LT min 3V Reviewed date:08/13/2024 04:11:06 PM Interpretation: Performing Lab: Notes/Report: Source Facility: [place] [address] XRay Report Signed Patient: MARY VICK MR#: [id number] : 1955 Acct:[id number] Age/Sex: 69 / F ADM Date: 08/13/24 Loc: EC Attending Dr: Willi Royal M.D. Ordering Physician: Willi Royal M.D. Date of Service: 08/13/24 Procedure(s): XR wrist LT min 3V Accession Number(s): [id number] cc: NATIVIDAD SILVA ; Willi Royal M.D. [place] [address] Patient Name: MARY VICK MRN: [id number] date: 1955 Sex: F Assigned Patient Location: Current Patient Location: Accession/Order Number: [id number] Exam Date: 08/13/2024 14:03 Report Date: 08/13/2024 14:04 At the request of: WILLI ROYAL MD Procedure: XR wrist LT min [...] Borrero Jr., D.O.08/13/2024 2:04 PM Dictation Location: [place] [address] Electronically authenticated by: [id number] Y Date: 08/13/2024 14:04 Dictated By: Travis Borrero M.D. Signed By: 08/13/24 1407 DD/ 140 TD/TT: Supervisor Doping:XR wrist LT min 3V Reviewed date:07/16/2024 01:45:20 PM Interpretation: Performing Lab: Notes/Report: Source Facility: [place] [address] XRay Report Signed Patient: MARY VICK MR#: [id number] : 1955 Acct:[id number] Age/Sex: 68 / F ADM Date: 07/16/24 Loc: EC Attending Dr: Willi Royal M.D. Ordering Physician: Willi Royal M.D. Date of Service: 07/16/24 Procedure(s): XR wrist LT min 3V Accession Number(s): [id number] cc: NATIVIDAD SILVA ; Willi Royal M.D. [place] [address] Patient Name: MARY VICK MRN: [id number] date: 1955 Sex: F Assigned Patient Location: Current Patient Location: Accession/Order Number: [id number] Exam Date: 07/16/2024 13:24 Report Date: 07/16/2024 13:26 At the request of: WILLI ROYAL MD Procedure: XR wrist LT min [...] Alysia Avina M.D.07/16/2024 1:26 PM Dictation Location: [place] [address] Electronically authenticated by: [id number] Y Date: 07/16/2024 13:26 Dictated By: Alysia Avina M.D. Signed By: 07/16/24 1329 DD/ 1326 TD/TT: Supervisor Doping:XR wrist LT min 3V Reviewed date:07/04/2024 12:50:42 PM Interpretation: Performing Lab: Notes/Report: Source Facility: [place] [address] XRay Report Signed Patient: MARY VICK MR#: [id number] : 1955 Acct:[id number] Age/Sex: 68 / F ADM Date: 06/25/24 Loc: EC Attending Dr: Willi Royal M.D. Ordering Physician: Willi Royal M.D. Date of Service: 06/25/24 Procedure(s): XR wrist LT min 3V Accession Number(s): [id number] cc: NATIVIDAD SILVA ; Willi Royal M.D. [place] [address] Patient Name: MARY VICK MRN: [id number] date: 1955 Sex: F Assigned Patient Location: Current Patient Location: Accession/Order Number: [id number] Exam Date: 06/25/2024 08:35 Report Date: 06/27/2024 15:44 At the request of: WILLI ROYAL Procedure: XR wrist LT min 3V [...] of distal ulnar fracture. Electronically authenticated by: WILLI WHEAT Date: 06/27/2024 15:44 Dictated By: Willi Wheat M.D. 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 Signed By: 06/18/24 0925 DD/ 1059 TD/TT: Supervisor Doping:CBC AUTO DIFF Reviewed date:06/18/2024 12:30:48 PM Interpretation: Performing Lab: Notes/Report: [facility] ,White Blood Count9.04.0-11.0 10 3/uLRed Blood Count4.034.20-5.40 10 6/uL Zizxhvywot82.412.0-16.0 g/wVBcmeivuath11.336.0-48.0 %Mean Corpuscular Rskqdi96.1 81.0-99.0 fLMean Corpuscular Ahtnsmwgqb35.326.7-34.0 pgMean Corpuscular HGB Conc 31.429.9-35.2 g/dLRed Cell Distribution Width15.811.0-15.0 %Platelet Peoai045 150-450 10 3/uLMean Platelet Volume9.89.5-13.5 fLNeutrophils Percent Auto65.8 43.0-75.0 %Lymphocytes Percent Auto20.020.5-60.0 %Monocytes Percent Auto7.31.7- 12.0 %Eosinophils Percent Auto4.10.9-7.0 %Basophils Percent Auto1.10.2-2.0 % Immature Granulocytes Pct Auto1.70.0-0.5 %Neutrophils Absolute Auto5.91.4-6.5 10 3/uLLymphocytes Absolute Auto1.81.2-3.8 10 3/uLMonocytes Absolute Auto0.70.3- 0.8 10 3/uLEosinophils Absolute Auto0.40.0-0.7 10 3/uLBasophils Absolute Auto0.1 0.0-0.1 10 3/uLImmature Granulocytes Abs Auto0.150.00-0.03 10 3/uLPerforming Lab:see noteML - [facility] LBFL fluoroscopy <1hr NON-READ Reviewed date:06/13/2024 12:18:22 PM Interpretation: Performing Lab: Notes/Report: Source Facility: [facility]-[address] [place] [address] [place] [address] Fluoroscopy Report Signed Patient: MARY VICK MR#: [id number] : 1955 Acct:[id number] Age/Sex: 68 / F ADM Date: 06/11/24 Loc: SURGOUT Attending Dr: Willi Royal M.D. Ordering Physician: Willi Royal M.D. Date of Service: 06/11/24 Procedure(s): FL fluoroscopy <1hr NON-READ Accession Number(s): [id number] cc: NATIVIDAD SILVA ; Willi Royal M.D. [place] [address] Patient Name: MARY VICK MRN: [id number] date: 1955 Sex: F [facility]igned [facility] [place] Current Patient Location: Accession/Order Number: [id number] Exam Date: 06/11/2024 15:25 Report Date: 06/13/2024 07:28 At the request of: WILLI ROYAL Procedure: FL fluoroscopy <1hr NON-READ EXAM: FL fluoroscopy <1hr NON-READ HISTORY: TECHNIQUE: FINDINGS: Please see Operative Report. Electronically authenticated by: RADIOLOGIST ELIZABETH Date: 06/13/2024 07:28 Dictated By: Elizabeth,Radiologist Signed By: 06/13/24729 DD/ 7 TD/TT: Supervisor Doping:ECG 12 lead Reviewed date:06/12/2024 04:07:12 PM Interpretation: Performing Lab: Notes/Report: Source Facility: [place] [address] Electrocardiograph Report Signed Patient: MARY VICK MR#: [id number] : 1955 Acct:[id number] Age/Sex: 68 / F ADM Date: 06/11/24 Loc: SURGOUT Attending Dr: Willi Royal M.D. Ordering Physician: Bull Maria M.D. 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 Signed By: 06/11/24 0484 DD/ 1340 TD/TT: Supervisor Doping:XR chest 2V Reviewed date:06/07/2024 12:42:46 PM Interpretation: Performing Lab: Notes/Report: Source Facility: [place] [address] XRay Report Signed Patient: MARY VICK MR#: [id number] : 1955 Acct:[id number] Age/Sex: 68 / F ADM Date: 06/06/24 Loc: MS 220-[address]: Luisito Townsend M.D. Ordering Physician: Luisito Townsend M.D. Date of Service: 06/07/24 Procedure(s): XR chest 2V Accession Number(s): [id number] cc: NATIVIDAD SILVA ; Luisito Townsend M.D. [place] [address] Patient Name: MARY VICK MRN: [id number] date: 1955 Sex: F Assigned Patient Location: [place] Current Patient Location: [place] Accession/Order Number: [id number] Exam Date: 06/07/2024 08:45 Report Date: 06/07/2024 [...] M.D. Signed By: 06/07/24902 DD/ 9 TD/TT: Supervisor Doping:Troponin I High Sensitivity Reviewed date:06/06/2024 06:59:30 PM Interpretation: Performing Lab: Notes/Report: [facility] ,Troponin I High Sensitivity5.64.0-51.3 pg/mL CUT-OFF POINTS HAVE BEEN ESTABLISHED BASED ON THE FOURTH UNIVERSAL DEFINITION OF MYOCARDIAL INFARCTION. THE UPPER REFERENCE LIMIT (URL) OF TROPONIN, DEFINED THE 99TH PERCENTILE OF cTnI DISTRIBUTION IN A REFERENCE POPULATION, HAS BEEN CONFIRMED THE DECISION THRESHOLD FOR DE DIAGNOSIS. 99TH PERCENTILE = 51.4 PG/ML NOTE: HIGH-SENSITIVITY TROPONIN ASSAY IS NOT INTENDED TO BE USED IN ISOLATION BUT SHOULD BE INTERPRETED IN CONJUNCTION WITH OTHER DIAGNOSTIC AND CLINICAL INFORMATION. Performing Lab:see noteML - [facility] LBBNP Reviewed date:06/06/2024 06:59:30 PM Interpretation: Performing Lab: Notes/Report: [facility] ,NT Pro B Type Natriuretic Pept59.0<=900.0 pg/mLPerforming Lab:see noteML - [facility] LBCT cervical spine wo con Reviewed date:06/06/2024 06:59:30 PM Interpretation: Performing Lab: Notes/Report: Source Facility: [facility]-[address] [place] [address] [place] [address] CT Scan Report Signed Patient: MARY VICK MR#: [id number] : 1955 Acct:[id number] Age/Sex: 68 / F ADM Date: 06/06/24 Loc: MS 220-[address]: Luisito Townsend M.D. Ordering Physician: Lesia Holguin D.O. Date of Service: 06/06/24 Procedure(s): CT cervical spine wo con Accession Number(s): [id number] cc: NATIVIDAD SILVA [place] [address] Patient Name: MARY VICK MRN: [id number] date: 1955 Sex: F Assigned Patient Location: ER Current Patient Location: [place] Accession/Order Number: [id number] Exam Date: 06/06/2024 09:14 Report Date: 06/06/2024 [...] M.D. Signed By: 06/06/241516 DD/ 14 TD/TT: Supervisor Doping:CT head/brain wo con Reviewed date:06/06/2024 06:59:30 PM Interpretation: Performing Lab: Notes/Report: Source Facility: [place] [address] CT Scan Report Signed Patient: MARY VICK MR#: [id number] : 1955 Acct:[id number] Age/Sex: 68 / F ADM Date: 06/06/24 Loc: MS 220-[address]: Luisito Townsend M.D. Ordering Physician: Lesia Holguin D.O. Date of Service: 06/06/24 Procedure(s): CT head/brain wo con Accession Number(s): [id number] cc: NATIVIDAD SILVA [place] [address] Patient Name: MARY VICK MRN: [id number] date: 1955 Sex: F Assigned Patient Location: Current Patient Location: [place] Accession/Order Number: [id number] Exam Date: 06/06/2024 09:14 Report Date: 06/06/2024 [...] is intact. No skull fracture. Nasopharynx normal. 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 Orbital contents are unremarkable. Mild [...] Signed By: 06/06/24 1517 DD/ 1515 TD/TT: Supervisor Doping:CT FACIAL BONES WO CON Reviewed date:06/06/2024 06:59:30 PM Interpretation: Performing Lab: Notes/Report: Source Facility: [place] [address] [place] [address] CT Scan Report Signed Patient: MARY VICK MR#: [id number] : 1955 Acct:[id number] Age/Sex: 68 / F ADM Date: 06/06/24 Loc: MS 220-[address]: Luisito Townsend M.D. Ordering Physician: Lesia Holguin D.O. Date of Service: 06/06/24 Procedure(s): CT facial bones wo con Accession Number(s): [id number] cc: NATIVIDAD SILVA [place] [id number] Patient Name: MARY VICK MRN: [id number] date: 1955 Sex: F Assigned Patient Location: ER Current Patient Location: [place] Accession/Order Number: [id number] Exam Date: 06/06/2024 09:14 Report Date: 06/06/2024 [...] Quintana M.D. Signed By: 06/06/24 1517 DD/ 151 TD/TT: Supervisor Doping:Prothrombin Time INR Reviewed date:06/06/2024 09:21:21 AM Interpretation: Performing Lab: Notes/Report: [facility] ,Prothrombin Time10.49.0-11.6 secINR0.98 DESIRED INR: 2.0-3.0 CONDITIONS NOT LISTED BELOW 2.5-3.5 FOR PROSTHETIC HEART VALVE REPLACEMENT 2.5-3.5 RECURRENT THROMBOSIS Performing Lab:see noteML - [facility] LBPROF 14(COMP METB) Reviewed date:06/06/2024 09:21:21 AM Interpretation: Performing Lab: Notes/Report: [facility] ,Hkcjsd765102-603 mmol/LPotassium4.03.5-5.1 mmol/UTarmclah06525-978 mmol/LCarbon Tnhcrwp87.921.0-32.0 mmol/LAnion Gap13.8Iyxufmg8107-027 mg/dLBlood Urea Ahvshizw02.07.0-18.0 mg/dLCreatinine1.080.55-1.02 mg/dLEstimated GFR ( [place]>60>=60 mL/min/1.73m 2Estimated GFR (Non- Ame50>=60 mL/min/1.73m 2 BUN Creatinine Ratio13.4Mkngsbq4.68.5-10.1 mg/dLBilirubin Total0.30.2-1.0 mg/dL Aspartate Amino Rzpfsflzkbc9569-33 U/LAlanine Cxccisyfkdxttili0614-88 U/L Alkaline Ammhvqkapln7525-181 U/LTotal Protein6.66.4-8.2 g/dLAlbumin Level3.33.4- 5.0 g/dLGlobulin3.3Albumin Globulin Ratio1.0Performing Lab:see noteML - [facility] LBCBC AUTO DIFF Reviewed date:06/06/2024 09:21:21 AM Interpretation: Performing Lab: Notes/Report: [facility] ,White Blood Count8.44.0-11.0 10 3/uLRed Blood Count3.974.20-5.40 10 6/uL Kyvftlfist82.412.0-16.0 g/jHRxwmwctouj91.936.0-48.0 %Mean Corpuscular Belzur68.4 81.0-99.0 fLMean Corpuscular Uldkzxjaoy51.726.7-34.0 pgMean Corpuscular HGB Conc 31.829.9-35.2 g/dLRed Cell Distribution Width16.211.0-15.0 %Platelet Lumif801 150-450 10 3/uLMean Platelet Xmftlt25.19.5-13.5 fLNeutrophils Percent Auto76.7 43.0-75.0 %Lymphocytes Percent Auto11.720.5-60.0 %Monocytes Percent Auto7.51.7- 12.0 %Eosinophils Percent Auto2.50.9-7.0 %Basophils Percent Auto0.80.2-2.0 % Immature Granulocytes Pct Auto0.80.0-0.5 %Neutrophils Absolute Auto6.41.4-6.5 10 3/uLLymphocytes Absolute Auto1.01.2-3.8 10 3/uLMonocytes Absolute Auto0.60.3- 0.8 10 3/uLEosinophils Absolute Auto0.20.0-0.7 10 3/uLBasophils Absolute Auto0.1 0.0-0.1 10 3/uLImmature Granulocytes Abs Auto0.070.00-0.03 10 3/uLPerforming Lab:see noteML - [facility] LBXR hip LUANA Reviewed date:05/03/2024 09:47:50 AM Interpretation: Performing Lab: Notes/Report: Source Facility: [facility]-[address] [place] [address] [place] [address] XRay Report Signed Patient: MAYR VICK MR#: [id number] : 1955 Acct:[id number] Age/Sex: 68 / F ADM Date: 05/03/24 Loc: RAD Attending Dr: Varun Monique M.D. Ordering Physician: Varun Monique M.D. Date of Service: 05/03/24 Procedure(s): XR hip LUANA Accession Number(s): [id number] cc: NATIVIDAD SILVA ; Varun Monique M.D. [place] [address] Patient Name: MARY VICK MRN: [facility]:[id number] date: 1955 Sex: F Assigned Patient Location: [facility] Current Patient Location: [facility] Accession/Order Number: [id number] Exam Date: 05/03/2024 09:00 Report Date: 05/03/2024 [...] M.D. Signed By: 05/03/24922 DD/ 0 TD/TT: Supervisor Doping:LIPID PROFILE Reviewed date:05/03/2024 11:25:54 AM Interpretation: Performing Lab: Notes/Report: [facility] ,Affuquyxwazse00<=150 mg/vRNcorayyqqwt865<=200 mg/dLHDL Dyyjmpeyigg2703-62 mg/dL > or =60 mg/dl - LOW CARDIOVASCULAR RISK <40 mg/dl - HIGH CARDIOVASCULAR RISK LDL Cholesterol Bcmdiayhfs677.0 <100 mg/dl OPTIMAL 100-129 mg/dl NEAR OR ABOVE OPTIMAL 130-159 mg/dl BORDERLINE HIGH 160-189 mg/dl HIGH >190 mg/dl VERY HIGH VLDL ZVSUTYBCTAJ89.8Chol HDL Ratio2.9 3.3 - 4.4 LOW RISK 4.4 - 7.1 AVERAGE RISK 7.1 - 11.0 MODERATE RISK >11.0 HIGH RISK Performing Lab:see noteML - [facility] LBXR chest 1V Reviewed date:10/25/2024 11:04:31 AM Interpretation: Performing Lab: Notes/Report: Source Facility: [facility]-[address] [place] [address] [place] [address] XRay Report Signed Patient: MARY VICK MR#: [id number] : 1955 Acct:[id number] Age/Sex: 69 / F ADM Date: 10/25/24 Loc: ER Attending Dr: Ordering Physician: Donny Escalante M.D. Date of Service: 10/25/24 Procedure(s): XR chest 1V Accession Number(s): [id number] cc: NATIVIDAD SILVA ; Donny Escalante M.D. [place] [id number] Patient Name: MARY VICK MRN: [id number] date: 1955 Sex: F Assigned Patient Location: ED.MAIN Current Patient Location: ED.MAIN Accession/Order Number: [id number] Exam Date: 10/25/2024 10:25 Report Date: 10/25/2024 [...] Avina M.D. 10/25/2024 10:29 AM Dictation Location: [place] [address] Electronically authenticated by: [id number] Y Date: 10/25/2024 10:29 Dictated By: Alysia Avina M.D. Signed By: 10/25/24 1031 DD/ 1029 TD/TT: Supervisor Doping:ECG 12 lead Reviewed date:10/26/2024 08:52:28 AM Interpretation: Performing Lab: Notes/Report: Source Facility: [facility]-[address] [place] [address] [place] [address] Electrocardiograph Report Signed Patient: MARY VICK MR#: [id number] : 1955 Acct:[id number] Age/Sex: 69 / F ADM Date: 10/25/24 Loc: ER Attending Dr: Ordering Physician: Donny Escalante M.D. 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 Measurements Intervals [place] Rate: 77 P: 28 VT: 156 QRS: 72 QRSD: 88 T: 66 QT: 390 QTc: 421 Interpretive Statements 1100 Sinus rhythm 9110 normal ECG Compared to ECG 06/17/2024 10:59:54 No significant changes Electronically Signed On 10-25-2024 20:19:40 EDT by EFFIE COOK M.D. Dictated By: EFFIE COOK Signed By: 10/25/242019 DD/ 0 TD/TT: Supervisor Doping:Troponin I High Sensitivity Reviewed date:10/25/2024 11:04:31 AM Interpretation: Performing Lab: Notes/Report: [facility] ,Troponin I High Sensitivity7.04.0-51.3 pg/mL CUT-OFF POINTS HAVE BEEN ESTABLISHED BASED ON THE FOURTH UNIVERSAL DEFINITION OF MYOCARDIAL INFARCTION. THE UPPER REFERENCE LIMIT (URL) OF TROPONIN, DEFINED THE 99TH PERCENTILE OF cTnI DISTRIBUTION IN A REFERENCE POPULATION, HAS BEEN CONFIRMED THE DECISION THRESHOLD FOR DE DIAGNOSIS. 99TH PERCENTILE = 51.4 PG/ML NOTE: HIGH-SENSITIVITY TROPONIN ASSAY IS NOT INTENDED TO BE USED IN ISOLATION BUT SHOULD BE INTERPRETED IN CONJUNCTION WITH OTHER DIAGNOSTIC AND CLINICAL INFORMATION. Performing Lab:see noteML - [facility] LBPROF CHEM 8 (BAS METB) Reviewed date:10/25/2024 11:04:31 AM Interpretation: Performing Lab: Notes/Report: [facility] ,Hjoqyw353994-647 mmol/LPotassium4.53.5-5.1 mmol/HGryzbibg72199-187 mmol/LCarbon Trwgcer75.921.0-32.0 mmol/LAnion Gap13.4Incsoxw02162-842 mg/dLBlood Urea Zqmuhtic32.07.0-18.0 mg/dLCreatinine1.630.55-1.02 mg/dLEstimated GFR ( Uuismwh03>=60 mL/min/1.73m 2Estimated GFR (Non- Ame31>=60 mL/min/1.73m 2 BUN Creatinine Ratio33.5Zwmdhaw7.28.5-10.1 mg/dLPerforming Lab:see noteML - [facility] LBD-DIMER Reviewed date:10/25/2024 11:04:31 AM Interpretation: Performing Lab: Notes/Report: [facility] ,D Dimer0.98<=0.59 mg/L FEU RESULTS CALLED TO YARELI SCHMITT [...] anticoagulant therapy, stress, and generalized hospitalization. Performing Lab:see noteML - [facility] LBCBC AUTO DIFF Reviewed date:10/25/2024 11:04:31 AM Interpretation: Performing Lab: Notes/Report: [facility] ,White Blood Count14.54.0-11.0 10 3/uLRed Blood Count4.284.20-5.40 10 6/uL Bcpszdvabf55.012.0-16.0 g/dLZcjlzripvv03.036.0-48.0 %Mean Corpuscular Rdguco42.1 81.0-99.0 fLMean Corpuscular Ovywkyesjn68.426.7-34.0 pgMean Corpuscular HGB Conc 33.329.9-35.2 g/dLRed Cell Distribution Width16.911.0-15.0 %Platelet Jyugu942 150-450 10 3/uLMean Platelet Numikm37.09.5-13.5 fLNeutrophils Percent Auto91.7 43.0-75.0 %Lymphocytes Percent Auto3.020.5-60.0 %Monocytes Percent Auto2.91.7- 12.0 %Eosinophils Percent Auto0.00.9-7.0 %Basophils Percent Auto0.30.2-2.0 % Immature Granulocytes Pct Auto2.10.0-0.5 %Neutrophils Absolute Auto13.31.4-6.5 10 3/uLLymphocytes Absolute Auto0.41.2-3.8 10 3/uLMonocytes Absolute Auto0.40.3- 0.8 10 3/uLEosinophils Absolute Auto0.00.0-0.7 10 3/uLBasophils Absolute Auto0.0 0.0-0.1 10 3/uLImmature Granulocytes Abs Auto0.310.00-0.03 10 3/uLPerforming Lab:see noteML - [facility] LBBNP Reviewed date:10/25/2024 11:04:31 AM Interpretation: Performing Lab: Notes/Report: [facility] ,NT Pro B Type Natriuretic Pept44.0<=900.0 pg/mLPerforming Lab:see noteML - [facility] LBXR wrist LT min 3V Reviewed date:06/06/2024 10:53:15 AM Interpretation: Performing Lab: Notes/Report: Source Facility: [facility]-[address] [place] [address] [place] [address] XRay Report Signed Patient: MARY VICK MR#: [id number] : 1955 Acct:[id number] Age/Sex: 68 / F ADM Date: 06/06/24 Loc: ER Attending Dr: Ordering Physician: Lesia Holguin D.O. Date of Service: 06/06/24 Procedure(s): XR wrist LT min 3V Accession Number(s): [id number] cc: NATIVIDAD SILVA ; Lesia Holguin D.O. The [place] [address] Patient Name: MARY VICK MRN: [id number] date: 1955 Sex: F Assigned Patient Location: ER Current Patient Location: ER Accession/Order Number: [id number] Exam Date: 06/06/2024 09:14 Report Date: 06/06/2024 [...] Signed By: 06/06/24 1033 DD/ 1030 TD/TT: Supervisor Doping:CT chest wo con Reviewed date:06/06/2024 06:59:30 PM Interpretation: Performing Lab: Notes/Report: Source Facility: [facility]-[address] [place] [address] The [place] [address] CT Scan Report Signed Patient: MARY VICK MR#: [id number] : 1955 Acct:[id number] Age/Sex: 68 / F ADM Date: 06/06/24 Loc: ER Attending Dr: Ordering Physician: Lesia Holguin D.O. Date of Service: 06/06/24 Procedure(s): CT chest wo con Accession Number(s): [id number] cc: NATIVIDAD SILVA [place] [id number] Patient Name: MARY VICK MRN: [facility]:[id number] date: 1955 Sex: F Assigned Patient Location: ER Current Patient Location: ER Accession/Order Number: [id number] Exam Date: 06/06/2024 09:14 Report Date: 06/06/2024 [...] upper lobe pulmonary nodule measuring 0.6 cm (08/08). 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 Electronically authenticated by: LIANNA ROGERS Date: 06/06/2024 11:56 Dictated By: Lianna Rogers M.D. Signed By: 06/06/24 1159 DD/ 1156 TD/TT: Supervisor Doping: Reason For Referral Reason COPD Diagnosis 1 COPD exacerbation (J 44.1) Referral Organization [facility] Referring Provider First Name Natividad Referring Provider Last Name Karine Referring Provider [facility] araceli Referred Provider Ronni Ac Referred Provider Specialty Pulmonary Di seases Referral Priority Routine Diagnosis 1 COPD (chronic obstru ctive pulmonary disease) (J44.9) Referral Organization [facility] Referring Provider First Name Natividad Referring Provider Last Name Karine Referring Provider [facility] araceli Referred Provider Ronni Ac Referred Provider Specialty Pulmonary Di seases Referral Priority Routine Reason hiatal hernia Diagnosis 1 Hiatal hernia (K44.9 ) Referral Organization [facility] Referring Provider First Name Natividad Referring Provider Last Name Karine Referring Provider [facility] araceli Referred Provider Lara Higgins Referred Provider Specialty Gastroentero logy Referral Priority Routine Medications Medication SIG (Take, Route, Frequency, Duration) Notes Start Date End Date Status Furosemide 20 MG 1 tablet Orally Once a day ActiveKetorolac Tromethamine 10 MG1 tablet with food or milk as needed Orally every 8 hrs prn; Duration: 3 days hold diclofenac, ibuprofen while taking start 10/27/24 5ActiveAbilify 30 MG1 tablet Orally Once a day; Duration: 90 daysActive Levothyroxine Sodium 50 MCG1 tablet in the morning on an empty stomach Orally Once a day; Duration: 90 daysActiveAlbuterol Sulfate (2.5 MG/3ML) 0.083%3 mL as needed Inhalation every 6 hrs; Duration: 14 daysActiveLisinopril 20 MG1 tablet Orally Once a day; Duration: 30 daysActiveAmitriptyline HCl 50 mgTAKE 1 TABLET BY MOUTH AT BEDTIME; Duration: 30ActiveOmeprazole 20 MG1 capsule 1/2 to 1 hour before morning meal Orally BID; Duration: 30 days08/27/2024tiveOmeprazole Magnesium 20 MG1 tablet 1/2 to 1 hour before morning meal Orally Once a day; Duration: 30 daysActiveBaclofen 5 MG1 -2 tablet as needed Orally Once a day; Duration: 14 days02/29/2024ctiveOndansetron HCl 4 MG1 tablet Orally Once a day prn; Duration: 14 rqahPQO17ctiveBreztri Aerosphere 160/9/4.8 mcgas directed inhalation 2 puffs BIDActiveoxyCODONE-Acetaminophen 5-325 MGOral; Duration: 30 DaysActiveFarxiga 10 MG1 tablet Orally Once a dayActiveFerrous Sulfate 325 (65 Fe) MG1 tablet Orally Three times a Week; Duration: 30 days 01/31/2024ctiveDiclofenac Sodium 50 MG1 tablet Orally Twice a dayActivePROzac 20 MG4 capsule Orally once daily; Duration: 90 daysActivePyridium 200 MG1 tablet after meals Orally Three times a day; Duration: 2 days02/20/2025tive rOPINIRole HCl 1 MG1 tablet 1 to 3 hours before bedtime Orally Once a day; Duration: 30 daysActive Immunizations Vaccine Route Administration Date Status Comme nts Flu, Fluzone High-Dose (9066 2) 65 yrs+ (5459-0179) Unknown 02/12/2022 Administered Pneumococcal (Pneumovax 23)Lqbnjvr6802/25/2014dministeredPneumococcal (Prevnar 13)Cwbkgpw2002/28/2018AdministeredPneumococcal (Prevnar 13)Wqxpoxm2602/02/2020 AdministeredPneumococcal (Prevnar 20)Vynhpnp7509/18/2021dministeredPneumococcal (Prevnar 20)Samhlqg9009/18/20218420WuyybbkcarysCTUC-XED-9 (COVID 19) bivalent 30 mcg/0.3 ml coreXqytumh71/17/2023dministeredTdap (Boostrix)Mngkilp7211/25/2021 AdministeredZoster (Zostavax)Hnunhxn9502/27/2016Administered Social History Tobacco Use: Social History Observation [...] Problem Status W/U Status Risk Notes Problem Age-related osteoporosis (606565 002) Age-related osteoporosis without current pathological fracture (M81.0) ActiveconfirmedProblemHeart failure (99302941)Heart failure, unspecified (I50.9) ActiveconfirmedProblemAtherosclerosis of aorta (52199660)Atherosclerosis of aorta (I70.0)ActiveconfirmedProblemDiaphragmatic hernia (08268550)Diaphragmatic hernia without obstruction or gangrene (K44.9)ActiveconfirmedProblemPalpitations (62465991)Palpitations (R00.2)ActiveconfirmedProblemChest pain (18073600)Chest pain (R07.9)ActiveconfirmedProblemCOPD - Chronic obstructive pulmonary disease (20471517)COPD (chronic obstructive pulmonary disease) (J44.9)Activeconfirmed ProblemGastroesophageal reflux disease (101338205)GERD (gastroesophageal reflux disease) (K21.9)ActiveconfirmedProblemAnxiety (97007491)Anxiety (F41.9)Active confirmedProblemHypothyroid (67626487)Hypothyroid (E03.9)ActiveconfirmedProblem Insomnia (686707964)Insomnia (G47.00)ActiveconfirmedProblemMigraine (46542899) Migraine (G43.909)ActiveconfirmedProblemAcute exacerbation of chronic obstructive airways disease (945893053)COPD exacerbation (J44.1)Activeconfirmed ProblemOsteoporosis (55489719)Osteoporosis (M81.0)ActiveconfirmedProblemAcquired hypothyroidism (362680740)Acquired hypothyroidism (E03.9)ActiveconfirmedProblem Dyspnea (086868259)Exertional shortness of breath (R06.02)ActiveconfirmedProblem Rib fracture (92892623)Rib fracture (S22.39XA)ActiveconfirmedProblemLeukocytosis (727270671)Leukocytosis (D72.829)ActiveconfirmedProblemIron deficiency anemia (53538373)Anemia, iron deficiency (D50.9)ActiveconfirmedProblemMemory deficit (881872850)Memory deficit (R41.3)ActiveconfirmedProblemGastropathy (23711689) Gastropathy (K31.9)ActiveconfirmedProblemExcessive caffeine intake (834889803996973)Excessive caffeine intake (Z91.89)ActiveconfirmedProblem Essential hypertension (47966729)BP (high blood pressure) (I10)Activeconfirmed ProblemDiaphragmatic hernia (70771868)Large hiatal hernia (K44.9)Activeconfirmed ProblemMixed anxiety and depressive disorder (549180553)Anxiety and depression (F41.8)ActiveconfirmedProblemMild pulmonary hypertension (474146618)Mild pulmonary hypertension (I27.20)ActiveconfirmedProblemObese class II (finding) (000733508474937)Class 2 obesity (E66.9)ActiveconfirmedProblemImaging result abnormal (362982398)Abnormal findings on diagnostic imaging of other specified body structures (R93.89)ActiveconfirmedProblemDisease caused by Severe acute respiratory syndrome coronavirus 2 (disorder) (747568018)COVID (U07.1)Active confirmedProblemSupraventricular tachycardia (disorder) (1063551) Supraventricular tachycardia, unspecified (I47.10)Activeconfirmed Vital Signs Heart Rate 80 /min 12/24/2024 Blood pressure rxsdglazm97 mm Hg03/18/20256345Yfxdwvxn65 %12/24/20244592Ljblqw63 in 03/18/2025lood pressure ijnlkzlo262 mm Hg03/18/20253579Zaomcu262 lbs1MI 31.64 kg/m203/18/2025 Procedures Procedure Date Ordered Date Performed Result Body Sit e Six minute walk 11/30/2024 N/APFT Zzeexkfl47/11/2025N/A Encounters Encounter Location Date Provider Diagnosis [facility] [address] [facility]], [place] [address] 03/07/2025 Natividadean Silva Anxiety F41.9 and Migraine, unspecified, not intractable, without status migrainosus G43.909 [facility] [address] [facility]], [place] [address] 03/15/2025 Natividad Silva [facility] [facility]], [place] [address] 12/14/2024Natividad [facility] [facility]], [place] [address]/Natividad SilvaAnxiety F41.9[facility] [facility]], [place] [address]/Paelissa [facility] [facility]], [place] [address]/01/2025Natividad [facility] [facility]], [place] [address]/Natividad [facility] [facility]], [place] [address]/Natividad [facility] [facility]], [place] [address] 11/05/2024Ntaividad [facility] [facility]], [place] [address]/11/2024Natividad [facility] [address] [facility]], [place] [address]/03/2025Natividad Arcos (shortness of breath) R06.02[facility] [facility]], [place] [address]/Pamela [facility] [facility] [place] [address]/Pamela CramerCOPD exacerbation J44.1BMem[facility] [facility] [place] [address] 12/11/2024Pamela CramerCOPD (chronic obstructive pulmonary disease) J44.9[facility] [facility] [place] [address]/11/2024 Natividad [facility] [facility] [place] [address]/Pamela [facility] [facility] [place] [address]/12/2024Pamela [facility] [facility] [place] [address]/Pamela Karine Abnormal findings on diagnostic imaging of other specified body structures R93.89[facility] [facility] [place] [address]/Pamela [facility] [facility] [place] [address]/10/2024Pamela CramerCompression fracture of body of thoracic vertebra S22.000A and Osteoporosis M81.0[facility] [facility] [place] [address]/4Pamela [facility] [facility] [place] [address] 4Pamela CramerMigraine G43.909[facility] [facility] [place] [place] [address]/Doug [facility]BM[facility] [address] [facility] [place] [address]/Pamela [facility] [facility] [place] [place] [address]/Pamela CramerBVH [facility] [facility] [place] [address] 08/27/2024Pamela CramerMigraine G43.909[place] [address] [place] [address]/10/2024Pamela CramerOsteoporosis M81.0 ; Hypothyroid E03.9 and Compression fracture of body of thoracic vertebra S22.000 [place] [address] [place] [address] 11/30/2024Pamela CramerCOPD exacerbation J44.1BM[facility] [address] [place] [address]/08/2024Pamela CramerHeart failure, unspecified I50.9 ; Anxiety F41.9 and Mild pulmonary hypertension I27.20[place] [address] [place] [address]/08/2024Pamela CramerHiatal hernia K44.9BJames [place] [address]5825 [place] [address]/05/2024Doug HoyDysuria R30.0 and UTI (urinary tract infection), uncomplicated N39.0[place] [address] [place] [address]/Pamela CramerDysuria R30.0[place] [address] [place] [address]/Pamela CramerMigraine G43.909[place] [address] [place] [address]/amela CramerCOPD exacerbation J44.1[address] [place] [address]/4Pamela CramerAtherosclerosis of aorta I70.0 ; Class 2 obesity E66.9 and Mild pulmonary hypertension I27.20 Assessments Encounter Date Diagnosis (ICD Code) Assessment Notes Treatment Notes Treatment Clinical Notes Section Notes 04/09/2024 COPD exacerbation (ICD-10 - J44. 1) trelegy encouraged to start using inhaler daily, consistently 05/01/2024therosclerosis of aorta (ICD-10 - I70.0) not on statin check lipids 05/01/2024lass 2 obesity (ICD-10 - E66.9)work on diet10/09/2024Migraine (ICD-10 - G43.909)Toradol 60 norflex 60010/26/2024Osteoporosis (ICD-10 - M81.0)check on continuing infusions at 10/26/2024Hypothyroid (ICD-10 - E03.9)11/30/2024OPD exacerbation (ICD-10 - J44.1) continue trelegy, albuterol walk test monitor pulse ox, to ER if needed 12/24/2024Heart failure, unspecified (ICD-10 - I50.9)follows with cardiology 12/24/2024nxiety (ICD-10 - F41.9) stop amitrip, discussed with patient, verbalizes understanding said taking for sleep but doesnt think helps much trial of buspirone, stop if SE fu 1m, prn 05/21/2024Migraine (ICD-10 - G43.909)08/27/2024Migraine (ICD-10 - G43.909) 10/02/2024bnormal findings on diagnostic imaging of other specified body structures (ICD-10 - R93.89)10/26/2024ompression fracture of body of thoracic vertebra (ICD-10 - S22.000A)10/26/2024Osteoporosis (ICD-10 - M81.0)11/30/2024SOB (shortness of breath) (ICD-10 - R06.02)12/05/2024OPD exacerbation (ICD-10 - J44.1)12/11/2024OPD (chronic obstructive pulmonary disease) (ICD-10 - J44.9) 01/07/2025nxiety (ICD-10 - F41.9)03/07/2025nxiety (ICD-10 - F41.9)03/18/2025 Dysuria (ICD-10 - R30.0)01/24/2025Hiatal hernia (ICD-10 - K44.9)02/20/2025 Dysuria (ICD-10 - R30.0)02/20/2025UTI (urinary tract infection), uncomplicated (ICD-10 - N39.0)Drink plenty of water. Avoid drinks like coffee, alcohol and soft frinks, as these can irritate your bladder and aggravate your frequent or urgent need to urinate. Apply a warm heating pad to your abdomen to minimize bladder pressure or discomfort. You have been prescribed antibiotics for a urinarytract infection. Antibiotics may bother your stomach, so try taking them with a light meal (unless instructed otherwise by your pharmacist). It is important to take them until they are finished. You can use boco-qyr-tozzhuj acetaminophen or ibuprofen if needed for pain. You should follow up with your Primary Care Physician or return to clinic if not improving in the next 3-5 days.03/07/2025Migraine, unspecified, not intractable, without status migrainosus (ICD-10 - G43.909)12/24/2024Mild pulmonary hypertension (ICD-10 - I27.20) follows with cardiology upcoming pulm apt 10/26/2024ompression fracture of body of thoracic vertebra (ICD-10 - S22.000A) took percocet didnt help toradol injection helped yesterday fu pain man, dr Hernandez 05/01/2024Mild pulmonary hypertension (ICD-10 - I27.20) see pulmonary? defers for now sees cardiology 05/01/2024Other SLUMS exam negative for cognitive impairment tested normal Plan Of Treatment Pending Test Test Name Order Date LIPID PANEL (CHOL/TRIG/HDL/LDL) 05/01/20 24 Six minute walk 11/30/2024 T3 FREE, T4 FREE and TSH 10/31/2023 T3 FREE, T4 FREE and TSH 02/06/2024 UA DIP NONAUTO WO MICRO (96719) - IN OFF ICE 02/20/2025 PFT Complete 11/30/2024 COVID 19 SWAB ANTIGEN [...] Date [employer] MEDICARE ADV PLAN [address] [place] [address] [phone] [id number] [facility] Clementine Vickh Self - patient is the insured 4 Medications Administered Medication Instructions Date of Administration Dosage Notes Ketorolac Tromethamine xb67Ysudebdkp Ehlteqhrwozb64/28/472021 mg60 mgKetorolac Qjbazyplhptj42/23/609213 hl04Lsamcnfpd Hswnvvndpltw00/09/690074 mgKetorolac Jmahzldurejp88/25/874226 mgKetorolac Nrycnbeabzrf35/28/340254 mgKetorolac Zuypkxtczfaz25/20/893923 mgKetorolac Jrrrfcexivcz75/06/527493 mgNorflex 360 mg60 mgOrphenadrine Gxuhgdn44/23/766157 mgOrphenadrine Citrate 460 mgOrphenadrine Ddtcoyc41/28/368948 mgOrphenadrine Kkxhzuh0610/09/2024 60 xuTzwygdsre07/15/284327 reVjuvntuxd57/28/270209 mgPromethazine 25mg03/16/2024 25 mgPromethazine, 25 mg425 mg Medical (General) History Medical History History ICD Code Restless legs G25.81 Arthritis M19.90 Bipolar 1 disorder F31.9 COPD (chronic obstructive pulmonary dise ase) J44.9 COVID U07.1 Arthritis of both knees M17.0 Fracture of body of sternum, sequela S22 .22XS GERD (gastroesophageal reflux disease) K 21.9 Esophageal hernia K44.9 Hypertension I10 Migraines G43.909 Osteoporosis M81.0 Pneumonia J18.9 Thyroid disorder E07.9 J-Shaped stomach Surgical History Surgery Date(Month/Year) Ablation lumbar spine Cataract removal and eye liftAPPENDECTOMYJaw SurgeryHYSTERECTOMY TOTAL Colonoscopy- Dr Coreyl106/2023Hospitalization History Reason Date(Month/Year) migraine 01/13
--- OUTSIDE RECORDS SUMMARY | 2025-03-28 07:59 | XMS_ITS | Clinical Summary ---
Author Organization [employer] Address [facility] [place] [address] Care Team Providers Care Loss Prevention Detective Name Role Phone Bull Forrest DO Primary Care Provider [phone] Allergies Active AllergyReactionsCriticalityNoted DateCommentsSumatriptanOther (See Comments)03/19/2020 Tachycardia fainting Medications MedicationSigDispense QuantityRefillsLast FilledStart DateEnd DateStatus ARIPiprazole (ABILIFY) 10 mg disintegrating tablet Dissolve 10 mg on tongue daily.Active levothyroxine (SYNTHROID, LEVOTHROID) 100 MCG tablet Take 100 mcg by mouth daily.Active calcium carbonate-vitamin D3 (OSCAL 500 + D) 500 mg(1,250mg) -200 units per tablet Take 1 tablet by mouth 2 (two) times a day with meals.Active metoprolol succinate XL (TOPROL-XL) 100 mg 24 hr tablet Take 100 mg by mouth daily.Active omeprazole (PriLOSEC) 10 mg capsule Take 10 mg by mouth daily.Active FLUoxetine (PROzac) 10 mg capsule Take 10 mg by mouth daily.Active Active Problems No known active problems Immunizations ImmunizationAdministration DatesNext DueCOVID-19, mRNA, LNP-S, PF, 30mcg/0.3mL Dose08/04/2020,07/14/2020 Social History Tobacco UseTypesPacks/DayYears UsedDateSmoking Tobacco: NeverSmokeless Tobacco: Never Comments:3 months ago quit s moking Alcohol UseStandard Drinks/WeekCommentsNot Currently0 (1 standard drink = 0.6 oz pure alcohol)ChildcareAnswerDate IowngipgKutcucweaUokawup90/24/2020Employment AnswerDate TzjydbubYhrmhlvmhgVxqukkk83/24/2020Purpose - LifeAnswerDate Recorded Purpose and direction in pjkcJheddyi74/11/2021CommentsNoSex and Gender InformationValueDate RecordedSex Assigned at BirthNot on fileLegal SexFemale 12/26/2014 11:49 AM EDTGender IdentityNot on fileSexual OrientationNot on file Last Filed Vital Signs Vital SignReadingTime TakenCommentsBlood Wzdgsyka775/5703 1:30 PM EST Tavsh617807/24/2020 1:30 PM UAPRakdvrqzmxf51.4 ??C (97.6 ??F)07/24/2020 10:41 AM ESTRespiratory Umog547607/24/2020 1:30 PM ESTOxygen Dixypmgdug98%07/24/2020 1:30 PM ESTInhaled Oxygen Concentration--Hmhfxm96.5 kg (195 lb)07/24/2020 10:41 AM GSSNgoaak148.6 cm (5' 6 )07/24/2020 10:41 AM ESTBody Mass Index31.47007/24/2020 10:41 AM EST Plan of Treatment Health MaintenanceDue DateLast DoneCommentsDepression Cfqyjaogt35/09/1966Tobacco Nulxmukwa28/09/1966Adult BMI Gyceaceiq98/09/1972Zoster (Shingles) Vaccine (2 of 3)Fall Risk Iafghdezd73/09/2019COVID-19 Vaccine (3 - season)503/, 07/14/2020Influenza Jmqojbh03/01/514340/04/2020, 02/19/2019, 02/28/2018, Additional history existsDTaP,Tdap and Td Vaccines (2 - Td or Tdap)RSV ( or age 60+ yrs) (1 - 1-dose 75+ series)2028 Medical Devices ImplantedTypeAreaManufacturerDevice IdentifierShelf Expiration DateModel / Serial / LotLens Iol Ultrasert 23.0d - [id number] - [id number] Implanted:Qty: 1 on 03/27/2020 [facility]: [id number] 23.0 / [id number] / NALens Iol Ultrasert 23.0d - [id number] - [id number] Implanted:Qty: 1 on 04/08/2020 by [facility]re [facility]enton [facility]: [id number] 23.0 / [id number] / NA Insurance Care Teams Team MemberRelationshipSpecialtyStart DateEnd Date Bull Forrest DO [address] [place] [address] PCP - GeneralFamily Trzqvytw02/5/20
--- NOTE | 2025-03-28 08:03 | XR_ITS ---
The [address] [address] Patient Name: MELANIE TOMPKINS MRN: [id number] date: 1955 Sex: F Assigned Patient Location: [facility] Current Patient Location: [facility] Accession/Order Number: [id number] Exam Date: 03/28/2025 08:10 Report Date: 03/28/2025 10:33 At the request of: NON-STAFF PHYSICIAN MD Procedure: XR chest 2V PA AND LATERAL CHEST: CLINICAL 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 Continued interstitial changes are seen. There is mild lower lobe atelectasis or scarring. There is no developing consolidation, effusion or pneumothorax. The cardiac, hilar and mediastinal silhouettes are unchanged including a large air-containing hiatal hernia. There is no vascular congestion. The visualized bony structures are osteopenic. There is kyphosis secondary to compression fracture at T10. There are mild degenerative changes. XR/XR chest 2V IMPRESSION: HIATAL HERNIA. CONTINUED INTERSTITIAL CHANGES WITH SCARRING AND/OR ATELECTASIS. NO OTHER ACUTE FINDINGS Impression dictated by: Alysia Avina M.D. 03/28/2025 10:33 AM Dictation Location: [place] [address] Electronically authenticated by: [id number] Y Date: 03/28/2025 10:33
== END 2025-03-28 07:51 | disposition home or self-care (01) ==
LOC: RAD 07:55
PROVIDERS: PCP Nurse Practitioner Family
DX: K44.9 Diaphragmatic hernia without obstruction or gangrene (principal)
CPT/HCPCS: 71046

== ENCOUNTER 2025-04-18 22:26 | Emergency (ER) | payer MEDICARE, SELFPAY ==
--- OUTSIDE RECORDS SUMMARY | 2024-12-14 04:20 | XMS_ITS ---
Author Organization [facility] Address [address] [place] [address] Care Team Providers Care Petroleum Refining Firer Name Role Phone Natividad Milton Primary Care Provider Rhett Galo Unavailable [phone] REASON FOR VISIT THORACIC/LUMBAR MRI REVIEW Encounters Encounter Location Date Provider Diagnosis [facility] [address] [place] [address] 12/14/2024 Rhett Hernandez Plan Of Treatment No Information Progress Notes * MELANIE TOMPKINS MDOB:1955 (69 yo F)Acc No.[id number]:12/14/2024 Patient:?MELANIE TOMPKINS :?Rhett Norton MD, PhDDOB:1955 ???Age:69 Y???Sex:FemaleDate:12/14/2024Phone:[phone]:[address] [facility] [place], [id number]:Natividad Milton Subjective: * Chief Complaints: * 1 . THORACIC/LUMBAR MRI REVIEW. * Medical History: Objective: * Vitals: Assessment: Plan: * Treatment: Forms: * Images: * Electronic signature of Rhett Hernandez MD, PHD on 04/18/2025 at 10:48 PM EST Sign off status: Pending * Provider: Dav Norton MD, PhD Date: 0 12/14/2024 Generated for Printing/Edving/Bharatismitting on:?04/18/2025 10:48 PM EST
--- OUTSIDE RECORDS SUMMARY | 2025-04-05 05:39 | XMS_ITS | Encounter Summary ---
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 Primary Care Provider Sabrina Felix MD Unavailable [phone] Source Comments In the event this information is protected by the Federal Confidentiality of Alcohol and Drug AbusePatient Records regulations: The Federal rules restrict any use of the information to criminally investigate or prosecute any alcohol or drug abuse patient.[facility] Reason for Referral * Transition of Care (Routine)SpecialtyDiagnoses / ProceduresReferred By Contact Referred To ContactCARDIOLOGY [facility] [place] [address] Phone: tel: Referral IDStatusReasonStart DateExpiration DateVisits RequestedVisits Authorized PCP Requested Referral * Outpatient Procedure (Routine) - New RequestSpecialtyDiagnoses / Procedures Referred By ContactReferred To ContactPARKVIEW [facility] Diagnoses Chronic congestive heart failure, unspecified heart failure type (HCC) Procedures ECG COMPLETE ECG ROUTINE ECG W/LEAST 12 LDS W/I&R Joo Bales [address] [place] [address] Phone: tel: fax: [facility] [address] [place] [address] Referral IDStatusReSt DateExpiration DateVisits RequestedVisits [id number] Request Auto-Generated Referral * Transition of Care (Routine)SpecialtyDiagnoses / ProceduresReferred By Contact Referred To ContactCARDIOLOGY [facility] [address] [address] Phone: tel: Referral IDStatusReasonStart DateExpiration DateVisits RequestedVisits Authorized PCP Requested Referral Reason for Visit * Auth/Cert (Routine)SpecialtyDiagnoses / ProceduresReferred By ContactReferred To ContactADMITTING Diagnoses Preoperative examination Hiatal hernia Preoperative examination [Z01.818] Hiatal hernia [K44.9] Procedures LAPS RPR PARAESPHGL HRNA INCL FUNDPLSTY W/MESH LAPAROSCOPIC RPR PARAESOPHAGEAL HERNIA W/O FUNDOPLASTY W/ MESH Admitting [address] [place] [id number] Referral IDStatusReasonStart DateExpiration DateVisits RequestedVisits [id number] Encounter Details DateTypeDepartmentCare Team (Latest Contact Info)Nelvcjfqnfm68/14/2025 5:39 AM EST - 04/10/2025 7:24 PM ESTHospital Encounter HOSP MAIN [facility] [place] [address] Joo Bales [address] [place] [address] Preoperative examination [Z01.818], Hiatal hernia [K44.9] Discharge Disposition: Home Social History Tobacco UseTypesPacks/DayYears UsedDateSmoking Tobacco: FormerCigarettesPassive Smoke Exposure: NeverSmokeless Tobacco: NeverAlcohol UseStandard Drinks/Week CommentsNever0 (1 standard drink = 0.6 oz pure alcohol)Area Deprivation Index AnswerDate RecordedNational Score (1-100), lower number is lower risk75 02/21/2025State Score (1-10), lower number is lower bqkg276Data from: https://www.neighborhoodatlas.[facility].edu/. Last address used for yqifnbfnuqp[address]/21/2025CommentsNoSex and Gender Information ValueDate RecordedSex Assigned at BirthNot on fileLegal YbgNawghm08/02/2012 9:17 AM ESTGender IdentityNot on fileSexual OrientationNot on filedocumented as of this encounter Last Filed Vital Signs Vital SignReadingTime TakenCommentsBlood Vtqtwqvv730/7004/10/2025 1:13 PM EST Ogppv036704/10/2025 1:13 PM ODGXodwqgkdmxh13.6 ??C (97.9 ??F)04/10/2025 1:13 PM ESTRespiratory Aulc271906/10/2024 1:13 PM ESTOxygen Zhqutrjyxj21%04/10/2025 1:13 PM ESTInhaled Oxygen Concentration--Gkntig05.7 kg (180 lb 1.9 oz)04/05/2025 4:00 PM HQLRsntof406.9 cm (5' 1 )04/05/2025 4:00 PM ESTBody Mass Index34.03 04/05/2025 4:00 PM ESTdocumented in this encounter Functional Status * Are you deaf or do you have serious difficulty hearing?AnswerDate of CirrfwovonVmkbwvXf01/19/2025 6:57 PM Jovita Vogel RN * Are you blind or do you have serious difficulty seeing, even when wearing glasses?AnswerDate of AadwewwtlwDstwbaSk86/19/2025 6:57 PM Jovita Vogel RN * Do you have serious difficulty walking or climbing stairs?AnswerDate of IfgqecqdrjCbwnrkKs31/19/2025 6:57 PM Jovita Vogel RN * Do you have difficulty dressing or bathing?AnswerDate of AssessmentAuthorNo 04/10/2025 6:57 PM Jovita Vogel RN * Because of a physical, mental, or emotional condition, do you have difficulty doing errands alone such as visiting a doctor's office or shopping?AnswerDate of MylrpffujiAuyiidFt31/19/2025 6:57 PM Jovita Vogel RN documented as of this encounter Mental Status * Because of a physical, mental, or emotional condition, do you have serious difficulty concentrating, remembering, or making decisions?AnswerEntry Date KudzxjKd30/19/2025 6:57 PM Jovita Vogel RN documented in this encounter Discharge Summaries * Dominique Ibarra MD - 04/10/2025 2:44 PM EST Images from the original note were not included. GENERAL SURGERY DISCHARGE SUMMARY PATIENT NAME: Mary Vick ADMISSION DATE: 04/05/2025 DISCHARGE DATE: 04/10/2025 ATTENDING PHYSICIAN: Joo Bales Code Status: Not on file Highest Readmission Risk Score: 8 The 30 day readmissions risk score is derived from an internally validated risk model which evaluates patient level characteristics, utilization history, medication orders and lab results up until the day of discharge. Patients with a score of 39 or above are considered highest risk for readmission. Specific patient level drivers will be listed at the bottom of the summary. REASON FOR HOSPITALIZATION: Surgery and recovery OPERATIONS DURING HOSPITALIZATION: laparoscopic paraesophageal hernia repair PROCEDURES DURING HOSPITALIZATION: IV access Intubation for surgery Anesthesia administration UGI EKG CXR, KUBs CT AP, CT chest Home oxygen study HOSPITAL COURSE: Mary Vick is a 69 year old female with PMHx of CHF, CKD, COPD, anxiety, depression, and hypothyroidism who presented 04/05/25 for a laparoscopic paraesophageal hernia repair with Dr. Bales. The patient tolerated the procedure well, and surgery went as expected. See separate operative report for full OR details. The patient recovered in the PACU. Went into AF RVR in PACU for which cardiology was consulted. Post op course as follows: 04/06- POD 1. NPO, kaye removed. Cardiology recommending formal echo, metoprolol. Converted back to NSR. UGI with gaseous distention, post op ileus, no leak. 04/07- Continue NPO. NGT placed, 1.6L output. 04/08- Outstanding for echo. Erythromycin added. Continue NPO, NGT. Hypokalemia, hypophosphatemia treated. Started on Zosyn for c/f aspiration PNA. 04/09- NGT removed. Started on CLD. 04/10- Advanced to full liquids. Metoprolol held due to bradycardia. Home oxygen study ordered - requires 2L oxygen with exertion. Zosyn switched to PO Augmentin BID x7 days. Electrolytes replaced - hypokalemia, hypophosphatemia. Discharged in afternoon once tolerating FLD and home oxygen arrangements made. Active Hospital Problems Diagnosis POA Paraesophageal hernia Yes Aspiration pneumonia ([facility]) No Chronic interstitial lung disease ([facility]) Yes Ileus, postoperative ([facility]) No Electrolyte imbalance No Malnutrition of mild degree ([facility]) Yes PONV (postoperative nausea and vomiting) Yes Gastroesophageal reflux disease Yes Chronic renal insufficiency Yes CHF (congestive heart failure) ([facility]) Yes Obesity, Class I, BMI 30-34.9 Yes S/P repair of paraesophageal hernia No Post-op pain No COPD (chronic obstructive pulmonary disease) ([facility]) Yes PAF (paroxysmal atrial fibrillation) ([facility]) No Mild pulmonary hypertension ([facility]) Yes Essential hypertension Yes Resolved Hospital Problems No resolved problems to display. Transitions of Care Critical Issues: - FLD x2 weeks until follow up in clinic. - To complete 7 day course PO BID Augmentin. - Encouraged close follow up with PCP. - Cards recs: hold metoprolol on d/c given bradycardia, resume home farxiga and lasix, ok to start coumadin (2 weeks after surgery), follow up closely with cardiology for further management. LABS AND PROCEDURES PENDING AT DISCHARGE: No pending results. CONSULTING TEAMS DURING HOSPITALIZATION: None Treatment Team: Attending Provider: Joo Bales Primary Service: FARRUKH GAMINO Consulting: Sarah Eng Card Consult PATIENT CONDITION AT DISCHARGE: Stable DISCHARGE DISPOSITION: Home INFORMATION PROVIDED TO PATIENT: Diet education, DCI DIET: FLD x2 weeks ACTIVITY: Lifting restricted to < 10 lbs for 4-6 weeks May shower, do not scrub incision No driving while on narcotics May walk and use stairs as tolerated WOUND/SURGICAL SITE CARE: None Allergies Allergen Reactions Sumatriptan Other: See Comments Tachycardia fainting Tachycardia fainting DISCHARGE MEDICATION: Medication List START taking these medications acetaminophen 500 mg tablet Commonly known as: TYLENOL EXTRA STRENGTH Take 1-2 tablets by mouth every 6 hours as needed for pain for up to 5 days. metoclopramide HCl 5 mg tablet Commonly known as: REGLAN Take 1 tablet by mouth three times a day for 5 days. oxyCODONE IR 5 mg immediate release tablet Commonly known as: ROXICODONE Take 1 tablet by mouth every 6 hours as needed for pain for up to 5 days. CHANGE how you take these medications amoxicillin-clavulanate potassium 875-125 mg per tablet Commonly known as: AUGMENTIN Take 1 tablet by mouth every 12 hours for 13 doses. What changed: when to take this CONTINUE taking these medications ALBUTEROL INHALATION amitriptyline 50 mg tablet Commonly known as: ELAVIL ARIPiprazole 30 mg tablet Commonly known as: ABILIFKhanh BREZTRI AEROSPHERE 160-9-4.8 mcg/actuation HFA aerosol inhaler Generic drug: vvrdvyyphh-afmpxmkb-methkxvmle FARXIGA 10 mg tablet Generic drug: dapagliflozin propanediol FLUoxetine 20 mg capsule Commonly known as: PROzac furosemide 20 mg tablet Commonly known as: LASIX levothyroxine 50 mcg Cap lisinopril 40 mg tablet Commonly known as: ZESTRIL OMEPRAZOLE (BULK) MISC POTASSIUM CHLORIDE 2.5 MEQ TAB ROPINIROLE PO STOP taking these medications busPIRone 10 mg tablet Commonly known as: BUSPAR diclofenac-miSOPROStol 50-200 mg-mcg per tablet Commonly known as: ARTHROTEC phenazopyridine 200 mg tablet Commonly known as: PYRIDIUM Where to Get Your Medications These medications were sent to [id number] - [place] [address] - [address] - [phone] [place] [address] amoxicillin-clavulanate potassium 875-125 mg per tablet metoclopramide HCl 5 mg tablet oxyCODONE IR 5 mg immediate release tablet You can get these medications from any pharmacy You don't need a prescription for these medications acetaminophen 500 mg tablet PLAN OF CARE: Plan of care discussed with Provider, RN, Patient and Care Management FUTURE APPOINTMENTS: Future Appointments Date Time Provider Department Center 04/24/2025 11:30 AM Sarai Ramos APRN.TAYLOR Swann The patient's risk for 30-day readmission is determined using the following contributing factors: Predictive Model Details 17% (Low) Factor Value Calculated 04/10/2025 17:20 -15% Zip Code [address] [facility] READMISSION RISK Model 12% Admission Provider Speciality GENERAL SURGERY 7% Malnutrition 1 7% RDW (Max) 17.8 -6% ED visits (365d) 0 -6% Admissions (365d) 1 6% Abs Tamera (Standard Deviation) 3.01 5% procedure count 17 -5% Admissions (60d) 1 -5% Sodium (Avg) 139.71 I have performed the tucr-ve-mfyl and relevant services for a total of >30 minutes. SIGNATURE: Dominique Ibarra MD DATE: April 10, 2025 TIME: 2:25 PM Cosigned by Joo Bales at 04/11/2025 8:56 AM EST Associated attestation - Joo Bales - 04/11/2025 8:56 AM EST I have seen and evaluated the patient and discussed the case with the resident physician. I agree with the assessment and plan as documented in the resident???s note. Fit for discharge. Continue on FLD for 2 weeks. Early follow-up with cardiology to discuss anticoagulation needs. Joo Bales MD General Surgery documented in this encounter Discharge Instructions * Discharge Instr - Other Orders* Dominique Ibarra MD - 04/05/2025 12:16 PM EST My Hospital Stay and Summary This is a summary of your hospital stay. Please read it carefully and share it with your family andhealthcare providers. Date of Admission: 04/05/2025 Date of Discharge: 04/10/2025 Where I Will be Going after Discharge: Home with Self Care My Condition at Discharge: Stable My Doctors and Medical Team: My Main Hospital Doctor: Joo Bales My Primary Care Physician Jose Burrell Jr. (Inactive) The Reason I was in the Hospital/Main Diagnosis: Paraesophageal hernia repair Summary of What Happened When in the Hospital: You presented to the hospital on 04/05/2025 for planned surgical repair of your paraesophageal hernia with Dr. Bales The surgery was without complication and you tolerated the procedure well. Post-operatively you recovered in the PACU. Went into AF RVR in PACU for which cardiology was consulted.Post op course as follows: 04/06- Post op day 1. NPO- nothing by mouth. Kaye removed. Cardiology recommending formal echo, metoprolol. Converted back to normal rhythm. UGI with gaseous distention, post op ileus, no leak. 04/07- Continue NPO. NGT (nasogastric tube) placed. 04/08- Outstanding for echo. Erythromycin added. Continue NPO, NGT. Started on IV antibiotics for presumed aspiration pneumonia. 04/09- NGT removed. Started on clear liquids. 04/10- Advanced to full liquids. Home oxygen study ordered - you require 2L of oxygen with exertion. Zosyn switched to PO Augmentin BID x7 days. Important Discharge Recommendations: - Continue full liquids only until you follow up in clinic. - Complete entire course of antibiotics as prescribed for 7 days total. - Cardiology recommendations: -Resume home farxiga and lasix for HFpEF management on discharge - In the setting of post op afib with a SXRVB3LIYU score of 4, we would recommend anticoagulated with eliquis on discharge (5 mg BID) or set up with coumadin clinic close to her home in [place] - discontinue metoprolol on discharge - Discharge with a Ziopatch - mailed to home - Outpatient follow up with her boat tester Dr. Miriam Saenz for further management of atrial fibrillation in 2-4 weeks. DO NOT START ANTICOAGULATION UNTIL 2 WEEKS OUT FROM SURGERY - Follow up closely with your primary care provider for close monitoring of your respiratory status. Operations Performed While in the Hospital: See above Important Tests/Procedures: IV access Intubation for surgery Anesthesia administration Upper GI study EKG CXR, KUBs CT AP, CT chest Instructions for My Care at Home or Healthcare Facility These instructions explain what you or your md do resident urgent care need to do to continue your care at home or at another healthcare facility Please go over these instructions with your nurse and md do resident urgent care. If you are not sure about something, please ask. Symptoms to Look Out for at Home: - Changes at the incision or drain: swelling, increase in redness, new drainage of pus or liquid, pain - Changes in your general condition: fever, chills, night sweats, dizziness, nausea, or vomiting causing inability to take medications or stay hydrated. - Changes in your dietary habits: loss of appetite, inability to eat or swallow - Changes in bowel habits: constipation, diarrhea, bloody stool, black or tarry stool - Changes in urination: bloody urine, inability to urinate, painful urination - Please call your surgeon's office and ask to speak with a nurse if you develop any of these symptoms. - If you experience chest pain/pressure or shortness of breath, call 911 or go to the nearest emergency department. Pain Management: You may take Tylenol (acetaminophen) or ibuprofen every 6-8 hours as needed for pain. You may take them together or rotate them every 3 hours. 5mg oxycodone every 6 hours as needed for pain. Please do not drive or operate heavy machinery while taking narcotic pain medications. While you are taking a narcotic pain medication, please make sure to take a stool softener such as colace to prevent constipation. Narcotic pain medications should not be taken on an empty stomach as they can cause nausea and vomiting. Disclaimer for pain medication prescriptions following your surgery: Please be aware that in accordance with [place] law we can only provide you with a limited supply of pain medication (narcotics). If you need more pain medications than what is prescribed you need to beevaluated by your surgeon/physician to see if your pain is reasonable for your condition and that your medical condition is not worsening. If you have a chronic pain physician you MUST go back to that physician for any refills. If you pain is taking longer than MOST to control and your condition isstable, you will be referred to a pain management physician. You can call [phone] to get an appointment with a painter and body work. Wound Care/Surgical Site Care: -Keep the surgical site clean and dry. -You may shower tomorrow. Use soap and warm water. Allow the water to run over the incisions. Gently pat the area dry. Do not rub the area. -Do not submerge the surgical site in water for 1-2 weeks. (No bathtubs or swimming) -Your incision is closed with sterile medical glue that will fall off on its own. -Watch for any signs of excessive bleeding or infection including increased swelling, pain, redness, thick drainage, or fever. If you notice any of these symptoms, please call and speak with a doctoror nurse. Your wound will examined at your follow up appointment. Supplies or Equipment I Need: None Diet (What I Can Eat): Full Liquid Diet: Includes clear liquids plus cream soup, puddings, and milk Slowly add soft foods into your diet (mac and cheese, rice, etc). Avoid meat, bread, and carbonatedbeverages. Activity and Exercise: (When I can drive, return to work) You are encourage to resume your usual activities. Walking is encouraged and it is OK to use stairs. Avoid strenuous activity or exercise including heavy lifting, pushing or pulling. Do not lift anything heavier than 10 lbs (a milk jug) for 4-6 weeks after surgery. Do not drive until you have full range of motion and you are no longer taking prescription pain medications. Continue your incentive spirometry and deep breathing/coughing exercise at home for 2 weeks. Follow up appointment: - We do our best to arrange a follow up for you prior to your hospital discharge. - You may be given a follow up with your surgeon OR the team's clinic nurse practitioner, Sarai Barron CNP. - To confirm or re-schedule the appointment we schedule for you, call [phone]. Test Results Not Available at this Time: Pathology: n/a Electronically Signed: Lou Richardson APRN.ARTIFICIAL FOLIAGE ARRANGER documented in this encounter Medications at Time of Discharge MedicationSigDispense QuantityRefillsLast FilledStart DateEnd Date amitriptyline (ELAVIL) 50 mg tablet Take 50 mg by mouth daily at bedtime.11/19/2023 furosemide (LASIX) 20 mg tablet Take 20 mg by mouth two times a day. ALBUTEROL INHALATION Inhale as instructed. qeakzndldx-gmozmunj-kxwpyuhmoz (BREZTRI AEROSPHERE) 160-9-4.8 mcg/actuation HFA aerosol inhaler Inhale 2 puffs as instructed two times a day. dapagliflozin propanediol (FARXIGA) 10 mg tablet Take by mouth daily with breakfast. ARIPiprazole (ABILIFY) 30 mg tablet Take 30 mg by mouth once daily. FLUoxetine (PROZAC) 20 mg capsule Take 20 mg by mouth once daily. levothyroxine 50 mcg cap Take 50 mcg by mouth daily before breakfast. lisinopril (ZESTRIL) 40 mg tablet Take 40 mg by mouth once daily. OMEPRAZOLE, BULK, MISC POTASSIUM CHLORIDE 2.5 MEQ TAB ropinirole HCl (ROPINIROLE PO) Take by mouth. amoxicillin-clavulanate potassium (AUGMENTIN) 875-125 mg per tablet Take 1 tablet by mouth every 12 hours for 13 doses. 13 tablet / acetaminophen (TYLENOL EXTRA STRENGTH) 500 mg tablet Take 1-2 tablets by mouth every 6 hours as needed for pain for up to 5 days. metoclopramide HCl (REGLAN) 5 mg tablet Take 1 tablet by mouth three times a day for 5 days. 15 tablet oxyCODONE IR (ROXICODONE) 5 mg immediate release tablet Indications:Post-op painTake 1 tablet by mouth every 6 hours as needed for pain for up to 5 days. 12 tablet documented as of this encounter Progress Notes * Roxy Hanna OTA/[place] - 04/10/2025 11:58 AM EST Occupational Therapy Treatment Summary SERVICE DATE: 04/10/2025 SERVICE TIME: 1002 to 1054 ROOM: [place] [address] OT 6 Clicks Score: 22 DISCHARGE RECOMMENDATIONS Home Anticipated Discharge Needs: Physical Assist at Home Physical Assist at Home for: Cleaning, Laundry, Meals, Stairs, Self Care, Transportation, Shopping Recommended Discharge Equipment: ADL Kit ASSESSMENT Response to Therapy Interventions: Good Participation in Activities, Needs Frequent Redirection or Reinstruction, Pain PRECAUTIONS Abdominal, Lines/Tubes/Drains CURRENT HOSPITAL COURSE POD1 s/p Lap PEH with mesh Relevant Past Medical History: CKD, CHF, COPD, CONNIE, mandible sx, DM 2 HOME LIVING Patient Lives With: Self/Alone Assistance Available: Part-Time (family/friends) Entry To Home: No Stairs Tub/Shower Type: walk in with grab bars and seat Laundry: pt was completing Equipment Owned: Cane PRIOR FUNCTIONAL LEVEL Within Functional Limits, Required Assistance Assistance Required With: Cleaning IND gait and ADL, + drives Baseline Cognition: Oriented to self, Oriented to place, Oriented to time, Oriented to situation SUBJECTIVE I'll have help at home. COGNITION Responsiveness: Alert, Awake Follows Commands: 3-step Commands Cog 6 Start of Session Total Points (Max Score = 24): 24 (04/10/25) Cog 6 End of Session Total Points (Max Score = 24): 24 (04/10/25) 4AT Score: 0 (04/09/25) Delirium Positive/Negative: Negative (04/09/25) THERAPY DIAGNOSIS Reduced mobility-other, Decreased activities of daily living (ADL) TREATMENT INTERVENTIONS Self Jail Management ([address]256), Therapeutic Activity (72698) Timed Code Treatment (minutes): 57 Skilled Treatment Time (minutes): 57 TRAINING & EDUCATION PROVIDED Activity Adaptation/Compensatory Strategies, Adaptive Equipment/DME, Assistive Device Use, Bed Mobility, Benefits of In-Hospital Mobility, Discharge Planning, Disease Specific Education, Energy Conservation, Functional Mobility Involving ADLs, Grooming Tasks, Lower Extremity Dressing, Lower Extremity Bathing, IADLs/Home Management, Positioning, Precautions/Restrictions, Role of Occupational Therapy, Safety/Judgment, Toileting , Transfer - Bed to Chair, Transfer - Sit to Stand, Transfer - Toilet/Commode, Treatment Protocol, Upper Extremity Dressing THERAPEUTIC SKILLS USED Activity Dosing, Bilateral UE Integration, Cues for Sequencing/Proper Technique for Activity, CuingTactile, Cuing Verbal, Cuing Visual, Physical Assist, Repetitive Task Learning, Task Analysis Learning, Teach-Back for Education FUNCTIONAL STATUS Activities of Daily Living Assist Level Additional Information Feeding Independent Grooming Stand By Assistance, Supervision (In stance with cues for safety awareness.) Bathing Upper Body Set Up Bathing Lower Body Minimal Assistance (Rec use of AE and cues for compensatory technique) Dressing Upper Body Set Up Dressing Lower Body Minimal Assistance, Contact Guard Assistance (With AE and cues.) Toileting Independent Mobility Assist Level Additional Information Bed Mobility Rolling: Stand By Assistance Supine To Sit: Stand By Assistance (Cues for log roll technique.) Sit To Supine: Stand By Assistance (Post cues for adherence of precautions.) Sit to Stand Stand By Assistance, Supervision Stand to Sit Stand By Assistance, Supervision Bed to Chair Stand By Assistance Bed To Chair Transfer Type: Stepping Toilet/Commode Stand By Assistance Shower Functional Mobility Stand By Assistance Functional Mobility Device: None GOALS Patient will demonstrate progress with self-care, cognitive and/or coping needs identified to allowsafe discharge to home with available support and/or physical assistance. Rehab Potential: Good Progress Toward Goals: Progressing as expected ACUTE CARE TREATMENT PLAN OT Frequency: Per Next Session Date Treatment Interventions: Education, Self Care/Home Management, Energy Conservation Training, Functional Mobility Training Plan for Next Visit: Bathing Training, Dressing Training SIGNATURE: DANNY Gan PATIENT NAME: Mary Vick DATE: April 10, 2025 TIME: 11:58 AM Cosigned by Laura Menjivar OTR/Esperanza at 04/10/2025 12:54 PM EST Associated attestation - Laura Menjivar OTR/Esperanza - 04/10/2025 12:54 PM EST I reviewed and agree with the documentation corresponding to this therapy visit. SIGNATURE: YOLANDA Talbot DATE: April 10, 2025 TIME: 12:54 PM * Bri Moya CRT - 04/10/2025 9:38 AM ESTSummary: Home oxygen qualificationt test 04/10/25 0937 Procedures Procedure Type A-M Home Oxygen Qualification Test Home Oxygen Qualification Test $Home Oxygen Qualification Test $Performed Patient Currently On Home Oxygen No Baseline SpO2 at Rest on Room Air 93 SpO2 < or = to 88% at Rest on RA No Patient Ambulated on Room Air? Yes SpO2 < or = to 88% when Ambulating on Room Air Yes, oxygen initiated Lowest SpO2 while Ambulating on Room Air 86 Initial O2 Device for Ambulation NC Liters 1 SPO2 Maintained > or = to 92% on Initial O2 for Ambulation No, Test Continued Device for first O2 Adjustment NC Liters 2 SPO2 Maintained > or = to 92% on Adjusted O2 for Ambulation Yes Final SpO2 on O2 93 % Based on Medicare Guidelines Patient Qualifies For portable oxygen while ambulating Total Time Spent for Home Oxygen Qualification Test 15 minutes RESPIRATORY THERAPY PROGRESS NOTE SERVICE DATE: 04/10/2025 SERVICE TIME: 936 SIGNATURE: Bri Moya CRT PATIENT NAME: Mary Vick DATE: April 10, 2025 TIME: 9:38 AM PAGER/CONTACT #: * Maricruz Briones MD - 04/10/2025 6:10 AM EST Images from the original note were not included. GENERAL SURGERY PROGRESS NOTE PATIENT NAME: Mary Vick AGE: [age] year old : 1955 SEX: female S/p Lap PEH with mesh on 04/05 SUBJECTIVE and INTERVAL CHANGES: NAEON Tolerating CLD well NGT removed, denies nausea OBJECTIVE: VITAL SIGNS: BP 149/73 Pulse (!) 51 Temp 36.3 ??C (97.4 ??F) (Oral) Resp 16 Ht 154.9 cm (5' 1 ) Wt 81.7 kg (180 lb 1.9 oz) SpO2 98% BMI 34.03 kg/m?? Body mass index is 34.03 kg/m??. PHYSICAL EXAM: GENERAL: Alert and oriented, no acute distress, cooperative. LUNGS: Non-labored breathing on 2 LNC ABDOMEN: soft, non-tender, non-distended. WOUND: clean, dry and intact. LABS: CBC, Coags, BMP, Mg, Phos Recent Labs 04/09/25 1800 04/09/25 0842 04/08/25 1943 04/08/25 0641 WBC 14.56* 15.56* 19.76* 17.37* HB 10.0* 10.2* 10.7* 9.4* HCT 31.3* 32.0* 33.9* 29.5* PLT 302 272 307 250 NA -- 143 141 140 K -- 4.0 3.6* 3.5* CHLOR -- 105 102 101 CO2 -- 31* 28 24 BUN -- 7 8 8 CREAT -- 0.69 0.61 0.55* GLUC -- 99 88 67* CA -- 7.8* 8.0* 7.4* MG 2.1 2.2 2.3 2.0 P 1.7* 1.8* 2.7 1.3* Liver Function, Amylase, & Lipase Recent Labs 04/08/25 0641 04/07/25 0714 TPROT 4.8* 6.5 ALB 2.7* 3.7* ALT 22 38 AST 21 36* ALKPHOS 62 78 TBILI 0.4 0.6 I/O PAST 24HRS: Intake/Output Summary (Last 24 hours) at 04/10/2025 0610 Last data filed at 04/10/2025 0128 Gross per 24 hour Intake -- Output 902 ml Net -902 ml LINE, DRAINS & AIRWAY: Lines, Drains, and Airways Line Duration Peripheral 04/06/25 2351 Left Wrist 22 Gauge 3 days Peripheral 04/07/25 1226 [facility] Midline Right Arm #4 Israeli 2 days SURGERY/PROCEDURE: Procedure(s) and Anesthesia Type: * LAPAROSCOPIC RPR PARAESOPHAGEAL HERNIA W/O FUNDOPLASTY W/ MESH - General ASSESSMENT & PLAN: Mary Vick is a 69 year old female with PMHx COPD(no home O2, poor diffusion), CHF (LA dilation), anxiety/depression, CKD, hysterectomy who is now s/p Lap PEH with mesh. Had an episode of Afibwith RVR in PACU, resolved since then. Recovering well. CTCAP shows interstitial lung disease and ileus. Will trend WBC for evaluation of pneumonia. She likely has a component of aspiration pneumonitis. PLAN- Neuro: Continue current multimodal pain regimen. Resp: Wean O2 as able. Incentive spirometer 10 breaths/hr while awake. Home inhalers Card: Appreciate recs from cardiology - discharge recs. On PO metop (held overnight for bradycardia). Echo wnl showing dilated LA FEN/GI: FLD, mIVF. Check BMP daily and daily electrolytes repletion. Erythromycin switched to reglan for gastroparesis until ROBF : Monitor UOP. Heme: Monitor daily CBC. ID: switch zosyn to augmentin for total 7 days Ppy: Encourage mobilization, ambulation, and out of bed. SCD while in bed or sitting in a chair. Lovenox. Note: Evaluation OT/PT. Dispo: Continue care on RNF. Plans discussed with staff Maricruz Briones MD General Surgery Resident Debbie service (pager [phone]) Hernia Teams: Debbie (Cresencio Desouza Tastaldi): [phone] Chata (Renny Hickey Petro): [phone] After 6PM and on the weekends: [phone] The following problems are present on admission at this time: Heart failure Chronic pulmonary disease Hypertension Hypothyroidism Obesity Pulmonary circulation disease Continue current outpatient treatment plan and current medications for these conditions, except where otherwise noted. * Laura Menjivar, OTR/L - 04/09/2025 3:01 PM EST Occupational Therapy Evaluation Summary SERVICE DATE: 04/09/2025 SERVICE TIME: 1428 to 1451 ROOM: [id number] OT 6 Clicks Score: 20 DISCHARGE RECOMMENDATIONS Home Anticipated Discharge Needs: Physical Assist at Home Physical Assist at Home for: Cleaning, Laundry, Meals, Stairs, Self Care, Transportation, Shopping ASSESSMENT Response to Therapy Interventions: Good Participation in Activities PRECAUTIONS Abdominal, Lines/Tubes/Drains CURRENT HOSPITAL COURSE POD1 s/p Lap PEH with mesh Relevant Past Medical History: CKD, CHF, COPD, CONNIE, mandible sx, DM 2 HOME LIVING Patient Lives With: Self/Alone Assistance Available: Part-Time (family/friends) Entry To Home: No Stairs Tub/Shower Type: walk in with grab bars and seat Laundry: pt was completing Equipment Owned: Cane PRIOR FUNCTIONAL LEVEL Within Functional Limits, Required Assistance Assistance Required With: Cleaning IND gait and ADL, + drives Baseline Cognition: Oriented to self, Oriented to place, Oriented to time, Oriented to situation SUBJECTIVE agreeable to session COGNITION Responsiveness: Alert, Awake Follows Commands: 3-step Commands Cog 6 Start of Session Total Points (Max Score = 24): 24 (04/09/25) Cog 6 End of Session Total Points (Max Score = 24): 24 (04/09/25) 4AT Score: 0 (04/09/25) Delirium Positive/Negative: Negative (04/09/25) THERAPY DIAGNOSIS Reduced mobility-other, Decreased activities of daily living (ADL) TREATMENT INTERVENTIONS Evaluation, Therapeutic Activity (47451) Timed Code Treatment (minutes): 8 Skilled Treatment Time (minutes): 23 TRAINING & EDUCATION PROVIDED Activity Adaptation/Compensatory Strategies, Adaptive Equipment/DME, Assistive Device Use, Bed Mobility, Benefits of In-Hospital Mobility, Discharge Planning, Energy Conservation, Expected FunctionalLevel, Functional Mobility Involving ADLs, Positioning, Precautions/Restrictions, Role of Occupational Therapy, Standing Balance to Improve [place] with ADLs/Self-Care, Transfer - Sit to Stand, Transfer - Toilet/Commode, Treatment Protocol THERAPEUTIC SKILLS USED Activity Dosing, Assessment of Tolerance Including Vitals Response to Activity, Cues for Sequencing/Proper Technique for Activity, Cuing Tactile, Cuing Verbal, Cuing Visual, Management of Critical Lines, Tubes and/or Drains, Movement Facilitation, Physical Assist, Therapeutic Use of Self, Teach-Back for Education FUNCTIONAL STATUS Activities of Daily Living Assist Level Additional Information Feeding Independent Grooming Stand By Assistance (standing) Bathing Upper Body Set Up Bathing Lower Body Moderate Assistance Dressing Upper Body Set Up Dressing Lower Body Moderate Assistance Toileting Independent Mobility Assist Level Additional Information Bed Mobility Supine To Sit: Stand By Assistance Sit To Supine: Minimal Assistance Sit to Stand Stand By Assistance Stand to Sit Stand By Assistance Bed to Chair Toilet/Commode Stand By Assistance Shower Functional Mobility Stand By Assistance Functional Mobility Device: IV Pole GOALS Patient will demonstrate progress with self-care, cognitive and/or coping needs identified to allowsafe discharge to home with available support and/or physical assistance. Rehab Potential: Good Good Rehab Potential Due To: Current objective clinical presentation, Good support system/ coping skills, Good motivation ACUTE CARE TREATMENT PLAN OT Frequency: Per Next Session Date Treatment Interventions: Education, Self Care/Home Management, Energy Conservation Training, Functional Mobility Training Plan for Next Visit: Bathing Training, Dressing Training SIGNATURE: YOLANDA Talbot PATIENT NAME: Mary Vick DATE: April 09, 2025 TIME: 3:02 PM * Rigoberto Teran, PT - 04/09/2025 1:54 PM EST Physical Therapy Treatment Summary SERVICE DATE: 04/09/2025 SERVICE TIME: 1342 to 1350 ROOM: [place] [id number] PT 6 Clicks Score: 22 DISCHARGE RECOMMENDATIONS Home Anticipated Discharge Needs: Physical Assist at Home Physical Assist at Home for: Cleaning, Laundry, Meals, Stairs, Self Care, Transportation, Shopping ASSESSMENT Did not mobiize OOB d/t pain. Pt reported being OOB multipel times to bathroom today with nursing. CURRENT HOSPITAL COURSE POD1 s/p Lap PEH with mesh Relevant Past Medical History: CKD, CHF, COPD, CONNIE, mandible sx, DM 2 HOME LIVING Patient Lives With: Self/Alone Assistance Available: 24-Hour (family) PRIOR FUNCTIONAL LEVEL Within Functional Limits IND gait and ADL, + drives SUBJECTIVE Agreeable to PT THERAPY DIAGNOSIS Reduced mobility-other, Decreased activities of daily living (ADL), Muscle Weakness (generalized), Abnormalities of gait and mobility-other, Unsteadiness on feet TREATMENT INTERVENTIONS Therapeutic Exercise (02122) Timed Code Treatment (minutes): 8 Skilled Treatment Time (minutes): 8 TRAINING & EDUCATION PROVIDED Anatomy and Impact on Deficits, Assistive Device Use, Bed Mobility, Benefits of In-Hospital Mobility, Car Transfers, Curb Step Navigation, Discharge Planning, Disease Specific Education, Edema Management, Energy Conservation, Equipment, Exercise Program, Expected Functional Level, Falls Prevention,Gait Pattern, Reduction of Deviations, Handout Issued, Home Safety, Home Set-up/Modifications, Lymphedema Education on Techniques, Supplies & Continued Treatment After Discharge, Modalities, Orthotic Use & Skin Preservation, Pain Neuroscience, Patient Exercise/Therapy Program Support Needs,Positioning, Precautions/Restrictions, Pre-gait Activities, Prosthetic Use & Skin Preservation,Role of Physical Therapy, Sitting Balance, Skin Care and Infection Prevention Guidelines, Stair Navigation, Standing Balance, Transfers, Treatment Protocol, Wheelchair Use THERAPEUTIC SKILLS USED Activity Dosing, Cues for Sequencing/Proper Technique for Activity, Cuing Tactile, Cuing Verbal, Cuing Visual, Physical Assist, Teach-Back for Education FUNCTIONAL STATUS Bed Mobility Rolling: Stand By Assistance Supine To Sit: Stand By Assistance Sit to Supine: Stand By Assistance Scooting: Stand By Assistance Transfers Sit To Stand: Stand By Assistance Stand To Sit: Stand By Assistance Bed to Chair Stand By Assistance Bed To Chair Transfer Type: Stepping Gait Stand By Assistance Gait Device: IV Pole Gait Distance (feet): 60 Stairs GOALS Patient will demonstrate understanding of importance of mobility during hospital stay and resolve all functional needs identified., Patient will demonstrate progress with functional mobility to allowsafe discharge to home with available support and/or physical assistance., Patient will demonstrateprogress to optimize functional mobility, maximize activity tolerance and endurance to maximize function upon discharge. Rehab Potential: Good ACUTE CARE TREATMENT PLAN PT Frequency: Per Next Session Date Treatment Interventions: Education, Self Care / Home Management, Energy Conservation Training, Joint Mobility, Strengthening, Functional Mobility Training, Balance Training, Neuromuscular Re-education, Wound Care Management, Modalities, Edema Management, Pain Management SIGNATURE: Rigoberto Teran, PT PATIENT NAME: Mary Vick DATE: April 09, 2025 TIME: 1:55 PM * Maricruz Briones MD - 04/09/2025 6:17 AM EST Images from the original note were not included. GENERAL SURGERY PROGRESS NOTE PATIENT NAME: Mary Vick AGE: [age] year old : 1955 SEX: female S/p Lap PEH with mesh on 04/05 SUBJECTIVE and INTERVAL CHANGES: BRIA Had BM x4 yesterday Passing gas, not feeling bloated States she is possibly drinking more than she is realizing due to throat dryness OBJECTIVE: VITAL SIGNS: BP 149/64 Pulse 66 Temp 36.2 ??C (97.2 ??F) (Oral) Resp 18 Ht 154.9 cm (5' 1 ) Wt 81.7 kg(180 lb 1.9 oz) SpO2 97% BMI 34.03 kg/m?? Body mass index is 34.03 kg/m??. PHYSICAL EXAM: GENERAL: Alert and oriented, no acute distress, cooperative. LUNGS: Non-labored breathing on 2 LNC ABDOMEN: soft, non-tender, non-distended. WOUND: clean, dry and intact. LABS: CBC, Coags, BMP, Mg, Phos Recent Labs 04/08/25 19404/08/25 0641 04/07/25 0714 WBC 19.76* 17.37* 19.84* HB 10.7* 9.4* 11.2* HCT 33.9* 29.5* 35.2* PLT 307 250 298 NA 141 140 136 K 3.6* 3.5* 3.9 CHLOR 102 101 100 CO2 28 24 23 BUN 8 8 15 CREAT 0.61 0.55* 0.72 GLUC 88 67* 106* CA 8.0* 7.4* 7.8* MG 2.3 2.0 2.6* P 2.7 1.3* 2.2* Liver Function, Amylase, & Lipase Recent Labs 04/08/25 0641 04/07/25 0714 04/06/25 0714 TPROT 4.8* 6.5 6.2* ALB 2.7* 3.7* 3.7* ALT 22 38 43* AST 21 36* 59* ALKPHOS 62 78 60 TBILI 0.4 0.6 0.5 I/O PAST 24HRS: Intake/Output Summary (Last 24 hours) at 04/09/2025 0617 Last data filed at 04/09/2025 0452 Gross per 24 hour Intake 30 ml Output 3001 ml Net -2971 ml LINE, DRAINS & AIRWAY: Lines, Drains, and Airways Line Duration Peripheral 04/06/25 2351 Left Wrist 22 Gauge 2 days Peripheral 04/07/25 1226 [facility] Midline Right Arm #4 Israeli 1 day Drain Duration GI/ Feeding 04/07/25 [facility] Gastric Right Naris 2 days SURGERY/PROCEDURE: Procedure(s) and Anesthesia Type: * LAPAROSCOPIC RPR PARAESOPHAGEAL HERNIA W/O FUNDOPLASTY W/ MESH - General ASSESSMENT & PLAN: Mary Vick is a 69 year old female with PMHx COPD(no home O2, poor diffusion), CHF (LA dilation), anxiety/depression, CKD, hysterectomy who is now s/p Lap PEH with mesh. Had an episode of Afibwith RVR in PACU, resolved since then. Recovering well. CTCAP shows interstitial lung disease and ileus. Will trend WBC for evaluation of pneumonia. She likely has a component of aspiration pneumonitis. PLAN- Neuro: Continue current multimodal pain regimen. Resp: O2 per protocol. Incentive spirometer 10 breaths/hr while awake. Home inhalers Card: Appreciate recs from cardiology. ON PO metop. Echo wnl showing dilated LA FEN/GI: NPO, dc NGT, mIVF. Check BMP daily and daily electrolytes repletion. Erythromycin added forgastroparesis : Monitor UOP. Heme: Monitor daily CBC. ID: continue zosyn Ppy: Encourage mobilization, ambulation, and out of bed. SCD while in bed or sitting in a chair. Lovenox. Note: Evaluation OT/PT. Dispo: Continue care on RNF. Plans discussed with staff Maricruz Briones MD General Surgery Resident Debbie service (pager [phone]) Hernia Teams: Debbie (Cresencio Deosuza Tastaldi): [phone] [place] (Renny Hickey, Yamilet): [phone] After 6PM and on the weekends: [phone] The following problems are present on admission at this time: Heart failure Chronic pulmonary disease Hypertension Hypothyroidism Obesity Pulmonary circulation disease Continue current outpatient treatment plan and current medications for these conditions, except where otherwise noted. * Russell Brady RN - 04/08/2025 3:29 PM EST CARE MANAGEMENT: ASSESSMENT AND DISCHARGE PLAN SERVICE DATE: April 08, 2025 SERVICE TIME: 3:30 PM PCP: Jose Burrell Jr. (Inactive) Primary Contact: Extended Emergency Contact Information Primary Emergency Contact: rani gonzalezfer Relation: Daughter Admission Status: Inpatient Insurance Provider: [employer] HMO Chart reviewed and spoke to primary team about this patient. Patient skilled for home at this time.Likely no needs needed for this patient. Should needs arise for this patient please contact case management 24 hours prior to discharge. Patient screened out at this time. SIGNATURE: Russell Brady RN PATIENT NAME: Mary Vick DATE: April 08, 2025 TIME: 3:29 PM * Russell Brady RN - 04/08/2025 3:28 PM EST CARE MANAGEMENT PROGRESS NOTE SERVICE DATE: 04/08/2025 SERVICE TIME: 3:28 PM LOS: 3 days Patient skilled for home at this time. Likely no needs needed for this patient. Should needs arise for this patient please contact case management 24 hours prior to discharge. SIGNATURE: Russell Brady RN PATIENT NAME: Mary Vick DATE: April 08, 2025 TIME: 3:28 PM * Rigoberto Teran PT - 04/08/2025 3:15 PM EST Physical Therapy Evaluation Summary SERVICE DATE: 04/08/2025 SERVICE TIME: 1356 to 1420 ROOM: [place] [address] PT 6 Clicks Score: 22 DISCHARGE RECOMMENDATIONS Home Anticipated Discharge Needs: Physical Assist at Home Physical Assist at Home for: Cleaning, Laundry, Meals, Stairs, Self Care, Transportation, Shopping ASSESSMENT Response to Therapy Interventions: Good Participation in Activities, Low Activity Tolerance Pt demo steady gait in hallway with IV pole assist. Capacity for activity is low at this time. Willhave plenty of assist from family upon DC per pt. PRECAUTIONS Abdominal CURRENT HOSPITAL COURSE POD1 s/p Lap PEH with mesh Relevant Past Medical History: CKD, CHF, COPD, CONNIE, mandible sx, DM 2 HOME LIVING Patient Lives With: Self/Alone Assistance Available: 24-Hour (family) PRIOR FUNCTIONAL LEVEL Within Functional Limits IND gait and ADL, + drives SUBJECTIVE Agreeable to PT THERAPY DIAGNOSIS Reduced mobility-other, Decreased activities of daily living (ADL), Muscle Weakness (generalized), Abnormalities of gait and mobility-other, Unsteadiness on feet TREATMENT INTERVENTIONS Evaluation, Gait Training (92670) Timed Code Treatment (minutes): 9 Skilled Treatment Time (minutes): 24 TRAINING & EDUCATION PROVIDED Anatomy and Impact on Deficits, Assistive Device Use, Bed Mobility, Benefits of In-Hospital Mobility, Car Transfers, Curb Step Navigation, Discharge Planning, Disease Specific Education, Edema Management, Energy Conservation, Equipment, Exercise Program, Expected Functional Level, Falls Prevention,Gait Pattern, Reduction of Deviations, Handout Issued, Home Safety, Home Set-up/Modifications, Lymphedema Education on Techniques, Supplies & Continued Treatment After Discharge, Modalities, Orthotic Use & Skin Preservation, Pain Neuroscience, Patient Exercise/Therapy Program Support Needs,Positioning, Precautions/Restrictions, Pre-gait Activities, Prosthetic Use & Skin Preservation,Role of Physical Therapy, Sitting Balance, Skin Care and Infection Prevention Guidelines, Stair Navigation, Standing Balance, Transfers, Treatment Protocol, Wheelchair Use THERAPEUTIC SKILLS USED Activity Dosing, Cues for Sequencing/Proper Technique for Activity, Cuing Tactile, Cuing Verbal, Cuing Visual, Physical Assist, Teach-Back for Education FUNCTIONAL STATUS Bed Mobility Rolling: Stand By Assistance Supine To Sit: Stand By Assistance Sit to Supine: Stand By Assistance Scooting: Stand By Assistance Transfers Sit To Stand: Stand By Assistance Stand To Sit: Stand By Assistance Bed to Chair Stand By Assistance Bed To Chair Transfer Type: Stepping Gait Stand By Assistance Gait Device: IV Pole General Deviations/Observations: Arm swing decreased, Antalgic gait, Stacey decreased, Non-functional gait speed Gait Distance (feet): 60 Stairs GOALS Patient will demonstrate understanding of importance of mobility during hospital stay and resolve all functional needs identified., Patient will demonstrate progress with functional mobility to allowsafe discharge to home with available support and/or physical assistance., Patient will demonstrateprogress to optimize functional mobility, maximize activity tolerance and endurance to maximize function upon discharge. Rehab Potential: Good Good Rehab Potential Due To: Current objective clinical presentation, Good overall health status, Good support system/ coping skills, Good motivation ACUTE CARE TREATMENT PLAN PT Frequency: Per Next Session Date Treatment Interventions: Education, Self Care / Home Management, Energy Conservation Training, Joint Mobility, Strengthening, Functional Mobility Training, Balance Training, Neuromuscular Re-education, Wound Care Management, Modalities, Edema Management, Pain Management SIGNATURE: Rigoberto Teran, PT PATIENT NAME: Mary Vick DATE: April 08, 2025 TIME: 3:16 PM * Dominique Ibarra MD - 04/08/2025 12:04 PM EST Documentation Query Please clarify the Stage of Chronic Kidney Disease (CKD) CKD Stage 1 (GFR >90) This document will become part of the patient's medical record. * Dominique Ibarra MD - 04/08/2025 7:44 AM EST Images from the original note were not included. GENERAL SURGERY PROGRESS NOTE PATIENT NAME: Mary Vick AGE: [age] year old : 1955 SEX: female POD1 s/p Lap PEH with mesh SUBJECTIVE and INTERVAL CHANGES: Appears uncomfortable this AM Had a BM but still burping CXR showed dilated stomach OBJECTIVE: VITAL SIGNS: BP 172/68 Pulse 81 Temp 36.5 ??C (97.7 ??F) (Oral) Resp 16 Ht 154.9 cm (5' 1 ) Wt 81.7 kg(180 lb 1.9 oz) SpO2 97% BMI 34.03 kg/m?? Body mass index is 34.03 kg/m??. PHYSICAL EXAM: GENERAL: Alert and oriented, no acute distress, cooperative. LUNGS: Non-labored breathing on 2 LNC ABDOMEN: soft, non-tender, non-distended. WOUND: clean, dry and intact. LABS: CBC, Coags, BMP, Mg, Phos Recent Labs 04/07/25 0714 04/06/25 0714 04/05/25 1815 WBC 19.84* 13.75* 15.87* HB 11.2* 10.8* 10.3* HCT 35.2* 33.8* 31.5* PLT 298 282 270 NA 136 139 139 K 3.9 4.1 5.1 CHLOR 100 103 108* CO2 23 23 21* BUN 15 12 13 CREAT 0.72 0.66 0.66 GLUC 106* 96 118* CA 7.8* 8.0* 7.8* MG 2.6* 2.3 1.8 P 2.2* 1.7* 2.4* Liver Function, Amylase, & Lipase Recent Labs 04/07/25 0714 04/06/25 0714 TPROT 6.5 6.2* ALB 3.7* 3.7* ALT 38 43* AST 36* 59* ALKPHOS 78 60 TBILI 0.6 0.5 I/O PAST 24HRS: Intake/Output Summary (Last 24 hours) at 04/08/2025 0745 Last data filed at 04/08/2025 0725 Gross per 24 hour Intake 0 ml Output 3253 ml Net -3253 ml LINE, DRAINS & AIRWAY: Lines, Drains, and Airways Line Duration Peripheral 04/06/25 2351 Left Wrist 22 Gauge 1 day Peripheral 04/07/25 1226 [facility] Midline Right Arm #4 Israeli <1 day Drain Duration GI/ Feeding 04/07/25 [facility] Gastric Right Naris 1 day SURGERY/PROCEDURE: Procedure(s) and Anesthesia Type: * LAPAROSCOPIC RPR PARAESOPHAGEAL HERNIA W/O FUNDOPLASTY W/ MESH - General ASSESSMENT & PLAN: Mary Vick is a 69 year old female with PMHx COPD(no home O2, poor diffusion), CHF (LA dilation), anxiety/depression, CKD, hysterectomy who is now s/p Lap PEH with mesh. Had an episode of Afibwith RVR in PACU, resolved since then. Recovering well. CTCAP shows interstitial lung disease and ileus. Will trend WBC for evaluation of pneumonia. She likely has a component of aspiration pneumonitis. PLAN- Neuro: Continue current multimodal pain regimen. Resp: O2 per protocol. Incentive spirometer 10 breaths/hr while awake. Home inhalers Card: Appreciate recs from cardiology. ON PO metop. Echo pending FEN/GI: NPO, NGT, MIVF. Check BMP daily and daily electrolytes repletion. Erythromycin added for gastroparesis : Monitor UOP. Heme: Monitor daily CBC. ID: No need for antibiotics. Ppy: Encourage mobilization, ambulation, and out of bed. SCD while in bed or sitting in a chair. Lovenox. Note: Evaluation OT/PT. Dispo: Continue care on RNF. Dominique Ibarra MD General Surgery Resident Debbie service (pager [phone]) Hernia Teams: Debbie (Cresencio Desouza Tastaldi): [phone] [place] (Renny iHckey, Yamilet): [phone] After 6PM and on the weekends: [phone] The following problems are present on admission at this time: Heart failure Chronic pulmonary disease Hypertension Hypothyroidism Obesity Pulmonary circulation disease Continue current outpatient treatment plan and current medications for these conditions, except where otherwise noted. * Dominique Ibarra MD - 04/07/2025 10:41 AM EST Images from the original note were not included. GENERAL SURGERY PROGRESS NOTE PATIENT NAME: Mary Vick AGE: [age] year old : 1955 SEX: female POD1 s/p Lap PEH with mesh SUBJECTIVE and INTERVAL CHANGES: Appears uncomfortable this AM Had a BM but still burping CXR showed dilated stomach OBJECTIVE: VITAL SIGNS: BP 124/69 Pulse 77 Temp 36.4 ??C (97.6 ??F) (Oral) Resp 18 Ht 154.9 cm (5' 1 ) Wt 81.7 kg(180 lb 1.9 oz) SpO2 96% BMI 34.03 kg/m?? Body mass index is 34.03 kg/m??. PHYSICAL EXAM: GENERAL: Alert and oriented, no acute distress, cooperative. LUNGS: Non-labored breathing on 2 LNC ABDOMEN: soft, non-tender, non-distended. WOUND: clean, dry and intact. LABS: CBC, Coags, BMP, Mg, Phos Recent Labs 04/07/25 0714 04/06/25 0714 04/05/25 1815 WBC 19.84* 13.75* 15.87* HB 11.2* 10.8* 10.3* HCT 35.2* 33.8* 31.5* PLT 298 282 270 NA 136 139 139 K 3.9 4.1 5.1 CHLOR 100 103 108* CO2 23 23 21* BUN 15 12 13 CREAT 0.72 0.66 0.66 GLUC 106* 96 118* CA 7.8* 8.0* 7.8* MG 2.6* 2.3 1.8 P 2.2* 1.7* 2.4* Liver Function, Amylase, & Lipase Recent Labs 04/07/25 0714 04/06/25 0714 TPROT 6.5 6.2* ALB 3.7* 3.7* ALT 38 43* AST 36* 59* ALKPHOS 78 60 TBILI 0.6 0.5 I/O PAST 24HRS: Intake/Output Summary (Last 24 hours) at 04/07/2025 1041 Last data filed at 04/07/2025 0517 Gross per 24 hour Intake -- Output 200 ml Net -200 ml LINE, DRAINS & AIRWAY: Lines, Drains, and Airways Line Duration Peripheral 04/06/25 2351 Left Wrist 22 Gauge <1 day SURGERY/PROCEDURE: Procedure(s) and Anesthesia Type: * LAPAROSCOPIC RPR PARAESOPHAGEAL HERNIA W/O FUNDOPLASTY W/ MESH - General ASSESSMENT & PLAN: Mary Vick is a 69 year old female with PMHx COPD(no home O2, poor diffusion), CHF (LA dilation), anxiety/depression, CKD, hysterectomy who is now s/p Lap PEH with mesh. Had an episode of Afibwith RVR in PACU, resolved since then. Recovering well. CTCAP today for concern for pneumonia PLAN- Neuro: Continue current multimodal pain regimen. Resp: O2 per protocol. Incentive spirometer 10 breaths/hr while awake. Card: Appreciate recs from cardiology. ON PO metop. FEN/GI: NPO, NGT, MIVF. Check BMP daily and daily electrolytes repletion. : Monitor UOP. Dc kaye and void check. Heme: Monitor daily CBC. ID: No need for antibiotics. Ppy: Encourage mobilization, ambulation, and out of bed. SCD while in bed or sitting in a chair. Lovenox. Note: Evaluation OT/PT. Dispo: Continue care on RNF. Dominique Ibarra MD General Surgery Resident Debbie service (pager [phone]) Hernia Teams: Debbie (Cresencio Desouza Tastaldi): [phone] [place] (Ruperto Renny, Yamilet): [phone] After 6PM and on the weekends: [phone] The following problems are present on admission at this time: Heart failure Chronic pulmonary disease Hypertension Hypothyroidism Obesity Pulmonary circulation disease Continue current outpatient treatment plan and current medications for these conditions, except where otherwise noted. * Jae Melgar MD - 04/06/2025 6:52 AM EST Images from the original note were not included. GENERAL SURGERY PROGRESS NOTE PATIENT NAME: Mary Vick AGE: [age] year old : 1955 SEX: female POD1 s/p Lap PEH with mesh SUBJECTIVE and INTERVAL CHANGES: No major events overnight. Pain well controlled. NPO Does not endorse burping. No nausea or vomiting. Passing gas, no BM yet. Kaye catheter in place. Hasn't been out of bed yet. OBJECTIVE: VITAL SIGNS: BP 136/61 Pulse 78 Temp 36.8 ??C (98.2 ??F) (Oral) Resp 18 Ht 154.9 cm (5' 1 ) Wt 81.7 kg(180 lb 1.9 oz) SpO2 93% BMI 34.03 kg/m?? Body mass index is 34.03 kg/m??. PHYSICAL EXAM: GENERAL: Alert and oriented, no acute distress, cooperative. LUNGS: Non-labored breathing on 2 LNC ABDOMEN: soft, non-tender, non-distended. WOUND: clean, dry and intact. LABS: CBC, Coags, BMP, Mg, Phos Recent Labs 04/06/25 0714 04/05/25 1815 WBC 13.75* 15.87* HB 10.8* 10.3* HCT 33.8* 31.5* PLT 282 270 NA 139 139 K 4.1 5.1 CHLOR 103 108* CO2 23 21* BUN 12 13 CREAT 0.66 0.66 GLUC 96 118* CA 8.0* 7.8* MG 2.3 1.8 P 1.7* 2.4* Liver Function, Amylase, & Lipase Recent Labs 04/06/25 0714 TPROT 6.2* ALB 3.7* ALT 43* AST 59* ALKPHOS 60 TBILI 0.5 I/O PAST 24HRS: Intake/Output Summary (Last 24 hours) at 04/06/2025 1252 Last data filed at 04/06/2025 0951 Gross per 24 hour Intake 1200 ml Output 1100 ml Net 100 ml LINE, DRAINS & AIRWAY: Lines, Drains, and Airways Line Duration Peripheral 04/05/25 0635 Short Left Hand 20 Gauge 1 day SURGERY/PROCEDURE: Procedure(s) and Anesthesia Type: * LAPAROSCOPIC RPR PARAESOPHAGEAL HERNIA W/O FUNDOPLASTY W/ MESH - General ASSESSMENT & PLAN: Mary Vick is a 69 year old female with PMHx COPD(no home O2, poor diffusion), CHF (LA dilation), anxiety/depression, CKD, hysterectomy who is now s/p Lap PEH with mesh. Had an episode of Afibwith RVR in PACU, resolved since then. Recovering well. PLAN- Neuro: Continue current multimodal pain regimen. Resp: O2 per protocol. Incentive spirometer 10 breaths/hr while awake. Card: Appreciate recs from cardiology. ON PO metop. FEN/GI: Keep NPO until ROBF. UGI today. mIVF. Check BMP daily and daily electrolytes repletion. : Monitor UOP. Dc kaye and void check. Heme: Monitor daily CBC. ID: No need for antibiotics. Ppy: Encourage mobilization, ambulation, and out of bed. SCD while in bed or sitting in a chair. Lovenox. Note: Evaluation OT/PT. Dispo: Continue care on RNF. Jae Melgar MD General Surgery Resident Debbie service (pager [phone]) Hernia Teams: Debbie (Cresencio Desouza Tastaldi): [phone] [place] (Renny Hickey, Yamilet): [phone] After 6PM and on the weekends: [phone] The following problems are present on admission at this time: Heart failure Chronic pulmonary disease Hypertension Hypothyroidism Obesity Pulmonary circulation disease Continue current outpatient treatment plan and current medications for these conditions, except where otherwise noted. documented in this encounter Procedure Notes * Jazz Hull RN - 04/07/2025 12:23 PM ESTAssociated Order(s): IR VASCULAR ACCESS TEAM MIDLINE INSERTION RADIO Procedure(s): MIDLINE INSERTION/CONSULT MIDLINE INSERTION PROCEDURE NOTE - PICC TEAM NURSES DATE OF PROCEDURE: 04/07/2025 TIME OF PROCEDURE: 1223 ORDERING PHYSICIAN: Dominique Ibarra Indications for line placement: Intravenous access Condition of line placement: Sterile Primary Proceduralist: Clare Atwood RN Finance Teacher: Jazz Hull RN/ Reji Shrestha RN Pre-procedure Review: ALLERGIES Allergen Reactions Sumatriptan Other: See Comments Tachycardia fainting Tachycardia fainting Known history of Upper Venous Thrombosis: No Known history of Permanent Pacemaker or Automated Implanted Cardiac Device: No Previous breast surgery of lymph node dissection: No Estimated Glomerular Filtration Rate Date Value Ref Range Status 04/07/2025 90 >=60 mL/min/1.73m Final Comment: Estimated Glomerular Filtration Rate (eGFR) is calculated using the 2020 CKD-EPI creatinine equation. This equation utilizes serum creatinine, sex, and age as parameters. The creatinine assay has traceable calibration to isotope dilution- mass spectrometry. Refer to KDIGO guidelines for clinical interpretation. In patients with unstable renal function, e.g. those with acute kidney injury, the eGFRmay not accurately reflect actual GFR. History of Renal Disease: No Ultrasound assessment complete: Yes Procedure Narrative Safe Practice: Hand hygiene per hospital policy: Yes Skin preparation used: Chloraprep (CHG + alcohol), allowed to dry Barriers used by Proceduralist and all assisting personnel: Yes UNIVERSAL PROTOCOL / SAFETY CHECKLIST Procedure to be Performed: midline Sign In: A Moment of CARE was completed. Appropriate PPE (Personal Protective Equipment) worn by all providers involved with the procedure. Special equipment not required. Patient/Surrogate Stated/Verified: Patient name, Date of , Relevant allergies, and The intended procedure Time Out: Relevant labs, photos, and/or imaging studies have been reviewed. Intended patient and procedure match the source document(s) (e.g. consent, H&P, associated studies [imaging, pathology]) match the intended patient and procedure. Consent obtained and matches the intended procedure. n/a Correct side/site has been marked and visible. Medications required for this procedure are verified. Fire risk assessed and interventions discussed. Implants: Correct implant(s) confirmed including size and side. Expiration date(s) reviewed. Sign Out: Specimens are all correctly labeled and sent. All instruments, equipment, possible retained foreign bodies are accounted for. Yes. The post-procedure plan of care has been communicated to the patient or surrogate and to patient's multidisciplinary team (including bedside nurse for hospitalized patients). Midline Catheter Placement: Brand: BARD Lot: [id number] Number of lumens: 1 Type of Midline: Power Injectable Midline Lumen size: 4 Israeli Placement Technique: Lidocaine: Yes, Lidocaine 1% Volume 3 mL Subcutaneous Modified Seldinger Technique use to place line via the: Right Basilic Ultrasound Guidance: Yes Number of attempts at insertion: 1 Ensured control of guidewire during all aspects of the procedure: Yes Accounted for entire guidewire upon removal: Yes Internal length: 12 cm External length: 0 cm Trim length:12 cm Mid-Arm circumference: 34 centimeters Post insertion pain level related to procedure: 0 Action taken to address pain: None needed Verified placement: Positive blood return Line was flushed with 20 mL normal saline Line secured with: Securement device Sterile dressing applied and dated: Yes Sterile caps on all ports prior to leaving procedure area: Yes Specimens: None This patient has been educated that while midline catheters can sometimes be used for lab draws, itis not guaranteed. In some cases, blood may need to be drawn using a different method. Complications: None Patient education materials: Given to patient Questions or problems: Page [phone] SIGNATURE: Jazz Hull RN PATIENT NAME: Mary Vick DATE: April 07, 2025 TIME: 12:23 PM PAGER: [phone] documented in this encounter Consult Notes * Marcus Nagy MD - 04/10/2025 12:44 PM ESTAssociated Order(s): CONSULT TO CARDIOLOGY Images from the original note were not included. [facility] CONSULT NOTE (Template ID [id number]) Mary Adorno Nicanor [id number] PRIMARY SERVICE: General Surgery CONSULTING SERVICE: Cardiovascular Medicine: General Consults DATE OF ADMISSION: 04/05/2025 DATE OF CONSULT: 04/10/2025 REASON FOR CONSULT Post-op Afib Management HISTORY OF PRESENT ILLNESS Mary Vick is a 69 year old female with PMH of HFpEF (Ef 60%), HTN, hypothyroidism, anxiety,GERD iso paraesophageal hernia who presented for elective Laparoscopic paraesophageal hernia repair. Cardiology was consulted for rob-operative atrial fibrillation. The patient's surgery on 04/05 was uneventful/uncomplicated. However, shortly after arrival to PACU, she experienced atrial fibrillation with rapid ventricular response. Hemodynamics remained stable.She is minimally symptomatic. She received 7.5 mg IV metoprolol and 20 mg IV esmolol but remained in rapid ventricular response with rates in the 140s. Cardiology was consulted at this time. In summary, the patient experienced perioperative atrial fibrillation with RVR following Laparoscopic paraesophageal hernia repair. She has been hemodynamically stable but was refractory to initial IV AV carlene blockers. Her ECG is consistent with AF w RVR and shows no acute ischemic changes. She wore an event monitor in 09/2023 which showed SVT to 192 to 43 without arrhythmias. She is not anticoagulated. Bedside echocardiogram showed normal LVEF and an IVC of ~1.1cm. She then received additionalIV fluid, as well as IV diltiazem and converted to sinus bradycardia. This consult was in 04/05/2025 12:51 PM The plan at that time was to continue Metoprolol tartrate 25mg q8h, she has remained in NSR appeared to be working until last night where the patient went into bradycardia to the 40s and the metoprolol has been held since that time. Surgery reached out for recommendations for discharge planning formanagement of afib. Went and saw the patient. Subjectively, patient appears to be lying comfortably, no signs of acute distress, lungs were clear. Patient was asymptomatic during episode of Afib and during episode of overnight bradycardia. She denies lightheadedness, diaphoresis. dizziness, chest pain, shortness of breath. Zoe at bedside telemetry reviewed and she remains in NSR with HR in the 50s. PAST MEDICAL HISTORY PAST MEDICAL HISTORY Diagnosis Date CKD (chronic kidney disease) Congestive heart failure (HCC) COPD (chronic obstructive pulmonary disease) (HCC) Hypertension Sleep apnea PAST SURGICAL HISTORY Procedure Laterality Date LEFT HEART CATH,PERCUTANEOUS MANDIBLE SURGERY HX MIDLINE INSERTION/CONSULT 04/07/2025 TOTAL ABDOM HYSTERECTOMY FAMILY HISTORY FAMILY HISTORY Problem Relation Age of Onset Anesthesia Problems No Family History SOCIAL HISTORY Social History[1] HOME MEDICATIONS amitriptyline (ELAVIL) 50 mg tablet^Take 50 mg by mouth daily at bedtime.^Disp: ^Rfl: furosemide (LASIX) 20 mg tablet^Take 20 mg by mouth two times a day.^Disp: ^Rfl: ALBUTEROL INHALATION^Inhale as instructed.^Disp: ^Rfl: oxhrehthri-mfzxmuhm-utqvvopbto (BREZTRI AEROSPHERE) 160-9-4.8 mcg/actuation HFA aerosol inhaler^Inhale 2 puffs as instructed two times a day.^Disp: ^Rfl: ARIPiprazole (ABILIFY) 30 mg tablet^Take 30 mg by mouth once daily.^Disp: ^Rfl: FLUoxetine (PROZAC) 20 mg capsule^Take 20 mg by mouth once daily.^Disp: ^Rfl: levothyroxine 50 mcg cap^Take 50 mcg by mouth daily before breakfast.^Disp: ^Rfl: lisinopril (ZESTRIL) 40 mg tablet^Take 40 mg by mouth once daily.^Disp: ^Rfl: OMEPRAZOLE, BULK, MISC^^Disp: ^Rfl: POTASSIUM CHLORIDE 2.5 MEQ TAB^^Disp: ^Rfl: ropinirole HCl (ROPINIROLE PO)^Take by mouth.^Disp: ^Rfl: amoxicillin-clavulanate potassium (AUGMENTIN) 875-125 mg per tablet^Take 1 tablet by mouth every 12hours for 13 doses.^Disp: 13 tablet^Rfl: 0 acetaminophen (TYLENOL EXTRA STRENGTH) 500 mg tablet^Take 1-2 tablets by mouth every 6 hours as needed for pain for up to 5 days.^Disp: ^Rfl: metoclopramide HCl (REGLAN) 5 mg tablet^Take 1 tablet by mouth three times a day for 5 days.^Disp: 15 tablet^Rfl: 0 oxyCODONE IR (ROXICODONE) 5 mg immediate release tablet^Take 1 tablet by mouth every 6 hours as needed for pain for up to 5 days.^Disp: 12 tablet^Rfl: 0 dapagliflozin propanediol (FARXIGA) 10 mg tablet^Take by mouth daily with breakfast.^Disp: ^Rfl: INPATIENT MEDICATIONS Current Facility-Administered Medications Medication Dose Route Frequency levothyroxine 50 mcg tab(s) (SYNTHROID) 50 mcg ORAL DAILY (6 AM) magnesium sulfate iv piggyback in sterile water 2 g 50 mL 2 g INTRAVENOUS PRN(NO DISPENSE) enoxaparin 40 mg injection (LOVENOX) 40 mg SUBCUTANEOUS DAILY prochlorperazine 5 mg injection (COMPAZINE) 5 mg INTRAVENOUS q 6 H PRN NaCl 0.9% iv flush bag 20 mL INTRAVENOUS PRN sodium chloride 0.9 % (flush) 2-10 mL (BD POSIFLUSH) 2-10 mL INTRAVENOUS DIRECTED PRN And perflutren lipid microspheres 1.1 mg/mL 1.3 mL injection (DEFINITY) 1.3 mL INTRAVENOUS DIRECTED PRN simethicone 80 mg oral liquid (MYLICON) 80 mg ORAL q 8 H dextrose 15 gram/32 mL 15 g (TRUEPLUS) 15 g ORAL PRN Or glucagon 1 mg injection 1 mg INTRAMUSCULAR PRN Or dextrose 10% iv bolus 12.5 g INTRAVENOUS PRN phenol 1 spray (CHLORASEPTIC) 1 spray MUCOUS MEMBRANE (TOPICAL MOUTH & THROAT) q 2 H PRN Or benzocaine-menthol 1 lozenge (CHLORASEPTIC) 1 lozenge MUCOUS MEMBRANE (TOPICAL MOUTH & THROAT) q 2 H PRN pqzfdorais-lkmzzzgo-jvpwkzgqcc 160-9-4.8 mcg/actuation HFA 2 puff (BREZTRI) 2 puff INHALATION BID dextrose 5% in LR infusion (D5-LR) 5-30 mL/hr INTRAVENOUS CONTINUOUS metoclopramide HCl 10 mg tab(s) (REGLAN) 10 mg NASOGASTRIC TID acetaminophen 1,000 mg CUP (TYLENOL) 1,000 mg ORAL q 6 H amitriptyline 50 mg tab(s) (ELAVIL) 50 mg ORAL AT BEDTIME ARIPiprazole 30 mg tab(s) (ABILIFY) 30 mg ORAL DAILY FLUoxetine 20 mg cap(s) (PROzac) 20 mg ORAL DAILY [Order Held by LIP] metoprolol tartrate (short acting) 25 mg tab(s) (LOPRESSOR) 25 mg ORAL q 8 H ondansetron (PF) 4 mg injection (ZOFRAN) 4 mg INTRAVENOUS q [address] 40 mg tab(s) (PROTONIX) 40 mg ORAL BID AC (0600/1600) sodium phosphate 45 mmol in NaCl 0.9% 250 mL 45 mmol INTRAVENOUS ONCE amoxicillin-clavulanate potassium 875 mg tab(s) (AUGMENTIN) 875 mg ORAL q 12 H HYDROmorphone 0.2 mg injection (DILAUDID) 0.2 mg INTRAVENOUS q 4 H PRN oxyCODONE 5-10 mg oral liquid (ROXICODONE) 5-10 mg ORAL q 6 H PRN albuterol HFA 90 mcg/actuation 2 puff (PROVENTIL HFA, VENTOLIN HFA) 2 puff INHALATION q 4 H PRN ALLERGIES Allergies Allergen Reactions Sumatriptan Other: See Comments Tachycardia fainting Tachycardia fainting COMPLETE REVIEW OF SYSTEMS Constitutional: No weight loss, malaise or fevers. HEENT: Negative for frequent or significant headaches Respiratory: Negative for cough, wheezing, or shortness of breath Cardiovascular: Negative for chest pain, leg swelling or palpitations Gastrointestinal: Negative for abdominal discomfort, blood in stools or black stools or change in bowel habits Genitourinary: No history of dysuria, frequency, or incontinence Endocrine: Negative for cold or heat intolerance, polyuria, polydipsia and goiter Hematologic: Negative for prolonged bleeding, bruising easily or swollen nodes Neurologic: No history or headaches, syncope, paralysis, seizures or tremors Integumentary: Negative for lesions, rash, and itching. PHYSICAL EXAM BP 138/71 Pulse (!) 58 Temp 36.6 ??C (97.9 ??F) Resp 16 Ht 154.9 cm (5' 1 ) Wt 81.7 kg (180 lb 1.9 oz) SpO2 98% BMI 34.03 kg/m?? General Appearance: No acute distress HEENT: PERRLA, EOM intact Lungs: Clear to auscultation bilaterally Heart: Regular rate & rhythm Abdomen: Soft, non distended Skin: No rash on chest, arms or legs. No peripheral edema Musculoskeletal: No deformities Neurologic/Psychiatric: Oriented to time, place & person DATA Laboratory: Recent Labs 04/10/2544804/09/25 1800 04/09/25 0842 WBC 12.02* 14.56* 15.56* HB 9.8* 10.0* 10.2* HCT 31.9* 31.3* 32.0* PLT 322 302 272 Recent Labs 04/10/25 04404/09/25 1800 04/09/25 0842 04/08/25 1943 NA 140 -- 143 141 K 3.6* -- 4.0 3.6* CO2 30 -- 31* 28 BUN 7 -- 7 8 CREAT 0.74 -- 0.69 0.61 GLUC 132* -- 99 88 MG 2.1 2.1 2.2 2.3 No results found for: CHOL , HDL , LDL , TG No results found for: HBA1C EKG: Chest Radiograph: CT Chest with IV Contrast: DATE OF EXAM: Apr 07 2025 11:22AM Comparison: Prior outside chest CT dated 01/21/2025 RESULT: Lines, tubes, and devices: Nasogastric tube courses below the diaphragm into the stomach. Lung parenchyma and airways: Diffuse bronchiectasis, patchy peripheral groundglass and septal thickening, lower lobe volume loss and peribronchial opacities from chronic interstitial lung disease possibly organizing pneumonia from drug reaction or prior infection. Pleural space: Left greater than right small dependent pleural effusions. Lower neck, lymph nodes, and mediastinum: The imaged thyroid gland is normal. No pathologically enlarged lymphadenopathy in the supraclavicular, axillary, mediastinal, or hilar regions. Small calcified nodes from old granulomatous disease. Interval reduction of previously seen hiatal hernia with considerable amount of fluid and air in the posterior mediastinum which is likely postoperative in etiology. Heart, pericardium, and thoracic vessels: The thoracic aorta and main pulmonary artery are normal in caliber. The cardiac chambers are normal in size. Moderate coronary artery atherosclerotic calcifications are noted, although the study is not optimized for coronary assessment. No pericardial effusion or thickening. Bones and soft tissues: Mild degenerative changes of the thoracic spine. Lower thoracic vertebral body severe compression deformity unchanged. Chronic displaced sternal fracture deformity. Upper abdomen: Upper abdominal findings within dedicated report. Localizer images: No additional findings. Echocardiogram: 04/08/2025 11:00:19 AM CONCLUSIONS: - Exam indication: Sustained atrial fibrillation - The left ventricle is normal in size. Left ventricular systolic function is normal. EF = 60 ?? 5% (2D biplane) - The right ventricle is normal in size. Right ventricular systolic function is normal. - The left atrial cavity is moderately dilated. - The patient has not had a prior CC echocardiographic exam for comparison. CHADS2-Vasc Score Breakdown 4 Total Score 1 Female 1 Age 65-74 years old 1 History of CHF 1 History of hypertension ASSESSMENT AND RECOMMENDATIONS Mary Vick is a 69 year old female with PMH of HFpEF (Ef 60%), HTN, hypothyroidism, anxiety,GERD iso paraesophageal hernia who presented for elective Laparoscopic paraesophageal hernia repair. Cardiology was consulted for rob-operative atrial fibrillation. Recommendations - Resume home farxiga and lasix for HFpEF management on discharge - In the setting of post op afib with a [id number] score of 4, we would recommend anticoagulated with eliquis on discharge (5 mg BID) - If patient is unable to afford Elquis, would recommend setter her up with a coumadin clinic clos[place] - Given episodes of bradycardia and patient remains in NSR, would recommend discontinuing metoprolol on discharge - Discharge with a Ziopatch - She will need outpatient follow up with her boat tester Dr. Miriam Saenz for further managementof atrial fibrillation in 2-4 weeks. Cardiology will respectfully sign off at this time. Thank you for the opportunity to take part in Mary Vick's care. Please reach out with any additional score Patient evaluated with Medical Student Jonnie Rose and Megan Benson PGY-1 Note was edited with updated recommendations and details by Megan Benson MD Case to be discussed with staff SIGNATURE: Jonnie Rose, Megan Benson MD PATIENT NAME: Mary Vick DATE: April 10, 2025 TIME: 12:45 PM [facility] STAFF PHYSICIAN NOTE OF PERSONAL INVOLVEMENT IN CARE I have reviewed the consult note obtained and documented by the resident and I personally participated in the ayon components. I have discussed the case and management of the patient's care. The following comments revise or confirm relevant ayon components of their note. Very pleasant 69-year-old woman with a history of hypertension, HFpEF, hypothyroidism, GERD. She underwent laparoscopic paraesophageal hernia repair. Documented to be in atrial fibrillation postoperatively -subsequently spontaneously converted to sinus rhythm. She herself had no symptoms and was unable to discern the difference between sinus rhythm and atrial fibrillation. Currently feels well. Developed a significant sinus bradycardia with metoprolol which was subsequently held. 1. Paroxysmal atrial fibrillation, diagnosed postoperatively. She has a twelve- lead ECG which documents this on 04/05/2025. Normal LVEF by echocardiography. She has an elevated [id number] score. Nosymptoms from the atrial fibrillation and as such it is difficult to exclude previous clinically unrecognized episodes. Ideally needs to be anticoagulated. Consider discharging with an event monitor to get an idea about arrhythmia burden. Outpatient follow-up with her boat tester Marcus Nagy M.D. [facility] Department of Cardiovascular Medicine Heart and Vascular [place] [facility] Desk [id number] [place] [address] Office - [phone] extension [phone] Office Appointments: [phone] extension [phone] [1] Social History Tobacco Use Smoking status: Former Types: Cigarettes Passive exposure: Never Smokeless tobacco: Never Substance Use Topics Alcohol use: Never Drug use: Never * Angel Quick MD - 04/05/2025 12:51 PM ESTAssociated Order(s): CONSULT TO CARDIOLOGY [facility] [place] CARDIOVASCULAR MEDICINE CONSULT NOTE Mary Vick [id number] PRIMARY SERVICE: PACU REASON FOR CONSULT: AF w RVR DATE OF ADMISSION: 04/05/2025 HISTORY OF PRESENT ILLNESS Mary Vick is a 69 year old female with PMH of HFpEF, HTN, hypothyroidism, anxiety, GERD isoparaesophageal hernia who presented for elective Laparoscopic paraesophageal hernia repair. Cardiology was consulted for rob-operative atrial fibrillation. The patient's surgery was uneventful/uncomplicated. However, shortly after arrival to PACU, she experienced atrial fibrillation with rapid ventricular response. Hemodynamics remained stable. She is minimally symptomatic. She received 7.5 mg IV metoprolol and 20 mg IV esmolol but remained in rapid ve ntricular response with rates in the 140s. Cardiology was consulted at this time. Objective PHYSICAL EXAM Vitals Trend BP 118/57 Pulse 76 Temp 36.3 ??C (97.3 ??F) (Temporal Artery) Resp 16 SpO2 99% General: well appearing CV: Tachycardic, irregular, no murmurs, no appreciable JVD Pulm: normal work of breathing, lungs clear to auscultation bilaterally Ext: lower extremities warm, with trace edema 24-Hour Fluid Balance Intake/Output Summary (Last 24 hours) at 04/05/2025 1251 Last data filed at 04/05/2025 1213 Gross per 24 hour Intake 2310 ml Output 255 ml Net 2055 ml Diuretic administrations (last 24 hours) None Admission weight: Last recorded weight: Recent weights: 03/26/2025 02/21/2025 Weight Weight 174 lb 6.1 oz 179 lb DATA and Imaging: Labs, micro, and imaging personally reviewed and incorporated into the plan Labs: CBC: Recent Labs 04/03/25 0912 03/26/25 0814 WBC 12.15* 14.19* HB 13.5 13.9 MCV 89.4 89.1 PLT 355 387 Chem: Recent Labs 03/26/25 0814 NA 137 K 4.8 CHLOR 100 CO2 22 BUN 22* CREAT 1.03* EGFROTH 58* GLUC 102* ANION 15 CA 10.2 AST 22 ALT 13 TBILI 0.4 No results for input(s): TSH , FREET4 , FREET3 in the last 97291 hours. Coags: Recent Labs 03/26/25 0814 INR 1.0 APTT 28.2 NT-proBNP: No results for input(s): PBNP in the last 68354 hours. Troponins: No results for input(s): HSTNT in the last 61388 hours. Lipids: No results for input(s): CHOL , TG , HDL , LDL in the last 92977 hours. A1c: Imaging: EKG: Recent Results (from the past 8760 hours) ECG COMPLETE Collection Time: 04/05/25 12:39 PM Result Value Ventricular Rate 143 QRS Duration 86 QT Interval 326 QTC Calculation (Bazett) 503 Calculated R [place] 55 Calculated T [place] 116 Impression ATRIAL FIBRILLATION WITH RAPID VENTRICULAR RESPONSE NONSPECIFIC ST AND T WAVE ABNORMALITY ABNORMAL ECG Chest Radiograph: No results found. Echocardiogram: Echocardiogram 10/14/2023 - normal LVEF, grade 1 diastolic dysfunction. Stress Testing: None Cardiac Catheterization: LHC: None RHC: Last Right Heart Cath No resulted procedures found. REVIEW OF SYSTEMS All systems reviewed and are negative except for stated in the HPI. PAST MEDICAL HISTORY PAST MEDICAL HISTORY Diagnosis Date CKD (chronic kidney disease) Congestive heart failure (HCC) COPD (chronic obstructive pulmonary disease) (HCC) Hypertension Sleep apnea PAST SURGICAL HISTORY Procedure Laterality Date LEFT HEART CATH,PERCUTANEOUS MANDIBLE SURGERY HX TOTAL ABDOM HYSTERECTOMY FAMILY HISTORY FAMILY HISTORY Problem Relation Age of Onset Anesthesia Problems No Family History SOCIAL HISTORY SOCIAL HISTORY[1] HOME MEDICATIONS amitriptyline (ELAVIL) 50 mg tablet^Take 50 mg by mouth daily at bedtime.^Disp: ^Rfl: furosemide (LASIX) 20 mg tablet^Take 20 mg by mouth two times a day.^Disp: ^Rfl: ALBUTEROL INHALATION^Inhale as instructed.^Disp: ^Rfl: nqwljivjlr-qirimnnd-hbyhziwups (BREZTRI AEROSPHERE) 160-9-4.8 mcg/actuation HFA aerosol inhaler^Inhale 2 puffs as instructed two times a day.^Disp: ^Rfl: ARIPiprazole (ABILIFY) 30 mg tablet^Take 30 mg by mouth once daily.^Disp: ^Rfl: FLUoxetine (PROZAC) 20 mg capsule^Take 20 mg by mouth once daily.^Disp: ^Rfl: levothyroxine 50 mcg cap^Take 50 mcg by mouth daily before breakfast.^Disp: ^Rfl: lisinopril (ZESTRIL) 40 mg tablet^Take 40 mg by mouth once daily.^Disp: ^Rfl: OMEPRAZOLE, BULK, MISC^^Disp: ^Rfl: POTASSIUM CHLORIDE 2.5 MEQ TAB^^Disp: ^Rfl: ropinirole HCl (ROPINIROLE PO)^Take by mouth.^Disp: ^Rfl: dapagliflozin propanediol (FARXIGA) 10 mg tablet^Take by mouth daily with breakfast.^Disp: ^Rfl: amoxicillin-clavulanate potassium (AUGMENTIN) 875-125 mg per tablet^Take 1 tablet by mouth two times a day.^Disp: ^Rfl: (Patient not taking: Reported on 03/26/2025) phenazopyridine (PYRIDIUM) 200 mg tablet^Take 200 mg by mouth three times a day as needed.^Disp: ^Rfl: (Patient not taking: Reported on 03/26/2025) busPIRone (BUSPAR) 10 mg tablet^Take 10 mg by mouth three times a day.^Disp: ^Rfl: (Patient not taking: Reported on 03/26/2025) diclofenac-miSOPROStol (ARTHROTEC) 50-200 mg-mcg per tablet^Take 1 tablet by mouth two times a day.^Disp: ^Rfl: (Patient not taking: Reported on 03/26/2025) INPATIENT MEDICATIONS Current Facility-Administered Medications Medication Dose Route Frequency esmolol 20 mg injection (BREVIBLOC) 20 mg INTRAVENOUS ONCE metoprolol 2.5 mg injection (LOPRESSOR) 2.5 mg INTRAVENOUS ONCE metoprolol 2.5 mg injection (LOPRESSOR) 2.5 mg INTRAVENOUS ONCE metoprolol 5 mg injection (LOPRESSOR) 5 mg INTRAVENOUS ONCE ALLERGIES ALLERGIES Allergen Reactions Sumatriptan Other: See Comments Tachycardia fainting Tachycardia fainting ASSESSMENT: Mary Vick is a 69 year old female with PMH of HFpEF, HTN, hypothyroidism, anxiety, GERD isoparaesophageal hernia who presented for elective Laparoscopic paraesophageal hernia repair. Cardiology was consulted for rob-operative atrial fibrillation. In summary, the patient experienced perioperative atrial fibrillation with RVR following Laparoscopic paraesophageal hernia repair. She has been hemodynamically stable but was refractory to initial IV AV carlene blockers. Her ECG is consistent with AF w RVR and shows no acute ischemic changes. The patient carries a chart diagnosis of SVT but no known atrial fibrillation. She is not anticoagulated. Bedside echocardiogram showed normal LVEF and an IVC of ~1.1cm. She then received additional IV fluid, as well as IV diltiazem and converted to sinus bradycardia. CHADS-VASc 4 (age, F, HTN, HFpEF). RECOMMENDATIONS: -Continue metoprolol tartrate 25mg q8h -No anticoagulation in the immediate post-operative period -Maintain euvolemia (hold recently started lasix until normalization of PO intake) -Obtain formal echocardiogram -Telemetry -We will continue to follow Case to be discussed with staff. All recommendations & plans to be considered preliminary untilstaff attestation. Matteo Kevin MD Pager (click to page) Cardiovascular Medicine Fellow, PGY-4 Heart Vascular & Thoracic [place] [facility] STAFF PHYSICIAN NOTE OF PERSONAL INVOLVEMENT IN CARE IMPRESSION: Patient is a 69 year old female with new onset atrial fibrillation after laparoscopic paraesophageal hernia repair. PLAN: 1. Atrial fibrillation: Continue diltiazem and metoprolol for rate control. Anticipate returnof normal sinus rhythm. No indication for anticoagulation given recent surgery. I have reviewed the documentation obtained and documented by the I have reviewed the documentation provided by the Fellow. I personally performed a [id number] assessment of the patient and participated in the medical decision making.. I have discussed the case and management of the patient's care. STAFF PHYSICIAN: Angel Quick MD DATE OF SERVICE: April 05, 2025 TIME OF SERVICE: 4:26 PM [1] Social History Tobacco Use Smoking status: Former Types: Cigarettes Passive exposure: Never Smokeless tobacco: Never Substance Use Topics Alcohol use: Never Drug use: Never documented in this encounter Nursing Notes * Arti Martin RN - 04/10/2025 12:32 AM EST Event(s) / Intervention Note: PATIENT NAME: Mary Vick Patient Location: [place] [address] Room: [place] [address] The patient was observed having the following problems: change in vital signs heart rate dropped from 58 to 43. The time of the event occurred at: 11:30pm. The following intervention(s) were initiated: Team notified, order for bolus received and initiated. After the initiated interventions, the following observation(s) were made: HR remains between 41 and 43. * Marissa Marks RN - 04/05/2025 1:14 PM EST 1226: Pt arrived in PACU from OR at 1226 with HR sustaining in the 160's. BP stable, pt asymptomatic at this time. SANDRITA Dowling at bedside from OR. This RN had not assumed care of pt at this time. PACU resident paged to come to bedside to assess. 1228: Dr. Chawla, Dr. Borden (staff anesthesia on case), and Dr. Salazar (PACU resident) at bedside. 1230: 20 mg esmolol given by LIP 1235: 2.5 mg metoprolol given by LIP 1236: ABG drawn and sent 1237: 2.5 mg metoprolol given by LIP 1239: 50 mcg fentanyl given by [facility] [employer] [employer] for abdominal pain 12/30 per pt 1240: EKG done and reviewed by GLO at bedside, shows atrial fibrillation with rapid ventricular rate 1242: 2.5 mg metoprolol given by GLO 1245: 2.5 mg metoprolol given by [facility] 1246: This RN assumed care at 1246 from SANDRITA Dowling. HR 137, BP stable. Pt still asymptomatic atthis time. 1248: Chest XRAY done in PACU per order and reviewed by Dr. Salazar at bedside 1253: 5 mg metoprolol given (see MAR) 1255: Handoff given to MATHEUS Chi RN documented in this encounter OR Notes * Brief Op Note - Jae Melgar MD - 04/05/2025 12:06 PM EST Images from the original note were not included. GENERAL SURGERY BRIEF OPERATIVE NOTE [place] [id number] LOG ID: [id number] Surgery/Procedure Date: 04/05/2025 Incision/Procedure Start Time: 8:35 AM Incision Close/Procedure End Time: 12:06 PM Surgeon(s)/Proceduralist(s) and Finance Teacher(s): Surgeons and Role: * Joo aBles - Primary * Dave Orourke MD - Resident - Assisting * Jae Melgar MD - Resident - Assisting Procedure(s): Procedure(s) and Anesthesia Type: * LAPAROSCOPIC RPR PARAESOPHAGEAL HERNIA W/O FUNDOPLASTY W/ MESH - General Anesthesia: General Findings: Mild BURT, Large paraesophageal hernia (stage IV). [place] Bio-A mesh used. Anterior gastropexy done. Intraoperative endoscopy done. Please see operative report for full details. Estimated Blood Loss: 50 cc Tubes/ Drains: None Specimens: * No specimens in log * Complications: None Wound Classification: Class 1, operative wound clean, non-traumatic, with no inflammation encountered, no break in technique, biliary, gastrointestinal and genitor-urinary tracts not entered Diagnosis: Pre-Op Diagnosis Codes: * Preoperative examination [Z01.818] * Hiatal hernia [K44.9] Post-Op Diagnosis Codes: * Same as preoperative diagnosis Post-Op Plan: Kaye NPO UGI on POD1 SIGNATURE: Jae Melgar MD General Surgery Resident Debbie service (pager [phone]) Hernia Teams: Debbie (Cresencio Desouza Tastaldi): [phone] [place] (Renny Hickey, Yamilet): [phone] After 6PM and on the weekends: [phone] PATIENT NAME: Mary Vick DATE: April 05, 2025 TIME: 12:06 PM PAGER/CONTACT #: [phone] * Operative Report - Joo Bales - 04/05/2025 7:37 AM EST OPERATIVE/PROCEDURE REPORT LOG ID: [id number] Surgery/Procedure Date: 04/05/2025 Incision/Procedure Start Time: 8:35 AM Incision Close/Procedure End Time: 12:00 PM Surgeon(s)/Proceduralist(s) and Finance Teacher(s): Surgeons and Role: * Joo Bales - Primary * Dave Orourke MD - Resident - Assisting * Jae Melgar MD - Resident - Assisting No Additional Staff Procedure(s): 1. Laparoscopic paraesophageal hernia repair with mesh 2. Esophagogastroduodenosopy 3. Gastropexy Anesthesia: General Pre-Op/Pre-Procedure Diagnosis: Paraesophageal hernia without obstruction or gangrene Post-Op/Post-Procedure Diagnosis: Type IV Paraesophageal hernia without obstruction or gangrene Operative Findings: - Type IV paraesophageal hernia Operative Indication: Mary Vick is a 69 year old female who presents with a large paraesophageal hernia with respiratory symptoms. We discussed the risks, benefits, alternatives, and potential complications, and the patient agreed to proceed with laparoscopic paraesophageal hernia repair. Procedure Details: After bringing the patient to the operating room a preoperative safety huddle was performed answering all patient and staff questions/concerns. Plans for appropriate VTE and antibiotic prophylaxis were confirmed. After general endotracheal anesthesia was administered, a kaye catheter was placed, and the patient was then appropriately positioned with padding and safety belts in an arms-out/split-leg position. Next, the abdomen was prepped and draped in the usual sterile fashion. Finally, a timeout was performed before incision. An optical entry was performed in the LUQ after insufflation of the abdomen with a Verres needle atPalmer's point. Then a 5mm port was placed 13.5cm below the xyphoid just to the left of the midlie.The LUQ port was then upsized to a 12mm step port. A 12mm right subcostal step port was placed to accommodate a liver retractor which was then placed to retract the left lobe of the liver. We then placed a 5mm port just medial to the falciform, and one 5mm port far left lateral. Laparoscopy confirmed a large paraesophageal hernia with the entire stomach located in the chest. We began by identifying and dividing the gastrohepatic ligament toward the right tima until we saw the muscle of the right tima. We then identified the hernia sac and divided the peritoneal reflection just off the crura from the right tima clockwise toward the left tima, meanwhile reducing the large hernia sac from the right and left chests. In order to get better visualization of the left tima, we divided some of the short gastric vessels, getting into the lesser sac just off the greater curvature of the stomach with the harmonic and continuing to divide the short gastric vessels along the fundus until it was completely mobilized off the left tima. Once enough of the hernia sac was removed from the left tima we identified the aortoesophageal groove and dissected the esophagus off the aorta. We then turned our attention back to the right tima and continued to detach the hernia sac from the right itma toward the V of the crura. Once that was identified we began to dissect beneath the esophagus from right to left creating a window under the esophagus until we felt close to our contralateral aortoesophageal groove dissection. This was done with great caution not to injure either the esophagus or the aorta. Next a isaias drain was placed around the esophagus and was secured with a 10mm clip service planner. With the isaias drain to aid with eso phageal retraction we gained additional mediastinal dissection to gain esophageal length which was almost 5cm. We then divided any additional attachments of the hernia sac to the crura which were mostly posterior at this point. Ultimately we had the hernia sac completely out of the chest with great intra-abdominal esophageal length. At that point we closed the crural defect with interrupted 0 nylon sutures - 4 posterior stitches and two anterior stitches were needed given the large size of the defect. Once the crura was closed, we performed an EGD that confirmed no trauma to the esophagus or stomach. The scope also passed easily from the esophagus to the stomach so there did not appear to be an obstruction. I elected to use mesh for reinforcement - a preformed piece of BIO-A was placed in the hiatus around the esophagus and fixated in place with Tisseal. Finally we placed two 2-0 prolene sutures in the body of the stomach as a gastropexy to the abdominal wall secured with a Eduardo-Sebas at the left lateral 12mm portsite. The liver retractor was removed under direct visualization as well as the rest of the ports. All counts were correct at the end of the case. The skin was closed with 4-0 Monocryl suture, anesthetized with 0.25% bupivicaine, and dermabond was applied. Please note, Joo Bales MD, the attending surgeon was present and scrubbed for the procedure,having performed it with assistance of a qualified resident. Estimated Blood Loss: 20 mL Specimens: None Implantable Devices: None Drains: None Complications: None ERAS procotol: Yes SIGNATURE: Joo Balse PATIENT NAME: Mary Vick DATE: April 05, 2025 TIME: 12:15 PM PAGER/CONTACT #: documented in this encounter Miscellaneous Notes * Plan of Care - Fiorella Longoria RPh - 04/10/2025 7:24 PM EST DISCHARGE MEDICATION REVIEW BY PHARMACY Patient Name: Mary Vick Account #: Data Unavailable Admission Date: 04/05/2025 Date of Contact: April 10, 2025 Time of Contact: 7:25 PM Medication list was reviewed by a Pharmacist for drug interactions or drug related problems:Yes Below is a summary of pharmacist recommendations discussed with LIP: No recommendations at this time from discharge medication list. Fiorella Longoria RPh Pager: [phone] 04/10/2025 7:25 PM Medication List START taking these medications acetaminophen 500 mg tablet Commonly known as: TYLENOL EXTRA STRENGTH Take 1-2 tablets by mouth every 6 hours as needed for pain for up to 5 days. metoclopramide HCl 5 mg tablet Commonly known as: REGLAN Take 1 tablet by mouth three times a day for 5 days. oxyCODONE IR 5 mg immediate release tablet Commonly known as: ROXICODONE Take 1 tablet by mouth every 6 hours as needed for pain for up to 5 days. CHANGE how you take these medications amoxicillin-clavulanate potassium 875-125 mg per tablet Commonly known as: AUGMENTIN Take 1 tablet by mouth every 12 hours for 13 doses. What changed: when to take this CONTINUE taking these medications ALBUTEROL INHALATION amitriptyline 50 mg tablet Commonly known as: ELAVIL ARIPiprazole 30 mg tablet Commonly known as: ARACELIS ESCOBARTRI AEROSPHERE 160-9-4.8 mcg/actuation HFA aerosol inhaler Generic drug: pdxxllfudx-iyphwrvj-wthsfklxdf FARXIGA 10 mg tablet Generic drug: dapagliflozin propanediol FLUoxetine 20 mg capsule Commonly known as: PROzac furosemide 20 mg tablet Commonly known as: LASIX levothyroxine 50 mcg Cap lisinopril 40 mg tablet Commonly known as: ZESTRIL OMEPRAZOLE (BULK) MISC POTASSIUM CHLORIDE 2.5 MEQ TAB ROPINIROLE PO STOP taking these medications busPIRone 10 mg tablet Commonly known as: BUSPAR diclofenac-miSOPROStol 50-200 mg-mcg per tablet Commonly known as: ARTHROTEC phenazopyridine 200 mg tablet Commonly known as: PYRIDIUM Where to Get Your Medications These medications were sent to [id number] - [place] [address] - [address] - [phone] [place] [address] amoxicillin-clavulanate potassium 875-125 mg per tablet metoclopramide HCl 5 mg tablet oxyCODONE IR 5 mg immediate release tablet You can get these medications from any pharmacy You don't need a prescription for these medications acetaminophen 500 mg tablet * Patient Education - Fiorella Longoria RPh - 04/10/2025 7:23 PM EST PHARMACY ANTICOAGULATION EDUCATION Patient Name: Mary Vick Account #: Data Unavailable Admission Date: 04/05/2025 5:39 AM Date of Contact: April 10, 2025 Time of Contact: 7:24 PM Anticoagulant education status: Anticoagulation has been discontinued for this patient. If anticoagulation therapy is reinitiated, please re-consult pharmacy for inpatient anticoagulation education. Fiorella Longoria RPh * Plan of Care - Juaquin Loredo - 04/10/2025 2:53 PM EST Reason for test claim: Cardiology Eliquis (apixaban) Medication: Eliquis 5 mg tablets Qty: 60 tablets Day supply: 30 days Cost on Insurance: $145.67 Does patient have a deductible? No Patient is eligible for 30-day voucher, can only be used once per lifetime. Patient has government/federal insurance and is ineligible to use copay card Total number of stahl checks: 1 If prior authorization is required, please send medication to designated pharmacy 24-48 hours in advance. Any questions, please reach out the medication shipping coordinator. Thank you. (Prices may vary at different pharmacy locations, this is the cost at [facility] on April 10, 2025 ). * Patient Education - Shweta Santos DTR - 04/07/2025 2:34 PM EST NUTRITION THERAPY PATIENT EDUCATION SERVICE DATE: 04/07/2025 SERVICE TIME: 1330 TOPIC: Diet: Low Acid and Easy to Swallow LEARNING ASSESSMENT Individuals Assessed: Patient Preferred Learning Method: No Preference Barriers to Learning: None Evident LEARNING RESPONSE Instruction Provided to: Patient Patient / Family Response: Verbalizes Understanding Method of Instruction: Written instruction/Handouts Verbal instruction Material(s) Provided to Patient: Education Materials Provided Nutrition Education [facility]CHS: Low Acid and Easy to Swallow Diet MNT Billing: $ Routine Care : 2 units SIGNATURE: Shweta Santos DTR PATIENT NAME: Mary Vick DATE: April 07, 2025 TIME: 2:34 PM PAGER: * Nutrition - Sakina Jimenez, TYE - 04/07/2025 1:44 PM EST NUTRITION THERAPY INITIAL ASSESSMENT SERVICE DATE: 04/07/2025 SERVICE TIME: Start Time: 1343 Nutrition Assessment: Recommended Malnutrition Diagnosis: Mild Protein-Calorie Malnutrition In the context of: Acute Illness or Injury Based on: Muscle Loss Nutrition Diagnosis: Problem: Suboptimal protein/energy intake Related to: Altered GI function As evidenced by: Depletion of fat/muscle stores, Early satiety, Food/nutrition related history, Imaging studies, Intake records, Medical condition, Medications and treatments, Patient/family self-report, Procedure/surgery Care Plan: Follow for diet advancement to goal (per primary) Supplements: (pending diet advancement to goal) Vitamins and Minerals: Multivitamin with minerals, Thiamine Labs: Potassium, Phosphorus, Magnesium (replete as needed) Monitor and Evaluation: Meet greater than 75% of estimated needs, Monitor bowel function, Monitor fluid/electrolyte balance, Monitor labs, I/Os, vital signs, weight Discharge Recommendations: Diet, Oral Supplements, Outpatient Nutrition Therapy appointment Diet: as per primary Oral Supplements: as needed to meet >75% of nutritional needs HPI: Per Cardiovascular Medicine note on 04/05 by Angel Quick MD: 69 year old female with PMH of HFpEF, HTN, hypothyroidism, anxiety, GERD iso paraesophageal herniawho presented for elective Laparoscopic paraesophageal hernia repair. Cardiology was consulted for rob-operative atrial fibrillation. Intake History: Nutrition Intake Prior to Admission: Less than 50% estimated energy needs greater than or equal to 3 months Current Nutrition Intake: NPO Current Intake Over time: (x 2 days) -Patient stated good appetite but has early satiety with meals. Stated eating less than half of meals at home for the last couple of months. -Stated episode of diarrhea last night Dosing Weight: 81.6 kg (180 lb) Dosing Weight Type: Current weight Estimated kilocalorie needs: 4824-7443 Calorie Calculation Method: 22-25 kcals/kg Estimated protein needs (grams): 81-97 (as renally tolerated) Grams protein determined by: 1.0 - 1.2 g/kg Diet Orders (From admission, onward) Start Ordered 04/05/25 1615 DIET NPO START NOW Question Answer Comment NPO Restrictions EXCEPT ICE CHIPS NPO Restrictions EXCEPT MEDS 04/05/25 1610 Anthropometrics: Height: 154.9 cm (5' 1 ) Weight: 81.7 kg (180 lb 1.9 oz) Usual Weight: 90.7 kg (200 lb) Usual Weight Obtained From: Patient Body mass index is 34.03 kg/m??. Weight change percentage over time: -4.2% weight loss x 3 months from 01/16/25 to 04/05/25 Weight Change: Not clinically significant weight loss Physical Exam: Subcutaneous fat loss: Subcutaneous Fat Loss Assessed Orbital: Sightly dark circles, somewhat hollow look (Mild) Upper Arm (Triceps): Adequate fat tissue (no loss) Muscle loss: Muscle Loss Assessed Temporalis: Slight depression (Mild) Clavicle: More prominent bone, less prominent muscle (Mild) Acromion: Acromion process slightly protrudes (Mild) Interosseous (Hand): Muscle bulges, flat/mild bulge between dorsal bones (No Loss) Quadricep: Well rounded muscle, kneecap not prominent (No loss) Gastrocnemius: Well developed bulb of muscle (No loss) Potential micronutrient deficiency: Hair Edema/Ascites: No edema, No ascites (per NPR) GI Symptoms: Chewing problems, Swallowing problems, Diarrhea, Early satiety, Abdominal pain, Gaseous, Bloating Functional Status: Unable to assess Potential Signs of Inflammation: Acute post-operative, Chronic condition, High CRP, Hypoalbuminemia, Leukocytosis, Imaging studies (Mild ileus noted in imaging from 04/07) CHF, HTN, CKD, COPD Lines, Drains, and Airways None MNT Billing: $ Initial Assessment: 1 unit Time Spent (mins): 8 SIGNATURE: Sakina Jimenez RD PATIENT NAME: Mary Vick DATE: April 07, 2025 TIME: 2:12 PM * Patient Education - Jazz Hull RN - 04/07/2025 12:20 PM EST PATIENT EDUCATION TOPIC: PROCEDURE / SURGERY: Procedure/Surgery: midline PATIENT NAME: Mary Vick PATIENT LOCATION: [place] [address] READINESS TO LEARN COGNITIVE ABILITY: Alert and oriented MOTIVATION TO LEARN: Interested FAMILY SUPPORT: High - Very involved in pt care INSTRUCTION PROVIDED TO: Patient and Family member PATIENT LEARNS BEST BY: Multiple Methods FACTORS AFFECTING LEARNING: None PHYSICAL LIMITATIONS AFFECTING LEARNING: Pain , Fatigue , and Limited Mobility LEARNING RESPONSE DIAGNOSIS: ADULT: midline PATIENT/FAMILY RESPONSE: Verbalizes understanding of: PHYSICAL RESTRICTIONS- Physical restrictions and recommendations after discharge from the hospital POST-PROCEDURE INSTRUCTIONS-Correct actions to take to reduce post procedure complications METHOD OF INSTRUCTION: Individual instruction Verbal instruction FOLLOW-UP PLAN: Reinforce - Repeat previous content INSTRUCTIONAL AIDS USED: midline book SUPPLEMENTAL MATERIAL PROVIDED TO PATIENT: None REFERRAL (RECOMMENDATION): Nursing Facility documented in this encounter Plan of Treatment DateTypeDepartmentCare Team (Latest Contact Info)Jgnifpnydrf49/03/2025 11:30 AM ESTOffice Visit General Surgery [address] [place] [address] Sarai Ramos APRN.[employer]ER [address] [place] [address] Post opNameTypePriorityAssociated DiagnosesDate/TimeECG COMPLETEECGSTAT 04/05/2025 12:39 PM ESTECG ODXDFFKWLNH96/14/2025 1:53 PM ESTNameTypePriority Associated DiagnosesOrder ScheduleECG COMPLETEECGRoutine Chronic congestive heart failure, unspecified heart failure type (HCC) 1 Occurrences starting 04/05/2025 until 04/05/2026documented as of this encounter Procedures Procedure NamePriorityDate/TimeAssociated DiagnosisCommentsGLUCOSE, BLOOD (POC) Qaalets7204/10/2025 12:09 PM EST MAGNESIUM WOMHkhwgbt41/19/2025 4:49 AM EST PHOSPHORUS XIMIQSCEGRxehrhp44/19/2025 4:49 AM EST CBC + JEPOHvwadhw30/19/2025 4:49 AM EST C-REACTIVE PROTEIN (CRP)Wddgbwu1704/10/2025 4:49 AM EST BASIC METABOLIC BFPTZGlyqojn22/19/2025 4:49 AM EST GLUCOSE, BLOOD (POC)Fqvqvwa4604/10/2025 4:48 AM EST GLUCOSE, BLOOD (POC)Snmqugv0204/09/2025 11:24 PM EST MAGNESIUM AMBRifkfyh82/18/2025 6:00 PM EST PHOSPHORUS HFTTEWQIXBzfccth39/18/2025 6:00 PM EST CBC + UDCWVpwqcwg76/18/2025 6:00 PM EST C-REACTIVE PROTEIN (CRP)Zenstoj7704/09/2025 6:00 PM EST GLUCOSE, BLOOD (POC)Lduewqy4004/09/2025 5:06 PM EST GLUCOSE, BLOOD (POC)Zouoaaa7504/09/2025 11:46 AM EST MAGNESIUM QKLRRBT66/18/2025 8:42 AM EST PHOSPHORUS WUHPCIJOPDTIT31/18/2025 8:42 AM EST COMPLETE BLOOD FPMONCRSU74/18/2025 8:42 AM EST BASIC METABOLIC HJKFWMIWJ53/18/2025 8:42 AM EST GLUCOSE, BLOOD (POC)Afzgguv2804/09/2025 5:50 AM EST GLUCOSE, BLOOD (POC)Fysqwli6804/08/2025 11:22 PM EST MAGNESIUM YHCQhmafsh09/17/2025 7:43 PM EST PHOSPHORUS ZEPEEIMLVQpbwncc45/17/2025 7:43 PM EST CBC + PSOMXnbpyvd64/17/2025 7:43 PM EST C-REACTIVE PROTEIN (CRP)Ycopaif7104/08/2025 7:43 PM EST BASIC METABOLIC TPFHYSycrq64/17/2025 7:43 PM EST GLUCOSE, BLOOD (POC)Fufnyxg7004/08/2025 6:32 PM EST XR ABDOMEN 1V YJOUBZTWSY68/17/2025 1:10 PM EST GLUCOSE, BLOOD (POC)Tcnjntz4204/08/2025 11:58 AM EST TKMHToiypit21/17/2025 11:00 AM EST LVEF TRANSTHORACIC WFKIHxghewl63/17/2025 11:00 AM EST MAGNESIUM HUMLrctpow57/17/2025 6:41 AM EST PHOSPHORUS WYVYLHANCZywoccj72/17/2025 6:41 AM EST COMPREHENSIVE METABOLIC HSLZBHkulcyu08/17/2025 6:41 AM EST CBC + FVHCYunyjjk34/17/2025 6:41 AM EST C-REACTIVE PROTEIN (CRP)Ezgvuut8704/08/2025 6:41 AM EST GLUCOSE, BLOOD (POC)Djdkcsz0204/08/2025 5:44 AM EST GLUCOSE, BLOOD (POC)Cictgsz2104/07/2025 11:17 PM EST GLUCOSE, BLOOD (POC)Efgekor8704/07/2025 4:48 PM EST IR VASCULAR ACCESS TEAM MIDLINE INSERTION RPSLPVkyuvqv28/16/2025 12:23 PM EST GLUCOSE, BLOOD (POC)Bsjmhnb0904/07/2025 11:[address] ABD/PEL W NAEWBTNDU01/16/2025 11:[address] CHEST W ACLSNBMLB18/16/2025 11:22 AM EST XR ABDOMEN 1V ZSSJJRNDNX22/16/2025 9:41 AM EST XR ABDOMEN 1V GHJBSQGIARB17/16/2025 9:30 AM EST XR CHEST 1V FRONTAL BLYSYECI02/16/2025 8:20 AM EST MAGNESIUM MAEQpvxeln58/16/2025 7:14 AM EST HIGH SENSITIVITY TROPONIN VCrwzgkz61/16/2025 7:14 AM EST PHOSPHORUS PUIBFKUPDJlogdmi98/16/2025 7:14 AM EST COMPREHENSIVE METABOLIC ELOCNDzntgxg34/16/2025 7:14 AM EST CBC + DCZQNpnvlds34/16/2025 7:14 AM EST C-REACTIVE PROTEIN (CRP)Yqymlsn9304/07/2025 7:14 AM EST GLUCOSE, BLOOD (POC)Evagusc4904/07/2025 5:23 AM EST GLUCOSE, BLOOD (POC)Uhksxdo1704/06/2025 11:24 PM EST GLUCOSE, BLOOD (POC)Hzkenuw8404/06/2025 5:31 PM EST GLUCOSE, BLOOD (POC)Uivgovr1904/06/2025 1:20 PM EST XR UPPER GI SINGLE BGNWJZOLOwmuqze94/15/2025 11:20 AM EST MAGNESIUM TSUHkuupkw26/15/2025 7:14 AM EST HIGH SENSITIVITY TROPONIN AFaqzjyn64/15/2025 7:14 AM EST HIGH SENSITIVITY TROPONIN XIokczof64/15/2025 7:14 AM EST PHOSPHORUS VJYAAMQIWZgorrao27/15/2025 7:14 AM EST COMPREHENSIVE METABOLIC GRHWMUbiqymz74/15/2025 7:14 AM EST CBC + FIRSKmhdjxq69/15/2025 7:14 AM EST C-REACTIVE PROTEIN (CRP)Vtoicjm2904/06/2025 7:14 AM EST MAGNESIUM VEHUSSO40/14/2025 6:15 PM EST PHOSPHORUS DRCTUHRWPTGJS00/14/2025 6:15 PM EST COMPLETE BLOOD PLODKPCST58/14/2025 6:15 PM EST BASIC METABOLIC EFOOSQVBF27/14/2025 6:15 PM EST ECG YUJCFTWD12/14/2025 1:53 PM ESTXR CHEST 1V FRONTAL NXGTGIIX75/14/2025 12:56 PM EST ECG QNLCKTZRWGRU20/14/2025 12:39 PM ESTGASA + ALL + RMEublcil87/14/2025 12:36 PM EST GASA + ALL + AEHPLV2704/05/2025 10:07 AM EST LAPS RPR PARAESPHGL HRNA INCL FUNDPLSTY W/MESH04/05/2025 7:37 AM EST Preoperative examination Hiatal hernia CONFIRM BLOOD IGLBZSVL49/14/2025 7:05 AM EST documented in this encounter Results * (ABNORMAL) GLUCOSE, BLOOD (POC) (04/10/2025 12:09 PM EST)ComponentValueRef RangeTest MethodAnalysis TimePerformed AtPathologist SignatureGlucose, Point of Noyi038(A)74 - 99 mg/dLMercy Health Perrysburg HospitalComment: Location:[facility], [address] [place] [address], [facility] The Accu-Chek Inform II glucose meter has not been approved for testing on patients receiving intensive medical intervention or therapy and results from this point of care glucose test should not be used for patient management decisions in these cases. ??Inaccurate results may also occur from other interfering factors, such as N-acetylcysteine (blood concentrations of greater than 5mg/dL), galactose, extremes of hematocrit (<10 or >65), or high doses of ascorbic acid (vitamin C) greater than 3mg/dL. ??Consider alternate testing mechanisms (e.g. core lab, blood gas instrument) in the above situations. Specimen (Source)Anatomical Location / LateralityCollection Method / Volume Collection TimeReceived Time04/10/2025 12:09 PM EST Narrative Authorizing ProviderResult TypeResult StatusLuciano TastaldiPOC TESTINGFinal ResultPerforming OrganizationAddressCity/State/ZIP CodePhone Number [facility] [address] * (ABNORMAL) PHOSPHORUS INORGANIC (04/10/2025 4:49 AM EST)ComponentValueRef RangeTest MethodAnalysis TimePerformed AtPathologist SignaturePhosphorus1.9(L) 2.7 - 4.8 mg/dL04/10/2025 7:19 AM ESTKET[facility] LABSpecimen (Source)Anatomical Location / LateralityCollection Method / VolumeCollection TimeReceived TimeBloodBLOOD SPECIMEN / UnknownVenipuncture / Ziynqxi2104/10/2025 4:49 AM EST04/10/2025 6:04 AM EST Narrative Authorizing ProviderResult TypeResult StatusLuciano TastaldiLABORATORYFinal ResultPerforming OrganizationAddressCity/State/ZIP CodePhone Number [facility] [address] [place] [address], * MAGNESIUM (04/10/2025 4:49 AM EST)ComponentValueRef RangeTest MethodAnalysis TimePerformed AtPathologist SignatureMagnesium2.11.7 - 2.3 mg/dL04/10/2025 7:19 AM [facility] LABSpecimen (Source)Anatomical Location / LateralityCollection Method / VolumeCollection TimeReceived TimeBloodBLOOD SPECIMEN / UnknownVenipuncture / Evbowhb9204/10/2025 4:49 AM EST04/10/2025 6:04 AM EST Narrative Authorizing ProviderResult TypeResult StatusLuciano TastaldiLABORATORYFinal ResultPerforming OrganizationAddressCity/State/ZIP CodePhone Number [facility] [address] [place] [phone], * (ABNORMAL) COMPLETE BLOOD COUNT AND DIFFERENTIAL (04/10/2025 4:49 AM EST) ComponentValueRef RangeTest MethodAnalysis TimePerformed AtPathologist OavrfgvyrXTM66.02(H)3.70 - 11.00 k/uL04/10/2025 6:43 AM [facility] LABRBC3.38(L)3.90 - 5.20 m/uL04/10/2025 6:43 AM [facility] LABHemoglobin9.8(L)11.5 - 15.5 g/dL04/10/2025 6:43 AM [facility] EOCTnwhhcfhnf43.9(L)36.0 - 46.0 %04/10/2025 6:43 AM [facility] LOZUSU31.480.0 - 100.0 fL04/10/2025 6:43 AM [facility] LABMCH 29.026.0 - 34.0 pg04/10/2025 6:43 AM [facility] MLJCXYH13.730.5 - 36.0 g/dL04/10/2025 6:43 AM [facility] LABRDW-CV17.4(H)11.5 - 15.0 %04/10/2025 6:43 AM [facility] LABPlatelet Pdgyt570067 - 400 k/uL04/10/2025 6:43 AM [facility] JKHWXO80.69.0 - 12.7 fL 04/10/2025 6:43 AM [facility] LABNeutrophils %76.2%04/10/2025 6:43 AM [facility] LABAbs Neut9.16(H)1.45 - 7.50 k/uL04/10/2025 6:43 AM [facility] LABLymphocytes %8.5%04/10/2025 6:[address] [facility] LABAbs Lymph1.021.00 - 4.00 k/uL04/10/2025 6:[address] [facility] LABMonocytes %7.8%04/10/2025 6:43 AM [facility] LABAbs Mono0.94(H)<0.87 k/uL04/10/2025 6:43 AM [facility] LABEosinophils %4.2%04/10/2025 6:43 AM [facility] LABAbs Eosin 0.50(H)<0.46 k/04/10/2025 6:43 AM [facility] LABBasophils %0.7 %04/10/2025 6:43 AM [facility] LABAbs Baso0.09<0.11 k/uL 04/10/2025 6:43 AM [facility] LABImmature Granulocytes %2.6% 04/10/2025 6:43 AM [facility] LABAbs Immature Gran0.31(H)<0.10 k/uL04/10/2025 6:43 AM [facility] LABNRBC0.0/100 WBC04/10/2025 6:43 AM [facility] LABAbsolute nRBC<0.01<0.01 k/04/10/2025 6:43 AM [facility] LABDiff CxihWnpw05/19/2025 6:[address] [facility] LABSpecimen (Source)Anatomical Location / Laterality Collection Method / VolumeCollection TimeReceived TimeBloodBLOOD SPECIMEN / UnknownVenipuncture / Ovxhnta2704/10/2025 4:49 AM EST04/10/2025 6:04 AM EST Narrative Authorizing ProviderResult TypeResult StatusLuciano TastaldiLABORATORYFinal ResultPerforming OrganizationAddressCity/State/ZIP CodePhone Number [facility] [address] [place] [address], * (ABNORMAL) C-REACTIVE PROTEIN (04/10/2025 4:49 AM EST)ComponentValueRef Range Test MethodAnalysis TimePerformed AtPathologist HcnpuobvfNQN71.1(H)<0.9 mg/dL 04/10/2025 7:19 AM [facility] LABSpecimen (Source)Anatomical Location / LateralityCollection Method / VolumeCollection TimeReceived Time BloodBLOOD SPECIMEN / UnknownVenipuncture / Iqhjnud3104/10/2025 4:49 AM EST 04/10/2025 6:04 AM EST Narrative Authorizing ProviderResult TypeResult StatusLuciano TastaldiLABORATORYFinal ResultPerforming OrganizationAddressCity/State/ZIP CodePhone Number [facility] [address] [place] [address], * (ABNORMAL) BASIC METABOLIC PANEL (04/10/2025 4:49 AM EST)ComponentValueRef RangeTest MethodAnalysis TimePerformed AtPathologist PxebykufxWwespqk335(H)74 - 99 mg/dL04/10/2025 7:19 AM [facility] LABComment: The [place] [employer] (ADA) provides guidance for cutoff [...] Standards of Medical Care in Diabetes 2016, [place] [employer]. Diabetes Care. 2016.39(Suppl 1). BUN77 - 21 mg/dL04/10/2025 7:19 AM [facility] LABCreatinine0.74 0.58 - 0.96 mg/dL04/10/2025 7:19 AM [facility] ZCXHncsnh113769 - 144 mmol/L106/10/2024 7:19 AM [facility] LABPotassium3.6(L)3.7 - 5.1 mmol/L106/10/2024 7:19 AM [facility] WKJRzgxgbcp25580 - 107 mmol/L106/10/2024 7:19 AM [facility] BVLQL59226 - 30 mmol/L 04/10/2025 7:19 AM [facility] LABAnion Gap88 - 15 mmol/L106/10/2024 7:19 AM [facility] LABCalcium, Total7.7(L)8.5 - 10.2 mg/dL 04/10/2025 7:19 AM [facility] LABEstimated Glomerular Filtration Rate87>=60 mL/min/1.73m 04/10/2025 7:19 AM [facility] LABComment:Estimated Glomerular Filtration Rate (eGFR) is calculated [...] VolumeCollection TimeReceived TimeBloodBLOOD SPECIMEN / UnknownVenipuncture / Vhatfuh0204/10/2025 4:49 AM EST04/10/2025 6:04 AM EST Narrative Authorizing ProviderResult TypeResult StatusLuciano TastaldiLABORATORYFinal ResultPerforming OrganizationAddressCity/State/ZIP CodePhone Number [facility] [address] [place] [address], * (ABNORMAL) GLUCOSE, BLOOD (POC) (04/10/2025 4:48 AM EST)ComponentValueRef RangeTest MethodAnalysis TimePerformed AtPathologist SignatureGlucose, Point of Nkkd794(A)74 - 99 mg/dLMercy Health Perrysburg HospitalComment: Location:[facility], [address] [place] [address], [facility] The Accu-Chek Inform II glucose meter has not been approved for testing on patients receiving intensive medical intervention or therapy and results from this point of care glucose test should not be used for patient management decisions in these cases. ??Inaccurate results may also occur from other interfering factors, such as N-acetylcysteine (blood concentrations of greater than 5mg/dL), galactose, extremes of hematocrit (<10 or >65), or high doses of ascorbic acid (vitamin C) greater than 3mg/dL. ??Consider alternate testing mechanisms (e.g. core lab, blood gas instrument) in the above situations. Specimen (Source)Anatomical Location / LateralityCollection Method / Volume Collection TimeReceived Time04/10/2025 4:48 AM EST Narrative Authorizing ProviderResult TypeResult StatusLucuniversal health services TastaldiPOC TESTINGFinal ResultPerforming OrganizationAddressCity/State/ZIP CodePhone Number [facility] [address] * (ABNORMAL) GLUCOSE, BLOOD (POC) (04/09/2025 11:24 PM EST)ComponentValueRef RangeTest MethodAnalysis TimePerformed AtPathologist SignatureGlucose, Point of Ivjy522(A)74 - 99 mg/dLMercy Health Perrysburg HospitalComment: Location:[facility], [address] [place] [address], [facility] The Accu-Chek Inform II glucose meter has not been approved for testing on patients receiving intensive medical intervention or therapy and results from this point of care glucose test should not be used for patient management decisions in these cases. ??Inaccurate results may also occur from other interfering factors, such as N-acetylcysteine (blood concentrations of greater than 5mg/dL), galactose, extremes of hematocrit (<10 or >65), or high doses of ascorbic acid (vitamin C) greater than 3mg/dL. ??Consider alternate testing mechanisms (e.g. core lab, blood gas instrument) in the above situations. Specimen (Source)Anatomical Location / LateralityCollection Method / Volume Collection TimeReceived Time04/09/2025 11:24 PM EST Narrative Authorizing ProviderResult TypeResult StatusLuciano TastaldiPOC TESTINGFinal ResultPerforming OrganizationAddressCity/State/ZIP CodePhone Number [facility] [address] * (ABNORMAL) PHOSPHORUS INORGANIC (04/09/2025 6:00 PM EST)ComponentValueRef RangeTest MethodAnalysis TimePerformed AtPathologist SignaturePhosphorus1.7(L) 2.7 - 4.8 mg/dL04/09/2025 9:47 PM ESTNEW[facility] LABSpecimen (Source)Anatomical Location / LateralityCollection Method / VolumeCollection TimeReceived TimeBloodBLOOD SPECIMEN / UnknownVenipuncture / Cmpiifw8004/09/2025 6:00 PM EST04/09/2025 6:20 PM EST Narrative Authorizing ProviderResult TypeResult StatusLuciano TastaldiLABORATORYFinal ResultPerforming OrganizationAddressCity/State/ZIP CodePhone Number [facility] [address] [place] [phone], * MAGNESIUM (04/09/2025 6:00 PM EST)ComponentValueRef RangeTest MethodAnalysis TimePerformed AtPathologist SignatureMagnesium2.11.7 - 2.3 mg/dL04/09/2025 9:47 PM [facility] LABSpecimen (Source)Anatomical Location / LateralityCollection Method / VolumeCollection TimeReceived TimeBloodBLOOD SPECIMEN / UnknownVenipuncture / Sdexoyg4304/09/2025 6:00 PM EST04/09/2025 6:20 PM EST Narrative Authorizing ProviderResult TypeResult StatusLuciano TastaldiLABORATORYFinal ResultPerforming OrganizationAddressCity/State/ZIP CodePhone Number [facility] [address] [place] [phone], * (ABNORMAL) COMPLETE BLOOD COUNT AND DIFFERENTIAL (04/09/2025 6:00 PM EST) ComponentValueRef RangeTest MethodAnalysis TimePerformed AtPathologist WlzpuaodzHHO86.56(H)3.70 - 11.00 k/uL04/09/2025 6:53 PM [facility] LABRBC3.41(L)3.90 - 5.20 m/uL04/09/2025 6:53 PM [facility] BDQNpgxzocwuy35.0(L)11.5 - 15.5 g/dL04/09/2025 6:53 [facility] QSCYywybqyryi09.3(L)36.0 - 46.0 %04/09/2025 6:53 PM [facility] IEHZVX80.880.0 - 100.0 fL04/09/2025 6:53 PM [facility] LAB MCH29.326.0 - 34.0 pg04/09/2025 6:53 PM [facility] TYLTRIM44.9 30.5 - 36.0 g/dL04/09/2025 6:53 PM [facility] LABRDW-CV17.3(H) 11.5 - 15.0 %04/09/2025 6:53 PM [facility] LABPlatelet Hfota761 150 - 400 k/uL04/09/2025 6:53 PM [facility] LQCJCL33.59.0 - 12.7 fL04/09/2025 6:53 PM [facility] LABNeutrophils %80.9%04/09/2025 6:53 PM [facility] LABAbs Neut11.78(H)1.45 - 7.50 k/uL 04/09/2025 6:53 PM [facility] LABLymphocytes %7.8%04/09/2025 6:53 PM [facility] LABAbs Lymph1.131.00 - 4.00 k/uL04/09/2025 6:53 PM [facility] LABMonocytes %6.1%04/09/2025 6:[address] [facility] LABAbs Mono0.89(H)<0.87 k/uL04/09/2025 6:[address] [facility] LABEosinophils %2.8%04/09/2025 6:53 PM [facility] LABAbs Eosin0.41<0.46 k/uL04/09/2025 6:53 PM [facility] LABBasophils %0.6%04/09/2025 6:53 PM [facility] LABAbs Baso 0.09<0.11 k/uL04/09/2025 6:53 PM [facility] LABImmature Granulocytes %1.8%04/09/2025 6:53 PM [facility] LABAbs Immature Gran0.26(H)<0.10 k/uL04/09/2025 6:53 PM [facility] LABNRBC0.0 /100 WBC04/09/2025 6:53 PM [facility] LABAbsolute nRBC<0.01<0.01 k/uL04/09/2025 6:53 PM [facility] LABDiff NbcbOraz06/18/2025 6:53 PM [facility] LABSpecimen (Source)Anatomical Location / LateralityCollection Method / VolumeCollection TimeReceived TimeBloodBLOOD SPECIMEN / UnknownVenipuncture / Tfoxmsb2604/09/2025 6:00 PM EST04/09/2025 6:20 PM EST Narrative Authorizing ProviderResult TypeResult StatusLuciano TastaldiLABORATORYFinal ResultPerforming OrganizationAddressCity/State/ZIP CodePhone Number [facility] [address] [place] [address], * (ABNORMAL) C-REACTIVE PROTEIN (04/09/2025 6:00 PM EST)ComponentValueRef Range Test MethodAnalysis TimePerformed AtPathologist AdldwjofrHDD13.6(H)<0.9 mg/dL 04/09/2025 9:47 PM [facility] LABSpecimen (Source)Anatomical Location / LateralityCollection Method / VolumeCollection TimeReceived Time BloodBLOOD SPECIMEN / UnknownVenipuncture / Tbvpkyl7204/09/2025 6:00 PM EST 04/09/2025 6:20 PM EST Narrative Authorizing ProviderResult TypeResult StatusLuciano TastaldiLABORATORYFinal ResultPerforming OrganizationAddressty/State/ZIP CodePhone Number [facility] [address] [place] [address], [place] * GLUCOSE, BLOOD (POC) (04/09/2025 5:06 PM EST)ComponentValueRef RangeTest MethodAnalysis TimePerformed AtPathologist SignatureGlucose, Point of Yydb4361 - 99 mg/dLMercy Health Perrysburg HospitalComment: Location:[facility], [address] [place] [address], [facility] The Accu-Chek Inform II glucose meter has not been approved for testing on patients receiving intensive medical intervention or therapy and results from this point of care glucose test should not be used for patient management decisions in these cases. ??Inaccurate results may also occur from other interfering factors, such as N-acetylcysteine (blood concentrations of greater than 5mg/dL), galactose, extremes of hematocrit (<10 or >65), or high doses of ascorbic acid (vitamin C) greater than 3mg/dL. ??Consider alternate testing mechanisms (e.g. core lab, blood gas instrument) in the above situations. Specimen (Source)Anatomical Location / LateralityCollection Method / Volume Collection TimeReceived Time04/09/2025 5:06 PM EST Narrative Authorizing ProviderResult TypeResult StatusLuciano TastaldiPOC TESTINGFinal ResultPerforming OrganizationAddressCity/State/ZIP CodePhone Number [facility] [address] * GLUCOSE, BLOOD (POC) (04/09/2025 11:46 AM EST)ComponentValueRef RangeTest MethodAnalysis TimePerformed AtPathologist SignatureGlucose, Point of Rndg0819 - 99 mg/dLMercy Health Perrysburg HospitalComment: Location:[facility], [address] [place] [address], [facility] The Accu-Chek Inform II glucose meter has not been approved for testing on patients receiving intensive medical intervention or therapy and results from this point of care glucose test should not be used for patient management decisions in these cases. ??Inaccurate results may also occur from other interfering factors, such as N-acetylcysteine (blood concentrations of greater than 5mg/dL), galactose, extremes of hematocrit (<10 or >65), or high doses of ascorbic acid (vitamin C) greater than 3mg/dL. ??Consider alternate testing mechanisms (e.g. core lab, blood gas instrument) in the above situations. Specimen (Source)Anatomical Location / LateralityCollection Method / Volume Collection TimeReceived Time04/09/2025 11:46 AM EST Narrative Authorizing ProviderResult TypeResult StatusLuciano TastaldiPOC TESTINGFinal ResultPerforming OrganizationAddressCity/State/ZIP CodePhone Number [facility] [address] * (ABNORMAL) PHOSPHORUS INORGANIC (04/09/2025 8:42 AM EST)ComponentValueRef RangeTest MethodAnalysis TimePerformed AtPathologist SignaturePhosphorus1.8(L) 2.7 - 4.8 mg/dL04/09/2025 9:15 AM [facility] LABSpecimen (Source)Anatomical Location / LateralityCollection Method / VolumeCollection TimeReceived TimeBloodBLOOD SPECIMEN / UnknownVenipuncture / Xlagsad6404/09/2025 8:42 AM EST04/09/2025 8:48 AM EST Narrative Authorizing ProviderResult TypeResult StatusLuciano TastaldiLABORATORYFinal ResultPerforming OrganizationAddressCity/State/ZIP CodePhone Number [facility] [address] [place] [address], * MAGNESIUM (04/09/2025 8:42 AM EST)ComponentValueRef RangeTest MethodAnalysis TimePerformed AtPathologist SignatureMagnesium2.21.7 - 2.3 mg/dL04/09/2025 9:15 AM [facility] LABSpecimen (Source)Anatomical Location / LateralityCollection Method / VolumeCollection TimeReceived TimeBloodBLOOD SPECIMEN / UnknownVenipuncture / Fzsgiup5704/09/2025 8:42 AM EST04/09/2025 8:48 AM EST Narrative Authorizing ProviderResult TypeResult StatusLuciano TastaldiLABORATORYFinal ResultPerforming OrganizationAddressCity/State/ZIP CodePhone Number [facility] [address] [place] [address], * (ABNORMAL) BASIC METABOLIC PANEL (04/09/2025 8:42 AM EST)ComponentValueRef RangeTest MethodAnalysis TimePerformed AtPathologist UdvqnknfzIyvphdh7006 - 99 mg/dL04/09/2025 9:15 AM [facility] LABComment: The [place] [employer] (ADA) provides guidance for cutoff [...] Standards of Medical Care in Diabetes 2016, [place] [employer]. Diabetes Care. 2016.39(Suppl 1). BUN77 - 21 mg/dL04/09/2025 9:15 AM [facility] LABCreatinine0.69 0.58 - 0.96 mg/dL04/09/2025 9:15 AM [facility] [id number] - 144 mmol/L106/09/2024 9:15 AM [facility] LABPotassium4.03.7 - 5.1 mmol/L106/09/2024 9:15 AM [facility] [id number] - 107 mmol/L 04/09/2025 9:15 AM [facility] NJHJT356(H)22 - 30 mmol/L106/09/2024 9:15 AM [facility] LABAnion Gap7(L)8 - 15 mmol/L106/09/2024 9:15 AM [facility] LABCalcium, Total7.8(L)8.5 - 10.2 mg/dL04/09/2025 9:15 AM [facility] LABEstimated Glomerular Filtration Rate93>=60 mL/min/1.73m 04/09/2025 9:15 AM [facility] LABComment:Estimated Glomerular Filtration Rate (eGFR) is calculated [...] VolumeCollection TimeReceived TimeBloodBLOOD SPECIMEN / UnknownVenipuncture / Uslzbwk9904/09/2025 8:42 AM EST04/09/2025 8:48 AM EST Narrative Authorizing ProviderResult TypeResult StatusLuciano TastaldiLABORATORYFinal ResultPerforming OrganizationAddressCity/State/ZIP CodePhone Number [facility] [address] [place] [address], [place] * (ABNORMAL) COMPLETE BLOOD COUNT (04/09/2025 8:42 AM EST)ComponentValueRef RangeTest MethodAnalysis TimePerformed AtPathologist WonsjdujcQIB36.56(H)3.70 - 11.00 k/uL04/09/2025 8:55 AM [facility] LABRBC3.55(L)3.90 - 5.20 m/uL04/09/2025 8:55 AM [facility] RYGHmfdhcpbcg81.2(L)11.5 - 15.5 g/dL04/09/2025 8:55 AM [facility] LZYIfbokiuzky82.0(L) 36.0 - 46.0 %04/09/2025 8:55 AM [facility] LXFKSB66.180.0 - 100.0 fL04/09/2025 8:55 AM [facility] TCJCUN31.726.0 - 34.0 pg 04/09/2025 8:55 AM [facility] BWQUQQH13.930.5 - 36.0 g/dL 04/09/2025 8:55 AM [facility] LABRDW-CV17.2(H)11.5 - 15.0 % 04/09/2025 8:55 AM [facility] LABPlatelet Hopju211945 - 400 k/uL 04/09/2025 8:55 AM [facility] HWFFAH13.09.0 - 12.7 fL04/09/2025 8:55 AM [facility] LABAbsolute nRBC<0.01<0.01 k/uL04/09/2025 8:55 AM [facility] LABSpecimen (Source)Anatomical Location / LateralityCollection Method / VolumeCollection TimeReceived TimeBloodBLOOD SPECIMEN / UnknownVenipuncture / Zvuuebb7704/09/2025 8:42 AM EST04/09/2025 8:47 AM EST Narrative Authorizing ProviderResult TypeResult StatusLuciano TastaldiLABORATORYFinal ResultPerforming OrganizationAddressCity/State/ZIP CodePhone Number [facility] [address] [place] [address], [place] * (ABNORMAL) GLUCOSE, BLOOD (POC) (04/09/2025 5:50 AM EST)ComponentValueRef RangeTest MethodAnalysis TimePerformed AtPathologist SignatureGlucose, Point of Rpec186(A)74 - 99 mg/dLMercy Health Perrysburg HospitalComment: Location:[address], [facility] The Accu-Chek Inform II glucose meter has not been approved for testing on patients receiving intensive medical intervention or therapy and results from this point of care glucose test should not be used for patient management decisions in these cases. ??Inaccurate results may also occur from other interfering factors, such as N-acetylcysteine (blood concentrations of greater than 5mg/dL), galactose, extremes of hematocrit (<10 or >65), or high doses of ascorbic acid (vitamin C) greater than 3mg/dL. ??Consider alternate testing mechanisms (e.g. core lab, blood gas instrument) in the above situations. Specimen (Source)Anatomical Location / LateralityCollection Method / Volume Collection TimeReceived Time04/09/2025 5:50 AM EST Narrative Authorizing ProviderResult TypeResult StatusLuciano TastaldiPOC TESTINGFinal ResultPerforming OrganizationAddressCity/State/ZIP CodePhone Number [facility] [address] * (ABNORMAL) GLUCOSE, BLOOD (POC) (04/08/2025 11:22 PM EST)ComponentValueRef RangeTest MethodAnalysis TimePerformed AtPathologist SignatureGlucose, Point of Xabh130(A)74 - 99 mg/dLMercy Health Perrysburg HospitalComment: Location:[address], [facility] The Accu-Chek Inform II glucose meter has not been approved for testing on patients receiving intensive medical intervention or therapy and results from this point of care glucose test should not be used for patient management decisions in these cases. ??Inaccurate results may also occur from other interfering factors, such as N-acetylcysteine (blood concentrations of greater than 5mg/dL), galactose, extremes of hematocrit (<10 or >65), or high doses of ascorbic acid (vitamin C) greater than 3mg/dL. ??Consider alternate testing mechanisms (e.g. core lab, blood gas instrument) in the above situations. Specimen (Source)Anatomical Location / LateralityCollection Method / Volume Collection TimeReceived Time04/08/2025 11:22 PM EST Narrative Authorizing ProviderResult TypeResult StatusLuciano TastaldiPOC TESTINGFinal ResultPerforming OrganizationAddressCity/State/ZIP CodePhone Number [facility] [address] [place], [place] * (ABNORMAL) BASIC METABOLIC PANEL (04/08/2025 7:43 PM EST)ComponentValueRef RangeTest MethodAnalysis TimePerformed AtPathologist FslnyzrmzFfnnfup6032 - 99 mg/dL04/08/2025 9:06 PM [facility] LABComment: The [place] [employer] (ADA) provides guidance for cutoff [...] Standards of Medical Care in Diabetes 2016, [place] [employer]. Diabetes Care. 2016.39(Suppl 1). BUN87 - 21 mg/dL04/08/2025 9:06 PM [facility] LABCreatinine0.61 0.58 - 0.96 mg/dL04/08/2025 9:06 PM [facility] CCOOfcehb349679 - 144 mmol/L106/08/2024 9:06 PM [facility] LABPotassium3.6(L)3.7 - 5.1 mmol/L106/08/2024 9:06 PM [facility] GFMGojelrql25118 - 107 mmol/L106/08/2024 9:06 PM [facility] DYOQD10709 - 30 mmol/L 04/08/2025 9:06 PM [facility] LABAnion Ukr547 - 15 mmol/L 04/08/2025 9:06 PM [facility] LABCalcium, Total8.0(L)8.5 - 10.2 mg/dL04/08/2025 9:06 PM [facility] LABEstimated Glomerular Filtration Rate96>=60 mL/min/1.73m 04/08/2025 9:06 PM [facility] LABComment:Estimated Glomerular Filtration Rate (eGFR) is calculated [...] VolumeCollection TimeReceived TimeBloodBLOOD SPECIMEN / UnknownVenipuncture / Cvwlkpd0104/08/2025 7:43 PM EST04/08/2025 8:01 PM EST Narrative Authorizing ProviderResult TypeResult StatusLuciano TastaldiLABORATORYFinal ResultPerforming OrganizationAddressCity/State/ZIP CodePhone Number [facility] [address] [place] [address], [place] * (ABNORMAL) C-REACTIVE PROTEIN (04/08/2025 7:43 PM EST)ComponentValueRef Range Test MethodAnalysis TimePerformed AtPathologist WxapqjvlvPJY17.8(H)<0.9 mg/dL 04/08/2025 9:06 PM [facility] LABSpecimen (Source)Anatomical Location / LateralityCollection Method / VolumeCollection TimeReceived Time BloodBLOOD SPECIMEN / UnknownVenipuncture / Snkgejz8404/08/2025 7:43 PM EST 04/08/2025 8:01 PM EST Narrative Authorizing ProviderResult TypeResult StatusLuciano TastaldiLABORATORYFinal ResultPerforming OrganizationAddressCity/State/ZIP CodePhone Number [facility] [address] [place] [address], * PHOSPHORUS INORGANIC (04/08/2025 7:43 PM EST)ComponentValueRef RangeTest MethodAnalysis TimePerformed AtPathologist SignaturePhosphorus2.72.7 - 4.8 mg/dL04/08/2025 9:06 PM [facility] LABSpecimen (Source) Anatomical Location / LateralityCollection Method / VolumeCollection Time Received TimeBloodBLOOD SPECIMEN / UnknownVenipuncture / Hkhpomz8904/08/2025 7:43 PM EST04/08/2025 8:01 PM EST Narrative Authorizing ProviderResult TypeResult StatusLuciano TastaldiLABORATORYFinal ResultPerforming OrganizationAddressCity/State/ZIP CodePhone Number [facility] [address] [place] [phone], * MAGNESIUM (04/08/2025 7:43 PM EST)ComponentValueRef RangeTest MethodAnalysis TimePerformed AtPathologist SignatureMagnesium2.31.7 - 2.3 mg/dL04/08/2025 9:06 PM [facility] LABSpecimen (Source)Anatomical Location / LateralityCollection Method / VolumeCollection TimeReceived TimeBloodBLOOD SPECIMEN / UnknownVenipuncture / Fclexhv0904/08/2025 7:43 PM EST04/08/2025 8:01 PM EST Narrative Authorizing ProviderResult TypeResult StatusLuciano TastaldiLABORATORYFinal ResultPerforming OrganizationAddressCity/State/ZIP CodePhone Number [facility] [address] [place] [phone], * (ABNORMAL) COMPLETE BLOOD COUNT AND DIFFERENTIAL (04/08/2025 7:43 PM EST) ComponentValueRef RangeTest MethodAnalysis TimePerformed AtPathologist FbhawnfnfPXB68.76(H)3.70 - 11.00 k/uL04/08/2025 8:33 PM [facility] LABRBC3.67(L)3.90 - 5.20 m/uL04/08/2025 8:33 PM [facility] NHRFnjbojkbvg56.7(L)11.5 - 15.5 g/dL04/08/2025 8:33 PM [facility] QZAByneuhtnwr46.9(L)36.0 - 46.0 %04/08/2025 8:33 PM [facility] LNBOOV54.480.0 - 100.0 fL04/08/2025 8:33 PM [facility] LAB MCH29.226.0 - 34.0 pg04/08/2025 8:33 PM [facility] HOSSBAM87.6 30.5 - 36.0 g/dL04/08/2025 8:33 PM [facility] LABRDW-CV17.2(H) 11.5 - 15.0 %04/08/2025 8:33 PM [facility] LABPlatelet Egsnv863 150 - 400 k/uL04/08/2025 8:33 PM [facility] PLBEHI56.79.0 - 12.7 fL04/08/2025 8:33 PM [facility] LABNeutrophils %83.3%04/08/2025 8:33 PM [facility] LABAbs Neut16.46(H)1.45 - 7.50 k/uL 04/08/2025 8:33 PM [facility] LABLymphocytes %8.0%04/08/2025 8:33 PM [facility] LABAbs Lymph1.581.00 - 4.00 k/uL04/08/2025 8:33 PM [facility] LABMonocytes %5.2%04/08/2025 8:[address] [facility] LABAbs Mono1.03(H)<0.87 k/uL04/08/2025 8:[address] [facility] LABEosinophils %1.7%04/08/2025 8:33 PM [facility] LABAbs Eosin0.34<0.46 k/uL04/08/2025 8:33 PM [facility] LABBasophils %0.4%04/08/2025 8:33 PM [facility] LABAbs Baso 0.07<0.11 k/uL04/08/2025 8:33 PM [facility] LABImmature Granulocytes %1.4%04/08/2025 8:33 PM [facility] LABAbs Immature Gran0.28(H)<0.10 k/uL04/08/2025 8:33 PM [facility] LABNRBC0.0 /100 WBC04/08/2025 8:33 PM [facility] LABAbsolute nRBC<0.01<0.01 k/uL11/ 8:33 PM [facility] LABDiff OakuQifb91/17/2025 8:33 PM ESTNEWARK HOSPITAL LABSpecimen (Source)Anatomical Location / LateralityCollection Method / VolumeCollection TimeReceived TimeBloodBLOOD SPECIMEN / UnknownVenipuncture / Unuabpr2304/08/2025 7:43 PM EST04/08/2025 8:01 PM EST Narrative Authorizing ProviderResult TypeResult StatusLuciano TastaldiLABORATORYFinal ResultPerforming OrganizationAddressCity/State/ZIP CodePhone Number [facility] [address] [place] [address], * GLUCOSE, BLOOD (POC) (04/08/2025 6:32 PM EST)ComponentValueRef RangeTest MethodAnalysis TimePerformed AtPathologist SignatureGlucose, Point of Foah7022 - 99 mg/dLMercy Health Perrysburg HospitalComment: Location:[facility], [address] [place] [address], [facility] The Accu-Chek Inform II glucose meter has not been approved for testing on patients receiving intensive medical intervention or therapy and results from this point of care glucose test should not be used for patient management decisions in these cases. ??Inaccurate results may also occur from other interfering factors, such as N-acetylcysteine (blood concentrations of greater than 5mg/dL), galactose, extremes of hematocrit (<10 or >65), or high doses of ascorbic acid (vitamin C) greater than 3mg/dL. ??Consider alternate testing mechanisms (e.g. core lab, blood gas instrument) in the above situations. Specimen (Source)Anatomical Location / LateralityCollection Method / Volume Collection TimeReceived Time04/08/2025 6:32 PM EST Narrative Authorizing ProviderResult TypeResult StatusLuciano TastaldiPOC TESTINGFinal ResultPerforming OrganizationAddressCity/State/ZIP CodePhone Number [facility] [address] [place], [place] * XR ABDOMEN 1V SUPINE (04/08/2025 1:10 PM EST)Anatomical RegionLaterality ModalityAbdomenRadiographic ImagingSpecimen (Source)Anatomical Location / LateralityCollection Method / VolumeCollection TimeReceived Time04/08/2025 1:10 PM EST Impressions 04/08/2025 1:53 PM EST IMPRESSION: Lines, tubes, and devices: NG/OG tube with side-port and tip at the level of the gastric body. Bowel: Mild gastric distention. Mildly normal and borderline caliber loops of small bowel in the right abdomen. Contrast within nondilated colon. Other: Residual contrast in the bladder. Wallcovering Hanger: REE ?? Transcribe Date/Time: Apr 08 2025 ??1:22P Dictated by : JEANINE ROLON MD This examination was interpreted and the report reviewed and electronically signed by: MAYA GUILLERMO MD on Apr 08 2025 ??1:51PM ??EST Narrative 04/08/2025 1:53 PM EST * * *Final Report* * * DATE OF EXAM: Apr 08 2025 ??1:10PM ?? NENITA ?? [id number] ??- ??XR ABDOMEN 1V SUPINE ??/ PROCEDURE REASON: Abdominal distension ? * * * * Physician Interpretation * * * * ABDOMINAL X-RAY, 1 VIEW. CLINICAL INFORMATION: Abdominal pain. CURRENT STUDY: 04/08/2025 1:10 PM COMPARISON: Abdominal radiographs 04/07/2025 TECHNIQUE: Supine abdomen, 2 image(s). RESULT: See impression. Procedure Note Provider, [facility] - 04/08/2025 * * *Final Report* * * DATE OF EXAM: Apr 08 2025 1:10PM NENITA 5289 - XR ABDOMEN 1V SUPINE / PROCEDURE REASON: Abdominal distension * * * * Physician Interpretation * * * * ABDOMINAL X-RAY, 1 VIEW. CLINICAL INFORMATION: Abdominal pain. CURRENT STUDY: 04/08/2025 1:10 PM COMPARISON: Abdominal radiographs 04/07/2025 TECHNIQUE: Supine abdomen, 2 image(s). RESULT: See impression. IMPRESSION IMPRESSION: Lines, tubes, and devices: NG/OG tube with side-port and tip at the level of the gastric body. Bowel: Mild gastric distention. Mildly normal and borderline caliber loops of small bowel in the right abdomen. Contrast within nondilated colon. Other: Residual contrast in the bladder. Wallcovering Hanger: REE Transcribe Date/Time: Apr 08 2025 1:22P Dictated by : JEANINE ROLON MD This examination was interpreted and the report reviewed and electronically signed by: MAYA GUILLERMO MD on Apr 08 2025 1:51PM EST Authorizing ProviderResult TypeResult StatusLuciano TastaldiRAD-PAMAFinal Result * GLUCOSE, BLOOD (POC) (04/08/2025 11:58 AM EST)ComponentValueRef RangeTest MethodAnalysis TimePerformed AtPathologist SignatureGlucose, Point of Jomp7485 - 99 mg/dLMercy Health Perrysburg HospitalComment: Location:[facility], [address] [place] [address], [facility] The Accu-Chek Inform II glucose meter has not been approved for testing on patients receiving intensive medical intervention or therapy and results from this point of care glucose test should not be used for patient management decisions in these cases. ??Inaccurate results may also occur from other interfering factors, such as N-acetylcysteine (blood concentrations of greater than 5mg/dL), galactose, extremes of hematocrit (<10 or >65), or high doses of ascorbic acid (vitamin C) greater than 3mg/dL. ??Consider alternate testing mechanisms (e.g. core lab, blood gas instrument) in the above situations. Specimen (Source)Anatomical Location / LateralityCollection Method / Volume Collection TimeReceived Time04/08/2025 11:58 AM EST Narrative Authorizing ProviderResult TypeResult StatusLuciano TastaldiPOC TESTINGFinal ResultPerforming OrganizationAddressCity/State/ZIP CodePhone Number [facility] [address] * LVEF TRANSTHORACIC ECHO (04/08/2025 11:00 AM EST)ComponentValueRef RangeTest MethodAnalysis TimePerformed AtPathologist SignatureLV Ejection Sxzsnauz63% [facility]STITUTEComment: (2D biplane) EF > 54 An LV Ejection Fraction of > 50% is normal Specimen (Source)Anatomical Location / LateralityCollection Method / Volume Collection TimeReceived Time04/08/2025 11:00 AM EST Narrative Authorizing ProviderResult TypeResult StatusLuciano TastaldiLVEF RESULTSFinal ResultPerforming OrganizationAddressCity/State/ZIP CodePhone Number [facility] [address] [place] [phone] * ECHO (04/08/2025 11:00 AM EST)Specimen (Source)Anatomical Location / LateralityCollection Method / VolumeCollection TimeReceived Time04/08/2025 11:00 AM EST Impressions [facility] - 04/08/2025 12:36 PM EST CONCLUSIONS: - Exam indication: Sustained atrial fibrillation - The left ventricle is normal in size. Left ventricular systolic function is normal. EF = 60 ?? 5% (2D biplane) - The right ventricle is normal in size. Right ventricular systolic function is normal. - The left atrial cavity is moderately dilated. - The patient has not had a prior CC echocardiographic exam for comparison. * * * Final * * * Narrative [facility] - 04/08/2025 12:36 PM EST Echocardiography Report: Transthoracic Echo [facility] Bedside Date of service: 04/08/2025 11:00:19 AM TECHNICIAN Ordering physician: JOO BALES Exam indication: Sustained atrial fibrillation Technologist: Dov Gold Interpreting physician: [place] Krishna MD PATIENT: Name: MRS. MARY VICK : 1955 Age: 69 years Gender: F Primary rhythm: sinus. Height: 154.90 cm BSA: 1.87 m?? Weight: 81.70 kg ??BMI: 34.1 kg/m?? Heart rate ? 81 bpm Blood pressure 172/68 mmHg Color Doppler was utilized to interrogate the cardiac valves assessed and spectral Doppler was utilized to determine the flow velocities and pressure gradients reported in this exam. MEASUREMENTS: ? Value ? Indexed ?Normal Max aortic dimension 3.6 cm Ao < 3.8 Left atrial volume 81 ml (biplane A-L) 45 ml/m Whitley <= 34 LV ID (diastole) ? 4.0 cm (2D) ? 2.11 cm/m?? IVS, leaflet tips ?0.9 cm (2D) Posterior wall thickness 0.9 cm (2D) Left ventricular mass ?106 g (2D) ?57 g/m?? LV stroke volume ? 47 ml (2D biplane) LV end diastolic volume 79 ml (2D biplane) 42.1 ml/m 29<=EDVi<62 LV end systolic volume ?? 32 ml (2D biplane) ??16.9 ml/m?? Ejection Fraction 60 % (2D biplane) EF > 54 FINDINGS: LEFT VENTRICLE The left ventricle is normal in size. Left ventricular systolic function is normal. Normal left ventricular diastolic function. Mitral annular lateral E/e': 7.6. Mitral annular septal E/e': 10.8. Wall Motion: The basal inferior segment is not visualized. All remaining scored segments are normal. RIGHT VENTRICLE The right ventricle is normal in size. Right ventricular systolic function is normal. RV systolic tissue Doppler velocity is 22.9 cm/s. Tricuspid annular displacement is 1.8 cm. Estimated right ventricular systolic pressure is likely underestimated due to a weak or incomplete tricuspid regurgitation signal and is, at least, 29 mmHg consistent with normal pulmonary artery pressures. Estimated right atrial pressure is 3 mmHg based on IVC assessment. LEFT ATRIUM The left atrial cavity is moderately dilated. Pulmonary Veins: The pulmonary venous pattern showed normal systolic flow. RIGHT ATRIUM Unable to reliably measure RA volume due to technical limitations. Inferior Vena Cava: The inferior vena cava appears normal measuring 1.40 cm. The vessel decreases greater than 50 percent with inspiration. MITRAL VALVE There is mild mitral annular calcification observed posterior. There is trace mitral valve regurgitation. There is mild thickening. The pressure half time is 46 msec. The peak mitral E/A ratio is 0.69. The average mitral E/e' ratio is 9.2. The mitral flow deceleration time is 160 msec. TRICUSPID VALVE There is mild (1+) tricuspid valve regurgitation. There is no thickening. AORTIC VALVE There is mild (1+) aortic valve regurgitation. There is mild thickening. The peak gradient is 12 mmHg (peak velocity = 170.2 cm/s). PULMONIC VALVE There is trace (trace - 1+) pulmonic valve regurgitation. There is no thickening. AORTA The visualized aorta is normal in size. Measurements - Sinus: 3.6 cm. Mid ascending aorta 3.6 cm. INTERATRIAL SEPTUM There is no obvious evidence of intracardiac shunting as detected by Doppler. PERICARDIUM There is an epicardial fat pad. Authorizing ProviderResult TypeResult StatusLuciano TastaldiECHOFinal Result Performing OrganizationAddressCity/State/ZIP CodePhone Number [facility] [address] [place] [phone] * (ABNORMAL) C-REACTIVE PROTEIN (04/08/2025 6:41 AM EST)ComponentValueRef Range Test MethodAnalysis TimePerformed AtPathologist NcynqscxkGHW88.5(H)<0.9 mg/dL 04/08/2025 8:42 AM [facility] LABSpecimen (Source)Anatomical Location / LateralityCollection Method / VolumeCollection TimeReceived Time BloodBLOOD SPECIMEN / UnknownVenipuncture / Sdrinlc6804/08/2025 6:41 AM EST 04/08/2025 7:05 AM EST Narrative Authorizing ProviderResult TypeResult StatusLuciano TastaldiLABORATORYFinal ResultPerforming OrganizationAddressCity/State/ZIP CodePhone Number [facility] [address] [place] [address], * (ABNORMAL) PHOSPHORUS INORGANIC (04/08/2025 6:41 AM EST)ComponentValueRef RangeTest MethodAnalysis TimePerformed AtPathologist SignaturePhosphorus1.3(L) 2.7 - 4.8 mg/dL04/08/2025 8:42 AM [facility] LABSpecimen (Source)Anatomical Location / LateralityCollection Method / VolumeCollection TimeReceived TimeBloodBLOOD SPECIMEN / UnknownVenipuncture / Cqbsvqj6104/08/2025 6:41 AM EST04/08/2025 7:05 AM EST Narrative Authorizing ProviderResult TypeResult StatusLuciano TastaldiLABORATORYFinal ResultPerforming OrganizationAddressty/State/ZIP CodePhone Number [facility] [address] [place] [address], * MAGNESIUM (04/08/2025 6:41 AM EST)ComponentValueRef RangeTest MethodAnalysis TimePerformed AtPathologist SignatureMagnesium2.01.7 - 2.3 mg/dL04/08/2025 8:42 AM [facility] LABSpecimen (Source)Anatomical Location / LateralityCollection Method / VolumeCollection TimeReceived TimeBloodBLOOD SPECIMEN / UnknownVenipuncture / Ikehcky9604/08/2025 6:41 AM EST04/08/2025 7:05 AM EST Narrative Authorizing ProviderResult TypeResult StatusLuciano TastaldiLABORATORYFinal ResultPerforming OrganizationAddressCity/State/ZIP CodePhone Number [facility] [address] * (ABNORMAL) COMPLETE BLOOD COUNT AND DIFFERENTIAL (04/08/2025 6:41 AM EST) ComponentValueRef RangeTest MethodAnalysis TimePerformed AtPathologist HmanjtlzhOTY16.37(H)3.70 - 11.00 k/uL04/08/2025 8:15 AM [facility] LABRBC3.21(L)3.90 - 5.20 m/uL04/08/2025 8:15 AM [facility] LABHemoglobin9.4(L)11.5 - 15.5 g/dL04/08/2025 8:15 AM [facility] WWLUhmhtbnauy15.5(L)36.0 - 46.0 %04/08/2025 8:15 AM [facility] HMUDUQ72.980.0 - 100.0 fL04/08/2025 8:15 AM [facility] LABMCH 29.326.0 - 34.0 pg04/08/2025 8:15 AM [facility] AWQPYHA26.930.5 - 36.0 g/dL04/08/2025 8:15 AM [facility] LABRDW-CV17.3(H)11.5 - 15.0 %04/08/2025 8:15 AM [facility] LABPlatelet Ektcb022699 - 400 k/uL04/08/2025 8:15 AM [facility] JDAFMV05.79.0 - 12.7 fL 04/08/2025 8:15 AM [facility] LABNeutrophils %87.8%04/08/2025 8:15 AM [facility] LABAbs Neut15.26(H)1.45 - 7.50 k/uL04/08/2025 8:15 AM [facility] LABLymphocytes %4.1%04/08/2025 8:[address] [facility] LABAbs Lymph0.71(L)1.00 - 4.00 k/uL04/08/2025 8:15 AM [facility] LABMonocytes %6.0%04/08/2025 8:15 AM [facility] LABAbs Mono1.04(H)<0.87 k/uL04/08/2025 8:15 AM [facility] LABEosinophils %0.9%04/08/2025 8:15 AM [facility] LABAbs Eosin0.15<0.46 k/uL04/08/2025 8:15 AM [facility] LABBasophils % 0.2%04/08/2025 8:15 AM [facility] LABAbs Baso0.04<0.11 k/uL 04/08/2025 8:15 AM [facility] LABImmature Granulocytes %1.0% 04/08/2025 8:15 AM [facility] LABAbs Immature Gran0.17(H)<0.10 k/uL04/08/2025 8:15 AM [facility] LABNRBC0.0/100 WBC04/08/2025 8:15 AM [facility] LABAbsolute nRBC<0.01<0.01 k/uL04/08/2025 8:15 AM [facility] LABDiff NmdcKeal97/17/2025 8:[address] [facility] LABSpecimen (Source)Anatomical Location / Laterality Collection Method / VolumeCollection TimeReceived TimeBloodBLOOD SPECIMEN / UnknownVenipuncture / Zduzhqx4804/08/2025 6:41 AM EST04/08/2025 7:05 AM EST Narrative Authorizing ProviderResult TypeResult StatusLuciano TastaldiLABORATORYFinal ResultPerforming OrganizationAddressCity/State/ZIP CodePhone Number [facility] [address] * (ABNORMAL) COMPREHENSIVE METABOLIC PANEL (04/08/2025 6:41 AM EST)Component ValueRef RangeTest MethodAnalysis TimePerformed AtPathologist Signature Protein, Total4.8(L)6.3 - 8.0 g/dL04/08/2025 8:42 AM [facility] LABAlbumin2.7(L)3.9 - 4.9 g/dL04/08/2025 8:42 AM [facility] Calcium, Total7.4(L)8.5 - 10.2 mg/dL04/08/2025 8:42 AM [facility] LABBilirubin, Total0.40.2 - 1.3 mg/dL04/08/2025 8:42 AM [facility] LABAlkaline Hffotyuhbhc7416 - 123 U/L106/08/2024 8:42 AM EST [facility] [id number] - 35 U/L106/08/2024 8:42 AM [facility] [id number] - 38 U/L106/08/2024 8:42 AM [facility] Mqusrfr92(L)74 - 99 mg/dL04/08/2025 8:42 AM [facility] Comment: The [place] [employer] (ADA) provides guidance for cutoff [...] Standards of Medical Care in Diabetes 2016, [place] [employer]. Diabetes Care. 2016.39(Suppl 1). BUN87 - 21 mg/dL04/08/2025 8:42 AM [facility] LABCreatinine0.55(L) 0.58 - 0.96 mg/dL04/08/2025 8:42 AM [facility] [id number] - 144 mmol/L106/08/2024 8:42 [facility]Potassium3.5(L)3.7 - 5.1 mmol/L106/08/2024 8:42 AM [facility] DCONkzxzolq19659 - 107 mmol/L106/08/2024 8:42 AM [facility] [id number] - 30 mmol/L 04/08/2025 8:42 AM [facility] LABAnion Qvm230 - 15 mmol/L 04/08/2025 8:42 AM [facility] LABEstimated Glomerular Filtration Rate98>=60 mL/min/1.73m 04/08/2025 8:42 AM [facility] LABComment:Estimated Glomerular Filtration Rate (eGFR) is calculated [...] VolumeCollection TimeReceived TimeBloodBLOOD SPECIMEN / UnknownVenipuncture / Zqrtapk5404/08/2025 6:41 AM EST04/08/2025 7:05 AM EST Narrative Authorizing ProviderResult TypeResult StatusAlessandro Borden MDLABORATORYFinal ResultPerforming OrganizationAddressCity/State/ZIP CodePhone Number [facility] [address] [place] [address], * GLUCOSE, BLOOD (POC) (04/08/2025 5:44 AM EST)ComponentValueRef RangeTest MethodAnalysis TimePerformed AtPathologist SignatureGlucose, Point of Gqkn1662 - 99 mg/dLMercy Health Perrysburg HospitalComment: Location:[facility], [address] [place] [address], [facility] The Accu-Chek Inform II glucose meter has not been approved for testing on patients receiving intensive medical intervention or therapy and results from this point of care glucose test should not be used for patient management decisions in these cases. ??Inaccurate results may also occur from other interfering factors, such as N-acetylcysteine (blood concentrations of greater than 5mg/dL), galactose, extremes of hematocrit (<10 or >65), or high doses of ascorbic acid (vitamin C) greater than 3mg/dL. ??Consider alternate testing mechanisms (e.g. core lab, blood gas instrument) in the above situations. Specimen (Source)Anatomical Location / LateralityCollection Method / Volume Collection TimeReceived Time04/08/2025 5:44 AM EST Narrative Authorizing ProviderResult TypeResult StatusLuciano TastaldiPOC TESTINGFinal ResultPerforming OrganizationAddressty/State/ZIP CodePhone Number [facility] [address] * GLUCOSE, BLOOD (POC) (04/07/2025 11:17 PM EST)ComponentValueRef RangeTest MethodAnalysis TimePerformed AtPathologist SignatureGlucose, Point of Vlzj3280 - 99 mg/dLMercy Health Perrysburg HospitalComment: Location:[address], [facility] The Accu-Chek Inform II glucose meter has not been approved for testing on patients receiving intensive medical intervention or therapy and results from this point of care glucose test should not be used for patient management decisions in these cases. ??Inaccurate results may also occur from other interfering factors, such as N-acetylcysteine (blood concentrations of greater than 5mg/dL), galactose, extremes of hematocrit (<10 or >65), or high doses of ascorbic acid (vitamin C) greater than 3mg/dL. ??Consider alternate testing mechanisms (e.g. core lab, blood gas instrument) in the above situations. Specimen (Source)Anatomical Location / LateralityCollection Method / Volume Collection TimeReceived Time04/07/2025 11:17 PM EST Narrative Authorizing ProviderResult TypeResult StatusLuciano TastaldiPOC TESTINGFinal ResultPerforming OrganizationAddressCity/State/ZIP CodePhone Number [facility] [address] * (ABNORMAL) GLUCOSE, BLOOD (POC) (04/07/2025 4:48 PM EST)ComponentValueRef RangeTest MethodAnalysis TimePerformed AtPathologist SignatureGlucose, Point of Frty922(A)74 - 99 mg/dLMercy Health Perrysburg HospitalComment: Location:[address], [facility] The Accu-Chek Inform II glucose meter has not been approved for testing on patients receiving intensive medical intervention or therapy and results from this point of care glucose test should not be used for patient management decisions in these cases. ??Inaccurate results may also occur from other interfering factors, such as N-acetylcysteine (blood concentrations of greater than 5mg/dL), galactose, extremes of hematocrit (<10 or >65), or high doses of ascorbic acid (vitamin C) greater than 3mg/dL. ??Consider alternate testing mechanisms (e.g. core lab, blood gas instrument) in the above situations. Specimen (Source)Anatomical Location / LateralityCollection Method / Volume Collection TimeReceived Time04/07/2025 4:48 PM EST Narrative Authorizing ProviderResult TypeResult StatusLuciano TastaldiPOC TESTINGFinal ResultPerforming OrganizationAddressCity/State/ZIP CodePhone Number [facility] [address] * IR VASCULAR ACCESS TEAM MIDLINE INSERTION RADIO (04/07/2025 12:23 PM EST) Anatomical RegionLateralityModalityOther Narrative 04/07/2025 12:23 PM EST Jazz Hull RN 04/07/2025 12:26 PM MIDLINE INSERTION PROCEDURE NOTE - PICC TEAM NURSES DATE OF PROCEDURE: 04/07/2025 TIME OF PROCEDURE: 1223 ORDERING PHYSICIAN: Dominique Ibarra Indications for line placement: Intravenous access Condition of line placement: Sterile Primary Proceduralist: Clare Atwood RN Finance Teacher: Jazz Hull RN/ Reji Shrestha RN Pre-procedure Review: ALLERGIES Allergen Reactions Sumatriptan ?Other: See Comments ??Tachycardia fainting Tachycardia fainting Known history of Upper Venous Thrombosis: No Known history of Permanent Pacemaker or Automated Implanted Cardiac Device: No Previous breast surgery of lymph node dissection: No Estimated Glomerular Filtration Rate Date Value Ref Range Status 04/07/2025 90 >=60 mL/min/1.73m Final ??Comment: ??Estimated Glomerular Filtration Rate (eGFR) is calculated using the 2020 CKD-EPI creatinine equation. This equation utilizes serum creatinine, sex, and age as parameters. The creatinine assay has traceable calibration to isotope dilution-mass spectrometry. Refer to KDIGO guidelines for clinical interpretation. In patients with unstable renal function, e.g. those with acute kidney injury, the eGFR may not accurately reflect actual GFR. History of Renal Disease: No Ultrasound assessment complete: Yes Procedure Narrative Safe Practice: Hand hygiene per hospital policy: Yes Skin preparation used: Chloraprep (CHG + alcohol), allowed to dry Barriers used by Proceduralist and all assisting personnel: Yes UNIVERSAL PROTOCOL / SAFETY CHECKLIST Procedure to be Performed: midline Sign In: A Moment of CARE was completed. Appropriate PPE (Personal Protective Equipment) worn by all providers involved with the procedure. Special equipment not required. Patient/Surrogate Stated/Verified: Patient name, Date of , Relevant allergies, and The intended procedure Time Out: Relevant labs, photos, and/or imaging studies have been reviewed. Intended patient and procedure match the source document(s) (e.g. consent, H&P, associated studies [imaging, pathology]) match the intended patient and procedure. Consent obtained and matches the intended procedure. ??n/a Correct side/site has been marked and visible. Medications required for this procedure are verified. Fire risk assessed and interventions discussed. Implants: Correct implant(s) confirmed including size and side. Expiration date(s) reviewed. Sign Out: Specimens are all correctly labeled and sent. All instruments, equipment, possible retained foreign bodies are accounted for. Yes. The post-procedure plan of care has been communicated to the patient or surrogate and to patient's multidisciplinary team (including bedside nurse for hospitalized patients). Midline Catheter Placement: Brand: ??BARD ?Lot: ?? [id number] Number of lumens: 1 Type of Midline: Power Injectable Midline Lumen size: 4 Israeli Placement Technique: Lidocaine: Yes, ??Lidocaine 1% ??Volume 3 mL Subcutaneous Modified Seldinger Technique use to place line via the: Right Basilic Ultrasound Guidance: Yes Number of attempts at insertion: 1 Ensured control of guidewire during all aspects of the procedure: Yes Accounted for entire guidewire upon removal: Yes Internal length: 12 cm ? External length: 0 cm ? Trim length:12 cm Mid-Arm circumference: 34 centimeters Post insertion pain level related to procedure: 0 Action taken to address pain: None needed Verified placement: Positive blood return Line was flushed with 20 mL normal saline Line secured with: Securement device Sterile dressing applied and dated: Yes Sterile caps on all ports prior to leaving procedure area: Yes Specimens: None This patient has been educated that while midline catheters can sometimes be used for lab draws, it is not guaranteed. In some cases, blood may need to be drawn using a different method. ?? Complications: None Patient education materials: Given to patient Questions or problems: Page [phone] SIGNATURE: Jazz Hull RN PATIENT NAME: Mary Vick DATE: April 07, 2025 TIME: 12:23 PM PAGER: [phone] Authorizing ProviderResult TypeResult StatusLuciano TastaldiINTERVENTIONAL RADIOLOGYFinal Result * (ABNORMAL) GLUCOSE, BLOOD (POC) (04/07/2025 11:43 AM EST)ComponentValueRef RangeTest MethodAnalysis TimePerformed AtPathologist SignatureGlucose, Point of Crnv694(A)74 - 99 mg/dLMercy Health Perrysburg HospitalComment: Location:[facility], [address] [place] [address], [facility] The Accu-Chek Inform II glucose meter has not been approved for testing on patients receiving intensive medical intervention or therapy and results from this point of care glucose test should not be used for patient management decisions in these cases. ??Inaccurate results may also occur from other interfering factors, such as N-acetylcysteine (blood concentrations of greater than 5mg/dL), galactose, extremes of hematocrit (<10 or >65), or high doses of ascorbic acid (vitamin C) greater than 3mg/dL. ??Consider alternate testing mechanisms (e.g. core lab, blood gas instrument) in the above situations. Specimen (Source)Anatomical Location / LateralityCollection Method / Volume Collection TimeReceived Time04/07/2025 11:43 AM EST Narrative Authorizing ProviderResult TypeResult StatusLuciano TastaldiPOC TESTINGFinal ResultPerforming OrganizationAddressCity/State/ZIP CodePhone Number [facility] [address] * CT ABD/PEL W IVCON (04/07/2025 11:22 AM EST)Anatomical RegionLaterality ModalityAbdomenComputed TomographySpecimen (Source)Anatomical Location / LateralityCollection Method / VolumeCollection TimeReceived Time04/07/2025 11:22 AM EST Impressions 04/07/2025 12:49 PM EST IMPRESSION: EXPECTED POSTOPERATIVE CHANGES FROM HIATAL HERNIA REPAIR. ??NO LOCULATED INTRA-ABDOMINAL FLUID COLLECTION. MILD ILEUS, NOTING THAT CONTRAST REACHES COLON FROM PRIOR UPPER GI STUDY. INTERVAL DECOMPRESSION OF STOMACH STATUS POST NG/OG TUBE PLACEMENT. Wallcovering Hanger: PSCB ?? Transcribe Date/Time: Apr 07 2025 11:43A Dictated by : NATTY CHAVEZ MD This examination was interpreted and the report reviewed and electronically signed by: ALIA CHANDLER MD on Apr 07 2025 12:47PM ??EST Narrative 04/07/2025 12:49 PM EST * * *Final Report* * * DATE OF EXAM: Apr 07 2025 11:22AM ?? [facility] [place]- ??CT ABD/PEL W IVCON ??/ PROCEDURE REASON: Abdominal abscess/infection suspected ? * * * * Physician Interpretation * * * * EXAMINATION: ??CT ABDOMEN AND PELVIS WITH IV CONTRAST CLINICAL HISTORY: Large paraesophageal hernia (type IV) status post laparoscopic paraesophageal hernia repair with mesh, EGD, and gastropexy. 04/06/2025 upper GI: No leak, with findings showing GE junction likely just above the level of diaphragmatic hiatus. Leukocytosis. TECHNIQUE: CT of the abdomen and pelvis was performed using standard technique, scanning from just above the dome of the diaphragm to the symphysis pubis. MQ: ??CTAP_3 Contrast: IV: ??100 ml of Omnipaque 350 CT Radiation dose: Integrated Dose-length product (DLP) for this visit = ?? 762 mGy*cm. CT Dose Reduction Employed: Automated exposure control (AEC) COMPARISON: Upper GI signal contrast 04/06/2025. CT angio chest 01/21/2025. RESULT: Liver: No mass. Biliary: No bile duct dilation. Gallbladder present. Spleen: Multiple calcified granulomas. No splenomegaly. Pancreas: No mass or duct dilation. Adrenals: No mass. Kidneys: No mass, calculus or hydronephrosis. GI tract: Status post large hiatal hernia repair. Gastric drainage tube terminates in the gastric body. The stomach has been decompressed. There is residual high density barium in bowel from prior fluoroscopy study, which creates some streak artifact. No extravasated enteric contrast material seen. Note is made of a small ovoid dystrophic calcification of the diaphragmatic hiatus, which was present on preoperative imaging from 01/2025. Some mildly dilated small bowel in left lower quadrant, measuring up to 3.5 cm diameter, as well as mild gaseous distention of cecum measuring up to 9.5 cm. This may represent mild postoperative ileus, though prior enteric contrast does reach the colon. Lymph nodes: No abdominal or pelvic lymphadenopathy. Mesentery/Peritoneum: Right subdiaphragmatic foci of free air (3:24, 31, 34), compatible with recent surgery. No significant ascites or loculated collection. No discrete mass. Retroperitoneum: No mass. Vasculature: - Abdominal aorta and iliac arteries: Atherosclerotic calcifications without aneurysm. - Celiac and SMA: Atherosclerotic calcifications at the origins. - Portal venous system (SMV, splenic vein, portal vein and branches): Patent. - Hepatic veins: Patent. Pelvis: Urinary bladder distended with with mild nondependent intraluminal gas, suggesting recent instrumentation. No mass, ascites or fluid collection. Hysterectomy. Bones/Soft Tissues: * ??Gas foci in the left lateral body wall subcutaneous tissues (2:34, 2:48), likely postoperative. * ??Vertebra plana chronic compression deformity at T10 vertebral body. Lower thorax: A chest CT performed will be reported separately. Localizer images: No additional findings. Procedure Note Provider, [facility] - 04/07/2025 * * *Final Report* * * DATE OF EXAM: Apr 07 2025 11:22AM [facility] [place] ABD/PEL W IVCON / PROCEDURE REASON: Abdominal abscess/infection suspected * * * * Physician Interpretation * * * * EXAMINATION: CT ABDOMEN AND PELVIS WITH IV CONTRAST CLINICAL HISTORY: Large paraesophageal hernia (type IV) status post laparoscopic paraesophageal hernia repair with mesh, EGD, and gastropexy. 04/06/2025 upper GI: No leak, with findings showing GE junction likely just above the level of diaphragmatic hiatus. Leukocytosis. TECHNIQUE: CT of the abdomen and pelvis was performed using standard technique, scanning from just above the dome of the diaphragm to the symphysis pubis. MQ: CTAP_3 Contrast: IV: 100 ml of Omnipaque 350 CT Radiation dose: Integrated Dose-length product (DLP) for this visit = 762 mGy*cm. CT Dose Reduction Employed: Automated exposure control (AEC) COMPARISON: Upper GI signal contrast 04/06/2025. CT angio chest01/21/2025. RESULT: Liver: No mass. Biliary: No bile duct dilation. Gallbladder present. Spleen: Multiple calcified granulomas. No splenomegaly. Pancreas: No mass or duct dilation. Adrenals: No mass. Kidneys: No mass, calculus or hydronephrosis. GI tract: Status post large hiatal hernia repair. Gastric drainage tube terminates in the gastric body. The stomach has been decompressed. There is residual high density barium in bowel from prior fluoroscopy study, which creates some streak artifact. No extravasated enteric contrast material seen. Note is made of a small ovoid dystrophic calcification of the diaphragmatic hiatus, which was present on preoperative imaging from 01/2025. Some mildly dilated small bowel in left lower quadrant, measuring up to 3.5 cm diameter, as well as mild gaseous distention of cecum measuring up to 9.5 cm. This may represent mild postoperative ileus, though prior enteric contrast does reach the colon. Lymph nodes: No abdominal or pelvic lymphadenopathy. Mesentery/Peritoneum: Right subdiaphragmatic foci of free air (3:24, 31, 34), compatible with recent surgery. No significant ascites or loculated collection. No discrete mass. Retroperitoneum: No mass. Vasculature: - Abdominal aorta and iliac arteries: Atherosclerotic calcifications without aneurysm. - Celiac and SMA: Atherosclerotic calcifications at the origins. - Portal venous system (SMV, splenic vein, portal vein and branches): Patent. - Hepatic veins: Patent. Pelvis: Urinary bladder distended with with mild nondependent intraluminal gas, suggesting recent instrumentation. No mass, ascites or fluid collection. Hysterectomy. Bones/Soft Tissues: * Gas foci in the left lateral body wall subcutaneous tissues (2:34, 2:48), likely postoperative. * Vertebra plana chronic compression deformity at T10 vertebral body. Lower thorax: A chest CT performed will be reported separately. Localizer images: No additional findings. IMPRESSION IMPRESSION: EXPECTED POSTOPERATIVE CHANGES FROM HIATAL HERNIA REPAIR. NO LOCULATED INTRA-ABDOMINAL FLUID COLLECTION. MILD ILEUS, NOTING THAT CONTRAST REACHES COLON FROM PRIOR UPPER GI STUDY. INTERVAL DECOMPRESSION OF STOMACH STATUS POST NG/OG TUBE PLACEMENT. Wallcovering Hanger: REE Transcribe Date/Time: Apr 07 2025 11:43A Dictated by : NATTY CHAVEZ MD This examination was interpreted and the report reviewed and electronically signed by: ALIA CHANDLER MD on Apr 07 2025 12:47PM EST Authorizing ProviderResult TypeResult StatusLuciano TastaldiCT-PAMAFinal Result * CT CHEST W IVCON (04/07/2025 11:22 AM EST)Anatomical RegionLateralityModality ChestComputed TomographySpecimen (Source)Anatomical Location / Laterality Collection Method / VolumeCollection TimeReceived Time04/07/2025 11:22 AM EST Impressions 04/07/2025 7:44 PM EST IMPRESSION: Interval reduction of previously seen hiatal hernia with considerable amount of fluid and air in the posterior mediastinum which is likely postoperative in etiology. ??Short interval follow-up CT imaging suggested for reevaluation. Chronic interstitial lung disease possibly organizing pneumonia from drug reaction or prior infection. Left greater than right small dependent pleural effusions. Wallcovering Hanger: REE ?? Transcribe Date/Time: Apr 07 2025 ??7:30P Dictated by : JANIA GODOY MD This examination was interpreted and the report reviewed and electronically signed by: JANIA GODOY MD on Apr 07 2025 ??7:42PM ??EST Narrative 04/07/2025 7:44 PM EST * * *Final Report* * * DATE OF EXAM: Apr 07 2025 11:22AM ?? [facility] [place]- ??CT CHEST W IVCON ??/ PROCEDURE REASON: Chest trauma, blunt ? * * * * Physician Interpretation * * * * EXAMINATION: ??CHEST CT WITH CONTRAST CLINICAL HISTORY: Chest trauma, blunt Technique: ??Spiral CT acquisition of the chest from the thoracic inlet to the upper abdomen following IV contrast. MQ: ??CTCW_6 Contrast: ??100 mL Omnipaque [address] Radiation dose: Integrated Dose-length product (DLP) for this visit = ?? 762 mGy*cm CT Dose Reduction Employed: Automated exposure control (AEC) Comparison: Prior outside chest CT dated 01/21/2025 RESULT: Lines, tubes, and devices: ??Nasogastric tube courses below the diaphragm into the stomach. Lung parenchyma and airways: Diffuse bronchiectasis, patchy peripheral groundglass and septal thickening, lower lobe volume loss and peribronchial opacities from chronic interstitial lung disease possibly organizing pneumonia from drug reaction or prior infection. Pleural space: ??Left greater than right small dependent pleural effusions. Lower neck, lymph nodes, and mediastinum: ??The imaged thyroid gland is normal. ??No pathologically enlarged lymphadenopathy in the supraclavicular, axillary, mediastinal, or hilar regions. ??Small calcified nodes from old granulomatous disease. ??Interval reduction of previously seen hiatal hernia with considerable amount of fluid and air in the posterior mediastinum which is likely postoperative in etiology. Heart, pericardium, and thoracic vessels: ??The thoracic aorta and main pulmonary artery are normal in caliber. The cardiac chambers are normal in size. ??Moderate coronary artery atherosclerotic calcifications are noted, although the study is not optimized for coronary assessment. No pericardial effusion or thickening. Bones and soft tissues: Mild degenerative changes of the thoracic spine. ?? Lower thoracic vertebral body severe compression deformity unchanged. ?? Chronic displaced sternal fracture deformity. Upper abdomen: ??Upper abdominal findings within dedicated report. Localizer images: No additional findings. Procedure Note Provider, [facility] - 04/07/2025 * * *Final Report* * * DATE OF EXAM: Apr 07 2025 11:22AM [facility] [place] CT CHEST W IVCON / PROCEDURE REASON: Chest trauma, blunt * * * * Physician Interpretation * * * * EXAMINATION: CHEST CT WITH CONTRAST CLINICAL HISTORY: Chest trauma, blunt Technique: Spiral CT acquisition of the chest from the thoracic inlet to the upper abdomen following IV contrast. MQ: CTCW_6 Contrast: 100 mL Omnipaque [address] Radiation dose: Integrated Dose-length product (DLP) for this visit = 762 mGy*cm CT Dose Reduction Employed: Automated exposure control (AEC) Comparison: Prior outside chest CT dated 01/21/2025 RESULT: Lines, tubes, and devices: Nasogastric tube courses below the diaphragm into the stomach. Lung parenchyma and airways: Diffuse bronchiectasis, patchy peripheral groundglass and septal thickening, lower lobe volume loss and peribronchial opacities from chronic interstitial lung disease possibly organizing pneumonia from drug reaction or prior infection. Pleural space: Left greater than right small dependent pleuraleffusions. Lower neck, lymph nodes, and mediastinum: The imaged thyroid gland is normal. No pathologically enlarged lymphadenopathy in the supraclavicular, axillary, mediastinal, or hilar regions. Small calcified nodes from old granulomatous disease. Interval reduction of previously seen hiatal hernia with considerable amount of fluid and air in the posterior mediastinum which is likely postoperative in etiology. Heart, pericardium, and thoracic vessels: The thoracic aorta and main pulmonary artery are normal in caliber. The cardiac chambers are normal in size. Moderate coronary artery atherosclerotic calcifications are noted, although the study is not optimized for coronary assessment. No pericardial effusion or thickening. Bones and soft tissues: Mild degenerative changes of the thoracic spine. Lower thoracic vertebral body severe compression deformity unchanged. Chronic displaced sternal fracture deformity. Upper abdomen: Upper abdominal findings within dedicated report. Localizer images: No additional findings. IMPRESSION IMPRESSION: Interval reduction of previously seen hiatal hernia with considerable amount of fluid and air in the posterior mediastinum which is likely postoperative in etiology. Short interval follow-up CT imaging suggested for reevaluation. Chronic interstitial lung disease possibly organizing pneumonia from drug reaction or prior infection. Left greater than right small dependent pleural effusions. Wallcovering Hanger: REE Transcribe Date/Time: Apr 07 2025 7:30P Dictated by : JANIA GODOY MD This examination was interpreted and the report reviewed and electronically signed by: JANIA GODOY MD on Apr 07 2025 7:42PM EST Authorizing ProviderResult TypeResult StatusLuciano TastaldiCT-PAMAFinal Result * XR ABDOMEN 1V SUPINE (04/07/2025 9:41 AM EST)Anatomical RegionLaterality ModalityAbdomenRadiographic ImagingSpecimen (Source)Anatomical Location / LateralityCollection Method / VolumeCollection TimeReceived Time04/07/2025 9:41 AM EST Impressions 04/07/2025 11:10 AM EST IMPRESSION: Study performed for localization of tube. Interval placement of gastric drainage tube, tip and side-port project in region of gastric body. There remains marked gastric distention with some layering fluid and contrast material. There is residual contrast in the hepatic flexure which is mildly dilated, and could represent ileus as previously queried. Hypoventilatory changes in lung bases. Wallcovering Hanger: REE ?? Transcribe Date/Time: Apr 07 2025 11:06A Dictated by : LAIA CHANDLER MD This examination was interpreted and the report reviewed and electronically signed by: ALIA CHANDLER MD on Apr 07 2025 11:08AM ??EST Narrative 04/07/2025 11:10 AM EST * * *Final Report* * * DATE OF EXAM: Apr 07 2025 ??9:41AM ?? NENITA ?? 5289 ??- ??XR ABDOMEN 1V SUPINE ??/ PROCEDURE REASON: Evaluate tube, line or lead position ? * * * * Physician Interpretation * * * * ABDOMEN, 1 VIEW labeled 04/07/2025 0929 hours CLINICAL INFORMATION: Evaluate tube, line or lead position. TECHNIQUE: Supine frontal view, 1 image(s) COMPARISON: 04/07/2025 0923 hours RESULT: See impression. Procedure Note Provider, [facility] - 04/07/2025 * * *Final Report* * * DATE OF EXAM: Apr 07 2025 9:41AM NENITA 5289 - XR ABDOMEN 1V SUPINE / PROCEDURE REASON: Evaluate tube, line or lead position * * * * Physician Interpretation * * * * ABDOMEN, 1 VIEW labeled 04/07/2025 0929 hours CLINICAL INFORMATION: Evaluate tube, line or lead position. TECHNIQUE: Supine frontal view, 1 image(s) COMPARISON: 04/07/2025 0923 hours RESULT: See impression. IMPRESSION IMPRESSION: Study performed for localization of tube. Interval placement of gastric drainage tube, tip and side-port project in region of gastric body. There remains marked gastric distention with some layering fluid and contrast material. There is residual contrast in the hepatic flexure which is mildly dilated, and could represent ileus as previouslyqueried. Hypoventilatory changes in lung bases. Wallcovering Hanger: PSCB Transcribe Date/Time: Apr 07 2025 11:06A Dictated by : ALIA CHANDLER MD This examination was interpreted and the report reviewed and electronically signed by: ALIA CHANDLER MD on Apr 07 2025 11:08AM EST Authorizing ProviderResult TypeResult StatusLuciano TastaldiRAD-PAMAFinal Result * XR ABDOMEN 1V SPECIFY (04/07/2025 9:30 AM EST)Anatomical RegionLaterality ModalityAbdomenRadiographic ImagingSpecimen (Source)Anatomical Location / LateralityCollection Method / VolumeCollection TimeReceived Time04/07/2025 9:30 AM EST Impressions 04/07/2025 11:09 AM EST IMPRESSION: There is marked distention of stomach, with layering fluid/enteric contrast material. Consider NG decompression. Few loops of dilated bowel in abdomen, somewhat difficult to differentiate given superimposition of segments, though at least a few segments of mildly dilated small bowel are queried in left abdomen measuring up to 3.5 cm. There is some residual enteric contrast throughout in mildly distended colon. Findings may represent postoperative ileus. Few patchy bibasilar opacities are queried. There may be a trace right pleural effusion as well. COMMUNICATION: ??Communicated with Sera [place] on 04/07/2025 11:05 AM ?? via verbal communication. Wallcovering Hanger: REE ?? Transcribe Date/Time: Apr 07 2025 11:00A Dictated by : ALIA CHANDLER MD This examination was interpreted and the report reviewed and electronically signed by: ALIA CHANDLER MD on Apr 07 2025 11:06AM ??EST Narrative 04/07/2025 11:09 AM EST * * *Final Report* * * DATE OF EXAM: Apr 07 2025 ??9:30AM ?? NENITA ?? 5288 ??- ??XR ABDOMEN 1V SPECIFY ??/ PROCEDURE REASON: Abdominal distension ? * * * * Physician Interpretation * * * * ABDOMEN, 1 VIEW labeled 04/07/2025 0923 hours CLINICAL INFORMATION: Abdominal distension. TECHNIQUE: Portable upright frontal view, 1 image(s) COMPARISON: Upper GI 04/06/2025 RESULT: See impression. Procedure Note Provider, [facility] [place] - 04/07/2025 * * *Final Report* * * DATE OF EXAM: Apr 07 2025 9:30AM NENITA 5288 - XR ABDOMEN 1V SPECIFY / PROCEDURE REASON: Abdominal distension * * * * Physician Interpretation * * * * ABDOMEN, 1 VIEW labeled 04/07/2025 0923 hours CLINICAL INFORMATION: Abdominal distension. TECHNIQUE: Portable upright frontal view, 1 image(s) COMPARISON: Upper GI 04/06/2025 RESULT: See impression. IMPRESSION IMPRESSION: There is marked distention of stomach, with layering fluid/enteric contrast material. Consider NG decompression. Few loops of dilated bowel in abdomen, somewhat difficult to differentiate given superimposition of segments, though at least a few segments of mildly dilated small bowel are queried in left abdomen measuring up to 3.5 cm. There is some residual enteric contrast throughout in mildly distended colon. Findings may represent postoperative ileus. Few patchy bibasilar opacities are queried. There may be a trace right pleural effusion as well. COMMUNICATION: Communicated with Sera [place] on 04/07/2025 11:05 AM via verbal communication. Wallcovering Hanger: REE Transcribe Date/Time: Apr 07 2025 11:00A Dictated by : ALIA CHANDLER MD This examination was interpreted and the report reviewed and electronically signed by: ALIA CHANDLER MD on Apr 07 2025 11:06AM EST Authorizing ProviderResult TypeResult StatusLuciano TastaldiRAD-PAMAFinal Result * XR CHEST 1V FRONTAL PORT (04/07/2025 8:20 AM EST)Anatomical RegionLaterality ModalityChestRadiographic ImagingSpecimen (Source)Anatomical Location / LateralityCollection Method / VolumeCollection TimeReceived Time04/07/2025 8:20 AM EST Impressions 04/07/2025 10:21 AM EST IMPRESSION: Lines, Tubes, and Devices: ??None Lungs and Pleura: ??Bilateral lung opacities are not significantly changed. No pneumothorax. Cardiomediastinal silhouette: ??Stable cardiac silhouette. Wallcovering Hanger: REE ?? Transcribe Date/Time: Apr 07 2025 10:18A Dictated by : JANIA GODOY MD This examination was interpreted and the report reviewed and electronically signed by: JANIA GODOY MD on Apr 07 2025 10:19AM ??EST Narrative 04/07/2025 10:21 AM EST * * *Final Report* * * DATE OF EXAM: Apr 07 2025 ??8:20AM ?? NENITA ?? 5376 ??- ??XR CHEST 1V FRONTAL PORT ??/ PROCEDURE REASON: Shortness of breath ? * * * * Physician Interpretation * * * * CHEST RADIOGRAPH (PORTABLE SINGLE VIEW AP) Exam Date/Time: ??04/07/2025 8:20 AM Indications: ?? Shortness of breath MQ: ??XCPMC_6 Comparison: ??2 days earlier RESULTS: See Impression. Procedure Note Provider, [facility] [place] - 04/07/2025 * * *Final Report* * * DATE OF EXAM: Apr 07 2025 8:20AM NENITA 5376 - XR CHEST 1V FRONTAL PORT / PROCEDURE REASON: Shortness of breath * * * * Physician Interpretation * * * * CHEST RADIOGRAPH (PORTABLE SINGLE VIEW AP) Exam Date/Time: 04/07/2025 8:20 AM Indications: Shortness of breath MQ: XCPMC_6 Comparison: 2 days earlier RESULTS: See Impression. IMPRESSION IMPRESSION: Lines, Tubes, and Devices: None Lungs and Pleura: Bilateral lung opacities are not significantly changed. No pneumothorax. Cardiomediastinal silhouette: Stable cardiac silhouette. Wallcovering Hanger: REE Transcribe Date/Time: Apr 07 2025 10:18A Dictated by : JANIA GODOY MD This examination was interpreted and the report reviewed and electronically signed by: JANIA GODOY MD on Apr 07 2025 10:19AM EST Authorizing ProviderResult TypeResult StatusLuciano TastaldiRAD-PAMAFinal Result * (ABNORMAL) C-REACTIVE PROTEIN (04/07/2025 7:14 AM EST)ComponentValueRef Range Test MethodAnalysis TimePerformed AtPathologist QauhwvovyBGQ20.7(H)<0.9 mg/dL 04/07/2025 9:36 AM ESTNEW[facility] LABSpecimen (Source)Anatomical Location / LateralityCollection Method / VolumeCollection TimeReceived Time BloodBLOOD SPECIMEN / UnknownVenipuncture / Wrzrycp0604/07/2025 7:14 AM EST 04/07/2025 8:47 AM EST Narrative Authorizing ProviderResult TypeResult StatusLuciano TastaldiLABORATORYFinal ResultPerforming OrganizationAddressCity/State/ZIP CodePhone Number [facility] [address] [place] [address], * (ABNORMAL) PHOSPHORUS INORGANIC (04/07/2025 7:14 AM EST)ComponentValueRef RangeTest MethodAnalysis TimePerformed AtPathologist SignaturePhosphorus2.2(L) 2.7 - 4.8 mg/dL04/07/2025 9:36 AM [facility] LABSpecimen (Source)Anatomical Location / LateralityCollection Method / VolumeCollection TimeReceived TimeBloodBLOOD SPECIMEN / UnknownVenipuncture / Biihcep1604/07/2025 7:14 AM EST04/07/2025 8:47 AM EST Narrative Authorizing ProviderResult TypeResult StatusLuciano TastaldiLABORATORYFinal ResultPerforming OrganizationAddressCity/State/ZIP CodePhone Number [facility] [address] [place] [address], * (ABNORMAL) MAGNESIUM (04/07/2025 7:14 AM EST)ComponentValueRef RangeTest MethodAnalysis TimePerformed AtPathologist SignatureMagnesium2.6(H)1.7 - 2.3 mg/dL04/07/2025 9:36 AM [facility] LABSpecimen (Source) Anatomical Location / LateralityCollection Method / VolumeCollection Time Received TimeBloodBLOOD SPECIMEN / UnknownVenipuncture / Krkcgpc0504/07/2025 7:14 AM EST04/07/2025 8:47 AM EST Narrative Authorizing ProviderResult TypeResult StatusLuciano TastaldiLABORATORYFinal ResultPerforming OrganizationAddressty/State/ZIP CodePhone Number [facility] [address] * (ABNORMAL) COMPLETE BLOOD COUNT AND DIFFERENTIAL (04/07/2025 7:14 AM EST) ComponentValueRef RangeTest MethodAnalysis TimePerformed AtPathologist OchrizitkMEB29.84(H)3.70 - 11.00 k/uL04/07/2025 9:01 AM [facility] LABRBC3.84(L)3.90 - 5.20 m/uL04/07/2025 9:01 AM [facility] TPMNpvrxpxjxi82.2(L)11.5 - 15.5 g/dL04/07/2025 9:01 AM [facility] RGZYzdreucgol90.2(L)36.0 - 46.0 %04/07/2025 9:01 AM [facility] FUDLHF00.780.0 - 100.0 fL04/07/2025 9:01 AM [facility] LAB MCH29.226.0 - 34.0 pg04/07/2025 9:01 AM [facility] DUYGEHT12.8 30.5 - 36.0 g/dL04/07/2025 9:01 AM [facility] LABRDW-CV17.4(H) 11.5 - 15.0 %04/07/2025 9:01 AM [facility] LABPlatelet Ftxxi651 150 - 400 k/uL04/07/2025 9:01 AM [facility] SCFGGF38.89.0 - 12.7 fL04/07/2025 9:01 AM [facility] LABNeutrophils %87.3%04/07/2025 9:01 AM [facility] LABAbs Neut17.34(H)1.45 - 7.50 k/uL04/07/2025 9:01 AM [facility] LABLymphocytes %4.5%04/07/2025 9:[address] [facility] LABAbs Lymph0.89(L)1.00 - 4.00 k/uL04/07/2025 9:01 AM [facility] LABMonocytes %6.8%04/07/2025 9:01 AM [facility] LABAbs Mono1.35(H)<0.87 k/uL04/07/2025 9:01 AM [facility] LABEosinophils %0.2%04/07/2025 9:01 AM [facility] LABAbs Eosin0.04<0.46 k/uL04/07/2025 9:01 AM [facility] LABBasophils % 0.3%04/07/2025 9:01 AM [facility] LABAbs Baso0.05<0.11 k/uL 04/07/2025 9:01 AM [facility] LABImmature Granulocytes %0.9% 04/07/2025 9:01 AM [facility] LABAbs Immature Gran0.17(H)<0.10 k/uL11/ 9:01 AM [facility] LABNRBC0.0/100 WBC04/07/2025 9:01 AM [facility] LABAbsolute nRBC<0.01<0.01 k/uL04/07/2025 9:01 AM [facility] LABDiff ZuctGlhj19/16/2025 9:01 AM EST [facility] LABSpecimen (Source)Anatomical Location / Laterality Collection Method / VolumeCollection TimeReceived TimeBloodBLOOD SPECIMEN / UnknownVenipuncture / Oqzorur5304/07/2025 7:14 AM EST04/07/2025 8:47 AM EST Narrative Authorizing ProviderResult TypeResult StatusLuciano TastaldiLABORATORYFinal ResultPerforming OrganizationAddressCity/State/ZIP CodePhone Number [facility] [address] * (ABNORMAL) COMPREHENSIVE METABOLIC PANEL (04/07/2025 7:14 AM EST)Component ValueRef RangeTest MethodAnalysis TimePerformed AtPathologist Signature Protein, Total6.56.3 - 8.0 g/dL04/07/2025 9:36 AM [facility] LAB Albumin3.7(L)3.9 - 4.9 g/dL04/07/2025 9:36 AM [facility] LAB Calcium, Total7.8(L)8.5 - 10.2 mg/dL04/07/2025 9:36 AM [facility] LABBilirubin, Total0.60.2 - 1.3 mg/dL04/07/2025 9:36 AM [facility] LABAlkaline Okkmmpafsba7232 - 123 U/L106/07/2024 9:[address] [facility] TNSNFP47(H)13 - 35 U/L106/07/2024 9:36 AM [facility] UCDVKN970 - 38 U/L106/07/2024 9:36 AM [facility] LAB Xuoyals080(H)74 - 99 mg/dL04/07/2025 9:36 AM [facility] LAB Comment: The [place] [employer] (ADA) provides guidance for cutoff [...] Standards of Medical Care in Diabetes 2016, [place] [employer]. Diabetes Care. 2016.39(Suppl 1). VZV400 - 21 mg/dL04/07/2025 9:36 AM [facility] LABCreatinine0.72 0.58 - 0.96 mg/dL04/07/2025 9:36 AM [facility] YBHKzelgf116655 - 144 mmol/L106/07/2024 9:36 AM [facility] LABPotassium3.93.7 - 5.1 mmol/L106/07/2024 9:36 AM [facility] WWTQabdusbz27105 - 107 mmol/L 04/07/2025 9:36 AM [facility] OMISL01241 - 30 mmol/L106/07/2024 9:36 AM [facility] LABAnion Yak674 - 15 mmol/L106/07/2024 9:36 AM [facility] LABEstimated Glomerular Filtration Rate90>=60 mL/min/1.73m 04/07/2025 9:36 AM [facility] LABComment:Estimated Glomerular Filtration Rate (eGFR) is calculated [...] VolumeCollection TimeReceived TimeBloodBLOOD SPECIMEN / UnknownVenipuncture / Skftnqc7704/07/2025 7:14 AM EST04/07/2025 8:47 AM EST Narrative Authorizing ProviderResult TypeResult StatusBrian Potocnik MDLABORATORYFinal ResultPerforming OrganizationAddressCity/State/ZIP CodePhone Number [facility] [address] [place] [address], * (ABNORMAL) HIGH SENSITIVITY TROPONIN T (04/07/2025 7:14 AM EST)ComponentValue Ref RangeTest MethodAnalysis TimePerformed AtPathologist SignatureTNT High Ydllqkgqyjs67(H)<12 ng/L106/07/2024 9:36 AM ESTNEW[facility] Specimen (Source)Anatomical Location / LateralityCollection Method / Volume Collection TimeReceived TimeBloodBLOOD SPECIMEN / UnknownVenipuncture / Oekzkte2504/07/2025 7:14 AM EST04/07/2025 8:47 AM EST Narrative Authorizing ProviderResult TypeResult StatusLuciano TastaldiLABORATORYFinal ResultPerforming OrganizationAddressCity/State/ZIP CodePhone Number [facility] [address] [place] [address], * (ABNORMAL) GLUCOSE, BLOOD (POC) (04/07/2025 5:23 AM EST)ComponentValueRef RangeTest MethodAnalysis TimePerformed AtPathologist SignatureGlucose, Point of Mdau140(A)74 - 99 mg/dLMercy Health Perrysburg HospitalComment: Location:[facility], [address] [place] [address], [facility] The Accu-Chek Inform II glucose meter has not been approved for testing on patients receiving intensive medical intervention or therapy and results from this point of care glucose test should not be used for patient management decisions in these cases. ??Inaccurate results may also occur from other interfering factors, such as N-acetylcysteine (blood concentrations of greater than 5mg/dL), galactose, extremes of hematocrit (<10 or >65), or high doses of ascorbic acid (vitamin C) greater than 3mg/dL. ??Consider alternate testing mechanisms (e.g. core lab, blood gas instrument) in the above situations. Specimen (Source)Anatomical Location / LateralityCollection Method / Volume Collection TimeReceived Time04/07/2025 5:23 AM EST Narrative Authorizing ProviderResult TypeResult StatusLuciano TastaldiPOC TESTINGFinal ResultPerforming OrganizationAddressty/State/ZIP CodePhone Number [facility] [address] * (ABNORMAL) GLUCOSE, BLOOD (POC) (04/06/2025 11:24 PM EST)ComponentValueRef RangeTest MethodAnalysis TimePerformed AtPathologist SignatureGlucose, Point of Oncr648(A)74 - 99 mg/dLMercy Health Perrysburg HospitalComment: Location:[address], [facility] The Accu-Chek Inform II glucose meter has not been approved for testing on patients receiving intensive medical intervention or therapy and results from this point of care glucose test should not be used for patient management decisions in these cases. ??Inaccurate results may also occur from other interfering factors, such as N-acetylcysteine (blood concentrations of greater than 5mg/dL), galactose, extremes of hematocrit (<10 or >65), or high doses of ascorbic acid (vitamin C) greater than 3mg/dL. ??Consider alternate testing mechanisms (e.g. core lab, blood gas instrument) in the above situations. Specimen (Source)Anatomical Location / LateralityCollection Method / Volume Collection TimeReceived Time04/06/2025 11:24 PM EST Narrative Authorizing ProviderResult TypeResult StatusLuciano TastaldiPOC TESTINGFinal ResultPerforming OrganizationAddressCity/State/ZIP CodePhone Number [facility] [address] * (ABNORMAL) GLUCOSE, BLOOD (POC) (04/06/2025 5:31 PM EST)ComponentValueRef RangeTest MethodAnalysis TimePerformed AtPathologist SignatureGlucose, Point of Tztw644(A)74 - 99 mg/dLMercy Health Perrysburg HospitalComment: Location:[address], [facility] The Accu-Chek Inform II glucose meter has not been approved for testing on patients receiving intensive medical intervention or therapy and results from this point of care glucose test should not be used for patient management decisions in these cases. ??Inaccurate results may also occur from other interfering factors, such as N-acetylcysteine (blood concentrations of greater than 5mg/dL), galactose, extremes of hematocrit (<10 or >65), or high doses of ascorbic acid (vitamin C) greater than 3mg/dL. ??Consider alternate testing mechanisms (e.g. core lab, blood gas instrument) in the above situations. Specimen (Source)Anatomical Location / LateralityCollection Method / Volume Collection TimeReceived Time04/06/2025 5:31 PM EST Narrative Authorizing ProviderResult TypeResult StatusLuciano TastaldiPOC TESTINGFinal ResultPerforming OrganizationAddressCity/State/ZIP CodePhone Number [facility] [address] * (ABNORMAL) GLUCOSE, BLOOD (POC) (04/06/2025 1:20 PM EST)ComponentValueRef RangeTest MethodAnalysis TimePerformed AtPathologist SignatureGlucose, Point of Mnzr594(A)74 - 99 mg/dLMercy Health Perrysburg HospitalComment: Location:[facility], [address] [place] [address], [facility] The Accu-Chek Inform II glucose meter has not been approved for testing on patients receiving intensive medical intervention or therapy and results from this point of care glucose test should not be used for patient management decisions in these cases. ??Inaccurate results may also occur from other interfering factors, such as N-acetylcysteine (blood concentrations of greater than 5mg/dL), galactose, extremes of hematocrit (<10 or >65), or high doses of ascorbic acid (vitamin C) greater than 3mg/dL. ??Consider alternate testing mechanisms (e.g. core lab, blood gas instrument) in the above situations. Specimen (Source)Anatomical Location / LateralityCollection Method / Volume Collection TimeReceived Time04/06/2025 1:20 PM EST Narrative Authorizing ProviderResult TypeResult StatusLuciano TastaldiPOC TESTINGFinal ResultPerforming OrganizationAddressCity/State/ZIP CodePhone Number [facility] [address] * XR UPPER GI SINGLE CONTRAST (04/06/2025 11:20 AM EST)Anatomical Region LateralityModalityRadiographic ImagingSpecimen (Source)Anatomical Location / LateralityCollection Method / VolumeCollection TimeReceived Time04/06/2025 11:20 AM EST Impressions 04/06/2025 1:30 PM EST IMPRESSION: NO LEAK. ANGULATED DISTAL ESOPHAGUS IN LOWER MEDIASTINUM, WITH GE JUNCTION LIKELY SITTING JUST ABOVE THE LEVEL OF DIAPHRAGMATIC HIATUS, DESCRIBED COMMUNICATION: ??Communicated with JOO IYERCHITRAVANESSA on 04/06/2025 11:27 AM via verbal communication. Wallcovering Hanger: REE ?? Transcribe Date/Time: Apr 06 2025 11:23A Dictated by : KAYLA TALBOT MD This examination was interpreted and the report reviewed and electronically signed by: ALIA CHANDLER MD on Apr 06 2025 ??1:28PM ??EST Narrative 04/06/2025 1:30 PM EST * * *Final Report* * * DATE OF EXAM: Apr 06 2025 11:20AM ?? HGX ?? 5380 ??- ??XR UPPER GI SINGLE CONTRAST ??/ PROCEDURE REASON: Assess for postoperative complication or leak ? * * * * Physician Interpretation * * * * UPPER GI HISTORY: Status post Type IV hiatal hernia repair. COMPARISON: Esophagram 02/28/2025, CT 01/21/2025. TECHNIQUE: The patient ingested water-soluble contrast followed by low density barium under intermittent fluoroscopic monitoring. Contrast: ORAL: ??50 ml of OMNIPAQUE 350 ORAL: ??50 ml of EZPAQUE Fluoroscopy radiation summary: Fluoroscopy time: 0:56 (min:sec). Air kerma: 20.2 mGy. RESULT: Abap Developer: Moderate gaseous distention of stomach. There are several loops of mildly dilated small bowel in midabdomen, likely due to postoperative ileus. Luminal contrast transits to the stomach and proximal small bowel without leak or obstruction. Of note, the distal esophagus has a somewhat horizontal configuration, and the gastroesophageal junction itself appears to lie just above the expected diaphragmatic hiatus. This may relate to postoperative anatomy/lie. Staff Physician: Dr. Chandler was present for the critical portions of the procedure and was immediately available throughout the remainder of the procedure. Procedure Note Provider, [facility] [place] - 04/06/2025 * * *Final Report* * * DATE OF EXAM: Apr 06 2025 11:20AM HGX 5380 - XR UPPER GI SINGLE CONTRAST / PROCEDURE REASON: Assess for postoperative complication or leak * * * * Physician Interpretation * * * * UPPER GI HISTORY: Status post Type IV hiatal hernia repair. COMPARISON: Esophagram 02/28/2025, CT 01/21/2025. TECHNIQUE: The patient ingested water-soluble contrast followed by low density barium under intermittent fluoroscopic monitoring. Contrast: ORAL: 50 ml of OMNIPAQUE 350 ORAL: 50 ml of EZPAQUE Fluoroscopy radiation summary: Fluoroscopy time: 0:56 (min:sec). Air kerma: 20.2 mGy. RESULT: Abap Developer: Moderate gaseous distention of stomach. There are several loops of mildly dilated small bowel in midabdomen, likely due to postoperative ileus. Luminal contrast transits to the stomach and proximal small bowel without leak or obstruction. Of note, the distal esophagus has a somewhat horizontal configuration, and the gastroesophageal junction itself appears to lie just above the expected diaphragmatic hiatus. This may relate to postoperative anatomy/lie. Staff Physician: Dr. Chandler was present for the critical portions of the procedure and was immediately available throughout the remainder of the procedure. IMPRESSION IMPRESSION: NO LEAK. ANGULATED DISTAL ESOPHAGUS IN LOWER MEDIASTINUM, WITH GE JUNCTION LIKELY SITTING JUST ABOVE THE LEVEL OF DIAPHRAGMATIC HIATUS, DESCRIBED COMMUNICATION: Communicated with JOO BALES on 04/06/2025 11:27 AM via verbal communication. Wallcovering Hanger: REE Transcribe Date/Time: Apr 06 2025 11:23A Dictated by : KAYLA TALBOT MD This examination was interpreted and the report reviewed and electronically signed by: ALIA CHANDLER MD on Apr 06 2025 1:28PM EST Authorizing ProviderResult TypeResult StatusLucuniversal health services TastaldiRAD-PAMAFinal Result * (ABNORMAL) C-REACTIVE PROTEIN (04/06/2025 7:14 AM EST)ComponentValueRef Range Test MethodAnalysis TimePerformed AtPathologist SignatureCRP8.6(H)<0.9 mg/dL 04/06/2025 10:11 AM [facility] LABSpecimen (Source)Anatomical Location / LateralityCollection Method / VolumeCollection TimeReceived Time BloodBLOOD SPECIMEN / UnknownVenipuncture / Fvkicaz2104/06/2025 7:14 AM EST 04/06/2025 8:28 AM EST Narrative Authorizing ProviderResult TypeResult StatusLuciano TastaldiLABORATORYFinal ResultPerforming OrganizationAddressCity/State/ZIP CodePhone Number [facility] [address] * (ABNORMAL) PHOSPHORUS INORGANIC (04/06/2025 7:14 AM EST)ComponentValueRef RangeTest MethodAnalysis TimePerformed AtPathologist SignaturePhosphorus1.7(L) 2.7 - 4.8 mg/dL04/06/2025 10:11 AM [facility] LABSpecimen (Source)Anatomical Location / LateralityCollection Method / VolumeCollection TimeReceived TimeBloodBLOOD SPECIMEN / UnknownVenipuncture / Fetmylo6504/06/2025 7:14 AM EST04/06/2025 8:28 AM EST Narrative Authorizing ProviderResult TypeResult StatusLuciano TastaldiLABORATORYFinal ResultPerforming OrganizationAddressCity/State/ZIP CodePhone Number [facility] [address] [phone], * MAGNESIUM (04/06/2025 7:14 AM EST)ComponentValueRef RangeTest MethodAnalysis TimePerformed AtPathologist SignatureMagnesium2.31.7 - 2.3 mg/dL04/06/2025 10:11 AM [facility] LABSpecimen (Source)Anatomical Location / LateralityCollection Method / VolumeCollection TimeReceived TimeBloodBLOOD SPECIMEN / UnknownVenipuncture / Xxbfxqd4304/06/2025 7:14 AM EST04/06/2025 8:28 AM EST Narrative Authorizing ProviderResult TypeResult StatusLuciano TastaldiLABORATORYFinal ResultPerforming OrganizationAddressCity/State/ZIP CodePhone Number [facility] [address] [phone], * (ABNORMAL) COMPLETE BLOOD COUNT AND DIFFERENTIAL (04/06/2025 7:14 AM EST) ComponentValueRef RangeTest MethodAnalysis TimePerformed AtPathologist RnrhkpiczAMY01.75(H)3.70 - 11.00 k/uL04/06/2025 9:21 AM [facility] LABRBC3.65(L)3.90 - 5.20 m/uL04/06/2025 9:21 AM [facility] YUWUsuctsmfem63.8(L)11.5 - 15.5 g/dL04/06/2025 9:21 AM [facility] VUTMqbhphhpkn86.8(L)36.0 - 46.0 %04/06/2025 9:21 AM [facility] DNRPNY70.680.0 - 100.0 fL04/06/2025 9:21 AM [facility] LAB MCH29.626.0 - 34.0 pg04/06/2025 9:21 AM [facility] TAQLDPB85.0 30.5 - 36.0 g/dL04/06/2025 9:21 AM [facility] LABRDW-CV17.8(H) 11.5 - 15.0 %04/06/2025 9:21 AM [facility] LABPlatelet Olkcs492 150 - 400 k/uL04/06/2025 9:21 AM [facility] AYGTEV34.19.0 - 12.7 fL04/06/2025 9:21 AM [facility] LABNeutrophils %80.5%04/06/2025 9:21 AM [facility] LABAbs Neut11.08(H)1.45 - 7.50 k/uL04/06/2025 9:21 AM [facility] LABLymphocytes %8.4%04/06/2025 9:21 AM [facility] LABAbs Lymph1.151.00 - 4.00 k/uL04/06/2025 9:[address] [facility] LABMonocytes %9.2%04/06/2025 9:21 AM [facility] LABAbs Mono1.27(H)<0.87 k/uL04/06/2025 9:21 AM [facility] LABEosinophils %0.7%04/06/2025 9:21 AM [facility] LABAbs Eosin 0.09<0.46 k/uL04/06/2025 9:21 AM [facility] LABBasophils %0.3% 04/06/2025 9:21 AM [facility] LABAbs Baso0.04<0.11 k/uL 04/06/2025 9:21 AM [facility] LABImmature Granulocytes %0.9% 04/06/2025 9:21 AM [facility] LABAbs Immature Gran0.12(H)<0.10 k/uL04/06/2025 9:21 AM [facility] LABNRBC0.0/100 WBC04/06/2025 9:21 AM [facility] LABAbsolute nRBC<0.01<0.01 k/uL04/06/2025 9:21 AM [facility] LABDiff KslzOjai00/15/2025 9:21 AM EST [facility] LABSpecimen (Source)Anatomical Location / Laterality Collection Method / VolumeCollection TimeReceived TimeBloodBLOOD SPECIMEN / UnknownVenipuncture / Tdavmdp8104/06/2025 7:14 AM EST04/06/2025 8:26 AM EST Narrative Authorizing ProviderResult TypeResult StatusLuciano TastaldiLABORATORYFinal ResultPerforming OrganizationAddressCity/State/ZIP CodePhone Number [facility] [address] * (ABNORMAL) COMPREHENSIVE METABOLIC PANEL (04/06/2025 7:14 AM EST)Component ValueRef RangeTest MethodAnalysis TimePerformed AtPathologist Signature Protein, Total6.2(L)6.3 - 8.0 g/dL04/06/2025 10:11 AM [facility] LABAlbumin3.7(L)3.9 - 4.9 g/dL04/06/2025 10:11 AM [facility] LAB Calcium, Total8.0(L)8.5 - 10.2 mg/dL04/06/2025 10:11 AM [facility] LABBilirubin, Total0.50.2 - 1.3 mg/dL04/06/2025 10:11 AM [facility] LABAlkaline Nsmaiwwznwo4326 - 123 U/L106/06/2024 10:11 AM [facility] LXTKBV94(H)13 - 35 U/L106/06/2024 10:11 AM [facility] LHLMOT95(H)7 - 38 U/L106/06/2024 10:11 AM [facility] UXDUrpvwex9221 - 99 mg/dL04/06/2025 10:11 [facility] Comment: The [place] [employer] (ADA) provides guidance for cutoff [...] Standards of Medical Care in Diabetes 2016, [place] [employer]. Diabetes Care. 2016.39(Suppl 1). CPH920 - 21 mg/dL04/06/2025 10:11 AM [facility] LABCreatinine0.66 0.58 - 0.96 mg/dL04/06/2025 10:11 AM [facility] RSHWmakga351107 - 144 mmol/L106/06/2024 10:11 AM [facility] LABPotassium4.13.7 - 5.1 mmol/L106/06/2024 10:11 AM [facility] OWWOkrqbmco54851 - 107 mmol/L 04/06/2025 10:11 AM [facility] LSCEA83397 - 30 mmol/L106/06/2024 10:11 AM [facility] LABAnion Nbl728 - 15 mmol/L106/06/2024 10:11 AM [facility] LABEstimated Glomerular Filtration Rate94>=60 mL/min/1.73m 04/06/2025 10:11 AM [facility] LABComment:Estimated Glomerular Filtration Rate (eGFR) is calculated [...] VolumeCollection TimeReceived TimeBloodBLOOD SPECIMEN / UnknownVenipuncture / Dnblcke2504/06/2025 7:14 AM EST04/06/2025 8:28 AM EST Narrative Authorizing ProviderResult TypeResult StatusAlessandro Borden MDLABORATORYFinal ResultPerforming OrganizationAddressCity/State/ZIP CodePhone Number [facility] [address] [place] [address], * (ABNORMAL) HIGH SENSITIVITY TROPONIN T (04/06/2025 7:14 AM EST)ComponentValue Ref RangeTest MethodAnalysis TimePerformed AtPathologist SignatureTNT High Izzujcdnnxd08(H)<12 ng/L106/06/2024 10:11 AM [facility] LAB Specimen (Source)Anatomical Location / LateralityCollection Method / Volume Collection TimeReceived TimeBloodBLOOD SPECIMEN / UnknownVenipuncture / Yiukzqc3404/06/2025 7:14 AM EST04/06/2025 8:28 AM EST Narrative Authorizing ProviderResult TypeResult StatusAlessandro Borden MDLABORATORYFinal ResultPerforming OrganizationAddressCity/State/ZIP CodePhone Number [facility] [address] [place] [address], * (ABNORMAL) HIGH SENSITIVITY TROPONIN T (04/06/2025 7:14 AM EST)ComponentValue Ref RangeTest MethodAnalysis TimePerformed AtPathologist SignatureTNT High Ojadnwrnixu95(H)<12 ng/L106/06/2024 10:06 AM [facility] LAB Specimen (Source)Anatomical Location / LateralityCollection Method / Volume Collection TimeReceived TimeBloodBLOOD SPECIMEN / UnknownVenipuncture / Gycxwlt7804/06/2025 7:14 AM EST04/06/2025 8:29 AM EST Narrative Authorizing ProviderResult TypeResult StatusLuciano TastaldiLABORATORYFinal ResultPerforming OrganizationAddressCity/State/ZIP CodePhone Number [facility] [address] [place] [address], * (ABNORMAL) PHOSPHORUS INORGANIC (04/05/2025 6:15 PM EST)ComponentValueRef RangeTest MethodAnalysis TimePerformed AtPathologist SignaturePhosphorus2.4(L) 2.7 - 4.8 mg/dL04/05/2025 6:47 PM [facility] LABSpecimen (Source)Anatomical Location / LateralityCollection Method / VolumeCollection TimeReceived TimeBloodBLOOD SPECIMEN / UnknownVenipuncture / Djatpei9404/05/2025 6:15 PM EST04/05/2025 6:26 PM EST Narrative Authorizing ProviderResult TypeResult StatusLuciano TastaldiLABORATORYFinal ResultPerforming OrganizationAddressCity/State/ZIP CodePhone Number [facility] [address] * (ABNORMAL) BASIC METABOLIC PANEL (04/05/2025 6:15 PM EST)ComponentValueRef RangeTest MethodAnalysis TimePerformed AtPathologist XlgbqjjbdKmnvvcn837(H)74 - 99 mg/dL04/05/2025 6:47 PM [facility] LABComment: The [place] [employer] (ADA) provides guidance for cutoff [...] Standards of Medical Care in Diabetes 2016, [place] [employer]. Diabetes Care. 2016.39(Suppl 1). RNH427 - 21 mg/dL04/05/2025 6:47 PM [facility] LABCreatinine0.66 0.58 - 0.96 mg/dL04/05/2025 6:47 PM [facility] AEUAdkpej085895 - 144 mmol/L106/05/2024 6:47 PM [facility] LABPotassium5.13.7 - 5.1 mmol/L106/05/2024 6:47 PM [facility] NPXGbhutwep764(H)98 - 107 mmol/L106/05/2024 6:47 PM [facility] BJDOW862(L)22 - 30 mmol/L 04/05/2025 6:47 PM [facility] LABAnion Umv305 - 15 mmol/L 04/05/2025 6:47 PM [facility] LABCalcium, Total7.8(L)8.5 - 10.2 mg/dL04/05/2025 6:47 PM [facility] LABEstimated Glomerular Filtration Rate94>=60 mL/min/1.73m 04/05/2025 6:47 PM [facility] LABComment:Estimated Glomerular Filtration Rate (eGFR) is calculated [...] VolumeCollection TimeReceived TimeBloodBLOOD SPECIMEN / UnknownVenipuncture / Hxcywaz2004/05/2025 6:15 PM EST04/05/2025 6:26 PM EST Narrative Authorizing ProviderResult TypeResult StatusLuciano TastaldiLABORATORYFinal ResultPerforming OrganizationAddressCity/State/ZIP CodePhone Number [facility] [address] * (ABNORMAL) COMPLETE BLOOD COUNT (04/05/2025 6:15 PM EST)ComponentValueRef RangeTest MethodAnalysis TimePerformed AtPathologist LhyyokvzuWOS59.87(H)3.70 - 11.00 k/uL04/05/2025 6:35 PM [facility] LABRBC3.53(L)3.90 - 5.20 m/uL04/05/2025 6:35 PM [facility] ZCEInfvjvitmt58.3(L)11.5 - 15.5 g/dL04/05/2025 6:35 PM [facility] TWECbjzokkfph30.5(L) 36.0 - 46.0 %04/05/2025 6:35 PM [facility] YPJLUQ31.280.0 - 100.0 fL04/05/2025 6:35 PM [facility] ONTROW98.226.0 - 34.0 pg 04/05/2025 6:35 PM [facility] UBEVQFL05.730.5 - 36.0 g/dL 04/05/2025 6:35 PM [facility] LABRDW-CV17.6(H)11.5 - 15.0 % 04/05/2025 6:35 PM [facility] LABPlatelet Zuzpn591655 - 400 k/uL 04/05/2025 6:35 PM [facility] UZHGKX84.09.0 - 12.7 fL04/05/2025 6:35 PM [facility] LABAbsolute nRBC<0.01<0.01 k/uL04/05/2025 6:35 PM [facility] LABSpecimen (Source)Anatomical Location / LateralityCollection Method / VolumeCollection TimeReceived TimeBloodBLOOD SPECIMEN / UnknownVenipuncture / Gdcwlmj1504/05/2025 6:15 PM EST04/05/2025 6:26 PM EST Narrative Authorizing ProviderResult TypeResult StatusLuciano TastaldiLABORATORYFinal ResultPerforming OrganizationAddressCity/State/ZIP CodePhone Number [facility] [address] [place] [address], [place] * MAGNESIUM (04/05/2025 6:15 PM EST)ComponentValueRef RangeTest MethodAnalysis TimePerformed AtPathologist SignatureMagnesium1.81.7 - 2.3 mg/dL04/05/2025 6:47 PM [facility] LABSpecimen (Source)Anatomical Location / LateralityCollection Method / VolumeCollection TimeReceived TimeBloodBLOOD SPECIMEN / UnknownVenipuncture / Lqtndim6704/05/2025 6:15 PM EST04/05/2025 6:26 PM EST Narrative Authorizing ProviderResult TypeResult StatusLuciano TastaldiLABORATORYFinal ResultPerforming OrganizationAddressCity/State/ZIP CodePhone Number [facility] [address] [place] [address], [place] * XR CHEST 1V FRONTAL PORT (04/05/2025 12:56 PM EST)Anatomical RegionLaterality ModalityChestRadiographic ImagingSpecimen (Source)Anatomical Location / LateralityCollection Method / VolumeCollection TimeReceived Time04/05/2025 12:56 PM EST Impressions 04/05/2025 1:07 PM EST IMPRESSION: See result. Wallcovering Hanger: REE ?? Transcribe Date/Time: Apr 05 2025 ??1:04P Dictated by : LIBERTY FARRIS MD This examination was interpreted and the report reviewed and electronically signed by: LIBERTY FARRIS MD on Apr 05 2025 ??1:05PM ??EST Narrative 04/05/2025 1:07 PM EST * * *Final Report* * * DATE OF EXAM: Apr 05 2025 12:56PM ?? ESX ?? [id number] ??- ??XR CHEST 1V FRONTAL PORT ??/ PROCEDURE REASON: Post-operative/post-procedure assessment ? * * * * Physician Interpretation * * * * EXAMINATION: ??CHEST RADIOGRAPH (PORTABLE SINGLE VIEW AP) Exam Date/Time: ??04/05/2025 12:56 PM Clinical History: Post-operative/post-procedure assessment MQ: ??XCPMC_6 Comparison: ??None RESULT: Lines, tubes, and devices: ??None. Lungs and pleura: ??Limited evaluation of the left lung due to overlying pad. ??Interstitial prominence bilaterally without focal consolidation. ?? No pleural effusion or pneumothorax. Cardiomediastinal silhouette: ??Enlarged cardiomediastinal silhouette. ?? Other: ??. Procedure Note Provider, [facility] - 04/05/2025 * * *Final Report* * * DATE OF EXAM: Apr 05 2025 12:56PM ESX 5376 - XR CHEST 1V FRONTAL PORT / PROCEDURE REASON: Post-operative/post-procedure assessment * * * * Physician Interpretation * * * * EXAMINATION: CHEST RADIOGRAPH (PORTABLE SINGLE VIEW AP) Exam Date/Time: 04/05/2025 12:56 PM Clinical History: Post-operative/post-procedure assessment MQ: XCPMC_6 Comparison: None RESULT: Lines, tubes, and devices: None. Lungs and pleura: Limited evaluation of the left lung due to overlying pad. Interstitial prominence bilaterally without focal consolidation. No pleural effusion or pneumothorax. Cardiomediastinal silhouette: Enlarged cardiomediastinal silhouette. Other: . IMPRESSION IMPRESSION: See result. Wallcovering Hanger: REE Transcribe Date/Time: Apr 05 2025 1:04P Dictated by : LIBERTY FARRIS MD This examination was interpreted and the report reviewed and electronically signed by: LIBERTY FARRIS MD on Apr 05 2025 1:05PM EST Authorizing ProviderResult TypeResult StatusBrrufino Borden MDRAD-PAMAFinal Result * (ABNORMAL) ARTERIAL BLOOD GASES WITH IONIZED MAGNESIUM (04/05/2025 12:36 PM EST)ComponentValueRef RangeTest MethodAnalysis TimePerformed AtPathologist SignaturepH, Arterial7.32(L)7.35 - 7.45106/05/2024 12:47 PM [facility] LABpCO2, Jupxqxtn6993 - 46 mm Hg04/05/2025 12:47 PM [facility] LABpO2, Gvhfqkcz693(H)85 - 95 mm Hg04/05/2025 12:47 PM [facility] LABBicarbonate, Yclqagqi52(L)22 - 26 mmol/L106/05/2024 12:[address] [facility] LABO2 Saturation, Kiwpwwmi0890 - 98 %04/05/2025 12:47 PM [facility] LABBase Deficit, Arterial-5(L)-2 - 0 mmol/L106/05/2024 12:47 PM [facility] LABOxyhemoglobin, Cbsabofk6582 - 98 % 04/05/2025 12:47 PM [facility] LABCarboxyhemoglobin, Arterial1.1 0.0 - 2.0 %04/05/2025 12:47 PM [facility] LABComment: Carboxyhemoglobin Reference Range for Smokers: 2.0-8.0%Methemoglobin, Arterial 1.00.0 - 1.5 %04/05/2025 12:47 PM [facility] LABSodium, Whole Wswpa190328 - 144 mmol/L106/05/2024 12:47 PM [facility] LAB Potassium, Whole Blood4.73.5 - 5.0 mmol/L106/05/2024 12:47 PM [facility] LABCalcium Ionized, Whole Blood1.101.08 - 1.30 mmol/L106/05/2024 12:47 PM [facility] LABCalcium Ionized, pH corrected1.05(L)1.08 - 1.30 mmol/L106/05/2024 12:47 PM [facility] LABGlucose, Whole Eplnc402(H)60 - 105 mg/dL04/05/2025 12:47 PM [facility] LAB Lactate0.50.5 - 2.2 mmol/L106/05/2024 12:47 PM [facility] LAB Ionized Magnesium0.470.45 - 0.60 mmol/L106/05/2024 12:47 PM [facility] LABHemoglobin, Whole Blood10.8(L)11.5 - 15.5 g/dL04/05/2025 12:47 PM EST [facility] LABHematocrit, Whole Blood33.4(L)36.0 - 46.0 %04/05/2025 12:47 PM [facility] LABTemperature, Body37.0C106/05/2024 12:47 PM [facility] XVHEqhchq8Lqzjqj/min04/05/2025 12:47 PM [facility] LABO2 TherapyNC = Nasal Ajimocf9504/05/2025 12:47 PM [facility] LABSpecimen (Source)Anatomical Location / LateralityCollection Method / VolumeCollection TimeReceived TimeBlood, ArterialBLOOD SPECIMEN / Qtjxtmy4804/05/2025 12:36 PM EST04/05/2025 12:45 PM EST Narrative Authorizing ProviderResult TypeResult StatusAlessandro Borden MDBLOOD GASESFinal ResultPerforming OrganizationAddressCity/State/ZIP CodePhone Number [facility] [address] * (ABNORMAL) ARTERIAL BLOOD GASES WITH IONIZED MAGNESIUM (04/05/2025 10:07 AM EST)ComponentValueRef RangeTest MethodAnalysis TimePerformed AtPathologist SignaturepH, Arterial7.31(L)7.35 - 7.45106/05/2024 10:39 AM [facility] LABpH, Temp Corrected, Arterial7.31(L)7.35 - 7.45106/05/2024 10:39 AM EST [facility] LABpCO2, Dhgiwzek3041 - 46 mm Hg04/05/2025 10:39 AM [facility] LABpCO2, Temp Corrected, Snyjfehi5903 - 46 mmHg 04/05/2025 10:39 AM [facility] LABpO2, Fqkkgxlh079(H)85 - 95 mm Hg04/05/2025 10:39 AM [facility] LABpO2, Temp Corrected, Cufycght520(H)85 - 95 mmHg04/05/2025 10:39 AM [facility] LAB Bicarbonate, Vzszhkwe68(L)22 - 26 mmol/L106/05/2024 10:39 AM [facility] LABO2 Saturation, Lrfzmpgd39(H)95 - 98 %04/05/2025 10:[address] [facility] LABBase Deficit, Arterial-6(L)-2 - 0 mmol/L106/05/2024 10:39 AM [facility] LABOxyhemoglobin, Aveylkjk2997 - 98 % 04/05/2025 10:39 AM [facility] LABCarboxyhemoglobin, Arterial0.9 0.0 - 2.0 %04/05/2025 10:39 AM [facility] LABComment: Carboxyhemoglobin Reference Range for Smokers: 2.0-8.0%Methemoglobin, Arterial 1.6(H)0.0 - 1.5 %04/05/2025 10:39 AM [facility] LABSodium, Whole Uiieq473005 - 144 mmol/L106/05/2024 10:39 AM [facility] LAB Potassium, Whole Blood4.83.5 - 5.0 mmol/L106/05/2024 10:39 AM [facility] LABCalcium Ionized, Whole Blood1.161.08 - 1.30 mmol/L106/05/2024 10:39 AM [facility] LABCalcium Ionized, pH corrected1.101.08 - 1.30 mmol/L106/05/2024 10:39 AM [facility] LABGlucose, Whole Aypoi564(H)60 - 105 mg/dL04/05/2025 10:39 AM [facility] LAB Lactate0.50.5 - 2.2 mmol/L106/05/2024 10:39 [facility] Ionized Magnesium0.570.45 - 0.60 mmol/L106/05/2024 10:39 AM [facility] LABHemoglobin, Whole Blood11.0(L)11.5 - 15.5 g/dL04/05/2025 10:39 AM EST [facility] LABHematocrit, Whole Blood34.1(L)36.0 - 46.0 %04/05/2025 10:39 AM [facility] LABSpecimen (Source)Anatomical Location / LateralityCollection Method / VolumeCollection TimeReceived TimeBlood, ArterialBLOOD SPECIMEN / Hopyjki7604/05/2025 10:07 AM EST04/05/2025 10:34 AM EST Narrative Authorizing ProviderResult TypeResult StatusOksana Loginova KEEL PRESS OPERATOR.CRNABLOOD GASES Final ResultPerforming OrganizationAddressCity/State/ZIP CodePhone Number [facility] [address] [place] [address], * CONFIRM BLOOD TYPE (04/05/2025 7:05 AM EST)ComponentValueRef RangeTest Method Analysis TimePerformed AtPathologist AyrlkojjhPMVQ74/14/2025 9:20 AM EST [facility] LABRh(D)Beyvwqss46/14/2025 9:20 AM [facility] LABSpecimen (Source)Anatomical Location / LateralityCollection Method / VolumeCollection TimeReceived TimeBloodBLOOD SPECIMEN / UnknownVenipuncture / Torxckd7804/05/2025 7:05 AM EST04/05/2025 7:31 AM EST Narrative Authorizing ProviderResult TypeResult StatusLuciano TastaldiBLOOD BANKFinal ResultPerforming OrganizationAddressCity/State/ZIP CodePhone Number [facility] [address] [place] [address], documented in this encounter Visit Diagnoses Diagnosis Paraesophageal hernia- Primary Diaphragmatic hernia without mention of obstruction or gangrene Chronic congestive heart failure, unspecified heart failure type (HCC) Post-op pain Other acute postoperative pain Chronic obstructive pulmonary disease, unspecified COPD type (HCC) Chronic interstitial lung disease (HCC) Postinflammatory pulmonary fibrosis PONV (postoperative nausea and vomiting) Nausea with vomiting Gastroesophageal reflux disease Esophageal reflux Chronic renal insufficiency Chronic kidney disease, unspecified CHF (congestive heart failure) (HCC) Congestive heart failure, unspecified Obesity, Class I, BMI 30-34.9 Obesity, unspecified S/P repair of paraesophageal hernia Other postprocedural status Post-op pain Other acute postoperative pain COPD (chronic obstructive pulmonary disease) (HCC) Chronic airway obstruction, not elsewhere classified PAF (paroxysmal atrial fibrillation) (HCC) Atrial fibrillation Malnutrition of mild degree (HCC) Malnutrition of mild degree Ileus, postoperative (HCC) Other digestive system complications Essential hypertension Unspecified essential hypertension Mild pulmonary hypertension (HCC) Other chronic pulmonary heart diseases Electrolyte imbalance Electrolyte and fluid disorders not elsewhere classified Aspiration pneumonia (HCC) Pneumonitis due to inhalation of food or vomitus Chronic interstitial lung disease [facility]) Postinflammatory pulmonary fibrosis documented in this encounter Admitting Diagnoses Diagnosis Paraesophageal hernia Diaphragmatic hernia without mention of obstruction or gangrene documented in this encounter Administered Medications Medication OrderMAR ActionAction DateDoseRateSite acetaminophen 1,000 mg CUP (TYLENOL) 1,000 mg, ORAL, EVERY 8 HOURS, First dose on Tue04/05/25 at 1630, Until Discontinued Given04/05/2025 5:00 PM EST1,000 mg acetaminophen 1,000 mg CUP (TYLENOL) 1,000 mg, ORAL, EVERY 6 HOURS, First dose (after last modification) on Tue04/06/25 at 2200, Until Discontinued Given04/07/2025 6:26 AM EST1,000 qaUwbpy7904/06/2025 9:43 PM EST1,000 mg acetaminophen 1,000 mg CUP (TYLENOL) 1,000 mg, NASOGASTRIC, EVERY 6 HOURS, First dose (after last modification) on Tue04/07/25 at 1200,Until Discontinued Given04/09/2025 1:26 PM EST1,000 siKpebe9804/09/2025 5:33 AM EST1,000 mgGiven 04/08/2025 11:52 AM EST1,000 mg acetaminophen 1,000 mg CUP (TYLENOL) 1,000 mg, ORAL, EVERY 6 HOURS, First dose (after last modification) on Tue04/10/25 at 0000, Until Discontinued Given04/10/2025 12:22 PM EST1,000 [id number]/10/2025 4:57 AM EST1,000 mgGiven 04/09/2025 11:21 PM EST1,000 mg acetaminophen 1,000 mg tab(s) (TYLENOL) 1,000 mg, ORAL, ONCE, 1 dose, On Tue04/05/25 at 0630, Preprocedure Given04/05/2025 6:55 AM EST1,000 mg albuterol HFA 90 mcg/actuation 2 puff (PROVENTIL HFA, VENTOLIN HFA) 2 puff, INHALATION, EVERY 4 HOURS NEEDED, Starting on Tue04/10/25 at 0922, Until Tue04/10/25 at 2125, wheezing/shortness of breath, SHAKE WELL BEFORE USING -Pharmaceutical Waste: Aerosol- Given04/10/2025 9:25 AM EST2 puffs amitriptyline 50 mg tab(s) (ELAVIL) 50 mg, ORAL, AT BEDTIME, First dose on Tue04/05/25 at 2100, Until Discontinued Given04/06/2025 9:46 PM EST50 [id number]/05/2025 9:16 PM EST50 mg amitriptyline 50 mg tab(s) (ELAVIL) 50 mg, NASOGASTRIC, AT BEDTIME, First dose (after last modification) on Tue04/07/25 at 2100, UntilDiscontinued Given04/08/2025 9:45 PM EST50 [id number]/07/2025 8:26 PM EST50 mg amitriptyline 50 mg tab(s) (ELAVIL) 50 mg, ORAL, AT BEDTIME, First dose (after last modification) on Tue04/09/25 at 2100, Until Discontinued Given04/09/2025 8:37 PM EST50 mg amoxicillin-clavulanate potassium 875 mg tab(s) (AUGMENTIN) 875 mg, ORAL, EVERY 12 HOURS, 14 doses, First dose on Tue04/10/25 at 0830, Last dose on Tue04/16/25 at 2100, Antimicrobial indication: Empiric, Infectious source(s): Respiratory, Pharmacist may modify dose per [facility] dose optimization consult agreement: Yes Given04/10/2025 8:22 AM [id number] mg ARIPiprazole 30 mg tab(s) (ABILIFY) 30 mg, ORAL, DAILY, First dose on Tue04/06/25 at 0900, Until Discontinued, May be administered with or without food. Given04/07/2025 8:45 AM EST30 lxQpfqz3304/06/2025 8:55 AM EST30 mg ARIPiprazole 30 mg tab(s) (ABILIFY) 30 mg, NASOGASTRIC, DAILY, First dose (after last modification) on Tue04/08/25 at 0900, Until Discontinued, May be administered with or without food. Given04/09/2025 8:57 AM EST30 qyWqksm3104/08/2025 8:24 AM EST30 mg ARIPiprazole 30 mg tab(s) (ABILIFY) 30 mg, ORAL, DAILY, First dose (after last modification) on Tue04/10/25 at 0900, Until Discontinued, May be administered with or without food. Given04/10/2025 8:01 AM EST30 mg benzocaine-menthol 1 lozenge (CHLORASEPTIC) 1 lozenge, MUCOUS MEMBRANE (TOPICAL MOUTH & THROAT), EVERY 2 HOURS NEEDED, Starting on 04/07/25 at 0917, Until Tue04/10/25 at 2125, Sore Throat, Use if able to suck on lozenge or based onpatient preference bisacodyl 10 mg suppository (DULCOLAX) 10 mg, RECTAL, ONCE, 1 dose, On Tue04/08/25 at 1400, FOR RECTAL USE Given04/08/2025 2:32 PM EST10 mg cihpbkocvq-yztjbmno-kxqcxoguiv 160-9-4.8 mcg/actuation HFA 2 puff (BREZTRI) 2 puff, INHALATION, 2 TIMES DAILY, First dose on Tue04/07/25 at 1100, Until Discontinued, ok to use the home medication Given04/10/2025 8:53 AM EST2 wszuwCmdgr09/18/2025 7:38 PM EST2 puffsGiven 04/09/2025 10:10 AM EST2 puffs dextrose 10% iv bolus 125 mL (12.5 g), INTRAVENOUS, at 750 mL/hr, Administer over 10 Minutes, NEEDED, Starting on 04/06/25 at 1301, Until Tue04/10/25 at 2125, low blood sugar, Use when blood glucose is less than 70 mg/dL (60 mg/dL if ) and patient has IV access Program on smart pump using dextrose 10% bolus file - NONCYTOTOXIC VESICANT - dextrose 10% iv bolus 250 mL, INTRAVENOUS, at 250 mL/hr, Administer over 1 Hours, ONCE, 1 dose, On Tue04/10/25 at 0030, - NONCYTOTOXIC VESICANT - New Bag/Syringe/Pkzvpp2604/10/2025 12:11 AM GLB760 mL250 mL/hr dextrose 15 gram/32 mL 15 g (TRUEPLUS) 15 g, ORAL, NEEDED, Starting on 04/06/25 at 1301, Until Tue04/10/25 at 2125, low blood sugar, Use when blood glucose is less than 70 mg/dL (60 mg/dL if ) and patient demonstrates diminished level of consciousness but is able to swallow without risk of aspiration Each 32 mL PACKET ofdextrose oral gel delivers a DOSE = 15 GRAMS of CARBOHYDRATE --- Administer ONLY if the patient is awake/alert and able to swallow. dextrose 5% in LR infusion (D5-LR) 5-30 mL/hr, INTRAVENOUS, CONTINUOUS, Starting on 04/08/25 at 1130, Until Tue04/10/25 at 2125 Rate/Dose Crfwro1904/10/2025 8:04 AM EST30 mL/hr30 mL/hrNew Bag/Syringe/Bottle 04/09/2025 8:45 PM EST75 mL/hr75 mL/hrRate/Dose Vxeuyf6004/09/2025 7:01 PM EST75 mL/hr75 mL/hr dilTIAZem 20 mg injection 20 mg, INTRAVENOUS, ONCE, 1 dose, On Tue04/05/25 at 1330, REFRIGERATE Given04/05/2025 1:29 PM EST25 mg enoxaparin 40 mg injection (LOVENOX) 40 mg, SUBCUTANEOUS, DAILY, First dose on 04/06/25 at 0900, Until Discontinued Given04/10/2025 8:01 AM EST40 mgArm, YuclUzbdr59/18/2025 8:57 AM EST40 mgArm, WgzmNjhlg95/17/2025 8:24 AM EST40 mgAbdomen, LLQ enoxaparin 40 mg injection (LOVENOX) 40 mg, SUBCUTANEOUS, DAILY, First dose (after last reorder) on Beatrice 04/11/25 at 0900, Until Discontinued erythromycin 250 mg in NaCl 0.9% 100 mL 250 mg, INTRAVENOUS, at 200 mL/hr, Administer over 30 Minutes, EVERY 6 HOURS, First dose on Tue04/08/25 at 0730, Until Discontinued, Refrigerate - EXP: (24 HR) New Bag/Syringe/Yimiwr8204/08/2025 7:30 AM VAL557 mg200 mL/hr erythromycin 250 mg in NaCl 0.9% 100 mL 250 mg, INTRAVENOUS, at 200 mL/hr, Administer over 30 Minutes, EVERY 8 HOURS, First dose (after last modification) on Tue04/08/25 at 1400, Until Discontinued, Refrigerate - EXP: (24 HR) New Bag/Syringe/Twhozf4004/09/2025 1:26 PM IQJ421 mg200 mL/hrNew Bag/Syringe/Zwsyxb9504/09/2025 9:06 AM QXL774 mg200 mL/hrNew Bag/Syringe/Bottle 04/08/2025 9:45 PM GVS787 mg200 mL/hr esmolol 20 mg injection (BREVIBLOC) 20 mg, INTRAVENOUS, ONCE, 1 dose, On Tue04/05/25 at 1300, Recovery or Phase I (only) Given04/05/2025 12:30 PM EST20 mg famotidine 20 mg injection (PEPCID) 20 mg, INTRAVENOUS, ONCE, 1 dose, On Tue04/05/25 at 0630, REFRIGERATE, Preprocedure Given04/05/2025 6:56 AM EST20 mg FLUoxetine 20 mg cap(s) (PROzac) 20 mg, ORAL, DAILY, First dose on Tue04/06/25 at 0900, Until Discontinued Given04/07/2025 8:45 AM EST20 gkPlzkq7104/06/2025 8:55 AM EST20 mg FLUoxetine 20 mg cap(s) (PROzac) 20 mg, NASOGASTRIC, DAILY, First dose (after last modification) on Tue04/08/25 at 0900, Until Discontinued Given04/09/2025 8:56 AM EST20 uoNowej1904/08/2025 8:24 AM EST20 mg FLUoxetine 20 mg cap(s) (PROzac) 20 mg, ORAL, DAILY, First dose (after last modification) on Tue04/10/25 at 0900, Until Discontinued Given04/10/2025 8:01 AM EST20 mg glucagon 1 mg injection 1 mg, INTRAMUSCULAR, NEEDED, Starting on 04/06/25 at 1301, Until Tue04/10/25 at 2125, low blood sugar, Use when blood glucose is less than 70 mg/dL (60 mg/dL if ) and patient has no IV access HYDROmorphone 0.2 mg injection (DILAUDID) 0.2 mg, INTRAVENOUS, EVERY 4 HOURS NEEDED, Starting on Tue04/10/25 at 0810, Until Tue04/10/25 at 2125, breakthrough pain, Caution: IV hydromorphone is approximately 8 times MORE POTENT than IV morphine. For example, hydromorphone 1mg IV = morphine 8mg IV HYDROmorphone 0.4 mg injection (DILAUDID) 0.4 mg, INTRAVENOUS, EVERY 3 HOURS NEEDED, Starting on 04/06/25 at 0555, Until Tue04/07/25 at 1410, breakthrough pain, Caution: IV hydromorphone is approximately 8 times MORE POTENT than IV morphine. For example, hydromorphone 1mg IV = morphine 8mg IV Given04/07/2025 1:50 PM EST0.4 txGvrpj9504/07/2025 10:00 AM EST0.4 mgGiven 04/07/2025 3:58 AM EST0.4 mg HYDROmorphone 0.4 mg injection (DILAUDID) 0.4 mg, INTRAVENOUS, EVERY 3 HOURS NEEDED, Starting on 04/07/25 at 1409, Until Tue04/10/25 at 0810, breakthrough pain, Caution: IV hydromorphone is approximately 8 times MORE POTENT than IV morphine. For example, hydromorphone 1mg IV = morphine 8mg IV Given04/09/2025 1:25 PM EST0.4 bzWytcr1604/09/2025 8:34 AM EST0.4 mgGiven 04/09/2025 3:01 AM EST0.4 mg HYDROmorphone 0.5 mg injection (DILAUDID) 0.5 mg, INTRAVENOUS, EVERY 10 MINUTES NEEDED, Starting on Tue04/05/25 at 1329, Until Tue04/05/25 at 1554, breakthrough pain, May repeat every 10 minutes (MAX: 2 mg) If pain score remains greaterthan 4 after maximal dose achieved, contact PACU residential lawn specialist/LIP/staff for reassessment. Caution: IV hydromorphone is approximately 8 times MORE POTENT than IV morphine. For example, hydromorphone 1mg IV = morphine 8mg IV, Recovery or Phase I (only) Given04/05/2025 3:11 PM EST0.5 sdRkqim3904/05/2025 2:01 PM EST0.5 mg insulin lispro injection (rapid acting) (ADMElog) SUBCUTANEOUS, EVERY 6 HOURS, First dose on Tue04/06/25 at 1330, Until Discontinued, ADMINISTER CORRECTIONAL INSULIN REGARDLESS OF MEAL OR NUTRITION INTAKE Scale 2 If Blood Glucose (mg/dL) is: Less than 110 Give 0 units 111-150 Give 0 units 151-200 Give 2 units 201-250 Give 4 units 251-300 Give 6 units 301- 350 Give 8 units 351-400 Give 10 units Greater than 400 Give 10 units and Notify Provider Notify provider if 2 consecutive blood glucose values in the previous 24 hours are greater than 250 mg/dL and there have been no changes to the insulin regimen in the previous 24 hours. Given04/06/2025 1:25 PM EST2 UnitsArm, Right lactated ringers 1,000 mL iv bolus 1,000 mL, INTRAVENOUS, at 999 mL/hr, Administer over 1 Hours, ONCE, 1 dose, On Tue04/05/25 at 1400 Rate Lnjfvs9604/05/2025 1:30 PM IRC220 mL/hr lactated ringers iv infusion 5-30 mL/hr, INTRAVENOUS, CONTINUOUS, Starting on Tue04/05/25 at 0630, Until Tue04/05/25 at 1226, Preprocedure New Bag/Syringe/Rgtxuq0604/05/2025 6:58 AM EST30 mL/hr30 mL/hr lactated ringers iv infusion 100 mL/hr, INTRAVENOUS, CONTINUOUS, Starting on Tue04/05/25 at 1330, Until Tue04/05/25 at 1554, Recovery or Phase I (only) Rate Sozous1504/05/2025 12:55 PM DMU157 mL/hr100 mL/hr lactated ringers iv infusion 125 mL/hr, INTRAVENOUS, CONTINUOUS, Starting on Tue04/05/25 at 1500, Until Tue04/08/25 at 1127 New Bag/Syringe/Fmesxn3904/07/2025 11:15 PM EAQ176 mL/hr125 mL/hrRate/Dose Change 04/07/2025 9:45 AM AOR908 mL/hr125 mL/hrRate/Dose Mybqtk0204/07/2025 12:02 AM EST 50 mL/hr50 mL/hr levothyroxine 50 mcg tab(s) (SYNTHROID) 50 mcg, ORAL, DAILY AT 6 AM, First dose on 04/06/25 at 0600, Until Discontinued Given04/10/2025 4:57 AM EST50 ptxFlzop59/18/2025 5:33 AM EST50 mcgGiven 04/08/2025 5:33 AM EST50 mcg lidocaine (PF) 10 mg/mL (1 %) 10-100 mg injection (XYLOCAINE) 10-100 mg (1-10 mL), INTRADERMAL, DIRECTED NEEDED, 1 dose, Starting on 04/07/25 at 1014, Until 04/07/25 at 1227, See admin instructions, Procedure use only - PICC/Midline placement, Procedure use only - PICC/Midline placement Given04/07/2025 12:27 PM EST3 mLArm, Right lisinopril 40 mg tab(s) (ZESTRIL) 40 mg, ORAL, DAILY, First dose on 04/06/25 at 0900, Until Discontinued, Limit salt substitutes and potassium-rich diet. Given04/06/2025 8:55 AM EST40 mg magnesium sulfate 1 g in D5W 100 mL 1 g, INTRAVENOUS, at 100 mL/hr, Administer over 1 Hours, EVERY 1 HOUR, 3 doses, First dose on 04/06/25 at 0600, Last dose on 04/06/25 at 0800, Magnesium sulfate iv bolus will be infused at a rate of 1 gram/hr The following nursing units may administer 2 g dose over 1 hour if necessary: ICUs/PACU/ED, Adult Hematology/Oncology, Labor and Delivery, Cardiac Stepdown, Headache Clinic If necessary, a magnesium sulfate bolus may be administered greater than 2 g/hr for the following indications: Adult and Pediatric Asthma Exacerbations, [place], Pediatric BMT and Hematology/Oncology, Eclampsia or Preeclampsia New Bag/Syringe/Rnzibf3104/06/2025 8:55 AM EST1 g100 mL/hrNew Bag/Syringe/Bottle 04/06/2025 7:25 AM EST1 g100 mL/hrNew Bag/Syringe/Qqdczi7904/06/2025 6:13 AM EST1 g100 mL/hr methocarbamol 500 mg tab(s) (ROBAXIN) 500 mg, ORAL, 3 TIMES DAILY, First dose on Tue04/06/25 at 0900, Until Discontinued Given04/07/2025 8:45 AM HLA265 qxHvmub2904/06/2025 9:43 PM PYB095 mgGiven 04/06/2025 11:50 AM RKV676 mg metoclopramide HCl 10 mg injection (REGLAN) 10 mg, INTRAVENOUS, EVERY 8 HOURS, 6 doses, First dose on Tue04/06/25 at 1130, Last dose on Tue04/08/25 at 0600, Pharmacist may modify dose per [facility] dose optimization consult agreement: Yes Given04/08/2025 5:33 AM EST10 frUosvy8804/07/2025 9:26 PM EST10 tmJqhvd6104/07/2025 2:25 PM EST10 mg metoclopramide HCl 10 mg tab(s) (REGLAN) 10 mg, NASOGASTRIC, 3 TIMES DAILY, First dose (after last modification) on Tue04/09/25 at 1000, Until Discontinued, Pharmacist may modify dose per [facility] dose optimization consult agreement: Yes Given04/10/2025 12:22 PM EST10 nvGgifd0904/10/2025 8:01 AM EST10 efGdhyo6404/09/2025 8:37 PM EST10 mg metoprolol 2.5 mg injection (LOPRESSOR) 2.5 mg, INTRAVENOUS, ONCE, 1 dose, On Tue04/05/25 at 1300, Administer IV push over 2-5 minutes., Recovery or Phase I (only) Given04/05/2025 12:37 PM EST2.5 mg metoprolol 2.5 mg injection (LOPRESSOR) 2.5 mg, INTRAVENOUS, ONCE, 1 dose, On Tue04/05/25 at 1300, Administer IV push over 2-5 minutes., Recovery or Phase I (only) Given04/05/2025 12:35 PM EST2.5 mg metoprolol 2.5 mg injection (LOPRESSOR) 2.5 mg, INTRAVENOUS, ONCE, 1 dose, On Tue04/05/25 at 1400, Administer IV push over 2-5 minutes., Recovery or Phase I (only) Given04/05/2025 12:45 PM EST2.5 mg metoprolol 2.5 mg injection (LOPRESSOR) 2.5 mg, INTRAVENOUS, ONCE, 1 dose, On Tue04/05/25 at 1400, Administer IV push over 2-5 minutes., Recovery or Phase I (only) Given04/05/2025 12:42 PM EST2.5 mg metoprolol 5 mg injection (LOPRESSOR) 5 mg, INTRAVENOUS, ONCE, 1 dose, On Tue04/05/25 at 1300, Administer IV push over 2-5 minutes., Recovery or Phase I (only) Given04/05/2025 12:53 PM EST5 mg metoprolol 5 mg injection (LOPRESSOR) 5 mg, INTRAVENOUS, ONCE, 1 dose, On Tue04/05/25 at 1330, Administer IV push over 2-5 minutes., Recovery or Phase I (only) Given04/05/2025 1:08 PM EST5 mg metoprolol tartrate (short acting) 25 mg tab(s) (LOPRESSOR) 25 mg, ORAL, ONCE, 1 dose, On Tue04/05/25 at 1400 Given04/05/2025 1:51 PM EST25 mg metoprolol tartrate (short acting) 25 mg tab(s) (LOPRESSOR) 25 mg, ORAL, EVERY 8 HOURS, First dose on Tue04/05/25 at 2030, Until Discontinued, Hold if HR <60 or SBP < 110 or DBP < 60 Given04/07/2025 6:26 AM EST25 yiGyaay8304/06/2025 9:52 PM EST25 btAbzsr7404/06/2025 1:25 PM EST25 mg metoprolol tartrate (short acting) 25 mg tab(s) (LOPRESSOR) 25 mg, NASOGASTRIC, EVERY 8 HOURS, First dose (after last modification) on Tue04/07/25 at 1400, Until Discontinued, Hold if HR < 60 or SBP < 110 or DBP < 60 Given04/09/2025 1:26 PM EST25 jnNagvt7804/09/2025 5:34 AM EST25 tyEjyrd3704/08/2025 9:45 PM EST25 mg metoprolol tartrate (short acting) 25 mg tab(s) (LOPRESSOR) 25 mg, ORAL, EVERY 8 HOURS, First dose (after last modification) on Tue04/09/25 at 2200, Until Discontinued, Hold if HR < 60 or SBP < 110 or DBP < 60 , On hold since Tue04/10/2025 at 0800 until Tue04/11/2025 at 1800 Given04/09/2025 8:36 PM EST25 mg mometasone 220 mcg/ actuation (14) 1 puff inhaler (ASMANEX) 1 puff, INHALATION, DAILY, First dose on Tue04/05/25 at 1630, Until Discontinued, fbzvydprjv-fytyjgciulfkhk-yyzdxrmexe fumarate inhalation (BREZTRI AEROSPHERE) substituted to mometasone furoate inhalation (ASMANEX TWISTHALER) and tiotropium bromide-olodaterol inhalation (STIOLTO RESPIMAT) per Pharmacy and Therapeutics Committee Rinse mouth after Use. Do Not Swallow Given04/06/2025 10:09 AM EST1 puff NaCl 0.9% iv flush bag 20 mL, INTRAVENOUS, NEEDED, Starting on Tue04/06/25 at 0547, Until Tue04/10/25 at 2125, See admin instructions, If no compatible primary is already running, infuse NaCl 0.9% as primary to flush tubing after non-chemotherapy, non-immunotherapy intermittent infusions. Administer at the same rateas intermittent infusion. Select the Flush Bag file on smart pump. ondansetron (PF) 4 mg injection (ZOFRAN) 4 mg, INTRAVENOUS, EVERY 6 HOURS, First dose on Tue04/05/25 at 1800, Until Discontinued, Give IV push over 2 minutes Given04/09/2025 1:25 PM EST4 ixLyolj4004/09/2025 5:33 AM EST4 jqRunvp6404/09/2025 12:00 AM EST4 mg ondansetron (PF) 4 mg injection (ZOFRAN) 4 mg, INTRAVENOUS, EVERY 6 HOURS NEEDED, Starting on Tue04/09/25 at 1900, Until Tue04/10/25 [id number], Nausea/Vomiting - First Line - Parenteral, Give IV push over 2 minutes oxyCODONE 5-10 mg oral liquid (ROXICODONE) 5-10 mg, ORAL, EVERY 4 HOURS NEEDED, Starting on Tue04/05/25 at 1610, Until Tue04/06/25 at 0555, Moderate Pain (4-6) - Enteral, Severe Pain (>/=7) - Enteral Given04/06/2025 3:12 AM EST10 faMqcnb2104/05/2025 11:17 PM EST10 jnLngfp0804/05/2025 6:15 PM EST10 mg oxyCODONE 5-10 mg oral liquid (ROXICODONE) 5-10 mg, ORAL, EVERY 3 HOURS NEEDED, Starting on Tue04/06/25 at 0555, Until Tue04/09/25 at 1901, Moderate Pain (4-6) - Enteral, Severe Pain (>/=7) - Enteral Given04/09/2025 5:04 PM EST10 hkPodls7604/09/2025 11:24 AM EST10 daYadfa5204/09/2025 5:33 AM EST10 mg oxyCODONE 5-10 mg oral liquid (ROXICODONE) 5-10 mg, ORAL, EVERY 3 HOURS NEEDED, Starting on Tue04/09/25 at 1900, Until Tue04/10/25 at 0810, Severe Pain (>/=7) - Enteral Given04/10/2025 8:01 AM EST10 sfAtowl2904/09/2025 8:36 PM EST10 mg oxyCODONE 5-10 mg oral liquid (ROXICODONE) 5-10 mg, ORAL, EVERY 6 HOURS NEEDED, Starting on Tue04/10/25 at 0810, Until Tue04/10/25 at 2125, Severe Pain (>/=7) - Enteral Given04/10/2025 2:00 PM EST10 mg oxyCODONE IR 5 mg tab(s) (ROXICODONE) 5 mg, ORAL, EVERY 4 HOURS NEEDED, Starting on Tue04/05/25 at 1329, Until Tue04/05/25 at 1554, Moderate Pain (4-6) - Enteral, Severe Pain (>/=7) - Enteral, Give when patient able to take medications by mouth, Recovery or Phase I (only) Given04/05/2025 1:52 [address] 40 mg tab(s) (PROTONIX) 40 mg, ORAL, 2 TIMES DAILY BEFORE MEALS (0600/1600), First dose on Tue04/10/25 at 1800, Until Discontinued, Swallow whole; DO NOT crush or chew. perflutren lipid microspheres 1.1 mg/mL 1.3 mL injection (DEFINITY) 1.3 mL, INTRAVENOUS, DIRECTED NEEDED, 1 dose, Starting on 04/06/25 at 0610, Until Tue04/10/25 at 2125, Per Protocol - for use during ECHO procedure only, Perflutren must be activated priorto administration. Once activated: 1. Diluted IV Bolus: Dilute 1.3 mL of Definity?? with 8.7 mL of preservative-free saline 2. Undiluted IV Bolus: Administer undiluted Definity?? followed by a preservative-free 10 mL saline flush. phenol 1 spray (CHLORASEPTIC) 1 spray, MUCOUS MEMBRANE (TOPICAL MOUTH & THROAT), EVERY 2 HOURS NEEDED, Starting on Tue04/07/25 at 0917, Until Tue04/10/25 at 2125, Sore Throat, Use if unable to suck on lozenge or based onpatient preference Environmental Hazardous Drug: Use appropriate PPE. Given04/07/2025 12:00 PM EST1 spray piperacillin-tazobactam iv piggyback 3.375 g in dextrose (iso-osmotic) 50 mL (ZOSYN) 3.375 g, INTRAVENOUS, at 100 mL/hr, Administer over 30 Minutes, EVERY 6 HOURS, First dose on Tue04/08/25 at 2300, Until Discontinued, Refrigerate, Antimicrobial indication: Empiric, Infectious source(s): Respiratory, Pharmacist may modify dose per [facility] dose optimization consult agreement: Yes New Bag/Syringe/Lqvvwk7204/10/2025 4:58 AM EST3.375 g100 mL/hrNew Bag/Syringe/Zupfen9704/09/2025 11:21 PM EST3.375 g100 mL/hrNew Bag/Syringe/Bottle 04/09/2025 5:04 PM EST3.375 g100 mL/hr potassium chloride ER 40 mEq tab(s) (KLOR-CON) 40 mEq, ORAL, ONCE, 1 dose, On Tue04/10/25 at 0830, Swallow whole; DO NOT crush or chew. If patient unable to swallow whole tablet; dissolve whole tablet (do not crush) in 120 mL of water prior to administration (may take up to 2 minutes to dissolve). Given04/10/2025 8:22 AM EST40 mEq potassium chloride iv piggyback 20 mEq/100 mL 20 mEq, INTRAVENOUS, at 50-100 mL/hr, Administer over 1-2 Hours, EVERY 1 HOUR, 2 doses, First dose on Tue04/09/25 at 0700, Last dose on Tue04/09/25 at 0800, NONCYTOTOXIC VESICANT If ordered with infusion rate range, start with maximum infusion rate and decrease rate if infusion is not tolerated New Bag/Syringe/Bqppyi2204/09/2025 9:50 AM EST20 fWd560 mL/hrNew Bag/Syringe/Kbuigp5004/09/2025 8:34 AM EST20 iXy726 mL/hr potassium phosphate 30 mmol in NaCl 0.9% 250 mL 30 mmol, INTRAVENOUS, at 41.67 mL/hr, Administer over 6 Hours, ONCE, 1 dose, On Tue04/08/25 at 0900, 3 mmol of PHOSPHATE is equal to 4.4 mEq of POTASSIUM - Refrigerate New Bag/Syringe/Mwrmhb0204/08/2025 11:48 AM EST30 mmol41.67 mL/hr scopolamine (delivers 1 mg over 3 days) 1 patch (TRANSDERM-SCOP) 1 patch, TRANSDERMAL, EVERY 72 HOURS, First dose on Tue04/05/25 at 0630, Until Discontinued, Applypatch behind ear. Each time a new patch is needed it should be placed behind the alternate ear fromthe previous patch. Remove old patch. Each transdermal system contains 1.5 mg scopolamine base and delivers 1 mg over 3 days., Preprocedure Given04/05/2025 6:55 AM EST1 patchEar, Right simethicone 80 mg oral liquid (MYLICON) 80 mg, ORAL, EVERY 8 HOURS, First dose on Tue04/06/25 at 1130, Until Discontinued, Shake Well Given04/10/2025 4:58 AM EST80 vrIzonl2404/09/2025 8:37 PM EST80 ijEodbs7504/09/2025 5:33 AM EST80 mg sodium chloride 0.9 % (flush) 2-10 mL (BD POSIFLUSH) 2-10 mL, INTRAVENOUS, DIRECTED NEEDED, 1 dose, Starting on Tue04/06/25 at 0610, Until Tue04/10/25 at 2125, Per Protocol - for use during ECHO procedure only sodium phosphate 15 mmol in D5W 250 mL 15 mmol, INTRAVENOUS, at 41.67-62.5 mL/hr, Administer over 4-6 Hours, ONCE, 1 dose, On Tue04/06/25at 0600, 3 mmol of PHOSPHATE = 4 mEq of SODIUM - Refrigerate If ordered with infusion rate range, start with maximum infusion rate and decrease rate if infusion is not tolerated New Bag/Syringe/Jrcgpa0604/06/2025 7:00 AM EST15 mmol62.5 mL/hr sodium phosphate 15 mmol in D5W 250 mL 15 mmol, INTRAVENOUS, at 41.67-62.5 mL/hr, Administer over 4-6 Hours, ONCE, 1 dose, On Tue04/07/25at 1100, 3 mmol of PHOSPHATE = 4 mEq of SODIUM - Refrigerate If ordered with infusion rate range, start with maximum infusion rate and decrease rate if infusion is not tolerated New Bag/Syringe/Pagkvy9304/07/2025 11:25 AM EST15 mmol62.5 mL/hr sodium phosphate 30 mmol in D5W 250 mL 30 mmol, INTRAVENOUS, at 41.67-62.5 mL/hr, Administer over 4-6 Hours, ONCE, 1 dose, On Tue04/06/25at 1330, 3 mmol of PHOSPHATE = 4 mEq of SODIUM - Refrigerate If ordered with infusion rate range, start with maximum infusion rate and decrease rate if infusion is not tolerated New Bag/Syringe/Rasvee1904/06/2025 3:25 PM EST30 mmol62.5 mL/hr sodium phosphate 45 mmol in NaCl 0.9% 250 mL 45 mmol, INTRAVENOUS, at 41.67-62.5 mL/hr, Administer over 4-6 Hours, ONCE, 1 dose, On Tue04/10/25at 0700, 3 mmol of PHOSPHATE = 4 mEq of SODIUM - Refrigerate If ordered with infusion rate range, start with maximum infusion rate and decrease rate if infusion is not tolerated New Bag/Syringe/Nyewii9104/10/2025 8:01 AM EST45 mmol41.67 mL/hr tiotropium 2.5 mcg - olodaterol 2.5 mcg inhaler (STIOLTO RESPIMAT) 2 puff, INHALATION, DAILY, First dose on Tue04/05/25 at 1630, Until Discontinued, lgjjbzvwvt-gdhwytkyrprsah-exhczvqvpq fumarate inhalation (BREZTRI AEROSPHERE) substituted to mometasone furoate inhalation (ASMANEX TWISTHALER) and tiotropium bromide-olodaterol inhalation (STIOLTO RESPIMAT) per Pharmacy and Therapeutics Committee Given04/06/2025 10:10 AM EST2 puffsdocumented in this encounter Active and Recently Administered Medications Times are shown in EST.Medication Order acetaminophen 1,000 mg CUP (TYLENOL) (CANCELED) 1,000 mg, NASOGASTRIC, EVERY 6 HOURS, First dose (after last modification) on Tue04/07/25 at 1200,Until Discontinued * 0632 (Given - Provider: Daksha Lin RN) * 1152 (Given - Provider: Mariya Paul, MATHEUS) * 1707 (Not Given - Provider: Mariya Paul RN - Reason: Lab/Clinical Condition Not Within parameters) * 0000 (Not Given - Provider: Arti Martin RN - Reason: Patient Declined. LIP Notified) * 0533 (Given - Provider: Arti Martin RN) * 1326 (Given - Provider: Farhat Beavers, MATHEUS) * 1800 (Not Given - Provider: Farhat Beavers RN - Reason: Based on RT/Nurses Assessment, LIP Notified) acetaminophen 1,000 mg CUP (TYLENOL) 1,000 mg, ORAL, EVERY 6 HOURS, First dose (after last modification) on Tue04/10/25 at 0000, Until Discontinued * 2321 (Given - Provider: Arti Martin RN) * 0457 (Given - Provider: Arti Martin RN) * 1222 (Given - Provider: Farhat Beavers, MATHEUS) * 1800 (Due) amitriptyline 50 mg tab(s) (ELAVIL) (CANCELED) 50 mg, NASOGASTRIC, AT BEDTIME, First dose (after last modification) on Tue04/07/25 at 2100, UntilDiscontinued * 2145 (Given - Provider: Arti Martin RN) amitriptyline 50 mg tab(s) (ELAVIL) 50 mg, ORAL, AT BEDTIME, First dose (after last modification) on Tue04/09/25 at 2100, Until Discontinued * 2036 (Given - Provider: Arti Martin RN) amoxicillin-clavulanate potassium 875 mg tab(s) (AUGMENTIN) 875 mg, ORAL, EVERY 12 HOURS, 14 doses, First dose on Tue04/10/25 at 0830, Last dose on Tue04/16/25 at 2100, Antimicrobial indication: Empiric, Infectious source(s): Respiratory, Pharmacist may modify dose per [facility] dose optimization consult agreement: Yes * 0822 (Given - Provider: Farhat Beavers RN) ARIPiprazole 30 mg tab(s) (ABILIFY) (CANCELED) 30 mg, NASOGASTRIC, DAILY, First dose (after last modification) on Tue04/08/25 at 0900, Until Discontinued, May be administered with or without food. * 0824 (Given - Provider: Mariya Paul RN) * 0857 (Given - Provider: Oskar Landaverde) ARIPiprazole 30 mg tab(s) (ABILIFY) 30 mg, ORAL, DAILY, First dose (after last modification) on Tue04/10/25 at 0900, Until Discontinued, May be administered with or without food. * 0801 (Given - Provider: Farhat Beavers RN) bisacodyl 10 mg suppository (DULCOLAX) (COMPLETED) 10 mg, RECTAL, ONCE, 1 dose, On Tue04/08/25 at 1400, FOR RECTAL USE * 1432 (Given - Provider: Mariya Paul, MATHEUS) xroxawjghs-xtfjevby-zqkgcolhib 160-9-4.8 mcg/actuation HFA 2 puff (BREZTRI) 2 puff, INHALATION, 2 TIMES DAILY, First dose on Tue04/07/25 at 1100, Until Discontinued, ok to use the home medication * 0801 (Given - Provider: Mackenzie Orozco, LOSS PREVENTION AGENT) * 220 (Given - Provider: Jazz Hanna, LOSS PREVENTION AGENT - Comment: Patient rinsed mouth after tx) * 1010 (Given - Provider: Keya Xie, LOSS PREVENTION AGENT) * 193 (Given - Provider: Luis E Stahl, LOSS PREVENTION AGENT) * 0853 (Given - Provider: Bri Moya, ASSISTANT OPERATOR) dextrose 10% iv bolus (COMPLETED) 250 mL, INTRAVENOUS, at 250 mL/hr, Administer over 1 Hours, ONCE, 1 dose, On Tue04/10/25 at 0030, - NONCYTOTOXIC VESICANT - * 0011 (New Bag/Syringe/Bottle - Provider: Arti Martin RN) * 0111 (Infusion Complete - Provider: Arti Martin RN) enoxaparin 40 mg injection (LOVENOX) (CANCELED) 40 mg, SUBCUTANEOUS, DAILY, First dose on Tue04/06/25 at 0900, Until Discontinued * 0824 (Given - Provider: Mariya Paul RN) * 0857 (Given - Provider: Oskar Landaverde) * 0801 (Given - Provider: Farhat Beavers RN) enoxaparin 40 mg injection (LOVENOX) 40 mg, SUBCUTANEOUS, DAILY, First dose (after last reorder) on Beatrice 04/11/25 at 0900, Until Discontinued erythromycin 250 mg in NaCl 0.9% 100 mL (CANCELED) 250 mg, INTRAVENOUS, at 200 mL/hr, Administer over 30 Minutes, EVERY 6 HOURS, First dose on Tue04/08/25 at 0730, Until Discontinued, Refrigerate - EXP: (24 HR) * 0730 (New Bag/Syringe/Bottle - Provider: Mariya Paul RN) * 0737 (Infusion Complete - Provider: Mariya Paul RN) erythromycin 250 mg in NaCl 0.9% 100 mL (CANCELED) 250 mg, INTRAVENOUS, at 200 mL/hr, Administer over 30 Minutes, EVERY 8 HOURS, First dose (after last modification) on Tue04/08/25 at 1400, Until Discontinued, Refrigerate - EXP: (24 HR) * 0730 (New Bag/Syringe/Bottle - Provider: Mariya Paul RN) * 0800 (Infusion Complete - Provider: Mariya Paul RN) * 1432 (New Bag/Syringe/Bottle - Provider: Mariya Paul RN) * 1502 (Infusion Complete - Provider: Mariya Paul RN) * 2145 (New Bag/Syringe/Bottle - Provider: Arti Martin RN) * 2215 (Infusion Complete - Provider: Arti Martin RN) * 0906 (New Bag/Syringe/Bottle - Provider: Oskar Landaverde) * 0936 (Infusion Complete - Provider: Oskar Landaverde) * 1326 (New Bag/Syringe/Bottle - Provider: Farhat Beavers RN) * 1356 (Infusion Complete - Provider: Farhat Beavers RN) FLUoxetine 20 mg cap(s) (PROzac) (CANCELED) 20 mg, NASOGASTRIC, DAILY, First dose (after last modification) on Tue04/08/25 at 0900, Until Discontinued * 0824 (Given - Provider: Mariya Paul RN) * 0856 (Given - Provider: Oskar Landaverde) FLUoxetine 20 mg cap(s) (PROzac) 20 mg, ORAL, DAILY, First dose (after last modification) on Tue04/10/25 at 0900, Until Discontinued * 0801 (Given - Provider: Farhat Beavers RN) levothyroxine 50 mcg tab(s) (SYNTHROID) 50 mcg, ORAL, DAILY AT 6 AM, First dose on Tue04/06/25 at 0600, Until Discontinued * 0533 (Given - Provider: Daksha Lin RN) * 0533 (Given - Provider: Arti Martin RN) * 0457 (Given - Provider: Arti Martin, MATHEUS) metoclopramide HCl 10 mg injection (REGLAN) (COMPLETED) 10 mg, INTRAVENOUS, EVERY 8 HOURS, 6 doses, First dose on Tue04/06/25 at 1130, Last dose on Tue04/08/25 at 0600, Pharmacist may modify dose per [facility] dose optimization consult agreement: Yes * 0533 (Given - Provider: Daksha Lin RN) metoclopramide HCl 10 mg tab(s) (REGLAN) 10 mg, NASOGASTRIC, 3 TIMES DAILY, First dose (after last modification) on Tue04/09/25 at 1000, Until Discontinued, Pharmacist may modify dose per [facility] dose optimization consult agreement: Yes * 1124 (Given - Provider: Oskar Landaverde) * 2037 (Given - Provider: Arti Martin RN) * 0801 (Given - Provider: Farhat Beavers RN) * 1222 (Given - Provider: Farhat Beavers, RN) metoprolol tartrate (short acting) 25 mg tab(s) (LOPRESSOR) (CANCELED) 25 mg, NASOGASTRIC, EVERY 8 HOURS, First dose (after last modification) on Tue04/07/25 at 1400, Until Discontinued, Hold if HR < 60 or SBP < 110 or DBP < 60 * 0533 (Given - Provider: Daksha Lin RN) * 1432 (Given - Provider: Mariya Paul, MATHEUS) * 2145 (Given - Provider: Arti Martin RN) * 0534 (Given - Provider: Arti Martin RN) * 1326 (Given - Provider: Farhat Beavers, RN) metoprolol tartrate (short acting) 25 mg tab(s) (LOPRESSOR) 25 mg, ORAL, EVERY 8 HOURS, First dose (after last modification) on Tue04/09/25 at 2200, Until Discontinued, Hold if HR < 60 or SBP < 110 or DBP < 60 , On hold since Tue04/10/2025 at 0800 until Tue04/11/2025 at 1800 * 2036 (Given - Provider: Arti Martin RN) * 0457 (Not Given - Provider: Arti Martin RN - Reason: Held Because HR/BP Not Within Ordered Limits) * 0800 (Order Held by LIP - Provider: Lou Richardson APRN.CNP - Reason: LIP Order to Hold This Dose) * 1400 (Automatically Held - Provider: Lou Richardson APRN.CNP) * 212 (Order Unheld by LIP - Provider: Reg In Adtr) ondansetron (PF) 4 mg injection (ZOFRAN) (CANCELED) 4 mg, INTRAVENOUS, EVERY 6 HOURS, First dose on Tue04/05/25 at 1800, Until Discontinued, Give IV push over 2 minutes * 0533 (Given - Provider: Daksha Lin RN) * 1153 (Given - Provider: Mariya Paul RN) * 1707 (Given - Provider: Mariya Paul RN) * 0000 (Given - Provider: Arti Martin RN) * 0533 (Given - Provider: Arti Martin RN) * 1325 (Given - Provider: Farhat Beavers, RN) * 1800 (Not Given - Provider: Farhat Beavers RN - Reason: Based on RT/Nurses Assessment, LIP Notified - Comment: last dose given late to early to give) pantoprazole DR 40 mg tab(s) (PROTONIX) 40 mg, ORAL, 2 TIMES DAILY BEFORE MEALS (0600/1600), First dose on Tue04/10/25 at 1800, Until Discontinued, Swallow whole; DO NOT crush or chew. * 1800 (Due) piperacillin-tazobactam iv piggyback 3.375 g in dextrose (iso-osmotic) 50 mL (ZOSYN) (CANCELED) 3.375 g, INTRAVENOUS, at 100 mL/hr, Administer over 30 Minutes, EVERY 6 HOURS, First dose on Tue04/08/25 at 2300, Until Discontinued, Refrigerate, Antimicrobial indication: Empiric, Infectious source(s): Respiratory, Pharmacist may modify dose per [facility] dose optimization consult agreement: Yes * 2300 (New Bag/Syringe/Bottle - Provider: Arti Martin RN) * 2330 (Infusion Complete - Provider: Arti Martin RN) * 0533 (New Bag/Syringe/Bottle - Provider: Arti Martin RN) * 0603 (Infusion Complete - Provider: Arti Martin RN) * 1326 (New Bag/Syringe/Bottle - Provider: Farhat Beavers RN) * 1356 (Infusion Complete - Provider: Farhat Beavers RN) * 1704 (New Bag/Syringe/Bottle - Provider: Farhat Beavers RN) * 1734 (Infusion Complete - Provider: Farhat Beavers RN) * 2321 (New Bag/Syringe/Bottle - Provider: Arti Martin RN) * 2351 (Infusion Complete - Provider: Arti Martin, MATHEUS) * 0458 (New Bag/Syringe/Bottle - Provider: Arti Martin, MATHEUS) * 0528 (Infusion Complete - Provider: Arti Martin RN) potassium chloride ER 40 mEq tab(s) (KLOR-CON) (COMPLETED) 40 mEq, ORAL, ONCE, 1 dose, On Tue04/10/25 at 0830, Swallow whole; DO NOT crush or chew. If patient unable to swallow whole tablet; dissolve whole tablet (do not crush) in 120 mL of water prior to administration (may take up to 2 minutes to dissolve). * 0822 (Given - Provider: Farhat Beavers RN) potassium chloride iv piggyback 20 mEq/100 mL (COMPLETED) 20 mEq, INTRAVENOUS, at 50-100 mL/hr, Administer over 1-2 Hours, EVERY 1 HOUR, 2 doses, First dose on Tue04/09/25 at 0700, Last dose on Tue04/09/25 at 0800, NONCYTOTOXIC VESICANT If ordered with infusion rate range, start with maximum infusion rate and decrease rate if infusion is not tolerated * 0834 (New Bag/Syringe/Bottle - Provider: Farhat Beavers RN) * 0934 (Infusion Complete - Provider: Farhat Beavers RN) * 0950 (New Bag/Syringe/Bottle - Provider: Farhat Beavers RN) * 1050 (Infusion Complete - Provider: Farhat Beavers RN) potassium phosphate 30 mmol in NaCl 0.9% 250 mL (COMPLETED) 30 mmol, INTRAVENOUS, at 41.67 mL/hr, Administer over 6 Hours, ONCE, 1 dose, On Tue04/08/25 at 0900, 3 mmol of PHOSPHATE is equal to 4.4 mEq of POTASSIUM - Refrigerate * 1148 (New Bag/Syringe/Bottle - Provider: Mariya Paul RN) * 1748 (Infusion Complete - Provider: Arti Martin, MATHEUS) simethicone 80 mg oral liquid (MYLICON) 80 mg, ORAL, EVERY 8 HOURS, First dose on Tue04/06/25 at 1130, Until Discontinued, Shake Well * 0533 (Given - Provider: Daksha Lin RN) * 1432 (Given - Provider: Mariya Paul, MATHEUS) * 2146 (Given - Provider: Arti Martin, RN) * 0533 (Given - Provider: Arti Martin, RN) * 1400 (Not Given - Provider: Farhat Beavers RN - Reason: Based on RT/Nurses Assessment, LIP Notified) * 2036 (Given - Provider: Arti Martin, MATHEUS) * 0458 (Given - Provider: Arti Martin, MATHEUS) * 1400 (Not Given - Provider: Farhat Beavers RN - Reason: Patient Declined. LIP Notified) sodium phosphate 45 mmol in NaCl 0.9% 250 mL (COMPLETED) 45 mmol, INTRAVENOUS, at 41.67-62.5 mL/hr, Administer over 4-6 Hours, ONCE, 1 dose, On Tue04/10/25at 0700, 3 mmol of PHOSPHATE = 4 mEq of SODIUM - Refrigerate If ordered with infusion rate range, start with maximum infusion rate and decrease rate if infusion is not tolerated * 0801 (New Bag/Syringe/Bottle - Provider: Farhat Beavers, RN) * 1401 (Infusion Complete - Provider: Farhat Beavers, RN) Medication Order/ dextrose 5% in LR infusion (D5-LR) 5-30 mL/hr, INTRAVENOUS, CONTINUOUS, Starting on Tue04/08/25 at 1130, Until Tue04/10/25 at 2124 * 1431 (New Bag/Syringe/Bottle - Provider: Mariya Paul, MATHEUS) * 1901 (Rate/Dose Change - Provider: Arti Martin, MATHEUS) * 2044 (New Bag/Syringe/Bottle - Provider: Arti Martin RN) * 0804 (Rate/Dose Change - Provider: Farhat Beavers, MATHEUS) * 2124 (Due: Order Ending - Provider: Reg In Adtr - Comment: [Order ends at this time. Document the following action when infusion is complete: Infusion Complete]) Medication Order/ albuterol HFA 90 mcg/actuation 2 puff (PROVENTIL HFA, VENTOLIN HFA) 2 puff, INHALATION, EVERY 4 HOURS NEEDED, Starting on Tue04/10/25 at 0922, Until Tue04/10/25 at 2124, wheezing/shortness of breath, SHAKE WELL BEFORE USING -Pharmaceutical Waste: Aerosol- * 09 (Given - Provider: Bri Moya, JACKIE) benzocaine-menthol 1 lozenge (CHLORASEPTIC)(Linked Group 1) 1 lozenge, MUCOUS MEMBRANE (TOPICAL MOUTH & THROAT), EVERY 2 HOURS NEEDED, Starting on Tue04/07/25 at 0917, Until Tue04/10/25 at 2124, Sore Throat, Use if able to suck on lozenge or based onpatient preference dextrose 10% iv bolus(Linked Group 2) 125 mL (12.5 g), INTRAVENOUS, at 750 mL/hr, Administer over 10 Minutes, NEEDED, Starting on 04/06/25 at 1301, Until Tue04/10/25 at 2124, low blood sugar, Use when blood glucose is less than 70 mg/dL (60 mg/dL if ) and patient has IV access Program on smart pump using dextrose 10% bolus file - NONCYTOTOXIC VESICANT - dextrose 15 gram/32 mL 15 g (TRUEPLUS)(Linked Group 2) 15 g, ORAL, NEEDED, Starting on 04/06/25 at 1301, Until Tue04/10/25 at 5, low blood sugar, Use when blood glucose is less than 70 mg/dL (60 mg/dL if ) and patient demonstrates diminished level of consciousness but is able to swallow without risk of aspiration Each 32 mL PACKET ofdextrose oral gel delivers a DOSE = 15 GRAMS of CARBOHYDRATE --- Administer ONLY if the patient is awake/alert and able to swallow. glucagon 1 mg injection(Linked Group 2) 1 mg, INTRAMUSCULAR, NEEDED, Starting on 04/06/25 at 1301, Until Tue04/10/25 at 2124, low blood sugar, Use when blood glucose is less than 70 mg/dL (60 mg/dL if ) and patient has no IV access HYDROmorphone 0.2 mg injection (DILAUDID) 0.2 mg, INTRAVENOUS, EVERY 4 HOURS NEEDED, Starting on Tue04/10/25 at 0810, Until Tue04/10/25 at 2124, breakthrough pain, Caution: IV hydromorphone is approximately 8 times MORE POTENT than IV morphine. For example, hydromorphone 1mg IV = morphine 8mg IV HYDROmorphone 0.4 mg injection (DILAUDID) (CANCELED) 0.4 mg, INTRAVENOUS, EVERY 3 HOURS NEEDED, Starting on 04/07/25 at 1409, Until Tue04/10/25 at 0810, breakthrough pain, Caution: IV hydromorphone is approximately 8 times MORE POTENT than IV morphine. For example, hydromorphone 1mg IV = morphine 8mg IV * 0154 (Given - Provider: Daksha Lin RN) * 0589 (Given - Provider: Daksha Lin RN) * 0953 (Given - Provider: Mariya Paul, RN) * 1706 (Given - Provider: Mariya Paul, RN) * 0301 (Given - Provider: Arti Martin, RN) * 0834 (Given - Provider: Farhat Beavers, RN) * 1325 (Given - Provider: Farhat Beavers, RN) magnesium sulfate iv piggyback in sterile water 2 g 50 mL 2 g, INTRAVENOUS, at 25 mL/hr, Administer over 2 Hours, PRN(NO DISPENSE), Starting on Tue04/05/25 at 1610, Until Tue04/10/25 at 2125, Low Magnesium, see admin instructions, DO NOT USE FOR PATIENTS WITH SCR GREATER THAN 1.4, DIALYSIS, RHABDOMYOLYSIS, DKA, AGE LESS THAN 15, OR WEIGHT LESS THAN 40 KG Mg Level Dose Re-Check 1.0-1.6 mg/dl 2g every 2 hr x 2 doses am labs Less than 1 mg/dl 2g every 2 hr x 3 doses* 2 hours *Notify MD for Mg less than 1 -Goal serum Mg 1.7- 2.5 mg/dL -Max infusion rate = 1 g/hr Magnesium sulfate iv bolus will be infused at a rate of 1 gram/hr The following nursing units may administer 2 g dose over 1 hour if necessary: ICUs/PACU/ED, Adult Hematology/Oncology, Labor and Delivery, Cardiac Stepdown, Headache Clinic If necessary, a magnesium sulfate bolus may beadministered greater than 2 g/hr for the following indications: Adult and Pediatric Asthma Exacerbations, [place], Pediatric BMT and Hematology/Oncology, Eclampsia or Preeclampsia NaCl 0.9% iv flush bag 20 mL, INTRAVENOUS, NEEDED, Starting on 04/06/25 at 0547, Until Tue04/10/25 at 2125, See admin instructions, If no compatible primary is already running, infuse NaCl 0.9% as primary to flush tubing after non-chemotherapy, non-immunotherapy intermittent infusions. Administer at the same rateas intermittent infusion. Select the Flush Bag file on smart pump. ondansetron (PF) 4 mg injection (ZOFRAN) 4 mg, INTRAVENOUS, EVERY 6 HOURS NEEDED, Starting on Tue04/09/25 at 1900, Until Tue04/10/25 [id number], Nausea/Vomiting - First Line - Parenteral, Give IV push over 2 minutes oxyCODONE 5-10 mg oral liquid (ROXICODONE) (CANCELED) 5-10 mg, ORAL, EVERY 3 HOURS NEEDED, Starting on Tue04/06/25 at 0555, Until Tue04/09/25 at 1901, Moderate Pain (4-6) - Enteral, Severe Pain (>/=7) - Enteral * 0313 (Given - Provider: Daksha Lin RN) * 0825 (Given - Provider: Mariya Paul RN) * 1432 (Given - Provider: Mariya Paul RN) * 2151 (Given - Provider: Arti Martin RN) * 0117 (Given - Provider: Arti Martin RN) * 0533 (Given - Provider: Arti Martin RN) * 1124 (Given - Provider: Oskar Landaverde) * 1704 (Given - Provider: Farhat Beavers, MATHEUS) oxyCODONE 5-10 mg oral liquid (ROXICODONE) (CANCELED) 5-10 mg, ORAL, EVERY 3 HOURS NEEDED, Starting on Tue04/09/25 at 1900, Until Tue04/10/25 at 0810, Severe Pain (>/=7) - Enteral * 2036 (Given - Provider: Arti Martin RN) * 0801 (Given - Provider: Farhat Beavers, MATHEUS) oxyCODONE 5-10 mg oral liquid (ROXICODONE) 5-10 mg, ORAL, EVERY 6 HOURS NEEDED, Starting on Tue04/10/25 at 0810, Until Tue04/10/25 at 2125, Severe Pain (>/=7) - Enteral * 1400 (Given - Provider: Farhat Beavers, MATHEUS) perflutren lipid microspheres 1.1 mg/mL 1.3 mL injection (DEFINITY)(Linked Group 3) 1.3 mL, INTRAVENOUS, DIRECTED NEEDED, 1 dose, Starting on 04/06/25 at 0610, Until Tue04/10/25 at 2125, Per Protocol - for use during ECHO procedure only, Perflutren must be activated priorto administration. Once activated: 1. Diluted IV Bolus: Dilute 1.3 mL of Definity?? with 8.7 mL of preservative-free saline 2. Undiluted IV Bolus: Administer undiluted Definity?? followed by a preservative-free 10 mL saline flush. phenol 1 spray (CHLORASEPTIC)(Linked Group 1) 1 spray, MUCOUS MEMBRANE (TOPICAL MOUTH & THROAT), EVERY 2 HOURS NEEDED, Starting on 04/07/25 at 0917, Until Tue04/10/25 at 2125, Sore Throat, Use if unable to suck on lozenge or based onpatient preference Environmental Hazardous Drug: Use appropriate PPE. prochlorperazine 5 mg injection (COMPAZINE) 5 mg, INTRAVENOUS, EVERY 6 HOURS NEEDED, Starting on Tue04/05/25 at 1610, Until Tue04/10/25 [id number], Nausea/Vomiting - Second Line - Parenteral, Protect From Light sodium chloride 0.9 % (flush) 2-10 mL (BD POSIFLUSH)(Linked Group 3) 2-10 mL, INTRAVENOUS, DIRECTED NEEDED, 1 dose, Starting on 04/06/25 at 0610, Until Tue04/10/25 at 2125, Per Protocol - for use during ECHO procedure only Order Group 1: phenol 1 spray (CHLORASEPTIC)Jump to med 1 spray, MUCOUS MEMBRANE (TOPICAL MOUTH & THROAT), EVERY 2 HOURS NEEDED, Starting on 04/07/25 at 0917, Until Tue04/10/25 at 2125, Sore Throat, Use if unable to suck on lozenge or based onpatient preference Environmental Hazardous Drug: Use appropriate PPE. Or benzocaine-menthol 1 lozenge (CHLORASEPTIC)Jump to med 1 lozenge, MUCOUS MEMBRANE (TOPICAL MOUTH & THROAT), EVERY 2 HOURS NEEDED, Starting on 04/07/25 at 0917, Until Tue04/10/25 at 2125, Sore Throat, Use if able to suck on lozenge or based onpatient preference Group 2: dextrose 15 gram/32 mL 15 g (TRUEPLUS)Jump to med 15 g, ORAL, NEEDED, Starting on 04/06/25 at 1301, Until Tue04/10/25 at 2125, low blood sugar, Use when blood glucose is less than 70 mg/dL (60 mg/dL if ) and patient demonstrates diminished level of consciousness but is able to swallow without risk of aspiration Each 32 mL PACKET ofdextrose oral gel delivers a DOSE = 15 GRAMS of CARBOHYDRATE --- Administer ONLY if the patient is awake/alert and able to swallow. Or glucagon 1 mg injectionJump to med 1 mg, INTRAMUSCULAR, NEEDED, Starting on 04/06/25 at 1301, Until Tue04/10/25 at 2125, low blood sugar, Use when blood glucose is less than 70 mg/dL (60 mg/dL if ) and patient has no IV access Or dextrose 10% iv bolusJump to med 125 mL (12.5 g), INTRAVENOUS, at 750 mL/hr, Administer over 10 Minutes, NEEDED, Starting on 04/06/25 at 1301, Until Tue04/10/25 at 2125, low blood sugar, Use when blood glucose is less than 70 mg/dL (60 mg/dL if ) and patient has IV access Program on smart pump using dextrose 10% bolus file - NONCYTOTOXIC VESICANT - Group 3: ECHO (COMPLETED) ONCE, On 04/06/25 at 0615, For 1 occurrence, Routine And sodium chloride 0.9 % (flush) 2-10 mL (BD POSIFLUSH)Jump to med 2-10 mL, INTRAVENOUS, DIRECTED NEEDED, 1 dose, Starting on 04/06/25 at 0610, Until Tue04/10/25 at 212, Per Protocol - for use during ECHO procedure only And perflutren lipid microspheres 1.1 mg/mL 1.3 mL injection (DEFINITY)Jump to med 1.3 mL, INTRAVENOUS, DIRECTED NEEDED, 1 dose, Starting on 04/06/25 at 0610, Until Tue04/10/25 at 212, Per Protocol - for use during ECHO procedure only, Perflutren must be activated priorto administration. Once activated: 1. Diluted IV Bolus: Dilute 1.3 mL of Definity?? with 8.7 mL of preservative-free saline 2. Undiluted IV Bolus: Administer undiluted Definity?? followed by a preservative-free 10 mL saline flush. documented in this encounter Care Teams Team MemberRelationshipSpecialtyStart DateEnd Date Jose Burrell Jr. [facility]09/07/00 Sabrina Wilkinson MD [address] [place], [place] [address], [place] [address] Gastroenterology02/14/25documented as of this encounter
--- OUTSIDE RECORDS SUMMARY | 2025-04-05 07:30 | XMS_ITS | Encounter Summary ---
Author Organization [facility] Address [address] [place] [address] Care Team Providers [facility] [place] [employer] Leader Name Role Phone Jose Burrell Jr. Primary Care Provider Sabrina Felix MD Unavailable [phone] Source Comments In the event this information is protected by the Federal Confidentiality of Alcohol and Drug AbusePatient Records regulations: The Federal rules restrict any use of the information to criminally investigate or prosecute any alcohol or drug abuse patient.[facility] Reason for Visit * Auth/Cert (Routine)SpecialtyDiagnoses / ProceduresReferred By ContactReferred To ContactADMITTING Diagnoses Preoperative examination Hiatal hernia Preoperative examination [Z01.818] Hiatal hernia [K44.9] Procedures LAPS RPR PARAESPHGL HRNA INCL FUNDPLSTY W/MESH LAPAROSCOPIC RPR PARAESOPHAGEAL HERNIA W/O FUNDOPLASTY W/ MESH Admitting [address] [place], [place] [address] Referral IDStatusReasonStart DateExpiration DateVisits RequestedVisits [id number] Encounter Details DateTypeDepartmentCare Team (Latest Contact Info)Levvnibcbiq26/14/2025 7:30 AM EST - 04/05/2025 10:15 AM ESTSurgery Admitting [address] [place], [place] [id number] Jeramie Joo [address] [place] [address] LAPAROSCOPIC RPR PARAESOPHAGEAL HERNIA W/O FUNDOPLASTY W/ MESH Surgery Details Date/TimeStatusLocationORServicePatient ClassCase ClassCase TypeTrauma Case? 04/05/2025 7:30 AMPostedMC MAIN HEDRWOVURL25JmdftnoFbraumsrur SurgeryElective Panel 1 ProcedureLRBAnesOp RegionWound ClassCommentsLAPAROSCOPIC RPR PARAESOPHAGEAL HERNIA W/O FUNDOPLASTY W/ MESHN/AGeneralAbdomenClean SurgeonSurgeon RoleSOlga Carrillo1Jae Melgar MD Resident - Dirxfzwif2KdlddDave garcia MDResident - Prswqelmo6xsxuhqwacd in this encounter Social History Tobacco UseTypesPacks/DayYears UsedDateSmoking Tobacco: FormerCigarettesPassive Smoke Exposure: NeverSmokeless Tobacco: NeverAlcohol UseStandard Drinks/Week CommentsNever0 (1 standard drink = 0.6 oz pure alcohol)Area Deprivation Index AnswerDate RecordedNational Score (1-100), lower number is lower risk75 02/21/2025State Score (1-10), lower number is lower qtox848Data from: https://www.neighborhoodatlas.[facility].edu/. Last address used for jbunnrgdcfu[address]02/21/2025CommentsNoSex and Gender Information ValueDate RecordedSex Assigned at BirthNot on fileLegal LvhQzowmb68/02/2012 9:17 AM ESTGender IdentityNot on fileSexual OrientationNot on filedocumented as of this encounter Last Filed Vital Signs Vital SignReadingTime TakenCommentsBlood Ibrlvnta677/5704/05/2025 6:35 AM EST Ymzrt791604/05/2025 6:35 AM JZAOiofnovkupa60.3 ??C (97.3 ??F)04/05/2025 6:35 AM ESTRespiratory Ixen473506/05/2024 6:35 AM ESTOxygen Bundhpqhgo83%04/05/2025 6:35 AM ESTInhaled Oxygen Concentration--Weight--Height--Body Mass Index--documented in this encounter Functional Status * Are you deaf or do you have serious difficulty hearing?AnswerDate of HkvowdzswzBickemVx00/19/2025 6:57 PM Jovita Vogel RN * Are you blind or do you have serious difficulty seeing, even when wearing glasses?AnswerDate of IbbcmicierFgqskrMp75/19/2025 6:57 PM Jovita Vogel RN * Do you have serious difficulty walking or climbing stairs?AnswerDate of BuexitzooqHmdlxcWb81/19/2025 6:57 PM Jovita Vogel RN * Do you have difficulty dressing or bathing?AnswerDate of AssessmentAuthorNo 04/10/2025 6:57 PM Jovita Vogel RN * Because of a physical, mental, or emotional condition, do you have difficulty doing errands alone such as visiting a doctor's office or shopping?AnswerDate of NftuggizkrYffxkiKn31/19/2025 6:57 PM Jovita Vogel RN documented as of this encounter Mental Status * Because of a physical, mental, or emotional condition, do you have serious difficulty concentrating, remembering, or making decisions?AnswerEntry Date FtqgdsVn56/19/2025 6:57 PM Jovita Vogel RN documented in [...] Diagnosis POA Paraesophageal hernia Yes Aspiration pneumonia (HCC) No Chronic interstitial lung disease (HCC) Yes Ileus, postoperative (HCC) No Electrolyte imbalance No Malnutrition of mild degree (HCC) Yes PONV (postoperative nausea and vomiting) Yes Gastroesophageal reflux disease Yes Chronic renal insufficiency Yes CHF (congestive heart failure) (HCC) Yes Obesity, Class I, BMI 30-34.9 Yes S/P repair of paraesophageal hernia No Post-op pain No COPD (chronic obstructive pulmonary disease) (HCC) Yes PAF (paroxysmal atrial fibrillation) (HCC) No Mild pulmonary hypertension (HCC) Yes Essential hypertension Yes Resolved Hospital Problems [...] 30 mg tablet Commonly known as: ARACELIS ESPINOSA AEROSPHERE 160-9-4.8 mcg/actuation HFA aerosol inhaler Generic drug: kgvmzktsla-wielfcjl-xhmzczfqxv FARXIGA 10 mg tablet Generic drug: dapagliflozin [...] Your Medications These medications were sent to [facility] [place] [address] - [address] - [phone] [place] [address] amoxicillin-clavulanate potassium 875-125 mg per tablet metoclopramide [...] Value Calculated 04/10/2025 17:20 -15% Zip Code [address] [facility] READMISSION RISK Model 12% Admission Provider Speciality GENERAL SURGERY 7% Malnutrition 1 7% RDW (Max) 17.8 -6% ED visits (365d) 0 -6% Admissions (365d) 1 6% Abs Tamera (Standard Deviation) 3.01 5% procedure count 17 -5% Admissions (60d) 1 -5% Sodium (Avg) 139.71 I have performed the bqch-dm-wntl and relevant services for a total of [...] setting of post op afib with a AKFIW8KXMD score of 4, we would recommend anticoagulated with eliquis on discharge (5 mg BID) or set up with coumadin clinic close to her home in [place] - discontinue metoprolol on discharge - Discharge with a Ziopatch - mailed to home - Outpatient follow up with her wiring mechanic Dr. Miriam Saenz for further management of [...] These instructions explain what you or your healthcare administrator need to do to continue your care at home or at another healthcare facility Please go over these instructions with your nurse and healthcare administrator. If you are not sure about something, [...] Please be aware that in accordance with [place] law we can only provide you with [...] a pain management physician. You can call [phone] to get an appointment with a highway painter. Wound Care/Surgical Site Care: -Keep the surgical [...] the appointment we schedule for you, call [phone]. Test Results Not Available at this Time: Pathology: n/a Electronically Signed: Lou Richardson APRN.TOW MOTOR DRIVER documented in this encounter Medications at Time of Discharge MedicationSigDispense QuantityRefillsLast FilledStart DateEnd Date amitriptyline (ELAVIL) 50 mg tablet Take 50 mg by mouth daily at bedtime.11/19/2023 furosemide (LASIX) 20 mg tablet Take 20 mg by mouth two times a day. ALBUTEROL INHALATION Inhale as instructed. gzyhlvycuz-sjukcvyl-nqghixnkyf (BREZTRI AEROSPHERE) 160-9-4.8 mcg/actuation HFA aerosol inhaler [...] 12 hours for 13 doses. 13 tablet acetaminophen (TYLENOL EXTRA STRENGTH) 500 mg tablet [...] SERVICE DATE: 04/10/2025 SERVICE TIME: 1002 to 1059 ROOM: H071[facility] 6 Clicks Score: 22 DISCHARGE RECOMMENDATIONS Home [...] of daily living (ADL) TREATMENT INTERVENTIONS Self Snf Management (36809), Therapeutic Activity (64684) Timed Code Treatment (minutes): 57 Skilled Treatment [...] TIME: 11:58 AM Cosigned by Laura Menjivar OTR/L at 04/10/2025 12:54 PM EST Associated attestation - Laura Menjivar OTR/[place] - 04/10/2025 12:54 PM EST I reviewed and agree with the documentation corresponding to this therapy visit. SIGNATURE: BARBARA Talbot/Esperanza DATE: April 10, 2025 TIME: 12:54 PM * Bri Moya CRT - 04/10/2025 9:38 AM ESTSummary: Home oxygen qualificationt test 04/10/25936 Procedures Procedure Type A-M Home Oxygen Qualification [...] 22 Gauge 3 days Peripheral 04/07/25 1226 [facility] Midline Right Arm #4 English 2 days SURGERY/PROCEDURE: Procedure(s) and Anesthesia Type: [...] MD General Surgery Resident Debbie service (pager [phone]) Hernia Teams: Debbie (Cresencio Desouza Tastaldi): [phone] [place] (Renny Hickey Petro): [phone] After 6PM and on the weekends: [phone] The following problems are present on admission at this time: Heart failure Chronic pulmonary disease Hypertension Hypothyroidism Obesity Pulmonary circulation disease Continue current outpatient treatment plan and current medications for these conditions, except where otherwise noted. * Laura Menjivar, OTR/L - 04/09/2025 3:01 PM EST Occupational Therapy Evaluation Summary SERVICE DATE: 04/09/2025 SERVICE TIME: 1428 to 1451 ROOM: H071[facility] OT 6 Clicks Score: 20 DISCHARGE RECOMMENDATIONS [...] living (ADL) TREATMENT INTERVENTIONS Evaluation, Therapeutic Activity (33328) Timed Code Treatment (minutes): 8 Skilled Treatment Time (minutes): 23 TRAINING & EDUCATION PROVIDED Activity Adaptation/Compensatory Strategies, Adaptive Equipment/DME, Assistive Device Use, Bed Mobility, Benefits of In-Hospital Mobility, Discharge Planning, Energy Conservation, Expected FunctionalLevel, Functional Mobility Involving ADLs, Positioning, Precautions/Restrictions, Role of Occupational Therapy, Standing Balance to Improve Gray with ADLs/Self-Care, Transfer - Sit to Stand, [...] 04/09/2025 SERVICE TIME: 1342 to 1350 ROOM: [place] [address] PT 6 Clicks Score: 22 DISCHARGE RECOMMENDATIONS [...] Unsteadiness on feet TREATMENT INTERVENTIONS Therapeutic Exercise (08598) Timed Code Treatment (minutes): 8 Skilled Treatment [...] CBC, Coags, BMP, Mg, Phos Recent Labs 04/08/25194204/08/25 0641 04/07/25 0714 WBC 19.76* 17.37* 19.84* [...] 22 Gauge 2 days Peripheral 04/07/25 1226 [facility] Midline Right Arm #4 English 1 day Drain Duration GI/ Feeding 04/07/25 [facility] Gastric Right Naris 2 days SURGERY/PROCEDURE: Procedure(s) [...] MD General Surgery Resident Debbie service (pager [phone]) Hernia Teams: Debbie (Cresencio Desouza Tastaldi): [phone] [place] (Renny Hickey, Yamilet): [phone] After 6PM and on the weekends: [phone] The following problems are present on admission [...] Extended Emergency Contact Information Primary Emergency Contact: sally gonzalez Relation: Daughter Admission Status: Inpatient Insurance Provider: [...] 08, 2025 TIME: 3:28 PM * Rigoberto Teran, PT - 04/08/2025 3:15 PM EST Physical Therapy Evaluation Summary SERVICE DATE: 04/08/2025 SERVICE TIME: 1356 to 1420 ROOM: H071-05 PT 6 Clicks Score: 22 DISCHARGE RECOMMENDATIONS [...] on feet TREATMENT INTERVENTIONS Evaluation, Gait Training (04362) Timed Code Treatment (minutes): 9 Skilled Treatment [...] Modalities, Edema Management, Pain Management SIGNATURE: Rigoberto Teran PT PATIENT NAME: Mary Vick DATE: April [...] 22 Gauge 1 day Peripheral 04/07/25 1226 [facility] Midline Right Arm #4 English <1 day Drain Duration GI/ Feeding 04/07/25 [facility] Gastric Right Naris 1 day SURGERY/PROCEDURE: Procedure(s) [...] MD General Surgery Resident Debbie service (pager [phone]) Hernia Teams: Debbie (Cresencio Desouza Tastaldi): [phone] [place] (Renny Hickey Petro): [phone] After 6PM and on the weekends: [phone] The following problems are present on admission [...] MD General Surgery Resident Debbie service (pager [phone]) Hernia Teams: Debbie (Cresencio Desouza Tastaldi): [phone] [place] (Renny Hickey Petro): [phone] After 6PM and on the weekends: [phone] The following problems are present on admission [...] MD General Surgery Resident Debbie service (pager [phone]) Hernia Teams: Debbie (Cresencio Desouza Tastaldi): [phone] [place] (Renny Hickey Petro): [phone] After 6PM and on the weekends: [phone] The following problems are present on admission [...] placement: Sterile Primary Proceduralist: Clare Atwood RN Work Over Rig Operator: Jazz Hull RN/ Reji Shrestha RN Pre-procedure [...] for hospitalized patients). Midline Catheter Placement: Brand: Encap Lot: [id number] Number of lumens: 1 Type of Midline: Power Injectable Midline Lumen size: 4 English Placement Technique: Lidocaine: Yes, Lidocaine 1% Volume [...] Given to patient Questions or problems: Page [phone] SIGNATURE: Jazz Hull RN PATIENT NAME: Mary Vick DATE: April 07, 2025 TIME: 12:23 PM PAGER: [phone] documented in this encounter Consult Notes * Marcus Nagy MD - 04/10/2025 12:44 PM ESTAssociated Order(s): CONSULT TO CARDIOLOGY Images from the original note were not included. [facility]INE CONSULT NOTE (Template ID [id number]) Mary Vick [id number] PRIMARY SERVICE: General Surgery CONSULTING SERVICE: Cardiovascular [...] day.^Disp: ^Rfl: ALBUTEROL INHALATION^Inhale as instructed.^Disp: ^Rfl: srbroipzzp-lmbzuvwc-hjcdpnuyhe (BREZTRI AEROSPHERE) 160-9-4.8 mcg/actuation HFA aerosol inhaler^Inhale [...] MOUTH & THROAT) q 2 H PRN jsxbyldkpt-whuxvauw-rqgjunbgjq 160-9-4.8 mcg/actuation HFA 2 puff (BREZTRI) 2 [...] place & person DATA Laboratory: Recent Labs 04/10/259 04/09/25 1800 04/09/25 0842 WBC 12.02* 14.56* 15.56* HB 9.8* 10.0* 10.2* HCT 31.9* 31.3* 32.0* PLT 322 302 272 Recent Labs 04/10/2544804/09/25 1800 04/09/25 0842 04/08/251942 NA 140 -- 143 141 K 3.6* [...] setting of post op afib with a JCPCI6EPSP score of 4, we would recommend anticoagulated with eliquis on discharge (5 mg BID) - If patient is unable to afford Elquis, would recommend setter her up with a coumadin clinic [place] - Given episodes of bradycardia and patient remains in NSR, would recommend discontinuing metoprolol on discharge - Discharge with a Ziopatch - She will need outpatient follow up with her wiring mechanic Dr. Miriam Saenz for further managementof atrial [...] Case to be discussed with staff SIGNATURE: Megan Arteaga MD PATIENT NAME: Mary Vick DATE: April 10, 2025 TIME: 12:45 PM [facility] STAFF PHYSICIAN NOTE OF PERSONAL INVOLVEMENT IN [...] LVEF by echocardiography. She has an elevated TCW8PH8-VGCh score. Nosymptoms from the atrial fibrillation and as such it is difficult to exclude previous clinically unrecognized episodes. Ideally needs to be anticoagulated. Consider discharging with an event monitor to get an idea about arrhythmia burden. Outpatient follow-up with her wiring mechanic Liudmila Pizarro Department of Cardiovascular Medicine [facility] and Vascular [facility] Desk [address] [place] [address] Office - [phone] extension [phone] Office Appointments: [phone] extension [phone] [1] Social History Tobacco Use Smoking status: Former Types: Cigarettes Passive exposure: Never Smokeless tobacco: Never Substance Use Topics Alcohol use: Never Drug use: Never * Angel Quick MD - 04/05/2025 12:51 PM ESTAssociated Order(s): CONSULT TO CARDIOLOGY HEART and VASCULAR [place] CARDIOVASCULAR MEDICINE CONSULT NOTE Mary Nixonon [id number] PRIMARY SERVICE: PACU REASON FOR CONSULT: AF [...] , FREET4 , FREET3 in the last 63653 hours. Coags: Recent Labs 03/26/25 0814 INR 1.0 APTT 28.2 NT-proBNP: No results for input(s): PBNP in the last 44764 hours. Troponins: No results for input(s): HSTNT in the last 52888 hours. Lipids: No results for input(s): CHOL , TG , HDL , LDL in the last 91147 hours. A1c: Imaging: EKG: Recent Results (from the past 8760 hours) ECG COMPLETE Collection Time: 04/05/25 12:39 PM Result Value Ventricular Rate 143 QRS Duration 86 QT Interval 326 QTC Calculation (Bazett) 503 Calculated R [place] 55 Calculated T [place] 116 Impression ATRIAL FIBRILLATION WITH RAPID VENTRICULAR [...] day.^Disp: ^Rfl: ALBUTEROL INHALATION^Inhale as instructed.^Disp: ^Rfl: abgvhnhtui-kmouqhjs-txknpgcrqs (BREZTRI AEROSPHERE) 160-9-4.8 mcg/actuation HFA aerosol inhaler^Inhale [...] Medicine Fellow, PGY-4 Heart Vascular & Thoracic [place] [facility] STAFF PHYSICIAN NOTE OF PERSONAL INVOLVEMENT IN [...] by the Fellow. I personally performed a exbq-ie-swja assessment of the patient and participated in [...] Note: PATIENT NAME: Mary Vick Patient Location: [place] [address]/H071-05 Room: [place] [address] The patient was observed having the following [...] LIP 1239: 50 mcg fentanyl given by [employer] LOGISTICS TEAM LEAD for abdominal pain 12/30 per pt 1240: EKG done and reviewed by GLO at bedside, shows atrial fibrillation with rapid ventricular rate 1242: 2.5 mg metoprolol given by LIP 1245: 2.5 mg metoprolol given by LIP 1246: This RN assumed care at 1246 [...] included. GENERAL SURGERY BRIEF OPERATIVE NOTE Mary Adorno Nicanor [id number] LOG ID: [id number] Surgery/Procedure Date: 04/05/2025 Incision/Procedure Start Time: 8:35 AM Incision Close/Procedure End Time: 12:06 PM Surgeon(s)/Proceduralist(s) and Work Over Rig Operator(s): Surgeons and Role: * Joo Bales - Primary * Dave Orourke MD - Resident - Assisting * Jae Melgar MD - Resident - Assisting Procedure(s): Procedure(s) and Anesthesia Type: * LAPAROSCOPIC RPR PARAESOPHAGEAL HERNIA W/O FUNDOPLASTY W/ MESH - General Anesthesia: General Findings: Mild BURT, Large paraesophageal hernia (stage IV). [place] Bio-A mesh used. Anterior gastropexy done. Intraoperative [...] MD General Surgery Resident Debbie service (pager [phone]) Hernia Teams: Debbie (Cresencio Desouza Tastaldi): [phone] [address] (Renny Hickey Petro): [phone] After 6PM and on the weekends: [phone] PATIENT NAME: Mary Vick DATE: April 05, 2025 TIME: 12:06 PM PAGER/CONTACT #: [phone] * Operative Report - Joo Bales - 04/05/2025 7:37 AM EST OPERATIVE/PROCEDURE REPORT LOG ID: [id number] Surgery/Procedure Date: 04/05/2025 Incision/Procedure Start Time: 8:35 AM Incision Close/Procedure End Time: 12:00 PM Surgeon(s)/Proceduralist(s) and Work Over Rig Operator(s): Surgeons and Role: * Joo Bales - [...] detach the hernia sac from the right tima toward the V of the crura. Once [...] and was secured with a 10mm clip facs teacher. With the isaias drain to aid with [...] Complications: None ERAS procotol: Yes SIGNATURE: Joo Bales PATIENT NAME: Mary Vick DATE: April 05, 2025 TIME: 12:15 PM PAGER/CONTACT #: documented in this encounter Miscellaneous Notes * Plan of Care - Fiorella Longoria [facility] - 04/10/2025 7:24 PM EST DISCHARGE MEDICATION [...] time from discharge medication list. Fiorella Longoria [facility] Pager: [phone] 04/10/2025 7:25 PM Medication List START taking [...] 30 mg tablet Commonly known as: ARACELIS ESPINOSA AEROSPHERE 160-9-4.8 mcg/actuation HFA aerosol inhaler Generic drug: lepzwoqwrq-txegsciv-wosufleuik FARXIGA 10 mg tablet Generic drug: dapagliflozin [...] Your Medications These medications were sent to [facility] [place] [address] - [address] - [phone] [place] [address] amoxicillin-clavulanate potassium 875-125 mg per tablet metoclopramide [...] Any questions, please reach out the medication recruitment coordinator. Thank you. (Prices may vary at different pharmacy locations, this is the cost at [facility] on April 10, 2025 ). * Patient [...] 2:34 PM PAGER: * Nutrition - Sakina Jimenez RD - 04/07/2025 1:44 PM EST NUTRITION THERAPY INITIAL ASSESSMENT SERVICE DATE: 04/07/2025 SERVICE TIME: Start Time: 1344 Nutrition Assessment: Recommended Malnutrition Diagnosis: Mild Protein-Calorie [...] Per Cardiovascular Medicine note on 04/05 by Khot, Angel N, MD: 69 year old female with PMH [...] Weight Type: Current weight Estimated kilocalorie needs: 1624-4483 Calorie Calculation Method: 22-25 kcals/kg Estimated protein [...] midline PATIENT NAME: Mary Vick PATIENT LOCATION: [place] [address] READINESS TO LEARN COGNITIVE ABILITY: Alert and [...] Plan of Treatment DateTypeDepartmentCare Team (Latest Contact Info)Pgohhcrjovg24/03/2025 11:30 AM ESTOffice Visit General Surgery [address] [address] Sarai Ramos APRN.TOW MOTOR DRIVER [address] [address] Post opNameTypePriorityAssociated DiagnosesDate/TimeECG COMPLETEECGSTAT 04/05/2025 12:39 PM ESTECG YRISXIHQJOE12/14/2025 1:53 PM ESTNameTypePriority Associated DiagnosesOrder ScheduleECG COMPLETEECGRoutine Chronic congestive heart failure, unspecified heart failure type (HCC) 1 Occurrences starting 04/05/2025 until 04/05/2026documented as of this encounter Procedures Procedure NamePriorityDate/TimeAssociated DiagnosisCommentsGLUCOSE, BLOOD (POC) Eeccuxp8904/10/2025 12:09 PM EST MAGNESIUM QSCAqtphzz86/19/2025 4:49 AM EST PHOSPHORUS JWAVZFUTJObogzvb73/19/2025 4:49 AM EST CBC + LHGIPdwmoow91/19/2025 4:49 AM EST C-REACTIVE PROTEIN (CRP)Lqcctnq1804/10/2025 4:49 AM EST BASIC METABOLIC NQZJAZhpxray85/19/2025 4:49 AM EST GLUCOSE, BLOOD (POC)Hezpnkn4204/10/2025 4:48 AM EST GLUCOSE, BLOOD (POC)Ldaplgr1304/09/2025 11:24 PM EST MAGNESIUM DLWTurkmtp15/18/2025 6:00 PM EST PHOSPHORUS UXSZDWATCAiftogp37/18/2025 6:00 PM EST CBC + TGOMDagsnsm56/18/2025 6:00 PM EST C-REACTIVE PROTEIN (CRP)Rsbvfjz0204/09/2025 6:00 PM EST GLUCOSE, BLOOD (POC)Piendvi5604/09/2025 5:06 PM EST GLUCOSE, BLOOD (POC)Liajchk3504/09/2025 11:46 AM EST MAGNESIUM RZDNIYE22/18/2025 8:42 AM EST PHOSPHORUS SWWYROYFWGVHF23/18/2025 8:42 AM EST COMPLETE BLOOD KYODTIWKI22/18/2025 8:42 AM EST BASIC METABOLIC OWITKMLRW63/18/2025 8:42 AM EST GLUCOSE, BLOOD (POC)Aswvdsz8104/09/2025 5:50 AM EST GLUCOSE, BLOOD (POC)Basuseu3604/08/2025 11:22 PM EST MAGNESIUM JUMXzlecdt01/17/2025 7:43 PM EST PHOSPHORUS KRPYZUVKVFsluceg70/17/2025 7:43 PM EST CBC + VGPAPwvaojr21/17/2025 7:43 PM EST C-REACTIVE PROTEIN (CRP)Yodidhn8404/08/2025 7:43 PM EST BASIC METABOLIC FCWEPEgbwi89/17/2025 7:43 PM EST GLUCOSE, BLOOD (POC)Nfnoaei4104/08/2025 6:32 PM EST XR ABDOMEN 1V FDZAEJLJKT48/17/2025 1:10 PM EST GLUCOSE, BLOOD (POC)Jtvcwjm6504/08/2025 11:58 AM EST BSRLVzdgrsu34/17/2025 11:00 AM EST LVEF TRANSTHORACIC AKDHAlviedy70/17/2025 11:00 AM EST MAGNESIUM JJYTrxkcaq07/17/2025 6:41 AM EST PHOSPHORUS UBSRCBVOUCyvorab80/ 6:41 AM EST COMPREHENSIVE METABOLIC YEWENYbmjbhv28/17/2025 6:41 AM EST CBC + YTKNJaaezxs42/17/2025 6:41 AM EST C-REACTIVE PROTEIN (CRP)Ipvuqtm7504/08/2025 6:41 AM EST GLUCOSE, BLOOD (POC)Vstjkly9504/08/2025 5:44 AM EST GLUCOSE, BLOOD (POC)Odssllp5404/07/2025 11:17 PM EST GLUCOSE, BLOOD (POC)Ujbffxx5404/07/2025 4:48 PM EST IR VASCULAR ACCESS TEAM MIDLINE INSERTION ZGXXNQobpaea82/16/2025 12:23 PM EST GLUCOSE, BLOOD (POC)Oeivsla2104/07/2025 11:[address] ABD/PEL W TAOLINQUK61/16/2025 11:[address] CHEST W TDZMYXKEC33/16/2025 11:22 AM EST XR ABDOMEN 1V KEYTQSPRGX60/16/2025 9:41 AM EST XR ABDOMEN 1V BQKUXYOXLCL37/16/2025 9:30 AM EST XR CHEST 1V FRONTAL NADVHBWZ58/16/2025 8:20 AM EST MAGNESIUM ROLBitfwjf60/16/2025 7:14 AM EST HIGH SENSITIVITY TROPONIN AGjprpbp18/16/2025 7:14 AM EST PHOSPHORUS VWVCGINCGQeslnxo53/16/2025 7:14 AM EST COMPREHENSIVE METABOLIC TWLKTIuwceeu91/16/2025 7:14 AM EST CBC + IVYXPzhajuk02/16/2025 7:14 AM EST C-REACTIVE PROTEIN (CRP)Ybyczcm2704/07/2025 7:14 AM EST GLUCOSE, BLOOD (POC)Hzweswa1204/07/2025 5:23 AM EST GLUCOSE, BLOOD (POC)Pqzqjsd5604/06/2025 11:24 PM EST GLUCOSE, BLOOD (POC)Ungdanb7004/06/2025 5:31 PM EST GLUCOSE, BLOOD (POC)Bdrqzan1704/06/2025 1:20 PM EST XR UPPER GI SINGLE AVNSIWYBXyjuhdz01/15/2025 11:20 AM EST MAGNESIUM DVJMelcssm26/15/2025 7:14 AM EST HIGH SENSITIVITY TROPONIN GPsiksys81/15/2025 7:14 AM EST HIGH SENSITIVITY TROPONIN PEmshcxn06/15/2025 7:14 AM EST PHOSPHORUS OXCTQAKZIEfqqudf17/15/2025 7:14 AM EST COMPREHENSIVE METABOLIC JLTFNKkwqrgn49/15/2025 7:14 AM EST CBC + JTXWEiejrgm53/15/2025 7:14 AM EST C-REACTIVE PROTEIN (CRP)Edkitbb1004/06/2025 7:14 AM EST MAGNESIUM QDKOJTS05/14/2025 6:15 PM EST PHOSPHORUS BMPRWZTQBZNHB07/14/2025 6:15 PM EST COMPLETE BLOOD KHPZYSUQY76/14/2025 6:15 PM EST BASIC METABOLIC LRLWHPFNE83/14/2025 6:15 PM EST ECG BCSDLDLJ39/14/2025 1:53 PM ESTXR CHEST 1V FRONTAL ODMHCWIZ16/14/2025 12:56 PM EST ECG WTDARZTZPHDL75/14/2025 12:39 PM ESTGASA + ALL + FHIasetdm21/14/2025 12:36 PM EST GASA + ALL + HVCWMW6504/05/2025 10:07 AM EST LAPS RPR PARAESPHGL HRNA INCL FUNDPLSTY W/MESH04/05/2025 7:37 AM EST Preoperative examination Hiatal hernia CONFIRM BLOOD BHRNYQCP53/14/2025 7:05 AM EST documented in this encounter Results * (ABNORMAL) GLUCOSE, BLOOD (POC) (04/10/2025 12:09 PM EST)ComponentValueRef RangeTest MethodAnalysis TimePerformed AtPathologist SignatureGlucose, Point of Pkds038(A)74 - 99 mg/dLSelect [facility]Comment: Location:[facility], [address] [place] [address] The Accu-Chek Inform II glucose meter has [...] StatusLuciano TastaldiPOC TESTINGFinal ResultPerforming OrganizationAddressCity/State/ZIP CodePhone Number [facility] POINT OF CARE [address] [place], [place] * (ABNORMAL) PHOSPHORUS INORGANIC (04/10/2025 4:49 AM EST)ComponentValueRef RangeTest MethodAnalysis TimePerformed AtPathologist SignaturePhosphorus1.9(L) 2.7 - 4.8 mg/dL04/10/2025 7:19 AM [facility] LABSpecimen (Source)Anatomical Location / LateralityCollection Method / VolumeCollection TimeReceived TimeBloodBLOOD SPECIMEN / UnknownVenipuncture / Tmzfwnc0204/10/2025 4:49 AM EST04/10/2025 6:04 AM EST Narrative Authorizing ProviderResult TypeResult StatusLuciano TastaldiLABORATORYFinal ResultPerforming OrganizationAddressCity/State/ZIP CodePhone Number [facility] [address] [place] [address], * MAGNESIUM (04/10/2025 4:49 AM EST)ComponentValueRef RangeTest MethodAnalysis TimePerformed AtPathologist SignatureMagnesium2.11.7 - 2.3 mg/dL04/10/2025 7:19 AM [facility] LABSpecimen (Source)Anatomical Location / LateralityCollection Method / VolumeCollection TimeReceived TimeBloodBLOOD SPECIMEN / UnknownVenipuncture / Xbpimzt6404/10/2025 4:49 AM EST04/10/2025 6:04 AM EST Narrative Authorizing ProviderResult TypeResult StatusLuciano TastaldiLABORATORYFinal ResultPerforming OrganizationAddressCity/State/ZIP CodePhone Number [facility] [address] [place] [phone], * (ABNORMAL) COMPLETE BLOOD COUNT AND DIFFERENTIAL (04/10/2025 4:49 AM EST) ComponentValueRef RangeTest MethodAnalysis TimePerformed AtPathologist XgvtxqjgxUPU43.02(H)3.70 - 11.00 k/uL04/10/2025 6:43 AM [facility] LABRBC3.38(L)3.90 - 5.20 m/uL04/10/2025 6:43 AM [facility] LABHemoglobin9.8(L)11.5 - 15.5 g/dL04/10/2025 6:[facility] ZDPQgxkkbuaee09.9(L)36.0 - 46.0 %04/10/2025 6:43 AM [facility] BRBTFA17.480.0 - 100.0 fL04/10/2025 6:43 AM [facility] LABMCH 29.026.0 - 34.0 pg04/10/2025 6:43 AM [facility] WMXZNPA20.730.5 - 36.0 g/dL04/10/2025 6:43 AM [facility] MAIN LABRDW-CV17.4(H)11.5 - 15.0 %04/10/2025 6:43 AM [facility] LABPlatelet Ravay291945 - 400 k/uL04/10/2025 6:43 AM [facility] LTTNOU49.69.0 - 12.7 fL 04/10/2025 6:43 AM [facility] LABNeutrophils %76.2%04/10/2025 6:43 AM [facility] LABAbs Neut9.16(H)1.45 - 7.50 k/uL04/10/2025 6:43 AM [facility] LABLymphocytes %8.5%04/10/2025 6:43 AM [facility] LABAbs Lymph1.021.00 - 4.00 k/uL04/10/2025 6:43 AM [facility] LABMonocytes %7.8%04/10/2025 6:43 AM [facility] LABAbs Mono0.94(H)<0.87 k/uL04/10/2025 6:43 AM [facility] LABEosinophils %4.2%04/10/2025 6:43 AM [facility] MAIN LABAbs Eosin 0.50(H)<0.46 k/uL04/10/2025 6:43 AM [facility] LABBasophils %0.7 %04/10/2025 6:43 AM [facility] MAIN LABAbs Baso0.09<0.11 k/uL 04/10/2025 6:43 AM [facility] MAIN LABImmature Granulocytes %2.6% 04/10/2025 6:43 AM [facility] LABAbs Immature Gran0.31(H)<0.10 k/uL04/10/2025 6:43 AM [facility] LABNRBC0.0/100 WBC04/10/2025 6:43 AM [facility] LABAbsolute nRBC<0.01<0.01 k/uL04/10/2025 6:43 AM [facility] LABDiff MziaDhnc91/19/2025 6:43 AM EST [facility] LABSpecimen (Source)Anatomical Location / Laterality Collection Method / VolumeCollection TimeReceived TimeBloodBLOOD SPECIMEN / UnknownVenipuncture / Flxgksm8704/10/2025 4:49 AM EST04/10/2025 6:04 AM EST Narrative Authorizing ProviderResult TypeResult StatusLuciano TastaldiLABORATORYFinal ResultPerforming OrganizationAddressCity/State/ZIP CodePhone Number [facility] [address] [place] [address], * (ABNORMAL) C-REACTIVE PROTEIN (04/10/2025 4:49 AM EST)ComponentValueRef Range Test MethodAnalysis TimePerformed AtPathologist LloabecouNOT23.1(H)<0.9 mg/dL 04/10/2025 7:19 AM [facility] LABSpecimen (Source)Anatomical Location / LateralityCollection Method / VolumeCollection TimeReceived Time BloodBLOOD SPECIMEN / UnknownVenipuncture / Owpryup8304/10/2025 4:49 AM EST 04/10/2025 6:04 AM EST Narrative Authorizing ProviderResult TypeResult StatusLuciano TastaldiLABORATORYFinal ResultPerforming OrganizationAddressty/State/ZIP CodePhone Number [facility] [address] [place] [phone], * (ABNORMAL) BASIC METABOLIC PANEL (04/10/2025 4:49 AM EST)ComponentValueRef RangeTest MethodAnalysis TimePerformed AtPathologist SojjizmswRheqjkn987(H)74 - 99 mg/dL04/10/2025 7:19 AM [facility] LABComment: The [place] [employer] (ADA) provides guidance for cutoff [...] Standards of Medical Care in Diabetes 2016, [place] [employer]. Diabetes Care. 2016.39(Suppl 1). BUN77 - 21 mg/dL04/10/2025 7:19 AM [facility] LABCreatinine0.74 0.58 - 0.96 mg/dL04/10/2025 7:19 AM [facility] ZFDIocjqr013108 - 144 mmol/L106/10/2024 7:19 AM [facility] LABPotassium3.6(L)3.7 - 5.1 mmol/L106/10/2024 7:19 AM [facility] NMIEhftpahh39760 - 107 mmol/L106/10/2024 7:19 AM [facility] QIVVG46391 - 30 mmol/L 04/10/2025 7:19 AM [facility] LABAnion Gap88 - 15 mmol/L106/10/2024 7:19 AM [facility] LABCalcium, Total7.7(L)8.5 - 10.2 mg/dL 04/10/2025 7:19 AM [facility] LABEstimated Glomerular Filtration Rate87>=60 mL/min/1.73m 04/10/2025 7:19 AM [facility] LABComment:Estimated Glomerular Filtration Rate (eGFR) [...] VolumeCollection TimeReceived TimeBloodBLOOD SPECIMEN / UnknownVenipuncture / Rktekiq2304/10/2025 4:49 AM EST04/10/2025 6:04 AM EST Narrative Authorizing ProviderResult TypeResult StatusLuciano TastaldiLABORATORYFinal ResultPerforming OrganizationAddressCity/State/ZIP CodePhone Number [facility] LAB [facility] [place] [address], * (ABNORMAL) GLUCOSE, BLOOD (POC) (04/10/2025 4:48 AM EST)ComponentValueRef RangeTest MethodAnalysis TimePerformed AtPathologist SignatureGlucose, Point of Mtvj571(A)74 - 99 mg/dLSelect Medical Specialty Hospital - [facility]hillComment: Location:[address], [facility] The Accu-Chek Inform II glucose meter has [...] 4:48 AM EST Narrative Authorizing ProviderResult TypeResult StatusLuciano TastaldiPOC TESTINGFinal ResultPerforming OrganizationAddressCity/State/ZIP CodePhone Number [facility] POINT OF CARE [address] * (ABNORMAL) GLUCOSE, BLOOD (POC) (04/09/2025 11:24 PM EST)ComponentValueRef RangeTest MethodAnalysis TimePerformed AtPathologist SignatureGlucose, Point of Jqlu016(A)74 - 99 mg/dLSelect Medical Specialty Hospital - [facility]hillComment: Location:[address], [facility] The Accu-Chek Inform II glucose meter has [...] StatusLuciano TastaldiPOC TESTINGFinal ResultPerforming OrganizationAddressCity/State/ZIP CodePhone Number [facility] POINT [facility] CARE [address] * (ABNORMAL) PHOSPHORUS INORGANIC (04/09/2025 6:00 PM EST)ComponentValueRef RangeTest MethodAnalysis TimePerformed AtPathologist SignaturePhosphorus1.7(L) 2.7 - 4.8 mg/dL04/09/2025 9:47 PM [facility] LABSpecimen (Source)Anatomical Location / LateralityCollection Method / VolumeCollection TimeReceived TimeBloodBLOOD SPECIMEN / UnknownVenipuncture / Vxokabi6604/09/2025 6:00 PM EST04/09/2025 6:20 PM EST Narrative Authorizing ProviderResult TypeResult StatusLuciano TastaldiLABORATORYFinal ResultPerforming OrganizationAddressCity/State/ZIP CodePhone Number [facility] [place] [phone], * MAGNESIUM (04/09/2025 6:00 PM EST)ComponentValueRef RangeTest MethodAnalysis TimePerformed AtPathologist SignatureMagnesium2.11.7 - 2.3 mg/dL04/09/2025 9:47 PM [facility] LABSpecimen (Source)Anatomical Location / LateralityCollection Method / VolumeCollection TimeReceived TimeBloodBLOOD SPECIMEN / UnknownVenipuncture / Ncbahtk2204/09/2025 6:00 PM EST04/09/2025 6:20 PM EST Narrative Authorizing ProviderResult TypeResult StatusLuciano TastaldiLABORATORYFinal ResultPerforming OrganizationAddressCity/State/ZIP CodePhone Number [facility] [address] [place] [address], * (ABNORMAL) COMPLETE BLOOD COUNT AND DIFFERENTIAL (04/09/2025 6:00 PM EST) ComponentValueRef RangeTest MethodAnalysis TimePerformed AtPathologist LwovoxgbmTFC97.56(H)3.70 - 11.00 k/uL04/09/2025 6:53 PM [facility] LABRBC3.41(L)3.90 - 5.20 m/uL04/09/2025 6:53 PM [facility] EPULrtojvgwxz24.0(L)11.5 - 15.5 g/dL04/09/2025 6:53 PM [facility] ZDEYdrhtzgufk21.3(L)36.0 - 46.0 %04/09/2025 6:53 PM [facility] NXYAST30.880.0 - 100.0 fL04/09/2025 6:53 PM [facility] LAB MCH29.326.0 - 34.0 pg04/09/2025 6:53 PM [facility] QXYLCBS65.9 30.5 - 36.0 g/dL04/09/2025 6:53 PM [facility] LABRDW-CV17.3(H) 11.5 - 15.0 %04/09/2025 6:53 PM [facility] LABPlatelet Hbinj418 150 - 400 k/uL04/09/2025 6:53 PM [facility] YEJOIQ31.59.0 - 12.7 fL04/09/2025 6:53 PM [facility] LABNeutrophils %80.9%04/09/2025 6:53 PM [facility] LABAbs Neut11.78(H)1.45 - 7.50 k/uL 04/09/2025 6:53 PM [facility] LABLymphocytes %7.8%04/09/2025 6:53 PM [facility] LABAbs Lymph1.131.00 - 4.00 k/uL04/09/2025 6:53 PM [facility] LABMonocytes %6.1%04/09/2025 6:53 PM EST [facility] LABAbs Mono0.89(H)<0.87 k/uL04/09/2025 6:53 PM EST [facility] LABEosinophils %2.8%04/09/2025 6:53 PM [facility] LABAbs Eosin0.41<0.46 k/uL04/09/2025 6:53 PM [facility] LABBasophils %0.6%04/09/2025 6:53 PM [facility] LABAbs Baso 0.09<0.11 k/uL04/09/2025 6:53 PM [facility] LABImmature Granulocytes %1.8%04/09/2025 6:53 PM [facility] LABAbs Immature Gran0.26(H)<0.10 k/uL04/09/2025 6:53 PM [facility] LABNRBC0.0 /100 WBC04/09/2025 6:53 PM [facility] LABAbsolute nRBC<0.01<0.01 k/uL04/09/2025 6:53 PM [facility] LABDiff GsulRgcy93/18/2025 6:53 PM [facility] LABSpecimen (Source)Anatomical Location / LateralityCollection Method / VolumeCollection TimeReceived TimeBloodBLOOD SPECIMEN / UnknownVenipuncture / Fljlkcw6104/09/2025 6:00 PM EST04/09/2025 6:20 PM EST Narrative Authorizing ProviderResult TypeResult StatusLuciano TastaldiLABORATORYFinal ResultPerforming OrganizationAddressCity/State/ZIP CodePhone Number [facility] [address] * (ABNORMAL) C-REACTIVE PROTEIN (04/09/2025 6:00 PM EST)ComponentValueRef Range Test MethodAnalysis TimePerformed AtPathologist LdvhlbvbqJSY47.6(H)<0.9 mg/dL 04/09/2025 9:47 PM [facility] LABSpecimen (Source)Anatomical Location / LateralityCollection Method / VolumeCollection TimeReceived Time BloodBLOOD SPECIMEN / UnknownVenipuncture / Gvwssft5104/09/2025 6:00 PM EST 04/09/2025 6:20 PM EST Narrative Authorizing ProviderResult TypeResult StatusLuciano TastaldiLABORATORYFinal ResultPerforming OrganizationAddressCity/State/ZIP CodePhone Number [facility] [address] [place] [address], * GLUCOSE, BLOOD (POC) (04/09/2025 5:06 PM EST)ComponentValueRef RangeTest MethodAnalysis TimePerformed AtPathologist SignatureGlucose, Point of Agbq5328 - 99 mg/dLSelect Medical Specialty Hospital - [facility]hillComment: Location:[place] [address] The Accu-Chek Inform II glucose meter has [...] StatusLuciano TastaldiPOC TESTINGFinal ResultPerforming OrganizationAddressCity/State/ZIP CodePhone Number [facility] POINT OF CARE [address] * GLUCOSE, BLOOD (POC) (04/09/2025 11:46 AM EST)ComponentValueRef RangeTest MethodAnalysis TimePerformed AtPathologist SignatureGlucose, Point of Godv3301 - 99 mg/dLSelect Medical Specialty Hospital - [facility]hillComment: Location:[address], [facility] The Accu-Chek Inform II glucose meter has [...] StatusLuciano TastaldiPOC TESTINGFinal ResultPerforming OrganizationAddressCity/State/ZIP CodePhone Number [facility] POINT OF CARE [facility] [address] [place], [place] * (ABNORMAL) PHOSPHORUS INORGANIC (04/09/2025 8:42 AM EST)ComponentValueRef RangeTest MethodAnalysis TimePerformed AtPathologist SignaturePhosphorus1.8(L) 2.7 - 4.8 mg/dL04/09/2025 9:15 AM [facility] LABSpecimen (Source)Anatomical Location / LateralityCollection Method / VolumeCollection TimeReceived TimeBloodBLOOD SPECIMEN / UnknownVenipuncture / Dmpdazg1804/09/2025 8:42 AM EST04/09/2025 8:48 AM EST Narrative Authorizing ProviderResult TypeResult StatusLuciano TastaldiLABORATORYFinal ResultPerforming OrganizationAddressty/State/ZIP CodePhone Number [facility] [address] [place] [address], * MAGNESIUM (04/09/2025 8:42 AM EST)ComponentValueRef RangeTest MethodAnalysis TimePerformed AtPathologist SignatureMagnesium2.21.7 - 2.3 mg/dL04/09/2025 9:15 AM [facility] LABSpecimen (Source)Anatomical Location / LateralityCollection Method / VolumeCollection TimeReceived TimeBloodBLOOD SPECIMEN / UnknownVenipuncture / Wngwxyh8104/09/2025 8:42 AM EST04/09/2025 8:48 AM EST Narrative Authorizing ProviderResult TypeResult StatusLuciano TastaldiLABORATORYFinal ResultPerforming OrganizationAddressCity/State/ZIP CodePhone Number [facility] [address] [place] [phone], * (ABNORMAL) BASIC METABOLIC PANEL (04/09/2025 8:42 AM EST)ComponentValueRef RangeTest MethodAnalysis TimePerformed AtPathologist KmmigehowRevcbqo4873 - 99 mg/dL04/09/2025 9:15 AM [facility] MAIN LABComment: The [place] Diabetes [employer] (ADA) provides guidance for cutoff [...] Standards of Medical Care in Diabetes 2016, [place] [employer]. Diabetes Care. 2016.39(Suppl 1). BUN77 - 21 mg/dL04/09/2025 9:15 AM [facility] LABCreatinine0.69 0.58 - 0.96 mg/dL04/09/2025 9:15 AM [facility] XRVZbvain821200 - 144 mmol/L106/09/2024 9:15 AM [facility] LABPotassium4.03.7 - 5.1 mmol/L106/09/2024 9:15 AM [facility] DIHDycnxyrb63154 - 107 mmol/L 04/09/2025 9:15 AM [facility] DHEUH698(H)22 - 30 mmol/L106/09/2024 9:15 AM [facility] LABAnion Gap7(L)8 - 15 mmol/L106/09/2024 9:15 AM [facility] LABCalcium, Total7.8(L)8.5 - 10.2 mg/dL04/09/2025 9:15 AM [facility] LABEstimated Glomerular Filtration Rate93>=60 mL/min/1.73m 04/09/2025 9:15 AM [facility] MAIN LABComment:Estimated Glomerular Filtration Rate (eGFR) is calculated [...] VolumeCollection TimeReceived TimeBloodBLOOD SPECIMEN / UnknownVenipuncture / Ikufima2804/09/2025 8:42 AM EST04/09/2025 8:48 AM EST Narrative Authorizing ProviderResult TypeResult StatusLuciano TastaldiLABORATORYFinal ResultPerforming OrganizationAddressCity/State/ZIP CodePhone Number [facility] [address] * (ABNORMAL) COMPLETE BLOOD COUNT (04/09/2025 8:42 AM EST)ComponentValueRef RangeTest MethodAnalysis TimePerformed AtPathologist BgwacauryBSZ66.56(H)3.70 - 11.00 k/uL04/09/2025 8:55 AM [facility] LABRBC3.55(L)3.90 - 5.20 m/uL04/09/2025 8:55 AM [facility] YDHYkttphahcs09.2(L)11.5 - 15.5 g/dL04/09/2025 8:55 AM [facility] YOKYpennkjwyj53.0(L) 36.0 - 46.0 %04/09/2025 8:55 AM [facility] UEXHFP95.180.0 - 100.0 fL04/09/2025 8:55 AM [facility] YCJIUJ99.726.0 - 34.0 pg 04/09/2025 8:55 AM [facility] PCNPSDB37.930.5 - 36.0 g/dL 04/09/2025 8:55 AM [facility] LABRDW-CV17.2(H)11.5 - 15.0 % 04/09/2025 8:55 AM [facility] LABPlatelet Lumdm028715 - 400 k/uL 04/09/2025 8:55 AM [facility] JRPWYO28.09.0 - 12.7 fL04/09/2025 8:55 AM [facility] LABAbsolute nRBC<0.01<0.01 k/uL04/09/2025 8:55 AM [facility] LABSpecimen (Source)Anatomical Location / LateralityCollection Method / VolumeCollection TimeReceived TimeBloodBLOOD SPECIMEN / UnknownVenipuncture / Xftxorj7004/09/2025 8:42 AM EST04/09/2025 8:47 AM EST Narrative Authorizing ProviderResult TypeResult StatusLuciano TastaldiLABORATORYFinal ResultPerforming OrganizationAddressCity/State/ZIP CodePhone Number [facility] [address] [place] [address] * (ABNORMAL) GLUCOSE, BLOOD (POC) (04/09/2025 5:50 AM EST)ComponentValueRef RangeTest MethodAnalysis TimePerformed AtPathologist SignatureGlucose, Point of Wmjk299(A)74 - 99 mg/dLSelect Medical Specialty Hospital - [facility]hillComment: Location:[address], [facility] The Accu-Chek Inform II glucose meter has [...] StatusLuciano TastaldiPOC TESTINGFinal ResultPerforming OrganizationAddressCity/State/ZIP CodePhone Number [facility] POINT [facility] CARE [address] * (ABNORMAL) GLUCOSE, BLOOD (POC) (04/08/2025 11:22 PM EST)ComponentValueRef RangeTest MethodAnalysis TimePerformed AtPathologist SignatureGlucose, Point of Hseg653(A)74 - 99 mg/dLSelect Medical Specialty Hospital - [facility]hillComment: Location:[facility], [address] [place] [address], [facility] The Accu-Chek Inform II glucose meter has [...] PM EST Narrative Authorizing ProviderResult TypeResult StatusLuciano TastaldiVERMONT [facility] TESTINGFinal ResultPerforming OrganizationAddressCity/State/ZIP CodePhone Number [facility] POINT [facility] CARE [address] * (ABNORMAL) BASIC METABOLIC PANEL (04/08/2025 7:43 PM EST)ComponentValueRef RangeTest MethodAnalysis TimePerformed AtPathologist ThsuqvtcvMczbcyg3814 - 99 mg/dL04/08/2025 9:06 PM [facility] LABComment: The [place] [employer] (ADA) provides guidance for cutoff [...] Standards of Medical Care in Diabetes 2016, [place] [employer]. Diabetes Care. 2016.39(Suppl 1). BUN87 - 21 mg/dL04/08/2025 9:06 PM [facility] LABCreatinine0.61 0.58 - 0.96 mg/dL04/08/2025 9:06 PM [facility] UYXSvfjne786629 - 144 mmol/L106/08/2024 9:06 PM [facility] LABPotassium3.6(L)3.7 - 5.1 mmol/L106/08/2024 9:06 PM [facility] NXTGjlersil92910 - 107 mmol/L106/08/2024 9:06 PM [facility] RSPGC81184 - 30 mmol/L 04/08/2025 9:06 PM [facility] LABAnion Wcb337 - 15 mmol/L 04/08/2025 9:06 PM [facility] LABCalcium, Total8.0(L)8.5 - 10.2 mg/dL04/08/2025 9:06 PM [facility] LABEstimated Glomerular Filtration Rate96>=60 mL/min/1.73m 04/08/2025 9:06 PM [facility] LABComment:Estimated Glomerular Filtration Rate (eGFR) [...] VolumeCollection TimeReceived TimeBloodBLOOD SPECIMEN / UnknownVenipuncture / Urcdsvq1404/08/2025 7:43 PM EST04/08/2025 8:01 PM EST Narrative Authorizing ProviderResult TypeResult StatusLuciano TastaldiLABORATORYFinal ResultPerforming OrganizationAddressCity/State/ZIP CodePhone Number [facility] [address] * (ABNORMAL) C-REACTIVE PROTEIN (04/08/2025 7:43 PM EST)ComponentValueRef Range Test MethodAnalysis TimePerformed AtPathologist DkhbdmeyvMAQ22.8(H)<0.9 mg/dL 04/08/2025 9:06 PM [facility] LABSpecimen (Source)Anatomical Location / LateralityCollection Method / VolumeCollection TimeReceived Time BloodBLOOD SPECIMEN / UnknownVenipuncture / Meohkyb5504/08/2025 7:43 PM EST 04/08/2025 8:01 PM EST Narrative Authorizing ProviderResult TypeResult StatusLuciano TastaldiLABORATORYFinal ResultPerforming OrganizationAddressty/State/ZIP CodePhone Number [facility] [address] [place] [address], * PHOSPHORUS INORGANIC (04/08/2025 7:43 PM EST)ComponentValueRef RangeTest MethodAnalysis TimePerformed AtPathologist SignaturePhosphorus2.72.7 - 4.8 mg/dL04/08/2025 9:06 PM [facility] LABSpecimen (Source) Anatomical Location / LateralityCollection Method / VolumeCollection Time Received TimeBloodBLOOD SPECIMEN / UnknownVenipuncture / Sqtkrvm0804/08/2025 7:43 PM EST04/08/2025 8:01 PM EST Narrative Authorizing ProviderResult TypeResult StatusLuciano TastaldiLABORATORYFinal ResultPerforming OrganizationAddressty/State/ZIP CodePhone Number [facility] [address] [place] [address], * MAGNESIUM (04/08/2025 7:43 PM EST)ComponentValueRef RangeTest MethodAnalysis TimePerformed AtPathologist SignatureMagnesium2.31.7 - 2.3 mg/dL04/08/2025 9:06 PM [facility] LABSpecimen (Source)Anatomical Location / LateralityCollection Method / VolumeCollection TimeReceived TimeBloodBLOOD SPECIMEN / UnknownVenipuncture / Zkhzudz6604/08/2025 7:43 PM EST04/08/2025 8:01 PM EST Narrative Authorizing ProviderResult TypeResult StatusLuciano TastaldiLABORATORYFinal ResultPerforming OrganizationAddressty/State/ZIP CodePhone Number [facility] [address] [place] [address], * (ABNORMAL) COMPLETE BLOOD COUNT AND DIFFERENTIAL (04/08/2025 7:43 PM EST) ComponentValueRef RangeTest MethodAnalysis TimePerformed AtPathologist OzjwzotlgLKH85.76(H)3.70 - 11.00 k/uL04/08/2025 8:33 PM [facility] MAIN LABRBC3.67(L)3.90 - 5.20 m/uL04/08/2025 8:33 PM [facility] MAIN GJOEwwtncfudw80.7(L)11.5 - 15.5 g/dL04/08/2025 8:33 PM [facility] HIFCmplobyzxd98.9(L)36.0 - 46.0 %04/08/2025 8:33 PM [facility] MAIN LOIVBL30.480.0 - 100.0 fL04/08/2025 8:33 PM [facility] LAB MCH29.226.0 - 34.0 pg04/08/2025 8:33 PM [facility] FVQQSQO23.6 30.5 - 36.0 g/dL04/08/2025 8:33 PM [facility] LABRDW-CV17.2(H) 11.5 - 15.0 %04/08/2025 8:33 PM [facility] LABPlatelet Uheon021 150 - 400 k/uL04/08/2025 8:33 PM [facility] FKXUCB18.79.0 - 12.7 fL04/08/2025 8:33 PM [facility] LABNeutrophils %83.3%04/08/2025 8:33 PM [facility] LABAbs Neut16.46(H)1.45 - 7.50 k/uL 04/08/2025 8:33 PM [facility] LABLymphocytes %8.0%04/08/2025 8:33 PM [facility] LABAbs Lymph1.581.00 - 4.00 k/uL04/08/2025 8:33 PM [facility] LABMonocytes %5.2%04/08/2025 8:33 PM [facility] LABAbs Mono1.03(H)<0.87 k/uL04/08/2025 8:33 PM [facility] LABEosinophils %1.7%04/08/2025 8:33 PM [facility] LABAbs Eosin0.34<0.46 k/uL04/08/2025 8:33 PM [facility] LABBasophils %0.4%04/08/2025 8:33 PM [facility] LABAbs Baso 0.07<0.11 k/uL04/08/2025 8:33 PM [facility] LABImmature Granulocytes %1.4%04/08/2025 8:33 PM [facility] LABAbs Immature Gran0.28(H)<0.10 k/uL04/08/2025 8:33 PM [facility] LABNRBC0.0 /100 WBC04/08/2025 8:33 PM [facility] LABAbsolute nRBC<0.01<0.01 k/uL04/08/2025 8:33 PM [facility] LABDiff XunxOtna15/17/2025 8:33 PM [facility] LABSpecimen (Source)Anatomical Location / LateralityCollection Method / VolumeCollection TimeReceived TimeBloodBLOOD SPECIMEN / UnknownVenipuncture / Mzcumby2104/08/2025 7:43 PM EST04/08/2025 8:01 PM EST Narrative Authorizing ProviderResult TypeResult StatusLuciano TastaldiLABORATORYFinal ResultPerforming OrganizationAddressCity/State/ZIP CodePhone Number [facility] [address] [place] [address], * GLUCOSE, BLOOD (POC) (04/08/2025 6:32 PM EST)ComponentValueRef RangeTest MethodAnalysis TimePerformed AtPathologist SignatureGlucose, Point of Tbxg7776 - 99 mg/dLSelect [facility] [place]hillComment: Location:[facility] [place], [address] [place] [address], [facility] The Accu-Chek Inform II glucose meter has [...] StatusLuciano TastaldiPOC TESTINGFinal ResultPerforming OrganizationAddressCity/State/ZIP CodePhone Number [facility] POINT OF CARE [facility] [place] [address] [place], [place] * XR ABDOMEN 1V SUPINE (04/08/2025 [...] colon. Other: Residual contrast in the bladder. Leaf Stamper: PSCB ?? Transcribe Date/Time: Apr 08 2025 ??1:22P [...] image(s). RESULT: See impression. Procedure Note Provider, [facility] [place] - 04/08/2025 * * *Final Report* * [...] colon. Other: Residual contrast in the bladder. Leaf Stamper: REE Transcribe Date/Time: Apr 08 2025 1:22P Dictated by : JEANINE ROLON MD This examination was interpreted and the report reviewed and electronically signed by: MAYA GUILLERMO MD on Apr 08 2025 1:51PM EST Authorizing ProviderResult TypeResult StatusLuciano TastaldiRAD-PAMAFinal Result * GLUCOSE, BLOOD (POC) (04/08/2025 11:58 AM EST)ComponentValueRef RangeTest MethodAnalysis TimePerformed AtPathologist SignatureGlucose, Point of Duvv8156 - 99 mg/dLSelect [facility]ty [facility] [place]-[facility]hillComment: Location:[facility], [address] [place] [address] The Accu-Chek Inform II glucose meter has [...] StatusLuciano TastaldiPOC TESTINGFinal ResultPerforming OrganizationAddressCity/State/ZIP CodePhone Number [facility] POINT OF CARE [facility] [address] [place], [place] * LVEF TRANSTHORACIC ECHO (04/08/2025 11:00 AM EST)ComponentValueRef RangeTest MethodAnalysis TimePerformed AtPathologist SignatureLV Ejection Kqjwvnat34% [facility] INSTITUTEComment: (2D biplane) EF > 54 An LV Ejection Fraction of > 50% is normal Specimen (Source)Anatomical Location / LateralityCollection Method / Volume Collection TimeReceived Time04/08/2025 11:00 AM EST Narrative Authorizing ProviderResult TypeResult StatusLuciano TastaldiLVEF RESULTSFinal ResultPerforming OrganizationAddressCity/State/ZIP CodePhone Number [facility] [address] [place] [address] * ECHO (04/08/2025 11:00 AM EST)Specimen (Source)Anatomical Location / LateralityCollection Method / VolumeCollection TimeReceived Time04/08/2025 11:00 AM EST Impressions [facility] - 04/08/2025 12:36 PM EST CONCLUSIONS: - [...] * * * Narrative [facility] - 04/08/2025 12:36 PM EST Echocardiography Report: Transthoracic Echo [facility] Bedside Date of service: 04/08/2025 11:00:19 AM 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 Ordering physician: JOO BALES Exam indication: Sustained [...] CodePhone Number [facility] [address] [place] [address] * (ABNORMAL) C-REACTIVE PROTEIN (04/08/2025 6:41 AM EST)ComponentValueRef Range Test MethodAnalysis TimePerformed AtPathologist QiioyaybxQFL74.5(H)<0.9 mg/dL 04/08/2025 8:42 AM [facility] LABSpecimen (Source)Anatomical Location / LateralityCollection Method / VolumeCollection TimeReceived Time BloodBLOOD SPECIMEN / UnknownVenipuncture / Kiaesgv1804/08/2025 6:41 AM EST 04/08/2025 7:05 AM EST Narrative Authorizing ProviderResult TypeResult StatusLuciano TastaldiLABORATORYFinal ResultPerforming OrganizationAddressCity/State/ZIP CodePhone Number [facility] [address] [place] [id number], * (ABNORMAL) PHOSPHORUS INORGANIC (04/08/2025 6:41 AM EST)ComponentValueRef RangeTest MethodAnalysis TimePerformed AtPathologist SignaturePhosphorus1.3(L) 2.7 - 4.8 mg/dL04/08/2025 8:42 AM [facility] LABSpecimen (Source)Anatomical Location / LateralityCollection Method / VolumeCollection TimeReceived TimeBloodBLOOD SPECIMEN / UnknownVenipuncture / Vpzltap6904/08/2025 6:41 AM EST04/08/2025 7:05 AM EST Narrative Authorizing ProviderResult TypeResult StatusLuciano TastaldiLABORATORYFinal ResultPerforming OrganizationAddressCity/State/ZIP CodePhone Number [facility] [address] [place] [address], * MAGNESIUM (04/08/2025 6:41 AM EST)ComponentValueRef RangeTest MethodAnalysis TimePerformed AtPathologist SignatureMagnesium2.01.7 - 2.3 mg/dL04/08/2025 8:42 AM [facility] LABSpecimen (Source)Anatomical Location / LateralityCollection Method / VolumeCollection TimeReceived TimeBloodBLOOD SPECIMEN / UnknownVenipuncture / Kioiokz4204/08/2025 6:41 AM EST04/08/2025 7:05 AM EST Narrative Authorizing ProviderResult TypeResult StatusLuciano TastaldiLABORATORYFinal ResultPerforming OrganizationAddressCity/State/ZIP CodePhone Number [facility] [address] [place] [address], * (ABNORMAL) COMPLETE BLOOD COUNT AND DIFFERENTIAL (04/08/2025 6:41 AM EST) ComponentValueRef RangeTest MethodAnalysis TimePerformed AtPathologist JvhdzgddzKKG26.37(H)3.70 - 11.00 k/uL04/08/2025 8:15 AM [facility] LABRBC3.21(L)3.90 - 5.20 m/uL04/08/2025 8:15 AM [facility] LABHemoglobin9.4(L)11.5 - 15.5 g/dL04/08/2025 8:15 AM [facility] KBBNaeutjaezl91.5(L)36.0 - 46.0 %04/08/2025 8:15 AM [facility] MUNOFA77.980.0 - 100.0 fL04/08/2025 8:15 AM [facility] LABMCH 29.326.0 - 34.0 pg04/08/2025 8:15 AM [facility] XZVRNXS90.930.5 - 36.0 g/dL04/08/2025 8:15 AM [facility] LABRDW-CV17.3(H)11.5 - 15.0 %04/08/2025 8:15 AM [facility] LABPlatelet Jjcle744688 - 400 k/uL04/08/2025 8:15 AM [facility] TSYKNZ48.79.0 - 12.7 fL 04/08/2025 8:15 AM [facility] LABNeutrophils %87.8%04/08/2025 8:15 AM [facility] LABAbs Neut15.26(H)1.45 - 7.50 k/uL04/08/2025 8:15 AM [facility] MA[facility] LABLymphocytes %4.1%04/08/2025 8:15 AM [facility] LABAbs Lymph0.71(L)1.00 - 4.00 k/uL04/08/2025 8:15 AM [facility] MA[facility] LABMonocytes %6.0%04/08/2025 8:15 AM [facility] LABAbs Mono1.04(H)<0.87 k/uL04/08/2025 8:15 AM [facility] MA[facility] LABEosinophils %0.9%04/08/2025 8:15 AM [facility] MA[facility] LABAbs Eosin0.15<0.46 k/uL04/08/2025 8:15 AM [facility] MAIN LABBasophils % 0.2%04/08/2025 8:15 AM [facility] MA[facility] LABAbs Baso0.04<0.11 k/uL 04/08/2025 8:15 AM [facility] MA[facility] LABImmature Granulocytes %1.0% 04/08/2025 8:15 AM [facility] MA[facility] LABAbs Immature Gran0.17(H)<0.10 k/uL04/08/2025 8:15 AM [facility] MAIN LABNRBC0.0/100 WBC04/08/2025 8:15 AM [facility] MA[facility] LABAbsolute nRBC<0.01<0.01 k/uL04/08/2025 8:15 AM [facility] MAIN LABDiff CpykIgmk83/17/2025 8:15 AM EST [facility] LABSpecimen (Source)Anatomical Location / Laterality Collection Method / VolumeCollection TimeReceived TimeBloodBLOOD SPECIMEN / UnknownVenipuncture / Dzlmjsv8904/08/2025 6:41 AM EST04/08/2025 7:05 AM EST Narrative Authorizing ProviderResult TypeResult StatusLuciano TastaldiLABORATORYFinal ResultPerforming OrganizationAddressCity/State/ZIP CodePhone Number [facility] [address] * (ABNORMAL) COMPREHENSIVE METABOLIC PANEL (04/08/2025 6:41 AM EST)Component ValueRef RangeTest MethodAnalysis TimePerformed AtPathologist Signature Protein, Total4.8(L)6.3 - 8.0 g/dL04/08/2025 8:42 AM [facility] LABAlbumin2.7(L)3.9 - 4.9 g/dL04/08/2025 8:42 AM [facility] LAB Calcium, Total7.4(L)8.5 - 10.2 mg/dL04/08/2025 8:42 AM [facility] LABBilirubin, Total0.40.2 - 1.3 mg/dL04/08/2025 8:42 AM [facility] LABAlkaline Grjhgnrlikl8647 - 123 U/L106/08/2024 8:42 AM EST [facility] PGDXZP0458 - 35 U/L106/08/2024 8:42 AM [facility] IZQLZQ641 - 38 U/L106/08/2024 8:42 AM [facility] LAB Zhmvdkj35(L)74 - 99 mg/dL04/08/2025 8:42 AM [facility] Comment: The [place] [employer] (ADA) provides guidance for cutoff [...] Standards of Medical Care in Diabetes 2016, [place] [employer]. Diabetes Care. 2016.39(Suppl 1). BUN87 - 21 mg/dL04/08/2025 8:42 AM [facility] LABCreatinine0.55(L) 0.58 - 0.96 mg/dL04/08/2025 8:42 AM [facility] IZKNrjoac047956 - 144 mmol/L106/08/2024 8:42 AM [facility] LABPotassium3.5(L)3.7 - 5.1 mmol/L106/08/2024 8:42 AM [facility] WVFPfnmexbi58079 - 107 mmol/L106/08/2024 8:42 AM [facility] DCOYI67553 - 30 mmol/L 04/08/2025 8:42 AM [facility] LABAnion Dlf629 - 15 mmol/L 04/08/2025 8:42 AM [facility] LABEstimated Glomerular Filtration Rate98>=60 mL/min/1.73m 04/08/2025 8:42 AM [facility] LABComment:Estimated Glomerular Filtration Rate (eGFR) [...] VolumeCollection TimeReceived TimeBloodBLOOD SPECIMEN / UnknownVenipuncture / Wuhsblp4804/08/2025 6:41 AM EST04/08/2025 7:05 AM EST Narrative Authorizing ProviderResult TypeResult StatusAlessandro Borden MDLABORATORYFinal ResultPerforming OrganizationAddressCity/State/ZIP CodePhone Number [facility] [address] [place] [address], * GLUCOSE, BLOOD (POC) (04/08/2025 5:44 AM EST)ComponentValueRef RangeTest MethodAnalysis TimePerformed AtPathologist SignatureGlucose, Point of Oyqx2765 - 99 mg/dLSelect [facility] Hospital [facility] [place]-[facility]hillComment: Location:[address], [facility] The Accu-Chek Inform II glucose meter has [...] StatusLuciano TastaldiPOC TESTINGFinal ResultPerforming OrganizationAddressCity/State/ZIP CodePhone Number [facility] POINT OF CARE [address] * GLUCOSE, BLOOD (POC) (04/07/2025 11:17 PM EST)ComponentValueRef RangeTest MethodAnalysis TimePerformed AtPathologist SignatureGlucose, Point of Qauy2495 - 99 mg/dLSelect [facility] - [place]-[facility]hillComment: Location:[facility], [address] [place] [address], [facility] The Accu-Chek Inform II glucose meter has [...] StatusLuciano TastaldiPOC TESTINGFinal ResultPerforming OrganizationAddressCity/State/ZIP CodePhone Number [facility] POINT OF CARE [address] * (ABNORMAL) GLUCOSE, BLOOD (POC) (04/07/2025 4:48 PM EST)ComponentValueRef RangeTest MethodAnalysis TimePerformed AtPathologist SignatureGlucose, Point of Pqlz996(A)74 - 99 mg/dLSelect [facility] - [place]-[facility]hillComment: Location:[facility], [address] [place] [address], [facility] The Accu-Chek Inform II glucose meter has [...] StatusLuciano TastaldiPOC TESTINGFinal ResultPerforming OrganizationAddressCity/State/ZIP CodePhone Number [facility] POINT OF CARE [address] * IR VASCULAR ACCESS TEAM MIDLINE INSERTION RADIO (04/07/2025 12:23 PM EST) Anatomical RegionLateralityModalityOther Narrative 04/07/2025 12:23 PM EST Jazz Hull RN 04/07/2025 12:26 PM MIDLINE INSERTION PROCEDURE NOTE - PICC TEAM NURSES DATE OF PROCEDURE: 04/07/2025 TIME OF PROCEDURE: 1223 ORDERING PHYSICIAN: Dominique Ibarra Indications for line placement: Intravenous access Condition of line placement: Sterile Primary Proceduralist: Clare Atwood RN Work Over Rig Operator: Jazz Hull RN/ Reji Shrestha RN Pre-procedure [...] Midline Catheter Placement: Brand: ??BARD ?Lot: ?? [id number] Number of lumens: 1 Type of Midline: Power Injectable Midline Lumen size: 4 English Placement Technique: Lidocaine: Yes, ??Lidocaine 1% ??Volume [...] Given to patient Questions or problems: Page [phone] SIGNATURE: Jazz Hull RN PATIENT NAME: Mary Vick DATE: April 07, 2025 TIME: 12:23 PM PAGER: [phone] Authorizing ProviderResult TypeResult StatusLuciano TastaldiINTERVENTIONAL RADIOLOGYFinal Result * (ABNORMAL) GLUCOSE, BLOOD (POC) (04/07/2025 11:43 AM EST)ComponentValueRef RangeTest MethodAnalysis TimePerformed AtPathologist SignatureGlucose, Point of Jpnn161(A)74 - 99 mg/dLSelect Medical [facility]ty Hospital - [place]-[facility]hillComment: Location:[facility], [address] [place] [address] The Accu-Chek Inform II glucose meter has [...] StatusLuciano TastaldiPOC TESTINGFinal ResultPerforming OrganizationAddressCity/State/ZIP CodePhone Number [facility] POINT OF CARE [facility] [address] [place], [place] * CT ABD/PEL W IVCON (04/07/2025 11:22 AM EST)Anatomical RegionLaterality ModalityAbdomenComputed TomographySpecimen (Source)Anatomical Location / LateralityCollection Method / VolumeCollection TimeReceived Time04/07/2025 11:22 AM EST Impressions 04/07/2025 12:49 PM EST IMPRESSION: EXPECTED POSTOPERATIVE CHANGES FROM HIATAL HERNIA REPAIR. ??NO LOCULATED INTRA-ABDOMINAL FLUID COLLECTION. MILD ILEUS, NOTING THAT CONTRAST REACHES COLON FROM PRIOR UPPER GI STUDY. INTERVAL DECOMPRESSION OF STOMACH STATUS POST NG/OG TUBE PLACEMENT. Leaf Stamper: PSCB ?? Transcribe Date/Time: Apr 07 2025 11:43A Dictated by : NATTY CHAVEZ MD This examination was interpreted and the report reviewed and electronically signed by: ALIA CHANDLER MD on Apr 07 2025 12:47PM ??EST Narrative 04/07/2025 12:49 PM EST * * *Final Report* * * DATE OF EXAM: Apr 07 2025 11:22AM ?? [facility] ?? 0530 ??- ??CT [...] images: No additional findings. Procedure Note Provider, [facility] [place] - 04/07/2025 * * *Final Report* * * DATE OF EXAM: Apr 07 2025 11:22AM [facility] 0530 - CT ABD/PEL [...] OF STOMACH STATUS POST NG/OG TUBE PLACEMENT. Leaf Stamper: REE Transcribe Date/Time: Apr 07 2025 11:43A [...] greater than right small dependent pleural effusions. Leaf Stamper: REE ?? Transcribe Date/Time: Apr 07 2025 ??7:30P Dictated by : JANIA GODOY MD This examination was interpreted and the report reviewed and electronically signed by: JANIA GODOY MD on Apr 07 2025 ??7:42PM ??EST Narrative 04/07/2025 7:44 PM EST * * *Final Report* * * DATE OF EXAM: Apr 07 2025 11:22AM ?? [facility] ?? 0539 ??- ??CT [...] images: No additional findings. Procedure Note Provider, [facility] [place] - 04/07/2025 * * *Final Report* * * DATE OF EXAM: Apr 07 2025 11:22AM [facility] 0539 - CT CHEST [...] greater than right small dependent pleural effusions. Leaf Stamper: PSCB Transcribe Date/Time: Apr 07 2025 7:30P Dictated [...] previously queried. Hypoventilatory changes in lung bases. Leaf Stamper: JIHANB ?? Transcribe Date/Time: Apr 07 2025 11:06A [...] hours RESULT: See impression. Procedure Note Provider, [facility] [place] - 04/07/2025 * * *Final Report* * [...] as previouslyqueried. Hypoventilatory changes in lung bases. Leaf Stamper: REE Transcribe Date/Time: Apr 07 2025 11:06A Dictated [...] 04/07/2025 11:05 AM ?? via verbal communication. Leaf Stamper: REE ?? Transcribe Date/Time: Apr 07 2025 [...] 04/06/2025 RESULT: See impression. Procedure Note Provider, [facility] [place] - 04/07/2025 * * *Final Report* * [...] on 04/07/2025 11:05 AM via verbal communication. Leaf Stamper: REE Transcribe Date/Time: Apr 07 2025 11:00A [...] No pneumothorax. Cardiomediastinal silhouette: ??Stable cardiac silhouette. Leaf Stamper: REE ?? Transcribe Date/Time: Apr 07 2025 [...] earlier RESULTS: See Impression. Procedure Note Provider, [facility] - 04/07/2025 * * *Final Report* * [...] No pneumothorax. Cardiomediastinal silhouette: Stable cardiac silhouette. Leaf Stamper: REE Transcribe Date/Time: Apr 07 2025 10:18A Dictated by : JANIA GODOY MD This examination was interpreted and the report reviewed and electronically signed by: JANIA GODOY MD on Apr 07 2025 10:19AM EST Authorizing ProviderResult TypeResult StatusLuciano TastaldiRAD-PAMAFinal Result * (ABNORMAL) C-REACTIVE PROTEIN (04/07/2025 7:14 AM EST)ComponentValueRef Range Test MethodAnalysis TimePerformed AtPathologist FwmendwecQJP72.7(H)<0.9 mg/dL 04/07/2025 9:36 AM EST[facility] LABSpecimen (Source)Anatomical Location / LateralityCollection Method / VolumeCollection TimeReceived Time BloodBLOOD SPECIMEN / UnknownVenipuncture / Jswyigk9304/07/2025 7:14 AM EST 04/07/2025 8:47 AM EST Narrative Authorizing ProviderResult TypeResult StatusLuciano TastaldiLABORATORYFinal ResultPerforming OrganizationAddressCity/State/ZIP CodePhone Number [facility] [address] [place] [address], * (ABNORMAL) PHOSPHORUS INORGANIC (04/07/2025 7:14 AM EST)ComponentValueRef RangeTest MethodAnalysis TimePerformed AtPathologist SignaturePhosphorus2.2(L) 2.7 - 4.8 mg/dL04/07/2025 9:36 AM [facility] LABSpecimen (Source)Anatomical Location / LateralityCollection Method / VolumeCollection TimeReceived TimeBloodBLOOD SPECIMEN / UnknownVenipuncture / Waalind6104/07/2025 7:14 AM EST04/07/2025 8:47 AM EST Narrative Authorizing ProviderResult TypeResult StatusLuciano TastaldiLABORATORYFinal ResultPerforming OrganizationAddMeadows Psychiatric Centerty/State/ZIP CodePhone Number [facility] [address] [place] [address], * (ABNORMAL) MAGNESIUM (04/07/2025 7:14 AM EST)ComponentValueRef RangeTest MethodAnalysis TimePerformed AtPathologist SignatureMagnesium2.6(H)1.7 - 2.3 mg/dL04/07/2025 9:36 AM [facility] LABSpecimen (Source) Anatomical Location / LateralityCollection Method / VolumeCollection Time Received TimeBloodBLOOD SPECIMEN / UnknownVenipuncture / Naejgpb3104/07/2025 7:14 AM EST04/07/2025 8:47 AM EST Narrative Authorizing ProviderResult TypeResult StatusLuciano TastaldiLABORATORYFinal ResultPerforming OrganizationAddressty/State/ZIP CodePhone Number [facility] [address] [place], [place] [id number], * (ABNORMAL) COMPLETE BLOOD COUNT AND DIFFERENTIAL (04/07/2025 7:14 AM EST) ComponentValueRef RangeTest MethodAnalysis TimePerformed AtPathologist EccjcopkiWNP04.84(H)3.70 - 11.00 k/uL04/07/2025 9:01 AM [facility] MAIN LABRBC3.84(L)3.90 - 5.20 m/uL04/07/2025 9:01 AM [facility] MAIN KBLQrsqsvzfez67.2(L)11.5 - 15.5 g/dL04/07/2025 9:01 AM [facility] BCURieqpoaccz86.2(L)36.0 - 46.0 %04/07/2025 9:01 AM [facility] XEJCPZ90.780.0 - 100.0 fL04/07/2025 9:01 AM [facility] LAB MCH29.226.0 - 34.0 pg04/07/2025 9:01 AM [facility] KHBBBXP47.8 30.5 - 36.0 g/dL04/07/2025 9:01 AM [facility] LABRDW-CV17.4(H) 11.5 - 15.0 %04/07/2025 9:01 AM [facility] LABPlatelet Aezfd594 150 - 400 k/uL04/07/2025 9:01 AM [facility] MDLSCW36.89.0 - 12.7 fL04/07/2025 9:01 AM [facility] LABNeutrophils %87.3%04/07/2025 9:01 AM [facility] LABAbs Neut17.34(H)1.45 - 7.50 k/uL04/07/2025 9:01 AM [facility] LABLymphocytes %4.5%04/07/2025 9:01 AM [facility] MAIN LABAbs Lymph0.89(L)1.00 - 4.00 k/uL04/07/2025 9:01 AM [facility] LABMonocytes %6.8%04/07/2025 9:01 AM [facility] LABAbs Mono1.35(H)<0.87 k/uL04/07/2025 9:01 AM [facility] LABEosinophils %0.2%04/07/2025 9:01 AM [facility] LABAbs Eosin0.04<0.46 k/uL04/07/2025 9:01 AM [facility] LABBasophils % 0.3%04/07/2025 9:01 AM [facility] LABAbs Baso0.05<0.11 k/uL 04/07/2025 9:01 AM [facility] LABImmature Granulocytes %0.9% 04/07/2025 9:01 AM [facility] LABAbs Immature Gran0.17(H)<0.10 k/uL04/07/2025 9:01 AM [facility] LABNRBC0.0/100 WBC04/07/2025 9:01 AM [facility] LABAbsolute nRBC<0.01<0.01 k/uL04/07/2025 9:01 AM [facility] LABDiff HwioYsjo66/16/2025 9:01 AM [facility] LABSpecimen (Source)Anatomical Location / Laterality Collection Method / VolumeCollection TimeReceived TimeBloodBLOOD SPECIMEN / UnknownVenipuncture / Uvbghcm9304/07/2025 7:14 AM EST04/07/2025 8:47 AM EST Narrative Authorizing ProviderResult TypeResult StatusLuciano TastaldiLABORATORYFinal ResultPerforming OrganizationAddressCity/State/[facility] [[email or web address]] CodePhone Number [facility] [address] * (ABNORMAL) COMPREHENSIVE METABOLIC PANEL (04/07/2025 7:14 AM EST)Component ValueRef RangeTest MethodAnalysis TimePerformed AtPathologist Signature Protein, Total6.56.3 - 8.0 g/dL04/07/2025 9:36 AM [facility] LAB Albumin3.7(L)3.9 - 4.9 g/dL04/07/2025 9:36 AM [facility] LAB Calcium, Total7.8(L)8.5 - 10.2 mg/dL04/07/2025 9:36 AM [facility] LABBilirubin, Total0.60.2 - 1.3 mg/dL04/07/2025 9:36 AM [facility] LABAlkaline Sncbsdnadem4757 - 123 U/L106/07/2024 9:36 AM [facility] JBBBUG49(H)13 - 35 U/L106/07/2024 9:36 AM [facility] KEKTPR080 - 38 U/L106/07/2024 9:36 AM [facility] LAB Inboamq327(H)74 - 99 mg/dL04/07/2025 9:36 AM [facility] LAB Comment: The [place] [employer] (ADA) provides guidance for cutoff [...] Standards of Medical Care in Diabetes 2016, [place] [employer]. Diabetes Care. 2016.39(Suppl 1). IPE942 - 21 mg/dL04/07/2025 9:36 AM [facility] LABCreatinine0.72 0.58 - 0.96 mg/dL04/07/2025 9:36 AM [facility] RKEOorlcd316076 - 144 mmol/L106/07/2024 9:36 AM [facility] LABPotassium3.93.7 - 5.1 mmol/L106/07/2024 9:36 AM [facility] EWBNtiqbsxr38340 - 107 mmol/L 04/07/2025 9:36 AM [facility] DFETD34661 - 30 mmol/L106/07/2024 9:36 AM [facility] LABAnion Ovv703 - 15 mmol/L106/07/2024 9:36 AM [facility] LABEstimated Glomerular Filtration Rate90>=60 mL/min/1.73m 04/07/2025 9:36 AM [facility] LABComment:Estimated Glomerular Filtration Rate (eGFR) [...] VolumeCollection TimeReceived TimeBloodBLOOD SPECIMEN / UnknownVenipuncture / Oivjpdl1504/07/2025 7:14 AM EST04/07/2025 8:47 AM EST Narrative Authorizing ProviderResult TypeResult StatusAlessandro Borden MDLABORATORYFinal ResultPerforming OrganizationAddressCity/State/[place] [address], * (ABNORMAL) HIGH SENSITIVITY TROPONIN T (04/07/2025 7:14 AM EST)ComponentValue Ref RangeTest MethodAnalysis TimePerformed AtPathologist SignatureTNT High Xqmxwtnnryf23(H)<12 ng/L106/07/2024 9:36 AM [facility] LAB Specimen (Source)Anatomical Location / LateralityCollection Method / Volume Collection TimeReceived TimeBloodBLOOD SPECIMEN / UnknownVenipuncture / Nmtcwgz5904/07/2025 7:14 AM EST04/07/2025 8:47 AM EST Narrative Authorizing ProviderResult TypeResult StatusJoo BalesLABORATORYFinal ResultPerforming OrganizationAddressCity/State/[place] [address], * (ABNORMAL) GLUCOSE, BLOOD (POC) (04/07/2025 5:23 AM EST)ComponentValueRef RangeTest MethodAnalysis TimePerformed AtPathologist SignatureGlucose, Point of Bvcs558(A)74 - 99 mg/dLSelect Medical Specialty Hospital - [facility]-FairhillComment: Location:[facility], [address] [place] [address], [facility] The Accu-Chek Inform II glucose meter has [...] StatusLuciano TastaldiPOC TESTINGFinal ResultPerforming OrganizationAddressCity/State/ZIP CodePhone Number [facility] POINT OF CARE [address] * (ABNORMAL) GLUCOSE, BLOOD (POC) (04/06/2025 11:24 PM EST)ComponentValueRef RangeTest MethodAnalysis TimePerformed AtPathologist SignatureGlucose, Point of Fshv294(A)74 - 99 mg/dLSelect Medical Specialty Hospital - Cleveland-FairhillComment: Location:[address], [facility] The Accu-Chek Inform II glucose meter has [...] StatusLuciano TastaldiPOC TESTINGFinal ResultPerforming OrganizationAddressCity/State/ZIP CodePhone Number [facility] POINT [facility] CARE [address] * (ABNORMAL) GLUCOSE, BLOOD (POC) (04/06/2025 5:31 PM EST)ComponentValueRef RangeTest MethodAnalysis TimePerformed AtPathologist SignatureGlucose, Point of Mdnu163(A)74 - 99 mg/dLSelect Medical Specialty Hospital - [facility]-FairhillComment: Location:[address], [facility] The Accu-Chek Inform II glucose meter has [...] PM EST Narrative Authorizing ProviderResult TypeResult StatusLuciano TastaldiC TESTINGFinal ResultPerforming OrganizationAddressCity/State/ZIP CodePhone Number [facility] POINT OF CARE [address] * (ABNORMAL) GLUCOSE, BLOOD (POC) (04/06/2025 1:20 PM EST)ComponentValueRef RangeTest MethodAnalysis TimePerformed AtPathologist SignatureGlucose, Point of Axts607(A)74 - 99 mg/dLSelect Medical Specialty Hospital - Cleveland-FairhillComment: Location:[address], [facility] The Accu-Chek Inform II glucose meter has [...] 1:20 PM EST Narrative Authorizing ProviderResult TypeResult StatusJoo BalesVERMONT STATE HOSPITAL TESTINGFinal ResultPerforming OrganizationAddressCity/State/ZIP CodePhone Number [facility] POINT OF CARE [facility] [address] [place], [place] * XR UPPER GI SINGLE CONTRAST (04/06/2025 11:20 AM EST)Anatomical Region LateralityModalityRadiographic ImagingSpecimen (Source)Anatomical Location / LateralityCollection Method / VolumeCollection TimeReceived Time04/06/2025 11:20 AM EST Impressions 04/06/2025 1:30 PM EST IMPRESSION: NO LEAK. ANGULATED DISTAL ESOPHAGUS IN LOWER MEDIASTINUM, WITH GE JUNCTION LIKELY SITTING JUST ABOVE THE LEVEL OF DIAPHRAGMATIC HIATUS, DESCRIBED COMMUNICATION: ??Communicated with JOO BALES on 04/06/2025 11:27 AM via verbal communication. Leaf Stamper: REE ?? Transcribe Date/Time: Apr 06 2025 [...] 0:56 (min:sec). Air kerma: 20.2 mGy. RESULT: Screen Cutter And Trimmer: Moderate gaseous distention of stomach. There are [...] remainder of the procedure. Procedure Note Provider, [facility] - 04/06/2025 * * *Final Report* * [...] 0:56 (min:sec). Air kerma: 20.2 mGy. RESULT: Screen Cutter And Trimmer: Moderate gaseous distention of stomach. There are [...] on 04/06/2025 11:27 AM via verbal communication. Leaf Stamper: REE Transcribe Date/Time: Apr 06 2025 11:23A Dictated by : KAYLA TALBOT MD This examination was interpreted and the report reviewed and electronically signed by: ALIA CHANDLER MD on Apr 06 2025 1:28PM EST Authorizing ProviderResult TypeResult StatusLuctanvir BalesRAD-PAMAFinal Result * (ABNORMAL) C-REACTIVE PROTEIN (04/06/2025 7:14 AM EST)ComponentValueRef Range Test MethodAnalysis TimePerformed AtPathologist SignatureCRP8.6(H)<0.9 mg/dL 04/06/2025 10:11 AM [facility] LABSpecimen (Source)Anatomical Location / LateralityCollection Method / VolumeCollection TimeReceived Time BloodBLOOD SPECIMEN / UnknownVenipuncture / Usbkfmn8604/06/2025 7:14 AM EST 04/06/2025 8:28 AM EST Narrative Authorizing ProviderResult TypeResult StatusLuciano TastaldiLABORATORYFinal ResultPerforming OrganizationAddressCity/State/ZIP CodePhone Number [facility] [address] [place] [address], * (ABNORMAL) PHOSPHORUS INORGANIC (04/06/2025 7:14 AM EST)ComponentValueRef RangeTest MethodAnalysis TimePerformed AtPathologist SignaturePhosphorus1.7(L) 2.7 - 4.8 mg/dL04/06/2025 10:11 AM ESTOH[facility] LABSpecimen (Source)Anatomical Location / LateralityCollection Method / VolumeCollection TimeReceived TimeBloodBLOOD SPECIMEN / UnknownVenipuncture / Llimnga1204/06/2025 7:14 AM EST04/06/2025 8:28 AM EST Narrative Authorizing ProviderResult TypeResult StatusLuciano TastaldiLABORATORYFinal ResultPerforming OrganizationAddressCity/State/ZIP CodePhone Number [facility] [address] [place] [address], * MAGNESIUM (04/06/2025 7:14 AM EST)ComponentValueRef RangeTest MethodAnalysis TimePerformed AtPathologist SignatureMagnesium2.31.7 - 2.3 mg/dL04/06/2025 10:11 AM ESTOH[facility] LABSpecimen (Source)Anatomical Location / LateralityCollection Method / VolumeCollection TimeReceived TimeBloodBLOOD SPECIMEN / UnknownVenipuncture / Pgynlwb6604/06/2025 7:14 AM EST04/06/2025 8:28 AM EST Narrative Authorizing ProviderResult TypeResult StatusLuciano TastaldiLABORATORYFinal ResultPerforming OrganizationAddressCity/State/ZIP CodePhone Number [facility] [address] [place] [address], * (ABNORMAL) COMPLETE BLOOD COUNT AND DIFFERENTIAL (04/06/2025 7:14 AM EST) ComponentValueRef RangeTest MethodAnalysis TimePerformed AtPathologist HcbfbcojoVHB91.75(H)3.70 - 11.00 k/uL04/06/2025 9:21 AM [facility] LABRBC3.65(L)3.90 - 5.20 m/uL04/06/2025 9:21 AM [facility] GDWIwglzqamej55.8(L)11.5 - 15.5 g/dL04/06/2025 9:21 AM [facility] APXAlqyucssqt74.8(L)36.0 - 46.0 %04/06/2025 9:21 AM [facility] QKHBEN43.680.0 - 100.0 fL04/06/2025 9:21 AM [facility] LAB MCH29.626.0 - 34.0 pg04/06/2025 9:21 AM [facility] MQNLEGF56.0 30.5 - 36.0 g/dL04/06/2025 9:21 AM [facility] LABRDW-CV17.8(H) 11.5 - 15.0 %04/06/2025 9:21 AM [facility] LABPlatelet Eojji720 150 - 400 k/uL04/06/2025 9:21 AM [facility] XDDWRO52.19.0 - 12.7 fL04/06/2025 9:21 AM [facility] LABNeutrophils %80.5%04/06/2025 9:21 AM [facility] LABAbs Neut11.08(H)1.45 - 7.50 k/uL04/06/2025 9:21 AM [facility] LABLymphocytes %8.4%04/06/2025 9:21 AM [facility] LABAbs Lymph1.151.00 - 4.00 k/uL04/06/2025 9:21 AM [facility] LABMonocytes %9.2%04/06/2025 9:21 AM [facility] LABAbs Mono1.27(H)<0.87 k/uL04/06/2025 9:21 AM [facility] LABEosinophils %0.7%04/06/2025 9:21 AM [facility] LABAbs Eosin 0.09<0.46 k/uL04/06/2025 9:21 AM [facility] LABBasophils %0.3% 04/06/2025 9:21 AM [facility] LABAbs Baso0.04<0.11 k/uL 04/06/2025 9:21 AM [facility] LABImmature Granulocytes %0.9% 04/06/2025 9:21 AM [facility] LABAbs Immature Gran0.12(H)<0.10 k/uL04/06/2025 9:21 AM [facility] LABNRBC0.0/100 WBC04/06/2025 9:21 AM [facility] LABAbsolute nRBC<0.01<0.01 k/uL04/06/2025 9:21 AM [facility] LABDiff OjckRelh25/15/2025 9:21 AM [facility] LABSpecimen (Source)Anatomical Location / Laterality Collection Method / VolumeCollection TimeReceived TimeBloodBLOOD SPECIMEN / UnknownVenipuncture / Vvtsxvr4004/06/2025 7:14 AM EST04/06/2025 8:26 AM EST Narrative Authorizing ProviderResult TypeResult StatusLuciano TastaldiLABORATORYFinal ResultPerforming OrganizationAddressCity/State/ZIP CodePhone Number [facility] [address] * (ABNORMAL) COMPREHENSIVE METABOLIC PANEL (04/06/2025 7:14 AM EST)Component ValueRef RangeTest MethodAnalysis TimePerformed AtPathologist Signature Protein, Total6.2(L)6.3 - 8.0 g/dL04/06/2025 10:11 AM [facility] LABAlbumin3.7(L)3.9 - 4.9 g/dL04/06/2025 10:11 AM [facility] LAB Calcium, Total8.0(L)8.5 - 10.2 mg/dL04/06/2025 10:11 AM [facility] LABBilirubin, Total0.50.2 - 1.3 mg/dL04/06/2025 10:11 AM [facility] LABAlkaline Uwewatzzspm5570 - 123 U/L106/06/2024 10:11 AM [facility] XGPGYX88(H)13 - 35 U/L106/06/2024 10:11 AM [facility] JWFHDL50(H)7 - 38 U/L106/06/2024 10:11 AM [facility] KBSPopmjgb2821 - 99 mg/dL04/06/2025 10:11 AM [facility] LAB Comment: The [place] [employer] (ADA) provides guidance for cutoff [...] Standards of Medical Care in Diabetes 2016, [place] [employer]. Diabetes Care. 2016.39(Suppl 1). ZJX262 - 21 mg/dL04/06/2025 10:11 AM [facility] LABCreatinine0.66 0.58 - 0.96 mg/dL04/06/2025 10:11 AM [facility] BTOFibiys851104 - 144 mmol/L106/06/2024 10:11 AM [facility] LABPotassium4.13.7 - 5.1 mmol/L106/06/2024 10:11 AM [facility] ZYRGtqjnyym03265 - 107 mmol/L 04/06/2025 10:11 AM [facility] SXPEI68337 - 30 mmol/L106/06/2024 10:11 AM [facility] LABAnion Pdz189 - 15 mmol/L106/06/2024 10:11 AM [facility] LABEstimated Glomerular Filtration Rate94>=60 mL/min/1.73m 04/06/2025 10:11 AM [facility] LABComment:Estimated Glomerular Filtration Rate (eGFR) [...] VolumeCollection TimeReceived TimeBloodBLOOD SPECIMEN / UnknownVenipuncture / Ssrpnbh6004/06/2025 7:14 AM EST04/06/2025 8:28 AM EST Narrative Authorizing ProviderResult TypeResult Scott Borden MDLABORATORYFinal ResultPerforming OrganizationAddressCity/State/ZIP CodePhone Number [facility] [address] [place] [address], * (ABNORMAL) HIGH SENSITIVITY TROPONIN T (04/06/2025 7:14 AM EST)ComponentValue Ref RangeTest MethodAnalysis TimePerformed AtPathologist SignatureTNT High Keuolcdyhqy59(H)<12 ng/L106/06/2024 10:11 AM [facility] LAB Specimen (Source)Anatomical Location / LateralityCollection Method / Volume Collection TimeReceived TimeBloodBLOOD SPECIMEN / UnknownVenipuncture / Zctipjt8204/06/2025 7:14 AM EST04/06/2025 8:28 AM EST Narrative Authorizing ProviderResult TypeResult StatusAlessandro Borden MDLABORATORYFinal ResultPerforming OrganizationAddressCity/State/ZIP CodePhone Number [facility] [address] [place] [phone], * (ABNORMAL) HIGH SENSITIVITY TROPONIN T (04/06/2025 7:14 AM EST)ComponentValue Ref RangeTest MethodAnalysis TimePerformed AtPathologist SignatureTNT High Fivgxyfjerj51(H)<12 ng/L106/06/2024 10:06 AM [facility] LAB Specimen (Source)Anatomical Location / LateralityCollection Method / Volume Collection TimeReceived TimeBloodBLOOD SPECIMEN / UnknownVenipuncture / Clhereu8204/06/2025 7:14 AM EST04/06/2025 8:29 AM EST Narrative Authorizing ProviderResult TypeResult StatusLuciano TastaldiLABORATORYFinal ResultPerforming OrganizationAddressCity/State/ZIP CodePhone Number [facility] [address] [place] [phone], * (ABNORMAL) PHOSPHORUS INORGANIC (04/05/2025 6:15 PM EST)ComponentValueRef RangeTest MethodAnalysis TimePerformed AtPathologist SignaturePhosphorus2.4(L) 2.7 - 4.8 mg/dL04/05/2025 6:47 PM [facility] LABSpecimen (Source)Anatomical Location / LateralityCollection Method / VolumeCollection TimeReceived TimeBloodBLOOD SPECIMEN / UnknownVenipuncture / Gvhmsus7304/05/2025 6:15 PM EST04/05/2025 6:26 PM EST Narrative Authorizing ProviderResult TypeResult StatusLuciano TastaldiLABORATORYFinal ResultPerforming OrganizationAddressCity/State/ZIP CodePhone Number [facility] [address] [place] [phone], * (ABNORMAL) BASIC METABOLIC PANEL (04/05/2025 6:15 PM EST)ComponentValueRef RangeTest MethodAnalysis TimePerformed AtPathologist OpbvjcbeqItwtslu625(H)74 - 99 mg/dL04/05/2025 6:47 PM [facility] LABComment: The [place] [employer] (ADA) provides guidance for cutoff [...] Standards of Medical Care in Diabetes 2016, [place] [employer]. Diabetes Care. 2016.39(Suppl 1). OZN205 - 21 mg/dL04/05/2025 6:47 PM [facility] LABCreatinine0.66 0.58 - 0.96 mg/dL04/05/2025 6:47 PM [facility] FBVXxnmog462093 - 144 mmol/L106/05/2024 6:47 PM [facility] LABPotassium5.13.7 - 5.1 mmol/L106/05/2024 6:47 PM [facility] CMHCovacpjx815(H)98 - 107 mmol/L106/05/2024 6:47 PM [facility] JQHRC723(L)22 - 30 mmol/L 04/05/2025 6:47 PM [facility] LABAnion Joe627 - 15 mmol/L 04/05/2025 6:47 PM [facility] LABCalcium, Total7.8(L)8.5 - 10.2 mg/dL04/05/2025 6:47 PM [facility] LABEstimated Glomerular Filtration Rate94>=60 mL/min/1.73m 04/05/2025 6:47 PM [facility] LABComment:Estimated Glomerular Filtration Rate (eGFR) [...] VolumeCollection TimeReceived TimeBloodBLOOD SPECIMEN / UnknownVenipuncture / Yksdwld3704/05/2025 6:15 PM EST04/05/2025 6:26 PM EST Narrative Authorizing ProviderResult TypeResult StatusLuciano TastaldiLABORATORYFinal ResultPerforming OrganizationAddressCity/State/ZIP CodePhone Number [facility] [address] [place] [address], * (ABNORMAL) COMPLETE BLOOD COUNT (04/05/2025 6:15 PM EST)ComponentValueRef RangeTest MethodAnalysis TimePerformed AtPathologist XvzzirnhoIZJ55.87(H)3.70 - 11.00 k/uL04/05/2025 6:35 PM [facility] LABRBC3.53(L)3.90 - 5.20 m/uL04/05/2025 6:35 PM [facility] QZVIbjgedzptt47.3(L)11.5 - 15.5 g/dL04/05/2025 6:35 PM [facility] ZOUKqemvctznd43.5(L) 36.0 - 46.0 %04/05/2025 6:35 PM [facility] YIXMNM93.280.0 - 100.0 fL04/05/2025 6:35 PM [facility] DWSZJJ84.226.0 - 34.0 pg 04/05/2025 6:35 PM [facility] HHNFHNB77.730.5 - 36.0 g/dL 04/05/2025 6:35 PM [facility] LABRDW-CV17.6(H)11.5 - 15.0 % 04/05/2025 6:35 PM [facility] LABPlatelet Wlddz280661 - 400 k/uL 04/05/2025 6:35 PM [facility] QNRESU57.09.0 - 12.7 fL04/05/2025 6:35 PM [facility] LABAbsolute nRBC<0.01<0.01 k/uL04/05/2025 6:35 PM [facility] LABSpecimen (Source)Anatomical Location / LateralityCollection Method / VolumeCollection TimeReceived TimeBloodBLOOD SPECIMEN / UnknownVenipuncture / Vdjunhm5404/05/2025 6:15 PM EST04/05/2025 6:26 PM EST Narrative Authorizing ProviderResult TypeResult StatusLuciano TastaldiLABORATORYFinal ResultPerforming OrganizationAddressCity/State/ZIP CodePhone Number [facility] [address] [place] [address], * MAGNESIUM (04/05/2025 6:15 PM EST)ComponentValueRef RangeTest MethodAnalysis TimePerformed AtPathologist SignatureMagnesium1.81.7 - 2.3 mg/dL04/05/2025 6:47 PM [facility] LABSpecimen (Source)Anatomical Location / LateralityCollection Method / VolumeCollection TimeReceived TimeBloodBLOOD SPECIMEN / UnknownVenipuncture / Auwqtle4204/05/2025 6:15 PM EST04/05/2025 6:26 PM EST Narrative Authorizing ProviderResult TypeResult StatusLuciano TastaldiLABORATORYFinal ResultPerforming OrganizationAddressCity/State/ZIP CodePhone Number [facility] [address] [place] [address], [place] * XR CHEST 1V FRONTAL PORT (04/05/2025 12:56 PM EST)Anatomical RegionLaterality ModalityChestRadiographic ImagingSpecimen (Source)Anatomical Location / LateralityCollection Method / VolumeCollection TimeReceived Time04/05/2025 12:56 PM EST Impressions 04/05/2025 1:07 PM EST IMPRESSION: See result. Leaf Stamper: REE ?? Transcribe Date/Time: Apr 05 2025 [...] silhouette. ?? Other: ??. Procedure Note Provider, [facility] [place] - 04/05/2025 * * *Final Report* * [...] silhouette. Other: . IMPRESSION IMPRESSION: See result. Leaf Stamper: REE Transcribe Date/Time: Apr 05 2025 1:04P Dictated by : LIBERTY FARRIS MD This examination was interpreted and the report reviewed and electronically signed by: LIBERTY FARRIS MD on Apr 05 2025 1:05PM EST Authorizing ProviderResult TypeResult StatusBrrufino Borden MDRAD-PAMAFinal Result * (ABNORMAL) ARTERIAL BLOOD GASES WITH IONIZED MAGNESIUM (04/05/2025 12:36 PM EST)ComponentValueRef RangeTest MethodAnalysis TimePerformed AtPathologist SignaturepH, Arterial7.32(L)7.35 - 7.45106/05/2024 12:47 PM [facility] LABpCO2, Qgzhovxo4530 - 46 mm Hg04/05/2025 12:47 PM [facility] LABpO2, Cgomakuk016(H)85 - 95 mm Hg04/05/2025 12:47 PM [facility] LABBicarbonate, Eoubfvvr96(L)22 - 26 mmol/L106/05/2024 12:47 PM EST [facility] LABO2 Saturation, Hysktrqq0739 - 98 %04/05/2025 12:47 PM [facility] LABBase Deficit, Arterial-5(L)-2 - 0 mmol/L106/05/2024 12:47 PM [facility] LABOxyhemoglobin, Janjgxnd7689 - 98 % 04/05/2025 12:47 PM [facility] LABCarboxyhemoglobin, Arterial1.1 0.0 - 2.0 %04/05/2025 12:47 PM [facility] LABComment: Carboxyhemoglobin Reference Range for Smokers: 2.0-8.0%Methemoglobin, Arterial 1.00.0 - 1.5 %04/05/2025 12:47 PM [facility] LABSodium, Whole Skzwh766240 - 144 mmol/L106/05/2024 12:47 PM [facility] LAB Potassium, Whole Blood4.73.5 - 5.0 mmol/L106/05/2024 12:47 PM [facility] LABCalcium Ionized, Whole Blood1.101.08 - 1.30 mmol/L106/05/2024 12:47 PM [facility] LABCalcium Ionized, pH corrected1.05(L)1.08 - 1.30 mmol/L106/05/2024 12:47 PM [facility] LABGlucose, Whole Sjtls965(H)60 - 105 mg/dL04/05/2025 12:47 PM [facility] LAB Lactate0.50.5 - 2.2 mmol/L106/05/2024 12:47 PM [facility] LAB Ionized Magnesium0.470.45 - 0.60 mmol/L106/05/2024 12:47 PM [facility] LABHemoglobin, Whole Blood10.8(L)11.5 - 15.5 g/dL04/05/2025 12:47 PM [facility] LABHematocrit, Whole Blood33.4(L)36.0 - 46.0 %04/05/2025 12:47 PM [facility] LABTemperature, Body37.0C106/05/2024 12:47 PM [facility] JKEYcfixl2Tqponh/min04/05/2025 12:47 PM [facility] LABO2 TherapyNC = Nasal Sguqohd1604/05/2025 12:47 PM [facility] LABSpecimen (Source)Anatomical Location / LateralityCollection Method / VolumeCollection TimeReceived TimeBlood, ArterialBLOOD SPECIMEN / Rxvhyyt4604/05/2025 12:36 PM EST11/ 12:45 PM EST Narrative Authorizing ProviderResult TypeResult StatusAlessandro GARCIA GASESFinal ResultPerforming OrganizationAddressCity/State/ZIP CodePhone Number [facility] [address] * (ABNORMAL) ARTERIAL BLOOD GASES WITH IONIZED MAGNESIUM (04/05/2025 10:07 AM EST)ComponentValueRef RangeTest MethodAnalysis TimePerformed AtPathologist SignaturepH, Arterial7.31(L)7.35 - 7.45106/05/2024 10:39 AM [facility] LABpH, Temp Corrected, Arterial7.31(L)7.35 - 7.45106/05/2024 10:39 AM [facility] LABpCO2, Hmsjoeyv1217 - 46 mm Hg04/05/2025 10:39 AM [facility] LABpCO2, Temp Corrected, Lvllkfxj5391 - 46 mmHg 04/05/2025 10:39 AM [facility] LABpO2, Mtfulokj496(H)85 - 95 mm Hg04/05/2025 10:39 AM [facility] LABpO2, Temp Corrected, Boojpwqi590(H)85 - 95 mmHg04/05/2025 10:39 AM [facility] LAB Bicarbonate, Cextctpi43(L)22 - 26 mmol/L106/05/2024 10:39 AM [facility] LABO2 Saturation, Tyusrpcy71(H)95 - 98 %04/05/2025 10:39 AM [facility] LABBase Deficit, Arterial-6(L)-2 - 0 mmol/L106/05/2024 10:39 AM [facility] LABOxyhemoglobin, Qxflsarx0497 - 98 % 04/05/2025 10:39 AM [facility] LABCarboxyhemoglobin, Arterial0.9 0.0 - 2.0 %04/05/2025 10:39 AM [facility] LABComment: Carboxyhemoglobin Reference Range for Smokers: 2.0-8.0%Methemoglobin, Arterial 1.6(H)0.0 - 1.5 %04/05/2025 10:39 AM [facility] LABSodium, Whole Mkxfo896263 - 144 mmol/L106/05/2024 10:39 AM [facility] LAB Potassium, Whole Blood4.83.5 - 5.0 mmol/L106/05/2024 10:39 AM [facility] LABCalcium Ionized, Whole Blood1.161.08 - 1.30 mmol/L106/05/2024 10:39 AM [facility] LABCalcium Ionized, pH corrected1.101.08 - 1.30 mmol/L106/05/2024 10:39 AM [facility] LABGlucose, Whole Seeag857(H)60 - 105 mg/dL04/05/2025 10:39 AM [facility] LAB Lactate0.50.5 - 2.2 mmol/L106/05/2024 10:39 AM [facility] LAB Ionized Magnesium0.570.45 - 0.60 mmol/L106/05/2024 10:39 AM [facility] LABHemoglobin, Whole Blood11.0(L)11.5 - 15.5 g/dL04/05/2025 10:39 AM [facility] LABHematocrit, Whole Blood34.1(L)36.0 - 46.0 %04/05/2025 10:39 AM [facility] LABSpecimen (Source)Anatomical Location / LateralityCollection Method / VolumeCollection TimeReceived TimeBlood, ArterialBLOOD SPECIMEN / Vewuiom4104/05/2025 10:07 AM EST04/05/2025 10:34 AM EST Narrative Authorizing ProviderResult TypeResult StatusOksana Loginova ALLIGATOR SHEAR OPERATOR.CRNABLOOD GASES Final ResultPerforming OrganizationAddressCity/State/ZIP CodePhone Number [facility] [address] * CONFIRM BLOOD TYPE (04/05/2025 7:05 AM EST)ComponentValueRef RangeTest Method Analysis TimePerformed AtPathologist RkhxrlgswRLLH79/14/2025 9:20 AM EST [facility] LABRh(D)Yzdcrrqg89/14/2025 9:20 AM [facility] LABSpecimen (Source)Anatomical Location / LateralityCollection Method / VolumeCollection TimeReceived TimeBloodBLOOD SPECIMEN / UnknownVenipuncture / Ksjftbd9404/05/2025 7:05 AM EST04/05/2025 7:31 AM EST Narrative Authorizing ProviderResult TypeResult StatusLuciano EmitaldiBLMARY JO BANKFinal ResultPerforming OrganizationAddressCity/State/ZIP CodePhone Number [facility] [address] [place] [address], documented in this encounter Visit Diagnoses Diagnosis [...] Obesity, Class I, BMI 30-34.9 Obesity, unspecified Preoperative examination Preoperative examination, unspecified Hiatal hernia Diaphragmatic hernia without mention of obstruction or gangrene documented in this encounter Admitting Diagnoses Diagnosis Paraesophageal hernia Diaphragmatic hernia without mention of obstruction or gangrene documented in this encounter Administered Medications Medication OrderMAR ActionAction DateDoseRateSite acetaminophen 1,000 mg CUP (TYLENOL) 1,000 mg, ORAL, EVERY 6 HOURS, First dose (after last modification) on Tue04/10/25 at 0000, Until Discontinued Given04/10/2025 12:22 PM EST1,000 dzKcekh3104/10/2025 4:57 AM EST1,000 mgGiven 04/09/2025 11:21 PM EST1,000 mg albuterol HFA 90 mcg/actuation 2 [...] source(s): Respiratory, Pharmacist may modify dose per [facility] dose optimization consult agreement: Yes Given04/10/2025 8:22 AM EUA850 mg ARIPiprazole 30 mg tab(s) (ABILIFY) 30 [...] suck on lozenge or based onpatient preference gmfokrlult-syzbjrex-icykhurjdz 160-9-4.8 mcg/actuation HFA 2 puff (BREZTRI) 2 puff, INHALATION, 2 TIMES DAILY, First dose on Tue04/07/25 at 1100, Until Discontinued, ok to use the home medication Given04/10/2025 8:53 AM EST2 tmflxIfwfx37/18/2025 7:38 PM EST2 puffsGiven 04/09/2025 10:10 AM EST2 puffs bupivacaine (PF) 0.25 % (2.5 mg/mL) injection (SENSORCAINE MPF) X (OR/PROCEDURE) PRN, Starting on Tue04/05/25 at 1147, Until Tue04/05/25 at 1226, Intraprocedure Given04/05/2025 11:47 AM EST30 mL dextrose 10% iv bolus 125 mL (12.5 [...] - dextrose 15 gram/32 mL 15 g (TRUEPLUS) 15 g, ORAL, NEEDED, Starting on 04/06/25 at 1301, Until Tue04/10/25 at 212, low blood sugar, Use when blood glucose [...] on 04/08/25 at 1130, Until Tue04/10/25 at 2124 Rate/Dose Itzgyb0604/10/2025 8:04 AM EST30 mL/hr30 mL/hrNew Bag/Syringe/Bottle 04/09/2025 8:45 PM EST75 mL/hr75 mL/hrRate/Dose Btdzas8504/09/2025 7:01 PM EST75 mL/hr75 mL/hr enoxaparin 40 mg injection (LOVENOX) 40 mg, SUBCUTANEOUS, DAILY, First dose (after last reorder) on Beatrice 04/11/25 at 0900, Until Discontinued FLUoxetine 20 mg cap(s) (PROzac) 20 mg, [...] hydromorphone 1mg IV = morphine 8mg IV levothyroxine 50 mcg tab(s) (SYNTHROID) 50 mcg, ORAL, DAILY AT 6 AM, First dose on Tue04/06/25 at 0600, Until Discontinued Given04/10/2025 4:57 AM EST50 qqbTiwpy41/18/2025 5:33 AM EST50 mcgGiven 04/08/2025 5:33 AM EST50 mcg metoclopramide HCl 10 mg tab(s) (REGLAN) 10 mg, NASOGASTRIC, 3 TIMES DAILY, First dose (after last modification) on Tue04/09/25 at 1000, Until Discontinued, Pharmacist may modify dose per [facility] dose optimization consult agreement: Yes Given04/10/2025 12:22 PM EST10 [id number]/10/2025 8:01 AM EST10 uoOiafe3704/09/2025 8:37 PM EST10 mg metoprolol tartrate (short acting) 25 mg tab(s) (LOPRESSOR) 25 mg, ORAL, EVERY 8 HOURS, First dose (after last modification) on Tue04/09/25 at 2200, Until Discontinued, Hold if HR < 60 or SBP < 110 or DBP < 60 , On hold since Tue04/10/2025 at 0800 until Beatrice 04/11/2025 at 1800 Given04/09/2025 8:36 PM EST25 mg NaCl 0.9% iv flush bag 20 mL, INTRAVENOUS, NEEDED, Starting on Tue04/06/25 at 0547, Until Tue04/10/25 at 2124, See admin instructions, If no compatible primary is already running, infuse NaCl 0.9% as primary to flush tubing after non-chemotherapy, non-immunotherapy intermittent infusions. Administer at the same rateas intermittent infusion. Select the Flush Bag file on smart pump. ondansetron (PF) 4 mg injection (ZOFRAN) 4 mg, INTRAVENOUS, EVERY 6 HOURS NEEDED, Starting on Tue04/09/25 at 1900, Until Tue04/10/25 [id number], Nausea/Vomiting - First Line - Parenteral, Give IV push over 2 minutes oxyCODONE 5-10 mg oral liquid (ROXICODONE) 5-10 mg, ORAL, EVERY 6 HOURS NEEDED, Starting on Tue04/10/25 at 0810, Until Tue04/10/25 at 2124, Severe Pain (>/=7) - Enteral Given04/10/2025 2:00 PM EST10 [address] pantop[address]ole [address] 40 mg tab(s) (PROTONIX) [...] on 04/07/25 at 0917, Until Tue04/10/25 at 2124, Sore Throat, Use if unable to suck on lozenge or based onpatient preference Environmental Hazardous Drug: Use appropriate PPE. Given04/07/2025 12:00 PM EST1 spray simethicone 80 mg oral liquid (MYLICON) 80 mg, ORAL, EVERY 8 HOURS, First dose on 04/06/25 at 1130, Until Discontinued, Shake Well Given04/10/2025 4:58 AM EST80 ghSbndr7004/09/2025 8:37 PM EST80 asXzeft9304/09/2025 5:33 AM EST80 mg sodium chloride 0.9 % (flush) 2-10 mL (BD POSIFLUSH) 2-10 mL, INTRAVENOUS, DIRECTED NEEDED, 1 dose, Starting on 04/06/25 at 0610, Until Tue04/10/25 at 2124, Per Protocol - for use during ECHO procedure only documented in this encounter Active and Recently Administered Medications Times are shown in EST.Medication Order/ acetaminophen 1,000 mg CUP (TYLENOL) (CANCELED) 1,000 mg, NASOGASTRIC, EVERY 6 HOURS, First dose (after last modification) on Tue04/07/25 at 1200,Until Discontinued * 0632 (Given - Provider: Daksha Lin RN) * 1152 (Given - Provider: Mariya Paul, RN) * 1707 (Not Given - Provider: Mariya Paul RN - Reason: Lab/Clinical Condition Not Within parameters) * 0000 (Not Given - Provider: Arti Martin RN - Reason: Patient Declined. LIP Notified) * 0533 (Given - Provider: Arti Martin RN) * 1326 (Given - Provider: Farhat Beavers, RN) * 1800 (Not Given - Provider: Farhat Beavers RN - Reason: Based on RT/Nurses Assessment, LIP Notified) acetaminophen 1,000 mg CUP (TYLENOL) 1,000 mg, ORAL, EVERY 6 HOURS, First dose (after last modification) on Tue04/10/25 at 0000, Until Discontinued * 2321 (Given - Provider: Arti Martin RN) * 0457 (Given - Provider: Arti Martin, MATHEUS) * 1222 (Given - Provider: Farhat Beavers, MATHEUS) * 1800 (Due) amitriptyline 50 mg tab(s) (ELAVIL) (CANCELED) 50 mg, NASOGASTRIC, AT BEDTIME, First dose (after last modification) on Tue04/07/25 at 2100, UntilDiscontinued * 2145 (Given - Provider: Arti Martin, MATHEUS) amitriptyline 50 mg tab(s) (ELAVIL) 50 mg, ORAL, AT BEDTIME, First dose (after last modification) on Tue04/09/25 at 2100, Until Discontinued * 2037 (Given - Provider: Arti Martin, MATHEUS) amoxicillin-clavulanate potassium 875 mg tab(s) (AUGMENTIN) 875 mg, ORAL, EVERY 12 HOURS, 14 doses, First dose on Tue04/10/25 at 0830, Last dose on Tue04/16/25 at 2100, Antimicrobial indication: Empiric, Infectious source(s): Respiratory, Pharmacist may modify dose per [facility] dose optimization consult agreement: Yes * 5736 (Given - Provider: Farhat Beavers RN) ARIPiprazole [...] 1432 (Given - Provider: Mariya Paul, MATHEUS) ossqfjqosx-njcckpuk-embqqacruh 160-9-4.8 mcg/actuation HFA 2 puff (BREZTRI) 2 puff, INHALATION, 2 TIMES DAILY, First dose on Tue04/07/25 at 1100, Until Discontinued, ok to use the home medication * 0801 (Given - Provider: Mackenzie Orozco, INFORMATION SYSTEMS CONSULTANT) * 2207 (Given - Provider: Jazz Hanna, INFORMATION SYSTEMS CONSULTANT - Comment: Patient rinsed mouth after tx) * 1010 (Given - Provider: Keya Xie, INFORMATION SYSTEMS CONSULTANT) * 1938 (Given - Provider: Luis E Stahl, INFORMATION SYSTEMS CONSULTANT) * 0853 (Given - Provider: Bri Moya, GLASS DECORATOR) dextrose 10% iv bolus (COMPLETED) 250 mL, INTRAVENOUS, at 250 mL/hr, Administer over 1 Hours, ONCE, 1 dose, On Tue04/10/25 at 0030, - NONCYTOTOXIC VESICANT - * 0011 (New Bag/Syringe/Bottle - Provider: Arti Martin RN) * 0111 (Infusion Complete - Provider: Arti Martin, MATHEUS) enoxaparin 40 mg injection (LOVENOX) (CANCELED) 40 mg, SUBCUTANEOUS, DAILY, First dose on Tue04/06/25 at 0900, Until Discontinued * 0824 (Given - Provider: Mariya Paul RN) * 0857 (Given - Provider: Oskar Landaverde) * 0801 (Given - Provider: Farhat Beavers, RN) enoxaparin 40 mg injection (LOVENOX) 40 [...] RN) * 1502 (Infusion Complete - Provider: Maryia Paul RN) * 2145 (New Bag/Syringe/Bottle - Provider: Arti Martin RN) * 2215 (Infusion Complete - Provider: Arti Martin RN) * 0906 (New Bag/Syringe/Bottle - Provider: Oskar Landaverde) * 0936 (Infusion Complete - Provider: Oskar Landaverde) * 1326 (New Bag/Syringe/Bottle - Provider: Farhat Beavers, RN) * 1356 (Infusion Complete - Provider: Farhat Beavers, RN) FLUoxetine 20 mg cap(s) (PROzac) (CANCELED) 20 mg, NASOGASTRIC, DAILY, First dose (after last modification) on Tue04/08/25 at 0900, Until Discontinued * 0824 (Given - Provider: Mariya Paul RN) * 0856 (Given - Provider: Oskar Landaverde) FLUoxetine 20 mg cap(s) (PROzac) 20 mg, ORAL, DAILY, First dose (after last modification) on Tue04/10/25 at 0900, Until Discontinued * 0801 (Given - Provider: Farhat Beavers, MATHEUS) levothyroxine 50 mcg tab(s) (SYNTHROID) 50 mcg, ORAL, DAILY AT 6 AM, First dose on Tue04/06/25 at 0600, Until Discontinued * 0533 (Given - Provider: Daksha Lin RN) * 0533 (Given - Provider: Arti Martin, MATHEUS) * 0457 (Given - Provider: Arti Martin RN) metoclopramide HCl 10 mg injection (REGLAN) (COMPLETED) 10 mg, INTRAVENOUS, EVERY 8 HOURS, 6 doses, First dose on Tue04/06/25 at 1130, Last dose on Tue04/08/25 at 0600, Pharmacist may modify dose per [facility] dose optimization consult agreement: Yes * 0533 (Given - Provider: Daksha Lin RN) metoclopramide HCl 10 mg tab(s) (REGLAN) 10 mg, NASOGASTRIC, 3 TIMES DAILY, First dose (after last modification) on Tue04/09/25 at 1000, Until Discontinued, Pharmacist may modify dose per [facility] dose optimization consult agreement: Yes * 1124 (Given - Provider: Oskar Landaverde) * 2037 (Given - Provider: Arti Martin RN) * 0801 (Given - Provider: Farhat Beavers, MATHEUS) * 1222 (Given - Provider: Farhat Beavers, MATHEUS) metoprolol tartrate (short acting) 25 mg tab(s) [...] Held by LIP - Provider: Lou Richardson APRN.TOW MOTOR DRIVER - Reason: LIP Order to Hold This Dose) * 1400 (Automatically Held - Provider: Lou Richardson APRN.TOW MOTOR DRIVER) * 212 (Order Unheld by LIP - Provider: Reg In Adtr) ondansetron (PF) 4 mg injection (ZOFRAN) (CANCELED) 4 mg, INTRAVENOUS, EVERY 6 HOURS, First dose on Tue04/05/25 at 1800, Until Discontinued, Give IV push over 2 minutes * 0533 (Given - Provider: Daksha Lin RN) * 1153 (Given - Provider: Mariya Paul, MATHEUS) * 1707 (Given - Provider: Mariya Paul, MATHEUS) * 0000 (Given - Provider: Arti Martin RN) * 0533 (Given - Provider: Arti Martin RN) * 1325 (Given - Provider: Farhat Beavers, RN) * 1800 (Not Given - Provider: Farhat Beavers, RN - Reason: Based on RT/Nurses Assessment, [...] source(s): Respiratory, Pharmacist may modify dose per [facility] dose optimization consult agreement: Yes * 2300 [...] * 2351 (Infusion Complete - Provider: Arti Martin RN) * 0458 (New Bag/Syringe/Bottle - Provider: Arti Martin RN) * 0528 (Infusion Complete - Provider: Arti [...] * 1148 (New Bag/Syringe/Bottle - Provider: Mariya Paul, MATHEUS) * 1748 (Infusion Complete - Provider: Arti Martin RN) simethicone 80 mg oral liquid (MYLICON) 80 mg, ORAL, EVERY 8 HOURS, First dose on Tue04/06/25 at 1130, Until Discontinued, Shake Well * 0533 (Given - Provider: Daksha Lin RN) * 1432 (Given - Provider: Mariya Paul, MATHEUS) * 2146 (Given - Provider: Arti Martin RN) * 0533 (Given - Provider: Arti Martin, MATHEUS) * 1400 (Not Given - Provider: Farhat Beavers RN - Reason: Based on RT/Nurses Assessment, LIP Notified) * 203 (Given - Provider: Arti Martin, MATHEUS) * [...] * 0801 (New Bag/Syringe/Bottle - Provider: Farhat Beavers RN) * 1401 (Infusion Complete - Provider: Farhat Beavers RN) Medication Order11 dextrose 5% in LR infusion (D5-LR) 5-30 mL/hr, INTRAVENOUS, CONTINUOUS, Starting on 04/08/25 at 1130, Until Tue04/10/25 at 2124 * 1431 (New Bag/Syringe/Bottle - Provider: Mariya Paul, MATHEUS) * 190 (Rate/Dose Change - Provider: Arti Martin, MATHEUS) * 2044 (New Bag/Syringe/Bottle - Provider: Arti Martin RN) * 08 (Rate/Dose Change - Provider: Farhat Beavers RN) * 2124 (Due: Order Ending - Provider: Reg In Adtr - Comment: [Order ends at this time. Document the following action when infusion is complete: Infusion Complete]) Medication Order albuterol HFA 90 mcg/actuation 2 puff (PROVENTIL [...] on 04/07/25 at 0917, Until Tue04/10/25 at 2124, Sore [...] INTRAVENOUS, EVERY 3 HOURS NEEDED, Starting on Tue04/07/25 at 1409, Until Tue04/10/25 at 0810, breakthrough pain, Caution: IV hydromorphone is approximately 8 times MORE POTENT than IV morphine. For example, hydromorphone 1mg IV = morphine 8mg IV * 0154 (Given - Provider: Daksha Lin RN) * 0544 (Given - Provider: Daksha Lin RN) * 0953 (Given - Provider: Mariya Paul, MATHEUS) * 1706 (Given - Provider: Mariya Paul, MATHEUS) * 0301 (Given - Provider: Arti Martin RN) * 0834 (Given - Provider: Farhat Beavers, MATHEUS) * 1325 (Given - Provider: Farhat Beavers, [...] on Tue04/06/25 at 0547, Until Tue04/10/25 at 212, See admin instructions, If no compatible primary is already running, infuse NaCl 0.9% as primary to flush tubing after non-chemotherapy, non-immunotherapy intermittent infusions. Administer at the same rateas intermittent infusion. Select the Flush Bag file on smart pump. ondansetron (PF) 4 mg injection (ZOFRAN) 4 mg, INTRAVENOUS, EVERY 6 HOURS NEEDED, Starting on Tue04/09/25 at 1900, Until Tue04/10/25 [id number], Nausea/Vomiting - First Line - Parenteral, Give IV push over 2 minutes oxyCODONE 5-10 mg oral liquid (ROXICODONE) (CANCELED) 5-10 mg, ORAL, EVERY 3 HOURS NEEDED, Starting on 04/06/25 at 0555, Until Tue04/09/25 at 1901, Moderate [...] 0801 (Given - Provider: Farhat Beavers RN) oxyCODONE 5-10 mg oral liquid (ROXICODONE) 5-10 mg, ORAL, EVERY 6 HOURS NEEDED, Starting on Tue04/10/25 at 0810, Until Tue04/10/25 at 2125, Severe Pain (>/=7) - Enteral * 1400 (Given - Provider: Farhat Beavers RN) perflutren lipid microspheres 1.1 mg/mL 1.3 mL [...] Starting on Tue04/05/25 at 1610, Until Tue04/10/25 [id number], Nausea/Vomiting - Second Line - Parenteral, Protect From Light sodium chloride 0.9 % (flush) 2-10 mL (BD POSIFLUSH)(Linked Group 3) 2-10 mL, INTRAVENOUS, DIRECTED NEEDED, 1 dose, Starting on 04/06/25 at 0610, Until Tue04/10/25 at 2124, Per Protocol - for use during ECHO procedure only Order Group 1: phenol 1 spray (CHLORASEPTIC)Jump to med 1 spray, MUCOUS MEMBRANE (TOPICAL MOUTH & THROAT), EVERY 2 HOURS NEEDED, Starting on 04/07/25 at 0917, Until Tue04/10/25 at 2124, Sore Throat, Use if unable to suck on lozenge or based onpatient preference Environmental Hazardous Drug: Use appropriate PPE. Or benzocaine-menthol 1 lozenge (CHLORASEPTIC)Jump to med 1 lozenge, MUCOUS MEMBRANE (TOPICAL MOUTH & THROAT), EVERY 2 HOURS NEEDED, Starting on 04/07/25 at 0917, Until Tue04/10/25 at 2124, Sore [...] Team MemberRelationshipSpecialtyStart DateEnd Date Jose Burrell Jr. [facility]09/07/00 Sabrina Wilkinson MD [address] [place] [id number] Gastroenterology02/14/25documented as of this encounter
--- OUTSIDE RECORDS SUMMARY | 2025-04-05 07:37 | XMS_ITS | Encounter Summary ---
Author Organization [facility] Address [address] [place] [id number] Care Team Providers Care Telegrapher Agent Name Role Phone Jose Burrell Jr. Primary Care Provider Sabrina Felix MD Unavailable [phone] Source Comments In the event this information is protected by the Federal Confidentiality of Alcohol and Drug AbusePatient Records regulations: The Federal rules restrict any use of the information to criminally investigate or prosecute any alcohol or drug abuse patient.[facility] Reason for Visit * Auth/Cert (Routine)SpecialtyDiagnoses / ProceduresReferred By ContactReferred To ContactADMITTING Diagnoses Preoperative examination Hiatal hernia Preoperative examination [Z01.818] Hiatal hernia [K44.9] Procedures LAPS RPR PARAESPHGL HRNA INCL FUNDPLSTY W/MESH LAPAROSCOPIC RPR PARAESOPHAGEAL HERNIA W/O FUNDOPLASTY W/ MESH Admitting [address] [place] [id number] Referral IDStatusReasonStart DateExpiration DateVisits RequestedVisits [id number] Encounter Details DateTypeDepartmentCare Team (Latest Contact Info)Urkhcnyslqf31/14/2025 7:37 AM ESTAnesthesia Event Admitting [address] [place], [place] [id number] Alessandro Borden MD [address] [phone] Anesthesia Record Procedure NameResponsible AnesthesiologistAnesthesia Start TimeAnesthesia Stop TimeLAPAROSCOPIC RPR PARAESOPHAGEAL HERNIA W/O FUNDOPLASTY W/ MESH (Abdomen) Alessandro Borden MD04/05/25 97961004/05/25 2124DcfhRclwXntstDjlnstr08/14/52722596 0737An StartI have re-evaluated the patient immediately prior to induction.0737 An Start Ymul2309Tq InductionI have re-evaluated the patient immediately prior to induction.0749An Pcayrdquhh3656Axhtnnkz Line sfjepi7198Himbxesxjb Vuqrk1673 Incision/Procedure Uccjx6102Ubwbd itounxihfbxj5076Xcdo Handoff Fabki7174Zpkx Handoff Fsdbn5855LagylCHC performed by surgical yoqq4587UzrseSpxyhqbpdkb monitor in close proximity to forced air warmer - moved deeper into axilla to obtain more accurate temperature (previous readings falsely high)1151Start Rlszwty8389 Procedure Mfp8711Unfryk5128Pg ExtubationPatient : Airway suctioned clear; following commands with adequate responsiveness; strength and spontaneous ventilation confirmed; stable mxbevmswrvbg1528ff stop rnwe6490InftaFe has a-fib with RVR on arrival to PACU. Staff anesthesilogist and PACU staff at the [place] Handoff to RNI completed my handoff to the receiving nurse during which we: 1. Identified the patient 2. Identified the responsible provider 3. Reviewed the pertinent medical history 4. Discussed the surgical course 5. Reviewed intra-op anesthesia management and issues during anesthesia 6. Set expectations for post- procedure period 7. Allowed opportunity for questions and acknowledgement of understanding. 8. Report also given to PACU kfqcp3321My Stop* NameTotal dexAMETHasone 4 mg/mL6 mgfentaNYL (PF)200 mcglidocaine (PF) 1%100 mg ondansetron (PF)4 jgxpbrasik732 ulxjzufakgno699 pffanekghdsxjqcbl209 mg ceFAZolin 2 g in dextrose (iso-osmotic) 50 mL (ANCEF,KEFZOL)4 gPHENYLephrine 10 mg/250 mL lyyzwmdq36,390 mcgdroperidol0.625 wrZIUBEZvugpduk798 mcgheparin 5,000 Units injection5,000 Unitsglycopyrrolate0.1 mgalbuterol HFA inhaler4 puffalbumin 5%750 hRjofvyrkcgc179 obqgpvshs66 yqAB292 eDSS573 mL * Agents Name ETO2 ETN2O Inspired N2O Set O2% MAC Case O2 Flow Rate Inspired Sevoflurane Sevoflurane * Blood No blood administrations on file. TrfkCgcjxekBmrjopfyhHgicexpIaqdy95/14/25; 0835; N; Surgical; Laparoscopy Sites-Zpwrmmo74/14/25 0835 by Debbie Daniel, RNPIV04/05/25; 0635; Short; Left; Hand; 20 Gauge; 04/06/25; 2121; Unplanned Nufqfjs05/14/25 0635 by Joelle Cifuentes, RN04/06/25 2121 by Aishwarya Barreto RNAirwayEndotracheal Tube; 04/05/25; 0749 (created via procedure documentation); 7 mm; Cuffed; No; 04/05/25; 46347806/05/24 0749 by Hoda Dowling, PAYROLL REPRESENTATIVE.CRNA04/05/25 1209 by Alessandro Borden, MDPIV04/05/25; 0752 (created via procedure documentation); Left; Antecubital; 16 Gauge; 04/06/25; 0735; Meets Criteria for Qzsnudp48/14/25 0752 by Hoda Dowling, PAYROLL REPRESENTATIVE.CRNA04/06/25 0735 by Echo Perales RNArterial Line/Fbulmb91/14/25; 0807 (created via procedure documentation); 20 Gauge; Right; Radial; 04/05/25; 24839206/05/24 0807 by Hoda Dowling, PAYROLL REPRESENTATIVE.VEGETABLE WORKER 04/05/25 1523 by Natividad Sexton, JHAsykh88/14/25; 0820; [facility] (Placed by Brad Melgar. Nazia peng); Mikki; 16 Fr; 04/06/25; 0953; Order 04/05/25 0820 by Debbie Daniel, RN04/06/25 0953 by Trenton Ledezma PCNA documented in this encounter Social History Tobacco UseTypesPacks/DayYears UsedDateSmoking Tobacco: FormerCigarettesPassive Smoke Exposure: NeverSmokeless Tobacco: NeverAlcohol UseStandard Drinks/Week CommentsNever0 (1 standard drink = 0.6 oz pure alcohol)Area Deprivation Index AnswerDate RecordedNational Score (1-100), lower number is lower risk75 02/21/2025State Score (1-10), lower number is lower yydr681Data from: https://www.neighborhoodatlas.[facility]/. Last address used for beujlqlxxpm[address]02/21/2025CommentsNoSex and Gender Information ValueDate RecordedSex Assigned at BirthNot on fileLegal FkaVlurey75/02/2012 9:17 AM ESTGender IdentityNot on fileSexual OrientationNot on filedocumented as of this encounter Last Filed Vital Signs Vital SignReadingTime TakenCommentsBlood Xntyahkw990/6104/05/2025 12:15 PM EST Siidx74520/14/2025 12:32 PM ESTTemperature--Respiratory Rate--Oxygen Saturation 97%04/05/2025 12:18 PM ESTInhaled Oxygen Concentration--Weight--Height--Body Mass Index--documented in this encounter Procedure Notes * Alessandro Borden MD - 04/05/2025 2:24 PM EST POST ANESTHESIA EVALUATION NOTE : 1955 Procedure Summary Date: 04/05/25 Room / Location: [address] [facility] Anesthesia Start: 736 Anesthesia Stop: 124 Procedure: LAPAROSCOPIC RPR PARAESOPHAGEAL HERNIA W/O FUNDOPLASTY W/ MESH (Abdomen) Diagnosis: Preoperative examination Hiatal hernia (Preoperative examination [Z01.818]) (Hiatal hernia [K44.9]) Surgeons: Joo Bobo Responsible Provider: Alessandro Borden MD Anesthesia Type: general ASA Status: 3 Anesthesia Type: general Airway Type: ETT Last Vitals Vitals Value Taken Time Arterial BP 1 138/68 04/05/25 14:22 Temp 36.2 ??C (97.2 ??F) 04/05/25 12:55 Pulse 122 04/05/25 14:22 Resp 14 11/14/25 14:22 SpO2 94 % 04/05/25 14:22 Vitals shown include unfiled device data. Post Anesthesia Patient Status Patient Evaluation: PACU. PACU/ICU Patient Condition: stable. Anticipated Disposition: inpatient floor planned admission. Neurological Status: aware and responsive. Pulmonary Status: breathing comfortably on supplemental oxygen Airway Control: returned to baseline unsupported. Cardiovascular Status: stable. Pain Management: clinically adequate Postoperative Hydration: acceptable. Intraoperative Events: no significant anesthesia events Post Operative Nausea/Vomiting Status: no significant post operative nausea or vomiting Recommendation: continue current plan of care. Other Remarks: Shortly upon arrival to the PACU patient was noted to be in Afib with RVR (rates 140-160s) with stable BP confirmed with EKG. Labs wnl, CXR unremarkable, cardiology consulted. Rate controlled with beta michelle. Converted to NSR with diltiazem. No history per patient or chart of atrial fibrillation . Anesthesia Observations Atrial fibrilation Documented by Alessandro Borden MD 04/05/2025 2:24 PM EST Outcome: Resolved Out of Room Phase: Postprocedure, before discharge Comment: Stable Atrial fibrillation with RVR in PACU - resolved with metoprolol and diltiazem SIGNATURE: Alessandro Borden MD PATIENT NAME: Mary Vick DATE: April 05, 2025 TIME: 2:24 PM CSN: [id number] * Hoda Dowling APRN.CRNA - 04/05/2025 8:47 AM ESTAssociated Order(s): A-Line ANESTHESIOLOGY PROCEDURE NOTE A-Line General Information Procedure Start Time/Medication Administration: 04/05/2025 8:07 AM Procedure End Time: 04/05/2025 8:09 AM Patient location during procedure: OR Timeout Performed Pre-procedure: timeout performed Indications: continuous blood pressure monitoring and blood sampling needed Staffing VEGETABLE WORKER: Hoda Dowling APRN.VEGETABLE WORKER Performed by: SANDRITA Preparation Sterility Preparation: hand hygiene performed prior to procedure, sterile gloves, drapes, and procedure tray, surgical cap used, mask used, sterile drape used during line insertion, skin prep agent completely dried prior to procedure Sterility Technique Not Completely Performed Due to Extreme Emergency: No Site Prep: Chloraprep Procedure Details Catheter Size: 20 G Micropuncture Kit Used: No Guidewire Used: Yes Guidewire Removed Intact: Yes Laterality: right Site: radial artery Ultrasound Guided: Yes Image in Chart: No Sites: potential access sites evaluated, selected vessel patent, concurrent real time ultrasound visualization of vascular needle entry Vessel: target vessel identified and guidewire advanced into vessel Line Secured: tape and Tegaderm Events Events: patient tolerated procedure well with no complications SIGNATURE: Hoda Dowling APRN.CRNA PATIENT NAME: Mary Vick DATE: April 05, 2025 TIME: 8:47 AM CSN: [id number] * Hoda Dowling APRN.CRNA - 04/05/2025 8:46 AM ESTAssociated Order(s): PIV ANESTHESIOLOGY PROCEDURE NOTE PIV General Information Procedure Start Time/Medication Administration: 04/05/2025 7:52 AM Procedure End Time: 04/05/2025 7:52 AM Patient Location: OR Staffing Anesthesiologist: Alessandro Borden MD Performed by: anesthesiologist Preparation Sterility Preparation: hand hygiene performed prior to procedure, surgical cap used, mask used, skin prep agent completely dried prior to procedure Sterility Technique Not Completely Performed Due to Extreme Emergency: No Site Prep: alcohol Procedure Details Indication: need for IV access Needle Size/Type: 16 gauge angiocath Orientation: Left Location: Antecubital Imaging Guidance Used: No SIGNATURE: Hoda Dowling APRN.CRNA PATIENT NAME: Mary Vick DATE: April 05, 2025 TIME: 8:46 AM CSN: [id number] * Hoda Dowling APRN.CRNA - 04/05/2025 8:44 AM ESTAssociated Order(s): Airway ANESTHESIOLOGY PROCEDURE NOTE Airway General Information Procedure Start Time/Medication Administration: 04/05/2025 7:49 AM Procedure End Time: 04/05/2025 7:50 AM Patient location during procedure: OR Timeout Performed Pre-procedure: timeout performed Consent Obtained: Yes Patient identity confirmed: arm band Staffing Anesthesiologist: Alessandro Borden MD VEGETABLE WORKER: Hoda Dowling APRN.VEGETABLE WORKER Performed by: anesthesiologist and VEGETABLE WORKER Indications and Patient Condition Indications for airway management: anesthesia Preoxygenated: yes anesthesia circuit Patient position: sniffing Method: rapid sequence Cricoid Pressure: Yes Manual In-Line Stabilization: No Difficult Mask: No Final Airway Details Final airway type: endotracheal airwayFinal Endotracheal Airway: ETT Cuffed: yes Successful intubation technique: video laryngoscopy Devices used: [employer] [place] Cryotherapy Endotracheal tube insertion site: oral Blade: Nino Blade size: #3 ETT size (mm): 7.0 Measured from: lips Measurement (cm): 22 Placement verified by: capnometry Cormack-Lehane Classification: grade I - full view of glottis Number of attempts at approach: 1 Failed airway: no Unrecognized esophageal intubation: no Airway not difficult SIGNATURE: Hoda Dowling APRN.VEGETABLE WORKER PATIENT NAME: Mary Vick DATE: April 05, 2025 TIME: 8:44 AM CSN: [id number] * Alessandro Borden MD - 04/05/2025 7:19 AM EST ANESTHESIOLOGY DAY OF SURGERY NOTE : 1955 Procedure Information Date/Time: 04/05/25 5030 Procedure: LAPAROSCOPIC RPR PARAESOPHAGEAL HERNIA W/O FUNDOPLASTY W/ MESH (Abdomen) [facility] Surgeons: Joo Bobo Estimated body mass index is 32.95 kg/m?? as calculated from the following: Height as of 03/26/25: 154.9 cm (5' 1 ). Weight as of 03/26/25: 79.1 kg (174 lb 6.1 oz). Most recent hematocrit and potassium results: Hematocrit 41.2 04/03/2025 Potassium 4.8 03/26/2025 Relevant Problems ANESTHESIA (+) PONV (postoperative nausea and vomiting) CARDIO (+) CHF (congestive heart failure) (HCC) GI (+) Gastroesophageal reflux disease (+) Paraesophageal hernia -RENAL (+) Chronic renal insufficiency I - PHYSICAL EVALUATION AIRWAY Patient intubated: No. Tracheostomy tube not present Mallampati: III. TM distance: >3 FB. Neck ROM: full ROM without neurological symptoms. Mouth openin FB. Short neck: yes. Thick neck: yes Thompson present: no DENTAL Dental findings: edentulous. II - ANESTHESIA PLAN ASA Score: 3 Anesthetic Plan: general Airway type: ETT NPO Status: adequate Anesthetic plan additional comments: Large symptomatic hiatal hernia causing Shortness of Breath and mild reflux. Plan for RSI Arterial line given size of hernia and need to enter chest cavity No need for lung isolation per surgeon . Monitoring Plan Monitoring plan: standard ASA and invasive hemodynamic monitoring. Monitoring method: arterial Line Post Procedure Analgesic Plan Postoperative analgesic plan: multimodal analgesia and parenteral or oral opioids. Informed Consent Anesthetic risks, benefits, alternatives, personnel and consent discussed: yes. Patient / Responsible Republican agrees to proceed: yes Patient / Surrogate agrees to blood products: Yes Potential Anesthesia issues that may suggest increased risk of complications or contraindication toplanned procedure: none. Vitals Value Taken Time BP 118/57 04/05/25 06:35 Pulse 76 04/05/25 06:35 Resp 16 04/05/25 06:35 Temp 36.3 ??C (97.3 ??F) 04/05/25 06:35 SpO2 99 % 04/05/25 06:35 Facility-Administered Medications as of 04/05/2025 Medication Dose Route Frequency dextrose 10% iv bolus 12.5 g INTRAVENOUS PRN Or glucagon 0.5-1 mg injection 0.5-1 mg INTRAMUSCULAR PRN lidocaine (PF) 10 mg/mL (1 %) 1-2 mg injection (XYLOCAINE) 0.1-0.2 mL INTRADERMAL PRN Or lidocaine 1% 0.25 mL subcutaneous j-tip syringe (XYLOCAINE) 0.25 mL SUBCUTANEOUS PRN lactated ringers iv infusion 5-30 mL/hr INTRAVENOUS CONTINUOUS NaCl 0.9% iv flush bag 20 mL INTRAVENOUS PRN heparin 5,000 Units injection 5,000 Units SUBCUTANEOUS ONCE ceFAZolin 2 g in dextrose (iso-osmotic) 50 mL (ANCEF,KEFZOL) 2 g INTRAVENOUS Pre-Op Once [COMPLETED] acetaminophen 1,000 mg tab(s) (TYLENOL) 1,000 mg ORAL ONCE albuterol 2.5 mg /3 mL (0.083 %) 2.5 mg (PROVENTIL) 2.5 mg INHALATION ONCE [COMPLETED] famotidine 20 mg injection (PEPCID) 20 mg INTRAVENOUS ONCE scopolamine (delivers 1 mg over 3 days) 1 patch (TRANSDERM-SCOP) 1 patch TRANSDERMAL q 72 HR And [START ON 04/08/2025] scopolamine - REMOVE PATCH OTHER q 72 HR And scopolamine - VERIFY patch OTHER q 8 H Outpatient Medications as of 04/05/2025 Medication Sig amitriptyline (ELAVIL) 50 mg tablet Take 50 mg by mouth daily at bedtime. furosemide (LASIX) 20 mg tablet Take 20 mg by mouth two times a day. ALBUTEROL INHALATION Inhale as instructed. mqgwdavxym-eixsqrsh-fckrnhdmwm (BREZTRI AEROSPHERE) 160-9-4.8 mcg/actuation HFA aerosol inhaler Inhale 2 puffs as instructed two times a day. ARIPiprazole (ABILIFY) 30 mg tablet Take 30 mg by mouth once daily. FLUoxetine (PROZAC) 20 mg capsule Take 20 mg by mouth once daily. levothyroxine 50 mcg cap Take 50 mcg by mouth daily before breakfast. lisinopril (ZESTRIL) 40 mg tablet Take 40 mg by mouth once daily. OMEPRAZOLE, BULK, MISC POTASSIUM CHLORIDE 2.5 MEQ TAB ropinirole HCl (ROPINIROLE PO) Take by mouth. dapagliflozin propanediol (FARXIGA) 10 mg tablet Take by mouth daily with breakfast. amoxicillin-clavulanate potassium (AUGMENTIN) 875-125 mg per tablet Take 1 tablet by mouth two times a day. (Patient not taking: Reported on 03/26/2025) phenazopyridine (PYRIDIUM) 200 mg tablet Take 200 mg by mouth three times a day as needed. (Patientnot taking: Reported on 03/26/2025) busPIRone (BUSPAR) 10 mg tablet Take 10 mg by mouth three times a day. (Patient not taking: Reported on 03/26/2025) diclofenac-miSOPROStol (ARTHROTEC) 50-200 mg-mcg per tablet Take 1 tablet by mouth two times a day.(Patient not taking: Reported on 03/26/2025) I have interviewed and examined the patient. I have reviewed the medical record and/or the pre-anesthesia evaluation, pertinent labs, and test results. This contains updated information obtained within 48 hours of Surgery/Procedure. SIGNATURE: Alessandro Borden MD PATIENT NAME: Mary Vick DATE: April 05, 2025 TIME: 7:19 AM CSN: [id number] documented in this encounter Plan of Treatment DateTypeDepartmentCare Team (Latest Contact Info)Ahlmnsjztxi19/03/2025 11:30 AM ESTOffice Visit General Surgery [address] [phone] Sarai Ramos APRN.[facility] [address] [address] Post opdocumented as of this encounter Procedures Procedure NamePriorityDate/TimeAssociated DiagnosisCommentsARTL CATHJ/CANNULJ MNTR/TRANSFUSION SPX VZNKjxiada30/14/2025 8:07 AM EST PERIPHERAL IV UWIYSFSJDAmzwhbt94/14/2025 7:52 AM EST BLTZPGRUUWIbnwwtu69/14/2025 7:49 AM EST documented in this encounter Results * ARTL CATHJ/CANNULJ MNTR/TRANSFUSION SPX PRQ (04/05/2025 8:07 AM EST) Narrative Hoda Dowling APRN.VEGETABLE WORKER - 04/05/2025 8:07 AM EST Hoda Dowling APRN.VEGETABLE WORKER 04/05/2025 8:48 AM A-Line General Information Procedure Start Time/Medication Administration: 04/05/2025 8:07 AM Procedure End Time: 04/05/2025 8:09 AM Patient location during procedure: OR Timeout Performed Pre-procedure: timeout performed Indications: continuous blood pressure monitoring and blood sampling needed Staffing VEGETABLE WORKER: Hoda Dowling APRN.VEGETABLE WORKER Performed by: VEGETABLE WORKER Preparation Sterility Preparation: hand hygiene performed prior to procedure, sterile gloves, drapes, and procedure tray, surgical cap used, mask used, sterile drape used during line insertion, skin prep agent completely dried prior to procedure ?? Sterility Technique Not Completely Performed Due to Extreme Emergency: No ?? Site Prep: Chloraprep Procedure Details Catheter Size: 20 G Micropuncture Kit Used: No Guidewire Used: Yes Guidewire Removed Intact: Yes Laterality: right Site: radial artery Ultrasound Guided: Yes Image in Chart: No Sites: potential access sites evaluated, selected vessel patent, concurrent real time ultrasound visualization of vascular needle entry Vessel: target vessel identified and guidewire advanced into vessel Line Secured: tape and Tegaderm Events Events: patient tolerated procedure well with no complications Authorizing ProviderResult TypeResnicholas DELGADO ORDERABLESFinal Result * PERIPHERAL IV PLACEMENT (04/05/2025 7:52 AM EST) Narrative Hoda Dowling APRN.VEGETABLE WORKER - 04/05/2025 7:52 AM EST Hoda Dowling APRN.CRNA 04/05/2025 8:47 AM PIV General Information Procedure Start Time/Medication Administration: 04/05/2025 7:52 AM Procedure End Time: 04/05/2025 7:52 AM Patient Location: ??OR Staffing Anesthesiologist: Alessandro Borden MD Performed by: anesthesiologist Preparation Sterility Preparation: hand hygiene performed prior to procedure, surgical cap used, mask used, skin prep agent completely dried prior to procedure ?? Sterility Technique Not Completely Performed Due to Extreme Emergency: No ?? Site Prep: alcohol Procedure Details Indication: need for IV access Needle Size/Type: 16 gauge angiocath Orientation: ??Left Location: ??Antecubital Imaging Guidance Used: ??No Authorizing ProviderResult Carter ROSASTHESIA ORDERABLESFinal Result * Airway (04/05/2025 7:49 AM EST) Hoda Nayak APRN.VEGETABLE WORKER - 04/05/2025 7:49 AM EST Hoda Dowling APRN.CRNA 04/05/2025 8:46 AM Airway General Information Procedure Start Time/Medication Administration: 04/05/2025 7:49 AM Procedure End Time: 04/05/2025 7:50 AM Patient location during procedure: OR Timeout Performed Pre-procedure: timeout performed Consent Obtained: Yes Patient identity confirmed: arm band Staffing Anesthesiologist: Alessandro Borden MD VEGETABLE WORKER: Hoda Dowling APRN.VEGETABLE WORKER Performed by: anesthesiologist and VEGETABLE WORKER Indications and Patient Condition Indications for airway management: anesthesia Preoxygenated: yes ? anesthesia circuit Patient position: sniffing Method: rapid sequence Cricoid Pressure: Yes Manual In-Line Stabilization: No Difficult Mask: No Final Airway Details Final airway type: endotracheal airwayFinal Endotracheal Airway: ETT Cuffed: yes Successful intubation technique: video laryngoscopy Devices used: [place] Cryotherapy Endotracheal tube insertion site: oral Blade: Nino Blade size: #3 ETT size (mm): 7.0 Measured from: lips Measurement (cm): 22 Placement verified by: capnometry Cormack-Lehane Classification: grade I - full view of glottis Number of attempts at approach: 1 Failed airway: no Unrecognized esophageal intubation: no Airway not difficult Authorizing ProviderResult TypeResult StatusBrrufino Borden MDANESTHESIA ORDERABLESFinal Result documented in this encounter Visit Diagnoses Not on filedocumented in this encounter Administered Medications Medication OrderMAR ActionAction DateDoseRateSite albumin (5%) infusion INTRAVENOUS, NEEDED, Starting on Tue04/05/25 at 0858, Until Tue04/05/25 at 1247, Anesthesia Intraprocedure Given04/05/2025 10:25 AM USB713 gJOtjxq4404/05/2025 9:10 AM WKL623 mLGiven 04/05/2025 8:58 AM RRF220 mL albuterol HFA 90 mcg/actuation (PROVENTIL HFA, VENTOLIN HFA) INHALATION, NEEDED, Starting on Tue04/05/25 at 0738, Until Tue04/05/25 at 1247, Anesthesia Intraprocedure Given04/05/2025 7:38 AM EST4 puffs ceFAZolin 2 g in dextrose (iso-osmotic) 50 mL (ANCEF,KEFZOL) 2 g, INTRAVENOUS, at 100 mL/hr, Administer over 30 Minutes, PRE-OP ONCE, 1 dose, On Tue04/05/25 pk1256, General Cases PRE-OP ANTIBIOTIC ADMINISTER ONLY IN SURGICAL AREA ??? DO NOT ADMINSTER ON THE FLOOR CEDILLO product = Refrigerate. B. Quintanilla DUPLEX product = Room Temp., Antimicrobial indication: Prophylaxis, Preprocedure Given04/05/2025 11:52 AM EST2 iEibnh1004/05/2025 7:52 AM EST2 g dexAMETHasone sodium phosphate injection (DECADRON) INTRAVENOUS, NEEDED, Starting on Tue04/05/25 at 0822, Until Tue04/05/25 at 1247, Anesthesia Intraprocedure Given04/05/2025 8:22 AM EST6 mg droperidol injection (INAPSINE) INTRAVENOUS, NEEDED, Starting on Tue04/05/25 at 0825, Until Tue04/05/25 at 1247, Anesthesia Intraprocedure Given04/05/2025 8:25 AM EST0.625 mg esmolol injection (BREVIBLOC) INTRAVENOUS, NEEDED, Starting on Tue04/05/25 at 1232, Until Tue04/05/25 at 1247, Anesthesia Intraprocedure Given04/05/2025 12:32 PM EST20 mg fentaNYL 50 mcg/mL injection (SUBLIMAZE) INTRAVENOUS, NEEDED, Starting on Tue04/05/25 at 0748, Until Tue04/05/25 at 1247, Anesthesia Intraprocedure Given04/05/2025 12:40 PM EST50 mahZcspq17/14/2025 11:56 AM EST50 mcgGiven 04/05/2025 7:48 AM CCJ322 mcg glycopyrrolate injection (ROBINUL) INTRAVENOUS, NEEDED, Starting on Tue04/05/25 at 0836, Until Tue04/05/25 at 1247, Anesthesia Intraprocedure Given04/05/2025 8:36 AM EST0.1 mg heparin 5,000 Units injection 5,000 Units, SUBCUTANEOUS, ONCE, 1 dose, On Tue04/05/25 at 0630, SEND WITH PATIENT TO OR Day of Surgery Pre Op Order, Preprocedure Given04/05/2025 8:28 AM EST5,000 Units lactated ringers iv infusion INTRAVENOUS, X (ONE-STEP ONLY) CONTINUOUS PRN, Starting on Tue04/05/25 at 0737, Until Tue04/05/25at 1247, Anesthesia Intraprocedure New Bag/Syringe/Htqmbc7004/05/2025 7:37 AM EST lactated ringers iv infusion INTRAVENOUS, X (ONE-STEP ONLY) CONTINUOUS PRN, Starting on Tue04/05/25 at 0800, Until Tue04/05/25at 1247, Anesthesia Intraprocedure New Bag/Syringe/Clkvwp4904/05/2025 8:00 AM EST lidocaine (PF) 10 mg/mL (1 %) injection (XYLOCAINE) INTRAVENOUS, NEEDED, Starting on Tue04/05/25 at 0748, Until Tue04/05/25 at 1247, Anesthesia Intraprocedure Given04/05/2025 7:48 AM DFL319 mg ondansetron (PF) injection (ZOFRAN) INTRAVENOUS, NEEDED, Starting on Tue04/05/25 at 1154, Until Tue04/05/25 at 1247, Anesthesia Intraprocedure Given04/05/2025 11:54 AM EST4 mg PHENYLephrine injection syringe INTRAVENOUS, NEEDED, Starting on Tue04/05/25 at 0826, Until Tue04/05/25 at 1247, Anesthesia Intraprocedure Given04/05/2025 11:42 AM LNH776 qbjXryms80/14/2025 9:11 AM YYY809 mcgGiven 04/05/2025 8:59 AM PAC468 mcg PHENYLephrine iv infusion 10 mg in NaCl 0.9% 250 mL (CARLOS-SYNEPHRINE) INTRAVENOUS, X (ONE-STEP ONLY) CONTINUOUS PRN, Starting on Tue04/05/25 at 0824, Until Tue04/05/25at 1247, Anesthesia Intraprocedure Rate/Dose Vqvibx3104/05/2025 11:52 AM EST15 mcg/min22.5 mL/hrRate/Dose Change 04/05/2025 11:47 AM EST40 mcg/min60 mL/hrRate/Dose Vdslpy1604/05/2025 11:29 AM EST 20 mcg/min30 mL/hr propofol injection (DIPRIVAN) INTRAVENOUS, NEEDED, Starting on Tue04/05/25 at 0748, Until Tue04/05/25 at 1247, Anesthesia Intraprocedure Given04/05/2025 7:48 AM BVS204 mg rocuronium injection INTRAVENOUS, NEEDED, Starting on Tue04/05/25 at 0839, Until Tue04/05/25 at 1247, Anesthesia Intraprocedure Given04/05/2025 11:14 AM EST10 doVplsu6304/05/2025 10:37 AM EST10 mgGiven 04/05/2025 9:50 AM EST10 mg succinylcholine injection (QUELICIN) INTRAVENOUS, NEEDED, Starting on Tue04/05/25 at 0748, Until Tue04/05/25 at 1247, Anesthesia Intraprocedure Given04/05/2025 7:48 AM VRY611 mg sugammadex injection (BRIDION) INTRAVENOUS, NEEDED, Starting on Tue04/05/25 at 1202, Until Tue04/05/25 at 1247, Anesthesia Intraprocedure Given04/05/2025 12:04 PM ZNA969 hcZssre7904/05/2025 12:02 PM CRP763 mgdocumented in this encounter Care Teams Team MemberRelationsOroville HospitalpecialtyStart DateEnd Date Jose Burrell Jr. [facility]09/07/00 Sabrina Wilkinson MD [address] [place] [id number] Gastroenterology02/14/25documented as of this encounter
--- OUTSIDE RECORDS SUMMARY | 2025-04-16 09:15 | XMS_ITS | Encounter Summary ---
Author Organization [facility] Address [address] [place] [address] Care Team Providers Care Grants Administrator Name Role Phone Travis Townsend MD Primary Care Provider [phone] Reason for Visit * ReasonCommentsFollow-upHypertensionMigraineHyperlipidemiaPulmonary HypertensionSVTAtherosclerosis of aortaCongestive Heart Failure Encounter Details DateTypeDepartmentCare Team (Latest Contact Info)Qpwharfjpul67/25/2025 9:15 AM ESTOffice Visit [facility] [address] [place] [address] Kiel Stephens MD [address] [place] [address] Postoperative atrial fibrillation (CMS/HCC) (Primary Dx) Social History Tobacco UseTypesPacks/DayYears UsedDateSmoking Tobacco: FormerCigarettesQuit: 05/23/2019Smokeless Tobacco: NeverAlcohol UseStandard Drinks/WeekCommentsNever0 (1 standard drink = 0.6 oz pure alcohol)Humiliation, Afraid, Rape, and Kick questionnaireAnswerDate RecordedWithin the last year, have you been afraid of your partner or ex-partner?No03/16/2022Within the last year, have you been humiliated or emotionally abused in other ways by your partner or ex-partner?No 03/16/2022Within the last year, have you been kicked, hit, slapped, or otherwise physically hurt by your partner or ex-partner?No03/16/2022Within the last year, have you been raped or forced to have any kind of sexual activity by your part ner or ex-partner?No03/16/2022ocial Connection and Isolation PanelAnswerDate RecordedIn a typical week, how many times do you talk on the phone with family, friends, or neighbors?More than three times a week03/16/2022How often do you get together with friends or relatives?Twice a week03/16/2022How often do you attend congregational or catholic services?More than 4 times per year03/16/2022o you belong to any clubs or organizations such as congregational groups, unions, fraternal or athletic groups, or school groups?Yes03/16/2022How often do you attend meetings of the clubs or organizations you belong to?1 to 4 times per year03/16/2022re you , , , , never , or living with a partner?Nqemctl0103/16/2022UDIT-CAnswerDate RecordedFrequency of Alcohol ConsumptionNot on file03/16/2022Q2: How many drinks containing alcohol do you have on a typical day when you are drinking?Patient does not drink03/16/2022Q3: How often do you have six or more drinks on one occasion?Never03/16/2022verall Financial Resource Strain (CARDIA)AnswerDate RecordedHow hard is it for you to pay for the very basics like food, housing, medical care, and heating?Somewhat hard03/16/2022HQ-2AnswerDate RecordedPatient Health Questionnaire-2 Score0 03/16/2022[facility] [place] of Occupational Health - Occupational Stress QuestionnaireAnswerDate RecordedDo you feel stress - tense, restless, nervous, or anxious, or unable to sleep at night because yourmind is troubled all the time - these days?Not at all03/16/2022Exercise Vital SignAnswerDate RecordedOn average, how many days per week do you engage in moderate to strenuous exercise (like a brisk walk)?0 days03/16/2022n average, how many minutes do you engage in exercise at this level?0 min03/16/2022Hunger Vital SignAnswerDate Recorded Within the past 12 months, you worried that your food would run out before you got the money to buymore.Never true03/16/2022Within the past 12 months, the food you bought just didn't last and you didn't have money to get more.Never true 03/16/2022RAPARE - TransportationAnswerDate RecordedIn the past 12 months, has lack of transportation kept you from medical appointments or from getting medications?No03/16/2022In the past 12 months, has lack of transportation kept you from meetings, work, or from getting things needed for daily living?No 03/16/2022Housing Stability Vital SignAnswerDate RecordedIn the last 12 months, was there a time when you were not able to pay the mortgage or rent on time?No 03/16/2022Number of Places Lived in the Last YearNot on file03/16/2022In the last 12 months, was there a time when you did not have a steady place to sleep or slept in [facility] (including now)?No03/16/2022UT Safety & EnvironmentAnswer Date RecordedFear of Current or Ex-PartnerNot on file07/14/2023Emotionally AbusedNot on file07/14/2023hysically AbusedNot on file07/14/2023Sexually Abused Not on file07/14/2023hysically or Sexually AbusedNot on file07/14/2023 CommentsUnknownSex and Gender InformationValueDate RecordedSex Assigned at Exfvck0901/15/2025 10:25 AM EDTLegal ZnoMsnpxi19/29/2022 10:16 PM EDTGender WcylqejtLznjxi69/26/2025 10:25 AM EDTSexual OrientationHeterosexual or Straight 01/15/2025 10:25 AM EDTdocumented as of this encounter Last Filed Vital Signs Vital SignReadingTime TakenCommentsBlood Vrlccgzz977/7804/16/2025 9:41 AM EST Porce249404/16/2025 9:41 AM ESTTemperature--Respiratory Rate--Oxygen Kzvkzitaup03% 04/16/2025 9:41 AM ESTInhaled Oxygen Concentration--Cekcsi23.6 kg (171 lb) 04/16/2025 9:41 AM SKBTfwsjq167.5 cm (5' 2 )04/16/2025 9:41 AM ESTBody Mass Index31.28106/16/2024 9:41 AM ESTdocumented in this encounter Progress Notes * Kiel Stephens MD - 04/16/2025 9:15 AM EST Images from the original note were not included. [place] Electrophysiology Consult Note [place] Cardiology [facility] Reason for visit: Afib HPI: Mary Vick is a 69 y.o. year old with past medical history of hypertension, hypothyroidism who has previously been seen by in the past for arrhythmias. She previously had a Holter monitor placed which revealed SVT and some bradycardia arrhythmias. At that time she had endorsed lightheadedness and dizziness and had endorsed a history of excessive caffeinated beverage consumption which included coffee as well as energy drinks. There were no A-fib noted at that time. Dr. MERRITT had recommended avoiding trigger factors such as energy drinks and a subsequent stress test in November 2023 did not show any perfusion defects. hypertension, hypothyroidism who has previously been seen by in the past for arrhythmias. She previously had a Holter monitor placed which revealed SVT and some bradycardia arrhythmias. At that time she had endorsed lightheadedness and dizziness and had endorsed a history of excessive caffeinated beverage consumption which included coffee as well as energydrinks. There were no A-fib noted at that time. Dr. MERRITT had recommended avoiding trigger factors such as energy drinks and a subsequent stress test in November 2023 did not show any perfusion defects. Subsequently she had endorsed uncontrolled blood pressure for which her medications have been titrated and for shortness of breath repeat echocardiogram showed normal LV function with severe LA dilatation and RSVP of 35 mmHg. Patient is here today for a follow up appointment. Patient had a recent admission to [facility] for Hiatal surgery. While in the hospital patient has an episode of A-Fib. Patient has 14 day monitor on at this time. Patient states she is not feeling good due to the surgery and being unable to eat. Patient denies chest pain, racing heart/palpitations, Patient compains of SOB/DAI, fatigue PMH: Medical History[1] PSH: Surgical History[2] SH: Social Drivers of Health Tobacco Use: Medium Risk (04/16/2025) Patient History Smoking Tobacco Use: Former Smokeless Tobacco Use: Never Passive Exposure: Not on file Alcohol Use: Not At Risk (03/16/2022) AUDIT-C Frequency of Alcohol Consumption: Not on file Average Number of Drinks: Patient does not drink Frequency of Binge Drinking: Never Financial Resource Strain: Medium Risk (03/16/2022) Overall Financial Resource Strain (CARDIA) Difficulty of Paying Living Expenses: Somewhat hard Food Insecurity: No Food Insecurity (03/16/2022) Hunger Vital Sign Worried About Running Out of Food in the Last Year: Never true Ran Out of Food in the Last Year: Never true Transportation Needs: No Transportation Needs (03/16/2022) PRAPARE - Transportation Lack of Transportation (Medical): No Lack of Transportation (Non-Medical): No Physical Activity: Inactive (03/16/2022) Exercise Vital Sign Days of Exercise per Week: 0 days Minutes of Exercise per Session: 0 min Stress: No Stress Concern Present (03/16/2022) [place] of Occupational Health - Occupational Stress Questionnaire Feeling of Stress : Not at all Social Connections: Moderately Integrated (03/16/2022) Social Connection and Isolation Panel Frequency of Communication with Friends and Family: More than three times a week Frequency of Social Gatherings with Friends and Family: Twice a week Attends Faith Services: More than 4 times per year Active Member of Clubs or Organizations: Yes Attends Club or Organization Meetings: 1 to 4 times per year Marital Status: Intimate Partner Violence: Unknown (07/14/2023) [place] Safety & Environment Fear of Current or Ex-Partner: Not on file Emotionally Abused: Not on file Physically Abused: Not on file Sexually Abused: Not on file Physically or Sexually Abused: Not on file Depression: Not at risk (03/16/2022) PHQ-2 PHQ-2 Score: 0 Housing Stability: Unknown (03/16/2022) Housing Stability Vital Sign Unable to Pay for Housing in the Last Year: No Number of Places Lived in the Last Year: Not on file Unstable Housing in the Last Year: No Utilities: Not on file Health Literacy: Not on file Allergies: Allergies[3] Weight: 77.6kg Visit Vitals BP 112/78 (BP Location: Left arm, Patient Position: Sitting) Pulse 97 Ht 1.575 m (5' 2 ) Wt 77.6 kg (171 lb) SpO2 96% BMI 31.28 kg/m?? Smoking Status Former BSA 1.84 m?? Meds: Medications Ordered Prior to Encounter[4] ROS: Review of Systems Constitutional: Positive for malaise/fatigue. Cardiovascular: Positive for dyspnea on exertion. Respiratory: Positive for shortness of breath. Physical Exam: Constitutional General Appearance: well-nourished, well-developed, appears stated age Level of Distress: comfortable Eyes NICOLE Neck Neck: supple, trachea midline Carotid Arteries: bilateral normal upstroke, no bruits Jugular Veins: normal jugular venous pressure Thyroid: not enlarged Lungs Respiratory Effort: mildy labored on home oxygen Chest Exam: normal curvature, no thoracic deformity Auscultation: clear, rales+, no rhonchi Cardiovascular Chest wall: Rate And Rhythm: regular Heart Sounds: normal S1, normal s2, no gallop Systolic Murmur: not heard Diastolic Murmur: not heard Extremities: no cyanosis, no edema, no peripheral signs of emboli Peripheral Pulses Radial Pulse: normal Abdomen Inspection and Palpation: soft, non distended, no bruit, non tender Neurologic Gait: normal gait Labs: @LABRESULTS@ No results found for: CHOLESTEROL TOTAL , HDL , LDL CALC , LDL DIRECT , TRIGLYCERIDES , TSH , T3 TOTAL , T4 TOTAL , THYROID PEROXIDASE AB , BNP EKG: No results found for this or any previous visit (from the past 4464 hours). Echo: 04/08/25 @[facility] FINDINGS: LEFT VENTRICLE The left ventricle is [...] PERICARDIUM There is an epicardial fat pad. 11/28/24 Echocardiogram 10/2023 Global left ventricular systolic function is normal Mild concentric left ventricular hypertrophy Normal right ventricular size and systolic function Severe left atrial dilatation Trileaflet aortic valve with mild to moderate regurgitation and no stenosis Mildly elevated right-sided pressures; RVSP 35 mmHg Echocardiogram 07/06/2021: Global left ventricular systolic function is normal; EF is 67%. Grade 1 diastolic dysfunction. Mildaortic and tricuspid regurgitation. Normal right- sided pressures. Moderate left atrial dilatation. Stress test: 11/21/23 Coronary angiogram: @CATH@ CT CHEST @[facility] 04/07/25 IMPRESSION: Interval reduction of previously seen hiatal hernia with considerable amount of fluid and air in the posterior mediastinum which is likely postoperative in etiology. Short interval follow-up CT imaging suggested for reevaluation. Chronic interstitial lung disease possibly organizing pneumonia from drug reaction or prior infection. Left greater than right small dependent pleural effusions. CT Chest 01/21/25 Event monitor 10/04/2023: Predominant rhythm is sinus with average heart rate of 60 bpm Fastest heart rate of 192 bpm SVT and/rate of 43 bpm 31 PVCs No atrial fibrillation Episodes of bradycardia without obvious P waves consider junctional rhythm PFTs 09/2023 Impressions: -Mild restrictive pattern on spirometry not confirmed as TLC is normal. Isolated moderate diffusion impairment. Mild anemia present (Hb 9.2g/dL). When compared to prior testing, there isnot a significant roll changer the past 4 years. This pattern can be seen in, but not restricted to, cardiopulmonary vascular disorders, early interstitial lung disease, and early emphysema. Clinical correlation required. Assessment and Plan: - Postop atrial fibrillation -S/p hiatal hernia surgery at [facility] - Hypertension -HFpEF - Hyperlipidemia Patient is currently wearing an event monitor and I would recommend reviewing the results and make a decision about whether she should be placed on antiarrhythmic drugs such as a class Ic agent and also starting anticoagulants. Currently she is on home oxygen and I have encouraged her to focus on physical therapy with deep inspiration to avoid atelectasis and pneumonia. She can follow-up with cardiology after the tests are. Kiel Stephens MD Cardiac Electrophysiology [facility] [1] Past Medical History: Diagnosis Date Abnormal ECG COPD (chronic obstructive pulmonary disease) (CMS/HCC) HTN (hypertension) Sleep apnea [2] Past Surgical History: Procedure Laterality Date CARDIAC CATHETERIZATION HIATAL HERNIA REPAIR HYSTERECTOMY MANDIBLE SURGERY [3] Allergies Allergen Reactions Sumatriptan Other Tachycardia fainting [4] Current Outpatient Medications on File Prior to Visit Medication Sig Dispense Refill albuterol 2.5 mg /3 mL (0.083 %) nebulizer solution Take 2.5 mg by nebulization every 6 (six) hoursif needed. ARIPiprazole (Abilify) 20 mg tablet Take 30 mg by mouth in the morning. xpavdjkpjc-fpssajbx-hglkfzoktz (Breztri Aerosphere) 160-9-4.8 mcg/actuation HFA aerosol inhaler Inhale 2 puffs twice a day. busPIRone (Buspar) 10 mg tablet Take 1 tablet by mouth Twice daily at 6am and 6pm. dapagliflozin propanediol (Farxiga) 10 mg Take 1 tablet (10 mg) by mouth once daily as directed. 30tablet 11 FLUoxetine (PROzac) 20 mg tablet Take 1 tablet 4 times a day by oral route. furosemide (Lasix) 20 mg tablet Take 1 tablet (20 mg) by mouth in the morning. 90 tablet 3 levothyroxine (Synthroid, Levoxyl) 100 mcg tablet Take 50 mcg by mouth in the morning. lisinopril 40 mg tablet Take 1 tablet (40 mg) by mouth once daily as directed. 90 tablet 3 omeprazole (PriLOSEC) [address] capsule Take 10 mg by mouth before breakfast and before evening meal. potassium chloride CR (K-Tab) 20 mEq ER tablet Take 2 tablets now and 2 tablets this evening. Then take 2 tablets daily starting the following day. Call office for further refills. 180 tablet 0 rOPINIRole (Requip) 1 mg tablet 1 (one) time each day at the same time. spironolactone (Aldactone) 25 mg tablet Take 0.5 tablets (12.5 mg) by mouth in the morning. 15 tablet 11 amitriptyline (Elavil) 50 mg tablet Take 50 mg by mouth at bedtime. (Patient not taking: Reported on 04/16/2025) amLODIPine (Norvasc) 10 mg tablet Take 1 tablet every day by oral route with meals for 90 days. (Patient not taking: Reported on 04/16/2025) ARIPiprazole (Abilify) 30 mg tablet Take 30 mg by mouth in the morning. hzxjotpnnr-lcmijfltnxemq-rckk 50-325-40 mg tablet Take 1 tablet by mouth every 4 (four) hours. (Patient not taking: Reported on 04/16/2025) calcium carbonate-vitamin D3 500 mg-5 mcg (200 unit) tablet Take 1 tablet by mouth. (Patient not taking: Reported on 04/16/2025) diclofenac (Cataflam) 50 mg tablet Take 50 mg by mouth in the morning and at bedtime. (Patient not taking: Reported on 04/16/2025) ibuprofen 800 mg tablet Take 1 tablet by mouth every 6 (six) hours if needed. (Patient not taking: Reported on 04/16/2025) magnesium oxide (Mag-Ox) 400 mg (241.3 mg magnesium) tablet Take 2 tablets twice a day by oral route with meals for 90 days. (Patient not taking: Reported on 04/16/2025) methocarbamol (Robaxin) 750 mg tablet Take 750 mg by mouth four times daily. (Patient not taking: Reported on 04/16/2025) metoprolol succinate XL (Toprol-XL) 100 mg 24 hr tablet Take 100 mg by mouth in the morning. (Patient not taking: Reported on 04/16/2025) oxyCODONE-acetaminophen (Percocet) 5-325 mg tablet Take 1 tablet by mouth if needed each day. (Patient not taking: Reported on 04/16/2025) No current facility-administered medications on file prior to visit. documented in this encounter Plan of Treatment DateTypeDepartmentCare Team (Latest Contact Info)Qkeoaatuaul49/18/2025 1:20 PM ESTOffice Visit [facility] [address] [place] [id number] Araceli Shanks, ELECTRICAL ENGINEERING TEACHER [address] [place] [address] documented as of this encounter Visit Diagnoses Diagnosis Postoperative atrial fibrillation (CMS/HCC)- Primary documented in this encounter Care Teams Team MemberRelationshipSpecialtyStart DateEnd Travis Townsend MD [address] [facility] [address] [address] PCP - Lbszcuv09/25/22documented as of this encounter
[2025-04-18 22:36] VITALS: BP 117/71; PULSE 88; TEMP 36.5; O2SAT 98; BMI 33.4
--- NOTE | 2025-04-18 22:39 | ECG_ITS ---
[facility] Test Date: 2025-04-18 Pat Name: MELANIE TOMPKINS Department: Room: - Gender: Female Applied Psychology Chair: : [id number] Requested By: [id number] Order Number: [id number] Reading MD: EFFIE COOK M.D. Measurements Intervals [place] Rate: 80 P: 40 WI: 152 QRS: 54 QRSD: 88 T: 57 QT: 410 QTc: 445 Interpretive Statements [address] segment abnormality Abnormal ECG Compared to ECG 01/21/2025 14:23:[address] segment abnormality now present Electronically Signed On 04-19-2025 8:11:08 EST by EFFIE COOK M.D.
--- NOTE | 2025-04-18 22:48 | ED.GENADUL1 ---
HPI HPI - General Adult General Chief complaint: Shortness of Breath/Dyspnea Stated complaint: SOB Time Seen by Provider: 04/18/25 22:29 Source: patient Mode of arrival: walk-in Limitations: no limitations History of Present Illness HPI narrative: Patient is a 69-year-old female presenting to the emergency department for evaluation of chest pain. Patient states she is not having months of chest pain, however this chest pain worsened tonight. She states that the pain is worse with a deep breaths and affects both her lungs . She states she is approximately 2 weeks postop from a laparoscopic hiatal hernia repair at the [facility]. Postoperatively, she was treated for pneumonia and was discharged on 2 L of home O2. She does have a history of COPD, but does not typically get oxygen at baseline. She denies a history of DVT/PE. She denies any leg swelling. She states postoperatively she has been mobile and doing well. She is not on anticoagulation. She denies any hemoptysis. No fevers or chills. No abdominal pain, nausea, or vomiting. Related Data Home Medications ?Medication ?Instructions ?Recorded ?Confirmed aripiprazole 30 mg tablet (Abilify) 30 mg PO QDAY 10/21/22 04/19/25 ropinirole 1 mg tablet 1 mg PO QDAY PRN restless leg(s) 10/21/22 04/19/25 fluticasone fur. 100 mcg-umeclid 1 inh inhalation DAILY 04/12/24 10/25/24 62.5 mcg-vilant 25 mcg inhalat.powder (Trelegy Ellipta) omeprazole 20 mg capsule,delayed 20 mg PO BID 06/06/24 04/19/25 release buspirone 10 mg tablet 10 mg PO BID 01/16/25 04/19/25 fluoxetine 20 mg capsule (Prozac) 20 mg PO QID 01/16/25 04/19/25 lisinopril 40 mg tablet (Zestril) 40 mg PO DAILY 01/16/25 04/19/25 amitriptyline 50 mg tablet 50 mg PO BEDTIME 04/19/25 04/19/25 dapagliflozin propanediol 10 mg 10 mg PO DAILY 04/19/25 04/19/25 tablet (Farxiga) furosemide 20 mg tablet 20 mg PO Q12H 04/19/25 04/19/25 Previous Rx's ?Medication ?Instructions ?Recorded levothyroxine 50 mcg tablet 50 mcg PO QDAY #30 tabs 09/17/23 (Euthyrox) potassium chloride 20 mEq 20 meq PO DAILY #7 tabs 01/21/25 tablet,extended release Allergies Allergy/AdvReac Type Severity Reaction Status Date / Time sumatriptan (From Imitrex) Allergy Severe Palpitation Verified 04/18/25 22:45 s Opioid HPI Opioid Management Most Recent Opioid Data: Last Pain Scale 8 10/25/24, 09:59 Last Pain Intensity 7 06/06/24, 14:37 Last ORT Total Score 10 06/06/24, 13:35 Last ORT Risk Category High Risk 06/06/24, 13:35 Review of Systems ROS Status of ROS 10 or more systems reviewed and unremarkable except as noted in history and below [facility] Medical History Syncopal episodes ?R55 - Syncope and collapse (ICD-10) Pneumonia ?J18.9 - Pneumonia, unspecified organism (ICD-10) Restless leg ?G25.81 - Restless legs syndrome (ICD-10) Dyspnea on exertion ?R06.09 - Other forms of dyspnea (ICD-10) Bilateral pulmonary contusion ?S27.322A - Contusion of lung, bilateral, initial encounter (ICD-10) Closed rib fracture ?S22.39XA - Fracture of one rib, unspecified side, initial encounter for closed fracture (ICD-10) Fall ?W19.XXXA - Unspecified fall, initial encounter (ICD-10) Chin contusion ?S00.83XA - Contusion of other part of head, initial encounter (ICD-10) Laceration of lip ?S01.511A - Laceration without foreign body of lip, initial encounter (ICD-10) Fracture of wrist ?S62.109A - Fracture of unspecified carpal bone, unspecified wrist, initial encounter for closed fracture (ICD-10) Macular degeneration ?H35.30 - Unspecified macular degeneration (ICD-10) Seasonal allergies ?J30.2 - Other seasonal allergic rhinitis (ICD-10) Anemia ?D64.9 - Anemia, unspecified (ICD-10) Lumbar radiculopathy ?M54.16 - Radiculopathy, lumbar region (ICD-10) Muscle spasm ?M62.838 - Other muscle spasm (ICD-10) Lumbar spondylosis ?M47.816 - Spondylosis without myelopathy or radiculopathy, lumbar region (ICD-10) Thoracic spondylosis ?M47.814 - Spondylosis without myelopathy or radiculopathy, thoracic region (ICD-10) Bilateral sacroiliitis ?M46.1 - Sacroiliitis, not elsewhere classified (ICD-10) Chronic, continuous use of opioids ?F11.90 - Opioid use, unspecified, uncomplicated (ICD-10) Greater trochanteric bursitis of both hips ?M70.61 - Trochanteric bursitis, right hip (ICD-10) ?M70.62 - Trochanteric bursitis, left hip (ICD-10) Encounter for long-term opiate analgesic use ?Z79.891 - vapor coater (current) use of opiate analgesic (ICD-10) Bilateral primary osteoarthritis of knee ?M17.0 - Bilateral primary osteoarthritis of knee (ICD-10) Acute opioid intoxication ?F11.929 - Opioid use, unspecified with intoxication, unspecified (ICD-10) Tubal ligation evaluation ?Z01.818 - Encounter for other preprocedural examination (ICD-10) Colonoscopy planned Headache, migraine ?G43.909 - Migraine, unspecified, not intractable, without status migrainosus (ICD-10) SVT (supraventricular tachycardia) ?I47.10 - Supraventricular tachycardia, unspecified (ICD-10) Screening for colorectal cancer ?Z12.11 - Encounter for screening for malignant neoplasm of colon (ICD-10) ?Z12.12 - Encounter for screening for malignant neoplasm of rectum (ICD-10) COPD (chronic obstructive pulmonary disease) ?J44.9 - Chronic obstructive pulmonary disease, unspecified (ICD-10) Migraine ?G43.909 - Migraine, unspecified, not intractable, without status migrainosus (ICD-10) Loud snoring ?R06.83 - Snoring (ICD-10) Osteoarthritis ?M19.90 - Unspecified osteoarthritis, unspecified site (ICD-10) Neck pain ?M54.2 - Cervicalgia (ICD-10) Bipolar 1 disorder ?F31.9 - Bipolar disorder, unspecified (ICD-10) Hearing deficit ?H91.90 - Unspecified hearing loss, unspecified ear (ICD-10) Anxiety ?F41.9 - Anxiety disorder, unspecified (ICD-10) Acid reflux ?K21.9 - Gastro-esophageal reflux disease without esophagitis (ICD-10) Obesity ?E66.9 - Obesity, unspecified (ICD-10) Hypothyroid ?E03.9 - Hypothyroidism, unspecified (ICD-10) Pulmonary hypertension ?I27.20 - Pulmonary hypertension, unspecified (ICD-10) Sleep apnea ?G47.30 - Sleep apnea, unspecified (ICD-10) High cholesterol ?E78.00 - Pure hypercholesterolemia, unspecified (ICD-10) Hypertension ?I10 - Essential (primary) hypertension (ICD-10) Surgical History History of colonoscopy ?Z98.890 - Other specified postprocedural states (ICD-10) H/O bilateral salpingo-oophorectomy ?Z90.79 - Acquired absence of other genital organ(s) (ICD-10) ?Z90.722 - Acquired absence of ovaries, bilateral (ICD-10) H/O dilation and curettage ?Z98.890 - Other specified postprocedural states (ICD-10) Cataract extraction status ?Z98.49 - Cataract extraction status, unspecified eye (ICD-10) H/O blepharoplasty ?Z98.890 - Other specified postprocedural states (ICD-10) History of mandibular surgery ?Z98.890 - Other specified postprocedural states (ICD-10) Hx of tubal ligation ?Z98.51 - Tubal ligation status (ICD-10) History of appendectomy ?Z90.49 - Acquired absence of other specified parts of digestive tract (ICD-10) History of hysterectomy ?Z90.710 - Acquired absence of both cervix and uterus (ICD-10) Family History Mother Family history of cancer Sister Family history of cancer Other Delayed recovery from anesthesia Family history of breast cancer Family history of lung cancer Social History Within the past year, how often did you have a drink containing alcohol: never Score interpretation: A score less than 3 is consistent with normal alcohol consumption. Smoking status: Former smoker Non-prescribed substance use: denies use Previous occupational history: [employer] Highest level of school completed/degree received: 11th grade Are you now , , , , never or living with a partner: In a typical week, how many times do you talk on the telephone with family, friends, or neighbors: 3 or more times per week How often do you get together with friends or relatives: 3 or more times per week How often do you attend restorationist or confucianist services: 4 or more times per year Do you belong to any clubs or organizations such as restorationist groups unions, [employer] or athletic groups, or school groups: no Total score: 2 Score interpretation: A score of greater than or equal to 2 indicates the lowest level of social isolation. Little interest or pleasure in doing things: not at all Feeling down, depressed, or hopeless: not at all Feel stressed/tense/nervous/anxious/difficulty sleeping: not at all Do you think of yourself as: straight/heterosexual Gender Identity: female Exam Narrative Exam Narrative: CONSTITUTIONAL: Well-appearing, speaking in full sentences, answering questions and following commands appropriately SKIN: Was warm and dry. EYES: Sclerae white. EARS, NOSE, THROAT: Moist oral mucosa. RESPIRATORY: Clear to auscultation bilaterally, no wheezes, crackles, or stridor, no use of accessory muscles CARDIOVASCULAR: Normal rate and regular rhythm. There is no S3, S4, murmur, rub. GASTROINTESTINAL: Abdomen is soft, nontender, nondistended. Surgical incisions are clean/dry/intact without erythema, tenderness, drainage, dehiscence, or evidence of infection. MUSCULOSKELETAL: No peripheral edema. Significant kyphosis of the thoracic spine. NEUROLOGIC: Patient is awake and alert. Facies were symmetrical. Constitutional Vital Signs, click to edit/add: Last Vital Signs Temp 97.7 F 04/18/25 22:36 Pulse 88 04/18/25 22:36 Resp 22 H 04/18/25 22:36 BP 117/71 04/18/25 22:36 Pulse Ox 95 04/18/25 23:39 O2 Del Method Room Air 04/18/25 23:39 O2 Flow Rate 2 04/18/25 22:36 Course Vital Signs Vital signs: Vital Signs Temperature 97.7 F 04/18/25 22:36 Pulse Rate 88 04/18/25 22:36 Respiratory Rate 22 H 04/18/25 22:36 Blood Pressure 117/71 04/18/25 22:36 Pulse Oximetry 98 04/18/25 22:36 Oxygen Delivery Method Nasal Cannula 04/18/25 22:36 Oxygen Delivery Flow Rate 2 04/18/25 22:36 Temperature 97.7 F 04/18/25 22:36 Pulse Rate 88 04/18/25 22:36 Respiratory Rate 22 H 04/18/25 22:36 Blood Pressure 117/71 04/18/25 22:36 Pulse Oximetry 95 04/18/25 23:39 Oxygen Delivery Method Room Air 04/18/25 23:39 Oxygen Delivery Flow Rate 2 04/18/25 22:36 Medical Decision Making MDM Narrative Medical decision making narrative: Patient is a 69-year-old female presenting to the emergency department with a few months of pleuritic chest pain that seem to have worsened tonight. Of note, she is 14 days postop from a laparoscopic hiatal hernia repair and was recently treated for pneumonia. Her last dose of Augmentin was 2 days ago. Vital signs on arrival are significant for mild tachypnea, otherwise were within normal limits. She is saturating 98% on her home oxygen requirement of 2 L nasal cannula. Examination as noted above. Differential diagnosis includes ACS, pneumothorax, postoperative complication such as infection, pleural effusions, PE, or other electrolyte/metabolic derangement. I did consider COPD exacerbation, however she is not wheezing on exam. IV was established and laboratory studies were obtained. CT angiogram of the thorax was ordered. CT thorax independent reviewed and interpreted by myself and radiology demonstrated no evidence of PE. There is chronic interstitial markings with interlobar septal thickening and bilateral trace pleural effusions, likely represent changes of volume overload/pulmonary edema, however possibly if diffuse infectious process not excluded. Cardiomegaly. Large hiatal hernia. 12 Lead EKG: Normal sinus rhythm at a rate of 80. Normal axis. No ST segment elevations. QRS, IL, and QTc interval within normal limits. Final impression: normal sinus rhythm without evidence of acute myocardial ischemia Laboratory studies were unremarkable. Mild hyponatremia and hypochloremia, may be a diluted sample. No evidence of acute kidney injury. No significant anemia or leukocytosis. No transaminitis or hyperbilirubinemia. Troponin nonelevated. On reevaluation, the patient is resting comfortably in the stretcher. She is in no respiratory distress and is saturating 98% on 2 L nasal cannula, which she was discharged with from her recent hospital stay. Though the CT demonstrated possible infectious process, she has no fevers, respiratory symptoms, or increase in her baseline oxygen requirement to suggest resistant pneumonia. Imaging findings are likely residual from her recent diagnosis of pneumonia. Though there is a large hiatal hernia on CT, compared to CT from January 2025, this is significantly improved. I have low concern for serious complication related to her recent surgery. Though the exact etiology to explain the patient's symptoms is unclear, I cannot identify an acute, emergent process that would require hospitalization. She has an appointment with her surgeon in 5 days for postoperative checkup, which I instructed her to maintain. Return precautions were given including any new or concerning symptoms. Patient understands and agrees to the plan. FINAL IMPRESSION: #Acute chest pain #History of recent hiatal hernia repair DISPOSITION: Discharged home CONDITION: Good Medical Records Medical records reviewed: Yes I reviewed the patient's medical records Lab Data Lab results reviewed: Yes I reviewed the patient's lab results Labs: Lab Results 04/18/25 Range/Units 23:05 WBC 13.0 H (4.0-11.0) 10^3/uL RBC 4.38 (4.20-5.40) 10^6/uL Hgb 12.9 (12.0-16.0) g/dL Hct 38.6 (36.0-48.0) % MCV 88.1 (81.0-99.0) fL MCH 29.5 (26.7-34.0) pg MCHC 33.4 (29.9-35.2) g/dL RDW 18.2 H (11.0-15.0) % Plt Count 579 H (150-450) 10^3/uL MPV 10.2 (9.5-13.5) fL Neut % (Auto) 76.7 H (43.0-75.0) % Lymph % (Auto) 10.3 L (20.5-60.0) % Ogle % (Auto) 8.1 (1.7-12.0) % Eos % (Auto) 1.5 (0.9-7.0) % Baso % (Auto) 0.6 (0.2-2.0) % Neut # (Auto) 10.0 H (1.4-6.5) 10^3/uL Lymph # (Auto) 1.3 (1.2-3.8) 10^3/uL Ogle # (Auto) 1.1 H (0.3-0.8) 10^3/uL Eos # (Auto) 0.2 (0.0-0.7) 10^3/uL Baso # (Auto) 0.1 (0.0-0.1) 10^3/uL Abs Immat Gran (auto) 0.36 H (0.00-0.03) 10^3/uL Imm/Tot Granulo (auto) 2.8 H (0.0-0.5) % Sodium 130 L (136-145) mmol/L Potassium 4.6 (3.5-5.1) mmol/L Chloride 97 L (98-107) mmol/L Carbon Dioxide 23.6 (21.0-32.0) mmol/L Anion Gap 14.0 BUN 23.0 H (7.0-18.0) mg/dL Creatinine 1.10 H (0.55-1.02) mg/dL Est GFR ( Amer) 59 L (>=60 mL/min/1.73m^2) Est GFR (Non-Af Amer) 49 L (>=60 mL/min/1.73m^2) BUN/Creatinine Ratio 20.9 Glucose 117 H (74-106) mg/dL Calcium 9.6 (8.5-10.1) mg/dL Total Bilirubin 0.4 (0.2-1.0) mg/dL AST 29 (15-37) U/L ALT 34 (14-59) U/L Alkaline Phosphatase 98 (46-116) U/L Troponin I High Sens 10.4 (4.0-51.3) pg/mL Total Protein 7.4 (6.4-8.2) g/dL Albumin 3.1 L (3.4-5.0) g/dL Globulin 4.3 g/dL Albumin/Globulin Ratio 0.[address] scan - chest: Attestation: I personally reviewed and interpreted this imaging study as follows: ECG Data Attestation: I personally reviewed and interpreted this ECG as follows: Discharge Plan Discharge Chief Complaint: Shortness of Breath/Dyspnea Clinical Impression: Chest pain, pleuritic Patient Disposition: Home, Self-Care Time of Disposition Decision: 00:36 Condition: Good Mode of Transportation: Private Vehicle Prescriptions / Home Meds: No Action buspirone 10 mg tablet 10 mg PO BID lisinopril [Zestril] 40 mg tablet 40 mg PO DAILY fluoxetine [Prozac] 20 mg capsule 20 mg PO QID amitriptyline 50 mg tablet 50 mg PO BEDTIME dapagliflozin propanediol [Farxiga] 10 mg tablet 10 mg PO DAILY furosemide 20 mg tablet 20 mg PO Q12H aripiprazole [Abilify] 30 mg tablet 30 mg PO QDAY ropinirole 1 mg tablet 1 mg PO QDAY PRN (Reason: restless leg(s)) levothyroxine [Euthyrox] 50 mcg tablet 50 mcg PO QDAY Qty: 30 11RF Trelegy Ellipta 100-62.5-25 mcg blister with device 1 inh inhalation DAILY omeprazole 20 mg capsule,delayed release(DR/EC) 20 mg PO BID potassium chloride 20 mEq tablet extended release 20 meq PO DAILY Qty: 7 0RF Print Language: Niuean Instructions: Chest Pain (ED) Referrals: POLO SILVA [Primary Care Provider, Family Practice] - 1 week
--- OUTSIDE RECORDS SUMMARY | 2025-04-18 22:49 | XMS_ITS | Encounter Summary ---
Author Organization [facility] Address [address] [place] [address] Care Team Providers Care Flotation Tender Name Role Phone Jose Burrell Jr. Primary Care Provider Sabrina Felix MD Unavailable [phone] Source Comments In the event this information is protected by the Federal Confidentiality of Alcohol and Drug AbusePatient Records regulations: The Federal rules restrict any use of the information to criminally investigate or prosecute any alcohol or drug abuse patient.[facility] Encounter Details DateTypeDepartmentCare Team (Latest Contact Info)Lgpyydmjldv31/19/2025Orders Only General Surgery [address] [place] [address] Dominique Ibarra MD [address] [place] [address] Paroxysmal atrial fibrillation (HCC) (Primary Dx) Social History Tobacco UseTypesPacks/DayYears UsedDateSmoking Tobacco: FormerCigarettesPassive Smoke Exposure: NeverSmokeless Tobacco: NeverAlcohol UseStandard Drinks/Week CommentsNever0 (1 standard drink = 0.6 oz pure alcohol)Area Deprivation Index AnswerDate RecordedNational Score (1-100), lower number is lower risk75 10/02/2025State Score (1-10), lower number is lower [id number] from: https://www.neighborhoodatlas.medicine.[facility].edu/. Last address used for [id number]02/21/[address]25CommentsNoSex and Gender Information ValueDate RecordedSex Assigned at BirthNot on fileLegal ZgiNjnfar81/02/2012 9:17 AM ESTGender IdentityNot on fileSexual OrientationNot on filedocumented as of this encounter Functional Status * Are you deaf or do you have serious difficulty hearing?AnswerDate of OiuzeexzdqWjwdsvHp36/19/2025 6:57 PM Jovita Vogel RN * Are you blind or do you have serious difficulty seeing, even when wearing glasses?AnswerDate of TbyociqozqKpflsmYb31/19/2025 6:57 PM Jovita Vogel RN * Do you have serious difficulty walking or climbing stairs?AnswerDate of EiinzkndroCwvmykLx60/19/2025 6:57 PM Jovita Vogel RN * Do you have difficulty dressing or bathing?AnswerDate of AssessmentAuthorNo 04/10/2025 6:57 PM Jovita Vogel RN * Because of a physical, mental, or emotional condition, do you have difficulty doing errands alone such as visiting a doctor's office or shopping?AnswerDate of KqblvwragyOqmldgFe14/19/2025 6:57 PM Jovita Vogel RN documented as of this encounter Mental Status * Because of a physical, mental, or emotional condition, do you have serious difficulty concentrating, remembering, or making decisions?AnswerEntry Date QhvxmiJr96/19/2025 6:57 PM Jovita Vogel RN documented in this encounter Plan of Treatment DateTypeDepartmentCare Team (Latest Contact Info)Mutxsgqxmmh08/03/2025 11:30 AM ESTOffice Visit General Surgery [address] [address] Sarai Ramos APRN.MERCHANDISING TEAM LEAD [address] [address] Post opNameTypePriorityAssociated DiagnosesOrder ScheduleOUTSIDE VENDOR CARDIAC OUTPATIENT EXTENDED RHYTHM RECORDING (WITHOUT TELEMETRY)HolterRoutine Paroxysmal atrial fibrillation (HCC) Ordered: 04/10/2025documented as of this encounter Visit Diagnoses Diagnosis Paroxysmal atrial fibrillation (HCC)- Primary Atrial fibrillation documented in this encounter Care Teams Team MemberRelationshipSpecialtyStart DateEnd Date Jose Burrell Jr. PCP - [facility]09/07/00 Sabrina Wilkinson MD [address] [place] [address] Gastroenterology02/14/25documented as of this encounter
--- OUTSIDE RECORDS SUMMARY | 2025-04-18 22:49 | XMS_ITS | Encounter Summary ---
Author Organization [facility] Address [address] [place] [address] Care Team Providers Care Geosciences Faculty Member Name Role Phone Jose Burrell Jr. Primary Care Provider Sabrina Felix MD Unavailable [phone] Source Comments In the event this information is protected by the Federal Confidentiality of Alcohol and Drug AbusePatient Records regulations: The Federal rules restrict any use of the information to criminally investigate or prosecute any alcohol or drug abuse patient.[facility] Encounter Details DateTypeDepartmentCare Team (Latest Contact Info)Nscumkzebmx78/14/2025Travel Social History Tobacco UseTypesPacks/DayYears UsedDateSmoking Tobacco: FormerCigarettesPassive Smoke Exposure: NeverSmokeless Tobacco: NeverAlcohol UseStandard Drinks/Week CommentsNever0 (1 standard drink = 0.6 oz pure alcohol)Area Deprivation Index AnswerDate RecordedNational Score (1-100), lower number is lower risk75 02/21/2025State Score (1-10), lower number is lower [id number] from: https://www.neighborhoodatlas.medicine.[facility].edu/. Last address used for [id number] 02/21/2025CommentsNoSex and Gender Information ValueDate RecordedSex Assigned at BirthNot on fileLegal JvxSstiou87/02/2012 9:17 AM ESTGender IdentityNot on fileSexual OrientationNot on filedocumented as of this encounter Plan of Treatment DateTypeDepartmentCare Team (Latest Contact Info)Bqqfmbjmtqr45/03/2025 11:30 AM ESTOffice Visit General Surgery [address] [address] Sarai Ramos APRN.BROADBAND ENGINEER [address] [place] [phone] Post opdocumented as of this encounter Visit Diagnoses Not on filedocumented in this encounter Care Teams Team MemberRelationshipSpecialtyStart DateEnd Date Jose Burrell Jr. PCP - [facility]09/07/00 Sabrina Wilkinson MD [address] [place] [address] Gastroenterology02/14/25documented as of this encounter
--- OUTSIDE RECORDS SUMMARY | 2025-04-18 22:49 | XMS_ITS | Clinical Summary ---
Author Organization [facility] Address [address] [place] [address] Care Team Providers Care Drill Operator Name Role Phone Natividad Milton MD Unavailable [phone] Allergies Active AllergyReactionsCriticalityNoted DateCommentsSumatriptanOther,Unknown 03/19/2020 Tachycardia fainting [...] in the evening. Take before meals. Active Ejsuvsh-Ffebulifxqw-Mvbyzusntq (Breztri Aerosphere) 160-9-4.8 MCG/ACT aerosol Indications:Chronic obstructive pulmonary disease, unspecified COPD type (HCC) Inhale 2 puffs in the morning and 2 puffs before bedtime. 10.7 g 5Active Active Problems No known active problems Encounters DateTypeDepartmentCare ZmbmZkkylwjodwn91/10/2025Telephone [facility] [address] [place] [address] Vivienne Sanchez MA 03/07/2025Telephone [facility] [address] [place] [address] Rosalba Ac, 02/04/2025bstract [facility] [address] [place] [address] Rosalba Ac, 01/29/2025Telephone [facility] [address] [place] [address] Beatrice Reyes, KALI 01/24/2025 10:15 AM EDTConsult [facility] [address] [place] [address] Rosalba Ac, Chronic obstructive pulmonary disease, unspecified COPD type (HCC) (Primary Dx) 01/24/2025amboo flowsheet [facility] [address] [place] [address] Rosalba Ac, DO 01/24/2025Travelfrom Last 3 Months Family History Medical HistoryRelationNameCommentsCancerMotherCancerSisterRelationNameStatus CommentsFatherDeceasedMotherDeceasedSisterDeceased Social History Tobacco UseTypesPacks/DayYears UsedDateSmoking Tobacco: NeverSmokeless Tobacco: Never Tobacco Cessation:Counseling Given: Not Answered Alcohol UseStandard Drinks/WeekCommentsNever0 (1 standard drink = 0.6 oz pure alcohol)CommentsUnknownSex and Gender InformationValueDate RecordedSex Assigned at BirthNot on fileLegal MkeXscmdi41/15/2023 8:27 PM EDTGender Identity Not on fileSexual OrientationNot on file Last Filed Vital Signs Vital SignReadingTime TakenCommentsBlood Qwlmlvbz237/9809 10:20 AM EDT Ovkex5899 10:20 AM EDTTemperature--Respiratory Rate--Oxygen Saturation 98%01/24/2025 10:20 AM EDTInhaled Oxygen Concentration--Ajxiiq29.3 kg (188 lb) 01/24/2025 10:20 AM EDHWelkyh226.5 cm (5' 2 )01/24/2025 10:20 AM EDTBody Mass Index34.39001/24/2025 10:20 AM EDT Plan of Treatment DateTypeDepartmentCare Team (Latest Contact Info)Sjxgioekuuu05/16/2025 2:00 PM ESTOffice Visit [facility] [address] [place] [address] Rosalba Ac, DO [address] [place] [address] Health MaintenanceDue DateLast DoneCommentsCT Bybuauwbkcps80/09/1954FIT-DNA 1953FIT1955FOBT1955 9697Ofvdfkynonbff79/09/0496Uztikbcma96/09/1994 COVID-19 Vaccine ( season)5107/01/2022, 02/12/2022, 09/18/2021, Additional history existsInfluenza Vaccine (#1)5006/05/2024, 04/30/2023, 02/12/2022, Additional history gzawopRdivlynoosm47/04/2034 04/25/2024, 03/14/2013Colorectal Cancer Gyauimyeo05/04/2034Pneumococcal Vaccine: 65+ NilalLamowkzth30/14/2025, 09/18/2021, 02/02/2020, [place] [address] Care Teams Team MemberRelationshipSpecialtyStart DateEnd Natividad Milton MD [employer] [place] [address] Referring PhysicianFamily Medicine01/24/25
--- OUTSIDE RECORDS SUMMARY | 2025-04-18 22:49 | XMS_ITS | Clinical Summary ---
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 90 tablet 5Active dngbvyovmj-lldlmbhz-mbrzsjvyrt (Breztri Aerosphere) 160-9-4.8 mcg/actuation HFA aerosol inhaler Inhale 2 puffs twice a day.5Active albuterol 2.5 mg /3 mL (0.083 %) nebulizer solution Take 2.5 mg by nebulization every 6 (six) hours if needed.Active spironolactone (Aldactone) 25 mg tablet Indications:Benign hypertensive heart disease with heart failure (CMS/HCC)Take 0.5 tablets (12.5 mg) by mouth in the morning. 15 tablet 11151ctive ARIPiprazole (Abilify) 30 mg tablet Take 30 mg by mouth in the morning.Active Active Problems ProblemNoted DateDiagnosed DateAspiration dsolgzwbc35/19/2025hronic interstitial lung eyerdtu6304/10/2025Electrolyte rfpnshmyi06/17/2025Ileus, wkzzerpgpkqus75/17/2025Malnutrition of mild qgednn8404/07/2025hronic renal bmgxdviljcitu31/14/2025PAF (paroxysmal atrial fibrillation)04/05/2025PONV (postoperative nausea and vomiting)04/05/2025Post-op pain04/05/2025S/P repair of paraesophageal nqwgfz4404/05/2025bnormal finding of diagnostic sfefcag1103/04/2025 Atherosclerosis of aorta03/04/2025hest pain03/04/2025OVID-191Dyspnea 03/04/2025Excessive caffeine zwrcjo8403/04/2025Heart etremuz2903/04/2025Insomnia 03/04/2025Iron deficiency yhhxhj9003/04/20259601Vlppcdloenny23/13/2025Memory deficit 03/04/2025Mixed anxiety and depressive awkhbvsw66/13/8071Dwddcvupfcey79/13/2025 Rib wgijsksn33/13/2025Weight loss03/01/2025hronic obstructive pulmonary disease 01/16/2025MI 35.0-35.9,adult01/16/2025lass 3 ajvgisx8801/16/2025losed displaced fracture of styloid process of ulna with routine cerngft6801/16/2025losed fracture of distal end of left ajijrn9901/16/2025Degeneration of intervertebral disc of lumbosacral region with discogenic back pain01/16/2025Diverticulosis 01/16/2025Gastroesophageal reflux mhhvzdl3401/16/2025Hiatal cfvkoe7501/16/2025 Hearing loss01/16/20252693Koobjaaemudy12/27/2025Restless leg kozienky79/27/2025 Screening for malignant neoplasm of colon01/16/2025Sleep apnea01/16/2025Wedge compression fracture of T11-T12 vertebra, initial encounter for closed fracture 01/16/2025SVT (supraventricular tachycardia)01/16/2025ontinuous opioid qemorqmzba60/08/2023Lumbar zljqfzijhzorr46/08/3012Cnjqwlh40/01/2023 Pwzsnkrynwxmqmghrriw70/01/7274Wlwewjvdcjhuuo11/01/2023ulmonary hypertension 04/09/2022ipolar npuycoom87/22/2017Hypertensive ktlugeiz52/22/2017Migraine 10/11/2016 Encounters DateTypeDepartmentCare SrpxXwumgvuvcrq22/25/2025 9:15 AM ESTOffice Visit [facility] [address] [place] [place] [address] Kiel Stephens MD Postoperative atrial fibrillation (CMS/HCC) (Primary Dx)04/16/2025Orders Only [facility] [address] [place] [address] Oumou Mcarthur MA Paroxysmal atrial fibrillation (CMS/HCC) (Primary Dx)03/04/2025 11:20 AM EDT Office Visit [address] [place] [address] Cristhian Gamino CNP Preop cardiovascular exam (Primary Dx); Shortness of breath; Chronic heart failure with preserved ejection fraction (HFpEF) (CMS/HCC); Nonrheumatic aortic valve insufficiency; Benign hypertensive heart disease with heart failure (CMS/HCC); CONNIE (obstructive sleep apnea)02/27/2025Refill [facility] [address] [place] [address] Mary Sullivan MA Benign hypertensive heart disease without congestive heart gtukdrd3501/31/[address] [place] [address] Oumou Mcarthur MA 01/16/2025 2:45 PM EDTOffice Visit [address] [place] [address] Miriam Saenz MD Acute on chronic heart failure with preserved ejection fraction (CMS/HCC) (Primary Dx); Palpitations; Dyspnea on exertion; Nonrheumatic aortic valve insufficiencyfrom Last 3 Months Immunizations ImmunizationAdministration DatesNext DueInfluenza, High-dose Seasonal, Quadrivalent, Preservative Free02/12/2022,03/05/2021Influenza, injectable, MDCK, psrklckknrof54/09/2018Influenza, injectable, ryszsucgcpfe31/12/2020Influenza, seasonal, isdhwqzahe88/01/2021Influenza, seasonal, injectable, preservative free, 6 moonths & older02/27/2016Influenza, trivalent, qvfwwovrfg02/30/2019 Pfizer SARS-CoV-2 Vmgbmhloyqj66/29/2022,03/05/2021,08/04/2020,07/14/2020 Pneumococcal Conjugate PCV 13002/02/2020,02/28/2018Pneumococcal Conjugate PCV 20 09/18/2021neumococcal Polysaccharide VKJ04237268Qkyd01/06/2022,04/01/2018 Unspecified Sars-Cov-2 Lqgdvjdoieg57/23/2022Zoster, live02/27/2016 Family History Medical HistoryRelationNameCommentsCancerMotherCancerSisterRelationNameStatus CommentsFatherDeceasedMotherDeceasedSister Social [...] relatives?Twice a week03/16/2022How often do you attend muslim or buddhist services?More than 4 times per year2Do you belong to any clubs or organizations such as muslim groups, unions, fraternal or athletic groups, or [...] and heating?Somewhat hard03/16/2022 PHQ-2AnswerDate RecordedPatient Health Questionnaire-2 Gheec084[facility] [place] [facility] - Occupational Stress QuestionnaireAnswerDate [...] steady place to sleep or slept in [place] (including now)?No03/16/2022UT Safety & EnvironmentAnswerDate RecordedFear of Current or Ex-PartnerNot on file07/14/2023Emotionally AbusedNot on file07/14/2023hysically AbusedNot on file07/14/2023Sexually AbusedNot on file07/14/2023hysically or Sexually AbusedNot on file07/14/2023Comments UnknownSex and Gender InformationValueDate RecordedSex Assigned at BirthFemale 01/15/2025 10:25 AM EDTLegal MizTgkshe40/29/2022 10:16 PM EDTGender Identity Qqjfoz0201/15/2025 10:25 AM EDTSexual OrientationHeterosexual or Straight 01/15/2025 10:25 AM EDT Last Filed Vital Signs Vital SignReadingTime TakenCommentsBlood Ylgrebwy670/7804/16/2025 9:41 AM EST Eload596404/16/2025 9:41 AM XVRVmuclulzldc86.4 ??C (97.5 ??F)03/16/2022 1:15 PM EDTRespiratory Vsfw7809 1:15 PM EDTOxygen Ggwaxcayln36%04/16/2025 9:41 AM ESTInhaled Oxygen Concentration--Xdkuem56.6 kg (171 lb)04/16/2025 9:41 AM EST Tvlzns540.5 cm (5' 2 )04/16/2025 9:41 AM ESTBody Mass Index31.28106/16/2024 9:41 AM EST Plan of Treatment DateTypeDepartmentCare Team (Latest Contact Info)Rgvhmmqeajc87/18/2025 1:20 PM ESTOffice [facility] [address] [place] [address] Araceli Shanks, XRAY TECH [address] [facility] [place] [address] Health MaintenanceDue DateLast DoneCommentsCT Cyigoucqoqey81/09/1954FIT-DNA 1953FIT1953FOBT1953Medicare Annual Wellness (AWV)1955 Hjsguuzduxsdy30/09/1954Depression Rburhejfg65/09/3493Lnjeusjge15/09/1994Fall Risk Fcuxzavjt86/09/2019COVID-19 Vaccine ( season)2025 04/30/2023, 07/09/2022, 02/12/2022, Additional history existsInfluenza Vaccine (#1)501/, 04/30/2023, 02/12/2022, Additional history existsAdult Timsepi18/10/2021, 04/01/20183807Aadhssxbbfc97/04/296149/08/2023, 03/14/2013Colorectal Cancer Ddmvssurg04/04/2034Pneumococcal Vaccine: 50+ Years Fsntswibv27/14/2025, 09/18/2021, 02/02/2020, Additional history existsZoster PjowkmjoGszdfoeae45/11/2025, 07/02/2024, 02/27/2016HIB VaccinesAged OutNo longer eligible based [...] on patient's age to complete this topic Procedures Procedure NamePriorityDate/TimeAssociated DiagnosisCommentsECG 12-LEADRoutine 04/17/2025 11:03 AM EST Paroxysmal atrial fibrillation (CMS/HCC) from Last 3 Months Results * ECG 12 lead (04/17/2025 11:03 AM EST) Narrative Authorizing ProviderResult TypeResult StatusPapeter FREEMAN ORDERABLESFinal Result from Last 3 Months Insurance Care Teams Team MemberRelationshipSpecialtyStart DateEnd Travis Townsend MD [address] [facility] [place] [address] PCP - Qetfdiz45/25/22
--- OUTSIDE RECORDS SUMMARY | 2025-04-18 22:49 | XMS_ITS | Clinical Summary ---
Author Organization [facility] Address [address], [address] [place] [address] Care Team Providers Care Contracts Director Name Role Phone Bull Forrest MD Primary Care Provider [phone] Allergies No known active allergies Medications MedicationSigDispense [...] InformationValueDate RecordedSex Assigned at Not on fileLegal FdxHldzgw64/10/2013 9:20 AM ESTGender IdentityNot on fileSexual OrientationNot on file Last Filed Vital Signs Vital SignReadingTime TakenCommentsBlood Aatctbot356/8304/01/2018 11:58 AM EST Valhs938104/01/2018 11:56 AM EIRAsieugvxzdg56.5 ??C (97.7 ??F)04/01/2018 11:58 AM ESTRespiratory Rate--Oxygen Kmjhbywued99%04/01/2018 11:56 AM ESTInhaled Oxygen Concentration--Zjlkyc88.9 kg (207 lb)04/01/2018 11:56 AM IZTJpbumg776 cm (5' 3 ) 04/01/2018 11:56 AM ESTBody Mass Index36.6704/01/2018 11:56 AM EST Plan of Treatment Not on file Insurance Care Teams Team MemberRelationshipSpecialtyStart Date Bull Forrest MD [address] [place] [address] PCP - GeneralFamily Umqlqqew95/10/18
--- OUTSIDE RECORDS SUMMARY | 2025-04-18 22:49 | XMS_ITS | Patient Health Record ---
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 Feroz Raymundolisa Unavailable [phone] Richard Askew Unavailable [phone] Willi Torres Unavailable [phone] Shyanne Berg Unavailable [phone] Allergies Allergen (clinical drug ingredient) Drug/Non Drug Allergy documented on EMR Reaction Allergy Type Onset Date Status sumatriptan Imitrex Unknown Drug Allergy Active Results Component Value Reference Range Notes SCC- WRIST 3 VIEW LEFT 56564 Reviewed date:08/09/2024 01:53:02 PM Interpretation: Performing Lab: Notes/Report: SCC- WRIST 3 VIEW LEFT [id number] Reviewed date:06/27/2024 09:42:44 AM Interpretation: Performing Lab: Notes/Report: Reason For Referral Reason APPROVED for Hosp. C onsult 06/07 APPROVED for ORIF done 06/11 Diagnosis 1 Other intraarticular fracture of lower end of left radius, initial encounter for closed fracture (S52.572A) Referral Organization [facility] Referring Provider First Name Willi Referring Provider Last Name Brian Referring Provider Speciality Orthopedic Surgery Referred Organization [facility] Referred Address [address] [place],[address], General Notes Pau Tucker 11:56:12 AM > Lauren asked that I submit c9's for her Hospital Consult on 06/07 and SX on 06/11. Faxed c9's with reports., Pua Tucker 06/22/2024 03:30:13 PM > rcvd c9 auth for SX done 06/11, see Caitlin orozco Jessika 06/22/2024 03:32:00 PM > rcvd c9 auth for Hospital consult on 06/07, see attachment Referral Priority Routine Reason AD// WORK SLIP PLEAS E Diagnosis 1 Other intraarticular fracture of lower end of left radius, initial encounter for closed fracture (S52.572A) Referral Organization [facility] Referring Provider First Name Willi Referring Provider Last Name Raleigh Referring Provider Speciality Orthopedic Surgery Referred Organization [facility] Referred Address [facility] [address] [place], [place],[address], General Notes Kierra Brice 06/20 09:09:27 AM >Need work slip for 06/11/2024 sx please. [facility] called asking for. Thanks so much, Pam Licona 06/20/2024 09:30:15 AM > IN UNDER CHART DOCS, Kierra Brice 06/20/2024 10:16:35 AM >noted. faxed [facility] Referral Priority Urgent Reason addressed,APPROVED f or casting done 06/25 Diagnosis 1 Other intraarticular fracture of lower end of left radius, initial encounter for closed fracture (S52.884C) Referral Organization [facility] Referring Provider First Name Willi Referring Provider Last Name Raleigh Referring Provider Speciality Orthopedic Surgery [facility] Referred Address [address] [address],[place], [place],[address],[place] General Notes Pau Tucker 09:05:49 AM > [...] Priority Routine Reason APPROVED FOR P.T. AT [place], OFF WORK, WRIST BRACE (PATIENT WILL GET [facility] [place]) AD [employer] APPROVED for dme from 07/16 Diagnosis 1 Other intraarticular fracture of lower end of left radius, subsequent encounter for closed fracture with routine healing (S52.572D) Referral Organization [facility] Referring Provider First Name Willi Referring Provider Last Name Torres Referring Provider Speciality Orthopedic Surgery Referred Organization [facility] Referred Address [address] [place] [address],[address],[place], [place],[address], General Notes Pau Tucker 08:01:11 AM > Can you please add dx for displaced ulnar styloid fx, dictated from xray, Juan David miller Jenny 07/17/2024 10:34:00 AM >done, Pau Tucker 07/17/2024 11:19:39 AM > faxed note and c9 for PT, Pau Tucker 07/19/2024 10:44:12 AM > rcvd C9 Auth PT LT arm 12 visits 07/17 to 09/07, see attachment. Where at in [place] would she go for PT?, Pam Licona 07/19/2024 11:15:20 AM >[facility] 08/06/2024 02:30:15 PM >, Miranda Galloway 08/13/2024 03:17:21 PM >C9 for dme [id number] given on 07-16-24. Patient went from [place] to [facility] for this. Assuming SI needs [...] routine healing, subsequent encounter (S52.612D) Referral Organization [facility] Referring Provider First Name Willi Referring Provider Last Name Torres Referring Provider Speciality Orthopedic Surgery [facility] Referred Address [address] [address],[place], [place],[address],[place] General Notes Pau Tucker 02:24:34 PM > [...] PM > found a letter on the [facility] website. dx S52.612 was allowed on 08/22. see attachment Referral Priority Routine Reason AD 09/10 note Diagnosis 1 Closed displaced fra cture of styloid process of left ulna with routine healing, subsequent encounter (S52.612D) Referral Organization [facility] Referring Provider First Name Willi Referring Provider Last Name Brian Referring Provider Speciality Orthopedic Surgery [facility] Referred Address [address] [facility] [address],[place], [place],[address], General Notes Pau Tucker 03:42:17 PM > faxed note and updated [employer] Referral Priority Routine Reason APPROVED............ .....................NOT SCHEDULED....................................[facility] MRI THORACIC AND LUMBAR TO BE DONE AT [place] Diagnosis 1 Compression fracture of T10 vertebra with routine healing, subsequent encounter (S22.070D) Diagnosis 2 Lumbar back pain (M5 4.50) Referral Organization [facility] Referring Provider First Name Rhett Referring Provider Last Name St Pepper Referring Provider Speciality Orthopedic Surgery Referred Organization [facility] Referred Address [place], [place], Procedure 1 MRI Thoracic Spine w /o Dye (36363) Procedure 2 MRI Lumbar Spine w/o Dye (05094) General Notes Marva Townsend 2024 12:43:02 PM >Kyle Kayla 11/02/2024 12:45:30 PM > WAITING ON TODAY'S OFFICE NOTE, Salma Wright 11/06/2024 09:24:12 AM > SONNY ACTIVE AND EFFECTIVE 05/23/24 PER AIM. AUTHORIZATION REQUEST SUBMITTED VIA [facility], PENDING AUTHORIZATION # [id number] WITH ANTICIPATED DETERMINATION DATE OF 11/16/24 PER AIM. CLINICALS FAXED TO [facility] @ [phone], Salma Wright 11/07/2024 07:57:33 AM > CASE PENDING PER AIM.Kyle Kayla 11/09/2024 08:57:51 AM > STILL PENDING PER AIM.Kyle Kayla 11/12/2024 08:19:14 AM > STILL PENDING WITH AIM.Kyle Kayla 11/13/2024 07:13:43 AM > PENDING, Salma Wright 11/14/2024 09:42:34 AM > PENDING WITH AIM STILL.Kyle Kayla 11/16/2024 07:49:35 AM > AUTHORIZATION # [id number] APPROVED AND VALID 11/06/24-02/03/25 PER AIM. SCANNED INTO CHART AND FAXED TO [facility].Kristian Dawn 11/16/2024 08:15:51 AM >faxed Referral Priority Routine Diagnosis 1 Closed displaced fra cture of styloid process of left ulna with routine healing, subsequent encounter (S52.612D) Referral Organization [facility] Referring Provider First Name Rhett Referring Provider Last Name St Pepper Referring Provider Speciality Orthopedic Surgery Referred Organization [facility] Referred Address [address] ,[place], [place],[address], Referral Priority Routine Medications Medication SIG (Take, Route, Frequency, Duration) Notes Start Date End Date Status Abilify ActivePROzacActive Social History Tobacco Use: Social History Observation Description Date Details (start date - stop date) Never Smoker NA - NA AUDIT-C (Standard) Question Answer Notes Did you have a drink containing alcohol in the p ast year? No Hajhyb5KtjjsjvjofiteuMpfyfknlRmtdavy Control (Standard) Question Answer Notes Tobacco use: Nonsmoker Problems Problem Type SNOMED Code ICD Code Onset Dates Problem Status W/U Status Risk Notes Problem Closed displaced fracture of styloid process of left ulna with routine healing, subsequent encounter (S52.612D)ActiveconfirmedProblemDegeneration of intervertebral disc of lumbosacral region with discogenic back pain (M51.370) ActiveconfirmedProblemClosed fracture of distal end of left radius ([id number])Other intraarticular fracture of lower end of left radius, initial encounter for closed fracture (S52.572A)InactiveconfirmedProblemClosed fracture of distal end of left radius ([id number])Other intraarticular fracture of lower end of left radius, subsequent encounter for closed fracture with routine healing (S52.572D)ActiveconfirmedProblemWedge compression fracture of T11-T12 vertebra, initial encounter for closed fracture (S22.080A)Active confirmed Vital Signs Height 5 ft 2 in in 12/03/2024 Kgqhed877 lbs12/03/2024BMI36.58012/03/2024 Encounters Encounter Location Date Provider Diagnosis [facility] [address] [place] [address] [facility] intraarticular fracture of lower end of left radius, initial encounter for closed fracture S52.572A and Fall, initial encounter W19.XXXA [facility] Outpatient [address] [facility] [place] [address] 06/11/2024 Willi Torres Other intraarticular fracture of lower end of left radius, initial encounter for closed fracture S52.572A [facility] [facility] [address] [place] [address] [place] [address] 06/25/2024 Shyanne [place] Other intraarticular fracture of lower end of left radius, subsequent encounter for closed fracture with routine healing S52.572D and Closed displaced fracture of styloid process of left ulna with routine healing, [facility] [address] [place] [address] [place] [address] 07/16/2024 [place]ne [place] Other intraarticular fracture of lower end of left radius, subsequent encounter for closed fracture with routine healing S52.572D and Closed displaced fracture of styloid process of left ulna with routine healing, subsequent encounter S52.612D [facility] [facility] [address] [place] [address] [place] [address] 08/13/2024 Willi Torres Closed displaced fracture of styloid process of left ulna with routine healing, subsequent encounter S52.612D and Other intraarticular fracture of lower end of left radius, subsequent encounter for closed fracture with routine healing S52.572D [facility] [address] [place] [address] [place] [address] 09/10/2024 Willi Torres Closed displaced fracture of styloid process of left ulna with routine healing, subsequent encounter S52.612D and Other intraarticular fracture of lower end of left radius, subsequent encounter for closed fracture with routine healing S52.572D [facility] [address] [place] [address] 11/02/2024 Richard Askew Wedge compression fracture of T11-T12 vertebra, initial encounter for closed fracture S22.080A and Degeneration of intervertebral disc of lumbosacral region with discogenic back pain M51.370 [facility] [place] [address] [place] [address] 12/03/2024 Rhett Goodman Clair Compression fracture of T10 vertebra with routine healing, subsequent encounter S22.070D [facility] [address] [place] [address] 07/16/2024 Willi Torres Assessments Encounter Date Diagnosis [...] short arm cast. She does work at [employer] and has to do a lot of [...] work with some restrictions. She works at [employer] and reports she does not have to [...] 4-6 weeks - Return to work at [employer] with no restrictions starting next Tuesday - [...] 080 11/02/2024 SCC- WRIST 3 VIEW LEFT 44025 08/13/2024 SCC- PT/OT EVAL AND TREAT 3X/WEEK FOR 6 WEEKS 07/16/2024 SCC- WRIST 3 VIEW LEFT 90378 09/10/2024 MRI : Lumbosacral Spine W/O Contrast - 7 2148 11/02/2024 MRI : Thoracic Spine W/O Contrast - 7214 6 11/02/2024 Insurance Providers Payer Name Payer Address Payer Phone Subscriber Number Group Number Insured Name Patient Relationship to Insured Coverage Start Date Coverage End Date Medicare [employer] [address] [place] [address] [id number] 2 [facility] Self - patient is the insured 5 [employer], [id number] CONFIDENTIAL TO [facility] DEPT [place], [place] [id number] lt wrist & ribsBLANTOAYO Friaself - patient is the [id number] 2024 Medical (General) History Medical History History ICD Code Respiratory problems: Lung DiseaseHypothyroidismHigh Blood PressureDepressionMental Illness:Anxiety Surgical History Surgery Date(Month/Year) ORIF of a left distal radius fracture
--- OUTSIDE RECORDS SUMMARY | 2025-04-18 22:49 | XMS_ITS | CCD ---
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 [address] [place] [address] [place] AMERICAMonocytes (Bld) [#/Vol]0.99 10*3/uL High<0.87[facility] on above:Order Comment: Specimen Type: BLOOD SPECIMEN Ordering Facility[facility] Address: [address] [place], [place] [address]Performed By: #### [id number] #### [facility] CLIA [id number] [address] [place] [id number] [place] AMERICAMonocytes/100 WBC (Bld)8.1 %Normal [facility] on above:Order Comment: Specimen Type: BLOOD SPECIMEN Ordering Facility[facility] Address: [address] [place], [place] [address]Performed By: #### [id number] #### [facility] CLIA [id number] [address] [place] [address] [place] AMERICANeutrophils (Bld) [#/Vol]9.04 10*3/uLHigh1.45-7.50[facility] on above:Order Comment: Specimen Type: BLOOD SPECIMEN [facility]ing Facility[facility] Address: [address] [place], [place] [address]Performed By: #### [id number] #### [facility] CLIA [id number] [address] [place] [address] [place] AMERICANeutrophils/100 WBC (Bld)74.3 % NormalHighland District Hospital on above:Order Comment: Specimen Type: BLOOD SPECIMEN [facility] Address: [address] [place], [place] [address]Performed By: #### [id number] #### [facility] CLIA [id number] [address] [place] [address] [place] AMERICANucleated RBC (Bld) [#/Vol]10*3/uL Normal<0.01[facility] on above:Order Comment: Specimen Type: BLOOD SPECIMEN [facility] Address: [address] [place], [place] [address]Performed By: #### [id number] #### [facility] CLIA [id number] [address] [place], [place] [id number] [place] AMERICANucleated RBC/100 WBC (Bld) [Ratio] 0.0 /100 WBCNormalCCincinnati VA Medical Center on above:Order Comment: Specimen Type: BLOOD SPECIMEN [facility] Address: [address] [place], [place] [address]Performed By: #### [id number] #### [facility] CLIA [id number] [address] [place] [address] [place] AMERICAPlatelet mean volume (Bld) [Entitic vol]10.0 fLNormal9.0-12.7CCincinnati VA [facility] Center on above:Order Comment: Specimen Type: BLOOD SPECIMEN [facility] Address: [address] [place], [place] [address]Performed By: #### [id number] #### [facility] CLIA [id number] [address] [place] [address] [place] AMERICAPlatelets (Bld) [#/Vol]355 10*3/uL Udymny833-778SexvopiekHighland District Hospital on above:Order Comment: Specimen Type: BLOOD SPECIMEN [facility]ing [facility] Address: [address] [place], [place] [address]Performed By: #### [id number] #### [facility] CLIA [id number] [address] [place] [address] [place] AMERICARBC (Bld) [#/Vol]4.61 10*6/uLNormal 3.90-5.20[facility] on above:Order Comment: Specimen Type: BLOOD SPECIMEN Ordering [facility] Address: [address] [place], [place] [address]Performed By: #### [id number] #### [facility] CLIA [id number] [address] [place] [address] [place] AMERICAWBC (Bld) [#/Vol]12.15 10*3/uLHigh 3.70-11.00[facility] on above:Order Comment: Specimen Type: BLOOD SPECIMEN [facility] Address: [address] [place], [place] [address]Performed By: #### [id number] #### [facility] CLIA [id number] [address] [place] [address] [place] AMERICATYPE AND SCREEN,30 DAYon 04-03-2025 ABOANoalCCincinnati VA Medical Center on above:Order Comment: Specimen Type: BLOOD SPECIMEN Ordering [facility] Address: [address] [place], [place] [address]Performed By: #### [id number] #### [facility] CLIA [id number] [address] [place] [address] STATES AMERICARh Nom (Bld)PositiveNoalCCincinnati VA Medical Center on above:Order Comment: Specimen Type: BLOOD SPECIMEN [facility]ing [facility] Address: [address] [place], [place] [address]Performed By: #### [id number] #### [facility] CLIA [id number] [address] [place], [place] [address]CNPNon [id number] (MNPACC) MARY VICK ([id number]) 1955 F Date Time Provider Department 03/29/25 VIRAL HICKS MNPACC During your visit today, we recorded the following information about you: Viral Hicks APRN.CNP 03/29/2025 12:11 PM Signed Call placed to patient do advise of CXR results. Also made aware she is able to have labs drawn (called and verified with [facility]) at [facility] prior to surgery. Patient verbalizes understanding and will have done before DOS. Viral Hicks APRN, [employer]BBER S[employer]ICER [facility] Neftali Morgan 04/02/2025 12:50 PM Signed DOS 04/05/2025 Spoke to patient, reminded her to complete pre-op lab work that was ordered. She was planning togo the day before surgery. Asked if she is able if she could go tomorrow so the lab results would be back in time for review. Patient stated she can go tomorrow and was familiar with where the [facility] location was located. Neftali Morgan ([facility]) Allergies As of Date: 03/29/2025 Noted Allergy Reaction SUMATRIPTAN 03/19/2020 14 - Other: See Comments Comments: Tachycardia fainting Tachycardia fainting Date Reviewed: 03/26/2025 Reviewed by: Dulce Man LPN - Fully Assessed Reason for Visit: Preop Update and Labs [Other] Primary Visit Diagnosis:Preoperative examination [Z01.818] Order(s):COMPLETE BLOOD COUNT AND DIFFERENTIAL [SQCBCDIF] Order #: [id number] FUTURE Prescriptions as of 04/02/2025 - amitriptyline (ELAVIL) 50 mg tablet Take 50 mg by mouth daily at bedtime. - furosemide (LASIX) 20 mg tablet Take 20 mg by mouth two times a day. - ALBUTEROL INHALATION Inhale as instructed. - jxjyubnanh-kkkmoeou-kxtmldrmus (BREZTRI AEROSPHERE) 160-9-4.8 mcg/actuation HFA aerosol inhaler [...] by mouth. Problem List As Of Date: 03/29/2025 (None) Encounter Status:Closed by VIRAL HICKS on 03/29/25NoCleveland Clinic Mentor HospitalMAVISdemarcus [id number] (MNPACC) MARY VICK ([id number]) 1955 F Date Time Provider Department 03/27/25 MATT BROWN MNPACC During your visit today, we recorded the following information about you: Matt Brown 03/27/2025 2:40 PM Signed Patient left a message on [facility] Wongnaiil saying that she received a phone message after seeing [facility] that said she needed a chest xray. Pt would like to know if she can do chest xray closer to home? Please call patient and let her know. Thank you Mireille Sutton 03/27/2025 3:04 PM Signed DOS 04/05 Spoke with patient. She will complete her CXR ordered by Viral Hicks APRN,RUBBER SPLICER locally. [facility] Fax # to xray dept: [phone] - faxed order. Requested results be faxed to fax. Viral Sutton RN [facility] Matt Brown 03/27/2025 3:36 PM Signed Thank you Yaquelin! Neftali Morgan 03/28/2025 7:25 AM Signed DOS 04/05/2025 Patient called this morning, stated [facility] did not receive the chest xray order. She asked if I could fax the order to a different fax number. Order faxed to [phone] Confirmation of fax received. Neftali Morgan ([facility] RN) March 28, 2025 0724 AM Dulce Man LPN 03/28/2025 11:08 AM Signed External chest X-Ray order scanned into [facility]. Allergies As of Date: 03/27/2025 Noted Allergy Reaction SUMATRIPTAN 03/19/2020 14 - Other: See Comments Comments: Tachycardia fainting Tachycardia fainting Date Reviewed: 03/26/2025 Reviewed by: Dulce Man LPN - Fully Assessed Reason for Visit: Patient Question [1477] Cmt: Chest Xray question Prescriptions as of 03/28/2025 - amitriptyline (ELAVIL) 50 mg tablet Take 50 mg by mouth daily at bedtime. - furosemide (LASIX) 20 mg tablet Take 20 mg by mouth two times a day. - ALBUTEROL INHALATION Inhale as instructed. - uthatkykub-rmjwlxoq-nlsxxlcjoo (BREZTRI AEROSPHERE) 160-9-4.8 mcg/actuation HFA aerosol inhaler [...] by mouth. Problem List As Of Date: 03/27/2025 (None) Encounter Status:Closed by NEFTALI MORGAN on 03/28/25NoChillicothe [facility] W Auto Differential panel (Bld)on [id number] (Bld) [#/Vol] 0.07 10*3/uLNormal<0.11CCincinnati [facility] on above:Order Comment: Specimen Type: BLOOD SPECIMEN [facility] Address: [address] [place], [place] [address]Performed By: #### [id number] #### [facility] CLIA [id number] [address] [place] [address] [place] AMERICABasophils/100 WBC (Bld)0.5 %Normal [facility] on above:Order Comment: Specimen Type: BLOOD SPECIMEN [facility] Address: [address] [place], [place] [address]Performed By: #### [id number] #### [facility] CLIA [id number] [address] [place] [address] [place] AMERICADifferential cell count method Nom (Bld)AutoNormalCCincinnati VA Medical Center on above:Order Comment: Specimen Type: BLOOD SPECIMEN [facility] Address: [address] [place], [place] [address]Performed By: #### [id number] #### [facility] CLIA [id number] [address] [place] [address] [place] AMERICAEosinophils (Bld) [#/Vol]0.17 10*3/uLNormal<0.46[facility] on above:Order Comment: Specimen Type: BLOOD SPECIMEN [facility] Address: [address] [place], [place] [address]Performed By: #### [id number] #### [facility] CLIA [id number] [address] [place] [address] [place] AMERICAEosinophils/100 WBC (Bld)1.2 %Normal [facility] on above:Order Comment: Specimen Type: BLOOD SPECIMEN [facility] Address: [address] [place], [place] [address]Performed By: #### [id number] #### [facility] CLIA [id number] [address] [place] [address] [place] AMERICAErythrocyte distribution width (RBC) [Ratio]17.2 %High11.5-15.0[facility] on above:Order Comment: Specimen Type: BLOOD SPECIMEN [facility] Address: [address] [place], [place] [address]Performed By: #### [id number] #### [facility] CLIA [id number] [address] [place] [address] [place] AMERICAHematocrit (Bld) [Volume fraction] 42.6 %Ikmrtn25.0-46.0[facility] on above:Order Comment: Specimen Type: BLOOD SPECIMEN [facility] Address: [address] [place], [place] [address]Performed By: #### [id number] #### [facility] CLIA [id number] [address] [place] [address] [place] AMERICAHemoglobin (Bld) [Mass/Vol]13.9 g/dL Yfboyd36.5-15.5CCincinnati [facility] on above:Order Comment: Specimen Type: BLOOD SPECIMEN [facility] Address: [address] [place], [place] [address]Performed By: #### [id number] #### [facility] CLIA [id number] [address] [place] [address] [place] AMERICAImmature granulocytes (Bld) [#/Vol] 0.07 10*3/uLNormal<0.10[facility] on above:Order Comment: Specimen Type: BLOOD SPECIMEN [facility] Address: [address] [place], [place] [address]Performed By: #### [id number] #### [facility] CLIA [id number] [address] [place] [address] [place] AMERICAImmature granulocytes/100 WBC (Bld) 0.5 %NormalHighland District Hospital on above:Order Comment: Specimen Type: BLOOD SPECIMEN [facility] Address: [address] [place], [place] [address]Performed By: #### [id number] #### [facility] CLIA [id number] [address] [place] [address] [place] AMERICALymphocytes (Bld) [#/Vol]1.89 10*3/uLNormal1.00-4.00[facility] on above:Order Comment: Specimen Type: BLOOD SPECIMEN [facility] Address: [address] [place], [place] [address]Performed By: #### [id number] #### [facility] CLIA [id number] [address] [place] [address] [place] AMERICALymphocytes/100 WBC (Bld)13.3 % NormalHighland District Hospital on above:Order Comment: Specimen Type: BLOOD SPECIMEN [facility] Address: [address] [place], [place] [address]Performed By: #### [id number] #### [facility] CLIA [id number] [address] [place] [address] STATES OF AMERICAH (RBC) [Entitic mass]29.1 pg Ahlssz75.0-34.0[facility] on above:Order Comment: Specimen Type: BLOOD SPECIMEN [facility] Address: [address] [place], [place] [address]Performed By: #### [id number] #### [facility] CLIA [id number] [address] [place] [address] [place] AMERICAMCHC (RBC) [Mass/Vol]32.6 g/dLNormal 30.5-36.0[facility] on above:Order Comment: Specimen Type: BLOOD SPECIMEN [facility] Address: [address] [place], [place] [address]Performed By: #### [id number] #### [facility] CLIA [id number] [address] [place] [address] [place] AMERICAMCV (RBC) [Entitic vol]89.1 fLNormal 80.0-100.0[facility] on above:Order Comment: Specimen Type: BLOOD SPECIMEN [facility] Address: [address] [place], [place] [address]Performed By: #### [id number] #### [facility] CLIA [id number] [address] [place] [address] [place] AMERICAMonocytes (Bld) [#/Vol]0.77 10*3/uL Normal<0.87[facility] on above:Order Comment: Specimen Type: BLOOD SPECIMEN [facility] Address: [address] [place], [place] [address]Performed By: #### [id number] #### [facility] CLIA [id number] [address] [place] [address] [place] AMERICAMonocytes/100 WBC (Bld)5.4 %Normal [facility] on above:Order Comment: Specimen Type: BLOOD SPECIMEN [facility] Address: [address] [place], [place] [address]Performed By: #### [id number] #### [facility] CLIA [id number] [address] [place] [address] [place] AMERICANeutrophils (Bld) [#/Vol]11.22 10*3/uLHigh1.45-7.50[facility] on above:Order Comment: Specimen Type: BLOOD SPECIMEN [facility] Address: [address] [place], [place] [address]Performed By: #### [id number] #### [facility] CLIA [id number] [address] [place] [address] [place] AMERICANeutrophils/100 WBC (Bld)79.1 % NormalHighland District Hospital on above:Order Comment: Specimen Type: BLOOD SPECIMEN [facility] Address: [address] [place], [place] [address]Performed By: #### [id number] #### [facility] CLIA [id number] [address] [place] [address] [place] AMERICANucleated RBC (Bld) [#/Vol]10*3/uL Normal<0.01[facility] on above:Order Comment: Specimen Type: BLOOD SPECIMEN [facility] Address: [address] [place], [place] [address]Performed By: #### [id number] #### [facility] CLIA [id number] [address] [place] [address] [place] AMERICANucleated RBC/100 WBC (Bld) [Ratio] 0.0 /100 WBCNormalCCincinnati VA Medical Center on above:Order Comment: Specimen Type: BLOOD SPECIMEN [facility] Address: [address] [place], [place] [address]Performed By: #### [id number] #### [facility] CLIA [id number] [address] [place] [address] [place] AMERICAPlatelet mean volume (Bld) [Entitic vol]10.2 fLNormal9.0-12.7CCincinnati [facility] Center on above:Order Comment: Specimen Type: BLOOD SPECIMEN [facility] Address: [address] [place], [place] [address]Performed By: #### [id number] #### [facility] CLIA [id number] [address] [place] [address] [place] AMERICAPlatelets (Bld) [#/Vol]387 10*3/uL Fmcwzr767-205FrmxeivznHighland District Hospital on above:Order Comment: Specimen Type: BLOOD SPECIMEN [facility] Address: [address] [place], [place] [address]Performed By: #### [id number] #### [facility] CLIA [id number] [address] [place] [address] [place] AMERICARBC (Bld) [#/Vol]4.78 10*6/uLNormal 3.90-5.20[facility] on above:Order Comment: Specimen Type: BLOOD SPECIMEN [facility] Address: [address] [place], [place] [address]Performed By: #### [id number] #### [facility] CLIA [id number] [address] [place], [place] [address]WBC (Bld) [#/Vol]14.19 10*3/uLHigh 3.70-11.00[facility] on above:Order Comment: Specimen Type: BLOOD SPECIMEN [facility] Address: [address] [place], [place] [address]Performed By: #### [id number] #### [facility] CLIA [id number] [address] [place], [place] [address]CNOVon 11-35-4228DDNADjwlct Visit (KLEVER) MARY VICK ([id number]) 1955 F Date Time Provider Department 03/26/25 10:00 AM YENY PARSONS During your visit today, we recorded the following information about you: Yeny Parsons, PhD 03/26/2025 10:23 AM Signed [facility] Disease [facility] [place] Name: Mary Vick MR#: [id number] Date: 03/26/2025 Time: ? hour Referred by: Dr. Bales Reason for Referral: address psychological factors as they can affect post-operative recovery. Information relayed back to referral source via electronic medical record Her chart was reviewed, and she gave her own history. She was seen with her dkldrx-ve-lps. She says she has a h/o bipolar [...] and has been unable to work (at [employer]) for a year due to medical problems [...] could be seen again. Yeny Mace, Ph.D. Allergies As of Date: 03/26/2025 Noted [...] - ALBUTEROL INHALATION Inhale as instructed. - sdiofujbhl-uulicxpr-najmvrxege (BREZTRI AEROSPHERE) 160-9-4.8 mcg/actuation HFA aerosol inhaler [...] (None) Encounter Status:Closed by YENY PARSONS on 03/26/25NormalCMarietta Memorial HospitalComprehensive metabolic 2000 panelon 23-48-1562Jynsxdb [Mass/Vol]4.3 g/dLNormal3.9-4.9CCinc[facility] on above:Order Comment: Specimen Type: BLOOD SPECIMEN [facility] Address: [address] [place], [place] [address]Performed By: #### 39461-7 #### [facility] CLIA [id number] [address] [place] [address] [place] AMERICAALP [Catalytic activity/Vol]79 U/L Ifzvrg53-532XhcdaqaajHighland District Hospital on above:Order Comment: Specimen Type: BLOOD SPECIMEN [facility] Address: [address] [place], [place] [address]Performed By: #### 76238-2 #### [facility] CLIA [id number] [address] [place] [address] [place] AMERICAALT [Catalytic activity/Vol]13 U/L Normal7-38[facility] on above:Order Comment: Specimen Type: BLOOD SPECIMEN [facility] Address: [address] [place], [place] [address]Performed By: #### 42503-0 #### [facility] CLIA [id number] [address] [place] [address] [place] AMERICAAnion gap [Moles/Vol]15 mmol/LNormal 8-15[facility] on above:Order Comment: Specimen Type: BLOOD SPECIMEN [facility] Address: [address] [place], [place] [address]Performed By: #### 83692-2 #### [facility] CLIA [id number] [address] [place] [address] [place] AMERICAAST [Catalytic activity/Vol]22 U/L Cdcokx46-02AyztubowgHighland District Hospital on above:Order Comment: Specimen Type: BLOOD SPECIMEN [facility] Address: [address] [place], [place] [address]Performed By: #### 80223-3 #### [facility] CLIA [id number] [address] [place] [address] [place] AMERICABilirubin [Mass/Vol]0.4 mg/dLNormal 0.2-1.3CCincinnati [facility] Center on above:Order Comment: Specimen Type: BLOOD SPECIMEN [facility] Address: [address] [place], [place] [address]Performed By: #### 46740-3 #### [facility] CLIA [id number] [address] [place] [address] [place] AMERICACalcium [Mass/Vol]10.2 mg/dLNormal 8.5-10.2CCincinnati [facility] Center on above:Order Comment: Specimen Type: BLOOD SPECIMEN [facility] Address: [address] [place], [place] [address]Performed By: #### 22944-0 #### [facility] CLIA [id number] [address] [place] [address] [place] AMERICAChloride [Moles/Vol]100 mmol/LNormal 98-107[facility] on above:Order Comment: Specimen Type: BLOOD SPECIMEN [facility] Address: [address] [place], [place] [address]Performed By: #### 91859-5 #### [facility] CLIA [id number] [address] [place] [address] [place] AMERICACO2 [Moles/Vol]22 mmol/GOhdghp53-06 [facility] on above:Order Comment: Specimen Type: BLOOD SPECIMEN [facility] Address: [address] [place], [place] [address]Performed By: #### 65450-7 #### [facility] CLIA [id number] [address] [place] [address] [place] AMERICACreatinine [Mass/Vol]1.03 mg/dLHigh 0.58-0.96[facility] on above:Order Comment: Specimen Type: BLOOD SPECIMEN [facility] Address: [address] [place], [place] [address]Performed By: #### 16121-9 #### [facility] CLIA [id number] [address] [place] [address] [place] AMERICAeGFRcr SerPlBld CKD-EPI 007425 mL/min/1.73m???Low>=60[facility] on above:Order Comment: Specimen Type: BLOOD SPECIMEN [facility] Address: [address] [place], [place] [address]Result Comment: Estimated Glomerular Filtration Rate (eGFR) is [...] not accurately reflect actual GFR.Performed By: #### 18399-0 #### [facility] CLIA [id number] [address] [place] [address] [place] AMERICAGlucose [Mass/Vol]102 mg/yAKqnv52-21 [facility] on above:Order Comment: Specimen Type: BLOOD SPECIMEN [facility] Address: [address] [place], [place] [address]Result Comment: The [place] [employer] (ADA) provides guidance for cutoff [...] Standards of Medical Care in Diabetes 2016, [place] [employer]. Diabetes Care. 2016.39(Suppl 1).Performed By: #### 07149-6 #### [facility] CLIA [id number] [address] [place] [address] [place] AMERICAPotassium [Moles/Vol]4.8 mmol/L Normal3.7-5.1CCincinnati [facility] on above:Order Comment: Specimen Type: BLOOD SPECIMEN [facility] Address: [address] [address] [place], [place] [address]Performed By: #### [id number] #### [facility] CLIA [id number] [address] [place] [address] [place] OF AMERICAProtein [Mass/Vol]7.6 g/dLNormal 6.3-8.0[facility] on above:Order Comment: Specimen Type: BLOOD SPECIMEN Ordering Facility: [facility] Address: [address] [place], [place] [address]Performed By: #### [id number] #### [facility] CLIA [id number] [address] [place] [address] [place] OF AMERICASodium [Moles/Vol]137 mmol/LNormal 136-144[facility] on above:Order Comment: Specimen Type: BLOOD SPECIMEN Ordering Facility: [facility] Address: [address] [place], [place] [address]Performed By: #### [id number] #### [facility] CLIA [id number] [address] [place] [address] [place] AMERICAUrea nitrogen [Mass/Vol]22 mg/dLHigh 7-[facility] on above:Order Comment: Specimen Type: BLOOD SPECIMEN Ordering Facility: [facility] Address: [address] [place], [place] [address]Performed By: #### [id number] #### [facility] CLIA [id number] [address] [place] [address] [place] OF AMERICAECG COMPLETEon 19-00-1242NZU COMPLETEVentricular Rate : 88 BPM Atrial Rate : 88 BPM P-R Interval : 146 ms QRS Duration : 88 ms Q-T Interval : 364 ms QTC Calculation(Bazett) : 440 ms Calculated P [place] : 6 degrees Calculated R [place] : -7 degrees Calculated T [place] : 34 degrees NORMAL SINUS RHYTHM MINIMAL VOLTAGE CRITERIA FOR LVH, MAY BE NORMAL VARIANT ( [place] product ) INFERIOR MYOCARDIAL INFARCTION , AGE UNDETERMINED ANTERIOR T WAVE ABNORMALITY ABNORMAL ECG Confirmed by SONJA ALANIS MD ([id number]) on 03/29/2025 11:18:55 AM NAME : MARY VICK PID : [id number] : 1955 Gender : Female Race : ORD : [id number] Procedure Date : Mar 26 2025 07:50:44 Edit Date : Mar 29 2025 11:18:58 Diagnosis: NORMAL SINUS RHYTHM MINIMAL VOLTAGE CRITERIA FOR LVH, MAY BE NORMAL VARIANT ( Ric product ) INFERIOR MYOCARDIAL INFARCTION , AGE UNDETERMINED ANTERIOR T WAVE ABNORMALITY ABNORMAL ECG Confirmed by SONJA ALANIS MD ([id number]) on 03/29/2025 11:18:55 AM Test Reason : mov uncontrolled Location : 119 : A17 a17 Overread By : SONJA ALANIS MD Edited By : SONJA ALANIS MD Referred By : JOO BALES Acquired by : Judah MURRAYMarietta Memorial HospitalPT panel Coag (PPP)on 62-11-6341HZQ Coag (PPP) [Relative time]1.0 {INR}Normal0.9-1.3CCincinnati [facility] on above:Order Comment: Specimen Type: BLOOD SPECIMEN Ordering Facility[facility] Address: [address] [place], [place] [address]Result Comment: Vitamin K Antagonist (VKA) Therapeutic Range: INR 2 to 3 (Target INR of 2.5) Note: For patients treated with VKA drugs, such as warfarin, the [place] [employer] 2012 Guideline recommends [...] Chest 2012, 141:7S-47S Shaquille RA, et al. [facility] 2017, 70: 252-289Performed By: #### [id number] #### [facility] CLIA [id number] [address] [place] [address] [place] AMERICAPT Coag (PPP) [Time]10.9 sNormal 9.7-13.0[facility] on above:Order Comment: Specimen Type: BLOOD SPECIMEN Ordering Facility[facility] Address: [address] [place], [place] [address]Performed By: #### [id number] #### [facility] CLIA [id number] [address] [place] [address] OF VAN WERT COUNTY HOSPITALaPTT PPPon 90-21-6047dYHH Coag (PPP) [Time]28.2 bCccakq55.0-32.4CCincinnati [facility] on above:Order Comment: Specimen Type: BLOOD SPECIMEN Ordering [facility] Address: [address] [place], [place] [address]Performed By: #### [id number] #### [facility] CLIA [id number] [address] [place] [address] STATES OF AMERICAHISTORY PHYSICALon 35-51-2764ZEBRYEO PHYSICALHNO ID: [id number] Author: VIRAL HICKS APRN.RUBBER SPLICER Service: ? Author Type: Nurse Practitioner Type: H&P Filed: 03/29/2025 07:30 Note Text: [facility] Pre-Anesthesia [...] RLL base will order CXR preoperatively -CXR completed at OSH, no acute findings. Will repeat CBC prior to surgery - ANESTHESIA FINDINGS: Intubation History: No history of [...] large neck Non-male patient STOP-Bang Score: 4 [id number] Score: CHF history: Yes Hypertension history: Yes Diabetes history: Yes [id number] Score: I - PHYSICAL EVALUATION AIRWAY Patient intubated: No. DENTAL Dentures, upper: complete. Dentures, lower: complete. II - ANESTHESIA PLAN Informed Consent Prepared for Surgery: optimally prepared for surgery, pending [see comment]. TANVERONICA COREA and repeat CBC- @ [facility] CONSULTS: Patient does not require consults for [...] This should be scheduled to be collected no earlier than 29 days before your scheduled procedure. If you receive blood products (red blood cells, platelets, plasma, cryoprecipitate) at any point before your procedure or are a female and become , please inform your provider. This test will be canceled, and a standard type and screen will need to be ordered to be collected within 3 days of your procedure. [facility] or Procedure:: [place] Status of surgery/procedur (more content not included)...NormalCleveland Clinic [facility] Hospitalice Visiton 24-95-9316Creygz-up [id number] Mary Vick Kyree 1955 F Date Provider Department Center 03/04/2025 72310-XSPRPMCRISTHIAN GRIER Family History Problem Relation Age of Onset Cancer Mother Cancer Sister Family Status - Relation Status Age at Mother Father Sister Level of Service:44158 SD OFFICE/OUTPATIENT ESTABLISHED MOD MDM 30 MIN Reason for Visit and Comments: Follow-up [936024] - Patient is here today for a 3 month follow up and surgical clearance for hernia repair. Patient was seen in [facility] ER a month ago due to SOB. Hypertension [107692] Hyperlipidemia [182] Pulmonary Hypertension [818] SVT [Other] Shortness of Breath [306967] - SOB and DAI with and without activityNormal Marion HospitalXR ESOPHAGRAMon 07-97-9573KV ESOPHAGRAM* * *Final Report* * * DATE [...] study was performed by CARLYLE Corbin internal sales engineer, under the supervision of Dr. Saravia, who was present for the critical portion of the exam. Images associated with this study were submitted for interpretation and reviewed by Dr. Saravia. IMPRESSION: LARGE HIATAL HERNIA WITH INTRATHORACIC STOMACH. SMALL VOLUME ASPIRATION. Retread Operator: PSCB Transcribe Date/Time: Feb 28 2025 2:14P Dictated by : CARLYLE CORBIN This examination was interpreted and the report reviewed and electronically signed by: GERMAN SARAVIA MD on Feb 28 2025 3:05PM EST [id number] Lady of [facility] 03-57-7307ZNYX Office Visit (KLEVER) MARY VICK ([id number]) 1955 F Date Time Provider Department 02/21/25 [...] Travis Thacker MD 02/21/2025 12:40 PM Signed [facility] - HISTORY [...] a day. ALBUTEROL INHALATION Inhale as instructed. frmimapqtz-infcmzmh-tszzvnevvf (BREZTRI AEROSPHERE) 160-9-4.8 mcg/actuation HFA aerosol inhaler [...] IMAGING - Reviewed wi (more content not included)...NormalShelby Memorial HospitalTORY PHYSICALon 19-21-9798MQBJVYF PHYSICALHNO ID: [id number] Author: TRAVIS THACKER MD Service: ? Author Type: Physician Type: H&P Filed: 02/21/2025 12:40 Note Text: [facility] - HISTORY AND PHYSICAL Chief Complaint: [...] a day. ALBUTEROL INHALATION Inhale as instructed. nipmqzyxga-aimouvzl-mazzpaycet (BREZTRI AEROSPHERE) 160-9-4.8 mcg/actuation HFA aerosol inhaler [...] weeks prior as well as have her tower watchman perform a preoperative risk stratification. Otherwise she is a candidate for procedure. We discussed that while her early satiety should imp (more content not included)...NormalPomerene HospitalSurgical Pathology Reporton [id number] Pathology ReportSt. Vincent Hospital [address] [facility] [place] [address]- Surgical Pathology Report Collected Date/Time: 02/11/2025 09:40 [...] characteristics were determined by the [facility] Surgical Pathology. They have not been [...] recognition technology and might contain unintended computerized research technologist errors. Microscopic examination performed unless gross only specified. Quality was accessed and acceptable.[facility] HospitalComment on above:Performed By: #### [id number] #### [facility] [address] [place], [place] [address]Fzba OR Intraoperative Recordon 58-78-1830Hbpx OR Intraoperative RecordMain OR Intraoperative Record IntraOp Document Type FT Summary Primary Physician: Sabrina Wilkinson MD Finalized Date/Time: 02/12/25 10:44:07 Pt. Name: MARY VICK/Sex: 1955 Female Med Rec #: [id number] Physician: Sabrina Wilkinson MD Financial #: [id number] Pt. Type: O Room/Bed: / Admit/Disch: 02/11/25 08:15:03 - 02/11/25 23:59:59 Institution: Case Times FT Entry 1 Patient Times In Room 02/11/25 09:24:00 Out Room 02/11/25 09:46:00 Procedure Times Start 02/11/25 09:29:00 Stop 02/11/25 09:42:00 Anesthesia Times Start 02/11/25 09:24:00 Stop 02/11/25 09:46:00 Last Modified By: Lorelei David RN 02/11/25 09:46:43 Case Attendance FT Entry 1 Entry 2 Entry 3 Case Attendee Woo Gil CRNA, RN, Marianna Vickers Role Performed CONSULTING PRACTICE DIRECTOR Centrifugal Casting Machine Tender - Primary Scrub - Primary Time In 02/11/25 09:24:00 02/11/25 09:24:00 02/11/25 09:24:00 Time Out 02/11/25 09:46:00 02/11/25 09:46:00 02/11/25 09:46:00 Procedure EGD(.) EGD(.) EGD(.) Comments supervising Last Modified By: Frankie JARVIS, Lorelei David RN, Lorelei Murdock RN 02/11/25 09:46:44 02/11/25 09:46:44 02/11/25 09:46:44 Entry 4 Entry 5 Case Attendee Jaja GRANT, Sabirna Blackwell RN, Mary Grace Frias Role Performed Surgeon - Primary Staff - Other Time In 02/11/25 09:24:00 02/11/25 09:24:00 Time Out 02/11/25 09:46:00 02/11/25 09:46:00 Procedure EGD(.) EGD(.) Comments help in room Last Modified By: Frankie JARVIS, Lorelei David RN, Lorelei 02/11/25 09:46:44 02/11/25 09:46:44 Perioperative Protocols FT [...] and tissue Entry 1 Skin Integrity Intact, Bartelso, Warm, & Skin Abnormality No Dry Outcomes [...] Device Safety Strap, Pillow (more content not included)...[facility]ark HospitalDischarge Instructionson 57-23-9719Dvjtfqsjx InstructionsDischarge Instructions MARY VICK :1955 Visit Date:02/11/2025 Inpatient Discharge Instructions Your [...] after Discharge Follow Up with Jaja GRANT, Sabrina Cruz, [facility], [facility] When: Comments: Call for any problems. Call for followup appointment. Where: [address] [place] [address], [address] [place] [phone] Medications What How Much When Instructions Next [...] activities are safe for you. ??? Take anoq-zmp-vtkkwrl and prescription medicines only as told by [...] ??? Do not matilda (more content not included)...[facility] Comment on above:Result Comment: Electronically Signed By: Pasquale JARVIS, Denisse\.br\Date and Time Signed: 02/11/2510:21 EDTEGDon 02-11-2025 EsophagogastroduodenoscopyEGD [...] pylori. 3. Normal duodenum. Images Procedure images: Rec_hd_video_2024__T08_56_26_214.jpg Rec_hd_video__T08_56_17_019.jpg Rec_hd_video__T08_55_35_919.jpg Rec1_hd_video_2024__T08_55_25_519.jpg Rec1_hd_video__T08_55_31_307.jpg Rec1_hd_video_2024__T08_50_58_984.jpg Rec1_hd_video__T08_49_43_821.jpg Rec1_hd_video__T08_48_29_579.jpg Rec1_hd_video__T08_47_38_802.jpg Rec1_hd_video__T08_44_30_402.jpg . Post-Procedure Complications: none. Estimated blood loss: minimal. Specimens: sent to pathology. Devices/ implants: none left in place. Impression and Plan large hiatal hernia J-shaped stomach Gastropathy Recommendations: -Resume previous diet -Resume home medications -Await pathology results, follow in GI clinic in 1-2 after dischargeNewark HospitalComment on above:Other Comment: Missing Attachment - attachment storage system not supported [id number] Can be viewed in source system Missing Attachment - attachment storage system not supported [id number] Can be viewed in source systemMissing Attachment - attachment storage system not supported [id number] Can be viewed in source systemMissing Attachment - attachment storage system not supported [id number] Can be viewed in source systemMissing Attachment - attachment storage system not supported [id number] Can be viewed in source systemMissing Attachment - attachment storage system not supported 7537634 Can be viewed in source systemMissing Attachment - attachment storage system not supported 1377991 Can be viewed in source systemMissing Attachment - attachment storage system not supported 9909325 Can be viewed in source system Missing Attachment - attachment storage system not supported 0926723 Can be viewed in source systemMissing Attachment - attachment storage system not supported 0121792 Can be viewed in source systemH&P Updateon [...] list: All Problems Anxiety / SNOMED CT 52804652 / Confirmed Bipolar I disorder / SNOMED CT 5818410065 / Confirmed BMI 35.0-35.9,adult / SNOMED CT 311876857 / Confirmed Chronic obstructive pulmonary disease / SNOMED CT 121108715 / Confirmed Class 3 obesity / SNOMED CT 9749113467 / Confirmed Continuous opioid dependence / SNOMED CT 038589618 / Confirmed Diverticulosis / SNOMED CT 1574156380 / Confirmed Gastroesophageal reflux disease / SNOMED CT 784028283 / Confirmed Hearing loss / SNOMED CT 29496052 / Confirmed Hiatal hernia / SNOMED CT 196542742 / Confirmed Hypercholesterolemia / SNOMED CT 28565100 / Confirmed Hypertension / SNOMED CT 6865806013 / Confirmed Hypothyroidism / SNOMED CT 89034744 / Confirmed Lumbar radiculopathy / SNOMED CT 531549809 / Confirmed Migraine / SNOMED CT 66054919 / Confirmed Osteoporosis / SNOMED CT 614509847 / Confirmed Pulmonary hypertension / SNOMED CT 777344884 / Confirmed Restless leg syndrome / SNOMED CT 85197289 / Confirmed Screening for malignant neoplasm of colon / SNOMED CT 392932226 / Confirmed Sleep apnea / SNOMED CT 265606867 / Confirmed SVT (supraventricular tachycardia) / SNOMED CT 10279273 / Confirmed Weight loss / SNOMED CT 777055506 / Confirmed, Active Problems (22) Anxiety Bipolar [...] of lung Mother Sister Procedure history: Colonoscopy (224788238) on 04/25/2024 at 68 Years. Colonoscopy (939668105) on 03/14/2013 at 57 Years. Tubal ligation (641503182). Appendectomy (301544756). Cataract extraction (03563201). Mandible (849598664). [facility] - Total abdominal hysterectomy and bilateral salpingo-oophorectomy (2725216226). Blepharoplasty (677759352). Dilation and curettage (41287369). Dilation and curettage (45513239). Physical Examination Vital Signs (last 24 hrs) Last Charted Temp Temporal 36.5 DegC (FEB 11 08:) Heart Rate Monitored 75 bpm (FEB 11:35) Resp Rate 19 br/min (FEB 11:) SBP 166 mmHg (FEB 11 09:35) DBP 111 mmHg (FEB 11:35) Weight 81.9 kg (FEB 11 08:28) BMI 33.23 (FEB 11 08:28) General: in Nad Abdomen: Soft, NTND Impression and Plan Diagnosis: HH -EGDNCleveland Clinic Hillcrest HospitalComment on above:Result Comment: Electronically Signed By: Sabrina Wilkinson MD\.br\Date and Time Signed: 02/11/2509:46 EDTMain OR PACU I Recordon 99-68-6739Adac OR PACU I RecordMain OR PACU I Record PACU Phase I Document Type FT Summary Primary Physician: Sabrina Wilkinson MD Finalized Date/Time: 02/11/25 10:51:51 Pt. Name: MARY VICK/Sex: 1955 Female Med Rec #: [id number] Physician: Sabrina Wilkinson MD Financial #: [id number] Pt. Type: O Room/Bed: / Admit/Disch: 02/11/25 [...] Signatures Signed By: Denisse Giordano RN 02/11/25 10:51NoKettering Memorial HospitalMain OR Preoperative Recordon 53-94-7877Axjl OR Preoperative RecordMain OR Preoperative Record Holding Area Document Type FT Summary Primary Physician: Sabrina Wilkinson MD Finalized Date/Time: 02/11/25 08:28:47 Pt. Name: MARY VICK Kyree DuB./Sex: 1955 Female Med Rec #: [id number] Physician: Sabrina Wilkinson MD Financial #: [id number] Pt. Type: O Room/Bed: / Admit/Disch: 02/11/25 [...] Signatures Signed By: Lorelei David RN 02/11/25 08:[address] 78-15-049389Okgasviot lab results from : MD Oumou Martinez [...] Tuesday and again on Tuesday. Orders sent. [facility] HospitalAmbulatory Visit Summaryon 01-31-2025 Ambulatory Visit SummaryAmbulatory [...] signed up for this yet, please contact [employer] at [phone] to get signed up today. Language Information Language assistance services are available as needed. [facility] HospitalGastroenterology Office/Clinic Noteon 23-39-5574Zroeindzmccihfbt Office/Clinic NoteGastroenterology Office/Clinic Note Chief Complaint ref by sara for [facility] Staff NEW, 69 year old female [...] mg daily Obtain CT scan report from [facility] Obtain EGD to evaluate hiatal hernia and [...] Primary malignant neoplasm of lung: Mother and Sister.[facility]ark HospitalComment on above:Result Comment: Electronically Signed By: Jaja GRANT, Sabrina Salguero.br\Date and Time Signed: 01/31/2510:08 EDTOffice Visiton 01-16-2025 Follow-up [id number] Mary Vick 1955 F Date Provider Department Center 01/16/2025 Shabbir-MARVIN SAENZ CARD [facility] Family History Problem Relation Age of Onset Cancer Mother Cancer Sister Family Status - Relation Status Age at Mother Father Sister Level of Service:51846 SD OFFICE/OUTPATIENT ESTABLISHED MOD MDM 30 [facility] HospitalAmb[facility] Summaryon 03-20-2024 Ambulatory Visit SummaryAmbulatory [...] you for choosing us for your care. [facility] HospitalBNPon 93-50-6637Vsnwvanwlke peptide B (Bld) [Mass/Vol]261.0 pg/mLNormal<=900.0The [facility] SystemComment on above:Performed By: #### BNP, HSTROPN, CMP #### [facility] [address] [place], [place] [address] Dr. Deborah MohanLEXINGTON [facility] AUTO DIFFon 26-61-0195BKBB #0.1 103/ulNormal0.0-0.1The [facility] Health SystemComment on above:Performed By: #### CBC ####[facility] [address] [place] [address]Dr.Deborah ChangBasophils/100 WBC (Bld)0.8 %Normal0.2-2.0The [facility] Health SystemComment on above:Performed By: #### CBC ####[facility] J[address] [place], [place] [address]Dr.Ann-Marielan ChangEO #0.2 103/ulNormal0.0-0.7The [facility] Health SystemComment on above:Performed By: #### CBC ####[facility] [address] [place], [place] [address]Dr.Deborah ChangEosinophils/100 WBC (Bld)2.6 %Normal 0.9-7.0The [facility] SystemComment on above:Performed By: #### CBC ####[facility] [address] [place], [place] [address]Dr.Deborah Mohan Erythrocyte distribution width (RBC) [Ratio]20.5 %Critically high11.0-15.0The [facility] SystemComment on above:Performed By: #### CBC ####[facility] F[address] [place], [place] [address]Dr.Ann-Mariemich ChangHematocrit (Bld) [Volume fraction]30.1 %Critically low36.0-48.0The [facility] SystemComment on above:Performed By: #### CBC ####[facility] Sub[address]mus[address] [place], [place] [address]Dr.Deborah ChangHemoglobin (Bld) [Mass/Vol]9.2 g/dL Critically low12.0-16.0The [facility] SystemComment on above:Performed By: #### CBC ####[facility] [address] [place], [place] [address]Dr. Ann-Marielan ChangIG #0.05 10e3/ulCritically high0.00-0.03The [facility] SystemComment on above:Performed By: #### CBC ####[facility] T[address] [place], [place] [address]Dr.Ann-Marielan ChangIG %0.6 %Critically high0.0-0.5The [facility] SystemComment on above:Performed By: #### CBC ####[facility] [address] [place] [address]Dr.Deborah MohanLYMPH #2.0 103/ulNormal1.2-3.8The [facility] SystemComment on above:Performed By: #### CBC ####[facility] [address] [place] [address]Dr. Deborah MohanLymphocytes/100 WBC (Bld)25.9 %Iddldk91.5-60.0The [facility] Comment on above:Performed By: #### CBC ####[facility] [address] [place], [place] [address]Dr.Deborah MohanMANUAL DIFF REQNONormalThe [facility] Health SystemComment on above:Performed By: #### CBC ####[facility] X[address]im[address] [place], [place] [address]Dr.Deborah MarquesMCH (RBC) [Entitic mass]25.7 pgCritically low26.7-34.0The [facility] SystemComment on above:Performed By: #### CBC ####[facility] [address] [place], [place] [address]Dr.Deborah MohanMCHC (RBC) [Mass/Vol]30.6 g/dLNormal 29.9-35.2The [facility] SystemComment on above:Performed By: #### CBC ####[facility] [address] [place], [place] [address]Dr. Deborah MarquesMCV (RBC) [Entitic vol]84.1 gKOkliji37.0-99.0The [facility] Comment on above:Performed By: #### CBC ####[facility] [address]cr[address]adz[address] [place], [place] [address]Dr.Deborah MohanMONO #0.4 103/ulNormal0.3-0.8 The [facility] Health SystemComment on above:Performed By: #### CBC ####[facility] [address]boopw[address] [place], [place] [address]Dr.Ann-Mariemich Mohan Monocytes/100 WBC (Bld)5.6 %Normal1.7-12.0The [facility] SystemComment on above: Performed By: #### CBC ####[facility] [address] [place] [address]Dr.Deborah MohanNEUT #5.0 103/ulNormal1.4-6.5The [facility] Health SystemComment on above:Performed By: #### CBC ####[facility] [address] [place], [place] [address]Dr.Deborah MohanNeutrophils/100 WBC (Bld)64.5 %Mkeuxq28.0-75.0The [facility] Health SystemComment on above:Performed By: #### CBC ####[facility] [address] [place], [place] [address]Dr.Deborah MohanPlatelet mean volume (Bld) [Entitic vol]9.7 fLNormal9.5-13.5 The [facility] SystemComment on above:Performed By: #### CBC ####[facility] [address] [place], [place] [address]Dr.Deborah EkiuvFKJ054 103/xqEhuibb282-163Doc [facility] SystemComment on above:Performed By: #### CBC ####[facility] K[address] [place], [place] [address]Dr. Deborah MohanRBC3.58 106/ulCritically low4.20-5.40The [facility] Health SystemComment on above:Performed By: #### CBC ####[facility] [address] [place], [place] [address]Dr.Deborah MohanWBC7.7 103/ulNormal4.0-11.0The [facility] Health SystemComment on above:Performed By: #### CBC ####[facility] Rhpc[address]kaaw[address] [place], [place] [address]Dr.Deborah MohanCTA CHEST WO W CONon 00-01-1606GEX CHEST WO W CONEXAMINATION: CTA CHEST WO [...] Electronically authenticated by: ROBERT CONDON Date: 2022-09-17 13:18[facility] HospitalD-DIMERon 18-44-2303C-DIMER1.31 mg/L FEUCritically high<=0.59 The [facility] SystemComment on above:Performed By: #### ANARF #### [facility] [address] [place] [address] Dr. Deborah Klein-DIMER COMMENTSSEE BELOWOhioHealth Van Wert Hospitalment on above:Result Comment: Increases in D-Dimer concentration [...] generalized hospitalization. Performed By: #### ANARF #### [facility] [address] [place] [address] [address] Deborah MohanPROKelly 14(COMP METB)on 19-86-6061Vmxkaxb [Mass/Vol]3.3 g/dL Critically low3.4-5.0The [facility] Health SystemComment on above:Performed By: #### BNP, HSTROPN, CMP #### [facility] [address] [place] [address] [address] Deborah MohanAlbumin/Globulin [Mass ratio]1.0 {ratio}NormalThe University Hospitals Health SystemComment on above:Performed By: #### BNP, HSTROPN, CMP #### [facility] [address] [place] [address] Dr. Deborah MalikP [Catalytic activity/Vol]57 U/ATsozyi82-918Edz [facility] SystemComment on above:Performed By: #### BNP, HSTROPN, CMP #### [facility] [address] [place] [address] Dr. Deborah MalikT [Catalytic activity/Vol]23 U/ROqpqah27-20Adu [facility] SystemComment on above:Performed By: #### BNP, HSTROPN, CMP #### [facility] [address] [place] [address] Dr. Deborah MohanAnion gap [Moles/Vol]9.2 mmol/LNormalThe [facility] SystemComment on above:Performed By: #### BNP, HSTROPN, CMP #### [facility] [address] [place] [address] Dr. Deborah MohanAST [Catalytic activity/Vol]17 U/KXntluq14-38For [facility] SystemComment on above:Performed By: #### BNP, HSTROPN, CMP #### [facility] [address] [place] [address] Dr. Deborah MohanBilirubin [Mass/Vol]0.2 mg/dLNormal0.2-1.0The [facility] Comment on above:Performed By: #### BNP, HSTROPN, CMP #### [facility] [address] [place] [address] Dr. Deborah MohanCalcium [Mass/Vol]8.9 mg/dLNormal8.5-10.1The [facility] Comment on above:Performed By: #### BNP, HSTROPN, CMP #### [facility] [address] [place] [address] Dr. Deborah MohanChloride [Moles/Vol]106 mmol/EXffhbd54-654Psk [facility] Comment on above:Performed By: #### BNP, HSTROPN, CMP #### [facility] [address] [address] [address] Deborah MohanCO2 [Moles/Vol]28.3 mmol/RQdngqj01.0-32.0The [facility] Comment on above:Performed By: #### BNP, HSTROPN, CMP #### [facility] [address] [place] [address] Dr. Deborah MohanCreatinine [Mass/Vol]0.97 mg/dLNormal0.55-1.02The [facility] SystemComment on above:Performed By: #### BNP, HSTROPN, CMP #### [facility] [address] [place] [address] Dr. Deborah OrdoñezGFR-AF SOUTH KOREAN>60Normal>=60The [facility] SystemComment on above:Performed By: #### BNP, HSTROPN, CMP #### [facility] [address] [place] [address] Dr. Deborah Acevedo-NON AF VNOHUTBF57 mL/min/1.64d5Dkquadtjsg low>=60[facility] CenterComment on above:Performed By: #### BNP, HSTROPN, CMP #### [facility] [address] [place] [address] Dr. Deborah MohanGlobulin (S) [Mass/Vol]3.4 g/dLNormalThe [facility] SystemComment on above:Performed By: #### BNP, HSTROPN, CMP #### [facility] [address] [place] [address] Dr. Deborah MohanGlucose [Mass/Vol]103 mg/tPVrikmc21-403OufMain Campus Medical Center Comment on above:Performed By: #### BNP, HSTROPN, CMP #### [facility] [address] [place] [address] Dr. Deborah MohanPotassium [Moles/Vol]3.5 mmol/LNormal3.5-5.1The [facility] Comment on above:Performed By: #### BNP, HSTROPN, CMP #### [facility] [address] [address] [address] Deborah MohanProtein [Mass/Vol]6.7 g/dLNormal6.4-8.2[facility] Comment on above:Performed By: #### BNP, HSTROPN, CMP #### [facility] [address] [address] [address] Deborah MohanSodium [Moles/Vol]140 mmol/BHadsqd473-063Ybt [facility] Comment on above:Performed By: #### BNP, HSTROPN, CMP #### [facility] [address] [place] [address] Dr. Deborah MohanUrea nitrogen [Mass/Vol]21.0 mg/dLCritically high7.0-18.0[facility] CenterComment on above:Performed By: #### BNP, HSTROPN, CMP #### [facility] [address] [place] [address] Dr. Deborah Alvarado nitrogen/Creatinine [Mass ratio]21.6 mg/mgNormalThe [facility] SystemComment on above:Performed By: #### BNP, HSTROPN, CMP #### [facility] [address] [place] [address] Dr. Deborah Lovett, HIGH SENSITIVITYon 90-62-2895COQSTB9.0 pg/mLNormal 4.0-51.3The [facility] SystemComment on above:Result Comment: CUT-OFF POINTS HAVE BEEN ESTABLISHED BASED ON THE FOURTH UNIVERSAL DEFINITIONS OF MYOCARDIAL INFARCTION. THE UPPER REFERENCE LIMIT (URL) OF TROPONIN, DEFINED THE 99TH PERCENTILE OF cTnI DISTRIBUTION IN A REFERENCE POPULATION, HAS BEEN CONFIRMED THE DECISION THRESHOLD FOR NE DIAGNOSIS.Performed By: #### BNP, HSTROPN, CMP #### [facility] [address] [place] [address] Dr. Deborah Stokes FREDA DOP LEG BILon [id number] FREDA DOP LEG BILEXAM: US FREDA DOP [...] Electronically authenticated by: RAFIQ RON Date: 2022-09-17 11:54NoMer[facility]iff[facility] HospitalXR CHEST 1 Von 27-77-8052MW CHEST 1 VEXAMINATION: XR CHEST 1 V [...] Electronically authenticated by: ROBERT CONDON Date: 2022-09-17 11:36NoPremier Health [facility] NorthYMPTOMATIC COVID-19 ANTIGENon 60-89-0987ROG StatementSEE BELOW NormalThe [facility] SystemComment on above:Result Comment: This test has not [...] is revoked sooner.Performed By: #### ANARF #### [facility] [address] [place] [address] Dr. Deborah Sotelo-CoV-2 (COVID-19) RNA ERIC+probe Ql (Unsp spec)Positive AbnormalNEGATIVEThe [facility] SystemComment on above:Performed By: #### ANARF #### [facility] [address] [place] [address] Dr. Deborah Armendariz THYROXINE INDEX T7on 59-42-7186RAJ7.97Pucfsd4.30-4.50The [facility] SystemComment on above:Performed By: #### BNP, HSTROPN, CMP #### [facility] [address] [address] [address] Deborah MohanT3U34.0 %Gubnxo54.0-39.0The [facility] SystemComment on above: Performed By: #### BNP, HSTROPN, CMP #### [facility] [address] [place] [address] Dr. Deborah MohanT4 [Mass/Vol]9.70 ug/dLNormal4.80-13.90The [facility] Comment on above:Performed By: #### BNP, HSTROPN, CMP #### [facility] [address] [place] [address] Dr. Deborah Hall 19-00-7287Vqqh [Mass/Vol]14.0 ug/dLCritically low 50.0-170.0The [facility] SystemComment on above:Performed By: #### IRON ####[facility] [address] [address]Dr. Deborah Franks 98-13-7305KWK6.463 uIU/mLNormal0.358-3.740[facility] Comment on above:Performed By: #### ANARF #### [facility] [address] [place] [address] Dr. Deborah Cordova AUTO DIFFon 20-20-6140UXFU #0.1 103/ulNormal0.0-0.1The [facility] SystemComment on above:Performed By: #### ANARF #### [facility] [address] [place] [address] Dr. Deborah MohanBasophils/100 WBC (Bld)0.8 %Normal0.2-2.0[facility] Comment on above:Performed By: #### ANARF #### [facility] [address] [place], [place] [address] Dr. Deborah Garcia #0.3 103/ulNormal0.0-0.7The [facility] SystemComment on above: Performed By: #### ANARF #### [facility] [address] [place] [address] Dr. Deborah Ordoñezosinophils/100 WBC (Bld)2.6 %Normal0.9-7.0The [facility] Comment on above:Performed By: #### ANARF #### [facility] [address] [place] [address] Dr. Deborah Ordoñezrythrocyte distribution width (RBC) [Ratio]19.9 %Critically high 11.0-15.0The [facility] SystemComment on above:Performed By: #### ANARF #### [facility] [address] [place] [address] Dr. Deborah MohanHematocrit (Bld) [Volume fraction]28.8 %Critically low36.0-48.0 The [facility] SystemComment on above:Performed By: #### ANARF #### [facility] [address] [place] [address] Dr. Deborah MohanHemoglobin (Bld) [Mass/Vol]8.9 g/dLCritically low12.0-16.0The [facility] SystemComment on above:Performed By: #### ANARF #### [facility] [address] [place] [address] Dr. Deborah Nguyen #0.07 10e3/ulCritically high0.00-0.03The [facility] Comment on above:Performed By: #### ANARF #### [facility] [address] [place] [address] Dr. Deborah Nguyen %0.7 %Critically high0.0-0.5The [facility] SystemComment on above:Performed By: #### ANARF #### [facility] [address] [place] [address] Dr. Deborah Chapman #1.9 103/ulNormal1.2-3.8The [facility] SystemComment on above:Performed By: #### ANARF ####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 04-70-8441fevjatqejlWKRIFMN TASTALDIFacility:[facility] Start: 02-11-2025 End: 85-98-4925bbvouoncsdDivmvum A. JajaFacility:[facility]ITALtart: 01-31-2025 End: 76-22-0177otrfhatpipNsomtvu A. JajaFacility:[facility] Centerus [facility]ITALtart: 01-31-2025 End: 73-67-7307Wmjqqje encounter procedureMoramón Wilkinson [phone]-PhxqeUniversity Hospitals [facility] Start: 01-29-2025 End: 57-59-1915Cobertrsl encounterClothcrystal Lam OtolaryngologyStart: 83-40-2058psaassymlaNxkdvix MouchliFacility:[facility] Start: 01-24-2025 End: 56-00-2231Amqizj flowsPranavkimidexter Hagan Osorio DO Work Phone: [facility] PulmonologyStart: 01-24-2025 End: 13-89-7538Gplfuv Jesse Ac DO Work Phone: [facility] PulmonologyStart: 01-24-2025 End: 65-60-5376Ihlbvs outpatient new 45 minutesRosalba Hagan Osorio DO Work Phone: noMS Melissa [facility]am PulmonologyComment on above: Chronic obstructive pulmonary disease, unspecified COPD type (HCC) (Primary Dx) Start: 01-24-2025 End: 21-80-5137pqqwnskpasFOACZZ K STRACKNot AvailableStart: 01-16-2025 End: 81-35-1735xbrzsnimjfFGOK [facility] Hospitaltart: 12-10-2024 End: 76-15-5666xtumfaaltcRgqikm Zaynab SalazarmerFacility:[facility]innatitart: 52-58-3358Apu-patient / Non-visitChristopher Dexter Barahona MD- [facility] Work Phone: Start: 10-22-2024 End: 96-96-9605pkmaiinskjFdudljt Tim Goncalveseditis Facility:[facility] Start: 04-25-2024 End: 85-50-8650bqggkikrznHtcllkl R NILLFacility:CD:[id number]: 03-20-2024 End: 59-61-2518dkvnmnzstgZsmwrok HoyFacility:[facility] BellevueStart: 03-20-2024 End: 54-91-9432Jokrekz encounter procedureMichael R NILL [phone]-Wnqhu [facility] [place] Start: 10-05-2022 End: 50-65-8919qrcqqmgyosRZQDPMHXNQTX LAKSHMIPATHY .Facility:A0Veeas: 09-17-2022 End: 74-39-6556qdcmfugffyZV INGRID Ambrocio REINECKFacility:H8Jzuvb: 08-26-2022 ambulatoryNARENDRANATH LAKSHMIPATHY .Facility:G9Auooz: 08-24-2022 End: 28-26-4892grehyjryrgZECGUQ CRAMERFacility:K3Pctqn: 07-08-2022 End: 24-14-0266mpfoploojmDZMU RAMON .Facility:M3Vueaz: 07-06-2022 End: 35-43-5200fjnnrlumcpZZZMDB CRAMERFacility:H3Zkjmq: 06-24-2022 End: 48-96-9058dnwpyzvfvnGSQJ RAMON .Facility:B9Ftoki: 59-06-7130fkwqbzbnmf NATIVIDAD CRAMERFacility:C6Wqvhe: 05-08-2022 End: 11-44-8429ghykxdqchsRYS-C Clarita Barrett Work Phone: [facility] Work Phone: Start: 05-08-2022 End: 02-34-8882Rycwdbc encounter procedureFKAREN-C Clarita Barrett Work Phone: [facility] Start: 04-08-2022 End: 85-39-8651eccxladyqyAJJC RAMON .Facility:Y5Gwdlz: 04-07-2022 End: 81-45-6705lfgbrygjpjMZTGVE CRAMERFacility:M7Jxufe: 03-16-2022 End: 06-89-9826ioxnrqxblnPDFIDI CRAMERFacility:R3Sfitz: 03-12-2022 End: 46-70-7012fbbwcbdpxvRDURSK CRAMERFacility:N6Vjsez: 03-09-2022 End: 42-40-9826xcyupwkgbdEFSSJQ CRAMERFacility:Z6Toasb: 03-05-2022 End: 64-68-7460xgaxuvwywjHINUOQ CRAMERFacility:K2Gycad: 02-28-2022 End: 98-64-7082ljyrnsnfwkUCTTWH CRAMERFacility:G4Coxac: 01-29-2022 End: 59-56-7966dsjrqhdacrNTCJ SOLIS .Facility:U9Trqui: 01-28-2022 End: 85-46-2122mucclfunpvXNTP SOLIS .Facility:M1Iavhd: 11-29-2021 End: 85-56-4813xvlirvphriMGWCSN CRAMERFacility:I0Jwaix: 11-11-2021 End: 57-26-2543qrisnqhimvTI LUISITO UMANA .Facility:I6Cmjoa: 11-05-2021 End: 21-63-6774scyvdbsvqiNRDQ SOLIS .Facility:M7Rivtz: 04-01-2018 End: 97-48-9779Yoegukhfd department patient visitDADARRYL GAINESChelsea Naval Hospitalangelica [facility] Medical Centertart: 12-11-2017 End: 76-96-4501Yyyvmsvsw department patient visitDASTEVE Mendoza SANGRENFacility:[facility] Procedures DateProcedureProcedure DetailPerforming ClinicianStart: 95-45-9270Idkrcasm screenROBERT MATT JRComment on above:Order Comment: Specimen Type: BLOOD SPECIMEN Ordering Facility: [facility] Address: [address] [place], [place] [address]Performed By: #### [id number] #### [facility] CLIA [id number] [address] [place] [address] [place] AMERICAStart: 65-51-7162MffogpiajvdLvtdlyd Mouchli Start: 87-54-2756Zqkgp X-ray of left wristFNP-C Clarita Barrett Work Phone: Start: 67-50-4345W-ray of left ankleFNP-C Clarita Barrett Work Phone: Start: 58-04-1567RN CONSULT TO ORAL SURGERYDARRYL RUSSELLStart: 93-93-7320JkaevcmmfcyHclkxuw NILL AppendectomyMichael NILL BlepharoplastyMichael NILL Bone structure of mandible (body structure)Anderson NILL Dilation and curettageMichael NILL Extraction of cataractMichael NILL Ligation of fallopian tubeMichael NILL Total abdominal hysterectomy with bilateral salpingo-oophorectomyMichael NILL Plan of Treatment DateCare ActivityDetailAuthorStart: 05-07-2025 End: 72-79-9453Tiwcymc encounter wxbltavly40/16/2025 2:00 PM EST Office Visit [facility] [address] [place] [address] Rosalba Ac DO [address] [place] [address] [facility] PulmonologyStart: 01-24-2025 End: 36-22-2831Fviebff encounter sezaqeakh49/04/2025 10:15 AM EDT Consult [facility] [address] [place] [address] Rosalba Ac DO [address] [place] [address] [facility] Comment on above:ArrivedStart: 43-80-8788Ptlopxzog vaccinationInfluenza Vaccine (#1)[facility] HealthcareStart: 01-98-4658Mzfugjrid for malignant neoplasm of breast MammogramNOMS HealthcareStart: 37-51-4724Oierpfbce for malignant neoplasm of colonNOMS Healthcare Immunizations Immunization DateImmunizationNotesCare HeimluxeQqapbtfb11-13-1382gyzvjsuxn virus vaccine, unspecified formulationRosalba Ac DO Work Phone: [facility] Payers DatePayer CategoryPayerPolicy [id number]-pay2024Medicare [id number] (Managed Care)[employer] .[id number] [id number] 2.0.1.487492.3.579.2.79-19-9060Fsiyslq1694525 2..1.474303.3.579.2.51405-69-7342Tuclazk9765924 2.0.1.449116.3.579.2.73764-97-1732Lwxfbtb2182029 2.0.1.250237.3.579.2.28271-19-3865Uomjakr2768992 2.0.1.894333.3.579.2.41958-69-5331Exgcdpk0662912 2.0.1.461551.3.579.2.73525-31-4946Hopajyk2959322 2.840.1.684333.3.579.2.64778-77-1474Xvvrrmt4492575 2.0.1.527447.3.579.2.86212-05-0719Aargcss3339908 2.16.840.1.030788.3.579.2.43126-01-4580Figrmdi9845484 2.16.840.1.194951.3.579.2.70452-69-6005Xxmsqqo2820280 2.16.840.1.431521.3.579.2.39567-05-5629Cxmnsrc0003162 2.16.840.1.630098.3.579.2.33569-19-6598Krpirhy5767158 2.16.840.1.400952.3.579.2.50759-10-7778Obrcfre4843251 2.16.840.1.862282.3.579.2.15664-53-9025Izxafog0795551 2.16840.1.761530.3.579.2.59568-53-8263Untydzz7693118 2.16.840.1.059005.3.579.2.82106-05-3322Bylfyfg9693240 2.16.840.1.239696.3.579.2.61689-39-9619Bpdleww8791047 2.16840.1.182695.3.579.2.86268-32-1968Zsfbdqd0923619 2.16.840.1.334484.3.579.2.61156-95-0349Mcvtncc8255851 2.16.840.1.266462.3.579.2.43055-35-5110Qkoprqa9081404 2.16.840.1.474604.3.579.2.89886-04-9835Ibyvqxg4250924 2.16.840.1.142710.3.579.2.31405-42-2332Shkzpup697664739 2.16.840.1.628402.3.579.2.66783-48-2738Eoxmdxw90045233 2.16.840.1.779152.3.579.2.781950-51-7348Waivfay85905304 2.16.840.1.023989.3.579.2.85190-23-6707Gaulvis10235495 2..0.1.891047.3.579.2.96940-07-1602Dhsgisj13485164 2.16.840.1.550443.3.579.2.26525-72-6870Jebjumk56009567 2.16.840.1.35[id number] 109b2633-5hmi-2w0v-6k40-kla4xmhx2i64XsnnfdjByofej /[id number] 9r582id0-a757-6x4y-4022-ah24sfr87dgiJeuxnbn20759756 2.0.1.358116.3.579.2.531 Social History DateTypeDetailFacilityTobacco smoking status NHISUnknown if ever smokedAvita Health System Work Phone: Start: 92-99-1426Chu Assigned At [facility] Centertart: 03-20-2024 End: 30-36-9556Dynsvsq smoking statusEx-smoker (finding)[facility] HospitalTobacco smoking statusNeverC[facility] Clinic [facility] Hospital Start: 01-20-2024 End: 08-32-2547Upg Assigned At [facility] Hospitaltart: 01-06-2024 End: 08-69-8985Necgarc smoking status NHISNever smoked tobacco (finding) [facility] CincinnatiexFemale (finding)[facility] Cincinnatitart: 97-84-1870Nnovhgv use and exposureSmokeless tobacco non-userNOMS HealthcareStart: 01-20-2024 End: 10-39-0787Hosqerqry beverage intakeLifetime non-drinker (finding)[facility] HealthcareStart: 01-20-2024 End: 65-26-7699Yrobiwq of Social functionNOMS HealthcareStart: 28-21-2446Fab assigned at birthNot on [facility] HospitalSexual OrientationUniversity Hospitals [facility] Functional Status XarbMetlosysdmYmdfgzGoijblqk82-55-4343Coxajvtodj StatusN/KavonCopper [facility] [place] Clinical Notes 11-05-2021 to 03-26-2025 Note Date & [id number] NoteHNO ID: [id number] Author: YENY PARSONS, PhD Service: ? Author Type: Psychologist Type: Progress Notes Filed: 03/26/2025 10:23 Note Text: Behavioral Medicine [facility] Disease [facility] [place] Name: Mary Vick MR#: [id number] Date: 03/26/2025 Time: ? hour Referred by: Dr. Bales Reason for Referral: address psychological factors as they can affect post-operative recovery. Information relayed back to referral source via electronic medical record Her chart was reviewed, and she gave her own history. She was seen with her byotsw-yk-foz. She says she has a h/o bipolar [...] and has been unable to work (at [employer]) for a year due to medical problems [...] she could be seen again. Yeny Mace, Ph.D.[facility]10-13-2025 NoteSUBJECTIVE Reason for Visit: Mary Vick is [...] mg tablet 1 tablet, 2 times daily mlllipqvbf-yqzurwafzzoox-vywl 50-325-40 mg tablet 1 tablet, Every 4 [...] Rate 09/06/2016 60 Atrial Rate 09/06/2016 60 SD Interval 09/06/2016 154 QRS DURATION 09/06/2016 94 QT Interval 09/06/2016 444 QTC CALCULATION(BEZET) 09/06/2016 444 P [place] 09/06/2016 40 R-[place] 09/06/2016 20 T Wave [place] 09/06/2016 39 Diagnosis 09/06/2016 Value:Normal sinus rhythm [...] rhythm Echocardiogram 07/06/2021: Global (more content not included)...[facility] 02-28-2025 NoteHNO ID: [id number] Author: BETHEL DE LA ROSA RT(R) Service: Radiology Author Type: Technologist Type: [...] PATIENT PRESENTS WITH AN IMPLANTABLE OR ATTACHED 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: No RADIOLOGY DEPARTMENT: General X-ray: Exam(s) Completed: GI/ Procedure(s): Esophogram with barium contrast PERIPHERAL IV DATA: Not applicable SIGNED BY: Bethel De La Rosa, RT(R) February 28, 2025 1:41 [facility]10-07-2025 NoteProgress Note-Physician Patient: MARY VICK Age: 69 [...] list: All Problems Anxiety / SNOMED CT 19252451 / Confirmed Bipolar I disorder / SNOMED CT 1104104731 / Confirmed BMI 35.0-35.9,adult / SNOMED CT 586255320 / Confirmed Chronic obstructive pulmonary disease / SNOMED CT 443015006 / Confirmed Class 3 obesity / SNOMED CT 5845401898 / Confirmed Continuous opioid dependence / SNOMED CT 103295783 / Confirmed Diverticulosis / SNOMED CT 7550873094 / Confirmed Gastroesophageal reflux disease / SNOMED CT 507317972 / Confirmed Hearing loss / SNOMED CT 72891484 / Confirmed Hiatal hernia / SNOMED CT 954240207 / Confirmed Hypercholesterolemia / SNOMED CT 93268524 / Confirmed Hypertension / SNOMED CT 7249187901 / Confirmed Hypothyroidism / SNOMED CT 20502328 / Confirmed Lumbar radiculopathy / SNOMED CT 088675135 / Confirmed Migraine / SNOMED CT 26751854 / Confirmed Osteoporosis / SNOMED CT 776412944 / Confirmed Pulmonary hypertension / SNOMED CT 171543907 / Confirmed Restless leg syndrome / SNOMED CT 25111531 / Confirmed Screening for malignant neoplasm of colon / SNOMED CT 494189711 / Confirmed Sleep apnea / SNOMED CT 959024672 / Confirmed SVT (supraventricular tachycardia) / SNOMED CT 79691972 / Confirmed Weight loss / SNOMED CT 652861619 / Confirmed, Active Problems (22) Anxiety Bipolar [...] of lung Mother Sister Procedure history: Colonoscopy ([id number]) on 04/25/2024 at 68 Years. Colonoscopy (688871146) on 03/14/2013 at 57 Years. Tubal ligation (579997701). Appendectomy (684384592). Cataract extraction (45099689). Mandible (779745089). [facility] BSO - Total abdominal hysterectomy and bilateral salpingo-oophorectomy (0648820384). (more content not included)...[facility]:Result Comment: duplicate Electronically Signed By: Rafiq Echols MD02-21-2025 NoteHNO ID: [id number] Author: JOO BALES, ? Service: ? Author [...] She will also be seen by her tower watchman for clearance. UGI ordered. Joo Bales MD [facility]10-[facility]-2025 NoteHNO ID: [id number] Author: ?, ?, ? Service: ? Author [...] Wound: clean AND dry Temperature: No Drains: [facility]09-22-2025 NoteProgress Note-Physician Patient: MARY VICK Age: 69 years Sex: Female : 1955 Associated Diagnoses: None Author: Renzo Stoner Jr., DO Postoperative Information Postoperative disposition: Postoperative disposition: Home. Optimetrix number: Optimetrix number [id number]. Anesthetic utilized: General. Physical Examination Vital Signs [...] to Ambulatory Surgery Unit, and To home ).[facility] CenterComment on above:Result Comment: Electronically Signed By: Renzo Stoner Jr., DO.br\Date and Time Signed: 02/11/25 11:27 [id number] NotePatient Education - Text Gastroenterology Upper Endoscopy, [...] activities are safe for you. ??? Take jtwk-hmn-xvqedkx and prescription medicines only as told by [...] provider. Document Revised: 08/18/2022 Document Reviewed: 08/18/2022 [employer] Patient Education ? 2023 [employer] Hiatal Hernia A hiatal hernia occurs when [...] symptoms. ??? Medicines. These may include: ? Ccxg-dmx-pflpeuh antacids. ? Medicines that make your stomach empty more quickly. ? Medicines that block the production of st (more content not included)...[facility]09-22-2025 NoteProgress Note-Physician Patient: MARY VICK [...] list: All Problems Anxiety / SNOMED CT 12891921 / Confirmed Bipolar I disorder / SNOMED CT 1887486149 / Confirmed BMI 35.0-35.9,adult / SNOMED CT 128522539 / Confirmed Chronic obstructive pulmonary disease / SNOMED CT 131064276 / Confirmed Class 3 obesity / SNOMED CT 0917783474 / Confirmed Continuous opioid dependence / SNOMED CT 797093853 / Confirmed Diverticulosis / SNOMED CT 3391083495 / Confirmed Gastroesophageal reflux disease / SNOMED CT 406129263 / Confirmed Hearing loss / SNOMED CT 74438408 / Confirmed Hiatal hernia / SNOMED CT 551917193 / Confirmed Hypercholesterolemia / SNOMED CT 28227012 / Confirmed Hypertension / SNOMED CT 9475335023 / Confirmed Hypothyroidism / SNOMED CT 15939425 / Confirmed Lumbar radiculopathy / SNOMED CT 796867036 / Confirmed Migraine / SNOMED CT 35011139 / Confirmed Osteoporosis / SNOMED CT 238617029 / Confirmed Pulmonary hypertension / SNOMED CT 717815026 / Confirmed Restless leg syndrome / SNOMED CT 86275588 / Confirmed Screening for malignant neoplasm of colon / SNOMED CT 746526860 / Confirmed Sleep apnea / SNOMED CT 299406059 / Confirmed SVT (supraventricular tachycardia) / SNOMED CT 86134893 / Confirmed Weight loss / SNOMED CT 594933377 / Confirmed Histories Past Medical History: No active or resolved past medical history items have been selected or recorded. Procedure history: Colonoscopy (318990413) on 04/25/2024 at 68 Years. Colonoscopy (995661034) on 03/14/2013 at 57 Years. Tubal ligation (947852558). Appendectomy (464975652). Cataract extraction (09969089). Mandible (958509766). [facility] BSO - Total abdominal hysterectomy and bilateral salpingo-oophorectomy (8629476265). Blepharoplasty (445431962). Dilation and curettage (45635797). Dilation and curettage (37945404). Social History Social & Psychosocial Habits Alcohol 01/31/2025 Risk Assessment: Denies Alcohol Use Substance Abuse 01/31/2025 Risk Assessment: Denies Substance Abuse Tobacco 01/31/2025 Tobacco Use: Former smoker, quit more Smokeless tobacco use: Never Type: Cigarettes Tobacco use per day: 1.5 Started at age: 13.0 Years Stopped at age: 66 Years . Physical Examinat (more content not included)...[facility] Comment on above:Result Comment: Electronically Signed By: Renzo Stoner Jr., DO.br\Date and Time Signed: 02/11/25 09:21 [id number] Telephone encounter Note* Telephone Encounter - Beatrice Reyes MA - 01/29/2025 8:12 AM EDT Mary called stating that the Breztri is 122.00 wanted to know if she could get some more samples. I let her know we will get them together for her she can pick them up this afternoon. She understood. [facility] HospitalRnajeqvaet25-05-0995 Miscellaneous Notes* Telephone Encounter - Beatrice Reyes MA - 01/29/2025 8:12 AM EDT Mary called stating that the Breztri is 122.00 wanted to know if she could get some more samples. I let her know we will get them together for her she can pick them up this afternoon. She understood. documented in this encounterBarton County [facility] HospitalDypxgzmeqk54-97-6267 History of Present illness Narrative* Rosalba Ac DO - 01/24/2025 10:15 AM EDT Images from the original note were not included. Mary Vick presents today for evaluation in regards to COPD and shortness of breath. She wasreferred by her primary care provider. She had been seen by Pulmonary in the past in [place]. She is here to establish care. She [...] on Trelegy in the past by the [facility] accounting manager cpa. However she states that this did not [...] 10 mg in the evening.Take before meals. Onsdzuv-Tokjckeruyp-Zqntgdxedf (Breztri Aerosphere) 160-9-4.8 MCG/ACT aerosol Inhale 2 [...] COPD. Rosalba Ac DO documented in this encounterBarton County Memorial HospitalYjpskymmer00-17-4997 [facility] Chief Complaint: [...] mouth in the morning., Disp: , Rfl: ckdlvtoejq-uknppbdqkhdry-gjtv 50-325-40 mg tablet, Take 1 tablet by [...] No atrial fibrillation Episodes (more content not included)...[facility] 03-20-2024 NoteGeneral Surgery Office/Clinic Note Chief [...] mg= 1 tab(s), Or (more content not included)...[facility] CenterComment on above:Result Comment: Electronically Signed By: SHASHA GRANT, Anderson Quick\Date and Time Signed: 03/20/24 16:53 [id number] Note CONSULTATION PROCEDURE DATE: 07/08/2022 HISTORY OF [...] seen in the clinic in three months.[facility] SystemIsqvzneo51-98-3496 Note CONSULTATION CONSULTATION DATE: 06/24/2022 HISTORY OF PRESENT ILLNESS: This is a 66-year-old female who returns to the clinic for a three month follow up for knee and hip pain. She was last seen on 04/08/2022 which, at that time, she was having some improvement to her knees and her hip. Patient stands for long hours at a time, as she works at [employer]. Current medications include Percocet 5/325 daily, diclofenac [...] seen pending approval for her knee injections.[facility] 04-08-2022 NoteCONSULTATION CONSULTATION DATE: 04/08/2022 HISTORY OF [...] in three months' time unless otherwise indicated.[facility] SystemAwchkwyy76-30-7146 NoteCONSULTATION CONSULTATION DATE: 03/09/2022 CHIEF COMPLAINT: Bilateral [...] would like to proceed. CC: Natividad Silva [facility]09-08-2022 NoteCONSULTATION CONSULTATION DATE: 01/30/2022 HISTORY OF [...] review and re-evaluation of her bursa injection.[facility] SystemJzjxxadc92-62-8006 NoteCONSULTATION PROCEDURE DATE: 01/30/2022 PREOPERATIVE DIAGNOSIS: Left [...] will be followed up in the clinic.[facility] SystemRcliwjrg36-72-0168 NotePROCEDURE: XR HIPS LUANA 3_4V WO PELVIS [...] authenticated by: RAUDEL ESTRADA Date: 2021-11-12 07:50[facility] SystemZcfclgya26-34-7321 NoteCONSULTATION PROCEDURE DATE:11/05/2021 PREOPERATIVE DIAGNOSIS: Bilateral greater [...] and Approved by: JOEL RAMON . 11/18/2021 16:24:00[facility]06-16-2022 NoteCONSULTATION CONSULTATION DATE: 11/05/2021 HISTORY OF PRESENT [...] time, was working half a day at [employer] and since then has increased to full [...] and Approved by: JOEL RAMON . 11/18/2021 16:24:00[facility] + [facility] note No data available for this section [facility] Evaluation + Plan note Future Appointments Appointment Date:02/11/2025 09:15:00 AM Scheduled Provider: Location:[facility] Appointment Type:Surgery FT [facility] Evaluation noteNo assessment information available [facility] Work Phone: Evaluation note* Diagnosis Chronic obstructive pulmonary disease, unspecified COPD type (HCC)- Primary [facility] this encounter [facility] No data available for this section [facility] Progress note No data available for this section [facility] Reason for referral (narrative)No reason for referral information availableUniversity [facility] Work Phone: Summary Purpose [...] and content) DATE CREATED AUTHOR 12/21/2017 [facility] DATE CREATED AUTHOR AUTHOR'S ORGANIZ ATION 05/01/2018 [facility] DATE CREATED AUTHOR AUTHOR'S ORGANIZ ATION 10/06/2022 [facility] DATE CREATED AUTHOR AUTHOR'S ORGANIZ ATION 10/29/2024 [facility] DATE CREATED AUTHOR AUTHOR'S ORGANIZ ATION 12/26/2024 [facility] DATE CREATED AUTHOR AUTHOR'S ORGANIZ ATION 01/26/2025 [facility] DATE CREATED AUTHOR AUTHOR'S ORGANIZ ATION 02/12/2025 [facility] DATE CREATED AUTHOR AUTHOR'S ORGANIZ ATION 02/23/2025 [facility] DATE CREATED AUTHOR AUTHOR'S ORGANIZ ATION 03/01/2025 [facility] DATE CREATED AUTHOR AUTHOR'S ORGANIZ ATION 03/05/2025 [facility] DATE CREATED AUTHOR AUTHOR'S ORGANIZ ATION 04/03/2025 [facility] Care Teams (unrecognized sec tion and content) Team Status: Inactive Member Role Status Dates SILVA Johnson Attending Provider Active Team Status: Active Member Role Status Dates Natividad Silva NP-C Primary Care Provider Active Team Status: Active Member Role Status Dates Natividad Silva NP-C Primary Care Provider Active Start: December 10, 2024 Natividad Silva NP-COt ProviderActiveStart: December 10, 2024 Dima Barahona MDAttending ProviderActiveStart: December 10, 2024 Team MemberRelationshipSpecialtyStart DateEnd Date Natividad Silva MD [address] [place] [address] Referring PhysicianFamily Medicine01/24/25Team MemberRelationshipSpecialtyStart DateEnd Date Natividad Silva MD [address] [place] [address] Referring PhysicianFamily Medicine9/4/25 Goals (unrecognized section and content) Goals may [...] ON THE PRIMARY CLINICAL RECORDS. [facility] [employer] [facility]. provides no warranty or guarantee of the accuracy or completeness of information in this document.
--- OUTSIDE RECORDS SUMMARY | 2025-04-18 22:49 | XMS_ITS | Encounter Summary ---
Author Organization [facility] Address [address] [place] [address] Care Team Providers Care Shop Technician Name Role Phone Jose Burrell Jr. Primary Care Provider Sabrina Felix MD Unavailable [phone] Source Comments In the event this information is protected by the Federal Confidentiality of Alcohol and Drug AbusePatient Records regulations: The Federal rules restrict any use of the information to criminally investigate or prosecute any alcohol or drug abuse patient.[facility] Reason for Visit * ReasonCommentsPreop Update and Labs Encounter Details DateTypeDepartmentCare Team (Latest Contact Info)Hhbrcuhsbso05/07/2025Telephone Pre Anesthesia [address] [phone] Layla Hicks, FASHION SHOW DIRECTOR.HYDRO GENERATION MANAGER [address] [phone] Preop Update and Labs Social History Tobacco UseTypesPacks/DayYears UsedDateSmoking Tobacco: FormerCigarettesPassive Smoke Exposure: NeverSmokeless Tobacco: NeverAlcohol UseStandard Drinks/Week CommentsNever0 (1 standard drink = 0.6 oz pure alcohol)Area Deprivation Index AnswerDate RecordedNational Score (1-100), lower number is lower risk75 02/21/2025State Score (1-10), lower number is lower lrsu876Data from: https://www.neighborhoodatlas.medicine.[facility]/. Last address used for hyijnsqmagf[address]02/21/2025CommentsNoSex and Gender Information ValueDate RecordedSex Assigned at BirthNot on fileLegal RjzJrkadq12/02/2012 9:17 AM ESTGender IdentityNot on fileSexual OrientationNot on filedocumented as of this encounter Miscellaneous Notes * Telephone Encounter - Alysia Goldman RN - 04/04/2025 12:45 PM EST DOS 04/05 CBC completed, WBC is 12.15. Reviewed with PACC provider (Anthony Tay). OK per provider to proceed given they are trending down. No further testing required. Alysia Goldman PACC Resource Nurse April 04, 2025 12:48 PM * Telephone Encounter - Imelda Herman - 04/02/2025 12:48 PM EST DOS 04/05/2025 Spoke to patient, reminded her to complete pre-op lab work that was ordered. She was planning togo the day before surgery. Asked if she is able if she could go tomorrow so the lab results would be back in time for review. Patient stated she can go tomorrow and was familiar with where the [facility] location was located. Imelda Herman (PACC RN) * Telephone Encounter - Layla Hicks APRN.TAYLOR - 03/29/2025 12:10 PM EST Call placed to patient do advise of CXR results. Also made aware she is able to have labs drawn (called and verified with [facility]) at [facility] prior to surgery. Patient verbalizes understanding and will have done before DOS. Layla Hicks APRN, TAYLOR PACC documented in this encounter Plan of Treatment DateTypeDepartmentCare Team (Latest Contact Info)Ardpsxzyskl70/03/2025 11:30 AM ESTOffice Visit General Surgery [address] [address] Sarai Ramos APRN.CNP [address] [place] [phone] Post opdocumented as of this encounter Visit Diagnoses Diagnosis Preoperative examination- Primary Preoperative examination, unspecified documented in this encounter Care Teams Team MemberRelationshipSpecialtyStart DateEnd Date Jose Burrell Jr. [facility]09/07/00 Sabrina Wilkinson MD [address] [place] [address] Gastroenterology02/14/25documented as of this encounter
--- OUTSIDE RECORDS SUMMARY | 2025-04-18 22:49 | XMS_ITS | Encounter Summary ---
Author Organization [facility] Address [address] [place] [address] Care Team Providers Care Fire Patrol Name Role Phone Travis Townsend MD Primary Care Provider Reason for Referral * (Routine) - Pending ReviewSpecialtyDiagnoses / ProceduresReferred By Contact Referred To Contact Diagnoses Paroxysmal atrial fibrillation (CMS/HCC) Procedures ECG 12 lead Kiel Stephens MD [address] [place] [address] Phone: tel: fax: Referral IDStatusReasonStart DateExpiration DateVisits RequestedVisits [id number] Encounter Details DateTypeDepartmentCare Team (Latest Contact Info)Fftjurbrjad67/25/2025Orders Only [facility] at [place] [address] [place] [address] Lyubov, Oumou, KALI Paroxysmal atrial fibrillation (CMS/HCC) (Primary Dx) Social History [...] relatives?Twice a week03/16/2022How often do you attend amish or taoist services?More than 4 times per year2Do you belong to any clubs or organizations such as amish groups, unions, fraternal or athletic groups, or school groups?Yes03/16/2022How often do you attend meetings of the clubs or organizations you belong to?1 to 4 times per year03/16/2022re you , , , , never , or living with a partner?Fnkxxhn5203/16/2022UDIT-CAnswerDate RecordedFrequency of Alcohol ConsumptionNot on file03/16/2022Q2: How [...] and heating?Somewhat hard03/16/2022HQ-2AnswerDate RecordedPatient Health Questionnaire-2 Score0 03/16/2022[facility] [place] of Occupational Health - Occupational Stress QuestionnaireAnswerDate [...] steady place to sleep or slept in [place] (including now)?No03/16/2022UT Safety & EnvironmentAnswer Date RecordedFear of Current or Ex-PartnerNot on file07/14/2023Emotionally AbusedNot on file07/14/2023hysically AbusedNot on file07/14/2023Sexually Abused Not on file07/14/2023hysically or Sexually AbusedNot on file07/14/2023 CommentsUnknownSex and Gender InformationValueDate RecordedSex Assigned at Wmdyov6101/15/2025 10:25 AM EDTLegal EqeNdxqsj95/29/2022 10:16 PM EDTGender AmluzwdhNdvnxx88/26/2025 10:25 AM EDTSexual OrientationHeterosexual or Straight 01/15/2025 10:25 AM EDTdocumented as of this encounter Plan of Treatment DateTypeDepartmentCare Team (Latest Contact Info)Igmvkdwvmno59/18/2025 1:20 PM ESTOffice Visit [facility] at [facility] [address] [place] [phone] Araceli Shanks, HIDES SOAKER [address] [place] [phone] documented as of this encounter Procedures Procedure NamePriorityDate/TimeAssociated DiagnosisCommentsECG 12-LEADRoutine 04/17/2025 11:03 AM EST Paroxysmal atrial fibrillation (CMS/HCC) documented in this encounter Results * ECG 12 lead (04/17/2025 11:03 AM EST) Narrative Authorizing ProviderResult TypeResult StatusPapeter FREEMAN ORDERABLESFinal Result documented in this encounter Visit Diagnoses Diagnosis Paroxysmal atrial fibrillation (CMS/HCC)- Primary Atrial fibrillation documented in this encounter Care Teams Team MemberRelationshipSpecialtyStart DateEnd Date Travis Townsend MD [address] [facility] [address] [address] PCP - Wndffrs97/25/22documented as of this encounter
--- OUTSIDE RECORDS SUMMARY | 2025-04-18 22:49 | XMS_ITS | Clinical Summary ---
Author Organization [employer] Address [id number] [place] [address] Care Team Providers Care Genetic Technologist Name Role Phone Bull Forrest DO Primary Care Provider Allergies Active AllergyReactionsCriticalityNoted DateCommentsSumatriptanOther (See Comments)03/19/2020 Tachycardia [...] standard drink = 0.6 oz pure alcohol)ChildcareAnswerDate IbczdaxjAkptxqwoaSybjwcp59/24/2020Employment AnswerDate LqdckhtkWjcyhrorssNdrsuby25/24/2020Purpose - LifeAnswerDate Recorded Purpose and direction in xjhsIwwaqvj74/11/2021CommentsNoSex and Gender InformationValueDate RecordedSex Assigned at BirthNot on fileLegal SexFemale 12/26/2014 11:49 AM EDTGender IdentityNot on fileSexual OrientationNot on file Last Filed Vital Signs Vital SignReadingTime TakenCommentsBlood Vbyfskkz189/5703 1:30 PM EST Vtndd112807/24/2020 1:30 PM VHHFqsfgurfuaa24.4 ??C (97.6 ??F)07/24/2020 10:41 AM ESTRespiratory Rfys462707/24/2020 1:30 PM ESTOxygen Hdvidolczk96%07/24/2020 1:30 PM ESTInhaled Oxygen Concentration--Abfwam12.5 kg (195 lb)07/24/2020 10:41 AM VKLOueury539.6 cm (5' 6 )07/24/2020 10:41 AM ESTBody Mass Index31.47007/24/2020 10:41 AM EST Plan of Treatment Health MaintenanceDue DateLast DoneCommentsDepression Ucjqlwstj60/09/1966Tobacco Hxltqzgpd76/09/1966Adult BMI Uigvyrozs54/09/1972Zoster (Shingles) Vaccine (2 of 3)Fall Risk Lkhwzjryt23/09/2019COVID-19 Vaccine (3 - season)503/, 07/14/2020Influenza Ugvaqrf39/01/934142/04/2020, 02/19/2019, 02/28/2018, Additional history existsDTaP,Tdap and Td Vaccines (2 - Td or Tdap)RSV ( or age 60+ yrs) (1 - 1-dose 75+ series)2028 Medical Devices ImplantedTypeAreaManufacturerDevice IdentifierShelf Expiration DateModel / Serial / LotLens Iol Ultrasert 23.0d - [id number] - [id number] Implanted:Qty: 1 on 03/27/2020 [facility] [id number] 23.0 / [id number] / NALens Iol Ultrasert 23.0d - [id number] - [id number] Implanted:Qty: 1 on 04/08/2020 by [facility]: [id number] 23.0 / [id number] / NA Insurance Care Teams Team MemberRelationshipSpecialtyStart DateEnd Date Bull Forrest DO [address] [place] [address] PCP - GeneralFamily Xyznlitz57/5/20
--- OUTSIDE RECORDS SUMMARY | 2025-04-18 22:50 | XMS_ITS | Clinical Summary ---
Author Organization 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 Primary Care Provider Sabrina Felix MD Unavailable [phone] Allergies Active AllergyReactionsCriticalityNoted DateCommentsSumatriptanOther: See Shjomwat79/28/2020 Tachycardia fainting Tachycardia fainting Medications MedicationSigDispense QuantityRefillsLast FilledStart DateEnd DateStatus furosemide (LASIX) 20 mg tablet Take 20 mg by mouth two times a day.Active ALBUTEROL INHALATION Inhale as instructed.Active qkizjnuucj-nxhmpgut-pjjnogltxe (BREZTRI AEROSPHERE) 160-9-4.8 mcg/actuation HFA aerosol inhaler Inhale 2 puffs as instructed two times a day.Active dapagliflozin propanediol (FARXIGA) 10 mg tablet Take by mouth daily with breakfast.Active ARIPiprazole (ABILIFY) 30 mg tablet Take 30 mg by mouth once daily.Active FLUoxetine (PROZAC) 20 mg capsule Take 20 [...] 50 mg by mouth daily at bedtime.11/19/2023ctive amoxicillin-clavulanate potassium (AUGMENTIN) 875-125 mg per tablet Take 1 tablet by mouth two times a day.04/10/2025Discontinued phenazopyridine (PYRIDIUM) 200 mg tablet Take 200 mg by mouth three times a day as needed.04/10/2025Discontinued busPIRone (BUSPAR) 10 mg tablet Take 10 mg by mouth three times a day.04/10/2025Discontinued diclofenac-miSOPROStol (ARTHROTEC) 50-200 mg-mcg per tablet Take 1 tablet by mouth two times a day.04/10/2025Discontinued amoxicillin-clavulanate potassium (AUGMENTIN) 875-125 mg per tablet Take 1 tablet by mouth every 12 hours for 13 doses. 13 tablet /Expired acetaminophen (TYLENOL EXTRA STRENGTH) 500 mg tablet Take 1-2 tablets by mouth every 6 hours as needed for pain for up to 5 days. /Expired metoclopramide HCl (REGLAN) 5 mg tablet Take 1 tablet by mouth three times a day for 5 days. 15 tablet Expired oxyCODONE IR (ROXICODONE) 5 mg immediate release tablet Indications:Post-op painTake 1 tablet by mouth every 6 hours as needed for pain for up to 5 days. 12 tablet Expired warfarin (COUMADIN) 5 mg tablet Take 1 tablet by mouth daily as directed. 30 tablet Discontinued Active Problems ProblemNoted DateDiagnosed DateAspiration mgxmzyadm41/19/2025hronic interstitial lung emnbbny1804/10/2025Ileus, yycjedspnmtsu09/17/2025Electrolyte kazvpsylr13/17/2025Malnutrition of mild rhipoa2504/07/2025Paraesophageal hernia 04/05/2025PONV (postoperative nausea and vomiting)04/05/2025Gastroesophageal reflux rbnlhta0004/05/2025hronic renal dylqqceuohrul82/14/2025HF (congestive heart failure)04/05/2025Obesity, Class I, BMI 30-34.9106/05/2024S/P repair of paraesophageal msdxzj0204/05/2025Post-op pain5COPD (chronic obstructive pulmonary disease)04/05/2025PAF (paroxysmal atrial fibrillation)04/05/2025 Supraventricular lcjwmanzndi71/27/2025Acquired qcqagwzcqqgaty57/01/2023Mild pulmonary qmldieevplki96/18/2022Essential tyfdedwhtehw75/22/2017 Encounters DateTypeDepartmentCare SazuXsozehkvyax14/19/2025Orders Only General Surgery [address] [phone] Dominique Ibarra MD Paroxysmal atrial fibrillation (HCC) (Primary Dx)04/05/2025 7:37 AM EST Anesthesia Event Admitting [address] [place] [address] Alessandro Borden MD 04/05/2025 7:30 AM EST - 04/05/2025 10:15 AM ESTSurgery Admitting [address] [place] [address] Joo Bales LAPAROSCOPIC RPR PARAESOPHAGEAL HERNIA W/O FUNDOPLASTY W/ MESH04/05/2025 5:39 AM EST - 04/10/2025 7:24 PM ESTHospital Encounter HOSP MAIN H071 [address] [phone] Joo Bales Preoperative examination [Z01.818], Hiatal hernia [K44.9] Discharge Disposition: Home04/05/20254930Wmdtgj04/07/2025Telephone Pre Anesthesia [address] [place], [place] [phone] Layla Hicks, CHISEL MORTISER OPERATOR.[employer] Preop Update and Labs03/27/2025Telephone Pre Anesthesia [address] [place], [place] [phone] Vivian Brown, MATHEUS Patient Question (Chest Xray question)03/26/2025 10:00 AM ESTOffice Visit General Surgery [address] [phone] Yeny Miranda, PhD Paraesophageal hernia (Primary Dx)03/26/2025 9:00 AM ESTPAT Pre Anesthesia [address] [place], [place] [phone] 13, Pacc Main Paraesophageal hernia (Primary Dx); [...] hemorrhage; PONV (postoperative nausea and vomiting); Preoperative ipcjjdmnchm51/04/2025 8:10 AM ESTProcedure Cardiology [address] [address] 03/26/20255267Kelsac19/09/2025 1:08 PM EDT - 02/28/2025 11:59 PM EDTHospital Encounter Radiology [address] [place] [address] Discharge Disposition: Home02/28/20255836Mtsavh24/03/2025Patient Update [facility] [address] [place] [address] Joo Bales 11.14.25 Cure (Lap Paraesophageal Hernia Repair /EGD 5 hours los 3)02/21/2025 11:20 AM EDTOffice Visit General Surgery [address] [address] Joo Bales Paraesophageal hernia (Primary Dx); Hiatal nhseib7802/14/2025Transcribe Orders Referring Physician [address] [place] [phone] Sabrina Wilkinson MD Hiatal hernia (Primary Dx)from Last 3 Months Family History Medical HistoryRelationCommentsAnesthesia ProblemsNo Family History Social History Tobacco UseTypesPacks/DayYears UsedDateSmoking Tobacco: FormerCigarettesPassive Smoke Exposure: NeverSmokeless Tobacco: Never Tobacco Cessation:Counseling Given: Not Answered Alcohol UseStandard Drinks/WeekCommentsNever0 (1 standard drink = 0.6 oz pure alcohol)Area Deprivation IndexAnswerDate RecordedNational Score (1-100), lower number is lower gpny536102/21/2025State Score (1-10), lower number is lower risk6 02/21/2025Data from: https://www.neighborhoodatlas.medicine.[facility].edu/. Last address used for z[address] 02/21/2025CommentsNoSex and Gender InformationValueDate RecordedSex Assigned at BirthNot on fileLegal Sex Zzkkqr8704/23/2012 9:17 AM ESTGender IdentityNot on fileSexual OrientationNot on file Last Filed Vital Signs Vital SignReadingTime TakenCommentsBlood Mirjodjj393/7004/10/2025 1:13 PM EST Xxmfa397104/10/2025 1:13 PM ZTJTmrgzpjgayx34.6 ??C (97.9 ??F)04/10/2025 1:13 PM ESTRespiratory Ixeh135106/10/2024 1:13 PM ESTOxygen Sozrisrgjh84%04/10/2025 1:13 PM ESTInhaled Oxygen Concentration--Nuoapn80.7 kg (180 lb 1.9 oz)04/05/2025 4:00 PM WLNGmsmtx922.9 cm (5' 1 )04/05/2025 4:00 PM ESTBody Mass Index34.03 04/05/2025 4:00 PM EST Plan of Treatment DateTypeDepartmentCare Team (Latest Contact Info)Qeobrjcksvt76/03/2025 11:30 AM ESTOffice Visit General Surgery [address] [place] [address] Sarai Ramos APRN.[facility] [address] [place] [address] Post opHealth MaintenanceDue DateLast DoneCommentsAnnual PCP Team Chronic Disease Visit07/30/1971Anxiety Otokfxizx55/09/1972Depression Akskilxwe53/09/1972 Hepatitis C Tbtpkygpk55/09/1972Mammogram Ntcbvgxns89/09/1994CT Colonography 1998Cologuard (FIT-DNA)07/29/19984171Mtyyvktgtpi96/09/1999Colorectal Cancer Luiqihzdc53/09/1999Fecal Occult Blood1998Lipid Qpgdvqprn63/09/1999 Jmaltmsilpfsg99/09/1999RSV Vaccine (1 - Risk 60-74 years 1-dose series) 2013one Density Yinmegxau25/09/2019Advance Directive Myssxlbmxa19/01/2025 Medicare Advantage Annual Wellness Visit5Covid-19 Vaccine ( season)512/01/2023, 07/09/2022, 02/12/2022, Additional history exists Influenza Vaccine (#1)501/, 04/30/2023, 02/12/2022, Additional history existsSerum Ahnnpzjzwi10/19/82276906/10/2024, 04/09/2025, 04/08/2025, Additional history existsDiabetes Ilxjprujm71/19/07748406/10/2024, 04/09/2025, 04/08/2025, Additional history existsDTaP,Tdap,Td Vaccine (3 - Td or Tdap) , 04/01/2018Pneumococcal Vaccine: 50+Mxqfecmrw63/14/2025, 09/18/2021, 02/02/2020, Additional history existsShingrix VaccineCompleted 08/31/2024, 07/02/2024, 02/27/2016 Medical Devices ImplantedTypeAreaManufacturerDevice IdentifierShelf Expiration DateModel / Serial / LotMesh Bio-A Synthetic 10x7cm Surgical Reinforcement Hernia Repair - [id number] Implanted:Qty: [facility] [address]MeshN/A: AbdomenW L GORE & ASSOC09/09/[id number] / [id number] / PlatePlateBone - WristBilateral Cataract LensesEye Procedures Procedure NamePriorityDate/TimeAssociated DiagnosisCommentsGLUCOSE, BLOOD (POC) Qbyjvbq4504/10/2025 12:09 PM EST PHOSPHORUS DDYCZZKBYQmwzraq11/19/2025 4:49 AM EST MAGNESIUM KCBPtecsbn48/19/2025 4:49 AM EST CBC + GCTZHlhehct63/19/2025 4:49 AM EST C-REACTIVE PROTEIN (CRP)Vquvbot5604/10/2025 4:49 AM EST BASIC METABOLIC WLZNIGfysiqs33/19/2025 4:49 AM EST GLUCOSE, BLOOD (POC)Mhbghos7904/10/2025 4:48 AM EST GLUCOSE, BLOOD (POC)Ipglvhe6304/09/2025 11:24 PM EST PHOSPHORUS XEGBLLQDCWcqltwr96/18/2025 6:00 PM EST MAGNESIUM XWURynaybq63/18/2025 6:00 PM EST CBC + TIYAMizxejd71/18/2025 6:00 PM EST C-REACTIVE PROTEIN (CRP)Exwhtgp8604/09/2025 6:00 PM EST GLUCOSE, BLOOD (POC)Zpdsbkv3304/09/2025 5:06 PM EST GLUCOSE, BLOOD (POC)Urenofq3204/09/2025 11:46 AM EST PHOSPHORUS CNCFHQTFRTCZR12/18/2025 8:42 AM EST MAGNESIUM PCFZPTO20/18/2025 8:42 AM EST BASIC METABOLIC RMBYPAEAD74/18/2025 8:42 AM EST COMPLETE BLOOD FHWSVEEJE50/18/2025 8:42 AM EST GLUCOSE, BLOOD (POC)Sdaifad4804/09/2025 5:50 AM EST GLUCOSE, BLOOD (POC)Gscvxxj3104/08/2025 11:22 PM EST BASIC METABOLIC URUOYRmqfd92/17/2025 7:43 PM EST C-REACTIVE PROTEIN (CRP)Rpgclon8604/08/2025 7:43 PM EST PHOSPHORUS REDJJJINMCvfpuqy31/17/2025 7:43 PM EST MAGNESIUM IRVTvrxszo40/17/2025 7:43 PM EST CBC + VDNAIoarvcz60/17/2025 7:43 PM EST GLUCOSE, BLOOD (POC)Kyvnxhl4104/08/2025 6:32 PM EST XR ABDOMEN 1V PLOBJZGEKG32/17/2025 1:10 PM EST GLUCOSE, BLOOD (POC)Pshxuga3404/08/2025 11:58 AM EST LVEF TRANSTHORACIC ZNBZDxjcryg95/17/2025 11:00 AM EST BLKGDbjxuiu44/17/2025 11:00 AM EST COMPREHENSIVE METABOLIC UFJOQZhekywo72/17/2025 6:41 AM EST C-REACTIVE PROTEIN (CRP)Xvtzuqm6204/08/2025 6:41 AM EST PHOSPHORUS PFSMBXGVABovgvim31/17/2025 6:41 AM EST MAGNESIUM OHBGzekhqq53/17/2025 6:41 AM EST CBC + TBVPIhgfwzo90/17/2025 6:41 AM EST GLUCOSE, BLOOD (POC)Sapcmup8304/08/2025 5:44 AM EST GLUCOSE, BLOOD (POC)Rrutbaq6604/07/2025 11:17 PM EST GLUCOSE, BLOOD (POC)Zmjluho6404/07/2025 4:48 PM EST IR VASCULAR ACCESS TEAM MIDLINE INSERTION VOGWVPqwluif18/16/2025 12:23 PM EST GLUCOSE, BLOOD (POC)Ewaqlco2704/07/2025 11:[address] ABD/PEL W BZNIJHZTW85/16/2025 11:[address] CHEST W XILRZBHJH74/16/2025 11:22 AM EST XR ABDOMEN 1V ILIAOTRGLI49/16/2025 9:41 AM EST XR ABDOMEN 1V TCDBEXBMVJM24/16/2025 9:30 AM EST XR CHEST 1V FRONTAL TTMXCXPU12/16/2025 8:20 AM EST COMPREHENSIVE METABOLIC LLQKTPlhhomv98/16/2025 7:14 AM EST HIGH SENSITIVITY TROPONIN DGnuwdvh51/16/2025 7:14 AM EST C-REACTIVE PROTEIN (CRP)Vcsnnwl8004/07/2025 7:14 AM EST PHOSPHORUS BFANAPSZLRbdqbdr68/16/2025 7:14 AM EST MAGNESIUM MXUKnxeebt15/16/2025 7:14 AM EST CBC + KHAUNjbpevj02/16/2025 7:14 AM EST GLUCOSE, BLOOD (POC)Ilmxijd0904/07/2025 5:23 AM EST GLUCOSE, BLOOD (POC)Mvvhdlh3304/06/2025 11:24 PM EST GLUCOSE, BLOOD (POC)Cynhuyr8404/06/2025 5:31 PM EST GLUCOSE, BLOOD (POC)Whdlvce1104/06/2025 1:20 PM EST XR UPPER GI SINGLE ELUHDMZTBbbndws74/15/2025 11:20 AM EST HIGH SENSITIVITY TROPONIN JUsznymp98/15/2025 7:14 AM EST C-REACTIVE PROTEIN (CRP)Tcitcub6104/06/2025 7:14 AM EST PHOSPHORUS ABTJEPJQXVvydnyt35/15/2025 7:14 AM EST MAGNESIUM DHVBxawgxs44/15/2025 7:14 AM EST CBC + LLPDQyxmpcz84/15/2025 7:14 AM EST COMPREHENSIVE METABOLIC UMYIFZprftun59/15/2025 7:14 AM EST HIGH SENSITIVITY TROPONIN SBpypomw73/15/2025 7:14 AM EST PHOSPHORUS KDKNHSBXPZUWJ89/14/2025 6:15 PM EST BASIC METABOLIC HPYCAXHGV25/14/2025 6:15 PM EST COMPLETE BLOOD AYZEQEDOG93/14/2025 6:15 PM EST MAGNESIUM TWCCJBU92/14/2025 6:15 PM EST ECG HYQZCKVV57/14/2025 1:53 PM ESTXR CHEST 1V FRONTAL IOLTLVYJ85/14/2025 12:56 PM EST ECG VNWBEPIGVTMQ50/14/2025 12:39 PM ESTGASA + ALL + YFKllrifd88/14/2025 12:36 PM EST GASA + ALL + XIWUZI6804/05/2025 10:07 AM EST ARTL CATHJ/CANNULJ MNTR/TRANSFUSION SPX GBTPmiuuen31/14/2025 8:07 AM EST PERIPHERAL IV AQTLMHDYRZsdtfkr80/14/2025 7:52 AM EST IBNBZUNRLXZsvapxg85/14/2025 7:49 AM EST LAPS RPR PARAESPHGL HRNA INCL FUNDPLSTY W/MESH04/05/2025 7:37 AM EST Preoperative examination Hiatal hernia CONFIRM BLOOD SGNTPHFH30/14/2025 7:05 AM EST EXTERNAL ZCQIEUGGT73/13/2025 11:03 AM EST EXTERNAL LAB04/04/2025 11:03 AM EST TYPE + SCREEN,30 JITPpuyrwp30/12/2025 9:12 AM EST Preoperative examination CBC + PBCSNmzdzfd96/12/2025 9:12 AM EST Paraesophageal hernia Preoperative examination XR OUTSIDE CD DICOM KZDSVF6603/28/2025 ACTIVATED TMRJfzgqni06/04/2025 8:14 AM EST Preoperative examination Hiatal hernia PROTHROMBIN GTZVMerszfd32/04/2025 8:14 AM EST Preoperative examination Hiatal hernia COMPREHENSIVE METABOLIC SGWIJHerkupn78/04/2025 8:14 AM EST Preoperative examination Hiatal hernia CBC + ANGANpciwmt62/04/2025 8:14 AM EST Preoperative examination Hiatal hernia ECG OZAGPGEPCigpxiu37/04/2025 7:50 AM EST Preoperative examination Hiatal hernia XR ENDZIBEGRCPwddtyj18/09/2025 1:41 PM EDT XR OUTSIDE CD DICOM ATDEIA3501/21/2025 CT OUTSIDE CD DICOM TYWGDO2801/21/2025 from Last 3 Months Results * (ABNORMAL) GLUCOSE, BLOOD (POC) (04/10/2025 12:09 PM EST) Only the most recent of17 resultswithin the time period is included. ComponentValueRef RangeTest MethodAnalysis TimePerformed AtPathologist Signature Glucose, Point of Dmfw054(A)74 - 99 mg/dLMercy Health St. Anne HospitalComment: Location:[facility], [address] [place] [address], [facility] The Accu-Chek Inform II glucose meter has [...] StatusLuciano TastaldiPOC TESTINGFinal ResultPerforming OrganizationAddressCity/State/ZIP CodePhone Number [facility] POINT [facility]ARE [address] [phone] [place], [place] * MAGNESIUM (04/10/2025 4:49 AM EST) Only the most recent of8 resultswithin the time period is included. ComponentValueRef RangeTest MethodAnalysis TimePerformed AtPathologist Signature Magnesium2.11.7 - 2.3 mg/dL04/10/2025 7:19 AM EST[facility] Specimen (Source)Anatomical Location / LateralityCollection Method / Volume Collection TimeReceived TimeBloodBLOOD SPECIMEN / UnknownVenipuncture / Unknown 04/10/2025 4:49 AM EST04/10/2025 6:04 AM EST Narrative Authorizing ProviderResult TypeResult StatusLuciano TastaldiLABORATORYFinal ResultPerforming OrganizationAddressCity/State/ZIP CodePhone Number [facility] [place] [address], * (ABNORMAL) PHOSPHORUS INORGANIC (04/10/2025 4:49 AM EST) Only the most recent of8 resultswithin the time period is included. ComponentValueRef RangeTest MethodAnalysis TimePerformed AtPathologist Signature Phosphorus1.9(L)2.7 - 4.8 mg/dL04/10/2025 7:19 AM [facility] LAB Specimen (Source)Anatomical Location / LateralityCollection Method / Volume Collection TimeReceived TimeBloodBLOOD SPECIMEN / UnknownVenipuncture / Unknown 04/10/2025 4:49 AM EST04/10/2025 6:04 AM EST Narrative Authorizing ProviderResult TypeResult StatusLuciano TastaldiLABORATORYFinal ResultPerforming OrganizationAddressCity/State/ZIP CodePhone Number [facility] [address] * (ABNORMAL) COMPLETE BLOOD COUNT AND DIFFERENTIAL (04/10/2025 4:49 AM EST) Only the most recent of8 resultswithin the time period is included. ComponentValueRef RangeTest MethodAnalysis TimePerformed AtPathologist Signature WBC12.02(H)3.70 - 11.00 k/uL04/10/2025 6:43 AM [facility] LABRBC 3.38(L)3.90 - 5.20 m/uL04/10/2025 6:43 AM [facility] LABHemoglobin 9.8(L)11.5 - 15.5 g/dL04/10/2025 6:43 AM [facility] LABHematocrit 31.9(L)36.0 - 46.0 %04/10/2025 6:43 AM [facility] LXIRPX73.480.0 - 100.0 fL04/10/2025 6:43 AM [facility] CBHIJA91.026.0 - 34.0 pg 04/10/2025 6:43 AM [facility] KJGQIRS55.730.5 - 36.0 g/dL 04/10/2025 6:43 AM [facility] LABRDW-CV17.4(H)11.5 - 15.0 % 04/10/2025 6:43 AM [facility] LABPlatelet Pdcwb702607 - 400 k/uL 04/10/2025 6:43 AM [facility] JOOZME16.69.0 - 12.7 fL04/10/2025 6:43 AM [facility] LABNeutrophils %76.2%04/10/2025 6:43 AM [facility] LABAbs Neut9.16(H)1.45 - 7.50 k/uL04/10/2025 6:43 AM [facility] LABLymphocytes %8.5%04/10/2025 6:43 AM [facility] LABAbs Lymph1.021.00 - 4.00 k/uL04/10/2025 6:43 AM [facility] LABMonocytes %7.8%04/10/2025 6:43 AM [facility] LABAbs [place] 0.94(H)<0.87 k/uL04/10/2025 6:43 AM [facility] LABEosinophils %4.2 %04/10/2025 6:43 AM [facility] LABAbs Eosin0.50(H)<0.46 k/uL 04/10/2025 6:43 AM [facility] LABBasophils %0.7%04/10/2025 6:43 AM [facility] LABAbs Baso0.09<0.11 k/uL04/10/2025 6:43 AM [facility] LABImmature Granulocytes %2.6%04/10/2025 6:43 AM [facility] LABAbs Immature Gran0.31(H)<0.10 k/uL04/10/2025 6:43 AM [facility] LABNRBC0.0/100 WBC04/10/2025 6:43 AM [facility] LABAbsolute nRBC<0.01<0.01 k/uL04/10/2025 6:43 AM [facility] LABDiff NaoiWijf39/19/2025 6:43 AM [facility] LAB Specimen (Source)Anatomical Location / LateralityCollection Method / Volume Collection TimeReceived TimeBloodBLOOD SPECIMEN / UnknownVenipuncture / Unknown 04/10/2025 4:49 AM EST04/10/2025 6:04 AM EST Narrative Authorizing ProviderResult TypeResult StatusLuciano TastaldiLABORATORYFinal ResultPerforming OrganizationAddressCity/State/ZIP CodePhone Number [facility] [address] [place] [address], * (ABNORMAL) C-REACTIVE PROTEIN (04/10/2025 4:49 AM EST) Only the most recent of6 resultswithin the time period is included. ComponentValueRef RangeTest MethodAnalysis TimePerformed AtPathologist Signature CRP12.1(H)<0.9 mg/dL04/10/2025 7:19 AM [facility] LABSpecimen (Source)Anatomical Location / LateralityCollection Method / VolumeCollection TimeReceived TimeBloodBLOOD SPECIMEN / UnknownVenipuncture / Jsjmroh3604/10/2025 4:49 AM EST04/10/2025 6:04 AM EST Narrative Authorizing ProviderResult TypeResult StatusLuciano TastaldiLABORATORYFinal ResultPerforming OrganizationAddressCity/State/ZIP CodePhone Number [facility] [address] [place] [address], * (ABNORMAL) BASIC METABOLIC PANEL (04/10/2025 4:49 AM EST) Only the most recent of4 resultswithin the time period is included. ComponentValueRef RangeTest MethodAnalysis TimePerformed AtPathologist Signature Edcwsas458(H)74 - 99 mg/dL04/10/2025 7:19 AM [facility] LAB Comment: The [place] [...] 1). BUN77 - 21 mg/dL04/10/2025 7:19 AM [facility] LABCreatinine0.74 0.58 - 0.96 mg/dL04/10/2025 7:19 AM [facility] OOJUztfpp783495 - 144 mmol/L106/10/2024 7:19 AM [facility] LABPotassium3.6(L)3.7 - 5.1 mmol/L106/10/2024 7:19 AM [facility] TOKZnkhfqxe02494 - 107 mmol/L106/10/2024 7:19 AM [facility] XTYZI09297 - 30 mmol/L 04/10/2025 7:19 AM [facility] LABAnion Gap88 - 15 mmol/L106/10/2024 7:19 AM [facility] LABCalcium, Total7.7(L)8.5 - 10.2 mg/dL 04/10/2025 7:19 AM [facility] LABEstimated Glomerular Filtration Rate87>=60 mL/min/1.73m 04/10/2025 7:19 AM [facility] LABComment:Estimated Glomerular Filtration Rate (eGFR) is calculated [...] VolumeCollection TimeReceived TimeBloodBLOOD SPECIMEN / UnknownVenipuncture / Goedksp8804/10/2025 4:49 AM EST04/10/2025 6:04 AM EST Narrative Authorizing ProviderResult TypeResult StatusLuciano TastaldiLABORATORYFinal ResultPerforming OrganizationAddressCity/State/ZIP CodePhone Number [facility] [address] * (ABNORMAL) COMPLETE BLOOD COUNT (04/09/2025 8:42 AM EST) Only the most recent of2 resultswithin the time period is included. ComponentValueRef RangeTest MethodAnalysis TimePerformed AtPathologist Signature WBC15.56(H)3.70 - 11.00 k/uL04/09/2025 8:55 AM [facility] LABRBC 3.55(L)3.90 - 5.20 m/uL04/09/2025 8:55 AM [facility] LABHemoglobin 10.2(L)11.5 - 15.5 g/dL04/09/2025 8:55 AM [facility] LABHematocrit 32.0(L)36.0 - 46.0 %04/09/2025 8:55 AM [facility] QFWABA07.180.0 - 100.0 fL04/09/2025 8:55 AM [facility] YMLTCV25.726.0 - 34.0 pg 04/09/2025 8:55 AM [facility] MRRLUDG91.930.5 - 36.0 g/dL 04/09/2025 8:55 AM [facility] LABRDW-CV17.2(H)11.5 - 15.0 % 04/09/2025 8:55 AM [facility] LABPlatelet Phkat905782 - 400 k/uL 04/09/2025 8:55 AM [facility] ZJKZOQ10.09.0 - 12.7 fL04/09/2025 8:55 AM [facility] LABAbsolute nRBC<0.01<0.01 k/uL04/09/2025 8:55 AM [facility] LABSpecimen (Source)Anatomical Location / Laterality Collection Method / VolumeCollection TimeReceived TimeBloodBLOOD SPECIMEN / UnknownVenipuncture / Ndnohcq5904/09/2025 8:42 AM EST04/09/2025 8:47 AM EST Narrative Authorizing ProviderResult TypeResult StatusLuciano TastaldiLABORATORYFinal ResultPerforming OrganizationAddressCity/State/ZIP CodePhone Number [facility] [address] [place] [address], [place] * XR ABDOMEN 1V SUPINE (04/08/2025 1:10 [...] colon. Other: Residual contrast in the bladder. Erp Specialist: REE ?? Transcribe Date/Time: Apr 08 2025 [...] image(s). RESULT: See impression. Procedure Note Provider, [facility] - 04/08/2025 * * *Final Report* * [...] colon. Other: Residual contrast in the bladder. Erp Specialist: REE Transcribe Date/Time: Apr 08 2025 1:22P Dictated by : JEANINE ROLON MD This examination was interpreted and the report reviewed and electronically signed by: MAYA GUILLERMO MD on Apr 08 2025 1:51PM EST Authorizing ProviderResult TypeResult StatusJavytanvir BalesRAD-PAMAFinal Result * ECHO (04/08/2025 11:00 AM EST)Specimen (Source)Anatomical Location / LateralityCollection Method / VolumeCollection TimeReceived Time04/08/2025 11:00 AM EST Impressions [facility] [place] - 04/08/2025 12:36 PM EST CONCLUSIONS: - [...] * * * Narrative [facility] [place] - 04/08/2025 12:36 PM EST Echocardiography Report: Transthoracic Echo [facility] [place] Bedside Date of service: 04/08/2025 11:00:19 AM TEACHER Ordering physician: JOO BALES Exam indication: Sustained [...] Performing OrganizationAddressCity/State/ZIP CodePhone Number [facility] [address] [place] [address] * LVEF TRANSTHORACIC ECHO (04/08/2025 11:00 AM EST)ComponentValueRef RangeTest MethodAnalysis TimePerformed AtPathologist SignatureLV Ejection Wjmpmube95% [facility]ASCULAR INSTITUTEComment: (2D biplane) EF > 54 An LV Ejection Fraction of > 50% is normal Specimen (Source)Anatomical Location / LateralityCollection Method / Volume Collection TimeReceived Time04/08/2025 11:00 AM EST Narrative Authorizing ProviderResult TypeResult StatusLuciano TastaldiLVEF RESULTSFinal ResultPerforming OrganizationAddressCity/State/ZIP CodePhone Number [facility] [address] [place] [address] * (ABNORMAL) COMPREHENSIVE METABOLIC PANEL (04/08/2025 6:41 AM EST) Only the most recent of4 resultswithin the time period is included. ComponentValueRef RangeTest MethodAnalysis TimePerformed AtPathologist Signature Protein, Total4.8(L)6.3 - 8.0 g/dL04/08/2025 8:42 AM [facility] LABAlbumin2.7(L)3.9 - 4.9 g/dL04/08/2025 8:42 AM [facility] Calcium, Total7.4(L)8.5 - 10.2 mg/dL04/08/2025 8:42 AM [facility] LABBilirubin, Total0.40.2 - 1.3 mg/dL04/08/2025 8:42 AM [facility] LABAlkaline Llsieglxmhm5910 - 123 U/L106/08/2024 8:42 AM [facility] MEQKFJ0814 - 35 U/L106/08/2024 8:42 AM [facility] CPUVKR939 - 38 U/L106/08/2024 8:42 AM [facility] OEHHrruehf71(L)74 - 99 mg/dL 04/08/2025 8:42 AM [facility] LABComment: The [place] Diabetes [...] 1). BUN87 - 21 mg/dL04/08/2025 8:42 AM [facility] LABCreatinine0.55(L) 0.58 - 0.96 mg/dL04/08/2025 8:42 AM [facility] VCPAnkmyg359396 - 144 mmol/L106/08/2024 8:42 AM [facility] LABPotassium3.5(L)3.7 - 5.1 mmol/L106/08/2024 8:42 AM [facility] VXRWytgnorh52675 - 107 mmol/L106/08/2024 8:42 AM [facility] UEGZD03070 - 30 mmol/L 04/08/2025 8:42 AM [facility] LABAnion Dje219 - 15 mmol/L 04/08/2025 8:42 AM [facility] LABEstimated Glomerular Filtration Rate98>=60 mL/min/1.73m 04/08/2025 8:42 AM [facility] LABComment:Estimated Glomerular Filtration Rate (eGFR) is calculated [...] VolumeCollection TimeReceived TimeBloodBLOOD SPECIMEN / UnknownVenipuncture / Mtaqtgz1304/08/2025 6:41 AM EST04/08/2025 7:05 AM EST Narrative Authorizing ProviderResult TypeResult StatusAlessandro Borden MDLABORATORYFinal ResultPerforming OrganizationAddressCity/State/ZIP CodePhone Number [facility] [address] [phone], * IR VASCULAR ACCESS TEAM MIDLINE INSERTION RADIO (04/07/2025 12:23 PM EST) Anatomical RegionLateralityModalityOther Narrative 04/07/2025 12:23 PM EST Jazz Hull RN 04/07/2025 12:26 PM MIDLINE INSERTION PROCEDURE NOTE - PICC TEAM NURSES DATE OF PROCEDURE: 04/07/2025 TIME OF PROCEDURE: 1223 ORDERING PHYSICIAN: Dominique Ibarra Indications for line placement: Intravenous access Condition of line placement: Sterile Primary Proceduralist: Clare Atwood RN [employer] Supervisor: Jazz Hull RN/ Reji Shrestha RN Pre-procedure [...] Midline Catheter Placement: Brand: ??BARD ?Lot: ?? [id number] Number of lumens: 1 Type of Midline: Power Injectable Midline Lumen size: 4 Turkmen Placement Technique: Lidocaine: Yes, ??Lidocaine 1% ??Volume [...] Given to patient Questions or problems: Page [phone] SIGNATURE: Jazz Hull RN PATIENT NAME: Mary Vick DATE: April 07, 2025 TIME: 12:23 PM PAGER: [phone] Authorizing ProviderResult TypeResult StatusLuciano TastaldiINTERVENTIONAL RADIOLOGYFinal Result * CT ABD/PEL W IVCON (04/07/2025 11:22 AM EST)Anatomical RegionLaterality ModalityAbdomenComputed TomographySpecimen (Source)Anatomical Location / LateralityCollection Method / VolumeCollection TimeReceived Time04/07/2025 11:22 AM EST Impressions 04/07/2025 12:49 PM EST IMPRESSION: EXPECTED POSTOPERATIVE CHANGES FROM HIATAL HERNIA REPAIR. ??NO LOCULATED INTRA-ABDOMINAL FLUID COLLECTION. MILD ILEUS, NOTING THAT CONTRAST REACHES COLON FROM PRIOR UPPER GI STUDY. INTERVAL DECOMPRESSION OF STOMACH STATUS POST NG/OG TUBE PLACEMENT. Erp Specialist: REE ?? Transcribe Date/Time: Apr 07 2025 11:43A Dictated by : NATTY CHAVEZ MD This examination was interpreted and the report reviewed and electronically signed by: ALIA CHANDLER MD on Apr 07 2025 12:47PM ??EST Narrative 04/07/2025 12:49 PM EST * * *Final Report* * * DATE OF EXAM: Apr 07 2025 11:22AM ?? [facility] [place] [facility] [place] 0530 ??- ??CT [...] images: No additional findings. Procedure Note Provider, [facility] - 04/07/2025 * * *Final Report* * * DATE OF EXAM: Apr 07 2025 11:22AM [facility] [place] [facility] [place] 0530 - CT ABD/PEL [...] OF STOMACH STATUS POST NG/OG TUBE PLACEMENT. Erp Specialist: REE Transcribe Date/Time: Apr 07 2025 11:43A [...] greater than right small dependent pleural effusions. Erp Specialist: REE ?? Transcribe Date/Time: Apr 07 2025 ??7:30P Dictated by : JANIA GODOY MD This examination was interpreted and the report reviewed and electronically signed by: JANIA GODOY MD on Apr 07 2025 ??7:42PM ??EST Narrative 04/07/2025 7:44 PM EST * * *Final Report* * * DATE OF EXAM: Apr 07 2025 11:22AM ?? [facility] [place] [place] 0539 ??- ??CT [...] images: No additional findings. Procedure Note Provider, [facility] - 04/07/2025 * * *Final Report* * * DATE OF EXAM: Apr 07 2025 11:22AM [facility] [place] [facility] [place] 0539 - CT CHEST [...] greater than right small dependent pleural effusions. Erp Specialist: REE Transcribe Date/Time: Apr 07 2025 7:30P [...] previously queried. Hypoventilatory changes in lung bases. Erp Specialist: PSCB ?? Transcribe Date/Time: Apr 07 2025 11:06A [...] hours RESULT: See impression. Procedure Note Provider, [facility] - 04/07/2025 * * *Final Report* * [...] as previouslyqueried. Hypoventilatory changes in lung bases. Erp Specialist: REE Transcribe Date/Time: Apr 07 2025 11:06A [...] pleural effusion as well. COMMUNICATION: ??Communicated with Soniajulee [place] on 04/07/2025 11:05 AM ?? via verbal communication. Erp Specialist: REE ?? Transcribe Date/Time: Apr 07 2025 [...] 04/06/2025 RESULT: See impression. Procedure Note Provider, [facility] - 04/07/2025 * * *Final Report* * [...] on 04/07/2025 11:05 AM via verbal communication. Erp Specialist: REE Transcribe Date/Time: Apr 07 2025 11:00A [...] No pneumothorax. Cardiomediastinal silhouette: ??Stable cardiac silhouette. Erp Specialist: REE ?? Transcribe Date/Time: Apr 07 2025 [...] earlier RESULTS: See Impression. Procedure Note Provider, [facility] - 04/07/2025 * * *Final Report* * [...] No pneumothorax. Cardiomediastinal silhouette: Stable cardiac silhouette. Erp Specialist: REE Transcribe Date/Time: Apr 07 2025 10:18A Dictated by : JANIA GODOY MD This examination was interpreted and the report reviewed and electronically signed by: JANIA GODOY MD on Apr 07 2025 10:19AM EST Authorizing ProviderResult TypeResult StatusLuciano TastaldiRAD-PAMAFinal Result * (ABNORMAL) HIGH SENSITIVITY TROPONIN T (04/07/2025 7:14 AM EST) Only the most recent of3 resultswithin the time period is included. ComponentValueRef RangeTest MethodAnalysis TimePerformed AtPathologist Signature RAYNE High Xzzbkgnrmky46(H)<12 ng/L106/07/2024 9:36 AM [facility] Specimen (Source)Anatomical Location / LateralityCollection Method / Volume Collection TimeReceived TimeBloodBLOOD SPECIMEN / UnknownVenipuncture / Unknown 04/07/2025 7:14 AM EST04/07/2025 8:47 AM EST Narrative Authorizing ProviderResult TypeResult StatusJoo BalesLABORATORYFinal ResultPerforming OrganizationAddressCity/State/ZIP CodePhone Number [facility] [address] [place] [address], [place] * XR UPPER GI SINGLE CONTRAST (04/06/2025 [...] on 04/06/2025 11:27 AM via verbal communication. Erp Specialist: JIHANB ?? Transcribe Date/Time: Apr 06 2025 11:23A [...] 0:56 (min:sec). Air kerma: 20.2 mGy. RESULT: Carriage Setter: Moderate gaseous distention of stomach. There are [...] remainder of the procedure. Procedure Note Provider, [facility] - 04/06/2025 * * *Final Report* * [...] 0:56 (min:sec). Air kerma: 20.2 mGy. RESULT: Carriage Setter: Moderate gaseous distention of stomach. There are [...] on 04/06/2025 11:27 AM via verbal communication. Erp Specialist: REE Transcribe Date/Time: Apr 06 2025 11:23A Dictated by : KAYLA TALBOT MD This examination was interpreted and the report reviewed and electronically signed by: ALIA CHANDLER MD on Apr 06 2025 1:28PM EST Authorizing ProviderResult TypeResult StatusLuciano TastaldiRAD-PAMAFinal Result * XR CHEST 1V FRONTAL PORT (04/05/2025 12:56 PM EST)Anatomical RegionLaterality ModalityChestRadiographic ImagingSpecimen (Source)Anatomical Location / LateralityCollection Method / VolumeCollection TimeReceived Time04/05/2025 12:56 PM EST Impressions 04/05/2025 1:07 PM EST IMPRESSION: See result. Erp Specialist: PSCB ?? Transcribe Date/Time: Apr 05 2025 ??1:04P [...] silhouette. ?? Other: ??. Procedure Note Provider, [facility] - 04/05/2025 * * *Final Report* * [...] silhouette. Other: . IMPRESSION IMPRESSION: See result. Erp Specialist: REE Transcribe Date/Time: Apr 05 2025 1:04P Dictated by : LIBERTY FARRIS MD This examination was interpreted and the report reviewed and electronically signed by: LIBERTY FARRIS MD on Apr 05 2025 1:05PM EST Authorizing ProviderResult TypeResult StatusBrrufino Borden MDRAD-PAMAFinal Result * (ABNORMAL) ARTERIAL BLOOD GASES WITH IONIZED MAGNESIUM (04/05/2025 12:36 PM EST) Only the most recent of2 resultswithin the time period is included. ComponentValueRef RangeTest MethodAnalysis TimePerformed AtPathologist Signature pH, Arterial7.32(L)7.35 - 7.45106/05/2024 12:47 PM [facility] pCO2, Wjrwtpdp5899 - 46 mm Hg04/05/2025 12:47 PM [facility] LAB pO2, Ikgafvyb485(H)85 - 95 mm Hg04/05/2025 12:47 PM [facility] LAB Bicarbonate, Dvyatwyj19(L)22 - 26 mmol/L106/05/2024 12:47 PM [facility] LABO2 Saturation, Sjjtxiin0086 - 98 %04/05/2025 12:47 PM [facility] MA[facility] LABBase Deficit, Arterial-5(L)-2 - 0 mmol/L106/05/2024 12:47 PM [facility] LABOxyhemoglobin, Alytejsg4015 - 98 %04/05/2025 12:47 PM [facility] LABCarboxyhemoglobin, Arterial1.10.0 - 2.0 %04/05/2025 12:47 PM [facility] LABComment:Carboxyhemoglobin Reference Range for Smokers: 2.0-8.0%Methemoglobin, Arterial1.00.0 - 1.5 %04/05/2025 12:47 PM [facility] LABSodium, Whole Vkimp656691 - 144 mmol/L106/05/2024 12:47 PM [facility] LABPotassium, Whole Blood4.73.5 - 5.0 mmol/L 04/05/2025 12:47 PM [facility] LABCalcium Ionized, Whole Blood1.10 1.08 - 1.30 mmol/L106/05/2024 12:47 PM [facility] LABCalcium Ionized, pH corrected1.05(L)1.08 - 1.30 mmol/L106/05/2024 12:47 PM [facility] LABGlucose, Whole Oqjen376(H)60 - 105 mg/dL04/05/2025 12:47 PM [facility] LABLactate0.50.5 - 2.2 mmol/L106/05/2024 12:47 PM [facility] LABIonized Magnesium0.470.45 - 0.60 mmol/L106/05/2024 12:47 PM [facility] LABHemoglobin, Whole Blood10.8(L)11.5 - 15.5 g/dL 04/05/2025 12:47 PM [facility] LABHematocrit, Whole Blood33.4(L) 36.0 - 46.0 %04/05/2025 12:47 PM [facility] LABTemperature, Body 37.0C106/05/2024 12:47 PM [facility] HCZFbblih3Mjljck/min04/05/2025 12:47 PM [facility] LABO2 TherapyNC = Nasal Pydymxu3804/05/2025 12:47 PM [facility] LABSpecimen (Source)Anatomical Location / LateralityCollection Method / VolumeCollection TimeReceived TimeBlood, Arterial BLOOD SPECIMEN / Piezawq4504/05/2025 12:36 PM EST04/05/2025 12:45 PM EST Narrative Authorizing ProviderResult TypeResult StatusAlessandro Borden MDBLMARY JO GASESFinal ResultPerforming OrganizationAddressCity/State/ZIP CodePhone Number [facility] [address] [place] [address], * ARTL CATHJ/CANNULJ MNTR/TRANSFUSION SPX PRQ (04/05/2025 8:07 AM EST) Hoda Nayak APRN.SECRETARY BOOK KEEPER - 04/05/2025 8:07 AM EST Hoda Dowling APRN.SECRETARY BOOK KEEPER 04/05/2025 8:48 AM A-Line General Information Procedure Start Time/Medication Administration: 04/05/2025 8:07 AM Procedure End Time: 04/05/2025 8:09 AM Patient location during procedure: OR Timeout Performed Pre-procedure: timeout performed Indications: continuous blood pressure monitoring and blood sampling needed Staffing SECRETARY BOOK KEEPER: Hoda Dowling APRN.SECRETARY BOOK KEEPER Performed by: SECRETARY BOOK KEEPER Preparation Sterility Preparation: hand hygiene performed prior [...] procedure well with no complications Authorizing ProviderResult TypeResult StatusBrrufino Borden MDANESTHESIA ORDERABLESFinal Result * PERIPHERAL IV PLACEMENT (04/05/2025 7:52 AM EST) Hoda Nayak APRN.SECRETARY BOOK KEEPER - 04/05/2025 7:52 AM EST Hoda Dowling APRN.SECRETARY BOOK KEEPER 04/05/2025 8:47 AM PIV General Information Procedure [...] ??Antecubital Imaging Guidance Used: ??No Authorizing ProviderResult TypeResult Scott DELGADO ORDERABLESFinal Result * Airway (04/05/2025 7:49 AM EST) Narrative Hoda Dowling APRN.SECRETARY BOOK KEEPER - 04/05/2025 7:49 AM EST Hoda Dowling APRN.SECRETARY BOOK KEEPER 04/05/2025 8:46 AM Airway General Information Procedure Start Time/Medication Administration: 04/05/2025 7:49 AM Procedure End Time: 04/05/2025 7:50 AM Patient location during procedure: OR Timeout Performed Pre-procedure: timeout performed Consent Obtained: Yes Patient identity confirmed: arm band Staffing Anesthesiologist: Alessandro Borden MD SECRETARY BOOK KEEPER: Hoda Dowling APRN.SECRETARY BOOK KEEPER Performed by: anesthesiologist and SECRETARY BOOK KEEPER Indications and Patient Condition Indications for airway management: anesthesia Preoxygenated: yes ? anesthesia circuit Patient position: sniffing Method: rapid sequence Cricoid Pressure: Yes Manual In-Line Stabilization: No Difficult Mask: No Final Airway Details Final airway type: endotracheal airwayFinal Endotracheal Airway: ETT Cuffed: yes Successful intubation technique: video laryngoscopy Devices used: TeachScape Endotracheal tube insertion site: oral Blade: Nino Blade size: #3 ETT size (mm): 7.0 Measured from: lips Measurement (cm): 22 Placement verified by: capnometry Cormack-Lehane Classification: grade I - full view of glottis Number of attempts at approach: 1 Failed airway: no Unrecognized esophageal intubation: no Airway not difficult Authorizing ProviderResult TypeResult Scott DELGADO ORDERABLESFinal Result * CONFIRM BLOOD TYPE (04/05/2025 7:05 AM EST)ComponentValueRef RangeTest Method Analysis TimePerformed AtPathologist AiegfulogLQUQ73/14/2025 9:20 AM EST [facility] LABRh(D)Rcqdrlmc31/14/2025 9:20 AM [facility]BL[facility] LABSpecimen (Source)Anatomical Location / LateralityCollection Method / VolumeCollection TimeReceived TimeBloodBLOOD SPECIMEN / UnknownVenipuncture / Rhzqmty6104/05/2025 7:05 AM EST04/05/2025 7:31 AM EST Narrative Authorizing ProviderResult TypeResult StatusLuciano TastaldiBLOOD BANKFinal ResultPerforming OrganizationAddressCity/State/ZIP CodePhone Number [facility] [address] [place] [address], * EXTERNAL PROCEDURE (04/04/2025 11:03 AM EST) Narrative Authorizing ProviderResult TypeResult StatusExternal Provider PA-CPROCEDUREFinal Result * EXTERNAL LAB (04/04/2025 11:03 AM EST) Narrative Authorizing ProviderResult TypeResult StatusExternal Provider PA-CLABORATORY Final Result * TYPE AND SCREEN,30 DAY (04/03/2025 9:12 AM EST)ComponentValueRef RangeTest MethodAnalysis TimePerformed AtPathologist KcrprlzfkXWKN56/12/2025 5:51 PM EST [facility] LABRh(D)Gzebclws85/12/2025 5:51 PM [facility]BL[facility] LABAntibody NvvkciFiidnlgr44/12/2025 5:51 PM [facility]BL[facility] Specimen (Source)Anatomical Location / LateralityCollection Method / Volume Collection TimeReceived TimeBloodBLOOD SPECIMEN / UnknownVenipuncture / Chwtfqj7404/03/2025 9:12 AM EST04/03/2025 9:12 AM EST Narrative Authorizing ProviderResult TypeResult StatusMegan Kurt CHISEL MORTISER OPERATOR.CNPBLOOD BANK Final ResultPerforming OrganizationAddressCity/State/ZIP CodePhone Number [facility] [address] [phone], * OT-XR CHEST 2V IMPORT (03/28/2025)Anatomical RegionLateralityModalityOther Specimen (Source)Anatomical Location / LateralityCollection Method / Volume Collection TimeReceived Time03/28/2025 Narrative 03/29/2025 2:42 AM EST Images were obtained outside of [facility] Procedure Note Provider, [facility] - 03/29/2025 Images were obtained outside of [facility] Authorizing ProviderResult TypeResult StatusCcf ProviderRADIOLOGYFinal Result * PROTHROMBIN TIME (03/26/2025 8:14 AM EST)ComponentValueRef RangeTest Method Analysis TimePerformed AtPathologist SignaturePT Sec10.99.7 - 13.0 sec 03/26/2025 8:58 AM [facility] LABINR1.00.9 - 1.311 8:58 AM [facility] LABComment: Vitamin K Antagonist (VKA) Therapeutic Range: INR 2 to 3 (Target INR of 2.5) Note: For patients treated with VKA drugs, such as warfarin, the [place] [employer] 2012 Guideline recommends [...] 2.5 to 3.5 (target INR of 3). Piotryatt GH, et al. Chest 2012, 141:7S-47S Shaquille RA, et al. JACC 2017, 70: 252-289 Specimen (Source)Anatomical Location / LateralityCollection Method / Volume Collection TimeReceived TimeBloodBLOOD SPECIMEN / UnknownVenipuncture / Unknown 03/26/2025 8:14 AM EST03/26/2025 8:14 AM EST Narrative Authorizing ProviderResult TypeResult StatusLuciano TastaldiLABORATORYFinal ResultPerforming OrganizationAddressCity/State/ZIP CodePhone Number [facility] [address] * ACTIVATED PARTIAL THROMBOPLASTIN TIME (03/26/2025 8:14 AM EST)ComponentValue Ref RangeTest MethodAnalysis TimePerformed AtPathologist PmqvpzqfyGXGW32.223.0 - 32.4 sec03/26/2025 8:58 AM [facility] LABSpecimen (Source) Anatomical Location / LateralityCollection Method / VolumeCollection Time Received TimeBloodBLOOD SPECIMEN / UnknownVenipuncture / Hrbffgi3003/26/2025 8:14 AM EST03/26/2025 8:14 AM EST Narrative [facility] - 03/26/2025 8:58 AM EST Unfractionated [...] of laboratory APTT reagentin use throughout the [facility]. Authorizing ProviderResult TypeResult StatusLuciano TastaldiLABORATORYFinal ResultPerforming OrganizationAddressCity/State/ZIP CodePhone Number [facility] [address] [place] [address], * ECG COMPLETE (03/26/2025 7:50 AM EST)ComponentValueRef RangeTest Method Analysis TimePerformed AtPathologist SignatureVentricular Typv95IJOUARCJ AND VASCULAR INSTITUTEAtrial Zgjd89LNUHQHRP AND VASCULAR INSTITUTEP-R Aamzknry561 msHEART AND VASCULAR INSTITUTEQRS Occssviu78dzQELET AND VASCULAR INSTITUTEQT Yeilvtaf646abEOSLC AND VASCULAR INSTITUTEQTC Calculation (Bazett)440msHEART AND VASCULAR INSTITUTECalculated P Cldc5jbbggehYDMRU AND VASCULAR INSTITUTE Calculated R Beatty-7degreesHEART AND VASCULAR INSTITUTECalculated T Axis34 degreesHEART AND VASCULAR INSTITUTESpecimen (Source)Anatomical Location / LateralityCollection Method / VolumeCollection TimeReceived Time03/26/2025 7:50 AM EST Impressions [facility] - 03/29/2025 11:18 AM EST NORMAL SINUS RHYTHM MINIMAL VOLTAGE CRITERIA FOR LVH, MAY BE NORMAL VARIANT ( Fernley product ) INFERIOR MYOCARDIAL INFARCTION , AGE UNDETERMINED ANTERIOR T WAVE ABNORMALITY ABNORMAL ECG Confirmed by SONJA ALANIS MD ([id number]) on 03/29/2025 11:18:55 AM Narrative [facility] - 03/29/2025 11:18 AM EST NAME : MARY VICK PID : [id number] : 1955 Gender : Female Race : ORD : [id number] Procedure Date : Mar 26 2025 07:50:44 Edit Date : Mar 29 2025 11:18:58 Diagnosis: NORMAL SINUS RHYTHM MINIMAL VOLTAGE CRITERIA FOR LVH, MAY BE NORMAL VARIANT ( Fernley product ) INFERIOR MYOCARDIAL INFARCTION , AGE UNDETERMINED ANTERIOR T WAVE ABNORMALITY ABNORMAL ECG Confirmed by SONJA ALANIS MD ([id number]) on 03/29/2025 11:18:55 AM Test Reason : mov uncontrolled Location : 119 : A17 ??a17 Overread By : SONJA ALANIS MD Edited By : SONJA ALANIS MD Referred By : JOO BALES Acquired by : KWABENA MURRAY Authorizing ProviderResult TypeResult StatusLuctanvir BalesEKGFinal Result Performing OrganizationAddressCity/State/ZIP CodePhone Number [facility] [address] [place], [place] [phone] * XR ESOPHAGRAM (02/28/2025 1:41 PM EDT)Anatomical RegionLateralityModalityChest Radiographic ImagingSpecimen (Source)Anatomical Location / Laterality Collection Method / VolumeCollection TimeReceived Time02/28/2025 1:41 PM EDT Impressions 02/28/2025 3:07 PM EDT IMPRESSION: LARGE HIATAL HERNIA WITH INTRATHORACIC STOMACH. SMALL VOLUME ASPIRATION. Erp Specialist: REE ?? Transcribe Date/Time: Feb ??2024 ??2:14P [...] The study was performed by CARLYLE Francis applications intern, under the supervision of Dr. Saravia, who was present for the critical portion of the exam. ?? Images associated with this study were submitted for interpretation and reviewed by Dr. Saravia. Procedure Note Provider, [facility] - 02/28/2025 * * *Final Report* * [...] The study was performed by CARLYLE Francis applications intern, under the supervision of Dr. Saravia, who was present for the critical portion of the exam. Images associated with this study were submitted for interpretation and reviewed by Dr. Saravia. IMPRESSION IMPRESSION: LARGE HIATAL HERNIA WITH INTRATHORACIC STOMACH. SMALL VOLUME ASPIRATION. Erp Specialist: PSCB Transcribe Date/Time: Feb 28 2025 2:14P [...] AM EDT Images were obtained outside of [facility] Procedure Note Provider, [facility] - 02/19/2025 Images were obtained outside of [facility] Authorizing ProviderResult TypeResult StatusCcf ProviderRADIOLOGYFinal Result * CT-CT ANGIO CHEST IMPORT (01/21/2025)Anatomical RegionLateralityModalityOther Specimen (Source)Anatomical Location / LateralityCollection Method / Volume Collection TimeReceived Time01/21/2025 Narrative 02/19/2025 11:41 AM EDT Images were obtained outside of [facility] Procedure Note Provider, [facility] - 02/19/2025 Images were obtained outside of [facility] Authorizing ProviderResult TypeResult StatusCcf ProviderRADIOLOGYFinal Result from Last [address] [address] MemberSubscriberPlan / Payer (Effective 2024-Present)Name:Mary Vick Relation to Subscriber:SelfName:Mary Vick Payer ID:[id number] (NAIC) Group ID:[id number] Type:HMO Address: [address] [phone] Care Teams Team MemberRelationshipSpecialtyStart DateEnd Date Jose Burrell Jr. PCP - [facility]09/07/00 Sabrina Wilkinson MD [address] [place] [id number] Gastroenterology02/14/25
--- OUTSIDE RECORDS SUMMARY | 2025-04-18 22:50 | XMS_ITS | Patient Health Record ---
Author Organization [facility] in [place] Address [address] [place] [address] Care Team Providers Care Fertilizer Mixer Name Role Phone Natividad Silva Primary Care Provider José Townsend [phone] Allergies Allergen (clinical drug ingredient) Drug/Non Drug Allergy documented on EMR Reaction Allergy Type Onset Date Status sumatriptan Imitrex dizziness/fainted Drug Allergy Active Results Component Value Reference Range Notes XR chest 2V Reviewed date:03/28/2025 02:35:58 PM Interpretation: Performing Lab: Notes/Report: Source Facility: [place] [address] XRay Report Signed Patient: MARY VICK MR#: [id number] : 1955 Acct:[id number] Age/Sex: 69 / F ADM Date: 03/28/25 Loc: ALEX Attending Dr: Non-Staff Physician M.DAnkur Ordering Physician: PhysicianNon-Staff Liudmila Date of Service: 03/28/25 Procedure(s): XR chest 2V Accession Number(s): [id number] cc: NATIVIDAD SILVA ; PhysicianNon-Staff Liudmila [place] [address] Patient Name: MARY VICK MRN: [id number]:[id number] date: 1955 Sex: F Assigned Patient Location: RAD Current Patient Location: RAD Accession/Order Number: [id number] Exam Date: 03/28/2025 08:10 Report Date: 03/28/2025 10:33 At the request of: NON-STAFF PHYSICIAN Procedure: XR chest 2V PA AND LATERAL CHEST: CLINICAL 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 Continued interstitial changes are seen. There is mild lower lobe atelectasis or scarring. There is no developing consolidation, effusion or pneumothorax. The cardiac, hilar and mediastinal silhouettes are unchanged including a large air-containing hiatal hernia. There is no vascular congestion. The visualized bony structures are osteopenic. There is kyphosis secondary to compression fracture at T10. There are mild degenerative changes. XR/XR chest 2V IMPRESSION: HIATAL HERNIA. CONTINUED INTERSTITIAL CHANGES WITH SCARRING AND/OR ATELECTASIS. NO OTHER ACUTE FINDINGS Impression dictated by: Alysia Avina M.D. 03/28/2025 10:33 AM Dictation Location: [place] [address] Electronically authenticated by: [id number] Y Date: 03/28/2025 10:33 Dictated By: Alysia Avina M.D. Signed By: 03/28/25 1035 DD/ 1033 TD/TT: Cellular Equipment Installer: CT lung screening low-dose Reviewed date:10/25/2024 11:04:31 AM Interpretation: Performing Lab: Notes/Report: Source Facility: [place] [address] CT Scan Report Signed Patient: MARY VICK MR#: [id number] : 1955 Acct:[id number] Age/Sex: 69 / F ADM Date: 10/23/24 Loc: CT Attending Dr: NATIVIDAD SILVA Ordering Physician: NATIVIDAD SILVA Date of Service: 10/23/24 Procedure(s): CT lung screening low-dose Accession Number(s): [id number] cc: NATIVIDAD SILVA [place] [address] Patient Name: MARY VICK MRN: [id number] date: 1955 Sex: F Assigned Patient Location: CT Current Patient Location: Accession/Order Number: [id number] Exam Date: 10/23/2024 15:17 Report Date: 10/24/2024 [...] Mendez M.D. 10/24/2024 12:10 AM Dictation Location: [email or web address] Electronically authenticated by: [id number] Y Date: 10/24/2024 00:10 Dictated By: Ghanshyam Mendez D.O. Signed By: 10/24/24 0013 DD/ 001 TD/TT: Cellular Equipment Installer: PROF Cain(COMP METB) Reviewed date:06/06/2024 09:21:21 AM Interpretation: Performing Lab: Notes/Report: [facility] , Sodium 142 136-145 mmol/L Potassium4.03.5-5.1 mmol/NMvcrjgqn07733-358 mmol/LCarbon Vdnqsvq62.921.0-32.0 mmol/LAnion Gap13.0Ebwsrbl8779-097 mg/dLBlood Urea Tnqqrwjd98.07.0-18.0 mg/dL Creatinine1.080.55-1.02 mg/dLEstimated GFR ( Cheyanne>60>=60 mL/min/1.73m 2Estimated GFR (Non- Ame50>=60 mL/min/1.73m 2BUN Creatinine Ratio13.9 Calcium8.68.5-10.1 mg/dLBilirubin Total0.30.2-1.0 mg/dLAspartate Amino Lwqgxjnvtrc8422-37 U/LAlanine Quwktcilobvoelyp8289-63 U/LAlkaline Rbhyqbpdxnz07 46-116 U/LTotal Protein6.66.4-8.2 g/dLAlbumin Level3.33.4-5.0 g/dLGlobulin3.3 Albumin Globulin Ratio1.0Performing Lab:see noteML - [facility] LB Prothrombin Time INR Reviewed date:06/06/2024 09:21:21 AM Interpretation: Performing Lab: Notes/Report: [facility] ,Prothrombin Time10.49.0-11.6 secINR0.98 DESIRED INR: 2.0-3.0 CONDITIONS NOT LISTED BELOW 2.5-3.5 FOR PROSTHETIC HEART VALVE REPLACEMENT 2.5-3.5 RECURRENT THROMBOSIS Performing Lab:see noteML - [facility] LBCBC AUTO DIFF Reviewed date:06/12/2024 04:07:12 PM Interpretation: Performing Lab: Notes/Report: [facility] ,White Blood Count9.14.0-11.0 10 3/uLRed Blood Count4.174.20-5.40 10 6/uL Rsalunttdt91.912.0-16.0 g/yXNukrgthczi34.336.0-48.0 %Mean Corpuscular Biuplb69.4 81.0-99.0 fLMean Corpuscular Ceafjmbcfw74.526.7-34.0 pgMean Corpuscular HGB Conc 31.929.9-35.2 g/dLRed Cell Distribution Width15.811.0-15.0 %Platelet Kguvi527 150-450 10 3/uLMean Platelet Csxusr29.39.5-13.5 fLNeutrophils Percent Auto70.5 43.0-75.0 %Lymphocytes Percent Auto18.820.5-60.0 %Monocytes Percent Auto7.01.7- 12.0 %Eosinophils Percent Auto2.80.9-7.0 %Basophils Percent Auto0.70.2-2.0 % Immature Granulocytes Pct Auto0.20.0-0.5 %Neutrophils Absolute Auto6.41.4-6.5 10 3/uLLymphocytes Absolute Auto1.71.2-3.8 10 3/uLMonocytes Absolute Auto0.60.3-0.8 10 3/uLEosinophils Absolute Auto0.30.0-0.7 10 3/uLBasophils Absolute Auto0.10.0- 0.1 10 3/uLImmature Granulocytes Abs Auto0.020.00-0.03 10 3/uLPerforming Lab:see noteML - [facility] LBECG 12 lead Reviewed date:06/12/2024 04:07:12 PM Interpretation: Performing Lab: Notes/Report: Source Facility: [facility]-[address] [place] [address] [place] [address] Electrocardiograph Report Signed Patient: MARY VICK MR#: [id number] : 1955 Acct:[id number] Age/Sex: 68 / F ADM Date: 06/11/24 Loc: SURGOUT Attending Dr: Willi Royal M.D. Ordering Physician: Bull Maria M.D. 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 Signed By: 06/11/24 4147 DD/ 1340 TD/TT: Cellular Equipment Installer:CBC AUTO DIFF Reviewed date:06/18/2024 12:30:48 PM Interpretation: Performing Lab: Notes/Report: [facility] ,White Blood Count9.04.0-11.0 10 3/uLRed Blood Count4.034.20-5.40 10 6/uL Xlproosxqa43.412.0-16.0 g/aELasubxswpk72.336.0-48.0 %Mean Corpuscular Omgbzp84.1 81.0-99.0 fLMean Corpuscular Pqhfhbddve44.326.7-34.0 pgMean Corpuscular HGB Conc 31.429.9-35.2 g/dLRed Cell Distribution Width15.811.0-15.0 %Platelet Cxzns943 150-450 10 3/uLMean Platelet Volume9.89.5-13.5 fLNeutrophils Percent Auto65.8 43.0-75.0 %Lymphocytes Percent Auto20.020.5-60.0 %Monocytes Percent Auto7.31.7- 12.0 %Eosinophils Percent Auto4.10.9-7.0 %Basophils Percent Auto1.10.2-2.0 % Immature Granulocytes Pct Auto1.70.0-0.5 %Neutrophils Absolute Auto5.91.4-6.5 10 3/uLLymphocytes Absolute Auto1.81.2-3.8 10 3/uLMonocytes Absolute Auto0.70.3-0.8 10 3/uLEosinophils Absolute Auto0.40.0-0.7 10 3/uLBasophils Absolute Auto0.10.0- 0.1 10 3/uLImmature Granulocytes Abs Auto0.150.00-0.03 10 3/uLPerforming Lab:see noteML - [facility] LBD-DIMER Reviewed date:06/18/2024 12:30:48 PM Interpretation: Performing Lab: Notes/Report: [facility] ,D Dimer3.27<=0.59 mg/L FEU RESULTS CALLED [...] and generalized hospitalization. Performing Lab:see noteML - [facility] LBPROF 14(COMP METB) Reviewed date:06/18/2024 12:30:48 PM Interpretation: Performing Lab: Notes/Report: [facility] ,Ubdlvp769579-682 mmol/LPotassium4.43.5-5.1 mmol/VBsenakrj61033-953 mmol/LCarbon Wshvehp47.021.0-32.0 mmol/LAnion Gap9.4Hjjlszj5170-221 mg/dLBlood Urea Nitrogen 23.07.0-18.0 mg/dLCreatinine0.940.55-1.02 mg/dLEstimated GFR ( Cheyanne>60 >=60 mL/min/1.73m 2Estimated GFR (Non- Ame59>=60 mL/min/1.73m 2BUN Creatinine Ratio24.5Llwdmvl6.48.5-10.1 mg/dLBilirubin Total0.30.2-1.0 mg/dL Aspartate Amino Aaotmquepjp7314-64 U/LAlanine Eubjlaqwmxhanlxi2961-37 U/L Alkaline Xqhjzpdpuhq84424-667 U/LTotal Protein6.86.4-8.2 g/dLAlbumin Level3.0 3.4-5.0 g/dLGlobulin3.8Albumin Globulin Ratio0.8Performing Lab:see noteML - [facility] LBTroponin I High Sensitivity Reviewed date:06/18/2024 12:30:48 PM Interpretation: Performing Lab: Notes/Report: [facility] ,Troponin I High Sensitivity5.34.0-51.3 pg/mL CUT-OFF POINTS HAVE BEEN ESTABLISHED BASED ON THE FOURTH UNIVERSAL DEFINITION OF MYOCARDIAL INFARCTION. THE UPPER REFERENCE LIMIT (URL) OF TROPONIN, DEFINED THE 99TH PERCENTILE OF cTnI DISTRIBUTION IN A REFERENCE POPULATION, HAS BEEN CONFIRMED THE DECISION THRESHOLD FOR AR DIAGNOSIS. 99TH PERCENTILE = 51.4 PG/ML NOTE: HIGH-SENSITIVITY TROPONIN ASSAY IS NOT INTENDED TO BE USED IN ISOLATION BUT SHOULD BE INTERPRETED IN CONJUNCTION WITH OTHER DIAGNOSTIC AND CLINICAL INFORMATION. Performing Lab:see noteML - [facility] LBXR chest 1V Reviewed date:06/18/2024 12:30:48 PM Interpretation: Performing Lab: Notes/Report: Source Facility: [place] [address] XRay Report Signed Patient: MARY VICK MR#: [id number] : 1955 Acct:[id number] Age/Sex: 68 / F ADM Date: 06/17/24 Loc: ER Attending Dr: Ordering Physician: Catherine Bales Date of Service: 06/17/24 Procedure(s): XR chest 1V Accession Number(s): [id number] cc: NATIVIDAD SILVA ; Catherine Bales [place] [address] Patient Name: MARY VICK MRN: [id number] date: 1955 Sex: F Assigned Patient Location: ER Current Patient Location: ER Accession/Order Number: [id number] Exam Date: 06/17/2024 11:15 Report Date: 06/17/2024 13:19 At the request of: CATHERINE BALES Procedure: XR chest 1V EXAM: XR chest 1V 06/17/2024 COMPARISON STUDY: PA and lateral chest 06/07/2024. CT of the chest 06/06/2024 FINDINGS: Upright AP chest image was obtained of this morbidly obese patient. The image is underpenetrated. HISTORY: XR/XR chest 1V IMPRESSION: 1. Moderate enlargement [...] Signed By: 06/17/24 1321 DD/ 1319 TD/TT: Cellular Equipment Installer:DIEGO echo doppler complete Reviewed date:12/19/2024 08:56:32 AM Interpretation: Performing Lab: Notes/Report: Source Facility: [place] [address] Cardiology Report Signed Patient: MARY VICK MR#: [id number] : 1955 Acct:[id number] Age/Sex: 69 / F ADM Date: 12/18/24 Loc: CARD Attending Dr: Miriam Pelaez M.D. Ordering Physician: Miriam Pelaez M.D. Date of Service: 12/18/24 Procedure(s): CA echo doppler complete Accession Number(s): [id number] cc: NATIVIDAD SILVA ; Miriam Pelaez M.D. Patient Name: MARY VICK MR#: [id number] : 1955 Exam Date: 12/18/2024 Ordering Doctor: [...] Area (VTI): 2.55 cm2, 2.55 cm2 Deceleration [place]: 1.62 m/s2 Pressure Half-Time: 714.03 ms Peak [...] COOK Signed By: 12/18/241933 DD/ 32 TD/TT: Cellular Equipment Installer:BNP Reviewed date:01/22/2025 11:02:06 AM Interpretation: Performing Lab: Notes/Report: [facility] ,NT Pro B Type Natriuretic Cazf083.0<=900.0 pg/mLPerforming Lab:see noteML - [facility] LBCBC AUTO DIFF Reviewed date:01/22/2025 11:02:06 AM Interpretation: Performing Lab: Notes/Report: [facility] ,White Blood Count9.84.0-11.0 10 3/uLRed Blood Count4.894.20-5.40 10 6/uL Tptoqcyjxa47.312.0-16.0 g/kOUmkholnhog54.536.0-48.0 %Mean Corpuscular Mvcsbf01.0 81.0-99.0 fLMean Corpuscular Pijqlrlhnm17.226.7-34.0 pgMean Corpuscular HGB Conc 32.129.9-35.2 g/dLRed Cell Distribution Width15.511.0-15.0 %Platelet Dtyyj836 150-450 10 3/uLMean Platelet Coctmu76.09.5-13.5 fLNeutrophils Percent Auto74.3 43.0-75.0 %Lymphocytes Percent Auto16.920.5-60.0 %Monocytes Percent Auto6.51.7- 12.0 %Eosinophils Percent Auto1.10.9-7.0 %Basophils Percent Auto0.70.2-2.0 % Immature Granulocytes Pct Auto0.50.0-0.5 %Neutrophils Absolute Auto7.31.4-6.5 10 3/uLLymphocytes Absolute Auto1.71.2-3.8 10 3/uLMonocytes Absolute Auto0.60.3- 0.8 10 3/uLEosinophils Absolute Auto0.10.0-0.7 10 3/uLBasophils Absolute Auto0.1 0.0-0.1 10 3/uLImmature Granulocytes Abs Auto0.050.00-0.03 10 3/uLPerforming Lab:see noteML - [facility] LBPROF 14(COMP METB) Reviewed date:01/22/2025 11:02:06 AM Interpretation: Performing Lab: Notes/Report: [facility] ,Xpomyy672108-701 mmol/LPotassium2.53.5-5.1 mmol/LRESULTS CALLED TO YARELI SCHMITT, KEAcalurfo29163-896 mmol/LCarbon Bnnthyr06.621.0-32.0 mmol/LAnion Gap12.9 Zxfnxgx38226-071 mg/dLBlood Urea Nitrogen8.07.0-18.0 mg/dLCreatinine0.940.55- 1.02 mg/dLEstimated GFR ( [place]yanne>60>=60 mL/min/1.73m 2Estimated GFR (Non- Ame59>=60 mL/min/1.73m 2BUN Creatinine Ratio8.6Zqbtvrz9.18.5-10.1 mg/dLBilirubin Total0.50.2-1.0 mg/dLAspartate Amino Yflggyshlws0679-21 U/L Alanine Cjzmpcsfobqpygcx7809-81 U/LAlkaline Ykkjharlmku3562-749 U/LTotal Protein 7.56.4-8.2 g/dLAlbumin Level3.53.4-5.0 g/dLGlobulin4.0Albumin Globulin Ratio0.9 Performing Lab:see noteML - [facility] LBTroponin I High Sensitivity Reviewed date:01/22/2025 11:02:06 AM Interpretation: Performing Lab: Notes/Report: [facility] ,Troponin I High Sensitivity9.94.0-51.3 pg/mL CUT-OFF POINTS HAVE BEEN ESTABLISHED BASED ON THE FOURTH UNIVERSAL DEFINITION OF MYOCARDIAL INFARCTION. THE UPPER REFERENCE LIMIT (URL) OF TROPONIN, DEFINED THE 99TH PERCENTILE OF cTnI DISTRIBUTION IN A REFERENCE POPULATION, HAS BEEN CONFIRMED THE DECISION THRESHOLD FOR AR DIAGNOSIS. 99TH PERCENTILE = 51.4 PG/ML NOTE: HIGH-SENSITIVITY TROPONIN ASSAY IS NOT INTENDED TO BE USED IN ISOLATION BUT SHOULD BE INTERPRETED IN CONJUNCTION WITH OTHER DIAGNOSTIC AND CLINICAL INFORMATION. Performing Lab:see noteML - [facility] WPNNIP-RpA-9 Ag* Reviewed date:01/22/2025 11:02:06 AM Interpretation: Performing Lab: Notes/Report: [facility] ,SARS-CoV-2 AgNEGATIVENEGATIVE This test has not [...] is revoked sooner. Performing Lab:see noteML - [facility] LBCT angio chest Reviewed date:01/22/2025 11:02:06 AM Interpretation: Performing Lab: Notes/Report: Source Facility: [facility]-[address] [place] [address] CT Scan Report Signed Patient: MARY VICK MR#: [id number] : 1955 Acct:[id number] Age/Sex: 69 / F ADM Date: 01/21/25 Loc: ER Attending Dr: Ordering Physician: Jessy Peralta Date of Service: 01/21/25 Procedure(s): CT angio chest Accession Number(s): [id number] cc: NATIVIDAD SILVA [place] [address] Patient Name: MARY VICK MRN: [id number] date: 1955 Sex: F Assigned Patient Location: ER Current Patient Location: ER Accession/Order Number: [id number] Exam Date: 01/21/2025 16:22 Report Date: 01/21/2025 [...] Jr., D.O. 01/21/2025 4:43 PM Dictation Location: [place] [address] Electronically authenticated by: [id number] Y Date: 01/21/2025 16:43 Dictated By: Travis Borrero M.D. Signed By: 01/21/251645 DD/ 42 TD/TT: Cellular Equipment Installer:PROF RYAN Nuno ([facility]) Reviewed date:02/05/2025 01:08:54 PM Interpretation: Performing Lab: Notes/Report: [facility] ,Mgmgwb376801-566 mmol/LPotassium4.13.5-5.1 mmol/GRaobvwfx43994-262 mmol/LCarbon Dogfdae49.321.0-32.0 mmol/LAnion Gap14.4Bbhlcaz55365-937 mg/dLBlood Urea Dnkuslfc83.07.0-18.0 mg/dLCreatinine0.940.55-1.02 mg/dLEstimated GFR ( [place]yanne>60>=60 mL/min/1.73m 2Estimated GFR (Non- Ame59>=60 mL/min/1.73m 2 BUN Creatinine Ratio11.7Ldffdld4.28.5-10.1 mg/dLPerforming Lab:see noteML - [facility] LBPROF CHEM 8 ([facility] METB) Reviewed date:03/15/2025 02:29:58 PM Interpretation: Performing Lab: Notes/Report: [facility] ,Donmhn558910-125 mmol/LPotassium4.03.5-5.1 mmol/TYffgytui12378-115 mmol/LCarbon Fqywnfy47.521.0-32.0 mmol/LAnion Gap18.5Junzzfi53003-623 mg/dLBlood Urea Aqdvcthd64.07.0-18.0 mg/dLCreatinine1.020.55-1.02 mg/dLEstimated GFR ( [place]yanne>60>=60 mL/min/1.73m 2Estimated GFR (Non- Ame53>=60 mL/min/1.73m 2 BUN Creatinine Ratio16.2Ejpdgjt9.98.5-10.1 mg/dLPerforming Lab:see noteML - [facility] LBECG 12 lead Reviewed date:01/24/2025 01:36:19 PM Interpretation: Performing Lab: Notes/Report: Source Facility: [place] [address] Electrocardiograph Report Signed Patient: MARY VICK MR#: [id number] : 1955 Acct:[id number] Age/Sex: 69 / F ADM Date: 01/21/25 Loc: ER Attending Dr: Ordering Physician: Jessy Peralta Date of Service: 01/21/25 Procedure(s): ECG 12 lead Accession Number(s): [id number] cc: [facility] Test Date: 2025-01-21 Pat Name: MARY VICK Department: Room: - Gender: Female 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 Signed By: 01/23/25 1346 DD/ 1423 TD/TT: Cellular Equipment Installer:POTASSIUM Reviewed date:01/22/2025 11:02:06 AM Interpretation: Performing Lab: Notes/Report: [facility] ,Potassium3.33.5-5.1 mmol/LPerforming Lab:see noteML - [facility] LB DEXA Axial Skeleton (hips, pelvis, spine)* Reviewed date:12/20/2024 11:25:30 AM Interpretation:undefined Performing Lab: Notes/Report: undefinedCT angio chest Reviewed date:10/25/2024 12:12:40 PM Interpretation: Performing Lab: Notes/Report: Source Facility: [place] [address] CT Scan Report Signed Patient: MARY VICK MR#: [id number] : 1955 Acct:[id number] Age/Sex: 69 / F ADM Date: 10/25/24 Loc: ER Attending Dr: Ordering Physician: Donny Escalante M.D. Date of Service: 10/25/24 Procedure(s): CT angio chest Accession Number(s): [id number] cc: NATIVIDAD SILVA [place] [address] Patient Name: MARY VICK MRN: [id number] date: 1955 Sex: F Assigned Patient Location: ER Current Patient Location: ER Accession/Order Number: [id number] Exam Date: 10/25/2024 11:50 Report Date: 10/25/2024 [...] Avina M.D. 10/25/2024 12:04 PM Dictation Location: [place] [address] Electronically authenticated by: [id number] Y Date: 10/25/2024 12:04 Dictated By: Alysia Avina M.D. Signed By: 10/25/24 1207 DD/ 1204 TD/TT: Cellular Equipment Installer:XR chest 1V Reviewed date:10/25/2024 11:04:31 AM Interpretation: Performing Lab: Notes/Report: Source Facility: [place] [address] [place] [address] XRay Report Signed Patient: MARY VICK MR#: [id number] : 1955 Acct:[id number] Age/Sex: 69 / F ADM Date: 10/25/24 Loc: ER Attending Dr: Ordering Physician: Donny Escalante M.D. Date of Service: 10/25/24 Procedure(s): XR chest 1V Accession Number(s): [id number] cc: NATIVIDAD SILVA ; Donny Escalante M.D. [place] [address] Patient Name: MARY VICK MRN: [id number] date: 1955 Sex: F Assigned Patient Location: ED.MAIN Current Patient Location: ED.MAIN Accession/Order Number: [id number] Exam Date: 10/25/2024 10:25 Report Date: 10/25/2024 [...] Avina M.D. 10/25/2024 10:29 AM Dictation Location: [place] [address] Electronically authenticated by: [id number] Y Date: 10/25/2024 10:29 Dictated By: Alysia Avina M.D. Signed By: 10/25/24 1031 DD/ 1029 TD/TT: Cellular Equipment Installer:ECG 12 lead Reviewed date:10/26/2024 08:52:28 AM Interpretation: Performing Lab: Notes/Report: Source Facility: [place] [address] [place] [address] Electrocardiograph Report Signed Patient: MARY VICK MR#: [id number] : 1955 Acct:[id number] Age/Sex: 69 / F ADM Date: 10/25/24 Loc: ER Attending Dr: Ordering Physician: Donny Escalante M.D. 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 Measurements Intervals Sixes Rate: 77 P: 28 IN: 156 QRS: 72 QRSD: 88 T: 66 QT: 390 QTc: 421 Interpretive Statements 1100 Sinus rhythm 9110 normal ECG Compared to ECG 06/17/2024 10:59:54 No significant changes Electronically Signed On 10-25-2024 20:19:40 EDT by EFFIE COOK M.D. Dictated By: EFFIE COOK Signed By: 10/25/242019 DD/ 0 TD/TT: Cellular Equipment Installer:Troponin I High Sensitivity Reviewed date:10/25/2024 11:04:31 AM Interpretation: Performing Lab: Notes/Report: [facility] ,Troponin I High Sensitivity7.04.0-51.3 pg/mL CUT-OFF POINTS HAVE BEEN ESTABLISHED BASED ON THE FOURTH UNIVERSAL DEFINITION OF MYOCARDIAL INFARCTION. THE UPPER REFERENCE LIMIT (URL) OF TROPONIN, DEFINED THE 99TH PERCENTILE OF cTnI DISTRIBUTION IN A REFERENCE POPULATION, HAS BEEN CONFIRMED THE DECISION THRESHOLD FOR AR DIAGNOSIS. 99TH PERCENTILE = 51.4 PG/ML NOTE: HIGH-SENSITIVITY TROPONIN ASSAY IS NOT INTENDED TO BE USED IN ISOLATION BUT SHOULD BE INTERPRETED IN CONJUNCTION WITH OTHER DIAGNOSTIC AND CLINICAL INFORMATION. Performing Lab:see noteML - [facility] LBPROF CHEM 8 ([facility] METB) Reviewed date:10/25/2024 11:04:31 AM Interpretation: Performing Lab: Notes/Report: [facility] ,Nvtfhl005496-478 mmol/LPotassium4.53.5-5.1 mmol/JMpqjzbrs14976-202 mmol/LCarbon Vxarecp98.921.0-32.0 mmol/LAnion Gap13.8Gedxkkj94481-285 mg/dLBlood Urea Oeexkgyg08.07.0-18.0 mg/dLCreatinine1.630.55-1.02 mg/dLEstimated GFR ( Hnpyhlb34>=60 mL/min/1.73m 2Estimated GFR (Non- Ame31>=60 mL/min/1.73m 2 BUN Creatinine Ratio33.6Ztpidwb8.28.5-10.1 mg/dLPerforming Lab:see note - [facility] LBD-DIMER Reviewed date:10/25/2024 11:04:31 AM Interpretation: Performing Lab: Notes/Report: [facility] ,D Dimer0.98<=0.59 mg/L FEU RESULTS CALLED [...] and generalized hospitalization. Performing Lab:see noteML - [facility] LBCBC AUTO DIFF Reviewed date:10/25/2024 11:04:31 AM Interpretation: Performing Lab: Notes/Report: [facility] ,White Blood Count14.54.0-11.0 10 3/uLRed Blood Count4.284.20-5.40 10 6/uL Nspgtwnbvf16.012.0-16.0 g/yCCduxhgnilj31.036.0-48.0 %Mean Corpuscular Fhjvrg51.1 81.0-99.0 fLMean Corpuscular Mhjlxhnmut65.426.7-34.0 pgMean Corpuscular HGB Conc 33.329.9-35.2 g/dLRed Cell Distribution Width16.911.0-15.0 %Platelet Glfjb840 150-450 10 3/uLMean Platelet Nwyygm38.09.5-13.5 fLNeutrophils Percent Auto91.7 43.0-75.0 %Lymphocytes Percent Auto3.020.5-60.0 %Monocytes Percent Auto2.91.7- 12.0 %Eosinophils Percent Auto0.00.9-7.0 %Basophils Percent Auto0.30.2-2.0 % Immature Granulocytes Pct Auto2.10.0-0.5 %Neutrophils Absolute Auto13.31.4-6.5 10 3/uLLymphocytes Absolute Auto0.41.2-3.8 10 3/uLMonocytes Absolute Auto0.40.3- 0.8 10 3/uLEosinophils Absolute Auto0.00.0-0.7 10 3/uLBasophils Absolute Auto0.0 0.0-0.1 10 3/uLImmature Granulocytes Abs Auto0.310.00-0.03 10 3/uLPerforming Lab:see noteML - [facility] LBBNP Reviewed date:10/25/2024 11:04:31 AM Interpretation: Performing Lab: Notes/Report: [facility] , Pro B Type Natriuretic Pept44.0<=900.0 pg/mLPerforming Lab:see note - [facility] LBXR wrist LT min 3V Reviewed date:09/10/2024 10:40:29 AM Interpretation: Performing Lab: Notes/Report: Source Facility: [facility] [address] [place] [address] XRay Report Signed Patient: MARY VICK MR#: [id number] : 1955 Acct:[id number] Age/Sex: 69 / F ADM Date: 09/10/24 Loc: EC Attending Dr: Willi Royal M.D. Ordering Physician: Willi Royal M.D. Date of Service: 09/10/24 Procedure(s): XR wrist LT min 3V Accession Number(s): [id number] cc: NATIVIDAD SILVA ; Willi Royal M.D. [facility] [place] [address] Patient Name: MARY VICK MRN: [id number]:[id number] date: 1955 Sex: F Assigned Patient Location: Current Patient Location: EC Accession/Order Number: [id number] Exam Date: 09/10/2024 10:26 Report Date: 09/10/2024 [...] Ghanshyam Mendez M.D.09/10/2024 10:27 AM Dictation Location: [place] [address] Electronically authenticated by: [id number] Y Date: 09/10/2024 10:27 Dictated By: Ghanshyam Mendez D.O. 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 Ordering Physician: Willi Royal M.D. Date of Service: 08/13/24 Procedure(s): XR wrist LT min 3V Accession Number(s): [id number] cc: NATIVIDAD SILVA ; Willi Royal M.D. [facility] [place] [address] Patient Name: MARY VICK MRN: [id number]:[id number] date: 1955 Sex: F Assigned Patient Location: Current Patient Location: EC Accession/Order Number: [id number] Exam Date: 08/13/2024 14:03 Report Date: 08/13/2024 [...] Borrero Jr., D.O.08/13/2024 2:04 PM Dictation Location: [facility] Electronically authenticated by: [id number] Y Date: 08/13/2024 14:04 Dictated By: Travis Borrero M.D. Signed By: 08/13/24 1407 DD/ 1404 TD/TT: Cellular Equipment Installer:XR wrist LT min 3V Reviewed date:07/16/2024 01:45:20 PM Interpretation: Performing Lab: Notes/Report: Source Facility: [place] [address] XRay Report Signed Patient: MARY VICK MR#: [id number] : 1955 Acct:[id number] Age/Sex: 68 / F ADM Date: 07/16/24 Loc: EC Attending Dr: Willi Royal M.D. Ordering Physician: Willi Royal M.D. Date of Service: 07/16/24 Procedure(s): XR wrist LT min 3V Accession Number(s): [id number] cc: NATIVIDAD SILVA ; Willi Royal M.D. [facility] [place] [address] Patient Name: MARY VICK MRN: [id number]:[id number] date: 1955 Sex: F Assigned Patient Location: Current Patient Location: EC Accession/Order Number: [id number] Exam Date: 07/16/2024 13:24 Report Date: 07/16/2024 [...] Alysia Avina M.D.07/16/2024 1:26 PM Dictation Location: [place] [address] Electronically authenticated by: [id number] Y Date: 07/16/2024 13:26 Dictated By: Alysia Avina M.D. Signed By: 07/16/24 1329 DD/ 1326 TD/TT: Cellular Equipment Installer:XR wrist LT min 3V Reviewed date:07/04/2024 12:50:42 PM Interpretation: Performing Lab: Notes/Report: Source Facility: [place] [address] XRay Report Signed Patient: MARY VICK MR#: [id number] : 1955 Acct:[id number] Age/Sex: 68 / F ADM Date: 06/25/24 Loc: EC Attending Dr: Willi Royal M.D. Ordering Physician: Willi Royal M.D. Date of Service: 06/25/24 Procedure(s): XR wrist LT min 3V Accession Number(s): [id number] cc: NATIVIDAD SILVA ; Willi Royal M.D. [place] [address] Patient Name: MARY VICK MRN: [id number] date: 1955 Sex: F Assigned Patient Location: EC Current Patient Location: Accession/Order Number: [id number] Exam Date: 06/25/2024 08:35 Report Date: 06/27/2024 [...] Signed By: 06/27/24 1546 DD/ 1544 TD/TT: Cellular Equipment Installer:ECG 12 lead Reviewed date:06/18/2024 12:30:48 PM Interpretation: Performing Lab: Notes/Report: Source Facility: [place] [address] Electrocardiograph Report Signed Patient: MARY VICK MR#: [id number] : 1955 Acct:[id number] Age/Sex: 68 / F ADM Date: 06/17/24 Loc: ER Attending Dr: Ordering Physician: Catherine Bales Date of Service: 06/17/24 Procedure(s): ECG 12 lead Accession Number(s): [id number] cc: [facility] Test Date: 2024-06-17 Pat Name: MARY VICK Department: Room: - 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 Signed By: 06/18/2425 DD/ 1059 TD/TT: Cellular Equipment Installer:FL fluoroscopy <1hr NON-READ Reviewed date:06/13/2024 12:18:22 PM Interpretation: Performing Lab: Notes/Report: Source Facility: [place] [address] Fluoroscopy Report Signed Patient: MARY VICK MR#: [id number] : 1955 Acct:[id number] Age/Sex: 68 / F ADM Date: 06/11/24 Loc: SURGOUT Attending Dr: Willi Royal M.D. Ordering Physician: Willi Royal M.D. Date of Service: 06/11/24 Procedure(s): FL fluoroscopy <1hr NON-READ Accession Number(s): [id number] cc: NATIVIDAD SILVA ; Willi Royal M.D. [place] [address] Patient Name: MARY VICK MRN: [id number]:[id number] date: 1955 Sex: F Assigned Patient Location: [facility] Current Patient Location: Accession/Order Number: [id number] Exam Date: 06/11/2024 15:25 Report Date: 06/13/2024 07:28 At the request of: WILLI ROYAL Procedure: FL fluoroscopy <1hr NON-READ EXAM: FL fluoroscopy <1hr NON-READ HISTORY: TECHNIQUE: FINDINGS: Please see Operative Report. Electronically authenticated by: MEIR RIVERO Date: 06/13/2024 07:28 Dictated By: Meir Rivero Signed By: 06/13/24 0730 DD/ 7 TD/TT: Cellular Equipment Installer:XR chest 2V Reviewed date:06/07/2024 12:42:46 PM Interpretation: Performing Lab: Notes/Report: Source Facility: [place] [address] [place] [address] XRay Report Signed Patient: MARY VICK MR#: [id number] : 1955 Acct:[id number] Age/Sex: 68 / F ADM Date: 06/06/24 Loc: MS 220-[address]: Luisito Tonwsend M.D. Ordering Physician: Luisito Townsend M.D. Date of Service: 06/07/24 Procedure(s): XR chest 2V Accession Number(s): [id number] cc: NATIVIDAD SILVA ; Luisito Townsend M.D. [facility] [place] [address] Patient Name: MARY VICK MRN: [id number]:[id number] date: 1955 Sex: F Assigned Patient Location: [place] Current Patient Location: [place] Accession/Order Number: [id number] Exam Date: 06/07/2024 08:45 Report Date: 06/07/2024 09:00 At the request of: LUSIITO TOWNSEND Procedure: XR chest 2V EXAMINATION: XR [...] M.D. Signed By: 06/07/24902 DD/ 9 TD/TT: Cellular Equipment Installer:JÚNIOR Rascon or MICROSCOPIC Reviewed date:06/07/2024 12:42:46 PM Interpretation: Performing Lab: Notes/Report: [facility] ,Color UrineYELLOWYELLOWClarity UrineCLEARCLEARSpecific Zachary Urine>=1.030 1.005-1.025pH Urine5.55.0-9.0Protein UrineNEGATIVENEG/TRACE mg/dLGlucose Urine UANEGATIVENEGATIVE mg/dLBilirubin UrineNEGATIVENEGATIVEKetones UrineNEGATIVE NEGATIVE mg/dLBlood UrineNEGATIVENEGATIVENitrite UrineNEGATIVENEGATIVE Urobilinogen Urine0.20.2-1.0 EU/dLLeukocyte Esterase UrineNEGATIVENEGATIVEWBC Urine0-2NONE SEEN #/HPFRBC Urine0-20-2 #/HPFBacteria UrineTRACENONE SEEN #/HPF Mucus UrineNONE SEENNONE SEENSquamous Epithelial Cell UrineMODERATENONE/RARE #/LPFCrystals Seen?SeenNone Seen #/HPFCalcium Oxalate Crystals UrineRARECast Seen?NONE SEENNONE SEEN #/LPFPerforming Lab:see noteML - [facility] LBPROF 14(COMP METB) Reviewed date:06/07/2024 12:42:46 PM Interpretation: Performing Lab: Notes/Report: [facility] ,Czsdys487373-365 mmol/LPotassium3.63.5-5.1 mmol/EDmzpdsjs26489-575 mmol/LCarbon Syokova50.721.0-32.0 mmol/LAnion Gap10.2Dysnlly06243-700 mg/dLBlood Urea Pxzqjriy35.07.0-18.0 mg/dLCreatinine0.940.55-1.02 mg/dLEstimated GFR ( [place]yanne>60>=60 mL/min/1.73m 2Estimated GFR (Non- Ame59>=60 mL/min/1.73m 2 BUN Creatinine Ratio17.5Bkxhzmc6.28.5-10.1 mg/dLBilirubin Total0.30.2-1.0 mg/dL Aspartate Amino Sdafdjrmbon0615-85 U/LAlanine Tozkezfqbebfemde2833-81 U/L Alkaline Tjlkjxmbrhb5534-252 U/LTotal Protein5.96.4-8.2 g/dLAlbumin Level2.73.4- 5.0 g/dLGlobulin3.2Albumin Globulin Ratio0.8Performing Lab:see noteML - [facility] LBCBC AUTO DIFF Reviewed date:06/07/2024 12:42:46 PM Interpretation: Performing Lab: Notes/Report: [facility] ,White Blood Count7.54.0-11.0 10 3/uLRed Blood Count3.634.20-5.40 10 6/uL Ffyebaseyj45.512.0-16.0 g/aTKoxyrzwxgo46.036.0-48.0 %Mean Corpuscular Ukpgpt67.9 81.0-99.0 fLMean Corpuscular Tguyfbjvzx19.926.7-34.0 pgMean Corpuscular HGB Conc 31.829.9-35.2 g/dLRed Cell Distribution Width16.311.0-15.0 %Platelet Rlwvu843 150-450 10 3/uLMean Platelet Gjlcfu13.39.5-13.5 fLNeutrophils Percent Auto67.7 43.0-75.0 %Lymphocytes Percent Auto18.020.5-60.0 %Monocytes Percent Auto9.71.7- 12.0 %Eosinophils Percent Auto3.10.9-7.0 %Basophils Percent Auto0.80.2-2.0 % Immature Granulocytes Pct Auto0.70.0-0.5 %Neutrophils Absolute Auto5.11.4-6.5 10 3/uLLymphocytes Absolute Auto1.41.2-3.8 10 3/uLMonocytes Absolute Auto0.70.3- 0.8 10 3/uLEosinophils Absolute Auto0.20.0-0.7 10 3/uLBasophils Absolute Auto0.1 0.0-0.1 10 3/uLImmature Granulocytes Abs Auto0.050.00-0.03 10 3/uLPerforming Lab:see noteML - [facility] LBTroponin I High Sensitivity Reviewed date:06/06/2024 06:59:30 PM Interpretation: Performing Lab: Notes/Report: [facility] ,Troponin I High Sensitivity5.64.0-51.3 pg/mL CUT-OFF POINTS HAVE BEEN ESTABLISHED BASED ON THE FOURTH UNIVERSAL DEFINITION OF MYOCARDIAL INFARCTION. THE UPPER REFERENCE LIMIT (URL) OF TROPONIN, DEFINED THE 99TH PERCENTILE OF cTnI DISTRIBUTION IN A REFERENCE POPULATION, HAS BEEN CONFIRMED THE DECISION THRESHOLD FOR AR DIAGNOSIS. 99TH PERCENTILE = 51.4 PG/ML NOTE: HIGH-SENSITIVITY TROPONIN ASSAY IS NOT INTENDED TO BE USED IN ISOLATION BUT SHOULD BE INTERPRETED IN CONJUNCTION WITH OTHER DIAGNOSTIC AND CLINICAL INFORMATION. Performing Lab:see note - [facility] LBBNP Reviewed date:06/06/2024 06:59:30 PM Interpretation: Performing Lab: Notes/Report: [facility] ,NT Pro B Type Natriuretic Pept59.0<=900.0 pg/mLPerforming Lab:see note - [facility] LBCT cervical spine wo con Reviewed date:06/06/2024 06:59:30 PM Interpretation: Performing Lab: Notes/Report: Source Facility: [place] [address] CT Scan Report Signed Patient: MARY VICK MR#: [id number] : 1955 Acct:[id number] Age/Sex: 68 / F ADM Date: 06/06/24 Loc: [place] 220-[address]: Luisito Townsend M.D. Ordering Physician: Lesia Holguin D.O. Date of Service: 06/06/24 Procedure(s): CT cervical spine wo con Accession Number(s): [id number] cc: NATIVIDAD SILVA [place] [address] Patient Name: MARY VICK MRN: [id number] date: 1955 Sex: F Assigned Patient Location: ER Current Patient Location: [place] Accession/Order Number: [id number] Exam Date: 06/06/2024 09:14 Report Date: 06/06/2024 [...] M.D. Signed By: 06/06/241516 DD/ 14 TD/TT: Cellular Equipment Installer:XR wrist LT min 3V Reviewed date:06/06/2024 10:53:15 AM Interpretation: Performing Lab: Notes/Report: Source Facility: [place] [address] XRay Report Signed Patient: MARY VICK MR#: [id number] : 1955 Acct:[id number] Age/Sex: 68 / F ADM Date: 06/06/24 Loc: ER Attending Dr: Ordering Physician: Lesia Holguin D.O. Date of Service: 06/06/24 Procedure(s): XR wrist LT min 3V Accession Number(s): [id number] cc: NATIVIDAD SILVA ; Lesia Holguin D.O. [place] [address] Patient Name: MARY VICK MRN: [id number] date: 1955 Sex: F Assigned Patient Location: ER Current Patient Location: ER Accession/Order Number: [id number] Exam Date: 06/06/2024 09:14 Report Date: 06/06/2024 [...] Signed By: 06/06/24 1033 DD/ 1030 TD/TT: Cellular Equipment Installer:CT head/brain wo con Reviewed date:06/06/2024 06:59:30 PM Interpretation: Performing Lab: Notes/Report: Source Facility: [place] [address] CT Scan Report Signed Patient: MARY VICK MR#: [id number] : 1955 Acct:[id number] Age/Sex: 68 / F ADM Date: 06/06/24 Loc: MS 220-[address]: Luisito Townsend M.D. Ordering Physician: Lesia Holguin D.O. Date of Service: 06/06/24 Procedure(s): CT head/brain wo con Accession Number(s): [id number] cc: NATIVIDAD SILVA [place] [address] Patient Name: MARY VICK MRN: [id number] date: 1955 Sex: F Assigned Patient Location: ER Current Patient Location: [place] Accession/Order Number: [id number] Exam Date: 06/06/2024 09:14 Report Date: 06/06/2024 [...] is intact. No skull fracture. Nasopharynx normal. Fitter Tacker spaces normal. Orbital contents are unremarkable. Mild [...] Signed By: 06/06/24 1517 DD/ 14 TD/TT: Cellular Equipment Installer:CT chest wo con Reviewed date:06/06/2024 06:59:30 PM Interpretation: Performing Lab: Notes/Report: Source Facility: [place] [address] CT Scan Report Signed Patient: MARY VICK MR#: [id number] : 1955 Acct:[id number] Age/Sex: 68 / F ADM Date: 06/06/24 Loc: ER Attending Dr: Ordering Physician: Lesia Holguin D.O. Date of Service: 06/06/24 Procedure(s): CT chest wo con Accession Number(s): [id number] cc: NATIVIDAD SILVA [place] [address] Patient Name: MARY VIKC MRN: [facility]:[id number] date: 1955 Sex: F Assigned Patient Location: ER Current Patient Location: ER Accession/Order Number: [id number] Exam Date: 06/06/2024 09:14 Report Date: 06/06/2024 [...] Signed By: 06/06/24 1159 DD/ 1156 TD/TT: Cellular Equipment Installer:CT FACIAL BONES WO CON Reviewed date:06/06/2024 06:59:30 PM Interpretation: Performing Lab: Notes/Report: Source Facility: [place] [address] CT Scan Report Signed Patient: MARY VICK MR#: [id number] : 1955 Acct:[id number] Age/Sex: 68 / F ADM Date: 06/06/24 Loc: [place] 220-[address]: Luisito Townsend M.D. Ordering Physician: Lesia Holguin D.O. Date of Service: 06/06/24 Procedure(s): CT facial bones wo con Accession Number(s): [id number] cc: NATIVIDAD SILVA [place] [address] Patient Name: MARY VICK MRN: [id number] date: 1955 Sex: F Assigned Patient Location: Current Patient Location: [place] Accession/Order Number: [id number] Exam Date: 06/06/2024 09:14 Report Date: 06/06/2024 [...] Signed By: 06/06/24 1517 DD/ 14 TD/TT: Cellular Equipment Installer:CBC AUTO DIFF Reviewed date:06/06/2024 09:21:21 AM Interpretation: Performing Lab: Notes/Report: [facility] ,White Blood Count8.44.0-11.0 10 3/uLRed Blood Count3.974.20-5.40 10 6/uL Nufwrzdyeh66.412.0-16.0 g/sDAscnekqeus97.936.0-48.0 %Mean Corpuscular Fmgqoc61.4 81.0-99.0 fLMean Corpuscular Yirvbvlyqd31.726.7-34.0 pgMean Corpuscular HGB Conc 31.829.9-35.2 g/dLRed Cell Distribution Width16.211.0-15.0 %Platelet Zjkvu139 150-450 10 3/uLMean Platelet Qormrm74.19.5-13.5 fLNeutrophils Percent Auto76.7 43.0-75.0 %Lymphocytes Percent Auto11.720.5-60.0 %Monocytes Percent Auto7.51.7- 12.0 %Eosinophils Percent Auto2.50.9-7.0 %Basophils Percent Auto0.80.2-2.0 % Immature Granulocytes Pct Auto0.80.0-0.5 %Neutrophils Absolute Auto6.41.4-6.5 10 3/uLLymphocytes Absolute Auto1.01.2-3.8 10 3/uLMonocytes Absolute Auto0.60.3- 0.8 10 3/uLEosinophils Absolute Auto0.20.0-0.7 10 3/uLBasophils Absolute Auto0.1 0.0-0.1 10 3/uLImmature Granulocytes Abs Auto0.070.00-0.03 10 3/uLPerforming Lab:see noteML - [facility] LBXR hip LUANA Reviewed date:05/03/2024 09:47:50 AM Interpretation: Performing Lab: Notes/Report: Source Facility: [place] [address] XRay Report Signed Patient: MARY VICK MR#: [id number] : 1955 Acct:[id number] Age/Sex: 68 / F ADM Date: 05/03/24 Loc: RAD Attending Dr: Varun Monique M.D. Ordering Physician: Varun Mnoique M.D. Date of Service: 05/03/24 Procedure(s): XR hip LUANA Accession Number(s): [id number] cc: NATIVIDAD SILVA ; Varun Monique M.D. [place] [address] Patient Name: MARY VICK MRN: TBH:[id number] date: 1955 Sex: F Assigned Patient Location: [facility] Current Patient Location: [facility] Accession/Order Number: [id number] Exam Date: 05/03/2024 09:00 Report Date: 05/03/2024 [...] M.D. Signed By: 05/03/24922 DD/ 0 TD/TT: Cellular Equipment Installer:LIPID PROFILE Reviewed date:05/03/2024 11:25:54 AM Interpretation: Performing Lab: Notes/Report: [facility] ,Plpsodmpdxcau09<=150 mg/yYWstoxogfecj388<=200 mg/dLHDL Qoeyxdnbeum5321-88 mg/dL > or =60 mg/dl - LOW CARDIOVASCULAR RISK <40 mg/dl - HIGH CARDIOVASCULAR RISK LDL Cholesterol Xjkwsubrgo845.0 <100 mg/dl OPTIMAL 100-129 mg/dl NEAR OR ABOVE OPTIMAL 130-159 mg/dl BORDERLINE HIGH 160-189 mg/dl HIGH >190 mg/dl VERY HIGH VLDL JTNZHJVNJCC82.8Chol HDL Ratio2.9 3.3 - 4.4 LOW RISK 4.4 - 7.1 AVERAGE RISK 7.1 - 11.0 MODERATE RISK >11.0 HIGH RISK Performing Lab:see noteML - [facility] LBUA DIP NONAUTO WO MICRO (34450) - IN OFFICE Reviewed date:03/18/2025 02:57:07 PM Interpretation: Performing Lab: Notes/Report: COLORYellowCLARITYClearGLUCOSE+++BILIRUBINNegKETONE+SPECIFIC GRAVITY1.010BLOOD NqzVE9PMUWYMW+UROBILINOGENNegNITRITENegLEUKOCYTE ESTERASENegMM tomosynthesis screening BI Reviewed date:03/15/2025 02:29:58 PM Interpretation: Performing Lab: Notes/Report: Source Facility: [facility]-[address] [place] [address] [place] [address] Mammography Report Signed Patient: MARY VICK MR#: [id number] : 1955 Acct:[id number] Age/Sex: 69 / F ADM Date: 03/15/25 Loc: MAMMO Attending Dr: NATIVIDAD SILVA Ordering Physician: NATIVIDAD SILVA Results: Date of Service: 03/15/25 Follow Up: Procedure(s): MM tomosynthesis screening BI Accession Number(s): [id number] cc: NATIVIDAD SILVA Patient Name: MARY VICK MR#: [id number] : 1955 Exam Date: 03/15/2025 Ordering Doctor: NATIVIDAD SILVA [facility] RADIOLOGY REPORT PROCEDURE: MM TOMOSYNTHESIS SCREENING BI COMPARISON: MM TOMOSYNTHESIS SCREENING BI, 02/21/2024. MG MAMM SCREEN LUANA W CAD, 03/04/2020. [...] at age 41. LOCATION: [facility] BREAST COMPOSITION: There are scattered [...] Signed By: 03/15/25 1344 DD/ 1343 TD/TT: Cellular Equipment Installer:PROF Cain(COMP METB) Reviewed date:02/04/2025 10:47:03 AM Interpretation: Performing Lab: Notes/Report: [facility] ,Arhcbu443373-370 mmol/LPotassium3.03.5-5.1 mmol/KCamtmjje94677-619 mmol/LCarbon Zokvkrf20.721.0-32.0 mmol/LAnion Gap17.5Ltnbblt37579-261 mg/dLBlood Urea Nitrogen9.07.0-18.0 mg/dLCreatinine1.010.55-1.02 mg/dLEstimated GFR ( [place]>60>=60 mL/min/1.73m 2Estimated GFR (Non- Ame54>=60 mL/min/1.73m 2 BUN Creatinine Ratio8.4Vjgdcnc8.48.5-10.1 mg/dLBilirubin Total0.50.2-1.0 mg/dL Aspartate Amino Qnycxpgoiee6505-78 U/LAlanine Cilrumhvwlsccars3486-89 U/L Alkaline Dsvmeaxefgh6832-419 U/LTotal Protein7.86.4-8.2 g/dLAlbumin Level3.73.4- 5.0 g/dLGlobulin4.1Albumin Globulin Ratio0.9Performing Lab:see noteML - [facility] LBXR chest 1V Reviewed date:01/22/2025 11:02:06 AM Interpretation: Performing Lab: Notes/Report: Source Facility: [facility]-[address] [place] [address] [place] [address] XRay Report Signed with Addenda Patient: MARY VICK MR#: [id number] : 1955 Acct:[id number] Age/Sex: 69 / F ADM Date: 01/21/25 Loc: ER Attending Dr: Ordering Physician: Jessy Peralta Date of Service: 01/21/25 Procedure(s): XR chest 1V Accession Number(s): [id number] cc: NATIVIDAD SILVA ; Jessy Peralta ADDENDUM [facility] [place] [address] This is an addendum Findings should read: Cardiomegaly with vascular congestion. Impression dictated by: Travis Borrero Jr., D.O. 01/21/2025 4:44 PM Dictation Location: [address] Electronically authenticated by: [id number] Y Date: 01/21/2025 16:44 atient Name: MARY VICK MRN: [id number] date: 1955 Sex: F Assigned Patient Location: ER Current Patient Location: ER Accession/Order Number: [id number] Exam Date: 01/21/2025 14:30 Report Date: 01/21/2025 16:44 At the request of: JESSY PEARLTA Procedure: XR chest 1V [place] [id number] Patient Name: MARY VICK MRN: [id number]:[id number] date: 1955 Sex: F Assigned Patient Location: ER Current Patient Location: ER Accession/Order Number: [id number] Exam Date: 01/21/2025 14:30 Report Date: 01/21/2025 [...] Jr., D.O. 01/21/2025 2:48 PM Dictation Location: [place] [address] Electronically authenticated by: [id number] Y Date: 01/21/2025 14:48 Addendum Dictated By: Travis Borrero M.D. Addendum Signed By: 01/21/25 1 646 Addendum Cosigned By: DD/ /16/1643 TD/TT: / [place] [id number] Patient Name: MARY VICK MRN: [id number] date: 1955 Sex: F Assigned Patient Location: ER Current Patient Location: ER Accession/Order Number: [id number] Exam Date: 01/21/2025 14:30 Report Date: 01/21/2025 14:48 At the request of: JESSY PERALTA Procedure: XR chest 1V Single view chest: CLINICAL HISTORY: SOB COMPARISON: None FINDINGS: Thyromegaly vascular congestion. Large hiatal hernia. No consolidation pneumothorax pleural effusion or free air. XR/XR chest 1V IMPRESSION: CHF Impression dictated by: Travis Borrero Jr., D.O. 01/21/2025 2:48 PM Dictation Location: [place] [address] Electronically authenticated by: [id number] Y Date: 01/21/2025 14:48 Dictated By: Travis Borrero M.D. Signed By: 01/21/25 1451 DD/ 1448 TD/TT: Cellular Equipment Installer:MR lumbar spine wo con Reviewed date:11/26/2024 03:28:23 PM Interpretation: Performing Lab: Notes/Report: Source Facility: [place] [address] Magnetic Resonance Report Signed Patient: MARY VICK MR#: [id number] : 1955 Acct:[id number] Age/Sex: 69 / F ADM Date: 11/26/24 Loc: MRI Attending Dr: Rhett Nroton M.D. Ordering Physician: Richard Askew Date of Service: 11/26/24 Procedure(s): MR lumbar spine wo con Accession Number(s): [id number] cc: NATIVIDAD SILVA ; Richard Askew [place] [address] Patient Name: MARY VICK MRN: [id number] date: 1955 Sex: F Assigned Patient Location: MRI Current Patient Location: MRI Accession/Order Number: [id number] Exam Date: 11/26/2024 10:42 Report Date: 11/26/2024 [...] Gandara M.D. 11/26/2024 10:50 AM Dictation Location: [place] [address] Electronically authenticated by: [id number] Y Date: 11/26/2024 10:50 Dictated By: Matteo Gandara M.D. Signed By: 11/26/24 1053 DD/ 1050 TD/TT: Cellular Equipment Installer:MR thoracic spine wo con Reviewed date:11/26/2024 03:28:23 PM Interpretation: Performing Lab: Notes/Report: Source Facility: [place] [address] [place] [address] Magnetic Resonance Report Signed Patient: MARY VICK MR#: [id number] : 1955 Acct:[id number] Age/Sex: 69 / F ADM Date: 11/26/24 Loc: MRI Attending Dr: Rhett Norton M.D. Ordering Physician: Richard Askew Date of Service: 11/26/24 Procedure(s): MR thoracic spine wo con Accession Number(s): [id number] cc: NATIVIDAD SILVA ; Richard Askew [place] [address] Patient Name: MARY VICK MRN: [id number] date: 1955 Sex: F Assigned Patient Location: MRI Current Patient Location: MRI Accession/Order Number: [id number] Exam Date: 11/26/2024 10:32 Report Date: 11/26/2024 [...] Gandara M.D. 11/26/2024 10:42 AM Dictation Location: [place] [address] Electronically authenticated by: [id number] Y Date: 11/26/2024 10:42 Dictated By: Matteo Gandara M.D. Signed By: 11/26/24 1045 DD/ 1042 TD/TT: Cellular Equipment Installer:PROF RYAN Nuno ([facility]) Reviewed date:02/04/2025 10:45:56 AM Interpretation: Performing Lab: Notes/Report: [facility] ,[id number] mmol/LPotassium4.13.5-5.1 mmol/RKwiwyokt18853-746 mmol/LCarbon Rfeprcb44.621.0-32.0 mmol/LAnion Gap11.9Mrjtmvi0012-514 mg/dLBlood Urea Ixasbayo90.07.0-18.0 mg/dLCreatinine0.930.55-1.02 mg/dLEstimated GFR ( [place]>60>=60 mL/min/1.73m 2Estimated GFR (Non- Ame59>=60 mL/min/1.73m 2 BUN Creatinine Ratio16.0Jqvsjwi8.98.5-10.1 mg/dLPerforming Lab:see noteML - [facility] Reason For Referral Reason COPD Diagnosis 1 COPD exacerbation (J 44.1) Referral Organization [facility] Referring Provider First Name Natividad Referring Provider Last Name Karine Referring Provider [facility] araceli Referred Provider Ronni Ac Referred Provider Specialty Pulmonary Di seases Referral Priority Routine Diagnosis 1 COPD (chronic obstru ctive pulmonary disease) (J44.9) Referral Organization [facility] Referring Provider First Name Natividad Referring Provider Last Name Karine Referring Provider [facility] araceli Referred Provider Ronni Ac Referred Provider Specialty Pulmonary Di seases Referral Priority Routine Reason hiatal hernia Diagnosis 1 Hiatal hernia (K44.9 ) Referral Organization [facility] Referring Provider First Name Natividad Referring Provider Last Name Karine [facility]erring Provider [facility] Lara Higgins Referred Provider Specialty [...] Orally Once a day prn; Duration: 14 uysdSHA77ctiveBreztri Aerosphere 160/9/4.8 mcgas directed inhalation 2 puffs BIDActiveoxyCODONE-Acetaminophen 5-325 MGOral; Duration: 30 DaysActiveFarxiga 10 MG1 tablet Orally Once a dayActiveFerrous Sulfate 325 (65 Fe) MG1 tablet Orally Three times a Week; Duration: 30 days 4ActiveDiclofenac Sodium 50 MG1 tablet Orally Twice a dayActivePROzac 20 MG4 capsule Orally once daily; Duration: 90 daysActivePyridium 200 MG1 tablet after meals Orally Three times a day; Duration: 2 days02/20/2025tive rOPINIRole HCl 1 MG1 tablet 1 to 3 hours before bedtime Orally Once a day; Duration: 30 daysActive Immunizations Vaccine Route Administration Date Status Comme nts Flu, Fluzone High-Dose (9066 2) 65 yrs+ (0375-5092) Unknown 02/12/2022 Administered Pneumococcal (Pneumovax 23)Myfydgo3802/25/2014dministeredPneumococcal (Prevnar 13)Lfpbdro2602/28/2018AdministeredPneumococcal (Prevnar 13)Bvwkgpr3802/02/2020 AdministeredPneumococcal (Prevnar 20)Qoqntxp24/29/2022AdministeredPneumococcal (Prevnar 20)Kidwunm47/29/4425UgeuafdzmcpoMADP-GWZ-7 (COVID 19) bivalent 30 mcg/0.3 ml ljdnVkqyegz52/17/2023AdministeredTdap (Boostrix)Faoabet0811/25/2021 AdministeredZoster (Zostavax)Uvxzlat1602/27/2016Administered Social History Tobacco Use: Social History Observation Description Date Details (start date - stop date) Former Smoker 05/23/1967 - 05/23/2020 Tobacco Use/Smoking Question Answer Notes Patient is a former smoker When did you start smoking?05/23/1967When did you stop smoking?05/23/2020How long has it been since you last smoked?1-5 yearsAlcohol Screen (Audit-C) Question Answer Notes Did you have a drink containing alcohol in the p ast year? No Wdgjxs8FyjrncarqgnnhkSachidwhULUGN-J (Standard) Question Answer Notes Did you have a drink containing alcohol in the p ast year? No Wulzhz5MqpsnwzqyxpkggKaqosjhaBjpeawa Notes: Smoking on and off from 30 [...] W/U Status Risk Notes Problem Age-related osteoporosis (201117 002) Age-related osteoporosis without current pathological fracture (M81.0) ActiveconfirmedProblemHeart failure (99099997)Heart failure, unspecified (I50.9) ActiveconfirmedProblemAtherosclerosis of aorta (83751571)Atherosclerosis of aorta (I70.0)ActiveconfirmedProblemDiaphragmatic hernia (18790972)Diaphragmatic hernia without obstruction or gangrene (K44.9)ActiveconfirmedProblemPalpitations (75716142)Palpitations (R00.2)ActiveconfirmedProblemChest pain (19014651)Chest pain (R07.9)ActiveconfirmedProblemCOPD - Chronic obstructive pulmonary disease (47202416)COPD (chronic obstructive pulmonary disease) (J44.9)Activeconfirmed ProblemGastroesophageal reflux disease (290465875)GERD (gastroesophageal reflux disease) (K21.9)ActiveconfirmedProblemAnxiety (40393835)Anxiety (F41.9)Active confirmedProblemHypothyroid (23721789)Hypothyroid (E03.9)ActiveconfirmedProblem Insomnia (772811598)Insomnia (G47.00)ActiveconfirmedProblemMigraine (42917478) Migraine (G43.909)ActiveconfirmedProblemAcute exacerbation of chronic obstructive airways disease (544679888)COPD exacerbation (J44.1)Activeconfirmed ProblemOsteoporosis (38853468)Osteoporosis (M81.0)ActiveconfirmedProblemAcquired hypothyroidism (779577579)Acquired hypothyroidism (E03.9)ActiveconfirmedProblem Dyspnea (784658457)Exertional shortness of breath (R06.02)ActiveconfirmedProblem Rib fracture (43100374)Rib fracture (S22.39XA)ActiveconfirmedProblemLeukocytosis (793173278)Leukocytosis (D72.829)ActiveconfirmedProblemIron deficiency anemia (69972486)Anemia, iron deficiency (D50.9)ActiveconfirmedProblemMemory deficit (530374461)Memory deficit (R41.3)ActiveconfirmedProblemGastropathy (31444538) Gastropathy (K31.9)ActiveconfirmedProblemExcessive caffeine intake (818506253982011)Excessive caffeine intake (Z91.89)ActiveconfirmedProblem Essential hypertension (43483302)BP (high blood pressure) (I10)Activeconfirmed ProblemDiaphragmatic hernia (55614957)Large hiatal hernia (K44.9)Activeconfirmed ProblemMixed anxiety and depressive disorder (012076832)Anxiety and depression (F41.8)ActiveconfirmedProblemMild pulmonary hypertension (436424847)Mild pulmonary hypertension (I27.20)ActiveconfirmedProblemObese class II (finding) (383466063482269)Class 2 obesity (E66.9)ActiveconfirmedProblemImaging result abnormal (318770666)Abnormal findings on diagnostic imaging of other specified body structures (R93.89)ActiveconfirmedProblemDisease caused by Severe acute respiratory syndrome coronavirus 2 (disorder) (015935383)COVID (U07.1)Active confirmedProblemSupraventricular tachycardia (disorder) (2230771) Supraventricular tachycardia, unspecified (I47.10)Activeconfirmed Vital Signs Heart Rate 80 /min 12/24/2024 Ymnkljmb73 %12/24/2024lood pressure ctcpkxspi83 mm Hg03/18/20255704Moltbv99 in 03/18/2025lood pressure iyxvxeyq807 mm Hg03/18/20252087Ainfbl703 lbs1MI 31.64 kg/m203/18/2025 Procedures Procedure Date Ordered Date Performed Result Body Sit e PFT Complete 11/30/2024 N/ASix minute walk11/30/2024N/A Encounters Encounter Location Date Provider Diagnosis [place] [id number] 05/01/2024 Natividad Silva Atherosclerosis of a manda I70.0 ; Class 2 obesity E66.9 and Mild pulmonary hypertension I27.20 [place] [id number] 10/09/2024 Natividad Silva Migraine G43.[address] [address] 10/26/2024 Natividad Silva Osteoporosis M81.0 ; Hypothyroid E03.9 and Compression fracture of body of thoracic vertebra S22.000A [address] [address] 11/30/2024 Natividad Silva COPD exacerbation J4 4.[address] [address] 12/24/2024 Natividad Silva Heart failure, unspecified I50.9 ; Anxiety F41.9 and Mild pulmonary hypertension I27.[address] [address] 01/24/2025 Natividad Silva Hiatal hernia K44.[address] [address] 02/20/2025 José Hoy Dysuria R30.0 and UT I (urinary tract infection), uncomplicated N39.0 [facility] [address] [place] [address] 03/18/2025 Natividad Silva Dysuria R30.0 [facility] [address] [place] [address] 05/03/2024 Natividad Silva [facility] [place] [address] 05/21/2024amela CramerMigraine G43.909[facility] [place] [address]/Doug HoyBVSt. Francis Hospital [address] [place] [address]/Pamela [facility]ramerPen[facility] [place] [address]/[facility] [place] [address] 08/27/2024Pamela CramerMigraine G43.909[facility] [place] [address]/11/2024Pamela [facility] [place] [address]/Pamela [facility] [place] [address]/12/2024Pamela [facility] [place] [address]/Pamela CramerAbnormal findings on diagnostic imaging of other specified body structures R93.89[facility] [place] [address]/Pamela [facility] [place] [address]/10/2024Pamela CramerCompression fracture of body of thoracic vertebra S22.000A and Osteoporosis M81.0[facility] [facility] [place] [address]/Pamela [facility] [place] [facility] [place] [address]/11/2024Pamela [facility] [place] [facility] [place] [address]/03/2025Pamela CramerSOB (shortness of breath) R06.02[facility] [place] [facility] [place] [address]/Pamela CramerBVSt. Francis Hospital[address] [facility] [address] 12/05/2024Pamela CramerCOPD exacerbation J44.1[facility] [address] [place] [facility] [place] [address]/Pamela CramerCOPD (chronic obstructive pulmonary disease) J44.9BM[facility] [place] [facility] [place] [address]/Pamela [facility] [place] [facility] [place] [address]/Pamela Karine Anxiety F41.9BM[facility] [place] [facility] [place] [address]/Pamela [facility] [facility] [place] [address]/01/2025Pamela [facility] [facility] [place] [address]/Pamela Karine [facility] [facility] [place] [address] 03/04/2025Pamela [facility] [place] [facility] [place] [address]/16/2025Pamela CramerAnxiety F41.9 and Migraine, unspecified, not intractable, without status migrainosus G43.909[place] [address] [place] [address]/Pamela MartinmerZachary [place] [address] [place] [address]/10/2024Natividad Silva Assessments Encounter Date Diagnosis (ICD Code) Assessment Notes Treatment Notes Treatment Clinical Notes Section Notes 05/01/2024 Atherosclerosis of aorta (ICD-10 - I70.0) not on statin check lipids 05/01/2024lass 2 obesity (ICD-10 - E66.9)work on diet10/09/2024Migraine (ICD-10 - G43.909)Toradol 60 norflex [address]10/26/2024Hypothyroid (ICD-10 - E03.9)10/26/2024 Osteoporosis (ICD-10 - M81.0)check on continuing infusions at 11/30/2024OPD exacerbation (ICD-10 - J44.1) continue trelegy, albuterol walk test monitor pulse ox, to ER if needed 12/24/2024Heart failure, unspecified (ICD-10 - I50.9)follows with cardiology 12/24/2024nxiety (ICD-10 - F41.9) stop amitrip, discussed with patient, verbalizes understanding said taking for sleep but doesnt think helps much trial of buspirone, stop if SE fu 1m, prn 01/24/2025Hiatal hernia (ICD-10 - K44.9)02/20/2025Dysuria (ICD-10 - R30.0) 05/21/2024Migraine (ICD-10 - G43.909)08/27/2024Migraine (ICD-10 - G43.909) 10/02/2024bnormal findings on diagnostic imaging of other specified body structures (ICD-10 - R93.89)10/26/2024Osteoporosis (ICD-10 - M81.0)10/26/2024 Compression fracture of body of thoracic vertebra (ICD-10 - S22.000A)11/30/2024 SOB (shortness of breath) (ICD-10 - R06.02)12/05/2024OPD exacerbation (ICD-10 - J44.1)12/11/2024OPD (chronic obstructive pulmonary disease) (ICD-10 - J44.9) 5Anxiety (ICD-10 - F41.9)03/18/2025Dysuria (ICD-10 - R30.0)03/07/2025 Anxiety (ICD-10 - F41.9)03/07/2025Migraine, unspecified, not intractable, without status migrainosus (ICD-10 - G43.909)02/20/2025UTI (urinary tract infection), uncomplicated (ICD-10 - N39.0)Drink [...] until they are finished. You can use kzge-glv-tafztcz acetaminophen or ibuprofen if needed for pain. You should follow up with your Primary Care Physician or return to clinic if not improving in the next 3-5 days.12/24/2024Mild pulmonary hypertension (ICD-10 - I27.20) follows with [...] TSH 02/06/2024 UA DIP NONAUTO WO MICRO (71964) - IN OFF ICE 02/20/2025 PFT Complete 11/30/2024 COVID 19 SWAB ANTIGEN TEST 08/23/2022 MAMM SCREEN BILAT DANIS 3D GLOBAL* 2023 CBC AUTO DIFF 01/03/2023 CBC AUTO DIFF 01/12/2024 IRON 01/03/2023 XR DEXA BONE DENSITY 10/26/2024 THYROID PANEL (T4/TSH/FREE T3) 4 Insurance Providers Payer Name Payer Address Payer Phone Subscriber Number Group Number Insured Name Patient Relationship to Insured Coverage Start Date Coverage End Date [employer] ADV PLAN [address] [place] [address] [id number] [facility] Vick Self - patient is the insured 4 Medications Administered Medication Instructions Date of Administration Dosage Notes Ketorolac Tromethamine pa69Utdmnybcf Xfpdlztngeku69/28/202360 mg60 mgKetorolac Nnljytjwgqgy70/23/202460 he33Fwocahsrw Peflojtsibbg97/09/202460 mgKetorolac Vytkisevjyyj59/25/202460 mgKetorolac Syzqperogcgg25/28/202460 mgKetorolac Nlbhwieetxxk60/20/202560 mgKetorolac Rhqbzheqlckt89/06/202560 mgNorflex mg60 mgOrphenadrine Rstriyi04 mgOrphenadrine Citrate 0 mgOrphenadrine Uwnjqcr20/28/158732 mgOrphenadrine Xbmlgou0710/09/2024 60 mtHqmfgzdml56/15/908738 paBkiornijk50/28/202425 mgPromethazine 25mg03/16/2024 25 mgPromethazine, 25 mg mg Medical (General) History Medical History History [...] E07.9 J-Shaped stomach Surgical History Surgery Date(Month/Year) Jaw Surgery HYSTERECTOMY TOTALColonoscopy- Dr Coreyblation lumbar spineCataract removal and eye liftAPPENDECTOMYHospitalization History Reason Date(Month/Year) migraine 01/13
--- OUTSIDE RECORDS SUMMARY | 2025-04-18 22:50 | XMS_ITS | Encounter Summary ---
Author Organization [facility] Address [address] [place] [address] Care Team Providers [employer] Consultant Name Role Phone Natividad Milton MD Unavailable [phone] Encounter Details DateTypeDepartmentCare Team (Latest Contact Info)Niewwpbyhfo16/10/2025Telephone [facility] [address] [place] [address] Vivienne Sanchez MA Social History Tobacco UseTypesPacks/DayYears UsedDateSmoking Tobacco: NeverSmokeless Tobacco: NeverAlcohol UseStandard Drinks/WeekCommentsNever0 (1 standard drink = 0.6 oz pure alcohol)CommentsUnknownSex and Gender InformationValueDate Recorded Sex Assigned at BirthNot on fileLegal GquLgegjm58/15/2023 8:27 PM EDTGender IdentityNot on fileSexual OrientationNot on filedocumented as of this encounter Miscellaneous Notes * Telephone Encounter - Sabra Corbin MA - 04/04/2025 10:28 AM EST Patient came into office today and picked up3 samples of Breztri. Thank you * Telephone Encounter - Vivienne Sanchez MA - 04/04/2025 9:10 AM EST Informed patient. She will be in today to berry picker some samples. * Telephone Encounter - Rosalba Ac DO - 04/02/2025 11:38 AM EST Ok, can have some * Telephone Encounter - Vivienne Sanchez MA - 04/01/2025 9:04 AM EST Patient called asking for more samples of Breztri. She has enough to last her til next week but is having surgery Tuesday and would like to pick some up prior to Tuesday. I will check with dr ac onhow many samples patient can have. documented in this encounter Plan of Treatment DateTypeDepartmentCare Team (Latest Contact Info)Oiwvqvosabv04/16/2025 2:00 PM ESTOffice Visit [facility] [address] [place] [address] Rosalba Ac DO [address] [place] [address] documented as of this encounter Visit Diagnoses Not on filedocumented in this encounter Care Teams Team MemberRelationshipSpecialtyStart DateEnd Date Natividad Milton MD [address] [place] [id number] Referring PhysicianFamily Medicine01/24/25documented as of this encounter
[2025-04-18 23:21] LABS: Hematocrit 38.6 % (36.0-48.0); Hemoglobin 12.9 g/dL (12.0-16.0); Immature Granulocytes Abs Auto 0.36 10^3/uL (0.00-0.03); Immature Granulocytes Pct Auto 2.8 % (0.0-0.5); Lymphocytes Absolute Auto 1.3 10^3/uL (1.2-3.8); Mean Corpuscular HGB Conc 33.4 g/dL (29.9-35.2); Mean Corpuscular Hemoglobin 29.5 pg (26.7-34.0); Mean Corpuscular Volume 88.1 fL (81.0-99.0); Platelet Count 579 10^3/uL (150-450); Red Blood Count 4.38 10^6/uL (4.20-5.40); White Blood Count 13.0 10^3/uL (4.0-11.0)
[2025-04-18 23:37] LABS: Alanine Aminotransferase 34 U/L (14-59); Albumin Globulin Ratio 0.7; Albumin Level 3.1 g/dL (3.4-5.0); Alkaline Phosphatase 98 U/L (46-116); Anion Gap 14.0; Aspartate Amino Transferase 29 U/L (15-37); Blood Urea Nitrogen 23.0 mg/dL (7.0-18.0); Calcium 9.6 mg/dL (8.5-10.1); Carbon Dioxide 23.6 mmol/L (21.0-32.0); Chloride 97 mmol/L (98-107); Estimated GFR (African America 59 (>=60 mL/min/1.73m^2); Estimated GFR (Non-African Ame 49 (>=60 mL/min/1.73m^2); Globulin 4.3 g/dL; Glucose 117 mg/dL (74-106); Potassium 4.6 mmol/L (3.5-5.1); Sodium 130 mmol/L (136-145); Total Protein 7.4 g/dL (6.4-8.2)
[2025-04-18 23:39] VITALS: O2SAT 95
--- NOTE | 2025-04-18 23:39 | PC.NURSE ---
oxygen initiated at 2LPM for patient comfort
== END 2025-04-19 00:59 | disposition home or self-care (01) ==
PROVIDERS: Emergency Provider Student in an Organized Health Care Education/Training Program; PCP Nurse Practitioner Family
DX: R07.81 Pleurodynia (principal); R06.02 Shortness of breath; Z98.890 Other specified postprocedural states; J44.9 Chronic obstructive pulmonary disease, unspecified; Z87.01 Personal history of pneumonia (recurrent); Z87.891 Personal history of nicotine dependence; Z99.81 Dependence on supplemental oxygen
CPT/HCPCS: 36415; 71275; 80053; 84484; 85025; 93005; 99285; Q9967